=== PATIENT | male | born 1955 | race Caucasian/White ===

== ENCOUNTER 2022-01-18 08:59 | Outpatient (CLI) | payer OTHER, SELFPAY | END 2022-01-18 09:00 | disposition home or self-care (01) | PROVIDERS: PCP Family Medicine; Visit Provider Nurse Practitioner Family | DX: L97.515 Non-pressure chronic ulcer of other part of right foot with muscle involvement without evidence of necrosis (principal); S80.811A Abrasion, right lower leg, initial encounter; I73.9 Peripheral vascular disease, unspecified; L97.422 Non-pressure chronic ulcer of left heel and midfoot with fat layer exposed; R26.9 Unspecified abnormalities of gait and mobility | CPT/HCPCS: 11042 ==

== ENCOUNTER 2022-01-31 08:52 | Outpatient (CLI) | payer OTHER, MEDICARE, SELFPAY | END 2022-01-31 08:53 | disposition home or self-care (01) | LOC: WOUND 08:52 | PROVIDERS: PCP Family Medicine; Visit Provider Nurse Practitioner Family | DX: L97.815 Non-pressure chronic ulcer of other part of right lower leg with muscle involvement without evidence of necrosis (principal); L89.613 Pressure ulcer of right heel, stage 3; S91.302A Unspecified open wound, left foot, initial encounter | CPT/HCPCS: 11042; 11043 ==

== ENCOUNTER 2022-02-14 09:59 | Outpatient (CLI) | payer OTHER, MEDICARE, SELFPAY | END 2022-02-14 10:00 | disposition home or self-care (01) | LOC: WOUND 09:59 | PROVIDERS: PCP Family Medicine; Visit Provider Nurse Practitioner Family | DX: L89.893 Pressure ulcer of other site, stage 3 (principal); L89.899 Pressure ulcer of other site, unspecified stage; L97.815 Non-pressure chronic ulcer of other part of right lower leg with muscle involvement without evidence of necrosis | CPT/HCPCS: 11042 ==

== ENCOUNTER 2022-02-21 08:58 | Outpatient (CLI) | payer OTHER, SELFPAY | END 2022-02-21 08:59 | disposition home or self-care (01) | PROVIDERS: PCP Family Medicine; Visit Provider Nurse Practitioner Family | DX: L89.613 Pressure ulcer of right heel, stage 3 (principal); L97.422 Non-pressure chronic ulcer of left heel and midfoot with fat layer exposed; L97.815 Non-pressure chronic ulcer of other part of right lower leg with muscle involvement without evidence of necrosis | CPT/HCPCS: 11042 ==

== ENCOUNTER 2022-02-28 08:53 | Outpatient (CLI) | payer OTHER, SELFPAY | END 2022-02-28 08:54 | disposition home or self-care (01) | PROVIDERS: PCP Family Medicine; Visit Provider Nurse Practitioner Family | DX: L89.613 Pressure ulcer of right heel, stage 3 (principal); L97.422 Non-pressure chronic ulcer of left heel and midfoot with fat layer exposed; L97.815 Non-pressure chronic ulcer of other part of right lower leg with muscle involvement without evidence of necrosis | CPT/HCPCS: 11042; 11045 ==

== ENCOUNTER 2022-03-07 09:53 | Outpatient (CLI) | payer OTHER, SELFPAY | END 2022-03-07 09:54 | disposition home or self-care (01) | LOC: LAB 09:54 | PROVIDERS: PCP Family Medicine; Visit Provider Nurse Practitioner Family | DX: S81.801A Unspecified open wound, right lower leg, initial encounter (principal) | CPT/HCPCS: 87070; 87186 ==

== ENCOUNTER 2022-03-07 13:20 | Outpatient (CLI) | payer OTHER, MEDICARE, SELFPAY | END 2022-03-07 13:21 | disposition home or self-care (01) | LOC: WOUND 13:20 | PROVIDERS: PCP Family Medicine; Visit Provider Nurse Practitioner Family | DX: L89.613 Pressure ulcer of right heel, stage 3 (principal); L97.515 Non-pressure chronic ulcer of other part of right foot with muscle involvement without evidence of necrosis; L97.815 Non-pressure chronic ulcer of other part of right lower leg with muscle involvement without evidence of necrosis; L97.422 Non-pressure chronic ulcer of left heel and midfoot with fat layer exposed; I73.9 Peripheral vascular disease, unspecified | CPT/HCPCS: 11042; 11043; 11046; 87070; 87186 ==

== ENCOUNTER 2022-03-21 08:57 | Outpatient (CLI) | payer OTHER, SELFPAY ==
--- NOTE | 2022-03-21 10:00 | CRLHL7_ITS ---
For Patients: As a result of the Century Cures Act, medical imaging exams and procedure reports are released immediately into your electronic medical record. You may view this report before your referring provider. If you have questions, please contact your health care provider. Indication: Pressure ulcer of the right heel, stage IV. Technique: Two views. Comparison: Foot radiographs 11/30/2020. Findings/Impression: Deep posterior heel ulceration that likely extends to the bone. No discernible osseous destruction or erosion on radiograph. Generalized osseous demineralization. If concern for osteomyelitis consider MRI for further evaluation. Dictated by Derrick Francois MD @ 03/21/2022 10:51:35 AM (Electronically Signed)
== END 2022-03-21 08:58 | disposition home or self-care (01) ==
PROVIDERS: PCP Family Medicine; Visit Provider Nurse Practitioner Family
DX: L89.614 Pressure ulcer of right heel, stage 4 (principal); L97.422 Non-pressure chronic ulcer of left heel and midfoot with fat layer exposed; S80.811A Abrasion, right lower leg, initial encounter; I73.9 Peripheral vascular disease, unspecified
CPT/HCPCS: 11042; 11043; 11045; 11046; 73650; 97597

== ENCOUNTER 2022-03-29 09:01 | Outpatient (CLI) | payer OTHER, SELFPAY ==
--- NOTE | 2022-03-29 15:00 | CRLHL7_ITS ---
For Patients: As a result of the Century Cures Act, medical imaging exams and procedure reports are released immediately into your electronic medical record. You may view this report before your referring provider. If you have questions, please contact your health care provider. Indication: Pressure ulcer of the right heel stage IV. Technique: CT of the right ankle following the intravenous administration of 65 cc Isovue 370.: Sagittal reformations were performed. Please note that all CT scans at this facility use dose modulation, iterative reconstruction, and/or weight-based dosing when appropriate to reduce radiation dose to as low as reasonably achievable. Comparison: Radiographs 03/21/2022 and 11/30/2000. Findings: Postsurgical change of posterior calcaneal resection. There is a medial posterior pressure ulcer which extends to the residual calcaneus medially. No evidence of osseous erosion or destruction. No fracture. Diffuse generalized osseous demineralization. Talonavicular osteoarthritis. Mild tibiotalar osteoarthritis. Diffuse subcutaneous soft tissue swelling throughout the lower leg, ankle, and foot. No subcutaneous gas. No radiopaque foreign bodies. Vascular calcifications. Impression: 1. Postsurgical change of posterior calcaneal resection. No osseous erosion or destruction to have diagnosis osteomyelitis on CT. However, the posterior medial ankle pressure ulcer extends all the way to the residual calcaneus posterior medially (series 6, image 42). 2. Diffuse nonspecific edema throughout lower leg, ankle, and foot. Correlate for cellulitis. No subcutaneous gas. Please note that all CT scans at this facility use dose modulation, iterative reconstruction, and/or weight-based dosing when appropriate to reduce radiation dose to as low as reasonably achievable. Dictated by Derrick Francois MD @ 03/30/2022 10:09:11 AM (Electronically Signed)
[2022-03-29 16:06] LABS: Creatinine* 0.5 mg/dL (0.5-1.5); Estimated Glomerular Filt Rate 111 ml/min
== END 2022-03-29 09:02 | disposition home or self-care (01) ==
PROVIDERS: PCP Family Medicine; Visit Provider Nurse Practitioner Family
DX: L89.614 Pressure ulcer of right heel, stage 4 (principal); L97.422 Non-pressure chronic ulcer of left heel and midfoot with fat layer exposed; S80.811A Abrasion, right lower leg, initial encounter
CPT/HCPCS: 11042; 11043; 11045; 11046; 36415; 73701; 82565; Q9967

== ENCOUNTER 2022-04-04 10:38 | Outpatient (CLI) | payer OTHER, SELFPAY ==
--- OUTSIDE RECORDS SUMMARY | 2022-04-04 10:55 | XMS_ITS | Encounter Summary ---
:1955 Author Organization [facility] Address [address] [place] [address] Phone Care Team Providers Name Role Phone Lila Clay PT Unavailable Reason for Visit Prior Authorization (Routine) - Closed Specialty Diagnoses / Procedures Referred By Contact Refer red To Contact Physical Therapy / Diagnoses Quadriplegia () At high risk for skin breakdown Impaired mobility Provider, Outside Lila Clay, PHYSICAL MEDICINE AND Procedures PT TREATMENT PLAN OUTSIDE PROVIDER PT REHAB [address] [address] Phone: Fax: Referral ID Status Reason Start Date Expiration Date Visits Requ ested Visits Authorized [id number] Closed 05/05/2021 01/20/2022 12 12 Encounter Details Date Type Department Care Team Description 08/11/2021 Hospital Encounter Clinic & Specialty Provider, [place] [address] No Show Center Router Operator Radial apy Lila Clay, PT [address] [place] [address] Social History Tobacco Use Types Packs/Day Years Used Date Smoking Tobacco: Former Cigarettes Cigars Smokeless Tobacco: Never Alcohol Use Standard Drinks/Week Comments Yes 3.3 (1 standard drink = 0.6 oz pure alco hol) once in while Sex Assigned at Date Recorded Not on file documented as of this encounter Medications at Time of Discharge Medication Sig Dispensed Refills Start Date End Date oxybutynin (DITROPAN XL) SMARTSIG:By Mouth 0 03/2021 15 mg oral tablet 24 HR propantheline TAKE 1 TABLET BY 540 tablet 3 03/26/201909/02 (PRO-BANTHINE) 15 mg oral MOUTH THREE TIMES tablet DAILY. MAY TAKE 2 TABLETS 3 TIMES DAILY FOR BLADDER SPASMS documented as of this encounter Progress Notes Lila Clay, PT - 08/11/2021 8:00 AM CST Pt cancelled today's scheduled PT treatment session, the lift on his accessible van is broken and heis unable to drive to today's appt. Rescheduled, per his request, with this therapist. Lila Clay PT [facility] License: #[id number] Pager: [phone] Office: [phone] F TECHNICIAN documented in this encounter Plan of Treatment Not on filedocumented as of this encounter Visit Diagnoses Not on filedocumented in this encounter Care Teams Case Resolution Specialist Relationship Specialty Start Date End Date Lila Clay, PT Physical Therapist Physical Therapy 04/05/21 [address] [place] [address] documented as of this encounter
--- OUTSIDE RECORDS SUMMARY | 2022-04-04 10:55 | XMS_ITS | Encounter Summary ---
:1955 Author Organization [facility] Address [address] [place] [address] Phone Care Team Providers Name Role Phone Lila Clay PT Unavailable Reason for Visit Prior Authorization (Routine) - Auth Not Needed Specialty Diagnoses / Procedures Referred By Contact Refer red To Contact Physical Medicine and Diagnoses Quadriplegia, unspecified Quadriplegia, C5-C7 incomplete Muscle spasticity [M62.838] (Reminder letter sent 09/29/21 cl) Zev Alvarez MD Rehab / NEUROLOGY [facility] Procedures [facility] - [facility] [address] [address] [place] [address] Phone: Fax: Referral ID Status Reason Start Date Expiration Date Visits V isits Requested Authorized [id number] Auth Not 1 2 Needed Encounter Details Date Type Department Care Team Description 10/21/2021 Hospital Encounter Clinic & Specialty Zev Alvarez , Non Billable Center [facility] [address] [place] [address] [address] [place], [place] [phone] (Wo rk) Social History Tobacco Use Types Packs/Day Years Used Date Smoking Tobacco: Former Cigarettes Cigars Smokeless Tobacco: Never Alcohol Use Standard Drinks/Week Comments Yes 3.3 (1 standard drink = 0.6 oz pure alco hol) once in while Sex Assigned at Date Recorded Not on file COVID-19 Exposure Response Date Recorded In the last 10 days, have you been in contact with No / Unsu re 10/21/2021 9:12 AM CDT someone who was confirmed or suspected to have Coronavirus/COVID-19? documented as of this encounter Medications at Time of Discharge Medication Sig Dispensed Refills Start Date End Date nitrofurantoin (MACRODANTIN) Take 50 mg by mouth 0 08/25/2021 50 mg oral capsule daily. 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 He was seen by JUSTIN Israel on 09/02/21 and was noted to have contracture of his right knee and was referred for Botox to determine if this could be beneficial for his right leg. He notes that he had a surgical resection of his right ankle around 2018 and since then, noted inability to extend out his right leg. This has been bothersome as he cannot stand (such as in a standing frame with PT). He did receive a trial of 200 units of botox to his right leg on 07/08/2019 at [facility] (Administered as 100 BF, 50 SM, [address] It was noted on exam that his MAS of knee extension was 3.Randy does not feel that it helped at all. It does not interfere with his cares of doing straight cathfor his bladder. He denies any pain or spasms in either of his legs. He does note that his right leg adducts in more and rubs against his knees when he is in the chair.When he is lying down his right leg turns out more and he doesn't have the rub. He has not trialed any items such as a spacer foam pads (although does describe using some pads for positioning at night). Current Spasticity/Dystonia Medications: none Bleeding Risk: none Currently on antibiotics: nitrofurantoin 50 mg daily to reduce UTI Vaccines in the past 2 weeks: none Objective: Gen: NAD, awake and alert, sitting in wheelchair HEENT: AT/NC, FAWAD, no obvious thyromegaly Resp: Nonlabored at rest, able to speak in full sentences Neurological: CN II-XII grossly intact MS: BUE are greater than antigravity. BLE are flaccid. Reflexes: no ankle clonus noted Skin: no erythema, eccymoses, or other concerning signs of infection over injection sites noted MSK: BLE are noted to be very atrophic with reduced muscle bulk. Right leg is noted to be adducted past midline. Passively, right knee was only able to be extended to approx 45 degrees of Knee Flexion, without any change in tone noted in the remaining range. -Hip Flexion: 0/4 B -Hip Extension: NT -Hip Abduction: 1+/4 B -Hip Adduction: 0/4 B -Hip IR: 0/4 B -Hip ER: 2/4 B -Knee Flexion: 0/4 B -Knee Extension: 4/4 R, 1+/4 L -Dorsiflexion: 0/4 B -Plantarflexion: 0/4 B Assessment and Plan: Khanh Rene is a 66 year old gentleman with incomplete C7 AIS B since 1988 with complication sof neurogenic bladder, bowel, skin injuries, autonomic dysreflexia, and contracture of his right knee. On exam today, the right knee is only able to extend to 45 degrees of flexion without any changein tone in the remaining range. This is most likely a contracture given that he does have tone in other muscle groups. As such, injection with botulinum toxin would not be of significant benefit at this time, especially given that a previous dose in 2019 did not demonstrate any change. Surgical options were discussed and he is not interested in pursuing surgery at this time. Randy does have some increased adductor tone to his right thigh and discussed possible botulinum toxins there to prevent further rubbing of his knees together, however, as he has not trialed any foam spacers or modifications, it was recommended that botulinum toxin be kept as a back-up, in case either of those options remained. Randy was agreeable to this plan and plans to follow up with JUSTIN Israel for further management of his chronic SCI cares. No unanswered questions. 1. Right Knee Contracture: not recommended for botulinum toxin due to unlikelihood of benefit. 2. Right Thigh Adductor hypertonicity: consider botulinum toxin if noting skin injuries to medial knees or problems with straight cathing/ADLs due to increased tone. Pt was seen and discussed with Dr. Kim Ash, PGY-5, [facility] Brain Injury Fellow Pager# [phone] Associated attestation - Zev Alvarez MD - 10/21/2021 3:23 PM CDT FACULTY NOTE I saw and evaluated the patient today, 10/21/2021. I discussed with the fellow and agree with the fellow???s findings and plan documented in the fellow's note from above. Any revisions by me are documented. Zev Alvarez MD, 10/21/2021 3:23 PM documented in this encounter Plan of Treatment Not on filedocumented as of this encounter Visit Diagnoses Not on filedocumented in this encounter Care Teams Engineering Psychologist Relationship Specialty Start Date End Date Lila Clay, PT Physical Therapist Physical Therapy 04/05/[address] [place] [address] documented as of this encounter
--- OUTSIDE RECORDS SUMMARY | 2022-04-04 10:55 | XMS_ITS | Encounter Summary ---
:[address] [facility] Address [address] [place] [address] Phone Care Team Providers Name Role Phone Lila Clay PT Unavailable Encounter Details Date Type Department Care Team Description 10/21/2021 Travel Social History Tobacco Use Types Packs/Day Years [...] have Coronavirus/COVID-19? documented as of this encounter Plan of Treatment Not on filedocumented as of this encounter Visit Diagnoses Not on filedocumented in this encounter Care Teams Neuro Psych Sales Specialist Relationship Specialty Start Date End Date Lila Clay, PT Physical Therapist Physical Therapy 04/05/21 [address] [place] [address] documented as of this encounter
--- OUTSIDE RECORDS SUMMARY | 2022-04-04 10:55 | XMS_ITS | Encounter Summary ---
:1955 Author Organization [facility] Address [address] [place] [address] Phone Care Team Providers Name Role Phone Provider, Outside Primary Care Provider Unavailable Encounter Details Date Type Department Care Team Description 01/02/2018 Nurse Triage Clinic [facility] Center Farida Dueñas, supervisor telephone information Clinic [address] [address] [place], [place] [address] Social History Tobacco Use Types Packs/Day Years Used Date Smoking Tobacco: Former Cigarettes Cigars Smokeless Tobacco: Never Alcohol Use Standard Drinks/Week Comments Yes 3.3 (1 standard drink = 0.6 oz pure alco hol) once in while Sex Assigned at Date Recorded Not on file documented as of this encounter Plan of Treatment Not on filedocumented as of this encounter Visit Diagnoses Not on filedocumented in this encounter Care Teams Optician Relationship Specialty Start Date End Date Provider, Outside PCP - General 03/13/09 10/22/18 [place] [address] documented as of this encounter
--- OUTSIDE RECORDS SUMMARY | 2022-04-04 10:55 | XMS_ITS | Clinical Summary ---
:1955 Author Organization [facility] [place] [address] Care Team Providers Name Role Phone Ana Mayers Unavailable Alex Mata MD Primary Care Provider [phone] Allergies Active Allergy Reactions Severity Noted Date Comments Blood-Group Specific Other - Describe In 04/19/2021 Patient has Levi saucedo Substance Comment Field (Fya) antibody . Blood products may be delayed. Dra renee patient 24 hour s prior to transfusion. Fo r [employer] testing, draw o ne red top and two purple top tube s for all Type and Sc reen orders. Cephalexin Diarrhea, Vomiting 01/02/2007 11/19/15: pt states not a true dinh rgy Shellfish Containing Diarrhea, Nausea And 09/09/2010 Iodine in products Products Vomiting Medications Medication Sig Dispensed Refills Start Date End Date Status hospital As directed. 1 Device 0 12/31/2019 Active bedIndications: Stage Hospital bed, IV pressure ulcer of w/mattress, Semi sacral region (HC) Electric, 1/2 rails, SHAGUFTA: 99mo. oxybutynin (DITROPAN Twice A Day 0 05/13/2020 Active XL) 15 mg CR tablet rx Take 1 tablet by 14 tablet 0 09/22/2020 Ac tive trimethoprim-sulfametho mouth 2 times xazole, 160-800 mg, daily. (BACTRIM DS, SEPTRA DS) tablet (ED DC MED)Indications: Recurrent UTI nitrofurantoin Take 50 mg by 0 A ctive macrocrystaL mouth once (MACRODANTIN) 50 mg daily. capsule clopidogreL (PLAVIX) 75 Take 1 Tablet 120 Tablet 0 04/19/2021 Active mg tabletIndications: (75 mg) by mouth PAD (peripheral artery once daily. disease) (HC) aspirin (ECOTRIN) 81 mg Take 1 Tablet 120 Tablet 0 04/19/2021 Active enteric coated (81 mg) by mouth tabletIndications: PAD once daily with (peripheral artery a meal. disease) (HC) Active Problems Problem Noted Date S/P flap graft 03/06/2020 Stage IV pressure ulcer of sacral region 12/02/2019 Neurogenic orthostatic hypotension 05/08/2016 Normocytic anemia 05/03/2016 S/P colostomy 03/14/2016 MRSA (methicillin resistant Staphylococcus aureus) Overview: sacral ulcer Pacemaker battery depletion 12/21/2012 S/P dual chamber permanent pacemaker generator change on 12/21/2012 12/21/2012 Dual Chamber Pacemaker 07/14/2008 07/15/2008 Overview: Placed for severe bradycardia with high degree AVB. Bradycardia 07/14/2008 Overview: -probable 3rd degree AVB -requiring ongoing transcutaneous pacin g 07/14/2008 Syncope 07/13/2008 07/14/2008 Overview: Associated with complete heart block 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 1988 Occassional UTI 07/14/2008 Overview: -chronic macrodantin therapy QOD Family history of ischemic heart disease 07/14/2008 History of tobacco use 07/14/2008 Overview: -occassional cigar Resolved Problems Problem Noted Date Resolved Date Leg wound, right 12/24/2019 02/25/2020 Open wound of left heel 12/24/2019 02/25/2020 Pressure ulcer of ischial area, stage 4 12/15/2015 02/25/2020 Stage III pressure ulcer of left heel 12/01/2015 Stage III pressure ulcer of left buttock 11/19/2015 01/29/2016 Decubitus ulcer of right ankle, stage 3 10/02/2014 01/29/2016 Stage IV pressure ulcer of hip 11/15/2011 6 Overview: Underwent flap closure of left IT pressu re ulcer by Dr. Bubba Jerez 06/13/11. Pressure ulcer stage IV 11/15/2011 11/19/2015 Overview: Coccyx - first noted 10/02. Osteomyelitis, chronic, pelvic region 05/24/2011 Overview: Noted on bone scan 04/07/11 involving bot h ischial regions Flap repair of bilateral ischial ulcers 06/13/2011 Immunizations Name Administration Dates Next Due Hepatitis A (Adult) 11/19/2004, 05/01/2003, 09/30/2002 Hepatitis B (Adult) 03/30/2007, 09/01/2006, 11/19/2004 Inactivated Polio Vaccine 11/19/2004 Influenza Virus, Unspecified 05/24/2006 Influenza, IIV3 (Age 6-35 mos) 05/24/2012, 03/25/2011 Influenza, IIV3 (Age >=3 years) 03/25/2011 Td (Age >=7 Years) 03/21/1997 Tdap 12/26/2008, 09/01/2006 Typhoid, Unspecified 09/01/2006, 09/30/2002 Zoster (Zostavax-ZVL, live) 01/29/2015 Family History Medical History Relation Name Comments Hypertension Brother 1 Stroke Brother 1 Heart Disease Brother 2 2 stents placed 03/2019 Heart Disease Father pacer placed. Hyperlipidemia Father Arthritis Mother Heart Disease Mother Other Other heart problems o n pat and mat side & oldest brother Relation Name Status Comments Brother 1 Alive Brother 2 Alive Brother 3 Alive Father (Age 82) Heart Disease? Mother Alive Other Sister 1 Alive Sister 2 Alive Social History Tobacco Use Types Packs/Day Years Used Date Former Smoker Cigars Quit: 12/24/18 99 Smokeless Tobacco: Never Used Tobacco Cessation: Counseling Given: Yes Comments: occ cigar which is rarely Alcohol Use Standard Drinks/Week Comments Yes 0 (1 standard drink = 0.6 oz pure alcoho l) occ Alcohol Habits Answer Date Recorded How often do you have a drink containing alcohol? 2-3 times a week 12/11/2018 How many drinks containing alcohol do you have on a 1 or 2 12/11/2018 typical day when you are drinking? How often do you have six or more drinks on one Never 12/11/2018 occasion? Comment: valerie 12/24/2008 Sex Assigned at Date Recorded Not on file Obstetrics History Last Filed Vital Signs Vital Sign Reading Time Taken Comments Blood Pressure 97/63 04/28/2021 11:04 AM CDT Pulse 85 04/28/2021 11:04 AM CDT Temperature 35.2 ??C (95.4 ??F) 04/19/2021 7:02 AM CDT Respiratory Rate 16 04/19/2021 12:30 PM CDT Oxygen Saturation 95% 04/28/2021 11:04 AM CDT Inhaled Oxygen Concentration - - Weight 62.6 kg (138 lb) 04/19/2021 6:40 AM CDT Height 182.9 cm (6') 04/19/2021 6:40 AM CDT Body Mass Index 18.72 04/19/2021 6:40 AM CDT Plan of Treatment Health Maintenance Due Date Last Done Comments Hepatitis C screening for age 18-79 1972 Colonoscopy through age 75 1999 AAA screening age 55-77 2009 Lipids for age 45-75 07/14/2013 07/14/2008 Zoster (shingles) series for age 50+ 03/26/2015 01/29/2015 (2 of 3) Depression screening for age 12+ 08/15/2018 08/15/2017 Tetanus booster 12/26/2018 12/26/2008, 09/01/2006, 03/21/1997 Medicare Wellness for age 65+ 2019 Pneumococcal series for age 65+ (1 - 2019 PCV) COVID-19 vaccine series (3 - Booster 02/11/2021 09/14/2020, 08/20/2020 for Pfizer series) Influenza for age 65+ 03/24/2022 03/25/2011, 05/24/2006 Tdap Completed 12/26/2008, 09/01/2006 Medical Devices Implanted Type Area Labor Law Professor Device Shelf Model / Identifier Expiration Serial / Date Lot Standard Pacemaker-12/21/2012 Standard Medtronic [id number] / Implanted: 12/21/2012 by Judson Jenkins MD (Quantity not on file) Pacemaker [id number] / Results Not on filefrom Last 3 Months Additional Health Concerns Infection Onset Date Last Indicated MRSAComment: Order contact precautions. 12/17/2015 12/17/2015 8.14.20 pt has wound ineligible for screening cultures Nares surveillance cultures needed to cl ear patient if <12 months since positive culture. If >12 months since positive culture, precautions can be discontinued if patient has no MRSA risk factors. #1 +MRSA n/a exclusions for contact precaution dis continuation (if > 12 months since positive culture): resides in acute/detention care, receiving hemodialysis, has chronic open wounds/skin damage, has long-te rm percutaneous indwelling medical devic es Exclusions for nares collection (if <12 months since positive culture) include all of the previous exclusions plus patients on antibiotics 7 days prior to collection Insurance Payer Benefit Plan / Subscriber ID Effective Dates Phone Addre ss Type Group WC WORKERS COMP [facility] [id number] 1989-Prese C/O [place] [employer] [address] [place] [address] WC WORKERS COMP [facility] [id number] 1989-Prese C/O [employer] [address] [place] [address] MEDICARE PART A - MEDICARE PART [id number] 1991-Presen ATTN: CLAIMS HB USE ONLY A HB ONLY t [address] [place] [address] [facility] MR [id number] 2020-Presen [address] [address] [place] [address] Khanh Rene Workers Comp Self 1955 [id number] [employer] [place] [id number] Khanh Rene Workers Comp Self 1955 [id number] [employer] [place] [address] Khanh Rene Personal/Family Self 1955 [id number] [employer] [address] [place] [id number] Advance Directives Latest Code Status on File Code Status Date Activated Date Inactivated Comments Full Code 03/05/2020 6:59 AM 03/09/2020 8:07 PM Code Status Discussion: Not Discussed Full Code 04/25/2016 3:57 PM 05/10/2016 8:47 PM Full Code 2016 6:44 AM 03/14/2016 5:37 PM Full Code 12/16/2015 12:49 PM 12/25/2015 1:24 PM Full Code 12/15/2015 3:46 PM 12/16/2015 12:49 PM Care Teams Fermenter Helper Relationship Specialty Start Date End Date Alex Mata MD PCP - General Family Practice 02/04/201999 [place] [address] Ana Mayers Nurse Practitioner 03/02/[address] [place] [address]
--- OUTSIDE RECORDS SUMMARY | 2022-04-04 10:55 | XMS_ITS | Encounter Summary ---
:1955 Author Organization [facility] [place] Address [address] [place] [address] Phone Care Team Providers Name Role Phone Provider, Outside Primary Care Provider Unavailable Reason for Visit Reason Comments Follow-up NEUROGENIC BLADDER Encounter Details Date Type Department Care Team Description 09/15/2016 Office Visit [facility] [place] [facility] Monty Garcia Neur ogenic bladder Yordy FALCON (Primary Dx) [address] , [address] [place] [address] [address] [place], [place] [phone] Social History Tobacco Use Types Packs/Day Years Used Date Smoking Tobacco: Former Cigarettes Cigars Smokeless Tobacco: Never Alcohol Use Standard Drinks/Week Comments Yes 3.3 (1 standard drink = 0.6 oz pure alco hol) once in while Sex Assigned at Date Recorded Not on file documented as of this encounter Last Filed Vital Signs Vital Sign Reading Time Taken Comments Blood Pressure 129/74 09/15/2016 8:09 AM CHILDCARE PROVIDER Pulse 75 09/15/2016 8:09 AM CHILDCARE PROVIDER Temperature 36.2 ??C (97.1 ??F) 09/15/2016 8:09 AM CHILDCARE PROVIDER Respiratory Rate - - Oxygen Saturation - - Inhaled Oxygen Concentration - - Weight - - Height - - Body Mass Index - - documented in this encounter Progress Notes Monty Garcia MD - 09/15/2016 8:00 AM CST Images from the original note were not included. Urology Clinic - Follow-up Visit Khanh Rene : 1955 Sex: male 09/15/2016 08:19 Date of Visit: 09/15/2016 Primary care provider: Outside Provider HPI: This 61 y.o. male is being seen at this time for follow-up. He is a former patient of my now retiredcollmedardo Savage, and I am meeting him for the first time today. He has a history of paraplegia from a fall in 1988. 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 He has been managing his bladder in a steady way for many years now. He self caths depending on how much he is drinking, but usually about 6 times per day, very seldom will he have leakage between. He uses a 14 Fr straight catheter, and has for years. Patient denies foul smelling urine or fevers. Patient has had several admissions at [facility] for decubitus ulcers in the last year. He is s/p colostomy and debridement and closure of left ischial tuberosity wound by plastic surgery. Patient reports that is ulcer has healed. Patient also needs refills of medications. States that he has been on Macrobid prophylaxis (every other day dosing) for about 27 years. A review of the patient's chart was completed pertaining to today's clinic visit. Past Medical History Diagnosis Date ??? Autonomic dysreflexia H/o ??? DVT 1983 ??? Neurogenic bladder H/o 1SL ??? Neurogenic bowel ??? 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 Screening for prostate cancer 04/01/2010 Past Surgical History Procedure Laterality Date ??? Colostomy 02/2016 Current Outpatient Prescriptions on File Prior to Visit Medication Sig Dispense Refill ??? propantheline (PRO-BANTHINE) 15 mg oral tablet TAKE 1 TABLET BY MOUTH THREE TIMES DAILY. MAY TAKE 2 TABLETS 3 TIMES DAILY FOR BLADDER SPASMS 90 tablet 0 ??? nitrofurantoin (MACRODANTIN) 50 mg oral capsule Take 1 capsule (50 mg) by mouth Every forty-eight hours. 15 capsule 0 No current facility-administered medications on file prior to visit. Allergies: Amoxicillin-pot clavulanate; Cephalexin monohydrate; Iodine tincture; and Shellfish allergy Family History: No pertinent urologic family history. Social History: Social History Substance Use Topics ??? Smoking status: Former Smoker Types: Cigars, Cigarettes ??? Smokeless tobacco: Never Used ??? Alcohol use 2.0 oz/week 4 Shots of liquor per week Comment: once in while ROS: A complete 10 point ROS neg except for that stated in HPI PE Vitals: 09/15/16 0809 BP: 129/74 Cuff Location: Left Arm Patient Position: Sitting Cuff Size: Adult - regular Pulse: 75 Temp: 36.2 ??C (97.1 ??F) General: Well-appearing, sitted in a wheelchair HEENT: Head AT/NC, mucous membranes moist, neck supple, no thyromegaly Neuro: A/O x 3 Pulmonary: Normal respiratory effort Abdominal: soft, non-tender, non-distended. Left colostomy in place. Lymphatic: No LE edema Skin: No obvious lesions Psych: Normal mood and affect Labs: Reviewed PSA: PSA Diagnostic Date Value Ref Range Status 09/19/2001 0.5 0.00 - 4.00 NG/ML Final PSA Screen Date Value Ref Range Status 04/01/2010 1.25 0.00 - 4.00 NG/ML Final 01/24/2008 2.38 0.00 - 4.00 NG/ML Final Urinalysis: Lab Results Component Value Date/Time PROTEINUR NEGATIVE 09/03/2012 1422 GLUUR NEGATIVE 09/03/2012 1422 KETONES NEGATIVE 09/03/2012 1422 BLOODUA NEGATIVE 09/03/2012 1422 BILIUA NEGATIVE 09/03/2012 1422 SPG 1.016 09/03/2012 1422 WBCUR 6-20 (A) 09/03/2012 1422 RBCUR 0-5 09/03/2012 1422 APPEAR CLEAR 09/03/2012 1422 NITRITE NEGATIVE 09/03/2012 1422 COLOR YELLOW 09/03/2012 1422 MICRO 01/29/2001 1537 SQEPITH 2+ 09/03/2012 1422 TRANEPI 1+ 01/29/2001 1537 UROBILINOGIN 1.0 09/03/2012 1422 LET SMALL (A) 09/03/2012 1422 Blood Labs: Lab Results Component Value Date/Time WBC 5.3 09/17/2010 0944 HGB 11.8 (L) 09/17/2010 0944 HCT 36.4 (L) 09/17/2010 0944 PLT 308 09/17/2010 0944 Electrolytes: Lab Results Component Value Date CR 0.29 (L) 01/24/2008 CR <0.5 08/18/2005 Imaging: All of the following imaging and radiology reports and images personally reviewed. No new imaging. Patient will set up an appointment for his renal ultrasound Assessment/Plan: 61 y.o. male with a history of paraplegia, neurogenic bladder here for follow- up. He is doing well overall. Creatinine from care everywhere 04/28/2016 was 0.54. Discussed Macrobid prophylaxis. Studies have shown low risk of infection without antibiotic prophylaxis. Also patient is at risk for bacterial resistance with chronic antibiotic prophylaxis. Patient is agreeable to stopping Macrobid. He will call if he gets any symptoms of a UTI. Will consider restarting prophylaxis if he gets UTIs off prophylaxis. - Did not recommend rechecking a PSA given his other medical issues. -Follow-up in 1 year -Carry out renal ultrasound Almita Aguilar MBBS, 09/15/2016 8:19 AM I saw the patient, reviewed and discussed the patient care with the resident at the time of the visit. Please see resident note in this encounter for details. I agree with the plan. Any changes by me have been noted. Monty Garcia MD, 09/15/2016 9:14 AM Urology Staff Pager: [phone] DCARE PROVIDER documented in this encounter Plan of Treatment Not on filedocumented as of this encounter Visit Diagnoses Diagnosis Neurogenic bladder - Primary Neurogenic bladder, NOS documented in this encounter Care Teams Accounting Advisory Services Manager Relationship Specialty Start Date End Date Provider, Outside PCP - General 03/13/09 10/22/18 [place] [address] documented as of this encounter
--- OUTSIDE RECORDS SUMMARY | 2022-04-04 10:55 | XMS_ITS | Encounter Summary ---
:1955 Author Organization [facility] Address [address] [place] [address] Phone Care Team Providers Name Role Phone Provider, Outside Primary Care Provider Unavailable Reason for Visit Reason Onset Date Comments Refill Request 09/05/2016 Encounter Details Date Type Department Care Team Description 09/05/2016 Refill [facility] [place] Divya Caraballo RN Refill Request [address], [address] [place], [place] [address] [place] [address] Social History Tobacco Use Types Packs/Day Years [...] this encounter Visit Diagnoses Diagnosis Neurogenic bladder Neurogenic bladder, NOS documented in this encounter Care Teams Wool Washer Relationship Specialty Start Date End Date Provider, Outside PCP - General 03/13/09 10/22/18 [place] [address] documented as of this encounter
--- OUTSIDE RECORDS SUMMARY | 2022-04-04 10:55 | XMS_ITS | Encounter Summary ---
:1955 Author Organization [facility] Address [address] [place] [address] Phone Care Team Providers Name Role Phone Provider, Outside Primary Care Provider Unavailable Reason for Visit Reason Onset Date Comments Medication Refill 11/11/2016 propantheline (PRO-B ANTHINE) Encounter Details Date Type Department Care Team Description 11/11/2016 Refill [facility] [place] Urology Clinic Selena Garcia MD Medication Refill [place] [address] [facility] P5 (propantheline [address], [address] [place], [place] (PRO-BANTHINE) ) [place], [place] [phone] (Wo rk) Social History Tobacco Use Types Packs/Day Years Used Date Smoking Tobacco: Former Cigarettes Cigars Smokeless Tobacco: Never Alcohol Use Standard Drinks/Week Comments Yes 3.3 (1 standard drink = 0.6 oz pure alco hol) once in while Sex Assigned at Date Recorded Not on file documented as of this encounter Miscellaneous Notes Telephone Encounter - Marni Chadwick RN - 11/11/2016 1:03 AM CDT D: Patient called. See attached notes below. A: Will route for plan and follow up. R/P: Pending. Summary: patient requesting larger quantity of med Patient: Khanh Rene ??: 1955 ?? Caller is requesting a medication refill. Name of Medication(s): ??propantheline (PRO-BANTHINE) 15 mg oral tablet Pharmacy Name and Location: [facility] [address] [place] [phone] - [address] [place] [address] Phone number for return call: .[phone] Did caller contact the pharmacy? yes: pharmacy told patient to call clinic Patient is using 2 pills 3x daily and is not having enough pills to carry him over for the next month supply since quantity is only 90 patient would like to have a larger quantity prescribed so he can take medication until the end of the month documented in this encounter Plan of Treatment Not on filedocumented as of this encounter Visit Diagnoses Not on filedocumented in this encounter Care Teams Fisher Eel Relationship Specialty Start Date End Date Provider, Outside PCP - General 03/13/09 10/22/18 [place] [address] documented as of this encounter
--- OUTSIDE RECORDS SUMMARY | 2022-04-04 10:55 | XMS_ITS | Encounter Summary ---
:1955 Author Organization [facility] Address [address] [place] [address] Phone Care Team Providers Name Role Phone Lila Clay PT Unavailable Reason for Visit Prior Authorization (Routine) - Closed Specialty Diagnoses / Procedures Referred By Contact Refer red To Contact Physical Therapy / Diagnoses Quadriplegia () At high risk for skin breakdown Impaired mobility Provider, Outside Lila Clay, PHYSICAL MEDICINE AND Procedures PT TREATMENT PLAN OUTSIDE PROVIDER [facility] [address] [address] Phone: Fax: Referral ID Status Reason Start Date Expiration Date Visits Requ ested Visits Authorized [id number] Closed 05/05/2021 01/20/2022 12 12 Encounter Details Date Type Department Care Team Description 06/09/2021 Hospital Encounter Clinic & Specialty Provider, Outside OUTSIDE PROVIDER [address] Director Money apy Lila Clay, PT [id number] [place] [address] Social History Tobacco Use Types Packs/Day Years Used Date Smoking Tobacco: Former Cigarettes Cigars Smokeless Tobacco: Never Alcohol Use Standard Drinks/Week Comments Yes 3.3 (1 standard drink = 0.6 oz pure alco hol) once in while Sex Assigned at Date Recorded Not on file documented as of this encounter Medications at Time of Discharge Medication Sig Dispensed Refills Start Date End Date propantheline TAKE 1 TABLET BY 540 tablet 3 03/26/201909/02 (PRO-BANTHINE) 15 mg oral MOUTH THREE TIMES tablet DAILY. MAY TAKE 2 TABLETS 3 TIMES DAILY FOR BLADDER SPASMS documented as of this encounter Progress Notes Lila Clay, PT - 06/09/2021 8:00 AM CST Images from the original note were not included. PHYSICAL THERAPY DAILY NOTE Khanh Rene : 1955 Gender: male Date of Service: 06/09/2021 Start of Care: 05/05/21 Visit #: 3 Missed Appointments: 0 Referring Diagnosis: Quadriplegia Stage IV pressure ulcer of sacral region S/p flap graft ?? Treatment Diagnosis: Quadriplegia () [G82.50] ??- Primary At high risk for skin breakdown [Z91.89] Impaired mobility [Z74.09] ?? Certification Period: From 05/05/21 to 08/04/21 ?? Onset Date: 04/16/21 (Physician Referral Date) Dates of Recent Hospitalization: None Referring Provider: MD Yamile Alves, HANDSTITCHING MACHINE COLLAR FELLER ?? Current Precautions/Contraindications: At high risk for skin breakdown, s/p flap surgery, current pressure injuries on feet [facility] [place] Supervisor Coffee: no Patient gave two identifiers for Check 2 for Safety Total Treatment Time: 70 Min Pain: No significant complaints during session S: Pt presents to his PT session in his MWC, independently. Also present: Matthew Ricketts/[employer]. Last 30 min of the session, patient's QRC (Raquel Gamino, RN, PHN, MA P: [phone], F: [phone]) No significant changes; still attends wound clinic for B foot injuries weekly - missed yesterday so will be seen later this week. Pt agreed that he would like to try to adjust 1-2 items at a time; assess tolerance, and then move forward with additional changes as appropriate. Noticed that additional 'dump' is 'different' but tolerable. O: [Billable Units/Time] (97135) Wheelchair Management: 70 min Pt remained in MW throughout today's session. +Minimally adjusted tension adjustable backrest - appeared that it had lumbar support added to it, however this was caused by NO contact from patient's lumbar region (so this part of the tension adjustable backrest was still taught/new) whereas the upper portion that patient leans heavily on is hammocking. Assessed additional items to trial to improve overall positioning: +Add seat stabilizer +Increase seat depth - same cushion style, by 2? *Will request a demo from [facility], as PT looked and did not have size/style as demo in clinic +With increased seat depth/cushion, need to discuss options for: front seat frame may need to be longer, to allow footrests to swing in/out as well as lift off (2 of cushion will currently inhibit this). Also, could change back canes to be angle adjustable, or recline - this would require a new back frame to the [facility], but would provide additional depth to the seat as well as potentially improve contact points of back as pt is currently not maximizing this (and bearing more weight on feet and sacral area). With discussion of new front frame, could also change footrests to be angle adjustable and potentially 80 degree hangers instead of current 70 degree hangers. Pt would like to cont to limit overall changes to 1-2 at at time; discussed that he has upcoming appt with orthotics to have custom foot boots made to off load wounds on feet, and this will require f/uwith potential adjustments to footrest heights (and also possible angle adjustable footplate need). Also has upcoming appt with Orthopedics to discuss options for R hip, as pt would like positioning toimprove (currently significantly IR and adducted). Educated that could do a removable pommel, as well as possible build up in cushion - this could not be too aggressive if in a cushion as pt needs to be able to transfer in/out of [facility] independently. At end of session, all agreed that next step will be to obtain a 16 x 20 Joby 2 Deep contour cushion demo - have patient try this first to assess positioning and also pressure map; will plan to see inapproxinately 1 month to assess if this has gone well and if additional changes are needed. Education: As noted above Patient/Caregiver was educated on Purpose and Role of Physical Therapy, Plan of Care, and AttendancePolicy. Patient/Caregiver demonstrated understanding of this education. Goals/Assessment: 1) Patient will demonstrate the ability to utilize appropriate seat functions and adjustments to independently reposition themself throughout the day, to decrease risk of skin breakdown and maximize self management of medical complexities such as LE edema and pressure injuries by 08/04/21. CONT GOAL. A: Patient presents with impairments in posture/positioning, skin integrity and DME/equipment needs that limits his MRADLs per his baseline. Patient's response to interventions this date include: Increased posterior seat dump on [facility] this date and pt tolerated well - multiple additional changes/options were reviewed this date, next step willbe to obtain a demo cushion (longer). Patient will continue to benefit from skilled PT interventions to address these deficits and progress HEP appropriately. P: Continue with the following interventions: Pressure mapping - cushion and footplates Pt to be seen in approximately 1 month - demo 16 X 20 Joby 2 Deep contour cushion to be obtained before then? Lila Clay PT [facility] License: #[id number] Pager: [phone] Office: [phone] FICIAL FLOWERS DYER documented in this encounter Plan of Treatment Not on filedocumented as of this encounter Visit Diagnoses Not on filedocumented in this encounter Care Teams Household Coordinator Relationship Specialty Start Date End Date Lila Clay, PT Physical Therapist Physical Therapy 04/05/[address] [place] [address] documented as of this encounter
--- OUTSIDE RECORDS SUMMARY | 2022-04-04 10:55 | XMS_ITS | Encounter Summary ---
:1955 Author Organization [facility] Address [address] [place] [address] Phone Care Team Providers Name Role Phone Provider, Outside Primary Care Provider Unavailable Reason for Visit Reason Onset Date Comments Refill Request 12/27/2017 propantheline Medication Refill 01/08/2018 propantheline Encounter Details Date Type Department Care Team Description 12/27/2017 Refill Clinic & Specialty Monty Gracia MD Refill Request Center Urology Clini c [address] [facility] P5 (propantheline); [address] Medication Refill [place], [place] [phone] (propantheline) [phone] (Wo rk) Social History Tobacco Use Types Packs/Day Years Used Date Smoking Tobacco: Former Cigarettes Cigars Smokeless Tobacco: Never Alcohol Use Standard Drinks/Week Comments Yes 3.3 (1 standard drink = 0.6 oz pure alco hol) once in while Sex Assigned at Date Recorded Not on file documented as of this encounter Miscellaneous Notes Telephone Encounter - Theresa Roe RN - 01/10/2018 9:22 AM CDT D: Called patient, reached an unidentified VM. Left generic message for pt to call the [facility] and ask for a RN. A/P: When patient returns call please review the note below from Dr Garcia dated 01/08/2018 @ 10:07: This is a little bit of a long story... But this medication should be refilled by his PCP. I have never prescribed this medication before... He thinks he is on it for bladder spasms, but I actually think he has been on it for his diarrhea and bowel issues, which is another issue he has, and the main reason this medication is used. ?? Thanks Monty Garcia MD, 01/08/2018 10:06 AM ?? Telephone Encounter - Katie Bunch RN - 01/09/2018 11:00 AM CDT D: Received another call from patient about his refill. A: Relayed message from Dr. Garcia to patient. This medication was ordered by urology clinic on 12/23/16nd on 11/11/16 and further back. Patient has appt with Dr. Garcia on 02/01/18 and would appreciate at least enough of this to get through until his appt as he says he now is out and has no bladder controlwithout this medicine. R/P: message routed to urology clinic. Telephone Encounter - Kaitlynn Santo RN - 01/09/2018 10:21 AM CDT D received call on My RN Line- Yvonne() following up on refill request. A reviewed chart- no MITCHELL on file. Wale Russell senior copywriter does have message to pass along, but no MITCHELL in the chart and cannot share info due to HIPPA. Charlene Russell said she understood. She requested we call Khanh and let him know the response. High Lift Operator called Khanh and no answer. Left message for him to call back regarding a message on his refill. P await return call Telephone Encounter - Monty Garcia MD - 01/08/2018 10:07 AM CDT Team, This is a little bit of a long story... But this medication should be refilled by his PCP. I have never prescribed this medication before... He thinks he is on it for bladder spasms, but I actually think he has been on it for his diarrhea and bowel issues, which is another issue he has, and the main reason this medication is used. Thanks Monty Garcia MD, 01/08/2018 10:06 AM Telephone Encounter - Catherine Lo RN - 01/08/2018 9:50 AM CDT D: , Yvonne calling regarding medication refill for Propantheline order. Patient is out of medication. Has scheduled f/u appt. With Urology for 02/07/18. A: Forwarding to Urology Clinic, please return call to patient regarding status of this refill request. R/P: Pending Telephone Encounter - Veronika Anaya RN - 01/08/2018 9:43 AM CDT Patient last saw Dr. Garcia 09/15/16. F/u in urology scheduled on 02/01/18. Refill request sent to for review of refill request. Telephone Encounter - Kaitlynn Santo RN - 01/05/2018 3:15 PM CDT D received call on My RN Line- Yvonne()- following up on refill request issue for 2 weeks. Pt has been out since Monday A routed to urology clinic R/Pending Telephone Encounter - Farida Dueñas RN - 01/02/2018 10:27 AM CDT D Spoke with the patient and 's about propantheline order. Per the patient and the pharmacy they do not have an order for this. Epic shows it was ordered 12/23/17 with refills.[facility] will resend. A Forwarded to Urology. R/P pending Telephone Encounter - Katie Bunch, RN - 12/27/2017 9:47 AM CDT D- Received refill request from patient for propantheline. Last ordered 12/23/16 and last office visitwas 09/15/16. Note advised one year follow up. A- Will route refill request to urology clinic. Patient made follow up appt. R/P- Pending. Future Appointments Date Time Provider Department Center 02/01/2018 2:00 PM Monty Garcia MD [facility] UROLOGY [facility] Special documented in this encounter Plan of Treatment Not on filedocumented as of this encounter Visit Diagnoses Not on filedocumented in this encounter Care Teams Automotive Project Engineer Relationship Specialty Start Date End Date Provider, Outside PCP - General 03/13/09 10/22/18 [place] [address] documented as of this encounter
--- OUTSIDE RECORDS SUMMARY | 2022-04-04 10:55 | XMS_ITS | Encounter Summary ---
:[address] [facility] Address [address] [place] [address] Phone Care Team Providers Name Role Phone Unavailable Primary Care Provider Unavailable Reason for Visit Reason Comments Other Encounter Details Date Type Department Care Team Description 03/27/2020 Refill Clinic & Specialty Center Monty Garcia MD Other Urology Clinic [address] [place] [id number] [place] [address] [phone] Social History Tobacco Use Types Packs/Day Years Used Date Smoking Tobacco: Former Cigarettes Cigars Smokeless Tobacco: Never Alcohol Use Standard Drinks/Week Comments Yes 3.3 (1 standard drink = 0.6 oz pure alco hol) once in while Sex Assigned at Date Recorded Not on file documented as of this encounter Miscellaneous Notes Telephone Encounter - Monty Garcia MD - 04/01/2020 7:32 AM CDT This is a bit of a long story, but this medication should be refilled by his PCP if he still needs it. He is overdue for an appointment with me as well. So I will not refill this medication again for him. Monty Garcia MD, 04/01/2020 7:32 AM documented in this encounter Plan of Treatment Not on filedocumented as of this encounter Visit Diagnoses Not on filedocumented in this encounter
--- OUTSIDE RECORDS SUMMARY | 2022-04-04 10:55 | XMS_ITS | Encounter Summary ---
:1955 Author Organization [facility] Address 1 [place] [address] Phone Care Team Providers Name Role Phone Provider, Outside Primary Care Provider Unavailable Reason for Visit Reason Onset Date Comments Other 2018 Encounter Details Date Type Department Care Team Description 2018 Telephone Clinic & Specialty Monty Garcia MD Appointment Center Urology Clini c 701 [facility] P5 Cancellation [address] [phone] (Wo rk) Social History Tobacco Use Types Packs/Day Years Used Date Smoking Tobacco: Former Cigarettes Cigars Smokeless Tobacco: Never Alcohol Use Standard Drinks/Week Comments Yes 3.3 (1 standard drink = 0.6 oz pure alco hol) once in while Sex Assigned at Date Recorded Not on file documented as of this encounter Miscellaneous Notes Telephone Encounter - Shayla Vallecillo - 2018 1:53 PM CDT Called patient and left voicemail that Dr Garcia will be out tomorrow and to call back caryn to reschedule annual f/u w/ him. documented in this encounter Plan of Treatment Not on filedocumented as of this encounter Visit Diagnoses Not on filedocumented in this encounter Care Teams Counter Clerk Relationship Specialty Start Date End Date Provider, Outside PCP - General 8/21/09 4/1/19 [place] [address] documented as of this encounter
--- OUTSIDE RECORDS SUMMARY | 2022-04-04 10:55 | XMS_ITS | Encounter Summary ---
:1955 Author Organization [facility] Address [address] [place] [address] Phone Care Team Providers Name Role Phone Lila Clay PT Unavailable Reason for Visit Prior Authorization (Routine) - Closed Specialty Diagnoses / Procedures Referred By Contact Refer red To Contact Physical Therapy / Diagnoses Quadriplegia () At high risk for skin breakdown Impaired mobility Provider, Outside Lila Clay, PHYSICAL MEDICINE AND Procedures PT TREATMENT PLAN OUTSIDE PROVIDER PT [facility] [address] [address] Phone: Fax: Referral ID Status Reason Start Date Expiration Date Visits Requ ested Visits Authorized [id number] Closed 05/05/2021 01/20/2022 12 12 Encounter Details Date Type Department Care Team Description 06/02/2021 Hospital Encounter Clinic & Specialty Provider, Outside OUTSIDE PROVIDER [address] Handbag Stitcher apy Lila Clay, PT [id number] [place] [address] Social History Tobacco Use Types Packs/Day [...] encounter Progress Notes Lila Clay, PT - 06/02/2021 8:00 AM CST Images from the original note were not included. PHYSICAL THERAPY DAILY NOTE Khanh Rene : 1955 Gender: male Date of Service: 06/02/2021 Start of Care: 05/05/21 Visit #: 2 Missed Appointments: 0 Referring Diagnosis: Quadriplegia Stage IV pressure ulcer of sacral region S/p flap graft ?? Treatment Diagnosis: Quadriplegia () [G82.50] ??- Primary At high risk for skin breakdown [Z91.89] Impaired mobility [Z74.09] ?? Certification Period: From 05/05/21 to 08/04/21 ?? Onset Date: 04/16/21 (Physician Referral Date) Dates of Recent Hospitalization: None Referring Provider: MD Yamile Alves, SCHOOL BUSINESS ADMINISTRATOR ?? Current Precautions/Contraindications: At high risk for skin breakdown, s/p flap surgery, current pressure injuries on feet [facility] Thermostat Mechanic: no Patient gave two identifiers for Check 2 for Safety Total Treatment Time: 60 Min Pain: No significant complaints during session S: Pt presents to his PT session in his MWC, independently. Also present: Matthew Ricketts/[employer]. No significant changes; still attends wound clinic for B foot injuries weekly - discussed that he ishaving difficulty getting some of the recommended supplies (due to actual shortage from suppliers, not because of insurance reasons). Pt agreed that he would like to try to adjust 1-2 items at a time; assess tolerance, and then move forward with additional changes as appropriate. O: [Billable Units/Time] (19752) Wheelchair Management: 60 min Transfer MWC/mat table with CGA/Nava (Le's) direct seated transfer. Pt positioned in supine with (2) pillows under head and (1) pillow under R hip. PT assessed B LE PROM - demonstrated significant hip flexion contractures B. R knee extension to -90degrees from neutral; able to passively achieve hip neutral and also overpressure to achieve hip ER on R side. L knee demonstrates passive - 10 degrees extension (from neutral), hip passive IR/ER WNL. Adjustments made to patient's [facility] this date: +Increased posterior seat dump by 1 +lowered footplates B by approximately 1 Pt returned to sitting in [facility] at end of session, able to self propel - noted immediate different in seat dump/position; will try x1 week (until next visit). Assessed additional items to trial to improve overall positioning: +Add seat stabilizer +Increase seat depth - same cushion style, by 2? +Adjust backrest (remove lumbar support) Educated re: height of back canes - pt asking if they can be taller to provide more support; PT educated that current height is near the distal portion of his scapula, and that if we go higher we couldimpede his scapular movement and therefore limit his propulsion/push stroke. Will cont to assess Education: As noted above Patient/Caregiver was educated [...] date include: Increased posterior seat dump on MW this date and pt tolerated well - will assess after 1 week use to overall positioning, as still requires additional changes for improved posture and pressure redistribution. Patient will continue to benefit from skilled PT interventions to address these deficits and progress HEP appropriately. P: Continue with the following interventions: Pressure mapping - cushion and footplates Additional options: +Add seat stabilizer +Increase seat depth - same cushion style, by 2? +Adjust backrest (remove lumbar support) Lila Clay, PT [employer] [place] License: #[id number] Pager: [phone] Office: [phone] ELLER TESTER documented in this encounter Plan of Treatment Not on filedocumented as of this encounter Visit Diagnoses Not on filedocumented in this encounter Care Teams Manager Medical Device Relationship Specialty Start Date End Date Lila Clay, PT Physical Therapist Physical Therapy 04/05/[address] [place] [address] documented as of this encounter
--- OUTSIDE RECORDS SUMMARY | 2022-04-04 10:55 | XMS_ITS | Encounter Summary ---
:1955 Author Organization [facility] Address [address] [place] [address] Phone Care Team Providers Name Role Phone Unavailable Primary Care Provider Unavailable Encounter Details Date Type Department Care Team Description 08/20/2020 Travel Social History Tobacco Use Types Packs/Day Years Used Date Smoking Tobacco: Former Cigarettes Cigars Smokeless Tobacco: Never Alcohol Use Standard Drinks/Week Comments Yes 3.3 (1 standard drink = 0.6 oz pure alco hol) once in while Sex Assigned at Date Recorded Not on file COVID-19 Exposure Response Date Recorded In the last month, have you been in contact with No / Unsure 08/20/2020 3:15 PM 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 documented as of this encounter Plan of Treatment Not on filedocumented as of this encounter Visit Diagnoses Not on filedocumented in this encounter
--- OUTSIDE RECORDS SUMMARY | 2022-04-04 10:55 | XMS_ITS | Encounter Summary ---
:1955 Author Organization [facility] Address [address] [place] [address] Phone Care Team Providers Name Role Phone Provider, Outside Primary Care Provider Unavailable Reason for Visit Reason Onset Date Comments Medication Problem 01/10/2018 propantheline Encounter Details Date Type Department Care Team Description 01/10/2018 Nurse Triage Clinic & Specialty [facility] Urology Clini c (propantheline) [address] [place] [address] [place] [address]40 4 [place], [place] [phone] Social History Tobacco Use Types Packs/Day Years Used Date Smoking Tobacco: Former Cigarettes Cigars Smokeless Tobacco: Never Alcohol Use Standard Drinks/Week Comments Yes 3.3 (1 standard drink = 0.6 oz pure alco hol) once in while Sex Assigned at Date Recorded Not on file documented as of this encounter Miscellaneous Notes Telephone Encounter - Sumi Ramirez RN - 01/10/2018 12:05 PM CDT D-call from patient. He reports he got message that doctor isn't going to refill propantheline- he states he has been prescribing it to me for years A-upon review of [employer] is was found that Dr Garcia has been prescribing this to patient for several years- last refill was for one year and on December 23 2017- will send this back to the Urology clinic R/P-pending Telephone Encounter - Sumi Ramirez RN - 01/10/2018 12:03 PM CDT Reason for Disposition ??? Caller has URGENT medication question about med that PCP prescribed and triager unable to answerquestion Answer Assessment - Initial Assessment Questions 1. SYMPTOMS: Do you have any symptoms? n/a 2. SEVERITY: If symptoms are present, ask Are they mild, moderate or severe? n/a Protocols used: MEDICATION QUESTION [id number] documented in this encounter Plan of Treatment Not on filedocumented as of this encounter Visit Diagnoses Not on filedocumented in this encounter Care Teams Project Engineer Chemicals Relationship Specialty Start Date End Date Provider, Outside PCP - General 03/13/09 10/22/18 [place] [address] documented as of this encounter
--- OUTSIDE RECORDS SUMMARY | 2022-04-04 10:55 | XMS_ITS | Encounter Summary ---
:1955 Author Organization [facility] Address [address] [facility] 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 documented as of this encounter Plan of Treatment Not on filedocumented as of this encounter Visit Diagnoses Diagnosis COVID-19 Need for vaccination Need for prophylactic vaccination and in oculation against unspecified single disease documented in this encounter
--- OUTSIDE RECORDS SUMMARY | 2022-04-04 10:55 | XMS_ITS | Encounter Summary ---
:1955 Author Organization [facility] Address [address] [place] [address] Phone Care Team Providers Name Role Phone Provider, Outside Primary Care Provider Unavailable Reason for Visit Reason Onset Date Comments Refill Request 10/06/2016 re: Macrodantin Encounter Details Date Type Department Care Team Description 10/06/2016 Telephone [facility] Urology Clinic Divya Avendano Refi ll Request (re: Yordy ASH Macrodantin) [address] [place], [place] [address] [place], [place] [phone] [address] Social History Tobacco Use Types Packs/Day Years Used Date Smoking Tobacco: Former Cigarettes Cigars Smokeless Tobacco: Never Alcohol Use Standard Drinks/Week Comments Yes 3.3 (1 standard drink = 0.6 oz pure alco hol) once in while Sex Assigned at Date Recorded Not on file documented as of this encounter Miscellaneous Notes Telephone Encounter - Divya Avendano RN - 10/06/2016 4:13 PM CDT D: Pt's pharmacy contacted the Urology Clinic for a refill of pts macrodantin. Per Dr. Garcia's last clinic note, Discussed Macrobid prophylaxis. Studies have shown low risk of infection without antibiotic prophylaxis. Also patient is at risk for bacterial resistance with chronic antibiotic prophylaxis. Patient is agreeable to stopping Macrobid. He will call if he gets any symptoms of a UTI. Will consider restarting prophylaxis if he gets UTIs off prophylaxis. A: Called pt to see if he was having UTI symptoms. Reached ANDREW CHAVARRIA requesting return call. R: Awaiting return call. P: Will continue to follow pt's POC. Divya Avendano, RN, 10/06/2016 4:15 PM documented in this encounter Plan of Treatment Not on filedocumented as of this encounter Visit Diagnoses Not on filedocumented in this encounter Care Teams Hot Box Checker Relationship Specialty Start Date End Date Provider, Outside PCP - General 03/13/09 10/22/18 [place] [address] documented as of this encounter
--- OUTSIDE RECORDS SUMMARY | 2022-04-04 10:55 | XMS_ITS | Encounter Summary ---
:1955 Author Organization [facility] Address [address] [place] [address] Phone Care Team Providers Name Role Phone Provider, Outside Primary Care Provider Unavailable Encounter Details Date Type Department Care Team Description 10/07/2016 Hospital Encounter [facility] Ultrasound Monty Garcia MD [address] [place] [address] .[address] [place], [place] [phone] (Wo rk) Social History Tobacco Use Types [...] End Date propantheline TAKE 1 TABLET BY 90 tablet 4 09/15/201611/11 (PRO-BANTHINE) 15 mg oral MOUTH THREE TIMES tablet DAILY. MAY TAKE 2 TABLETS 3 TIMES DAILY FOR BLADDER SPASMS documented as of this encounter Plan of Treatment Not on filedocumented as of this encounter Procedures Procedure Name Priority Date/Time Associated Diagnosis Comme nts ULT KIDNEYS Routine 10/07/2016 1:23 PM Neurogenic bladder Res ults for this COMPLETE CDT procedure are i n the results section. documented in this encounter Results ULT KIDNEYS COMPLETE (10/07/2016 1:23 PM CDT) Anatomical Region Laterality Modality Abdomen Ultrasound Specimen (Source) Anatomical Collection Method Collection Time Re ceived Time Location / / Volume Laterality 10/07/2016 1:20 PM CDT Impressions 10/07/2016 3:49 PM CDT Impression: No hydronephrosis or renal calculi. I have personally reviewed the image(s) and initial interpretation, and I agree with the findings as documented by the resident/fellow. Reading Radiologist: Alex Nava Reading Resident: Lorna Bowens 10/07/2016 3:49 PM CDT History: Nephrolithiasis. Comparison: 05/13/2010 Technique: Mcmanus scale imaging of the kidneys and ur inary bladder Findings: Right kidney: 100 mm x 40 mm x45 mm. Nor mal parenchymal echogenicity. No hydronephrosis or shadowing renal calculi. Left kidney: 116 mm x 56 mm x 47 mm norm al parenchymal echogenicity. No hydronephrosis or shadowing renal calculi. Urinary Bladder: Moderately distended an d unremarkable. Procedure Note Alex Nava MD - 10/07/2016Formatt ing of this note might be different from the original. History: Nephrolithiasis. Comparison: 05/13/2010 Technique: Mcmanus scale imaging of the kidneys and ur inary bladder Findings: Right kidney: 100 mm x 40 mm x45 mm. Nor mal parenchymal echogenicity. No hydronephrosis or shadowing renal calculi. Left kidney: 116 mm x 56 mm x 47 mm norm al parenchymal echogenicity. No hydronephrosis or shadowing renal calculi. Urinary Bladder: Moderately distended an d unremarkable. IMPRESSION Impression: No hydronephrosis or renal c alculi. I have personally reviewed the image(s) and initial interpretation, and I agree with the findings as documented by the resident/fellow. Reading Radiologist: Alex Nava Reading Resident: Lorna Bowens Monty Garcia MD ULT documented in this encounter Visit Diagnoses Diagnosis Neurogenic bladder Neurogenic bladder, NOS documented in this encounter Care Teams Gas Appliance Adjuster Relationship Specialty Start Date End Date Provider, Outside PCP - General 03/13/09 10/22/18 [place] [address] documented as of this encounter
--- OUTSIDE RECORDS SUMMARY | 2022-04-04 10:55 | XMS_ITS | Encounter Summary ---
:1955 Author Organization [facility] Address [address] [facility] [place] [address] Phone Care Team Providers Name Role Phone Lila Clay PT Unavailable Reason for Visit Reason Onset Date Comments Prior Authorization For Medications 09/03/2021 Boto x (onabotulinumtoxinA) Encounter Details Date Type Department Care Team Description 09/03/2021 Pharmacy Prior [facility] P1 Pharmacy Sakshi Mcmanus, Authorization [address] [facility] PharmD P1.630 701 [place], [place] [address] [place], [place] [phone] Social History Tobacco Use Types Packs/Day Years [...] have Coronavirus/COVID-19? documented as of this encounter Progress Notes Sakshi Mcmanus, PharmD - 09/03/2021 2:14 PM CST Coverage Check - BOTOX (onabotulinumtoxinA) NOTE - Patient has insurance coverage with [employer] Medicare Advantage plan and appears to also have a Workman's comp (WC) claim. As of 09/03/2021, the patient has active primary coverage through [facility] ([facility]). [facility] does NOT require prior authorization for BOTOX when it is given in the clinic/infusion center and billed on the medical claim (buy and bill). IMPORTANT - READ BELOW However, [facility] reimburses BOTOX only for select designated ICD-10/Diagnosis Codes. Based on review of the patient's chart, please (continue to) use the following COVERED diagnosis code for the visits in which the patient will receive BOTOX: - G82.50 or G82.54 Quadriplegia Update 01/27/2022 - Unable to get response from [employer]. Per 10/21/2021 note appears patient was going to try other modalities first. Please resend PA request if those are utilized and need to repursueBotox PA. Routing to ordering provider/clinic staff for review. Thanks, Sakshi Mcmanus, PharmD Clinical Pharmacist - Pharmacy Prior Authorization Team Information noted is based upon details provided by the patient and/or patient???s insurance plan asof this chart note???s date. Insurance coverage may change at any time, therefore a benefit status recheck should be completed for each visit. The patient is responsible for checking with insurance on applicable copays/coinsurance/deductible responsibilities documented in this encounter Plan of Treatment Not on filedocumented as of this encounter Visit Diagnoses Not on filedocumented in this encounter Care Teams Call Center Receptionist Relationship Specialty Start Date End Date Lila Clay, PT Physical Therapist Physical Therapy 04/05/[address] [place] [address] documented as of this encounter
--- OUTSIDE RECORDS SUMMARY | 2022-04-04 10:55 | XMS_ITS | Encounter Summary ---
:1955 Author Organization [facility] Address [address] [place] [address] Phone Care Team Providers Name Role Phone Unavailable Primary Care Provider Unavailable Reason for Visit Reason Onset Date Comments Refill Request 03/22/2019 propanthelin Encounter Details Date Type Department Care Team Description 03/22/2019 Refill Clinic & Specialty Monty Garcia MD Refill Request Center Urology Clini c 701 [facility] P5 (propanthelin) [address] [phone] (Wo rk) Social History Tobacco Use Types Packs/Day Years Used Date Smoking Tobacco: Former Cigarettes Cigars Smokeless Tobacco: Never Alcohol Use Standard Drinks/Week Comments Yes 3.3 (1 standard drink = 0.6 oz pure alco hol) once in while Sex Assigned at Date Recorded Not on file documented as of this encounter Miscellaneous Notes Telephone Encounter - Meng Rojas RN - 03/26/2019 9:17 AM CDT D: Medication Refill Request: Medication: Requested Prescriptions Pending Prescriptions Disp Refills ??? propantheline (PRO-BANTHINE) 15 mg oral tablet 540 tablet 3 Sig: TAKE 1 TABLET BY MOUTH THREE TIMES DAILY. MAY TAKE 2 TABLETS 3 TIMES DAILY FOR BLADDER SPASMS Last Refilled: 01/12/2018 # [phone] with 3 refills. Refill Protocol: No current urology refill protocol is available. Last Clinic Office Visit: 09/15/[address] Garcia: 61 y.o. male with a history of paraplegia, neurogenic bladder here for follow- up. He is doing well overall. Creatinine from care everywhere 04/28/2016 was 0.54. Discussed Macrobid prophylaxis. Studies have shown low risk of infection without antibiotic prophylaxis. Also patient is at risk for bacterialresistance with chronic antibiotic prophylaxis. Patient is agreeable to stopping Macrobid. He will call if he gets any symptoms of a UTI. Will consider restarting prophylaxis if he gets UTIs off prophylaxis. - Did not recommend rechecking a PSA given his other medical issues. -Follow-up in 1 year -Carry out renal ultrasound ?? Almita Aguilar MBBS, 09/15/2016 8:19 AM Next Scheduled Office Visit: Not scheduled. Called patient left a vm asking him to call back. Provided him with clinic phone #. A: Required Monitoring: Other: . R/P: Refill Prescription: Routed: It has been over a year since the last office visit, Per last office visit patient is due for follow up and Prescription Meng Rojas RN, 03/26/2019 9:17 AM documented in this encounter Plan of Treatment Not on filedocumented as of this encounter Visit Diagnoses Not on filedocumented in this encounter
--- OUTSIDE RECORDS SUMMARY | 2022-04-04 10:55 | XMS_ITS | Clinical Summary ---
:1955 Author Organization [employer] Address [address] [place] [address] Phone Care Team Providers Name Role Phone Lila Clay PT Unavailable Source Comments [employer] is fully rolled out on [employer]. Last update 12/26/08.[employer] Allergies Active Allergy Reactions Severity Noted Date Comments Amoxicillin-Pot Nausea/Vomiting 09/18/2006 Clavulanate Cephalexin Monohydrate Nausea/Vomiting 09/18/2006 Iodine Tincture Nausea/Vomiting 09/18/2006 Shellfish , betadine prep ect no all galen- per pt Shellfish Allergy Nausea/Vomiting 09/18/2006 Medications Be aware that medications may not be up to date as of this document. Always verify current medications with patient. Medication Sig Dispensed Refills Start Date End Date Status nitrofurantoin Take 50 mg by 0 08/25/2021 Active (MACRODANTIN) 50 mg oral mouth daily. capsule oxybutynin (DITROPAN XL) SMARTSIG:By 0 07/01/2021 Active 15 mg oral tablet 24 HR Mouth Active Problems Problem Noted Date Quadriplegia, C5-C7 incomplete 01/12/2016 Decubitus ulcer 02/14/2011 Quadriplegia 03/13/2009 Neurogenic bladder 01/24/2008 Resolved Problems Problem Noted Date Resolved Date Screening for prostate cancer 04/01/2010 07/04/2019 Immunizations Name Administration Dates Next Due COVID-19 MRNA Vaccine (Pfizer/COMIRNATY) suspension 09/14/19 21, 08/20/2020 Social History Tobacco Use Types Packs/Day Years Used Date Smoking Tobacco: Former Cigarettes Cigars Smokeless Tobacco: Never Alcohol Use Standard Drinks/Week Comments Yes 3.3 (1 standard drink = 0.6 oz pure alco hol) once in while Sex Assigned at Date Recorded Not on file Last Filed Vital Signs Vital Sign Reading Time Taken Comments Blood Pressure 135/74 09/02/2021 8:12 AM PRICING MANAGER Pulse 72 09/02/2021 8:12 AM PRICING MANAGER Temperature 36.2 ??C (97.1 ??F) 09/15/2016 8:09 AM PRICING MANAGER Respiratory Rate 14 04/20/2010 1:39 PM CDT Oxygen Saturation - - Inhaled Oxygen Concentration - - Weight 65.8 kg (145 lb) 01/17/2011 1:34 PM CDT Height 185.4 cm (6' 1) 12/06/2010 12:02 PM CDT Body Mass Index 19.13 12/06/2010 12:02 PM CDT Plan of Treatment Health Maintenance Due Date Last Done Comments CT Colonography 1955 Colonoscopy 1955 Colorectal Cancer Screening 1955 Dental Oral Exam 1955 Dental Prophylaxis 1955 Dental X-Ray: Bitewings 1954 FIT/Cologuard 1955 Hepatitis C Screening 1955 Sigmoidoscopy 1954 iFOB/FIT 1954 Lipid Screening 1955 Periodontal Maintenance 1968 Medicare Annual Wellness 1972 PREVENTATIVE VISIT 1972 HEALTH MAINTENANCE PROTOCOL 1973 TD/TDAP ADULTS 12/26/2018 12/26/2008, 09/01/2006 Abdominal Aortic Aneurysm 2019 (AAA) Screening PNEUMOCOCCAL IMMUNIZATION > 2019 65 YRS COVID-19 Vaccine (3 - 02/11/2021 09/14/2020, 08/20/2020 Booster for Pfizer series) INFLUENZA VACCINE 03/24/2022 05/24/2012, 05/24/2012, 03/25/2011, Additional history exists HIB Aged Out No longer eligib le based on patient 's age to complete this topic HPV Aged Out No longer eligib le based on patient 's age to complete this topic Insurance Payer Benefit Plan Subscriber ID Effective Phone Address Typ e / Group [facility] [id number] 1989-Pre [phone] [address] Work Comp [employer] sent [address] [employer] [place] [address] [facility] [id number] 2020-Pres [address] [facility] (MEDICARE ent [id number] Managed Care ADVANTAGE) [place] [address] [id number] Workers Comp Employer 1955 % [place] (Home) [place] [id number] [address] S[address]OS [id number] Care Teams Ortho Rn Relationship Specialty Start Date End Date Lila Clay, PT Physical Therapist Physical Therapy 04/05/21 [address] [place] [address]
--- OUTSIDE RECORDS SUMMARY | 2022-04-04 10:55 | XMS_ITS | Encounter Summary ---
:1955 Author Organization [facility] Address [address] [place] [address] Phone Care Team Providers Name Role Phone Unavailable Primary Care Provider Unavailable Reason for Visit Reason Onset Date Comments Refill Request 04/03/2020 Encounter Details Date Type Department Care Team Description 04/03/2020 Refill [facility] Monty Garcia MD Refill Request Urology Clinic [address] [place] [id number] [place] [address] 55 [phone] Social History Tobacco Use Types Packs/Day Years Used Date Smoking Tobacco: Former Cigarettes Cigars Smokeless Tobacco: Never Alcohol Use Standard Drinks/Week Comments Yes 3.3 (1 standard drink = 0.6 oz pure alco hol) once in while Sex Assigned at Date Recorded Not on file documented as of this encounter Miscellaneous Notes Telephone Encounter - Ofelia Lopez RN - 04/03/2020 9:20 AM CDT D: Medication Refill Request: Medication: Requested Prescriptions No prescriptions requested or ordered in this encounter Last Refilled: Propantheline 03/26/19 Last Clinic Office Visit: This is a bit of a long story, but this medication should be refilled by his PCP if he still needs it. ?? He is overdue for an appointment with me as well. So I will not refill this medication again for him. ?? Monty Garcia MD, 04/01/2020 7:32 AM ?? P: Faxed back form with this instruction documented in this encounter Plan of Treatment Not on filedocumented as of this encounter Visit Diagnoses Not on filedocumented in this encounter
--- OUTSIDE RECORDS SUMMARY | 2022-04-04 10:55 | XMS_ITS | Encounter Summary ---
:1955 Author Organization [facility] Address [address] [place] [address] Phone Care Team Providers Name Role Phone Hallie Clay PT Unavailable Reason for Referral Prior Authorization (Routine) - Closed Specialty Diagnoses / Procedures Referred By Contact Refer red To Contact Physical Therapy / Diagnoses Quadriplegia () At high risk for skin breakdown Impaired mobility Provider, Outside Hallie Clay, PHYSICAL MEDICINE AND Procedures PT TREATMENT PLAN OUTSIDE PROVIDER [facility] [place], [place] [id number] [place] [address] Phone: Fax: Referral ID Status Reason Start Date Expiration Date Visits Requ ested Visits Authorized [id number] Closed 05/05/2021 01/20/2022 12 12 SOLE LAYER Reason for Visit Prior Authorization (Routine) - Closed Specialty Diagnoses / Procedures Referred By Contact Refer red To Contact Physical Therapy / Diagnoses Quadriplegia () At high risk for skin breakdown Impaired mobility Provider, Outside Hallie Clay, PHYSICAL MEDICINE AND Procedures PT TREATMENT PLAN OUTSIDE PROVIDER [facility] [place], [place] [id number] [place] [address] Phone: Fax: Referral ID Status Reason Start Date Expiration Date Visits Requ ested Visits Authorized [id number] Closed 05/05/2021 01/20/2022 12 12 Encounter Details Date Type Department Care Team Description 07/14/2021 Hospital Encounter Clinic & Specialty Provider, Outside [place] [address] Center Caseworker Intake apHallie Hopkins, PT [address] [address] [address] Social History Tobacco Use Types Packs/Day [...] BLADDER SPASMS documented as of this encounter Miscellaneous Notes Treatment Summary - Hallie Clay, PT - 07/14/2021 8:00 AM CST Images from the original note were not included. ?? Dear Provider, please find below the results of the PT recertification note as per your referral. Your signature is required by the payor to certify the plan of care. Referring Provider: Yamile Conway CNP Provider Signature: Date: 07/14/2021 Date: Please return to: [facility] Physical Therapy [address] [address] RECERTIFICATION SUMMARY New Recertification period: 07/14/21 to 10/11/21 Last attended session: PHYSICAL THERAPY DAILY NOTE ?? Khanh Rene : 1955 Gender: male Date of Service: 07/14/2021 ?? Start of Care: 05/05/21 Visit #: 4 Missed Appointments: 0 ?? Referring Diagnosis:?? Quadriplegia Stage IV pressure ulcer of sacral region S/p flap graft ?? Treatment Diagnosis:?? Quadriplegia () [G82.50]?- Primary At high risk for skin breakdown [Z91.89]?? Impaired mobility [Z74.09]? Certification Period: ??From 05/05/21??to 08/04/21 ?? Onset Date:??04/16/21 (Physician Referral Date) Dates of Recent Hospitalization:??None?? Referring Provider:?? MD Yamile Alves, REGIONAL RECRUITER ?? Current Precautions/Contraindications:?At high risk for skin breakdown, s/p flap surgery, currentpressure injuries on feet [facility] User Interface Designer:?no ?? Patient gave two identifiers for Check 2 for Safety Total Treatment Time: 55 Min ?? Pain: No significant complaints during session ?? S: Pt presents to his PT session in his [facility], independently. Also present: Matthew Ricketts/[employer]. Received his new off loading boots from [employer] yesterday, started wearing them as of yesterday and is having difficulties with them (during transfers especially) due to the weight - also noted that they have elevated his knees which causes concern for increased pressure on IT's. ?? O: [Billable Units/Time] ?? ([id number]) Wheelchair Management: 55 min Pressure mapping completed this date with the XSensor system. Education provided by the PT, to patient on readings, peak pressure areas (>200mmHg) and where center of mass was positioned. Also provided education on pelvic alignment, including sacral sitting, pressure over bilateral IT's, and how importance it is to properly load/distribute weight across posterior thighs to decrease increased pressure areas over bony prominences. Pressure mapping conditions as follows: Sitting position with new boots donned +Current cushion with new boots donned Transfer MWC/mat table with SBA for balance, PT and vendor changed from current cushion to longer version (16 x 20) (totalA for swap of cushion, pt able to lift up with B UE's for having pressure repair service clerk placed over, completed with CGA) +Sitting on J2 Deep contour cushion (longer depth) - new cushion as of today. +New cushion, removed footrests and allowed feet to hang in correct position which allows for neutral femur position. This increased pressure on posterior thighs (goal of cushion) however with this position, patient's feet have <1 ground clearance with boots donned. PT removed boot from R LE and assessed. Discussed with patient options, and completed together the following: ?? Recommendations for Randy???s Orthotic Boots 07/14/21 1) Note the redness on anterior huber - caused by strap and front shell. Recommend straps be padded and front shell not be worn 2) Overall boots significantly too long - recommend this be trimmed to correct length of foot 3) Sole on boots is too thick/tall and causing concern for increased pressure on Randy???s sit bones (as this has elevated his knees higher than his pelvis). Recommend removing foam sole, and placing nonskid surface/emergency spill response technician bottom instead (lowest height possible) 4) Inside rivets in boots not covered (exposed metal) - please cover with shear reduction sticker toavoid pressure/shearing in these areas Goal is to continue to protect Randy???s skin, heal his wounds with appropriate off loading, decrease the weight of the boots as the current weight/bulkiness is impeding in his independence and safety with transfers. Also, current boots are affecting positioning of hips/thighs while seated (increasing adduction specifically in R hip). Please let me know if you have any additional questions or concerns - thank you. Hallie Clay, PT [facility] [phone] [email or web address] Printed above information for patient to bring with to his wiper blender as well as to his Ortho MD to discuss today's session. ?? At end of session, all agreed that next step will be to follow up in 1 month - after patient sees Ortho next week and has boots modified. Pt was given his old cushion to bring home with him; also has (2) seat stabilizers with him that he can place on top of the seat sling, did not recommend putting inhis cushion cover yet - cont to monitor if this is helpful for posture/positioning. ?? Education: As noted above Patient/Caregiver was educated on Purpose and Role of Physical Therapy, Plan of Care, and AttendancePolicy. Patient/Caregiver demonstrated understanding of this education. ?? Goals/Assessment: 1) Patient will demonstrate the ability to utilize appropriate seat functions??and adjustments??to independently reposition themself throughout the day, to decrease risk of skin breakdown and maximize self management of medical complexities such as LE edema and pressure injuries??by 11/02/21. CONT GOAL.?? 07/14/21: Goal date extended, as pt cont to have modifications and adjustments needed to current seating system as well as B orthotic offloadng boots that directly affect his posture and pressure redistribution. ?? A: Patient presents with impairments in posture/positioning, skin integrity and DME/equipment needs that limits his MRADLs per his baseline. Patient's response to interventions this date include: able to pressure map current cushion with newboots, new cushion with new boots, and provide recommendations for increased independence and safetyre: new boots. Patient will continue to benefit from skilled PT interventions to address these deficits and progress HEP appropriately. ?? P: Continue with the following interventions: Pressure mapping - cushion and footplates Pt to be seen in approximately 1 month - assess changes to boots, any ortho updates, trial seat stabilizer? Hallie Clay, PT [facility] [place] License: #[id number] Pager: [phone] Office: [phone] ? Recertification Assessment of need for continued skilled physical therapy interventions: Patient continues to make steady progress toward short term and halfway goals which have been updated to reflect their progress. Randy is still functioning below baseline for DME/equipment needs and skin integrity concerns and will continue to benefit from skilled PT interventions to further address these deficits and progress in order to achieve their goals and discharge to independent programming as appropriate. If the patient plateaus or demonstrates decreased participation including missed therapy appointments, they will be discharged from this episode of care. PLAN: Orders Placed This Encounter Procedures ??? PT TREATMENT PLAN Standing Status: Standing Number of Occurrences: 1 Order Specific Question: Physical Therapy location: Answer: [facility] Order Specific Question: Type of Visit? Answer: Follow Up Order Specific Question: Duration of Appointment in Minutes: Answer: 60 Order Specific Question: Schedule with: Answer: HALLIE CLAY [[id number]] Order Specific Question: Number of Visits patient should be scheduled for? Answer: 3 Order Specific Question: Modalities and Procedures Answer: Procedures Order Specific Question: Procedure Answer: Functional Activities Order Specific Question: Procedure Answer: Neuromuscular Re-education Order Specific Question: Procedure Answer: Wheelchair Management and Training Order Specific Question: Procedure Answer: Self Care/Home Management/ADL Order Specific Question: Procedure Answer: Therapeutic Exercises ??? PT SUBSEQUENT TREATMENT PLAN Standing Status: Standing Number of Occurrences: 8 Standing Expiration Date: 01/12/2022 Order Specific Question: Frequency of visits: Answer: 1 x week Order Specific Question: Physical Therapy location: Answer: [facility] Order Specific Question: Type of Visit? Answer: Follow Up Order Specific Question: Duration of Appointment in Minutes: Answer: 60 Order Specific Question: Schedule with: Answer: HALLIE CLAY [[id number]] Order Specific Question: Number of Visits patient should be scheduled for? Answer: 1 Order Specific Question: Modalities and Procedures Answer: Procedures Order Specific Question: Procedure Answer: Functional Activities Order Specific Question: Procedure Answer: Neuromuscular Re-education Order Specific Question: Procedure Answer: Self Care/Home Management/ADL Order Specific Question: Procedure Answer: Wheelchair Management and Training Hallie Clay PT ATP Date [place] License: #[id number] Pager: [phone] Office: [phone] SOLE LAYER documented in this encounter Plan of Treatment Not on filedocumented as of this encounter Visit Diagnoses Diagnosis Quadriplegia () Quadriplegia, unspecified At high risk for skin breakdown Other specified conditions influencing h ealth status Impaired mobility Other ill-defined conditions documented in this encounter Care Teams Customer Contact Representative Relationship Specialty Start Date End Date Hallie Clay PT Physical Therapist Physical Therapy 04/05/[address] [place] [address] documented as of this encounter
--- OUTSIDE RECORDS SUMMARY | 2022-04-04 10:55 | XMS_ITS | Encounter Summary ---
:1955 [address] [facility] Address [address] [place] [address] Phone Care Team Providers Name Role Phone Lila Clay PT Unavailable Reason for Visit Prior Authorization (Routine) - Closed Specialty Diagnoses / Procedures Referred By Contact Refer red To Contact Physical Therapy / Diagnoses Quadriplegia () At high risk for skin breakdown Impaired mobility Provider, Outside Lila Clay, PHYSICAL MEDICINE AND Procedures PT TREATMENT PLAN OUTSIDE PROVIDER PT [facility] [place] [address] [place] [address] Phone: Fax: Referral ID Status Reason Start Date Expiration Date Visits Requ ested Visits Authorized [id number] Closed 05/05/2021 01/20/2022 12 12 Encounter Details Date Type Department Care Team Description 09/01/2021 Hospital Encounter Clinic & Specialty Lila Clay, No [facility] Sc[employer]op Cutter apy PT [address] [place] [address] [address] [place], [place] [phone] Social History Tobacco Use Types Packs/Day Years Used Date Smoking Tobacco: Former Cigarettes Cigars Smokeless Tobacco: Never Alcohol Use Standard Drinks/Week Comments Yes 3.3 (1 standard drink = 0.6 oz pure alco hol) once in while Sex Assigned at Date Recorded Not on file documented as of this encounter Medications at Time of Discharge Medication Sig Dispensed Refills Start Date End Date nitrofurantoin Take 50 mg by 0 08/25/2021 (MACRODANTIN) 50 mg oral mouth daily. capsule oxybutynin (DITROPAN XL) SMARTSIG:By Mouth 0 12/0 03/2021 15 mg oral tablet 24 HR propantheline TAKE 1 TABLET BY 540 tablet 3 03/26/201909/02 (PRO-BANTHINE) 15 mg oral MOUTH THREE TIMES tablet DAILY. MAY TAKE 2 TABLETS 3 TIMES DAILY FOR BLADDER SPASMS documented as of this encounter Progress Notes Lila Clay PT - 09/01/2021 8:00 AM CST Pt cancelled today's session due to orthotics still not adjusted and has appt with PM&R MD tomorrow to discuss options for hip - requested appt be rescheduled for after these (2) items have been addressed. Lila Clay PT [facility] License: #[id number] Pager: [phone] Office: [phone] VERY OPERATOR documented in this encounter Plan of Treatment Not on filedocumented as of this encounter Visit Diagnoses Not on filedocumented in this encounter Care Teams Sat Instructor Relationship Specialty Start Date End Date Lila Clay, PT Physical Therapist Physical Therapy 04/05/21 [address] [place] [address] documented as of this encounter
--- OUTSIDE RECORDS SUMMARY | 2022-04-04 10:55 | XMS_ITS | Encounter Summary ---
:1955 Author Organization [facility] Address [address] [place] [address] Phone Care Team Providers Name Role Phone Hallie Clay PT Unavailable Encounter Details Date Type Department Care Team Description 05/05/2021 Hospital Encounter Clinic [facility] Specialty Alex Mata [address] [place] [id number] [place] [address] Center Agricultural Research Technologist apy Hallie Clay, PT [id number] [address] Social History Tobacco Use Types [...] BLADDER SPASMS documented as of this encounter Consult Notes Hallie Clay, PT - 05/05/2021 8:00 AM CDT Images from the original note were not included. PHYSICAL THERAPY Mobility Device Evaluation Khanh Rene : 1955 Gender: male Date of Service: 05/05/2021 Referring Diagnosis: Quadriplegia Stage IV pressure ulcer of sacral region S/p flap graft Treatment Diagnosis: Quadriplegia () [G82.50] ??- Primary At high risk for skin breakdown [Z91.89] Impaired mobility [Z74.09] Certification Period: From 05/05/21 to 08/04/21 Onset Date: 04/16/21 (Physician Referral Date) Dates of Recent Hospitalization: None Referring Provider: Dr. Alex Mata, MD Yamile Conway, MOUNTING MACHINE OPERATOR Current Precautions/Contraindications: At high risk for skin breakdown, s/p flap surgery, current pressure injuries on feet [facility] Scientist: no DIAGNOSIS Patient Active Problem List Diagnosis ??? Neurogenic bladder ??? Quadriplegia () ??? Decubitus ulcer HISTORY Pertinent History: The patient is a Randy year old male who is referred to outpatient Physical Therapyto be assessed for the most appropriate mobility device to increase their safety and independence while completing MRADL???s (Mobility Related Activities of Daily Living). The patient is accompanied tothe Physical Therapy session by his , Libertad. The vendor for DME they prefer to work is BLNAQUITA Brown of [employer]. The vendor is not present during today's evaluation. 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 He has utilized a manual wheelchair as his primary means of mobility since then. He has a significant pressure injury history, including on his sacral area and feet. He received his current MWC through [employer] on 10/06/20. SUBJECTIVE Patient Complaints: I just don't think it's working quite right, and I haven't been pressure mappedwhile sitting in it. Patient???s Stated Goals: Improve posture/positioning, make sure pressure is appropriately distributed Pain: the usual - my whole body hurts, but it's nothing severe. Follows Directions: Yes, 3 step FALL HISTORY: Has the patient had falls within the past six months? No; however if does have fall, is unable to get off the ground independently and requires assist x2 persons. Current Reported Maximum Walking Distance with: 0m; due to his SCI with resulting quadriplegia, Randy can no longer stand or walk independently and has not been able to for 30 years. The patient has had a progression of mobility deficits (including ambulation) over 30 years (time), limiting their independence, safety, and timeliness while completing MRADL???s. Due to these deficits, the patient???s condition has changed in that they now require a mobility device in order to participate in MRADL???s within their home. A mobility device will be used 24 hours/day and 7 days/week over level and uneven surfaces (including tile, wood floors, carpet, doorway thresholds, grass, gravel, ice and snow) and in the patient???s home environments. Patient transfers to/from bed with FIM LEVELS: Min Assist. Patient spends >6 hours/day alone. Patient spends 4-12 hours/day seated in the mobility device. Prior Level of Function: Randy will cont to use his [facility] and rehab accessories to complete all MRADL's, including dressing, toileting, transfers, bathing, grooming, and meal prep/eating. Patient is to remain living in: House The patient???s residence is is currently accessible for a Mobility Device. Patient owns the following equipment: Manual wheelchair, Tub/Shower bench and regular bed (no specialty mattress); adjustable/sleep number? PT discussed briefly that pressure mapping of his bed may be warranted due to pressure injuries on feet as well as history of pressure injury on sacral area. Patient is unable to perform the following MRADL???s independently, safely, or in a timely manner: Showering/bathing, Grooming, Feeding, Toileting, Transfers and Meal Preparation Who is the caregiver and how much assistance do they provide the patient with to complete MRADL???s within their home? Caregiver: assists when needed With an optimally configured mobility device, the patient will be able to complete the following MRADLs with increased independence, safety and timeliness: Showering/bathing, Grooming, Feeding, Toileting, Transfers and Meal Preparation What additional IADLs will the Mobility Device allow patient to perform? Attending Medical appointments Shopping Cleaning House Maintenance Transportation: How will the Mobility Device be transported?: Accessible family vehicle - patient drives independently (with hand controls) while seated in [facility]) Does it fold/disassemble for transportation?: Yes Is there a secure location for storage of the Mobility Device? yes OBJECTIVE APPEARANCE: In no apparent distress Height: 6'0 Weight: 134lbs PT briefly discussed nutrition consult, especially to increase protein intake - pt is not open to itat this time, but will keep it in mind. POSTURE/JOINT ALIGNMENT: Significantly forward head, rounded shoulders bilaterally, increased thoracic kyphosis, significantly decreased lumbar lordosis, increased posterior pelvic tilt with sacral sitting posture at rest (only minimally flexible at pelvis). Patient's R ASIS and PSIS elevated compared to L ASIS and PSIS, demonstrating a pelvic asymmetry andobliquity. Hips rest in slight adduction with internal rotation. SENSATION: Light Touch Intact: no diminished/absent sensation from chest level down to feet Proprioception Intact: no SKIN: History of Skin Breakdown: Yes Location: sacral area, s/p flap surgery AND Current skin breakdown: B feet/heels and dorsum of foot Pt wearing PRAFO's B to offload feet - will need further assessment Motor: Muscle Tone: Hypertonic Range of Motion: Deficits noted in the upper extremities: shoulder flexion/abduction limited to <90/90 due to quadriplegia/weakness; L elbow lacks full extension by -10 degrees, R elbow has functional flexion/ext. Bhands/fingers limited with full AROM due to quadriplegia/ weakness. Pt abl to self propel current MWC. Deficits noted in the lower extremities: tight hip flexors, hamstrings and heel cords B; hips tend to internally rotate but with overpressure able to achieve neutral femur alignment. Pt may benefit from a small build up/pommel style within cushion once seat depth appropriate depth, however this needs to still allow for transfers in/out. Strength: Upper Extremity Right MMT Left MMT Comments WFL Grossly <3/5 Grossly<3/5 Shoulder Flexion Shoulder Abduction Elbow Flexion Elbow Extension Wrist Flexion Wrist Extension Office Associate Using BERNY hand dynamometer Lower Extremity Right MMT Left MMT WFL 0/5 0/5 Hip Flexion Hip Extension Hip Abduction Knee Flexion Knee Extension Dorsiflexion Inversion Eversion Plantar Flexion Great toe extension Normative contact lens blocker and cutter strength values for Berny dynamometer for clinical use (pounds). (Ana Maria et al. Journal of Peripheral Nervous System 16:47-50 (2011).) Males Age (years) Median (pounds) 20-29 100 30-39 105 40-49 107 50-59 104 60-69 95 70-79 77 >80 54 Balance: Sitting: Unsupported: Unable due to postural abnormalities and trunk weakness, requires posterior and lateral support of backrest. Standing: Unable GAIT: Distance: 0 meters Patient has multiple medical diagnoses and complexities as noted above, that directly affect ambulation ability and contribute to these limiting factors and symptoms. RESPIRATORY INTEGRITY: Does patient use O2? No MEDICARE ALGORITHM: 1) Does the patient have a limitation that significantly impairs his/her ability to participate in one or more MRADLs in the home? Yes. Due to ROM and strength deficits, pain, functional mobility and balance deficits, patient???s ability to participate in MRADL???s safely or independently is impaired. 2) Can these limitations be compensated sufficiently with the use of a mobility device? Yes. With anoptimally configured mobility device, the patient will be able to participate in MRADL???s such as dressing, toileting, bathing, transfers, feeding, and accessing their home environment with increased safety and independence. 3) Does the patient demonstrate capability and willingness to consistently and safely use the mobility device? Yes. The patient has demonstrated safety and willingness to utilize the recommended devicewithin their home to participate in MRADL???s. 4) Can the patient???s deficits be sufficiently resolved with the use of a cane or walker? No, due to their weakness, ROM limitations, balance deficits and SCI with resulting quadriplegia, the patient can no longer sit or stand independently and safely. A cane or walker will not allow the patient to pa rticipate in MRADL???s without placing them at safety risk, within their home. 5) Does the patient???s home/typical environment allow for the use of a wheelchair (including Power Operated Vehicles- POVs)? Yes. The patient???s home is accessible to a mobility device, allowing themaccess to their bedroom, bathroom, kitchen and living areas in order to participate in MRADL???s with increased safety. 6) Does the patient have sufficient upper extremity function to propel a manual wheelchair in the home to participate in MRADLs during a typical day? YES. An optimally configured manual wheelchair willallow for maximal positioning and support, while accommodating for the patient???s upper extremity and ROM function. This will allow the patient to self-propel in the most efficient pattern and demonstrate increased independence, safety and timeliness while completing MRADL???s within their home. MAT ASSESSMENT: MEASUREMENTS (in inches): Pelvic Width ??? Chest Width ??? Knee to Buttock L 23??? Knee to Buttock R 23 ??? Knee to Heel L ??? Knee to Heel R ??? To Top of Head ??? To Top of Shoulders ??? To Scapula L ??? To Scapula R ??? To Elbow L ??? To Elbow R ??? Between Knees ??? True Hip Angle (degrees) *Pt measured patient's actual seat depth with preferred sitting posture (sacral sitting) - total depth of cushion this date appears to only be 19 CURRENT WHEELCHAIR/MOBILITY DEVICE: Make: Quickie 2 MWC (ultralightweight folding frame) Joby 2 deep contour cushion (16 x 20) Tension adjustable backrest, 8 degree bend in back canes, swing away footrests, tubular style armrests Is the patient safe to use the wheelchair/mobility device?: Yes Wheelchair Management/Training (CPT 93904): 15 min during session(s) Pressure mapping completed this date with the [...] bony prominences. Pressure mapping conditions as follows: +Current cushion: Overall pressure good, however not loading any of posterior thighs - educated patient on how this affects pressure on feet as well as on sacral area. Discussed options to try for current MWC: +increase dump to MWC to promote positioning/posture and decrease sacral sitting posture +trial of a deeper cushion - 21-22 seat depth? +Once cushion/seat adjustments made, assess backrest position/depth and overall height +pressure map footplates once above have been adjusted ASSESSMENT The patient is a 66 year old male referred to PT to be assessed for the most appropriate mobility device . The patient has supportive family. The patient has no environmental barriers at home. The patient has moderate pain complaints. The patient shows similar endurance versus one year ago at this time. The patient???s upper extremity strength/ROM is fair and lower extremity strength/ROM is poor/fair. The patient???s sitting static balance is fair and sitting dynamic balance is fair. The patient cannot stand without external support; The patient has no gait tolerance. The patient is no longer ableto ambulate efficiently, and requires a mobility device in order to complete MRADL???s independently, safely, and in a timely manner within their home. GOALS: 1) Patient will demonstrate the ability to utilize appropriate seat functions and adjustments to independently reposition themself throughout the day, to decrease risk of skin breakdown and maximize self management of medical complexities such as LE edema and pressure injuries by 08/04/21. NEW GOAL. PLAN The patient will return for outpatient PT sessions to address WC assessment, skills, and fitting. Orders Placed This Encounter Procedures ??? PT TREATMENT PLAN Standing Status: Standing Number of Occurrences: 12 Standing Expiration Date: 08/05/2021 Order Specific Question: Physical Therapy location: Answer: [facility] Order Specific Question: Type of Visit? Answer: Follow Up Order Specific Question: Duration of Appointment in Minutes: Answer: 60 Order Specific Question: Schedule with: Answer: HALLIE CLAY [[id number]] Order Specific Question: Number of Visits patient should be scheduled for? Answer: 3 Order Specific Question: Modalities and Procedures Answer: Procedures Order Specific Question: Procedure Answer: Functional Activities Order Specific Question: Procedure Answer: Neuromuscular Re-education Order Specific Question: Procedure Answer: Wheelchair Management and Training Order Specific Question: Procedure Answer: Self Care/Home Management/ADL Order Specific Question: Procedure Answer: Therapeutic Exercises This document will serve as the Letter of Medical Necessity. The electronic signatures indicate the recommended equipment is medically necessary and NOT items of convenience for this patient to continue with his/her functional mobility and activities of daily living. The DME vendor will assist with submission to insurance. Once the requested equipment has been approved and received, it may be beneficial for the patient to return to a PT treatment session for additional fitting, assessment, WC skills training, and adjustments to maximize independence and safety while completing MRADL's. The patient does and the family does understand the evaluation, goals and treatment plan. The patient does and the family does agrees with the evaluation, goals and treatment plan. documented in this encounter Plan of Treatment Not on filedocumented as of this encounter Visit Diagnoses Diagnosis Quadriplegia () - Primary Quadriplegia, unspecified At high risk for skin breakdown Other specified conditions influencing h ealth status Impaired mobility Other ill-defined conditions documented in this encounter Care Teams Charter Coordinator Relationship Specialty Start Date End Date Hallie Clay, PT Physical Therapist Physical Therapy 04/05/21 [address] [place] [address] documented as of this encounter
--- OUTSIDE RECORDS SUMMARY | 2022-04-04 10:55 | XMS_ITS | Encounter Summary ---
:1955 Author Organization [facility] Address [address] [place] [id number] Phone Care Team Providers Name Role Phone Lila Clay PT Unavailable Reason for Visit Reason Comments Referral Consult/Test/Treat (Routine) - Closed Specialty Diagnoses / Procedures Referred By Contact Refer red To Contact Physical Medicine and Diagnoses Paraplegia, unspecified paraplegia from previous in [place] 33 yrs James Nava Csc Pm[facility]R Cl Rehab / PHYSICAL MD [place] [address] [place] [address] MEDICINE AND REHAB [address] [place] [phone] Fax: Referral ID Status Reason Start Date Expiration Date Visits V isits Requested Authorized [id number] Closed Created in 07/20/2021 07/20/2022 1 1 PAS Encounter Details Date Type Department Care Team Description 09/02/2021 Office Visit [facility] Dariel Israel uadriplegia, C5-C7 incomplete () (Primary Dx); Physical Medicine & A, PA-C Muscle spasticity Rehabilitation Clini [facility] [address] [place] [phone] Social History Tobacco Use Types Packs/Day Years [...] Comments Blood Pressure 135/74 09/02/2021 8:12 AM SENIOR ESCROW OFFICER Pulse 72 09/02/2021 8:12 AM SENIOR ESCROW OFFICER Temperature - - Respiratory Rate - - Oxygen Saturation - - Inhaled Oxygen Concentration - - Weight - - Height - - Body Mass Index - - documented in this encounter Progress Notes Dariel Israel PA-C - 09/02/2021 8:00 AM CST [facility] Physical Medicine & Rehabilitation Clinic Khanh Rene : 1955 Sex: male Preferred Name: Randy Medical Decision Making: Quadriplegia, C5-C7 incomplete () Muscle spasticity 66-year-old male with incomplete C 7 spinal cord injury AUDREY B. He has slight increased tone in the hip adductor and knee flexor on the right. He has contracture of the right knee at about 90 degrees. He is currently in physical therapy to address muscle tone in the lower extremity. He also had a wheelchair evaluation. Discussed management of right knee tightness/contracture. He may benefit from medication such as baclofen, tizanidine, dantrolene. Other options are dynamic splinting or surgery. Discussed intended benefits, risk, complication and side effects of these treatment options. He had Botox injection in 2019 which did not help but he did not have any aggressive therapy afterwards. He is willing to try Botox again and is in physical therapy to address stretching and ROM. After discussion with the pt, the above treatment plan was decided through shared clinical decision making. Education was provided and all questions were answered and the patient states agreement with the plan of care. Return in about 3 months (around 11/30/2021). History of Present Illness: Khanh Rene is a 66 y.o. male with PMH of C 7 incomplete SCI AUDREY B due to work injury 02/1989, neurogenic bowel and bladder and pressure wounds, PVD, DVT, autonomic dysreflexia, anemia, history of osteomyelitis, pacemaker placement, seen for: paraplegia. Referred by dr James Houston MD Patient is unaccompanied Patient is here to discuss options regarding the right lower extremity. He has chronic wounds on hisankle and is followed by a wound clinic in [place]. He just had a wheelchair evaluation in physical therapy here at [facility]. He stated that around 2 to 3 years ago he was in rehab for his wounds and developed a contracture of the right knee. He had some Botox in 2019 but he does not think it helped much. He did not have much therapy follow-up after the procedure. He has not taking any medication for spasticity. He denies muscle spasms in the lower extremity but his legs to crossover when he is sitting and he has increased tone in the right leg. He denies any pain problem in his back hips or legs. He has neurogenic bladder and is straight cathing himself with. He has a colostomy back. He is using PRAFO boots to offload the heels. He denies fever, chills, nausea, vomiting, shortness of breath, sore throat, palpitations, chest pain or abdominal pain. Denies history of autonomic dysreflexia Past Medical History: Diagnosis Date ??? Autonomic dysreflexia H/o ??? DVT 1983 ??? Neurogenic bladder H/o 1SL ??? Neurogenic bowel ??? 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 Screening for prostate cancer 04/01/2010 Other past medical history listed in epic Third-degree AV block, PAD, chronic osteomyelitis, MRSA, recurrent UTI, decubitus ulcer Past Surgical History: Procedure Laterality Date ??? COLOSTOMY 02/2016 Pacemaker placement 2007 History of left femur fracture status post ORIF History of right knee surgery for bony fragment/cartilage Colostomy placement Sacral ulcer excision, debridement of heel ulcers Family history Heart disease mother father and brother Current Outpatient Medications on File Prior to Visit Medication Sig Dispense Refill ??? nitrofurantoin (MACRODANTIN) 50 mg oral capsule Take 50 mg by mouth daily. ??? oxybutynin (DITROPAN XL) 15 mg oral tablet 24 HR SMARTSIG:By Mouth No current facility-administered medications on file prior to visit. Allergies Allergen Reactions ??? Amoxicillin-Pot Clavulanate Nausea/Vomiting ??? Cephalexin Monohydrate Nausea/Vomiting ??? Iodine Tincture Nausea/Vomiting Shellfish, betadine prep ect no allery- per pt ??? Shellfish Allergy Nausea/Vomiting Social history He is living independently with his . assisting with ADL/IADLs. Occupational History ??? Not on file Tobacco Use ??? Smoking status: Former Smoker Types: Cigars, Cigarettes ??? Smokeless tobacco: Never Used Substance and Sexual Activity ??? Alcohol use: Yes Alcohol/week: 3.3 standard drinks Types: 4 Shots of liquor per week Comment: once in while ??? Drug use: No ??? Sexual activity: Not Currently Social History Narrative ??? Not on file Diagnostic 03/15/2020 US ankle-brachial index bilateral IMPRESSION: ??1. Right lower extremity: Mildly reduced resting TBI of 0.54. Multiphasic waveforms in the pedal arteries. ??2. Left lower extremity: Moderately reduced resting TBI of 0.46. Monophasic waveforms in the pedalarteries. 02/05/2016 ultrasound kidney IMPRESSION Impression: No hydronephrosis or renal calculi. 09/17/2010 x-ray pelvis Findings AP view pelvis and frogleg views of both hips demonstrates severe osteoarthritis of both hip joints with orthopedic fixation of an intertrochanteric/subtrochanteric left hip fracture. Lucency seen surrounding the IM nail. There is generalized demineralization present. Significant colonic fecal loading. IMPRESSION Impression: Severe osteoarthritis involving both hips with postsurgical fixation of a left hip fracture. There is no cortical irregularity to suggest osteomyelitis. This however lucency surrounding a femoral IM nail. Three-phase bone scan may be beneficial to assess for infection surrounding the nail if clinically indicated. 12/09/1998 MRI cervical spine with/without FINDINGS: ??No comparisons are available. ??At the level of C7 there is an intramedullary lesion which has low signal intensity on T1 weighted images and is bright on T2 weighted images. ??There is no evidence for enhancement. This finding is most consistent with a post-traumatic syrinx. At specific levels: C5-C6: ??Central, lateral and foraminal broad-based herniation. C6-C7: ??Osteophytes on the left. ??Also broad-based bulge on the left. ?? No evidence for central canal or neural foraminal narrowing. C7-T1: ??Broad-based bulge. ??No evidence for central canal or neural foraminal narrowing. IMPRESSION: 1. 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 2. ??Broad-based bulge at the C6-C7 level. Review of Systems All other systems reviewed and are negative. Physical Exam Constitutional: General: He is awake. He is not in acute distress. Appearance: Normal appearance. He is well-developed and well-groomed. He is not ill-appearing, toxic-appearing or diaphoretic. HENT: Head: Normocephalic. Eyes: Extraocular Movements: Extraocular movements intact. Conjunctiva/sclera: Conjunctivae normal. Pupils: Pupils are equal, round, and reactive to light. Pulmonary: Effort: Pulmonary effort is normal. No respiratory distress. Musculoskeletal: General: No swelling, tenderness, deformity or signs of injury. Cervical back: Neck supple. Right lower leg: No edema. Left lower leg: No edema. Comments: Active shoulder abduction flexion to about 90 degrees bilateral. Hip: Nontender to palpation, range of motion not performed Right knee is contracted at about 90 degrees Tight heel cords bilateral Skin: Comments: Exposed skin is warm and dry Neurological: Mental Status: He is alert and oriented to person, place, and time. Cranial Nerves: No dysarthria or facial asymmetry. Sensory: Sensory deficit present. Motor: Weakness, atrophy and abnormal muscle tone present. Comments: Wheelchair-bound Diminished sensation from chest down to feet Spasticity Abductor tone hips 2/4 MAS Right knee flexion 4/4 MAS no significant increase in tone in upper extremity or left leg Strength: (0-5 Scale) Motion Left Right Comments: SA 5/5 5/5 EF 5/5 5/5 EE 5/5 5/5 WE 4/5 4/5 Rubber Compounder Mixer 3/5 3/5 Strength bilateral lower extremities 0/5 Psychiatric: Attention and Perception: Attention normal. Speech: Speech normal. Behavior: Behavior is cooperative. Vitals: 09/02/21 0812 BP: 135/74 Cuff Location: Left Arm Patient Position: Sitting Cuff Size: Adult - regular Pulse: 72 Estimated body mass index is 19.13 kg/m?? as calculated from the following: Height as of 12/06/10: 1.854 m (6' 1). Weight as of 01/17/11: 65.8 kg (145 lb). Dariel Israel PA-C Total time spent on this encounter, on the date of service, including pre-visit review of separatelyobtained history, [id number] interaction performing medically appropriate physical exam, patient counseling/education, interpretation of diagnostic results, care coordination and documentation was 46 minutes. Dictation Disclaimer: Notes are completed with voice-recognition dictation software. Errors are generally corrected in real time. Please contact me via [employer] staff message if you note any errors requiring clarification. OR ESCROW OFFICER documented in this encounter Plan of Treatment Scheduled Orders Name Type Priority Associated Diagnoses Order S chedule EMG - BOTOX EMG Routine Muscle spasticity Ordered: 0 09/02/2021 documented as of this encounter Procedures Procedure Name Priority Date/Time Associated Comments Diagnosis CARE EVERYWHERE 09/07/2021 11:04 Results for this AUTHORIZATION AM SENIOR ESCROW OFFICER procedure are in the results section. CARE EVERYWHERE 09/07/2021 11:04 Results for this AUTHORIZATION AM SENIOR ESCROW OFFICER procedure are in the results section. documented in this encounter Results CARE EVERYWHERE AUTHORIZATION (09/07/2021 11:04 AM SENIOR ESCROW OFFICER) Narrative This result has an attachment that is no t available. Him Provider SCANNED CONSENTS CARE EVERYWHERE AUTHORIZATION (09/07/2021 11:04 AM SENIOR ESCROW OFFICER) Narrative This result has an attachment that is no t available. Him Provider SCANNED CONSENTS documented in this encounter Visit Diagnoses Diagnosis Quadriplegia, C5-C7 incomplete () - Pr imary Quadriplegia, C5-C7, incomplete Muscle spasticity Spasm of muscle documented in this encounter Care Teams Teaching Assistant Relationship Specialty Start Date End Date Lila Clay, PT Physical Therapist Physical Therapy 04/05/[address] [place] [id number] documented as of this encounter
--- OUTSIDE RECORDS SUMMARY | 2022-04-04 10:55 | XMS_ITS | Encounter Summary ---
:1955 Author Organization [facility] Address [address] [place] [address] Phone Care Team Providers Name Role Phone Unavailable Primary Care Provider Unavailable Encounter Details Date Type Department Care Team Description 08/18/2020 Orders Only Mira PK Viral Cl Jonathan Sierra MD COVID-19 [address] [facility] [address] [facility] [address] [place], [place] [address] [place], [place] [id number] (Wo rk) Social History Tobacco Use Types [...] with No / Unsure 08/20/2020 3:15 PM LAMP SHADE ASSEMBLER someone who was confirmed or suspected to have Coronavirus / COVID-19? documented as of this encounter Plan of Treatment Not on filedocumented as of this encounter Visit Diagnoses Diagnosis COVID-19 documented in this encounter
--- OUTSIDE RECORDS SUMMARY | 2022-04-04 10:55 | XMS_ITS | Encounter Summary ---
:1955 Author Organization [facility] Address [address] [place] [address] Phone Care Team Providers Name Role Phone Provider, Outside Primary Care Provider Unavailable Reason for Visit Reason Onset Date Comments Refill Request 01/12/2018 Encounter Details Date Type Department Care Team Description 01/12/2018 Refill [facility] Monty Garcia MD Refill Request Urology Clinic [address] [place] [address] [address] [place], [place] [address] [phone] Social History Tobacco Use Types Packs/Day Years [...] on filedocumented in this encounter Care Teams Coil Assembler Relationship Specialty Start Date End Date Provider, Outside PCP - General 03/13/09 10/22/18 [place] [address] documented as of this encounter
--- OUTSIDE RECORDS SUMMARY | 2022-04-04 10:56 | XMS_ITS | Encounter Summary ---
:1955 Author Organization [facility] Address [address] [place] [address] Phone Care Team Providers Name Role Phone Provider, Outside Primary Care Provider Unavailable Reason for Visit Reason Comments Follow-up Encounter Details Date Type Department Care Team Description 02/14/2011 Office Visit [facility] Med/Rehab Sameera Frances D ecubitus ulcer Clinic (Primary Dx) [address] [facility] [address] [place], [place] [address] [place], [place] [phone] (Wo rk) Social History Tobacco Use Types Packs/Day Years Used Date Smoking Tobacco: Former Cigarettes Cigars Smokeless Tobacco: Never Alcohol Use Standard Drinks/Week Comments Yes 3.3 (1 standard drink = 0.6 oz pure alco hol) once in while Sex Assigned at Date Recorded Not on file documented as of this encounter Last Filed Vital Signs Vital Sign Reading Time Taken Comments Blood Pressure 93/61 02/14/2011 12:24 PM CDT Pulse 62 02/14/2011 12:24 PM CDT Temperature - - Respiratory Rate - - Oxygen Saturation - - Inhaled Oxygen Concentration - - Weight - - Height - - Body Mass Index - - documented in this encounter Patient Instructions Patient InstructionsSameera Frances MD - 02/14/2011 12:51 PM CDT Change dressing for left ischial tuberosity to alginate and 4X4. Change positioning to eliminate heat and moisture to your buttock. documented in this encounter Progress Notes Sameera Frances MD - 02/14/2011 12:55 PM CDT Concerned some tissue eroded away with dressing changes last week Spends time in bed or recliner. Not been to units seating clinic. Left IT approx 5-6cm , fibrinous material at based, no surrounding emacerated skin, some odor. Right sacral opening small, some emaceration, undermining at twleve oclock to 6.3 cm and continuous to 2 oclock with a depth of 7 cm. Try to eliminate heat and moisture, maybe need to stay out of recliner. follow up. Sameera Frances MD, 02/14/2011 12:54 PM documented in this encounter Plan of Treatment Not on filedocumented as of this encounter Visit Diagnoses Diagnosis Decubitus ulcer - Primary Pressure ulcer, unspecified site documented in this encounter Care Teams Steam Fitter Helper Relationship Specialty Start Date End Date Provider, Outside PCP - General 03/13/09 10/22/18 [place] [address] documented as of this encounter
--- OUTSIDE RECORDS SUMMARY | 2022-04-04 10:56 | XMS_ITS | Encounter Summary ---
:1955 Author Organization [facility] Address [address] [place] [address] Phone Care Team Providers Name Role Phone Provider, Outside Primary Care Provider Unavailable Reason for Visit Reason Onset Date Comments Refill Request 10/22/2014 Encounter Details Date Type Department Care Team Description 10/22/2014 Refill [facility] Tree Vaughan, Refill Request [address] [facility], [address] [place], [place] [address] [address] [place] [address] [place], [place] [phone] (Wo rk) Social History Tobacco Use Types [...] NOS documented in this encounter Care Teams Tile Erector Relationship Specialty Start Date End Date Provider, Outside PCP - General 03/13/09 10/22/18 [place] [address] documented as of this encounter
--- OUTSIDE RECORDS SUMMARY | 2022-04-04 10:56 | XMS_ITS | Encounter Summary ---
:1955 Author Organization [facility] Address [address] [place], [place] [address] [place] [address] Phone Care Team Providers Name Role Phone Provider, Outside Primary Care Provider Unavailable Reason for Visit Reason Comments Follow-up Encounter Details Date Type Department Care Team Description 06/06/2013 Office Visit [facility] Urology Clinic Omar Savage, Neurog enic bladder Yordy FALCON (Primary Dx) [address], [address] [place], [place] [address] Social History Tobacco Use Types Packs/Day Years Used Date Smoking Tobacco: Former Cigarettes Cigars Smokeless Tobacco: Never Alcohol Use Standard Drinks/Week Comments Yes 3.3 (1 standard drink = 0.6 oz pure alco hol) once in while Sex Assigned at Date Recorded Not on file documented as of this encounter Last Filed Vital Signs Vital Sign Reading Time Taken Comments Blood Pressure 88/58 06/06/2013 11:33 AM AIR TANK ASSEMBLER Pulse 79 06/06/2013 11:33 AM AIR TANK ASSEMBLER Temperature 36.8 ??C (98.2 ??F) 06/06/2013 11:33 AM AIR TANK ASSEMBLER Respiratory Rate - - Oxygen Saturation - - Inhaled Oxygen Concentration - - Weight - - Height - - Body Mass Index - - documented in this encounter Patient Instructions Patient InstructionsOmar Savage MD - 06/06/2013 11:42 AM CST [facility] TANK ASSEMBLER documented in this encounter Progress Notes Omar Savage MD - 06/08/2013 8:17 AM CST [facility] [address], [address] [place] [address] (fax) [facility]#: [id number] PATIENT: MICHEAL FLETCHER : 1955 DATE: 06/06/2013 UROLOGY NOTE Patient is a 58-year-old paraplegic male with neurogenic bladder, who performs intermittent catheterization, who last had imaging in approximately 2009. This was an ultrasound which was normal. The patient has continued to do well. He is on Pro- Banthine 15 mg 3 times a day and Macrodantin 1 tablet every other day. This has been a stable program for this patient. He has not had any pulmonary issues from this. The patient has not had any admissions for urosepsis or uncontrolled urinary tract infections. He does not have but mild incontinence perhaps once or twice a week. The patient is not further examined today. He will have a repeat renal ultrasound performed in his community and will have this result forwarded to us by fax. He will otherwise be seen in 1 year's time. Omar Savage MD Staff Physician Surgery Service Received in Organ Tuner Electronic: 06/08/2013 05:34 M: 06/08/2013 08:17 filiberto STEWART/filiberto Voice ID: [id number] Document ID: [id number] TANK ASSEMBLER Omar Savage MD - 06/08/2013 5:32 AM CST This office note has been dictated. TANK ASSEMBLER documented in this encounter Plan of Treatment Not on filedocumented as of this encounter Visit Diagnoses Diagnosis Neurogenic bladder - Primary Neurogenic bladder, NOS documented in this encounter Care Teams Supervisor Smoke Control Relationship Specialty Start Date End Date Provider, Outside PCP - General 03/13/09 10/22/18 [place] [address] documented as of this encounter
--- OUTSIDE RECORDS SUMMARY | 2022-04-04 10:56 | XMS_ITS | Encounter Summary ---
:1955 Author Organization [facility] Address [address] [place] [address] Phone Care Team Providers Name Role Phone Provider, Outside Primary Care Provider Unavailable Reason for Visit Reason Comments Other Encounter Details Date Type Department Care Team Description 01/17/2012 Telephone [facility] Omar Reyes MD [address] [facility], [address] [place], [place] [address] Social History Tobacco Use Types Packs/Day Years Used Date Smoking Tobacco: Former Cigarettes Cigars Smokeless Tobacco: Never Alcohol Use Standard Drinks/Week Comments Yes 3.3 (1 standard drink = 0.6 oz pure alco hol) once in while Sex Assigned at Date Recorded Not on file documented as of this encounter Miscellaneous Notes Telephone Encounter - Danna Alvarez RN - 01/19/2012 2:[address] Savage ok to increase PRo-Banthine to 2 tablets tid. VORB Telephone Encounter - Danna Alvarez RN - 01/17/2012 1:12 PM CDT Message copied by DANNA ALVAREZ on MonJan 17, 2012 1:12 PM ------ Message from: LAMONT MOSCOSO Created: MonJan 17, 2012 10:59 AM Regarding: Dr. Savage Contact: TELEPHONE MESSAGE Taken by: Lamont Moscoso, 01/17/2012 11:00 AM Direct to: Ryan Problem: Pt called and stated that he is incontinence, he wants to change propanetheline medicationhe is on to 6 pills instead of 4 pills a day. Please give him a call if he can increase his doses. Thanks. Pt. Name: Khanh Rene : 1955 (home) Insurance: PCP: Outside Provider Comment: Expects Return Call at: [phone] documented in this encounter Plan of Treatment Not on filedocumented as of this encounter Visit Diagnoses Not on filedocumented in this encounter Care Teams Hvac Mechanical Engineer Relationship Specialty Start Date End Date Provider, Outside PCP - General 03/13/09 10/22/18 [place] [address] documented as of this encounter
--- OUTSIDE RECORDS SUMMARY | 2022-04-04 10:56 | XMS_ITS | Encounter Summary ---
:1955 Author Organization [facility] Address [address] [facility] [place] [address] Phone Care Team Providers Name Role Phone Provider, Outside Primary Care Provider Unavailable Reason for Visit Reason Comments Neurologic Problem pmr Encounter Details Date Type Department Care Team Description 12/27/2010 Office Visit [facility] Phys Med/Rehab Abhinav Chavez MD NEED ADDRESS Ulcer () (Primary Clinic Sameera Frances MD [address] [place] [address] Dx) [address] [place], [place] [address] Social History Tobacco Use Types Packs/Day Years Used Date Smoking Tobacco: Every Day Cigars Smokeless Tobacco: Never Alcohol Use Standard Drinks/Week Comments Yes 3.3 (1 standard drink = 0.6 oz pure alco hol) once in while Sex Assigned at Date Recorded Not on file documented as of this encounter Last Filed Vital Signs Vital Sign Reading Time Taken Comments Blood Pressure 95/69 12/27/2010 12:03 PM CDT Pulse 100 12/27/2010 12:03 PM CDT Temperature - - Respiratory Rate - - Oxygen Saturation - - Inhaled Oxygen Concentration - - Weight 65.8 kg (145 lb) 12/27/2010 12:03 PM CDT Height - - Body Mass Index 19.13 12/06/2010 12:02 PM CDT documented in this encounter Patient Instructions Patient InstructionsaSmeera Frances MD - 12/27/2010 12:38 PM CDT No change in wound care, stay off buttock documented in this encounter Progress Notes Sameera Frances MD - 12/27/2010 12:36 PM CDT Wound measures 1.5 by 2.5 cm, one track at 12 oclock, 7 cm length, minimal undermining, some ematiated skin, no odor, draining clear/yellow. No change in treatment. Follow up 2 weeks. Sameera Frances MD, 12/27/2010 12:36 PM documented in this encounter Plan of Treatment Not on filedocumented as of this encounter Visit Diagnoses Diagnosis Ulcer - Primary Chronic ulcer of unspecified site documented in this encounter Care Teams Sports Apparel Internship Relationship Specialty Start Date End Date Provider, Outside PCP - General 03/13/09 10/22/18 [place] [address] documented as of this encounter
--- OUTSIDE RECORDS SUMMARY | 2022-04-04 10:56 | XMS_ITS | Encounter Summary ---
:1955 Author Organization [facility] Address [address] [place] [address] Phone Care Team Providers Name Role Phone Provider, Outside Primary Care Provider Unavailable Reason for Visit Reason Comments Bladder Problem Encounter Details Date Type Department Care Team Description 01/26/2015 Office Visit [facility] Urology Clinic Monty Garcia Neur ogenic bladder Yordy FALCON (Primary Dx) [address] , [address] [facility] [address] [place], [place] [phone] Social History Tobacco Use Types Packs/Day Years Used Date Smoking Tobacco: Former Cigarettes Cigars Smokeless Tobacco: Never Alcohol Use Standard Drinks/Week Comments Yes 3.3 (1 standard drink = 0.6 oz pure alco hol) once in while Sex Assigned at Date Recorded Not on file documented as of this encounter Last Filed Vital Signs Vital Sign Reading Time Taken Comments Blood Pressure 116/68 01/26/2015 4:11 PM CDT Pulse 77 01/26/2015 4:11 PM CDT Temperature 36.7 ??C (98.1 ??F) 01/26/2015 4:11 PM CDT Respiratory Rate - - Oxygen Saturation - - Inhaled Oxygen Concentration - - Weight - - Height - - Body Mass Index - - documented in this encounter Progress Notes Monty Garcia MD - 01/26/2015 4:13 PM CDT UROLOGY CLINIC [facility]: NEW PATIENT/CONSULT VISIT Khanh Rene : 1955 Date of Visit: 01/26/2015 Primary care provider: Outside Provider (General) Referring Physician: Dr. Omar Savage Chief Complaint: Neurogenic bladder. HPI: This 59 y.o. male is being seen at this time for evaluation of the above. He is a former patient of my now retired colleague Dr. Savage, and I am meeting him for [...] Fr straight catheter, and has for years. Other associated signs and symptoms include maintaining the way it is... Every once in a while a bad day... Steady... No trouble with UTI's or leakage. Maybe his last UTI was many many years ago. He has continued to take the macrodantin and pro-banthine and has not changed this routine for years as well. No CP, SOB, N/V. No new complaints. A review of the patient's chart was completed pertaining to today's clinic visit. Past Medical History Diagnosis Date ??? 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 Neurogenic bladder H/o 1SL ??? Autonomic dysreflexia H/o ??? Neurogenic bowel ??? DVT 1983 ??? Screening for prostate cancer 04/01/2010 Surgeries: Had a couple of flap procedures for pressure sores before. No belly surgery before. Current Outpatient Prescriptions on File Prior to Visit Medication Sig Dispense Refill ??? nitrofurantoin (MACRODANTIN) 50 mg oral capsule Take one capsule by mouth every other day 30 capsule 11 ??? propantheline (PRO-BANTHINE) 15 mg oral tablet Take 15 mg by mouth three times daily. May take two tablets three times daily for bladder spasms 180 tablet 11 No current facility-administered medications on file prior to visit. Allergies: Amoxicillin-pot clavulanate; Cephalexin monohydrate; Iodine tincture; and Shellfish allergy Family History: No pertinent urologic family history. Father had a kidney stone many years ago. Social History: History Substance Use Topics ??? Smoking status: Former Smoker Types: Cigars, Cigarettes ??? Smokeless tobacco: Never Used ??? Alcohol Use: 2.0 oz/week 4 Shots of liquor per week Comment: once in while ROS: A complete 10 point ROS neg except for that stated in HPI PE Filed Vitals: 01/26/15 1611 BP: 116/68 Pulse: 77 Temp: 36.7 ??C (98.1 ??F) General: Well-appearing, in wheelchair. HEENT: Head AT/NC, mucous membranes moist, neck supple, no thyromegaly Neuro: A/O x 3 Pulmonary: Normal respiratory effort Cardiovascular: Regular rate and rhythym Abdominal: soft, non-tender, non-distended. No abnormal masses, no scars, no palpable liver or spleen. No hernia or lymphadenopathy Back: No CVA tenderness bilaterally Lymphatic: No LE edema Skin: No obvious lesions Psych: Normal mood and affect Labs: Reviewed PSA: No results found for: PSAF PSA DIAGNOSTIC Date Value Ref Range Status 09/19/2001 0.5 0.00-4.00 NG/ML Final PSA SCREEN Date Value Ref Range Status 04/01/2010 1.25 0.00-4.00 NG/ML Final 01/24/2008 2.38 0.00-4.00 NG/ML Final Urinalysis: Lab Results Component Value Date/Time PROTEINUR NEGATIVE 09/03/2012 1422 GLUUR NEGATIVE 09/03/2012 1422 KETONES NEGATIVE 09/03/2012 1422 BLOODUA NEGATIVE 09/03/2012 1422 BILIUA NEGATIVE 09/03/2012 1422 SPG 1.016 09/03/2012 1422 WBCUR 6-20* 09/03/2012 1422 RBCUR 0-5 09/03/2012 1422 APPEAR CLEAR 09/03/2012 1422 NITRITE NEGATIVE 09/03/2012 1422 COLOR YELLOW 09/03/2012 1422 MICRO 01/29/2001 1537 SQEPITH 2+ 09/03/2012 1422 TRANEPI 1+ 01/29/2001 1537 UROBILINOGIN 1.0 09/03/2012 1422 LET SMALL* 09/03/2012 1422 Blood Labs: Lab Results Component Value Date/Time WBC 5.3 09/17/2010 0944 HGB 11.8* 09/17/2010 0944 HCT 36.4* 09/17/2010 0944 PLT 308 09/17/201044 Electrolytes: Lab Results Component Value Date CR 0.29* 01/24/2008 CR <0.5 08/18/2005 Imaging: All of the following imaging and radiology reports and images personally reviewed. Last renal US was n 2009. Impression: Normal renal ultrasound. Assessment/Plan: 59 y.o. male with a history of neurogenic bladder. We discussed his management, and he is doing very well overall so I see no need to change his routine. In regard to his cathing regimen he is doing well, and also he is not getting many infections which is great. We also briefly discussed PSA screening, but I did not recommend checking this given his other medical issues and life expectancy is likely not rehan. He understood this very well, and wanted to less tests... Rather than more. I agreedwith this plan. - Will get updated renal US - F/U in 1 year, or sooner PRN. Monty Garcia MD, 01/26/2015 4:13 PM documented in this encounter Plan of Treatment Not on filedocumented as of this encounter Visit Diagnoses Diagnosis Neurogenic bladder - Primary Neurogenic bladder, NOS documented in this encounter Care Teams Information Technology Project Manager Relationship Specialty Start Date End Date Provider, Outside PCP - General 03/13/09 10/22/18 [place] [address] documented as of this encounter
--- OUTSIDE RECORDS SUMMARY | 2022-04-04 10:56 | XMS_ITS | Encounter Summary ---
:1955 Author Organization [facility] Address [address] [facility] [place] [address] Phone Care Team Providers Name Role Phone Provider, Outside Primary Care Provider Unavailable Reason for Visit Reason Comments Follow-up Encounter Details Date Type Department Care Team Description 12/06/2010 Office Visit [facility] [place]/Rehab Sameera Frances U lcer () (Primary Clinic MD Dx) [address] [facility] [address] [place], [place] [address] [place], [place] [phone] (Wo rk) Social History Tobacco Use Types Packs/Day Years Used Date Smoking Tobacco: Every Day Cigars Smokeless Tobacco: Never Alcohol Use Standard Drinks/Week Comments Yes 3.3 (1 standard drink = 0.6 oz pure alco hol) once in while Sex Assigned at Date Recorded Not on file documented as of this encounter Last Filed Vital Signs Vital Sign Reading Time Taken Comments Blood Pressure 120/82 12/06/2010 12:06 PM CDT Pulse 98 12/06/2010 12:06 PM CDT Temperature - - Respiratory Rate - - Oxygen Saturation - - Inhaled Oxygen Concentration - - Weight 65.8 kg (145 lb) 12/06/2010 12:02 PM CDT Height 185.4 cm (6' 1) 12/06/2010 12:02 PM CDT Body Mass Index 19.13 12/06/2010 12:02 PM CDT documented in this encounter Patient Instructions Patient InstructionsSameera Frances MD - 12/06/2010 12:56 PM CDT Stay off backside. Maximize the protein that you eat. documented in this encounter Progress Notes Sameera Frances MD - 12/06/2010 12:54 PM CDT Up more than should as having to assist mother. Increased amount of drainage. Two tracts are now one extending up to 7 cm deep from 11 to 2 oclock. Surrounding tissue excoriated.No odor , erythema, exudate. New stage 2 left IT ulcer without signs of infection No change in wound care. Need to get off wound. Educated about SSx of fistula and the need to see ED if develop. Educated about maximizing protein in diet. Follow up in two weeks. documented in this encounter Plan of Treatment Not on filedocumented as of this encounter Visit Diagnoses Diagnosis Ulcer - Primary Chronic ulcer of unspecified site documented in this encounter Care Teams Breakdown Person Relationship Specialty Start Date End Date Provider, Outside PCP - General 03/13/09 10/22/18 [place] [address] documented as of this encounter
--- OUTSIDE RECORDS SUMMARY | 2022-04-04 10:56 | XMS_ITS | Encounter Summary ---
:1955 Author Organization [facility] Address [address] [place] [address] Phone Care Team Providers Name Role Phone Provider, Outside Primary Care Provider Unavailable Reason for Visit Reason Onset Date Comments Other 02/05/2016 Encounter Details Date Type Department Care Team Description 02/05/2016 Telephone [facility] Urology Clinic Selena Garcia MD plan of care [place] [address] [address] [address] [facility], [address] [place] [address] [place], [place] [address] [phone] Social History Tobacco Use Types Packs/Day Years Used Date Smoking Tobacco: Former Cigarettes Cigars Smokeless Tobacco: Never Alcohol Use Standard Drinks/Week Comments Yes 3.3 (1 standard drink = 0.6 oz pure alco hol) once in while Sex Assigned at Date Recorded Not on file documented as of this encounter Miscellaneous Notes Telephone Encounter - Jayy Berger RN - 02/05/2016 8:15 AM CDT Urology RN called patient to discuss plan of care with patient. Urology clinic wanting to know if patient is still taking propantheline bromide-does he need a refill? Also needs to schedule 1-year follow-up with US. ANDREW for patient to return clinic's call to confirm receipt of message. documented in this encounter Plan of Treatment Not on filedocumented as of this encounter Visit Diagnoses Not on filedocumented in this encounter Care Teams Tagman Relationship Specialty Start Date End Date Provider, Outside PCP - General 03/13/09 10/22/18 [place] [address] documented as of this encounter
--- OUTSIDE RECORDS SUMMARY | 2022-04-04 10:56 | XMS_ITS | Encounter Summary ---
:1955 Author Organization [facility] Address [address] [place] [address] Phone Care Team Providers Name Role Phone Provider, Outside Primary Care Provider Unavailable Encounter Details Date Type Department Care Team Description 11/15/2010 Office Visit [facility] [place] [place] Phys Med/Rehab Sameera Frances D ecubitus ulcer Clinic (Primary Dx) [address] [facility] [address] [place], [place] [address] [place], [place] [phone] (Wo rk) Social History Tobacco Use Types Packs/Day Years Used Date Smoking Tobacco: Never Smokeless Tobacco: Never Alcohol Use Standard Drinks/Week Comments Yes 3.3 (1 standard drink = 0.6 oz pure alco hol) once in while Sex Assigned at Date Recorded Not on file documented as of this encounter Patient Instructions Patient InstructionsSameera Frances MD - 11/15/2010 12:45 PM CDT Wound care as before documented in this encounter Progress Notes Sameera Frances MD - 11/16/2010 10:42 [place] [address] MEDREC#: [id number] PATIENT: MICHEAL RENE : 1955 DATE: 11/15/2010 PHYSICAL [facility]ICINE AND REHABILITATION NEUROLOGY CLINIC The patient is a 55-year-old, Alaina B C7 spinal cord injury who is here with a decubitus ulcer. Since he was last here there has been some confusion so he did not get the wound dressings as recommended. He continued with what he has been doing. He has not noticed any complication. He spends most of the day in bed. He is up about 2-3 hours a day at most. On examination, he is an alert, cooperative gentleman who is independent with his transfers. Exam of his wound finds some macerated skin around the edges of his wound. His wound has soaked through its dressing and through his jeans. When measuring the tunneling, at 12 o'clock there is 3 cm tunneling and at 2 o'clock 2 cm tunneling. The drainage is clear yellow. There is granulation tissue and some fibrin in the base of his wound. There is no odor, no surrounding erythema. ASSESSMENT: Some improvement in the healing of the tunneling since I last saw him. Continued difficulties with too moist of a wound. I have personally discussed this with [facility] while the patient is in the exam room and they have the prescriptions and will mail it to him. I would like to see him back in 3 weeks. We will continue with the same recommendations as I had with the last clinic appointment. I did review those with the patient. Sameera Frances MD Staff Physician Physical Medicine and Rehabilitation Service Received in Real Estate Investor: 11/15/2010 12:55 M: 11/16/2010 02:37 bj CLR/bj Voice ID: [id number] Document ID: [id number] cc:[place] [address] Sameera Frances MD - 11/15/2010 12:44 PM CDT See dictation Sameera Frances MD, 11/15/2010 12:44 PM documented in this encounter Plan of Treatment Not on filedocumented as of this encounter Visit Diagnoses Diagnosis Decubitus ulcer - Primary Pressure ulcer, unspecified site documented in this encounter Care Teams Educational Institution President Relationship Specialty Start Date End Date Provider, Outside PCP - General 03/13/09 10/22/18 [place] [address] documented as of this encounter
--- OUTSIDE RECORDS SUMMARY | 2022-04-04 10:56 | XMS_ITS | Encounter Summary ---
:1955 Author Organization [facility] Address [address] [place] [address] Phone Care Team Providers Name Role Phone Provider, Outside Primary Care Provider Unavailable Encounter Details Date Type Department Care Team Description 09/07/2012 Letters(Tab) [facility] Urology Clinic Omar Reyes MD [address] [place] [address], [address] Research Only [place], [place] [address] Social History Tobacco Use Types Packs/Day Years Used Date Smoking Tobacco: Former Cigarettes Cigars Smokeless Tobacco: Never Alcohol Use Standard Drinks/Week Comments Yes 3.3 (1 standard drink = 0.6 oz pure alco hol) once in while Sex Assigned at Date Recorded Not on file documented as of this encounter Progress Notes Omar Savage MD - 09/07/2012 7:45 AM CST [facility] [address] [place], [place] [address] September 07, 2012 TO: Micheal Fletcher [id number] [address] [id number] RE:MICHEAL FLETCHER MR#:[id number] :1955 Dear Mr. Fletcher: From your recent Urology Clinic visit, your urine culture grew only mixed gram-positive organisms, which are not considered an infection. Please feel free to contact me for questions. Best wishes. Looking forward to seeing you at your next scheduled visit. Sincerely, Omar Savage MD Staff Physician Surgery Service Received in Computerized Mill Recorder: 09/07/2012 07:32 M: 09/07/2012 07:45 cn CS/cn Voice ID: [id number] Document ID: [id number] cc:MICHEAL FLETCHER [address] [place] [address] SIDE GRINDER documented in this encounter Plan of Treatment Not on filedocumented as of this encounter Visit Diagnoses Not on filedocumented in this encounter Care Teams Training Engineer Relationship Specialty Start Date End Date Provider, Outside PCP - General 03/13/09 10/22/18 [place] [address] documented as of this encounter
--- OUTSIDE RECORDS SUMMARY | 2022-04-04 10:56 | XMS_ITS | Encounter Summary ---
:1955 Author Organization [facility] Address [address] [place] [address] Phone Care Team Providers Name Role Phone Provider, Outside Primary Care Provider Unavailable Reason for Visit Reason Onset Date Comments Refill Request 07/05/2016 Encounter Details Date Type Department Care Team Description 07/05/2016 Refill [facility] Urology Clinic Divya Caraballo RN Refill Request [address] [facility], [address] [place], [place] [address] [place] [address] Social History Tobacco Use Types Packs/Day Years [...] NOS documented in this encounter Care Teams Airport Guide Relationship Specialty Start Date End Date Provider, Outside PCP - General 03/13/09 10/22/18 [place] [address] documented as of this encounter
--- OUTSIDE RECORDS SUMMARY | 2022-04-04 10:56 | XMS_ITS | Encounter Summary ---
:1955 Author Organization [facility] Address [address] [place] [address] Phone Care Team Providers Name Role Phone Provider, Outside Primary Care Provider Unavailable Reason for Referral Consult/Test/Treat (Routine) - Closed Specialty Diagnoses / Procedures Referred By Contact Refer red To Contact Physical Therapy Diagnoses Decubitus ulcer Sameera Frances MD [address] [place], [place] [address] Referral ID Status Reason Start Date Expiration Date Visits Requ ested Visits Authorized [id number] Closed 01/17/2011 01/18/2012 1 1 Reason for Visit Reason Comments Neurologic Problem Encounter Details Date Type Department Care Team Description 01/17/2011 Office Visit [facility] [place] [place] Phys Med/Rehab Sameera Frances D ecubitus ulcer Clinic (Primary Dx) [address] [place], [place] [address] [place], [place] [phone] (Wo rk) Social History Tobacco Use Types Packs/Day Years Used Date Smoking Tobacco: Former Cigarettes Cigars Smokeless Tobacco: Never Alcohol Use Standard Drinks/Week Comments Yes 3.3 (1 standard drink = 0.6 oz pure alco hol) once in while Sex Assigned at Date Recorded Not on file documented as of this encounter Last Filed Vital Signs Vital Sign Reading Time Taken Comments Blood Pressure 94/64 01/17/2011 1:34 PM CDT Pulse 62 01/17/2011 1:34 PM CDT Temperature - - Respiratory Rate - - Oxygen Saturation - - Inhaled Oxygen Concentration - - Weight 65.8 kg (145 lb) 01/17/2011 1:34 PM CDT Height - - Body Mass Index 19.13 12/06/2010 12:02 PM CDT documented in this encounter Progress Notes Sameera Frances MD - 01/17/2011 2:20 PM CDT Decub ulcer No new history, cont to change dressings as directed RIght 2 by 2 cm. One tunnel at 13 oclock 6cm, no infection Left shallow no tunnelling, no infection Cont duoderm to left and thang dressing to right. Referral to seating clinic for mapping given. Follow up end of January Sameera Frances MD, 01/17/2011 2:20 PM documented in this encounter Plan of Treatment Scheduled Referrals Name Type Priority Associated Diagnoses Order S chedule REFERRAL TO PHYS THERAPY Referral Routine Decubitus ulcer Ordered: 01/17/2011 (EXT) documented as of this encounter Visit Diagnoses Diagnosis Decubitus ulcer - Primary Pressure ulcer, unspecified site documented in this encounter Care Teams Pheresis Specialist Relationship Specialty Start Date End Date Provider, Outside PCP - General 03/13/09 10/22/18 [place] [address] documented as of this encounter
--- OUTSIDE RECORDS SUMMARY | 2022-04-04 10:56 | XMS_ITS | Encounter Summary ---
:1955 Author Organization [facility] Address [address] [place] [address] Phone Care Team Providers Name Role Phone Provider, Outside Primary Care Provider Unavailable Reason for Visit Reason Onset Date Comments Call Back 11/08/2010 Encounter Details Date Type Department Care Team Description 11/08/2010 Telephone [facility] [place]ini [place] Vickie Odell RN Call Back [address] [facility] [address] [address] [place], [place] [address] Social History Tobacco Use Types Packs/Day Years Used Date Smoking Tobacco: Never Smokeless Tobacco: Never Alcohol Use Standard Drinks/Week Comments Yes 3.3 (1 standard drink = 0.6 oz pure alco hol) once in while Sex Assigned at Date Recorded Not on file documented as of this encounter Miscellaneous Notes Telephone Encounter - Vickie Odell RN - 11/08/2010 2:12 PM CDT D: Patient states that was to call [facility] [phone] to order supplieslast after last visit 11-01-10. Patient awaiting supplies. P: will call and reorder supplies. Telephone Encounter - Vickie Odell RN - 11/08/2010 1:52 PM CDT Message copied by VICKIE ODELL on MonNov 08, 2010 1:52 PM ------ Message from: YOLA ANDERSON Created: MonNov 08, 2010 12:52 PM Contact: TELEPHONE MESSAGE Taken by: Yolamarco a Anderson, 11/08/2010 12:52 PM Direct to: dr trujillo Problem: has not received supplies that ordered on the last visit Pt. Name: Khanh Rene : 1955 (home) Insurance: PCP: Outside Provider Comment:na Expects Return Call at: [phone] documented in this encounter Plan of Treatment Not on filedocumented as of this encounter Visit Diagnoses Not on filedocumented in this encounter Care Teams Underwater Welder Relationship Specialty Start Date End Date Provider, Outside PCP - General 03/13/09 10/22/18 [place] [address] documented as of this encounter
--- OUTSIDE RECORDS SUMMARY | 2022-04-04 10:56 | XMS_ITS | Encounter Summary ---
:1955 Author Organization [facility] Address [address] [place] [address] Phone Care Team Providers Name Role Phone Provider, Outside Primary Care Provider Unavailable Reason for Visit Reason Comments Other Encounter Details Date Type Department Care Team Description 02/20/2013 Telephone [facility] [place] Urology Clinic Omar Reyes MD [address] [facility], [address] Research Only [place], [place] [address] Social History Tobacco Use Types Packs/Day Years Used Date Smoking Tobacco: Former Cigarettes Cigars Smokeless Tobacco: Never Alcohol Use Standard Drinks/Week Comments Yes 3.3 (1 standard drink = 0.6 oz pure alco hol) once in while Sex Assigned at Date Recorded Not on file documented as of this encounter Miscellaneous Notes Telephone Encounter - Danna Alvarez RN - 02/20/2013 10:[address] Hussein Giron to refill Pro-Banthine. VORB Notified [facility] pharmacy at [phone]. Telephone Encounter - Danna Alvarez RN - 02/20/2013 10:38 AM CDT Message copied by DANNA ALVAREZ on MonFeb 20, 2013 10:38 AM ------ Message from: LISSETTE SILVA Created: MonFeb 19, 2013 11:48 AM Regarding: Hussein Contact: TELEPHONE MESSAGE Taken by: Lissette Silva, 02/19/2013 11:49 AM Direct to: Osbaldo Problem: Pt. Name: Khanh Rene : 1955 (home) Insurance: PCP: Outside Provider Comment: Edilson is calling for a verbal refill request for Propantheline. Please call [phone] Expects Return Call at: ------ documented in this encounter Plan of Treatment Not on filedocumented as of this encounter Visit Diagnoses Not on filedocumented in this encounter Care Teams Upholstery Instructor Relationship Specialty Start Date End Date Provider, Outside PCP - General 03/13/09 10/22/18 [place] [address] documented as of this encounter
--- OUTSIDE RECORDS SUMMARY | 2022-04-04 10:56 | XMS_ITS | Encounter Summary ---
:1955 Author Organization [facility] Address [address] [place] [address] Phone Care Team Providers Name Role Phone Provider, Outside Primary Care Provider Unavailable Reason for Visit Reason Onset Date Comments Refill Request 12/17/2013 Propantheline Encounter Details Date Type Department Care Team Description 12/17/2013 Refill [facility] Omar Savage MD Refill Request [facility] (Propantheline) [address], [address] [place], [place] [address] Social History Tobacco Use Types Packs/Day Years Used Date Smoking Tobacco: Former Cigarettes Cigars Smokeless Tobacco: Never Alcohol Use Standard Drinks/Week Comments Yes 3.3 (1 standard drink = 0.6 oz pure alco hol) once in while Sex Assigned at Date Recorded Not on file documented as of this encounter Miscellaneous Notes Telephone Encounter - Jessica Alves RN - 12/17/2013 4:26 PM CDT Received request for refill of propantheline bromide 15 mg Last refilled 01/19/2012 Last office visit: 06/06/2013 Refilled per protocol. documented in this encounter Plan of Treatment Not on filedocumented as of this encounter Visit Diagnoses Not on filedocumented in this encounter Care Teams Family Service Aide Relationship Specialty Start Date End Date Provider, Outside PCP - General 03/13/09 10/22/18 [place] [address] documented as of this encounter
--- OUTSIDE RECORDS SUMMARY | 2022-04-04 10:56 | XMS_ITS | Encounter Summary ---
:1955 Author Organization [facility] Address [address] [place] [address] Phone Care Team Providers Name Role Phone Provider, Outside Primary Care Provider Unavailable Reason for Visit Reason Onset Date Comments Refill Request 09/05/2013 macrodantin Encounter Details Date Type Department Care Team Description 09/05/2013 Refill [facility] Omar Savage MD Refill Request [facility] Only (macrodantin) [address], [address] [place], [place] [address] Social History Tobacco Use Types Packs/Day Years Used Date Smoking Tobacco: Former Cigarettes Cigars Smokeless Tobacco: Never Alcohol Use Standard Drinks/Week Comments Yes 3.3 (1 standard drink = 0.6 oz pure alco hol) once in while Sex Assigned at Date Recorded Not on file documented as of this encounter Miscellaneous Notes Telephone Encounter - Veronika Anaya RN - 09/05/2013 4:27 PM CST VORB ok to refill nitrofurantoin per Dr. Savage, med send to to co sign. [facility] documented in this encounter Plan of Treatment Not on filedocumented as of this encounter Visit Diagnoses Diagnosis Neurogenic bladder - Primary Neurogenic bladder, NOS documented in this encounter Care Teams University Internship Relationship Specialty Start Date End Date Provider, Outside PCP - General 03/13/09 10/22/18 [place] [address] documented as of this encounter
--- OUTSIDE RECORDS SUMMARY | 2022-04-04 10:56 | XMS_ITS | Encounter Summary ---
:1955 Author Organization [facility] Address [address] [place] [address] Phone Care Team Providers Name Role Phone Provider, Outside Primary Care Provider Unavailable Reason for Visit Reason Comments Other Encounter Details Date Type Department Care Team Description 05/22/2016 Refill [facility] U[facility] Monty Morales MD Other [address], [address] [address] [place] [address] [phone] (Wo rk) Social History Tobacco Use Types Packs/Day Years Used Date Smoking Tobacco: Former Cigarettes Cigars Smokeless Tobacco: Never Alcohol Use Standard Drinks/Week Comments Yes 3.3 (1 standard drink = 0.6 oz pure alco hol) once in while Sex Assigned at Date Recorded Not on file documented as of this encounter Miscellaneous Notes Telephone Encounter - Divya Avendano RN - 05/23/2016 8:45 AM CDT An authorization refill request is received in Urology Clinic from the pt's [facility], for propantheline and nitrofurantoin. Records are reviewed, and per the Ambulatory medication refill protocol and Dr. Garcia, electronic authorization is sent for 1 months supply, refill x1. Next appointment not scheduled. Message sent to pt via pharmacy and letter sent to pt's home requesting a refill. Divya Avendano, NILSA, 05/23/2016 8:46 AM documented in this encounter Plan of Treatment Not on filedocumented as of this encounter Visit Diagnoses Diagnosis Neurogenic bladder Neurogenic bladder, NOS documented in this encounter Care Teams Captain Cannery Tender Relationship Specialty Start Date End Date Provider, Outside PCP - General 03/13/09 10/22/18 [place] [address] documented as of this encounter
--- OUTSIDE RECORDS SUMMARY | 2022-04-04 10:56 | XMS_ITS | Encounter Summary ---
:1955 Author Organization [facility] Address [address] [place] [address] Phone Care Team Providers Name Role Phone Provider, Outside Primary Care Provider Unavailable Encounter Details Date Type Department Care Team Description 02/05/2016 Orders Only [facility] [place] Monty Garcia, Neur ogenic bladder Yordy FALCON (Primary Dx) [address] [facility] [address] [place], [place] [id number] Social History Tobacco Use Types Packs/Day Years Used Date Smoking Tobacco: Former Cigarettes Cigars Smokeless Tobacco: Never Alcohol Use Standard Drinks/Week Comments Yes 3.3 (1 standard drink = 0.6 oz pure alco hol) once in while Sex Assigned at Date Recorded Not on file documented as of this encounter Plan of Treatment Not on filedocumented as of this encounter Results ULT KIDNEYS COMPLETE (10/07/2016 [...] Neurogenic bladder - Primary Neurogenic bladder, NOS Neurogenic bladder Neurogenic bladder, NOS documented in this encounter Care Teams Tower Control Operator Relationship Specialty Start Date End Date Provider, Outside PCP - General 03/13/09 10/22/18 [place] [address] documented as of this encounter
--- OUTSIDE RECORDS SUMMARY | 2022-04-04 10:57 | XMS_ITS | Encounter Summary ---
:1955 Author Organization [facility] Address [address] [place] [address] Phone Care Team Providers Name Role Phone Provider, Outside Primary Care Provider Unavailable Encounter Details Date Type Department Care Team Description 05/17/2010 Letters(Tab) [facility] Urology Omar Savage MD [address] [place] [address], [address] Research Only [place] [address] Social History Tobacco Use Types Packs/Day Years Used Date Smoking Tobacco: Never Alcohol Use Standard Drinks/Week Comments Yes 3.3 (1 standard drink = 0.6 oz pure alco hol) Sex Assigned at Date Recorded Not on file documented as of this encounter Progress Notes Omar Savage MD - 05/18/2010 6:15 AM CDT [facility] [address] [place] [address] May 17, 2010 TO: Micheal Rene [address] [place] [address] RE:MICHEAL RENE MR#:[id number] :1955 Dear Mr. Rene: From your recent urology clinic visit, the renal ultrasound that was performed does not show any evidence of kidney abnormalities. There is no dilation, no hydronephrosis or stones noted. Best wishes. Look forward to seeing you in 1 year. Please feel free to contact me for questions. Sincerely, Omar Savage MD Staff Physician Surgery Service Received in Dot [place]: 05/17/2010 21:18 M: 05/18/2010 03:15 javon CS/javon Voice ID: [id number] Document ID: [id number] cc:Micheal Rene [id number] MICHELLE Espino [id number] documented in this encounter Plan of Treatment Not on filedocumented as of this encounter Visit Diagnoses Not on filedocumented in this encounter Care Teams Contract Paralegal Relationship Specialty Start Date End Date Provider, Outside PCP - General 03/13/09 10/22/18 [place] [address] documented as of this encounter
--- OUTSIDE RECORDS SUMMARY | 2022-04-04 10:57 | XMS_ITS | Encounter Summary ---
:1955 Author Organization [facility] Address [address] [place], [place] [address], [place] [address] Phone Care Team Providers Name Role Phone Provider, Outside Primary Care Provider Unavailable Encounter Details Date Type Department Care Team Description 10/01/2010 Orders Only HFA Urology Omar Savage, Neurogenic bladder [address], [address] (Primary Dx) [place], [place] [address] Research Only [phone] Social History Tobacco Use Types Packs/Day Years [...] NOS documented in this encounter Care Teams Drugless Doctor Relationship Specialty Start Date End Date Provider, Outside PCP - General 03/13/09 10/22/18 [place] [address] documented as of this encounter
--- OUTSIDE RECORDS SUMMARY | 2022-04-04 10:57 | XMS_ITS | Encounter Summary ---
:1955 Author Organization [facility] Address [address] [place] [address] Phone Care Team Providers Name Role Phone Provider, Outside Primary Care Provider Unavailable Encounter Details Date Type Department Care Team Description 08/30/2010 Telephone [facility] Physical Therap y Reece Ziegler, [place] [address] [facility] [address] [place] [address] Social History Tobacco Use Types Packs/Day Years Used Date Smoking Tobacco: Never Alcohol Use Standard Drinks/Week Comments Yes 3.3 (1 standard drink = 0.6 oz pure alco hol) Sex Assigned at Date Recorded Not on file documented as of this encounter Miscellaneous Notes Telephone Encounter - Reece Ziegler, RN - 08/30/2010 11:51 AM CST Message copied by REECE ZIEGLER on MonAug 30, 2010 11:51 AM ------ Message from: REECE PELAEZ Created: MonAug 30, 2010 11:39 AM ----- Message ----- From: Tessa Tompkins Sent: 08/30/2010 11:12 AM To: Neurology Team Pool [facility] ----- Message ----- From: Nola Espino Sent: 08/27/2010 1:52 PM To: Neurology Postal Service Mail Processor Pool Patient: Khanh Rene : 1955 Called to schedule an appointment with provider:Dr. Frances No appointments available: with preferred provider.. Date and time requested: caryn Reason for visit: Pt has a pressure sore, and needs a FU appt Phone number for return call: [phone] Monday08/30/10. Khanh Rene will need to [facility] at [phone] to schedule a follow up visit with Dr Frances in her PM&R Clinic. We will call Khanh and inform him of this. Reece Ziegler RN E SPECIALIST documented in this encounter Plan of Treatment Not on filedocumented as of this encounter Visit Diagnoses Not on filedocumented in this encounter Care Teams Senior National Account Manager Relationship Specialty Start Date End Date Provider, Outside PCP - General 03/13/09 10/22/18 [place] [address] documented as of this encounter
--- OUTSIDE RECORDS SUMMARY | 2022-04-04 10:57 | XMS_ITS | Encounter Summary ---
:1955 Author Organization [facility] Address [address] [place] [address] Phone Care Team Providers Name Role Phone Provider, Outside Primary Care Provider Unavailable Reason for Visit Reason Comments Neurologic Problem pmr Encounter Details Date Type Department Care Team Description 11/01/2010 Office Visit [facility] Phys Med/Rehab Sameera Frances D ecubitus ulcer, Clinic MD mackey (Primary Dx) [address] [facility] [address] Mail Code [address] [place], [place] [address] [place], [place] [phone] (Wo rk) Social History Tobacco Use Types Packs/Day Years Used Date Smoking Tobacco: Never Smokeless Tobacco: Never Alcohol Use Standard Drinks/Week Comments Yes 3.3 (1 standard drink = 0.6 oz pure alco hol) once in while Sex Assigned at Date Recorded Not on file documented as of this encounter Last Filed Vital Signs Vital Sign Reading Time Taken Comments Blood Pressure 94/64 11/01/2010 2:06 PM CDT Pulse 95 11/01/2010 2:06 PM CDT Temperature - - Respiratory Rate - - Oxygen Saturation - - Inhaled Oxygen Concentration - - Weight 68 kg (150 lb) 11/01/2010 2:06 PM CDT Height - - Body Mass Index 47650.15 07/31/2007 3:21 PM GRAIN OPERATIONS MANAGER documented in this encounter Patient Instructions Patient InstructionsSameera Frances MD - 11/01/2010 3:28 PM CDT Coat normal skin with No sting to prevent the normal skin from becoming too wet. Continue to use strips in the tracks (new strips will be antimicrobial) Fill the main cavity of the wound with alginate to absorb moisture Cover with gauze. Change dressing 2 times per day STAY off wound. documented in this encounter Progress Notes Sameera Frances MD - 11/01/2010 3:24 PM CDT I reviewed and discussed the patient care with the resident at the time of the visit. Please see resident note in this encounter for details. I agree with the plan. Any changes by me have been noted. Sameera Frances MD, 11/01/2010 4:02 PM . Total time taken 45 minutes, 30 for coordination of care and patient teaching. HPI ROS Physical Exam Pablo Lozano MD - 11/01/2010 2:36 PM CDT History: 55 y.o. 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 He is currently packing it and dressing it with wet to dry dressings changed 2x per day. No signs of infection. No pain. He has been lying down or sitting in a recliner and is frustrated by having to keep pressure off and limiting his activity. He was recently to see Dr. Tavarez in Plastic Surgery clinic to consider a flap repair. Dr. Tavarez stated that he did not feel surgery was necessary. Khanh would still like to consider this and would like a second opinion from a surgeon. Khanh stated that there are no other issues going on right now but that he is still considering getting a power w/c. PM&R ROS: Therapy: none Ambulation: manual w/c Transfers: scoot ADLs: no issues IADLs: no issues Speech: ok Swallow: ok Pain(H/A): no Spasticity: no issues Wounds: yes, see above Bowel: ok, dig stim Bladder: managed with several meds and catheterization Equipment: considering electric w/c General ROS: Pertinent items are noted in HPI. All other systems are negative. PMH: Patient Active Problem List Diagnoses Code ??? Neurogenic Bladder 596.54 ??? Quadriplegia 344.00 ??? Screening for prostate cancer V76.44 Medications: Current outpatient prescriptions:oxybutynin (DITROPAN XL) 5 mg oral tablet 24 HR, Take 5 mg by mouthdaily., Disp: 30 Tab, Rfl: 2; nitrofurantoin (MACRODANTIN) 50 mg oral capsule, Take 50 mg by mouth. One tablet every other day, Disp: 15 Cap, Rfl: 11; propantheline (PRO-BANTHINE) 15 mg oral tablet, Take 15 mg by mouth. May have two pills twice daily for bladder spasms, Disp: 120 Tab, Rfl: 11 Allergies: Allergies Allergen Reactions ??? Cephalexin Monohydrate Nausea/Vomiting ??? Iodine Nausea/Vomiting Shellfish, betadine prep ect no allery- per pt ??? Shellfish Allergy Nausea/Vomiting ??? Augmentin Xr Nausea/Vomiting Fam Hx: No family history on file. Vitals: Filed Vitals: 11/01/10 1406 BP: 94/64 Pulse: 95 Weight: 68.04 kg (150 lb) Physical Exam: General: NAD, pleasant, cooperative, A+O, sitting in manual w/c Head: normocephalic, atraumatic Eyes: EOMI, normal pupils, iris, conjunctiva, eyelids, no nystagmus ENT: voice normal, external ears normal, mucous membranes moist Neck: No obvious deformities, normal ROM CV: Skin appears well-perfused Resp: normal respiratory efforts MSK: Wasting of bilateral hands and legs. Neuro: 5/5 str elbow extension, 0/5 C8 and below. Derm: Open wound over R IT - 3 cm superior/inferior, 2 cm lateral and 1.5 cm deep with tunneling at 12 o'clock (superior) of 6 cm, 2 o'clock of 3 cm and 4 o'clock of 1 cm. There is macerated white tissue around the wound but no signs of infection. Some wet drainage on gauze. Assessment: 55 y.o. 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 He would like a surgical evaluation from another physician as Dr. Tavarez did not feel a flap was the right course of treatment. Plan: 1. Ordered dressing supplies and given instructions as follows: -Coat normal skin with No sting to prevent the normal skin from becoming too wet. -Continue to use strips in the tracks (new strips will be antimicrobial) -Fill the main cavity of the wound with alginate to absorb moisture -Cover with gauze. -Change dressing 2 times per day -STAY off wound. 2. Will consider referral to another plastic surgeon on follow-up. 3. F/U 11/15/10 Pablo Lozano MD, 11/01/2010 4:00 PM documented in this encounter Plan of Treatment Not on filedocumented as of this encounter Visit Diagnoses Diagnosis Decubitus ulcer, buttock - Primary Pressure ulcer, buttock documented in this encounter Care Teams Artificial Pearl Maker Relationship Specialty Start Date End Date Provider, Outside PCP - General 03/13/09 10/22/18 [place] [address] documented as of this encounter
--- OUTSIDE RECORDS SUMMARY | 2022-04-04 10:57 | XMS_ITS | Encounter Summary ---
:1955 Author Organization [facility] Address [address] [place] [address] Phone Care Team Providers Name Role Phone Provider, Outside Primary Care Provider Unavailable Encounter Details Date Type Department Care Team Description 09/13/2010 Notes/Trans [facility] Sameera Frances MD [address] [facility] Professional Mail Code [address] [address] [place] [address] [phone] Social History Tobacco Use Types Packs/Day Years Used Date Smoking Tobacco: Never Alcohol Use Standard Drinks/Week Comments Yes 3.3 (1 standard drink = 0.6 oz pure alco hol) Sex Assigned at Date Recorded Not on file documented as of this encounter Progress Notes Sameera Frances MD - 09/16/2010 12:35 [place] [address] [facility]#: [id number] PATIENT: MICHEAL RENE : 1955 DATE: 09/13/2010 PHYSICAL [facility]ICINE [facility] The patient is a quadriplegic I have followed over the years off and on. He has had some difficulty with pressure ulcers. He calls me and tells me that he has a significant ulcer midline, just below his tail bone. Some physician where he lives has examined and called it a stage IV ulcer. He is currently trying to stay off his buttocks. He is not working. I am going to refer him to Plastic Surgery here. There are not resources for him closer to home. Sameera Frances MD Staff Physician Physical Medicine and Rehabilitation Service Received in Learning Center Coordinator: 09/13/2010 15:26 M: 09/14/2010 09:05 [facility] HOMA/srikanht Voice ID: [id number] Document ID: [id number] OR SQL DBA documented in this encounter Plan of Treatment Not on filedocumented as of this encounter Visit Diagnoses Not on filedocumented in this encounter Care Teams Active Directory Engineer Relationship Specialty Start Date End Date Provider, Outside PCP - General 03/13/09 10/22/18 [place] [address] documented as of this encounter
--- OUTSIDE RECORDS SUMMARY | 2022-04-04 10:57 | XMS_ITS | Encounter Summary ---
:1955 Author Organization [facility] Address [address] [place] [address] Phone Care Team Providers Name Role Phone Provider, Outside Primary Care Provider Unavailable Reason for Visit Reason Onset Date Comments Supplies 09/17/2010 Encounter Details Date Type Department Care Team Description 09/17/2010 Telephone [facility] [place] Clinic Alka Jaed RN Supplies [address] [place] [address] [place], [place] [address] Social History Tobacco Use Types Packs/Day Years Used Date Smoking Tobacco: Never Smokeless Tobacco: Never Alcohol Use Standard Drinks/Week Comments Yes 3.3 (1 standard drink = 0.6 oz pure alco hol) once in while Sex Assigned at Date Recorded Not on file documented as of this encounter Miscellaneous Notes Telephone Encounter - Alka Jade RN - 09/17/2010 2:10 PM CST Pt calling for supply list to be faxed to [facility] Shwetha Martin @ [phone]. Pt was seen today by Dr Tavarez and wet to dry dressing was ordered. Pt has a f/u appt scheduled on 09/24/[address] Tavarez. STANT CLINICAL NURSE MANAGER Telephone Encounter - Alka Jade RN - 09/17/2010 1:59 PM CST Message copied by ALKA JADE on MonSep 17, 2010 1:59 PM ------ Message from: EUGENIE OROZCO Created: MonSep 17, 2010 12:56 PM Regarding: wound care orders Contact: TELEPHONE MESSAGE Taken by: Eugenie Orozco, 09/17/2010 12:57 PM Direct to: rn Problem: pt needs his wound care orders, they were not on his AVS Pt. Name: Khanh Rene : 1955 (home) Insurance: PCP: Outside Provider Comment: Expects Return Call at: pt [phone] STANT CLINICAL NURSE MANAGER documented in this encounter Plan of Treatment Not on filedocumented as of this encounter Visit Diagnoses Not on filedocumented in this encounter Care Teams Airborne Mission Systems Superintendent Relationship Specialty Start Date End Date Provider, Outside PCP - General 03/13/09 10/22/18 [place] [address] documented as of this encounter
--- OUTSIDE RECORDS SUMMARY | 2022-04-04 10:57 | XMS_ITS | Encounter Summary ---
:1955 [address] [facility] Address [address] [place] [address] Phone Care Team Providers Name Role Phone Provider, Outside Primary Care Provider Unavailable Encounter Details Date Type Department Care Team Description 08/26/2010 Documentation Only Unspecified Departme nt Unknown, Provider [place] Social History Tobacco Use Types Packs/Day Years Used Date Smoking Tobacco: Never Alcohol Use Standard Drinks/Week Comments Yes 3.3 (1 standard drink = 0.6 oz pure alco hol) Sex Assigned at Date Recorded Not on file documented as of this encounter Progress Notes Unknown, Provider - 09/23/2010 12:00 AM CSTAssociated Order(s): INFORMATION DISCLOSURE AND VENT AIRCRAFT MECHANIC documented in this encounter Plan of Treatment Not on filedocumented as of this encounter Procedures Procedure Name Priority Date/Time Associated Comments Diagnosis INFORMATION 09/23/2010 5:22 PM Results f or this DISCLOSURE HEAT AND VENT AIRCRAFT MECHANIC procedure are i n the results section. documented in this encounter Results INFORMATION DISCLOSURE (09/23/2010 5:22 PM HEAT AND VENT AIRCRAFT MECHANIC) Narrative 09/23/2010 5:22 PM HEAT AND VENT AIRCRAFT MECHANIC Procedure Note Unknown, Provider - 09/23/2010 12:00 AM CST Provider Unknown SCANNED CONSENTS documented in this encounter Visit Diagnoses Not on filedocumented in this encounter Care Teams Pile Driving Superintendent Relationship Specialty Start Date End Date Provider, Outside PCP - General 03/13/09 10/22/18 [place] [address] documented as of this encounter
--- OUTSIDE RECORDS SUMMARY | 2022-04-04 10:57 | XMS_ITS | Encounter Summary ---
:1955 Author Organization [facility] Address [address] [place] [address] Phone Care Team Providers Name Role Phone Provider, Outside Primary Care Provider Unavailable Reason for Visit Reason Onset Date Comments Question 09/22/2010 Encounter Details Date Type Department Care Team Description 09/22/2010 Telephone [facility] Blanca Marti, NILSA Question [address] [address] [address] [place], [place] [address] Social History Tobacco Use Types Packs/Day Years Used Date Smoking Tobacco: Never Smokeless Tobacco: Never Alcohol Use Standard Drinks/Week Comments Yes 3.3 (1 standard drink = 0.6 oz pure alco hol) once in while Sex Assigned at Date Recorded Not on file documented as of this encounter Miscellaneous Notes Telephone Encounter - Angella Jerez RN - 09/22/2010 4:49 PM CST Returned call to patient. He is very frustrated re: his wound care. States he was not told at his visit about his wound cares, states he has been thin for 20 years and no one told him that would be part of the plan. He already had an appt for his chair cushions and no one asked him about that. Pt has appt this Monday with Dr. Loya. Instructed to keep appt and discuss concerns with Dr. Loya. He agreed. ING APPRENTICE Telephone Encounter - Blanca Marti RN - 09/22/2010 10:35 AM CST Pt calling in with frustrations Saw dr. loya who wants pt to see dr. bernstein again before coming back Dr. bernstein wants pt to be seen in [facility] Paperwork faxed to them and pt will call and schedule Pt having questions regarding his care of his wound after seeing dr. loya- felt his appt was so brief with dr. loya and is unsatisfied and would like to speak with nsg staff in surgery clinic Routed to surg clinic RNs Blanca Marti RN, 09/22/2010 10:35 AM ING APPRENTICE documented in this encounter Plan of Treatment Not on filedocumented as of this encounter Visit Diagnoses Not on filedocumented in this encounter Care Teams Process Assistant Relationship Specialty Start Date End Date Provider, Outside PCP - General 03/13/09 10/22/18 [place] [address] documented as of this encounter
--- OUTSIDE RECORDS SUMMARY | 2022-04-04 10:57 | XMS_ITS | Encounter Summary ---
:1955 Author Organization [facility] Address [address] [place] [address] Phone Care Team Providers Name Role Phone Provider, Outside Primary Care Provider Unavailable Reason for Referral Consult/Test/Treat (Routine) - Closed Specialty Diagnoses / Procedures Referred By Contact Refer red To Contact Plastic Surgery / Diagnoses Ulcer Sameera Frances, PLASTIC SURGERY MD [address] [place], [place] [address] Referral ID Status Reason Start Date Expiration Date Visits Requ ested Visits Authorized [id number] Closed 09/13/2010 09/13/2011 1 1 RPRISE BUSINESS ARCHITECT Encounter Details Date Type Department Care Team Description 09/13/2010 Orders Only [facility] [place] Sameera Frances U lcer () (Primary Clinic MD Dx) [address] [place], [place] [address] [place], [place] [phone] (Wo rk) Social History Tobacco Use Types Packs/Day Years Used Date Smoking Tobacco: Never Alcohol Use Standard Drinks/Week Comments Yes 3.3 (1 standard drink = 0.6 oz pure alco hol) Sex Assigned at Date Recorded Not on file documented as of this encounter Plan of Treatment Scheduled Referrals Name Type Priority Associated Diagnoses Order S chedule REFERRAL TO PLASTIC Referral Routine Ulcer () Ordered: 09/13/2010 SURGERY documented as of this encounter Visit Diagnoses Diagnosis Ulcer - Primary Chronic ulcer of unspecified site documented in this encounter Care Teams Human Resources Receptionist Relationship Specialty Start Date End Date Provider, Outside PCP - General 03/13/09 10/22/18 [place] [address] documented as of this encounter
--- OUTSIDE RECORDS SUMMARY | 2022-04-04 10:57 | XMS_ITS | Encounter Summary ---
:1955 Author Organization [facility] Address [address] [place] [address] Phone Care Team Providers Name Role Phone Provider, Outside Primary Care Provider Unavailable Encounter Details Date Type Department Care Team Description 10/19/2010 Refill [facility] Urology Omar Savage MD [address], [address] Research Only [place], [place] [address] Social History Tobacco Use Types Packs/Day Years Used Date Smoking Tobacco: Never Smokeless Tobacco: Never Alcohol Use Standard Drinks/Week Comments Yes 3.3 (1 standard drink = 0.6 oz pure alco hol) once in while Sex Assigned at Date Recorded Not on file documented as of this encounter Miscellaneous Notes Telephone Encounter - Eleni Lopez RN - 10/19/2010 9:03 AM CDT VORB Ditropan 5 mg XL po daily for [address] Savage. Called pt with this information. Telephone Encounter - Eleni Lopez RN - 10/19/2010 8:46 AM CDT Message copied by ELENI LOPEZ on MonOct 19, 2010 8:46 AM ------ Message from: LISSETTE SILVA Created: MonOct 19, 2010 8:18 AM Regarding: Hussein TELEPHONE MESSAGE Taken by: Lissette Silva 10/19/2010 8:19 AM Direct to: Agnes/Rachell Problem: Pt. Name: Khanh Rene : 1955 (home) Insurance: PCP: Outside Provider Comment: Please call [facility] pharmacy regarding getting an alternative for his medication Propantheline. Please call Ange Valdivia Return Call at: [phone] documented in this encounter Plan of Treatment Not on filedocumented as of this encounter Visit Diagnoses Diagnosis Neurogenic bladder - Primary Neurogenic bladder, NOS documented in this encounter Care Teams Electrical Engineering Director Relationship Specialty Start Date End Date Provider, Outside PCP - General 03/13/09 10/22/18 [place] [address] documented as of this encounter
--- OUTSIDE RECORDS SUMMARY | 2022-04-04 10:57 | XMS_ITS | Encounter Summary ---
:1955 Author Organization [facility] Address [address] [place] [address] Phone Care Team Providers Name Role Phone Provider, Outside Primary Care Provider Unavailable Reason for Visit Reason Onset Date Comments Call Back 08/30/2010 Encounter Details Date Type Department Care Team Description 08/30/2010 Telephone [facility] Multispecialty Varsha Knight RN Call Back [address], [address] Multispecialty [place], [place] [address] [phone] [place] [address] (Wo rk) Social History Tobacco Use Types Packs/Day Years Used Date Smoking Tobacco: Never Alcohol Use Standard Drinks/Week Comments Yes 3.3 (1 standard drink = 0.6 oz pure alco hol) Sex Assigned at Date Recorded Not on file documented as of this encounter Miscellaneous Notes Telephone Encounter - Varsha Knight RN - 08/30/2010 4:23 PM SURVEYOR MINE Spoke with patient & let him know that Blanca Ziegler was working on this (see her telephone encounter from earlier today). Pt states he is using Duoderm for this pressure sore but thinks it may need other intervention. Let him know our office would be in touch soon regarding this appt. 08/31/10 830 AM. I called and talked to Khanh ([phone]) he is a Dr Frances Quadriplegia patient and he does have a open sore on his bottom, he did call scheduling at [facility] Neurology ([phone])and could not get in to see Dr Frances in her [facility] until September. I informed Khanh that I will route this phone message to Dr Frances plus I will page her to try to talk to her about Khanh. Blanca Ziegler RN EYOR MINE documented in this encounter Plan of Treatment Not on filedocumented as of this encounter Visit Diagnoses Not on filedocumented in this encounter Care Teams Network Designer Relationship Specialty Start Date End Date Provider, Outside PCP - General 03/13/09 10/22/18 [place] [address] documented as of this encounter
--- OUTSIDE RECORDS SUMMARY | 2022-04-04 10:57 | XMS_ITS | Encounter Summary ---
:1955 Author Organization [facility] Address [address] [place] [address] Phone Care Team Providers Name Role Phone Provider, Outside Primary Care Provider Unavailable Reason for Visit Reason Onset Date Comments Refill Request 04/30/2010 Encounter Details Date Type Department Care Team Description 04/30/2010 Refill [facility] Urology Omar Savage MD Refill Request [address] Research Only [place], [place] [address] Social History Tobacco Use Types Packs/Day Years Used Date Smoking Tobacco: Never Alcohol Use Standard Drinks/Week Comments Yes 3.3 (1 standard drink = 0.6 oz pure alco hol) Sex Assigned at Date Recorded Not on file documented as of this encounter Miscellaneous Notes Telephone Encounter - Ofelia Lopez RN - 04/30/2010 4:34 PM CDT Refilled pt's Nitrofurantoin per Dr. Savaeg Sept note per faxed request. documented in this encounter Plan of Treatment Not on filedocumented as of this encounter Visit Diagnoses Diagnosis Neurogenic bladder - Primary Neurogenic bladder, NOS documented in this encounter Care Teams Homeopathic Doctor Relationship Specialty Start Date End Date Provider, Outside PCP - General 03/13/09 10/22/18 [place] [address] documented as of this encounter
--- OUTSIDE RECORDS SUMMARY | 2022-04-04 10:57 | XMS_ITS | Encounter Summary ---
:1955 Author Organization [facility] Address [address] [place] [address] Phone Care Team Providers Name Role Phone Provider, Outside Primary Care Provider Unavailable Reason for Visit Reason Onset Date Comments Call Back 09/06/2010 Encounter Details Date Type Department Care Team Description 09/06/2010 Telephone [facility] Neu[facility] Clini c Vickie Odell RN Call Back [address] [address] [address] [place], [place] [address] Social History Tobacco Use Types Packs/Day Years Used Date Smoking Tobacco: Never Alcohol Use Standard Drinks/Week Comments Yes 3.3 (1 standard drink = 0.6 oz pure alco hol) Sex Assigned at Date Recorded Not on file documented as of this encounter Miscellaneous Notes Telephone Encounter - Vickie Odell RN - 09/06/2010 2:03 PM CST D: Patient states that he has a pressure sore right buttock size of a 50 cent piece. Patient states that he does not have a boner meat in [facility]. R: Patient quadriplegic states that he would like to speak directly with . Routing to PER AUTOMATIC Telephone Encounter - Vickie Odell RN - 09/06/2010 1:59 PM CST Message copied by VICKIE ODELL on MonSep 06, 2010 1:59 PM ------ Message from: BRANDEE TALAMANTES Created: MonSep 06, 2010 1:52 PM 09/06/2010 1:53 PM Khanh Edgard @ADRIANA@ 1955 Questions regarding a referral for a pressure sore from Dr Frances. Best number to call patient back: [phone]. Best time of day to reach patient:anytime. PER AUTOMATIC documented in this encounter Plan of Treatment Not on filedocumented as of this encounter Visit Diagnoses Not on filedocumented in this encounter Care Teams Nascar Driver Relationship Specialty Start Date End Date Provider, Outside PCP - General 03/13/09 10/22/18 [place] [address] documented as of this encounter
--- OUTSIDE RECORDS SUMMARY | 2022-04-04 10:57 | XMS_ITS | Encounter Summary ---
:1955 Author Organization [facility] Address [address] [place] [address] Phone Care Team Providers Name Role Phone Provider, Outside Primary Care Provider Unavailable Reason for Visit Reason Onset Date Comments Supplies 09/20/2010 Encounter Details Date Type Department Care Team Description 09/20/2010 Telephone [facility] Clinic Alka Jade RN Supplies [address] [place] [address] [place], [place] [address] Social History Tobacco Use Types Packs/Day Years Used Date Smoking Tobacco: Never Smokeless Tobacco: Never Alcohol Use Standard Drinks/Week Comments Yes 3.3 (1 standard drink = 0.6 oz pure alco hol) once in while Sex Assigned at Date Recorded Not on file documented as of this encounter Miscellaneous Notes Telephone Encounter - Alka Jade RN - 09/20/2010 10:02 AM CST Verified that [facility] pharmacy received fax for supplies on 09/17/10. PRESIDENT OF DEVELOPMENT Telephone Encounter - Alka Jade RN - 09/20/2010 10:00 AM CST Message copied by ALKA JADE on MonSep 20, 2010 10:00 AM ------ Message from: CAMMY STUBBS Created: MonSep 20, 2010 9:49 AM Contact: TELEPHONE MESSAGE Taken by: Cammy Stubbs, 09/20/2010 9:50 AM Direct to: Ivan: script needed to be sent to pharmacy Pt. Name: Khanh Rene : 1955 (home) Insurance: PCP: Outside Provider Comment: [facility] pharmacy [phone] Prescribed supplies Expects Return Call at: home see above PRESIDENT OF DEVELOPMENT documented in this encounter Plan of Treatment Not on filedocumented as of this encounter Visit Diagnoses Not on filedocumented in this encounter Care Teams Ornamental Ironworker Relationship Specialty Start Date End Date Provider, Outside PCP - General 03/13/09 10/22/18 [place] [address] documented as of this encounter
--- OUTSIDE RECORDS SUMMARY | 2022-04-04 10:57 | XMS_ITS | Encounter Summary ---
:1955 Author Organization [facility] Address [address] [place] [address] Phone Care Team Providers Name Role Phone Provider, Outside Primary Care Provider Unavailable Reason for Visit Reason Onset Date Comments Call Back 09/30/2010 Encounter Details Date Type Department Care Team Description 09/30/2010 Nurse Triage [facility] Quang Toscano, Call Back [facility] [id number] [place] [address] Social History Tobacco Use Types Packs/Day Years Used Date Smoking Tobacco: Never Smokeless Tobacco: Never Alcohol Use Standard Drinks/Week Comments Yes 3.3 (1 standard drink = 0.6 oz pure alco hol) once in while Sex Assigned at Date Recorded Not on file documented as of this encounter Miscellaneous Notes Telephone Encounter - Mari Odell RN - 09/30/2010 4:56 PM CST D: Patient states that he missed phone call and requests that she call back again at [phone]. R: routing to GER REVIEW Telephone Encounter - Quang Toscano RN - 09/30/2010 4:24 PM MANAGER REVIEW Message copied by QUANG TOSCANO on MonSep 30, 2010 4:24 PM ------ Message from: SELMA SCHMITT Created: MonSep 30, 2010 4:20 PM >> SELMA SCHMITT 09/30/2010 04:20 PM Patient: Khanh Rene : 1955 Caller would like to speak to a nurse regarding a medical condition. Symptoms: PT IS RETURNING CALL BACK FRON DR CHRISTIANO TINAJERO IN NEUROMUSCULAR Duration: NA Primary Care Physician: CHRISTIANO TINAJERO Treating Physician: CHRISTIANO TINAJERO Phone number for return call: [phone] GER REVIEW documented in this encounter Plan of Treatment Not on filedocumented as of this encounter Visit Diagnoses Not on filedocumented in this encounter Care Teams Afterschool Relationship Specialty Start Date End Date Provider, Outside PCP - General 03/13/09 10/22/18 [place] [address] documented as of this encounter
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
--- OUTSIDE RECORDS SUMMARY | 2022-04-04 10:57 | XMS_ITS | Encounter Summary ---
:1955 Author Organization [facility] Address [address] [place] [address] Phone Care Team Providers Name Role Phone Provider, Outside Primary Care Provider Unavailable Encounter Details Date Type Department Care Team Description 04/01/2010 Documentation Only Unspecified Departme nt Unknown, Provider [place] Social History Tobacco Use Types Packs/Day Years Used Date Smoking Tobacco: Never Alcohol Use Standard Drinks/Week Comments Yes 3.3 (1 standard drink = 0.6 oz pure alco hol) Sex Assigned at Date Recorded Not on file documented as of this encounter Progress Notes Unknown, Provider - 04/13/2010 12:00 AM CDTAssociated Order(s): INFORMATION DISCLOSURE documented in this encounter Plan of Treatment Not on filedocumented as of this encounter Procedures Procedure Name Priority Date/Time Associated Comments Diagnosis INFORMATION 04/13/2010 1:22 PM Results f or this DISCLOSURE CDT procedure are i n the results section. documented in this encounter Results INFORMATION DISCLOSURE (04/13/2010 1:22 PM CDT) Narrative 04/13/2010 1:22 PM CDT Procedure Note Unknown, Provider - 04/13/2010 12:00 AM CDT Provider Unknown SCANNED CONSENTS documented in this encounter Visit Diagnoses Not on filedocumented in this encounter Care Teams Work Environment Safety Inspector Relationship Specialty Start Date End Date Provider, Outside PCP - General 03/13/09 10/22/18 [place] [address] documented as of this encounter
--- OUTSIDE RECORDS SUMMARY | 2022-04-04 10:57 | XMS_ITS | Encounter Summary ---
:1955 Author Organization [facility] Address [address] [place], [place] [address] [address] Phone Care Team Providers Name Role Phone Provider, Outside Primary Care Provider Unavailable Encounter Details Date Type Department Care Team Description 05/13/2010 Hospital Encounter [facility] Ultrasound Omar Savage MD [address] Research Only [address] [place], [place] [address] Social History Tobacco Use Types Packs/Day Years Used Date Smoking Tobacco: Never Alcohol Use Standard Drinks/Week Comments Yes 3.3 (1 standard drink = 0.6 oz pure alco hol) Sex Assigned at Date Recorded Not on file documented as of this encounter Medications at Time of Discharge Medication Sig Dispensed Refills Start Date End Date nitrofurantoin Take 50 mg by 15 Cap 11 04/30/201009/05/ 014 (MACRODANTIN) 50 mg oral mouth. One tablet capsuleIndications: every other day Neurogenic bladder propantheline Take 15 mg by 120 11 01/29/2009 10/02/19 11 (PRO-BANTHINE) 15 mg oral mouth. May have two tablet pills twice daily for bladder spasms documented as of this encounter Plan of Treatment Not on filedocumented as of this encounter Procedures Procedure Name Priority Date/Time Associated Diagnosis Comme nts ULT KIDNEYS Routine 05/13/2010 2:34 PM Neurogenic bladder Res ults for this COMPLETE CDT procedure are i n the results section. documented in this encounter Results ULT KIDNEYS COMPLETE (05/13/2010 2:34 PM CDT) Anatomical Region Laterality Modality Abdomen Ultrasound Specimen (Source) Anatomical Collection Method Collection Time Re ceived Time Location / / Volume Laterality 05/13/2010 2:34 PM CDT Impressions 05/13/2010 3:56 PM CDT Impression: Normal renal ultrasound. Reading Radiologist: Walter Arcos V Reading Resident: Vijay Puckett Narrative 05/13/2010 3:56 PM CDT History: Neurogenic bladder Comparison: Ultrasound 09/02/2005 Technique: 1. ??Mcmanus scale imaging of the kidneys a nd urinary bladder 2. ??Color Doppler documentation of bloo d flow within the kidneys Findings: The right kidney measures 11.0 cm and shows normal thickness cortex. There is no evidence of stone or hydronephrosis. The left kidney measures 11.3 cm ??and s hows normal thickness cortex. There is no evidence of stone or hydronephrosis. The urinary bladder is distended with an echoic urine. Procedure Note Walter Arcos V, MBBS - 05/13/2010Forma tting of this note might be different from the original. History: Neurogenic bladder Comparison: Ultrasound 09/02/2005 Technique: 1. Mcmanus scale imaging of the kidneys and urinary bladder 2. Color Doppler documentation of blood flow within the kidneys Findings: The right kidney measures 11.0 cm and shows normal thickness cortex. There is no evidence of stone or hydronephrosis. The left kidney measures 11.3 cm and pilo ws normal thickness cortex. There is no evidence of stone or hydronephrosis. The urinary bladder is distended with an echoic urine. IMPRESSION Impression: Normal renal ultrasound. Reading Radiologist: Walter Arcos V Reading Resident: Vijay Puckett Omar Savage MD ULT documented in this encounter Visit Diagnoses Diagnosis Neurogenic bladder Neurogenic bladder, NOS documented in this encounter Care Teams Kelp Cutter Relationship Specialty Start Date End Date Provider, Outside PCP - General 03/13/09 10/22/18 [place] [address] documented as of this encounter
--- OUTSIDE RECORDS SUMMARY | 2022-04-04 10:57 | XMS_ITS | Encounter Summary ---
:1955 Author Organization [facility] Address [address] [place] [address] Phone Care Team Providers Name Role Phone Provider, Outside Primary Care Provider Unavailable Encounter Details Date Type Department Care Team Description 09/17/2010 Hospital Encounter [place] Arnold Vora [address] MD [place], [place] [address] [address] [facility] [phone] [place], [place] [id number] Social History Tobacco Use Types Packs/Day Years [...] Take 50 mg by 15 Cap 11 04/30/2010 014 (MACRODANTIN) 50 mg oral mouth. One tablet capsuleIndications: every other day Neurogenic bladder propantheline Take 15 mg by 120 11 01/29/2009 10/02/19 11 (PRO-BANTHINE) 15 mg oral mouth. May have two tablet pills twice daily for bladder spasms documented as of this encounter Plan of Treatment Not on filedocumented as of this encounter Procedures Procedure Name Priority Date/Time Associated Diagnosis Comme nts XR PELVIS WITH BOTH Routine 09/17/2010 10:28 Quadriplegia () Results for this LAT HIP AM DELIVERY AND MAIL SORTER procedure are i n the results section. documented in this encounter Results (ABNORMAL) XR PELVIS WITH BOTH LAT HIP (09/17/2010 10:28 AM DELIVERY AND MAIL SORTER) Anatomical Region Laterality Modality Pelvis Computed Radiography Specimen (Source) Anatomical Collection Method Collection Time Re ceived Time Location / / Volume Laterality 09/17/2010 10:28 AM DELIVERY AND MAIL SORTER Impressions 09/17/2010 10:35 AM DELIVERY AND MAIL SORTER Impression: Severe osteoarthritis involving both hips with postsurgical fixation of a left hip fracture. There is no cortical irregularity to suggest osteomyelitis. This however lucency surrounding a fe moral IM nail. Three-phase bone scan may be beneficial to assess for infection surrounding the nail if clinically indicated. Reading Radiologist: Khanh Brunson Narrative 09/17/2010 10:35 AM DELIVERY AND MAIL SORTER History: Rule out osteo. Comparison: None. Findings [...] Radiologist: Khanh Brunson Arnold Mejía MD X-RAY documented in this encounter Visit Diagnoses Diagnosis Quadriplegia () Quadriplegia, unspecified documented in this encounter Care Teams Buffing And Polishing Wheel Repairer Relationship Specialty Start Date End Date Provider, Outside PCP - General 03/13/09 10/22/18 [place] [address] documented as of this encounter
--- OUTSIDE RECORDS SUMMARY | 2022-04-04 10:57 | XMS_ITS | Encounter Summary ---
:1955 Author Organization [facility] Address [address] [place] [address] Phone Care Team Providers Name Role Phone Provider, Outside Primary Care Provider Unavailable Reason for Visit Reason Comments Follow-up 13 months follow up visit [facility] Dr Frances HFA Monday PM&R Clinic for DX of C7 Spinal Cord Injury Encounter Details Date Type Department Care Team Description 04/20/2010 Office Visit HFA Neuromuscular Sameera Frances Don plegia () Clinic MD Valery (Primary Dx) [address], [address] [place] [address] Mail Code [address] [place], [place] [address] [place], [place] [phone] [address] Social History Tobacco Use Types Packs/Day Years Used Date Smoking Tobacco: Never Alcohol Use Standard Drinks/Week Comments Yes 3.3 (1 standard drink = 0.6 oz pure alco hol) Sex Assigned at Date Recorded Not on file documented as of this encounter Last Filed Vital Signs Vital Sign Reading Time Taken Comments Blood Pressure 105/72 04/20/2010 1:39 PM CDT Pulse 95 04/20/2010 1:39 PM CDT Temperature - - Respiratory Rate 14 04/20/2010 1:39 PM CDT Oxygen Saturation - - Inhaled Oxygen Concentration - - Weight - - Height - - Body Mass Index - - documented in this encounter Patient Instructions Patient InstructionsBlanca Ziegler RN - 04/20/2010 11:01 AM CDT After Visit Summary (AVS) mailed 1 year follow up visit with Dr Frances in [facility] Referral/orders from Dr Frances for: 1) Wheelchair repair/s. Faxed to [facility] ([phone]) Referral to [facility]) Formal Wheelchair and wheeled mobility clinic faxedto scheduling to call Micheal to get scheduled ([phone]) Blanca Ziegler RN documented in this encounter Progress Notes Sameera Frances MD - 05/13/2010 3:35 PM CDT [facility] [address] [place] [address] (fax) MEDREC#: [id number] PATIENT: MICHEAL FLETCHER : 1955 DATE: 04/20/2010 NEUROMUSCULAR PHYSICAL MEDICINE NOTE HISTORY OF PRESENT ILLNESS: Micheal Fletcher is a 55-year-old gentleman with a C7 [employer] B spinal cord injury onset March 16, 1989. He is here today for annual follow-up. He continues to have low back pain. He did not pursue a lumbar support. He said he lost the prescription and he would like to get a new one. It remains quite vague, not radiating and aggravated with transfers. Past medical history is pertinent for urological assessment and no other concerns. Social history is unchanged. 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 REVIEW OF SYSTEMS: A total of 10 systems were reviewed. Pertinent positives and negatives include no hip pain. No skin breakdown. He is very careful with his weight shifting to prevent breakdown that he has had in the past. He is not having any troubles with urinary incontinence between catheterizations. He occasionally has some blood in his stools from hemorrhoids. He has had no shortness of breath related to exertion. No change in the strength or sensation in his hands. MEDICATIONS: Please see the electronic medical record. ALLERGIES: See the electronic medical record. EXAMINATION: I find a lean, cooperative gentleman. Blood pressure 105/72, respirations 14, O2 sats are 95%. He sits in his wheelchair with a slight C curve. Upper extremity strength is within normal limits with the exception of grade 4 wrist flexors and trace intrinsic muscles of his hands. Sensation is normal to C7. It is present to approximately T2 or T3 and absent below this. He has no volitional control of his abdominal muscles or his lower extremity muscles. Range of motion testing finds lack of full extension by a few degrees in both knees. Shoulders, elbows and wrists are within normal limits. He is able to dorsiflex his ankles to neutral. His skin on his back is intact. Exam of his wheelchair finds it to be broken as far the spokes. The [id number] stability is poor. The back of the wheelchair is completely stretched out and not providing support for him. It is not producing any visible skin abnormalities, however. ASSESSMENT: C7 [place] A chronic spinal cord injury with a zone of partial preservation to T2, a stable neurologic exam, adequate management of bowel and bladder. Hemorrhoids are present and complications thereof are unchanged. His spasticity is well managed. His back pain persists and is most likely musculoskeletal in nature. His wheelchair is in need of emergent repairs for stability and he has a history of skin breakdown I believe due to wheelchair positioning. PLAN: I wrote a prescription for the repairs of his wheelchair and recommended he see the [facility] for a mapping of his buttocks and a more complete evaluation of his wheelchair. I do not think we need any changes in medications for spasticity. Sameera Frances MD Staff Physician Physical Medicine and Rehabilitation Service Received in Engineering Lecturer: 05/11/2010 20:55 M: 05/13/2010 10:09 ms CLR/ms Voice ID: [id number] Document ID: [id number] cc:[place] [address] Sameera Frances MD - 04/20/2010 11:01 AM CDT See dictation documented in this encounter Nursing Notes 04/20/2010 10:00 AM CDT >> Blanca Ziegler RN MonApr 23, 2010 1:47 PM 13 months follow up visit with Dr Frances [facility] for DX C7 Spinal Card injury that occurred 03/16/89. In manual wheelchair. Routine follow up visit with Dr Frances. Blanca Ziegler RN documented in this encounter Plan of Treatment Not on filedocumented as of this encounter Visit Diagnoses Diagnosis Quadriplegia () - Primary Quadriplegia, unspecified documented in this encounter Care Teams Answerer Relationship Specialty Start Date End Date Provider, Outside PCP - General 03/13/09 10/22/18 [place] [address] documented as of this encounter
--- OUTSIDE RECORDS SUMMARY | 2022-04-04 10:57 | XMS_ITS | Encounter Summary ---
:1955 Author Organization [facility] Address [address] [place] [address] [place] [address] Phone Care Team Providers Name Role Phone Provider, Outside Primary Care Provider Unavailable Encounter Details Date Type Department Care Team Description 04/07/2010 Telephone HFA Urology Omar Savage MD [address] [facility], [address] Research Only [place], [place] [address] Social History Tobacco Use Types Packs/Day Years Used Date Smoking Tobacco: Never Alcohol Use Standard Drinks/Week Comments Yes 3.3 (1 standard drink = 0.6 oz pure alco hol) Sex Assigned at Date Recorded Not on file documented as of this encounter Miscellaneous Notes Telephone Encounter - Danna Bautista RN - 04/08/2010 11:33 AM CDT Patient called back. Notified of appointment date/time for US. Telephone Encounter - Eleni Lopez RN - 04/07/2010 3:50 PM CDT Ultrasound 04/20 at 10:15. LM for pt to call. Telephone Encounter - Eleni Lopez RN - 04/07/2010 3:46 PM CDT Message copied by ELENI LOPEZ on MonApr 07, 2010 3:46 PM ------ Message from: QUANG KILGORE Created: MonApr 07, 2010 3:10 PM Regarding: BRITTNEY Contact: TELEPHONE MESSAGE Taken by: Quang Kilgore, 04/07/2010 3:11 PM Direct to:VERNON/SHER Problem: WOULD LIKE TO GET HIS ULTRASOUND SCHEDULED FOR 04-20-10 AROUND 10:00, HE HAS AN APPT HERE WITH DR. BALL AT 11:30. PLEASE CALL HIM AT [phone] Pt. Name: Khanh Rene : 1955 (home) Insurance: PCP: Outside Provider Comment: Expects Return Call at: documented in this encounter Plan of Treatment Not on filedocumented as of this encounter Visit Diagnoses Not on filedocumented in this encounter Care Teams Belt Conveyor Drier Relationship Specialty Start Date End Date Provider, Outside PCP - General 03/13/09 10/22/18 [place] [address] documented as of this encounter
--- OUTSIDE RECORDS SUMMARY | 2022-04-04 10:58 | XMS_ITS | Encounter Summary ---
:1955 Author Organization [facility] Address [address] [place] [address] Phone Care Team Providers Name Role Phone Unavailable Primary Care Provider Unavailable Encounter Details Date Type Department Care Team Description 05/10/2005 Notes/Trans Unknown, Provider Social History Tobacco Use Types Packs/Day Years Used Date Smoking Tobacco: Never Assessed Sex Assigned at Date Recorded Not on file documented as of this encounter Progress Notes Interface, Stone Layout Marker-In - 11/15/2005 12:30 AM CDT [facility] MEDREC#: [id number] [place] [address] PATIENT: MICHEAL FLETCHER : 1955 NARRATIVE NOTES DATE: 05/10/2005 Page 1 [facility] Micheal Fletcher is a 50-year-old right-handed gentleman with a spinal cord injury of 16 years who is here today for routine followup. He does not have any specific concerns today, but has not seen me for a few years and just wants a routine check up. PAST MEDICAL HISTORY: Pertinent for a right femur fracture treated nonsurgically and successfully with bed rest. The fracture occurred in August 2004. SOCIAL HISTORY: He is happily for 21 years. He is a father and a grandfather living in [place]. REVIEW OF SYSTEMS: A total of ten systems were reviewed. He has occasional incontinence of his bowels with his bowel program. He uses a suppository as his abdominal distention tells him he should. That reaches out to be every two to three days. He continues with intermittent cathing. Has a followup with Dr. Savage for this in the near future. He has had one pressure sore on his left buttock healed with a few days of bed rest. No troubles with spasms. They are present, but not disabling or painful. No troubles with depression. Equipment - he has a new PingThingsie wheelchair and a J cushion with extra padding and a commode at home. There are no concerns there. Weight is stable. MEDICATIONS: Macrodantin and Ditropan. EXAMINATION: He is alert, lean, cooperative gentleman who is sitting in his chair in his C curve, but seems to be quite stable. Strength is within normal limits in both upper extremities until we get to wrist flexion where he is grade 4 and he has very little intrinsic muscles in his hands. Sensation is normal to C7, present to T6, and absent below. He has no volitional activity in his abdominal musculature or lower extremities. Range of motion testing is within normal limits in both upper extremities and the left lower extremity right knee extension is lacking of about 5 to 10 degrees. He has no lower extremity edema. He has a very mild supraspinatous pain with testing on the left, negative Hawkin's bilaterally. Strength of his external rotators is very good. ASSESSMENT: C7 Alaina A chronic spinal cord injury. Stable neurologic examination. Adequate management of neurogenic bowels, neurogenic bladder to be followed up with Dr. Savage. No musculoskeletal concerns. Adequate management of insensate skin. No equipment concerns. PLAN: He is doing quite well. Did not need any prescriptions or equipment from me today. I did educate him about aging with a spinal cord injury and to not ignore shoulder pain as that could be very disabling for him. Follow up on a p.r.n. basis. Sameera Frances MD Staff Physician Physical Medicine and Rehabilitation Service Received in Stone Layout Marker: 05/10/2005 17:00:07 (M: 05/12/2005 12:51:56/[facility]) [facility]/cme Voice ID: [id number] Document ID: [id number] cc: This document was electronically signed by Sameera Frances MD on 06/07/2005 14:43:43. documented in this encounter Plan of Treatment Not on filedocumented as of this encounter Visit Diagnoses Not on filedocumented in this encounter
--- OUTSIDE RECORDS SUMMARY | 2022-04-04 10:58 | XMS_ITS | Encounter Summary ---
:1955 Author Organization [facility] Address [address] [place] [id number] Phone Care Team Providers Name Role Phone Provider, Outside Primary Care Provider Unavailable Reason for Visit Reason Onset Date Comments Refill Request 10/21/2009 Encounter Details Date Type Department Care Team Description 10/21/2009 Refill HFA Urology Omar Savage MD Refill Request [address] [facility], [address] Research Only [place], [place] [address] Social History Tobacco Use Types [...] NOS documented in this encounter Care Teams Land Agent Relationship Specialty Start Date End Date Provider, Outside PCP - General 03/13/09 10/22/18 [place] [address] documented as of this encounter
--- OUTSIDE RECORDS SUMMARY | 2022-04-04 10:58 | XMS_ITS | Encounter Summary ---
:1955 Author Organization [facility] Address [address] [place] [address] Phone Care Team Providers Name Role Phone Unavailable Primary Care Provider Unavailable Encounter Details Date Type Department Care Team Description 10/12/2001 Orders Only [facility] XRAY [address] [place], [place] [address] Social History Tobacco Use Types Packs/Day Years Used Date Smoking Tobacco: Never Assessed Sex Assigned at Date Recorded Not on file documented as of this encounter Plan of Treatment Not on filedocumented as of this encounter Procedures Procedure Name Priority Date/Time Associated Diagnosis Comme nts XR CHEST 2 VIEWS PA Routine 10/12/2001 12:00 PM R esults for this + LAT* PROFESSIONAL VOLLEYBALL PLAYER procedure are i n the results section. ULT KIDNEYS Routine 10/12/2001 11:22 AM Results for this COMPLETE PROFESSIONAL VOLLEYBALL PLAYER procedure are i n the results section. documented in this encounter Results XR CHEST 2 VIEWS PA & LAT (10/12/2001 12:00 PM PROFESSIONAL VOLLEYBALL PLAYER) Anatomical Region Laterality Modality Chest Digital Radiography Specimen (Source) Anatomical Collection Method Collection Time Re ceived Time Location / / Volume Laterality 10/12/2001 12:00 PM PROFESSIONAL VOLLEYBALL PLAYER Impressions 10/14/2001 3:54 PM PROFESSIONAL VOLLEYBALL PLAYER : 1. ??NO PULMONARY FIBROSIS OR AIR-SPACE INFILTRATE SEEN. 2. ??STABLE RIGHT LOWER LOBE PULMONARY N ODULE, LIKELY CALCIFIED. 3. ??INTERVAL MORE PROMINENT DENSITY OVE R THE MEDIAL ASPECT OF THE RIGHT APEX, OF UNCERTAIN CLINICAL SIGNIFICANCE . ??FURTHER EVALUATION WITH LORDOTIC VIEW MAY BE HELPFUL. ASI END: RELEASE RESULTS: (Y) END RESULT: IMPRESSION Narrative 10/14/2001 3:54 PM PROFESSIONAL VOLLEYBALL PLAYER Final Report EXAM: ?? CHEST 2 VIEWS PA & LAT ?- ??10/12/2001 12:00PM SUSPECTED PATHOLOGY: SYMPTOMS AND REASONS:R/O FIBROSIS WORKING DIAGNOSIS: COMPARISON: ??04/03/97. FINDINGS: ??There is no pulmonary fibros is. ??There is no air- space infiltrate. ??Ill-defined hyperden se pulmonary nodule in the right lower lobe is again seen similar to the previous exam. ??The left medial apical pleural thickening is also stable . ??The opacity in the medial aspect of the right apex is more prominent. ??T he cardiac silhouette and mediastinum are unremarkable. Procedure Note Theresa Sánchez MD - 01/09/2006 Final Report EXAM: CHEST 2 VIEWS PA & LAT - 2 12:00PM SUSPECTED PATHOLOGY: SYMPTOMS AND REASONS:R/O FIBROSIS WORKING DIAGNOSIS: COMPARISON: 04/03/97. FINDINGS: There is no pulmonary fibrosis . There is no air- space infiltrate. Ill-defined hyperdense pulmonary nodule in the right lower lobe is again seen similar to the previous exam. The left medial apical pleural thickening is also stable . The opacity in the medial aspect of the right apex is more prominent. The cardiac silhouette and mediastinum are unremarkable. IMPRESSION: 1. NO PULMONARY FIBROSIS OR AIR-SPACE IN FILTRATE SEEN. 2. STABLE RIGHT LOWER LOBE PULMONARY NOD ULE, LIKELY CALCIFIED. 3. INTERVAL MORE PROMINENT DENSITY OVER THE MEDIAL ASPECT OF THE RIGHT APEX, OF UNCERTAIN CLINICAL SIGNIFICANCE . FURTHER EVALUATION WITH LORDOTIC VIEW MAY BE HELPFUL. ASI END: RELEASE RESULTS: (Y) END RESULT: IMPRESSION Omar Savage MD X-RAY ULT KIDNEY COMPLETE (10/12/2001 11:22 AM PROFESSIONAL VOLLEYBALL PLAYER) Anatomical Region Laterality Modality Abdomen Ultrasound Specimen (Source) Anatomical Collection Method Collection Time Re ceived Time Location / / Volume Laterality 10/12/2001 11:22 AM PROFESSIONAL VOLLEYBALL PLAYER Impressions 10/15/2001 4:06 PM PROFESSIONAL VOLLEYBALL PLAYER : 1. ??NO RENAL STONES IDENTIFIED. 2. ??MILD CORTICAL THINNING BILATERALLY. ??THIS MAY INDICATE MEDICAL RENAL DISEASE. I have personally reviewed the image(s) and initial interpretation, and I agree with the findings. ASI END: RELEASE RESULTS: (Y) END RESULT: IMPRESSION Narrative 10/15/2001 4:06 PM PROFESSIONAL VOLLEYBALL PLAYER Final Report EXAM: ?? RENAL US: [place] KIDNEYS ?- ??10/12/2001 11:22AM SUSPECTED PATHOLOGY: SYMPTOMS AND REASONS:R/O FIBROSIS WORKING DIAGNOSIS: CLINICAL HISTORY: ??Evaluate for renal s tones. COMPARISON: ??04/03/97. FINDINGS: ??The right kidney measures 11 .2 x 4.3 x 5.2 cm. ??The left kidney ??measures 11.9 x 5.4 x 5.5 cm. ? ?There is mild cortical thinning bilaterally. ?? No stones, masses or cys ts are visualized in either kidney. There is no ??hydronephrosis. 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 Procedure Note Pernell Strickland - 01/09/2006Formatti ng of this note might be different from the original. Final Report EXAM: RENAL US: [place] KIDNEYS - 002 11:22AM SUSPECTED PATHOLOGY: SYMPTOMS AND REASONS:R/O FIBROSIS WORKING DIAGNOSIS: CLINICAL HISTORY: Evaluate for renal sto danica. COMPARISON: 04/03/97. FINDINGS: The right kidney measures 11.2 x 4.3 x 5.2 cm. The left kidney measures 11.9 x 5.4 x 5.5 cm. The re is mild cortical thinning bilaterally. No stones, masses or cysts are visualized in either kidney. There is no hydronephrosis. 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 IMPRESSION: 1. NO RENAL STONES IDENTIFIED. 2. MILD CORTICAL THINNING BILATERALLY. T HIS MAY INDICATE MEDICAL RENAL DISEASE. I have personally reviewed the image(s) and initial interpretation, and I agree with the findings. ASI END: RELEASE RESULTS: (Y) END RESULT: IMPRESSION Omar Savage MD ULT documented in this encounter Visit Diagnoses Not on filedocumented in this encounter
--- OUTSIDE RECORDS SUMMARY | 2022-04-04 10:58 | XMS_ITS | Encounter Summary ---
:1955 Author Organization [facility] Address [address] [place] [facility] [place] [address] Phone Care Team Providers Name Role Phone Unavailable Primary Care Provider Unavailable Encounter Details Date Type Department Care Team Description 01/29/2001 Orders Only [facility] Sameera Frances MD [address] [facility] [address] [place], [place] [address] Mail Code [address] [place] [address] (Wo rk) Social History Tobacco Use Types Packs/Day Years Used Date Smoking Tobacco: Never Assessed Sex Assigned at Date Recorded Not on file documented as of this encounter Plan of Treatment Not on filedocumented as of this encounter Procedures Procedure Name Priority Date/Time Associated Diagnosis Comme nts URINE CULTURE Routine 01/29/2001 3:37 PM Results for this CDT procedure are i n the results section. URINALYSIS,TOTAL Routine 01/29/2001 3:37 PM Resul ts for this CDT procedure are i n the results section. documented in this encounter Results URINE CX (01/29/2001 3:37 PM CDT) [facility] Method Time Signature Urine Cult [facility] Test Name ? Collected on --------- ? MB Urine Culture ?29-JAN-2001 15:37 Specimen: Midstream Urine Body Site: FINAL ?Verified: 31-JAN-2001 10:24 ? 10,000 - 100,000 colonies/ ml Mixed gram positive arthur. ? Probable contamination. Suggest recoll ect specimen. Specimen Anatomical Collection Method Collection Time Receive d Time (Source) Location / / Volume Laterality Urine Midstream. 01/29/2001 3:37 PM 01/31 CDT 10:25 AM CDT Narrative [facility] - 01/31/2001 10:25 AM CDT Ordered by an unspecified provider. Provider Unknown LAB MICROBIOLOGY Performing Organization Address City/State/ZIP Code Phon e Number [facility] [place] [address] LAB URINALYSIS, TOTAL (01/29/2001 3:37 PM CDT) [facility] Method Time Signature Color YELLOW YELLOW [facility] Appearance CLEAR CLEAR [facility] Urine Glucose NEGATIVE NEGATIVE [facility] Bili UA NEGATIVE NEGATIVE [facility] Ketones NEGATIVE NEGATIVE [facility] Specific [place] 1.010 1.003 - [facility] 1.030 Blood Ur TRACE Neg-Trace [facility] PH Urine 6.5 5.0 - 7.0 [facility] Protein Ur NEGATIVE NEGATIVE [facility] Urobilinogen 0.2 0.2 - 1.0 [facility] EU/dL Nitrite Ur NEGATIVE NEGATIVE [facility] Leuk Est TRACE Neg-Trace [facility] Microscopic [facility] WBC Ur 0 - 5 0 - 5 [facility] Trans Epith 1+ [facility] Sperm 1+ [facility] Specimen Anatomical Collection Method Collection Time Receive d Time (Source) Location / / Volume Laterality Urine 01/29/2001 3:37 PM 1 4:56 CDT PM CDT Narrative [facility] - 01/29/2001 4:56 PM CDT Ordered by an unspecified provider. Provider Unknown LABORATORY Performing Organization Address City/State/ZIP Code Phon e Number [facility] [place] [address] LAB documented in this encounter Visit Diagnoses Not on filedocumented in this encounter
--- OUTSIDE RECORDS SUMMARY | 2022-04-04 10:58 | XMS_ITS | Encounter Summary ---
:1955 Author Organization [facility] Address [address] [place] [address] Phone Care Team Providers Name Role Phone Pcp, No Primary Care Provider Unavailable Reason for Visit Reason Onset Date Comments Refill Request 01/28/2008 Encounter Details Date Type Department Care Team Description 01/28/2008 Refill HFA Urology Omar Savage MD Refill Request [address], [address] Research Only [place], [place] [address] Social History Tobacco Use Types Packs/Day Years Used Date Smoking Tobacco: Never Alcohol Use Standard Drinks/Week Comments Yes 3.3 (1 standard drink = 0.6 oz pure alco hol) Sex Assigned at Date Recorded Not on file documented as of this encounter Miscellaneous Notes Telephone Encounter - Danna Bautista RN - 01/28/2008 11:18 AM CDT Insurance will not cover Nitrofurantoin 100 mg every other day. TO Dr. Savage Nitrofurantoin 50 mg every other day. TORB documented in this encounter Plan of Treatment Not on filedocumented as of this encounter Visit Diagnoses Not on filedocumented in this encounter Care Teams [employer] Former [employer] Relationship Specialty Start Date End Date Pcp, No PCP - General 01/24/08 03/12/09 [facility] [place] [address] documented as of this encounter
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
--- OUTSIDE RECORDS SUMMARY | 2022-04-04 10:58 | XMS_ITS | Encounter Summary ---
:1955 Author Organization [facility] Address [address] [place] [address] Phone Care Team Providers Name Role Phone Unavailable Primary Care Provider Unavailable Encounter Details Date Type Department Care Team Description 05/15/2003 EWeb History [facility] Sameera Frances MD [address] [facility] [address] [place], [place] [address] Mail [address] [place] [address] (Wo rk) Social History Tobacco Use Types Packs/Day Years Used Date Smoking Tobacco: Never Assessed Sex Assigned at Date Recorded Not on file documented as of this encounter Plan of Treatment Not on filedocumented as of this encounter Visit Diagnoses Not on filedocumented in this encounter
--- OUTSIDE RECORDS SUMMARY | 2022-04-04 10:58 | XMS_ITS | Encounter Summary ---
:1955 Author Organization [facility] Address [address] [place], [place] [address] [place] [address] Phone Care Team Providers Name Role Phone Unavailable Primary Care Provider Unavailable Encounter Details Date Type Department Care Team Description 04/03/1997 Orders Only [facility] [place] [address] [place], [place] [address] Social History Tobacco Use Types Packs/Day Years Used Date Smoking Tobacco: Never Assessed Sex Assigned at Date Recorded Not on file documented as of this encounter Plan of Treatment Not on filedocumented as of this encounter Procedures Procedure Name Priority Date/Time Associated Diagnosis Comme nts XR CHEST 2 VIEWS PA Routine 04/03/1997 2:02 PM Re sults for this + LAT* CDT procedure are i n the results section. ULT KIDNEYS Routine 04/03/1997 1:10 PM Results f or this COMPLETE CDT procedure are i n the results section. documented in this encounter Results XR CHEST 2 VIEWS PA & LAT (04/03/1997 2:02 PM CDT) Anatomical Region Laterality Modality Chest Computed Radiography Specimen (Source) Anatomical Collection Method Collection Time Re ceived Time Location / / Volume Laterality 04/03/1997 2:02 PM CDT Impressions 04/05/1997 12:55 AM CDT : ??No acute infiltrate. ??Hyperinflation. ASI END: RELEASE RESULTS: (Y) END RESULT: IMPRESSION Narrative 04/05/1997 12:55 AM CDT Final Report EXAM: ?? CHEST 2 VIEWS PA & LAT ?- ??04/03/1997 02:02PM ?? EXAM: ??CHEST 2 VIEWS ??04/03/1997 14:02 HISTORY: ??ANNUAL EXAM, AUTONOMIA DYSREF LEXIA FINDINGS: ??The heart size and pulmonary vasculature are within normal limits. ??The lung saenz appear hyperin flated. ??There are no acute infiltrates. Procedure Note Daryl Hopper MD - 03/10/2006Fo rmatting of this note might be different from the original. Final Report EXAM: CHEST 2 VIEWS PA & LAT - 7 02:02PM EXAM: CHEST 2 VIEWS 04/03/1997 14:02 HISTORY: ANNUAL EXAM, AUTONOMIA DYSREFLE AMANDO FINDINGS: The heart size and pulmonary v asculature are within normal limits. The lung saenz appear hyperinfl ated. There are no acute infiltrates. IMPRESSION: No acute infiltrate. Hyperin flation. ASI END: RELEASE RESULTS: (Y) END RESULT: IMPRESSION Omar Savage MD X-RAY ULT KIDNEY COMPLETE (04/03/1997 1:10 PM CDT) Anatomical Region Laterality Modality Abdomen Ultrasound Specimen (Source) Anatomical Collection Method Collection Time Re ceived Time Location / / Volume Laterality 04/03/1997 1:10 PM CDT Impressions 04/04/1997 9:07 AM CDT : ??Normal renal ultrasound. I have personally reviewed the image(s) and initial interpretation, and I agree with the findings. ASI END: RELEASE RESULTS: (Y) END RESULT: IMPRESSION Narrative 04/04/1997 9:07 AM CDT Final Report EXAM: ?? RENAL US: KALISPEL KIDNEYS ?- ??04/03/1997 01:10PM ?? EXAM: ??RENAL ULTRASOUND ??04/03/1997 13 :10 HISTORY: ??NEUROGENIC B AND B, AUTONOMIC DYSREFLEXIA FINDINGS: ?? There are no comparisons. ? ?The right kidney measures 11.3 x 3.7 x 4.8 cm, and the left kidney 11.2 x 5.6 x 5.1 cm. ??There is no evidence of renal stone, hydronephrosis, or mass lesion. The bladder was empty at the time of the exam and could not be evaluated. Procedure Note Abhinav Collins - 03/10/2006 Final Report EXAM: RENAL US: KALISPEL KIDNEYS - 997 01:10PM EXAM: RENAL ULTRASOUND 04/03/1997 13:10 HISTORY: NEUROGENIC B AND B, AUTONOMIC D YSREFLEXIA FINDINGS: There are no comparisons. The right kidney measures 11.3 x 3.7 x 4.8 cm, and the left kidney 11.2 x 5.6 x 5.1 cm. There is no evidence of renal stone, hydronephrosis, or mass lesion. The bladder was empty at the time of the exam and could not be evaluated. IMPRESSION: Normal renal ultrasound. I have personally reviewed the image(s) and initial interpretation, and I agree with the findings. ASI END: RELEASE RESULTS: (Y) END RESULT: IMPRESSION Omar Savage MD ULT documented in this encounter Visit Diagnoses Not on filedocumented in this encounter
--- OUTSIDE RECORDS SUMMARY | 2022-04-04 10:58 | XMS_ITS | Encounter Summary ---
:1955 Author Organization [facility] Address [address] [place] [address] Phone Care Team Providers Name Role Phone Unavailable Primary Care Provider Unavailable Encounter Details Date Type Department Care Team Description 01/17/2006 Notes/Trans Unknown, Provider Social History Tobacco Use Types Packs/Day Years Used Date Smoking Tobacco: Never Assessed Sex Assigned at Date Recorded Not on file documented as of this encounter Plan of Treatment Not on filedocumented as of this encounter Visit Diagnoses Not on filedocumented in this encounter
--- OUTSIDE RECORDS SUMMARY | 2022-04-04 10:58 | XMS_ITS | Encounter Summary ---
:1955 Author Organization [facility] Address [address] [place] [address] Phone Care Team Providers Name Role Phone Unavailable Primary Care Provider Unavailable Encounter Details Date Type Department Care Team Description 09/02/2005 Letters(Tab) Unknown, Provider Social History Tobacco Use Types Packs/Day Years Used Date Smoking Tobacco: Never Assessed Sex Assigned at Date Recorded Not on file documented as of this encounter Progress Notes Interface, Breakfast Hostess-In - 11/15/2005 1:36 AM CDT [facility] [address] [facility], [address] [place], [place] [address] September 02, 2005 Mr. Micheal Rene [address] [place] [address] RE: MICHEAL RENE MR#: [id number] Dear Mr. Rene: From your recent Urology Clinic visit, your prostate specific antigen value remains low at 2.6. We will communicate with you once your other screening studies and x-ray studies have been completed. Best wishes. Please feel free to contact me for questions. Sincerely, Omar Savage MD Received in Breakfast Hostess: 09/02/2005 14:40:28 (M: 09/03/2005 06:57:04 dma) CS/fidelina Voice ID: [id number] Document ID: [id number] cc: This document was electronically signed by Omar Savage MD on 09/06/2005 18:13:45. documented in this encounter Plan of Treatment Not on filedocumented as of this encounter Visit Diagnoses Not on filedocumented in this encounter
--- OUTSIDE RECORDS SUMMARY | 2022-04-04 10:58 | XMS_ITS | Encounter Summary ---
:1955 Author Organization [facility] Address [address] [place] [address] Phone Care Team Providers Name Role Phone Pcp, No Primary Care Provider Unavailable Reason for Visit Reason Comments Follow-up med check-in Encounter Details Date Type Department Care Team Description 01/24/2008 Office Visit HFA Urology Omar Savage, Neurogenic Bladder [address] [facility] (Primary Dx) [address] Research Only [place], [place] [address] Social History Tobacco Use Types Packs/Day Years Used Date Smoking Tobacco: Never Alcohol Use Standard Drinks/Week Comments Yes 3.3 (1 standard drink = 0.6 oz pure alco hol) Sex Assigned at Date Recorded Not on file documented as of this encounter Progress Notes Omar Savage MD - 01/29/2008 2:47 PM CDT [facility] [address] [facility] [place] [address] (fax) MED[facility]#: [id number] PATIENT: MICHEAL RENE : 1955 DATE: 01/24/2008 UROLOGY NOTE SUBJECTIVE: The patient is a 52-year-old male with a history of paraplegia in a wheelchair, with neurogenic bladder, who is on chronic antibiotic therapy. He is seen for annual examination. He utilizes propantheline to decrease bladder spasms on a p.r.n. basis, and he is on Macrobid 100 mg twice daily chronically. He has been monitored by renal ultrasound and chest x-rays to rule out the possibility of pulmonary fibrosis. His last chest x-ray was performed in 2005. His last ultrasounds, which were normal, were in 2006 also. The patient denies urinary tract infections over the past year. He has a primary care physician in his local town. OBJECTIVE: At the present time, the patient declines examination as this is his day to evacuate his bowels and he is uncomfortable with an examination. He has had no difficulties. IMPRESSION AND PLAN: At present, we will obtain a repeat prostate-specific antigen blood test, blood urea nitrogen and serum creatinine. We have asked that he consider his Macrobid dose 100 mg every other day, and he has his propantheline 15 mg one to two tablets three times a day as needed, renewed. We do not obtain a urinalysis or culture. He is not further examined. He will be seen in one year's time. Greater than 20 minutes were spent during this examination. Omar Savage MD Received in Crew Truck Driver: 01/24/2008 17:47:53 (M: 01/29/2008 08:19:42 aml) CS/aml Voice ID: [id number] Document ID: [id number] cc: Omar Savage MD - 01/24/2008 5:48 PM CDT HPI ROS Physical Exam This office note has been dictated. documented in this encounter Plan of Treatment Not on filedocumented as of this encounter Procedures Procedure Name Priority Date/Time Associated Comments Diagnosis BUN (UREA NITROGEN) Routine 01/24/2008 4:05 PM Neurogenic Blad ramin Results for this CDT procedure are i n the results section. PSA SCREEN (PROSTATE Routine 01/24/2008 4:05 PM Neurogenic Wade dder Results for this SPEC AGN) CDT procedure are i n the results section. GLOMERULAR Routine 01/24/2008 4:05 PM Results f or this FILTRATION RATE W CDT procedure are in the results section. GLOMERULAR Routine 01/24/2008 4:05 PM Results f or this FILTRATION RATE B CDT procedure are in the results section. CREATININE, SERUM Routine 01/24/2008 4:05 PM Neurogenic Bladde r Results for this CDT procedure are i n the results section. documented in this encounter Results GLOMERULAR FILTRATION RATE W (01/24/2008 4:05 PM CDT) P athologist Signature eGFR, >60 mL/min/1.73 HFA LAB Non- m2 [place] Specimen Anatomical Collection Method Collection Time Receive d Time (Source) Location / / Volume Laterality Blood 01/24/2008 4:05 PM 8 4:29 CDT PM CDT Omar Savage MD LABORATORY Performing Organization Address City/[facility]/ZIP Code Phon e Number HFA LAB GLOMERULAR FILTRATION RATE B (01/24/2008 4:05 PM CDT) P athologist Signature eGFR, >60 mL/min/1.73 H[facility] LAB [place] m2 Comment: IDMS TRACEABLE CALIBRATION EFFECTIVE 08/16/2007 Specimen Anatomical Collection Method Collection Time Receive d Time (Source) Location / / Volume Laterality Blood 01/24/2008 4:05 PM 8 4:29 CDT PM CDT Omar Savage MD LABORATORY Performing Organization Address City/[facility]/ZIP Code Phon e Number HFA LAB (ABNORMAL) CREATININE, SERUM (01/24/2008 4:05 PM CDT) athologist Signature Creatinine 0.29 (L) 0.70 - 1.40 H[facility] LAB MG/DL Comment: IDMS TRACEABLE CALIBRATION EFFECTIVE 08/16/2007 Specimen Anatomical Collection Method Collection Time Receive d Time (Source) Location / / Volume Laterality Blood 01/24/2008 4:05 PM 8 4:29 CDT PM CDT Omar Savage MD LABORATORY Performing Organization Address City/State/ZIP Code Phon e Number HFA LAB BUN (UREA NITROGEN) (01/24/2008 4:05 PM CDT) athologist Signature BUN 12 8 - 22 MG/DL H[facility] LAB Specimen Anatomical Collection Method Collection Time Receive d Time (Source) Location / / Volume Laterality Blood 01/24/2008 4:05 PM 8 4:29 CDT PM CDT Omar Savage MD LABORATORY Performing Organization Address City/State/ZIP Code Phon e Number HFA LAB PSA SCREEN (PROSTATE SPEC AGN) (01/24/2008 4:05 PM CDT) P athologist Signature PSA Screen 2.38 0.00 - 4.00 HFA LAB NG/ML Specimen Anatomical Collection Method Collection Time Receive d Time (Source) Location / / Volume Laterality Blood 01/24/2008 4:05 PM 8 4:29 CDT PM CDT Omar Savage MD LABORATORY Performing Organization Address City/State/ZIP Code Phon e Number HFA LAB documented in this encounter Visit Diagnoses Diagnosis Neurogenic bladder - Primary Neurogenic bladder, NOS documented in this encounter Care Teams Mental Health Consultant Relationship Specialty Start Date End Date Pcp, No PCP - General 01/24/08 03/12/09 [facility] [place] [address] documented as of this encounter
--- OUTSIDE RECORDS SUMMARY | 2022-04-04 10:58 | XMS_ITS | Encounter Summary ---
:1955 Author Organization [facility] Address [address] [place], [place] [address]. [place] [address] Phone Care Team Providers Name Role Phone Unavailable Primary Care Provider Unavailable Encounter Details Date Type Department Care Team Description 10/12/2001 Orders Only [facility] Ultrasound [address] [place], [place] [address] Social History Tobacco Use Types Packs/Day Years Used Date Smoking Tobacco: Never Assessed Sex Assigned at Date Recorded Not on file documented as of this encounter Plan of Treatment Not on filedocumented as of this encounter Procedures Procedure Name Priority Date/Time Associated Diagnosis Comme nts ULT KIDNEYS Routine 10/12/2001 11:22 AM Results for this COMPLETE CONVENTIONS RESERVATIONIST procedure are i n the results section. documented in this encounter Results ULT KIDNEY COMPLETE (10/12/2001 11:22 AM CONVENTIONS RESERVATIONIST) Anatomical Region Laterality Modality Abdomen Ultrasound Specimen (Source) Anatomical Collection Method Collection Time Re ceived Time Location / / Volume Laterality 10/12/2001 11:22 AM CONVENTIONS RESERVATIONIST Impressions 10/15/2001 4:06 PM CONVENTIONS RESERVATIONIST : 1. ??NO RENAL STONES IDENTIFIED. 2. ??MILD CORTICAL THINNING BILATERALLY. ??THIS MAY INDICATE MEDICAL RENAL DISEASE. I have personally reviewed the image(s) and initial interpretation, and I agree with the findings. ASI END: RELEASE RESULTS: (Y) END RESULT: IMPRESSION Narrative 10/15/2001 4:06 PM CONVENTIONS RESERVATIONIST Final Report EXAM: ?? RENAL US: [place] [employer] KIDNEYS ?- ??10/12/2001 11:22AM SUSPECTED PATHOLOGY: SYMPTOMS AND REASONS:R/O FIBROSIS WORKING DIAGNOSIS: CLINICAL HISTORY: ??Evaluate for renal s tones. COMPARISON: ??9/11/97. FINDINGS: ??The right kidney measures 11 .2 [...] duplicated collecting system. Procedure Note Pernell Strickland J - 01/09/2006Formatti ng of this note might be different from the original. Final Report EXAM: RENAL US: [place] [employer] KIDNEYS - 002 11:22AM SUSPECTED PATHOLOGY: SYMPTOMS [...] RELEASE RESULTS: (Y) END RESULT: IMPRESSION Omar aSvage MD ULT documented in this encounter Visit Diagnoses Not on filedocumented in this encounter
--- OUTSIDE RECORDS SUMMARY | 2022-04-04 10:58 | XMS_ITS | Encounter Summary ---
:1955 Author Organization [facility] Address [address] [place] [address] Phone Care Team Providers Name Role Phone Unavailable Primary Care Provider Unavailable Reason for Visit Reason Comments Follow-up Encounter Details Date Type Department Care Team Description 07/31/2007 [place] [facility] [place] Sameera Frances Q uadriplegia (); Clinic Neurogenic Bowel; [address] [facility] Sp[facility] P5.200 Mail Code P5 [place], [place] [address] [place], [place] [phone] (Wo rk) Social History Tobacco Use Types Packs/Day Years Used Date Smoking Tobacco: Never Alcohol Use Standard Drinks/Week Comments Yes 3.3 (1 standard drink = 0.6 oz pure alco hol) Sex Assigned at Date Recorded Not on file documented as of this encounter Last Filed Vital Signs Vital Sign Reading Time Taken Comments Blood Pressure 91/64 07/31/2007 3:21 PM INVESTIGATOR INTERNAL AFFAIRS Pulse 81 07/31/2007 3:21 PM INVESTIGATOR INTERNAL AFFAIRS Temperature - - Respiratory Rate - - Oxygen Saturation - - Inhaled Oxygen Concentration - - Weight - - Height 6 cm (2.36) 07/31/2007 3:21 PM INVESTIGATOR INTERNAL AFFAIRS Body Mass Index - - documented in this encounter Progress Notes Sameera Frances MD - 08/15/2007 11:05 [place] [address] MEDREC#: [id number] PATIENT: MICHEAL RENE : 1955 DATE: 07/31/2007 PHYSICAL MEDICINE AND REHABILITATION NEUROLOGY CLINIC ADDENDUM: Again, under recommendations, I did talk to him that now he is 49 that he really should have an animal science instructor who can coordinate his prophylactic care while he ages, in particular heart disease and prostate concerns. He is not interested and would just prefer to treat things as they come up, and declined my offers to arrange him with a Primary Care physician. Sameera Frances MD Staff Physician Physical Medicine and Rehabilitation Service Received in Senior Credit Officer: 08/02/2007 15:01:18 (M: 08/06/2007 11:31:55/dd:st) CLR/dd:st Voice ID: [id number] Document ID: [id number] cc: STIGATOR INTERNAL AFFAIRS Sameera Frances MD - 08/15/2007 11:05 [place] [address] [facility]#: [id number] PATIENT: MICHEAL RENE : 1955 DATE: 07/31/2007 PHYSICAL MEDICINE AND REHABILITATION NEUROLOGY CLINIC PRIMARY CARE PHYSICIAN: None. The patient does not want one. CHIEF COMPLAINT: Spinal cord injury. HISTORY OF PRESENT ILLNESS: Micheal Rene is a 50-year-old right-handed gentleman with a history of a cervical spinal cord injury on March 16, 1989, resulting in quadriplegia, who is here today for routine follow-up. He does not have any specific concerns, but feels he should have an evaluation for any complications periodically. PAST MEDICAL HISTORY: Pertinent for hemorrhoids with occasional scant bleeding, a right femur fracture treated nonsurgically, history of coccyx decubitus ulcers are resolved, status post tendon transfers in the right upper extremity. SOCIAL HISTORY: He is . He is a father and a grandfather. 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 REVIEW OF SYSTEMS: A total of ten systems are reviewed. Pertinent positives and negatives include: He manages his neurogenic bowel with an every other day suppository without difficulty. He does have scant bright red blood he attributes to hemorrhoids a few times per month. His neurogenic bladder is stable without frequent urinary tract infections or incontinence or leaking between catheterizations. He has seen Dr. Savage recently for this. Spasms continue. They have significantly decreased as a result of his right leg fracture; however, they do not cause pain or limit his function. Skin is stable. He states occasionally he will have skin breakdown on his buttocks for which he will lay in bed until it has healed and then will return to his seated activity. He experiences this just a few times per year. He has occasional aches and pains, and he refuses to be specific. He has just received a new manual [employer] wheelchair with a J-cushion and he is happy with its fit and its comfort and its ride. There are no troubles with depression or adjustment reaction. His weight is stable. MEDICATIONS: Macrodantin and Pro-Banthine. ALLERGIES: Reviewed and on the record. EXAMINATION: He is an alert, very lean, cooperative gentleman who sits in his wheelchair with a slight C-curve. Upper extremity strength is within normal limits with the exception of grade 4 wrist flexors and less than antigravity intrinsic muscles. Sensation is normal to C7 and present to T6 and absent below. He has no volitional activity in his abdominal musculature or lower extremities. Range of motion testing is within normal limits at both shoulders, elbows and wrist supinators. He dorsiflexes to neutral and knees lack full extension of about 5 degrees. His lungs are clear. His heart is regular. His abdomen is protuberant with good bowel sounds, it is nondistended. He has no edema in his ankles. Wheelchair fit finds appropriate seat depth and seat width. He does have a sling back; I think that allows him to C-curve, which he likes because of stability. ASSESSMENT: C7 [employer] (AUDREY) A chronic spinal cord injury with a stable neurologic examination. Adequate management of neurogenic bowels and bladder; hemorrhoids that are producing minimal complications. Adequate management of his spasticity and joints. Adequate management of insensate skin, and there are no equipment concerns. PLAN: I do not have any recommendations for changes at this point. He will follow up on an as needed basis. Sameera Frances MD Staff Physician Physical Medicine and Rehabilitation Service Received in Senior Credit Officer: 08/02/2007 14:58:39 (M: 08/06/2007 11:12:53/dd:st) CLR/dd:st Voice ID: [id number] Document ID: [id number] cc: STIGATOR INTERNAL AFFAIRS Sameera Frances MD - 08/02/2007 3:01 PM CST HPI ROS Physical Exam See my dictation for today. STIGATOR INTERNAL AFFAIRS documented in this encounter Plan of Treatment Not on filedocumented as of this encounter Visit Diagnoses Diagnosis Quadriplegia () Quadriplegia, unspecified Neurogenic bowel Spastic Abnormal involuntary movements documented in this encounter
--- OUTSIDE RECORDS SUMMARY | 2022-04-04 10:58 | XMS_ITS | Encounter Summary ---
:1955 Author Organization [facility] Address [address] [place] [address] Phone Care Team Providers Name Role Phone Unavailable Primary Care Provider Unavailable Encounter Details Date Type Department Care Team Description 05/10/2005 EWeb History [facility] EMG Sameera Frances MD [address] [facility] [address] [place], [place] [address] Mail Code P5 [place] [address] (Wo rk) Social History Tobacco Use Types Packs/Day Years Used Date Smoking Tobacco: Never Assessed Sex Assigned at Date Recorded Not on file documented as of this encounter Plan of Treatment Not on filedocumented as of this encounter Visit Diagnoses Not on filedocumented in this encounter
--- OUTSIDE RECORDS SUMMARY | 2022-04-04 10:58 | XMS_ITS | Encounter Summary ---
:1955 Author Organization [facility] Address [address] [place] [address] Phone Care Team Providers Name Role Phone Pcp, No Primary Care Provider Unavailable Reason for Visit Reason Onset Date Comments Durable Medical Equipment 02/17/2009 Question about reordering equipment Check/Request Encounter Details Date Type Department Care Team Description 02/17/2009 Telephone HFA Physical Medicin e Reece Ziegler, Durable Medical [address] [facility] RN Equipment Check/Request M50 Multispecialty (Question about [place], [place] [address] Clinic reordering equipment) [phone] [place] [address] Social History Tobacco Use Types Packs/Day Years Used Date Smoking Tobacco: Never Alcohol Use Standard Drinks/Week Comments Yes 3.3 (1 standard drink = 0.6 oz pure alco hol) Sex Assigned at Date Recorded Not on file documented as of this encounter Miscellaneous Notes Telephone Encounter - Reece Ziegler RN - 02/17/2009 11:42 AM CDT Message copied by REECE ZIEGLER on MonFeb 17, 2009 11:42 AM ------ Message from: NATALIE PAINTING Created: MonFeb 17, 2009 8:45 AM Regarding: roehr/PMR TELEPHONE MESSAGE Taken by: Natalie Painting , 02/17/2009 8:45 AM Direct to: Problem: pt was rsc from 02/20 will need refill of dourdrem?? Spelling? Pharmacy # is [phone] Pt. Name: Khanh Rene : 1955 (home) Insurance: PCP: No PCP Comment: Expects Return Call at: [phone] or cell [phone] Monday02/17/09 Copy of this phone message given to Dr Frances and she will call patient to check on equipment order needed. Reece Ziegler RN documented in this encounter Plan of Treatment Not on filedocumented as of this encounter Visit Diagnoses Not on filedocumented in this encounter Care Teams Compass Operator Relationship Specialty Start Date End Date Pcp, No PCP - General 01/24/08 03/12/09 [facility] [place] [place] [address] documented as of this encounter
--- OUTSIDE RECORDS SUMMARY | 2022-04-04 10:58 | XMS_ITS | Encounter Summary ---
:1955 Author Organization [facility] Address [address] [place] [address] Phone Care Team Providers Name Role Phone Unavailable Primary Care Provider Unavailable Encounter Details Date Type Department Care Team Description 04/03/1997 Orders Only [facility] XRAY [address] [place], [place] [address] Social History Tobacco Use Types [...] END RESULT: IMPRESSION Omar Savage MD X-RAY documented in this encounter Visit Diagnoses Not on filedocumented in this encounter
--- OUTSIDE RECORDS SUMMARY | 2022-04-04 10:58 | XMS_ITS | Encounter Summary ---
:1955 Author Organization [facility] Address [address] [place] [address] Phone Care Team Providers Name Role Phone Unavailable Primary Care Provider Unavailable Encounter Details Date Type Department Care Team Description 09/02/2005 Orders Only [facility] [place] [address] [place], [place] [address] Social History Tobacco Use Types Packs/Day Years Used Date Smoking Tobacco: Never Assessed Sex Assigned at Date Recorded Not on file documented as of this encounter Plan of Treatment Not on filedocumented as of this encounter Procedures Procedure Name Priority Date/Time Associated Diagnosis Comme nts ULT KIDNEYS Routine 09/02/2005 3:16 PM Results f or this COMPLETE TEST ENGINEERING INTERN procedure are i n the results section. XR CHEST 2 VIEWS PA Routine 09/02/2005 3:03 PM Re sults for this + LAT* TEST ENGINEERING INTERN procedure are i n the results section. documented in this encounter Results ULT KIDNEY COMPLETE (09/02/2005 3:16 PM TEST ENGINEERING INTERN) Anatomical Region Laterality Modality Abdomen Ultrasound Specimen (Source) Anatomical Collection Method Collection Time Re ceived Time Location / / Volume Laterality 09/02/2005 3:16 PM TEST ENGINEERING INTERN Impressions 09/05/2005 9:17 AM TEST ENGINEERING INTERN : ??NO FOCAL MASS, STONE, OR HYDRONEPHROSIS IDENTIFIED WITHIN EITHER KIDNEY. I have personally reviewed the image(s) and initial interpretation, and I agree with the findings. . . Read Date: Sep 02 2005 ??4:12P BENEDICT AU M.D. - STAFF RADIOLOGIST FABIOLA AVALOS M.D. - RESIDENT RADIOLOGIST RELEASE RESULTS: (Y) ASI END: END RESULT: DATE DICTATED: () BALING MACHINE OPERATOR: ( ) IMPRESSION Narrative 09/05/2005 9:17 AM TEST ENGINEERING INTERN FABIOLA AVALOS M.D. - RESIDENT RADIOLOGIST Final Report EXAM: ?? RENAL US: [facility] [place] KIDNEYS ?? 04/2006 15:16 HISTORY: ??Neurogenic bladder. COMPARISON: ??10/12/01. FINDINGS: ??The right kidney measures 10 .9 x 3.9 x 4.6 cm. ??The left kidney measures 11.6 x 5.7 x 5.4 cm. ??No focal mass, stone, or hydronephrosis is identified within either kidney. ??The e chogenicity is within normal limits. The bladder is decompressed. Procedure Note Benedict Au MD - 11/15/2005Format ting of this note might be different from the original. FABIOLA AVALOS M.D. - RESIDENT RADIOLOGIST Final Report EXAM: RENAL US: [facility] [facility] [place] KIDNEYS 15:16 HISTORY: Neurogenic bladder. COMPARISON: 10/12/01. FINDINGS: The right kidney measures 10.9 x 3.9 x 4.6 cm. The left kidney measures 11.6 x 5.7 x 5.4 cm. No focal m ass, stone, or hydronephrosis is identified within either kidney. The ech ogenicity is within normal limits. The bladder is decompressed. IMPRESSION: NO FOCAL MASS, STONE, OR HYD RONEPHROSIS IDENTIFIED WITHIN EITHER KIDNEY. I have personally reviewed the image(s) and initial interpretation, and I agree with the findings. . . Read Date: Sep 02 2005 4:12P BENEDICT AU M.D. - STAFF RADIOLOGIST FABIOLA AVALOS M.D. - RESIDENT RADIOLOGIST RELEASE RESULTS: (Y) ASI END: END RESULT: DATE DICTATED: () BALING MACHINE OPERATOR: ( ) IMPRESSION Omar Savage MD ULT XR CHEST 2 VIEWS PA & LAT (09/02/2005 3:03 PM TEST ENGINEERING INTERN) Anatomical Region Laterality Modality Chest Digital Radiography Specimen (Source) Anatomical Collection Method Collection Time Re ceived Time Location / / Volume Laterality 09/02/2005 3:03 PM TEST ENGINEERING INTERN Impressions 09/02/2005 3:58 PM TEST ENGINEERING INTERN : ??NO ACUTE PULMONARY INFILTRATE. ?? . . Read Date: Sep 02 2005 ??3:34P VIANCA COHEN M.D. - STAFF RADIOLOGIST - RESIDENT RADIOLOGIST RELEASE RESULTS: (Y) ASI END: END RESULT: DATE DICTATED: () BALING MACHINE OPERATOR: ( ) IMPRESSION Narrative 09/02/2005 3:58 PM TEST ENGINEERING INTERN - RESIDENT RADIOLOGIST Final Report EXAM: ?? CHEST 2 VIEWS PA & LAT ?? 09/02 15:03 INDICATIONS: ??Neurogenic bladder. ?? FINDINGS: ??There is no change from 09/22 08/25. ??The heart size is normal. ??A small dense nodule in the right lower jerrica ng is unchanged and consistent with a granuloma. ??Otherwise the lungs are c lear with no evidence of acute pulmonary infiltrate. ?? Procedure Note Vianca Cohen MD - 11/15/2005Fo rmatting of this note might be different from the original. - RESIDENT RADIOLOGIST Final Report EXAM: CHEST 2 VIEWS PA & LAT 09/02/2005 15:03 INDICATIONS: Neurogenic bladder. FINDINGS: There is no change from . The heart size is normal. A small dense nodule in the right lower jerrica ng is unchanged and consistent with a granuloma. Otherwise the lungs are boni ar with no evidence of acute pulmonary infiltrate. IMPRESSION: NO ACUTE PULMONARY INFILTRAT E. . . Read Date: Sep 02 2005 3:34P VIANCA COHEN M.D. - STAFF RADIOLOGIST - RESIDENT RADIOLOGIST RELEASE RESULTS: (Y) ASI END: END RESULT: DATE DICTATED: () BALING MACHINE OPERATOR: ( ) IMPRESSION Omar Savage MD X-RAY documented in this encounter Visit Diagnoses Not on filedocumented in this encounter
--- OUTSIDE RECORDS SUMMARY | 2022-04-04 10:58 | XMS_ITS | Encounter Summary ---
:1955 Author Organization [facility] Address [address] [place] [address] Phone Care Team Providers Name Role Phone Pcp, No Primary Care Provider Unavailable Reason for Visit Reason Onset Date Comments Refill Request 09/02/2008 Encounter Details Date Type Department Care Team Description 09/02/2008 Refill HFA Urology Omar Savage MD Refill Request [address] [facility] Research Only [place], [place] [address] Social History Tobacco Use Types Packs/Day Years Used Date Smoking Tobacco: Never Alcohol Use Standard Drinks/Week Comments Yes 3.3 (1 standard drink = 0.6 oz pure alco hol) Sex Assigned at Date Recorded Not on file documented as of this encounter Plan of Treatment Not on filedocumented as of this encounter Visit Diagnoses Not on filedocumented in this encounter Care Teams Corporate Development Intern Relationship Specialty Start Date End Date Pcp, No PCP - General 01/24/08 03/12/09 [facility] [place] [address] documented as of this encounter
--- OUTSIDE RECORDS SUMMARY | 2022-04-04 10:58 | XMS_ITS | Encounter Summary ---
:1955 [address] [facility] Address [address] [place] [address] Phone Care Team Providers Name Role Phone Unavailable Primary Care Provider Unavailable Reason for Visit Reason Onset Date Comments Medication Refill 10/16/2007 Encounter Details Date Type Department Care Team Description 10/16/2007 Refill HFA Urology Omar Savage MD Medication Refill [address] [facility], [address] Research Only [place], [place] [address] Social History Tobacco Use Types Packs/Day Years Used Date Smoking Tobacco: Never Alcohol Use Standard Drinks/Week Comments Yes 3.3 (1 standard drink = 0.6 oz pure alco hol) Sex Assigned at Date Recorded Not on file documented as of this encounter Miscellaneous Notes Telephone Encounter - aDnna Bautista RN - 10/16/2007 11:06 AM CDT Patient will schedule yearly follow up with Dr. Savage. documented in this encounter Plan of Treatment Not on filedocumented as of this encounter Visit Diagnoses Not on filedocumented in this encounter
--- OUTSIDE RECORDS SUMMARY | 2022-04-04 10:58 | XMS_ITS | Encounter Summary ---
:1955 [address] [facility] Address [address] [place] [address] Phone Care Team Providers Name Role Phone Unavailable Primary Care Provider Unavailable Encounter Details Date Type Department Care Team Description 10/22/2007 Abstract HFA Multispecialty Abstract, Provider [address] [place], [place] [address] Social History Tobacco Use Types [...]
--- OUTSIDE RECORDS SUMMARY | 2022-04-04 10:58 | XMS_ITS | Encounter Summary ---
:1955 Author Organization [facility] Address [address] [place] [address] Phone Care Team Providers Name Role Phone Unavailable Primary Care Provider Unavailable Encounter Details Date Type Department Care Team Description 08/18/2005 Notes/Trans Unknown, Provider Social History Tobacco Use Types Packs/Day Years Used Date Smoking Tobacco: Never Assessed Sex Assigned at Date Recorded Not on file documented as of this encounter Progress Notes Interface, Product Line Manager-In - 11/15/2005 1:28 AM CDT [facility] [id number] MULTISPECIALTY CLINIC PATIENT: MICHEAL FLETCHER [address] 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 The patient continues to perform intermittent catheterization and utilizes Macrodantin on a once-a-day dose along with Pro-Banthine 15 mg three times a day. He has not experienced urinary tract infections. He has been last seen by our service in the year 2002. THE PATIENT HAS ALLERGIES TO IODINE, KEFLEX, SHELLFISH, AND AUGMENTIN. His primary care launch check out is Dr. Sameera Frances whom he sees on at least an annual basis. At the present time, the patient's medications are only those mentioned above, and he does not have episodes of urinary incontinence between catheterizations. The patient is in a wheelchair. He is otherwise healthy and appears normal with signs of his quadriplegia. We were able to transfer him to the examining table, at which time his abdomen is supple without organomegaly or masses. His penis and scrotum were normal. His prostate gland is small, approximately 2 cm. The patient will be scheduled for an interval outpatient ultrasound, chest x-ray, and bladder ultrasound. His medications are renewed, and he will be seen in one year's time. Omar Savage MD Received in Product Line Manager: 08/22/2005 18:11:27 (M: 08/24/2005 17:01:36 cb) CS/cb Voice ID: [id number] Document ID: [id number] cc: This document was electronically signed by Omar Savage MD on 08/26/2005 10:47:02. ? documented in this encounter Plan of Treatment Not on filedocumented as of this encounter Visit Diagnoses Not on filedocumented in this encounter
--- OUTSIDE RECORDS SUMMARY | 2022-04-04 10:58 | XMS_ITS | Encounter Summary ---
:1955 Author Organization [facility] Address [address] [facility] [place] [address] Phone Care Team Providers Name Role Phone Unavailable Primary Care Provider Unavailable Encounter Details Date Type Department Care Team Description 03/04/2003 EWeb History [facility] [place] [place] Clinic Bubba Tavarez MD [address] Mail Code P5 [place], [place] [address] [place] [address] [phone] (Wo rk) Social History Tobacco Use Types Packs/Day Years Used Date Smoking Tobacco: Never Assessed Sex Assigned at Date Recorded Not on file documented as of this encounter Plan of Treatment Not on filedocumented as of this encounter Visit Diagnoses Not on filedocumented in this encounter
--- OUTSIDE RECORDS SUMMARY | 2022-04-04 10:58 | XMS_ITS | Encounter Summary ---
:1955 Author Organization [facility] Address [address] [place] [address] Phone Care Team Providers Name Role Phone Pcp, No Primary Care Provider Unavailable Encounter Details Date Type Department Care Team Description 01/29/2008 Letters(Tab) [facility] Urology Clinic Omar Savage MD [facility] [address] [place] [address] [address] [place], [place] [address] Social History Tobacco Use Types Packs/Day Years Used Date Smoking Tobacco: Never Alcohol Use Standard Drinks/Week Comments Yes 3.3 (1 standard drink = 0.6 oz pure alco hol) Sex Assigned at Date Recorded Not on file documented as of this encounter Progress Notes Omar Savage MD - 01/30/2008 7:23 AM CDT [facility] [address] [place] [address] 01/29/2008 TO: Micheal Rene [address] [place] [address] RE: MICHEAL RENE MR#: [id number] Dear Mr. Rene: From your recent Urology Clinic visit, your laboratory values remain stable. Your serum creatinine remains low because of your low body mass. It is 0.29. Your prostate-specific antigen blood test is 2.38, with normal up to 4. We await your return visit in one year. Best wishes. Sincerely, Omar Savage MD Received in Radio Station Audio Engineer: 01/29/2008 16:28:05 (M: 01/30/2008 02:45:25 jlb) CS/golden Voice ID: [id number] Document ID: [id number] cc: Micheal Rene documented in this encounter Plan of Treatment Not on filedocumented as of this encounter Visit Diagnoses Not on filedocumented in this encounter Care Teams Wire Bender Hand Relationship Specialty Start Date End Date Pcp, No PCP - General 01/24/08 03/12/09 [facility] [place] [address] documented as of this encounter
--- OUTSIDE RECORDS SUMMARY | 2022-04-04 10:58 | XMS_ITS | Encounter Summary ---
:1955 Author Organization [facility][Note 3] Address [address] [place], [place] [address] [place] [address] Phone Care Team Providers Name Role Phone Unavailable Primary Care Provider Unavailable Encounter Details Date Type Department Care Team Description 12/09/1998 Orders Only [facility] MRI G[address] [place], [place] [address] Social History Tobacco Use Types Packs/Day Years Used Date Smoking Tobacco: Never Assessed Sex Assigned at Date Recorded Not on file documented as of this encounter Plan of Treatment Not on filedocumented as of this encounter Procedures Procedure Name Priority Date/Time Associated Diagnosis Comme nts MR SPINE CERVICAL Routine 12/09/1998 9:51 AM Resu lts for this W/O + W/CON CDT procedure are i n the results section. documented in this encounter Results MR SPINE CERVICAL W/O & W/CONT (12/09/1998 9:51 AM CDT) Anatomical Region Laterality Modality Cervical Spine Magnetic Resonance Specimen (Source) Anatomical Collection Method Collection Time Re ceived Time Location / / Volume Laterality 12/09/1998 9:51 AM CDT Impressions 12/22/1998 11:02 AM CDT : 1. 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 2. ??Broad-based bulge at the C6-C7 leve l. I have personally reviewed the image(s) and initial interpretation, and I agree with the findings. ASI END: RELEASE RESULTS: (Y) END RESULT: IMPRESSION Narrative 12/22/1998 11:02 AM CDT Final Report EXAM: ?? SPINE CERVICAL W/O & W/CONT MR ?- ??12/09/1998 09:51AM ?? SUSPECTED PATHOLOGY: ??F.U SYRINX SYMPTOMS AND REASONS: WORKING DIAGNOSIS: TECHNICAL FACTORS: ??Sagittal T1, post-g adolinium T1, T2 and axial post- gadolinium T1, T1 weighted images. FINDINGS: ??No comparisons are available . ??At the level of C7 there is an intramedullary lesion which has low sign al intensity on T1 weighted images and is bright on T2 weighted images. ??T here is no evidence for enhancement. This finding is most consistent with a p ost-traumatic syrinx. At specific levels: C5-C6: ??Central, lateral and foraminal broad-based herniation. C6-C7: ??Osteophytes on the left. ??Also broad-based bulge on the left. ?? No evidence for central canal or neural for aminal narrowing. C7-T1: ??Broad-based bulge. ??No evidenc e for central canal or neural foraminal narrowing. Procedure Note Yassine Lozano N - 02/21/2006Formatti ng of this note might be different from the original. Final Report EXAM: SPINE CERVICAL W/O & W/CONT MR - 0 12/09/1998 09:51AM SUSPECTED PATHOLOGY: F.U SYRINX SYMPTOMS AND REASONS: WORKING DIAGNOSIS: TECHNICAL FACTORS: Sagittal T1, post-garcia olinium T1, T2 and axial post- gadolinium T1, T1 weighted images. FINDINGS: No comparisons are available. At the level of C7 there is an intramedullary lesion which has low sign al intensity on T1 weighted images and is bright on T2 weighted images. The re is no evidence for enhancement. This finding is most consistent with a p ost-traumatic syrinx. At specific levels: C5-C6: Central, lateral and foraminal br oad-based herniation. C6-C7: Osteophytes on the left. Also bro ad-based bulge on the left. No evidence for central canal or neural for aminal narrowing. C7-T1: Broad-based bulge. No evidence fo r central canal or neural foraminal narrowing. IMPRESSION: 1. 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 2. Broad-based bulge at the C6-C7 level. I have personally reviewed the image(s) and initial interpretation, and I agree with the findings. ASI END: RELEASE RESULTS: (Y) END RESULT: IMPRESSION Mert Patricia MD MR NEURO documented in this encounter Visit Diagnoses Not on filedocumented in this encounter
--- OUTSIDE RECORDS SUMMARY | 2022-04-04 10:58 | XMS_ITS | Encounter Summary ---
:1955 Author Organization [facility] Address [address] [place] [address] Phone Care Team Providers Name Role Phone Unavailable Primary Care Provider Unavailable Encounter Details Date Type Department Care Team Description 09/19/2001 Orders Only Unknown, Provider Social History Tobacco Use Types Packs/Day Years Used Date Smoking Tobacco: Never Assessed Sex Assigned at Date Recorded Not on file documented as of this encounter Plan of Treatment Not on filedocumented as of this encounter Procedures Procedure Name Priority Date/Time Associated Diagnosis Comme nts BUN (UREA NITROGEN) Routine 09/19/2001 5:05 PM Re sults for this ARCHIVIST procedure are i n the results section. PSA Routine 09/19/2001 5:05 PM Results f or this DIAGNOSTIC(PROSTATE ARCHIVIST procedur e are in SPE AG the results section. CREATININE, SERUM Routine 09/19/2001 5:05 PM Resu lts for this ARCHIVIST procedure are i n the results section. documented in this encounter Results PSA DIAGNOSTIC(PROSTATE SPE AG (09/19/2001 5:05 PM ARCHIVIST) athologist Signature PSA Diagnostic 0.5 0.00 - 4.00 HFA LAB NG/ML Specimen Anatomical Collection Method Collection Time Receive d Time (Source) Location / / Volume Laterality Blood 09/19/2001 5:05 PM 2 5:26 ARCHIVIST PM ARCHIVIST Omar Savage MD LABORATORY Performing Organization Address City/State/ZIP Code Phon e Number HFA LAB BUN (UREA NITROGEN) (09/19/2001 5:05 PM ARCHIVIST) athologist Signature BUN 13 5 - 25 MG/DL HFA LAB Specimen Anatomical Collection Method Collection Time Receive d Time (Source) Location / / Volume Laterality Blood 09/19/2001 5:05 PM 2 5:26 ARCHIVIST PM ARCHIVIST Omar Savage MD LABORATORY Performing Organization Address City/State/ZIP Code Phon e Number HFA LAB CREATININE, SERUM (09/19/2001 5:05 PM ARCHIVIST) P athologist Signature Creatinine 0.5 0.5 - 1.4 HFA LAB MG/DL Specimen Anatomical Collection Method Collection Time Receive d Time (Source) Location / / Volume Laterality Blood 09/19/2001 5:05 PM 2 5:26 ARCHIVIST PM ARCHIVIST Omar Savage MD LABORATORY Performing Organization Address City/State/ZIP Code Phon e Number HFA LAB documented in this encounter Visit Diagnoses Not on filedocumented in this encounter
--- OUTSIDE RECORDS SUMMARY | 2022-04-04 10:58 | XMS_ITS | Encounter Summary ---
:1955 Author Organization [facility] Address [address] [place] [address] Phone Care Team Providers Name Role Phone Unavailable Primary Care Provider Unavailable Encounter Details Date Type Department Care Team Description 07/03/1995 Orders Only [facility] XRAY [address] [place], [place] [address] Social History Tobacco Use Types Packs/Day Years Used Date Smoking Tobacco: Never Assessed Sex Assigned at Date Recorded Not on file documented as of this encounter Plan of Treatment Not on filedocumented as of this encounter Procedures Procedure Name Priority Date/Time Associated Diagnosis Comme nts XR SACRUM AP & LAT Routine 07/03/1995 2:10 PM Res ults for this COMPUTER SYSTEMS ANALYST procedure are i n the results section. XR COCCYX AP & LAT Routine 07/03/1995 2:10 PM Res ults for this COMPUTER SYSTEMS ANALYST procedure are i n the results section. documented in this encounter Results XR COCCYX AP & LAT (07/03/1995 2:10 PM COMPUTER SYSTEMS ANALYST) Anatomical Region Laterality Modality Lumbar Spine Computed Radiography Specimen (Source) Anatomical Collection Method Collection Time Re ceived Time Location / / Volume Laterality 07/03/1995 2:10 PM COMPUTER SYSTEMS ANALYST Impressions 07/05/1995 12:33 PM COMPUTER SYSTEMS ANALYST : ??Please see Sacrum report dated 07/03/95 1410. ASI END: RELEASE RESULTS: (Y) END RESULT: IMPRESSION Narrative 07/05/1995 12:33 PM COMPUTER SYSTEMS ANALYST Final Report EXAM: ?? COCCYX AP & LAT ? - ??07/03/1995 02:10PM ?? EXAM: ??COCCYX ??07/03/95 ??1410 HISTORY: FINDINGS: Procedure Note Carlos Boland MD - 03/23/2006Formatt ing of this note might be different from the original. Final Report EXAM: COCCYX AP & LAT - 07/03/1995 02:10 PM EXAM: COCCYX 07/03/95 1410 HISTORY: FINDINGS: IMPRESSION: Please see Sacrum report lana ed 07/03/95 1410. ASI END: RELEASE RESULTS: (Y) END RESULT: IMPRESSION Bubba Tavarez MD X-RAY XR SACRUM AP & LAT (07/03/1995 2:10 PM COMPUTER SYSTEMS ANALYST) Anatomical Region Laterality Modality Lumbar Spine Computed Radiography Specimen (Source) Anatomical Collection Method Collection Time Re ceived Time Location / / Volume Laterality 07/03/1995 2:10 PM COMPUTER SYSTEMS ANALYST Impressions 07/05/1995 12:33 PM COMPUTER SYSTEMS ANALYST : ??Evidence of bone loss or destruction within the coccyx through to the S5 sacral segment. ??Associated s oft tissue changes with air in the soft tissues noted in this region. ??Alt ric these findings may simply represent postsurgical change, active in fection cannot be excluded. ??If clinically indicated, therefore, MRI exa mination may be useful in further evaluating this region. ASI END: RELEASE RESULTS: (Y) END RESULT: IMPRESSION Narrative 07/05/1995 12:33 PM COMPUTER SYSTEMS ANALYST Final Report EXAM: ?? SACRUM AP & LAT ? - ??07/03/1995 02:10PM ?? EXAM: ??SACRUM AND COCCYX ??07/03/95 ??1 410 HISTORY: ??CHRONIC ULCER X 1 YEAR, OSTEI TIS QUESTIONED 40-YEAR-OLD GENTLEMAN. COMPARISON: ??No previous films although AP pelvis from 03/17/89 is available. FINDINGS: ??AP views demonstrate general ized osteopenia throughout the visualized bony skeleton. ??The sacroili ac joints are unremarkable. ??The upper sacrum and lower lumbar vertebrae are unremarkable in appearance. On the lateral film, however, there is e videnced of bone loss with lack of visualization of the entire coccyx. ??A rather abrupt vertical margin is seen through ??the S5 segment suggesting that this is due to previous bone resection ??surgery in this region. ??Ho wever, active infection with bone destruction ??cannot be excluded on this radiograph. ??In addition, there is evidence of ??soft tissue swelling in th is region with associated air in the soft tissues ??also noted, suggesting an ongoing inflammatory process at this time. ??Further ??evaluation of this reg ion may be performed if clinically indicated using MRI ??examination. Procedure Note Carlos Boland MD - 03/23/2006Formatt ing of this note might be different from the original. Final Report EXAM: SACRUM AP & LAT - 07/03/1995 02:10 PM EXAM: SACRUM AND COCCYX 07/03/95 1410 HISTORY: CHRONIC ULCER X 1 YEAR, OSTEITI S QUESTIONED 40-YEAR-OLD GENTLEMAN. COMPARISON: No previous films although A P pelvis from 03/17/89 is available. FINDINGS: AP views demonstrate generaliz ed osteopenia throughout the visualized bony skeleton. The sacroiliac joints are unremarkable. The upper sacrum and lower lumbar vertebrae are unremarkable in appearance. On the lateral film, however, there is e videnced of bone loss with lack of visualization of the entire coccyx. A ra ther abrupt vertical margin is seen through the S5 segment suggesting that t his is due to previous bone resection surgery in this region. Howeve r, active infection with bone destruction cannot be excluded on this r adiograph. In addition, there is evidence of soft tissue swelling in this region with associated air in the soft tissues also noted, suggesting an o ngoing inflammatory process at this time. Further evaluation of this region may be performed if clinically indicated using MRI examination. IMPRESSION: Evidence of bone loss or yojana truction within the coccyx through to the S5 sacral segment. Associated sof t tissue changes with air in the soft tissues noted in this region. Altho ugh these findings may simply represent postsurgical change, active in fection cannot be excluded. If clinically indicated, therefore, MRI exa mination may be useful in further evaluating this region. ASI END: RELEASE RESULTS: (Y) END RESULT: IMPRESSION Bubba Tavarez MD X-RAY documented in this encounter Visit Diagnoses Not on filedocumented in this encounter
--- OUTSIDE RECORDS SUMMARY | 2022-04-04 10:58 | XMS_ITS | Encounter Summary ---
:1955 Author Organization [facility] Address [address] [place] [address] Phone Care Team Providers Name Role Phone Unavailable Primary Care Provider Unavailable Encounter Details Date Type Department Care Team Description 07/03/1995 Orders Only [facility] [place] [address] [place], [place] [address] Social History Tobacco Use Types Packs/Day Years Used Date Smoking Tobacco: Never Assessed Sex Assigned at Date Recorded Not on file documented as of this encounter Plan of Treatment Not on filedocumented as of this encounter Procedures Procedure Name Priority Date/Time Associated Diagnosis Comme nts XR COCCYX AP & LAT Routine 07/03/1995 2:10 PM Res ults for this DIVISION SERVICE MANAGER procedure are i n the results section. documented in this encounter Results XR COCCYX AP & LAT (07/03/1995 2:10 PM DIVISION SERVICE MANAGER) Anatomical Region Laterality Modality Lumbar Spine Computed Radiography Specimen (Source) Anatomical Collection Method Collection Time Re ceived Time Location / / Volume Laterality 07/03/1995 2:10 PM DIVISION SERVICE MANAGER Impressions 07/05/1995 12:33 PM DIVISION SERVICE MANAGER : ??Please see Sacrum report dated 07/03/95 1410. ASI END: RELEASE RESULTS: (Y) END RESULT: IMPRESSION Narrative 07/05/1995 12:33 PM DIVISION SERVICE MANAGER Final Report EXAM: ?? COCCYX AP & LAT ? - ??07/03/1995 02:10PM ?? EXAM: ??COCCYX ??07/03/95 ??1410 HISTORY: FINDINGS: Procedure Note Carlos Boland MD - 03/23/2006Formatt ing of this note might be different from the original. Final Report EXAM: COCCYX AP & LAT - 07/03/1995 02:10 PM EXAM: COCCYX 07/03/95 1410 HISTORY: FINDINGS: IMPRESSION: Please see Sacrum report lana ed 07/03/95 141. ASI END: RELEASE RESULTS: (Y) END RESULT: IMPRESSION Bubba Tavarez MD X-RAY documented in this encounter Visit Diagnoses Not on filedocumented in this encounter
--- OUTSIDE RECORDS SUMMARY | 2022-04-04 10:58 | XMS_ITS | Encounter Summary ---
:1955 Author Organization [facility] Address [address] [place] [address] Phone Care Team Providers Name Role Phone Unavailable Primary Care Provider Unavailable Encounter Details Date Type Department Care Team Description 09/29/2006 Letters(Tab) [facility] U[facility] Omar Savage MD [facility] [address] [facility] [address] [place], [place] [address] Social History Tobacco Use Types Packs/Day Years Used Date Smoking Tobacco: Never Assessed Sex Assigned at Date Recorded Not on file documented as of this encounter Progress Notes Omar Savage MD - 09/29/2006 4:34 PM CST [facility] [address] [place] [address] 09/29/2006 TO: Micheal Rene [address] [place], [place] [address] RE: MICHEAL RENE MR#: [id number] Dear Mr. Rene: From your recent Urology Clinic visit your prostate specific antigen value remains in a normal level and is 2.87. Best wishes and please feel free to contact us for questions. Sincerely, Omar Savage MD Received in Envelope Sealer: 09/29/2006 12:33:54 (M: 09/29/2006 13:29:47 kms) CS/kms Voice ID: [id number] Document ID: [id number] cc: Micheal Rene [id number] [facility] [id number] OP documented in this encounter Plan of Treatment Not on filedocumented as of this encounter Visit Diagnoses Not on filedocumented in this encounter
--- OUTSIDE RECORDS SUMMARY | 2022-04-04 10:58 | XMS_ITS | Encounter Summary ---
:1955 Author Organization [facility] Address [address] [place] [address] Phone Care Team Providers Name Role Phone Pcp, No Primary Care Provider Unavailable Reason for Visit Reason Onset Date Comments Question 02/20/2009 Called with question Encounter Details Date Type Department Care Team Description 02/20/2009 Telephone HFA Physical Medicin e Reece Ziegler, Question (Called with [facility] [address], [address] RN question) [facility] [facility] [place] [address] [facility] [phone] [place] [address] Social History Tobacco Use Types Packs/Day Years Used Date Smoking Tobacco: Never Alcohol Use Standard Drinks/Week Comments Yes 3.3 (1 standard drink = 0.6 oz pure alco hol) Sex Assigned at Date Recorded Not on file documented as of this encounter Miscellaneous Notes Telephone Encounter - Reece Ziegler, RN - 02/20/2009 9:41 AM CDT Message copied by REECE ZIEGLER on MonFeb 20, 2009 9:41 AM ------ Message from: NATALIE PAINTING Created: MonFeb 19, 2009 3:38 PM Regarding: [facility] PMR TELEPHONE MESSAGE Taken by: Natalie Painting , 02/19/2009 3:38 PM Direct to: Problem: questions Pt. Name: Khanh Rene : 1955 (home) Insurance: PCP: No PCP Comment: Expects Return Call at: [phone] Monday02/20/09 at 930am, returned Khanh's phone call, had to leave phone message, Reece Ziegler RN 02/26/09 again returned Khanh's phone call woth no answer. Khanh is scheduled to see Dr Frances on Monday03/13/09 at [facility]. I has also given Dr Frances phone message from Khanh on his question on medical supply.Reece Ziegler RN documented in this encounter Plan of Treatment Not on filedocumented as of this encounter Visit Diagnoses Not on filedocumented in this encounter Care Teams Stone Rubber Relationship Specialty Start Date End Date Pcp, No PCP - General 01/24/08 03/12/09 [facility] [place] [place] [address] documented as of this encounter
--- OUTSIDE RECORDS SUMMARY | 2022-04-04 10:58 | XMS_ITS | Encounter Summary ---
:1955 Author Organization [facility] Address [address] [place] [address] Phone Care Team Providers Name Role Phone Unavailable Primary Care Provider Unavailable Encounter Details Date Type Department Care Team Description 08/18/2005 Orders Only Unknown, Provider Social History Tobacco Use Types Packs/Day Years Used Date Smoking Tobacco: Never Assessed Sex Assigned at Date Recorded Not on file documented as of this encounter Plan of Treatment Not on filedocumented as of this encounter Procedures Procedure Name Priority Date/Time Associated Diagnosis Comme nts BUN (UREA NITROGEN) Routine 08/18/2005 12:00 AM R esults for this BID ANALYST procedure are i n the results section. PSA-SCREENING(MT) Routine 08/18/2005 12:00 AM Res ults for this BID ANALYST procedure are i n the results section. CREATININE, SERUM Routine 08/18/2005 12:00 AM Res ults for this BID ANALYST procedure are i n the results section. documented in this encounter Results PSA-SCREENING(MT) (08/18/2005 12:00 AM BID ANALYST) athologist Signature PSA Screen 2.6 0.00 - 4.00 HFA LAB NG/ML Specimen (Source) Anatomical Collection Method Collection Time Re ceived Time Location / / Volume Laterality Blood 08/18/2005 08/18/2005 5:07 PM BID ANALYST Omar Savage MD LABORATORY Performing Organization Address City/State/ZIP Code Phon e Number HFA LAB BUN (UREA NITROGEN) (08/18/2005 12:00 AM BID ANALYST) athologist Signature BUN 9 5 - 25 MG/DL HFA LAB Specimen (Source) Anatomical Collection Method Collection Time Re ceived Time Location / / Volume Laterality Blood 08/18/2005 08/18/2005 5:07 PM BID ANALYST Omar Savage MD LABORATORY Performing Organization Address City/State/ZIP Code Phon e Number HFA LAB CREATININE, SERUM (08/18/2005 12:00 AM BID ANALYST) P athologist Signature Creatinine <0.5 0.5 - 1.4 HFA LAB MG/DL Comment: REPEATED Specimen (Source) Anatomical Collection Method Collection Time Re ceived Time Location / / Volume Laterality Blood 08/18/2005 08/18/2005 5:07 PM BID ANALYST Omar Savage MD LABORATORY Performing Organization Address City/State/ZIP Code Phon e Number HFA LAB documented in this encounter Visit Diagnoses Not on filedocumented in this encounter
--- OUTSIDE RECORDS SUMMARY | 2022-04-04 10:58 | XMS_ITS | Encounter Summary ---
:1955 Author Organization [facility] Address [address] [place], [place] [address] [place] [address] Phone Care Team Providers Name Role Phone Unavailable Primary Care Provider Unavailable Encounter Details Date Type Department Care Team Description 09/02/2005 Orders Only [facility] Ultrasound [address] [place], [place] [address] Social History Tobacco Use Types Packs/Day Years Used Date Smoking Tobacco: Never Assessed Sex Assigned at Date Recorded Not on file documented as of this encounter Plan of Treatment Not on filedocumented as of this encounter Procedures Procedure Name Priority Date/Time Associated Diagnosis Comme nts ULT KIDNEYS Routine 09/02/2005 3:16 PM Results f or this COMPLETE TAILORING TEACHER procedure are i n the results section. documented in this encounter Results ULT KIDNEY COMPLETE (09/02/2005 3:16 PM TAILORING TEACHER) Anatomical Region Laterality Modality Abdomen Ultrasound Specimen (Source) Anatomical Collection Method Collection Time Re ceived Time Location / / Volume Laterality 09/02/2005 3:16 PM TAILORING TEACHER Impressions 09/05/2005 9:17 AM TAILORING TEACHER : ??NO FOCAL MASS, STONE, OR HYDRONEPHROSIS IDENTIFIED WITHIN EITHER KIDNEY. I have personally reviewed the image(s) and initial interpretation, and I agree with the findings. . . Read Date: Sep 02 2005 ??4:12P BENEDICT AU M.D. - STAFF RADIOLOGIST FABIOLA AVALOS M.D. - RESIDENT RADIOLOGIST RELEASE RESULTS: (Y) ASI END: END RESULT: DATE DICTATED: () FLEXOGRAPHIC PRESS PLATE SETTER: ( ) IMPRESSION Narrative 09/05/2005 9:17 AM TAILORING TEACHER FABIOLA AVALOS M.D. - RESIDENT RADIOLOGIST Final Report EXAM: ?? RENAL US: OMAHA KIDNEYS ?? 04/2006 15:16 HISTORY: ??Neurogenic bladder. [...] RESIDENT RADIOLOGIST Final Report EXAM: RENAL US: OMAHA KIDNEYS 15:16 HISTORY: Neurogenic bladder. COMPARISON: 10/12/01. [...] ASI END: END RESULT: DATE DICTATED: () FLEXOGRAPHIC PRESS PLATE SETTER: ( ) IMPRESSION Omar Savage MD ULT documented in this encounter Visit Diagnoses Not on filedocumented in this encounter
--- OUTSIDE RECORDS SUMMARY | 2022-04-04 10:59 | XMS_ITS | Encounter Summary ---
:1955 Author Organization [facility] Address [address] [place] [address] Phone Care Team Providers Name Role Phone Unavailable Primary Care Provider Unavailable Encounter Details Date Type Department Care Team Description 12/07/1993 Orders Only Unknown, Provider Social History Tobacco Use Types Packs/Day Years Used Date Smoking Tobacco: Never Assessed Sex Assigned at Date Recorded Not on file documented as of this encounter Plan of Treatment Not on filedocumented as of this encounter Procedures Procedure Name Priority Date/Time Associated Diagnosis Comme nts EKG RESULT PL 10/24/2007 10:38 AM Results for this CDT procedure are i n the results section . documented in this encounter Results EKG RESULT PL (10/24/2007 10:38 AM CDT) Narrative 10/24/2007 10:38 AM CDT This result has an attachment that is no t available. Ordered by an unspecified provider. Provider Unknown EKG documented in this encounter Visit Diagnoses Not on filedocumented in this encounter
--- OUTSIDE RECORDS SUMMARY | 2022-04-04 10:59 | XMS_ITS ---
:1955 Author Care Team Providers Name Role Phone CHETNA MERAZ MD Primary Care Provider [phone] ANN MCLAININA International Trade Manager [phone] Allergies Code Code System Name Reaction Severity Status Onset Cephalosporins ? ? Active ? Medications Name Status Start Date Stop Date ? ? amoxicillin 875 mg tablet Completed ? 2020 TAKE 1 TABLET BY MOUTH TWICE DAILY FOR 10 DAYS ampicillin 500 mg capsule Completed ? 2020 TK 1 C PO TID TAT aspirin 81 mg tablet,delayed release Completed ? 09/27/2021 TAKE 1 TABLET BY MOUTH ONCE DAILY WITH A MEAL ciprofloxacin 500 mg tablet Completed ? 01/22 TK 1 T PO BID clopidogrel 75 mg tablet Completed ? 022 TAKE 1 TABLET BY MOUTH ONCE DAILY doxycycline hyclate 100 mg capsule Completed ? 02/18/2021 TAKE 1 CAPSULE BY MOUTH TWICE DAILY FOR 10 DAYS doxycycline monohydrate 100 mg capsule Completed ? 02/18/2021 TK 1 C PO BID FOR 10 DAYS levofloxacin 500 mg tablet Completed ? 09/27 TAKE 1 TABLET BY MOUTH ONCE A DAY FOR 10 DAYS ugdirokk-eoaolmkot-czmkusaot 3.5 mg-10,000 unit/mL-1 % ear d rops,susp Completed ? 02/18/2021 INSTILL 4 DROPS IN AFFECTED EAR(S) FOUR TIMES DAILY nitrofurantoin macrocrystal 50 mg capsule Active ? Not available TAKE 1 CAPSULE BY MOUTH EVERY DAY oxybutynin chloride ER 10 mg tablet,extended release 24 hr Compl eted ? 02/18/2021 TAKE 1 TABLET BY MOUTH ONCE DAILY oxybutynin chloride ER 15 mg tablet,extended release 24 hr Activ e ? Not available TAKE 1 TABLET BY MOUTH TWICE DAILY propantheline 15 mg tablet Completed ? 02/18 TAKE 2 TABLETS BY MOUTH THREE TIMES DAILY sulfamethoxazole 800 mg-trimethoprim 160 mg tablet Completed ? 09/27/2021 TAKE 1 TABLET BY MOUTH EVERY 12 HOURS FOR 10 DAYS Problems None recorded. Procedures Date Name Performed by ? 09/27/2021 US, [facility] Radiology Department [address] [place] [address] (Work Place) Results Lab Results Date Name Specimen Result Interpretation Description Value Range Status Address ? 05/06/2021 Culture, BLDV ABNORMAL Final Report microbiology ? Final [place] Urine results Urology [facility] Lab: [address] [facility] [address], [place] 05/06/2021 Urinalysis ? No ? ? ? , Dipstick observation recorded. 02/18/2021 Culture, UR ABNORMAL Final Report microbiology ? Final [place] Urine results [facility] Lab: [address], [place] ? Urinalysis ? Color-Status Yellow ? ? , Dipstick ? ? ? Clarity-Stat Cloudy ? ? us ? ? ? pH-Status 7.5 ? Nitrates-Sta positive ? ? tus ? ? ? Blood-Status Small ? Leuko-Status Large ? ? ? Urinalysis ? Color-Status Straw ? ? , Dipstick ? ? ? Clarity-Stat Cloudy ? ? us ? ? ? Glucose-Stat Negative ? ? us ? ? ? Bilirubin-St Negative ? ? atus ? ? ? Ketones-Stat Negative ? ? us ? ? ? Sp 1.015 ? ? [place]-Statu s ? ? ? Nitrates-Sta positive ? ? tus ? ? ? Blood-Status Trace ? Leuko-Status Large ? ? Past Encounters 09/27/2021 Neurogenic Bladder; Spinal Cord Injury; Spasm of Bladder; Recurrent Urinary Tract Infection Jono Pagan MD: [address] [place] [address], Ph. 05/06/2021 Abnormal Urine Jono Pagan MD: [address] [place] [address], Ph. 02/18/2021 Neurogenic Bladder; Spinal Cord Injury; Spasm of Bladder; Recurrent Urinary Tract Infection; Acute Urinary Tract Infection Jono Pagan MD: [address] [place] [address], Ph. Social History Tobacco Smoking Status Former Smoker Vaccine List None recorded. Plan of Care Reminders Provider Appointments None recorded. ? ? Lab None recorded. ? ? Referral None recorded. ? ? Procedures None recorded. ? ? Surgeries None recorded. ? ? Imaging None recorded. ? ? Vitals 09/27/2021 11:30AM ESTABLISHED 10 Height Weight BMI 6 ft 143 lbs 19.4 kg/m2 05/06/2021 11:00AM LAB 30 Height Weight BMI 6 ft 143 lbs 19.4 kg/m2 02/18/2021 01:30PM ESTABLISHED 20 Height Weight BMI 6 ft 143 lbs 19.4 kg/m2
--- OUTSIDE RECORDS SUMMARY | 2022-04-04 10:59 | XMS_ITS | Encounter Summary ---
:1955 Author Organization [facility] Address [address] [place] [address] Phone Care Team Providers Name Role Phone [...]
== END 2022-04-04 10:39 | disposition home or self-care (01) ==
LOC: WOUND 10:38
PROVIDERS: PCP Family Medicine; Visit Provider Nurse Practitioner Family
DX: L89.614 Pressure ulcer of right heel, stage 4 (principal); L97.422 Non-pressure chronic ulcer of left heel and midfoot with fat layer exposed; S80.811A Abrasion, right lower leg, initial encounter
CPT/HCPCS: 11042; 11045

== ENCOUNTER 2022-04-11 08:57 | Outpatient (CLI) | payer OTHER, SELFPAY ==
--- OUTSIDE RECORDS SUMMARY | 2022-04-11 08:59 | XMS_ITS | Encounter Summary ---
:1955 Author Organization [facility] Address [address] [place] [address] Phone Care Team Providers Name Role Phone Lila Clay PT Unavailable Reason for Visit Reason Comments Referral Consult/Test/Treat (Routine) - Closed Specialty Diagnoses / Procedures Referred By Contact Refer red To Contact Physical Medicine and Diagnoses Paraplegia, unspecified paraplegia from previous in [place] 33 yrs James Nava Csc [facility] Rehab / PHYSICAL MD [place] [address] [place] [address] MEDICINE AND REHAB [address] [place] [phone] Fax: Referral ID Status Reason Start Date Expiration Date Visits V isits Requested Authorized [id number] Closed Created in 07/20/2021 07/20/2022 1 1 PAS Encounter Details Date Type Department Care Team Description 09/02/2021 Office Visit Clinic & Specialty Center Dariel Israel uadriplegia, C5-C7 incomplete () (Primary Dx); Physical Medicine & A, PA-C Muscle spasticity Rehabilitation Clini c [address] [place] [address] [phone] Social History Tobacco Use [...] Comments Blood Pressure 135/74 09/02/2021 8:12 AM MECHANICAL PRODUCT ENGINEER Pulse 72 09/02/2021 8:12 AM MECHANICAL PRODUCT ENGINEER Temperature - - Respiratory Rate - - Oxygen Saturation - - Inhaled Oxygen Concentration - - Weight - - Height - - Body Mass Index - - documented in this encounter Progress Notes Dariel Israel PA-C - 09/02/2021 8:00 AM CST [facility] Physical Medicine & Rehabilitation Clinic Khanh [...] is followed by a wound clinic in [place]. He just had a wheelchair evaluation in physical therapy here at [place]. He stated that around 2 to 3 [...] 5/5 EE 5/5 5/5 WE 4/5 4/5 Manager Surgery 3/5 3/5 Strength bilateral lower extremities 0/5 [...] service, including pre-visit review of separatelyobtained history, hrka-dr-vees interaction performing medically appropriate physical exam, patient counseling/education, interpretation of diagnostic results, care coordination and documentation was 46 minutes. Dictation Disclaimer: Notes are completed with voice-recognition dictation software. Errors are generally corrected in real time. Please contact me via [employer] staff message if you note any errors requiring clarification. ANICAL PRODUCT ENGINEER documented in this encounter Plan of Treatment Scheduled Orders Name Type Priority Associated Diagnoses Order S chedule EMG - BOTOX EMG Routine Muscle spasticity Ordered: 0 09/02/2021 documented as of this encounter Procedures Procedure Name Priority Date/Time Associated Comments Diagnosis CARE EVERYWHERE 09/07/2021 11:04 Results for this AUTHORIZATION AM MECHANICAL PRODUCT ENGINEER procedure are in the results section. CARE EVERYWHERE 09/07/2021 11:04 Results for this AUTHORIZATION AM MECHANICAL PRODUCT ENGINEER procedure are in the results section. documented in this encounter Results CARE EVERYWHERE AUTHORIZATION (09/07/2021 11:04 AM MECHANICAL PRODUCT ENGINEER) Narrative This result has an attachment that is no t available. Him Provider SCANNED CONSENTS CARE EVERYWHERE AUTHORIZATION (09/07/2021 11:04 AM MECHANICAL PRODUCT ENGINEER) Narrative This result has an attachment that is no t available. Him Provider SCANNED CONSENTS documented in this encounter Visit Diagnoses Diagnosis Quadriplegia, C5-C7 incomplete () - Pr imary Quadriplegia, C5-C7, incomplete Muscle spasticity Spasm of muscle documented in this encounter Care Teams Consumer Education Specialist Relationship Specialty Start Date End Date Lila Clay, PT Physical Therapist Physical Therapy 04/05/[address] [place] [address] documented as of this encounter
--- OUTSIDE RECORDS SUMMARY | 2022-04-11 08:59 | XMS_ITS | Encounter Summary ---
:1955 Author Organization [facility] Address [address] [place] [address] Phone Care Team Providers Name Role Phone Lila Clay PT Unavailable Reason for Visit Prior Authorization (Routine) - Auth Not Needed Specialty Diagnoses / Procedures Referred By Contact Refer red To Contact Physical Medicine and Diagnoses Quadriplegia, unspecified Quadriplegia, C5-C7 incomplete Muscle spasticity [M62.838] (Reminder letter sent 09/29/21 cl) Zev Alvarez MD Rehab / NEUROLOGY EMG Procedures EMG - BOTOX [address] [address] [place] [address] Phone: Fax: Referral ID Status Reason Start Date Expiration Date Visits V isits Requested Authorized [id number] Auth Not 1 2 Needed Encounter Details Date Type Department Care Team Description 10/21/2021 Hospital Encounter Clinic & Specialty Zev Alvarez , Non Billable Center EMG [address] [place] [address]40 4 [place], [place] [phone] (Wo rk) Social History Tobacco Use Types [...] Name: Khanh Rene : 1955 Medical Record: [id number] History of Present Illness: 66 year old [...] to his right leg on 07/08/2019 at [facility] (Administered as 100 BF, 50 SM, 50 [...] and discussed with Dr. Kim Ash, PGY-5, [facility] Brain Injury Fellow Pager# [phone] Associated attestation - Zev Alvarez MD - [...] on filedocumented in this encounter Care Teams Seamless Hosiery Knitter Relationship Specialty Start Date End Date Lila Clay, PT Physical Therapist Physical Therapy 04/05/21 [address] [place] [address] documented as of this encounter
--- OUTSIDE RECORDS SUMMARY | 2022-04-11 08:59 | XMS_ITS | Encounter Summary ---
:1955 Author Organization [facility] Address [address] [place] [address] Phone Care Team Providers Name Role Phone Unavailable Primary Care Provider Unavailable Reason for Visit Reason Comments Other Encounter Details Date Type Department Care Team Description 03/27/2020 Refill Clinic & Specialty Center Monty Garcia MD Other Urology Clinic [id number] [place] [address] [phone] Social History Tobacco Use Types Packs/Day Years [...]
--- OUTSIDE RECORDS SUMMARY | 2022-04-11 08:59 | XMS_ITS | Encounter Summary ---
:1955 Author Organization [facility] Address [address] [place] [address] Phone Care Team Providers Name Role Phone Lila Clay PT Unavailable Reason for Visit Prior Authorization (Routine) - Closed Specialty Diagnoses / Procedures Referred By Contact Refer red To Contact Physical Therapy / Diagnoses Quadriplegia () At high risk for skin breakdown Impaired mobility Provider, Outside Lila Clay, PHYSICAL MEDICINE AND Procedures PT TREATMENT PLAN OUTSIDE PROVIDER PT RE[facility] [address] [place] [address] Phone: Fax: Referral ID Status Reason Start Date Expiration Date Visits Requ ested Visits Authorized [id number] Closed 05/05/2021 01/20/2022 12 12 Encounter Details Date Type Department Care Team Description 09/01/2021 Hospital Encounter Clinic & Specialty Lila Clay, No [facility] Housing Installer apy PT [address] [place] [address] 4 [place], [place] [phone] Social History Tobacco Use Types Packs/Day Years [...] items have been addressed. Lila Clay PT [facility] License: #[id number] Pager: [phone] Office: [phone] IGN CAR MECHANIC documented in this encounter Plan of Treatment Not on filedocumented as of this encounter Visit Diagnoses Not on filedocumented in this encounter Care Teams Mop Man Relationship Specialty Start Date End Date Lila Clay, PT Physical Therapist Physical Therapy 04/05/21 [address] [place] [address] documented as of this encounter
--- OUTSIDE RECORDS SUMMARY | 2022-04-11 08:59 | XMS_ITS | Encounter Summary ---
:1955 Author Organization [facility] Address [address] [place] [address] Phone Care Team Providers Name Role Phone Provider, Outside Primary Care Provider Unavailable Encounter Details Date Type Department Care Team Description 10/07/2016 Hospital Encounter [facility] Monty Garcia MD [address] [place] [address] .[address] [place], [place] [phone] (Wo rk) Social History Tobacco Use Types [...] NOS documented in this encounter Care Teams Director Business Relationship Specialty Start Date End Date Provider, Outside PCP - General 03/13/09 10/22/18 [place] [address] documented as of this encounter
--- OUTSIDE RECORDS SUMMARY | 2022-04-11 08:59 | XMS_ITS | Encounter Summary ---
:1955 Author Organization [facility] Address [address] [place] [address] Phone Care Team Providers Name Role Phone Unavailable Primary Care Provider Unavailable Reason for Visit Reason Onset Date Comments Refill Request 04/03/2020 Encounter Details Date Type Department Care Team Description 04/03/2020 Refill Clinic [facility] Specialty Center Monty Garcia MD Refill Request Urology Clinic [address] [place] [address] [place] [address] [phone] Social History Tobacco Use Types Packs/Day Years [...]
--- OUTSIDE RECORDS SUMMARY | 2022-04-11 08:59 | XMS_ITS | Encounter Summary ---
:1955 Author Organization [facility] Address [address] [facility] [place] [address] Phone Care Team Providers Name Role Phone Lila Clay PT Unavailable Reason for Visit Reason Onset Date Comments Prior Authorization For Medications 09/03/2021 Boto x (onabotulinumtoxinA) Encounter Details Date Type Department Care Team Description 09/03/2021 Pharmacy Prior [facility] Pharmacy Sakshi Mcmanus, Authorization [address] [facility] PharmD P1.630 [address] [place], [place] [address] [place], [place] [phone] Social History Tobacco Use Types Packs/Day Years [...] the patient has active primary coverage through [facility] MEDICARE ADVANTAGE ([facility]). [facility] does NOT require prior authorization for BOTOX when it is given in the clinic/infusion center and billed on the medical claim (buy and bill). IMPORTANT - READ BELOW However, [facility] reimburses BOTOX only for select designated ICD-10/Diagnosis Codes. Based on review of the patient's chart, please (continue to) use the following COVERED diagnosis code for the visits in which the patient will receive BOTOX: - G82.50 or G82.54 Quadriplegia Update 01/27/2022 - Unable to get response from [facility]. Per 10/21/2021 note appears patient was going [...] on filedocumented in this encounter Care Teams Medical Officer Psychiatry Relationship Specialty Start Date End Date Lila Clay, PT Physical Therapist Physical Therapy 04/05/21 [address] [place] [address] documented as of this encounter
--- OUTSIDE RECORDS SUMMARY | 2022-04-11 08:59 | XMS_ITS | Encounter Summary ---
:1955 Author Organization [facility] Address [address] [place] [address] Phone Care Team Providers Name Role Phone [...] with No / Unsure 08/20/2020 3:15 PM TAX COLLECTOR someone who was confirmed or suspected to have Coronavirus / COVID-19? documented as of this encounter Plan of Treatment Not on filedocumented as of this encounter Visit Diagnoses Not on filedocumented in this encounter
--- OUTSIDE RECORDS SUMMARY | 2022-04-11 08:59 | XMS_ITS | Clinical Summary ---
:1955 Author Organization [facility] Address [place] [address] Care Team Providers Name Role Phone Ana Mayers Unavailable Alex Mata MD Primary Care Provider [phone] Allergies Active Allergy Reactions Severity Noted Date Comments Blood-Group Specific Other - Describe In 04/19/2021 Patient has Levi saucedo Substance Comment Field (Fya) antibody . Blood products may be delayed. Dra renee patient 24 hour s prior to transfusion. Fo r Network Hardware Resale testing, draw o ne red top and [...] 12/26/2008, 09/01/2006 Medical Devices Implanted Type Area Pneumatic Deicer Inspector Device Shelf Model / Identifier Expiration Serial / Date Lot Standard Pacemaker-12/21/2012 Standard Medtronic [id number] / Implanted: 12/21/2012 by Judson Jenkins MD (Quantity not on file) Pacemaker [id number] / Results Not on filefrom Last 3 [...] 12 months since positive culture): resides in acute/[facility] care, receiving hemodialysis, has chronic open wounds/skin damage, has long-te rm percutaneous indwelling medical devic es Exclusions for nares collection (if <12 months since positive culture) include all of the previous exclusions plus patients on antibiotics 7 days prior to collection Insurance Payer Benefit Plan / Subscriber ID Effective Dates Phone Addre ss Type Group WC WORKERS COMP [facility] [id number] 1989-Prese C/O [place] [employer] [address] [place] [address] WC WORKERS COMP [facility] [id number] 1989-Prese C/O [employer] [address] [place] [address] MEDICARE PART A - MEDICARE PART [id number] 1991-Presen ATTN: CLAIMS HB USE ONLY A HB ONLY t [address] [facility] [place] [address] [facility] MR [id number] 2020-Presen [address] [address] [place] [address] Khahn Rene Workers Comp Self 1955 [id number] [employer] [address] [place] [address] Khanh Rene Workers Comp Self 1955 [id number] [employer] [address]Home) [place] [address] Khanh Rene Personal/Family Self 1955 1 [address] [employer] (Home) [place] [address] Advance Directives Latest Code Status on File Code Status Date Activated Date Inactivated Comments Full Code 03/05/2020 6:59 AM 03/09/2020 8:07 PM Code Status Discussion: Not Discussed Full Code 04/25/2016 3:57 PM 05/10/2016 8:47 PM Full Code 2016 6:44 AM 03/14/2016 5:37 PM Full Code 12/16/2015 12:49 PM 12/25/2015 1:24 PM Full Code 12/15/2015 3:46 PM 12/16/2015 12:49 PM Care Teams Wood Borer Relationship Specialty Start Date End Date Alex Mata MD PCP - General Family Practice 02/04/201999 [place] [address] Ana Mayers Nurse Practitioner 03/02/[address] [place] [address]
--- OUTSIDE RECORDS SUMMARY | 2022-04-11 08:59 | XMS_ITS | Encounter Summary ---
:1955 Author Organization [facility] Address [address] [place] [address] Phone Care Team Providers Name Role Phone Hallie Clay PT Unavailable Reason for Referral Prior Authorization (Routine) - Closed Specialty Diagnoses / Procedures Referred By Contact Refer red To Contact Physical Therapy / Diagnoses Quadriplegia () At high risk for skin breakdown Impaired mobility Provider, Outside Hallie Clay, PHYSICAL MEDICINE AND Procedures PT TREATMENT PLAN OUTSIDE PROVIDER PT REHAB [place], [place] [phone] [place] [address] Phone: Fax: Referral ID Status Reason Start Date Expiration Date Visits Requ ested Visits Authorized [id number] Closed 05/05/2021 01/20/2022 12 12 METRIST PRESIDENT/PRACTICE OWNER Reason for Visit Prior Authorization (Routine) - Closed Specialty Diagnoses / Procedures Referred By Contact Refer red To Contact Physical Therapy / Diagnoses Quadriplegia () At high risk for skin breakdown Impaired mobility Provider, Outside Hallie Clay, PHYSICAL MEDICINE AND Procedures PT TREATMENT PLAN OUTSIDE PROVIDER PT [facility] [place], [place] [id number] [place] [address] Phone: Fax: Referral ID Status Reason Start Date Expiration Date Visits Requ ested Visits Authorized [id number] Closed 05/05/2021 01/20/2022 12 12 Encounter Details Date Type Department Care Team Description 07/14/2021 Hospital Encounter Clinic & Specialty Provider, [place] [address] Center Manager Country apHallie Hopkins, PT [address] [address] Social History Tobacco Use Types [...] Signature: Date: 07/14/2021 Date: Please return to: [facility] Physical Therapy [address] [address] RECERTIFICATION SUMMARY New Recertification period: 07/14/21 to [...] Recent Hospitalization:??None?? Referring Provider:?? MD Yamile Alves, ASSISTANT DIRECTOR OF PUBLIC WORKS ?? Current Precautions/Contraindications:?At high risk for skin breakdown, s/p flap surgery, currentpressure injuries on feet [facility] Pharmacy Technician Program Director:?no ?? Patient gave two identifiers for Check 2 for Safety Total Treatment Time: 55 Min ?? Pain: No significant complaints during session ?? S: Pt presents to his PT session in his [facility], independently. Also present: Matthew Ricketts/[employer]. 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 ?? O: [Billable Units/Time] ?? (18022) Wheelchair Management: 55 min Pressure mapping completed [...] up with B UE's for having pressure youth officer placed over, completed with CGA) +Sitting on [...] Recommend removing foam sole, and placing nonskid surface/onyx chip terrazzo worker bottom instead (lowest height possible) 4) Inside [...] - thank you. Hallie Clay, PT ATP [phone] [email or web address] Printed above information for patient to bring with to his sales assistants and salespersons as well as to his Ortho MD [...] stabilizer? Hallie Clay, PT ATP [place] License: #[id number] Pager: [phone] Office: [phone] ? Recertification Assessment of need for continued skilled physical therapy interventions: Patient continues to make steady progress toward short term and custodial goals which have been updated to reflect [...] Specific Question: Schedule with: Answer: HALLIE CLAY [[id number]] Order Specific Question: Number of Visits patient [...] Specific Question: Schedule with: Answer: HALLIE CLAY [[id number]] Order Specific Question: Number of Visits patient should be scheduled for? Answer: 1 Order Specific Question: Modalities and Procedures Answer: Procedures Order Specific Question: Procedure Answer: Functional Activities Order Specific Question: Procedure Answer: Neuromuscular Re-education Order Specific Question: Procedure Answer: Self Care/Home Management/ADL Order Specific Question: Procedure Answer: Wheelchair Management and Training Hallie Clay PT ATP Date [place] License: #[id number] Pager: [phone] Office: [phone] METRIST PRESIDENT/PRACTICE OWNER documented in this encounter Plan of Treatment Not on filedocumented as of this encounter Visit Diagnoses Diagnosis Quadriplegia () Quadriplegia, unspecified At high risk for skin breakdown Other specified conditions influencing h ealth status Impaired mobility Other ill-defined conditions documented in this encounter Care Teams Study Director Relationship Specialty Start Date End Date Hallie Clay PT Physical Therapist Physical Therapy 04/05/[address] [place] [address] documented as of this encounter
--- OUTSIDE RECORDS SUMMARY | 2022-04-11 08:59 | XMS_ITS | Encounter Summary ---
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 documented as of this encounter Plan of Treatment Not on filedocumented as of this encounter Visit Diagnoses Diagnosis COVID-19 Need for vaccination Need for prophylactic vaccination and in oculation against unspecified single disease documented in this encounter
--- OUTSIDE RECORDS SUMMARY | 2022-04-11 08:59 | XMS_ITS | Encounter Summary ---
:1955 Author Organization [facility] [place] [place] Address [address] [place] [address] Phone Care Team Providers Name Role Phone Lila Clay PT Unavailable Reason for Visit Prior Authorization (Routine) - Closed Specialty Diagnoses / Procedures Referred By Contact Refer red To Contact Physical Therapy / Diagnoses Quadriplegia () At high risk for skin breakdown Impaired mobility Provider, Outside Lila Clay, PHYSICAL MEDICINE AND Procedures PT TREATMENT PLAN OUTSIDE PROVIDER PT REHAB [address] [address] Phone: Fax: Referral ID Status Reason Start Date Expiration Date Visits Requ ested Visits Authorized [id number] Closed 05/05/2021 01/20/2022 12 12 Encounter Details Date Type Department Care Team Description 06/09/2021 Hospital Encounter Clinic & Specialty Provider, Outside OUTSIDE PROVIDER [address] System Controller apy Lila Clay, PT [id number] [place] [address] Social History Tobacco Use Types Packs/Day [...] Hospitalization: None Referring Provider: MD Yamile Alves, TILE DITCHER ?? Current Precautions/Contraindications: At high risk for skin breakdown, s/p flap surgery, current pressure injuries on feet [facility] Social Work Administrator: no Patient gave two identifiers for Check 2 for Safety Total Treatment Time: 70 Min Pain: No significant complaints during session S: Pt presents to his PT session in his MWC, independently. Also present: Matthew Ricketts/[employer]. Last 30 min of the session, patient's [facility] (Raquel Gamino, RN, PHN, MA P: [phone], F: [phone]) No significant changes; still attends wound clinic for B foot injuries weekly - missed yesterday so will be seen later this week. Pt agreed that he would like to try to adjust 1-2 items at a time; assess tolerance, and then move forward with additional changes as appropriate. Noticed that additional 'dump' is 'different' but tolerable. O: [Billable Units/Time] (03672) Wheelchair Management: 70 min Pt remained in [...] require a new back frame to the [facility], but would provide additional depth to the [...] to be able to transfer in/out of [facility] independently. At end of session, all agreed [...] date include: Increased posterior seat dump on [facility] this date and pt tolerated well - [...] be obtained before then? Lila Clay PT [facility] License: #[id number] Pager: [phone] Office: [phone] ITY ASSURANCE INTERN documented in this encounter Plan of Treatment Not on filedocumented as of this encounter Visit Diagnoses Not on filedocumented in this encounter Care Teams Sole Cementer Relationship Specialty Start Date End Date Lila Clay, PT Physical Therapist Physical Therapy 04/05/[address] [place] [address] documented as of this encounter
--- OUTSIDE RECORDS SUMMARY | 2022-04-11 08:59 | XMS_ITS | Encounter Summary ---
:1955 Author Organization [facility] Address [address] [place] [address] Phone Care Team Providers Name Role Phone Provider, Outside Primary Care Provider Unavailable Encounter Details Date Type Department Care Team Description 01/02/2018 Nurse Triage Clinic & Specialty Center Farida Dueñas, unit control worker Clinic [address] [address] [place], [place] [address] Social History Tobacco Use Types [...] on filedocumented in this encounter Care Teams Hydraulic Bull Riveter Operator Relationship Specialty Start Date End Date Provider, Outside PCP - General 03/13/09 10/22/18 [place] [address] documented as of this encounter
--- OUTSIDE RECORDS SUMMARY | 2022-04-11 08:59 | XMS_ITS | Encounter Summary ---
:1955 Author Organization [facility] Address 701 [place] [address] Phone Care Team Providers Name Role Phone Provider, Outside Primary Care Provider Unavailable Reason for Visit Reason Onset Date Comments Refill Request 12/27/2017 propantheline Medication Refill 01/08/2018 propantheline Encounter Details Date Type Department Care Team Description 12/27/2017 Refill Clinic & Specialty Monty Garcia MD Refill Request Center Urology Clini c 701 [facility] P5 (propantheline); [address] Medication Refill [place], [place] [phone] (propantheline) [phone] (Wo rk) Social History Tobacco Use Types [...] generic message for pt to call the [facility] and ask for a RN. [...] chart- no MITCHELL on file. Wale Russell underwriter mortgage loan does have message to pass along, but no MITCHELL in the chart and cannot share info due to HIPPA. Charlene Russell said she understood. She requested we call [facility] and let him know the response. Manufacturer Representative called [facility] and no answer. Left message [...] Center 02/01/2018 2:00 PM Monty Garcia MD [facility] Special documented in this encounter Plan of Treatment Not on filedocumented as of this encounter Visit Diagnoses Not on filedocumented in this encounter Care Teams Admitting Counselor Relationship Specialty Start Date End Date Provider, Outside PCP - General 03/13/09 10/22/18 [place] [address] documented as of this encounter
--- OUTSIDE RECORDS SUMMARY | 2022-04-11 08:59 | XMS_ITS | Encounter Summary ---
:1955 Author Organization [facility] Address [address] [place] [address] Phone Care Team Providers Name Role Phone Lila Clay PT Unavailable Reason for Visit Prior Authorization (Routine) - Closed Specialty Diagnoses / Procedures Referred By Contact Refer red To Contact Physical Therapy / Diagnoses Quadriplegia () At high risk for skin breakdown Impaired mobility Provider, Outside Lila Clay, PHYSICAL MEDICINE AND Procedures PT TREATMENT PLAN OUTSIDE PROVIDER PT REHAB [address] [address] Phone: Fax: Referral ID Status Reason Start Date Expiration Date Visits Requ ested Visits Authorized [id number] Closed 05/05/2021 01/20/2022 12 12 Encounter Details Date Type Department Care Team Description 06/02/2021 Hospital Encounter Clinic & Specialty Provider, Outside OUTSIDE PROVIDER [address] Piping Manager apy Lila Clay, PT [phone] [place] [address] Social History Tobacco Use Types Packs/Day [...] Hospitalization: None Referring Provider: MD Yamile Alves, FLOTATION TANK OPERATOR ?? Current Precautions/Contraindications: At high risk for skin breakdown, s/p flap surgery, current pressure injuries on feet [facility] Excellence Leader: no Patient gave two identifiers for Check [...] additional changes as appropriate. O: [Billable Units/Time] (87651) Wheelchair Management: 60 min Transfer MWC/mat table [...] passive IR/ER WNL. Adjustments made to patient's [facility] this date: +Increased posterior seat dump by 1 +lowered footplates B by approximately 1 Pt returned to sitting in [facility] at end of session, able to self [...] Clay, PT [employer] [place] License: #[id number] Pager: [phone] Office: [phone] UCT MARKETING COORDINATOR documented in this encounter Plan of Treatment Not on filedocumented as of this encounter Visit Diagnoses Not on filedocumented in this encounter Care Teams Client Server Developer Relationship Specialty Start Date End Date Lila Clay, PT Physical Therapist Physical Therapy 04/05/[address] [place] [address] documented as of this encounter
--- OUTSIDE RECORDS SUMMARY | 2022-04-11 08:59 | XMS_ITS | Encounter Summary ---
:1955 Author Organization [facility] Address 1 [place] [address] Phone Care Team Providers Name Role Phone Provider, Outside Primary Care Provider Unavailable Reason for Visit Reason Onset Date Comments Refill Request 12/23/2016 Encounter Details Date Type Department Care Team Description 12/23/2016 Refill [facility] Divya Caraballo RN Refill Request [address] 701 [place], [place] [address] 4 [place] [address] Social History Tobacco Use Types Packs/Day Years [...] on filedocumented in this encounter Care Teams Accounting Office Manager Relationship Specialty Start Date End Date Provider, Outside PCP - General 03/13/09 10/22/18 [place] [address] documented as of this encounter
--- OUTSIDE RECORDS SUMMARY | 2022-04-11 08:59 | XMS_ITS | Encounter Summary ---
:1955 [address] [facility] Address [address] [place] [address] Phone Care Team Providers Name Role Phone Lila Clay PT Unavailable Reason for Visit Prior Authorization (Routine) - Closed Specialty Diagnoses / Procedures Referred By Contact Refer red To Contact Physical Therapy / Diagnoses Quadriplegia () At high risk for skin breakdown Impaired mobility Provider, Outside Lila Clay, PHYSICAL MEDICINE AND Procedures PT TREATMENT PLAN OUTSIDE PROVIDER PT REHAB [address] [address] Phone: Fax: Referral ID Status Reason Start Date Expiration Date Visits Requ ested Visits Authorized [id number] Closed 05/05/2021 01/20/2022 12 12 Encounter Details Date Type Department Care Team Description 08/11/2021 Hospital Encounter Clinic & Specialty Provider, Outside [place] [address] No Show Center Head Worker apy Lila Clay, PT [address] [place] [address] Social History Tobacco Use Types Packs/Day [...] request, with this therapist. Lila Clay PT [facility] License: #[id number] Pager: [phone] Office: [phone] documented in this encounter Plan of Treatment Not on filedocumented as of this encounter Visit Diagnoses Not on filedocumented in this encounter Care Teams Balloon Maker Relationship Specialty Start Date End Date Lila Clay, PT Physical Therapist Physical Therapy 04/05/21 [address] [place] [address] documented as of this encounter
--- OUTSIDE RECORDS SUMMARY | 2022-04-11 08:59 | XMS_ITS | Encounter Summary ---
:1955 Author Organization [facility] Address [address] [place] [address] Phone Care Team Providers Name Role Phone Unavailable Primary Care Provider Unavailable Encounter Details Date Type Department Care Team Description 09/14/2020 Immunization [facility] Viral Clinic Jonathan Chu MD [address] [phone] Need for vaccination [address] Nurse, [facility] Vaccine 701 [place] [address] (Primary Dx) [place], [place] [address] Social History Tobacco Use Types [...] with No / Unsure 08/20/2020 3:15 PM EDITOR & CO FOUNDER someone who was confirmed or suspected to have Coronavirus / COVID-19? documented as of this encounter Plan of Treatment Not on filedocumented as of this encounter Visit Diagnoses Diagnosis Need for vaccination - Primary Need for prophylactic vaccination and in oculation against unspecified single disease documented in this encounter
--- OUTSIDE RECORDS SUMMARY | 2022-04-11 08:59 | XMS_ITS | Clinical Summary ---
:1955 Author Organization [facility] Address [address] [place] [address] Phone Care Team Providers Name Role Phone Lila Clay PT Unavailable Source Comments [employer] is fully rolled out on [employer]. Last update 12/26/08.[facility] Allergies Active Allergy Reactions Severity Noted Date [...] Comments Blood Pressure 135/74 09/02/2021 8:12 AM STRIPPER APPRENTICE Pulse 72 09/02/2021 8:12 AM STRIPPER APPRENTICE Temperature 36.2 ??C (97.1 ??F) 09/15/2016 8:09 AM STRIPPER APPRENTICE Respiratory Rate 14 04/20/2010 1:39 PM CDT [...] Effective Phone Address Typ e / Group [facility] [id number] 1989-Pre [phone] [address] Work Comp [employer] sent [address] [employer] [place] [address] [facility] COMPLETE [id number] 2020-Pres [address] [facility] (MEDICARE ent [id number] Managed Care ADVANTAGE) [place] [address] [id number] Workers Comp Employer 1955 % Cb ert (Home) [place] [address] MICHELLE SANTOS [id number] Care Teams Molding And Trim Installer Relationship Specialty Start Date End Date Lila Clay, PT Physical Therapist Physical Therapy 04/05/21 [address] [place] [address]
--- OUTSIDE RECORDS SUMMARY | 2022-04-11 08:59 | XMS_ITS | Encounter Summary ---
:1955 Author Organization [facility] Address 1 [place] [address] Phone Care Team Providers Name Role Phone Provider, Outside Primary Care Provider Unavailable Reason for Visit Reason Onset Date Comments Refill Request 01/12/2018 Encounter Details Date Type Department Care Team Description 01/12/2018 Refill Clinic & Specialty Center Monty Garcia MD Refill Request Urology Clinic 701 [place] [address] [address] [place], [place] [address] [phone] Social History Tobacco Use Types Packs/Day Years [...] on filedocumented in this encounter Care Teams Route Service Representative Relationship Specialty Start Date End Date Provider, Outside PCP - General 03/13/09 10/22/18 [place] [address] documented as of this encounter
--- OUTSIDE RECORDS SUMMARY | 2022-04-11 08:59 | XMS_ITS | Encounter Summary ---
:1955 Author Organization [facility] Address 1 [place] [address] Phone Care Team Providers Name Role Phone Unavailable Primary Care Provider Unavailable Reason for Visit Reason Onset Date Comments Refill Request 03/22/2019 propanthelin Encounter Details Date Type Department Care Team Description 03/22/2019 Refill Clinic & Specialty Monty Garcia MD Refill Request Center Urology Clini c 701 [facility] P5 (propanthelin) [address] [phone] (Wo rk) Social History Tobacco Use Types [...]
--- OUTSIDE RECORDS SUMMARY | 2022-04-11 08:59 | XMS_ITS | Encounter Summary ---
:1955 Author Organization [facility] Address [address] [place] [address] Phone Care Team Providers Name Role Phone [...] on filedocumented in this encounter Care Teams Area Sales Manager Relationship Specialty Start Date End Date Lila Clay, PT Physical Therapist Physical Therapy 04/05/21 [address] [place] [address] documented as of this encounter
--- OUTSIDE RECORDS SUMMARY | 2022-04-11 08:59 | XMS_ITS | Encounter Summary ---
:1955 Author Organization [facility] Address 701 [place] [address] Phone Care Team Providers Name Role Phone Provider, Outside Primary Care Provider Unavailable Reason for Visit Reason Onset Date Comments Refill Request 10/06/2016 re: Macrodantin Encounter Details Date Type Department Care Team Description 10/06/2016 Telephone [facility] Urology Clinic Divya Avendano Refi ll Request (re: Yordy ASH Macrodantin) [address] 701 [place], [place] [address] [place], [place] [phone] Social History Tobacco Use Types Packs/Day Years [...] on filedocumented in this encounter Care Teams Academic Affairs Manager Relationship Specialty Start Date End Date Provider, Outside PCP - General 03/13/09 10/22/18 [place] [address] documented as of this encounter
--- OUTSIDE RECORDS SUMMARY | 2022-04-11 08:59 | XMS_ITS | Encounter Summary ---
:1955 Author Organization [facility] Address [address] [place] [address] Phone Care Team Providers Name Role Phone Provider, Outside Primary Care Provider Unavailable Reason for Visit Reason Onset Date Comments Medication Problem 01/10/2018 propantheline Encounter Details Date Type Department Care Team Description 01/10/2018 Nurse Triage Clinic & Specialty Monty Garcia, [facility] Center Urology Clini [facility] (propantheline) [address] [place] [address] [place] [address] 4 [place], [place] [phone] Social History Tobacco Use Types Packs/Day Years [...] to me for years A-upon review of Countercepts is was found that Dr Garcia has [...] or severe? n/a Protocols used: MEDICATION QUESTION [id number] documented in this encounter Plan of Treatment Not on filedocumented as of this encounter Visit Diagnoses Not on filedocumented in this encounter Care Teams Weed Sprayer Relationship Specialty Start Date End Date Provider, Outside PCP - General 03/13/09 10/22/18 [place] [address] documented as of this encounter
--- OUTSIDE RECORDS SUMMARY | 2022-04-11 08:59 | XMS_ITS | Encounter Summary ---
:1955 Author Organization [facility] Address 1 [place] [address] Phone Care Team Providers Name Role Phone Provider, Outside Primary Care Provider Unavailable Reason for Visit Reason Onset Date Comments Other 2018 Encounter Details Date Type Department Care Team Description 2018 Telephone Clinic & Specialty Monty Garcia MD Appointment Center Urology Clini c 701 [facility] P5 Cancellation [address] [phone] (Wo rk) Social History Tobacco Use Types [...] on filedocumented in this encounter Care Teams Inspector And Tester Relationship Specialty Start Date End Date Provider, Outside PCP - General 8/21/09 4/1/19 [place] [address] documented as of this encounter
--- OUTSIDE RECORDS SUMMARY | 2022-04-11 08:59 | XMS_ITS | Encounter Summary ---
:1955 Author Organization [facility] Address 701 [place] [address] Phone Care Team Providers Name Role Phone Provider, Outside Primary Care Provider Unavailable Reason for Visit Reason Onset Date Comments Medication Refill 11/11/2016 propantheline (PRO-B ANTHINE) Encounter Details Date Type Department Care Team Description 11/11/2016 Refill [facility] Selena Garcia MD Medication Refill [place] 701 [facility] P5 (propantheline [address] [place], [place] (PRO-BANTHINE) ) [place], [place] [phone] (Wo rk) Social History Tobacco Use Types [...] mg oral tablet Pharmacy Name and Location: [facility] [address] [place] [phone] - [phone] - [address] [place] [address] Phone number for return call: .[phone] Did caller contact the pharmacy? yes: pharmacy [...] on filedocumented in this encounter Care Teams Extras Casting Director Relationship Specialty Start Date End Date Provider, Outside PCP - General 03/13/09 10/22/18 [place] [address] documented as of this encounter
--- OUTSIDE RECORDS SUMMARY | 2022-04-11 08:59 | XMS_ITS | Encounter Summary ---
:1955 Author Organization [facility] Address [address] [place] [address] Phone Care Team Providers Name Role Phone Unavailable Primary Care Provider Unavailable Encounter Details Date Type Department Care Team Description 08/18/2020 Orders Only [facility] Viral Cl Jonathan Sierra MD COVID-19 [address] [facility] [address] 701 [facility] G5 [place], [place] [address] [place], [place] [phone] (Wo rk) Social History Tobacco Use Types [...] with No / Unsure 08/20/2020 3:15 PM SHIPPING CLERK CRATING someone who was confirmed or suspected to have Coronavirus / COVID-19? documented as of this encounter Plan of Treatment Not on filedocumented as of this encounter Visit Diagnoses Diagnosis COVID-19 documented in this encounter
--- OUTSIDE RECORDS SUMMARY | 2022-04-11 08:59 | XMS_ITS | Encounter Summary ---
:1955 Author Organization [facility] Address 1 [place] [address] Phone Care Team Providers Name Role Phone Hallie Clay PT Unavailable Encounter Details Date Type Department Care Team Description 05/05/2021 Hospital Encounter Clinic & Specialty Alex [place]ata [address] [place] [address] [place] [address] Center Heat Seal Operator apy Hallie Clay, PT [address] [address] Social History Tobacco Use Types [...] Provider: Dr. Alex Mata, MD Yamile Conway, CONCRETE CRAFTSMAN Current Precautions/Contraindications: At high risk for skin breakdown, s/p flap surgery, current pressure injuries on feet [facility] Scientific Artist: no DIAGNOSIS Patient Active Problem List Diagnosis [...] for DME they prefer to work is BLANQUITA Brown of [employer]. The vendor is not present during today's evaluation. 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 He has utilized a manual wheelchair as his primary means of mobility since then. He has a significant pressure injury history, including on his sacral area and feet. He received his current MWC through [employer] on 10/06/20. SUBJECTIVE Patient Complaints: I just [...] Function: Randy will cont to use his [facility] and rehab accessories to complete all MRADL's, [...] independently (with hand controls) while seated in [facility]) Does it fold/disassemble for transportation?: Yes Is [...] Flexion Elbow Extension Wrist Flexion Wrist Extension Quality Control Operator Using BERNY hand dynamometer Lower Extremity Right MMT Left MMT WFL 0/5 0/5 Hip Flexion Hip Extension Hip Abduction Knee Flexion Knee Extension Dorsiflexion Inversion Eversion Plantar Flexion Great toe extension Normative drainage design coordinator strength values for Berny dynamometer for clinical [...] the wheelchair/mobility device?: Yes Wheelchair Management/Training (CPT 71763): 15 min during session(s) Pressure mapping completed [...] Specific Question: Schedule with: Answer: HALLIE CLAY [[id number]] Order Specific Question: Number of Visits patient [...] conditions documented in this encounter Care Teams Inspector Plating Relationship Specialty Start Date End Date Hallie Clay, PT Physical Therapist Physical Therapy 04/05/21 [address] [place] [address] documented as of this encounter
--- OUTSIDE RECORDS SUMMARY | 2022-04-11 09:00 | XMS_ITS | Encounter Summary ---
:1955 Author Organization [facility] Address 701 [place] [address] Phone Care Team Providers Name Role Phone Provider, Outside Primary Care Provider Unavailable Reason for Visit Reason Onset Date Comments Other 02/05/2016 Encounter Details Date Type Department Care Team Description 02/05/2016 Telephone [facility] Urology Clinic Selena Garcia MD plan of care [place] [address] [place] [address] [address] [facility], [address] [place] [address] [place], [place] [address] [phone] Social History Tobacco Use Types Packs/Day Years [...] on filedocumented in this encounter Care Teams Frame Repairer Relationship Specialty Start Date End Date Provider, Outside PCP - General 03/13/09 10/22/18 [place] [address] documented as of this encounter
--- OUTSIDE RECORDS SUMMARY | 2022-04-11 09:00 | XMS_ITS | Encounter Summary ---
:1955 Author Organization [facility] Address [address] [place] [address] Phone Care Team Providers Name Role Phone Provider, Outside Primary Care Provider Unavailable Reason for Visit Reason Onset Date Comments Refill Request 10/22/2014 Encounter Details Date Type Department Care Team Description 10/22/2014 Refill [facility] Tree Vaughan, Refill Request [address] [facility], [address] [place], [place] [address] [address] [place] [address] [place], [place] [id number] (Wo rk) Social History Tobacco Use Types [...] NOS documented in this encounter Care Teams 1St Grade Teacher Relationship Specialty Start Date End Date Provider, Outside PCP - General 03/13/09 10/22/18 [place] [address] documented as of this encounter
--- OUTSIDE RECORDS SUMMARY | 2022-04-11 09:00 | XMS_ITS | Encounter Summary ---
:1955 Author Organization [facility] Address [address] [place] [address] Phone Care Team Providers Name Role Phone Provider, Outside Primary Care Provider Unavailable Encounter Details Date Type Department Care Team Description 02/05/2016 Orders Only [facility] Monty Garcia, Neur ogenic bladder Yordy FALCON (Primary Dx) [address], [address] [facility] [address] [place], [place] [id number] Social History Tobacco Use Types Packs/Day Years [...] NOS documented in this encounter Care Teams Faro Dealer Relationship Specialty Start Date End Date Provider, Outside PCP - General 03/13/09 10/22/18 [place] [address] documented as of this encounter
--- OUTSIDE RECORDS SUMMARY | 2022-04-11 09:00 | XMS_ITS | Encounter Summary ---
:1955 [address] [facility] Address [address] [place] [address] Phone Care Team Providers Name Role Phone Provider, Outside Primary Care Provider Unavailable Reason for Visit Reason Onset Date Comments Refill Request 12/17/2013 Propantheline Encounter Details Date Type Department Care Team Description 12/17/2013 Refill [facility] Omar Savage MD Refill Request [facility] (Propantheline) [address] [facility] [place], [place] [address] Social History Tobacco Use Types [...] on filedocumented in this encounter Care Teams Toolman Relationship Specialty Start Date End Date Provider, Outside PCP - General 03/13/09 10/22/18 [place] [address] documented as of this encounter
--- OUTSIDE RECORDS SUMMARY | 2022-04-11 09:00 | XMS_ITS | Encounter Summary ---
:1955 Author Organization [facility] Address [address] [place] [address] Phone Care Team Providers Name Role Phone Provider, Outside Primary Care Provider Unavailable Reason for Visit Reason Comments Other Encounter Details Date Type Department Care Team Description 02/20/2013 Telephone [facility] Omar Reyes MD [address] [facility], [address] Research Only [place], [place] [address] Social History Tobacco Use Types [...] Hussein Giron to refill Pro-Banthine. VORB Notified [facility] pharmacy at [phone]. Telephone Encounter - Danna Alvarez RN - 02/20/2013 10:38 AM CDT Message copied by DANNA ALAVREZ on MonFeb 20, 2013 10:38 AM ------ Message from: LISSETTE SILVA Created: MonFeb 19, 2013 11:48 AM Regarding: Hussein Contact: TELEPHONE MESSAGE Taken by: Lissette Silva, 02/19/2013 11:49 AM Direct to: Osbaldo Problem: Pt. Name: Khanh Rnee : 1955 (home) Insurance: PCP: Outside Provider Comment: Edilson is calling for a verbal refill request for Propantheline. Please call [phone] Expects Return Call at: ------ documented in this encounter Plan of Treatment Not on filedocumented as of this encounter Visit Diagnoses Not on filedocumented in this encounter Care Teams Road Tester Relationship Specialty Start Date End Date Provider, Outside PCP - General 03/13/09 10/22/18 [place] [address] documented as of this encounter
--- OUTSIDE RECORDS SUMMARY | 2022-04-11 09:00 | XMS_ITS | Encounter Summary ---
:1955 Author Organization [facility] Address [address] [place] [address] Phone Care Team Providers Name Role Phone Provider, Outside Primary Care Provider Unavailable Reason for Visit Reason Onset Date Comments Refill Request 09/05/2013 macrodantin Encounter Details Date Type Department Care Team Description 09/05/2013 Refill [facility] [place] Omar Savage MD Refill Request [facility] Only (macrodantin) [address], [address] [place], [place] [address] Social History Tobacco Use Types [...] Savage, med send to to co sign. TRONICS TECHNOLOGY INSTRUCTOR documented in this encounter Plan of Treatment Not on filedocumented as of this encounter Visit Diagnoses Diagnosis Neurogenic bladder - Primary Neurogenic bladder, NOS documented in this encounter Care Teams Traffic Operator Relationship Specialty Start Date End Date Provider, Outside PCP - General 03/13/09 10/22/18 [place] [address] documented as of this encounter
--- OUTSIDE RECORDS SUMMARY | 2022-04-11 09:00 | XMS_ITS | Encounter Summary ---
:1955 Author Organization [facility] Address [address] [place] [address] Phone Care Team Providers Name Role Phone Provider, Outside Primary Care Provider Unavailable Reason for Visit Reason Onset Date Comments Refill Request 09/05/2016 Encounter Details Date Type Department Care Team Description 09/05/2016 Refill [facility] Divya Caraballo RN Refill Request [address] [facility], [address] [place], [place] [address] [place] [address] Social History Tobacco Use Types Packs/Day Years [...] NOS documented in this encounter Care Teams Garbage Person Relationship Specialty Start Date End Date Provider, Outside PCP - General 03/13/09 10/22/18 [place] [address] documented as of this encounter
--- OUTSIDE RECORDS SUMMARY | 2022-04-11 09:00 | XMS_ITS | Encounter Summary ---
:1955 Author Organization [facility] Address [address] [place] [address] Phone Care Team Providers Name Role Phone Provider, Outside Primary Care Provider Unavailable Reason for Visit Reason Comments Other Encounter Details Date Type Department Care Team Description 01/17/2012 Telephone [facility] Urology Clinic Omar Reyes MD [address] [facility], [address] Research [place], [place] [address] Social History Tobacco Use Types [...] Outside Provider Comment: Expects Return Call at: [phone] documented in this encounter Plan of Treatment Not on filedocumented as of this encounter Visit Diagnoses Not on filedocumented in this encounter Care Teams Medical Attendant Relationship Specialty Start Date End Date Provider, Outside PCP - General 03/13/09 10/22/18 [place] [address] documented as of this encounter
--- OUTSIDE RECORDS SUMMARY | 2022-04-11 09:00 | XMS_ITS | Encounter Summary ---
:1955 Author Organization [facility] Address [address] [place], [place] [address]. [place] [address] Phone Care Team Providers Name Role Phone Provider, Outside Primary Care Provider Unavailable Reason for Visit Reason Comments Follow-up Encounter Details Date Type Department Care Team Description 06/06/2013 Office Visit [facility] U[facility] Omar Savage, Neurog enic bladder Yordy FALCON (Primary Dx) [address], [address] Only [address] [place], [place] [address] Social History Tobacco Use Types [...] Comments Blood Pressure 88/58 06/06/2013 11:33 AM SOUP MIXER Pulse 79 06/06/2013 11:33 AM SOUP MIXER Temperature 36.8 ??C (98.2 ??F) 06/06/2013 11:33 AM SOUP MIXER Respiratory Rate - - Oxygen Saturation - - Inhaled Oxygen Concentration - - Weight - - Height - - Body Mass Index - - documented in this encounter Patient Instructions Patient InstructionsOmar Savage MD - 06/06/2013 11:42 AM CST Patient [facility] to us MIXER documented in this encounter Progress Notes Omar Savage MD - 06/08/2013 8:17 AM CST [facility] [address] [place] [address] (fax) [facility]#: [id number] PATIENT: MICHEAL FLETCHER : 1955 DATE: 06/06/2013 [...] MD Staff Physician Surgery Service Received in Voltage Inspector: 06/08/2013 05:34 M: 06/08/2013 08:17 filiberto STEWART/filiberto Voice ID: [id number] Document ID: [id number] MIXER Omar Savage MD - 06/08/2013 5:32 AM CST This office note has been dictated. MIXER documented in this encounter Plan of Treatment Not on filedocumented as of this encounter Visit Diagnoses Diagnosis Neurogenic bladder - Primary Neurogenic bladder, NOS documented in this encounter Care Teams Accounting Administrative Assistant Relationship Specialty Start Date End Date Provider, Outside PCP - General 03/13/09 10/22/18 [place] [address] documented as of this encounter
--- OUTSIDE RECORDS SUMMARY | 2022-04-11 09:00 | XMS_ITS | Encounter Summary ---
:1955 [address] [facility] Address [address] [place] [address] Phone Care Team Providers Name Role Phone Provider, Outside Primary Care Provider Unavailable Reason for Visit Reason Comments Other Encounter Details Date Type Department Care Team Description 02/05/2016 Refill [facility] Monty Morales MD Other [address] [facility], [address] [address] [place] [address] [phone] (Wo rk) Social History Tobacco Use Types [...] on filedocumented in this encounter Care Teams Carpenter Refrigerator Relationship Specialty Start Date End Date Provider, Outside PCP - General 03/13/09 10/22/18 [place] [address] documented as of this encounter
--- OUTSIDE RECORDS SUMMARY | 2022-04-11 09:00 | XMS_ITS | Encounter Summary ---
:1955 Author Organization [facility] Address [address] [place] [address] Phone Care Team Providers Name Role Phone Provider, Outside Primary Care Provider Unavailable Reason for Visit Reason Comments Follow-up NEUROGENIC BLADDER Encounter Details Date Type Department Care Team Description 09/15/2016 Office Visit [facility] Urology Clinic Monty Garcia Neur ogenic bladder Yordy FALCON (Primary Dx) [address] [place] [address] [address] [place], [place] [address] [phone] Social History Tobacco Use Types Packs/Day Years [...] Comments Blood Pressure 129/74 09/15/2016 8:09 AM SNOWMOBILE MECHANIC Pulse 75 09/15/2016 8:09 AM SNOWMOBILE MECHANIC Temperature 36.2 ??C (97.1 ??F) 09/15/2016 8:09 AM SNOWMOBILE MECHANIC Respiratory Rate - - Oxygen Saturation - [...] fevers. Patient has had several admissions at [facility] for decubitus ulcers in the last year. [...] MD, 09/15/2016 9:14 AM Urology Staff Pager: [phone] MOBILE MECHANIC documented in this encounter Plan of Treatment Not on filedocumented as of this encounter Visit Diagnoses Diagnosis Neurogenic bladder - Primary Neurogenic bladder, NOS documented in this encounter Care Teams Vice President Talent Management Relationship Specialty Start Date End Date Provider, Outside PCP - General 03/13/09 10/22/18 [place] [address] documented as of this encounter
--- OUTSIDE RECORDS SUMMARY | 2022-04-11 09:00 | XMS_ITS | Encounter Summary ---
:1955 Author Organization [facility] Address [address] [place] [address] Phone Care Team Providers Name Role Phone Provider, Outside Primary Care Provider Unavailable Reason for Visit Reason Comments Follow-up Encounter Details Date Type Department Care Team Description 09/03/2012 Office Visit [facility] Urology Clinic Pooja Krueger MD [address] [facility] [address] [place], [place] [id number] Neurogenic bladder False Pass Omar Savage MD Research Only (Primary Dx) [address], [address] [place], [place] [address] Social History Tobacco [...] Sign Reading Time Taken Comments Blood Pressure 112/64 09/03/2012 1:52 PM SHIPPING RECEIVING CLERK Pulse 68 09/03/2012 1:52 PM SHIPPING RECEIVING CLERK Temperature - - Respiratory Rate - - Oxygen Saturation - - Inhaled Oxygen Concentration - - Weight - - Height - - Body Mass Index - - documented in this encounter Progress Notes Omar Savage MD - 09/04/2012 8:[address] [facility] [address] [facility] [place] [address] (fax) [facility]#: [id number] PATIENT: MICHEAL RENE : 1955 DATE: 09/03/2012 UROLOGY NOTE The patient is a 57-year-old paraplegic with neurogenic bladder, last seen approximately 2009 for routine followup. His last ultrasound was in 2009, and it showed bilateral normal upper tracts. No evidence of stone or hydronephrosis. The patient performs intermittent catheterization. He is on Pro-Banthine for bladder spasms. The patient has had hospitalizations since 2009, such that they have coincided with his annual visit to urology and were not rescheduled. His hospitalizations were primarily for skin flap protection for his buttocks. The patient states that he performs intermittent catheterization without difficulty. He has not had any admissions for urosepsis. Today, his vital signs are normal. He is resting comfortably in his chair. We request that he leave a sterile catheterized specimen for examination. We will obtain a repeat renal ultrasound on his visit in 1 year consistent with his last interval of 4 years for an ultrasound. He is otherwise doing well. His medications are renewed. He has reliable supply chain for his catheters. This was 15 minutes of counseling time. Omar Savage MD Staff Physician Surgery Service Received in Materials And Processes Manager: 09/04/2012 12:20 M: 09/04/2012 20:32 [facility]/ Voice ID: [id number] Document ID: [id number] PING RECEIVING CLERK Omar Savage MD - 09/04/2012 12:19 PM CST This office note has been dictated. PING RECEIVING CLERK documented in this encounter Plan of Treatment Not on filedocumented as of this encounter Procedures Procedure Name Priority Date/Time Associated Diagnosis Comme nts URINE CULTURE Routine 09/03/2012 2:22 PM Neurogenic bladder Re sults for this SHIPPING RECEIVING CLERK procedure are i n the results section. URINALYSIS,TOTAL Routine 09/03/2012 2:22 PM Neurogenic bladder Results for this SHIPPING RECEIVING CLERK procedure are i n the results section. documented in this encounter Results URINE CULTURE (09/03/2012 2:22 PM SHIPPING RECEIVING CLERK) [facility] Method Time Signature Urine Cult [facility] ? PROCEDURE: MB Urine Culture ?SOURCE: Urine Midstream ?COLLECTED: 09/03/2012 14:22 ? BODY SITE: ?FREE TEXT SOURCE: ?STARTED: 09/03/2012 15:35 ? FINAL REPORT Final Report Verified:09/05/2012 13:06 50,000 - 100,000 organisms/ml Mixed gram positive arthur. No further work-up. Specimen Anatomical Collection Method Collection Time Receive d Time (Source) Location / / Volume Laterality Urine Midstream. 09/03/2012 2:22 PM 09/03 3:34 (Urine) SHIPPING RECEIVING CLERK PM SHIPPING RECEIVING CLERK Omar Savage MD LAB MICROBIOLOGY Performing Organization Address City/State/ZIP Code Phon e Number [facility] [place] [address] (ABNORMAL) URINALYSIS, TOTAL (09/03/2012 2:22 PM SHIPPING RECEIVING CLERK) athologist Signature Color YELLOW YELLOW [facility] Appearance CLEAR CLEAR [facility] Urine Glucose NEGATIVE NEGATIVE [facility] Bili UA NEGATIVE NEGATIVE [facility] Comment: Confirmatory test not available . Ketones NEGATIVE NEGATIVE [facility] Specific Heber 1.016 1.003 - 1.030 [facility] Blood Ur NEGATIVE Neg-Trace [facility] PH Urine 6.5 5.0 - 7.0 [facility] Protein Ur NEGATIVE Neg-Trace [facility] Urobilinogen 1.0 0.2 - 1.0 EU/dL [facility] Nitrite Ur NEGATIVE NEGATIVE [facility] Leuk Est SMALL (A) Neg-Trace [facility] WBC Ur 6-20 (A) 0 - 5 perHPF [facility] RBC Ur 0-5 0 - 5 perHPF [facility] SQ EPITH 2+ 1+ [facility] Specimen Anatomical Collection Method Collection Time Receive d Time (Source) Location / / Volume Laterality Urine 09/03/2012 2:22 PM 3 2:51 SHIPPING RECEIVING CLERK PM SHIPPING RECEIVING CLERK Omar Savage MD LABORATORY Performing Organization Address City/State/ZIP Code Phon e Number [facility] [place] [address] documented in this encounter Visit Diagnoses Diagnosis Neurogenic bladder - Primary Neurogenic bladder, NOS documented in this encounter Care Teams Beater Dumper Relationship Specialty Start Date End Date Provider, Outside PCP - General 03/13/09 10/22/18 [place] [address] documented as of this encounter
--- OUTSIDE RECORDS SUMMARY | 2022-04-11 09:00 | XMS_ITS | Encounter Summary ---
:1955 Author Organization [facility] Address [address] [place] [address] Phone Care Team Providers Name Role Phone Provider, Outside Primary Care Provider Unavailable Reason for Visit Reason Comments Other Encounter Details Date Type Department Care Team Description 05/22/2016 Refill [facility] Urology Clinic Monty Morales MD Other [address] [facility], [address] [address] [place] [address] [phone] (Wo rk) Social History Tobacco Use Types [...] received in Urology Clinic from the pt's [facility], for propantheline and nitrofurantoin. [...] NOS documented in this encounter Care Teams Assembler Bonding Relationship Specialty Start Date End Date Provider, Outside PCP - General 03/13/09 10/22/18 [place] [address] documented as of this encounter
--- OUTSIDE RECORDS SUMMARY | 2022-04-11 09:00 | XMS_ITS | Encounter Summary ---
:1955 Author Organization [facility] Address [address] [place] [address] Phone Care Team Providers Name Role Phone Provider, Outside Primary Care Provider Unavailable Encounter Details Date Type Department Care Team Description 09/07/2012 Letters(Tab) [facility] Omar Reyes MD [address] [place] [address], [address] Research Only [place], [place] [address] Social History Tobacco Use Types Packs/Day Years Used Date Smoking Tobacco: Former Cigarettes Cigars Smokeless Tobacco: Never Alcohol Use Standard Drinks/Week Comments Yes 3.3 (1 standard drink = 0.6 oz pure alco hol) once in while Sex Assigned at Date Recorded Not on file documented as of this encounter Progress Notes Omar Savage MD - 09/07/2012 7:45 AM CST [facility] [address] [place], [place] [address] September 07, 2012 TO: Micheal Fletchre [id number] [place] [id number] RE:MICHEAL FLETCHER MR#:[id number] :1955 Dear Mr. Fletcher: From your recent Urology Clinic visit, your urine culture grew only mixed gram-positive organisms, which are not considered an infection. Please feel free to contact me for questions. Best wishes. Looking forward to seeing you at your next scheduled visit. Sincerely, mOar Savage MD Staff Physician Surgery Service Received in Retail Advertising Account Executive: 09/07/2012 07:32 M: 09/07/2012 07:45 cn CS/cn Voice ID: [id number] Document ID: [id number] cc:MICHEAL FLETCHER [id number] [place] [address] ING SERVICES MANAGER documented in this encounter Plan of Treatment Not on filedocumented as of this encounter Visit Diagnoses Not on filedocumented in this encounter Care Teams Pull Through Hooker Relationship Specialty Start Date End Date Provider, Outside PCP - General 03/13/09 10/22/18 [place] [address] documented as of this encounter
--- OUTSIDE RECORDS SUMMARY | 2022-04-11 09:00 | XMS_ITS | Encounter Summary ---
:1955 Author Organization [facility] Address [address] [place] [address] Phone Care Team Providers Name Role Phone Provider, Outside Primary Care Provider Unavailable Reason for Visit Reason Onset Date Comments Refill Request 07/05/2016 Encounter Details Date Type Department Care Team Description 07/05/2016 Refill [facility] Divya Caraballo RN Refill Request [address] [facility], [address] [place], [place] [address] [place] [address] Social History Tobacco Use Types Packs/Day Years [...] NOS documented in this encounter Care Teams Feather Washer Relationship Specialty Start Date End Date Provider, Outside PCP - General 03/13/09 10/22/18 [place] [address] documented as of this encounter
--- OUTSIDE RECORDS SUMMARY | 2022-04-11 09:00 | XMS_ITS | Encounter Summary ---
:1955 Author Organization [facility] Address [address] [place] [address] Phone Care Team Providers Name Role Phone Provider, Outside Primary Care Provider Unavailable Encounter Details Date Type Department Care Team Description 10/21/2014 Telephone [facility] Omar Reyes MD [address] Research Only [place], [place] [address] Social History Tobacco Use Types Packs/Day Years Used Date Smoking Tobacco: Former Cigarettes Cigars Smokeless Tobacco: Never Alcohol Use Standard Drinks/Week Comments Yes 3.3 (1 standard drink = 0.6 oz pure alco hol) once in while Sex Assigned at Date Recorded Not on file documented as of this encounter Miscellaneous Notes Telephone Encounter - Ofelia Lopez RN - 10/22/2014 4:13 PM CDT Martín ANDERSON will refill if appropriate. Sent message to the front to call and schedule appt. Telephone Encounter - Ofelia Lopez RN - 10/21/2014 5:20 PM CDT Spoke with Mr Rene, he would like to schedule with one of the new physicians but would need a refill until the appt. He state he has been on the nitrofurantion for 20 years. He self caths and has noproblems with infections with the medication. Will ask one of the MD's for refill to hold him until the appt. He is completely out of the medication. documented in this encounter Plan of Treatment Not on filedocumented as of this encounter Visit Diagnoses Not on filedocumented in this encounter Care Teams Level Vial Sealer Relationship Specialty Start Date End Date Provider, Outside PCP - General 03/13/09 10/22/18 [place] [address] documented as of this encounter
--- OUTSIDE RECORDS SUMMARY | 2022-04-11 09:00 | XMS_ITS | Encounter Summary ---
:1955 Author Organization [facility] Address [address] [place] [address] Phone Care Team Providers Name Role Phone Provider, Outside Primary Care Provider Unavailable Reason for Visit Reason Comments Bladder Problem Encounter Details Date Type Department Care Team Description 01/26/2015 Office Visit [facility] Urology Clinic Monty Garcia Neur ogenic bladder Yordy FALCON (Primary Dx) [address] , [address] [facility] [address] [place], [place] [phone] [id number] Social History Tobacco Use Types Packs/Day Years [...] - 01/26/2015 4:13 PM CDT [facility]OLOGY CLINIC [facility]: NEW PATIENT/CONSULT VISIT Khanh Rene : 1955 [...] NOS documented in this encounter Care Teams Club Licensee Relationship Specialty Start Date End Date Provider, Outside PCP - General 03/13/09 10/22/18 [place] [address] documented as of this encounter
--- OUTSIDE RECORDS SUMMARY | 2022-04-11 09:00 | XMS_ITS | Encounter Summary ---
:1955 Author Organization [facility] Address [address] [facility] [address] [facility] [place] [place] [address] Phone Care Team Providers Name Role Phone Provider, Outside Primary Care Provider Unavailable Reason for Visit Reason Comments Follow-up Encounter Details Date Type Department Care Team Description 02/14/2011 Office Visit [facility] [place] [place] Phys Med/Rehab Sameera Frances D ecubitus ulcer Clinic (Primary Dx) [address] [facility] [address] [place], [place] [address] [place], [place] [phone] (Wo rk) Social History Tobacco Use Types [...] site documented in this encounter Care Teams Wool Merchant Relationship Specialty Start Date End Date Provider, Outside PCP - General 03/13/09 10/22/18 [place] [address] documented as of this encounter
--- OUTSIDE RECORDS SUMMARY | 2022-04-11 09:01 | XMS_ITS | Encounter Summary ---
:1955 Author Organization [facility] Address [address] [facility] [place] [address] Phone Care Team Providers Name Role Phone Provider, Outside Primary Care Provider Unavailable Reason for Visit Reason Onset Date Comments Call Back 09/06/2010 Encounter Details Date Type Department Care Team Description 09/06/2010 Telephone [facility] Neurology Clini c Vickie Odell RN Call Back [address] [facility] [address] [address] [place], [place] [address] Social History Tobacco Use Types [...] states that he does not have a social media community manager in [facility]. R: Patient quadriplegic states that he would like to speak directly with . Routing to LEAD Telephone Encounter - Vickie Odell RN - 09/06/2010 1:59 PM CST Message copied by VICKIE ODELL on MonSep 06, 2010 1:59 PM ------ Message from: BRANDEE TALAMANTES Created: MonSep 06, 2010 1:52 PM 09/06/2010 1:53 PM Khanh Edgard @[email or web address]@ 1955 Questions regarding a referral for a pressure sore from Dr Frances. Best number to call patient back: [phone]. Best time of day to reach patient:anytime. LEAD documented in this encounter Plan of Treatment Not on filedocumented as of this encounter Visit Diagnoses Not on filedocumented in this encounter Care Teams Mobile Therapist Relationship Specialty Start Date End Date Provider, Outside PCP - General 03/13/09 10/22/18 [place] [address] documented as of this encounter
--- OUTSIDE RECORDS SUMMARY | 2022-04-11 09:01 | XMS_ITS | Encounter Summary ---
:1955 Author Organization [facility] Address [address] [place] [address] Phone Care Team Providers Name Role Phone Provider, Outside Primary Care Provider Unavailable Reason for Referral Consult/Test/Treat (Routine) - Closed Specialty Diagnoses / Procedures Referred By Contact Refer red To Contact Plastic Surgery / Diagnoses Ulcer Sameera Frances, PLASTIC SURGERY MD [address] [place], [place] [address] Referral ID Status Reason Start Date Expiration Date Visits Requ ested Visits Authorized [id number] Closed 09/13/2010 09/13/2011 1 1 ER BRAZER Encounter Details Date Type Department Care Team Description 09/13/2010 Orders Only [facility] Phys Med/Rehab Sameera Frances U lcer () (Primary Clinic MD Dx) [address] [place], [place] [address] [place], [place] [phone] (Wo rk) Social History Tobacco Use Types [...] site documented in this encounter Care Teams Claim Clinician Relationship Specialty Start Date End Date Provider, Outside PCP - General 03/13/09 10/22/18 [place] [address] documented as of this encounter
--- OUTSIDE RECORDS SUMMARY | 2022-04-11 09:01 | XMS_ITS | Encounter Summary ---
:1955 Author Organization [facility] Address [address] [place] [address] Phone Care Team Providers Name Role Phone Provider, Outside Primary Care Provider Unavailable Encounter Details Date Type Department Care Team Description 09/17/2010 Hospital Encounter [facility] Arnold Vora [address] MD [place], [place] [address] [address] [facility] [phone] [place], [place] [id number] Social History Tobacco Use Types Packs/Day Years [...] () Results for this LAT HIP AM EDGE GLUER procedure are i n the results section. documented in this encounter Results (ABNORMAL) XR PELVIS WITH BOTH LAT HIP (09/17/2010 10:28 AM EDGE GLUER) Anatomical Region Laterality Modality Pelvis Computed Radiography Specimen (Source) Anatomical Collection Method Collection Time Re ceived Time Location / / Volume Laterality 09/17/2010 10:28 AM EDGE GLUER Impressions 09/17/2010 10:35 AM EDGE GLUER Impression: Severe osteoarthritis involving both hips with postsurgical fixation of a left hip fracture. There is no cortical irregularity to suggest osteomyelitis. This however lucency surrounding a fe moral IM nail. Three-phase bone scan may be beneficial to assess for infection surrounding the nail if clinically indicated. Reading Radiologist: Khanh Brunson Narrative 09/17/2010 10:35 AM EDGE GLUER History: Rule out osteo. Comparison: None. Findings [...] unspecified documented in this encounter Care Teams Work Adjustment Instructor Relationship Specialty Start Date End Date Provider, Outside PCP - General 03/13/09 10/22/18 [place] [address] documented as of this encounter
--- OUTSIDE RECORDS SUMMARY | 2022-04-11 09:01 | XMS_ITS | Encounter Summary ---
:1955 [address] [facility] Address [address] [place] [address] Phone Care Team Providers Name Role Phone Provider, Outside Primary Care Provider Unavailable Reason for Visit Reason Comments Referral Consult/Test/Treat (Routine) - Closed Specialty Diagnoses / Procedures Referred By Contact Refer red To Contact Plastic Surgery / Diagnoses Ulcer Sameera Frances, PLASTIC SURGERY [address] [place], [place] [address] Referral ID Status Reason Start Date Expiration Date Visits Requ ested Visits Authorized [id number] Closed 09/13/2010 09/13/2011 1 1 Encounter Details Date Type Department Care Team Description 09/17/2010 Office Visit [facility] [place]astic Surg Bubba Loya () Sara Rasmussen MD (Primary Dx) [address] [place], [place] [address] [place], [place] [phone] Social History Tobacco Use Types Packs/Day Years Used Date Smoking Tobacco: Never Smokeless Tobacco: Never Alcohol Use Standard Drinks/Week Comments Yes 3.3 (1 standard drink = 0.6 oz pure alco hol) once in while Sex Assigned at Date Recorded Not on file documented as of this encounter Last Filed Vital Signs Vital Sign Reading Time Taken Comments Blood Pressure 112/77 09/17/2010 8:59 AM PAINTER BOTTOM Pulse 98 09/17/2010 8:59 AM PAINTER BOTTOM Temperature 35.9 ??C (96.7 ??F) 09/17/2010 8:59 AM PAINTER BOTTOM Respiratory Rate - - Oxygen Saturation - [...] P: As ordered by provider. Dr loya TER BOTTOM Arnold Mejía MD - 09/17/2010 9:45 AM [...] documented. Bubba Loya MD, 09/17/2010 11:39 AM TER BOTTOM documented in this encounter Plan of Treatment Not on filedocumented as of this encounter Procedures Procedure Name Priority Date/Time Associated Diagnosis Comme nts SED RATE (ESR) Routine 09/17/2010 9:44 AM Quadriplegia () Re sults for this PAINTER BOTTOM procedure are i n the results section. CBC WITH PLATELET Routine 09/17/2010 9:44 AM Quadriplegia () Results for this PAINTER BOTTOM procedure are i n the results section. documented in this encounter Results (ABNORMAL) XR PELVIS WITH BOTH LAT HIP (09/17/2010 10:28 AM PAINTER BOTTOM) Anatomical Region Laterality Modality Pelvis Computed Radiography Specimen (Source) Anatomical Collection Method Collection Time Re ceived Time Location / / Volume Laterality 09/17/2010 10:28 AM PAINTER BOTTOM Impressions 09/17/2010 10:35 AM PAINTER BOTTOM Impression: Severe osteoarthritis involving both hips with postsurgical fixation of a left hip fracture. There is no cortical irregularity to suggest osteomyelitis. This however lucency surrounding a fe moral IM nail. Three-phase bone scan may be beneficial to assess for infection surrounding the nail if clinically indicated. Reading Radiologist: Khanh Brunson Narrative 09/17/2010 10:35 AM PAINTER BOTTOM History: Rule out osteo. Comparison: None. Findings [...] (ABNORMAL) CBC WITH PLATELET (09/17/2010 9:44 AM PAINTER BOTTOM) P athologist Signature WBC 5.3 4.0 - 10.0 [facility] k/cmm RBC 4.03 (L) 4.60 - 6.00 [facility] m/cmm Hgb 11.8 (L) 13.1 - 17.5 [facility] g/dL Hematocrit 36.4 (L) 40.0 - 51.0 [facility] % MCV 90.3 80.0 - [facility] 100.0 fL MCH 29.3 25.0 - 32.0 [facility] pg MCHC 32.4 31.0 - 36.0 [facility] g/dL RDW 12.8 11.5 - 14.5 [facility] % Plt 308 150 - 400 [facility] k/cmm MPV 8.0 6.5 - 12.5 [facility] fL NRBC .0 0.0 - 0.0 % [facility] Specimen Anatomical Collection Method Collection Time Receive d Time (Source) Location / / Volume Laterality Blood 09/17/2010 9:44 AM 1 9:44 PAINTER BOTTOM AM PAINTER BOTTOM Arnold Mejía MD LABORATORY Performing Organization Address City/[facility]/ZIP [facility] Phon e Number [facility] [place] [address] LAB (ABNORMAL) SED RATE (ESR) (09/17/2010 9:44 AM PAINTER BOTTOM) P athologist Signature Sed Rate 51 (H) 0 - 10 mm/hr [facility] Specimen Anatomical Collection Method Collection Time Receive d Time (Source) Location / / Volume Laterality Blood 09/17/2010 9:44 AM 1 9:44 PAINTER BOTTOM AM PAINTER BOTTOM Arnold Mejía MD LABORATORY Performing Organization Address City/[facility] Phon e Number [facility] [place] [address] LAB documented in this encounter Visit Diagnoses Diagnosis Quadriplegia () - Primary Quadriplegia, unspecified Quadriplegia () Quadriplegia, unspecified documented in this encounter Care Teams Die Presser Relationship Specialty Start Date End Date Provider, Outside PCP - General 03/13/09 10/22/18 [place] [address] documented as of this encounter
--- OUTSIDE RECORDS SUMMARY | 2022-04-11 09:01 | XMS_ITS | Encounter Summary ---
:1955 Author Organization [facility] Address [address] [place] [address] Phone Care Team Providers Name Role Phone Provider, Outside Primary Care Provider Unavailable Reason for Visit Reason Comments Follow-up Encounter Details Date Type Department Care Team Description 12/06/2010 Office [place] [facility] [place]/Rehab Sameera Frances U lcer () (Primary Clinic MD Dx) [address] [facility] [address] [place], [place] [address] [place], [place] [phone] (Wo rk) Social History Tobacco Use Types [...] site documented in this encounter Care Teams Alemite Operator Relationship Specialty Start Date End Date Provider, Outside PCP - General 03/13/09 10/22/18 [place] [address] documented as of this encounter
--- OUTSIDE RECORDS SUMMARY | 2022-04-11 09:01 | XMS_ITS | Encounter Summary ---
:1955 Author Organization [facility] Address [address] [facility] [address] [place] [address] Phone Care Team Providers Name Role Phone Provider, Outside Primary Care Provider Unavailable Reason for Visit Reason Comments Follow-up Encounter Details Date Type Department Care Team Description 09/24/2010 Office Visit [facility] [place] [facility] Plastic Surg DaysiBubba Veronica us ulcer, stage Clinic MD Valery IV () (Primary Dx) [address] [facility] [address] [facility] [address] [facility] [address] [place], [place] [address] [place], [place] [phone] Social History Tobacco Use Types Packs/Day Years Used Date Smoking Tobacco: Never Smokeless Tobacco: Never Alcohol Use Standard Drinks/Week Comments Yes 3.3 (1 standard drink = 0.6 oz pure alco hol) once in while Sex Assigned at Date Recorded Not on file documented as of this encounter Last Filed Vital Signs Vital Sign Reading Time Taken Comments Blood Pressure 107/73 09/24/2010 10:33 AM POLYSOMNOGRAPHIC TECH Pulse 87 09/24/2010 10:33 AM POLYSOMNOGRAPHIC TECH Temperature 36.8 ??C (98.2 ??F) 09/24/2010 10:33 AM POLYSOMNOGRAPHIC TECH Respiratory Rate - - Oxygen Saturation - - Inhaled Oxygen Concentration - - Weight - - Height - - Body Mass Index - - documented in this encounter Patient Instructions Patient InstructionsMari Odell RN - 09/24/2010 2:47 PM CST Wound Care Instructions Dressing change instructions: You will need to change your dressings every daily. Follow these instructions: (1) Shower daily with soap and water. (2) Cleanse your wound with soap and water.. (3) Apply 1/2 packing wet to dry with 2x2's and island dressing. Keep dressings clean, dry and intact. General Care Instructions: - Maintain a high calorie, high protein diet If you notice any of the following signs/symptoms of infection, please contact the Surgery clinic [phone]: redness, warmth, swelling, drainage, pain, and/or fever over 100 degrees. SOMNOGRAPHIC TECH documented in this encounter Progress Notes Mari Odell RN - 09/24/2010 2:45 PM CST Wound care D: Here for wound care. Location: coccyx A: Exam per provider. Wound cleansed with: technicare, H2O and rinsed. Dressing applied: and wet to dry with 1/2 packing and 2x2's with Island dressing. R: Patient tolerated procedure well. P: As ordered by provider. SOMNOGRAPHIC TECH Syl Yanes MD - 09/24/2010 11:21 AM CST SURGERY CLINIC NOTE -G3 Khanh [...] therefore pt was sent to us for evaluation and was seen for the firsttime last week. Pt returns to clinic today for a follow up appt. At the end of his visit last week the plan was for the pt to have an appt set up with Dr. Frances as Dr. Tavarez felt that surgery was nota good option for repair of this decubitus ulcer; however, there was some issues in setting that appt up. Pt was able to get an appt with Dr. Frances, but not until November 2010. Pt returns today for a repeat follow-up clinic appt. Pt and his report no change in the decubitus ulcer, they are using wet to dry dressings and changing twice daily. He denies fever, chills, nausea, vomiting and pain. He has received the special cushion from the [facility] which is supposed to relieve pressure from that area. He does have another apptset up with Soumya at the [facility] to complete the mapping to ensure no pressure at that site. Last week pt had pelvix XR which was negative for osteomyelitis, CBC with a normal WBC. PMH: Past Medical History Diagnosis Date ??? 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 Neurogenic bladder H/o 1SL ??? Autonomic dysreflexia H/o ??? Neurogenic bowel ??? DVT 1983 ??? Screening for prostate cancer 04/01/2010 PSH: No past surgical history on file. History Substance Use Topics ??? Smoking status: Never Smoker ??? Smokeless tobacco: Never Used ??? Alcohol Use: 2.0 oz/week Allergies Allergen Reactions ??? Cephalexin Monohydrate Nausea/Vomiting ??? Iodine Nausea/Vomiting Shellfish, betadine prep ect no allery- per pt ??? Shellfish Allergy Nausea/Vomiting ??? Augmentin Xr Nausea/Vomiting ROS: The remainder of the Review of Systems is negative. PHYSICAL EXAM: Constitutional: General appearance: Alert, cooperative, and in no distress, thin, pleasant. Vital Signs: BP 107/73 Pulse 87 Temp 36.8 ??C (98.2 ??F) Gastrointestinal: Abdominal: Soft, non-tender, non-distended Skin: Right decubitus ulcer, open area about 2.5cm opening, cavity tracks 6cm in depth and extends more medially, superiorly, no foul odor, no cellulitis. Clean area surrounding wound. ASSESSMENT/Plan: 55 y.o. Quadriplegic gentleman with stage IV ischial decubitus ulcer. We had an extensive discussiontoday and Dr. Tavarez reassessed the wound. Dr. Tavarez feels that Mr. Rene's wound is not amenable to surgery at this time. We recommend continuing wet to dry dressings, changing twice daily as they are already doing. We discussed the importance of relieving the pressure on the spot as much as possible - using cushions and completing the mapping if he hasn't already. We also discussed setting up an appt with Dr. Frances earlier than November. We discussed that a wound vac may be beneficial to help decrease the healing time; however, that will be at Dr. Frances's discretion. We also discussed that this will take a long time to heal, likely 6-8 months. Syl Yanes MD, 09/24/2010 11:27 AM FACULTY NOTE I saw and evaluated the patient 09/24/10. I discussed with the resident and agree with the resident???s findings and plan documented in the resident???s note from above. Any revisions by me are documented. Bubba Tavarez MD, 09/25/2010 9:26 AM SOMNOGRAPHIC TECH documented in this encounter Plan of Treatment Not on filedocumented as of this encounter Visit Diagnoses Diagnosis Decubitus ulcer, stage IV () - Primary Pressure ulcer, unspecified site documented in this encounter Care Teams Vp Informatics Relationship Specialty Start Date End Date Provider, Outside PCP - General 03/13/09 10/22/18 [place] [address] documented as of this encounter
--- OUTSIDE RECORDS SUMMARY | 2022-04-11 09:01 | XMS_ITS | Encounter Summary ---
:1955 Author Organization [facility] Address [address] [place] [address] Phone Care Team Providers Name Role Phone Provider, Outside Primary Care Provider Unavailable Reason for Visit Reason Onset Date Comments Supplies 09/20/2010 Encounter Details Date Type Department Care Team Description 09/20/2010 Telephone [facility] Surgery Clinic Alka Jade RN Supplies [address] [place] [address] [place], [place] [address] Social History Tobacco Use Types [...] - 09/20/2010 10:02 AM CST Verified that [facility] pharmacy received fax for supplies on 09/17/10. ING CREW SUPERVISOR Telephone Encounter - Alka Jade RN - [...] 1955 (home) Insurance: PCP: Outside Provider Comment: [facility] [phone] Prescribed supplies Expects Return Call at: home see above ING CREW SUPERVISOR documented in this encounter Plan of Treatment Not on filedocumented as of this encounter Visit Diagnoses Not on filedocumented in this encounter Care Teams Barrel Marker Relationship Specialty Start Date End Date Provider, Outside PCP - General 03/13/09 10/22/18 [place] [address] documented as of this encounter
--- OUTSIDE RECORDS SUMMARY | 2022-04-11 09:01 | XMS_ITS | Encounter Summary ---
:1955 Author Organization [facility] Address [address] [place] [address] Phone Care Team Providers Name Role Phone Provider, Outside Primary Care Provider Unavailable Reason for Visit Reason Onset Date Comments Call Back 09/30/2010 Encounter Details Date Type Department Care Team Description 09/30/2010 Nurse Triage [facility] [place] Quang Toscano, Call Back [facility] [id number] [place] [address] Social History Tobacco Use Types Packs/Day [...] requests that she call back again at [phone]. R: routing to OPERATION SUPERVISOR Telephone Encounter - Quang Toscano RN - 09/30/2010 4:24 PM CELL OPERATION SUPERVISOR Message copied by QUANG TOSCANO on MonSep [...] CHRISTIANO TINAJERO Phone number for return call: [phone] OPERATION SUPERVISOR documented in this encounter Plan of Treatment Not on filedocumented as of this encounter Visit Diagnoses Not on filedocumented in this encounter Care Teams Grinding Wheel Inspector Relationship Specialty Start Date End Date Provider, Outside PCP - General 03/13/09 10/22/18 [place] [address] documented as of this encounter
--- OUTSIDE RECORDS SUMMARY | 2022-04-11 09:01 | XMS_ITS | Encounter Summary ---
:1955 Author Organization [facility] Address [address] [place] [address] Phone Care Team Providers Name Role Phone Provider, Outside Primary Care Provider Unavailable Encounter Details Date Type Department Care Team Description 11/15/2010 Office Visit [facility] [place] Phys Med/Rehab Sameera Frances D ecubitus ulcer Clinic (Primary Dx) [address] [facility] [address] [place], [place] [address] [place], [place] [phone] (Wo rk) Social History Tobacco Use Types [...] before documented in this encounter Progress Notes aSmeera Frances MD - 11/16/2010 10:42 [place] [address] MEDREC#: [id number] PATIENT: MICHEAL RENE : 1955 DATE: 11/15/2010 [...] Physical Medicine and Rehabilitation Service Received in Dice Table Person: 11/15/2010 12:55 M: 11/16/2010 02:37 bj CLR/bj Voice ID: [id number] Document ID: [id number] cc:[place] [address] Sameera Frances MD - 11/15/2010 12:44 PM CDT See dictation Sameera Frances MD, 11/15/2010 12:44 PM documented in this encounter Plan of Treatment Not on filedocumented as of this encounter Visit Diagnoses Diagnosis Decubitus ulcer - Primary Pressure ulcer, unspecified site documented in this encounter Care Teams Pot Runner Relationship Specialty Start Date End Date Provider, Outside PCP - General 03/13/09 10/22/18 [place] [address] documented as of this encounter
--- OUTSIDE RECORDS SUMMARY | 2022-04-11 09:01 | XMS_ITS | Encounter Summary ---
:1955 Author Organization [facility] Address [address] [facility] [place] [address] Phone Care Team Providers Name Role Phone Provider, Outside Primary Care Provider Unavailable Reason for Visit Reason Comments Neurologic Problem pmr Encounter Details Date Type Department Care Team Description 12/27/2010 Office Visit [facility] [place] Phys Med/Rehab Abhinav Chavez MD NEED ADDRESS Ulcer () (Primary Clinic Sameera Frances MD [address] [place] [address] Dx) [address] [place], [place] [address] Social History Tobacco Use Types [...] Patient Instructions Patient InstructionsSameera Frances MD - 12/27/2010 12:38 PM CDT [...] site documented in this encounter Care Teams Cnc Programmer Relationship Specialty Start Date End Date Provider, Outside PCP - General 03/13/09 10/22/18 [place] [address] documented as of this encounter
--- OUTSIDE RECORDS SUMMARY | 2022-04-11 09:01 | XMS_ITS | Encounter Summary ---
:1955 Author Organization [facility] Address [address] [place] [address] Phone Care Team Providers Name Role Phone Provider, Outside Primary Care Provider Unavailable Encounter Details Date Type Department Care Team Description 08/30/2010 Telephone [facility] [place] Reece [place], [place] [address] [facility] [address] [place] [address] Social History Tobacco Use Types Packs/Day Years [...] 08/30/2010 11:12 AM To: Neurology Team [place] [facility] [place] Message ----- From: Nola Espino Sent: 08/27/2010 1:52 PM To: Neurology Vegetable Washer Pool Patient: Khanh Rene : 1955 Called to schedule an appointment with provider:Dr. Frances No appointments available: with preferred provider.. Date and time requested: caryn Reason for visit: Pt has a pressure sore, and needs a FU appt Phone number for return call: [phone] Monday08/30/10. Khanh Rene will need to [facility] at [phone] to schedule a follow up visit with Dr Frances in her PM&R Clinic. We will call Khanh and inform him of this. Reece Ziegler RN ER GLUER documented in this encounter Plan of Treatment Not on filedocumented as of this encounter Visit Diagnoses Not on filedocumented in this encounter Care Teams Flight Attendant/Inflight Supervisor Relationship Specialty Start Date End Date Provider, Outside PCP - General 03/13/09 10/22/18 [place] [address] documented as of this encounter
--- OUTSIDE RECORDS SUMMARY | 2022-04-11 09:01 | XMS_ITS | Encounter Summary ---
:1955 Author Organization [facility] Address [address] [place] [address] Phone Care Team Providers Name Role Phone Provider, Outside Primary Care Provider Unavailable Encounter Details Date Type Department Care Team Description 09/13/2010 Notes/Trans [facility] ALS [facility] Sameera Frances MD [address] , [address] [facility] Professional Mail Code [address] [address] [place] [address] [phone] Social History Tobacco Use Types Packs/Day Years Used Date Smoking Tobacco: Never Alcohol Use Standard Drinks/Week Comments Yes 3.3 (1 standard drink = 0.6 oz pure alco hol) Sex Assigned at Date Recorded Not on file documented as of this encounter Progress Notes Sameera Frances MD - 09/16/2010 12:35 [place] [address] [facility]#: [id number] PATIENT: MICHEAL RENE : 1955 DATE: 09/13/2010 [...] Physical Medicine and Rehabilitation Service Received in Manager Contracting: 09/13/2010 15:26 M: 09/14/2010 09:05 [facility] HOMA/srikanth Voice ID: [id number] Document ID: [id number] OF MEN documented in this encounter Plan of Treatment Not on filedocumented as of this encounter Visit Diagnoses Not on filedocumented in this encounter Care Teams Private Mortgage Banker Safe Relationship Specialty Start Date End Date Provider, Outside PCP - General 03/13/09 10/22/18 [place] [address] documented as of this encounter
--- OUTSIDE RECORDS SUMMARY | 2022-04-11 09:01 | XMS_ITS | Encounter Summary ---
:1955 Author Organization [facility] Address [address] [facility] [place] [address] Phone Care Team Providers Name Role Phone Provider, Outside Primary Care Provider Unavailable Reason for Visit Reason Onset Date Comments Call Back 11/08/2010 Encounter Details Date Type Department Care Team Description 11/08/2010 Telephone [facility] [place] Vickie Odell RN Call Back [address] [facility] [address] [address] [place], [place] [address] Social History Tobacco Use Types [...] that was to call [employer] [phone] to order supplieslast after last visit 11-01-10. [...] Outside Provider Comment:na Expects Return Call at: [phone] documented in this encounter Plan of Treatment Not on filedocumented as of this encounter Visit Diagnoses Not on filedocumented in this encounter Care Teams Scrummaster Relationship Specialty Start Date End Date Provider, Outside PCP - General 03/13/09 10/22/18 [place] [address] documented as of this encounter
--- OUTSIDE RECORDS SUMMARY | 2022-04-11 09:01 | XMS_ITS | Encounter Summary ---
:1955 Author Organization [facility] Address [address] [place], [place] [address] [address] Phone Care Team Providers Name Role Phone Provider, Outside Primary Care Provider Unavailable Encounter Details Date Type Department Care Team Description 10/01/2010 Orders Only HFA Urology Omar Savage, Neurogenic bladder [address], [address] (Primary Dx) [place], [place] [address] Research Only [phone] Social History Tobacco Use Types Packs/Day Years [...] NOS documented in this encounter Care Teams Door Manager Relationship Specialty Start Date End Date Provider, Outside PCP - General 03/13/09 10/22/18 [place] [address] documented as of this encounter
--- OUTSIDE RECORDS SUMMARY | 2022-04-11 09:01 | XMS_ITS | Encounter Summary ---
:1955 Author Organization [facility] Address [address] [place] [address] Phone Care Team Providers Name Role Phone Provider, Outside Primary Care Provider Unavailable Reason for Visit Reason Comments Neurologic Problem pmr Encounter Details Date Type Department Care Team Description 11/01/2010 Office Visit [facility] [place] Med/Rehab Sameera Frances D ecubitus ulcer, Clinic MD [place] (Primary Dx) [address] [facility] [address] Mail Code P[address] [place], [place] [address] [place], [place] [phone] (Wo rk) Social History Tobacco Use Types [...] CDT Height - - Body Mass Index 82464.15 07/31/2007 3:21 PM CONTRACT ASSOCIATE MANAGER documented in this encounter Patient Instructions [...] male with long history of a C7 [place] Spinal [employer] B spinal cord [...] male with long history of a C7 [place] [employer] B spinal cord [...] buttock documented in this encounter Care Teams Route Rider Relationship Specialty Start Date End Date Provider, Outside PCP - General 03/13/09 10/22/18 [place] [address] documented as of this encounter
--- OUTSIDE RECORDS SUMMARY | 2022-04-11 09:01 | XMS_ITS | Encounter Summary ---
:1955 Author Organization [facility] Address [address] [place] [address] Phone Care Team Providers Name Role Phone Provider, Outside Primary Care Provider Unavailable Encounter Details Date Type Department Care Team Description 10/19/2010 Refill HFA Urology Omar Savage MD [address] [facility], [address] Research Only [place], [place] [address] Social History Tobacco Use Types [...] Insurance: PCP: Outside Provider Comment: Please call [facility] pharmacy regarding getting an alternative for his medication Propantheline. Please call Ange Valdivia Return Call at: [phone] documented in this encounter Plan of Treatment Not on filedocumented as of this encounter Visit Diagnoses Diagnosis Neurogenic bladder - Primary Neurogenic bladder, NOS documented in this encounter Care Teams Batter Depositor Relationship Specialty Start Date End Date Provider, Outside PCP - General 03/13/09 10/22/18 [place] [address] documented as of this encounter
--- OUTSIDE RECORDS SUMMARY | 2022-04-11 09:01 | XMS_ITS | Encounter Summary ---
:1955 Author Organization [facility] Address [address] [facility] [place] [address] Phone Care Team Providers Name Role Phone Provider, Outside Primary Care Provider Unavailable Reason for Visit Reason Onset Date Comments Question 09/22/2010 Encounter Details Date Type Department Care Team Description 09/22/2010 Telephone [facility] [place] Blanca Marti, NILSA Question [address] [facility] [address] [address] [place], [place] [address] Social History Tobacco Use Types [...] discuss concerns with Dr. Loya. He agreed. T WRITER Telephone Encounter - Blanca Marti RN - 09/22/2010 10:35 AM CST Pt calling in with frustrations Saw dr. loya who wants pt to see dr. bernstein again before coming back Dr. bernstein wants pt to be seen in center seating and mobility clinic Paperwork faxed to them and pt will call and schedule Pt having questions regarding his care of his wound after seeing dr. loya- felt his appt was so brief with dr. loya and is unsatisfied and would like to speak with nsg staff in surgery clinic Routed to surg clinic RNs Blanca Marti RN, 09/22/2010 10:35 AM T WRITER documented in this encounter Plan of Treatment Not on filedocumented as of this encounter Visit Diagnoses Not on filedocumented in this encounter Care Teams Vb Developer Relationship Specialty Start Date End Date Provider, Outside PCP - General 03/13/09 10/22/18 [place] [address] documented as of this encounter
--- OUTSIDE RECORDS SUMMARY | 2022-04-11 09:01 | XMS_ITS | Encounter Summary ---
:1955 Author Organization [facility] Address [address] [place] [address] Phone Care Team Providers Name Role Phone Provider, Outside Primary Care Provider Unavailable Reason for Visit Reason Onset Date Comments Supplies 09/17/2010 Encounter Details Date Type Department Care Team Description 09/17/2010 Telephone [facility] [place] Clinic Alka Jade RN Supplies [address] [place] [address] [place], [place] [address] Social History Tobacco Use Types [...] for supply list to be faxed to [facility] Shwetha Martin @ [phone]. Pt was seen today by Dr Tavarez and wet to dry dressing was ordered. Pt has a f/u appt scheduled on 09/24/[address] Tavarez. FRAME OPERATOR Telephone Encounter - Alka Jade RN - [...] Provider Comment: Expects Return Call at: pt [phone] FRAME OPERATOR documented in this encounter Plan of Treatment Not on filedocumented as of this encounter Visit Diagnoses Not on filedocumented in this encounter Care Teams Diver'S Tender Relationship Specialty Start Date End Date Provider, Outside PCP - General 03/13/09 10/22/18 [place] [address] documented as of this encounter
--- OUTSIDE RECORDS SUMMARY | 2022-04-11 09:01 | XMS_ITS | Encounter Summary ---
:1955 Author Organization [facility] Address [address] [place] [address] Phone Care Team Providers Name Role Phone Provider, Outside Primary Care Provider Unavailable Reason for Visit Reason Onset Date Comments Call Back 08/30/2010 Encounter Details Date Type Department Care Team Description 08/30/2010 Telephone [facility] Multispecialty Varsah Knight RN Call Back [address], [address] Multispecialty Clinic [place], [place] [address] [phone] [place] [address] (Wo rk) Social History Tobacco Use Types Packs/Day Years Used Date Smoking Tobacco: Never Alcohol Use Standard Drinks/Week Comments Yes 3.3 (1 standard drink = 0.6 oz pure alco hol) Sex Assigned at Date Recorded Not on file documented as of this encounter Miscellaneous Notes Telephone Encounter - Varsha Knight RN - 08/30/2010 4:23 PM PIPE ORGAN MECHANIC Spoke with patient & let him know that Blanca Ziegler was working on this (see her telephone encounter from earlier today). Pt states he is using Duoderm for this pressure sore but thinks it may need other intervention. Let him know our office would be in touch soon regarding this appt. 08/31/10 830 AM. I called and talked to Khanh ([phone]) he is a Dr Frances Quadriplegia patient and he does have a open sore on his bottom, he did call scheduling at [facility] ([phone])and could not get in to see Dr Frances in her PM&R Clinic until September. I informed Khanh that I will route this phone message to Dr Frances plus I will page her to try to talk to her about Khanh. Blanca Ziegler RN ORGAN MECHANIC documented in this encounter Plan of Treatment Not on filedocumented as of this encounter Visit Diagnoses Not on filedocumented in this encounter Care Teams Pest Control Chemical Technician Relationship Specialty Start Date End Date Provider, Outside PCP - General 03/13/09 10/22/18 [place] [address] documented as of this encounter
--- OUTSIDE RECORDS SUMMARY | 2022-04-11 09:01 | XMS_ITS | Encounter Summary ---
:1955 Author Organization [facility] Address [address] [place] [address] Phone Care Team Providers Name Role Phone Provider, Outside Primary Care Provider Unavailable Reason for Referral Consult/Test/Treat (Routine) - Closed Specialty Diagnoses / Procedures Referred By Contact Refer red To Contact Physical Therapy Diagnoses Decubitus ulcer Sameera Frances MD [address] Mail Code [address] [place], [place] [address] Referral ID Status Reason Start Date Expiration Date Visits Requ ested Visits Authorized [id number] Closed 01/17/2011 01/18/2012 1 1 Reason for Visit Reason Comments Neurologic Problem Encounter Details Date Type Department Care Team Description 01/17/2011 Office Visit [facility] [place] Med/Rehab Sameera Frances D ecubitus ulcer Clinic (Primary Dx) [address] Mail Code [address] [place], [place] [address] [place], [place] [phone] (Wo rk) Social History Tobacco Use Types [...] site documented in this encounter Care Teams Edge Sawyer Relationship Specialty Start Date End Date Provider, Outside PCP - General 03/13/09 10/22/18 [place] [address] documented as of this encounter
--- OUTSIDE RECORDS SUMMARY | 2022-04-11 09:02 | XMS_ITS | Encounter Summary ---
:1955 Author Organization [facility] Address [address] [facility] [place] [address] Phone Care Team Providers Name Role Phone Provider, Outside Primary Care Provider Unavailable Reason for Visit Reason Comments Follow-up 13 months follow up visit [facility] Dr Frances HFA Monday PM&R Clinic for DX of C7 Spinal Cord Injury Encounter Details Date Type Department Care Team Description 04/20/2010 Office Visit [facility] Neuromuscular Sameera Frances Don plegia () Clinic MD [place] (Primary Dx) [address], [address] [place] [address] Mail Code [address] [place], [place] [address] [place], [place] [phone] Social History Tobacco Use Types Packs/Day Years [...] Frances for: 1) Wheelchair repair/s. Faxed to [facility] ([phone]) Referral to [facility]) Formal Wheelchair and wheeled mobility clinic faxedto scheduling to call Micheal to get scheduled ([phone]) Blanca Ziegler RN documented in this encounter Progress Notes Sameera Frances MD - 05/13/2010 3:35 PM CDT [facility] [address] [facility], [address] [place] [address] (fax) MEDREC#: [id number] PATIENT: MICHEAL FLETCHER : 1955 DATE: 04/20/2010 NEUROMUSCULAR PHYSICAL MEDICINE NOTE HISTORY OF PRESENT ILLNESS: Micheal Fletcher is a 55-year-old gentleman with a C7 [place] Spinal [employer] B spinal cord [...] be broken as far the spokes. The bcaz-or-kqiy stability is poor. The back of the [...] his wheelchair and recommended he see the [facility] for a mapping of his buttocks and a more complete evaluation of his wheelchair. I do not think we need any changes in medications for spasticity. Sameera Frances MD Staff Physician Physical Medicine and Rehabilitation Service Received in Deputy District Customs Director: 05/11/2010 20:55 M: 05/13/2010 10:09 ms CLR/ms Voice ID: [id number] Document ID: [id number] cc:[place] [address] Sameera Frances MD - 04/20/2010 11:01 AM [...] unspecified documented in this encounter Care Teams Bakery Manager Relationship Specialty Start Date End Date Provider, Outside PCP - General 03/13/09 10/22/18 [place] [address] documented as of this encounter
--- OUTSIDE RECORDS SUMMARY | 2022-04-11 09:02 | XMS_ITS | Encounter Summary ---
:1955 Author Organization [facility] Address [address] [place] [address] Phone Care Team Providers Name Role Phone Unavailable Primary Care Provider Unavailable Encounter Details Date Type Department Care Team Description 10/22/2007 Abstract HFA Multispecialty Abstract, Provider [address] [place], [place] [address] Social History Tobacco Use Types [...]
--- OUTSIDE RECORDS SUMMARY | 2022-04-11 09:02 | XMS_ITS | Encounter Summary ---
:1955 Author Organization [facility] Address [address] [place] [address] Phone Care Team Providers Name Role Phone [...] on filedocumented in this encounter Care Teams Furniture Rental Consultant Relationship Specialty Start Date End Date Provider, Outside PCP - General 03/13/09 10/22/18 [place] [address] documented as of this encounter
--- OUTSIDE RECORDS SUMMARY | 2022-04-11 09:02 | XMS_ITS | Encounter Summary ---
:1955 Author Organization [facility] Address [address] [place] [address] Phone Care Team Providers Name Role Phone Unavailable Primary Care Provider Unavailable Reason for Visit Reason Comments Follow-up Encounter Details Date Type Department Care Team Description 07/31/2007 [place] [facility]hab Sameera Frances Q uadriplegia (); Clinic Neurogenic Bowel; [address] [facility] [address] Mail Code [address] [place], [place] [address] [place], [place] [phone] (Wo rk) Social History Tobacco Use Types Packs/Day Years Used Date Smoking Tobacco: Never Alcohol Use Standard Drinks/Week Comments Yes 3.3 (1 standard drink = 0.6 oz pure alco hol) Sex Assigned at Date Recorded Not on file documented as of this encounter Last Filed Vital Signs Vital Sign Reading Time Taken Comments Blood Pressure 91/64 07/31/2007 3:21 PM NEW HOME SALES CONSULTANT Pulse 81 07/31/2007 3:21 PM NEW HOME SALES CONSULTANT Temperature - - Respiratory Rate - - Oxygen Saturation - - Inhaled Oxygen Concentration - - Weight - - Height 6 cm (2.36) 07/31/2007 3:21 PM NEW HOME SALES CONSULTANT Body Mass Index - - documented in this encounter Progress Notes Sameera Frances MD - 08/15/2007 11:05 [place] [address] MEDREC#: [id number] PATIENT: MICHEAL RENE : 1955 DATE: 07/31/2007 PHYSICAL MEDICINE AND REHABILITATION NEUROLOGY CLINIC ADDENDUM: Again, under recommendations, I did talk to him that now he is 49 that he really should have an community specialist who can coordinate his prophylactic care while he ages, in particular heart disease and prostate concerns. He is not interested and would just prefer to treat things as they come up, and declined my offers to arrange him with a Primary Care physician. Sameera Frances MD Staff Physician Physical Medicine and Rehabilitation Service Received in Guide Changer: 08/02/2007 15:01:18 (M: 08/06/2007 11:31:55/dd:st) CLR/dd:st Voice ID: [id number] Document ID: [id number] cc: HOME SALES CONSULTANT Sameera Frances MD - 08/15/2007 11:05 [place] [address] [facility]#: [id number] PATIENT: MICHEAL RENE : 1955 DATE: 07/31/2007 [...] father and a grandfather. He lives in [place] and just recently he has started to [...] He has just received a new manual [employer] wheelchair with a J-cushion and he is [...] he likes because of stability. ASSESSMENT: C7 [place] Spinal [employer] (AUDREY) A chronic spinal [...] Physical Medicine and Rehabilitation Service Received in Guide Changer: 08/02/2007 14:58:39 (M: 08/06/2007 11:12:53/dd:st) CLR/dd:st Voice ID: [id number] Document ID: [id number] cc: HOME SALES CONSULTANT Sameera Frances MD - 08/02/2007 3:01 PM CST HPI ROS Physical Exam See my dictation for today. HOME SALES CONSULTANT documented in this encounter Plan of Treatment Not on filedocumented as of this encounter Visit Diagnoses Diagnosis Quadriplegia () Quadriplegia, unspecified Neurogenic bowel Spastic Abnormal involuntary movements documented in this encounter
--- OUTSIDE RECORDS SUMMARY | 2022-04-11 09:02 | XMS_ITS | Encounter Summary ---
:1955 Author Organization [facility] Address [address] [place] [address] Phone Care Team Providers Name Role Phone [...]
--- OUTSIDE RECORDS SUMMARY | 2022-04-11 09:02 | XMS_ITS | Encounter Summary ---
:1955 [address] [facility] Address [address] [place] [address] Phone Care Team Providers Name Role Phone Provider, Outside Primary Care Provider Unavailable Reason for Visit Reason Onset Date Comments Refill Request 04/30/2010 Encounter Details Date Type Department Care Team Description 04/30/2010 Refill HFA Urology Omar Savage MD Refill Request [address] [facility], [address] Research Only [place], [place] [address] Social History Tobacco Use Types Packs/Day Years Used Date Smoking Tobacco: Never Alcohol Use Standard Drinks/Week Comments Yes 3.3 (1 standard drink = 0.6 oz pure alco hol) Sex Assigned at Date Recorded Not on file documented as of this encounter Miscellaneous Notes Telephone Encounter - Ofelia Lopez RN - 04/30/2010 4:34 PM CDT Refilled pt's Nitrofurantoin per Dr. Savage Sept note per faxed request. documented in this encounter Plan of Treatment Not on filedocumented as of this encounter Visit Diagnoses Diagnosis Neurogenic bladder - Primary Neurogenic bladder, NOS documented in this encounter Care Teams Athletics Teacher Relationship Specialty Start Date End Date Provider, Outside PCP - General 03/13/09 10/22/18 [place] [address] documented as of this encounter
--- OUTSIDE RECORDS SUMMARY | 2022-04-11 09:02 | XMS_ITS | Encounter Summary ---
:1955 Author Organization [facility] Address [address] [place] [address] Phone Care Team Providers Name Role Phone Provider, Outside Primary Care Provider Unavailable Reason for Visit Reason Onset Date Comments Refill Request 10/21/2009 Encounter Details Date Type Department Care Team Description 10/21/2009 Refill HFA Urology Omar Savage MD Refill Request [address] [facility], [address] Research Only [place], [place] [address] Social History Tobacco Use Types [...] NOS documented in this encounter Care Teams Waste Disposal Attendant Relationship Specialty Start Date End Date Provider, Outside PCP - General 03/13/09 10/22/18 [place] [address] documented as of this encounter
--- OUTSIDE RECORDS SUMMARY | 2022-04-11 09:02 | XMS_ITS | Encounter Summary ---
:1955 Author Organization [facility] Address [address] [place] [address] Phone Care Team Providers Name Role Phone Pcp, No Primary Care Provider Unavailable Encounter Details Date Type Department Care Team Description 01/29/2008 Letters(Tab) [facility] Omar Savage MD [facility] [address] [place] [address] P5.620 [place], [place] [address] Social History Tobacco Use Types Packs/Day Years Used Date Smoking Tobacco: Never Alcohol Use Standard Drinks/Week Comments Yes 3.3 (1 standard drink = 0.6 oz pure alco hol) Sex Assigned at Date Recorded Not on file documented as of this encounter Progress Notes Omar Savage MD - 01/30/2008 7:23 AM CDT [facility] [address] [place] [address] 01/29/2008 TO: Micheal Rene [address] [place] [address] RE: MICHEAL RENE MR#: [id number] Dear Mr. Rene: From your recent Urology Clinic visit, your laboratory values remain stable. Your serum creatinine remains low because of your low body mass. It is 0.29. Your prostate-specific antigen blood test is 2.38, with normal up to 4. We await your return visit in one year. Best wishes. Sincerely, Omar Savage MD Received in Dba Developer: 01/29/2008 16:28:05 (M: 01/30/2008 02:45:25 jlb) CS/golden Voice ID: [id number] Document ID: [id number] cc: Micheal Rene documented in this encounter Plan of Treatment Not on filedocumented as of this encounter Visit Diagnoses Not on filedocumented in this encounter Care Teams Plaster Caster Relationship Specialty Start Date End Date Pcp, No PCP - General 01/24/08 03/12/09 [facility] [place] [address] documented as of this encounter
--- OUTSIDE RECORDS SUMMARY | 2022-04-11 09:02 | XMS_ITS | Encounter Summary ---
:1955 Author [address] [facility] Address [address] [place] [address] Phone Care Team Providers Name Role Phone Unavailable Primary Care Provider Unavailable Reason for Visit Reason Onset Date Comments Medication Refill 10/16/2007 Encounter Details Date Type Department Care Team Description 10/16/2007 Refill HFA Urology Omar Savage MD Medication Refill [address] [facility], [address] Research Only [place], [place] [address] Social History Tobacco Use Types Packs/Day Years Used Date Smoking Tobacco: Never Alcohol Use Standard Drinks/Week Comments Yes 3.3 (1 standard drink = 0.6 oz pure alco hol) Sex Assigned at Date Recorded Not on file documented as of this encounter Miscellaneous Notes Telephone Encounter - Danna Bautista RN - 10/16/2007 11:06 AM CDT Patient will schedule yearly follow up with Dr. Savage. documented in this encounter Plan of Treatment Not on filedocumented as of this encounter Visit Diagnoses Not on filedocumented in this encounter
--- OUTSIDE RECORDS SUMMARY | 2022-04-11 09:02 | XMS_ITS | Encounter Summary ---
:1955 Author Organization [facility] Address [address] [place] [address] Phone Care Team Providers Name Role Phone Provider, Outside Primary Care Provider Unavailable Reason for Visit Reason Comments Follow-up Encounter Details Date Type Department Care Team Description 04/01/2010 Office Visit HFA Urology Omar Savage, Neurogenic bladder; [address] [place] [address] Screening for prostate cancer [address] [place], [place] [address] Social History Tobacco Use Types Packs/Day Years Used Date Smoking Tobacco: Never Alcohol Use Standard Drinks/Week Comments Yes 3.3 (1 standard drink = 0.6 oz pure alco hol) Sex Assigned at Date Recorded Not on file documented as of this encounter Patient Instructions Patient InstructionsDanna Bautista RN - 04/01/2010 2:34 PM CDT Please call us to schedule your Renal Ultrasound. documented in this encounter Progress Notes Omar Savage MD - 04/05/2010 1:22 PM CDT [facility] [address] [facility], [address] [place] [address] (fax) [facility]#: [id number] PATIENT: MICHEAL LFETCHER : 1955 DATE: 04/01/2010 UROLOGY NOTE The patient is a 55-year-old male with spinal cord injury who is seen for followup of his neurogenic bladder. The patient performs intermittent catheterization and is on chronic Macrobid therapy. He has had previous chest x-rays, which show no evidence of pulmonary fibrosis. His last film was 2005. He has also undergone a renal ultrasound at that time, and this will be repeated this year. This year has been unremarkable for the patient. No evidence of urosepsis. He undergoes examination of his penis and scrotum which is normal. Prostate examination is not performed. However, a prostate specific antigen blood test will be obtained. He will be seen routinely in 1 year's time. He will schedule his repeat ultrasound within the next month. Omar Savage MD Staff Physician Surgery Service Received in Car Repossessor: 04/02/2010 14:55 M: 04/02/2010 22:48 kn CS/kn Voice ID: [id number] Document ID: [id number] Omar Savage MD - 04/02/2010 2:55 PM CDT This office note has been dictated. documented in this encounter Plan of Treatment Not on filedocumented as of this encounter Procedures Procedure Name Priority Date/Time Associated Diagnosis Comme nts PSA SCREEN Routine 04/01/2010 3:08 PM Screening for Results for this (PROSTATE SPEC AGN) CDT prostate cancer proce dure are in the results section. documented in this encounter Results ULT KIDNEYS COMPLETE (05/13/2010 2:34 PM CDT) Anatomical Region Laterality Modality Abdomen Ultrasound Specimen (Source) Anatomical Collection Method Collection Time Re ceived Time Location / / Volume Laterality 05/13/2010 2:34 PM CDT Impressions 05/13/2010 3:56 PM CDT Impression: Normal renal ultrasound. Reading Radiologist: Walter Arcos V Reading Resident: Vijay Puckett 05/13/2010 3:56 PM CDT History: Neurogenic bladder [...] Resident: Vijay Puckett Omar Savage MD ULT PSA SCREEN (PROSTATE SPEC AGN) (04/01/2010 3:08 PM CDT) P athologist Signature PSA Screen 1.25 0.00 - 4.00 HFA LAB NG/ML Specimen Anatomical Collection Method Collection Time Receive d Time (Source) Location / / Volume Laterality Blood 04/01/2010 3:08 PM 0 4:01 CDT PM CDT Comment: BLOOD Omar Savage MD LABORATORY Performing Organization Address City/State/ZIP Code Phon e Number HFA LAB documented in this encounter Visit Diagnoses Diagnosis Neurogenic bladder Neurogenic bladder, NOS Screening for prostate cancer Special screening for malignant neoplasm of prostate Neurogenic bladder Neurogenic bladder, NOS documented in this encounter Care Teams Magnetic Resonance Imaging Director Relationship Specialty Start Date End Date Provider, Outside PCP - General 03/13/09 10/22/18 [place] [address] documented as of this encounter
--- OUTSIDE RECORDS SUMMARY | 2022-04-11 09:02 | XMS_ITS | Encounter Summary ---
:1955 Author Organization [facility] Address [address] [place] [address] Phone Care Team Providers Name Role Phone [...] 09/23/2010 12:00 AM CSTAssociated Order(s): INFORMATION DISCLOSURE R TICKET WORKER documented in this encounter Plan of Treatment Not on filedocumented as of this encounter Procedures Procedure Name Priority Date/Time Associated Comments Diagnosis INFORMATION 09/23/2010 5:22 PM Results f or this DISCLOSURE RIDER TICKET WORKER procedure are i n the results section. documented in this encounter Results INFORMATION DISCLOSURE (09/23/2010 5:22 PM RIDER TICKET WORKER) Narrative 09/23/2010 5:22 PM RIDER TICKET WORKER Procedure Note Unknown, Provider - 09/23/2010 12:00 AM CST Provider Unknown SCANNED CONSENTS documented in this encounter Visit Diagnoses Not on filedocumented in this encounter Care Teams Bottom Bleacher Relationship Specialty Start Date End Date Provider, Outside PCP - General 03/13/09 10/22/18 [place] [address] documented as of this encounter
--- OUTSIDE RECORDS SUMMARY | 2022-04-11 09:02 | XMS_ITS | Encounter Summary ---
:1955 Author Organization [facility] Address [address] [place] [address] [place] [address] Phone Care Team Providers Name Role Phone Provider, Outside Primary Care Provider Unavailable Encounter Details Date Type Department Care Team Description 04/07/2010 Telephone HFA Urology Omar Savage MD [address] [facility], [address] Research Only [place], [place] [address] Social History Tobacco Use Types [...] BALL AT 11:30. PLEASE CALL HIM AT [phone] Pt. Name: Khanh Rene : 1955 (home) Insurance: PCP: Outside Provider Comment: Expects Return Call at: documented in this encounter Plan of Treatment Not on filedocumented as of this encounter Visit Diagnoses Not on filedocumented in this encounter Care Teams It Account Manager Relationship Specialty Start Date End Date Provider, Outside PCP - General 03/13/09 10/22/18 [place] [address] documented as of this encounter
--- OUTSIDE RECORDS SUMMARY | 2022-04-11 09:02 | XMS_ITS | Encounter Summary ---
:1955 Author Organization [facility] Address [address] [place] [address] Phone Care Team Providers Name Role Phone Pcp, No Primary Care Provider Unavailable Reason for Visit Reason Comments Follow-up med check-in Encounter Details Date Type Department Care Team Description 01/24/2008 Office Visit HFA Urology Omar Savage, Neurogenic Bladder [address] [facility] (Primary Dx) [address] [place], [place] [address] Social History Tobacco Use Types Packs/Day Years Used Date Smoking Tobacco: Never Alcohol Use Standard Drinks/Week Comments Yes 3.3 (1 standard drink = 0.6 oz pure alco hol) Sex Assigned at Date Recorded Not on file documented as of this encounter Progress Notes Omar Savage MD - 01/29/2008 2:[address] [facility] [address] [facility], [address] [place] [address] (fax) MEDREC#: [id number] PATIENT: MICHEAL RENE : 1955 DATE: 01/24/2008 [...] this examination. Omar Savage MD Received in Merchandising Director: 01/24/2008 17:47:53 (M: 01/29/2008 08:19:42 aml) CS/aml Voice ID: [id number] Document ID: [id number] cc: Omar Savage MD - 01/24/2008 5:48 [...] eGFR, >60 mL/min/1.73 HFA LAB Non- m2 Swiss Specimen Anatomical Collection Method Collection Time Receive d Time (Source) Location / / Volume Laterality Blood 01/24/2008 4:05 PM 8 4:29 CDT PM CDT Omar Savage MD LABORATORY Performing Organization Address City/[facility]/ZIP Code Phon e Number HFA LAB GLOMERULAR FILTRATION RATE B (01/24/2008 4:05 PM CDT) P athologist Signature eGFR, >60 mL/min/1.73 HFA LAB Swiss m2 Comment: IDMS TRACEABLE CALIBRATION EFFECTIVE 08/16/2007 Specimen Anatomical Collection Method Collection Time Receive d Time (Source) Location / / Volume Laterality Blood 01/24/2008 4:05 PM 8 4:29 CDT PM CDT Omar Savage MD LABORATORY Performing Organization Address City/[facility]/ZIP Code Phon e Number HFA LAB (ABNORMAL) [...] NOS documented in this encounter Care Teams Reimbursement Counselor Relationship Specialty Start Date End Date Pcp, No PCP - General 01/24/08 03/12/09 [facility] [place] [address] documented as of this encounter
--- OUTSIDE RECORDS SUMMARY | 2022-04-11 09:02 | XMS_ITS | Encounter Summary ---
:1955 Author Organization [facility] Address [address] [facility] [place] [address] Phone Care Team Providers Name Role Phone Provider, Outside Primary Care Provider Unavailable Reason for Visit Reason Comments Follow-up 19 months foolow up visit [facility] Dr Yvrose Mukherjee [facility] Dx C7 Spinal Cord Injury Encounter Details Date Type Department Care Team Description 03/13/2009 Office Visit HFA Neuromuscular Sameera Frances Don plegia () Clinic MD [place] (Primary Dx) [address], [address] [place] [address] Mail Code P5 [place], [place] [address] [place], [place] [phone] Social History Tobacco Use Types Packs/Day [...] visit with Dr Frances [facility] ([phone]) Rx/orders given to Micheal by Dr Frances for Wheelchair lumbar support and wheelchair repairs, bilateral arm rests, replace sling back Blanca Ziegler RN documented in this encounter Progress Notes Sameera Frances MD - 03/26/2009 10:04 AM CDT [facility] [address] [facility] [place] [address] (fax) [facility]#: [id number] PATIENT: MICHEAL FLETCHER : 1955 DATE: 03/13/2009 NEUROMUSCULAR PHYSICAL MEDICINE NOTE HISTORY OF PRESENT ILLNESS: Micheal Fletcher is a 54-year-old gentleman with a C7 [employer] (AUDREY) B spinal cord [...] that eventually led to pacemaker placement at [facility]. He said that his angiogram did not [...] discontinues that activity. He is using a [employer] wheelchair with a Joby cushion. It is [...] a slow healing coccyx ulcer at the [facility]. We have discussed whether he should go [...] that complication. Sameera Frances MD Received in Lead Die Molder: 03/20/2009 12:28:50 (M: 03/24/2009 03:22:10 golden) HOMA/jlb Voice ID: [id number] Document ID: [id number] cc: Abida Pulliam DO, [facility], [address] [place] [id number] Sameera Frances MD - 03/19/2009 6:44 PM CDT See dictation. documented in this encounter Nursing Notes 03/13/2009 8:00 AM CDT >> Blanca Ziegler RN MonMar 13, 2009 8:24 AM 19 months follow up visit with Dr Frances in Monday [facility]. DX of C7 Spinal Cord Injury, Quadriplegia, Neurogenic Bladder. B/P 87/60 pulse 105, states runs lower blood pressure. Self caths PRN during the day. Blanca Ziegler RN documented in this encounter Plan of Treatment Not on filedocumented as of this encounter Visit Diagnoses Diagnosis Quadriplegia () - Primary Quadriplegia, unspecified documented in this encounter Care Teams Dance Master Relationship Specialty Start Date End Date Provider, Outside PCP - General 03/13/09 10/22/18 [place] [address] documented as of this encounter
--- OUTSIDE RECORDS SUMMARY | 2022-04-11 09:02 | XMS_ITS | Encounter Summary ---
:1955 Author Organization [facility] Address [address] [place] [address] Phone Care Team Providers Name Role Phone Provider, Outside Primary Care Provider Unavailable Encounter Details Date Type Department Care Team Description 05/17/2010 Letters(Tab) HFA Urology Omar Savage MD [address] [place] [address], [address] Research Only [place] [address] Social History Tobacco Use Types Packs/Day Years Used Date Smoking Tobacco: Never Alcohol Use Standard Drinks/Week Comments Yes 3.3 (1 standard drink = 0.6 oz pure alco hol) Sex Assigned at Date Recorded Not on file documented as of this encounter Progress Notes Omar Savage MD - 05/18/2010 6:15 AM CDT [facility] [address] [place] [address] May 17, 2010 TO: Micheal Rene [address] [facility] [place] [address] RE:MICEHAL RENE MR#:[id number] :1955 Dear Mr. Rene: From your recent urology clinic visit, the renal ultrasound that was performed does not show any evidence of kidney abnormalities. There is no dilation, no hydronephrosis or stones noted. Best wishes. Look forward to seeing you in 1 year. Please feel free to contact me for questions. Sincerely, Omar Savage MD Staff Physician Surgery Service Received in Junk Dealer: 05/17/2010 21:18 M: 05/18/2010 03:15 javon CS/javon Voice ID: [id number] Document ID: [id number] cc:Micheal Rene [id number] [place] [address] documented in this encounter Plan of Treatment Not on filedocumented as of this encounter Visit Diagnoses Not on filedocumented in this encounter Care Teams Experimental Outboard Motors Mechanic Relationship Specialty Start Date End Date Provider, Outside PCP - General 03/13/09 10/22/18 [place] [address] documented as of this encounter
--- OUTSIDE RECORDS SUMMARY | 2022-04-11 09:02 | XMS_ITS | Encounter Summary ---
:1955 Author Organization [facility] Address [address] [place], [place] [address]. [place] [address] Phone Care Team Providers Name Role Phone Provider, Outside Primary Care Provider Unavailable Encounter Details Date Type Department Care Team Description 05/13/2010 Hospital Encounter [facility] Ultrasound Omar Savage MD [address] Research Only [address] [place], [place] [address] Social History Tobacco Use Types [...] NOS documented in this encounter Care Teams Chainman Relationship Specialty Start Date End Date Provider, Outside PCP - General 03/13/09 10/22/18 [place] [address] documented as of this encounter
--- OUTSIDE RECORDS SUMMARY | 2022-04-11 09:02 | XMS_ITS | Encounter Summary ---
:1955 Author Organization [facility] Address [address] [place], [place] [address] [address] Phone Care Team Providers Name Role Phone Unavailable Primary Care Provider Unavailable Encounter Details Date Type Department Care Team Description 09/02/2005 Orders Only [facility] Ultrasound [address] [place], [place] [address] Social History Tobacco Use Types Packs/Day Years Used Date Smoking Tobacco: Never Assessed Sex Assigned at Date Recorded Not on file documented as of this encounter Plan of Treatment Not on filedocumented as of this encounter Procedures Procedure Name Priority Date/Time Associated Diagnosis Comme nts ULT KIDNEYS Routine 09/02/2005 3:16 PM Results f or this COMPLETE SPEECH AND DRAMA TEACHER procedure are i n the results section. documented in this encounter Results ULT KIDNEY COMPLETE (09/02/2005 3:16 PM SPEECH AND DRAMA TEACHER) Anatomical Region Laterality Modality Abdomen Ultrasound Specimen (Source) Anatomical Collection Method Collection Time Re ceived Time Location / / Volume Laterality 09/02/2005 3:16 PM SPEECH AND DRAMA TEACHER Impressions 09/05/2005 9:17 AM SPEECH AND DRAMA TEACHER : ??NO FOCAL MASS, STONE, OR HYDRONEPHROSIS IDENTIFIED WITHIN EITHER KIDNEY. I have personally reviewed the image(s) and initial interpretation, and I agree with the findings. . . Read Date: Sep 02 2005 ??4:12P BENEDICT AU M.D. - STAFF RADIOLOGIST FABIOLA AVALOS M.D. - RESIDENT RADIOLOGIST RELEASE RESULTS: (Y) ASI END: END RESULT: DATE DICTATED: () CUSTOMER CARE SPECIALIST: ( ) IMPRESSION Narrative 09/05/2005 9:17 AM SPEECH AND DRAMA TEACHER FABIOLA AVALOS M.D. - RESIDENT RADIOLOGIST Final Report EXAM: ?? RENAL US: LIME KIDNEYS ?? 04/2006 15:16 HISTORY: ??Neurogenic bladder. [...] RESIDENT RADIOLOGIST Final Report EXAM: RENAL US: LIME KIDNEYS 15:16 HISTORY: Neurogenic bladder. COMPARISON: 10/12/01. [...] ASI END: END RESULT: DATE DICTATED: () CUSTOMER CARE SPECIALIST: ( ) IMPRESSION Omar Savage MD ULT documented in this encounter Visit Diagnoses Not on filedocumented in this encounter
--- OUTSIDE RECORDS SUMMARY | 2022-04-11 09:02 | XMS_ITS | Encounter Summary ---
:1955 Author Organization [facility] Address [address] [place] [address] Phone Care Team Providers Name Role Phone Unavailable Primary Care Provider Unavailable Encounter Details Date Type Department Care Team Description 09/29/2006 Letters(Tab) [facility] Urology Clinic Omar Savage MD [facility] [address] [facility] [address] [place], [place] [address] Social History Tobacco Use Types Packs/Day Years Used Date Smoking Tobacco: Never Assessed Sex Assigned at Date Recorded Not on file documented as of this encounter Progress Notes Omar Savage MD - 09/29/2006 4:34 PM CST [facility] [address] [place] [address] 09/29/2006 TO: Micheal Rene [address] [place], [place] [address] RE: MICHEAL RENE MR#: [id number] Dear Mr. Rene: From your recent Urology Clinic visit your prostate specific antigen value remains in a normal level and is 2.87. Best wishes and please feel free to contact us for questions. Sincerely, Omar Savage MD Received in Organ Fixer: 09/29/2006 12:33:54 (M: 09/29/2006 13:29:47 kms) CS/kms Voice ID: [id number] Document ID: [id number] cc: Micheal Rene [id number] [facility] [place] [address] INVESTIGATOR documented in this encounter Plan of Treatment Not on filedocumented as of this encounter Visit Diagnoses Not on filedocumented in this encounter
--- OUTSIDE RECORDS SUMMARY | 2022-04-11 09:02 | XMS_ITS | Encounter Summary ---
:1955 Author Organization [facility] Address [address] [place] [address] Phone Care Team Providers Name Role Phone Pcp, No Primary Care Provider Unavailable Reason for Visit Reason Onset Date Comments Refill Request 01/28/2008 Encounter Details Date Type Department Care Team Description 01/28/2008 Refill HFA Urology Omar Savage MD Refill Request [address] [facility], [address] Research [place], [place] [address] Social History Tobacco Use Types [...] on filedocumented in this encounter Care Teams Treatment Supervisor Relationship Specialty Start Date End Date Pcp, No PCP - General 01/24/08 03/12/09 [facility] [place] [address] documented as of this encounter
--- OUTSIDE RECORDS SUMMARY | 2022-04-11 09:02 | XMS_ITS | Encounter Summary ---
:1955 Author Organization [facility] Address [address] [place] [address] Phone Care Team Providers Name Role Phone Pcp, No Primary Care Provider Unavailable Reason for Visit Reason Onset Date Comments Question 02/20/2009 Called with question Encounter Details Date Type Department Care Team Description 02/20/2009 Telephone HFA Physical Medicin e Reece Ziegler, Question (Called with [facility] [address], [address] RN question) [facility] [place] [address] Clinic [phone] [place] [address] Social History Tobacco Use Types Packs/Day Years [...] Created: MonFeb 19, 2009 3:38 PM Regarding: [facility] PMR TELEPHONE MESSAGE Taken by: Natalie Painting , 02/19/2009 3:38 PM Direct to: Problem: questions Pt. Name: Khanh Rene : 1955 (home) Insurance: PCP: No PCP Comment: Expects Return Call at: [phone] Monday02/20/09 at 930am, returned Khanh's phone call, had to leave phone message, Reece Ziegler RN 02/26/09 again returned Khanh's phone call woth no answer. Khanh is scheduled to see Dr Frances on Monday03/13/[address] [facility]. I has also given Dr Frances phone message from Khanh on his question on medical supply.Reece Ziegler RN documented in this encounter Plan of Treatment Not on filedocumented as of this encounter Visit Diagnoses Not on filedocumented in this encounter Care Teams Music Sound Light Technician Relationship Specialty Start Date End Date Pcp, No PCP - General 01/24/08 03/12/09 [facility] [place] [address] documented as of this encounter
--- OUTSIDE RECORDS SUMMARY | 2022-04-11 09:02 | XMS_ITS | Encounter Summary ---
:1955 Author Organization [facility] Address [address] [place] [address] Phone Care Team Providers Name Role Phone Pcp, No Primary Care Provider Unavailable Reason for Visit Reason Onset Date Comments Refill Request 09/02/2008 Encounter Details Date Type Department Care Team Description 09/02/2008 Refill HFA Urology Omar Savage MD Refill Request [address] [facility], [address] Research [place], [place] [address] Social History Tobacco Use Types Packs/Day Years Used Date Smoking Tobacco: Never Alcohol Use Standard Drinks/Week Comments Yes 3.3 (1 standard drink = 0.6 oz pure alco hol) Sex Assigned at Date Recorded Not on file documented as of this encounter Plan of Treatment Not on filedocumented as of this encounter Visit Diagnoses Not on filedocumented in this encounter Care Teams Supply Specialist Relationship Specialty Start Date End Date Pcp, No PCP - General 01/24/08 03/12/09 [facility] [place] [address] documented as of this encounter
--- OUTSIDE RECORDS SUMMARY | 2022-04-11 09:02 | XMS_ITS | Encounter Summary ---
:1955 Author Organization [facility] Address [address] [place] [address] Phone Care Team Providers Name Role Phone Pcp, No Primary Care Provider Unavailable Reason for Visit Reason Comments Follow-up neurogenic bladder Encounter Details Date Type Department Care Team Description 01/29/2009 Office Visit HFA Urology Omar Savage, Neurogenic Bladder [address] [place] [address] (Primary Dx) [address] Research Only [place], [place] [address] Social History Tobacco Use Types Packs/Day Years Used Date Smoking Tobacco: Never Alcohol Use Standard Drinks/Week Comments Yes 3.3 (1 standard drink = 0.6 oz pure alco hol) Sex Assigned at Date Recorded Not on file documented as of this encounter Progress Notes Omar Savage MD - 02/02/2009 12:28 PM CDT [facility] [address] [facility], [address] [place] [address] (fax) MEDREC#: [id number] PATIENT: MICHEAL FLETCHER : 1955 DATE: 01/29/2009 UROLOGY NOTE The patient is a 53-year-old male with a history of multiple sclerosis, who is in a wheelchair. The patient states two significant events with his medical history over the past year. These include placement of a cardiac pacemaker for low flow state and fainting spells, and secondly, within the last month, he had a lower extremity fracture after falling from his wheelchair on an accidental basis, for which he required pinning. The pinning was performed at the [facility]. His pacemaker was placed at the [facility]. I will request laboratory values from both institutions to add to our database. The patient states that over the past two weeks, she may have experienced some symptoms of a urinary tract infection, and antibiotics were prescribed. He is generally on Macrobid 100 mg every other day. The patient denies any other admissions for urosepsis or difficulties. He underwent imaging of his upper tract by means of renal ultrasound in 2005 and a KUB film performed at that time. PHYSICAL EXAMINATION: The patient's penis and scrotum otherwise appear normal. There is no testicular tenderness. He has no difficulty performing intermittent catheterization. Prostate examination is not performed. At the present time, we will see the patient in one year. We will request his outside laboratory values, and in one year plan on his ultrasound, KUB film, and chest x-ray. This visit was primarily that of counseling greater than 50% of the time, requiring 20 minutes. Omar Savage MD Received in Reconciliation Accountant: 01/29/2009 18:41:26 (M: 02/02/2009 08:06:12 sharmila) CS/sjv Voice ID: [id number] Document ID: [id number] cc: Omar Savage MD - 01/29/2009 6:41 PM CDT This office note has been dictated. Ofelia Lopez RN - 01/29/2009 1:39 PM CDT 53 yo male with neurogenic bladder. Self caths has not had infection. States that recently UC was borderliine and the MD decided to treat him. documented in this encounter Plan of Treatment Not on filedocumented as of this encounter Visit Diagnoses Diagnosis Neurogenic bladder - Primary Neurogenic bladder, NOS documented in this encounter Care Teams Dovetailer Relationship Specialty Start Date End Date Pcp, No PCP - General 01/24/08 03/12/09 [place] [address] documented as of this encounter
--- OUTSIDE RECORDS SUMMARY | 2022-04-11 09:02 | XMS_ITS | Encounter Summary ---
:1955 Author Organization [facility] Address [address] [place] [address] Phone Care Team Providers Name Role Phone Pcp, No Primary Care Provider Unavailable Reason for Visit Reason Onset Date Comments Durable Medical Equipment 02/17/2009 Question about reordering equipment Check/Request Encounter Details Date Type Department Care Team Description 02/17/2009 Telephone HFA Physical Medicin e Reece Ziegler, Durable Medical [address] [facility], [facility] RN Equipment Check/Request M50 Multispecialty (Question about [place], [place] [address] 4 Clinic reordering equipment) [phone] [place] [address] Social History Tobacco Use Types Packs/Day Years [...] refill of dourdrem?? Spelling? Pharmacy # is [phone] Pt. Name: Khanh Rene : 1955 (home) Insurance: PCP: No PCP Comment: Expects Return Call at: [phone] or cell [phone] Monday02/17/09 Copy of this phone message given to Dr Frances and she will call patient to check on equipment order needed. Reece Ziegler RN documented in this encounter Plan of Treatment Not on filedocumented as of this encounter Visit Diagnoses Not on filedocumented in this encounter Care Teams Epic Analyst Relationship Specialty Start Date End Date Pcp, No PCP - General 01/24/08 03/12/09 [facility] [place] [place] [address] documented as of this encounter
--- OUTSIDE RECORDS SUMMARY | 2022-04-11 09:02 | XMS_ITS | Encounter Summary ---
:1955 Author Organization [facility] Address [address] [place] [address] Phone Care Team Providers Name Role Phone Unavailable Primary Care Provider Unavailable Encounter Details Date Type Department Care Team Description 09/02/2005 Orders Only [facility] [place] [address] [place], [place] [address] Social History Tobacco Use Types Packs/Day Years Used Date Smoking Tobacco: Never Assessed Sex Assigned at Date Recorded Not on file documented as of this encounter Plan of Treatment Not on filedocumented as of this encounter Procedures Procedure Name Priority Date/Time Associated Diagnosis Comme nts ULT KIDNEYS Routine 09/02/2005 3:16 PM Results f or this COMPLETE FOREMAN/PROJECT MANAGER procedure are i n the results section. XR CHEST 2 VIEWS PA Routine 09/02/2005 3:03 PM Re sults for this + LAT* FOREMAN/PROJECT MANAGER procedure are i n the results section. documented in this encounter Results ULT KIDNEY COMPLETE (09/02/2005 3:16 PM FOREMAN/PROJECT MANAGER) Anatomical Region Laterality Modality Abdomen Ultrasound Specimen (Source) Anatomical Collection Method Collection Time Re ceived Time Location / / Volume Laterality 09/02/2005 3:16 PM FOREMAN/PROJECT MANAGER Impressions 09/05/2005 9:17 AM FOREMAN/PROJECT MANAGER : ??NO FOCAL MASS, STONE, OR HYDRONEPHROSIS IDENTIFIED WITHIN EITHER KIDNEY. I have personally reviewed the image(s) and initial interpretation, and I agree with the findings. . . Read Date: Sep 02 2005 ??4:12P BENEDICT AU M.D. - STAFF RADIOLOGIST FABIOLA AVALOS M.D. - RESIDENT RADIOLOGIST RELEASE RESULTS: (Y) ASI END: END RESULT: DATE DICTATED: () GROCERY STORE BAGGER: ( ) IMPRESSION Narrative 09/05/2005 9:17 AM FOREMAN/PROJECT MANAGER FABIOLA AVALOS M.D. - RESIDENT RADIOLOGIST Final Report EXAM: ?? RENAL US: JAMUL KIDNEYS ?? 04/2006 15:16 HISTORY: ??Neurogenic bladder. [...] RESIDENT RADIOLOGIST Final Report EXAM: RENAL US: JAMUL KIDNEYS 15:16 HISTORY: Neurogenic bladder. COMPARISON: 10/12/01. [...] ASI END: END RESULT: DATE DICTATED: () GROCERY STORE BAGGER: ( ) IMPRESSION Omar Savage MD ULT XR CHEST 2 VIEWS PA & LAT (09/02/2005 3:03 PM FOREMAN/PROJECT MANAGER) Anatomical Region Laterality Modality Chest Digital Radiography Specimen (Source) Anatomical Collection Method Collection Time Re ceived Time Location / / Volume Laterality 09/02/2005 3:03 PM FOREMAN/PROJECT MANAGER Impressions 09/02/2005 3:58 PM FOREMAN/PROJECT MANAGER : ??NO ACUTE PULMONARY INFILTRATE. ?? . . Read Date: Sep 02 2005 ??3:34P VIANCA COHEN M.D. - STAFF RADIOLOGIST - RESIDENT RADIOLOGIST RELEASE RESULTS: (Y) ASI END: END RESULT: DATE DICTATED: () GROCERY STORE BAGGER: ( ) IMPRESSION Narrative 09/02/2005 3:58 PM FOREMAN/PROJECT MANAGER - RESIDENT RADIOLOGIST Final Report EXAM: ?? [...] ASI END: END RESULT: DATE DICTATED: () GROCERY STORE BAGGER: ( ) IMPRESSION Omar Savage MD X-RAY documented in this encounter Visit Diagnoses Not on filedocumented in this encounter
--- OUTSIDE RECORDS SUMMARY | 2022-04-11 09:03 | XMS_ITS | Encounter Summary ---
:1955 Author Organization [facility] Address [address] [place] [address] Phone Care Team Providers Name Role Phone Unavailable Primary Care Provider Unavailable Encounter Details Date Type Department Care Team Description 07/03/1995 Orders Only [facility] XRAY [address] [place], [place] [address] Social History Tobacco Use Types Packs/Day Years Used Date Smoking Tobacco: Never Assessed Sex Assigned at Date Recorded Not on file documented as of this encounter Plan of Treatment Not on filedocumented as of this encounter Procedures Procedure Name Priority Date/Time Associated Diagnosis Comme nts XR COCCYX AP & LAT Routine 07/03/1995 2:10 PM Res ults for this MEDICAL TRANSCRIPTION EDITOR procedure are i n the results section. documented in this encounter Results XR COCCYX AP & LAT (07/03/1995 2:10 PM MEDICAL TRANSCRIPTION EDITOR) Anatomical Region Laterality Modality Lumbar Spine Computed Radiography Specimen (Source) Anatomical Collection Method Collection Time Re ceived Time Location / / Volume Laterality 07/03/1995 2:10 PM MEDICAL TRANSCRIPTION EDITOR Impressions 07/05/1995 12:33 PM MEDICAL TRANSCRIPTION EDITOR : ??Please see Sacrum report dated 07/03/95 1410. ASI END: RELEASE RESULTS: (Y) END RESULT: IMPRESSION Narrative 07/05/1995 12:33 PM MEDICAL TRANSCRIPTION EDITOR Final Report EXAM: ?? COCCYX AP & [...]
--- OUTSIDE RECORDS SUMMARY | 2022-04-11 09:03 | XMS_ITS | Encounter Summary ---
:1955 Author Organization [facility] Address [address] [place] [address] Phone Care Team Providers Name Role Phone Unavailable Primary Care Provider Unavailable Encounter Details Date Type Department Care Team Description 07/03/1995 Orders Only [facility] [place] [address] [place], [place] [address] Social History Tobacco Use Types Packs/Day Years Used Date Smoking Tobacco: Never Assessed Sex Assigned at Date Recorded Not on file documented as of this encounter Plan of Treatment Not on filedocumented as of this encounter Procedures Procedure Name Priority Date/Time Associated Diagnosis Comme nts XR SACRUM AP & LAT Routine 07/03/1995 2:10 PM Res ults for this FULL TIME BABYSITTER procedure are i n the results section. XR COCCYX AP & LAT Routine 07/03/1995 2:10 PM Res ults for this FULL TIME BABYSITTER procedure are i n the results section. documented in this encounter Results XR COCCYX AP & LAT (07/03/1995 2:10 PM FULL TIME BABYSITTER) Anatomical Region Laterality Modality Lumbar Spine Computed Radiography Specimen (Source) Anatomical Collection Method Collection Time Re ceived Time Location / / Volume Laterality 07/03/1995 2:10 PM FULL TIME BABYSITTER Impressions 07/05/1995 12:33 PM FULL TIME BABYSITTER : ??Please see Sacrum report dated 07/03/95 1410. ASI END: RELEASE RESULTS: (Y) END RESULT: IMPRESSION Narrative 07/05/1995 12:33 PM FULL TIME BABYSITTER Final Report EXAM: ?? COCCYX AP & [...] SACRUM AP & LAT (07/03/1995 2:10 PM FULL TIME BABYSITTER) Anatomical Region Laterality Modality Lumbar Spine Computed Radiography Specimen (Source) Anatomical Collection Method Collection Time Re ceived Time Location / / Volume Laterality 07/03/1995 2:10 PM FULL TIME BABYSITTER Impressions 07/05/1995 12:33 PM FULL TIME BABYSITTER : ??Evidence of bone loss or destruction [...] END RESULT: IMPRESSION Narrative 07/05/1995 12:33 PM FULL TIME BABYSITTER Final Report EXAM: ?? SACRUM AP & [...]
--- OUTSIDE RECORDS SUMMARY | 2022-04-11 09:03 | XMS_ITS | Encounter Summary ---
:1955 Author Organization [facility] Address [address] [place] [address] Phone Care Team Providers Name Role Phone [...]
--- OUTSIDE RECORDS SUMMARY | 2022-04-11 09:03 | XMS_ITS | Encounter Summary ---
:1955 Author Organization [facility] Address [address] [place] [address] Phone Care Team Providers Name Role Phone Unavailable Primary Care Provider Unavailable Encounter Details Date Type Department Care Team Description 10/12/2001 Orders Only [facility] [address] [place], [place] [address] Social History Tobacco Use Types Packs/Day Years Used Date Smoking Tobacco: Never Assessed Sex Assigned at Date Recorded Not on file documented as of this encounter Plan of Treatment Not on filedocumented as of this encounter Procedures Procedure Name Priority Date/Time Associated Diagnosis Comme nts XR CHEST 2 VIEWS PA Routine 10/12/2001 12:00 PM R esults for this + LAT* AUTOMATIC OPERATOR procedure are i n the results section. ULT KIDNEYS Routine 10/12/2001 11:22 AM Results for this COMPLETE AUTOMATIC OPERATOR procedure are i n the results section. documented in this encounter Results XR CHEST 2 VIEWS PA & LAT (10/12/2001 12:00 PM AUTOMATIC OPERATOR) Anatomical Region Laterality Modality Chest Digital Radiography Specimen (Source) Anatomical Collection Method Collection Time Re ceived Time Location / / Volume Laterality 10/12/2001 12:00 PM AUTOMATIC OPERATOR Impressions 10/14/2001 3:54 PM AUTOMATIC OPERATOR : 1. ??NO PULMONARY FIBROSIS OR AIR-SPACE INFILTRATE SEEN. 2. ??STABLE RIGHT LOWER LOBE PULMONARY N ODULE, LIKELY CALCIFIED. 3. ??INTERVAL MORE PROMINENT DENSITY OVE R THE MEDIAL ASPECT OF THE RIGHT APEX, OF UNCERTAIN CLINICAL SIGNIFICANCE . ??FURTHER EVALUATION WITH LORDOTIC VIEW MAY BE HELPFUL. ASI END: RELEASE RESULTS: (Y) END RESULT: IMPRESSION Narrative 10/14/2001 3:54 PM AUTOMATIC OPERATOR Final Report EXAM: ?? CHEST 2 VIEWS [...] X-RAY ULT KIDNEY COMPLETE (10/12/2001 11:22 AM AUTOMATIC OPERATOR) Anatomical Region Laterality Modality Abdomen Ultrasound Specimen (Source) Anatomical Collection Method Collection Time Re ceived Time Location / / Volume Laterality 10/12/2001 11:22 AM AUTOMATIC OPERATOR Impressions 10/15/2001 4:06 PM AUTOMATIC OPERATOR : 1. ??NO RENAL STONES IDENTIFIED. 2. ??MILD CORTICAL THINNING BILATERALLY. ??THIS MAY INDICATE MEDICAL RENAL DISEASE. I have personally reviewed the image(s) and initial interpretation, and I agree with the findings. ASI END: RELEASE RESULTS: (Y) END RESULT: IMPRESSION Narrative 10/15/2001 4:06 PM AUTOMATIC OPERATOR Final Report EXAM: ?? RENAL US: AMBLER KIDNEYS ?- ??10/12/2001 11:22AM SUSPECTED PATHOLOGY: SYMPTOMS [...] the original. Final Report EXAM: RENAL US: AMBLER KIDNEYS - 002 11:22AM SUSPECTED PATHOLOGY: SYMPTOMS [...]
--- OUTSIDE RECORDS SUMMARY | 2022-04-11 09:03 | XMS_ITS | Encounter Summary ---
:1955 Author Organization [facility] Address [address] [place] [address] Phone Care Team Providers Name Role Phone Unavailable Primary Care Provider Unavailable Encounter Details Date Type Department Care Team Description 09/02/2005 Letters(Tab) Unknown, Provider Social History Tobacco Use Types Packs/Day Years Used Date Smoking Tobacco: Never Assessed Sex Assigned at Date Recorded Not on file documented as of this encounter Progress Notes Interface, Railroad Wheels [employer] Axles Inspector-In - 11/15/2005 1:36 AM CDT [facility] [address] [facility], [address] [place], [place] [address] September 02, 2005 Mr. Micheal Rene [address] [place] [address] RE: MICHEAL RENE MR#: [id number] Dear Mr. Rene: From your recent Urology Clinic visit, your prostate specific antigen value remains low at 2.6. We will communicate with you once your other screening studies and x-ray studies have been completed. Best wishes. Please feel free to contact me for questions. Sincerely, Omar Savage MD Received in Railroad Wheels And Axles Inspector: 09/02/2005 14:40:28 (M: 09/03/2005 06:57:04 dma) CS/fidelina Voice ID: [id number] Document ID: [id number] cc: This document was electronically signed by Omar Savage MD on 09/06/2005 18:13:45. documented in this encounter Plan of Treatment Not on filedocumented as of this encounter Visit Diagnoses Not on filedocumented in this encounter
--- OUTSIDE RECORDS SUMMARY | 2022-04-11 09:03 | XMS_ITS | Encounter Summary ---
:1955 Author Organization [facility] Address [address] [place] [address] Phone Care Team Providers Name Role Phone Unavailable Primary Care Provider Unavailable Encounter Details Date Type Department Care Team Description 05/10/2005 EWeb History [facility] Sameera Frances MD [address] [facility] [address] [place], [place] [address] Mail [address] [place] [address] (Wo rk) Social History Tobacco Use Types Packs/Day Years Used Date Smoking Tobacco: Never Assessed Sex Assigned at Date Recorded Not on file documented as of this encounter Plan of Treatment Not on filedocumented as of this encounter Visit Diagnoses Not on filedocumented in this encounter
--- OUTSIDE RECORDS SUMMARY | 2022-04-11 09:03 | XMS_ITS | Encounter Summary ---
:1955 Author Organization [facility] Address [address] [place], [place] [address] [place] [address] Phone Care Team Providers Name Role Phone Unavailable Primary Care Provider Unavailable Encounter Details Date Type Department Care Team Description 04/03/1997 Orders Only [facility] Ultrasound [address] [place], [place] [address] Social History Tobacco Use Types [...] CDT Final Report EXAM: ?? RENAL US: [place] KIDNEYS ?- ??04/03/1997 01:10PM ?? EXAM: ??RENAL [...] - 03/10/2006 Final Report EXAM: RENAL US: [place] KIDNEYS - 997 01:10PM EXAM: RENAL ULTRASOUND [...]
--- OUTSIDE RECORDS SUMMARY | 2022-04-11 09:03 | XMS_ITS | Encounter Summary ---
:1955 Author Organization [facility] Address [address] [facility] [place] [address] Phone Care Team Providers Name Role Phone Unavailable Primary Care Provider Unavailable Encounter Details Date Type Department Care Team Description 03/04/2003 EWeb History [facility] Surgery Clinic Bubba Tavarez MD [address] [place], [place] [address] [place] [address] [phone] (Wo rk) Social History Tobacco Use Types Packs/Day Years Used Date Smoking Tobacco: Never Assessed Sex Assigned at Date Recorded Not on file documented as of this encounter Plan of Treatment Not on filedocumented as of this encounter Visit Diagnoses Not on filedocumented in this encounter
--- OUTSIDE RECORDS SUMMARY | 2022-04-11 09:03 | XMS_ITS | Encounter Summary ---
:1955 Author Organization [facility] Address [address] [place] [address] Phone Care Team Providers Name Role Phone Unavailable Primary Care Provider Unavailable Encounter Details Date Type Department Care Team Description 04/03/1997 Orders Only [facility] [address] [place], [place] [address] Social History Tobacco Use Types [...] RELEASE RESULTS: (Y) END RESULT: IMPRESSION Omar Savaeg MD X-RAY documented in this encounter Visit Diagnoses Not on filedocumented in this encounter
--- OUTSIDE RECORDS SUMMARY | 2022-04-11 09:03 | XMS_ITS | Encounter Summary ---
:1955 Author Organization [facility] Address [address] [place], [place] [address] [place] [address] Phone Care Team Providers Name Role Phone Unavailable Primary Care Provider Unavailable Encounter Details Date Type Department Care Team Description 10/12/2001 Orders Only [facility] Ultrasound [address] [place], [place] [address] Social History Tobacco Use Types Packs/Day Years Used Date Smoking Tobacco: Never Assessed Sex Assigned at Date Recorded Not on file documented as of this encounter Plan of Treatment Not on filedocumented as of this encounter Procedures Procedure Name Priority Date/Time Associated Diagnosis Comme nts ULT KIDNEYS Routine 10/12/2001 11:22 AM Results for this COMPLETE PHOTOGRAPHY PROFESSOR procedure are i n the results section. documented in this encounter Results ULT KIDNEY COMPLETE (10/12/2001 11:22 AM PHOTOGRAPHY PROFESSOR) Anatomical Region Laterality Modality Abdomen Ultrasound Specimen (Source) Anatomical Collection Method Collection Time Re ceived Time Location / / Volume Laterality 10/12/2001 11:22 AM PHOTOGRAPHY PROFESSOR Impressions 10/15/2001 4:06 PM PHOTOGRAPHY PROFESSOR : 1. ??NO RENAL STONES IDENTIFIED. 2. ??MILD CORTICAL THINNING BILATERALLY. ??THIS MAY INDICATE MEDICAL RENAL DISEASE. I have personally reviewed the image(s) and initial interpretation, and I agree with the findings. ASI END: RELEASE RESULTS: (Y) END RESULT: IMPRESSION Narrative 10/15/2001 4:06 PM PHOTOGRAPHY PROFESSOR Final Report EXAM: ?? RENAL US: TYONEK KIDNEYS ?- ??10/12/2001 11:22AM SUSPECTED PATHOLOGY: SYMPTOMS [...] the original. Final Report EXAM: RENAL US: TYONEK KIDNEYS - 002 11:22AM SUSPECTED PATHOLOGY: SYMPTOMS [...]
--- OUTSIDE RECORDS SUMMARY | 2022-04-11 09:03 | XMS_ITS | Encounter Summary ---
:1955 Author Organization [facility] Address [address] [facility] [place] [address] Phone Care Team Providers Name Role Phone Unavailable Primary Care Provider Unavailable Encounter Details Date Type Department Care Team Description 01/29/2001 Orders Only [facility] Sameera Fracnes MD [address] [facility] [address] [place], [place] [address] 6 Mail Code P5 [place] [address] (Wo rk) Social History Tobacco [...] Results URINE CX (01/29/2001 3:37 PM CDT) [facility] Method Time Signature Urine Cult [facility] Test Name ? Collected on --------- [...] PM 01/31 CDT 10:25 AM CDT Narrative [facility] - 01/31/2001 10:25 AM CDT Ordered by an unspecified provider. Provider Unknown LAB MICROBIOLOGY Performing Organization Address City/State/ZIP Code Phon e Number [facility] [place] [address] LAB URINALYSIS, TOTAL (01/29/2001 3:37 PM CDT) [facility] Method Time Signature Color YELLOW YELLOW [facility] Appearance CLEAR CLEAR [facility] Urine Glucose NEGATIVE NEGATIVE [facility] Bili UA NEGATIVE NEGATIVE [facility] Ketones NEGATIVE NEGATIVE [facility] Specific [place] 1.010 1.003 - [facility] 1.030 Blood Ur TRACE Neg-Trace [facility] PH Urine 6.5 5.0 - 7.0 [facility] Protein Ur NEGATIVE NEGATIVE [facility] Urobilinogen 0.2 0.2 - 1.0 [facility] EU/dL Nitrite Ur NEGATIVE NEGATIVE [facility] Leuk Est TRACE Neg-Trace [facility] Microscopic [facility] WBC Ur 0 - 5 0 - 5 [facility] Trans Epith 1+ [facility] Sperm 1+ [facility] Specimen Anatomical Collection Method Collection Time Receive d Time (Source) Location / / Volume Laterality Urine 01/29/2001 3:37 PM 1 4:56 CDT PM CDT Narrative [facility] - 01/29/2001 4:56 PM CDT Ordered by an unspecified provider. Provider Unknown LABORATORY Performing Organization Address City/State/ZIP Code Phon e Number [facility] [place] [address] LAB documented in this encounter Visit Diagnoses Not on filedocumented in this encounter
--- OUTSIDE RECORDS SUMMARY | 2022-04-11 09:03 | XMS_ITS | Encounter Summary ---
:1955 Author Organization [facility] Address [address] [place] [address] Phone Care Team Providers Name Role Phone Unavailable Primary Care Provider Unavailable Encounter Details Date Type Department Care Team Description 05/15/2003 EWeb History [facility] Sameera Frances MD 701 [facility] [address] [place], [place] [address] Mail Code P5 [place] [address] (Wo rk) Social History Tobacco Use Types Packs/Day Years Used Date Smoking Tobacco: Never Assessed Sex Assigned at Date Recorded Not on file documented as of this encounter Plan of Treatment Not on filedocumented as of this encounter Visit Diagnoses Not on filedocumented in this encounter
--- OUTSIDE RECORDS SUMMARY | 2022-04-11 09:03 | XMS_ITS | Encounter Summary ---
:1955 Author Organization [facility] [address] [place] [address] Phone Care Team Providers Name Role Phone Unavailable Primary Care Provider Unavailable Encounter Details Date Type Department Care Team Description 05/10/2005 Notes/Trans Unknown, Provider Social History Tobacco Use Types Packs/Day Years Used Date Smoking Tobacco: Never Assessed Sex Assigned at Date Recorded Not on file documented as of this encounter Progress Notes Interface, Training Generalist-In - 11/15/2005 12:30 AM CDT [facility]#: [id number] [place] [address] PATIENT: MICHEAL FLETCHER : 1955 NARRATIVE NOTES [...] a father and a grandfather living in [place]. REVIEW OF SYSTEMS: A total of ten [...] depression. Equipment - he has a new Mis Descuentosie wheelchair and a J cushion with extra [...] Physical Medicine and Rehabilitation Service Received in Training Generalist: 05/10/2005 17:00:07 (M: 05/12/2005 12:51:56/[facility]) [facility]/cme Voice ID: [id number] Document ID: [id number] cc: This document was electronically signed by Sameera Frances MD on 06/07/2005 14:43:43. documented in this encounter Plan of Treatment Not on filedocumented as of this encounter Visit Diagnoses Not on filedocumented in this encounter
--- OUTSIDE RECORDS SUMMARY | 2022-04-11 09:03 | XMS_ITS | Encounter Summary ---
:1955 Author Organization [facility] Address [address] [place] [address] Phone Care Team Providers Name Role Phone [...] 09/19/2001 5:05 PM Re sults for this LOGISTICS SOLUTION MANAGER procedure are i n the results section. PSA Routine 09/19/2001 5:05 PM Results f or this DIAGNOSTIC(PROSTATE LOGISTICS SOLUTION MANAGER procedur e are in SPE AG the results section. CREATININE, SERUM Routine 09/19/2001 5:05 PM Resu lts for this LOGISTICS SOLUTION MANAGER procedure are i n the results section. documented in this encounter Results PSA DIAGNOSTIC(PROSTATE SPE AG (09/19/2001 5:05 PM LOGISTICS SOLUTION MANAGER) athologist Signature PSA Diagnostic 0.5 0.00 - 4.00 [facility] NG/ML Specimen Anatomical Collection Method Collection Time Receive d Time (Source) Location / / Volume Laterality Blood 09/19/2001 5:05 PM 2 5:26 LOGISTICS SOLUTION MANAGER PM LOGISTICS SOLUTION MANAGER Omar Savage MD LABORATORY Performing Organization Address City/State/ZIP Code Phon e Number [facility] BUN (UREA NITROGEN) (09/19/2001 5:05 PM LOGISTICS SOLUTION MANAGER) athologist Signature BUN 13 5 - 25 MG/DL [facility] Specimen Anatomical Collection Method Collection Time Receive d Time (Source) Location / / Volume Laterality Blood 09/19/2001 5:05 PM 2 5:26 LOGISTICS SOLUTION MANAGER PM LOGISTICS SOLUTION MANAGER Omar Savage MD LABORATORY Performing Organization Address City/State/ZIP Code Phon e Number [facility] CREATININE, SERUM (09/19/2001 5:05 PM LOGISTICS SOLUTION MANAGER) P athologist Signature Creatinine 0.5 0.5 - 1.4 [facility] MG/DL Specimen Anatomical Collection Method Collection Time Receive d Time (Source) Location / / Volume Laterality Blood 09/19/2001 5:05 PM 2 5:26 LOGISTICS SOLUTION MANAGER PM LOGISTICS SOLUTION MANAGER Omar Savage MD LABORATORY Performing Organization Address City/State/ZIP Code Phon e Number [facility] documented in this encounter Visit Diagnoses Not on filedocumented in this encounter
--- OUTSIDE RECORDS SUMMARY | 2022-04-11 09:03 | XMS_ITS | Encounter Summary ---
:1955 Author Organization [facility] Address [address] [place], [place] [address] [address] Phone Care Team Providers Name Role Phone Unavailable Primary Care Provider Unavailable Encounter Details Date Type Department Care Team Description 12/09/1998 Orders Only [facility] MRI G[address] [place], [place] [address] Social History Tobacco Use Types [...]
--- OUTSIDE RECORDS SUMMARY | 2022-04-11 09:03 | XMS_ITS ---
:1955 Author Care Team Providers Name Role Phone CHETNA MERAZ MD Primary Care Provider [phone] ANN MCLAININA Supervisor Counseling And Guidance [phone] Allergies Code Code System Name Reaction Severity [...] MOUTH ONCE A DAY FOR 10 DAYS xpflzcsx-pfteqchlw-viedpgntg 3.5 mg-10,000 unit/mL-1 % ear d rops,susp [...] Name Performed by ? 09/27/2021 US, Kidney [facility] Radiology Department [address] [place] [address] (Work Place) Results Lab Results Date Name Specimen Result Interpretation Description Value Range Status Address ? 05/06/2021 Culture, BLDV ABNORMAL Final Report microbiology ? Final [place] Urine results Urology [facility] Lab: [address], [place] 05/06/2021 Urinalysis ? No ? ? ? , Dipstick observation recorded. 02/18/2021 Culture, UR ABNORMAL Final Report microbiology ? Final [place] Urine results [facility] [place] Lab: [address] [place] ? Urinalysis ? Color-Status Yellow ? ? [...] ? ? ? Sp 1.015 ? ? [place]-Statu s ? ? ? Nitrates-Sta positive ? ? tus ? ? ? Blood-Status Trace ? Leuko-Status Large ? ? Past Encounters 09/27/2021 Neurogenic Bladder; Spinal Cord Injury; Spasm of Bladder; Recurrent Urinary Tract Infection Jono Pagan MD: [address] [place] [address], Ph. 05/06/2021 Abnormal Urine Jono Pagan MD: [address] [place] [address], Ph. 02/18/2021 Neurogenic Bladder; Spinal Cord Injury; Spasm of Bladder; Recurrent Urinary Tract Infection; Acute Urinary Tract Infection Jono Pagan MD: [address] [place] [address], Ph. Social History Tobacco Smoking Status Former [...]
--- OUTSIDE RECORDS SUMMARY | 2022-04-11 09:03 | XMS_ITS | Encounter Summary ---
:1955 Author Organization [facility] Address [address] [place] [address] Phone Care Team Providers Name Role Phone Unavailable Primary Care Provider Unavailable Encounter Details Date Type Department Care Team Description 08/18/2005 Notes/Trans Unknown, Provider Social History Tobacco Use Types Packs/Day Years Used Date Smoking Tobacco: Never Assessed Sex Assigned at Date Recorded Not on file documented as of this encounter Progress Notes Interface, Retoucher Photoengraving-In - 11/15/2005 1:28 AM CDT [id number] PATIENT: MICHEAL FLETCHER [address] [facility] : 1955 [place] [address] DATE: 08/18/2005 Page (fax) The patient is [...] KEFLEX, SHELLFISH, AND AUGMENTIN. His primary care puppet engineer is Dr. Sameera Frances whom he sees [...] year's time. Omar Savage MD Received in Retoucher Photoengraving: 08/22/2005 18:11:27 (M: 08/24/2005 17:01:36 cb) CS/cb Voice ID: [id number] Document ID: [id number] cc: This document was electronically signed by Omar Savage MD on 08/26/2005 10:47:02. ? documented in this encounter Plan of Treatment Not on filedocumented as of this encounter Visit Diagnoses Not on filedocumented in this encounter
--- OUTSIDE RECORDS SUMMARY | 2022-04-11 09:03 | XMS_ITS | Encounter Summary ---
:1955 Author Organization [facility] Address [address] [place] [address] Phone Care Team Providers Name Role Phone [...]
== END 2022-04-11 08:58 | disposition home or self-care (01) ==
LOC: WOUND 08:57
PROVIDERS: PCP Family Medicine; Visit Provider Nurse Practitioner Family
DX: L97.422 Non-pressure chronic ulcer of left heel and midfoot with fat layer exposed (principal); L89.894 Pressure ulcer of other site, stage 4; S80.811A Abrasion, right lower leg, initial encounter
CPT/HCPCS: 11043; 11046; 97597

== ENCOUNTER 2022-04-18 08:46 | Outpatient (CLI) | payer OTHER, SELFPAY ==
--- OUTSIDE RECORDS SUMMARY | 2022-04-18 08:48 | XMS_ITS | Encounter Summary ---
:1955 Author Organization [facility] Address [address] [place] [address] Phone Care Team Providers Name Role Phone Unavailable Primary Care Provider Unavailable Encounter Details Date Type Department Care Team Description 08/20/2020 Immunization [facility] Jonathan Chu MD [address] [address] COVID-19; [address] Nurse, [facility] Vaccine [address] [place] [address] Need for vaccination [place], [place] [address] Social History Tobacco Use Types [...] with No / Unsure 08/20/2020 3:15 PM LICENSED NURSING ASSISTANT someone who was confirmed or suspected to have Coronavirus / COVID-19? documented as of this encounter Plan of Treatment Not on filedocumented as of this encounter Visit Diagnoses Diagnosis COVID-19 Need for vaccination Need for prophylactic vaccination and in oculation against unspecified single disease documented in this encounter
--- OUTSIDE RECORDS SUMMARY | 2022-04-18 08:48 | XMS_ITS | Encounter Summary ---
:1955 Author Organization [facility] Address [address] [place] [address] Phone Care Team Providers Name Role Phone Lila Clay PT Unavailable Reason for Visit Prior Authorization (Routine) - Closed Specialty Diagnoses / Procedures Referred By Contact Refer red To Contact Physical Therapy / Diagnoses Quadriplegia () At high risk for skin breakdown Impaired mobility Provider, Outside Lila Clay, PHYSICAL MEDICINE AND Procedures PT TREATMENT PLAN OUTSIDE PROVIDER PT REHAB [address] [address] Phone: Fax: Referral ID Status Reason Start Date Expiration Date Visits Requ ested Visits Authorized [id number] Closed 05/05/2021 01/20/2022 12 12 Encounter Details Date Type Department Care Team Description 06/02/2021 Hospital Encounter Clinic & Specialty Provider, Outside OUTSIDE PROVIDER [address] Dance Hall Host/Hostess apy Lila Clay, PT [address] [place] [address] Social History Tobacco Use Types Packs/Day [...] Hospitalization: None Referring Provider: MD Yamile Alves, PAIRER ODDS ?? Current Precautions/Contraindications: At high risk for skin breakdown, s/p flap surgery, current pressure injuries on feet [facility] Director Apparel: no Patient gave two identifiers for Check [...] additional changes as appropriate. O: [Billable Units/Time] (80987) Wheelchair Management: 60 min Transfer MWC/mat table [...] passive IR/ER WNL. Adjustments made to patient's [facility] this date: +Increased posterior seat dump by 1 +lowered footplates B by approximately 1 Pt returned to sitting in [facility] at end of session, able to self [...] Clay, PT [employer] [place] License: #[id number] Pager: [phone] Office: [phone] SCRUBBER documented in this encounter Plan of Treatment Not on filedocumented as of this encounter Visit Diagnoses Not on filedocumented in this encounter Care Teams Pet Care Attendant Relationship Specialty Start Date End Date Lila Clay, PT Physical Therapist Physical Therapy 04/05/21 [address] [place] [address] documented as of this encounter
--- OUTSIDE RECORDS SUMMARY | 2022-04-18 08:48 | XMS_ITS | Encounter Summary ---
:1955 Author Organization [facility] Address [address] [place] [address] Phone Care Team Providers Name Role Phone Lila Clay PT Unavailable Reason for Visit Prior Authorization (Routine) - Closed Specialty Diagnoses / Procedures Referred By Contact Refer red To Contact Physical Therapy / Diagnoses Quadriplegia () At high risk for skin breakdown Impaired mobility Provider, Outside Lila Clay, PHYSICAL MEDICINE AND Procedures PT TREATMENT PLAN OUTSIDE PROVIDER PT REHAB [address] [address] Phone: Fax: Referral ID Status Reason Start Date Expiration Date Visits Requ ested Visits Authorized [id number] Closed 05/05/2021 01/20/2022 12 12 Encounter Details Date Type Department Care Team Description 06/09/2021 Hospital Encounter Clinic & Specialty Provider, Outside OUTSIDE PROVIDER [address] Construction Director apy Lila Clay, PT [address] [place] [address] Social History Tobacco Use Types Packs/Day [...] Hospitalization: None Referring Provider: MD Yamile Alves, ARTICULATION OFFICER ?? Current Precautions/Contraindications: At high risk for skin breakdown, s/p flap surgery, current pressure injuries on feet [facility] Government Guard: no Patient gave two identifiers for Check 2 for Safety Total Treatment Time: 70 Min Pain: No significant complaints during session S: Pt presents to his PT session in his MWC, independently. Also present: Matthew Ricketts/[employer]. Last 30 min of the session, patient's [facility] (Raquel Gamino, RN, PHN, MA P: [phone], F: [phone]) No significant changes; still attends wound clinic for B foot injuries weekly - missed yesterday so will be seen later this week. Pt agreed that he would like to try to adjust 1-2 items at a time; assess tolerance, and then move forward with additional changes as appropriate. Noticed that additional 'dump' is 'different' but tolerable. O: [Billable Units/Time] (87418) Wheelchair Management: 70 min Pt remained in [...] by 2? *Will request a demo from [facility], as PT looked and did not have [...] require a new back frame to the [facility], but would provide additional depth to the [...] to be able to transfer in/out of [facility] independently. At end of session, all agreed [...] date include: Increased posterior seat dump on [facility] this date and pt tolerated well - [...] be obtained before then? Lila Clay PT [facility] License: #[id number] Pager: [phone] Office: [phone] ISION GRINDER documented in this encounter Plan of Treatment Not on filedocumented as of this encounter Visit Diagnoses Not on filedocumented in this encounter Care Teams Field Crops Harvest Machine Operator Relationship Specialty Start Date End Date Lila Clay, PT Physical Therapist Physical Therapy 04/05/[address] [place] [address] documented as of this encounter
--- OUTSIDE RECORDS SUMMARY | 2022-04-18 08:48 | XMS_ITS | Encounter Summary ---
:1955 Author Organization [facility] Address [address] [place] [address] Phone Care Team Providers Name Role Phone Provider, Outside Primary Care Provider Unavailable Reason for Visit Reason Onset Date Comments Other 2018 Encounter Details Date Type Department Care Team Description 2018 Telephone Clinic & Specialty Monty Garcia MD Appointment Center Urology Clini c 701 [facility] P5 Cancellation [address] [phone] (Wo rk) Social History Tobacco Use Types [...] on filedocumented in this encounter Care Teams Double End Tenoner Setter Relationship Specialty Start Date End Date Provider, Outside PCP - General 8/21/09 4/1/19 [place] [address] documented as of this encounter
--- OUTSIDE RECORDS SUMMARY | 2022-04-18 08:48 | XMS_ITS | Encounter Summary ---
:1955 Author Organization [facility] Address [address] [place] [address] Phone Care Team Providers Name Role Phone Provider, Outside Primary Care Provider Unavailable Encounter Details Date Type Department Care Team Description 01/02/2018 Nurse Triage Clinic & Specialty Center Farida Dueñas, programmer Clinic [address] [address] [place], [place] [address] Social History Tobacco Use Types [...] on filedocumented in this encounter Care Teams Rn Wound Relationship Specialty Start Date End Date Provider, Outside PCP - General 03/13/09 10/22/18 [place] [address] documented as of this encounter
--- OUTSIDE RECORDS SUMMARY | 2022-04-18 08:48 | XMS_ITS | Encounter Summary ---
:1955 Author Organization [facility] Address [address] [place] [address] Phone Care Team Providers Name Role Phone Lila Clay PT Unavailable Reason for Visit Reason Comments Referral Consult/Test/Treat (Routine) - Closed Specialty Diagnoses / Procedures Referred By Contact Refer red To Contact Physical Medicine and Diagnoses Paraplegia, unspecified paraplegia from previous in [place] 33 yrs James Nava Csc [facility] / PHYSICAL MD [place] [address] [place] [address] MEDICINE AND REHAB [address] [place] [address] Fax: Referral ID Status Reason Start Date Expiration Date Visits V isits Requested Authorized [id number] Closed Created in 07/20/2021 07/20/2022 1 1 PAS Encounter Details Date Type Department Care Team Description 09/02/2021 Office Visit Clinic & Specialty Center Dariel Israel uadriplegia, C5-C7 incomplete () (Primary Dx); Physical Medicine & A, PA-C Muscle spasticity Rehabilitation Clini c [address] [place] [phone] Social History Tobacco Use [...] Comments Blood Pressure 135/74 09/02/2021 8:12 AM MORTAR MAN Pulse 72 09/02/2021 8:12 AM MORTAR MAN Temperature - - Respiratory Rate - - Oxygen Saturation - - Inhaled Oxygen Concentration - - Weight - - Height - - Body Mass Index - - documented in this encounter Progress Notes Dariel Israel PA-C - 09/02/2021 8:00 AM CST [facility] Physical Medicine & Rehabilitation Clinic Khanh Rene [...] is followed by a wound clinic in [place]. He just had a wheelchair evaluation in physical therapy here at [place]. He stated that around 2 to 3 [...] 5/5 EE 5/5 5/5 WE 4/5 4/5 Director Of Scout Work 3/5 3/5 Strength bilateral lower extremities 0/5 [...] service, including pre-visit review of separatelyobtained history, [id number] interaction performing medically appropriate physical exam, patient counseling/education, interpretation of diagnostic results, care coordination and documentation was 46 minutes. Dictation Disclaimer: Notes are completed with voice-recognition dictation software. Errors are generally corrected in real time. Please contact me via [employer] staff message if you note any errors requiring clarification. AR MAN documented in this encounter Plan of Treatment Scheduled Orders Name Type Priority Associated Diagnoses Order S chedule EMG - BOTOX EMG Routine Muscle spasticity Ordered: 0 09/02/2021 documented as of this encounter Procedures Procedure Name Priority Date/Time Associated Comments Diagnosis CARE EVERYWHERE 09/07/2021 11:04 Results for this AUTHORIZATION AM MORTAR MAN procedure are in the results section. CARE EVERYWHERE 09/07/2021 11:04 Results for this AUTHORIZATION AM MORTAR MAN procedure are in the results section. documented in this encounter Results CARE EVERYWHERE AUTHORIZATION (09/07/2021 11:04 AM MORTAR MAN) Narrative This result has an attachment that is no t available. Him Provider SCANNED CONSENTS CARE EVERYWHERE AUTHORIZATION (09/07/2021 11:04 AM MORTAR MAN) Narrative This result has an attachment that is no t available. Him Provider SCANNED CONSENTS documented in this encounter Visit Diagnoses Diagnosis Quadriplegia, C5-C7 incomplete () - Pr imary Quadriplegia, C5-C7, incomplete Muscle spasticity Spasm of muscle documented in this encounter Care Teams Youth Care Professional Relationship Specialty Start Date End Date Lila Clay, PT Physical Therapist Physical Therapy 04/05/21 [address] [place] [address] documented as of this encounter
--- OUTSIDE RECORDS SUMMARY | 2022-04-18 08:48 | XMS_ITS | Encounter Summary ---
:1955 Author Organization [facility] Address [address] [place] [address] Phone Care Team Providers Name Role Phone Lila Clay PT Unavailable Reason for Visit Prior Authorization (Routine) - Closed Specialty Diagnoses / Procedures Referred By Contact Refer red To Contact Physical Therapy / Diagnoses Quadriplegia () At high risk for skin breakdown Impaired mobility Provider, Outside Lila Clay, PHYSICAL MEDICINE AND Procedures PT TREATMENT PLAN OUTSIDE PROVIDER PT REHAB [place] [address] [place] [address] Phone: Fax: Referral ID Status Reason Start Date Expiration Date Visits Requ ested Visits Authorized [id number] Closed 05/05/2021 01/20/2022 12 12 Encounter Details Date Type Department Care Team Description 09/01/2021 Hospital Encounter Clinic & Specialty Lila Clay, No [facility] Solvent Process Extractor Operator apy PT [address] [place] [address] 4 [place], [place] [phone] Social History Tobacco Use Types Packs/Day Years [...] items have been addressed. Lila Clay PT [facility] License: #[id number] Pager: [phone] Office: [phone] ENSATION COORDINATOR documented in this encounter Plan of Treatment Not on filedocumented as of this encounter Visit Diagnoses Not on filedocumented in this encounter Care Teams Cardiac Nurse Practitioner Relationship Specialty Start Date End Date Lila Clay, PT Physical Therapist Physical Therapy 04/05/21 [address] [place] [address] documented as of this encounter
--- OUTSIDE RECORDS SUMMARY | 2022-04-18 08:48 | XMS_ITS | Encounter Summary ---
:1955 Author Organization Formerly Named [facility] Address [address] [place] [address] Phone Care Team Providers Name Role Phone [...] filedocumented in this encounter Care Teams Medical Records Coder Relationship Specialty Start Date End Date Lila Clay, PT Physical Therapist Physical Therapy 04/05/21 [address] [place] [address] documented as of this encounter
--- OUTSIDE RECORDS SUMMARY | 2022-04-18 08:48 | XMS_ITS | Encounter Summary ---
:1955 Author Organization [facility] Address 1 [place] [address] Phone Care Team Providers Name Role Phone Provider, Outside Primary Care Provider Unavailable Encounter Details Date Type Department Care Team Description 10/07/2016 Hospital Encounter [facility] Ultrasound Monty Garcia MD [address] [place] [address] .[address] [place], [place] [phone] (Wo rk) Social History Tobacco Use Types [...] NOS documented in this encounter Care Teams Imaging Administrator Relationship Specialty Start Date End Date Provider, Outside PCP - General 03/13/09 10/22/18 [place] [address] documented as of this encounter
--- OUTSIDE RECORDS SUMMARY | 2022-04-18 08:48 | XMS_ITS | Encounter Summary ---
:1955 Author Organization [facility] Address [address] [place] [address] Phone Care Team Providers Name Role Phone Unavailable Primary Care Provider Unavailable Reason for Visit Reason Onset Date Comments Refill Request 04/03/2020 Encounter Details Date Type Department Care Team Description 04/03/2020 Refill [facility] Monty Garcia MD Refill Request Urology Clinic [address] [place] [address] [place] [address] [phone] Social History Tobacco Use Types Packs/Day Years [...]
--- OUTSIDE RECORDS SUMMARY | 2022-04-18 08:48 | XMS_ITS | Encounter Summary ---
:1955 Author Organization [facility] Address 1 [place] [address] Phone Care Team Providers Name Role Phone Unavailable Primary Care Provider Unavailable Reason for Visit Reason Onset Date Comments Refill Request 03/22/2019 propanthelin Encounter Details Date Type Department Care Team Description 03/22/2019 Refill Clinic & Specialty Monty Garcia MD Refill Request Center Urology Clini c 701 [facility] P5 (propanthelin) [address] [phone] (Wo rk) Social History Tobacco Use Types [...]
--- OUTSIDE RECORDS SUMMARY | 2022-04-18 08:48 | XMS_ITS | Encounter Summary ---
:1955 Author Organization [facility] Address 1 [place] [address] Phone Care Team Providers Name Role Phone Provider, Outside Primary Care Provider Unavailable Reason for Visit Reason Onset Date Comments Refill Request 09/05/2016 Encounter Details Date Type Department Care Team Description 09/05/2016 Refill [facility] [place] [facility] Divya Caraballo RN Refill Request [address] [facility], [address] [place], [place] [address] [place] [address] Social History Tobacco Use Types Packs/Day Years [...] NOS documented in this encounter Care Teams Music Teacher Relationship Specialty Start Date End Date Provider, Outside PCP - General 03/13/09 10/22/18 [place] [address] documented as of this encounter
--- OUTSIDE RECORDS SUMMARY | 2022-04-18 08:48 | XMS_ITS | Encounter Summary ---
:1955 Author Organization [facility] Address 1 [place] [address] Phone Care Team Providers Name Role Phone Provider, Outside Primary Care Provider Unavailable Reason for Visit Reason Onset Date Comments Refill Request 01/12/2018 Encounter Details Date Type Department Care Team Description 01/12/2018 Refill [facility] Monty Garcia MD Refill Request Urology Clinic [address] [place] [address] [address] [place], [place] [address] [phone] Social History Tobacco Use Types Packs/Day Years [...] on filedocumented in this encounter Care Teams Control System Computer Scientist Relationship Specialty Start Date End Date Provider, Outside PCP - General 03/13/09 10/22/18 [place] [address] documented as of this encounter
--- OUTSIDE RECORDS SUMMARY | 2022-04-18 08:48 | XMS_ITS | Encounter Summary ---
:1955 Author Organization [facility] Address [address] [place] [address] Phone Care Team Providers Name Role Phone Provider, Outside Primary Care Provider Unavailable Reason for Visit Reason Onset Date Comments Refill Request 10/06/2016 re: Macrodantin Encounter Details Date Type Department Care Team Description 10/06/2016 Telephone [facility] Urology Clinic Divya Avendano Refi ll Request (re: Yordy ASH Macrodantin) [address] [place], [place] [address] [place], [place] [phone] [address] Social History Tobacco Use Types Packs/Day Years [...] on filedocumented in this encounter Care Teams Commercial Administrator Relationship Specialty Start Date End Date Provider, Outside PCP - General 03/13/09 10/22/18 [place] [address] documented as of this encounter
--- OUTSIDE RECORDS SUMMARY | 2022-04-18 08:48 | XMS_ITS | Encounter Summary ---
:[address] [facility] Address [address] [place] [address] Phone Care Team Providers Name Role Phone Lila Clay PT Unavailable Reason for Visit Prior Authorization (Routine) - Closed Specialty Diagnoses / Procedures Referred By Contact Refer red To Contact Physical Therapy / Diagnoses Quadriplegia () At high risk for skin breakdown Impaired mobility Provider, Outside Lila Clay, PHYSICAL MEDICINE AND Procedures PT TREATMENT PLAN OUTSIDE PROVIDER PT REHAB [address] [address] Phone: Fax: Referral ID Status Reason Start Date Expiration Date Visits Requ ested Visits Authorized [id number] Closed 05/05/2021 01/20/2022 12 12 Encounter Details Date Type Department Care Team Description 08/11/2021 Hospital Encounter Clinic & Specialty Provider, Outside [place] [address] No Show Center Heddler Tier apy Lila Clay, PT [address] [place] [address] Social History Tobacco Use Types Packs/Day [...] request, with this therapist. Lila Clay PT [facility] License: #[id number] Pager: [phone] Office: [phone] CE ACADEMY PROGRAM COORDINATOR documented in this encounter Plan of Treatment Not on filedocumented as of this encounter Visit Diagnoses Not on filedocumented in this encounter Care Teams Banking Supervisor Relationship Specialty Start Date End Date Lila Clya, PT Physical Therapist Physical Therapy 04/05/21 [address] [place] [address] documented as of this encounter
--- OUTSIDE RECORDS SUMMARY | 2022-04-18 08:48 | XMS_ITS | Encounter Summary ---
:1955 Author Organization [facility] Address [address] [place] [address] Phone Care Team Providers Name Role Phone Provider, Outside Primary Care Provider Unavailable Reason for Visit Reason Comments Other Encounter Details Date Type Department Care Team Description 05/22/2016 Refill [facility] [place] Monty Morales MD Other [address] [facility], [address] [address] 4 [place] [address] [phone] (Wo rk) Social History Tobacco Use Types [...] received in Urology Clinic from the pt's [facility], for propantheline and nitrofurantoin. Records are [...] NOS documented in this encounter Care Teams Oracle Programmer Analyst Relationship Specialty Start Date End Date Provider, Outside PCP - General 03/13/09 10/22/18 [place] [address] documented as of this encounter
--- OUTSIDE RECORDS SUMMARY | 2022-04-18 08:48 | XMS_ITS | Encounter Summary ---
:1955 Author Organization [facility] Address [address] [place] [address] Phone Care Team Providers Name Role Phone [...] with No / Unsure 08/20/2020 3:15 PM LEAD SOFTWARE TESTER someone who was confirmed or suspected to have Coronavirus / COVID-19? documented as of this encounter Plan of Treatment Not on filedocumented as of this encounter Visit Diagnoses Not on filedocumented in this encounter
--- OUTSIDE RECORDS SUMMARY | 2022-04-18 08:48 | XMS_ITS | Encounter Summary ---
:1955 Author Organization [facility] Address [address] [facility] [place] [address] Phone Care Team Providers Name Role Phone Lila Clay PT Unavailable Reason for Visit Reason Onset Date Comments Prior Authorization For Medications 09/03/2021 Boto x (onabotulinumtoxinA) Encounter Details Date Type Department Care Team Description 09/03/2021 Pharmacy Prior [facility] P1 Pharmacy Sakshi Mcmanus, Authorization [address] [facility] PharmD P1.630 701 [place], [place] [address] [place], [place] [phone] Social History Tobacco Use Types Packs/Day Years [...] the patient has active primary coverage through [facility] MEDICARE ADVANTAGE ([facility]). [facility] does NOT require prior authorization for BOTOX when it is given in the clinic/infusion center and billed on the medical claim (buy and bill). IMPORTANT - READ BELOW However, [facility] reimburses BOTOX only for select designated ICD-10/Diagnosis Codes. Based on review of the patient's chart, please (continue to) use the following COVERED diagnosis code for the visits in which the patient will receive BOTOX: - G82.50 or G82.54 Quadriplegia Update 01/27/2022 - Unable to get response from [employer]. Per 10/21/2021 note appears patient was going [...] on filedocumented in this encounter Care Teams Agronomy Location Manager Relationship Specialty Start Date End Date Lila Clay, PT Physical Therapist Physical Therapy 04/05/21 [address] [place] [address] documented as of this encounter
--- OUTSIDE RECORDS SUMMARY | 2022-04-18 08:48 | XMS_ITS | Encounter Summary ---
:1955 Author Organization [facility] Address [address] [place] [address] Phone Care Team Providers Name Role Phone Provider, Outside Primary Care Provider Unavailable Reason for Visit Reason Onset Date Comments Medication Refill 11/11/2016 propantheline (PRO-B ANTHINE) Encounter Details Date Type Department Care Team Description 11/11/2016 Refill [facility] Urology Clinic Selena Garcia MD Medication Refill [place] 701 [facility] P5 (propantheline [address], [address] [place], [place] (PRO-BANTHINE) ) [place], [place] [phone] (Wo rk) Social History Tobacco Use Types [...] mg oral tablet Pharmacy Name and Location: [facility] [address] [place] [phone] - [phone] - [address] [place] [address] Phone number for return call: .[phone] Did caller contact the pharmacy? yes: pharmacy [...] on filedocumented in this encounter Care Teams Sales Representative Rural Power Relationship Specialty Start Date End Date Provider, Outside PCP - General 03/13/09 10/22/18 [place] [address] documented as of this encounter
--- OUTSIDE RECORDS SUMMARY | 2022-04-18 08:48 | XMS_ITS | Encounter Summary ---
:1955 Author Organization [facility] Address 1 [place] [address] Phone Care Team Providers Name Role Phone Provider, Outside Primary Care Provider Unavailable Reason for Visit Reason Onset Date Comments Refill Request 12/23/2016 Encounter Details Date Type Department Care Team Description 12/23/2016 Refill [facility] Urology Clinic Divya Carbaallo RN Refill Request [address] [facility], [address] 701 [place], [place] [address] [place] [address] Social History Tobacco Use Types Packs/Day Years [...] on filedocumented in this encounter Care Teams Dealmaker Relationship Specialty Start Date End Date Provider, Outside PCP - General 03/13/09 10/22/18 [place] [address] documented as of this encounter
--- OUTSIDE RECORDS SUMMARY | 2022-04-18 08:48 | XMS_ITS | Encounter Summary ---
:1955 Author Organization [facility] Address 1 [place] [address] Phone Care Team Providers Name Role Phone Hallie Clay PT Unavailable Encounter Details Date Type Department Care Team Description 05/05/2021 Hospital Encounter Clinic & Specialty [place] [address] [place] [address] [place] [address] Center Variety Performer apy Hallie Clay, PT [address] [address] Social History Tobacco Use Types [...] Provider: Dr. Alex Mata, MD Yamile Conway, ELECTRICAL CALIBRATOR Current Precautions/Contraindications: At high risk for skin breakdown, s/p flap surgery, current pressure injuries on feet [facility] Manager Primary: no DIAGNOSIS Patient Active Problem List Diagnosis [...] prefer to work is BLANQUITA Brown of [employer]. The vendor is not present during today's evaluation. 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 He has utilized a manual wheelchair as his primary means of mobility since then. He has a significant pressure injury history, including on his sacral area and feet. He received his current MWC through [employer] on 10/06/20. SUBJECTIVE Patient Complaints: I just [...] Function: Randy will cont to use his [facility] and rehab accessories to complete all MRADL's, [...] independently (with hand controls) while seated in [facility]) Does it fold/disassemble for transportation?: Yes Is [...] Flexion Elbow Extension Wrist Flexion Wrist Extension Tobacco Flavorer Using BERNY hand dynamometer Lower Extremity Right MMT Left MMT WFL 0/5 0/5 Hip Flexion Hip Extension Hip Abduction Knee Flexion Knee Extension Dorsiflexion Inversion Eversion Plantar Flexion Great toe extension Normative edge worker strength values for Berny dynamometer for clinical [...] the wheelchair/mobility device?: Yes Wheelchair Management/Training (CPT 37418): 15 min during session(s) Pressure mapping completed [...] Specific Question: Schedule with: Answer: HALLIE CLAY [[id number]] Order Specific Question: Number of Visits patient [...] conditions documented in this encounter Care Teams Forestry Adviser Relationship Specialty Start Date End Date Hallie Clay, PT Physical Therapist Physical Therapy 04/05/21 [address] [place] [address] documented as of this encounter
--- OUTSIDE RECORDS SUMMARY | 2022-04-18 08:48 | XMS_ITS | Encounter Summary ---
:1955 Author Organization [facility] Address [address] [place] [address] Phone Care Team Providers Name Role Phone Provider, Outside Primary Care Provider Unavailable Reason for Visit Reason Onset Date Comments Refill Request 07/05/2016 Encounter Details Date Type Department Care Team Description 07/05/2016 Refill [facility] Urology Clinic Divya Caraballo RN Refill Request [address] [facility], [address] [place], [place] [address] [place] [address] Social History Tobacco Use Types Packs/Day Years [...] NOS documented in this encounter Care Teams Slitter Service And Setter Relationship Specialty Start Date End Date Provider, Outside PCP - General 03/13/09 10/22/18 [place] [address] documented as of this encounter
--- OUTSIDE RECORDS SUMMARY | 2022-04-18 08:48 | XMS_ITS | Encounter Summary ---
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 documented as of this encounter Plan of Treatment Not on filedocumented as of this encounter Visit Diagnoses Diagnosis COVID-19 documented in this encounter
--- OUTSIDE RECORDS SUMMARY | 2022-04-18 08:48 | XMS_ITS | Encounter Summary ---
:1955 Author Organization [facility] Address [address] [place] [address] Phone Care Team Providers Name Role Phone Hallie Clay PT Unavailable Reason for Referral Prior Authorization (Routine) - Closed Specialty Diagnoses / Procedures Referred By Contact Refer red To Contact Physical Therapy / Diagnoses Quadriplegia () At high risk for skin breakdown Impaired mobility Provider, Outside Hallie Clay, PHYSICAL MEDICINE AND Procedures PT TREATMENT PLAN OUTSIDE PROVIDER PT REHAB [place], [place] [id number] [place] [address] Phone: Fax: Referral ID Status Reason Start Date Expiration Date Visits Requ ested Visits Authorized [id number] Closed 05/05/2021 01/20/2022 12 12 FIRM CONSULTANT Reason for Visit Prior Authorization (Routine) - Closed Specialty Diagnoses / Procedures Referred By Contact Refer red To Contact Physical Therapy / Diagnoses Quadriplegia () At high risk for skin breakdown Impaired mobility Provider, Outside Hallie Clay, PHYSICAL MEDICINE AND Procedures PT TREATMENT PLAN OUTSIDE PROVIDER PT REHAB [place], [place] [phone] [place] [address] Phone: Fax: Referral ID Status Reason Start Date Expiration Date Visits Requ ested Visits Authorized [id number] Closed 05/05/2021 01/20/2022 12 12 Encounter Details Date Type Department Care Team Description 07/14/2021 Hospital Encounter Clinic & Specialty Provider, [place] [address] Center Advertising Teacher apHallie Hopkins, PT [address] [address] Social History Tobacco Use Types [...] Signature: Date: 07/14/2021 Date: Please return to: [facility] Physical Therapy [address] [address] RECERTIFICATION SUMMARY New Recertification period: 07/14/21 to [...] Recent Hospitalization:??None?? Referring Provider:?? MD Yamile Alves, SPOT WELDER LINE ?? Current Precautions/Contraindications:?At high risk for skin breakdown, s/p flap surgery, currentpressure injuries on feet [facility] Sales Planning Analyst:?no ?? Patient gave two identifiers for Check 2 for Safety Total Treatment Time: 55 Min ?? Pain: No significant complaints during session ?? S: Pt presents to his PT session in his [facility], independently. Also present: Matthew Ricketts/[employer]. 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 ?? O: [Billable Units/Time] ?? (93105) Wheelchair Management: 55 min Pressure mapping completed [...] up with B UE's for having pressure motor equipment commanding officer placed over, completed with CGA) +Sitting [...] Recommend removing foam sole, and placing nonskid surface/computer information systems instructor bottom instead (lowest height possible) 4) Inside [...] - thank you. 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 Hallie Clay, PT ATP [place] License: #[id number] Pager: [phone] Office: [phone] ? Recertification Assessment of need for continued skilled physical therapy interventions: Patient continues to make steady progress toward short term and retirement goals which have been updated to reflect [...] Specific Question: Schedule with: Answer: HALLIE CLAY [[id number]] Order Specific Question: Number of Visits patient [...] Specific Question: Schedule with: Answer: HALLIE CLAY [[id number]] Order Specific Question: Number of Visits patient should be scheduled for? Answer: 1 Order Specific Question: Modalities and Procedures Answer: Procedures Order Specific Question: Procedure Answer: Functional Activities Order Specific Question: Procedure Answer: Neuromuscular Re-education Order Specific Question: Procedure Answer: Self Care/Home Management/ADL Order Specific Question: Procedure Answer: Wheelchair Management and Training Hallie Clay PT ATP Date [place] License: #[id number] Pager: [phone] Office: [phone] FIRM CONSULTANT documented in this encounter Plan of Treatment Not on filedocumented as of this encounter Visit Diagnoses Diagnosis Quadriplegia () Quadriplegia, unspecified At high risk for skin breakdown Other specified conditions influencing h ealth status Impaired mobility Other ill-defined conditions documented in this encounter Care Teams Geomorphology Teacher Relationship Specialty Start Date End Date Hallie Clay PT Physical Therapist Physical Therapy 04/05/[address] [place] [address] documented as of this encounter
--- OUTSIDE RECORDS SUMMARY | 2022-04-18 08:49 | XMS_ITS | Encounter Summary ---
:1955 Author Organization [facility] Address [address] [place] [address] Phone Care Team Providers Name Role Phone Provider, Outside Primary Care Provider Unavailable Reason for Visit Reason Comments Other Encounter Details Date Type Department Care Team Description 01/17/2012 Telephone [facility] Omar Reyes MD [address] [facility], [address] Research Only [place], [place] [address] Social History Tobacco Use Types [...] Outside Provider Comment: Expects Return Call at: [phone] documented in this encounter Plan of Treatment Not on filedocumented as of this encounter Visit Diagnoses Not on filedocumented in this encounter Care Teams Certified Nurse Practitioner Relationship Specialty Start Date End Date Provider, Outside PCP - General 03/13/09 10/22/18 [place] [address] documented as of this encounter
--- OUTSIDE RECORDS SUMMARY | 2022-04-18 08:49 | XMS_ITS | Encounter Summary ---
:1955 Author Organization [facility] Address [address] [place] [address] Phone Care Team Providers Name Role Phone Provider, Outside Primary Care Provider Unavailable Encounter Details Date Type Department Care Team Description 09/07/2012 Letters(Tab) [facility] Omar Reyes MD [address] [place] [address], [address] Research Only [place], [place] [address] Social History Tobacco Use Types Packs/Day Years Used Date Smoking Tobacco: Former Cigarettes Cigars Smokeless Tobacco: Never Alcohol Use Standard Drinks/Week Comments Yes 3.3 (1 standard drink = 0.6 oz pure alco hol) once in while Sex Assigned at Date Recorded Not on file documented as of this encounter Progress Notes Omar Savage MD - 09/07/2012 7:45 AM CST [facility] [address] [place], [place] [address] September 07, 2012 TO: Micheal Fletcher [id number] [address] [address] RE:MICHEAL FLETCHER MR#:[id number] :1955 Dear Mr. Fletcher: From your recent Urology Clinic visit, your urine culture grew only mixed gram-positive organisms, which are not considered an infection. Please feel free to contact me for questions. Best wishes. Looking forward to seeing you at your next scheduled visit. Sincerely, Omar Savage MD Staff Physician Surgery Service Received in Enginehouse Brakeman: 09/07/2012 07:32 M: 09/07/2012 07:45 cn CS/cn Voice ID: [id number] Document ID: [id number] cc:MICHEAL FLETCHER [id number] [place] [address] ER'S MATE G documented in this encounter Plan of Treatment Not on filedocumented as of this encounter Visit Diagnoses Not on filedocumented in this encounter Care Teams Electrical Experimental Mechanic Relationship Specialty Start Date End Date Provider, Outside PCP - General 03/13/09 10/22/18 [place] [address] documented as of this encounter
--- OUTSIDE RECORDS SUMMARY | 2022-04-18 08:49 | XMS_ITS | Encounter Summary ---
:1955 Author Organization [facility] Address [address] [place] [address] Phone Care Team Providers Name Role Phone Provider, Outside Primary Care Provider Unavailable Reason for Referral Consult/Test/Treat (Routine) - Closed Specialty Diagnoses / Procedures Referred By Contact Refer red To Contact Physical Therapy Diagnoses Decubitus ulcer Sameera Frances MD [address] [place], [place] [address] Referral ID Status Reason Start Date Expiration Date Visits Requ ested Visits Authorized [id number] Closed 01/17/2011 01/18/2012 1 1 Reason for Visit Reason Comments Neurologic Problem Encounter Details Date Type Department Care Team Description 01/17/2011 Office Visit [facility] [place]/Rehab Sameera Frances D ecubitus ulcer Clinic (Primary Dx) [address] [place], [place] [address] [place], [place] [phone] (Wo rk) Social History Tobacco Use Types [...] site documented in this encounter Care Teams Manager Industrial Relationship Specialty Start Date End Date Provider, Outside PCP - General 03/13/09 10/22/18 [place] [address] documented as of this encounter
--- OUTSIDE RECORDS SUMMARY | 2022-04-18 08:49 | XMS_ITS | Encounter Summary ---
:1955 Author Organization [facility] Address [address] [place] [address] Phone Care Team Providers Name Role Phone Provider, Outside Primary Care Provider Unavailable Reason for Visit Reason Onset Date Comments Refill Request 12/17/2013 Propantheline Encounter Details Date Type Department Care Team Description 12/17/2013 Refill [facility] [place] Omar Savage MD Refill Request [facility] (Propantheline) [address] [facility], [address] [place], [place] [address] Social History Tobacco Use Types [...] in this encounter Care Teams Flight Attendant/Inflight Manager Relationship Specialty Start Date End Date Provider, Outside PCP - General 03/13/09 10/22/18 [place] [address] documented as of this encounter
--- OUTSIDE RECORDS SUMMARY | 2022-04-18 08:49 | XMS_ITS | Encounter Summary ---
:1955 Author Organization [facility] Address [address] [place] [address] Phone Care Team Providers Name Role Phone Provider, Outside Primary Care Provider Unavailable Reason for Visit Reason Comments Neurologic Problem pmr Encounter Details Date Type Department Care Team Description 11/01/2010 Office Visit [facility] [place]/Rehab Sameera Frances D ecubitus ulcer, Clinic MD mackey (Primary Dx) [address] [facility] [address] [place], [place] [address] [place], [place] [phone] (Wo rk) Social History Tobacco Use Types [...] CDT Height - - Body Mass Index 04420.15 07/31/2007 3:21 PM ORDER DEPARTMENT SUPERVISOR documented in this encounter Patient Instructions Patient [...] 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
--- OUTSIDE RECORDS SUMMARY | 2022-04-18 08:49 | XMS_ITS | Encounter Summary ---
:1955 [address] [facility] Address [address] [place] [address] Phone Care Team Providers Name Role Phone Provider, Outside Primary Care Provider Unavailable Reason for Visit Reason Onset Date Comments Other 02/05/2016 Encounter Details Date Type Department Care Team Description 02/05/2016 Telephone [facility] U[facility] Clinic Selena Garcia MD plan of care [address] [address] [address] [address] [facility], [address] [place] [address] [place], [place] [phone] Social History Tobacco Use Types Packs/Day Years [...] on filedocumented in this encounter Care Teams Cat Driver Relationship Specialty Start Date End Date Provider, Outside PCP - General 03/13/09 10/22/18 [place] [address] documented as of this encounter
--- OUTSIDE RECORDS SUMMARY | 2022-04-18 08:49 | XMS_ITS | Encounter Summary ---
:1955 Author Organization [facility] Address [address] [facility] [place] [address] Phone Care Team Providers Name Role Phone Provider, Outside Primary Care Provider Unavailable Reason for Visit Reason Onset Date Comments Call Back 11/08/2010 Encounter Details Date Type Department Care Team Description 11/08/2010 Telephone [facility] Neurology Clini c Vickie Odell RN Call Back [address] [facility] [address] [address] [place], [place] [address] Social History Tobacco Use Types [...] that was to call [employer] [phone] to order supplieslast after last visit 11-01-10. [...] Outside Provider Comment:na Expects Return Call at: [phone] documented in this encounter Plan of Treatment Not on filedocumented as of this encounter Visit Diagnoses Not on filedocumented in this encounter Care Teams Exceptional Student Education Teacher Relationship Specialty Start Date End Date Provider, Outside PCP - General 03/13/09 10/22/18 [place] [address] documented as of this encounter
--- OUTSIDE RECORDS SUMMARY | 2022-04-18 08:49 | XMS_ITS | Encounter Summary ---
:1955 Author Organization [facility] Address [address] [place] [address] Phone Care Team Providers Name Role Phone Provider, Outside Primary Care Provider Unavailable Reason for Visit Reason Onset Date Comments Refill Request 10/22/2014 Encounter Details Date Type Department Care Team Description 10/22/2014 Refill [facility] Urology Clinic Tree Vaughan, Refill Request [address] [facility], [address] [place], [place] [address] [address] [address] [place], [place] [phone] (Wo rk) Social History Tobacco Use Types [...] NOS documented in this encounter Care Teams Paint And Table Edger Relationship Specialty Start Date End Date Provider, Outside PCP - General 03/13/09 10/22/18 [place] [address] documented as of this encounter
--- OUTSIDE RECORDS SUMMARY | 2022-04-18 08:49 | XMS_ITS | Encounter Summary ---
:1955 Author Organization [facility] Address [address] [place] [address] Phone Care Team Providers Name Role Phone Provider, Outside Primary Care Provider Unavailable Reason for Visit Reason Comments Other Encounter Details Date Type Department Care Team Description 02/20/2013 Telephone [facility] Omar Reyes MD [address] [facility], [address] Research Only [place], [place] [address] Social History Tobacco Use Types [...] Hussein Giron to refill Pro-Banthine. VORB Notified [facility] pharmacy at [phone]. Telephone Encounter - Danna lAvarez RN - 02/20/2013 10:38 AM CDT Message [...] verbal refill request for Propantheline. Please call [phone] Expects Return Call at: ------ documented in this encounter Plan of Treatment Not on filedocumented as of this encounter Visit Diagnoses Not on filedocumented in this encounter Care Teams Portfolio Accountant Relationship Specialty Start Date End Date Provider, Outside PCP - General 03/13/09 10/22/18 [place] [address] documented as of this encounter
--- OUTSIDE RECORDS SUMMARY | 2022-04-18 08:49 | XMS_ITS | Encounter Summary ---
:1955 Author Organization [facility] Address [address] [place] [address] Phone Care Team Providers Name Role Phone Provider, Outside Primary Care Provider Unavailable Reason for Visit Reason Comments Follow-up Encounter Details Date Type Department Care Team Description 09/03/2012 Office Visit [facility] Urology Clinic Pooja Krueger MD [address] [facility] [address] [place], [place] [id number] Neurogenic bladder [place] Omar Savage MD Research Only (Primary Dx) [address], [address] [place], [place] [address] Social History Tobacco Use Types [...] Comments Blood Pressure 112/64 09/03/2012 1:52 PM TOOL STRAIGHTENER Pulse 68 09/03/2012 1:52 PM TOOL STRAIGHTENER Temperature - - Respiratory Rate - - Oxygen Saturation - - Inhaled Oxygen Concentration - - Weight - - Height - - Body Mass Index - - documented in this encounter Progress Notes Omar Savage MD - 09/04/2012 8:32 PM CST [facility] [address] [facility], [address] [place] [address] (fax) [facility] [id number] PATIENT: MICHEAL RENE : 1955 DATE: 09/03/2012 [...] MD Staff Physician Surgery Service Received in Parachute Panel Joiner: 09/04/2012 12:20 M: 09/04/2012 20:32 [facility]/ Voice ID: [id number] Document ID: [id number] STRAIGHTENER Omar Savage MD - 09/04/2012 12:19 PM CST This office note has been dictated. STRAIGHTENER documented in this encounter Plan of Treatment Not on filedocumented as of this encounter Procedures Procedure Name Priority Date/Time Associated Diagnosis Comme nts URINE CULTURE Routine 09/03/2012 2:22 PM Neurogenic bladder Re sults for this TOOL STRAIGHTENER procedure are i n the results section. URINALYSIS,TOTAL Routine 09/03/2012 2:22 PM Neurogenic bladder Results for this TOOL STRAIGHTENER procedure are i n the results section. documented in this encounter Results URINE CULTURE (09/03/2012 2:22 PM TOOL STRAIGHTENER) [facility] Method Time Signature Urine Cult [facility] ? PROCEDURE: MB Urine Culture ?SOURCE: Urine Midstream ?COLLECTED: 09/03/2012 14:22 ? BODY SITE: ?FREE TEXT SOURCE: ?STARTED: 09/03/2012 15:35 ? FINAL REPORT Final Report Verified:09/05/2012 13:06 50,000 - 100,000 organisms/ml Mixed gram positive arthur. No further work-up. Specimen Anatomical Collection Method Collection Time Receive d Time (Source) Location / / Volume Laterality Urine Midstream. 09/03/2012 2:22 PM 09/03 3:34 (Urine) TOOL STRAIGHTENER PM TOOL STRAIGHTENER Omar Savage MD LAB MICROBIOLOGY Performing Organization Address City/State/ZIP Code Phon e Number [facility] [place] [address] (ABNORMAL) URINALYSIS, TOTAL (09/03/2012 2:22 PM TOOL STRAIGHTENER) athologist Signature Color YELLOW YELLOW [facility] Appearance CLEAR CLEAR [facility] Urine Glucose NEGATIVE NEGATIVE [facility] Bili UA NEGATIVE NEGATIVE [facility] Comment: Confirmatory test not available . Ketones NEGATIVE NEGATIVE [facility] Specific [place] 1.016 1.003 - 1.030 [facility] Blood Ur NEGATIVE Neg-Trace [facility] PH Urine 6.5 5.0 - 7.0 [facility] Protein Ur NEGATIVE Neg-Trace [facility] Urobilinogen 1.0 0.2 - 1.0 EU/dL [facility] Nitrite Ur NEGATIVE NEGATIVE [facility] Leuk Est SMALL (A) Neg-Trace [facility] WBC Ur 6-20 (A) 0 - 5 perHPF [facility] RBC Ur 0-5 0 - 5 perHPF [facility] SQ EPITH 2+ 1+ [facility] Specimen Anatomical Collection Method Collection Time Receive d Time (Source) Location / / Volume Laterality Urine 09/03/2012 2:22 PM 3 2:51 TOOL STRAIGHTENER PM TOOL STRAIGHTENER Omar Savage MD LABORATORY Performing Organization Address City/State/ZIP Code Phon e Number [facility] [place] [address] documented in this encounter Visit Diagnoses Diagnosis Neurogenic bladder - Primary Neurogenic bladder, NOS documented in this encounter Care Teams Button Pusher Relationship Specialty Start Date End Date Provider, Outside PCP - General 03/13/09 10/22/18 [place] [address] documented as of this encounter
--- OUTSIDE RECORDS SUMMARY | 2022-04-18 08:49 | XMS_ITS | Encounter Summary ---
:1955 Author Organization [facility] Address [address] [place] [address] Phone Care Team Providers Name Role Phone Provider, Outside Primary Care Provider Unavailable Encounter Details Date Type Department Care Team Description 11/15/2010 Office Visit [facility] Phys Med/Rehab Sameera Frances D ecubitus ulcer Clinic (Primary Dx) [address] [facility] [address] [place], [place] [address] [place], [place] [phone] (Wo rk) Social History Tobacco Use Types [...] Frances MD - 11/16/2010 10:[place] [address] MEDREC#: [id number] PATIENT: MICHEAL RENE : 1955 DATE: 11/15/2010 [...] Medicine and Rehabilitation Service Received in Senior Cyber Security Analyst: 11/15/2010 12:55 M: 11/16/2010 02:37 bj CLR/bj Voice ID: [id number] Document ID: [id number] cc:[place] [address] Sameera Frances MD - 11/15/2010 12:44 PM CDT See dictation Sameera Frances MD, 11/15/2010 12:44 PM documented in this encounter Plan of Treatment Not on filedocumented as of this encounter Visit Diagnoses Diagnosis Decubitus ulcer - Primary Pressure ulcer, unspecified site documented in this encounter Care Teams Destination Imagination Coordinator Relationship Specialty Start Date End Date Provider, Outside PCP - General 03/13/09 10/22/18 [place] [address] documented as of this encounter
--- OUTSIDE RECORDS SUMMARY | 2022-04-18 08:49 | XMS_ITS | Encounter Summary ---
:[address] [facility] Address [address] [place] [address] Phone Care Team Providers Name Role Phone Provider, Outside Primary Care Provider Unavailable Reason for Visit Reason Onset Date Comments Refill Request 09/05/2013 macrodantin Encounter Details Date Type Department Care Team Description 09/05/2013 Refill [facility] Urology Clinic Omar Savage MD Refill Request [facility] Only (macrodantin) [address], [address] [place], [place] [address] Social History Tobacco Use Types [...] Savage, med send to to co sign. NIZER documented in this encounter Plan of Treatment Not on filedocumented as of this encounter Visit Diagnoses Diagnosis Neurogenic bladder - Primary Neurogenic bladder, NOS documented in this encounter Care Teams Pigment Processor Relationship Specialty Start Date End Date Provider, Outside PCP - General 03/13/09 10/22/18 [place] [address] documented as of this encounter
--- OUTSIDE RECORDS SUMMARY | 2022-04-18 08:49 | XMS_ITS | Encounter Summary ---
:1955 Author Organization [facility] Address [address] [place] [address] Phone Care Team Providers Name Role Phone Provider, Outside Primary Care Provider Unavailable Reason for Visit Reason Comments Bladder Problem Encounter Details Date Type Department Care Team Description 01/26/2015 Office Visit [facility] [place] Monty Garcia Neur ogenic bladder Yordy FALCON (Primary Dx) [address] [facility] [address] [place], [place] [id number] Social History Tobacco Use Types Packs/Day Years [...] - 01/26/2015 4:13 PM CDT [facility] CL[facility]IC [facility]: NEW PATIENT/CONSULT VISIT Khanh Rene : 1955 [...] NOS documented in this encounter Care Teams Denture Model Maker Relationship Specialty Start Date End Date Provider, Outside PCP - General 03/13/09 10/22/18 [place] [address] documented as of this encounter
--- OUTSIDE RECORDS SUMMARY | 2022-04-18 08:49 | XMS_ITS | Encounter Summary ---
:1955 Author Organization [facility] Address [address] [place] [address] Phone Care Team Providers Name Role Phone Provider, Outside Primary Care Provider Unavailable Encounter Details Date Type Department Care Team Description 02/05/2016 Orders Only [facility] U[facility] Monty Garcia, Neur ogenic bladder Yordy FALCON (Primary Dx) [address], [address] [facility] [address], [place] [phone] Social History Tobacco Use Types Packs/Day Years [...] NOS documented in this encounter Care Teams Litigation Support Analyst Relationship Specialty Start Date End Date Provider, Outside PCP - General 03/13/09 10/22/18 [place] [address] documented as of this encounter
--- OUTSIDE RECORDS SUMMARY | 2022-04-18 08:49 | XMS_ITS | Encounter Summary ---
:1955 Author Organization [facility] Address [address] [place] [address] Phone Care Team Providers Name Role Phone Provider, Outside Primary Care Provider Unavailable Reason for Visit Reason Comments Neurologic Problem pmr Encounter Details Date Type Department Care Team Description 12/27/2010 Office Visit [facility] [place]/Rehab Abhinav Chavez MD NEED ADDRESS Ulcer () (Primary Clinic Sameera Frances MD [address] [place] [address] Dx) [address] [place], [place] [address] Social History Tobacco Use Types [...] site documented in this encounter Care Teams Story Teller Relationship Specialty Start Date End Date Provider, Outside PCP - General 03/13/09 10/22/18 [place] [address] documented as of this encounter
--- OUTSIDE RECORDS SUMMARY | 2022-04-18 08:49 | XMS_ITS | Encounter Summary ---
:1955 Author Organization [facility] Address [address] [place] [address] Phone Care Team Providers Name Role Phone Provider, Outside Primary Care Provider Unavailable Reason for Visit Reason Comments Follow-up Encounter Details Date Type Department Care Team Description 02/14/2011 Office Visit [facility] Phys Med/Rehab Sameera Frances D ecubitus ulcer Clinic (Primary Dx) [address] [facility] [address] [place], [place] [address] [place], [place] [phone] (Wo rk) Social History Tobacco Use Types [...] site documented in this encounter Care Teams Try Out Person Relationship Specialty Start Date End Date Provider, Outside PCP - General 03/13/09 10/22/18 [place] [address] documented as of this encounter
--- OUTSIDE RECORDS SUMMARY | 2022-04-18 08:50 | XMS_ITS | Encounter Summary ---
:1955 Author Organization [facility] Address [address] [place] [address] Phone Care Team Providers Name Role Phone Provider, Outside Primary Care Provider Unavailable Encounter Details Date Type Department Care Team Description 05/17/2010 Letters(Tab) [facility] Omar Savage MD [address] [place] [address], [address] Research Only [place] [address] Social History Tobacco Use Types Packs/Day Years Used Date Smoking Tobacco: Never Alcohol Use Standard Drinks/Week Comments Yes 3.3 (1 standard drink = 0.6 oz pure alco hol) Sex Assigned at Date Recorded Not on file documented as of this encounter Progress Notes Omar Savage MD - 05/18/2010 6:15 AM CDT [facility] [address] [place] [address] May 17, 2010 TO: Micheal Rene [address] [facility] [place] [address] RE:MICHEAL RENE MR#:[id number] :1955 Dear Mr. Rene: From your recent urology clinic visit, the renal ultrasound that was performed does not show any evidence of kidney abnormalities. There is no dilation, no hydronephrosis or stones noted. Best wishes. Look forward to seeing you in 1 year. Please feel free to contact me for questions. Sincerely, Omar Savage MD Staff Physician Surgery Service Received in Appraiser Land: 05/17/2010 21:18 M: 05/18/2010 03:15 javon CS/javon Voice ID: [id number] Document ID: [id number] cc:Micheal Rene [address] [place] [phone] documented in this encounter Plan of Treatment Not on filedocumented as of this encounter Visit Diagnoses Not on filedocumented in this encounter Care Teams Energy Management Specialist Relationship Specialty Start Date End Date Provider, Outside PCP - General 03/13/09 10/22/18 [place] [address] documented as of this encounter
--- OUTSIDE RECORDS SUMMARY | 2022-04-18 08:50 | XMS_ITS | Encounter Summary ---
:1955 Author Organization [facility] Address [address] [place] [address] Phone Care Team Providers Name Role Phone Provider, Outside Primary Care Provider Unavailable Reason for Visit Reason Comments Follow-up Encounter Details Date Type Department Care Team Description 09/24/2010 Office Visit [facility] Plastic Surg DaysiBubba Veronica us ulcer, stage Clinic MD Valery IV () (Primary Dx) [address] [facility] [address]5.620 Mail Code P5 [place], [place] [address] [place], [place] [phone] [address] Social History Tobacco Use Types Packs/Day Years Used Date Smoking Tobacco: Never Smokeless Tobacco: Never Alcohol Use Standard Drinks/Week Comments Yes 3.3 (1 standard drink = 0.6 oz pure alco hol) once in while Sex Assigned at Date Recorded Not on file documented as of this encounter Last Filed Vital Signs Vital Sign Reading Time Taken Comments Blood Pressure 107/73 09/24/2010 10:33 AM MEDICAL RESEARCH ASSOCIATE Pulse 87 09/24/2010 10:33 AM MEDICAL RESEARCH ASSOCIATE Temperature 36.8 ??C (98.2 ??F) 09/24/2010 10:33 AM MEDICAL RESEARCH ASSOCIATE Respiratory Rate - - Oxygen Saturation - [...] of infection, please contact the Surgery clinic [phone]: redness, warmth, swelling, drainage, pain, and/or fever over 100 degrees. CAL RESEARCH ASSOCIATE documented in this encounter Progress Notes Mari Odell RN - 09/24/2010 2:45 PM CST Wound care D: Here for wound care. Location: coccyx A: Exam per provider. Wound cleansed with: technicare, H2O and rinsed. Dressing applied: and wet to dry with 1/2 packing and 2x2's with Island dressing. R: Patient tolerated procedure well. P: As ordered by provider. CAL RESEARCH ASSOCIATE Syl Yanes MD - 09/24/2010 11:21 AM [...] has received the special cushion from the [facility] which is supposed to relieve pressure from that area. He does have another apptset up with Soumya at the [facility] to complete the mapping to ensure [...] documented. Bubba Tavarez MD, 09/25/2010 9:26 AM CAL RESEARCH ASSOCIATE documented in this encounter Plan of Treatment Not on filedocumented as of this encounter Visit Diagnoses Diagnosis Decubitus ulcer, stage IV () - Primary Pressure ulcer, unspecified site documented in this encounter Care Teams Crater And Packer Relationship Specialty Start Date End Date Provider, Outside PCP - General 03/13/09 10/22/18 [place] [address] documented as of this encounter
--- OUTSIDE RECORDS SUMMARY | 2022-04-18 08:50 | XMS_ITS | Encounter Summary ---
:1955 Author Organization [facility] Address [address] [place] [address] Phone Care Team Providers Name Role Phone Provider, Outside Primary Care Provider Unavailable Reason for Visit Reason Comments Follow-up 13 months follow up visit [facility] Dr Frances HFA Monday PM&R Clinic for DX of C7 Spinal Cord Injury Encounter Details Date Type Department Care Team Description 04/20/2010 Office Visit HFA Neuromuscular Sameera Frances Don plegia () Clinic MD Valery (Primary Dx) [address], [address] [place] [address] Mail Code P5 [place], [place] [address] [place], [place] [phone] Social History Tobacco Use Types Packs/Day Years [...] Frances for: 1) Wheelchair repair/s. Faxed to [facility] ([phone]) Referral to [facility]) Formal Wheelchair and wheeled mobility clinic faxedto scheduling to call Micheal to get scheduled ([phone]) Blanca Ziegler RN documented in this encounter Progress Notes Sameera Frances MD - 05/13/2010 3:35 PM CDT [facility] [address] [facility], [address] [place] [address] (fax) MEDREC#: [id number] PATIENT: MICHEAL FLETCHER : 1955 DATE: 04/20/2010 NEUROMUSCULAR PHYSICAL MEDICINE NOTE HISTORY OF PRESENT ILLNESS: Micheal Fletcher is a 55-year-old gentleman with a C7 [employer] B spinal cord [...] be broken as far the spokes. The nnel-th-eypv stability is poor. The back of the [...] his wheelchair and recommended he see the [facility] for a mapping of his buttocks and a more complete evaluation of his wheelchair. I do not think we need any changes in medications for spasticity. Sameera Frances MD Staff Physician Physical Medicine and Rehabilitation Service Received in [employer] Instructor: 05/11/2010 20:55 M: 05/13/2010 10:09 ms CLR/ms Voice ID: [id number] Document ID: [id number] cc:[place] [address] Sameera Frances MD - 04/20/2010 11:01 AM [...] unspecified documented in this encounter Care Teams System Safety Manager Relationship Specialty Start Date End Date Provider, Outside PCP - General 03/13/09 10/22/18 [place] [address] documented as of this encounter
--- OUTSIDE RECORDS SUMMARY | 2022-04-18 08:50 | XMS_ITS | Encounter Summary ---
:1955 Author Organization [facility] Address [address] [place] [address] Phone Care Team Providers Name Role Phone Provider, Outside Primary Care Provider Unavailable Reason for Visit Reason Onset Date Comments Supplies 09/17/2010 Encounter Details Date Type Department Care Team Description 09/17/2010 Telephone [facility] Surgery Clinic Alka Jade RN Supplies [address] [place] [address] [place], [place] [address] Social History Tobacco Use Types [...] for supply list to be faxed to [facility] Shwetha Martin @ [phone]. Pt was seen today by Dr Tavarez and wet to dry dressing was ordered. Pt has a f/u appt scheduled on 09/24/[address] Tavarez. DERRICK OPERATOR Telephone Encounter - Alka Jade RN [...] Provider Comment: Expects Return Call at: pt [phone] DERRICK OPERATOR documented in this encounter Plan of Treatment Not on filedocumented as of this encounter Visit Diagnoses Not on filedocumented in this encounter Care Teams Safety Tech Relationship Specialty Start Date End Date Provider, Outside PCP - General 03/13/09 10/22/18 [place] [address] documented as of this encounter
--- OUTSIDE RECORDS SUMMARY | 2022-04-18 08:50 | XMS_ITS | Encounter Summary ---
:1955 Author Organization [facility] Address [address] [place] [address] Phone Care Team Providers Name Role Phone Provider, Outside Primary Care Provider Unavailable Reason for Visit Reason Onset Date Comments Call Back 08/30/2010 Encounter Details Date Type Department Care Team Description 08/30/2010 Telephone HFA Multispecialty Varsha Knight RN Call Back [address], [address] [place]is[place]ial[place], [place] [address] [phone] [place] [address] (Wo rk) Social History Tobacco Use Types Packs/Day Years Used Date Smoking Tobacco: Never Alcohol Use Standard Drinks/Week Comments Yes 3.3 (1 standard drink = 0.6 oz pure alco hol) Sex Assigned at Date Recorded Not on file documented as of this encounter Miscellaneous Notes Telephone Encounter - Varsha Knight RN - 08/30/2010 4:23 PM PRE PRESS OPERATOR Spoke with patient & let him know that Blanca Ziegler was working on this (see her telephone encounter from earlier today). Pt states he is using Duoderm for this pressure sore but thinks it may need other intervention. Let him know our office would be in touch soon regarding this appt. 08/31/10 830 AM. I called and talked to Khanh ([phone]) he is a Dr Frances Quadriplegia patient and he does have a open sore on his bottom, he did call scheduling at [facility] ([phone])and could not get in to see Dr Frances in her PM&R Clinic until September. I informed Khanh that I will route this phone message to Dr Frances plus I will page her to try to talk to her about Khanh. Blanca Ziegler RN PRESS OPERATOR documented in this encounter Plan of Treatment Not on filedocumented as of this encounter Visit Diagnoses Not on filedocumented in this encounter Care Teams Line Cook Relationship Specialty Start Date End Date Provider, Outside PCP - General 03/13/09 10/22/18 [place] [address] documented as of this encounter
--- OUTSIDE RECORDS SUMMARY | 2022-04-18 08:50 | XMS_ITS | Encounter Summary ---
:1955 Author Organization [facility] Address [address] [place] [address] Phone Care Team Providers Name Role Phone Provider, Outside Primary Care Provider Unavailable Encounter Details Date Type Department Care Team Description 08/30/2010 Telephone [facility] Physical Therap y Reece Ziegler, [place] [address] [facility] [address] [place] [address] Social History Tobacco Use Types Packs/Day Years [...] 08/30/2010 11:12 AM To: Neurology Team Pool [facility] ----- Message ----- From: Nola Espino Sent: 08/27/2010 1:52 PM To: Neurology Charge Rn Pool Patient: Khanh Rene : 1955 Called to schedule an appointment with provider:Dr. Frances No appointments available: with preferred provider.. Date and time requested: caryn Reason for visit: Pt has a pressure sore, and needs a FU appt Phone number for return call: [phone] Monday08/30/10. Khanh Rene will need to [facility] at [phone] to schedule a follow up visit with Dr Frances in her PM&R Clinic. We will call Khanh and inform him of this. Reece Ziegler RN ORT PLANNER documented in this encounter Plan of Treatment Not on filedocumented as of this encounter Visit Diagnoses Not on filedocumented in this encounter Care Teams Wood Tool Maker Relationship Specialty Start Date End Date Provider, Outside PCP - General 03/13/09 10/22/18 [place] [address] documented as of this encounter
--- OUTSIDE RECORDS SUMMARY | 2022-04-18 08:50 | XMS_ITS | Encounter Summary ---
:1955 Author Organization [facility] Address [address] [place] [address] Phone Care Team Providers Name Role Phone Provider, Outside Primary Care Provider Unavailable Encounter Details Date Type Department Care Team Description 09/13/2010 Notes/Trans HFA ALS Clinic Sameera Frances MD [address] [facility] Professional Mail Code [address] [address] [place] [address] [phone] Social History Tobacco Use Types Packs/Day Years Used Date Smoking Tobacco: Never Alcohol Use Standard Drinks/Week Comments Yes 3.3 (1 standard drink = 0.6 oz pure alco hol) Sex Assigned at Date Recorded Not on file documented as of this encounter Progress Notes Sameera Frances MD - 09/16/2010 12:35 [place] [address] [facility]#: [id number] PATIENT: MICHEAL RENE : 1955 DATE: 09/13/2010 [...] Physical Medicine and Rehabilitation Service Received in Respiratory Care Assistant: 09/13/2010 15:26 M: 09/14/2010 09:05 [facility] HOMA/srikanth Voice ID: [id number] Document ID: [id number] AL COMPENSATION MANAGER documented in this encounter Plan of Treatment Not on filedocumented as of this encounter Visit Diagnoses Not on filedocumented in this encounter Care Teams Debrander Relationship Specialty Start Date End Date Provider, Outside PCP - General 03/13/09 10/22/18 [place] [address] documented as of this encounter
--- OUTSIDE RECORDS SUMMARY | 2022-04-18 08:50 | XMS_ITS | Encounter Summary ---
:1955 Author Organization [facility] Address [address] [place] [address] Phone Care Team Providers Name Role Phone Provider, Outside Primary Care Provider Unavailable Reason for Visit Reason Onset Date Comments Call Back 09/30/2010 Encounter Details Date Type Department Care Team Description 09/30/2010 Nurse Triage [facility] Contact Center Quang Toscano, Call Back [facility] [id number] [place] [address] Social History Tobacco Use Types Packs/Day [...] requests that she call back again at [phone]. R: routing to CE TECHNICIAN Telephone Encounter - Quang Toscano RN - 09/30/2010 4:24 PM OFFICE TECHNICIAN Message copied by QUANG TOSCANO on MonSep 30, 2010 4:24 PM ------ Message from: SELMA SCHMITT Created: MonSep 30, 2010 4:20 PM >> SELMA SCHMITT 09/30/2010 04:20 PM Patient: Khanh Rene : 1955 Caller would like to speak to a nurse regarding a medical condition. Symptoms: PT IS RETURNING CALL BACK FRON DR CHRISTIANO TINJAERO IN NEUROMUSCULAR Duration: NA Primary Care Physician: CHRISTIANO TINAJERO Treating Physician: CHRISTIANO TINAJERO Phone number for return call: [phone] CE TECHNICIAN documented in this encounter Plan of Treatment Not on filedocumented as of this encounter Visit Diagnoses Not on filedocumented in this encounter Care Teams Steam Blocker Relationship Specialty Start Date End Date Provider, Outside PCP - General 03/13/09 10/22/18 [place] [address] documented as of this encounter
--- OUTSIDE RECORDS SUMMARY | 2022-04-18 08:50 | XMS_ITS | Encounter Summary ---
:1955 Author Organization [facility] Address [address] [facility] [place] [place] [address] Phone Care Team Providers Name Role Phone Provider, Outside Primary Care Provider Unavailable Reason for Visit Reason Onset Date Comments Call Back 09/06/2010 Encounter Details Date Type Department Care Team Description 09/06/2010 Telephone [facility] Neurology Clini c Vickie Odell RN Call Back [address] [facility] [address] [address] [place], [place] [address] Social History Tobacco Use Types [...] states that he does not have a primary care nurse in [facility]. R: Patient quadriplegic states that he would like to speak directly with . Routing to E TESTER Telephone Encounter - Vickie Odell RN - 09/06/2010 1:59 PM CST Message copied by VICKIE ODELL on MonSep 06, 2010 1:59 PM ------ Message from: BRANDEE TALAMANTES Created: MonSep 06, 2010 1:52 PM 09/06/2010 1:53 PM Khanh Edgard @ADRIANA@ 1955 Questions regarding a referral for a pressure sore from Dr Frances. Best number to call patient back: [phone]. Best time of day to reach patient:anytime. E TESTER documented in this encounter Plan of Treatment Not on filedocumented as of this encounter Visit Diagnoses Not on filedocumented in this encounter Care Teams Inspector Filter Tip Relationship Specialty Start Date End Date Provider, Outside PCP - General 03/13/09 10/22/18 [place] [address] documented as of this encounter
--- OUTSIDE RECORDS SUMMARY | 2022-04-18 08:50 | XMS_ITS | Encounter Summary ---
:[address] [facility] Address [address] [facility] [place] [address] Phone Care Team Providers Name Role Phone Provider, Outside Primary Care Provider Unavailable Encounter Details Date Type Department Care Team Description 09/17/2010 Hospital Encounter [facility] Arnold Vora [address] MD [place], [place] [address] 702 [facility] [phone] [place], [place] [id number] Social History Tobacco Use Types Packs/Day Years [...] () Results for this LAT HIP AM RESTORATIVE CARE TECHNICIAN procedure are i n the results section. documented in this encounter Results (ABNORMAL) XR PELVIS WITH BOTH LAT HIP (09/17/2010 10:28 AM RESTORATIVE CARE TECHNICIAN) Anatomical Region Laterality Modality Pelvis Computed Radiography Specimen (Source) Anatomical Collection Method Collection Time Re ceived Time Location / / Volume Laterality 09/17/2010 10:28 AM RESTORATIVE CARE TECHNICIAN Impressions 09/17/2010 10:35 AM RESTORATIVE CARE TECHNICIAN Impression: Severe osteoarthritis involving both hips with postsurgical fixation of a left hip fracture. There is no cortical irregularity to suggest osteomyelitis. This however lucency surrounding a fe moral IM nail. Three-phase bone scan may be beneficial to assess for infection surrounding the nail if clinically indicated. Reading Radiologist: Khanh Brunson Narrative 09/17/2010 10:35 AM RESTORATIVE CARE TECHNICIAN History: Rule out osteo. Comparison: None. Findings [...] unspecified documented in this encounter Care Teams Public Service Representative Relationship Specialty Start Date End Date Provider, Outside PCP - General 03/13/09 10/22/18 [place] [address] documented as of this encounter
--- OUTSIDE RECORDS SUMMARY | 2022-04-18 08:50 | XMS_ITS | Encounter Summary ---
:1955 Author Organization [facility] Address [address] [place], [place] [address]. [place] [address] Phone Care Team Providers Name Role Phone Provider, Outside Primary Care Provider Unavailable Encounter Details Date Type Department Care Team Description 05/13/2010 Hospital Encounter [facility] Ultrasound Omar Savage MD [address] Research Only [address] [place], [place] [address] Social History Tobacco Use Types [...] NOS documented in this encounter Care Teams Assistant Football Coach Relationship Specialty Start Date End Date Provider, Outside PCP - General 03/13/09 10/22/18 [place] [address] documented as of this encounter
--- OUTSIDE RECORDS SUMMARY | 2022-04-18 08:50 | XMS_ITS | Encounter Summary ---
:1955 Author Organization [facility] Address [address] [place] [address] Phone Care Team Providers Name Role Phone Provider, Outside Primary Care Provider Unavailable Reason for Referral Consult/Test/Treat (Routine) - Closed Specialty Diagnoses / Procedures Referred By Contact Refer red To Contact Plastic Surgery / Diagnoses Ulcer Sameera Frances, PLASTIC SURGERY MD [address] Mail Code [address] [place], [place] [address] Referral ID Status Reason Start Date Expiration Date Visits Requ ested Visits Authorized [id number] Closed 09/13/2010 09/13/2011 1 1 SHOW HOST Encounter Details Date Type Department Care Team Description 09/13/2010 Orders Only [facility] Phys Med/Rehab Sameera Frances U lcer () (Primary Clinic MD Dx) [address] [employer] Mail Code [address] [place], [place] [address] [place], [place] [phone] (Wo rk) Social History Tobacco Use Types [...] site documented in this encounter Care Teams Pattern Maker Relationship Specialty Start Date End Date Provider, Outside PCP - General 03/13/09 10/22/18 [place] [address] documented as of this encounter
--- OUTSIDE RECORDS SUMMARY | 2022-04-18 08:50 | XMS_ITS | Encounter Summary ---
:1955 Author Organization [facility] Address [address] [place] [address] Phone Care Team Providers Name Role Phone Provider, Outside Primary Care Provider Unavailable Reason for Visit Reason Onset Date Comments Supplies 09/20/2010 Encounter Details Date Type Department Care Team Description 09/20/2010 Telephone [facility] Surgery Clinic Alka Jade RN Supplies [address] [place] [address] [place], [place] [address] Social History Tobacco Use Types [...] 10:02 AM CST Verified that [facility] pharmacy received fax for supplies on 09/17/10. SERVICING REPRESENTATIVE Telephone Encounter - Alka Jade RN - [...] 1955 (home) Insurance: PCP: Outside Provider Comment: [facility] pharmacy [phone] Prescribed supplies Expects Return Call at: home see above SERVICING REPRESENTATIVE documented in this encounter Plan of Treatment Not on filedocumented as of this encounter Visit Diagnoses Not on filedocumented in this encounter Care Teams Glove Presser Relationship Specialty Start Date End Date Provider, Outside PCP - General 03/13/09 10/22/18 [place] [address] documented as of this encounter
--- OUTSIDE RECORDS SUMMARY | 2022-04-18 08:50 | XMS_ITS | Encounter Summary ---
:1955 Author Organization [facility] Address [address] [place] [address] Phone Care Team Providers Name Role Phone Provider, Outside Primary Care Provider Unavailable Encounter Details Date Type Department Care Team Description 10/19/2010 Refill HFA Urology Omar Savage MD [address] [facility], [address] Research Only [place], [place] [address] Social History Tobacco Use Types [...] Insurance: PCP: Outside Provider Comment: Please call [facility] pharmacy regarding getting an alternative for his medication Propantheline. Please call Ange Valdivia Return Call at: [phone] documented in this encounter Plan of Treatment Not on filedocumented as of this encounter Visit Diagnoses Diagnosis Neurogenic bladder - Primary Neurogenic bladder, NOS documented in this encounter Care Teams Regional Ehs Manager Relationship Specialty Start Date End Date Provider, Outside PCP - General 03/13/09 10/22/18 [place] [address] documented as of this encounter
--- OUTSIDE RECORDS SUMMARY | 2022-04-18 08:50 | XMS_ITS | Encounter Summary ---
:1955 Author Organization [facility] Address [address] [place] [address] Phone Care Team Providers Name Role Phone [...] on filedocumented in this encounter Care Teams Construction Flagger Relationship Specialty Start Date End Date Provider, Outside PCP - General 03/13/09 10/22/18 [place] [address] documented as of this encounter
--- OUTSIDE RECORDS SUMMARY | 2022-04-18 08:51 | XMS_ITS | Encounter Summary ---
:1955 Author Organization [facility] Address [address] [place] [address] Phone Care Team Providers Name Role Phone Provider, Outside Primary Care Provider Unavailable Reason for Visit Reason Comments Follow-up 19 months foolow up visit [facility] Dr Yvrose Mukherjee [facility] Dx C7 Spinal Cord Injury Encounter Details Date Type Department Care Team Description 03/13/2009 Office Visit HFA Neuromuscular Sameera Frances Don plegia () Clinic MD Valery (Primary Dx) [address], [address] [place] [address] Mail Code P5 [place], [place] [address] [place], [place] [phone] Social History Tobacco Use Types Packs/Day [...] visit with Dr Frances A [facility] ([phone]) Rx/orders given to Micheal by Dr Frances for Wheelchair lumbar support and wheelchair repairs, bilateral arm rests, replace sling back Blanca Ziegler RN documented in this encounter Progress Notes Sameera Frances MD - 03/26/2009 10:04 AM CDT [facility] [address] [facility] [place] [address] (fax) [facility]#: [id number] PATIENT: MICHEAL FLETCHER : 1955 DATE: 03/13/2009 NEUROMUSCULAR PHYSICAL MEDICINE NOTE HISTORY OF PRESENT ILLNESS: Micheal Fletcher is a 54-year-old gentleman with a C7 [place] Sp[employer] Injury [employer] (AUDREY) B spinal cord [...] that eventually led to pacemaker placement at [facility]. He said that his angiogram [...] discontinues that activity. He is using a Malang Studioie wheelchair with a Joby cushion. It is [...] a slow healing coccyx ulcer at the [facility]. We have discussed whether he should go [...] that complication. Sameera Frances MD Received in Head Of Cytogenetics: 03/20/2009 12:28:50 (M: 03/24/2009 03:22:10 golden) HOMA/jlb Voice ID: [id number] Document ID: [id number] cc: Abida Pulliam DO, [facility], [address] [place] [id number] Sameera Frances MD - 03/19/2009 6:44 PM CDT See dictation. documented in this encounter Nursing Notes 03/13/2009 8:00 AM CDT >> Blanca Ziegler RN MonMar 13, 2009 8:24 AM 19 months follow up visit with Dr Frances in Monday [facility]. DX of C7 Spinal Cord Injury, Quadriplegia, Neurogenic Bladder. B/P 87/60 pulse 105, states runs lower blood pressure. Self caths PRN during the day. Blanca Ziegler RN documented in this encounter Plan of Treatment Not on filedocumented as of this encounter Visit Diagnoses Diagnosis Quadriplegia () - Primary Quadriplegia, unspecified documented in this encounter Care Teams Ultrasonic Tester Relationship Specialty Start Date End Date Provider, Outside PCP - General 03/13/09 10/22/18 [place] [address] documented as of this encounter
--- OUTSIDE RECORDS SUMMARY | 2022-04-18 08:51 | XMS_ITS | Encounter Summary ---
:1955 Author Organization [facility] Address [address] [place], [place] [address]. [place] [address] Phone Care Team Providers Name Role Phone Unavailable Primary Care Provider Unavailable Encounter Details Date Type Department Care Team Description 10/12/2001 Orders Only [facility] [place]ound [address] [place], [place] [address] Social History Tobacco Use Types Packs/Day Years Used Date Smoking Tobacco: Never Assessed Sex Assigned at Date Recorded Not on file documented as of this encounter Plan of Treatment Not on filedocumented as of this encounter Procedures Procedure Name Priority Date/Time Associated Diagnosis Comme nts ULT KIDNEYS Routine 10/12/2001 11:22 AM Results for this COMPLETE REFRIGERATING ENGINEER procedure are i n the results section. documented in this encounter Results ULT KIDNEY COMPLETE (10/12/2001 11:22 AM REFRIGERATING ENGINEER) Anatomical Region Laterality Modality Abdomen Ultrasound Specimen (Source) Anatomical Collection Method Collection Time Re ceived Time Location / / Volume Laterality 10/12/2001 11:22 AM REFRIGERATING ENGINEER Impressions 10/15/2001 4:06 PM REFRIGERATING ENGINEER : 1. ??NO RENAL STONES IDENTIFIED. 2. ??MILD CORTICAL THINNING BILATERALLY. ??THIS MAY INDICATE MEDICAL RENAL DISEASE. I have personally reviewed the image(s) and initial interpretation, and I agree with the findings. ASI END: RELEASE RESULTS: (Y) END RESULT: IMPRESSION Narrative 10/15/2001 4:06 PM REFRIGERATING ENGINEER Final Report EXAM: ?? RENAL US: [place] KIDNEYS ?- ??10/12/2001 11:22AM SUSPECTED PATHOLOGY: SYMPTOMS [...] the original. Final Report EXAM: RENAL US: [place] KIDNEYS - 002 11:22AM SUSPECTED PATHOLOGY: SYMPTOMS [...]
--- OUTSIDE RECORDS SUMMARY | 2022-04-18 08:51 | XMS_ITS | Encounter Summary ---
:1955 Author Organization [facility] Address [address] [place] [address] Phone Care Team Providers Name Role Phone Provider, Outside Primary Care Provider Unavailable Reason for Visit Reason Onset Date Comments Refill Request 10/21/2009 Encounter Details Date Type Department Care Team Description 10/21/2009 Refill HFA Urology Omar Savage MD Refill Request [address] Research Only [place], [place] [address] Social History Tobacco Use Types [...] NOS documented in this encounter Care Teams Organ Grinder Relationship Specialty Start Date End Date Provider, Outside PCP - General 03/13/09 10/22/18 [place] [address] documented as of this encounter
--- OUTSIDE RECORDS SUMMARY | 2022-04-18 08:51 | XMS_ITS | Encounter Summary ---
:1955 Author Organization [facility] Address [address] [place] [address] Phone Care Team Providers Name Role Phone Unavailable Primary Care Provider Unavailable Encounter Details Date Type Department Care Team Description 09/02/2005 Letters(Tab) Unknown, Provider Social History Tobacco Use Types Packs/Day Years Used Date Smoking Tobacco: Never Assessed Sex Assigned at Date Recorded Not on file documented as of this encounter Progress Notes Interface, Rivet Maker-In - 11/15/2005 1:36 AM CDT [facility] [address] [facility], [address] [place], [place] [address] September 02, 2005 Mr. Micheal Rene [address] [place] [address] RE: MICHEAL RENE MR#: [id number] Dear Mr. Rene: From your recent Urology Clinic visit, your prostate specific antigen value remains low at 2.6. We will communicate with you once your other screening studies and x-ray studies have been completed. Best wishes. Please feel free to contact me for questions. Sincerely, Omar Savage MD Received in Rivet Maker: 09/02/2005 14:40:28 (M: 09/03/2005 06:57:04 dma) CS/fidelina Voice ID: [id number] Document ID: [id number] cc: This document was electronically signed by Omar Savage MD on 09/06/2005 18:13:45. documented in this encounter Plan of Treatment Not on filedocumented as of this encounter Visit Diagnoses Not on filedocumented in this encounter
--- OUTSIDE RECORDS SUMMARY | 2022-04-18 08:51 | XMS_ITS | Encounter Summary ---
:1955 Author Organization [facility] Address [address] [place] [address] Phone Care Team Providers Name Role Phone [...] 08/18/2005 12:00 AM R esults for this DESIZING MACHINE OPERATOR procedure are i n the results section. PSA-SCREENING(MT) Routine 08/18/2005 12:00 AM Res ults for this DESIZING MACHINE OPERATOR procedure are i n the results section. CREATININE, SERUM Routine 08/18/2005 12:00 AM Res ults for this DESIZING MACHINE OPERATOR procedure are i n the results section. documented in this encounter Results PSA-SCREENING(MT) (08/18/2005 12:00 AM DESIZING MACHINE OPERATOR) athologist Signature PSA Screen 2.6 0.00 - 4.00 HFA LAB NG/ML Specimen (Source) Anatomical Collection Method Collection Time Re ceived Time Location / / Volume Laterality Blood 08/18/2005 08/18/2005 5:07 PM DESIZING MACHINE OPERATOR Omar Savage MD LABORATORY Performing Organization Address City/State/ZIP Code Phon e Number HFA LAB BUN (UREA NITROGEN) (08/18/2005 12:00 AM DESIZING MACHINE OPERATOR) athologist Signature BUN 9 5 - 25 MG/DL HFA LAB Specimen (Source) Anatomical Collection Method Collection Time Re ceived Time Location / / Volume Laterality Blood 08/18/2005 08/18/2005 5:07 PM DESIZING MACHINE OPERATOR Omar Savage MD LABORATORY Performing Organization Address City/State/ZIP Code Phon e Number HFA LAB CREATININE, SERUM (08/18/2005 12:00 AM DESIZING MACHINE OPERATOR) P athologist Signature Creatinine <0.5 0.5 - 1.4 HFA LAB MG/DL Comment: REPEATED Specimen (Source) Anatomical Collection Method Collection Time Re ceived Time Location / / Volume Laterality Blood 08/18/2005 08/18/2005 5:07 PM DESIZING MACHINE OPERATOR Omar Savage MD LABORATORY Performing Organization Address City/State/ZIP Code Phon e Number HFA LAB documented in this encounter Visit Diagnoses Not on filedocumented in this encounter
--- OUTSIDE RECORDS SUMMARY | 2022-04-18 08:51 | XMS_ITS | Encounter Summary ---
:1955 Author Organization [facility] Address [address] [place] [address] Phone Care Team Providers Name Role Phone Pcp, No Primary Care Provider Unavailable Reason for Visit Reason Onset Date Comments Refill Request 09/02/2008 Encounter Details Date Type Department Care Team Description 09/02/2008 Refill HFA Urology Omar Savage MD Refill Request [address] [facility], [address] Research Only [place], [place] [address] Social History Tobacco Use Types Packs/Day Years Used Date Smoking Tobacco: Never Alcohol Use Standard Drinks/Week Comments Yes 3.3 (1 standard drink = 0.6 oz pure alco hol) Sex Assigned at Date Recorded Not on file documented as of this encounter Plan of Treatment Not on filedocumented as of this encounter Visit Diagnoses Not on filedocumented in this encounter Care Teams Church Official Relationship Specialty Start Date End Date Pcp, No PCP - General 01/24/08 03/12/09 [facility] [place] [address] documented as of this encounter
--- OUTSIDE RECORDS SUMMARY | 2022-04-18 08:51 | XMS_ITS | Encounter Summary ---
:1955 Author Organization [facility] Address [address] [place] [address] Phone Care Team Providers Name Role Phone Pcp, No Primary Care Provider Unavailable Reason for Visit Reason Comments Follow-up med check-in Encounter Details Date Type Department Care Team Description 01/24/2008 Office Visit HFA Urology Omar Savage, Neurogenic Bladder [address] [facility] (Primary Dx) 250 Research Only [place], [place] [address] Social History Tobacco Use Types Packs/Day Years Used Date Smoking Tobacco: Never Alcohol Use Standard Drinks/Week Comments Yes 3.3 (1 standard drink = 0.6 oz pure alco hol) Sex Assigned at Date Recorded Not on file documented as of this encounter Progress Notes Omar Savage MD - 01/29/2008 2:47 PM CDT [facility] [address] [facility], [address] [place] [address] (fax) MEDREC#: [id number] PATIENT: MICHEAL RENE : 1955 DATE: 01/24/2008 [...] this examination. Omar Savage MD Received in Crown Buffer: 01/24/2008 17:47:53 (M: 01/29/2008 08:19:42 aml) CS/aml Voice ID: [id number] Document ID: [id number] cc: Omar Savage MD - 01/24/2008 5:48 [...] eGFR, >60 mL/min/1.73 HFA LAB Non- m2 Danish Specimen Anatomical Collection Method Collection Time Receive d Time (Source) Location / / Volume Laterality Blood 01/24/2008 4:05 PM 8 4:29 CDT PM CDT Omar Savage MD LABORATORY Performing Organization Address City/[facility]/ZIP Code Phon e Number HFA LAB GLOMERULAR FILTRATION RATE B (01/24/2008 4:05 PM CDT) P athologist Signature eGFR, >60 mL/min/1.73 HFA LAB Danish m2 Comment: IDMS TRACEABLE CALIBRATION EFFECTIVE 08/16/2007 Specimen Anatomical Collection Method Collection Time Receive d Time (Source) Location / / Volume Laterality Blood 01/24/2008 4:05 PM 8 4:29 CDT PM CDT Omar Savage MD LABORATORY Performing Organization Address City/[facility]/ZIP Code Phon e Number HFA LAB [...] NOS documented in this encounter Care Teams Real Estate Professor Relationship Specialty Start Date End Date Pcp, No PCP - General 01/24/08 03/12/09 [facility] [place] [address] documented as of this encounter
--- OUTSIDE RECORDS SUMMARY | 2022-04-18 08:51 | XMS_ITS | Encounter Summary ---
:1955 Author Organization [facility] Address [address] [place], [place] [address] [place] [address] Phone Care Team Providers Name Role Phone Unavailable Primary Care Provider Unavailable Encounter Details Date Type Department Care Team Description 09/02/2005 Orders Only [facility] Ul[place]ound [address] [place], [place] [address] Social History Tobacco Use Types Packs/Day Years Used Date Smoking Tobacco: Never Assessed Sex Assigned at Date Recorded Not on file documented as of this encounter Plan of Treatment Not on filedocumented as of this encounter Procedures Procedure Name Priority Date/Time Associated Diagnosis Comme nts ULT KIDNEYS Routine 09/02/2005 3:16 PM Results f or this COMPLETE NEWSAGENT procedure are i n the results section. documented in this encounter Results ULT KIDNEY COMPLETE (09/02/2005 3:16 PM NEWSAGENT) Anatomical Region Laterality Modality Abdomen Ultrasound Specimen (Source) Anatomical Collection Method Collection Time Re ceived Time Location / / Volume Laterality 09/02/2005 3:16 PM NEWSAGENT Impressions 09/05/2005 9:17 AM NEWSAGENT : ??NO FOCAL MASS, STONE, OR HYDRONEPHROSIS IDENTIFIED WITHIN EITHER KIDNEY. I have personally reviewed the image(s) and initial interpretation, and I agree with the findings. . . Read Date: Sep 02 2005 ??4:12P BENEDICT AU M.D. - STAFF RADIOLOGIST FABIOLA AVALOS M.D. - RESIDENT RADIOLOGIST RELEASE RESULTS: (Y) ASI END: END RESULT: DATE DICTATED: () QUALITY ASSURANCE ASSESSOR: ( ) IMPRESSION Narrative 09/05/2005 9:17 AM NEWSAGENT FABIOLA AVALOS M.D. - RESIDENT RADIOLOGIST Final Report EXAM: ?? RENAL US: [place] KIDNEYS ?? 04/2006 15:16 HISTORY: ??Neurogenic bladder. [...] RESIDENT RADIOLOGIST Final Report EXAM: RENAL US: [place] KIDNEYS 15:16 HISTORY: Neurogenic bladder. COMPARISON: 10/12/01. [...] ASI END: END RESULT: DATE DICTATED: () QUALITY ASSURANCE ASSESSOR: ( ) IMPRESSION Omar Savage MD ULT documented in this encounter Visit Diagnoses Not on filedocumented in this encounter
--- OUTSIDE RECORDS SUMMARY | 2022-04-18 08:51 | XMS_ITS | Encounter Summary ---
:1955 Author Organization [facility] Address [address] [place] [address] Phone Care Team Providers Name Role Phone Pcp, No Primary Care Provider Unavailable Reason for Visit Reason Comments Follow-up neurogenic bladder Encounter Details Date Type Department Care Team Description 01/29/2009 Office Visit HFA Urology Omar Savage, Neurogenic Bladder [address] [place] [address] (Primary Dx) 250 Research Only [place], [place] [address] Social History Tobacco Use Types Packs/Day Years Used Date Smoking Tobacco: Never Alcohol Use Standard Drinks/Week Comments Yes 3.3 (1 standard drink = 0.6 oz pure alco hol) Sex Assigned at Date Recorded Not on file documented as of this encounter Progress Notes Omar Savage MD - 02/02/2009 12:28 PM CDT [facility] [address] [facility] [place] [address] (fax) MEDREC#: [id number] PATIENT: MICHEAL FLETCHER : 1955 DATE: 01/29/2009 [...] pinning. The pinning was performed at the [facility]. His pacemaker was placed at the [facility]. I will request laboratory values from both [...] 20 minutes. Omar Savage MD Received in Urology Physician: 01/29/2009 18:41:26 (M: 02/02/2009 08:06:12 sharmila) CS/sjv Voice ID: [id number] Document ID: [id number] cc: Omar Savage MD - 01/29/2009 6:41 [...] NOS documented in this encounter Care Teams Documentation Nurse Relationship Specialty Start Date End Date Pcp, No PCP - General 01/24/08 03/12/09 [place] [address] documented as of this encounter
--- OUTSIDE RECORDS SUMMARY | 2022-04-18 08:51 | XMS_ITS | Encounter Summary ---
:1955 Author Organization [facility] Address [address] [place] [address] Phone Care Team Providers Name Role Phone Unavailable Primary Care Provider Unavailable Encounter Details Date Type Department Care Team Description 08/18/2005 Notes/Trans Unknown, Provider Social History Tobacco Use Types Packs/Day Years Used Date Smoking Tobacco: Never Assessed Sex Assigned at Date Recorded Not on file documented as of this encounter Progress Notes Interface, Mandrel Press Hand-In - 11/15/2005 1:28 AM CDT [facility] [id number] PATIENT: MICHEAL FLETCHER [address] [facility] : 1955 [place] [address] DATE: 08/18/2005 Page (fax) The patient is [...] KEFLEX, SHELLFISH, AND AUGMENTIN. His primary care huc is Dr. Sameera Frances whom he sees [...] year's time. Omar Savage MD Received in Mandrel Press Hand: 08/22/2005 18:11:27 (M: 08/24/2005 17:01:36 cb) CS/cb Voice ID: [id number] Document ID: [id number] cc: This document was electronically signed by Omar Savage MD on 08/26/2005 10:47:02. ? documented in this encounter Plan of Treatment Not on filedocumented as of this encounter Visit Diagnoses Not on filedocumented in this encounter
--- OUTSIDE RECORDS SUMMARY | 2022-04-18 08:51 | XMS_ITS | Encounter Summary ---
:1955 Author Organization [facility] Address [address] [place] [address] Phone Care Team Providers Name Role Phone Unavailable Primary Care Provider Unavailable Encounter Details Date Type Department Care Team Description 03/04/2003 EWeb History [facility] Bubba Tavarez MD [address] Mail Code [address] [place], [place] [address] [place] [address] [phone] (Wo rk) Social History Tobacco Use Types Packs/Day Years Used Date Smoking Tobacco: Never Assessed Sex Assigned at Date Recorded Not on file documented as of this encounter Plan of Treatment Not on filedocumented as of this encounter Visit Diagnoses Not on filedocumented in this encounter
--- OUTSIDE RECORDS SUMMARY | 2022-04-18 08:51 | XMS_ITS | Encounter Summary ---
:1955 Author Organization [facility] Address [address] [place] [address] Phone Care Team Providers Name Role Phone Unavailable Primary Care Provider Unavailable Reason for Visit Reason Comments Follow-up Encounter Details Date Type Department Care Team Description 07/31/2007 Office Visit [facility] Phys Med/Rehab Sameera Frances Q uadriplegia (); Clinic Neurogenic Bowel; [address] Mail Code [address] [place], [place] [address] [place], [place] [phone] (Wo rk) Social History Tobacco Use Types Packs/Day Years Used Date Smoking Tobacco: Never Alcohol Use Standard Drinks/Week Comments Yes 3.3 (1 standard drink = 0.6 oz pure alco hol) Sex Assigned at Date Recorded Not on file documented as of this encounter Last Filed Vital Signs Vital Sign Reading Time Taken Comments Blood Pressure 91/64 07/31/2007 3:21 PM LEGAL REFEREE Pulse 81 07/31/2007 3:21 PM LEGAL REFEREE Temperature - - Respiratory Rate - - Oxygen Saturation - - Inhaled Oxygen Concentration - - Weight - - Height 6 cm (2.36) 07/31/2007 3:21 PM LEGAL REFEREE Body Mass Index - - documented in this encounter Progress Notes Sameera Frances MD - 08/15/2007 11:05 [place] [address] MEDREC#: [id number] PATIENT: MICHEAL RENE : 1955 DATE: 07/31/2007 [facility] ADDENDUM: Again, under recommendations, I did talk to him that now he is 49 that he really should have an camera mechanic who can coordinate his prophylactic care while he ages, in particular heart disease and prostate concerns. He is not interested and would just prefer to treat things as they come up, and declined my offers to arrange him with a Primary Care physician. Sameera Frances MD Staff Physician Physical Medicine and Rehabilitation Service Received in Stitcher Feeder: 08/02/2007 15:01:18 (M: 08/06/2007 11:31:55/dd:st) CLR/dd:st Voice ID: [id number] Document ID: [id number] cc: L REFEREE Sameera Frances MD - 08/15/2007 11:05 [place] [address] [facility]#: [id number] PATIENT: MICHEAL RENE : 1955 DATE: 07/31/2007 [...] father and a grandfather. He lives in [place] and just recently he has started to [...] He has just received a new manual [employer] AGie wheelchair with a J-cushion and he is [...] he likes because of stability. ASSESSMENT: C7 [place] Spinal Injury Association (AUDREY) A chronic spinal [...] Physical Medicine and Rehabilitation Service Received in Stitcher Feeder: 08/02/2007 14:58:39 (M: 08/06/2007 11:12:53/dd:st) CLR/dd:st Voice ID: [id number] Document ID: [id number] cc: L REFEREE Sameera Frances MD - 08/02/2007 3:01 PM CST HPI ROS Physical Exam See my dictation for today. L REFEREE documented in this encounter Plan of Treatment Not on filedocumented as of this encounter Visit Diagnoses Diagnosis Quadriplegia () Quadriplegia, unspecified Neurogenic bowel Spastic Abnormal involuntary movements documented in this encounter
--- OUTSIDE RECORDS SUMMARY | 2022-04-18 08:51 | XMS_ITS | Encounter Summary ---
:1955 Author Organization [facility] Address [address] [place] [address] Phone Care Team Providers Name Role Phone [...]
--- OUTSIDE RECORDS SUMMARY | 2022-04-18 08:51 | XMS_ITS | Encounter Summary ---
:1955 Author Organization [facility] Address [address] [place] [address] Phone Care Team Providers Name Role Phone Pcp, No Primary Care Provider Unavailable Reason for Visit Reason Onset Date Comments Question 02/20/2009 Called with question Encounter Details Date Type Department Care Team Description 02/20/2009 Telephone HFA Physical Medicin e Reece Ziegler, Question (Called with [facility] [address], [address] RN question) [facility] [facility] [place] [address] Clinic [phone] [place] [address] Social History Tobacco Use Types Packs/Day Years [...] Created: MonFeb 19, 2009 3:38 PM Regarding: [facility] PMR TELEPHONE MESSAGE Taken by: Natalie Painting , 02/19/2009 3:38 PM Direct to: Problem: questions Pt. Name: Khanh Rene : 1955 (home) Insurance: PCP: No PCP Comment: Expects Return Call at: [phone] Monday02/20/09 at 930am, returned Khanh's phone call, had to leave phone message, Reece Ziegler RN 02/26/09 again returned Khanh's phone call woth no answer. Khanh is scheduled to see Dr Frances on Monday03/13/09 at [facility]. I has also given Dr Frances phone message from Khanh on his question on medical supply.Reece Ziegler RN documented in this encounter Plan of Treatment Not on filedocumented as of this encounter Visit Diagnoses Not on filedocumented in this encounter Care Teams Hooker On Relationship Specialty Start Date End Date Pcp, No PCP - General 01/24/08 03/12/09 [facility] [place] [address] documented as of this encounter
--- OUTSIDE RECORDS SUMMARY | 2022-04-18 08:51 | XMS_ITS | Encounter Summary ---
:1955 Author Organization [facility] Address [address] [place] [address] Phone Care Team Providers Name Role Phone Pcp, No Primary Care Provider Unavailable Reason for Visit Reason Onset Date Comments Refill Request 01/28/2008 Encounter Details Date Type Department Care Team Description 01/28/2008 Refill HFA Urology Omar Savage MD Refill Request [address] [facility], [address] Research Only [place], [place] [address] Social History Tobacco Use Types [...] on filedocumented in this encounter Care Teams Hat Trimmer Relationship Specialty Start Date End Date Pcp, No PCP - General 01/24/08 03/12/09 [facility] [address] documented as of this encounter
--- OUTSIDE RECORDS SUMMARY | 2022-04-18 08:51 | XMS_ITS | Encounter Summary ---
:1955 Author Organization [facility] Address [address] [place] [address] Phone Care Team Providers Name Role Phone Provider, Outside Primary Care Provider Unavailable Reason for Visit Reason Comments Follow-up Encounter Details Date Type Department Care Team Description 04/01/2010 Office Visit HFA Urology Omar Savage, Neurogenic bladder; [address] [place] [address] Screening for prostate cancer [address] Research Only [place], [place] [address] Social History Tobacco Use Types Packs/Day Years [...] Savage MD - 04/05/2010 1:22 PM CDT [facility] [address] [facility], [address] [place] [address] (fax) [facility]#: [id number] PATIENT: MICHEAL FLETCHER : 1955 DATE: 04/01/2010 UROLOGY NOTE The [...] MD Staff Physician Surgery Service Received in Housekeeping Manager: 04/02/2010 14:55 M: 04/02/2010 22:48 kn CS/kn Voice ID: [id number] Document ID: [id number] Omar Savage MD - 04/02/2010 2:55 PM [...] 4:01 CDT PM CDT Comment: BLOOD Omar Saavge MD LABORATORY Performing Organization Address City/State/ZIP Code Phon e Number HFA LAB documented in this encounter Visit Diagnoses Diagnosis Neurogenic bladder Neurogenic bladder, NOS Screening for prostate cancer Special screening for malignant neoplasm of prostate Neurogenic bladder Neurogenic bladder, NOS documented in this encounter Care Teams Money Manager Relationship Specialty Start Date End Date Provider, Outside PCP - General 03/13/09 10/22/18 [place] [address] documented as of this encounter
--- OUTSIDE RECORDS SUMMARY | 2022-04-18 08:51 | XMS_ITS | Encounter Summary ---
:1955 Author Organization [facility] Address [address] [place] [address] Phone Care Team Providers Name Role Phone Unavailable Primary Care Provider Unavailable Encounter Details Date Type Department Care Team Description 09/02/2005 Orders Only [facility] XRAY [address] [place], [place] [address] Social History Tobacco Use Types Packs/Day Years Used Date Smoking Tobacco: Never Assessed Sex Assigned at Date Recorded Not on file documented as of this encounter Plan of Treatment Not on filedocumented as of this encounter Procedures Procedure Name Priority Date/Time Associated Diagnosis Comme nts ULT KIDNEYS Routine 09/02/2005 3:16 PM Results f or this COMPLETE SENIOR UI UX DESIGNER procedure are i n the results section. XR CHEST 2 VIEWS PA Routine 09/02/2005 3:03 PM Re sults for this + LAT* SENIOR UI UX DESIGNER procedure are i n the results section. documented in this encounter Results ULT KIDNEY COMPLETE (09/02/2005 3:16 PM SENIOR UI UX DESIGNER) Anatomical Region Laterality Modality Abdomen Ultrasound Specimen (Source) Anatomical Collection Method Collection Time Re ceived Time Location / / Volume Laterality 09/02/2005 3:16 PM SENIOR UI UX DESIGNER Impressions 09/05/2005 9:17 AM SENIOR UI UX DESIGNER : ??NO FOCAL MASS, STONE, OR HYDRONEPHROSIS IDENTIFIED WITHIN EITHER KIDNEY. I have personally reviewed the image(s) and initial interpretation, and I agree with the findings. . . Read Date: Sep 02 2005 ??4:12P BENEDICT AU M.D. - STAFF RADIOLOGIST FABIOLA AVALOS M.D. - RESIDENT RADIOLOGIST RELEASE RESULTS: (Y) ASI END: END RESULT: DATE DICTATED: () FACE HARDENER: ( ) IMPRESSION Narrative 09/05/2005 9:17 AM SENIOR UI UX DESIGNER FABIOLA AVALOS M.D. - RESIDENT RADIOLOGIST Final Report EXAM: ?? RENAL US: [place] KIDNEYS ?? 04/2006 15:16 HISTORY: ??Neurogenic bladder. [...] RESIDENT RADIOLOGIST Final Report EXAM: RENAL US: [place] KIDNEYS 15:16 HISTORY: Neurogenic bladder. COMPARISON: 10/12/01. [...] ASI END: END RESULT: DATE DICTATED: () FACE HARDENER: ( ) IMPRESSION Omar Savage MD ULT XR CHEST 2 VIEWS PA & LAT (09/02/2005 3:03 PM SENIOR UI UX DESIGNER) Anatomical Region Laterality Modality Chest Digital Radiography Specimen (Source) Anatomical Collection Method Collection Time Re ceived Time Location / / Volume Laterality 09/02/2005 3:03 PM SENIOR UI UX DESIGNER Impressions 09/02/2005 3:58 PM SENIOR UI UX DESIGNER : ??NO ACUTE PULMONARY INFILTRATE. ?? . . Read Date: Sep 02 2005 ??3:34P VIANCA COHEN M.D. - STAFF RADIOLOGIST - RESIDENT RADIOLOGIST RELEASE RESULTS: (Y) ASI END: END RESULT: DATE DICTATED: () FACE HARDENER: ( ) IMPRESSION Narrative 09/02/2005 3:58 PM SENIOR UI UX DESIGNER - RESIDENT RADIOLOGIST Final Report EXAM: ?? [...] ASI END: END RESULT: DATE DICTATED: () FACE HARDENER: ( ) IMPRESSION Omar Savage MD X-RAY documented in this encounter Visit Diagnoses Not on filedocumented in this encounter
--- OUTSIDE RECORDS SUMMARY | 2022-04-18 08:51 | XMS_ITS | Encounter Summary ---
:1955 Author Organization [facility] Address [address] [place] [address] Phone Care Team Providers Name Role Phone Pcp, No Primary Care Provider Unavailable Reason for Visit Reason Onset Date Comments Durable Medical Equipment 02/17/2009 Question about reordering equipment Check/Request Encounter Details Date Type Department Care Team Description 02/17/2009 Telephone HFA Physical Medicin e Reece Ziegler, Durable Medical [address] [facility], [facility] RN Equipment Check/Request M50 Multispecialty (Question about [place], [place] [address] 4 Clinic reordering equipment) [phone] [place] [address] Social History Tobacco Use Types Packs/Day Years [...] refill of dourdrem?? Spelling? Pharmacy # is [phone] Pt. Name: Khanh Rene : 1955 (home) Insurance: PCP: No PCP Comment: Expects Return Call at: [phone] or cell [phone] Monday02/17/09 Copy of this phone message given to Dr Frances and she will call patient to check on equipment order needed. Reece Ziegler RN documented in this encounter Plan of Treatment Not on filedocumented as of this encounter Visit Diagnoses Not on filedocumented in this encounter Care Teams Stacker Relationship Specialty Start Date End Date Pcp, No PCP - General 01/24/08 03/12/09 [facility] [place] [address] documented as of this encounter
--- OUTSIDE RECORDS SUMMARY | 2022-04-18 08:51 | XMS_ITS | Encounter Summary ---
:1955 Author Organization [facility] Address [address] [place] [address] Phone Care Team Providers Name Role Phone Unavailable Primary Care Provider Unavailable Reason for Visit Reason Onset Date Comments Medication Refill 10/16/2007 Encounter Details Date Type Department Care Team Description 10/16/2007 Refill HFA Urology Omar Savage MD Medication Refill [address] [facility], [address] Research Only [place], [place] [address] Social History Tobacco Use Types [...]
--- OUTSIDE RECORDS SUMMARY | 2022-04-18 08:51 | XMS_ITS | Encounter Summary ---
:1955 Author Organization [facility] Address [address] [place] [address] Phone Care Team Providers Name Role Phone Unavailable Primary Care Provider Unavailable Encounter Details Date Type Department Care Team Description 05/10/2005 Notes/Trans Unknown, Provider Social History Tobacco Use Types Packs/Day Years Used Date Smoking Tobacco: Never Assessed Sex Assigned at Date Recorded Not on file documented as of this encounter Progress Notes Interface, Livestock Showman-In - 11/15/2005 12:30 AM CDT [facility]#: [id number] [place] [address] PATIENT: MICHEAL FLETCHER : 1955 NARRATIVE NOTES [...] a father and a grandfather living in [place]. REVIEW OF SYSTEMS: A total of ten [...] depression. Equipment - he has a new ThisNextie wheelchair and a J cushion with extra [...] Physical Medicine and Rehabilitation Service Received in Livestock Showman: 05/10/2005 17:00:07 (M: 05/12/2005 12:51:56/[facility]) [facility]/cme Voice ID: [id number] Document ID: [id number] cc: This document was electronically signed by Sameera Frances MD on 06/07/2005 14:43:43. documented in this encounter Plan of Treatment Not on filedocumented as of this encounter Visit Diagnoses Not on filedocumented in this encounter
--- OUTSIDE RECORDS SUMMARY | 2022-04-18 08:52 | XMS_ITS | Encounter Summary ---
:1955 Author Organization [facility] Address [address] [place] [address] Phone Care Team Providers Name Role Phone [...] 09/19/2001 5:05 PM Re sults for this BOAT PILOT procedure are i n the results section. PSA Routine 09/19/2001 5:05 PM Results f or this DIAGNOSTIC(PROSTATE BOAT PILOT procedur e are in SPE AG the results section. CREATININE, SERUM Routine 09/19/2001 5:05 PM Resu lts for this BOAT PILOT procedure are i n the results section. documented in this encounter Results PSA DIAGNOSTIC(PROSTATE SPE AG (09/19/2001 5:05 PM BOAT PILOT) athologist Signature PSA Diagnostic 0.5 0.00 - 4.00 HFA LAB NG/ML Specimen Anatomical Collection Method Collection Time Receive d Time (Source) Location / / Volume Laterality Blood 09/19/2001 5:05 PM 2 5:26 BOAT PILOT PM BOAT PILOT Omar Savage MD LABORATORY Performing Organization Address City/State/ZIP Code Phon e Number HFA LAB BUN (UREA NITROGEN) (09/19/2001 5:05 PM BOAT PILOT) athologist Signature BUN 13 5 - 25 MG/DL HFA LAB Specimen Anatomical Collection Method Collection Time Receive d Time (Source) Location / / Volume Laterality Blood 09/19/2001 5:05 PM 2 5:26 BOAT PILOT PM BOAT PILOT Omar Savage MD LABORATORY Performing Organization Address City/State/ZIP Code Phon e Number HFA LAB CREATININE, SERUM (09/19/2001 5:05 PM BOAT PILOT) P athologist Signature Creatinine 0.5 0.5 - 1.4 HFA LAB MG/DL Specimen Anatomical Collection Method Collection Time Receive d Time (Source) Location / / Volume Laterality Blood 09/19/2001 5:05 PM 2 5:26 BOAT PILOT PM BOAT PILOT Omar Savage MD LABORATORY Performing Organization Address City/State/ZIP Code Phon e Number HFA LAB documented in this encounter Visit Diagnoses Not on filedocumented in this encounter
--- OUTSIDE RECORDS SUMMARY | 2022-04-18 08:52 | XMS_ITS ---
:1955 Author Care Team Providers Name Role Phone CHETNA MERAZ MD Primary Care Provider [phone] ANN MCLAININA Rig Site Engineer [phone] Allergies Code Code System Name Reaction Severity [...] MOUTH ONCE A DAY FOR 10 DAYS oeqvebjr-vnbnppsea-yjsztklbl 3.5 mg-10,000 unit/mL-1 % ear d rops,susp [...] Name Performed by ? 09/27/2021 US, Kidney [facility] Radiology Department [address] [place] [address] (Work Place) Results Lab Results Date Name Specimen Result Interpretation Description Value Range Status Address ? 05/06/2021 Culture, BLDV ABNORMAL Final Report microbiology ? Final [place] Urine results Urology [facility] Lab: [address] [facility] [address], [place] 05/06/2021 Urinalysis ? No ? ? ? , Dipstick observation recorded. 02/18/2021 Culture, UR ABNORMAL Final Report microbiology ? Final [place] Urine results [facility]rology - [place] Lab: [address], [place] ? Urinalysis ? Color-Status Yellow ? ? [...] ? ? ? Sp 1.015 ? ? [place]-Statu s ? ? ? Nitrates-Sta positive ? ? tus ? ? ? Blood-Status Trace ? Leuko-Status Large ? ? Past Encounters 09/27/2021 Neurogenic Bladder; Spinal Cord Injury; Spasm of Bladder; Recurrent Urinary Tract Infection Jono Pagan MD: [address] [place] [address], Ph. 05/06/2021 Abnormal Urine Jono Pagan MD: [address] [place] [address], Ph. 02/18/2021 Neurogenic Bladder; Spinal Cord Injury; Spasm of Bladder; Recurrent Urinary Tract Infection; Acute Urinary Tract Infection Jono Pagan MD: [address] [place] [address], Ph. Social History Tobacco Smoking Status Former [...]
--- OUTSIDE RECORDS SUMMARY | 2022-04-18 08:52 | XMS_ITS | Encounter Summary ---
:1955 Author Organization [facility] Address [address] [place] [address] Phone Care Team Providers Name Role Phone Unavailable Primary Care Provider Unavailable Encounter Details Date Type Department Care Team Description 04/03/1997 Orders Only [facility] [place]RAY [address] [place], [place] [address] Social History Tobacco Use Types [...]
--- OUTSIDE RECORDS SUMMARY | 2022-04-18 08:52 | XMS_ITS | Encounter Summary ---
:1955 Author Organization [facility] Address [address] [place] [address] Phone Care Team Providers Name Role Phone Unavailable Primary Care Provider Unavailable Encounter Details Date Type Department Care Team Description 07/03/1995 Orders Only [facility] XRAY [address] [place], [place] [address] Social History Tobacco Use Types Packs/Day Years Used Date Smoking Tobacco: Never Assessed Sex Assigned at Date Recorded Not on file documented as of this encounter Plan of Treatment Not on filedocumented as of this encounter Procedures Procedure Name Priority Date/Time Associated Diagnosis Comme nts XR COCCYX AP & LAT Routine 07/03/1995 2:10 PM Res ults for this IMPREGNATION OPERATOR procedure are i n the results section. documented in this encounter Results XR COCCYX AP & LAT (07/03/1995 2:10 PM IMPREGNATION OPERATOR) Anatomical Region Laterality Modality Lumbar Spine Computed Radiography Specimen (Source) Anatomical Collection Method Collection Time Re ceived Time Location / / Volume Laterality 07/03/1995 2:10 PM IMPREGNATION OPERATOR Impressions 07/05/1995 12:33 PM IMPREGNATION OPERATOR : ??Please see Sacrum report dated 07/03/95 1410. ASI END: RELEASE RESULTS: (Y) END RESULT: IMPRESSION Narrative 07/05/1995 12:33 PM IMPREGNATION OPERATOR Final Report EXAM: ?? COCCYX AP & [...]
--- OUTSIDE RECORDS SUMMARY | 2022-04-18 08:52 | XMS_ITS | Encounter Summary ---
:1955 Author Organization [facility] Address [address] [place], [place] [address]. [place] [address] Phone Care Team Providers Name Role Phone Unavailable Primary Care Provider Unavailable Encounter Details Date Type Department Care Team Description 12/09/1998 Orders Only [facility] MRI G[address] [place], [place] [address] Social History Tobacco Use Types [...]
--- OUTSIDE RECORDS SUMMARY | 2022-04-18 08:52 | XMS_ITS | Clinical Summary ---
:1955 Author Organization [facility] [place] [address] Care Team Providers Name Role Phone Ana Mayers Unavailable Alex Mata MD Primary Care Provider [phone] Allergies Active Allergy Reactions Severity Noted Date Comments Blood-Group Specific Other - Describe In 04/19/2021 Patient has Levi saucedo Substance Comment Field (Fya) antibody . Blood products may be delayed. Dra renee patient 24 hour s prior to transfusion. Fo r [employer] testing, draw o ne red top and [...] 12/26/2008, 09/01/2006 Medical Devices Implanted Type Area Heel Sprayer First Device Shelf Model / Identifier Expiration Serial / Date Lot Standard Pacemaker-12/21/2012 Standard Medtronic [id number] / Implanted: 12/21/2012 by Judson Jenkins MD (Quantity not on file) Pacemaker [id number] / Results Not on filefrom Last 3 [...] 12 months since positive culture): resides in acute/intermediate care, receiving hemodialysis, has chronic open wounds/skin damage, has long-te rm percutaneous indwelling medical devic es Exclusions for nares collection (if <12 months since positive culture) include all of the previous exclusions plus patients on antibiotics 7 days prior to collection Insurance Payer Benefit Plan / Subscriber ID Effective Dates Phone Addre ss Type Group WC WORKERS COMP [facility] [id number] 1989-Prese C/O [employer] [address] [place] [address] WC WORKERS COMP [facility] [id number] 1989-Prese C/O [employer] [address] [place] [address] MEDICARE PART A - MEDICARE PART [id number] 1991-Presen ATTN: CLAIMS HB USE ONLY A HB ONLY t [address] [place] [address] [facility] MR [id number] 2020-Presen [address] [address] [place] [address] Khanh Rene Workers Comp Self 1955 [id number] [employer]Home) [place] [id number] Khanh Rene Workers Comp Self 1955 [id number] [employer] (Home) [place] [id number] Khanh Rene Personal/Family Self 1955 1 [id number] [employer] (Home) [place] [id number] Advance Directives Latest Code Status on File Code Status Date Activated Date Inactivated Comments Full Code 03/05/2020 6:59 AM 03/09/2020 8:07 PM Code Status Discussion: Not Discussed Full Code 04/25/2016 3:57 PM 05/10/2016 8:47 PM Full Code 2016 6:44 AM 03/14/2016 5:37 PM Full Code 12/16/2015 12:49 PM 12/25/2015 1:24 PM Full Code 12/15/2015 3:46 PM 12/16/2015 12:49 PM Care Teams Legal Document Specialist Relationship Specialty Start Date End Date Alex Mata MD PCP - General Family Practice 02/04/201999 [place] [address] Ana Mayers Nurse Practitioner 03/02/[address] [place] [address]
--- OUTSIDE RECORDS SUMMARY | 2022-04-18 08:52 | XMS_ITS | Encounter Summary ---
:1955 Author Organization [facility] Address [address] [place], [place] [address]. [place] [address] Phone Care Team Providers Name Role Phone Unavailable Primary Care Provider Unavailable Encounter Details Date Type Department Care Team Description 04/03/1997 Orders Only [facility] Ultrasound [address] [place], [place] [address] Social History Tobacco Use Types [...] CDT Final Report EXAM: ?? RENAL US: [place] KIDNEYS ?- ??04/03/1997 01:10PM ?? EXAM: ??RENAL [...] - 03/10/2006 Final Report EXAM: RENAL US: [place] KIDNEYS - 997 01:10PM EXAM: RENAL ULTRASOUND [...]
--- OUTSIDE RECORDS SUMMARY | 2022-04-18 08:52 | XMS_ITS | Encounter Summary ---
:1955 Author Organization [facility] Address [address] [facility] [place] [address] Phone Care Team Providers Name Role Phone Unavailable Primary Care Provider Unavailable Encounter Details Date Type Department Care Team Description 01/29/2001 Orders Only [facility] Sameera Frances MD [address] [facility] [address] [place], [place] [address] Mail Code P5 [place] [address] (Wo rk) Social History Tobacco [...] Results URINE CX (01/29/2001 3:37 PM CDT) [facility] Method Time Signature Urine Cult [facility] Test Name ? Collected on --------- [...] PM 01/31 CDT 10:25 AM CDT Narrative [facility] - 01/31/2001 10:25 AM CDT Ordered by an unspecified provider. Provider Unknown LAB MICROBIOLOGY Performing Organization Address City/State/ZIP Code Phon e Number [facility] [place] [address] LAB URINALYSIS, TOTAL (01/29/2001 3:37 PM CDT) [facility] Method Time Signature Color YELLOW YELLOW [facility] Appearance CLEAR CLEAR [facility] Urine Glucose NEGATIVE NEGATIVE [facility] Bili UA NEGATIVE NEGATIVE [facility] Ketones NEGATIVE NEGATIVE [facility] Specific [place] 1.010 1.003 - [facility] 1.030 Blood Ur TRACE Neg-Trace [facility] PH Urine 6.5 5.0 - 7.0 [facility] Protein Ur NEGATIVE NEGATIVE [facility] Urobilinogen 0.2 0.2 - 1.0 [facility] EU/dL Nitrite Ur NEGATIVE NEGATIVE [facility] Leuk Est TRACE Neg-Trace [facility] Microscopic [facility] WBC Ur 0 - 5 0 - 5 [facility] Trans Epith 1+ [facility] Sperm 1+ [facility] Specimen Anatomical Collection Method Collection Time Receive d Time (Source) Location / / Volume Laterality Urine 01/29/2001 3:37 PM 1 4:56 CDT PM CDT Narrative [facility] - 01/29/2001 4:56 PM CDT Ordered by an unspecified provider. Provider Unknown LABORATORY Performing Organization Address City/State/ZIP Code Phon e Number [facility] [place] [address] LAB documented in this encounter Visit Diagnoses Not on filedocumented in this encounter
--- OUTSIDE RECORDS SUMMARY | 2022-04-18 08:52 | XMS_ITS | Encounter Summary ---
:1955 Author Organization [facility] Address [address] [place] [address] Phone Care Team Providers Name Role Phone Unavailable Primary Care Provider Unavailable Encounter Details Date Type Department Care Team Description 07/03/1995 Orders Only [facility] XRAY [address] [place], [place] [address] Social History Tobacco Use Types Packs/Day Years Used Date Smoking Tobacco: Never Assessed Sex Assigned at Date Recorded Not on file documented as of this encounter Plan of Treatment Not on filedocumented as of this encounter Procedures Procedure Name Priority Date/Time Associated Diagnosis Comme nts XR SACRUM AP & LAT Routine 07/03/1995 2:10 PM Res ults for this DRUG SAFETY COORDINATOR procedure are i n the results section. XR COCCYX AP & LAT Routine 07/03/1995 2:10 PM Res ults for this DRUG SAFETY COORDINATOR procedure are i n the results section. documented in this encounter Results XR COCCYX AP & LAT (07/03/1995 2:10 PM DRUG SAFETY COORDINATOR) Anatomical Region Laterality Modality Lumbar Spine Computed Radiography Specimen (Source) Anatomical Collection Method Collection Time Re ceived Time Location / / Volume Laterality 07/03/1995 2:10 PM DRUG SAFETY COORDINATOR Impressions 07/05/1995 12:33 PM DRUG SAFETY COORDINATOR : ??Please see Sacrum report dated 07/03/95 1410. ASI END: RELEASE RESULTS: (Y) END RESULT: IMPRESSION Narrative 07/05/1995 12:33 PM DRUG SAFETY COORDINATOR Final Report EXAM: ?? COCCYX AP & [...] END: RELEASE RESULTS: (Y) END RESULT: IMPRESSION Bubab Tavarez MD X-RAY XR SACRUM AP & LAT (07/03/1995 2:10 PM DRUG SAFETY COORDINATOR) Anatomical Region Laterality Modality Lumbar Spine Computed Radiography Specimen (Source) Anatomical Collection Method Collection Time Re ceived Time Location / / Volume Laterality 07/03/1995 2:10 PM DRUG SAFETY COORDINATOR Impressions 07/05/1995 12:33 PM DRUG SAFETY COORDINATOR : ??Evidence of bone loss or destruction [...] END RESULT: IMPRESSION Narrative 07/05/1995 12:33 PM DRUG SAFETY COORDINATOR Final Report EXAM: ?? SACRUM AP & [...] RELEASE RESULTS: (Y) END RESULT: IMPRESSION Bubba Tavarze MD X-RAY documented in this encounter Visit Diagnoses Not on filedocumented in this encounter
--- OUTSIDE RECORDS SUMMARY | 2022-04-18 08:52 | XMS_ITS | Encounter Summary ---
:1955 Author Organization [facility] Address [address] [place] [address] Phone Care Team Providers Name Role Phone [...]
== END 2022-04-18 08:47 | disposition home or self-care (01) ==
LOC: WOUND 08:46
PROVIDERS: PCP Family Medicine; Visit Provider Nurse Practitioner Family
DX: L89.614 Pressure ulcer of right heel, stage 4 (principal); S80.811A Abrasion, right lower leg, initial encounter
CPT/HCPCS: 11042; 11045

== ENCOUNTER 2022-05-02 08:58 | Outpatient (CLI) | payer OTHER, SELFPAY ==
--- OUTSIDE RECORDS SUMMARY | 2022-05-02 09:00 | XMS_ITS | Encounter Summary ---
:1955 Author Organization [facility] Address 1 [place] [address] Phone Care Team Providers Name Role Phone Unavailable Primary Care Provider Unavailable Reason for Visit Reason Comments Other Encounter Details Date Type Department Care Team Description 03/27/2020 Refill Clinic & Specialty Center Monty Garcia MD Other Urology Clinic [id number] [place] [address] 55 [phone] Social History Tobacco Use Types Packs/Day Years [...]
--- OUTSIDE RECORDS SUMMARY | 2022-05-02 09:00 | XMS_ITS | Encounter Summary ---
:1955 Author Organization [facility] Address [address] [place] [address] Phone Care Team Providers Name Role Phone Lila Clay PT Unavailable Reason for Visit Prior Authorization (Routine) - Closed Specialty Diagnoses / Procedures Referred By Contact Refer red To Contact Physical Therapy / Diagnoses Quadriplegia () At high risk for skin breakdown Impaired mobility Provider, Outside Lila Clay, PHYSICAL MEDICINE AND Procedures PT TREATMENT PLAN OUTSIDE PROVIDER PT REHAB [address] [address] Phone: Fax: Referral ID Status Reason Start Date Expiration Date Visits Requ ested Visits Authorized [id number] Closed 05/05/2021 01/20/2022 12 12 Encounter Details Date Type Department Care Team Description 08/11/2021 Hospital Encounter Clinic & Specialty Provider, Outside [place] [address] No Show Center Energy Derivatives Trader apy Lila Clay, PT [address] [place] [address] Social History Tobacco Use Types Packs/Day [...] request, with this therapist. Lila Clay PT [facility] License: #[id number] Pager: [phone] Office: [phone] EGE TUTOR documented in this encounter Plan of Treatment Not on filedocumented as of this encounter Visit Diagnoses Not on filedocumented in this encounter Care Teams Metalworking Instructor Relationship Specialty Start Date End Date Lila Clay, PT Physical Therapist Physical Therapy 04/05/21 [address] [place] [address] documented as of this encounter
--- OUTSIDE RECORDS SUMMARY | 2022-05-02 09:00 | XMS_ITS | Encounter Summary ---
:1955 Author Organization [facility] Address 1 [place] [address] Phone Care Team Providers Name Role Phone Provider, Outside Primary Care Provider Unavailable Reason for Visit Reason Onset Date Comments Refill Request 01/12/2018 Encounter Details Date Type Department Care Team Description 01/12/2018 Refill [facility] Monty Garcia MD Refill Request Urology Clinic [address] [address] [place], [place] [address] [phone] Social History Tobacco Use Types Packs/Day Years [...] filedocumented in this encounter Care Teams Field Sales Specialist Relationship Specialty Start Date End Date Provider, Outside PCP - General 03/13/09 10/22/18 [place] [address] documented as of this encounter
--- OUTSIDE RECORDS SUMMARY | 2022-05-02 09:00 | XMS_ITS | Encounter Summary ---
:1955 Author Organization [facility] Address 1 [place] [address] Phone Care Team Providers Name Role Phone Unavailable Primary Care Provider Unavailable Reason for Visit Reason Onset Date Comments Refill Request 03/22/2019 propanthelin Encounter Details Date Type Department Care Team Description 03/22/2019 Refill Clinic & Specialty Monty Garcia MD Refill Request Center Urology Clini c 701 [facility] P5 (propanthelin) [address] [phone] (Wo rk) Social History Tobacco Use Types [...]
--- OUTSIDE RECORDS SUMMARY | 2022-05-02 09:00 | XMS_ITS | Encounter Summary ---
:1955 Author Organization [facility] Address [address] [place] [address] Phone Care Team Providers Name Role Phone Lila Clay PT Unavailable Reason for Visit Reason Comments Referral Consult/Test/Treat (Routine) - Closed Specialty Diagnoses / Procedures Referred By Contact Refer red To Contact Physical Medicine and Diagnoses Paraplegia, unspecified paraplegia from previous in [place] 33 yrs James Nava Csc Pm[facility]R Cl Rehab / PHYSICAL MD [place] [address] [place] [address] MEDICINE AND REHAB [address] [place] [phone] Fax: Referral ID Status Reason Start Date Expiration Date Visits V isits Requested Authorized [id number] Closed Created in 07/20/2021 07/20/2022 1 1 PAS Encounter Details Date Type Department Care Team Description 09/02/2021 Office Visit Clinic & Specialty Center Dariel Israel uadriplegia, C5-C7 incomplete () (Primary Dx); Physical Medicine & A, PA-C Muscle spasticity Rehabilitation Clini c [address] [place] [phone] Social History Tobacco Use [...] Comments Blood Pressure 135/74 09/02/2021 8:12 AM BOOKS SALESPERSON Pulse 72 09/02/2021 8:12 AM BOOKS SALESPERSON Temperature - - Respiratory Rate - - Oxygen Saturation - - Inhaled Oxygen Concentration - - Weight - - Height - - Body Mass Index - - documented in this encounter Progress Notes Dariel Israel PA-C - 09/02/2021 8:00 AM CST [facility] Physical Medicine & Rehabilitation Clinic Khanh Rene [...] is followed by a wound clinic in [place]. He just had a wheelchair evaluation in physical therapy here at [place]. He stated that around 2 to 3 [...] 5/5 EE 5/5 5/5 WE 4/5 4/5 Kitchen And Bath Designer 3/5 3/5 Strength bilateral lower extremities 0/5 [...] service, including pre-visit review of separatelyobtained history, ptvw-zs-bmax interaction performing medically appropriate physical exam, patient counseling/education, interpretation of diagnostic results, care coordination and documentation was 46 minutes. Dictation Disclaimer: Notes are completed with voice-recognition dictation software. Errors are generally corrected in real time. Please contact me via [employer] staff message if you note any errors requiring clarification. S SALESPERSON documented in this encounter Plan of Treatment Scheduled Orders Name Type Priority Associated Diagnoses Order S chedule EMG - BOTOX EMG Routine Muscle spasticity Ordered: 0 09/02/2021 documented as of this encounter Procedures Procedure Name Priority Date/Time Associated Comments Diagnosis CARE EVERYWHERE 09/07/2021 11:04 Results for this AUTHORIZATION AM BOOKS SALESPERSON procedure are in the results section. CARE EVERYWHERE 09/07/2021 11:04 Results for this AUTHORIZATION AM BOOKS SALESPERSON procedure are in the results section. documented in this encounter Results CARE EVERYWHERE AUTHORIZATION (09/07/2021 11:04 AM BOOKS SALESPERSON) Narrative This result has an attachment that is no t available. Him Provider SCANNED CONSENTS CARE EVERYWHERE AUTHORIZATION (09/07/2021 11:04 AM BOOKS SALESPERSON) Narrative This result has an attachment that is no t available. Him Provider SCANNED CONSENTS documented in this encounter Visit Diagnoses Diagnosis Quadriplegia, C5-C7 incomplete () - Pr imary Quadriplegia, C5-C7, incomplete Muscle spasticity Spasm of muscle documented in this encounter Care Teams Special Events Planner Relationship Specialty Start Date End Date Lila Clay, PT Physical Therapist Physical Therapy 04/05/21 [address] [place] [address] documented as of this encounter
--- OUTSIDE RECORDS SUMMARY | 2022-05-02 09:00 | XMS_ITS | Encounter Summary ---
:[address] [facility] Address 1 [place] [address] Phone Care Team Providers Name Role Phone Lila Clay PT Unavailable Reason for Visit Prior Authorization (Routine) - Auth Not Needed Specialty Diagnoses / Procedures Referred By Contact Refer red To Contact Physical Medicine and Diagnoses Quadriplegia, unspecified Quadriplegia, C5-C7 incomplete Muscle spasticity [M62.838] (Reminder letter sent 09/29/21 cl) Zev Alvarez MD Rehab / NEUROLOGY EMG Procedures EMG - BOTOX [address] [address] [place] [address] Phone: Fax: Referral ID Status Reason Start Date Expiration Date Visits V isits Requested Authorized [id number] Auth Not 1 2 Needed Encounter Details Date Type Department Care Team Description 10/21/2021 Hospital Encounter Clinic & Specialty Zev Alvarez , Non Billable Center EMG [address] [place] [address]40 4 [place], [place] [phone] (Wo rk) Social History Tobacco Use Types [...] Name: Khanh Rene : 1955 Medical Record: [id number] History of Present Illness: 66 year old [...] to his right leg on 07/08/2019 at [facility] (Administered as 100 BF, 50 SM, 50 [...] and discussed with Dr. Kim Ash, PGY-5, [facility] Brain Injury Fellow Pager# [phone] Associated attestation - Zev Alvarez MD - [...] on filedocumented in this encounter Care Teams Sheep Farmer Relationship Specialty Start Date End Date Lila Clay, PT Physical Therapist Physical Therapy 04/05/21 [address] [place] [address] documented as of this encounter
--- OUTSIDE RECORDS SUMMARY | 2022-05-02 09:00 | XMS_ITS | Encounter Summary ---
:1955 Author Organization [facility] Address [address] [place] [address] Phone Care Team Providers Name Role Phone Unavailable Primary Care Provider Unavailable Reason for Visit Reason Onset Date Comments Refill Request 04/03/2020 Encounter Details Date Type Department Care Team Description 04/03/2020 Refill Clinic & Specialty Center Monty Garcia MD Refill Request Urology Clinic [address] [place] [address] [place] [address] 55 [phone] Social History Tobacco Use Types Packs/Day Years [...]
--- OUTSIDE RECORDS SUMMARY | 2022-05-02 09:00 | XMS_ITS | Encounter Summary ---
:1955 Author Organization [facility] Address 1 [place] [address] Phone Care Team Providers Name Role Phone Unavailable Primary Care Provider Unavailable Encounter Details Date Type Department Care Team Description 08/20/2020 Immunization [facility] Viral Clinic Jonathan Chu MD [address] [address] COVID-19; [address] Nurse, [facility] Vaccine 701 [place] [address] Need for vaccination [place], [place] [address] Social History Tobacco Use Types [...] with No / Unsure 08/20/2020 3:15 PM COUNCILOR someone who was confirmed or suspected to have Coronavirus / COVID-19? documented as of this encounter Plan of Treatment Not on filedocumented as of this encounter Visit Diagnoses Diagnosis COVID-19 Need for vaccination Need for prophylactic vaccination and in oculation against unspecified single disease documented in this encounter
--- OUTSIDE RECORDS SUMMARY | 2022-05-02 09:00 | XMS_ITS | Encounter Summary ---
:1955 Author Organization [facility] Address [address] [place] [address] Phone Care Team Providers Name Role Phone Unavailable Primary Care Provider Unavailable Encounter Details Date Type Department Care Team Description 09/14/2020 Immunization [facility] Viral Clinic Jonathan Chu MD [address] [id number] Need for vaccination [address] Nurse, [facility] Vaccine 701 [place] [address] (Primary Dx) [place], [place] [address] Social History Tobacco Use Types [...] with No / Unsure 08/20/2020 3:15 PM GENERAL OFFICE WORKER someone who was confirmed or suspected to have Coronavirus / COVID-19? documented as of this encounter Plan of Treatment Not on filedocumented as of this encounter Visit Diagnoses Diagnosis Need for vaccination - Primary Need for prophylactic vaccination and in oculation against unspecified single disease documented in this encounter
--- OUTSIDE RECORDS SUMMARY | 2022-05-02 09:00 | XMS_ITS | Encounter Summary ---
:1955 Author Organization [facility] Address [address] [place] [address] Phone Care Team Providers Name Role Phone Provider, Outside Primary Care Provider Unavailable Encounter Details Date Type Department Care Team Description 01/02/2018 Nurse Triage Clinic & Specialty Center Farida Dueñas, school counselor Clinic [address] [address] [place], [place] [address] Social History Tobacco Use Types [...] on filedocumented in this encounter Care Teams Primary Teacher Relationship Specialty Start Date End Date Provider, Outside PCP - General 03/13/09 10/22/18 [place] [address] documented as of this encounter
--- OUTSIDE RECORDS SUMMARY | 2022-05-02 09:00 | XMS_ITS | Encounter Summary ---
:[address] [facility] Address 1 [place] [address] Phone Care Team Providers Name Role Phone Lila Clay PT Unavailable Reason for Visit Prior Authorization (Routine) - Closed Specialty Diagnoses / Procedures Referred By Contact Refer red To Contact Physical Therapy / Diagnoses Quadriplegia () At high risk for skin breakdown Impaired mobility Provider, Outside Lila Clay, PHYSICAL MEDICINE AND Procedures PT TREATMENT PLAN OUTSIDE PROVIDER PT REHAB [address] [place] [address] Phone: Fax: Referral ID Status Reason Start Date Expiration Date Visits Requ ested Visits Authorized [id number] Closed 05/05/2021 01/20/2022 12 12 Encounter Details Date Type Department Care Team Description 09/01/2021 Hospital Encounter Clinic & Specialty Lila Clay, No [facility] Latex Foam Worker apy PT [address] [place] [address] 4 [place], [place] [phone] Social History Tobacco Use Types Packs/Day Years [...] items have been addressed. Lila Clay PT [facility] License: #[id number] Pager: [phone] Office: [phone] ITY CONTROL PROJECTIONIST documented in this encounter Plan of Treatment Not on filedocumented as of this encounter Visit Diagnoses Not on filedocumented in this encounter Care Teams Fixture Maker Relationship Specialty Start Date End Date Lila Clay, PT Physical Therapist Physical Therapy 04/05/21 [address] [place] [address] documented as of this encounter
--- OUTSIDE RECORDS SUMMARY | 2022-05-02 09:00 | XMS_ITS | Encounter Summary ---
:1955 Author Organization [facility] Address [address] [place] [address] Phone Care Team Providers Name Role Phone Unavailable Primary Care Provider Unavailable Encounter Details Date Type Department Care Team Description 08/18/2020 Orders Only [facility] Viral Cl Jonathan Sierra MD COVID-19 7650 [facility] N 701 [facility] G5 [place], [place] [address] [place], [place] [phone] (Wo rk) Social History Tobacco Use Types [...] with No / Unsure 08/20/2020 3:15 PM CUSTOMER ENGINEER someone who was confirmed or suspected to have Coronavirus / COVID-19? documented as of this encounter Plan of Treatment Not on filedocumented as of this encounter Visit Diagnoses Diagnosis COVID-19 documented in this encounter
--- OUTSIDE RECORDS SUMMARY | 2022-05-02 09:00 | XMS_ITS | Encounter Summary ---
:1955 Author Organization [facility] Address [address] [place] [address] Phone Care Team Providers Name Role Phone Provider, Outside Primary Care Provider Unavailable Reason for Visit Reason Onset Date Comments Medication Problem 01/10/2018 propantheline Encounter Details Date Type Department Care Team Description 01/10/2018 Nurse Triage Clinic & Specialty [facility] Problem Center Urology Clini c (propantheline) [address] [place] [address] [place] [address]40 4 [place], [place] [phone] Social History Tobacco Use Types Packs/Day Years [...] to me for years A-upon review of [facility] is was found that Dr Garcia has [...] or severe? n/a Protocols used: MEDICATION QUESTION [id number] documented in this encounter Plan of Treatment Not on filedocumented as of this encounter Visit Diagnoses Not on filedocumented in this encounter Care Teams Gullet Slitter Relationship Specialty Start Date End Date Provider, Outside PCP - General 03/13/09 10/22/18 [place] [address] documented as of this encounter
--- OUTSIDE RECORDS SUMMARY | 2022-05-02 09:00 | XMS_ITS | Encounter Summary ---
:1955 Author Organization [facility] Address 701 [place] [address] Phone Care Team Providers Name Role Phone Provider, Outside Primary Care Provider Unavailable Reason for Visit Reason Onset Date Comments Refill Request 12/27/2017 propantheline Medication Refill 01/08/2018 propantheline Encounter Details Date Type Department Care Team Description 12/27/2017 Refill Clinic & Specialty Monty Garcia MD Refill Request Center Urology Clini c [address] [facility] P5 (propantheline); [address] Medication Refill [place], [place] [phone] (propantheline) [phone] (Wo rk) Social History Tobacco Use Types [...] generic message for pt to call the [facility] and ask for a RN. [...] reviewed chart- no MITCHELL on file. Wale Russlel manual writer does have message to pass along, but no MITCHELL in the chart and cannot share info due to HIPPA. Charlene Russell said she understood. She requested we call Khanh and let him know the response. Yacht Master called Khanh and no answer. Left message [...] Center 02/01/2018 2:00 PM Monty Garcia MD [facility] UROLOGY [facility] Special documented in this encounter Plan of Treatment Not on filedocumented as of this encounter Visit Diagnoses Not on filedocumented in this encounter Care Teams Otr Van Cdl Truck Driver Relationship Specialty Start Date End Date Provider, Outside PCP - General 03/13/09 10/22/18 [place] [address] documented as of this encounter
--- OUTSIDE RECORDS SUMMARY | 2022-05-02 09:00 | XMS_ITS | Encounter Summary ---
:[address] [facility] Address [address] [place] [address] Phone Care Team Providers Name Role Phone Lila Clay PT Unavailable Reason for Visit Prior Authorization (Routine) - Closed Specialty Diagnoses / Procedures Referred By Contact Refer red To Contact Physical Therapy / Diagnoses Quadriplegia () At high risk for skin breakdown Impaired mobility Provider, Outside Lila Clay, PHYSICAL MEDICINE AND Procedures PT TREATMENT PLAN OUTSIDE PROVIDER PT REHAB [address] [address] Phone: Fax: Referral ID Status Reason Start Date Expiration Date Visits Requ ested Visits Authorized [id number] Closed 05/05/2021 01/20/2022 12 12 Encounter Details Date Type Department Care Team Description 06/09/2021 Hospital Encounter Clinic & Specialty Provider, Outside OUTSIDE PROVIDER [address] Contract Processor apy Lila Clay, PT [address] [place] [address] Social History Tobacco Use Types Packs/Day [...] Hospitalization: None Referring Provider: MD Yamile Alves, SPA RECEPTIONIST ?? Current Precautions/Contraindications: At high risk for skin breakdown, s/p flap surgery, current pressure injuries on feet [facility] Construction Millwright: no Patient gave two identifiers for Check 2 for Safety Total Treatment Time: 70 Min Pain: No significant complaints during session S: Pt presents to his PT session in his MWC, independently. Also present: Matthew Ricketts/[employer]. Last 30 min of the session, patient's QRC (Raquel Gamino, RN, PHN, MA P: [phone], F: [phone]) No significant changes; still attends wound clinic for B foot injuries weekly - missed yesterday so will be seen later this week. Pt agreed that he would like to try to adjust 1-2 items at a time; assess tolerance, and then move forward with additional changes as appropriate. Noticed that additional 'dump' is 'different' but tolerable. O: [Billable Units/Time] (15398) Wheelchair Management: 70 min Pt remained in [...] by 2? *Will request a demo from [facility], as PT looked and did not [...] require a new back frame to the [facility], but would provide additional depth to the [...] to be able to transfer in/out of [facility] independently. At end of session, all agreed [...] date include: Increased posterior seat dump on [facility] this date and pt tolerated well - [...] be obtained before then? Lila Clay PT [facility] License: #[id number] Pager: [phone] Office: [phone] E VICTIM SPECIALIST documented in this encounter Plan of Treatment Not on filedocumented as of this encounter Visit Diagnoses Not on filedocumented in this encounter Care Teams Diving Board Assembler Relationship Specialty Start Date End Date Lila Clay, PT Physical Therapist Physical Therapy 04/05/21 [address] [place] [address] documented as of this encounter
--- OUTSIDE RECORDS SUMMARY | 2022-05-02 09:00 | XMS_ITS | Encounter Summary ---
:1955 Author Organization [facility] Address [address] [place] [address] Phone Care Team Providers Name Role Phone [...] on filedocumented in this encounter Care Teams Cripple Cutter Relationship Specialty Start Date End Date Lila Clay, PT Physical Therapist Physical Therapy 04/05/21 [address] [place] [address] documented as of this encounter
--- OUTSIDE RECORDS SUMMARY | 2022-05-02 09:00 | XMS_ITS | Encounter Summary ---
:1955 Author Organization [facility] Address [address] [facility] [place] [address] Phone Care Team Providers Name Role Phone Lila Clay PT Unavailable Reason for Visit Reason Onset Date Comments Prior Authorization For Medications 09/03/2021 Boto x (onabotulinumtoxinA) Encounter Details Date Type Department Care Team Description 09/03/2021 Pharmacy Prior [facility] Sakshi Mcmanus, Authorization 701 [facility] PharmD P1.630 701 [place], [place] [address] 5 [place], [place] [phone] Social History Tobacco Use Types Packs/Day Years [...] the patient has active primary coverage through [facility] MEDICARE ADVANTAGE ([facility]). [facility] does NOT require prior authorization for BOTOX when it is given in the clinic/infusion center and billed on the medical claim (buy and bill). IMPORTANT - READ BELOW However, [facility] reimburses BOTOX only for select designated ICD-10/Diagnosis Codes. Based on review of the patient's chart, please (continue to) use the following COVERED diagnosis code for the visits in which the patient will receive BOTOX: - G82.50 or G82.54 Quadriplegia Update 01/27/2022 - Unable to get response from [facility]. Per 10/21/2021 note appears patient was going [...] on filedocumented in this encounter Care Teams Bark Press Operator Relationship Specialty Start Date End Date Lila Clay, PT Physical Therapist Physical Therapy 04/05/21 [address] [place] [address] documented as of this encounter
--- OUTSIDE RECORDS SUMMARY | 2022-05-02 09:00 | XMS_ITS | Encounter Summary ---
:1955 Author Organization [facility] Address 1 [place] [address] Phone Care Team Providers Name Role Phone Hallie Clay PT Unavailable Encounter Details Date Type Department Care Team Description 05/05/2021 Hospital Encounter Clinic & Specialty Alex [place] [address] [place] [address] [place] [address] Center Labor Training Manager apy Hallie Clay, PT [address] 5540 Social History Tobacco Use Types [...] Provider: Dr. Alex Mata, MD Yamile Conway, DISPENSING AUDIOLOGIST Current Precautions/Contraindications: At high risk for skin breakdown, s/p flap surgery, current pressure injuries on feet [facility] Channel Marketing Program Manager: no DIAGNOSIS Patient Active Problem List Diagnosis [...] prefer to work is BLANQUITA Brown of [employer] The vendor is not present during today's evaluation. 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 He has utilized a manual wheelchair as his primary means of mobility since then. He has a significant pressure injury history, including on his sacral area and feet. He received his current MWC through [employer] on 10/06/20. SUBJECTIVE Patient Complaints: I just [...] Function: Randy will cont to use his [facility] and rehab accessories to complete all MRADL's, [...] independently (with hand controls) while seated in [facility]) Does it fold/disassemble for transportation?: Yes Is [...] Flexion Elbow Extension Wrist Flexion Wrist Extension Color Coater Using BERNY hand dynamometer Lower Extremity Right MMT Left MMT WFL 0/5 0/5 Hip Flexion Hip Extension Hip Abduction Knee Flexion Knee Extension Dorsiflexion Inversion Eversion Plantar Flexion Great toe extension Normative teacher of gifted students strength values for Berny dynamometer for clinical [...] the wheelchair/mobility device?: Yes Wheelchair Management/Training (CPT 53919): 15 min during session(s) Pressure mapping completed [...] Specific Question: Schedule with: Answer: HALLIE CLAY [[id number]] Order Specific Question: Number of Visits patient [...] conditions documented in this encounter Care Teams Solution Analyst Relationship Specialty Start Date End Date Hallie Clay, PT Physical Therapist Physical Therapy 04/05/21 [address] [place] [address] documented as of this encounter
--- OUTSIDE RECORDS SUMMARY | 2022-05-02 09:00 | XMS_ITS | Encounter Summary ---
:[address] [facility] Address 1 [place] [address] Phone Care Team Providers Name Role Phone Provider, Outside Primary Care Provider Unavailable Reason for Visit Reason Onset Date Comments Other 2018 Encounter Details Date Type Department Care Team Description 2018 Telephone Clinic & Specialty Monty Garcia MD Appointment Center Urology Clini c [facility] Cancellation [address] [phone] (Wo rk) Social History Tobacco Use Types [...] on filedocumented in this encounter Care Teams Machine Edge Bander Relationship Specialty Start Date End Date Provider, Outside PCP - General 8/21/09 4/1/19 [place] [address] documented as of this encounter
--- OUTSIDE RECORDS SUMMARY | 2022-05-02 09:00 | XMS_ITS | Encounter Summary ---
:1955 Author Organization [facility] Address [address] [place] [address] Phone Care Team Providers Name Role Phone Lila Clay PT Unavailable Reason for Visit Prior Authorization (Routine) - Closed Specialty Diagnoses / Procedures Referred By Contact Refer red To Contact Physical Therapy / Diagnoses Quadriplegia () At high risk for skin breakdown Impaired mobility Provider, Outside Lila Clay, PHYSICAL MEDICINE AND Procedures PT TREATMENT PLAN OUTSIDE PROVIDER PT REHAB [address] [address] Phone: Fax: Referral ID Status Reason Start Date Expiration Date Visits Requ ested Visits Authorized [id number] Closed 05/05/2021 01/20/2022 12 12 Encounter Details Date Type Department Care Team Description 06/02/2021 Hospital Encounter Clinic & Specialty Provider, Outside OUTSIDE PROVIDER [address] Batch Unit Treater apy Lila Clay, PT [id number] [place] [address] Social History Tobacco Use Types Packs/Day [...] Hospitalization: None Referring Provider: MD Yamile Alves, FORMAL SERVICE WAITER ?? Current Precautions/Contraindications: At high risk for skin breakdown, s/p flap surgery, current pressure injuries on feet [facility] Cone Sewer: no Patient gave two identifiers for Check [...] additional changes as appropriate. O: [Billable Units/Time] (69074) Wheelchair Management: 60 min Transfer MWC/mat table [...] passive IR/ER WNL. Adjustments made to patient's [facility] this date: +Increased posterior seat dump by 1 +lowered footplates B by approximately 1 Pt returned to sitting in [facility] at end of session, able to self [...] Clay, PT ATP [place] License: #[id number] Pager: [phone] Office: [phone] YSIS REPORTING DEVELOPER documented in this encounter Plan of Treatment Not on filedocumented as of this encounter Visit Diagnoses Not on filedocumented in this encounter Care Teams Raised Printer Relationship Specialty Start Date End Date Lila Clay, PT Physical Therapist Physical Therapy 04/05/[address] [place] [address] documented as of this encounter
--- OUTSIDE RECORDS SUMMARY | 2022-05-02 09:00 | XMS_ITS | Encounter Summary ---
:1955 Author Organization [facility] Address [address] [place] [address] Phone Care Team Providers Name Role Phone Hallie Clay PT Unavailable Reason for Referral Prior Authorization (Routine) - Closed Specialty Diagnoses / Procedures Referred By Contact Refer red To Contact Physical Therapy / Diagnoses Quadriplegia () At high risk for skin breakdown Impaired mobility Provider, Outside Hallie Clay, PHYSICAL MEDICINE AND Procedures PT TREATMENT PLAN OUTSIDE PROVIDER PT REHAB [place], [place] [id number] [place] [address] Phone: Fax: Referral ID Status Reason Start Date Expiration Date Visits Requ ested Visits Authorized [id number] Closed 05/05/2021 01/20/2022 12 12 EDURE MANAGER Reason for Visit Prior Authorization (Routine) - Closed Specialty Diagnoses / Procedures Referred By Contact Refer red To Contact Physical Therapy / Diagnoses Quadriplegia () At high risk for skin breakdown Impaired mobility Provider, Outside Hallie Clay, PHYSICAL MEDICINE AND Procedures PT TREATMENT PLAN OUTSIDE PROVIDER PT REHAB [place], [place] [id number] [place] [address] Phone: Fax: Referral ID Status Reason Start Date Expiration Date Visits Requ ested Visits Authorized [id number] Closed 05/05/2021 01/20/2022 12 12 Encounter Details Date Type Department Care Team Description 07/14/2021 Hospital Encounter Clinic & Specialty Provider, [place] [address] Center Casino Cashier Manager apHallie Hopkins, PT [address] 5540 Social History Tobacco Use Types [...] Signature: Date: 07/14/2021 Date: Please return to: [facility] Clinic and Specialty Center Physical Therapy [address] [address] RECERTIFICATION SUMMARY New Recertification period: 07/14/21 to [...] Recent Hospitalization:??None?? Referring Provider:?? MD Yamile Alves, RECONCILIATION SPECIALIST ?? Current Precautions/Contraindications:?At high risk for skin breakdown, s/p flap surgery, currentpressure injuries on feet [facility] Patient Escort:?no ?? Patient gave two identifiers for Check 2 for Safety Total Treatment Time: 55 Min ?? Pain: No significant complaints during session ?? S: Pt presents to his PT session in his [facility], independently. Also present: Matthew Ricketts/[employer]. 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 ?? O: [Billable Units/Time] ?? (65484) Wheelchair Management: 55 min Pressure mapping completed [...] up with B UE's for having pressure electronic device repairer placed over, completed with CGA) +Sitting on [...] Recommend removing foam sole, and placing nonskid surface/section gang bottom instead (lowest height possible) 4) Inside [...] - thank you. Hallie Clay, PT ATP [phone] [email or web address] Printed above information for patient to bring with to his cartridge feeder as well as to his Ortho MD [...] stabilizer? Hallie Clay, PT ATP [place] License: #[id number] Pager: [phone] Office: [phone] ? Recertification Assessment of need for continued skilled physical therapy interventions: Patient continues to make steady progress toward short term and residential goals which have been updated to reflect [...] Specific Question: Schedule with: Answer: HALLIE CLAY [[id number]] Order Specific Question: Number of Visits patient [...] Specific Question: Schedule with: Answer: HALLIE CLAY [[id number]] Order Specific Question: Number of Visits patient should be scheduled for? Answer: 1 Order Specific Question: Modalities and Procedures Answer: Procedures Order Specific Question: Procedure Answer: Functional Activities Order Specific Question: Procedure Answer: Neuromuscular Re-education Order Specific Question: Procedure Answer: Self Care/Home Management/ADL Order Specific Question: Procedure Answer: Wheelchair Management and Training Hallie Clay PT ATP Date [place] License: #[id number] Pager: [phone] Office: [phone] EDURE MANAGER documented in this encounter Plan of Treatment Not on filedocumented as of this encounter Visit Diagnoses Diagnosis Quadriplegia () Quadriplegia, unspecified At high risk for skin breakdown Other specified conditions influencing h ealth status Impaired mobility Other ill-defined conditions documented in this encounter Care Teams Sewer Builder Relationship Specialty Start Date End Date Hallie Clay PT Physical Therapist Physical Therapy 04/05/[address] [place] [address] documented as of this encounter
--- OUTSIDE RECORDS SUMMARY | 2022-05-02 09:00 | XMS_ITS | Encounter Summary ---
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 documented as of this encounter Plan of Treatment Not on filedocumented as of this encounter Visit Diagnoses Not on filedocumented in this encounter
--- OUTSIDE RECORDS SUMMARY | 2022-05-02 09:00 | XMS_ITS | Clinical Summary ---
:1955 Author Organization [facility] Address [address] [place] [address] Phone Care Team Providers Name Role Phone Lila Clay PT Unavailable Source Comments [employer] is fully rolled out on [employer]. Last update 12/26/08.[facility] Allergies Active Allergy Reactions Severity Noted Date [...] Comments Blood Pressure 135/74 09/02/2021 8:12 AM [employer] Pulse 72 09/02/2021 8:12 AM [employer] Temperature 36.2 ??C (97.1 ??F) 09/15/2016 8:09 AM [employer] Respiratory Rate 14 04/20/2010 1:39 PM CDT [...] 2019 64 YRS COVID-19 Vaccine (3 - 11/09/2020 09/14/2020, 08/20/2020 Booster for Pfizer series) INFLUENZA VACCINE 03/24/2022 05/24/2012, 05/24/2012, 03/25/2011, Additional history exists HIB Aged Out No longer eligib le based on patient 's age to complete this topic HPV Aged Out No longer eligib le based on patient 's age to complete this topic Insurance Payer Benefit Plan Subscriber ID Effective Phone Address Typ e / Group Dates [facility] [id number] 1989-Pre [phone] [address] Work Comp [employer] sent [address] [employer] [place] [address] [facility] [id number] 2020-Pres [address] [facility] (MEDICARE ent [id number] Managed Care ADVANTAGE) [place] [address] [id number] Workers Comp Employer 1955 % Cb ert (Home) [place] [address] [address] [address] Care Teams Senior Counsel Commercial Relationship Specialty Start Date End Date Lila Clay, PT Physical Therapist Physical Therapy 04/05/21 [address] [place] [address]
--- OUTSIDE RECORDS SUMMARY | 2022-05-02 09:01 | XMS_ITS | Encounter Summary ---
:1955 Author Organization [facility] Address [address] [place] [address] Phone Care Team Providers Name Role Phone Provider, Outside Primary Care Provider Unavailable Reason for Visit Reason Comments Other Encounter Details Date Type Department Care Team Description 02/05/2016 Refill [facility] Urology Clinic Monty Morales MD Other [address] [facility], [address] 5540 4 [place] [address] [phone] (Wo rk) Social History Tobacco Use Types [...] on filedocumented in this encounter Care Teams Fighter Pilot Relationship Specialty Start Date End Date Provider, Outside PCP - General 03/13/09 10/22/18 [place] [address] documented as of this encounter
--- OUTSIDE RECORDS SUMMARY | 2022-05-02 09:01 | XMS_ITS | Encounter Summary ---
:1955 Author Organization [facility] Address [address] [place] [address] Phone Care Team Providers Name Role Phone Provider, Outside Primary Care Provider Unavailable Encounter Details Date Type Department Care Team Description 02/05/2016 Orders Only [facility] Monty Garcia, Neur ogenic bladder Yordy FALCON (Primary Dx) [address], [address] [facility] [address] [place], [place] [phone] Social History Tobacco Use Types Packs/Day Years [...] Reading Radiologist: Alex Nava Reading Resident: Lorna Bowesn 10/07/2016 3:49 PM CDT History: Nephrolithiasis. Comparison: [...] NOS documented in this encounter Care Teams Manager R D Relationship Specialty Start Date End Date Provider, Outside PCP - General 03/13/09 10/22/18 OUTSIDE PROVIDER [address] documented as of this encounter
--- OUTSIDE RECORDS SUMMARY | 2022-05-02 09:01 | XMS_ITS | Encounter Summary ---
:1955 Author Organization [facility] Address [address] [place] [address] Phone Care Team Providers Name Role Phone Provider, Outside Primary Care Provider Unavailable Reason for Visit Reason Onset Date Comments Medication Refill 11/11/2016 propantheline (PRO-B ANTHINE) Encounter Details Date Type Department Care Team Description 11/11/2016 Refill [facility] [place] Selena Garcia MD Medication Refill Burns 701 [facility] P[facility] (propantheline [address] [place], [place] (PRO-BANTHINE) ) [place], [place] [phone] (Wo rk) Social History Tobacco Use Types [...] mg oral tablet Pharmacy Name and Location: [facility] [address] [place] [phone] - [phone] [place] [address] Phone number for return call: .[phone] Did caller contact the pharmacy? yes: pharmacy [...] filedocumented in this encounter Care Teams Manager Culture Relationship Specialty Start Date End Date Provider, Outside PCP - General 03/13/09 10/22/18 [place] [address] documented as of this encounter
--- OUTSIDE RECORDS SUMMARY | 2022-05-02 09:01 | XMS_ITS | Encounter Summary ---
:1955 Author Organization [facility] Address [address] [place] [address] Phone Care Team Providers Name Role Phone Provider, Outside Primary Care Provider Unavailable Encounter Details Date Type Department Care Team Description 10/21/2014 Telephone [facility] Urology Clinic Omar Reyes MD [address] , [address] Research Only [place], [place] [address] Social History Tobacco Use Types [...] on filedocumented in this encounter Care Teams Wildland Fire Operations Specialist Relationship Specialty Start Date End Date Provider, Outside PCP - General 03/13/09 10/22/18 [place] [address] documented as of this encounter
--- OUTSIDE RECORDS SUMMARY | 2022-05-02 09:01 | XMS_ITS | Encounter Summary ---
:1955 Author Organization [facility] Address [address] [place] [address] Phone Care Team Providers Name Role Phone Provider, Outside Primary Care Provider Unavailable Reason for Visit Reason Onset Date Comments Refill Request 09/05/2013 macrodantin Encounter Details Date Type Department Care Team Description 09/05/2013 Refill [facility] Omar Savage MD Refill Request [facility] Only (macrodantin) [address] [place], [place] [address] Social History Tobacco Use Types [...] Savage, med send to to co sign. ACTION ASSEMBLER documented in this encounter Plan of Treatment Not on filedocumented as of this encounter Visit Diagnoses Diagnosis Neurogenic bladder - Primary Neurogenic bladder, NOS documented in this encounter Care Teams Toter Relationship Specialty Start Date End Date Provider, Outside PCP - General 03/13/09 10/22/18 [place] [address] documented as of this encounter
--- OUTSIDE RECORDS SUMMARY | 2022-05-02 09:01 | XMS_ITS | Encounter Summary ---
:1955 Author Organization [facility] Address [address] [place] [address] Phone Care Team Providers Name Role Phone Provider, Outside Primary Care Provider Unavailable Reason for Visit Reason Onset Date Comments Refill Request 12/17/2013 Propantheline Encounter Details Date Type Department Care Team Description 12/17/2013 Refill [facility] Urology Clinic Omar Savage MD Refill Request [facility] (Propantheline) [address] [facility], [address] [place], [place] [address] Social History Tobacco Use Types [...] on filedocumented in this encounter Care Teams Psychometrist Relationship Specialty Start Date End Date Provider, Outside PCP - General 03/13/09 10/22/18 [place] [address] documented as of this encounter
--- OUTSIDE RECORDS SUMMARY | 2022-05-02 09:01 | XMS_ITS | Encounter Summary ---
:1955 Author Organization [facility] Address [address] [place] [address] Phone Care Team Providers Name Role Phone Provider, Outside Primary Care Provider Unavailable Reason for Visit Reason Onset Date Comments Refill Request 12/23/2016 Encounter Details Date Type Department Care Team Description 12/23/2016 Refill [facility] Divya Caraballo RN Refill Request [address] [facility], [address] 701 [place], [place] [address] 4 [place] [address] Social History Tobacco Use Types Packs/Day Years [...] filedocumented in this encounter Care Teams Manager Acquisition Relationship Specialty Start Date End Date Provider, Outside PCP - General 03/13/09 10/22/18 [place] [address] documented as of this encounter
--- OUTSIDE RECORDS SUMMARY | 2022-05-02 09:01 | XMS_ITS | Encounter Summary ---
:1955 Author Organization [facility] Address [address] [place] [address] Phone Care Team Providers Name Role Phone Provider, Outside Primary Care Provider Unavailable Reason for Visit Reason Comments Other Encounter Details Date Type Department Care Team Description 05/22/2016 Refill [facility] Monty Morales MD Other [address] [facility], [address]40 4 [place] [address] [phone] (Wo rk) Social History Tobacco Use Types [...] received in Urology Clinic from the pt's [facility], for propantheline and nitrofurantoin. Records are [...] NOS documented in this encounter Care Teams Retail Loss Prevention Officer Relationship Specialty Start Date End Date Provider, Outside PCP - General 03/13/09 10/22/18 [place] [address] documented as of this encounter
--- OUTSIDE RECORDS SUMMARY | 2022-05-02 09:01 | XMS_ITS | Encounter Summary ---
:1955 Author Organization [facility] Address [address] [place] [address] Phone Care Team Providers Name Role Phone Provider, Outside Primary Care Provider Unavailable Encounter Details Date Type Department Care Team Description 09/07/2012 Letters(Tab) [facility] Omar Reyes MD [address] [place] [address], [address] Research Only [place], [place] [address] Social History Tobacco Use Types Packs/Day Years Used Date Smoking Tobacco: Former Cigarettes Cigars Smokeless Tobacco: Never Alcohol Use Standard Drinks/Week Comments Yes 3.3 (1 standard drink = 0.6 oz pure alco hol) once in while Sex Assigned at Date Recorded Not on file documented as of this encounter Progress Notes Omar Savage MD - 09/07/2012 7:45 AM CST [facility] [address] [place], [place] [address] September 07, 2012 TO: Micheal Fletcher [address] [address] [address] RE:MICHEAL FLETCHER MR#:[id number] :1955 Dear Mr. Fletcher: From your recent Urology Clinic visit, your urine culture grew only mixed gram-positive organisms, which are not considered an infection. Please feel free to contact me for questions. Best wishes. Looking forward to seeing you at your next scheduled visit. Sincerely, Omar Savage MD Staff Physician Surgery Service Received in Software Firmware Engineer: 09/07/2012 07:32 M: 09/07/2012 07:45 cn CS/cn Voice ID: [id number] Document ID: [id number] cc:MICHEAL FLETCHER [id number] [place] [address] N RESOURCES REPRESENTATIVE documented in this encounter Plan of Treatment Not on filedocumented as of this encounter Visit Diagnoses Not on filedocumented in this encounter Care Teams Technical Delivery Manager Relationship Specialty Start Date End Date Provider, Outside PCP - General 03/13/09 10/22/18 [place] [address] documented as of this encounter
--- OUTSIDE RECORDS SUMMARY | 2022-05-02 09:01 | XMS_ITS | Encounter Summary ---
:1955 Author Organization [facility] Address [address] [place] [address] Phone Care Team Providers Name Role Phone Provider, Outside Primary Care Provider Unavailable Reason for Visit Reason Onset Date Comments Refill Request 07/05/2016 Encounter Details Date Type Department Care Team Description 07/05/2016 Refill [facility] [place] Divya Caraballo RN Refill Request [address] [facility] [place], [place] [address] 4 [place] [address] Social History Tobacco Use Types Packs/Day Years [...] NOS documented in this encounter Care Teams Carver Hand Relationship Specialty Start Date End Date Provider, Outside PCP - General 03/13/09 10/22/18 [place] [address] documented as of this encounter
--- OUTSIDE RECORDS SUMMARY | 2022-05-02 09:01 | XMS_ITS | Encounter Summary ---
:1955 Author Organization [facility] Address [address] [place] [address] Phone Care Team Providers Name Role Phone Provider, Outside Primary Care Provider Unavailable Reason for Visit Reason Onset Date Comments Refill Request 10/06/2016 re: Macrodantin Encounter Details Date Type Department Care Team Description 10/06/2016 Telephone [facility] [place] [facility] Divya Avendano Refi ll Request (re: Yordy ASH Macrodantin) [address] , [address] [place], [place] [address] [place], [place] [phone] Social History Tobacco Use Types Packs/Day Years [...] on filedocumented in this encounter Care Teams Shade Maker Relationship Specialty Start Date End Date Provider, Outside PCP - General 03/13/09 10/22/18 [place] [address] documented as of this encounter
--- OUTSIDE RECORDS SUMMARY | 2022-05-02 09:01 | XMS_ITS | Encounter Summary ---
:1955 Author Organization [facility] Address [address] [place] [address] Phone Care Team Providers Name Role Phone Provider, Outside Primary Care Provider Unavailable Reason for Visit Reason Comments Other Encounter Details Date Type Department Care Team Description 02/20/2013 Telephone [facility] Omar Reyes MD [address] [facility], [address] Research Only [place], [place] [address] Social History [...] Hussein Giron to refill Pro-Banthine. VORB Notified [facility] pharmacy at [phone]. Telephone Encounter - Danna Alvarez RN - [...] verbal refill request for Propantheline. Please call [phone] Expects Return Call at: ------ documented in this encounter Plan of Treatment Not on filedocumented as of this encounter Visit Diagnoses Not on filedocumented in this encounter Care Teams Machinist Helper Marine Relationship Specialty Start Date End Date Provider, Outside PCP - General 03/13/09 10/22/18 [place] [address] documented as of this encounter
--- OUTSIDE RECORDS SUMMARY | 2022-05-02 09:01 | XMS_ITS | Encounter Summary ---
:1955 Author Organization [facility] Address [address] [place] [address] Phone Care Team Providers Name Role Phone Provider, Outside Primary Care Provider Unavailable Reason for Referral Consult/Test/Treat (Routine) - Closed Specialty Diagnoses / Procedures Referred By Contact Refer red To Contact Physical Therapy Diagnoses Decubitus ulcer Sameera Frances MD [address] [place], [place] [address] Referral ID Status Reason Start Date Expiration Date Visits Requ ested Visits Authorized [id number] Closed 01/17/2011 01/18/2012 1 1 Reason for Visit Reason Comments Neurologic Problem Encounter Details Date Type Department Care Team Description 01/17/2011 Office Visit [facility] Phys Med/Rehab Sameera Frances D ecubitus ulcer Clinic (Primary Dx) [address] [place], [place] [address] [place], [place] [phone] (Wo rk) Social History Tobacco Use Types [...] site documented in this encounter Care Teams Product Safety Test Engineer Relationship Specialty Start Date End Date Provider, Outside PCP - General 03/13/09 10/22/18 [place] [address] documented as of this encounter
--- OUTSIDE RECORDS SUMMARY | 2022-05-02 09:01 | XMS_ITS | Encounter Summary ---
:1955 Author Organization [facility] Address [address] [place] [address] Phone Care Team Providers Name Role Phone Provider, Outside Primary Care Provider Unavailable Reason for Visit Reason Comments Neurologic Problem pmr Encounter Details Date Type Department Care Team Description 12/27/[address] [facility] [place] Phys Med/Rehab Abhinav Chavez MD NEED ADDRESS Ulcer () (Primary Clinic Sameera Frances MD [address] [place] [address] Dx) [address] [place], [place] [address] Social History Tobacco Use Types [...] site documented in this encounter Care Teams Railway Signal Electrician Relationship Specialty Start Date End Date Provider, Outside PCP - General 03/13/09 10/22/18 [place] [address] documented as of this encounter
--- OUTSIDE RECORDS SUMMARY | 2022-05-02 09:01 | XMS_ITS | Encounter Summary ---
:1955 Author Organization [facility] Address [address] [place] [address] Phone Care Team Providers Name Role Phone Provider, Outside Primary Care Provider Unavailable Reason for Visit Reason Onset Date Comments Other 02/05/2016 Encounter Details Date Type Department Care Team Description 02/05/2016 Telephone [facility] Selena Garcia MD plan of care [place] [address] [place] [address] [address] [facility], [address] [place] [address] [place], [place] [address] [phone] Social History Tobacco Use Types Packs/Day Years [...] on filedocumented in this encounter Care Teams Help Desk Intern Relationship Specialty Start Date End Date Provider, Outside PCP - General 03/13/09 10/22/18 [place] [address] documented as of this encounter
--- OUTSIDE RECORDS SUMMARY | 2022-05-02 09:01 | XMS_ITS | Encounter Summary ---
:1955 Author Organization [facility] Address [address] [place] [address] Phone Care Team Providers Name Role Phone Provider, Outside Primary Care Provider Unavailable Reason for Visit Reason Comments Bladder Problem Encounter Details Date Type Department Care Team Description 01/26/2015 Office Visit [facility] [place] Monty Garcia Neur ogenic bladder Yordy FALCON (Primary Dx) [address] , [address] [facility] [address] [place], [place] [phone] Social History Tobacco Use Types Packs/Day Years [...] - 01/26/2015 4:13 PM CDT [facility] CL[facility]IC [facility] NEW PATIENT/CONSULT VISIT Khanh Rene : 1955 [...] NOS documented in this encounter Care Teams Emergency Doctor Relationship Specialty Start Date End Date Provider, Outside PCP - General 03/13/09 10/22/18 [place] [address] documented as of this encounter
--- OUTSIDE RECORDS SUMMARY | 2022-05-02 09:01 | XMS_ITS | Encounter Summary ---
:1955 Author Organization [facility] Address [address] [place] [address] Phone Care Team Providers Name Role Phone Provider, Outside Primary Care Provider Unavailable Reason for Visit Reason Comments Follow-up Encounter Details Date Type Department Care Team Description 12/06/2010 Office Visit [facility] [place] Phys Med/Rehab Sameera Frances U lcer () (Primary Clinic MD Dx) [address] [facility] [address] [place], [place] [address] [place], [place] [phone] (Wo rk) Social History Tobacco Use Types [...] site documented in this encounter Care Teams Technical Education Teacher Relationship Specialty Start Date End Date Provider, Outside PCP - General 03/13/09 10/22/18 [place] [address] documented as of this encounter
--- OUTSIDE RECORDS SUMMARY | 2022-05-02 09:01 | XMS_ITS | Encounter Summary ---
:1955 Author Organization [facility] Address [address] [place] [address] Phone Care Team Providers Name Role Phone Provider, Outside Primary Care Provider Unavailable Reason for Visit Reason Comments Follow-up Encounter Details Date Type Department Care Team Description 09/03/2012 Office Visit [facility] U[facility] Clinic Pooja Krueger MD [address] [facility] [address] [place], [place] [id number] Neurogenic bladder [place] Omar Savage MD Research Only (Primary Dx) [address], [address] [place], [place] [address] Social History Tobacco Use Types [...] Comments Blood Pressure 112/64 09/03/2012 1:52 PM MANAGER FILE Pulse 68 09/03/2012 1:52 PM MANAGER FILE Temperature - - Respiratory Rate - - Oxygen Saturation - - Inhaled Oxygen Concentration - - Weight - - Height - - Body Mass Index - - documented in this encounter Progress Notes Omar Savage MD - 09/04/2012 8:32 PM CST [facility] [address] [facility], [address] [place] [address] (fax) [facility]#: [id number] PATIENT: MICHEAL RENE : 1955 DATE: 09/03/2012 [...] MD Staff Physician Surgery Service Received in Python Programmer: 09/04/2012 12:20 M: 09/04/2012 20:32 [facility]/ Voice ID: [id number] Document ID: [id number] GER FILE Omar Savage MD - 09/04/2012 12:19 PM CST This office note has been dictated. GER FILE documented in this encounter Plan of Treatment Not on filedocumented as of this encounter Procedures Procedure Name Priority Date/Time Associated Diagnosis Comme nts URINE CULTURE Routine 09/03/2012 2:22 PM Neurogenic bladder Re sults for this MANAGER FILE procedure are i n the results section. URINALYSIS,TOTAL Routine 09/03/2012 2:22 PM Neurogenic bladder Results for this MANAGER FILE procedure are i n the results section. documented in this encounter Results URINE CULTURE (09/03/2012 2:22 PM MANAGER FILE) [facility] Method Time Signature Urine Cult [facility] ? PROCEDURE: MB Urine Culture ?SOURCE: Urine Midstream ?COLLECTED: 09/03/2012 14:22 ? BODY SITE: ?FREE TEXT SOURCE: ?STARTED: 09/03/2012 15:35 ? FINAL REPORT Final Report Verified:09/05/2012 13:06 50,000 - 100,000 organisms/ml Mixed gram positive arthur. No further work-up. Specimen Anatomical Collection Method Collection Time Receive d Time (Source) Location / / Volume Laterality Urine Midstream. 09/03/2012 2:22 PM 09/03 3:34 (Urine) MANAGER FILE PM MANAGER FILE Omar Savage MD LAB MICROBIOLOGY Performing Organization Address City/State/ZIP Code Phon e Number [facility] [place] [address] (ABNORMAL) URINALYSIS, TOTAL (09/03/2012 2:22 PM MANAGER FILE) athologist Signature Color YELLOW YELLOW [facility] Appearance CLEAR CLEAR [facility] Urine Glucose NEGATIVE NEGATIVE [facility] Bili UA NEGATIVE NEGATIVE [facility] Comment: Confirmatory test not available . Ketones NEGATIVE NEGATIVE [facility] Specific [place] 1.016 1.003 - 1.030 [facility] Blood Ur NEGATIVE Neg-Trace [facility] PH Urine 6.5 5.0 - 7.0 [facility] Protein Ur NEGATIVE Neg-Trace [facility] Urobilinogen 1.0 0.2 - 1.0 EU/dL [facility] Nitrite Ur NEGATIVE NEGATIVE [facility] Leuk Est SMALL (A) Neg-Trace [facility] WBC Ur 6-20 (A) 0 - 5 perHPF [facility] RBC Ur 0-5 0 - 5 perHPF [facility] SQ EPITH 2+ 1+ [facility] Specimen Anatomical Collection Method Collection Time Receive d Time (Source) Location / / Volume Laterality Urine 09/03/2012 2:22 PM 3 2:51 MANAGER FILE PM MANAGER FILE Omar Savage MD LABORATORY Performing Organization Address City/State/ZIP Code Phon e Number [facility] [place] [address] documented in this encounter Visit Diagnoses Diagnosis Neurogenic bladder - Primary Neurogenic bladder, NOS documented in this encounter Care Teams Tree Planter Relationship Specialty Start Date End Date Provider, Outside PCP - General 03/13/09 10/22/18 [place] [address] documented as of this encounter
--- OUTSIDE RECORDS SUMMARY | 2022-05-02 09:01 | XMS_ITS | Encounter Summary ---
:1955 Author Organization [facility]Note 3[facility] Address [address] [place] [address] Phone Care Team Providers Name Role Phone Provider, Outside Primary Care Provider Unavailable Reason for Visit Reason Comments Follow-up NEUROGENIC BLADDER Encounter Details Date Type Department Care Team Description 09/15/2016 Office Visit [facility] Urology Clinic Monty Garcia Neur ogenic bladder Yordy FALCON (Primary Dx) [address] , [address] [place] [address] [place], [place] [address] [phone] Social History Tobacco Use Types Packs/Day Years [...] Comments Blood Pressure 129/74 09/15/2016 8:09 AM CRIMINAL JUSTICE PROGRAM DIRECTOR Pulse 75 09/15/2016 8:09 AM CRIMINAL JUSTICE PROGRAM DIRECTOR Temperature 36.2 ??C (97.1 ??F) 09/15/2016 8:09 AM CRIMINAL JUSTICE PROGRAM DIRECTOR Respiratory Rate - - Oxygen Saturation - [...] fevers. Patient has had several admissions at [facility] for decubitus ulcers in the last [...] MD, 09/15/2016 9:14 AM Urology Staff Pager: [phone] INAL JUSTICE PROGRAM DIRECTOR documented in this encounter Plan of Treatment Not on filedocumented as of this encounter Visit Diagnoses Diagnosis Neurogenic bladder - Primary Neurogenic bladder, NOS documented in this encounter Care Teams Cashier Or Checker Stock Clerk Relationship Specialty Start Date End Date Provider, Outside PCP - General 03/13/09 10/22/18 [place] [address] documented as of this encounter
--- OUTSIDE RECORDS SUMMARY | 2022-05-02 09:01 | XMS_ITS | Encounter Summary ---
:1955 Author Organization [facility] Address [address] [place] [address] Phone Care Team Providers Name Role Phone Provider, Outside Primary Care Provider Unavailable Encounter Details Date Type Department Care Team Description 10/07/2016 Hospital Encounter [facility] [place] Monty Garcia MD [address] [place] [address] [address] [place], [place] [phone] (Wo rk) Social History Tobacco Use Types [...] NOS documented in this encounter Care Teams Miner Placer Relationship Specialty Start Date End Date Provider, Outside PCP - General 03/13/09 10/22/18 [place] [address] documented as of this encounter
--- OUTSIDE RECORDS SUMMARY | 2022-05-02 09:01 | XMS_ITS | Encounter Summary ---
:1955 Author Organization [facility] Address [address] [place] [address] Phone Care Team Providers Name Role Phone Provider, Outside Primary Care Provider Unavailable Reason for Visit Reason Onset Date Comments Refill Request 09/05/2016 Encounter Details Date Type Department Care Team Description 09/05/2016 Refill [facility] [place] Divya Caraballo RN Refill Request [address] [facility], [address] [place], [place] [address] [place] [address] Social History Tobacco Use Types Packs/Day Years [...] NOS documented in this encounter Care Teams Medical Consultant Relationship Specialty Start Date End Date Provider, Outside PCP - General 03/13/09 10/22/18 [place] [address] documented as of this encounter
--- OUTSIDE RECORDS SUMMARY | 2022-05-02 09:01 | XMS_ITS | Encounter Summary ---
:1955 Author Organization [facility] Address [address] [facility] [place] [address] Phone Care Team Providers Name Role Phone Provider, Outside Primary Care Provider Unavailable Reason for Visit Reason Comments Follow-up Encounter Details Date Type Department Care Team Description 02/14/2011 Office Visit [facility] Phys Med/Rehab Sameera Frances D ecubitus ulcer Clinic (Primary Dx) [address] [facility] [address] [place], [place] [address] [place], [place] [phone] (Wo rk) Social History Tobacco Use Types [...] site documented in this encounter Care Teams Gas Main Fitter Helper Relationship Specialty Start Date End Date Provider, Outside PCP - General 03/13/09 10/22/18 [place] [address] documented as of this encounter
--- OUTSIDE RECORDS SUMMARY | 2022-05-02 09:01 | XMS_ITS | Encounter Summary ---
:1955 Author Organization [facility] Address [address] [place], [place] [address]. [place] [address] Phone Care Team Providers Name Role Phone Provider, Outside Primary Care Provider Unavailable Reason for Visit Reason Comments Follow-up Encounter Details Date Type Department Care Team Description 06/06/2013 Office Visit [facility] [place] Omar Savage, Neurog enic bladder Yordy FALCON (Primary Dx) [address], [address] [place], [place] [address] Social History Tobacco Use Types [...] Comments Blood Pressure 88/58 06/06/2013 11:33 AM BENEFITS TECHNICIAN Pulse 79 06/06/2013 11:33 AM BENEFITS TECHNICIAN Temperature 36.8 ??C (98.2 ??F) 06/06/2013 11:33 AM BENEFITS TECHNICIAN Respiratory Rate - - Oxygen Saturation - - Inhaled Oxygen Concentration - - Weight - - Height - - Body Mass Index - - documented in this encounter Patient Instructions Patient InstructionsOmar Savage MD - 06/06/2013 11:42 AM CST [facility] forwarded to us FITS TECHNICIAN documented in this encounter Progress Notes Omar Savage MD - 06/08/2013 8:17 AM CST [facility] [address], [address] [place] [address] (fax) [facility]#: [id number] PATIENT: MICHEAL FLETCHER : 1955 DATE: 06/06/2013 [...] MD Staff Physician Surgery Service Received in Small Machine Bindery Operator: 06/08/2013 05:34 M: 06/08/2013 08:17 filiberto STEWART/filiberto Voice ID: [id number] Document ID: [id number] FITS TECHNICIAN Omar Savage MD - 06/08/2013 5:32 AM CST This office note has been dictated. FITS TECHNICIAN documented in this encounter Plan of Treatment Not on filedocumented as of this encounter Visit Diagnoses Diagnosis Neurogenic bladder - Primary Neurogenic bladder, NOS documented in this encounter Care Teams Academic Affairs Specialist Relationship Specialty Start Date End Date Provider, Outside PCP - General 03/13/09 10/22/18 [place] [address] documented as of this encounter
--- OUTSIDE RECORDS SUMMARY | 2022-05-02 09:01 | XMS_ITS | Encounter Summary ---
:1955 Author Organization [facility] Address [address] [place] [address] Phone Care Team Providers Name Role Phone Provider, Outside Primary Care Provider Unavailable Reason for Visit Reason Onset Date Comments Refill Request 10/22/2014 Encounter Details Date Type Department Care Team Description 10/22/2014 Refill [facility] Tree Vaughan, Refill Request [address] [facility], [address] [place], [place] [address] [address] [place] [address] [place], [place] [address] (Wo rk) Social History Tobacco Use Types [...] NOS documented in this encounter Care Teams Cable Puller Relationship Specialty Start Date End Date Provider, Outside PCP - General 03/13/09 10/22/18 [place] [address] documented as of this encounter
--- OUTSIDE RECORDS SUMMARY | 2022-05-02 09:01 | XMS_ITS | Encounter Summary ---
:1955 Author Organization [facility] Address [address] [place] [address] Phone Care Team Providers Name Role Phone Provider, Outside Primary Care Provider Unavailable Reason for Visit Reason Comments Other Encounter Details Date Type Department Care Team Description 01/17/2012 Telephone [facility] Urology Clinic Omar Reyes MD [address] [facility], [address] Research Only [place], [place] [address] Social History Tobacco Use Types [...] Outside Provider Comment: Expects Return Call at: [phone] documented in this encounter Plan of Treatment Not on filedocumented as of this encounter Visit Diagnoses Not on filedocumented in this encounter Care Teams Airworthiness Safety Inspector Relationship Specialty Start Date End Date Provider, Outside PCP - General 03/13/09 10/22/18 [place] [address] documented as of this encounter
--- OUTSIDE RECORDS SUMMARY | 2022-05-02 09:02 | XMS_ITS | Encounter Summary ---
:1955 Author Organization [facility] Address [address] [place] [address] Phone Care Team Providers Name Role Phone Provider, Outside Primary Care Provider Unavailable Reason for Visit Reason Onset Date Comments Call Back 09/30/2010 Encounter Details Date Type Department Care Team Description 09/30/2010 Nurse Triage [facility] [place] Center Quang Toscano, Call Back [facility] [id number] [place] [address] Social History Tobacco Use Types Packs/Day [...] requests that she call back again at [phone]. R: routing to NIZATIONAL DEVELOPMENT CONSULTANT Telephone Encounter - Quang Toscano RN - 09/30/2010 4:24 PM ORGANIZATIONAL DEVELOPMENT CONSULTANT Message copied by QUANG TOSCANO on MonSep [...] CHRISTIANO TINAJERO Phone number for return call: [phone] NIZATIONAL DEVELOPMENT CONSULTANT documented in this encounter Plan of Treatment Not on filedocumented as of this encounter Visit Diagnoses Not on filedocumented in this encounter Care Teams Professional Golf Tournament Player Relationship Specialty Start Date End Date Provider, Outside PCP - General 03/13/09 10/22/18 [place] [address] documented as of this encounter
--- OUTSIDE RECORDS SUMMARY | 2022-05-02 09:02 | XMS_ITS | Encounter Summary ---
:1955 Author Organization [facility] Address [address] [place] [address] Phone Care Team Providers Name Role Phone Provider, Outside Primary Care Provider Unavailable Reason for Referral Consult/Test/Treat (Routine) - Closed Specialty Diagnoses / Procedures Referred By Contact Refer red To Contact Plastic Surgery / Diagnoses Ulcer Sameera Frances, PLASTIC SURGERY MD [address] [place], [place] [address] Referral ID Status Reason Start Date Expiration Date Visits Requ ested Visits Authorized [id number] Closed 09/13/2010 09/13/2011 1 1 IRER SHOE STICKS Encounter Details Date Type Department Care Team Description 09/13/2010 Orders Only [facility] [place]/Rehab Sameera Frances U lcer () (Primary Clinic MD Dx) [address] [place], [place] [address] [place], [place] [phone] (Wo rk) Social History Tobacco Use Types [...] site documented in this encounter Care Teams Admiralty Lawyer Relationship Specialty Start Date End Date Provider, Outside PCP - General 03/13/09 10/22/18 [place] [address] documented as of this encounter
--- OUTSIDE RECORDS SUMMARY | 2022-05-02 09:02 | XMS_ITS | Encounter Summary ---
:1955 Author Organization [facility] Address [address] [facility] [place] [address] Phone Care Team Providers Name Role Phone Provider, Outside Primary Care Provider Unavailable Reason for Visit Reason Comments Follow-up Encounter Details Date Type Department Care Team Description 09/24/2010 Office Visit [facility] [place] Plastic Surg DaysiBubba Veronica us ulcer, stage Clinic MD Valery IV () (Primary Dx) [address] [facility] [address] [facility] [address] Mail Code P5 [place], [place] [address] [place], [place] [phone] [address] Social History Tobacco Use Types Packs/Day Years Used Date Smoking Tobacco: Never Smokeless Tobacco: Never Alcohol Use Standard Drinks/Week Comments Yes 3.3 (1 standard drink = 0.6 oz pure alco hol) once in while Sex Assigned at Date Recorded Not on file documented as of this encounter Last Filed Vital Signs Vital Sign Reading Time Taken Comments Blood Pressure 107/73 09/24/2010 10:33 AM UTILITY BILL COMPLAINTS INVESTIGATOR Pulse 87 09/24/2010 10:33 AM UTILITY BILL COMPLAINTS INVESTIGATOR Temperature 36.8 ??C (98.2 ??F) 09/24/2010 10:33 AM UTILITY BILL COMPLAINTS INVESTIGATOR Respiratory Rate - - Oxygen Saturation - [...] of infection, please contact the Surgery clinic [phone]: redness, warmth, swelling, drainage, pain, and/or fever over 100 degrees. ITY BILL COMPLAINTS INVESTIGATOR documented in this encounter Progress Notes Mari Odell RN - 09/24/2010 2:45 PM CST Wound care D: Here for wound care. Location: coccyx A: Exam per provider. Wound cleansed with: technicare, H2O and rinsed. Dressing applied: and wet to dry with 1/2 packing and 2x2's with Island dressing. R: Patient tolerated procedure well. P: As ordered by provider. ITY BILL COMPLAINTS INVESTIGATOR Syl Yanes MD - 09/24/2010 11:21 AM [...] has received the special cushion from the [facility] which is supposed to relieve pressure from that area. He does have another apptset up with Soumya at the [facility] to complete the mapping to ensure no [...] documented. Bubba Tavarez MD, 09/25/2010 9:26 AM ITY BILL COMPLAINTS INVESTIGATOR documented in this encounter Plan of Treatment Not on filedocumented as of this encounter Visit Diagnoses Diagnosis Decubitus ulcer, stage IV () - Primary Pressure ulcer, unspecified site documented in this encounter Care Teams Senior Estimator Relationship Specialty Start Date End Date Provider, Outside PCP - General 03/13/09 10/22/18 [place] [address] documented as of this encounter
--- OUTSIDE RECORDS SUMMARY | 2022-05-02 09:02 | XMS_ITS | Encounter Summary ---
:1955 Author Organization [facility] Address [address] [facility] [place] [address] Phone Care Team Providers Name Role Phone Provider, Outside Primary Care Provider Unavailable Reason for Visit Reason Onset Date Comments Question 09/22/2010 Encounter Details Date Type Department Care Team Description 09/22/2010 Telephone [facility] Blanca Marti, NILSA Question [address] [facility] [address] [address] [place], [place] [address] Social History Tobacco Use Types [...] discuss concerns with Dr. Loya. He agreed. CHECKER Telephone Encounter - Blanca Marti RN - 09/22/2010 10:35 AM CST Pt calling in with frustrations Saw dr. loya who wants pt to see dr. bernstein again before coming back Dr. bernstein wants pt to be seen in [facility] Paperwork faxed to them and pt will call and schedule Pt having questions regarding his care of his wound after seeing dr. loya- felt his appt was so brief with dr. loya and is unsatisfied and would like to speak with nsg staff in surgery clinic Routed to surg clinic RNs Blanca Marti RN, 09/22/2010 10:35 AM CHECKER documented in this encounter Plan of Treatment Not on filedocumented as of this encounter Visit Diagnoses Not on filedocumented in this encounter Care Teams Tufter Operator Relationship Specialty Start Date End Date Provider, Outside PCP - General 03/13/09 10/22/18 [place] [address] documented as of this encounter
--- OUTSIDE RECORDS SUMMARY | 2022-05-02 09:02 | XMS_ITS | Encounter Summary ---
:1955 Author Organization [facility] Address [address] [place] [address] Phone Care Team Providers Name Role Phone Provider, Outside Primary Care Provider Unavailable Reason for Visit Reason Onset Date Comments Refill Request 10/21/2009 Encounter Details Date Type Department Care Team Description 10/21/2009 Refill HFA Urology Omar Savage MD Refill Request [address] [facility] Research Only [place], [place] [address] Social History Tobacco Use [...] NOS documented in this encounter Care Teams Air Grinder Relationship Specialty Start Date End Date Provider, Outside PCP - General 03/13/09 10/22/18 [place] [address] documented as of this encounter
--- OUTSIDE RECORDS SUMMARY | 2022-05-02 09:02 | XMS_ITS | Encounter Summary ---
:1955 Author Organization [facility] Address [address] [place] [address] Phone Care Team Providers Name Role Phone Provider, Outside Primary Care Provider Unavailable Reason for Visit Reason Onset Date Comments Supplies 09/17/2010 Encounter Details Date Type Department Care Team Description 09/17/2010 Telephone [facility] [place] Clinic Alka Jade RN Supplies [address] [place] [address] [place], [place] [address] Social History Tobacco Use Types [...] for supply list to be faxed to [facility] Shwetha Martin @ [phone]. Pt was seen today by Dr Tavarez and wet to dry dressing was ordered. Pt has a f/u appt scheduled on 09/24/[address] Tavarez. HOTHERAPIST SOCIAL WORKER Telephone Encounter - Alka Jade RN - [...] Provider Comment: Expects Return Call at: pt [phone] HOTHERAPIST SOCIAL WORKER documented in this encounter Plan of Treatment Not on filedocumented as of this encounter Visit Diagnoses Not on filedocumented in this encounter Care Teams Loop Tender Relationship Specialty Start Date End Date Provider, Outside PCP - General 03/13/09 10/22/18 [place] [address] documented as of this encounter
--- OUTSIDE RECORDS SUMMARY | 2022-05-02 09:02 | XMS_ITS | Encounter Summary ---
:1955 Author Organization [facility] Address [address] [facility] [place] [address] Phone Care Team Providers Name Role Phone Provider, Outside Primary Care Provider Unavailable Reason for Visit Reason Comments Neurologic Problem pmr Encounter Details Date Type Department Care Team Description 11/01/2010 Office Visit [facility] Med/Rehab Sameera Frances D ecubitus ulcer, Clinic MD mackey (Primary Dx) [address] [facility] [address] Mail Code P5 [place], [place] [address] [place], [place] [phone] (Wo rk) Social History Tobacco Use Types [...] CDT Height - - Body Mass Index 64037.15 07/31/2007 3:21 PM ENTERTAINMENT REPORTER documented in this encounter Patient Instructions Patient [...] 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
--- OUTSIDE RECORDS SUMMARY | 2022-05-02 09:02 | XMS_ITS | Encounter Summary ---
:1955 Author Organization [facility] Address [address] [place] [address] Phone Care Team Providers Name Role Phone [...] 09/23/2010 12:00 AM CSTAssociated Order(s): INFORMATION DISCLOSURE UTIVE COMPENSATION ANALYST documented in this encounter Plan of Treatment Not on filedocumented as of this encounter Procedures Procedure Name Priority Date/Time Associated Comments Diagnosis INFORMATION 09/23/2010 5:22 PM Results f or this DISCLOSURE EXECUTIVE COMPENSATION ANALYST procedure are i n the results section. documented in this encounter Results INFORMATION DISCLOSURE (09/23/2010 5:22 PM EXECUTIVE COMPENSATION ANALYST) Narrative 09/23/2010 5:22 PM EXECUTIVE COMPENSATION ANALYST Procedure Note Unknown, Provider - 09/23/2010 12:00 AM CST Provider Unknown SCANNED CONSENTS documented in this encounter Visit Diagnoses Not on filedocumented in this encounter Care Teams Spike Driver Relationship Specialty Start Date End Date Provider, Outside PCP - General 03/13/09 10/22/18 [place] [address] documented as of this encounter
--- OUTSIDE RECORDS SUMMARY | 2022-05-02 09:02 | XMS_ITS | Encounter Summary ---
:1955 Author Organization [facility] Address [address] [place] [address] Phone Care Team Providers Name Role Phone Pcp, No Primary Care Provider Unavailable Reason for Visit Reason Onset Date Comments Question 02/20/2009 Called with question Encounter Details Date Type Department Care Team Description 02/20/2009 Telephone HFA Physical Medicin e Reece Ziegler, Question (Called with [facility] [address], [address] RN question) M[address] [facility] [place] [address] Clinic [phone] [place] [address] Social History Tobacco Use Types Packs/Day Years [...] Created: MonFeb 19, 2009 3:38 PM Regarding: [facility] PMR TELEPHONE MESSAGE Taken by: Natalie Painting , 02/19/2009 3:38 PM Direct to: Problem: questions Pt. Name: Khanh Rene : 1955 (home) Insurance: PCP: No PCP Comment: Expects Return Call at: [phone] Monday02/20/09 at 930am, returned Khanh's phone call, had to leave phone message, Reece Ziegler RN 02/26/09 again returned Khanh's phone call woth no answer. Khanh is scheduled to see Dr Frances on Monday03/13/09 at [facility] PM&R Clinic. I has also given Dr Frances phone message from Khanh on his question on medical supply.Reece Ziegler RN documented in this encounter Plan of Treatment Not on filedocumented as of this encounter Visit Diagnoses Not on filedocumented in this encounter Care Teams Lien Searcher Relationship Specialty Start Date End Date Pcp, No PCP - General 01/24/08 03/12/09 [facility] [place] [address] documented as of this encounter
--- OUTSIDE RECORDS SUMMARY | 2022-05-02 09:02 | XMS_ITS | Encounter Summary ---
:1955 Author Organization [facility] Address [address] [place] [address] Phone Care Team Providers Name Role Phone Pcp, No Primary Care Provider Unavailable Reason for Visit Reason Onset Date Comments Durable Medical Equipment 02/17/2009 Question about reordering equipment Check/Request Encounter Details Date Type Department Care Team Description 02/17/2009 Telephone HFA Physical Medicin e Reece Ziegler, Durable Medical [address] [facility] RN Equipment Check/Request M50 [facility] (Question about [place], [place] [address] Clinic reordering equipment) [phone] [place] [address] Social History Tobacco Use Types Packs/Day Years [...] refill of dourdrem?? Spelling? Pharmacy # is [phone] Pt. Name: Khanh Rene : 1955 (home) Insurance: PCP: No PCP Comment: Expects Return Call at: [phone] or cell [phone] Monday02/17/09 Copy of this phone message given to Dr Frances and she will call patient to check on equipment order needed. Reece Ziegler RN documented in this encounter Plan of Treatment Not on filedocumented as of this encounter Visit Diagnoses Not on filedocumented in this encounter Care Teams Patient Assessment Coordinator Relationship Specialty Start Date End Date Pcp, No PCP - General 01/24/08 03/12/09 [facility] [place] [place] [address] documented as of this encounter
--- OUTSIDE RECORDS SUMMARY | 2022-05-02 09:02 | XMS_ITS | Encounter Summary ---
:1955 Author Organization [facility] Address 1 [place] [address] Phone Care Team Providers Name Role Phone Provider, Outside Primary Care Provider Unavailable Encounter Details Date Type Department Care Team Description 09/13/2010 Notes/Trans HFA ALS Clinic Sameera Frances MD [address] [facility] Professional Mail Code [address] [address] [place] [address] [phone] Social History Tobacco Use Types Packs/Day Years Used Date Smoking Tobacco: Never Alcohol Use Standard Drinks/Week Comments Yes 3.3 (1 standard drink = 0.6 oz pure alco hol) Sex Assigned at Date Recorded Not on file documented as of this encounter Progress Notes Sameera Frances MD - 09/16/2010 12:35 [place] [address] [facility]#: [id number] PATIENT: MICHEAL RENE : 1955 DATE: 09/13/2010 [...] Physical Medicine and Rehabilitation Service Received in Property Underwriter: 09/13/2010 15:26 M: 09/14/2010 09:05 [facility] HOMA/srikanth Voice ID: [id number] Document ID: [id number] FLAP BINDER documented in this encounter Plan of Treatment Not on filedocumented as of this encounter Visit Diagnoses Not on filedocumented in this encounter Care Teams Ekg Monitor Tech Relationship Specialty Start Date End Date Provider, Outside PCP - General 03/13/09 10/22/18 [place] [address] documented as of this encounter
--- OUTSIDE RECORDS SUMMARY | 2022-05-02 09:02 | XMS_ITS | Encounter Summary ---
:1955 Author Organization [facility] Address [address] [place], [place] [address]. [place] [address] Phone Care Team Providers Name Role Phone Provider, Outside Primary Care Provider Unavailable Encounter Details Date Type Department Care Team Description 05/13/2010 Hospital Encounter [facility] [place] Omar Savage MD [address] Research Only [address] [place], [place] [address] Social History Tobacco Use [...] NOS documented in this encounter Care Teams Senior Solutions Consultant Relationship Specialty Start Date End Date Provider, Outside PCP - General 03/13/09 10/22/18 [place] [address] documented as of this encounter
--- OUTSIDE RECORDS SUMMARY | 2022-05-02 09:02 | XMS_ITS | Encounter Summary ---
:1955 Author Organization [facility] Address [address] [facility] [place] [address] Phone Care Team Providers Name Role Phone Provider, Outside Primary Care Provider Unavailable Reason for Visit Reason Comments Follow-up 19 months fool[facility] Yvrose Mukherjee PM&R Clinic Dx C7 Spinal Cord Injury Encounter Details Date Type Department Care Team Description 03/13/2009 Office Visit HFA Neuromuscular Sameera Frances Don plegia () Clinic MD Valery (Primary Dx) [address], [address] [place] [address] Mail Code P5 [place], [place] [address] [place], [place] [phone] [address] Social History Tobacco Use Types Packs/Day [...] visit with Dr Frances A PM&R Clinic ([phone]) Rx/orders given to Micheal by Dr Frances for Wheelchair lumbar support and wheelchair repairs, bilateral arm rests, replace sling back Blanca Ziegler RN documented in this encounter Progress Notes Sameera Frances MD - 03/26/2009 10:04 AM CDT [facility] [address] [facility], [address] [place] [address] (fax) [facility]#: [id number] PATIENT: MICHEAL FLETCHER : 1955 DATE: 03/13/2009 NEUROMUSCULAR PHYSICAL MEDICINE NOTE HISTORY OF PRESENT ILLNESS: Micheal Fletcher is a 54-year-old gentleman with a C7 [place] [employer] (AUDREY) B spinal cord [...] that eventually led to pacemaker placement at [facility]. He said that his angiogram did not [...] discontinues that activity. He is using a [employer] wheelchair with a Joby cushion. It is [...] a slow healing coccyx ulcer at the [facility]. We have discussed whether he should [...] that complication. Sameera Frances MD Received in Slitting And Shipping Supervisor: 03/20/2009 12:28:50 (M: 03/24/2009 03:22:10 golden) HOMA/jlb Voice ID: [id number] Document ID: [id number] cc: Abida Pulliam DO, [facility], [address] [place] [id number] Sameera Frances MD - 03/19/2009 6:44 PM CDT See dictation. documented in this encounter Nursing Notes 03/13/2009 8:00 AM CDT >> Blanca Ziegler RN MonMar 13, 2009 8:24 AM 19 months follow up visit with Dr Frances in Monday [facility] PM&R Clinic. DX of C7 Spinal Cord Injury, Quadriplegia, Neurogenic Bladder. B/P 87/60 pulse 105, states runs lower blood pressure. Self caths PRN during the day. Blanca Ziegler RN documented in this encounter Plan of Treatment Not on filedocumented as of this encounter Visit Diagnoses Diagnosis Quadriplegia () - Primary Quadriplegia, unspecified documented in this encounter Care Teams Subcontracts Manager Relationship Specialty Start Date End Date Provider, Outside PCP - General 03/13/09 10/22/18 [place] [address] documented as of this encounter
--- OUTSIDE RECORDS SUMMARY | 2022-05-02 09:02 | XMS_ITS | Encounter Summary ---
:1955 Author Organization [facility] Address [address] [facility] [place] [address] Phone Care Team Providers Name Role Phone Provider, Outside Primary Care Provider Unavailable Reason for Visit Reason Comments Referral Consult/Test/Treat (Routine) - Closed Specialty Diagnoses / Procedures Referred By Contact Refer red To Contact Plastic Surgery / Diagnoses Ulcer Sameera Frances, PLASTIC SURGERY [address] Mail Code [address] [place], [place] [address] Referral ID Status Reason Start Date Expiration Date Visits Requ ested Visits Authorized [id number] Closed 09/13/2010 09/13/2011 1 1 Encounter Details Date Type Department Care Team Description 09/17/2010 Office Visit [facility] Plastic Surg Bubba Loya () Sara Rasmussen MD (Primary Dx) [address] Mail Code P[address] [place], [place] [address] [place], [place] [phone] Social History Tobacco Use Types Packs/Day Years Used Date Smoking Tobacco: Never Smokeless Tobacco: Never Alcohol Use Standard Drinks/Week Comments Yes 3.3 (1 standard drink = 0.6 oz pure alco hol) once in while Sex Assigned at Date Recorded Not on file documented as of this encounter Last Filed Vital Signs Vital Sign Reading Time Taken Comments Blood Pressure 112/77 09/17/2010 8:59 AM PASTRY SUPERVISOR Pulse 98 09/17/2010 8:59 AM PASTRY SUPERVISOR Temperature 35.9 ??C (96.7 ??F) 09/17/2010 8:59 AM PASTRY SUPERVISOR Respiratory Rate - - Oxygen Saturation - [...] P: As ordered by provider. Dr loya RY SUPERVISOR Arnold Mejía MD - 09/17/2010 9:45 AM [...] documented. Bubba Loya MD, 09/17/2010 11:39 AM RY SUPERVISOR documented in this encounter Plan of Treatment Not on filedocumented as of this encounter Procedures Procedure Name Priority Date/Time Associated Diagnosis Comme nts SED RATE (ESR) Routine 09/17/2010 9:44 AM Quadriplegia () Re sults for this PASTRY SUPERVISOR procedure are i n the results section. CBC WITH PLATELET Routine 09/17/2010 9:44 AM Quadriplegia () Results for this PASTRY SUPERVISOR procedure are i n the results section. documented in this encounter Results (ABNORMAL) XR PELVIS WITH BOTH LAT HIP (09/17/2010 10:28 AM PASTRY SUPERVISOR) Anatomical Region Laterality Modality Pelvis Computed Radiography Specimen (Source) Anatomical Collection Method Collection Time Re ceived Time Location / / Volume Laterality 09/17/2010 10:28 AM PASTRY SUPERVISOR Impressions 09/17/2010 10:35 AM PASTRY SUPERVISOR Impression: Severe osteoarthritis involving both hips with postsurgical fixation of a left hip fracture. There is no cortical irregularity to suggest osteomyelitis. This however lucency surrounding a fe moral IM nail. Three-phase bone scan may be beneficial to assess for infection surrounding the nail if clinically indicated. Reading Radiologist: Khanh Brunson Narrative 09/17/2010 10:35 AM PASTRY SUPERVISOR History: Rule out osteo. Comparison: None. Findings [...] (ABNORMAL) CBC WITH PLATELET (09/17/2010 9:44 AM PASTRY SUPERVISOR) P athologist Signature WBC 5.3 4.0 - 10.0 [facility] k/cmm RBC 4.03 (L) 4.60 - 6.00 [facility] m/cmm Hgb 11.8 (L) 13.1 - 17.5 [facility] g/dL Hematocrit 36.4 (L) 40.0 - 51.0 [facility] % MCV 90.3 80.0 - [facility] 100.0 fL MCH 29.3 25.0 - 32.0 [facility] pg MCHC 32.4 31.0 - 36.0 [facility] g/dL RDW 12.8 11.5 - 14.5 [facility] % Plt 308 150 - 400 [facility] k/cmm MPV 8.0 6.5 - 12.5 [facility] fL NRBC .0 0.0 - 0.0 % [facility] Specimen Anatomical Collection Method Collection Time Receive d Time (Source) Location / / Volume Laterality Blood 09/17/2010 9:44 AM 1 9:44 PASTRY SUPERVISOR AM PASTRY SUPERVISOR Arnold Mejía MD LABORATORY Performing Organization Address City/[facility]/ZIP [facility] Phon e Number [facility] [place] [address] LAB (ABNORMAL) SED RATE (ESR) (09/17/2010 9:44 AM PASTRY SUPERVISOR) P athologist Signature Sed Rate 51 (H) 0 - 10 mm/hr [facility] LAB Specimen Anatomical Collection Method Collection Time Receive d Time (Source) Location / / Volume Laterality Blood 09/17/2010 9:44 AM 1 9:44 PASTRY SUPERVISOR AM PASTRY SUPERVISOR Arnold Mejía MD LABORATORY Performing Organization Address City/[facility] Phon e Number [facility] [place] [address] LAB documented in this encounter Visit Diagnoses Diagnosis Quadriplegia () - Primary Quadriplegia, unspecified Quadriplegia () Quadriplegia, unspecified documented in this encounter Care Teams Personal Computer Network Analyst Relationship Specialty Start Date End Date Provider, Outside PCP - General 03/13/09 10/22/18 [place] [address] documented as of this encounter
--- OUTSIDE RECORDS SUMMARY | 2022-05-02 09:02 | XMS_ITS | Encounter Summary ---
:1955 Author Organization [facility] Address [address] [place] [address] Phone Care Team Providers Name Role Phone Provider, Outside Primary Care Provider Unavailable Encounter Details Date Type Department Care Team Description 10/19/2010 Refill HFA Urology Omar Savage MD [address] [facility], [address] Research Only [place], [place] [address] Social History Tobacco Use Types [...] Insurance: PCP: Outside Provider Comment: Please call [facility] pharmacy regarding getting an alternative for his medication Propantheline. Please call Ange Valdivia Return Call at: [phone] documented in this encounter Plan of Treatment Not on filedocumented as of this encounter Visit Diagnoses Diagnosis Neurogenic bladder - Primary Neurogenic bladder, NOS documented in this encounter Care Teams Waiter/Waitress Take Out Relationship Specialty Start Date End Date Provider, Outside PCP - General 03/13/09 10/22/18 [place] [address] documented as of this encounter
--- OUTSIDE RECORDS SUMMARY | 2022-05-02 09:02 | XMS_ITS | Encounter Summary ---
:1955 Author Organization [facility] Address [address] [place] [address] Phone Care Team Providers Name Role Phone Pcp, No Primary Care Provider Unavailable Reason for Visit Reason Onset Date Comments Refill Request 09/02/2008 Encounter Details Date Type Department Care Team Description 09/02/2008 Refill [facility] Urology Omar Savage MD Refill Request [address], [address] Research Only [place], [place] [address] Social History Tobacco Use Types Packs/Day Years Used Date Smoking Tobacco: Never Alcohol Use Standard Drinks/Week Comments Yes 3.3 (1 standard drink = 0.6 oz pure alco hol) Sex Assigned at Date Recorded Not on file documented as of this encounter Plan of Treatment Not on filedocumented as of this encounter Visit Diagnoses Not on filedocumented in this encounter Care Teams Doubler Operator Relationship Specialty Start Date End Date Pcp, No PCP - General 01/24/08 03/12/09 [facility] [place] [address] documented as of this encounter
--- OUTSIDE RECORDS SUMMARY | 2022-05-02 09:02 | XMS_ITS | Encounter Summary ---
:1955 Author Organization [facility] Address [address] [place] [address] Phone Care Team Providers Name Role Phone [...] () Clinic MD Valery (Primary Dx) [address], [address] [place] [address] Mail Code P5 [place], [place] [address] [place], [place] [phone] Social History Tobacco Use Types Packs/Day Years [...] Frances for: 1) Wheelchair repair/s. Faxed to [facility] ([phone] 2) Referral to [facility]) Formal Wheelchair and wheeled mobility clinic faxedto scheduling to call Micheal to get scheduled ([phone]) Blanca Ziegler RN documented in this encounter Progress Notes Sameera Frances MD - 05/13/2010 3:35 PM CDT [facility] [address] [facility], [address] [place] [address] (fax) MEDREC#: [id number] PATIENT: MICHEAL FLETCHER : 1955 DATE: 04/20/2010 NEUROMUSCULAR PHYSICAL MEDICINE NOTE HISTORY OF PRESENT ILLNESS: Micheal Fletcher is a 55-year-old gentleman with a C7 [place] [employer] B spinal cord [...] be broken as far the spokes. The qyio-yv-yiaa stability is poor. The back of the [...] and recommended he see the [facility] for a mapping of his buttocks and a more complete evaluation of his wheelchair. I do not think we need any changes in medications for spasticity. Sameera Frances MD Staff Physician Physical Medicine and Rehabilitation Service Received in Rn Appeals: 05/11/2010 20:55 M: 05/13/2010 10:09 ms CLR/ms Voice ID: [id number] Document ID: [id number] cc:[place] [address] Sameera Frances MD - 04/20/2010 11:01 AM [...] unspecified documented in this encounter Care Teams Painter And Paperhanger Apprentice Relationship Specialty Start Date End Date Provider, Outside PCP - General 03/13/09 10/22/18 [place] [address] documented as of this encounter
--- OUTSIDE RECORDS SUMMARY | 2022-05-02 09:02 | XMS_ITS | Encounter Summary ---
:1955 Author Organization [facility] Address [address] [place] [address] Phone Care Team Providers Name Role Phone Provider, Outside Primary Care Provider Unavailable Encounter Details Date Type Department Care Team Description 08/30/2010 Telephone [facility] [place] [place] Reece Ziegler, [place] [address] [facility] [address] [place] [address] Social History Tobacco Use Types Packs/Day Years [...] 08/30/2010 11:12 AM To: Neurology Team Pool [facility] ----- Message ----- From: Nola Espino Sent: 08/27/2010 1:52 PM To: Neurology Funeral Greeter Pool Patient: Khanh Rene : 1955 Called to schedule an appointment with provider:Dr. Frances No appointments available: with preferred provider.. Date and time requested: caryn Reason for visit: Pt has a pressure sore, and needs a FU appt Phone number for return call: [phone] Monday08/30/10. Khanh Rene will need to [facility] at [phone] to schedule a follow up visit with Dr Frances in her PM&R Clinic. We will call Khanh and inform him of this. Reece Ziegler RN M PLANT OPERATOR documented in this encounter Plan of Treatment Not on filedocumented as of this encounter Visit Diagnoses Not on filedocumented in this encounter Care Teams Behavioral Health Therapist Relationship Specialty Start Date End Date Provider, Outside PCP - General 03/13/09 10/22/18 [place] [address] documented as of this encounter
--- OUTSIDE RECORDS SUMMARY | 2022-05-02 09:02 | XMS_ITS | Encounter Summary ---
:1955 Author Organization [facility] Address [address] [place] [address] Phone Care Team Providers Name Role Phone [...] on filedocumented in this encounter Care Teams Building Maintenance Mechanic Relationship Specialty Start Date End Date Provider, Outside PCP - General 03/13/09 10/22/18 [place] [address] documented as of this encounter
--- OUTSIDE RECORDS SUMMARY | 2022-05-02 09:02 | XMS_ITS | Encounter Summary ---
:1955 Author Organization [facility] Address [address] [place] [address] Phone Care Team Providers Name Role Phone Provider, Outside Primary Care Provider Unavailable Reason for Visit Reason Comments Follow-up Encounter Details Date Type Department Care Team Description 04/01/2010 Office Visit [facility] Urology Omar Savage, Neurogenic bladder; [address] [place] [address] Screening for prostate cancer [address] Only [place], [place] [address] Social History Tobacco Use Types Packs/Day Years [...] Savage MD - 04/05/2010 1:[address] [facility] [address], [address] [place] [address] (fax) [facility]#: [id number] PATIENT: MICHEAL FLETCHER : 1955 DATE: 04/01/2010 [...] MD Staff Physician Surgery Service Received in Balance Bridge Inspector: 04/02/2010 14:55 M: 04/02/2010 22:48 kn CS/kn Voice ID: [id number] Document ID: [id number] Omar Savage MD - 04/02/2010 2:55 PM [...] NOS documented in this encounter Care Teams Cemetery Workers Supervisor Relationship Specialty Start Date End Date Provider, Outside PCP - General 03/13/09 10/22/18 [place] [address] documented as of this encounter
--- OUTSIDE RECORDS SUMMARY | 2022-05-02 09:02 | XMS_ITS | Encounter Summary ---
:1955 Author Organization [facility] Address [address] [facility] [place] [address] Phone Care Team Providers Name Role Phone Provider, Outside Primary Care Provider Unavailable Reason for Visit Reason Onset Date Comments Call Back 09/06/2010 Encounter Details Date Type Department Care Team Description 09/06/2010 Telephone [facility] [place] Vickie Odell RN Call Back [address] [facility] [address] [address] [place], [place] [address] Social History Tobacco Use Types [...] that he does not have a primary substance abuse counselor in [facility]. R: Patient quadriplegic states that he would like to speak directly with . Routing to SPECIALIST Telephone Encounter - Vickie Odell RN - 09/06/2010 1:59 PM CST Message copied by VICKIE ODELL on MonSep 06, 2010 1:59 PM ------ Message from: BRANDEE TALAMANTES Created: MonSep 06, 2010 1:52 PM 09/06/2010 1:53 PM Khanh Edgard @[email or web address]@ 1955 Questions regarding a referral for a pressure sore from Dr Frances. Best number to call patient back: [phone]. Best time of day to reach patient:anytime. SPECIALIST documented in this encounter Plan of Treatment Not on filedocumented as of this encounter Visit Diagnoses Not on filedocumented in this encounter Care Teams Stoner Out Relationship Specialty Start Date End Date Provider, Outside PCP - General 03/13/09 10/22/18 [place] [address] documented as of this encounter
--- OUTSIDE RECORDS SUMMARY | 2022-05-02 09:02 | XMS_ITS | Encounter Summary ---
:1955 Author Organization [facility] Address [address] [place] [address] Phone Care Team Providers Name Role Phone Provider, Outside Primary Care Provider Unavailable Reason for Visit Reason Onset Date Comments Call Back 08/30/2010 Encounter Details Date Type Department Care Team Description 08/30/2010 Telephone [facility] Multispec[facility]ty Varsha Knight RN Call Back [address], [address] Multispecialty Clinic [place], [place] [address] [phone] [place] [address] (Wo rk) Social History Tobacco Use Types Packs/Day Years Used Date Smoking Tobacco: Never Alcohol Use Standard Drinks/Week Comments Yes 3.3 (1 standard drink = 0.6 oz pure alco hol) Sex Assigned at Date Recorded Not on file documented as of this encounter Miscellaneous Notes Telephone Encounter - Varsha Knight RN - 08/30/2010 4:23 PM CREAM GATHERER Spoke with patient & let him know that Blanca Ziegler was working on this (see her telephone encounter from earlier today). Pt states he is using Duoderm for this pressure sore but thinks it may need other intervention. Let him know our office would be in touch soon regarding this appt. 08/31/10 830 AM. I called and talked to Khanh ([phone]) he is a Dr Frances Quadriplegia patient and he does have a open sore on his bottom, he did call scheduling at [facility] Neurology ([phone])and could not get in to see Dr Frances in her PM&R Clinic until September. I informed Khanh that I will route this phone message to Dr Frances plus I will page her to try to talk to her about Khanh. Blanca Ziegler RN M GATHERER documented in this encounter Plan of Treatment Not on filedocumented as of this encounter Visit Diagnoses Not on filedocumented in this encounter Care Teams Cryptographic Technician Relationship Specialty Start Date End Date Provider, Outside PCP - General 03/13/09 10/22/18 [place] [address] documented as of this encounter
--- OUTSIDE RECORDS SUMMARY | 2022-05-02 09:02 | XMS_ITS | Encounter Summary ---
:1955 Author Organization [facility] Address [address] [facility] [place] [address] Phone Care Team Providers Name Role Phone Provider, Outside Primary Care Provider Unavailable Encounter Details Date Type Department Care Team Description 09/17/2010 Hospital Encounter [facility] Arnold Vora [address]én[address] [place], [place] [address] [address] [facility] [phone] [place], [place] [id number] Social History Tobacco Use Types Packs/Day Years [...] () Results for this LAT HIP AM INSPECTOR HAIRSPRING TRUING procedure are i n the results section. documented in this encounter Results (ABNORMAL) XR PELVIS WITH BOTH LAT HIP (09/17/2010 10:28 AM INSPECTOR HAIRSPRING TRUING) Anatomical Region Laterality Modality Pelvis Computed Radiography Specimen (Source) Anatomical Collection Method Collection Time Re ceived Time Location / / Volume Laterality 09/17/2010 10:28 AM INSPECTOR HAIRSPRING TRUING Impressions 09/17/2010 10:35 AM INSPECTOR HAIRSPRING TRUING Impression: Severe osteoarthritis involving both hips with postsurgical fixation of a left hip fracture. There is no cortical irregularity to suggest osteomyelitis. This however lucency surrounding a fe moral IM nail. Three-phase bone scan may be beneficial to assess for infection surrounding the nail if clinically indicated. Reading Radiologist: Khanh Brunson Narrative 09/17/2010 10:35 AM INSPECTOR HAIRSPRING TRUING History: Rule out osteo. Comparison: None. Findings AP view pelvis and frogleg view s of both hips demonstrates severe osteoarthritis of both hip joints with orthopedic fixation of an intertrochanteric/subtrochanteric left hip fracture. Lucency s een surrounding the IM nail. There is ge neralized demineralization present. Significant colonic fecal loading. Procedure Note Khanh Brunsno DO - 09/17/2010Format ting of this note [...] unspecified documented in this encounter Care Teams Plate Printer Relationship Specialty Start Date End Date Provider, Outside PCP - General 03/13/09 10/22/18 [place] [address] documented as of this encounter
--- OUTSIDE RECORDS SUMMARY | 2022-05-02 09:02 | XMS_ITS | Encounter Summary ---
:1955 Author Organization [facility] Address [address] [place] [address] Phone Care Team Providers Name Role Phone Pcp, No Primary Care Provider Unavailable Reason for Visit Reason Comments Follow-up neurogenic bladder Encounter Details Date Type Department Care Team Description 01/29/2009 Office Visit [facility] Urology Omar Savage, Neurogenic Bladder [address] [place] [address] (Primary Dx) [address] Only [place], [place] [address] Social History Tobacco Use Types Packs/Day Years Used Date Smoking Tobacco: Never Alcohol Use Standard Drinks/Week Comments Yes 3.3 (1 standard drink = 0.6 oz pure alco hol) Sex Assigned at Date Recorded Not on file documented as of this encounter Progress Notes Omar Savage MD - 02/02/2009 12:28 PM CDT [facility] [address] [facility], [address] [place] [address] (fax) MEDREC#: [id number] PATIENT: MICHEAL FLETCHER : 1955 DATE: 01/29/2009 [...] pinning. The pinning was performed at the [facility]. His pacemaker was placed at the [facility]. I will request laboratory values [...] 20 minutes. Omar Savage MD Received in Slitter Scorer: 01/29/2009 18:41:26 (M: 02/02/2009 08:06:12 sharmila) CS/sjv Voice ID: [id number] Document ID: [id number] cc: Omar Savage MD - 01/29/2009 6:41 [...] NOS documented in this encounter Care Teams Import Coordinator Relationship Specialty Start Date End Date Pcp, No PCP - General 01/24/08 03/12/09 [place] [address] documented as of this encounter
--- OUTSIDE RECORDS SUMMARY | 2022-05-02 09:02 | XMS_ITS | Encounter Summary ---
:1955 Author Organization [facility] Address [address] [place] [address] Phone Care Team Providers Name Role Phone Provider, Outside Primary Care Provider Unavailable Reason for Visit Reason Onset Date Comments Refill Request 04/30/2010 Encounter Details Date Type Department Care Team Description 04/30/2010 Refill [facility] Urology Omar Savage MD Refill Request [address] [facility] Research Only [place], [place] [address] Social History Tobacco Use Types [...] NOS documented in this encounter Care Teams Glass Forming Crew Member Relationship Specialty Start Date End Date Provider, Outside PCP - General 03/13/09 10/22/18 [place] [address] documented as of this encounter
--- OUTSIDE RECORDS SUMMARY | 2022-05-02 09:02 | XMS_ITS | Encounter Summary ---
:1955 Author Organization [facility] Address [address] [facility] [place] [address] Phone Care Team Providers Name Role Phone Provider, Outside Primary Care Provider Unavailable Reason for Visit Reason Onset Date Comments Call Back 11/08/2010 Encounter Details Date Type Department Care Team Description 11/08/[address] [facility] Neu[place] Clini c Vickie Odell RN Call Back [address] [facility] [address] [address] [place], [place] [address] Social History Tobacco Use Types [...] that was to call [facility] [employer] [phone] to order supplieslast after last visit 11-01-10. [...] Outside Provider Comment:na Expects Return Call at: [phone] documented in this encounter Plan of Treatment Not on filedocumented as of this encounter Visit Diagnoses Not on filedocumented in this encounter Care Teams Butcher All Round Relationship Specialty Start Date End Date Provider, Outside PCP - General 03/13/09 10/22/18 [place] [address] documented as of this encounter
--- OUTSIDE RECORDS SUMMARY | 2022-05-02 09:02 | XMS_ITS | Encounter Summary ---
:1955 Author Organization [facility] Address [address] [place], [place] [address] [address] Phone Care Team Providers Name Role Phone Provider, Outside Primary Care Provider Unavailable Encounter Details Date Type Department Care Team Description 10/01/2010 Orders Only [facility] Urology Omar Savage, Neurogenic bladder [address], [address] (Primary Dx) [place], [place] [address] Research Only [phone] Social History Tobacco Use Types Packs/Day Years [...] NOS documented in this encounter Care Teams Training Program Manager Relationship Specialty Start Date End Date Provider, Outside PCP - General 03/13/09 10/22/18 [place] [address] documented as of this encounter
--- OUTSIDE RECORDS SUMMARY | 2022-05-02 09:02 | XMS_ITS | Encounter Summary ---
:1955 Author Organization [facility] Address [address] [place] [address] Phone Care Team Providers Name Role Phone Provider, Outside Primary Care Provider Unavailable Encounter Details Date Type Department Care Team Description 11/15/2010 Office [place] [facility] [place] Sameera Frances D ecubitus ulcer Clinic (Primary Dx) [address] [facility] [address] Mail Code P5 [place], [place] [address] [place], [place] [phone] (Wo rk) Social History Tobacco Use Types [...] Frances MD - 11/16/2010 10:42 [place] [address] MEDREC#: [id number] PATIENT: MICHEAL RENE : 1955 DATE: 11/15/2010 [...] Physical Medicine and Rehabilitation Service Received in Cleaning Validation Consultant: 11/15/2010 12:55 M: 11/16/2010 02:37 bj CLR/bj Voice ID: [id number] Document ID: [id number] cc:[place] [address] Sameera Frances MD - 11/15/2010 12:44 PM CDT See dictation Sameera Frances MD, 11/15/2010 12:44 PM documented in this encounter Plan of Treatment Not on filedocumented as of this encounter Visit Diagnoses Diagnosis Decubitus ulcer - Primary Pressure ulcer, unspecified site documented in this encounter Care Teams Roto Gravure Press Operator Relationship Specialty Start Date End Date Provider, Outside PCP - General 03/13/09 10/22/18 [place] [address] documented as of this encounter
--- OUTSIDE RECORDS SUMMARY | 2022-05-02 09:02 | XMS_ITS | Encounter Summary ---
:1955 Author Organization [facility] Address [address] [place] [address] [place] [address] Phone Care Team Providers Name Role Phone Provider, Outside Primary Care Provider Unavailable Encounter Details Date Type Department Care Team Description 04/07/2010 Telephone [facility] Urology Omar Savage MD [address] [facility], [address] Research Only [place], [place] [address] Social History Tobacco Use Types [...] BALL AT 11:30. PLEASE CALL HIM AT [phone] Pt. Name: Khanh Rene : 1955 (home) Insurance: PCP: Outside Provider Comment: Expects Return Call at: documented in this encounter Plan of Treatment Not on filedocumented as of this encounter Visit Diagnoses Not on filedocumented in this encounter Care Teams Mid Level Net Developer Relationship Specialty Start Date End Date Provider, Outside PCP - General 03/13/09 10/22/18 [place] [address] documented as of this encounter
--- OUTSIDE RECORDS SUMMARY | 2022-05-02 09:02 | XMS_ITS | Encounter Summary ---
:1955 Author Organization [facility] Address [address] [place] [address] Phone Care Team Providers Name Role Phone Provider, Outside Primary Care Provider Unavailable Reason for Visit Reason Onset Date Comments Supplies 09/20/2010 Encounter Details Date Type Department Care Team Description 09/20/2010 Telephone [facility] Alka Jade RN Supplies [address] [place] [address] [place], [place] [address] Social History Tobacco Use Types [...] - 09/20/2010 10:02 AM CST Verified that [facility] received fax for supplies on 09/17/10. SECURITY OFFICER Telephone Encounter - Alka Jade RN - [...] 1955 (home) Insurance: PCP: Outside Provider Comment: [facility] [phone] Prescribed supplies Expects Return Call at: home see above SECURITY OFFICER documented in this encounter Plan of Treatment Not on filedocumented as of this encounter Visit Diagnoses Not on filedocumented in this encounter Care Teams Cartography/Mapping Technician Relationship Specialty Start Date End Date Provider, Outside PCP - General 03/13/09 10/22/18 [place] [address] documented as of this encounter
--- OUTSIDE RECORDS SUMMARY | 2022-05-02 09:02 | XMS_ITS | Encounter Summary ---
:1955 Author Organization [facility] Address [address] [place] [address] Phone Care Team Providers Name Role Phone Provider, Outside Primary Care Provider Unavailable Encounter Details Date Type Department Care Team Description 05/17/2010 Letters(Tab) [facility] Urology Omar Savage MD [address] [place] [address], [address] Research Only [place] [address] Social History Tobacco Use Types Packs/Day Years Used Date Smoking Tobacco: Never Alcohol Use Standard Drinks/Week Comments Yes 3.3 (1 standard drink = 0.6 oz pure alco hol) Sex Assigned at Date Recorded Not on file documented as of this encounter Progress Notes Omar Savage MD - 05/18/2010 6:15 AM CDT [facility] [address] [place] [address] May 17, 2010 TO: Micheal Rene [address] [facility] [place] [address] RE:MICHEAL RENE MR#:[id number] :1955 Dear Mr. Rene: From your recent urology clinic visit, the renal ultrasound that was performed does not show any evidence of kidney abnormalities. There is no dilation, no hydronephrosis or stones noted. Best wishes. Look forward to seeing you in 1 year. Please feel free to contact me for questions. Sincerely, Omar Savage MD Staff Physician Surgery Service Received in Hr Assistant: 05/17/2010 21:18 M: 05/18/2010 03:15 javon CS/javon Voice ID: [id number] Document ID: [id number] cc:Micheal Rene [id number] MICHELLE Espino [id number] documented in this encounter Plan of Treatment Not on filedocumented as of this encounter Visit Diagnoses Not on filedocumented in this encounter Care Teams Railway Signal Technician Relationship Specialty Start Date End Date Provider, Outside PCP - General 03/13/09 10/22/18 [place] [address] documented as of this encounter
--- OUTSIDE RECORDS SUMMARY | 2022-05-02 09:03 | XMS_ITS | Encounter Summary ---
:1955 Author Organization [facility] Address [address] [place] [address] Phone Care Team Providers Name Role Phone [...]
--- OUTSIDE RECORDS SUMMARY | 2022-05-02 09:03 | XMS_ITS | Encounter Summary ---
:1955 Author Organization [facility] Address [address] [place] [address] Phone Care Team Providers Name Role Phone Unavailable Primary Care Provider Unavailable Encounter Details Date Type Department Care Team Description 07/03/1995 Orders Only [facility] [address] [place], [place] [address] Social History Tobacco Use Types Packs/Day Years Used Date Smoking Tobacco: Never Assessed Sex Assigned at Date Recorded Not on file documented as of this encounter Plan of Treatment Not on filedocumented as of this encounter Procedures Procedure Name Priority Date/Time Associated Diagnosis Comme nts XR COCCYX AP & LAT Routine 07/03/1995 2:10 PM Res ults for this FLIGHT OPERATIONS INSPECTOR procedure are i n the results section. documented in this encounter Results XR COCCYX AP & LAT (07/03/1995 2:10 PM FLIGHT OPERATIONS INSPECTOR) Anatomical Region Laterality Modality Lumbar Spine Computed Radiography Specimen (Source) Anatomical Collection Method Collection Time Re ceived Time Location / / Volume Laterality 07/03/1995 2:10 PM FLIGHT OPERATIONS INSPECTOR Impressions 07/05/1995 12:33 PM FLIGHT OPERATIONS INSPECTOR : ??Please see Sacrum report dated 07/03/95 1410. ASI END: RELEASE RESULTS: (Y) END RESULT: IMPRESSION Narrative 07/05/1995 12:33 PM FLIGHT OPERATIONS INSPECTOR Final Report EXAM: ?? COCCYX AP & [...]
--- OUTSIDE RECORDS SUMMARY | 2022-05-02 09:03 | XMS_ITS | Encounter Summary ---
:1955 Author Organization [facility] Address [address] [place] [address] Phone Care Team Providers Name Role Phone Unavailable Primary Care Provider Unavailable Reason for Visit Reason Onset Date Comments Medication Refill 10/16/2007 Encounter Details Date Type Department Care Team Description 10/16/2007 Refill HFA Urology Omar Savage MD Medication Refill [address] [facility], [address] Research Only [place], [place] [address] Social History Tobacco Use Types [...]
--- OUTSIDE RECORDS SUMMARY | 2022-05-02 09:03 | XMS_ITS | Encounter Summary ---
:1955 Author Organization [facility] Address [address] [place] [address] Phone Care Team Providers Name Role Phone Unavailable Primary Care Provider Unavailable Encounter Details Date Type Department Care Team Description 09/02/2005 Letters(Tab) Unknown, Provider Social History Tobacco Use Types Packs/Day Years Used Date Smoking Tobacco: Never Assessed Sex Assigned at Date Recorded Not on file documented as of this encounter Progress Notes Interface, Tool Storage Attendant-In - 11/15/2005 1:36 AM CDT [facility] [address] [facility], [address] [place], [place] [address] September 02, 2005 Mr. Micheal Rene [address] [place] [address] RE: MCIHEAL RENE MR#: [id number] Dear Mr. Rene: From your recent Urology Clinic visit, your prostate specific antigen value remains low at 2.6. We will communicate with you once your other screening studies and x-ray studies have been completed. Best wishes. Please feel free to contact me for questions. Sincerely, Omar Savage MD Received in Tool Storage Attendant: 09/02/2005 14:40:28 (M: 09/03/2005 06:57:04 dma) CS/fidelina Voice ID: [id number] Document ID: [id number] cc: This document was electronically signed by Omar Savage MD on 09/06/2005 18:13:45. documented in this encounter Plan of Treatment Not on filedocumented as of this encounter Visit Diagnoses Not on filedocumented in this encounter
--- OUTSIDE RECORDS SUMMARY | 2022-05-02 09:03 | XMS_ITS | Encounter Summary ---
:1955 Author Organization [facility] Address [address] [place] [address] Phone Care Team Providers Name Role Phone Unavailable Primary Care Provider Unavailable Encounter Details Date Type Department Care Team Description 05/15/2003 EWeb History [facility]G Sameera Frances MD [address] [facility] [address] [place], [place] [address] 7 Mail Code [address] [place] [address] (Wo rk) Social History Tobacco Use Types Packs/Day Years Used Date Smoking Tobacco: Never Assessed Sex Assigned at Date Recorded Not on file documented as of this encounter Plan of Treatment Not on filedocumented as of this encounter Visit Diagnoses Not on filedocumented in this encounter
--- OUTSIDE RECORDS SUMMARY | 2022-05-02 09:03 | XMS_ITS | Encounter Summary ---
:1955 Author Organization [facility] Address [address] [place], [place] [address] [place] [address] Phone Care Team Providers Name Role Phone Unavailable Primary Care Provider Unavailable Encounter Details Date Type Department Care Team Description 09/02/2005 Orders Only [facility] Ultrasound [address] [place], [place] [address] Social History Tobacco Use Types Packs/Day Years Used Date Smoking Tobacco: Never Assessed Sex Assigned at Date Recorded Not on file documented as of this encounter Plan of Treatment Not on filedocumented as of this encounter Procedures Procedure Name Priority Date/Time Associated Diagnosis Comme nts ULT KIDNEYS Routine 09/02/2005 3:16 PM Results f or this COMPLETE IMMIGRATION COORDINATOR procedure are i n the results section. documented in this encounter Results ULT KIDNEY COMPLETE (09/02/2005 3:16 PM IMMIGRATION COORDINATOR) Anatomical Region Laterality Modality Abdomen Ultrasound Specimen (Source) Anatomical Collection Method Collection Time Re ceived Time Location / / Volume Laterality 09/02/2005 3:16 PM IMMIGRATION COORDINATOR Impressions 09/05/2005 9:17 AM IMMIGRATION COORDINATOR : ??NO FOCAL MASS, STONE, OR HYDRONEPHROSIS IDENTIFIED WITHIN EITHER KIDNEY. I have personally reviewed the image(s) and initial interpretation, and I agree with the findings. . . Read Date: Sep 02 2005 ??4:12P BENEDICT AU M.D. - STAFF RADIOLOGIST FABIOLA AVALOS M.D. - RESIDENT RADIOLOGIST RELEASE RESULTS: (Y) ASI END: END RESULT: DATE DICTATED: () DIAL SCREW ASSEMBLER: ( ) IMPRESSION Narrative 09/05/2005 9:17 AM IMMIGRATION COORDINATOR FABIOLA AVALOS M.D. - RESIDENT RADIOLOGIST Final Report EXAM: ?? RENAL US: [place] IRA KIDNEYS ?? 04/2006 15:16 HISTORY: ??Neurogenic bladder. [...] RESIDENT RADIOLOGIST Final Report EXAM: RENAL US: [place] IRA KIDNEYS 15:16 HISTORY: Neurogenic bladder. COMPARISON: 10/12/01. [...] ASI END: END RESULT: DATE DICTATED: () DIAL SCREW ASSEMBLER: ( ) IMPRESSION Omar Savage MD ULT documented in this encounter Visit Diagnoses Not on filedocumented in this encounter
--- OUTSIDE RECORDS SUMMARY | 2022-05-02 09:03 | XMS_ITS | Encounter Summary ---
:1955 Author Organization [facility] Address [address] [place] [address] Phone Care Team Providers Name Role Phone Unavailable Primary Care Provider Unavailable Encounter Details Date Type Department Care Team Description 10/12/2001 Orders Only [facility] [address] [place], [place] [address] Social History Tobacco Use Types Packs/Day Years Used Date Smoking Tobacco: Never Assessed Sex Assigned at Date Recorded Not on file documented as of this encounter Plan of Treatment Not on filedocumented as of this encounter Procedures Procedure Name Priority Date/Time Associated Diagnosis Comme nts XR CHEST 2 VIEWS PA Routine 10/12/2001 12:00 PM R esults for this + LAT* CEMENT FINISHER HELPER procedure are i n the results section. ULT KIDNEYS Routine 10/12/2001 11:22 AM Results for this COMPLETE CEMENT FINISHER HELPER procedure are i n the results section. documented in this encounter Results XR CHEST 2 VIEWS PA & LAT (10/12/2001 12:00 PM CEMENT FINISHER HELPER) Anatomical Region Laterality Modality Chest Digital Radiography Specimen (Source) Anatomical Collection Method Collection Time Re ceived Time Location / / Volume Laterality 10/12/2001 12:00 PM CEMENT FINISHER HELPER Impressions 10/14/2001 3:54 PM CEMENT FINISHER HELPER : 1. ??NO PULMONARY FIBROSIS OR AIR-SPACE INFILTRATE SEEN. 2. ??STABLE RIGHT LOWER LOBE PULMONARY N ODULE, LIKELY CALCIFIED. 3. ??INTERVAL MORE PROMINENT DENSITY OVE R THE MEDIAL ASPECT OF THE RIGHT APEX, OF UNCERTAIN CLINICAL SIGNIFICANCE . ??FURTHER EVALUATION WITH LORDOTIC VIEW MAY BE HELPFUL. ASI END: RELEASE RESULTS: (Y) END RESULT: IMPRESSION Narrative 10/14/2001 3:54 PM CEMENT FINISHER HELPER Final Report EXAM: ?? CHEST 2 VIEWS [...] X-RAY ULT KIDNEY COMPLETE (10/12/2001 11:22 AM CEMENT FINISHER HELPER) Anatomical Region Laterality Modality Abdomen Ultrasound Specimen (Source) Anatomical Collection Method Collection Time Re ceived Time Location / / Volume Laterality 10/12/2001 11:22 AM CEMENT FINISHER HELPER Impressions 10/15/2001 4:06 PM CEMENT FINISHER HELPER : 1. ??NO RENAL STONES IDENTIFIED. 2. ??MILD CORTICAL THINNING BILATERALLY. ??THIS MAY INDICATE MEDICAL RENAL DISEASE. I have personally reviewed the image(s) and initial interpretation, and I agree with the findings. ASI END: RELEASE RESULTS: (Y) END RESULT: IMPRESSION Narrative 10/15/2001 4:06 PM CEMENT FINISHER HELPER Final Report EXAM: ?? RENAL US: TANACROSS KIDNEYS ?- ??10/12/2001 11:22AM SUSPECTED PATHOLOGY: SYMPTOMS [...] the original. Final Report EXAM: RENAL US: TANACROSS KIDNEYS - 002 11:22AM SUSPECTED PATHOLOGY: SYMPTOMS [...]
--- OUTSIDE RECORDS SUMMARY | 2022-05-02 09:03 | XMS_ITS | Encounter Summary ---
:1955 Author Organization [facility] Address [address] [place], [place] [address] [place] [address] Phone Care Team Providers Name Role Phone Unavailable Primary Care Provider Unavailable Encounter Details Date Type Department Care Team Description 12/09/1998 Orders Only [facility] MRI G[address] [place], [place] [address] Social History Tobacco Use Types [...]
--- OUTSIDE RECORDS SUMMARY | 2022-05-02 09:03 | XMS_ITS | Encounter Summary ---
:1955 Author Organization [facility] Address [address] [place] [address] Phone Care Team Providers Name Role Phone [...] 09/19/2001 5:05 PM Re sults for this CLINICAL NURSE LEADER procedure are i n the results section. PSA Routine 09/19/2001 5:05 PM Results f or this DIAGNOSTIC(PROSTATE CLINICAL NURSE LEADER procedur e are in SPE AG the results section. CREATININE, SERUM Routine 09/19/2001 5:05 PM Resu lts for this CLINICAL NURSE LEADER procedure are i n the results section. documented in this encounter Results PSA DIAGNOSTIC(PROSTATE SPE AG (09/19/2001 5:05 PM CLINICAL NURSE LEADER) athologist Signature PSA Diagnostic 0.5 0.00 - 4.00 H[facility] LAB NG/ML Specimen Anatomical Collection Method Collection Time Receive d Time (Source) Location / / Volume Laterality Blood 09/19/2001 5:05 PM 2 5:26 CLINICAL NURSE LEADER PM CLINICAL NURSE LEADER Omar Savage MD LABORATORY Performing Organization Address City/State/ZIP Code Phon e Number HFA LAB BUN (UREA NITROGEN) (09/19/2001 5:05 PM CLINICAL NURSE LEADER) athologist Signature BUN 13 5 - 25 MG/DL [facility] LAB Specimen Anatomical Collection Method Collection Time Receive d Time (Source) Location / / Volume Laterality Blood 09/19/2001 5:05 PM 2 5:26 CLINICAL NURSE LEADER PM CLINICAL NURSE LEADER Omar Savage MD LABORATORY Performing Organization Address City/State/ZIP Code Phon e Number HFA LAB CREATININE, SERUM (09/19/2001 5:05 PM CLINICAL NURSE LEADER) P athologist Signature Creatinine 0.5 0.5 - 1.4 [facility] LAB MG/DL Specimen Anatomical Collection Method Collection Time Receive d Time (Source) Location / / Volume Laterality Blood 09/19/2001 5:05 PM 2 5:26 CLINICAL NURSE LEADER PM CLINICAL NURSE LEADER Omar Savage MD LABORATORY Performing Organization Address City/State/ZIP Code Phon e Number HFA LAB documented in this encounter Visit Diagnoses Not on filedocumented in this encounter
--- OUTSIDE RECORDS SUMMARY | 2022-05-02 09:03 | XMS_ITS | Encounter Summary ---
:1955 Author Organization [facility] Address [address] [facility] [address] Phone Care Team Providers Name Role Phone Unavailable Primary Care Provider Unavailable Encounter Details Date Type Department Care Team Description 01/29/2001 Orders Only [facility] EMG Sameera Frances MD [address] [facility] [address] [place], [place] [address] 5 Mail Code P5 [place] [address] (Wo rk) Social History Tobacco [...] Results URINE CX (01/29/2001 3:37 PM CDT) [facility] Method Time Signature Urine Cult [facility] LAB Test Name ? Collected on --------- [...] PM 01/31 CDT 10:25 AM CDT Narrative [facility] - 01/31/2001 10:25 AM CDT Ordered by an unspecified provider. Provider Unknown LAB MICROBIOLOGY Performing Organization Address City/State/ZIP Code Phon e Number [facility] [place] [address] LAB URINALYSIS, TOTAL (01/29/2001 3:37 PM CDT) [facility] Method Time Signature Color YELLOW YELLOW [facility] Appearance CLEAR CLEAR [facility] Urine Glucose NEGATIVE NEGATIVE [facility] Bili UA NEGATIVE NEGATIVE [facility] Ketones NEGATIVE NEGATIVE [facility] Specific [place] 1.010 1.003 - [facility] 1.030 Blood Ur TRACE Neg-Trace [facility] PH Urine 6.5 5.0 - 7.0 [facility] Protein Ur NEGATIVE NEGATIVE [facility] Urobilinogen 0.2 0.2 - 1.0 [facility] EU/dL Nitrite Ur NEGATIVE NEGATIVE [facility] Leuk Est TRACE Neg-Trace [facility] Microscopic [facility] WBC Ur 0 - 5 0 - 5 [facility] Trans Epith 1+ [facility] Sperm 1+ [facility] Specimen Anatomical Collection Method Collection Time Receive d Time (Source) Location / / Volume Laterality Urine 01/29/2001 3:37 PM 1 4:56 CDT PM CDT Narrative [facility] - 01/29/2001 4:56 PM CDT Ordered by an unspecified provider. Provider Unknown LABORATORY Performing Organization Address City/State/ZIP Code Phon e Number [facility] [place] [address] LAB documented in this encounter Visit Diagnoses Not on filedocumented in this encounter
--- OUTSIDE RECORDS SUMMARY | 2022-05-02 09:03 | XMS_ITS | Encounter Summary ---
:1955 Author Organization [facility] Address [address] [place] [address] Phone Care Team Providers Name Role Phone Unavailable Primary Care Provider Unavailable Encounter Details Date Type Department Care Team Description 10/22/2007 Abstract HFA Multispecialty Abstract, Provider [address], [address] [place], [place] [address] Social History Tobacco Use Types [...]
--- OUTSIDE RECORDS SUMMARY | 2022-05-02 09:03 | XMS_ITS | Encounter Summary ---
:1955 Author Organization [facility] Address [address] [place] [address] Phone Care Team Providers Name Role Phone Unavailable Primary Care Provider Unavailable Encounter Details Date Type Department Care Team Description 05/10/2005 EWeb History [facility]G Sameera Frances MD [address] [facility] [address] [place], [place] [address] Mail Code P[address] [place] [address] (Wo rk) Social History Tobacco Use Types Packs/Day Years Used Date Smoking Tobacco: Never Assessed Sex Assigned at Date Recorded Not on file documented as of this encounter Plan of Treatment Not on filedocumented as of this encounter Visit Diagnoses Not on filedocumented in this encounter
--- OUTSIDE RECORDS SUMMARY | 2022-05-02 09:03 | XMS_ITS | Encounter Summary ---
:[address] [facility] Address [address] [place] [address] Phone Care Team Providers Name Role Phone Pcp, No Primary Care Provider Unavailable Reason for Visit Reason Comments Follow-up med check-in Encounter Details Date Type Department Care Team Description 01/24/2008 Office Visit HFA Urology Omar Savage, Neurogenic Bladder [address] [facility] (Primary Dx) [address] Research Only [place], [place] [address] Social History Tobacco Use Types Packs/Day Years Used Date Smoking Tobacco: Never Alcohol Use Standard Drinks/Week Comments Yes 3.3 (1 standard drink = 0.6 oz pure alco hol) Sex Assigned at Date Recorded Not on file documented as of this encounter Progress Notes Omar Savage MD - 01/29/2008 2:[address] [facility] [address] [facility] [place] [address] (fax) MEDREC#: [id number] PATIENT: MICHEAL RENE : 1955 DATE: 01/24/2008 [...] this examination. Omar Savage MD Received in Anesthesia Associate: 01/24/2008 17:47:53 (M: 01/29/2008 08:19:42 aml) CS/aml Voice ID: [id number] Document ID: [id number] cc: Omar Savage MD - 01/24/2008 5:48 [...] eGFR, >60 mL/min/1.73 HFA LAB Non- m2 Turk[place] Specimen Anatomical Collection Method Collection Time Receive d Time (Source) Location / / Volume Laterality Blood 01/24/2008 4:05 PM 8 4:29 CDT PM CDT Omar Savage MD LABORATORY Performing Organization Address City/[facility]/ZIP Code Phon e Number HFA LAB GLOMERULAR FILTRATION RATE B (01/24/2008 4:05 PM CDT) P athologist Signature eGFR, >60 mL/min/1.73 HFA LAB Turk[place] m2 Comment: IDMS TRACEABLE CALIBRATION EFFECTIVE 08/16/2007 Specimen Anatomical Collection Method Collection Time Receive d Time (Source) Location / / Volume Laterality Blood 01/24/2008 4:05 PM 8 4:29 CDT PM CDT Omar Savage MD LABORATORY Performing Organization Address City/[facility]/ZIP Code Phon e Number HFA LAB (ABNORMAL) [...] NOS documented in this encounter Care Teams Junior Account Executive Relationship Specialty Start Date End Date Pcp, No PCP - General 01/24/08 03/12/09 [facility] [place] [address] documented as of this encounter
--- OUTSIDE RECORDS SUMMARY | 2022-05-02 09:03 | XMS_ITS | Encounter Summary ---
:1955 Author Organization [facility] Address [address] [place] [address] Phone Care Team Providers Name Role Phone Unavailable Primary Care Provider Unavailable Encounter Details Date Type Department Care Team Description 07/03/1995 Orders Only [facility] [address] [place], [place] [address] Social History Tobacco Use Types Packs/Day Years Used Date Smoking Tobacco: Never Assessed Sex Assigned at Date Recorded Not on file documented as of this encounter Plan of Treatment Not on filedocumented as of this encounter Procedures Procedure Name Priority Date/Time Associated Diagnosis Comme nts XR SACRUM AP & LAT Routine 07/03/1995 2:10 PM Res ults for this PARKING ASSISTANT procedure are i n the results section. XR COCCYX AP & LAT Routine 07/03/1995 2:10 PM Res ults for this PARKING ASSISTANT procedure are i n the results section. documented in this encounter Results XR COCCYX AP & LAT (07/03/1995 2:10 PM PARKING ASSISTANT) Anatomical Region Laterality Modality Lumbar Spine Computed Radiography Specimen (Source) Anatomical Collection Method Collection Time Re ceived Time Location / / Volume Laterality 07/03/1995 2:10 PM PARKING ASSISTANT Impressions 07/05/1995 12:33 PM PARKING ASSISTANT : ??Please see Sacrum report dated 07/03/95 1410. ASI END: RELEASE RESULTS: (Y) END RESULT: IMPRESSION Narrative 07/05/1995 12:33 PM PARKING ASSISTANT Final Report EXAM: ?? COCCYX AP & [...] SACRUM AP & LAT (07/03/1995 2:10 PM PARKING ASSISTANT) Anatomical Region Laterality Modality Lumbar Spine Computed Radiography Specimen (Source) Anatomical Collection Method Collection Time Re ceived Time Location / / Volume Laterality 07/03/1995 2:10 PM PARKING ASSISTANT Impressions 07/05/1995 12:33 PM PARKING ASSISTANT : ??Evidence of bone loss or destruction [...] END RESULT: IMPRESSION Narrative 07/05/1995 12:33 PM PARKING ASSISTANT Final Report EXAM: ?? SACRUM AP & [...]
--- OUTSIDE RECORDS SUMMARY | 2022-05-02 09:03 | XMS_ITS | Encounter Summary ---
:1955 Author Organization [facility] Address [address] [place] [address] Phone Care Team Providers Name Role Phone [...] 08/18/2005 12:00 AM R esults for this COOLING MACHINE OPERATOR procedure are i n the results section. PSA-SCREENING(MT) Routine 08/18/2005 12:00 AM Res ults for this COOLING MACHINE OPERATOR procedure are i n the results section. CREATININE, SERUM Routine 08/18/2005 12:00 AM Res ults for this COOLING MACHINE OPERATOR procedure are i n the results section. documented in this encounter Results PSA-SCREENING(MT) (08/18/2005 12:00 AM COOLING MACHINE OPERATOR) athologist Signature PSA Screen 2.6 0.00 - 4.00 [facility] LAB NG/ML Specimen (Source) Anatomical Collection Method Collection Time Re ceived Time Location / / Volume Laterality Blood 08/18/2005 08/18/2005 5:07 PM COOLING MACHINE OPERATOR Omar Savage MD LABORATORY Performing Organization Address City/State/ZIP Code Phon e Number HFA LAB BUN (UREA NITROGEN) (08/18/2005 12:00 AM COOLING MACHINE OPERATOR) athologist Signature BUN 9 5 - 25 MG/DL [facility] LAB Specimen (Source) Anatomical Collection Method Collection Time Re ceived Time Location / / Volume Laterality Blood 08/18/2005 08/18/2005 5:07 PM COOLING MACHINE OPERATOR Omar Savage MD LABORATORY Performing Organization Address City/State/ZIP Code Phon e Number HFA LAB CREATININE, SERUM (08/18/2005 12:00 AM COOLING MACHINE OPERATOR) P athologist Signature Creatinine <0.5 0.5 - 1.4 H[facility] LAB MG/DL Comment: REPEATED Specimen (Source) Anatomical Collection Method Collection Time Re ceived Time Location / / Volume Laterality Blood 08/18/2005 08/18/2005 5:07 PM COOLING MACHINE OPERATOR Omar Savage MD LABORATORY Performing Organization Address City/State/ZIP Code Phon e Number HFA LAB documented in this encounter Visit Diagnoses Not on filedocumented in this encounter
--- OUTSIDE RECORDS SUMMARY | 2022-05-02 09:03 | XMS_ITS | Encounter Summary ---
:1955 Author Organization [facility] Address [address] [place] [address] Phone Care Team Providers Name Role Phone Unavailable Primary Care Provider Unavailable Encounter Details Date Type Department Care Team Description 05/10/2005 Notes/Trans Unknown, Provider Social History Tobacco Use Types Packs/Day Years Used Date Smoking Tobacco: Never Assessed Sex Assigned at Date Recorded Not on file documented as of this encounter Progress Notes Interface, Stockbroker-In - 11/15/2005 12:30 AM CDT [facility] MEDREC#: [id number] [place] [address] PATIENT: MICHEAL FLETCHER : 1955 NARRATIVE NOTES [...] a father and a grandfather living in [place]. REVIEW OF SYSTEMS: A total of ten [...] depression. Equipment - he has a new Signicatie wheelchair and a J cushion with extra [...] Physical Medicine and Rehabilitation Service Received in Stockbroker: 05/10/2005 17:00:07 (M: 05/12/2005 12:51:56/[facility] [place]) [facility]/cme Voice ID: [id number] Document ID: [id number] cc: This document was electronically signed by Sameera Frances MD on 06/07/2005 14:43:43. documented in this encounter Plan of Treatment Not on filedocumented as of this encounter Visit Diagnoses Not on filedocumented in this encounter
--- OUTSIDE RECORDS SUMMARY | 2022-05-02 09:03 | XMS_ITS | Encounter Summary ---
:1955 Author Organization [facility] Address [address] [place] [place] [address] Phone Care Team Providers Name Role Phone Unavailable Primary Care Provider Unavailable Reason for Visit Reason Comments Follow-up Encounter Details Date Type Department Care Team Description 07/31/2007 Office Visit [facility] Phys Med/Rehab Sameera Frances Q uadriplegia (); Clinic Neurogenic Bowel; [address] [facility] Spastic P5.200 Mail Code P5 [place], [place] [address] [place], [place] [phone] (Wo rk) Social History Tobacco Use Types Packs/Day Years Used Date Smoking Tobacco: Never Alcohol Use Standard Drinks/Week Comments Yes 3.3 (1 standard drink = 0.6 oz pure alco hol) Sex Assigned at Date Recorded Not on file documented as of this encounter Last Filed Vital Signs Vital Sign Reading Time Taken Comments Blood Pressure 91/64 07/31/2007 3:21 PM CATERING COOK Pulse 81 07/31/2007 3:21 PM CATERING COOK Temperature - - Respiratory Rate - - Oxygen Saturation - - Inhaled Oxygen Concentration - - Weight - - Height 6 cm (2.36) 07/31/2007 3:21 PM CATERING COOK Body Mass Index - - documented in this encounter Progress Notes Sameera Frances MD - 08/15/2007 11:05 [place] [address] MEDREC#: [id number] PATIENT: MICHEAL RENE : 1955 DATE: 07/31/2007 PHYSICAL MEDICINE AND REHABILITATION NEUROLOGY CLINIC ADDENDUM: Again, under recommendations, I did talk to him that now he is 49 that he really should have an rail car repair carman who can coordinate his prophylactic care while he ages, in particular heart disease and prostate concerns. He is not interested and would just prefer to treat things as they come up, and declined my offers to arrange him with a Primary Care physician. Sameera Frances MD Staff Physician Physical Medicine and Rehabilitation Service Received in Salt Refiner: 08/02/2007 15:01:18 (M: 08/06/2007 11:31:55/dd:st) CLR/dd:st Voice ID: [id number] Document ID: [id number] cc: RING COOK Sameera Frances MD - 08/15/2007 11:05 [place] [address] [facility]#: [id number] PATIENT: MICHEAL RENE : 1955 DATE: 07/31/2007 [...] father and a grandfather. He lives in [place] and just recently he has started to [...] He has just received a new manual [employer] wheelchair with a J-cushion and he is [...] he likes because of stability. ASSESSMENT: C7 [employer] (AUDREY) A chronic spinal [...] Physical Medicine and Rehabilitation Service Received in Salt Refiner: 08/02/2007 14:58:39 (M: 08/06/2007 11:12:53/dd:st) CLR/dd:st Voice ID: [id number] Document ID: [id number] cc: RING COOK Sameera Frances MD - 08/02/2007 3:01 PM CST HPI ROS Physical Exam See my dictation for today. RING COOK documented in this encounter Plan of Treatment Not on filedocumented as of this encounter Visit Diagnoses Diagnosis Quadriplegia () Quadriplegia, unspecified Neurogenic bowel Spastic Abnormal involuntary movements documented in this encounter
--- OUTSIDE RECORDS SUMMARY | 2022-05-02 09:03 | XMS_ITS | Encounter Summary ---
:1955 Author Organization [facility] Address [address] [place], [place] [address] [place] [address] Phone Care Team Providers Name Role Phone Unavailable Primary Care Provider Unavailable Encounter Details Date Type Department Care Team Description 04/03/1997 Orders Only [place] Ultrasound [address]1.250 [place], [place] [address] Social History Tobacco Use Types [...] CDT Final Report EXAM: ?? RENAL US: VENETIE KIDNEYS ?- ??04/03/1997 01:10PM ?? EXAM: ??RENAL [...] - 03/10/2006 Final Report EXAM: RENAL US: VENETIE KIDNEYS - 997 01:10PM EXAM: RENAL ULTRASOUND [...]
--- OUTSIDE RECORDS SUMMARY | 2022-05-02 09:03 | XMS_ITS | Encounter Summary ---
:1955 Author Organization [facility] Address [address] [place] [address] Phone Care Team Providers Name Role Phone Unavailable Primary Care Provider Unavailable Encounter Details Date Type Department Care Team Description 08/18/2005 Notes/Trans Unknown, Provider Social History Tobacco Use Types Packs/Day Years Used Date Smoking Tobacco: Never Assessed Sex Assigned at Date Recorded Not on file documented as of this encounter Progress Notes Interface, Nicker-In - 11/15/2005 1:28 AM CDT [facility]#: [id number] [facility]IC PATIENT: MICHEAL FLETCHER [address] [facility] : 1955 [place] [address] DATE: 08/18/2005 Page (fax) The patient is [...] KEFLEX, SHELLFISH, AND AUGMENTIN. His primary care gang investigator is Dr. Sameera Frances whom he sees [...] year's time. Omar Savage MD Received in Nicker: 08/22/2005 18:11:27 (M: 08/24/2005 17:01:36 cb) CS/cb Voice ID: [id number] Document ID: [id number] cc: This document was electronically signed by Omar Savage MD on 08/26/2005 10:47:02. ? documented in this encounter Plan of Treatment Not on filedocumented as of this encounter Visit Diagnoses Not on filedocumented in this encounter
--- OUTSIDE RECORDS SUMMARY | 2022-05-02 09:03 | XMS_ITS | Encounter Summary ---
:1955 Author Organization [facility] Address [address] [place] [address] Phone Care Team Providers Name Role Phone Unavailable Primary Care Provider Unavailable Encounter Details Date Type Department Care Team Description 04/03/1997 Orders Only [facility] XRAY [address] [place], [place] [address] Social History Tobacco Use Types [...]
--- OUTSIDE RECORDS SUMMARY | 2022-05-02 09:03 | XMS_ITS | Encounter Summary ---
:1955 Author Organization [facility] Address [address] [place] [address] Phone Care Team Providers Name Role Phone Unavailable Primary Care Provider Unavailable Encounter Details Date Type Department Care Team Description 09/29/2006 Letters(Tab) [facility] Omar Savage MD [facility] [address] [facility] [address]5.[address] [place], [place] [address] Social History Tobacco Use Types Packs/Day Years Used Date Smoking Tobacco: Never Assessed Sex Assigned at Date Recorded Not on file documented as of this encounter Progress Notes Omar Savage MD - 09/29/2006 4:34 PM CST [facility] [address] [place] [address] 09/29/2006 TO: Micheal Rene [address] [place], [place] [address] RE: MICHEAL RENE MR#: [id number] Dear Mr. Rene: From your recent Urology Clinic visit your prostate specific antigen value remains in a normal level and is 2.87. Best wishes and please feel free to contact us for questions. Sincerely, Omar Savage MD Received in Summer Intern: 09/29/2006 12:33:54 (M: 09/29/2006 13:29:47 kms) CS/kms Voice ID: [id number] Document ID: [id number] cc: Micheal Rene [address] [facility] [address] AL WORK LECTURER documented in this encounter Plan of Treatment Not on filedocumented as of this encounter Visit Diagnoses Not on filedocumented in this encounter
--- OUTSIDE RECORDS SUMMARY | 2022-05-02 09:03 | XMS_ITS | Encounter Summary ---
:1955 Author Organization [facility] Address [address] [place] [address] Phone Care Team Providers Name Role Phone Pcp, No Primary Care Provider Unavailable Encounter Details Date Type Department Care Team Description 01/29/2008 Letters(Tab) [facility] Omar Savage MD [facility] [address] [place] [address] P5.620 [place], [place] [address] Social History Tobacco Use Types Packs/Day Years Used Date Smoking Tobacco: Never Alcohol Use Standard Drinks/Week Comments Yes 3.3 (1 standard drink = 0.6 oz pure alco hol) Sex Assigned at Date Recorded Not on file documented as of this encounter Progress Notes Omar Savage MD - 01/30/2008 7:[address] [facility] [address] [place] [address] 01/29/2008 TO: Micheal Rene [address] [place] [address] RE: MICHEAL RENE MR#: [id number] Dear Mr. Rene: From your recent Urology Clinic visit, your laboratory values remain stable. Your serum creatinine remains low because of your low body mass. It is 0.29. Your prostate-specific antigen blood test is 2.38, with normal up to 4. We await your return visit in one year. Best wishes. Sincerely, Omar Savage MD Received in Sandblast Operator: 01/29/2008 16:28:05 (M: 01/30/2008 02:45:25 jlb) CS/golden Voice ID: [id number] Document ID: [id number] cc: Micheal Rene documented in this encounter Plan of Treatment Not on filedocumented as of this encounter Visit Diagnoses Not on filedocumented in this encounter Care Teams Commercial Real Estate Underwriter Relationship Specialty Start Date End Date Pcp, No PCP - General 01/24/08 03/12/09 [facility] [place] [id number] documented as of this encounter
--- OUTSIDE RECORDS SUMMARY | 2022-05-02 09:03 | XMS_ITS | Encounter Summary ---
:1955 Author Organization [facility] Address [address] [place] [address] Phone Care Team Providers Name Role Phone Pcp, No Primary Care Provider Unavailable Reason for Visit Reason Onset Date Comments Refill Request 01/28/2008 Encounter Details Date Type Department Care Team Description 01/28/2008 Refill [facility] Urology Omar Savage MD Refill Request [address] [facility] Research Only [place], [place] [address] Social [...] on filedocumented in this encounter Care Teams Visual Display Associate Relationship Specialty Start Date End Date Pcp, No PCP - General 01/24/08 03/12/09 [facility] [place] [address] documented as of this encounter
--- OUTSIDE RECORDS SUMMARY | 2022-05-02 09:03 | XMS_ITS | Encounter Summary ---
:1955 Author Organization [facility] Address [address] [facility] [place] [address] Phone Care Team Providers Name Role Phone Unavailable Primary Care Provider Unavailable Encounter Details Date Type Department Care Team Description 03/04/2003 EWeb History [facility] Surgery Clinic Bubba Tavarez MD [address] Mail Code P5 [place], [place] [address] [place] [address] [phone] (Wo rk) Social History Tobacco Use Types Packs/Day Years Used Date Smoking Tobacco: Never Assessed Sex Assigned at Date Recorded Not on file documented as of this encounter Plan of Treatment Not on filedocumented as of this encounter Visit Diagnoses Not on filedocumented in this encounter
--- OUTSIDE RECORDS SUMMARY | 2022-05-02 09:03 | XMS_ITS | Encounter Summary ---
:1955 Author Organization [facility] Address [address] [place], [place] [address] [place] [address] Phone Care Team Providers Name Role Phone Unavailable Primary Care Provider Unavailable Encounter Details Date Type Department Care Team Description 10/12/2001 Orders Only [facility] [place] [address] [place], [place] [address] Social History Tobacco Use Types Packs/Day Years Used Date Smoking Tobacco: Never Assessed Sex Assigned at Date Recorded Not on file documented as of this encounter Plan of Treatment Not on filedocumented as of this encounter Procedures Procedure Name Priority Date/Time Associated Diagnosis Comme nts ULT KIDNEYS Routine 10/12/2001 11:22 AM Results for this COMPLETE PRESSING DEPARTMENT SUPERVISOR procedure are i n the results section. documented in this encounter Results ULT KIDNEY COMPLETE (10/12/2001 11:22 AM PRESSING DEPARTMENT SUPERVISOR) Anatomical Region Laterality Modality Abdomen Ultrasound Specimen (Source) Anatomical Collection Method Collection Time Re ceived Time Location / / Volume Laterality 10/12/2001 11:22 AM PRESSING DEPARTMENT SUPERVISOR Impressions 10/15/2001 4:06 PM PRESSING DEPARTMENT SUPERVISOR : 1. ??NO RENAL STONES IDENTIFIED. 2. ??MILD CORTICAL THINNING BILATERALLY. ??THIS MAY INDICATE MEDICAL RENAL DISEASE. I have personally reviewed the image(s) and initial interpretation, and I agree with the findings. ASI END: RELEASE RESULTS: (Y) END RESULT: IMPRESSION Narrative 10/15/2001 4:06 PM PRESSING DEPARTMENT SUPERVISOR Final Report EXAM: ?? RENAL US: HAMILTON KIDNEYS ?- ??10/12/2001 11:22AM SUSPECTED PATHOLOGY: SYMPTOMS [...] the original. Final Report EXAM: RENAL US: HAMILTON KIDNEYS - 002 11:22AM SUSPECTED PATHOLOGY: SYMPTOMS [...]
--- OUTSIDE RECORDS SUMMARY | 2022-05-02 09:03 | XMS_ITS | Encounter Summary ---
:1955 Author Organization [facility] Address [address] [place] [address] Phone Care Team Providers Name Role Phone Unavailable Primary Care Provider Unavailable Encounter Details Date Type Department Care Team Description 09/02/[address] [facility] XRAY [address] [place], [place] [address] Social History Tobacco Use Types Packs/Day Years Used Date Smoking Tobacco: Never Assessed Sex Assigned at Date Recorded Not on file documented as of this encounter Plan of Treatment Not on filedocumented as of this encounter Procedures Procedure Name Priority Date/Time Associated Diagnosis Comme nts ULT KIDNEYS Routine 09/02/2005 3:16 PM Results f or this COMPLETE EMULSION COATER procedure are i n the results section. XR CHEST 2 VIEWS PA Routine 09/02/2005 3:03 PM Re sults for this + LAT* EMULSION COATER procedure are i n the results section. documented in this encounter Results ULT KIDNEY COMPLETE (09/02/2005 3:16 PM EMULSION COATER) Anatomical Region Laterality Modality Abdomen Ultrasound Specimen (Source) Anatomical Collection Method Collection Time Re ceived Time Location / / Volume Laterality 09/02/2005 3:16 PM EMULSION COATER Impressions 09/05/2005 9:17 AM EMULSION COATER : ??NO FOCAL MASS, STONE, OR HYDRONEPHROSIS IDENTIFIED WITHIN EITHER KIDNEY. I have personally reviewed the image(s) and initial interpretation, and I agree with the findings. . . Read Date: Sep 02 2005 ??4:12P BENEDICT AU M.D. - STAFF RADIOLOGIST FABIOLA AVALOS M.D. - RESIDENT RADIOLOGIST RELEASE RESULTS: (Y) ASI END: END RESULT: DATE DICTATED: () DIRECTOR E LEARNING: ( ) IMPRESSION Narrative 09/05/2005 9:17 AM EMULSION COATER FABIOLA AVALOS M.D. - RESIDENT RADIOLOGIST Final Report EXAM: ?? RENAL US: WASHOE KIDNEYS ?? 04/2006 15:16 HISTORY: ??Neurogenic bladder. [...] RESIDENT RADIOLOGIST Final Report EXAM: RENAL US: WASHOE KIDNEYS 15:16 HISTORY: Neurogenic bladder. COMPARISON: 10/12/01. [...] ASI END: END RESULT: DATE DICTATED: () DIRECTOR E LEARNING: ( ) IMPRESSION Omar Savage MD ULT XR CHEST 2 VIEWS PA & LAT (09/02/2005 3:03 PM EMULSION COATER) Anatomical Region Laterality Modality Chest Digital Radiography Specimen (Source) Anatomical Collection Method Collection Time Re ceived Time Location / / Volume Laterality 09/02/2005 3:03 PM EMULSION COATER Impressions 09/02/2005 3:58 PM EMULSION COATER : ??NO ACUTE PULMONARY INFILTRATE. ?? . . Read Date: Sep 02 2005 ??3:34P VIANCA COHEN M.D. - STAFF RADIOLOGIST - RESIDENT RADIOLOGIST RELEASE RESULTS: (Y) ASI END: END RESULT: DATE DICTATED: () DIRECTOR E LEARNING: ( ) IMPRESSION Narrative 09/02/2005 3:58 PM EMULSION COATER - RESIDENT RADIOLOGIST Final Report EXAM: ?? [...] ASI END: END RESULT: DATE DICTATED: () DIRECTOR E LEARNING: ( ) IMPRESSION Omar Savage MD X-RAY documented in this encounter Visit Diagnoses Not on filedocumented in this encounter
--- OUTSIDE RECORDS SUMMARY | 2022-05-02 09:04 | XMS_ITS | Clinical Summary ---
:1955 Author Organization [facility] [place] [address] Care Team Providers Name Role Phone Ana Mayers Unavailable Alex Mata MD Primary Care Provider Allergies Active Allergy Reactions Severity Noted Date Comments Blood-Group Specific Other - Describe In 04/19/2021 Patient has Levi saucedo Substance Comment Field (Fya) antibody . Blood products may be delayed. Dra renee patient 24 hour s prior to transfusion. 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/moth exterminator care, receiving hemodialysis, has chronic open wounds/skin damage, has long-te rm percutaneous indwelling medical devic es Exclusions for nares collection (if <12 months since positive culture) include all of the previous exclusions plus patients on antibiotics 7 days prior to collection Insurance Payer Benefit Plan / Subscriber ID Effective Dates Phone Addre ss Type Group WC WORKERS COMP [facility] [id number] 1989-Prese C/O [place] [employer] [address] [place] [address] WC WORKERS COMP [facility] [id number] 1989-Prese C/O [employer] [address] [place] [address] MEDICARE PART A - MEDICARE PART [id number] 1991-Presen ATTN: CLAIMS HB USE ONLY A HB ONLY t [address] [place] [address] [facility] MR [id number] 2020-Presen [address] [address] [place] [address] Khanh Rene Workers Comp Self 1955 [id number] [employer] [address]Home[employer] [place] [address] Khanh Rene Workers Comp Self 1955 [id number] [employer]Home) [place] [address] Khanh Rene Personal/Family Self 1955 1 [id number] [employer] (Home) [place] [id number] Advance Directives Latest Code Status on File Code Status Date Activated Date Inactivated Comments Full Code 03/05/2020 6:59 AM 03/09/2020 8:07 PM Code Status Discussion: Not Discussed Full Code 04/25/2016 3:57 PM 05/10/2016 8:47 PM Full Code 2016 6:44 AM 03/14/2016 5:37 PM Full Code 12/16/2015 12:49 PM 12/25/2015 1:24 PM Full Code 12/15/2015 3:46 PM 12/16/2015 12:49 PM Care Teams Radiographer Relationship Specialty Start Date End Date Alex Mata MD PCP - General Family Practice 02/04/201999 [place] [address] Ana Mayers Nurse Practitioner 03/02/[address] [place] [address]
--- OUTSIDE RECORDS SUMMARY | 2022-05-02 09:04 | XMS_ITS ---
:1955 Author Care Team Providers Name Role Phone CHETNA MERAZ MD Primary Care Provider [phone] ANN MCLAININA Asset Administrator [phone] Allergies Code Code System Name Reaction Severity [...] MOUTH ONCE A DAY FOR 10 DAYS bkqbwzyd-vveoajuiz-rpjxrnjiy 3.5 mg-10,000 unit/mL-1 % ear d rops,susp [...] Name Performed by ? 09/27/2021 US, Kidney [facility] Radiology Department [address] [place] [address] (Work Place) Results Lab Results Date Name Specimen Result Interpretation Description Value Range Status Address ? 05/06/2021 Culture, BLDV ABNORMAL Final Report microbiology ? Final [place] Urine results [facility]rology [facility] Lab: [address] [facility] [address], [place] 05/06/2021 Urinalysis ? No ? ? ? , Dipstick observation recorded. 02/18/2021 Culture, UR ABNORMAL Final Report microbiology ? Final [place] Urine results [facility] Lab: [address], [place] ? Urinalysis ? Color-Status Yellow ? ? [...] ? ? ? Sp 1.015 ? ? [place]-Statu s ? ? ? Nitrates-Sta positive ? ? tus ? ? ? Blood-Status Trace ? Leuko-Status Large ? ? Past Encounters 09/27/2021 Neurogenic Bladder; Spinal Cord Injury; Spasm of Bladder; Recurrent Urinary Tract Infection Jono Pagan MD: [address] [place] [address], Ph. 05/06/2021 Abnormal Urine Jono Pagan MD: [address] [place] [address], Ph. 02/18/2021 Neurogenic Bladder; Spinal Cord Injury; Spasm of Bladder; Recurrent Urinary Tract Infection; Acute Urinary Tract Infection Jono Pagan MD: [address] [place] [address], Ph. Social History Tobacco Smoking Status Former [...]
--- OUTSIDE RECORDS SUMMARY | 2022-05-02 09:04 | XMS_ITS | Encounter Summary ---
:1955 Author Organization [facility] Address [address] [place] [address] Phone Care Team Providers Name Role Phone [...]
--- OUTSIDE RECORDS SUMMARY | 2022-05-02 09:04 | XMS_ITS | Encounter Summary ---
:1955 [address] [facility] Address [address] [place] [address] Phone Care Team Providers Name Role Phone [...]
== END 2022-05-02 08:59 | disposition home or self-care (01) ==
LOC: WOUND 08:58
PROVIDERS: PCP Family Medicine; Visit Provider Nurse Practitioner Family
DX: L89.614 Pressure ulcer of right heel, stage 4 (principal); S80.811A Abrasion, right lower leg, initial encounter
CPT/HCPCS: 11043; 11046

== ENCOUNTER 2022-05-16 09:00 | Outpatient (CLI) | payer OTHER, SELFPAY ==
--- OUTSIDE RECORDS SUMMARY | 2022-05-16 09:06 | XMS_ITS | Clinical Summary ---
:1955 Author Organization [facility] Address [address] [place] [address] Phone Care Team Providers Name Role Phone Lila Clay PT Unavailable Source Comments [employer] is fully rolled out on [employer]. Last update 12/26/08.[facility] Allergies Active Allergy Reactions Severity Noted Date [...] Comments Blood Pressure 135/74 09/02/2021 8:12 AM CIVIL ENGINEERING DESIGN DRAFTSPERSON Pulse 72 09/02/2021 8:12 AM CIVIL ENGINEERING DESIGN DRAFTSPERSON Temperature 36.2 ??C (97.1 ??F) 09/15/2016 8:09 AM CIVIL ENGINEERING DESIGN DRAFTSPERSON Respiratory Rate 14 04/20/2010 1:39 PM CDT [...] Phone Address Typ e / Group Dates [facility] [id number] 1990-Pre [phone] [address] Work Comp [employer] sent [employer] [place] [address] [facility] COM[facility]TE [id number] 2020-Pres [address] [facility] (MEDICARE ent [id number] Managed Care ADVANTAGE) [place] [address] [id number] Workers Comp Employer 1955 % [place]Home[place] [address] [address] [address] Care Teams Staff Software Engineer Relationship Specialty Start Date End Date Lila Clay, PT Physical Therapist Physical Therapy 04/05/21 [address] [place] [address]
--- OUTSIDE RECORDS SUMMARY | 2022-05-16 09:06 | XMS_ITS | Encounter Summary ---
:1955 Author Organization [facility] Address [address] [facility] [place] [address] Phone Care Team Providers Name Role Phone Lila Clay PT Unavailable Reason for Visit Reason Onset Date Comments Prior Authorization For Medications 09/03/2021 Boto x (onabotulinumtoxinA) Encounter Details Date Type Department Care Team Description 09/03/2021 Pharmacy Prior [facility] Sakshi Mcmanus, Authorization [address] [facility] PharmD P1.630 [address] [place], [place] [address] [place], [place] [phone] [address] Social History Tobacco Use Types Packs/Day Years [...] the patient has active primary coverage through [facility] MEDICARE ADVANTAGE ([facility]). [facility] does NOT require prior authorization for BOTOX when it is given in the clinic/infusion center and billed on the medical claim (buy and bill). IMPORTANT - READ BELOW However, [facility] reimburses BOTOX only for select designated ICD-10/Diagnosis Codes. Based on review of the patient's chart, please (continue to) use the following COVERED diagnosis code for the visits in which the patient will receive BOTOX: - G82.50 or G82.54 Quadriplegia Update 01/27/2022 - Unable to get response from [employer]. Per 10/21/2021 note appears patient was going [...] on filedocumented in this encounter Care Teams Test Design Engineer Relationship Specialty Start Date End Date Lila Clay, PT Physical Therapist Physical Therapy 04/05/[address] [place] [id number] documented as of this encounter
--- OUTSIDE RECORDS SUMMARY | 2022-05-16 09:06 | XMS_ITS | Encounter Summary ---
:1955 Author Organization [facility] Address [address] [place] [address] Phone Care Team Providers Name Role Phone Hallie Clay PT Unavailable Encounter Details Date Type Department Care Team Description 05/05/2021 Hospital Encounter Clinic & Specialty Alex [place] [address] [place] [address] [place] [address] Center Moving Picture Operator apy Hallie Clay, PT [address] 5540 Social History Tobacco Use Types [...] Dr. Alex Mata, MD Yamile Conway, ELECTRICAL LOGGING OPERATOR Current Precautions/Contraindications: At high risk for skin breakdown, s/p flap surgery, current pressure injuries on feet [facility] Pay Per Click Strategist: no DIAGNOSIS Patient Active Problem List Diagnosis [...] prefer to work is BLANQUITA Brown of [employer]. The vendor is not present during today's evaluation. 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 He has utilized a manual wheelchair as his primary means of mobility since then. He has a significant pressure injury history, including on his sacral area and feet. He received his current MWC through [employer] on 10/06/20. SUBJECTIVE Patient Complaints: I just [...] Function: Randy will cont to use his [facility] [place] and rehab accessories to complete all MRADL's, [...] independently (with hand controls) while seated in [facility] [place] [place]) Does it fold/disassemble for transportation?: Yes Is [...] Flexion Elbow Extension Wrist Flexion Wrist Extension Photolithographer Using BERNY hand dynamometer Lower Extremity Right MMT Left MMT WFL 0/5 0/5 Hip Flexion Hip Extension Hip Abduction Knee Flexion Knee Extension Dorsiflexion Inversion Eversion Plantar Flexion Great toe extension Normative fresh work wrapper layer strength values for Berny dynamometer for clinical [...] the wheelchair/mobility device?: Yes Wheelchair Management/Training (CPT 26666): 15 min during session(s) Pressure mapping completed [...] Specific Question: Schedule with: Answer: HALLIE CLAY [[id number]] Order Specific Question: Number of Visits patient [...] conditions documented in this encounter Care Teams Gauger Chief Delivery Relationship Specialty Start Date End Date Hallie Clay, PT Physical Therapist Physical Therapy 04/05/21 [address] [place] [address] documented as of this encounter
--- OUTSIDE RECORDS SUMMARY | 2022-05-16 09:06 | XMS_ITS | Encounter Summary ---
:1955 Author Organization [facility] Address [address] [place] [address] Phone Care Team Providers Name Role Phone Lila Clay PT Unavailable Reason for Visit Prior Authorization (Routine) - Closed Specialty Diagnoses / Procedures Referred By Contact Refer red To Contact Physical Therapy / Diagnoses Quadriplegia () At high risk for skin breakdown Impaired mobility Provider, Outside Lila Clay, PHYSICAL MEDICINE AND Procedures PT TREATMENT PLAN OUTSIDE PROVIDER PT REHAB [address] [address] Phone: Fax: Referral ID Status Reason Start Date Expiration Date Visits Requ ested Visits Authorized [id number] Closed 05/05/2021 01/20/2022 12 12 Encounter Details Date Type Department Care Team Description 08/11/2021 Hospital Encounter Clinic & Specialty Provider, [place] [address] No Show Center Tab Cutting Machine Operator apy Lila Clay, PT [address] [place] [address] Social History Tobacco Use Types Packs/Day [...] request, with this therapist. Lila Clay PT [facility] License: #[id number] Pager: [phone] Office: [phone] TING MATERIAL REMOVER documented in this encounter Plan of Treatment Not on filedocumented as of this encounter Visit Diagnoses Not on filedocumented in this encounter Care Teams Purification Operator Relationship Specialty Start Date End Date Lila Clay, PT Physical Therapist Physical Therapy 04/05/21 [address] [place] [address] documented as of this encounter
--- OUTSIDE RECORDS SUMMARY | 2022-05-16 09:06 | XMS_ITS | Encounter Summary ---
:1955 Author Organization [facility] Address [address] [place] [address] Phone Care Team Providers Name Role Phone [...] filedocumented in this encounter Care Teams Patient Observation Assistant Relationship Specialty Start Date End Date Lila Clay, PT Physical Therapist Physical Therapy 04/05/21 [address] [place] [address] documented as of this encounter
--- OUTSIDE RECORDS SUMMARY | 2022-05-16 09:06 | XMS_ITS | Encounter Summary ---
:1955 Author Organization [facility] Address 1 [place] [address] Phone Care Team Providers Name Role Phone Lila Clay PT Unavailable Reason for Visit Prior Authorization (Routine) - Auth Not Needed Specialty Diagnoses / Procedures Referred By Contact Refer red To Contact Physical Medicine and Diagnoses Quadriplegia, unspecified Quadriplegia, C5-C7 incomplete Muscle spasticity [M62.838] (Reminder letter sent 09/29/21 cl) Zev Alvarez MD Rehab / NEUROLOGY EMG Procedures EMG - BOTOX [address] [address] [place] [address] Phone: Fax: Referral ID Status Reason Start Date Expiration Date Visits V isits Requested Authorized [id number] Auth Not 1 2 Needed Encounter Details Date Type Department Care Team Description 10/21/2021 Hospital Encounter Clinic & Specialty Zev Alvarez , Non Billable Center EMG [address] [place] [address] 1240 [address] [place], [place] [phone] (Wo rk) Social History Tobacco Use Types [...] Name: Khanh Rene : 1955 Medical Record: [id number] History of Present Illness: 66 year old [...] to his right leg on 07/08/2019 at [facility] (Administered as 100 BF, 50 SM, [...] and discussed with Dr. Kim Ash, PGY-5, [facility] Brain Injury Fellow Pager# [phone] Associated attestation - Zev Alvarez MD - [...] on filedocumented in this encounter Care Teams Golf Cart Repairer Relationship Specialty Start Date End Date Lila Clay, PT Physical Therapist Physical Therapy 04/05/21 [address] [place] [address] documented as of this encounter
--- OUTSIDE RECORDS SUMMARY | 2022-05-16 09:06 | XMS_ITS | Encounter Summary ---
:1955 Author Organization [facility] Address [address] [place] [address] Phone Care Team Providers Name Role Phone Lila Clay PT Unavailable Reason for Visit Reason Comments Referral Consult/Test/Treat (Routine) - Closed Specialty Diagnoses / Procedures Referred By Contact Refer red To Contact Physical Medicine and Diagnoses Paraplegia, unspecified paraplegia from previous in [place] 33 yrs James Nava Csc Pm&R Cl Rehab / PHYSICAL MD [place] [address] [place] [address] MEDICINE AND REHAB [address] [place] [phone] Fax: Referral ID Status Reason Start Date Expiration Date Visits V isits Requested Authorized [id number] Closed Created in 07/20/2021 07/20/2022 1 1 PAS Encounter Details Date Type Department Care Team Description 09/02/2021 Office Visit Clinic & Specialty Center Dariel Israel uadriplegia, C5-C7 incomplete () (Primary Dx); Physical Medicine & A, PA-C Muscle spasticity Rehabilitation Clini c [address] [place] [address] [phone] Social History Tobacco Use [...] Comments Blood Pressure 135/74 09/02/2021 8:12 AM TRAY SETTER Pulse 72 09/02/2021 8:12 AM TRAY SETTER Temperature - - Respiratory Rate - - Oxygen Saturation - - Inhaled Oxygen Concentration - - Weight - - Height - - Body Mass Index - - documented in this encounter Progress Notes Dariel Israel PA-C - 09/02/2021 8:[address] [facility] Physical Medicine & Rehabilitation Clinic Khanh Rene [...] is followed by a wound clinic in [place]. He just had a wheelchair evaluation in physical therapy here at [facility]. He stated that around 2 to 3 [...] 5/5 EE 5/5 5/5 WE 4/5 4/5 Records Administrator 3/5 3/5 Strength bilateral lower extremities 0/5 [...] service, including pre-visit review of separatelyobtained history, [id number] interaction performing medically appropriate physical exam, patient counseling/education, interpretation of diagnostic results, care coordination and documentation was 46 minutes. Dictation Disclaimer: Notes are completed with voice-recognition dictation software. Errors are generally corrected in real time. Please contact me via [email or web address] staff message if you note any errors requiring clarification. SETTER documented in this encounter Plan of Treatment Scheduled Orders Name Type Priority Associated Diagnoses Order S chedule EMG - BOTOX EMG Routine Muscle spasticity Ordered: 0 09/02/2021 documented as of this encounter Procedures Procedure Name Priority Date/Time Associated Comments Diagnosis CARE EVERYWHERE 09/07/2021 11:04 Results for this AUTHORIZATION AM TRAY SETTER procedure are in the results section. CARE EVERYWHERE 09/07/2021 11:04 Results for this AUTHORIZATION AM TRAY SETTER procedure are in the results section. documented in this encounter Results CARE EVERYWHERE AUTHORIZATION (09/07/2021 11:04 AM TRAY SETTER) Narrative This result has an attachment that is no t available. Him Provider SCANNED CONSENTS CARE EVERYWHERE AUTHORIZATION (09/07/2021 11:04 AM TRAY SETTER) Narrative This result has an attachment that is no t available. Him Provider SCANNED CONSENTS documented in this encounter Visit Diagnoses Diagnosis Quadriplegia, C5-C7 incomplete () - Pr imary Quadriplegia, C5-C7, incomplete Muscle spasticity Spasm of muscle documented in this encounter Care Teams Filter Press Supervisor Relationship Specialty Start Date End Date Lila Clay, PT Physical Therapist Physical Therapy 04/05/[address] [place] [address] documented as of this encounter
--- OUTSIDE RECORDS SUMMARY | 2022-05-16 09:06 | XMS_ITS | Encounter Summary ---
:1955 Author Organization [facility] Address [address] [place] [address] Phone Care Team Providers Name Role Phone Lila Clay PT Unavailable Reason for Visit Prior Authorization (Routine) - Closed Specialty Diagnoses / Procedures Referred By Contact Refer red To Contact Physical Therapy / Diagnoses Quadriplegia () At high risk for skin breakdown Impaired mobility Provider, Outside Lila Clay, PHYSICAL MEDICINE AND Procedures PT TREATMENT PLAN OUTSIDE PROVIDER PT REHAB [address] [address] Phone: Fax: Referral ID Status Reason Start Date Expiration Date Visits Requ ested Visits Authorized [id number] Closed 05/05/2021 01/20/2022 12 12 Encounter Details Date Type Department Care Team Description 06/02/2021 Hospital Encounter Clinic & Specialty Provider, Outside OUTSIDE PROVIDER [address] Automotive Parts Counter Associate apy Lila Clay, PT [address] [place] [address] Social History Tobacco Use Types Packs/Day [...] Hospitalization: None Referring Provider: MD Yamile Alves, FILM REPRODUCER ?? Current Precautions/Contraindications: At high risk for skin breakdown, s/p flap surgery, current pressure injuries on feet [facility] Resident Hall Director: no Patient gave two identifiers for Check [...] additional changes as appropriate. O: [Billable Units/Time] (12315) Wheelchair Management: 60 min Transfer MWC/mat table [...] passive IR/ER WNL. Adjustments made to patient's [facility] this date: +Increased posterior seat dump by 1 +lowered footplates B by approximately 1 Pt returned to sitting in [facility] at end of session, able to self [...] Clay, PT [employer] [place] License: #[id number] Pager: [phone] Office: [phone] F LIFESTYLE OFFICER documented in this encounter Plan of Treatment Not on filedocumented as of this encounter Visit Diagnoses Not on filedocumented in this encounter Care Teams Chief Controller Tower Relationship Specialty Start Date End Date Lila Clay, PT Physical Therapist Physical Therapy 04/05/[address] [place] [address] documented as of this encounter
--- OUTSIDE RECORDS SUMMARY | 2022-05-16 09:06 | XMS_ITS | Encounter Summary ---
:1955 Author Organization [facility] Address [address] [place] [address] Phone Care Team Providers Name Role Phone Lila Clay PT Unavailable Reason for Visit Prior Authorization (Routine) - Closed Specialty Diagnoses / Procedures Referred By Contact Refer red To Contact Physical Therapy / Diagnoses Quadriplegia () At high risk for skin breakdown Impaired mobility Provider, Outside Lila Clay, PHYSICAL MEDICINE AND Procedures PT TREATMENT PLAN OUTSIDE PROVIDER PT REHAB [address] [place] [address] Phone: Fax: Referral ID Status Reason Start Date Expiration Date Visits Requ ested Visits Authorized [id number] Closed 05/05/2021 01/20/2022 12 12 Encounter Details Date Type Department Care Team Description 09/01/2021 Hospital Encounter Clinic & Specialty Lila Clay, No [facility] Heel Seat Laster apy PT [address] [place] [address]40 4 [place], [place] [phone] Social History Tobacco Use Types Packs/Day Years [...] items have been addressed. Lila Clay PT [facility] License: #[id number] Pager: [phone] Office: [phone] NSED RETAIL SUPERVISOR documented in this encounter Plan of Treatment Not on filedocumented as of this encounter Visit Diagnoses Not on filedocumented in this encounter Care Teams Rental Counter Clerk Relationship Specialty Start Date End Date Lila Clay, PT Physical Therapist Physical Therapy 04/05/21 [address] [place] [address] documented as of this encounter
--- OUTSIDE RECORDS SUMMARY | 2022-05-16 09:06 | XMS_ITS | Encounter Summary ---
:1955 Author Organization [facility] Address [address] [place] [address] Phone Care Team Providers Name Role Phone Lila Clay PT Unavailable Reason for Visit Prior Authorization (Routine) - Closed Specialty Diagnoses / Procedures Referred By Contact Refer red To Contact Physical Therapy / Diagnoses Quadriplegia () At high risk for skin breakdown Impaired mobility Provider, Outside Lila Clay, PHYSICAL MEDICINE AND Procedures PT TREATMENT PLAN OUTSIDE PROVIDER PT REHAB [address] [address] Phone: Fax: Referral ID Status Reason Start Date Expiration Date Visits Requ ested Visits Authorized [id number] Closed 05/05/2021 01/20/2022 12 12 Encounter Details Date Type Department Care Team Description 06/09/2021 Hospital Encounter Clinic & Specialty Provider, Outside OUTSIDE PROVIDER [address] Title I Coordinator apy Lila Clay, PT [address] [place] [address] Social History Tobacco Use Types Packs/Day [...] Hospitalization: None Referring Provider: MD Yamile Alves, FINISHING MACHINE OPERATOR ?? Current Precautions/Contraindications: At high risk for skin breakdown, s/p flap surgery, current pressure injuries on feet [facility] Analytics Manager: no Patient gave two identifiers for Check 2 for Safety Total Treatment Time: 70 Min Pain: No significant complaints during session S: Pt presents to his PT session in his MWC, independently. Also present: Matthew Ricketts/[employer]. Last 30 min of the session, patient's [facility] (Raquel Gamino, RN, PHN, MA P: [phone], F: [phone]) No significant changes; still attends wound clinic for B foot injuries weekly - missed yesterday so will be seen later this week. Pt agreed that he would like to try to adjust 1-2 items at a time; assess tolerance, and then move forward with additional changes as appropriate. Noticed that additional 'dump' is 'different' but tolerable. O: [Billable Units/Time] (86431) Wheelchair Management: 70 min Pt remained in [...] by 2? *Will request a demo from [facility], as PT looked and did not [...] require a new back frame to the [facility], but would provide additional depth to the [...] to be able to transfer in/out of [facility] independently. At end of session, all agreed [...] date include: Increased posterior seat dump on [facility] this date and pt tolerated well - [...] before then? Lila Clay PT [facility] License: #[id number] Pager: [phone] Office: [phone] TIC PHYSICIAN documented in this encounter Plan of Treatment Not on filedocumented as of this encounter Visit Diagnoses Not on filedocumented in this encounter Care Teams Cant Hooker Relationship Specialty Start Date End Date Lila Clay, PT Physical Therapist Physical Therapy 04/05/[address] [place] [address] documented as of this encounter
--- OUTSIDE RECORDS SUMMARY | 2022-05-16 09:06 | XMS_ITS | Encounter Summary ---
:1955 Author Organization [facility] Address [address] [place] [address] Phone Care Team Providers Name Role Phone Hallie Clay PT Unavailable Reason for Referral Prior Authorization (Routine) - Closed Specialty Diagnoses / Procedures Referred By Contact Refer red To Contact Physical Therapy / Diagnoses Quadriplegia () At high risk for skin breakdown Impaired mobility Provider, Outside Hallie Clay, PHYSICAL MEDICINE AND Procedures PT TREATMENT PLAN OUTSIDE PROVIDER PT REHAB [place], [place] [id number] [place] [address] Phone: Fax: Referral ID Status Reason Start Date Expiration Date Visits Requ ested Visits Authorized [id number] Closed 05/05/2021 01/20/2022 12 12 INEEDLE SHIRRER Reason for Visit Prior Authorization (Routine) - Closed Specialty Diagnoses / Procedures Referred By Contact Refer red To Contact Physical Therapy / Diagnoses Quadriplegia () At high risk for skin breakdown Impaired mobility Provider, Outside Hallie Clay, PHYSICAL MEDICINE AND Procedures PT TREATMENT PLAN OUTSIDE PROVIDER PT REHAB [place], [place] [id number] [place] [address] Phone: Fax: Referral ID Status Reason Start Date Expiration Date Visits Requ ested Visits Authorized [id number] Closed 05/05/2021 01/20/2022 12 12 Encounter Details Date Type Department Care Team Description 07/14/2021 Hospital Encounter Clinic & Specialty Provider, Outside [place] [address] Center Disease Intervention Specialist apHallie Hopkins, PT [address] [address] Social History Tobacco Use Types [...] Signature: Date: 07/14/2021 Date: Please return to: [facility] Physical Therapy [address] [address] RECERTIFICATION SUMMARY New Recertification period: 07/14/21 to [...] Recent Hospitalization:??None?? Referring Provider:?? MD Yamile Alves, CDA TEACHER ?? Current Precautions/Contraindications:?At high risk for skin breakdown, s/p flap surgery, currentpressure injuries on feet [facility] Textile Technical Officer:?no ?? Patient gave two identifiers for Check 2 for Safety Total Treatment Time: 55 Min ?? Pain: No significant complaints during session ?? S: Pt presents to his PT session in his [facility], independently. Also present: Matthew Ricketts/[employer]. Received his new off loading boots from Automobile Engine Assembler Operator Maintainer yesterday, started wearing them as of yesterday and is having difficulties with them (during transfers especially) due to the weight - also noted that they have elevated his knees which causes concern for increased pressure on IT's. ?? O: [Billable Units/Time] ?? (16512) Wheelchair Management: 55 min Pressure mapping completed [...] up with B UE's for having pressure generator repairer placed over, completed with CGA) +Sitting [...] Recommend removing foam sole, and placing nonskid surface/flight operations specialist bottom instead (lowest height possible) 4) Inside [...] - thank you. Hallie Clay, PT ATP [phone] [email or web address] Printed above information for patient to bring with to his dietetics teacher as well as to his Ortho MD [...] stabilizer? Hallie Clay, PT [employer] [place] License: #[id number] Pager: [phone] Office: [phone] ? Recertification Assessment of need for continued skilled physical therapy interventions: Patient continues to make steady progress toward short term and fci goals which have been updated to reflect [...] Specific Question: Schedule with: Answer: HALLIE CLAY [[id number]] Order Specific Question: Number of Visits patient [...] Specific Question: Schedule with: Answer: HALLIE CLAY [[id number]] Order Specific Question: Number of Visits patient should be scheduled for? Answer: 1 Order Specific Question: Modalities and Procedures Answer: Procedures Order Specific Question: Procedure Answer: Functional Activities Order Specific Question: Procedure Answer: Neuromuscular Re-education Order Specific Question: Procedure Answer: Self Care/Home Management/ADL Order Specific Question: Procedure Answer: Wheelchair Management and Training Hallie Clay PT ATP Date [place] License: #[id number] Pager: [phone] Office: [phone] INEEDLE SHIRRER documented in this encounter Plan of Treatment Not on filedocumented as of this encounter Visit Diagnoses Diagnosis Quadriplegia () Quadriplegia, unspecified At high risk for skin breakdown Other specified conditions influencing h ealth status Impaired mobility Other ill-defined conditions documented in this encounter Care Teams Product Responsibility Liaison Relationship Specialty Start Date End Date Hallie Clay PT Physical Therapist Physical Therapy 04/05/[address] [place] [address] documented as of this encounter
--- OUTSIDE RECORDS SUMMARY | 2022-05-16 09:07 | XMS_ITS | Encounter Summary ---
:1955 Author Organization [facility] Address [address] [place] [address] Phone Care Team Providers Name Role Phone Provider, Outside Primary Care Provider Unavailable Reason for Visit Reason Onset Date Comments Refill Request 10/22/2014 Encounter Details Date Type Department Care Team Description 10/22/2014 Refill [facility] Tree Vaughan, Refill Request [address] [facility] PA-C [place], [place] [address] [address] [address] [place], [place] [phone] (Wo rk) Social History Tobacco Use Types [...] NOS documented in this encounter Care Teams Food Prep Worker Relationship Specialty Start Date End Date Provider, Outside PCP - General 03/13/09 10/22/18 [place] [address] documented as of this encounter
--- OUTSIDE RECORDS SUMMARY | 2022-05-16 09:07 | XMS_ITS | Encounter Summary ---
:1955 Author Organization [facility] Address [address] [place] [address] Phone Care Team Providers Name Role Phone Provider, Outside Primary Care Provider Unavailable Reason for Visit Reason Onset Date Comments Medication Problem 01/10/2018 propantheline Encounter Details Date Type Department Care Team Description 01/10/2018 Nurse Triage Clinic & Specialty Monty Garcia, [facility] U[facility] Clini [facility] (propantheline) [address] [place] [address] [place] [address] 5540 4 [place], [place] [phone] [address] Social History Tobacco Use Types Packs/Day Years [...] to me for years A-upon review of [employer] is was found that Dr Garcia has [...] or severe? n/a Protocols used: MEDICATION QUESTION FESI-YAVLE-VI documented in this encounter Plan of Treatment Not on filedocumented as of this encounter Visit Diagnoses Not on filedocumented in this encounter Care Teams Strap Machine Operator Relationship Specialty Start Date End Date Provider, Outside PCP - General 03/13/09 10/22/18 [place] [address] documented as of this encounter
--- OUTSIDE RECORDS SUMMARY | 2022-05-16 09:07 | XMS_ITS | Encounter Summary ---
:1955 Author Organization [facility] Address 1 [place] [address] Phone Care Team Providers Name Role Phone Provider, Outside Primary Care Provider Unavailable Reason for Visit Reason Onset Date Comments Refill Request 12/23/2016 Encounter Details Date Type Department Care Team Description 12/23/2016 Refill [facility] Divya Caraballo RN Refill Request [address] [facility], [address] 701 [place], [place] [address] [place] [address] Social History Tobacco Use Types Packs/Day Years [...] on filedocumented in this encounter Care Teams Popcorn Vendor Relationship Specialty Start Date End Date Provider, Outside PCP - General 03/13/09 10/22/18 [place] [address] documented as of this encounter
--- OUTSIDE RECORDS SUMMARY | 2022-05-16 09:07 | XMS_ITS | Encounter Summary ---
:1955 Author Organization [facility] Address 1 [place] [address] Phone Care Team Providers Name Role Phone Unavailable Primary Care Provider Unavailable Reason for Visit Reason Onset Date Comments Refill Request 03/22/2019 propanthelin Encounter Details Date Type Department Care Team Description 03/22/2019 Refill Clinic [facility]ty Monty Garcia MD Refill Request Center [facility] 701 [facility] P5 (propanthelin) [address] [phone] (Wo rk) Social History Tobacco Use Types [...]
--- OUTSIDE RECORDS SUMMARY | 2022-05-16 09:07 | XMS_ITS | Encounter Summary ---
:1955 Author Organization [facility] Address 701 [place] [address] Phone Care Team Providers Name Role Phone Provider, Outside Primary Care Provider Unavailable Encounter Details Date Type Department Care Team Description 02/05/2016 Orders Only [facility] U[facility] Clinic Monty Garcia, Neur ogenic bladder Yordy FALCON (Primary Dx) [address], [address] [facility] P5 220 [place], [place] [phone] Social History Tobacco Use Types Packs/Day Years [...] NOS documented in this encounter Care Teams Freight Car Repairer Relationship Specialty Start Date End Date Provider, Outside PCP - General 03/13/09 10/22/18 [place] [address] documented as of this encounter
--- OUTSIDE RECORDS SUMMARY | 2022-05-16 09:07 | XMS_ITS | Encounter Summary ---
:1955 Author Organization [facility] Address 1 [place] [address] Phone Care Team Providers Name Role Phone Provider, Outside Primary Care Provider Unavailable Reason for Visit Reason Onset Date Comments Other 2018 Encounter Details Date Type Department Care Team Description 2018 Telephone Clinic & Specialty Monty Garcia MD Appointment Center Urology Clini c 701 [facility] P5 Cancellation [address] [address] [phone] (Wo rk) Social History Tobacco Use Types [...] on filedocumented in this encounter Care Teams Drawing Box Tender Relationship Specialty Start Date End Date Provider, Outside PCP - General 8/21/09 4/1/19 [place] [address] documented as of this encounter
--- OUTSIDE RECORDS SUMMARY | 2022-05-16 09:07 | XMS_ITS | Encounter Summary ---
:1955 Author Organization [facility] Address 1 [place] [address] Phone Care Team Providers Name Role Phone Provider, Outside Primary Care Provider Unavailable Reason for Visit Reason Comments Bladder Problem Encounter Details Date Type Department Care Team Description 01/26/2015 Office Visit [facility] Urology Clinic Monty Garcia Neur ogenic bladder Yordy FALCON (Primary Dx) [address] [facility] P5 220 [place], [place] [address] [phone] Social History Tobacco Use Types Packs/Day Years [...] - 01/26/2015 4:13 PM CDT UROLOGY CLINIC [facility]: NEW PATIENT/CONSULT VISIT Khanh Rene : 1955 [...] NOS documented in this encounter Care Teams Revenue Analyst Relationship Specialty Start Date End Date Provider, Outside PCP - General 03/13/09 10/22/18 [place] [address] documented as of this encounter
--- OUTSIDE RECORDS SUMMARY | 2022-05-16 09:07 | XMS_ITS | Encounter Summary ---
:1955 Author Organization [facility] Address 1 [place] [address] Phone Care Team Providers Name Role Phone Provider, Outside Primary Care Provider Unavailable Reason for Visit Reason Onset Date Comments Refill Request 01/12/2018 Encounter Details Date Type Department Care Team Description 01/12/2018 Refill [facility] Center Monty Garcia MD Refill Request Urology Clinic [address] [place] [address] [address] [place], [place] [address] [phone] Social History Tobacco Use Types Packs/Day Years [...] on filedocumented in this encounter Care Teams Optical Brightener Maker Helper Relationship Specialty Start Date End Date Provider, Outside PCP - General 03/13/09 10/22/18 [place] [address] documented as of this encounter
--- OUTSIDE RECORDS SUMMARY | 2022-05-16 09:07 | XMS_ITS | Encounter Summary ---
:1955 Author Organization [facility] Address 701 [place] [address] Phone Care Team Providers Name Role Phone Provider, Outside Primary Care Provider Unavailable Reason for Visit Reason Comments Other Encounter Details Date Type Department Care Team Description 05/22/2016 Refill [facility] Monty Morales MD Other [address] [facility], [address] [address] 4 [place] [address] [phone] (Wo rk) Social History Tobacco Use Types [...] NOS documented in this encounter Care Teams Quality Assurance Supervisor Body Relationship Specialty Start Date End Date Provider, Outside PCP - General 03/13/09 10/22/18 [place] [address] documented as of this encounter
--- OUTSIDE RECORDS SUMMARY | 2022-05-16 09:07 | XMS_ITS | Encounter Summary ---
:1955 Author Organization [facility] Address [address] [place] [address] Phone Care Team Providers Name Role Phone Unavailable Primary Care Provider Unavailable Reason for Visit Reason Onset Date Comments Refill Request 04/03/2020 Encounter Details Date Type Department Care Team Description 04/03/2020 Refill [facility] Monty Garcia MD Refill Request Urology Clinic [address] [place] [address] [place] [address] [phone] Social History Tobacco Use Types Packs/Day Years [...]
--- OUTSIDE RECORDS SUMMARY | 2022-05-16 09:07 | XMS_ITS | Encounter Summary ---
:1955 Author Organization [facility] Address [address] [place] [address] Phone Care Team Providers Name Role Phone Provider, Outside Primary Care Provider Unavailable Reason for Visit Reason Onset Date Comments Refill Request 12/17/2013 Propantheline Encounter Details Date Type Department Care Team Description 12/17/2013 Refill [facility] Omar Savage MD Refill Request [facility] (Propantheline) [address] [facility], [address] [place], [place] [address] Social History Tobacco Use Types [...] filedocumented in this encounter Care Teams Corporate Representative Relationship Specialty Start Date End Date Provider, Outside PCP - General 03/13/09 10/22/18 [place] [address] documented as of this encounter
--- OUTSIDE RECORDS SUMMARY | 2022-05-16 09:07 | XMS_ITS | Encounter Summary ---
:1955 Author Organization [facility] Address 1 [place] [address] Phone Care Team Providers Name Role Phone Provider, Outside Primary Care Provider Unavailable Encounter Details Date Type Department Care Team Description 10/07/2016 Hospital Encounter [facility] Ultrasound Monty Garcia MD [address] [place] [address] .[address] [place], [place] [phone] (Wo rk) Social History Tobacco Use Types [...] NOS documented in this encounter Care Teams Bunch Maker Relationship Specialty Start Date End Date Provider, Outside PCP - General 03/13/09 10/22/18 [place] [address] documented as of this encounter
--- OUTSIDE RECORDS SUMMARY | 2022-05-16 09:07 | XMS_ITS | Encounter Summary ---
:1955 Author Organization [facility] Address [address] [place] [address] Phone Care Team Providers Name Role Phone Provider, Outside Primary Care Provider Unavailable Encounter Details Date Type Department Care Team Description 10/21/2014 Telephone [facility] [place] Omar Reyes MD [address] , [address] Research Only [place], [place] [address] Social History Tobacco Use Types [...] on filedocumented in this encounter Care Teams Recovery Operator Helper Relationship Specialty Start Date End Date Provider, Outside PCP - General 03/13/09 10/22/18 [place] [address] documented as of this encounter
--- OUTSIDE RECORDS SUMMARY | 2022-05-16 09:07 | XMS_ITS | Encounter Summary ---
:1955 Author Organization [facility] Address [address] [place] [address] Phone Care Team Providers Name Role Phone Provider, Outside Primary Care Provider Unavailable Reason for Visit Reason Onset Date Comments Medication Refill 11/11/2016 propantheline (PRO-B ANTHINE) Encounter Details Date Type Department Care Team Description 11/11/2016 Refill [facility] [place] Selena Garcia MD Medication Refill [place] 701 [facility] P5 (propantheline [address] [place], [place] (PRO-BANTHINE) ) [place], [place] [phone] (Wo rk) Social History Tobacco Use Types [...] mg oral tablet Pharmacy Name and Location: [facility] [address] [place] [phone] - [phone] - [address] [place] [address] Phone number for return call: .[phone] Did caller contact the pharmacy? yes: pharmacy [...] on filedocumented in this encounter Care Teams Special Education Associate Relationship Specialty Start Date End Date Provider, Outside PCP - General 03/13/09 10/22/18 [place] [address] documented as of this encounter
--- OUTSIDE RECORDS SUMMARY | 2022-05-16 09:07 | XMS_ITS | Encounter Summary ---
:1955 Author Organization [facility] Address 701 [place] [address] Phone Care Team Providers Name Role Phone Provider, Outside Primary Care Provider Unavailable Reason for Visit Reason Comments Follow-up NEUROGENIC BLADDER Encounter Details Date Type Department Care Team Description 09/15/2016 Office [place] [facility] [place] Monty Garcia Neur ogenic bladder Yordy FALCON (Primary Dx) [address] , [address] [place] [address] 220 [place], [place] [address] [phone] Social History Tobacco Use Types Packs/Day Years [...] Comments Blood Pressure 129/74 09/15/2016 8:09 AM EMAIL MANAGER Pulse 75 09/15/2016 8:09 AM EMAIL MANAGER Temperature 36.2 ??C (97.1 ??F) 09/15/2016 8:09 AM EMAIL MANAGER Respiratory Rate - - Oxygen Saturation - [...] fevers. Patient has had several admissions at [facility] for decubitus ulcers in the last [...] MD, 09/15/2016 9:14 AM Urology Staff Pager: [phone] L MANAGER documented in this encounter Plan of Treatment Not on filedocumented as of this encounter Visit Diagnoses Diagnosis Neurogenic bladder - Primary Neurogenic bladder, NOS documented in this encounter Care Teams Wood Ski Maker Relationship Specialty Start Date End Date Provider, Outside PCP - General 03/13/09 10/22/18 [place] [address] documented as of this encounter
--- OUTSIDE RECORDS SUMMARY | 2022-05-16 09:07 | XMS_ITS | Encounter Summary ---
:1955 Author Organization [facility] Address [address] [place] [address] Phone Care Team Providers Name Role Phone Provider, Outside Primary Care Provider Unavailable Reason for Visit Reason Onset Date Comments Refill Request 12/27/2017 propantheline Medication Refill 01/08/2018 propantheline Encounter Details Date Type Department Care Team Description 12/27/2017 Refill Clinic & Specialty Monty Garcia MD Refill Request Center Urology Clini c 701 [facility] P5 (propantheline); [address] Medication Refill [place], [place] [phone] (propantheline) [phone] (Wo rk) Social History Tobacco Use Types [...] generic message for pt to call the [facility] and ask for a RN. [...] chart- no MITCHELL on file. Wale Russell mortgage loan underwriter does have message to pass along, but no MITCHELL in the chart and cannot share info due to HIPPA. Charlene Russell said she understood. She requested we call Khanh and let him know the response. Mixed Signal Design Engineer called Khanh and no answer. Left message [...] [facility] UROLOGY [facility] Special documented in this encounter Plan of Treatment Not on filedocumented as of this encounter Visit Diagnoses Not on filedocumented in this encounter Care Teams Psychiatric Specialist Relationship Specialty Start Date End Date Provider, Outside PCP - General 03/13/09 10/22/18 [place] [address] documented as of this encounter
--- OUTSIDE RECORDS SUMMARY | 2022-05-16 09:07 | XMS_ITS | Encounter Summary ---
:1955 Author Organization [facility] Address [address] [place] [address] Phone Care Team Providers Name Role Phone Provider, Outside Primary Care Provider Unavailable Reason for Visit Reason Onset Date Comments Other 02/05/2016 Encounter Details Date Type Department Care Team Description 02/05/2016 Telephone [facility] U[facility] Clinic Selena Garcia MD plan of care [place] [address] [place] [address] [address] [facility], [address] [place] [address] [place], [place] [address] [phone] Social History Tobacco Use Types Packs/Day Years [...] on filedocumented in this encounter Care Teams Theatrical Dresser Relationship Specialty Start Date End Date Provider, Outside PCP - General 03/13/09 10/22/18 [place] [address] documented as of this encounter
--- OUTSIDE RECORDS SUMMARY | 2022-05-16 09:07 | XMS_ITS | Encounter Summary ---
:1955 Author Organization [facility] Address [address] [place] [address] Phone Care Team Providers Name Role Phone Provider, Outside Primary Care Provider Unavailable Reason for Visit Reason Comments Other Encounter Details Date Type Department Care Team Description 02/05/2016 Refill [facility] [place] Monty Morales MD Other [address] [facility], [address] [address] 4 [place] [address] [phone] (Wo rk) Social History Tobacco Use Types [...] on filedocumented in this encounter Care Teams Fairmont Gold Attendant Relationship Specialty Start Date End Date Provider, Outside PCP - General 03/13/09 10/22/18 [place] [address] documented as of this encounter
--- OUTSIDE RECORDS SUMMARY | 2022-05-16 09:07 | XMS_ITS | Encounter Summary ---
:1955 Author Organization [facility] Address [address] [place] [address] Phone Care Team Providers Name Role Phone Provider, Outside Primary Care Provider Unavailable Encounter Details Date Type Department Care Team Description 01/02/2018 Nurse Triage [facility] Specialty Center Farida Dueñas, medical records supervisor Clinic [address] [address] [place], [place] [address] Social History Tobacco Use Types [...] on filedocumented in this encounter Care Teams Quality Tech Relationship Specialty Start Date End Date Provider, Outside PCP - General 03/13/09 10/22/18 [place] [address] documented as of this encounter
--- OUTSIDE RECORDS SUMMARY | 2022-05-16 09:07 | XMS_ITS | Encounter Summary ---
:1955 Author Organization [facility] Address 1 [place] [address] Phone Care Team Providers Name Role Phone Unavailable Primary Care Provider Unavailable Encounter Details Date Type Department Care Team Description 08/20/2020 Immunization [facility] Viral Clinic Jonathan Chu MD [address] [address] COVID-19; [address] Nurse, [facility] Vaccine 701 [place] [address] Need for vaccination [place], [place] [address] Social History Tobacco Use Types [...] with No / Unsure 08/20/2020 3:15 PM FOUNDRY MELT SUPERVISOR someone who was confirmed or suspected to have Coronavirus / COVID-19? documented as of this encounter Plan of Treatment Not on filedocumented as of this encounter Visit Diagnoses Diagnosis COVID-19 Need for vaccination Need for prophylactic vaccination and in oculation against unspecified single disease documented in this encounter
--- OUTSIDE RECORDS SUMMARY | 2022-05-16 09:07 | XMS_ITS | Encounter Summary ---
:1955 Author Organization [facility] Address 701 [place] [address] Phone Care Team Providers Name Role Phone Unavailable Primary Care Provider Unavailable Encounter Details Date Type Department Care Team Description 09/14/2020 Immunization [facility] Viral Clinic Jonathan Chu MD [address] [phone] Need for vaccination [address] Nurse, [facility] Vaccine 701 [place] [address] (Primary Dx) [place], [place] [address] Social History Tobacco Use Types [...] with No / Unsure 08/20/2020 3:15 PM SETTER OFF someone who was confirmed or suspected to have Coronavirus / COVID-19? documented as of this encounter Plan of Treatment Not on filedocumented as of this encounter Visit Diagnoses Diagnosis Need for vaccination - Primary Need for prophylactic vaccination and in oculation against unspecified single disease documented in this encounter
--- OUTSIDE RECORDS SUMMARY | 2022-05-16 09:07 | XMS_ITS | Encounter Summary ---
:1955 Author Organization [facility] Address 701 [place] [address] Phone Care Team Providers Name Role Phone Provider, Outside Primary Care Provider Unavailable Reason for Visit Reason Onset Date Comments Refill Request 10/06/2016 re: Macrodantin Encounter Details Date Type Department Care Team Description 10/06/2016 Telephone [facility] [place] Clinic Divya Avendano Refi ll Request (re: Yordy ASH Macrodantin) [address] 701 [place], [place] [address] [place], [place] [phone] [address] Social History Tobacco Use Types Packs/Day Years [...] on filedocumented in this encounter Care Teams Customer Marketing Intern Relationship Specialty Start Date End Date Provider, Outside PCP - General 03/13/09 10/22/18 [place] [address] documented as of this encounter
--- OUTSIDE RECORDS SUMMARY | 2022-05-16 09:07 | XMS_ITS | Encounter Summary ---
:1955 Author Organization [facility] Address [address] [place] [address] Phone Care Team Providers Name Role Phone [...] with No / Unsure 08/20/2020 3:15 PM BRIDGE OPERATOR someone who was confirmed or suspected to have Coronavirus / COVID-19? documented as of this encounter Plan of Treatment Not on filedocumented as of this encounter Visit Diagnoses Not on filedocumented in this encounter
--- OUTSIDE RECORDS SUMMARY | 2022-05-16 09:07 | XMS_ITS | Encounter Summary ---
:1955 Author Organization [facility] Address [address] [place] [address] Phone Care Team Providers Name Role Phone Provider, Outside Primary Care Provider Unavailable Reason for Visit Reason Onset Date Comments Refill Request 07/05/2016 Encounter Details Date Type Department Care Team Description 07/05/2016 Refill [facility] Urology Clinic Divya Caraballo RN Refill Request [address] [facility], [address] 701 [place], [place] [address] 4 [place] [address] Social History Tobacco Use Types Packs/Day Years [...] NOS documented in this encounter Care Teams Refueler Relationship Specialty Start Date End Date Provider, Outside PCP - General 03/13/09 10/22/18 [place] [address] documented as of this encounter
--- OUTSIDE RECORDS SUMMARY | 2022-05-16 09:07 | XMS_ITS | Encounter Summary ---
:1955 Author Organization [facility] Address 1 [place] [address] Phone Care Team Providers Name Role Phone Unavailable Primary Care Provider Unavailable Reason for Visit Reason Comments Other Encounter Details Date Type Department Care Team Description 03/27/2020 Refill [facility]ty Center Monty Garcia MD Other Urology Clinic [address] [place] [address] [place] [phone] Social History Tobacco Use Types Packs/Day Years [...]
--- OUTSIDE RECORDS SUMMARY | 2022-05-16 09:07 | XMS_ITS | Encounter Summary ---
:1955 Author Organization [facility] Address 1 [place] [address] Phone Care Team Providers Name Role Phone Provider, Outside Primary Care Provider Unavailable Reason for Visit Reason Onset Date Comments Refill Request 09/05/2016 Encounter Details Date Type Department Care Team Description 09/05/2016 Refill [facility] [place] Divya Caraballo RN Refill Request [address] [facility], [address] 701 [place], [place] [address] [place] [address] Social History Tobacco Use Types Packs/Day Years [...] documented in this encounter Care Teams Manager Car Relationship Specialty Start Date End Date Provider, Outside PCP - General 03/13/09 10/22/18 [place] [address] documented as of this encounter
--- OUTSIDE RECORDS SUMMARY | 2022-05-16 09:07 | XMS_ITS | Encounter Summary ---
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 documented as of this encounter Plan of Treatment Not on filedocumented as of this encounter Visit Diagnoses Diagnosis COVID-19 documented in this encounter
--- OUTSIDE RECORDS SUMMARY | 2022-05-16 09:08 | XMS_ITS | Encounter Summary ---
:1955 Author Organization [facility] Address [address] [place] [address] Phone Care Team Providers Name Role Phone Provider, Outside Primary Care Provider Unavailable Encounter Details Date Type Department Care Team Description 11/15/2010 Office Visit [facility] [place] Med/Rehab Sameera Frances D ecubitus ulcer Clinic (Primary Dx) [address] [facility] P5.200 Mail Code P5 [place], [place] [address] [place], [place] [phone] (Wo rk) Social History Tobacco Use Types [...] Frances MD - 11/16/2010 10:42 [place] [address] MEDREC#: [id number] PATIENT: MICHEAL RENE : 1955 DATE: 11/15/2010 [...] Physical Medicine and Rehabilitation Service Received in Technical Writer And Editor: 11/15/2010 12:55 M: 11/16/2010 02:37 bj CLR/bj Voice ID: [id number] Document ID: [id number] cc:[place] [address] Sameera Frances MD - 11/15/2010 12:44 PM CDT See dictation Sameera Frances MD, 11/15/2010 12:44 PM documented in this encounter Plan of Treatment Not on filedocumented as of this encounter Visit Diagnoses Diagnosis Decubitus ulcer - Primary Pressure ulcer, unspecified site documented in this encounter Care Teams Leadership Program Internship Relationship Specialty Start Date End Date Provider, Outside PCP - General 03/13/09 10/22/18 [place] [address] documented as of this encounter
--- OUTSIDE RECORDS SUMMARY | 2022-05-16 09:08 | XMS_ITS | Encounter Summary ---
:1955 Author Organization [facility] Address [address] [facility] [place] [place] [address] Phone Care Team Providers Name Role Phone Provider, Outside Primary Care Provider Unavailable Reason for Visit Reason Comments Follow-up Encounter Details Date Type Department Care Team Description 09/24/2010 Office [place] [facility] DaysiBubba Veronica us ulcer, stage Clinic MD Valery IV () (Primary Dx) [address] [facility] [address] [facility] [address] Mail [address] [place], [place] [address] [place], [place] [phone] Social History Tobacco Use Types Packs/Day Years Used Date Smoking Tobacco: Never Smokeless Tobacco: Never Alcohol Use Standard Drinks/Week Comments Yes 3.3 (1 standard drink = 0.6 oz pure alco hol) once in while Sex Assigned at Date Recorded Not on file documented as of this encounter Last Filed Vital Signs Vital Sign Reading Time Taken Comments Blood Pressure 107/73 09/24/2010 10:33 AM DRUG DISCOVERY INFORMATICS SPECIALIST Pulse 87 09/24/2010 10:33 AM DRUG DISCOVERY INFORMATICS SPECIALIST Temperature 36.8 ??C (98.2 ??F) 09/24/2010 10:33 AM DRUG DISCOVERY INFORMATICS SPECIALIST Respiratory Rate - - Oxygen Saturation - [...] of infection, please contact the Surgery clinic [phone]: redness, warmth, swelling, drainage, pain, and/or fever over 100 degrees. DISCOVERY INFORMATICS SPECIALIST documented in this encounter Progress Notes Mari Odell RN - 09/24/2010 2:45 PM CST Wound care D: Here for wound care. Location: coccyx A: Exam per provider. Wound cleansed with: technicare, H2O and rinsed. Dressing applied: and wet to dry with 1/2 packing and 2x2's with Island dressing. R: Patient tolerated procedure well. P: As ordered by provider. DISCOVERY INFORMATICS SPECIALIST Syl Yanes MD - 09/24/2010 11:21 AM [...] has received the special cushion from the [facility] which is supposed to relieve pressure from that area. He does have another apptset up with Soumya at the [facility] to complete the mapping to ensure no [...] documented. Bubba Tavarez MD, 09/25/2010 9:26 AM DISCOVERY INFORMATICS SPECIALIST documented in this encounter Plan of Treatment Not on filedocumented as of this encounter Visit Diagnoses Diagnosis Decubitus ulcer, stage IV () - Primary Pressure ulcer, unspecified site documented in this encounter Care Teams Animal Care Worker Relationship Specialty Start Date End Date Provider, Outside PCP - General 03/13/09 10/22/18 [place] [address] documented as of this encounter
--- OUTSIDE RECORDS SUMMARY | 2022-05-16 09:08 | XMS_ITS | Encounter Summary ---
:1955 Author Organization [facility][Note 3] Address [address] [facility] [place] [address] Phone Care Team Providers Name Role Phone Provider, Outside Primary Care Provider Unavailable Reason for Visit Reason Comments Neurologic Problem pmr Encounter Details Date Type Department Care Team Description 12/27/2010 Office [place] [facility] [place]Rehab Abhinav Chavez MD NEED ADDRESS Ulcer () (Primary Clinic Sameera Frances MD [address] [place] [address] Dx) [address] [place], [place] [address] Social History Tobacco Use Types [...] site documented in this encounter Care Teams Refractory Bricklayer Relationship Specialty Start Date End Date Provider, Outside PCP - General 03/13/09 10/22/18 [place] [address] documented as of this encounter
--- OUTSIDE RECORDS SUMMARY | 2022-05-16 09:08 | XMS_ITS | Encounter Summary ---
:1955 Author Organization [facility] Address [address] [place] [address] Phone Care Team Providers Name Role Phone Provider, Outside Primary Care Provider Unavailable Reason for Visit Reason Onset Date Comments Supplies 09/20/2010 Encounter Details Date Type Department Care Team Description 09/20/2010 Telephone [facility] [place] [facility] Alka Jade RN Supplies [address] [place] [address] [place], [place] [address] Social History Tobacco Use Types [...] 09/20/2010 10:02 AM CST Verified that [facility] received fax for supplies on 09/17/10. MOTIVE SERVICE CONSULTANT Telephone Encounter - Alka Jade RN - [...] 1955 (home) Insurance: PCP: Outside Provider Comment: [facility] [phone] Prescribed supplies Expects Return Call at: home see above MOTIVE SERVICE CONSULTANT documented in this encounter Plan of Treatment Not on filedocumented as of this encounter Visit Diagnoses Not on filedocumented in this encounter Care Teams Pattern Room Attendant Relationship Specialty Start Date End Date Provider, Outside PCP - General 03/13/09 10/22/18 [place] [address] documented as of this encounter
--- OUTSIDE RECORDS SUMMARY | 2022-05-16 09:08 | XMS_ITS | Encounter Summary ---
:1955 Author Organization [facility] Address [address] [place], [place] [address] [place] [address] Phone Care Team Providers Name Role Phone Provider, Outside Primary Care Provider Unavailable Reason for Visit Reason Comments Follow-up Encounter Details Date Type Department Care Team Description 06/06/2013 Office Visit [facility] U[facility] Clinic Omar Savage, Neurog enic bladder Yordy FALCON (Primary Dx) [address], [address] [place], [place] [address] Social History Tobacco Use Types [...] Comments Blood Pressure 88/58 06/06/2013 11:33 AM HIDE PASTER Pulse 79 06/06/2013 11:33 AM HIDE PASTER Temperature 36.8 ??C (98.2 ??F) 06/06/2013 11:33 AM HIDE PASTER Respiratory Rate - - Oxygen Saturation - - Inhaled Oxygen Concentration - - Weight - - Height - - Body Mass Index - - documented in this encounter Patient Instructions Patient InstructionsOmar Savage MD - 06/06/2013 11:42 AM CST Patient may [facility] with result forwarded to us PASTER documented in this encounter Progress Notes Omar Savage MD - 06/08/2013 8:17 AM CST [facility] [address] [place] [address] (fax) [facility]#: [id number] PATIENT: MICHEAL FLETCHER : 1955 DATE: 06/06/2013 [...] Staff Physician Surgery Service Received in Retail Loss Prevention Officer: 06/08/2013 05:34 M: 06/08/2013 08:17 filiberto STEWART/filiberto Voice ID: [id number] Document ID: [id number] PASTER Omar Savage MD - 06/08/2013 5:32 AM CST This office note has been dictated. PASTER documented in this encounter Plan of Treatment Not on filedocumented as of this encounter Visit Diagnoses Diagnosis Neurogenic bladder - Primary Neurogenic bladder, NOS documented in this encounter Care Teams Drop Forger Relationship Specialty Start Date End Date Provider, Outside PCP - General 03/13/09 10/22/18 [place] [address] documented as of this encounter
--- OUTSIDE RECORDS SUMMARY | 2022-05-16 09:08 | XMS_ITS | Encounter Summary ---
:1955 Author Organization [facility] Address [address] [place] [address] Phone Care Team Providers Name Role Phone Provider, Outside Primary Care Provider Unavailable Reason for Referral Consult/Test/Treat (Routine) - Closed Specialty Diagnoses / Procedures Referred By Contact Refer red To Contact Physical Therapy Diagnoses Decubitus ulcer Sameera Frances MD [address] [place], [place] [address] Referral ID Status Reason Start Date Expiration Date Visits Requ ested Visits Authorized [id number] Closed 01/17/2011 01/18/2012 1 1 Reason for Visit Reason Comments Neurologic Problem Encounter Details Date Type Department Care Team Description 01/17/2011 Office Visit [facility] Phys Med/Rehab Sameera Frances D ecubitus ulcer Clinic (Primary Dx) [address] Mail [address] [place], [place] [address] [place], [place] [phone] (Wo rk) Social History Tobacco Use Types [...] site documented in this encounter Care Teams Predatory Animal Exterminator Relationship Specialty Start Date End Date Provider, Outside PCP - General 03/13/09 10/22/18 [place] [address] documented as of this encounter
--- OUTSIDE RECORDS SUMMARY | 2022-05-16 09:08 | XMS_ITS | Encounter Summary ---
:1955 Author Organization [facility] Address [address] [place] [address] Phone Care Team Providers Name Role Phone Provider, Outside Primary Care Provider Unavailable Reason for Visit Reason Onset Date Comments Refill Request 09/05/2013 macrodantin Encounter Details Date Type Department Care Team Description 09/05/[address] [facility] [place] [facility] Omar Savage MD Refill Request [facility] Only (macrodantin) [address], [address] [place], [place] [address] Social History Tobacco Use Types [...] Savage, med send to to co sign. TRONIC GAMING DEVICE SUPERVISOR documented in this encounter Plan of Treatment Not on filedocumented as of this encounter Visit Diagnoses Diagnosis Neurogenic bladder - Primary Neurogenic bladder, NOS documented in this encounter Care Teams Envelope Press Operator Relationship Specialty Start Date End Date Provider, Outside PCP - General 03/13/09 10/22/18 [place] [address] documented as of this encounter
--- OUTSIDE RECORDS SUMMARY | 2022-05-16 09:08 | XMS_ITS | Encounter Summary ---
:1955 Author Organization [facility] Address [address] [place] [address] Phone Care Team Providers Name Role Phone Provider, Outside Primary Care Provider Unavailable Reason for Visit Reason Onset Date Comments Call Back 09/30/2010 Encounter Details Date Type Department Care Team Description 09/30/2010 Nurse Triage [facility] Contact Center Quang Toscano, Call Back [facility] [id number] [place] [address] Social History Tobacco Use Types Packs/Day [...] requests that she call back again at [phone]. R: routing to [facility]ISOR BROADLOOM Telephone Encounter - Quang Toscano RN - 09/30/2010 4:24 PM SUPERVISOR BROADLOOM Message copied by QUANG TOSCANO on MonSep 30, 2010 4:24 PM ------ Message from: SELMA SCHMITT Created: MonSep 30, 2010 4:20 PM >> SELMA SCHMITT 09/30/2010 04:20 PM Patient: Khanh Rene : 1955 Caller would like to speak to a nurse regarding a medical condition. Symptoms: PT IS RETURNING CALL BACK FRON DR CHRISTIANO TINAJERO IN NEUROMUSCULAR Duration: NA Primary Care Physician: CHIRSTIANO TINAJERO Treating Physician: CHRISTIANO TINAJERO Phone number for return call: [phone] [facility] BROADLOOM documented in this encounter Plan of Treatment Not on filedocumented as of this encounter Visit Diagnoses Not on filedocumented in this encounter Care Teams Powder Line Repairer Relationship Specialty Start Date End Date Provider, Outside PCP - General 03/13/09 10/22/18 [place] [address] documented as of this encounter
--- OUTSIDE RECORDS SUMMARY | 2022-05-16 09:08 | XMS_ITS | Encounter Summary ---
:1955 Author Organization [facility] Address [address] [place] [address] Phone Care Team Providers Name Role Phone Provider, Outside Primary Care Provider Unavailable Reason for Visit Reason Comments Other Encounter Details Date Type Department Care Team Description 02/20/2013 Telephone [facility] Omar Reyes MD [address] [facility], [address] Research Only [place], [place] [address] Social History Tobacco Use Types [...] Hussein Giron to refill Pro-Banthine. VORB Notified [facility] pharmacy at [phone]. Telephone Encounter - Danna Alvarez RN - [...] verbal refill request for Propantheline. Please call [phone] Expects Return Call at: ------ documented in this encounter Plan of Treatment Not on filedocumented as of this encounter Visit Diagnoses Not on filedocumented in this encounter Care Teams Security Shift Manager Relationship Specialty Start Date End Date Provider, Outside PCP - General 03/13/09 10/22/18 [place] [address] documented as of this encounter
--- OUTSIDE RECORDS SUMMARY | 2022-05-16 09:08 | XMS_ITS | Encounter Summary ---
:1955 Author Organization [facility] Address [address] [place] [address] Phone Care Team Providers Name Role Phone Provider, Outside Primary Care Provider Unavailable Reason for Visit Reason Onset Date Comments Supplies 09/17/2010 Encounter Details Date Type Department Care Team Description 09/17/2010 Telephone [facility] [place] Clinic Alka Jade RN Supplies [address] [place] [address] [place], [place] [address] Social History Tobacco Use Types [...] for supply list to be faxed to [facility] Shwetha Martin @ [phone]. Pt was seen today by Dr Tavarez and wet to dry dressing was ordered. Pt has a f/u appt scheduled on 09/24/[address] Tavarez. AL DAMAGE CONTROL AGENT Telephone Encounter - Alka Jade RN - [...] Provider Comment: Expects Return Call at: pt [phone] AL DAMAGE CONTROL AGENT documented in this encounter Plan of Treatment Not on filedocumented as of this encounter Visit Diagnoses Not on filedocumented in this encounter Care Teams Cover Cutter Machine Relationship Specialty Start Date End Date Provider, Outside PCP - General 03/13/09 10/22/18 [place] [address] documented as of this encounter
--- OUTSIDE RECORDS SUMMARY | 2022-05-16 09:08 | XMS_ITS | Encounter Summary ---
:1955 Author Organization [facility] Address [address] [place], [place] [address] [address] Phone Care Team Providers Name Role Phone Provider, Outside Primary Care Provider Unavailable Encounter Details Date Type Department Care Team Description 10/01/2010 Orders Only [facility] Omar Savage, Neurogenic bladder [address], [address] (Primary Dx) [place], [place] [address] [address] Only [phone] Social History Tobacco Use Types Packs/Day Years [...] NOS documented in this encounter Care Teams Diesel Power Mechanic Relationship Specialty Start Date End Date Provider, Outside PCP - General 03/13/09 10/22/18 [place] [address] documented as of this encounter
--- OUTSIDE RECORDS SUMMARY | 2022-05-16 09:08 | XMS_ITS | Encounter Summary ---
:1955 Author Organization [facility] Address [address] [facility] [place] [address] Phone Care Team Providers Name Role Phone Provider, Outside Primary Care Provider Unavailable Reason for Visit Reason Onset Date Comments Question 09/22/2010 Encounter Details Date Type Department Care Team Description 09/22/2010 Telephone [facility] [place] [facility]ini c Blanca Marti, NILSA Question [address] [facility] [address] [address] [place], [place] [address] Social History Tobacco Use Types [...] discuss concerns with Dr. Loya. He agreed. RCEMENT OFFICER Telephone Encounter - Blanca Marti RN - 09/22/2010 10:35 AM CST Pt calling in with frustrations Saw dr. loya who wants pt to see dr. bernstein again before coming back Dr. bernstein wants pt to be seen in [facility] Paperwork faxed to them and pt will call and schedule Pt having questions regarding his care of his wound after seeing dr. loya- felt his appt was so brief with dr. loya and is unsatisfied and would like to speak with nsg staff in surgery clinic Routed to surg clinic RNs Blanca Marti RN, 09/22/2010 10:35 AM RCEMENT OFFICER documented in this encounter Plan of Treatment Not on filedocumented as of this encounter Visit Diagnoses Not on filedocumented in this encounter Care Teams Floor Clerk Relationship Specialty Start Date End Date Provider, Outside PCP - General 03/13/09 10/22/18 [place] [address] documented as of this encounter
--- OUTSIDE RECORDS SUMMARY | 2022-05-16 09:08 | XMS_ITS | Encounter Summary ---
:1955 Author Organization [facility] Address [address] [place] [address] Phone Care Team Providers Name Role Phone Provider, Outside Primary Care Provider Unavailable Reason for Visit Reason Comments Follow-up Encounter Details Date Type Department Care Team Description 09/03/2012 Office Visit [facility] Urology Clinic Pooja Krueger MD [address] [facility] [address] [place], [place] [id number] Neurogenic bladder [place] Omar Savage MD Research Only (Primary Dx) [address], [address] [place], [place] [address] Social History Tobacco Use Types [...] Comments Blood Pressure 112/64 09/03/2012 1:52 PM INSULATION BLANKET MAKER Pulse 68 09/03/2012 1:52 PM INSULATION BLANKET MAKER Temperature - - Respiratory Rate - - Oxygen Saturation - - Inhaled Oxygen Concentration - - Weight - - Height - - Body Mass Index - - documented in this encounter Progress Notes Omar Savage MD - 09/04/2012 8:32 PM CST [facility] [address] [facility], [address] [place] [address] (fax) [facility]#: [id number] PATIENT: MICHEAL RENE : 1955 DATE: 09/03/2012 [...] MD Staff Physician Surgery Service Received in Vocational Teacher: 09/04/2012 12:20 M: 09/04/2012 20:32 [facility]/ Voice ID: [id number] Document ID: [id number] LATION BLANKET MAKER Omar Savage MD - 09/04/2012 12:19 PM CST This office note has been dictated. LATION BLANKET MAKER documented in this encounter Plan of Treatment Not on filedocumented as of this encounter Procedures Procedure Name Priority Date/Time Associated Diagnosis Comme nts URINE CULTURE Routine 09/03/2012 2:22 PM Neurogenic bladder Re sults for this INSULATION BLANKET MAKER procedure are i n the results section. URINALYSIS,TOTAL Routine 09/03/2012 2:22 PM Neurogenic bladder Results for this INSULATION BLANKET MAKER procedure are i n the results section. documented in this encounter Results URINE CULTURE (09/03/2012 2:22 PM INSULATION BLANKET MAKER) [facility] Method Time Signature Urine Cult [facility] ? PROCEDURE: MB Urine Culture ?SOURCE: Urine Midstream ?COLLECTED: 09/03/2012 14:22 ? BODY SITE: ?FREE TEXT SOURCE: ?STARTED: 09/03/2012 15:35 ? FINAL REPORT Final Report Verified:09/05/2012 13:06 50,000 - 100,000 organisms/ml Mixed gram positive arthur. No further work-up. Specimen Anatomical Collection Method Collection Time Receive d Time (Source) Location / / Volume Laterality Urine Midstream. 09/03/2012 2:22 PM 09/03 3:34 (Urine) INSULATION BLANKET MAKER PM INSULATION BLANKET MAKER Omar Savage MD LAB MICROBIOLOGY Performing Organization Address City/State/ZIP Code Phon e Number [facility] [address] (ABNORMAL) URINALYSIS, TOTAL (09/03/2012 2:22 PM INSULATION BLANKET MAKER) athologist Signature Color YELLOW YELLOW [facility] Appearance CLEAR CLEAR [facility] Urine Glucose NEGATIVE NEGATIVE [facility] Bili UA NEGATIVE NEGATIVE [facility] Comment: Confirmatory test not available . Ketones NEGATIVE NEGATIVE [facility] Specific [place] 1.016 1.003 - 1.030 [facility] Blood Ur NEGATIVE Neg-Trace [facility] PH Urine 6.5 5.0 - 7.0 [facility] Protein Ur NEGATIVE Neg-Trace [facility] Urobilinogen 1.0 0.2 - 1.0 EU/dL [facility] Nitrite Ur NEGATIVE NEGATIVE [facility] Leuk Est SMALL (A) Neg-Trace [facility] WBC Ur 6-20 (A) 0 - 5 perHPF [facility] RBC Ur 0-5 0 - 5 perHPF [facility] SQ EPITH 2+ 1+ [facility] Specimen Anatomical Collection Method Collection Time Receive d Time (Source) Location / / Volume Laterality Urine 09/03/2012 2:22 PM 3 2:51 INSULATION BLANKET MAKER PM INSULATION BLANKET MAKER Omar Savage MD LABORATORY Performing Organization Address City/State/ZIP Code Phon e Number [facility] [place] [address] documented in this encounter Visit Diagnoses Diagnosis Neurogenic bladder - Primary Neurogenic bladder, NOS documented in this encounter Care Teams Auto Accessories Installer Relationship Specialty Start Date End Date Provider, Outside PCP - General 03/13/09 10/22/18 [place] [address] documented as of this encounter
--- OUTSIDE RECORDS SUMMARY | 2022-05-16 09:08 | XMS_ITS | Encounter Summary ---
:1955 Author Organization [facility] Address [address] [place] [address] Phone Care Team Providers Name Role Phone Provider, Outside Primary Care Provider Unavailable Reason for Visit Reason Comments Neurologic Problem pmr Encounter Details Date Type Department Care Team Description 11/01/[address] 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
--- OUTSIDE RECORDS SUMMARY | 2022-05-16 09:08 | XMS_ITS | Encounter Summary ---
:1955 Author Organization [facility] Address [address] [facility] [place] [address] Phone Care Team Providers Name Role Phone Provider, Outside Primary Care Provider Unavailable Reason for Visit Reason Comments Follow-up Encounter Details Date Type Department Care Team Description 02/14/2011 Office Visit [facility] Phys Med/Rehab Sameera Frances D ecubitus ulcer Clinic (Primary Dx) [address] [facility] [address] [place], [place] [address] [place], [place] [phone] (Wo rk) Social History Tobacco Use Types [...] site documented in this encounter Care Teams Nematologist Relationship Specialty Start Date End Date Provider, Outside PCP - General 03/13/09 10/22/18 [place] [address] documented as of this encounter
--- OUTSIDE RECORDS SUMMARY | 2022-05-16 09:08 | XMS_ITS | Encounter Summary ---
:1955 Author Organization [facility] Address [address] [address] Phone Care Team Providers Name Role Phone Provider, Outside Primary Care Provider Unavailable Encounter Details Date Type Department Care Team Description 09/17/2010 Hospital Encounter [facility] Arnold Vora [address] Kay Méndez MD [place], [place] [address] 709 [facility] [phone] [place], [place] [id number] Social History Tobacco Use Types Packs/Day Years [...] () Results for this LAT HIP AM LEAD JAVA SOFTWARE ENGINEER procedure are i n the results section. documented in this encounter Results (ABNORMAL) XR PELVIS WITH BOTH LAT HIP (09/17/2010 10:28 AM LEAD JAVA SOFTWARE ENGINEER) Anatomical Region Laterality Modality Pelvis Computed Radiography Specimen (Source) Anatomical Collection Method Collection Time Re ceived Time Location / / Volume Laterality 09/17/2010 10:28 AM LEAD JAVA SOFTWARE ENGINEER Impressions 09/17/2010 10:35 AM LEAD JAVA SOFTWARE ENGINEER Impression: Severe osteoarthritis involving both hips with postsurgical fixation of a left hip fracture. There is no cortical irregularity to suggest osteomyelitis. This however lucency surrounding a fe moral IM nail. Three-phase bone scan may be beneficial to assess for infection surrounding the nail if clinically indicated. Reading Radiologist: Khanh Brunson Narrative 09/17/2010 10:35 AM LEAD JAVA SOFTWARE ENGINEER History: Rule out osteo. Comparison: None. Findings [...] unspecified documented in this encounter Care Teams Chief Nursing Officer Relationship Specialty Start Date End Date Provider, Outside PCP - General 03/13/09 10/22/18 [place] [address] documented as of this encounter
--- OUTSIDE RECORDS SUMMARY | 2022-05-16 09:08 | XMS_ITS | Encounter Summary ---
:1955 Author Organization [facility] Address [address] [place] [address] Phone Care Team Providers Name Role Phone Provider, Outside Primary Care Provider Unavailable Encounter Details Date Type Department Care Team Description 09/07/2012 Letters(Tab) [facility] U[facility] Omar Reyes MD [address] [place] [address], [address] Research Only [place], [place] [address] Social History Tobacco Use Types Packs/Day Years Used Date Smoking Tobacco: Former Cigarettes Cigars Smokeless Tobacco: Never Alcohol Use Standard Drinks/Week Comments Yes 3.3 (1 standard drink = 0.6 oz pure alco hol) once in while Sex Assigned at Date Recorded Not on file documented as of this encounter Progress Notes Omar Savage MD - 09/07/2012 7:45 AM CST [facility] [address] [place], [place] [address] September 07, 2012 TO: Micheal Fletcher [address] [address] [address] RE:MICHEAL FLETCHER MR#:[id number] :1955 Dear Mr. Fletcher: From your recent Urology Clinic visit, your urine culture grew only mixed gram-positive organisms, which are not considered an infection. Please feel free to contact me for questions. Best wishes. Looking forward to seeing you at your next scheduled visit. Sincerely, Omar Savage MD Staff Physician Surgery Service Received in Surgical Garment Assembly Supervisor: 09/07/2012 07:32 M: 09/07/2012 07:45 cn CS/cn Voice ID: [id number] Document ID: [id number] cc:MICHEAL FLETCHER [address] [place] [address] R LAYER documented in this encounter Plan of Treatment Not on filedocumented as of this encounter Visit Diagnoses Not on filedocumented in this encounter Care Teams Entry Tech Relationship Specialty Start Date End Date Provider, Outside PCP - General 03/13/09 10/22/18 [place] [address] documented as of this encounter
--- OUTSIDE RECORDS SUMMARY | 2022-05-16 09:08 | XMS_ITS | Encounter Summary ---
:1955 Author Organization [facility] Address [address] [place] [address] Phone Care Team Providers Name Role Phone Provider, Outside Primary Care Provider Unavailable Reason for Visit Reason Comments Other Encounter Details Date Type Department Care Team Description 01/17/2012 Telephone [facility] Omar Reyes MD [address] [facility], [address] Research Only [place], [place] [address] Social History Tobacco Use [...] Outside Provider Comment: Expects Return Call at: [phone] documented in this encounter Plan of Treatment Not on filedocumented as of this encounter Visit Diagnoses Not on filedocumented in this encounter Care Teams Car Shakeout Operator Relationship Specialty Start Date End Date Provider, Outside PCP - General 03/13/09 10/22/18 [place] [address] documented as of this encounter
--- OUTSIDE RECORDS SUMMARY | 2022-05-16 09:08 | XMS_ITS | Encounter Summary ---
:1955 Author Organization [facility] Address [address] [facility] [place] [address] Phone Care Team Providers Name Role Phone Provider, Outside Primary Care Provider Unavailable Reason for Visit Reason Onset Date Comments Call Back 11/08/2010 Encounter Details Date Type Department Care Team Description 11/08/2010 Telephone [facility] Neurology Clini c Vickie Odell RN Call Back [address] [facility] [address] [address] [place], [place] [address] Social History Tobacco Use Types [...] that was to call [employer] [phone] to order supplieslast after last visit 11-01-10. [...] Outside Provider Comment:na Expects Return Call at: [phone] documented in this encounter Plan of Treatment Not on filedocumented as of this encounter Visit Diagnoses Not on filedocumented in this encounter Care Teams Security Monitor Relationship Specialty Start Date End Date Provider, Outside PCP - General 03/13/09 10/22/18 [place] [address] documented as of this encounter
--- OUTSIDE RECORDS SUMMARY | 2022-05-16 09:08 | XMS_ITS | Encounter Summary ---
:1955 Author Organization [facility] Address [address] [place] [address] Phone Care Team Providers Name Role Phone Provider, Outside Primary Care Provider Unavailable Encounter Details Date Type Department Care Team Description 10/19/2010 Refill [facility] Urology Omar Savage MD [address] [facility], [address] Research Only [place], [place] [address] Social History Tobacco Use Types [...] Insurance: PCP: Outside Provider Comment: Please call [facility] pharmacy regarding getting an alternative for his medication Propantheline. Please call Ange Valdivia Return Call at: [phone] documented in this encounter Plan of Treatment Not on filedocumented as of this encounter Visit Diagnoses Diagnosis Neurogenic bladder - Primary Neurogenic bladder, NOS documented in this encounter Care Teams Provider Relations Advocate Relationship Specialty Start Date End Date Provider, Outside PCP - General 03/13/09 10/22/18 [place] [address] documented as of this encounter
--- OUTSIDE RECORDS SUMMARY | 2022-05-16 09:09 | XMS_ITS | Encounter Summary ---
:1955 Author Organization [facility] Address [address] [place], [place] [address] [place] [address] Phone Care Team Providers Name Role Phone Provider, Outside Primary Care Provider Unavailable Encounter Details Date Type Department Care Team Description 05/13/2010 Hospital Encounter [facility] Omar Savage MD [address] Research Only [address] [place], [place] [address] Social History Tobacco Use Types [...] NOS documented in this encounter Care Teams Scientific Software Developer Relationship Specialty Start Date End Date Provider, Outside PCP - General 03/13/09 10/22/18 [place] [address] documented as of this encounter
--- OUTSIDE RECORDS SUMMARY | 2022-05-16 09:09 | XMS_ITS | Encounter Summary ---
:1955 Author Organization [facility] Address [address] [address] Phone Care Team Providers Name Role Phone Pcp, No Primary Care Provider Unavailable Encounter Details Date Type Department Care Team Description 01/29/2008 Letters(Tab) [facility] [place] Omar Savage MD [facility] [address] [place] [address] P5.[address] [place], [place] [address] Social History Tobacco Use Types Packs/Day Years Used Date Smoking Tobacco: Never Alcohol Use Standard Drinks/Week Comments Yes 3.3 (1 standard drink = 0.6 oz pure alco hol) Sex Assigned at Date Recorded Not on file documented as of this encounter Progress Notes Omar Savage MD - 01/30/2008 7:23 AM CDT [facility] [address] [place] [address] 01/29/2008 TO: Micheal Rene [address] [place] [address] RE: MICHEAL RENE MR#: [id number] Dear Mr. Rene: From your recent Urology Clinic visit, your laboratory values remain stable. Your serum creatinine remains low because of your low body mass. It is 0.29. Your prostate-specific antigen blood test is 2.38, with normal up to 4. We await your return visit in one year. Best wishes. Sincerely, Omar Savage MD Received in It Consulting Director: 01/29/2008 16:28:05 (M: 01/30/2008 02:45:25 jlb) CS/golden Voice ID: [id number] Document ID: [id number] cc: Micheal Rene documented in this encounter Plan of Treatment Not on filedocumented as of this encounter Visit Diagnoses Not on filedocumented in this encounter Care Teams Composing Room Machinist Relationship Specialty Start Date End Date Pcp, No PCP - General 01/24/08 03/12/09 [facility] [place] [address] documented as of this encounter
--- OUTSIDE RECORDS SUMMARY | 2022-05-16 09:09 | XMS_ITS | Encounter Summary ---
:1955 Author Organization [facility] Address [address] [place] [address] Phone Care Team Providers Name Role Phone Unavailable Primary Care Provider Unavailable Encounter Details Date Type Department Care Team Description 09/29/2006 Letters(Tab) [facility] [place] [facility] Omar Savage MD [facility] [address] [facility] [address] [place], [place] [address] Social History Tobacco Use Types Packs/Day Years Used Date Smoking Tobacco: Never Assessed Sex Assigned at Date Recorded Not on file documented as of this encounter Progress Notes Omar Savage MD - 09/29/2006 4:34 PM CST [facility] [address] [place] [address] 09/29/2006 TO: Micheal Rene [address] [place], [place] [address] RE: MICHEAL RENE MR#: [id number] Dear Mr. Rene: From your recent Urology Clinic visit your prostate specific antigen value remains in a normal level and is 2.87. Best wishes and please feel free to contact us for questions. Sincerely, Omar Savage MD Received in Quality Assurance Monitor Chassis: 09/29/2006 12:33:54 (M: 09/29/2006 13:29:47 kms) CS/kms Voice ID: [id number] Document ID: [id number] cc: Micheal Rene [address] [facility] [address] F ANESTHESIOLOGIST documented in this encounter Plan of Treatment Not on filedocumented as of this encounter Visit Diagnoses Not on filedocumented in this encounter
--- OUTSIDE RECORDS SUMMARY | 2022-05-16 09:09 | XMS_ITS | Encounter Summary ---
:[address] [facility] Address [address] [facility] [place] [address] Phone Care Team Providers Name Role Phone Provider, Outside Primary Care Provider Unavailable Reason for Visit Reason Onset Date Comments Call Back 09/06/2010 Encounter Details Date Type Department Care Team Description 09/06/2010 Telephone [facility] Vickie Odell RN Call Back [address] [facility] [address] P5.200 [place], [place] [address] Social History Tobacco Use Types [...] states that he does not have a mammal keeper in [facility]. R: Patient quadriplegic states that he would like to speak directly with . Routing to WINDER HAND Telephone Encounter - Vickie Odell RN - 09/06/2010 1:59 PM CST Message copied by VICKIE ODELL on MonSep 06, 2010 1:59 PM ------ Message from: BRANDEE TALAMANTES Created: MonSep 06, 2010 1:52 PM 09/06/2010 1:53 PM Khanh Edgard @[email or web address]@ 1955 Questions regarding a referral for a pressure sore from Dr Frances. Best number to call patient back: [phone]. Best time of day to reach patient:anytime. WINDER HAND documented in this encounter Plan of Treatment Not on filedocumented as of this encounter Visit Diagnoses Not on filedocumented in this encounter Care Teams Director Music Relationship Specialty Start Date End Date Provider, Outside PCP - General 03/13/09 10/22/18 [place] [address] documented as of this encounter
--- OUTSIDE RECORDS SUMMARY | 2022-05-16 09:09 | XMS_ITS | Encounter Summary ---
:1955 Author Organization [facility] Address [address] [place] [address] Phone Care Team Providers Name Role Phone Unavailable Primary Care Provider Unavailable Encounter Details Date Type Department Care Team Description 09/02/2005 Orders Only [facility] XRAY [address] [place], [place] [address] Social History Tobacco Use Types Packs/Day Years Used Date Smoking Tobacco: Never Assessed Sex Assigned at Date Recorded Not on file documented as of this encounter Plan of Treatment Not on filedocumented as of this encounter Procedures Procedure Name Priority Date/Time Associated Diagnosis Comme nts ULT KIDNEYS Routine 09/02/2005 3:16 PM Results f or this COMPLETE SPINNING LATHE OPERATOR procedure are i n the results section. XR CHEST 2 VIEWS PA Routine 09/02/2005 3:03 PM Re sults for this + LAT* SPINNING LATHE OPERATOR procedure are i n the results section. documented in this encounter Results ULT KIDNEY COMPLETE (09/02/2005 3:16 PM SPINNING LATHE OPERATOR) Anatomical Region Laterality Modality Abdomen Ultrasound Specimen (Source) Anatomical Collection Method Collection Time Re ceived Time Location / / Volume Laterality 09/02/2005 3:16 PM SPINNING LATHE OPERATOR Impressions 09/05/2005 9:17 AM SPINNING LATHE OPERATOR : ??NO FOCAL MASS, STONE, OR HYDRONEPHROSIS IDENTIFIED WITHIN EITHER KIDNEY. I have personally reviewed the image(s) and initial interpretation, and I agree with the findings. . . Read Date: Sep 02 2005 ??4:12P BENEDICT AU M.D. - STAFF RADIOLOGIST FABIOLA AVALOS M.D. - RESIDENT RADIOLOGIST RELEASE RESULTS: (Y) ASI END: END RESULT: DATE DICTATED: () NURSING TEACHER: ( ) IMPRESSION Narrative 09/05/2005 9:17 AM SPINNING LATHE OPERATOR FABIOLA AVALOS M.D. - RESIDENT RADIOLOGIST Final Report EXAM: ?? RENAL US: TWENTY-NINE PALMS KIDNEYS ?? 04/2006 15:16 HISTORY: ??Neurogenic bladder. [...] RESIDENT RADIOLOGIST Final Report EXAM: RENAL US: TWENTY-NINE PALMS KIDNEYS 15:16 HISTORY: Neurogenic bladder. COMPARISON: 10/12/01. [...] ASI END: END RESULT: DATE DICTATED: () NURSING TEACHER: ( ) IMPRESSION Omar Savage MD ULT XR CHEST 2 VIEWS PA & LAT (09/02/2005 3:03 PM SPINNING LATHE OPERATOR) Anatomical Region Laterality Modality Chest Digital Radiography Specimen (Source) Anatomical Collection Method Collection Time Re ceived Time Location / / Volume Laterality 09/02/2005 3:03 PM SPINNING LATHE OPERATOR Impressions 09/02/2005 3:58 PM SPINNING LATHE OPERATOR : ??NO ACUTE PULMONARY INFILTRATE. ?? . . Read Date: Sep 02 2005 ??3:34P VIANCA COHEN M.D. - STAFF RADIOLOGIST - RESIDENT RADIOLOGIST RELEASE RESULTS: (Y) ASI END: END RESULT: DATE DICTATED: () NURSING TEACHER: ( ) IMPRESSION Narrative 09/02/2005 3:58 PM SPINNING LATHE OPERATOR - RESIDENT RADIOLOGIST Final Report EXAM: ?? [...] ASI END: END RESULT: DATE DICTATED: () NURSING TEACHER: ( ) IMPRESSION Omar Savage MD X-RAY documented in this encounter Visit Diagnoses Not on filedocumented in this encounter
--- OUTSIDE RECORDS SUMMARY | 2022-05-16 09:09 | XMS_ITS | Encounter Summary ---
:1955 Author Organization [facility] Address [address] [place] [address] Phone Care Team Providers Name Role Phone Pcp, No Primary Care Provider Unavailable Reason for Visit Reason Onset Date Comments Durable Medical Equipment 02/17/2009 Question about reordering equipment Check/Request Encounter Details Date Type Department Care Team Description 02/17/2009 Telephone HFA Physical Medicin e Reece Ziegler, Durable Medical [address] [facility] RN Equipment Check/Request M50 Multispecialty (Question about [place], [place] [address] Clinic reordering equipment) [phone] [place] [address] Social History Tobacco Use Types Packs/Day Years [...] refill of dourdrem?? Spelling? Pharmacy # is [phone] Pt. Name: Khanh Rene : 1955 (home) Insurance: PCP: No PCP Comment: Expects Return Call at: [phone] or cell [phone] Monday02/17/09 Copy of this phone message given to Dr Frances and she will call patient to check on equipment order needed. Reece Ziegler RN documented in this encounter Plan of Treatment Not on filedocumented as of this encounter Visit Diagnoses Not on filedocumented in this encounter Care Teams Medical Sales Associate Relationship Specialty Start Date End Date Pcp, No PCP - General 01/24/08 03/12/09 [facility] [place] [address] documented as of this encounter
--- OUTSIDE RECORDS SUMMARY | 2022-05-16 09:09 | XMS_ITS | Encounter Summary ---
:1955 Author Organization [facility] Address [address] [place] [address] Phone Care Team Providers Name Role Phone Unavailable Primary Care Provider Unavailable Reason for Visit Reason Onset Date Comments Medication Refill 10/16/2007 Encounter Details Date Type Department Care Team Description 10/16/2007 Refill HFA Urology Omar Savage MD Medication Refill [address] [facility], [address] Research Only [place], [place] [address] Social History Tobacco Use Types [...]
--- OUTSIDE RECORDS SUMMARY | 2022-05-16 09:09 | XMS_ITS | Encounter Summary ---
:1955 Author Organization [facility] Address [address] [place] [address] Phone Care Team Providers Name Role Phone Provider, Outside Primary Care Provider Unavailable Encounter Details Date Type Department Care Team Description 05/17/2010 Letters(Tab) [facility] Urology Omar Savage MD [address] [place] [address], [address] Research Only [place] [address] Social History Tobacco Use Types Packs/Day Years Used Date Smoking Tobacco: Never Alcohol Use Standard Drinks/Week Comments Yes 3.3 (1 standard drink = 0.6 oz pure alco hol) Sex Assigned at Date Recorded Not on file documented as of this encounter Progress Notes Omar Savage MD - 05/18/2010 6:15 AM CDT [facility] [address] [place] [address] May 17, 2010 TO: Micheal Rene [address] [facility] [place] [address] RE:MICHEAL RENE MR#:[id number] :1955 Dear Mr. Rene: From your recent urology clinic visit, the renal ultrasound that was performed does not show any evidence of kidney abnormalities. There is no dilation, no hydronephrosis or stones noted. Best wishes. Look forward to seeing you in 1 year. Please feel free to contact me for questions. Sincerely, Omar Savage MD Staff Physician Surgery Service Received in Social Media Community Manager: 05/17/2010 21:18 M: 05/18/2010 03:15 javon CS/javon Voice ID: [id number] Document ID: [id number] cc:Micheal Rene [address] [address] [address] documented in this encounter Plan of Treatment Not on filedocumented as of this encounter Visit Diagnoses Not on filedocumented in this encounter Care Teams Olive Knocker Relationship Specialty Start Date End Date Provider, Outside PCP - General 03/13/09 10/22/18 [place] [address] documented as of this encounter
--- OUTSIDE RECORDS SUMMARY | 2022-05-16 09:09 | XMS_ITS | Encounter Summary ---
:1955 Author Organization [facility] Address [address] [facility] [place] [address] Phone Care Team Providers Name Role Phone Provider, Outside Primary Care Provider Unavailable Reason for Visit Reason Comments Follow-up 13 months follow up visit [facility] Dr Frances HFA Monday PM&R Clinic for DX of C7 Spinal Cord Injury Encounter Details Date Type Department Care Team Description 04/20/2010 Office Visit HFA Neuromuscular Sameera Frances Don plegia () Clinic MD Valery (Primary Dx) [address], [address] [place] [address] Mail Code P5 [place], [place] [address] [place], [place] [phone] [address] Social History Tobacco Use Types Packs/Day Years [...] Frances for: 1) Wheelchair repair/s. Faxed to [facility] ([phone]) Referral to [facility]) Formal Wheelchair and wheeled mobility clinic faxedto scheduling to call Micheal to get scheduled ([phone]) Blanca Ziegler RN documented in this encounter Progress Notes Sameera Frances MD - 05/13/2010 3:35 PM CDT [facility] [address] [facility], [address] [place] [address] (fax) MEDREC#: [id number] PATIENT: MICHEAL FLETCHER : 1955 DATE: 04/20/2010 NEUROMUSCULAR PHYSICAL MEDICINE NOTE HISTORY OF PRESENT ILLNESS: Micheal Fletcher is a 55-year-old gentleman with a C7 [employer] B spinal cord [...] be broken as far the spokes. The icta-ny-evof stability is poor. The back of the [...] wheelchair and recommended he see the [facility] for a mapping of his buttocks and a more complete evaluation of his wheelchair. I do not think we need any changes in medications for spasticity. Sameera Frances MD Staff Physician Physical Medicine and Rehabilitation Service Received in Business Education Teacher: 05/11/2010 20:55 M: 05/13/2010 10:09 ms CLR/ms Voice ID: [id number] Document ID: [id number] cc:[place] [address] Sameera Frances MD - 04/20/2010 11:01 AM [...] unspecified documented in this encounter Care Teams Cutting Supervisor Relationship Specialty Start Date End Date Provider, Outside PCP - General 03/13/09 10/22/18 [place] [address] documented as of this encounter
--- OUTSIDE RECORDS SUMMARY | 2022-05-16 09:09 | XMS_ITS | Encounter Summary ---
:1955 Author Organization [facility] Address [address] [place] [address] Phone Care Team Providers Name Role Phone Unavailable Primary Care Provider Unavailable Encounter Details Date Type Department Care Team Description 09/02/2005 Letters(Tab) Unknown, Provider Social History Tobacco Use Types Packs/Day Years Used Date Smoking Tobacco: Never Assessed Sex Assigned at Date Recorded Not on file documented as of this encounter Progress Notes Interface, Head Sawyer Automatic-In - 11/15/2005 1:36 AM CDT [facility] [address] [facility], [address] [place], [place] [address] September 02, 2005 Mr. Micheal Rene [address] [place] [address] RE: MICHEAL RENE MR#: [id number] Dear Mr. Rene: From your recent Urology Clinic visit, your prostate specific antigen value remains low at 2.6. We will communicate with you once your other screening studies and x-ray studies have been completed. Best wishes. Please feel free to contact me for questions. Sincerely, Omar Savage MD Received in Head Sawyer Automatic: 09/02/2005 14:40:28 (M: 09/03/2005 06:57:04 dma) CS/fidelina Voice ID: [id number] Document ID: [id number] cc: This document was electronically signed by Omar Savage MD on 09/06/2005 18:13:45. documented in this encounter Plan of Treatment Not on filedocumented as of this encounter Visit Diagnoses Not on filedocumented in this encounter
--- OUTSIDE RECORDS SUMMARY | 2022-05-16 09:09 | XMS_ITS | Encounter Summary ---
:1955 Author Organization [facility] Address [address] [place] [address] Phone Care Team Providers Name Role Phone Provider, Outside Primary Care Provider Unavailable Encounter Details Date Type Department Care Team Description 08/30/2010 Telephone [facility] [place] Reece [place]iegler[place] [address] [facility] [address] [place] [address] Social History Tobacco Use Types Packs/Day Years [...] 08/30/2010 11:12 AM To: Neurology Team Pool [facility] [place] Message ----- From: Nola Espino Sent: 08/27/2010 1:52 PM To: Neurology Law Office Receptionist Pool Patient: Khanh Rene : 1955 Called to schedule an appointment with provider:Dr. Frances No appointments available: with preferred provider.. Date and time requested: caryn Reason for visit: Pt has a pressure sore, and needs a FU appt Phone number for return call: [phone] Monday08/30/10. Khanh Rene will need to [facility] at [phone] to schedule a follow up visit with Dr Frances in her PM&R Clinic. We will call Khanh and inform him of this. Reece Ziegler RN X SYSTEMS ENGINEER documented in this encounter Plan of Treatment Not on filedocumented as of this encounter Visit Diagnoses Not on filedocumented in this encounter Care Teams Crm Administrator Relationship Specialty Start Date End Date Provider, Outside PCP - General 03/13/09 10/22/18 [place] [address] documented as of this encounter
--- OUTSIDE RECORDS SUMMARY | 2022-05-16 09:09 | XMS_ITS | Encounter Summary ---
:1955 Author Organization Formerly Named [facility] Address [address] [place] [address] Phone Care Team Providers Name Role Phone Provider, Outside Primary Care Provider Unavailable Reason for Visit Reason Onset Date Comments Call Back 08/30/2010 Encounter Details Date Type Department Care Team Description 08/30/2010 Telephone [facility] Multispecialty Varsha Knight RN Call Back [address], [address] Mult[facility]ty Clinic [place], [place] [address] [phone] [place] [address] (Wo rk) Social History Tobacco Use Types Packs/Day Years Used Date Smoking Tobacco: Never Alcohol Use Standard Drinks/Week Comments Yes 3.3 (1 standard drink = 0.6 oz pure alco hol) Sex Assigned at Date Recorded Not on file documented as of this encounter Miscellaneous Notes Telephone Encounter - Varsha Knight RN - 08/30/2010 4:23 PM PACKAGER MACHINE Spoke with patient & let him know that Blanca Ziegler was working on this (see her telephone encounter from earlier today). Pt states he is using Duoderm for this pressure sore but thinks it may need other intervention. Let him know our office would be in touch soon regarding this appt. 08/31/10 830 AM. I called and talked to Khanh ([phone]) he is a Dr Frances Quadriplegia patient and he does have a open sore on his bottom, he did call scheduling at [facility] Neurology ([phone])and could not get in to see Dr Frances in her PM&R Clinic until September. I informed Khanh that I will route this phone message to Dr Frances plus I will page her to try to talk to her about Khanh. Blanca Ziegler RN AGER MACHINE documented in this encounter Plan of Treatment Not on filedocumented as of this encounter Visit Diagnoses Not on filedocumented in this encounter Care Teams Lawn Technician Relationship Specialty Start Date End Date Provider, Outside PCP - General 03/13/09 10/22/18 [place] [address] documented as of this encounter
--- OUTSIDE RECORDS SUMMARY | 2022-05-16 09:09 | XMS_ITS | Encounter Summary ---
:1955 Author Organization [facility] Address [address] [place] [address] Phone Care Team Providers Name Role Phone [...] 09/19/2001 5:05 PM Re sults for this PLUGGER WORKER procedure are i n the results section. PSA Routine 09/19/2001 5:05 PM Results f or this DIAGNOSTIC(PROSTATE PLUGGER WORKER procedur e are in SPE AG the results section. CREATININE, SERUM Routine 09/19/2001 5:05 PM Resu lts for this PLUGGER WORKER procedure are i n the results section. documented in this encounter Results PSA DIAGNOSTIC(PROSTATE SPE AG (09/19/2001 5:05 PM PLUGGER WORKER) athologist Signature PSA Diagnostic 0.5 0.00 - 4.00 HFA LAB NG/ML Specimen Anatomical Collection Method Collection Time Receive d Time (Source) Location / / Volume Laterality Blood 09/19/2001 5:05 PM 2 5:26 PLUGGER WORKER PM PLUGGER WORKER Omar Savage MD LABORATORY Performing Organization Address City/State/ZIP Code Phon e Number HFA LAB BUN (UREA NITROGEN) (09/19/2001 5:05 PM PLUGGER WORKER) athologist Signature BUN 13 5 - 25 MG/DL [facility] LAB Specimen Anatomical Collection Method Collection Time Receive d Time (Source) Location / / Volume Laterality Blood 09/19/2001 5:05 PM 2 5:26 PLUGGER WORKER PM PLUGGER WORKER Omar Savage MD LABORATORY Performing Organization Address City/State/ZIP Code Phon e Number HFA LAB CREATININE, SERUM (09/19/2001 5:05 PM PLUGGER WORKER) P athologist Signature Creatinine 0.5 0.5 - 1.4 HFA LAB MG/DL Specimen Anatomical Collection Method Collection Time Receive d Time (Source) Location / / Volume Laterality Blood 09/19/2001 5:05 PM 2 5:26 PLUGGER WORKER PM PLUGGER WORKER Omar Savage MD LABORATORY Performing Organization Address City/State/ZIP Code Phon e Number HFA LAB documented in this encounter Visit Diagnoses Not on filedocumented in this encounter
--- OUTSIDE RECORDS SUMMARY | 2022-05-16 09:09 | XMS_ITS | Encounter Summary ---
:1955 Author Organization [facility] Address [address] [place] [address] Phone Care Team Providers Name Role Phone Pcp, No Primary Care Provider Unavailable Reason for Visit Reason Onset Date Comments Refill Request 09/02/2008 Encounter Details Date Type Department Care Team Description 09/02/2008 Refill HFA Urology Omar Savage MD Refill Request [address] [facility], [address] Research [place], [place] [address] Social History Tobacco Use Types Packs/Day Years Used Date Smoking Tobacco: Never Alcohol Use Standard Drinks/Week Comments Yes 3.3 (1 standard drink = 0.6 oz pure alco hol) Sex Assigned at Date Recorded Not on file documented as of this encounter Plan of Treatment Not on filedocumented as of this encounter Visit Diagnoses Not on filedocumented in this encounter Care Teams Glass Cut Off Tender Relationship Specialty Start Date End Date Pcp, No PCP - General 01/24/08 03/12/09 [facility] [place] [address] documented as of this encounter
--- OUTSIDE RECORDS SUMMARY | 2022-05-16 09:09 | XMS_ITS | Encounter Summary ---
:1955 Author Organization [facility] Address [address] [place] [address] Phone Care Team Providers Name Role Phone Unavailable Primary Care Provider Unavailable Encounter Details Date Type Department Care Team Description 01/29/2001 Orders Only [facility] EMG Sameera Frances MD [address] [place], [place] [address] Mail Code P5 [place] [address] (Wo rk) Social History Tobacco [...] Results URINE CX (01/29/2001 3:37 PM CDT) [facility] Method Time Signature Urine Cult [facility] Test Name ? Collected [...] PM 01/31 CDT 10:25 AM CDT Narrative [facility] - 01/31/2001 10:25 AM CDT Ordered by an unspecified provider. Provider Unknown LAB MICROBIOLOGY Performing Organization Address City/State/ZIP Code Phon e Number [facility] [place] [address] LAB URINALYSIS, TOTAL (01/29/2001 3:37 PM CDT) [facility] Method Time Signature Color YELLOW YELLOW [facility] Appearance CLEAR CLEAR [facility] Urine Glucose NEGATIVE NEGATIVE [facility] Bili UA NEGATIVE NEGATIVE [facility] Ketones NEGATIVE NEGATIVE [facility] Specific [place] 1.010 1.003 - [facility] 1.030 Blood Ur TRACE Neg-Trace [facility] PH Urine 6.5 5.0 - 7.0 [facility] Protein Ur NEGATIVE NEGATIVE [facility] Urobilinogen 0.2 0.2 - 1.0 [facility] EU/dL Nitrite Ur NEGATIVE NEGATIVE [facility] Leuk Est TRACE Neg-Trace [facility] Microscopic [facility] WBC Ur 0 - 5 0 - 5 [facility] Trans Epith 1+ [facility] Sperm 1+ [facility] Specimen Anatomical Collection Method Collection Time Receive d Time (Source) Location / / Volume Laterality Urine 01/29/2001 3:37 PM 1 4:56 CDT PM CDT Narrative [facility] - 01/29/2001 4:56 PM CDT Ordered by an unspecified provider. Provider Unknown LABORATORY Performing Organization Address City/State/ZIP Code Phon e Number [facility] [place] [address] LAB documented in this encounter Visit Diagnoses Not on filedocumented in this encounter
--- OUTSIDE RECORDS SUMMARY | 2022-05-16 09:09 | XMS_ITS | Encounter Summary ---
:1955 Author Organization [facility] Address [address] [place] [address] Phone Care Team Providers Name Role Phone Provider, Outside Primary Care Provider Unavailable Reason for Visit Reason Comments Follow-up 19 months foolow up visit [facility] Dr Yvrose Mukherjee PM&R Clinic Dx C7 Spinal Cord Injury Encounter Details Date Type Department Care Team Description 03/13/2009 Office Visit HFA Neuromuscular Sameera Frances Don plegia () Clinic MD Valery (Primary Dx) [address], [address] [place] [address] Mail Code P5 [place], [place] [address] [place], [place] [phone] [address] Social History Tobacco Use Types Packs/Day [...] visit with Dr Frances A PM[facility]R Clinic ([phone]) Rx/orders given to Micheal by Dr Frances for Wheelchair lumbar support and wheelchair repairs, bilateral arm rests, replace sling back Blanca Ziegler RN documented in this encounter Progress Notes Sameera Frances MD - 03/26/2009 10:04 AM CDT [facility] [address] [facility] [place] [address] (fax) [facility] [id number] PATIENT: MICHEAL FLETCHER : 1955 DATE: 03/13/2009 NEUROMUSCULAR PHYSICAL MEDICINE NOTE HISTORY OF PRESENT ILLNESS: Micheal Fletcher is a 54-year-old gentleman with a C7 [employer] (AUDREY) B spinal cord [...] that eventually led to pacemaker placement at [facility]. He said that his angiogram did [...] discontinues that activity. He is using a VivaRealie wheelchair with a Joby cushion. It is [...] a slow healing coccyx ulcer at the [facility]. We have discussed whether he should [...] that complication. Sameera Frances MD Received in Scenario Writer: 03/20/2009 12:28:50 (M: 03/24/2009 03:22:10 golden) HOMA/jlb Voice ID: [id number] Document ID: [id number] cc: Abida Pulliam DO, [facility], [address] [place] [address] Sameera Frances MD - 03/19/2009 6:44 PM CDT See dictation. documented in this encounter Nursing Notes 03/13/2009 8:00 AM CDT >> Blanca Ziegler RN MonMar 13, 2009 8:24 AM 19 months follow up visit with Dr Frances in Monday [facility] PM[facility]R [facility]. DX of C7 Spinal Cord Injury, Quadriplegia, Neurogenic Bladder. B/P 87/60 pulse 105, states runs lower blood pressure. Self caths PRN during the day. Blanca Ziegler RN documented in this encounter Plan of Treatment Not on filedocumented as of this encounter Visit Diagnoses Diagnosis Quadriplegia () - Primary Quadriplegia, unspecified documented in this encounter Care Teams Motorboat Operator Relationship Specialty Start Date End Date Provider, Outside PCP - General 03/13/09 10/22/18 [place] [address] documented as of this encounter
--- OUTSIDE RECORDS SUMMARY | 2022-05-16 09:09 | XMS_ITS | Encounter Summary ---
:1955 Author Organization [facility] Address [address] [place], [place] [address]. [place] [address] Phone Care Team Providers Name Role Phone Unavailable Primary Care Provider Unavailable Encounter Details Date Type Department Care Team Description 10/12/2001 Orders Only [facility] Ultrasound [address] [place], [place] [address] Social History Tobacco Use Types Packs/Day Years Used Date Smoking Tobacco: Never Assessed Sex Assigned at Date Recorded Not on file documented as of this encounter Plan of Treatment Not on filedocumented as of this encounter Procedures Procedure Name Priority Date/Time Associated Diagnosis Comme nts ULT KIDNEYS Routine 10/12/2001 11:22 AM Results for this COMPLETE PILE DRIVER procedure are i n the results section. documented in this encounter Results ULT KIDNEY COMPLETE (10/12/2001 11:22 AM PILE DRIVER) Anatomical Region Laterality Modality Abdomen Ultrasound Specimen (Source) Anatomical Collection Method Collection Time Re ceived Time Location / / Volume Laterality 10/12/2001 11:22 AM PILE DRIVER Impressions 10/15/2001 4:06 PM PILE DRIVER : 1. ??NO RENAL STONES IDENTIFIED. 2. ??MILD CORTICAL THINNING BILATERALLY. ??THIS MAY INDICATE MEDICAL RENAL DISEASE. I have personally reviewed the image(s) and initial interpretation, and I agree with the findings. ASI END: RELEASE RESULTS: (Y) END RESULT: IMPRESSION Narrative 10/15/2001 4:06 PM PILE DRIVER Final Report EXAM: ?? RENAL US: ELEM KIDNEYS ?- ??10/12/2001 11:22AM SUSPECTED PATHOLOGY: SYMPTOMS [...] the original. Final Report EXAM: RENAL US: ELEM KIDNEYS - 002 11:22AM SUSPECTED PATHOLOGY: SYMPTOMS [...]
--- OUTSIDE RECORDS SUMMARY | 2022-05-16 09:09 | XMS_ITS | Encounter Summary ---
:1955 Author Organization [facility] Address [address] [place] [address] Phone Care Team Providers Name Role Phone Provider, Outside Primary Care Provider Unavailable Reason for Referral Consult/Test/Treat (Routine) - Closed Specialty Diagnoses / Procedures Referred By Contact Refer red To Contact Plastic Surgery / Diagnoses Ulcer Sameera Frances, PLASTIC SURGERY MD [address] Mail Code P[address] [place], [place] [address] Referral ID Status Reason Start Date Expiration Date Visits Requ ested Visits Authorized [id number] Closed 09/13/2010 09/13/2011 1 1 SIT AUTHORITY POLICE OFFICER Encounter Details Date Type Department Care Team Description 09/13/2010 Orders Only [facility] Phys Med/Rehab Sameera Frances U lcer () (Primary Clinic MD Dx) [address] Mail Code [address] [place], [place] [address] [place], [place] [phone] (Wo rk) Social History Tobacco Use Types [...] site documented in this encounter Care Teams Employee Services Manager Relationship Specialty Start Date End Date Provider, Outside PCP - General 03/13/09 10/22/18 [place] [address] documented as of this encounter
--- OUTSIDE RECORDS SUMMARY | 2022-05-16 09:09 | XMS_ITS | Encounter Summary ---
:1955 Author Organization [facility] Address [address] [place] [address] Phone Care Team Providers Name Role Phone Pcp, No Primary Care Provider Unavailable Reason for Visit Reason Onset Date Comments Question 02/20/2009 Called with question Encounter Details Date Type Department Care Team Description 02/20/2009 Telephone HFA Physical Medicin e Reece Ziegler, Question (Called with [facility] [address], [address] question) [address] [facility] [place] [address] Clinic [phone] [place] [address] Social History Tobacco Use Types Packs/Day Years [...] Created: MonFeb 19, 2009 3:38 PM Regarding: [facility] PMR TELEPHONE MESSAGE Taken by: Natalie Painting , 02/19/2009 3:38 PM Direct to: Problem: questions Pt. Name: Khanh Rene : 1955 (home) Insurance: PCP: No PCP Comment: Expects Return Call at: [phone] Monday02/20/09 at 930am, returned Khanh's phone call, had to leave phone message, Reece Ziegler RN 02/26/09 again returned Khanh's phone call woth no answer. Khanh is scheduled to see Dr Frances on Monday03/13/09 at [facility] PM[facility]R Clinic. I has also given Dr Frances phone message from Khanh on his question on medical supply.Reece Ziegler RN documented in this encounter Plan of Treatment Not on filedocumented as of this encounter Visit Diagnoses Not on filedocumented in this encounter Care Teams Hydro Mechanic Relationship Specialty Start Date End Date Pcp, No PCP - General 01/24/08 03/12/09 [facility] [place] [address] documented as of this encounter
--- OUTSIDE RECORDS SUMMARY | 2022-05-16 09:09 | XMS_ITS | Encounter Summary ---
:1955 Author Organization [facility] Address [address] [place] [address] Phone Care Team Providers Name Role Phone Provider, Outside Primary Care Provider Unavailable Reason for Visit Reason Onset Date Comments Refill Request 04/30/2010 Encounter Details Date Type Department Care Team Description 04/30/2010 Refill HFA Urology Omar Savage MD Refill Request [address] [facility] [place], [place] [address] Social History Tobacco Use Types [...] NOS documented in this encounter Care Teams Yarn Examiner Relationship Specialty Start Date End Date Provider, Outside PCP - General 03/13/09 10/22/18 [place] [address] documented as of this encounter
--- OUTSIDE RECORDS SUMMARY | 2022-05-16 09:09 | XMS_ITS | Encounter Summary ---
:1955 Author Organization [facility] Address [address] [place] [address] Phone Care Team Providers Name Role Phone Pcp, No Primary Care Provider Unavailable Reason for Visit Reason Onset Date Comments Refill Request 01/28/2008 Encounter Details Date Type Department Care Team Description 01/28/2008 Refill HFA Urology Omar Savage MD Refill Request [address] [facility] Research Only [place], [place] [address] Social History Tobacco Use Types [...] on filedocumented in this encounter Care Teams Associate Software Engineer Relationship Specialty Start Date End Date Pcp, No PCP - General 01/24/08 03/12/09 [facility] [place] [address] documented as of this encounter
--- OUTSIDE RECORDS SUMMARY | 2022-05-16 09:09 | XMS_ITS | Encounter Summary ---
:1955 Author Organization [facility] Address [address] [place] [address] Phone Care Team Providers Name Role Phone [...]
--- OUTSIDE RECORDS SUMMARY | 2022-05-16 09:09 | XMS_ITS | Encounter Summary ---
:1955 Author Organization [facility] Address [address] [place] [address] Phone Care Team Providers Name Role Phone Pcp, No Primary Care Provider Unavailable Reason for Visit Reason Comments Follow-up neurogenic bladder Encounter Details Date Type Department Care Team Description 01/29/2009 Office Visit HFA Urology Omar Savage, Neurogenic Bladder [address] [place] [address] (Primary Dx) [address] [place], [place] [address] Social History Tobacco Use Types Packs/Day Years Used Date Smoking Tobacco: Never Alcohol Use Standard Drinks/Week Comments Yes 3.3 (1 standard drink = 0.6 oz pure alco hol) Sex Assigned at Date Recorded Not on file documented as of this encounter Progress Notes Omar Savage MD - 02/02/2009 12:28 PM CDT [facility] [address] [facility] [place] [address] (fax) MED[facility]#: [id number] PATIENT: MICHEAL FLETCHER : 1955 DATE: 01/29/2009 [...] pinning. The pinning was performed at the [facility]. His pacemaker was placed at the [facility]. I will request laboratory values from both [...] 20 minutes. Omar Savage MD Received in Employee Benefits Coordinator: 01/29/2009 18:41:26 (M: 02/02/2009 08:06:12 sharmila) CS/sjv Voice ID: [id number] Document ID: [id number] cc: Omar Savage MD - 01/29/2009 6:41 [...] NOS documented in this encounter Care Teams Sales Associate Key Holder Relationship Specialty Start Date End Date Pcp, No PCP - General 01/24/08 03/12/09 [place] [place] [address] documented as of this encounter
--- OUTSIDE RECORDS SUMMARY | 2022-05-16 09:09 | XMS_ITS | Encounter Summary ---
:1955 Author Organization [facility] Address [address] [place] [address] Phone Care Team Providers Name Role Phone Unavailable Primary Care Provider Unavailable Encounter Details Date Type Department Care Team Description 10/22/2007 Abstract HFA Multispecialty Abstract, Provider [address] [place], [place] [address] Social History Tobacco Use Types [...]
--- OUTSIDE RECORDS SUMMARY | 2022-05-16 09:09 | XMS_ITS | Encounter Summary ---
:1955 Author Organization [facility] Address [address] [place] [address] Phone Care Team Providers Name Role Phone Unavailable Primary Care Provider Unavailable Encounter Details Date Type Department Care Team Description 03/04/2003 EWeb History [facility] [place] Clinic Bubba Tavarez MD [address] Mail Code P[address] [place], [place] [address] [place] [address] [phone] (Wo rk) Social History Tobacco Use Types Packs/Day Years Used Date Smoking Tobacco: Never Assessed Sex Assigned at Date Recorded Not on file documented as of this encounter Plan of Treatment Not on filedocumented as of this encounter Visit Diagnoses Not on filedocumented in this encounter
--- OUTSIDE RECORDS SUMMARY | 2022-05-16 09:09 | XMS_ITS | Encounter Summary ---
:1955 Author Organization [facility] Address [address] [place] [address] Phone Care Team Providers Name Role Phone Unavailable Primary Care Provider Unavailable Encounter Details Date Type Department Care Team Description 05/15/2003 EWeb History [facility] EMG Sameera Frances MD [address] [facility] [address] [place], [place] [address] Mail Code P[address] [place] [address] (Wo rk) Social History Tobacco Use Types Packs/Day Years Used Date Smoking Tobacco: Never Assessed Sex Assigned at Date Recorded Not on file documented as of this encounter Plan of Treatment Not on filedocumented as of this encounter Visit Diagnoses Not on filedocumented in this encounter
--- OUTSIDE RECORDS SUMMARY | 2022-05-16 09:09 | XMS_ITS | Encounter Summary ---
:1955 Author Organization [facility] Address [address] [place] [address] Phone Care Team Providers Name Role Phone Provider, Outside Primary Care Provider Unavailable Encounter Details Date Type Department Care Team Description 09/13/2010 Notes/Trans [facility] Sameera Frances MD [address] , [address] [facility] Professional Mail Code [address] [address] [place] [address] [phone] Social History Tobacco Use Types Packs/Day Years Used Date Smoking Tobacco: Never Alcohol Use Standard Drinks/Week Comments Yes 3.3 (1 standard drink = 0.6 oz pure alco hol) Sex Assigned at Date Recorded Not on file documented as of this encounter Progress Notes Sameera Frances MD - 09/16/2010 12:35 [place] [address] [facility]#: [id number] PATIENT: MICHEAL RENE : 1955 DATE: 09/13/2010 [...] Physical Medicine and Rehabilitation Service Received in Vendor Representatives: 09/13/2010 15:26 M: 09/14/2010 09:05 [facility] HOMA/srikanth Voice ID: [id number] Document ID: [id number] SHAKER documented in this encounter Plan of Treatment Not on filedocumented as of this encounter Visit Diagnoses Not on filedocumented in this encounter Care Teams Breaster Relationship Specialty Start Date End Date Provider, Outside PCP - General 03/13/09 10/22/18 [place] [address] documented as of this encounter
--- OUTSIDE RECORDS SUMMARY | 2022-05-16 09:09 | XMS_ITS | Encounter Summary ---
:1955 Author Organization [facility] [place] [facility] Address [address] [place] [address] [place] [address] Phone Care Team Providers Name Role Phone Provider, Outside Primary Care Provider Unavailable Encounter Details Date Type Department Care Team Description 04/07/2010 Telephone HFA Urology Omar Savage MD [address] [facility], [address] Research Only [place], [place] [address] Social History Tobacco Use Types [...] BALL AT 11:30. PLEASE CALL HIM AT [phone] Pt. Name: Khanh Rene : 1955 (home) Insurance: PCP: Outside Provider Comment: Expects Return Call at: documented in this encounter Plan of Treatment Not on filedocumented as of this encounter Visit Diagnoses Not on filedocumented in this encounter Care Teams Inspector Set Up And Lay Out Relationship Specialty Start Date End Date Provider, Outside PCP - General 03/13/09 10/22/18 [place] [address] documented as of this encounter
--- OUTSIDE RECORDS SUMMARY | 2022-05-16 09:09 | XMS_ITS | Encounter Summary ---
:[address] [facility] Address [address] [place] [address] Phone Care Team Providers Name Role Phone Pcp, No Primary Care Provider Unavailable Reason for Visit Reason Comments Follow-up med check-in Encounter Details Date Type Department Care Team Description 01/24/2008 Office Visit HFA Urology Omar Savage, Neurogenic Bladder [address] [facility] (Primary Dx) [address] [place], [place] [address] Social History Tobacco Use Types Packs/Day Years Used Date Smoking Tobacco: Never Alcohol Use Standard Drinks/Week Comments Yes 3.3 (1 standard drink = 0.6 oz pure alco hol) Sex Assigned at Date Recorded Not on file documented as of this encounter Progress Notes Omar Savage MD - 01/29/2008 2:47 PM CDT [facility] [address] [facility], [address] [place] [address] (fax) MEDREC#: [id number] PATIENT: MICHEAL RENE : 1955 DATE: 01/24/2008 [...] this examination. Omar Savage MD Received in Bleach Boiler Packer: 01/24/2008 17:47:53 (M: 01/29/2008 08:19:42 aml) CS/aml Voice ID: [id number] Document ID: [id number] cc: Omar Savage MD - 01/24/2008 5:48 [...] eGFR, >60 mL/min/1.73 HFA LAB Non- m2 Malagasy Specimen Anatomical Collection Method Collection Time Receive d Time (Source) Location / / Volume Laterality Blood 01/24/2008 4:05 PM 8 4:29 CDT PM CDT Omar Savage MD LABORATORY Performing Organization Address City/[facility]/ZIP Code Phon e Number HFA LAB GLOMERULAR FILTRATION RATE B (01/24/2008 4:05 PM CDT) P athologist Signature eGFR, >60 mL/min/1.73 HFA LAB Malagasy m2 Comment: IDMS TRACEABLE CALIBRATION EFFECTIVE 08/16/2007 Specimen Anatomical Collection Method Collection Time Receive d Time (Source) Location / / Volume Laterality Blood 01/24/2008 4:05 PM 8 4:29 CDT PM CDT Omar Savage MD LABORATORY Performing Organization Address City/[facility]/ZIP Code Phon e Number HFA LAB (ABNORMAL) [...] NOS documented in this encounter Care Teams Certified Surgical Tech/First Assistant Relationship Specialty Start Date End Date Pcp, No PCP - General 01/24/08 03/12/09 [facility] [place] [address] documented as of this encounter
--- OUTSIDE RECORDS SUMMARY | 2022-05-16 09:09 | XMS_ITS | Encounter Summary ---
:1955 Author Organization [facility] Address [address] [place] [address] Phone Care Team Providers Name Role Phone Unavailable Primary Care Provider Unavailable Encounter Details Date Type Department Care Team Description 08/18/2005 Notes/Trans Unknown, Provider Social History Tobacco Use Types Packs/Day Years Used Date Smoking Tobacco: Never Assessed Sex Assigned at Date Recorded Not on file documented as of this encounter Progress Notes Interface, Media Center Assistant-In - 11/15/2005 1:28 AM CDT [facility]#: [id number] [facility] PATIENT: MICHEAL FLETCHER [address] [facility], [address] : 1955 [place] [address] DATE: 08/18/2005 Page (fax) The patient is [...] KEFLEX, SHELLFISH, AND AUGMENTIN. His primary care toll transmission worker is Dr. Sameera Frances whom he sees [...] year's time. Omar Savage MD Received in Media Center Assistant: 08/22/2005 18:11:27 (M: 08/24/2005 17:01:36 cb) CS/cb Voice ID: [id number] Document ID: [id number] cc: This document was electronically signed by Omar Savage MD on 08/26/2005 10:47:02. ? documented in this encounter Plan of Treatment Not on filedocumented as of this encounter Visit Diagnoses Not on filedocumented in this encounter
--- OUTSIDE RECORDS SUMMARY | 2022-05-16 09:09 | XMS_ITS | Encounter Summary ---
:1955 Author Organization [facility] Address [address] [place] [address] Phone Care Team Providers Name Role Phone [...] 09/23/2010 12:00 AM CSTAssociated Order(s): INFORMATION DISCLOSURE NESS INTELLIGENCE ADMINISTRATOR documented in this encounter Plan of Treatment Not on filedocumented as of this encounter Procedures Procedure Name Priority Date/Time Associated Comments Diagnosis INFORMATION 09/23/2010 5:22 PM Results f or this DISCLOSURE BUSINESS INTELLIGENCE ADMINISTRATOR procedure are i n the results section. documented in this encounter Results INFORMATION DISCLOSURE (09/23/2010 5:22 PM BUSINESS INTELLIGENCE ADMINISTRATOR) Narrative 09/23/2010 5:22 PM BUSINESS INTELLIGENCE ADMINISTRATOR Procedure Note Unknown, Provider - 09/23/2010 12:00 AM CST Provider Unknown SCANNED CONSENTS documented in this encounter Visit Diagnoses Not on filedocumented in this encounter Care Teams Labeling Strategist Relationship Specialty Start Date End Date Provider, Outside PCP - General 03/13/09 10/22/18 [place] [address] documented as of this encounter
--- OUTSIDE RECORDS SUMMARY | 2022-05-16 09:09 | XMS_ITS | Encounter Summary ---
:1955 Author Organization [facility] Address [address] [place] [address] Phone Care Team Providers Name Role Phone Provider, Outside Primary Care Provider Unavailable Reason for Visit Reason Onset Date Comments Refill Request 10/21/2009 Encounter Details Date Type Department Care Team Description 10/21/2009 Refill HFA Urology Omar Savaeg MD Refill Request [address] [facility], [address] Research Only [place], [place] [address] Social History Tobacco Use Types [...] documented in this encounter Care Teams Electrical And Electronic Assembler Relationship Specialty Start Date End Date Provider, Outside PCP - General 03/13/09 10/22/18 [place] [address] documented as of this encounter
--- OUTSIDE RECORDS SUMMARY | 2022-05-16 09:09 | XMS_ITS | Encounter Summary ---
:1955 Author Organization [facility] Address [address] [place] [address] Phone Care Team Providers Name Role Phone Unavailable Primary Care Provider Unavailable Reason for Visit Reason Comments Follow-up Encounter Details Date Type Department Care Team Description 07/31/2007 Office Visit [facility] Phys Med/Rehab Sameera Frances Q uadriplegia (); Clinic Neurogenic Bowel; [address] [facility] Sp[facility] P5.200 Mail Code P5 [place], [place] [address] [place], [place] [phone] (Wo rk) Social History Tobacco Use Types Packs/Day Years Used Date Smoking Tobacco: Never Alcohol Use Standard Drinks/Week Comments Yes 3.3 (1 standard drink = 0.6 oz pure alco hol) Sex Assigned at Date Recorded Not on file documented as of this encounter Last Filed Vital Signs Vital Sign Reading Time Taken Comments Blood Pressure 91/64 07/31/2007 3:21 PM STOVE FITTER Pulse 81 07/31/2007 3:21 PM STOVE FITTER Temperature - - Respiratory Rate - - Oxygen Saturation - - Inhaled Oxygen Concentration - - Weight - - Height 6 cm (2.36) 07/31/2007 3:21 PM STOVE FITTER Body Mass Index - - documented in this encounter Progress Notes Sameera Frances MD - 08/15/2007 11:[address] [place] [place] [address] MEDREC#: [id number] PATIENT: MICHEAL RENE : 1955 DATE: 07/31/2007 PHYSICAL MEDICINE AND REHABILITATION NEUROLOGY CLINIC ADDENDUM: Again, under recommendations, I did talk to him that now he is 49 that he really should have an melt down furnace operator who can coordinate his prophylactic care while he ages, in particular heart disease and prostate concerns. He is not interested and would just prefer to treat things as they come up, and declined my offers to arrange him with a Primary Care physician. Sameera Frances MD Staff Physician Physical Medicine and Rehabilitation Service Received in Linen Grader: 08/02/2007 15:01:18 (M: 08/06/2007 11:31:55/dd:st) CLR/dd:st Voice ID: [id number] Document ID: [id number] cc: E FITTER Sameera Frances MD - 08/15/2007 11:[address] [place] [address] [facility]#: [id number] PATIENT: MICHEAL RENE : 1955 DATE: 07/31/2007 [...] father and a grandfather. He lives in [place] and just recently he has started to [...] He has just received a new manual Zao.comie wheelchair with a J-cushion and he is [...] he likes because of stability. ASSESSMENT: C7 [employer] (AUDREY) A chronic spinal [...] Physical Medicine and Rehabilitation Service Received in Linen Grader: 08/02/2007 14:58:39 (M: 08/06/2007 11:12:53/dd:st) CLR/dd:st Voice ID: [id number] Document ID: [id number] cc: E FITTER Sameera Frances MD - 08/02/2007 3:01 PM CST HPI ROS Physical Exam See my dictation for today. E FITTER documented in this encounter Plan of Treatment Not on filedocumented as of this encounter Visit Diagnoses Diagnosis Quadriplegia () Quadriplegia, unspecified Neurogenic bowel Spastic Abnormal involuntary movements documented in this encounter
--- OUTSIDE RECORDS SUMMARY | 2022-05-16 09:09 | XMS_ITS | Encounter Summary ---
:1955 Author Organization [facility] Address [address] [place] [address] Phone Care Team Providers Name Role Phone [...] 08/18/2005 12:00 AM R esults for this PRESS MANAGER procedure are i n the results section. PSA-SCREENING(MT) Routine 08/18/2005 12:00 AM Res ults for this PRESS MANAGER procedure are i n the results section. CREATININE, SERUM Routine 08/18/2005 12:00 AM Res ults for this PRESS MANAGER procedure are i n the results section. documented in this encounter Results PSA-SCREENING(MT) (08/18/2005 12:00 AM PRESS MANAGER) athologist Signature PSA Screen 2.6 0.00 - 4.00 HFA LAB NG/ML Specimen (Source) Anatomical Collection Method Collection Time Re ceived Time Location / / Volume Laterality Blood 08/18/2005 08/18/2005 5:07 PM PRESS MANAGER Omar Savage MD LABORATORY Performing Organization Address City/State/ZIP Code Phon e Number HFA LAB BUN (UREA NITROGEN) (08/18/2005 12:00 AM PRESS MANAGER) athologist Signature BUN 9 5 - 25 MG/DL HFA LAB Specimen (Source) Anatomical Collection Method Collection Time Re ceived Time Location / / Volume Laterality Blood 08/18/2005 08/18/2005 5:07 PM PRESS MANAGER Omar Savage MD LABORATORY Performing Organization Address City/State/ZIP Code Phon e Number HFA LAB CREATININE, SERUM (08/18/2005 12:00 AM PRESS MANAGER) P athologist Signature Creatinine <0.5 0.5 - 1.4 HFA LAB MG/DL Comment: REPEATED Specimen (Source) Anatomical Collection Method Collection Time Re ceived Time Location / / Volume Laterality Blood 08/18/2005 08/18/2005 5:07 PM PRESS MANAGER Omar Savage MD LABORATORY Performing Organization Address City/State/ZIP Code Phon e Number HFA LAB documented in this encounter Visit Diagnoses Not on filedocumented in this encounter
--- OUTSIDE RECORDS SUMMARY | 2022-05-16 09:09 | XMS_ITS | Encounter Summary ---
:1955 Author Organization [facility] Address [address] [place] [address] Phone Care Team Providers Name Role Phone Unavailable Primary Care Provider Unavailable Encounter Details Date Type Department Care Team Description 10/12/2001 Orders Only [facility] XRAY [address] [place], [place] [address] Social History Tobacco Use Types Packs/Day Years Used Date Smoking Tobacco: Never Assessed Sex Assigned at Date Recorded Not on file documented as of this encounter Plan of Treatment Not on filedocumented as of this encounter Procedures Procedure Name Priority Date/Time Associated Diagnosis Comme nts XR CHEST 2 VIEWS PA Routine 10/12/2001 12:00 PM R esults for this + LAT* SENIOR NET SOFTWARE ENGINEER procedure are i n the results section. ULT KIDNEYS Routine 10/12/2001 11:22 AM Results for this COMPLETE SENIOR NET SOFTWARE ENGINEER procedure are i n the results section. documented in this encounter Results XR CHEST 2 VIEWS PA & LAT (10/12/2001 12:00 PM SENIOR NET SOFTWARE ENGINEER) Anatomical Region Laterality Modality Chest Digital Radiography Specimen (Source) Anatomical Collection Method Collection Time Re ceived Time Location / / Volume Laterality 10/12/2001 12:00 PM SENIOR NET SOFTWARE ENGINEER Impressions 10/14/2001 3:54 PM SENIOR NET SOFTWARE ENGINEER : 1. ??NO PULMONARY FIBROSIS OR AIR-SPACE INFILTRATE SEEN. 2. ??STABLE RIGHT LOWER LOBE PULMONARY N ODULE, LIKELY CALCIFIED. 3. ??INTERVAL MORE PROMINENT DENSITY OVE R THE MEDIAL ASPECT OF THE RIGHT APEX, OF UNCERTAIN CLINICAL SIGNIFICANCE . ??FURTHER EVALUATION WITH LORDOTIC VIEW MAY BE HELPFUL. ASI END: RELEASE RESULTS: (Y) END RESULT: IMPRESSION Narrative 10/14/2001 3:54 PM SENIOR NET SOFTWARE ENGINEER Final Report EXAM: ?? CHEST 2 VIEWS [...] X-RAY ULT KIDNEY COMPLETE (10/12/2001 11:22 AM SENIOR NET SOFTWARE ENGINEER) Anatomical Region Laterality Modality Abdomen Ultrasound Specimen (Source) Anatomical Collection Method Collection Time Re ceived Time Location / / Volume Laterality 10/12/2001 11:22 AM SENIOR NET SOFTWARE ENGINEER Impressions 10/15/2001 4:06 PM SENIOR NET SOFTWARE ENGINEER : 1. ??NO RENAL STONES IDENTIFIED. 2. ??MILD CORTICAL THINNING BILATERALLY. ??THIS MAY INDICATE MEDICAL RENAL DISEASE. I have personally reviewed the image(s) and initial interpretation, and I agree with the findings. ASI END: RELEASE RESULTS: (Y) END RESULT: IMPRESSION Narrative 10/15/2001 4:06 PM SENIOR NET SOFTWARE ENGINEER Final Report EXAM: ?? RENAL US: [place] KIDNEYS ?- ??10/12/2001 11:22AM SUSPECTED PATHOLOGY: SYMPTOMS [...] the original. Final Report EXAM: RENAL US: [place] KIDNEYS - 002 11:22AM SUSPECTED PATHOLOGY: SYMPTOMS [...]
--- OUTSIDE RECORDS SUMMARY | 2022-05-16 09:09 | XMS_ITS | Encounter Summary ---
:1955 Author Organization [facility] Address [address] [place] [address] Phone Care Team Providers Name Role Phone Provider, Outside Primary Care Provider Unavailable Reason for Visit Reason Comments Follow-up Encounter Details Date Type Department Care Team Description 04/01/2010 Office Visit HFA Urology Omar Savage, Neurogenic bladder; [address] [place] [address] Screening for prostate cancer [address] Research Only [place], [place] [address] Social History Tobacco Use Types Packs/Day Years [...] Savage MD - 04/05/2010 1:22 PM CDT [facility] [address] [facility], [address] [place] [address] (fax) [facility]#: [id number] PATIENT: MICHEAL FLETCHER : 1955 DATE: 04/01/2010 [...] MD Staff Physician Surgery Service Received in Vaccine Manager: 04/02/2010 14:55 M: 04/02/2010 22:48 kn CS/kn Voice ID: [id number] Document ID: [id number] Omar Savage MD - 04/02/2010 2:55 PM [...] NOS documented in this encounter Care Teams Molybdenum Steamer Operator Relationship Specialty Start Date End Date Provider, Outside PCP - General 03/13/09 10/22/18 [place] [address] documented as of this encounter
--- OUTSIDE RECORDS SUMMARY | 2022-05-16 09:09 | XMS_ITS | Encounter Summary ---
:1955 Author Organization [facility] Address [address] [place] [address] Phone Care Team Providers Name Role Phone Unavailable Primary Care Provider Unavailable Encounter Details Date Type Department Care Team Description 05/10/2005 Notes/Trans Unknown, Provider Social History Tobacco Use Types Packs/Day Years Used Date Smoking Tobacco: Never Assessed Sex Assigned at Date Recorded Not on file documented as of this encounter Progress Notes Interface, Casting And Locker Room Servicer-In - 11/15/2005 12:30 AM CDT [facility] MEDREC#: [id number] [place] [address] PATIENT: MICHEAL FLETCHER : 1955 NARRATIVE NOTES [...] a father and a grandfather living in [place]. REVIEW OF SYSTEMS: A total of ten [...] depression. Equipment - he has a new Hip Innovation Technologyie wheelchair and a J cushion with extra [...] Physical Medicine and Rehabilitation Service Received in Casting And Locker Room Servicer: 05/10/2005 17:00:07 (M: 05/12/2005 12:51:56/[facility]) [facility]/cme Voice ID: [id number] Document ID: [id number] cc: This document was electronically signed by Sameera Frances MD on 06/07/2005 14:43:43. documented in this encounter Plan of Treatment Not on filedocumented as of this encounter Visit Diagnoses Not on filedocumented in this encounter
--- OUTSIDE RECORDS SUMMARY | 2022-05-16 09:09 | XMS_ITS | Encounter Summary ---
:1955 Author Organization [facility] Address [address] [place] [address] Phone Care Team Providers Name Role Phone Provider, Outside Primary Care Provider Unavailable Reason for Visit Reason Comments Referral Consult/Test/Treat (Routine) - Closed Specialty Diagnoses / Procedures Referred By Contact Refer red To Contact Plastic Surgery / Diagnoses Ulcer Sameera Frances, PLASTIC SURGERY [address] Mail Code [address] [place], [place] [address] Referral ID Status Reason Start Date Expiration Date Visits Requ ested Visits Authorized [id number] Closed 09/13/2010 09/13/2011 1 1 Encounter Details Date Type Department Care Team Description 09/17/2010 Office Visit [facility] [place]astic Surg Bubba Loya () Sara Rasmussen MD (Primary Dx) [address] [place], [place] [address] [place], [place] [phone] Social History Tobacco Use Types Packs/Day Years Used Date Smoking Tobacco: Never Smokeless Tobacco: Never Alcohol Use Standard Drinks/Week Comments Yes 3.3 (1 standard drink = 0.6 oz pure alco hol) once in while Sex Assigned at Date Recorded Not on file documented as of this encounter Last Filed Vital Signs Vital Sign Reading Time Taken Comments Blood Pressure 112/77 09/17/2010 8:59 AM PLATING AND POINT ASSEMBLY SUPERVISOR Pulse 98 09/17/2010 8:59 AM PLATING AND POINT ASSEMBLY SUPERVISOR Temperature 35.9 ??C (96.7 ??F) 09/17/2010 8:59 AM PLATING AND POINT ASSEMBLY SUPERVISOR Respiratory Rate - - Oxygen Saturation [...] P: As ordered by provider. Dr loya ING AND POINT ASSEMBLY SUPERVISOR Arnold Mejía MD - 09/17/2010 9:45 [...] documented. Bubba Loya MD, 09/17/2010 11:39 AM ING AND POINT ASSEMBLY SUPERVISOR documented in this encounter Plan of Treatment Not on filedocumented as of this encounter Procedures Procedure Name Priority Date/Time Associated Diagnosis Comme nts SED RATE (ESR) Routine 09/17/2010 9:44 AM Quadriplegia () Re sults for this PLATING AND POINT ASSEMBLY SUPERVISOR procedure are i n the results section. CBC WITH PLATELET Routine 09/17/2010 9:44 AM Quadriplegia () Results for this PLATING AND POINT ASSEMBLY SUPERVISOR procedure are i n the results section. documented in this encounter Results (ABNORMAL) XR PELVIS WITH BOTH LAT HIP (09/17/2010 10:28 AM PLATING AND POINT ASSEMBLY SUPERVISOR) Anatomical Region Laterality Modality Pelvis Computed Radiography Specimen (Source) Anatomical Collection Method Collection Time Re ceived Time Location / / Volume Laterality 09/17/2010 10:28 AM PLATING AND POINT ASSEMBLY SUPERVISOR Impressions 09/17/2010 10:35 AM PLATING AND POINT ASSEMBLY SUPERVISOR Impression: Severe osteoarthritis involving both hips with postsurgical fixation of a left hip fracture. There is no cortical irregularity to suggest osteomyelitis. This however lucency surrounding a fe moral IM nail. Three-phase bone scan may be beneficial to assess for infection surrounding the nail if clinically indicated. Reading Radiologist: Khanh Brunson Narrative 09/17/2010 10:35 AM PLATING AND POINT ASSEMBLY SUPERVISOR History: Rule out osteo. Comparison: None. [...] (ABNORMAL) CBC WITH PLATELET (09/17/2010 9:44 AM PLATING AND POINT ASSEMBLY SUPERVISOR) P athologist Signature WBC 5.3 4.0 - 10.0 [facility] k/cmm RBC 4.03 (L) 4.60 - 6.00 [facility] m/cmm Hgb 11.8 (L) 13.1 - 17.5 [facility] g/dL Hematocrit 36.4 (L) 40.0 - 51.0 [facility] % MCV 90.3 80.0 - [facility] 100.0 fL MCH 29.3 25.0 - 32.0 [facility] pg MCHC 32.4 31.0 - 36.0 [facility] g/dL RDW 12.8 11.5 - 14.5 [facility] % Plt 308 150 - 400 [facility] k/cmm MPV 8.0 6.5 - 12.5 [facility] fL NRBC .0 0.0 - 0.0 % [facility] Specimen Anatomical Collection Method Collection Time Receive d Time (Source) Location / / Volume Laterality Blood 09/17/2010 9:44 AM 1 9:44 PLATING AND POINT ASSEMBLY SUPERVISOR AM PLATING AND POINT ASSEMBLY SUPERVISOR Arnold Mejía MD LABORATORY Performing Organization Address City/[facility]/ZIP [facility] Phon e Number [facility] [place] [address] LAB (ABNORMAL) SED RATE (ESR) (09/17/2010 9:44 AM PLATING AND POINT ASSEMBLY SUPERVISOR) P athologist Signature Sed Rate 51 (H) 0 - 10 mm/hr [facility] Specimen Anatomical Collection Method Collection Time Receive d Time (Source) Location / / Volume Laterality Blood 09/17/2010 9:44 AM 1 9:44 PLATING AND POINT ASSEMBLY SUPERVISOR AM PLATING AND POINT ASSEMBLY SUPERVISOR Arnold Mejía MD LABORATORY Performing Organization Address City/[facility] Phon e Number [facility] [place] [address] LAB documented in this encounter Visit Diagnoses Diagnosis Quadriplegia () - Primary Quadriplegia, unspecified Quadriplegia () Quadriplegia, unspecified documented in this encounter Care Teams Peanut Shaker Relationship Specialty Start Date End Date Provider, Outside PCP - General 03/13/09 10/22/18 [place] [address] documented as of this encounter
--- OUTSIDE RECORDS SUMMARY | 2022-05-16 09:09 | XMS_ITS | Encounter Summary ---
:1955 Author Organization [facility] Address [address] [place] [address] Phone Care Team Providers Name Role Phone Unavailable Primary Care Provider Unavailable Encounter Details Date Type Department Care Team Description 05/10/2005 EWeb History [facility] Sameera Frances MD [address] [facility] [address] [place], [place] [address] Mail Code [address]5 [place] [address] (Wo rk) Social History Tobacco Use Types Packs/Day Years Used Date Smoking Tobacco: Never Assessed Sex Assigned at Date Recorded Not on file documented as of this encounter Plan of Treatment Not on filedocumented as of this encounter Visit Diagnoses Not on filedocumented in this encounter
--- OUTSIDE RECORDS SUMMARY | 2022-05-16 09:09 | XMS_ITS | Encounter Summary ---
:1955 Author Organization [facility] Address [address] [place], [place] [address] [place] [address] Phone Care Team Providers Name Role Phone Unavailable Primary Care Provider Unavailable Encounter Details Date Type Department Care Team Description 09/02/2005 Orders Only [facility] Ultrasound [address] [place], [place] [address] Social History Tobacco Use Types Packs/Day Years Used Date Smoking Tobacco: Never Assessed Sex Assigned at Date Recorded Not on file documented as of this encounter Plan of Treatment Not on filedocumented as of this encounter Procedures Procedure Name Priority Date/Time Associated Diagnosis Comme nts ULT KIDNEYS Routine 09/02/2005 3:16 PM Results f or this COMPLETE RESIN MAKER procedure are i n the results section. documented in this encounter Results ULT KIDNEY COMPLETE (09/02/2005 3:16 PM RESIN MAKER) Anatomical Region Laterality Modality Abdomen Ultrasound Specimen (Source) Anatomical Collection Method Collection Time Re ceived Time Location / / Volume Laterality 09/02/2005 3:16 PM RESIN MAKER Impressions 09/05/2005 9:17 AM RESIN MAKER : ??NO FOCAL MASS, STONE, OR HYDRONEPHROSIS IDENTIFIED WITHIN EITHER KIDNEY. I have personally reviewed the image(s) and initial interpretation, and I agree with the findings. . . Read Date: Sep 02 2005 ??4:12P BENEDICT AU M.D. - STAFF RADIOLOGIST FABIOLA AVALOS M.D. - RESIDENT RADIOLOGIST RELEASE RESULTS: (Y) ASI END: END RESULT: DATE DICTATED: () STONE RIGGER: ( ) IMPRESSION Narrative 09/05/2005 9:17 AM RESIN MAKER FABIOLA AVALOS M.D. - RESIDENT RADIOLOGIST Final Report EXAM: ?? RENAL US: COW CREEK KIDNEYS ?? 04/2006 15:16 HISTORY: ??Neurogenic bladder. [...] RESIDENT RADIOLOGIST Final Report EXAM: RENAL US: [place] KIDNEYS 15:16 HISTORY: Neurogenic bladder. COMPARISON: 10/12/01. [...] ASI END: END RESULT: DATE DICTATED: () STONE RIGGER: ( ) IMPRESSION Omar Savage MD ULT documented in this encounter Visit Diagnoses Not on filedocumented in this encounter
--- OUTSIDE RECORDS SUMMARY | 2022-05-16 09:09 | XMS_ITS | Encounter Summary ---
:1955 Author Organization [facility] Address [address] [place] [address] Phone Care Team Providers Name Role Phone [...] filedocumented in this encounter Care Teams Patient Resource Specialist Relationship Specialty Start Date End Date Provider, Outside PCP - General 03/13/09 10/22/18 [place] [address] documented as of this encounter
--- OUTSIDE RECORDS SUMMARY | 2022-05-16 09:10 | XMS_ITS | Encounter Summary ---
:1955 Author Organization [facility] Address [address] [place] [address] Phone Care Team Providers Name Role Phone Unavailable Primary Care Provider Unavailable Encounter Details Date Type Department Care Team Description 04/03/1997 Orders Only [facility] [place] [address] [place], [place] [address] Social History Tobacco Use Types [...]
--- OUTSIDE RECORDS SUMMARY | 2022-05-16 09:10 | XMS_ITS | Encounter Summary ---
:1955 Author Organization [facility] Address [address] [place] [address] Phone Care Team Providers Name Role Phone [...]
--- OUTSIDE RECORDS SUMMARY | 2022-05-16 09:10 | XMS_ITS | Clinical Summary ---
:1955 Author Organization [facility] [place] [address] Care Team Providers Name Role Phone Ana Mayers Unavailable Alex Mata MD Primary Care Provider [phone] Allergies Active Allergy Reactions Severity Noted Date Comments Blood-Group Specific Other - Describe In 04/19/2021 Patient has Levi saucedo Substance Comment Field (Fya) antibody . Blood products may be delayed. Dra renee patient 24 hour s prior to transfusion. Fo r [employer] testing, draw o ne red top and [...] 04/19/2021 6:40 AM CDT Plan of Treatment Upcoming Encounters Date Type Specialty Care Team Description 05/31/2022 Cardiac Device Check Health Maintenance Due Date Last Done Comments [...] PCV) COVID-19 vaccine series (3 - Booster 11/09/2020 09/14/2020, 08/20/2020 for Pfizer series) Influenza for age 65+ 03/24/2022 03/25/2011, 05/24/2006 Tdap Completed 12/26/2008, 09/01/2006 Medical Devices Implanted Type Area Paper Baler Device Shelf Model / Identifier Expiration Serial / Date Lot Standard Pacemaker-12/21/2012 Standard Medtronic [id number] / Implanted: 12/21/2012 by Judson Jenkins MD (Quantity not on file) Pacemaker [id number] / Results Not on filefrom Last 3 [...] 12 months since positive culture): 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 [id number] 1989-Prese C/O MD [employer] [address] [place] [address] WC WORKERS COMP [facility] [id number] 1989-Prese C/O [employer] [address] [place] [address] MEDICARE PART A - MEDICARE PART [id number] 1991-Presen ATTN: CLAIMS HB USE ONLY A HB ONLY t [address] [place] [address] [facility] MR [id number] 2020-Presen [address] [address] [place] [address] Khanh Rene Workers Comp Self 1955 [id number] [employer]Home) [place] [id number] Khanh Rene Workers Comp Self 1955 [id number] [employer] [address] [place]ELINA OLVERAMICHELLE HAMMONDS [id number] Khanh Rene Personal/Family Self 1955 1 [address] [employer] (Home) CELINA CEBALLOSMICHELLE [place] [address] Advance Directives Latest Code Status on File Code Status Date Activated Date Inactivated Comments Full Code 03/05/2020 6:59 AM 03/09/2020 8:07 PM Code Status Discussion: Not Discussed Full Code 04/25/2016 3:57 PM 05/10/2016 8:47 PM Full Code 2016 6:44 AM 03/14/2016 5:37 PM Full Code 12/16/2015 12:49 PM 12/25/2015 1:24 PM Full Code 12/15/2015 3:46 PM 12/16/2015 12:49 PM Care Teams Safety Person Relationship Specialty Start Date End Date Alex Mata MD PCP - General Family Practice 02/04/201999 [place] [address] Ana Mayers Nurse Practitioner 03/02/[address] [place] [address]
--- OUTSIDE RECORDS SUMMARY | 2022-05-16 09:10 | XMS_ITS | Encounter Summary ---
:1955 Author Organization [facility] Address [address] [place] [address] Phone Care Team Providers Name Role Phone Unavailable Primary Care Provider Unavailable Encounter Details Date Type Department Care Team Description 07/03/1995 Orders Only [facility] [place] [address] [place], [place] [address] Social History Tobacco Use Types Packs/Day Years Used Date Smoking Tobacco: Never Assessed Sex Assigned at Date Recorded Not on file documented as of this encounter Plan of Treatment Not on filedocumented as of this encounter Procedures Procedure Name Priority Date/Time Associated Diagnosis Comme nts XR COCCYX AP & LAT Routine 07/03/1995 2:10 PM Res ults for this ELECTRICAL WORKER procedure are i n the results section. documented in this encounter Results XR COCCYX AP & LAT (07/03/1995 2:10 PM ELECTRICAL WORKER) Anatomical Region Laterality Modality Lumbar Spine Computed Radiography Specimen (Source) Anatomical Collection Method Collection Time Re ceived Time Location / / Volume Laterality 07/03/1995 2:10 PM ELECTRICAL WORKER Impressions 07/05/1995 12:33 PM ELECTRICAL WORKER : ??Please see Sacrum report dated 07/03/95 1410. ASI END: RELEASE RESULTS: (Y) END RESULT: IMPRESSION Narrative 07/05/1995 12:33 PM ELECTRICAL WORKER Final Report EXAM: ?? COCCYX AP & [...]
--- OUTSIDE RECORDS SUMMARY | 2022-05-16 09:10 | XMS_ITS | Encounter Summary ---
:1955 Author Organization [facility] Address [address] [place], [place] [address] [address] Phone Care Team Providers Name Role Phone Unavailable Primary Care Provider Unavailable Encounter Details Date Type Department Care Team Description 04/03/1997 Orders Only [facility] Ultrasound [address] [place], [place] [address] Social History Tobacco Use Types [...] CDT Final Report EXAM: ?? RENAL US: AUGUSTINE KIDNEYS ?- ??04/03/1997 01:10PM ?? EXAM: ??RENAL [...] - 03/10/2006 Final Report EXAM: RENAL US: AUGUSTINE KIDNEYS - 997 01:10PM EXAM: RENAL ULTRASOUND [...]
--- OUTSIDE RECORDS SUMMARY | 2022-05-16 09:10 | XMS_ITS | Encounter Summary ---
:1955 Author Organization [facility] Address [address] [place] [address] Phone Care Team Providers Name Role Phone Unavailable Primary Care Provider Unavailable Encounter Details Date Type Department Care Team Description 07/03/1995 Orders Only [facility] [address] [place], [place] [address] Social History Tobacco Use Types Packs/Day Years Used Date Smoking Tobacco: Never Assessed Sex Assigned at Date Recorded Not on file documented as of this encounter Plan of Treatment Not on filedocumented as of this encounter Procedures Procedure Name Priority Date/Time Associated Diagnosis Comme nts XR SACRUM AP & LAT Routine 07/03/1995 2:10 PM Res ults for this COPPING MACHINE OPERATOR procedure are i n the results section. XR COCCYX AP & LAT Routine 07/03/1995 2:10 PM Res ults for this COPPING MACHINE OPERATOR procedure are i n the results section. documented in this encounter Results XR COCCYX AP & LAT (07/03/1995 2:10 PM COPPING MACHINE OPERATOR) Anatomical Region Laterality Modality Lumbar Spine Computed Radiography Specimen (Source) Anatomical Collection Method Collection Time Re ceived Time Location / / Volume Laterality 07/03/1995 2:10 PM COPPING MACHINE OPERATOR Impressions 07/05/1995 12:33 PM COPPING MACHINE OPERATOR : ??Please see Sacrum report dated 07/03/95 1410. ASI END: RELEASE RESULTS: (Y) END RESULT: IMPRESSION Narrative 07/05/1995 12:33 PM COPPING MACHINE OPERATOR Final Report EXAM: ?? COCCYX AP [...] END: RELEASE RESULTS: (Y) END RESULT: IMPRESSION Bbuba Tavarez MD X-RAY XR SACRUM AP & LAT (07/03/1995 2:10 PM COPPING MACHINE OPERATOR) Anatomical Region Laterality Modality Lumbar Spine Computed Radiography Specimen (Source) Anatomical Collection Method Collection Time Re ceived Time Location / / Volume Laterality 07/03/1995 2:10 PM COPPING MACHINE OPERATOR Impressions 07/05/1995 12:33 PM COPPING MACHINE OPERATOR : ??Evidence of bone loss or destruction [...] END RESULT: IMPRESSION Narrative 07/05/1995 12:33 PM COPPING MACHINE OPERATOR Final Report EXAM: ?? SACRUM AP & [...]
--- OUTSIDE RECORDS SUMMARY | 2022-05-16 09:10 | XMS_ITS | Encounter Summary ---
:1955 Author Organization [facility] Address [address] [place], [place] [address]. [place] [address] Phone Care Team Providers Name Role Phone Unavailable Primary Care Provider Unavailable Encounter Details Date Type Department Care Team Description 12/09/1998 Orders Only [facility] MRI G[address] [place], [place] [address] Social History Tobacco Use Types [...]
--- OUTSIDE RECORDS SUMMARY | 2022-05-16 09:10 | XMS_ITS ---
:1955 Author Care Team Providers Name Role Phone CHETNA MERAZ MD Primary Care Provider [phone] ANN MCLAININA Template Worker [phone] Allergies Code Code System Name Reaction Severity [...] MOUTH ONCE A DAY FOR 10 DAYS caclkmkd-sartrpxef-dgyosgbbl 3.5 mg-10,000 unit/mL-1 % ear d rops,susp [...] Name Performed by ? 09/27/2021 US, Kidney [facility] Radiology Department [address] [place] [address] (Work Place) Results Lab Results Date Name Specimen Result Interpretation Description Value Range Status Address ? 05/06/2021 Culture, BLDV ABNORMAL Final Report microbiology ? Final [place] Urine results Urology [facility] Lab: [address], [place] 05/06/2021 Urinalysis ? No ? ? ? , Dipstick observation recorded. 02/18/2021 Culture, UR ABNORMAL Final Report microbiology ? Final [place] Urine results [facility] [place] Lab: [address], [place] ? Urinalysis ? Color-Status Yellow ? ? [...] ? ? ? Sp 1.015 ? ? [place]-Statu s ? ? ? Nitrates-Sta positive ? ? tus ? ? ? Blood-Status Trace ? Leuko-Status Large ? ? Past Encounters 09/27/2021 Neurogenic Bladder; Spinal Cord Injury; Spasm of Bladder; Recurrent Urinary Tract Infection Jono Pagan MD: [address] [place] [address], Ph. 05/06/2021 Abnormal Urine Jono Pagan MD: [address] [place] [address], Ph. 02/18/2021 Neurogenic Bladder; Spinal Cord Injury; Spasm of Bladder; Recurrent Urinary Tract Infection; Acute Urinary Tract Infection Jono Pagan MD: [address] [place] [address], Ph. Social History Tobacco Smoking Status Former [...]
--- OUTSIDE RECORDS SUMMARY | 2022-05-16 09:10 | XMS_ITS | Encounter Summary ---
:1955 Author Organization [facility] Address [address] [place] [address] Phone Care Team Providers Name Role Phone [...]
== END 2022-05-16 09:01 | disposition home or self-care (01) ==
LOC: WOUND 09:00
PROVIDERS: PCP Family Medicine; Visit Provider Nurse Practitioner Family
DX: L89.614 Pressure ulcer of right heel, stage 4 (principal); L89.894 Pressure ulcer of other site, stage 4; L89.513 Pressure ulcer of right ankle, stage 3; I73.9 Peripheral vascular disease, unspecified; Z99.3 Dependence on wheelchair
CPT/HCPCS: 11043; 11044; 11046; 11047

== ENCOUNTER 2022-05-16 09:54 | Outpatient (CLI) | payer OTHER, SELFPAY ==
--- OUTSIDE RECORDS SUMMARY | 2022-05-16 09:59 | XMS_ITS | Encounter Summary ---
:1955 Author Organization [facility] Address [address] [place] [address] Phone Care Team Providers Name Role Phone Lila Clay PT Unavailable Reason for Visit Prior Authorization (Routine) - Closed Specialty Diagnoses / Procedures Referred By Contact Refer red To Contact Physical Therapy / Diagnoses Quadriplegia () At high risk for skin breakdown Impaired mobility Provider, Outside Lila Clay, PHYSICAL MEDICINE AND Procedures PT TREATMENT PLAN OUTSIDE PROVIDER PT [facility] [place] [address] [place] [address] Phone: Fax: Referral ID Status Reason Start Date Expiration Date Visits Requ ested Visits Authorized [id number] Closed 05/05/2021 01/20/2022 12 12 Encounter Details Date Type Department Care Team Description 09/01/2021 Hospital Encounter Clinic & Specialty Lila Clay, No [facility] House Steward/Stewardess apy PT [address] [place] [address] [address] [place], [place] [phone] [address] Social History Tobacco Use Types Packs/Day Years [...] items have been addressed. Lila Clay PT [facility] License: #[id number] Pager: [phone] Office: [phone] OR INFORMATION SECURITY ANALYST documented in this encounter Plan of Treatment Not on filedocumented as of this encounter Visit Diagnoses Not on filedocumented in this encounter Care Teams Dukey Rider Relationship Specialty Start Date End Date Lila Clay, PT Physical Therapist Physical Therapy 04/05/21 [address] [place] [address] documented as of this encounter
--- OUTSIDE RECORDS SUMMARY | 2022-05-16 09:59 | XMS_ITS | Encounter Summary ---
:1955 Author Organization [facility] Address [address] [place] [address] Phone Care Team Providers Name Role Phone Provider, Outside Primary Care Provider Unavailable Reason for Visit Reason Onset Date Comments Refill Request 01/12/2018 Encounter Details Date Type Department Care Team Description 01/12/2018 Refill [facility] Monty Garcia MD Refill Request Urology Clinic [address] [place] [address] [address] [place], [place] [address] [phone] Social History Tobacco Use Types Packs/Day Years [...] on filedocumented in this encounter Care Teams Rooming House Keeper Relationship Specialty Start Date End Date Provider, Outside PCP - General 03/13/09 10/22/18 [place] [address] documented as of this encounter
--- OUTSIDE RECORDS SUMMARY | 2022-05-16 09:59 | XMS_ITS | Encounter Summary ---
:1955 Author Organization [facility] Address [address] [place] [address] Phone Care Team Providers Name Role Phone Unavailable Primary Care Provider Unavailable Reason for Visit Reason Comments Other Encounter Details Date Type Department Care Team Description 03/27/2020 Refill Clinic [facility]ty Center Monty Garcia MD Other Urology Clinic [address] [place] [id number] [place] [address] [phone] Social History Tobacco Use Types Packs/Day Years [...]
--- OUTSIDE RECORDS SUMMARY | 2022-05-16 09:59 | XMS_ITS | Encounter Summary ---
:1955 Author Organization [facility] Address [address] [place] [address] Phone Care Team Providers Name Role Phone Hallie Clay PT Unavailable Reason for Referral Prior Authorization (Routine) - Closed Specialty Diagnoses / Procedures Referred By Contact Refer red To Contact Physical Therapy / Diagnoses Quadriplegia () At high risk for skin breakdown Impaired mobility Provider, Outside Hallie Clay, PHYSICAL MEDICINE AND Procedures PT TREATMENT PLAN OUTSIDE PROVIDER PT REHAB [place], [place] [id number] [place] [address] Phone: Fax: Referral ID Status Reason Start Date Expiration Date Visits Requ ested Visits Authorized [id number] Closed 05/05/2021 01/20/2022 12 12 TESTER Reason for Visit Prior Authorization (Routine) - Closed Specialty Diagnoses / Procedures Referred By Contact Refer red To Contact Physical Therapy / Diagnoses Quadriplegia () At high risk for skin breakdown Impaired mobility Provider, Outside Hallie Clay, PHYSICAL MEDICINE AND Procedures PT TREATMENT PLAN OUTSIDE PROVIDER PT REHAB [place], [place] [id number] [place] [address] Phone: Fax: Referral ID Status Reason Start Date Expiration Date Visits Requ ested Visits Authorized [id number] Closed 05/05/2021 01/20/2022 12 12 Encounter Details Date Type Department Care Team Description 07/14/2021 Hospital Encounter Clinic & Specialty Provider, [place] [address] Center Development Administrator apHallie Hopkins, PT [address] [address] Social History Tobacco Use Types [...] Signature: Date: 07/14/2021 Date: Please return to: [facility] Physical Therapy [address] [address] RECERTIFICATION SUMMARY New Recertification period: 07/14/21 to [...] Recent Hospitalization:??None?? Referring Provider:?? MD Yamile Alves, HISTOLOGIC TECHNICIAN ?? Current Precautions/Contraindications:?At high risk for skin breakdown, s/p flap surgery, currentpressure injuries on feet [facility] Automotive Professional:?no ?? Patient gave two identifiers for Check 2 for Safety Total Treatment Time: 55 Min ?? Pain: No significant complaints during session ?? S: Pt presents to his PT session in his [facility], independently. Also present: Matthew Ricketts/[employer]. 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 ?? O: [Billable Units/Time] ?? (27269) Wheelchair Management: 55 min Pressure mapping completed [...] up with B UE's for having pressure employment assistant placed over, completed with CGA) +Sitting on [...] Recommend removing foam sole, and placing nonskid surface/actionscript developer bottom instead (lowest height possible) 4) Inside [...] - thank you. Hallie Clay, PT ATP [phone] [email or web address] Printed above information for patient to bring with to his manager safe as well as to his Ortho MD [...] stabilizer? Hallie Clay, PT ATP [place] License: #[id number] Pager: [phone] Office: [phone] ? Recertification Assessment of need for continued skilled physical therapy interventions: Patient continues to make steady progress toward short term and fpc goals which have been updated to reflect [...] Specific Question: Schedule with: Answer: HALLIE CLAY [[id number]] Order Specific Question: Number of Visits patient [...] Specific Question: Schedule with: Answer: HALLIE CLAY [[id number]] Order Specific Question: Number of Visits patient should be scheduled for? Answer: 1 Order Specific Question: Modalities and Procedures Answer: Procedures Order Specific Question: Procedure Answer: Functional Activities Order Specific Question: Procedure Answer: Neuromuscular Re-education Order Specific Question: Procedure Answer: Self Care/Home Management/ADL Order Specific Question: Procedure Answer: Wheelchair Management and Training Hallie Clay PT ATP Date [place] License: #[id number] Pager: [phone] Office: [phone] TESTER documented in this encounter Plan of Treatment Not on filedocumented as of this encounter Visit Diagnoses Diagnosis Quadriplegia () Quadriplegia, unspecified At high risk for skin breakdown Other specified conditions influencing h ealth status Impaired mobility Other ill-defined conditions documented in this encounter Care Teams Bilingual Branch Manager Relationship Specialty Start Date End Date Hallie Clay PT Physical Therapist Physical Therapy 04/05/[address] [place] [address] documented as of this encounter
--- OUTSIDE RECORDS SUMMARY | 2022-05-16 09:59 | XMS_ITS | Encounter Summary ---
:1955 Author Organization [facility] Address 701 [place] [address] Phone Care Team Providers Name Role Phone Provider, Outside Primary Care Provider Unavailable Reason for Visit Reason Onset Date Comments Refill Request 10/06/2016 re: Macrodantin Encounter Details Date Type Department Care Team Description 10/06/2016 Telephone [facility] Divya Avendano Refi ll Request (re: Yordy ASH Macrodantin) [address] 701 [place], [place] [address] [place], [place] [phone] [address] Social History Tobacco Use Types Packs/Day Years [...] on filedocumented in this encounter Care Teams Acquisition Editor Relationship Specialty Start Date End Date Provider, Outside PCP - General 03/13/09 10/22/18 [place] [address] documented as of this encounter
--- OUTSIDE RECORDS SUMMARY | 2022-05-16 09:59 | XMS_ITS | Encounter Summary ---
:1955 Author Organization [facility] Address 1 [place] [address] Phone Care Team Providers Name Role Phone Unavailable Primary Care Provider Unavailable Encounter Details Date Type Department Care Team Description 08/20/2020 Immunization [facility] Viral Clinic Jonathan Chu MD [address] [address] COVID-19; [address] Nurse, [facility] Vaccine 701 [place] [address] Need for vaccination [place], [place] [address] Social History Tobacco Use Types [...] with No / Unsure 08/20/2020 3:15 PM AUTOMATIC TRANSMISSION MECHANIC someone who was confirmed or suspected to have Coronavirus / COVID-19? documented as of this encounter Plan of Treatment Not on filedocumented as of this encounter Visit Diagnoses Diagnosis COVID-19 Need for vaccination Need for prophylactic vaccination and in oculation against unspecified single disease documented in this encounter
--- OUTSIDE RECORDS SUMMARY | 2022-05-16 09:59 | XMS_ITS | Encounter Summary ---
:1955 Author Organization [facility] Address [address] [place] [address] Phone Care Team Providers Name Role Phone [...] with No / Unsure 08/20/2020 3:15 PM CARE CLINICIAN someone who was confirmed or suspected to have Coronavirus / COVID-19? documented as of this encounter Plan of Treatment Not on filedocumented as of this encounter Visit Diagnoses Not on filedocumented in this encounter
--- OUTSIDE RECORDS SUMMARY | 2022-05-16 09:59 | XMS_ITS | Encounter Summary ---
:1955 Author Organization [facility] Address [address] [facility] [place] [address] Phone Care Team Providers Name Role Phone Lila Clay PT Unavailable Reason for Visit Reason Onset Date Comments Prior Authorization For Medications 09/03/2021 Boto x (onabotulinumtoxinA) Encounter Details Date Type Department Care Team Description 09/03/2021 Pharmacy Prior [facility] P1 Pharmacy Sakshi Mcmanus, Authorization [address] [facility] PharmD P1.630 701 [place], [place] [address] 5 [place], [place] [phone] Social History Tobacco Use Types Packs/Day Years [...] the patient has active primary coverage through [facility] MEDICARE [employer]VANT[facility] ([facility]). [facility] does NOT require prior authorization for BOTOX when it is given in the clinic/infusion center and billed on the medical claim (buy and bill). IMPORTANT - READ BELOW However, [facility] reimburses BOTOX only for select designated ICD-10/Diagnosis Codes. Based on review of the patient's chart, please (continue to) use the following COVERED diagnosis code for the visits in which the patient will receive BOTOX: - G82.50 or G82.54 Quadriplegia Update 01/27/2022 - Unable to get response from [facility]. Per 10/21/2021 note appears patient was going [...] on filedocumented in this encounter Care Teams Air Hose Coupler Relationship Specialty Start Date End Date Lila Clay, PT Physical Therapist Physical Therapy 04/05/[address] [place] [address] documented as of this encounter
--- OUTSIDE RECORDS SUMMARY | 2022-05-16 09:59 | XMS_ITS | Encounter Summary ---
:1955 Author Organization [facility] Address [address] [place] [address] Phone Care Team Providers Name Role Phone Lila Clay PT Unavailable Reason for Visit Prior Authorization (Routine) - Closed Specialty Diagnoses / Procedures Referred By Contact Refer red To Contact Physical Therapy / Diagnoses Quadriplegia () At high risk for skin breakdown Impaired mobility Provider, Outside Lila Clay, PHYSICAL MEDICINE AND Procedures PT TREATMENT PLAN OUTSIDE PROVIDER PT REHAB [address] [address] Phone: Fax: Referral ID Status Reason Start Date Expiration Date Visits Requ ested Visits Authorized [id number] Closed 05/05/2021 01/20/2022 12 12 Encounter Details Date Type Department Care Team Description 06/09/2021 Hospital Encounter Clinic & Specialty Provider, Outside OUTSIDE PROVIDER [address] Engine Lathe Set Up Operator Tool apy Lila Clay, PT [phone] [place] [address] Social History Tobacco Use Types Packs/Day [...] Hospitalization: None Referring Provider: MD Yamile Alves, INFORMATION SYSTEMS ARCHITECT ?? Current Precautions/Contraindications: At high risk for skin breakdown, s/p flap surgery, current pressure injuries on feet [facility] Projects Manager: no Patient gave two identifiers for Check 2 for Safety Total Treatment Time: 70 Min Pain: No significant complaints during session S: Pt presents to his PT session in his MWC, independently. Also present: Matthew Ricketts/[employer]. Last 30 min of the session, patient's QRC (Raquel Gamino, RN, PHN, MA P: [phone], F: [phone]) No significant changes; still attends wound clinic for B foot injuries weekly - missed yesterday so will be seen later this week. Pt agreed that he would like to try to adjust 1-2 items at a time; assess tolerance, and then move forward with additional changes as appropriate. Noticed that additional 'dump' is 'different' but tolerable. O: [Billable Units/Time] (36829) Wheelchair Management: 70 min Pt remained in [...] by 2? *Will request a demo from [facility], as PT looked and did not [...] require a new back frame to the [facility], but would provide additional depth to the [...] to be able to transfer in/out of [facility] independently. At end of session, all agreed [...] date include: Increased posterior seat dump on [facility] this date and pt tolerated well - [...] be obtained before then? Lila Clay PT [facility] License: #[id number] Pager: [phone] Office: [phone] E COMMERCE WEB DEVELOPER documented in this encounter Plan of Treatment Not on filedocumented as of this encounter Visit Diagnoses Not on filedocumented in this encounter Care Teams Lumber Checker Relationship Specialty Start Date End Date Lila Clay, PT Physical Therapist Physical Therapy 04/05/21 [address] [place] [address] documented as of this encounter
--- OUTSIDE RECORDS SUMMARY | 2022-05-16 09:59 | XMS_ITS | Encounter Summary ---
:1955 Author Organization [facility] Address [address] [place] [address] Phone Care Team Providers Name Role Phone Lila Clay PT Unavailable Reason for Visit Prior Authorization (Routine) - Closed Specialty Diagnoses / Procedures Referred By Contact Refer red To Contact Physical Therapy / Diagnoses Quadriplegia () At high risk for skin breakdown Impaired mobility Provider, Outside Lila Clay, PHYSICAL MEDICINE AND Procedures PT TREATMENT PLAN OUTSIDE PROVIDER PT REHAB [address] [address] Phone: Fax: Referral ID Status Reason Start Date Expiration Date Visits Requ ested Visits Authorized [id number] Closed 05/05/2021 01/20/2022 12 12 Encounter Details Date Type Department Care Team Description 06/02/2021 Hospital Encounter Clinic & Specialty Provider, Outside OUTSIDE PROVIDER [address] Belting Cutter apy Lila Clay, PT [phone] [place] [address] Social History Tobacco Use Types Packs/Day [...] Hospitalization: None Referring Provider: MD Yamile Alves, TEAM GUIDE ?? Current Precautions/Contraindications: At high risk for skin breakdown, s/p flap surgery, current pressure injuries on feet [facility] Java Technical Manager: no Patient gave two identifiers for [...] additional changes as appropriate. O: [Billable Units/Time] (98244) Wheelchair Management: 60 min Transfer MWC/mat table [...] passive IR/ER WNL. Adjustments made to patient's [facility] this date: +Increased posterior seat dump by 1 +lowered footplates B by approximately 1 Pt returned to sitting in [facility] at end of session, able to self [...] Clay, PT ATP [place] License: #[id number] Pager: [phone] Office: [phone] ING SLINGER documented in this encounter Plan of Treatment Not on filedocumented as of this encounter Visit Diagnoses Not on filedocumented in this encounter Care Teams Christmas Tree Farmer Relationship Specialty Start Date End Date Lila Clay, PT Physical Therapist Physical Therapy 04/05/21 [address] [place] [address] documented as of this encounter
--- OUTSIDE RECORDS SUMMARY | 2022-05-16 09:59 | XMS_ITS | Encounter Summary ---
:1955 Author Organization [facility] Address 1 [place] [address] Phone Care Team Providers Name Role Phone Provider, Outside Primary Care Provider Unavailable Reason for Visit Reason Onset Date Comments Refill Request 12/23/2016 Encounter Details Date Type Department Care Team Description 12/23/2016 Refill [facility] Divya Caraballo RN Refill Request [address] [facility] [place], [place] [address] 4 [place] [address] Social History Tobacco Use Types Packs/Day Years [...] filedocumented in this encounter Care Teams Manager Of Case Relationship Specialty Start Date End Date Provider, Outside PCP - General 03/13/09 10/22/18 [place] [address] documented as of this encounter
--- OUTSIDE RECORDS SUMMARY | 2022-05-16 09:59 | XMS_ITS | Encounter Summary ---
:1955 [address] [facility] Address [address] [place] [address] Phone Care Team Providers Name Role Phone Lila Clay PT Unavailable Reason for Visit Reason Comments Referral Consult/Test/Treat (Routine) - Closed Specialty Diagnoses / Procedures Referred By Contact Refer red To Contact Physical Medicine and Diagnoses Paraplegia, unspecified paraplegia from previous in [place] 33 yrs James Nava Csc [facility] / PHYSICAL MD [place] [address] [place] [address] MEDICINE AND REHAB [address] [place] [phone] Fax: Referral ID Status Reason Start Date Expiration Date Visits V isits Requested Authorized [id number] Closed Created in 07/20/2021 07/20/2022 1 1 PAS Encounter Details Date Type Department Care Team Description 09/02/2021 Office Visit Clinic & Specialty Center Dariel Israel uadriplegia, C5-C7 incomplete () (Primary Dx); Physical Medicine & A, PA-C Muscle spasticity Rehabilitation Clini c [address] [place] [phone] Social History Tobacco Use [...] Comments Blood Pressure 135/74 09/02/2021 8:12 AM CATERER'S AIDE Pulse 72 09/02/2021 8:12 AM CATERER'S AIDE Temperature - - Respiratory Rate - - Oxygen Saturation - - Inhaled Oxygen Concentration - - Weight - - Height - - Body Mass Index - - documented in this encounter Progress Notes Dariel Israel PA-C - 09/02/2021 8:00 AM CST [facility] Physical Medicine & Rehabilitation Clinic [...] is followed by a wound clinic in [place]. He just had a wheelchair evaluation in physical therapy here at [place]. He stated that around 2 to 3 [...] 5/5 EE 5/5 5/5 WE 4/5 4/5 Advisory Services Associate 3/5 3/5 Strength bilateral lower extremities 0/5 [...] service, including pre-visit review of separatelyobtained history, [id number] interaction performing medically appropriate physical exam, patient counseling/education, interpretation of diagnostic results, care coordination and documentation was 46 minutes. Dictation Disclaimer: Notes are completed with voice-recognition dictation software. Errors are generally corrected in real time. Please contact me via finalsite staff message if you note any errors requiring clarification. RER'S AIDE documented in this encounter Plan of Treatment Scheduled Orders Name Type Priority Associated Diagnoses Order S chedule EMG - BOTOX EMG Routine Muscle spasticity Ordered: 0 09/02/2021 documented as of this encounter Procedures Procedure Name Priority Date/Time Associated Comments Diagnosis CARE EVERYWHERE 09/07/2021 11:04 Results for this AUTHORIZATION AM CATERER'S AIDE procedure are in the results section. CARE EVERYWHERE 09/07/2021 11:04 Results for this AUTHORIZATION AM CATERER'S AIDE procedure are in the results section. documented in this encounter Results CARE EVERYWHERE AUTHORIZATION (09/07/2021 11:04 AM CATERER'S AIDE) Narrative This result has an attachment that is no t available. Him Provider SCANNED CONSENTS CARE EVERYWHERE AUTHORIZATION (09/07/2021 11:04 AM CATERER'S AIDE) Narrative This result has an attachment that is no t available. Him Provider SCANNED CONSENTS documented in this encounter Visit Diagnoses Diagnosis Quadriplegia, C5-C7 incomplete () - Pr imary Quadriplegia, C5-C7, incomplete Muscle spasticity Spasm of muscle documented in this encounter Care Teams Ruby Developer Relationship Specialty Start Date End Date Lila Clay, PT Physical Therapist Physical Therapy 04/05/21 [address] [place] [address] documented as of this encounter
--- OUTSIDE RECORDS SUMMARY | 2022-05-16 09:59 | XMS_ITS | Encounter Summary ---
:1955 Author Organization [facility] Address 1 [place] [address] Phone Care Team Providers Name Role Phone Unavailable Primary Care Provider Unavailable Reason for Visit Reason Onset Date Comments Refill Request 03/22/2019 propanthelin Encounter Details Date Type Department Care Team Description 03/22/2019 Refill Clinic & Specialty Monty Garcia MD Refill Request Center Urology Clini c 701 [facility] P[facility] (propanthelin) [address] [phone] (Wo rk) Social History Tobacco Use Types [...]
--- OUTSIDE RECORDS SUMMARY | 2022-05-16 09:59 | XMS_ITS | Encounter Summary ---
:1955 Author Organization [facility] Address [address] [place] [address] Phone Care Team Providers Name Role Phone Unavailable Primary Care Provider Unavailable Encounter Details Date Type Department Care Team Description 09/14/2020 Immunization [facility] Viral Clinic Jonathan Chu MD [address] [phone] Need for vaccination [address] Nurse, [facility] Vaccine 701 [place] [address] (Primary Dx) [place], [place] [address] Social History Tobacco Use Types [...] with No / Unsure 08/20/2020 3:15 PM V BELT CURER someone who was confirmed or suspected to have Coronavirus / COVID-19? documented as of this encounter Plan of Treatment Not on filedocumented as of this encounter Visit Diagnoses Diagnosis Need for vaccination - Primary Need for prophylactic vaccination and in oculation against unspecified single disease documented in this encounter
--- OUTSIDE RECORDS SUMMARY | 2022-05-16 09:59 | XMS_ITS | Encounter Summary ---
:1955 Author Organization [facility] Address 1 [place] [address] Phone Care Team Providers Name Role Phone Provider, Outside Primary Care Provider Unavailable Reason for Visit Reason Onset Date Comments Other 2018 Encounter Details Date Type Department Care Team Description 2018 Telephone Clinic & Specialty Monty Garcia MD Appointment Center Urology Clini c 701 [facility] P5 Cancellation [address] [phone] (Wo rk) Social History Tobacco Use Types [...] on filedocumented in this encounter Care Teams Fuel Manager Relationship Specialty Start Date End Date Provider, Outside PCP - General 8/21/09 4/1/19 [place] [address] documented as of this encounter
--- OUTSIDE RECORDS SUMMARY | 2022-05-16 09:59 | XMS_ITS | Encounter Summary ---
:1955 Author Organization [facility] Address [address] [place] [address] Phone Care Team Providers Name Role Phone Provider, Outside Primary Care Provider Unavailable Reason for Visit Reason Onset Date Comments Medication Refill 11/11/2016 propantheline (PRO-B ANTHINE) Encounter Details Date Type Department Care Team Description 11/11/2016 Refill [facility] Selena Garcia MD Medication Refill [place] 701 [facility] P5 (propantheline [address] [place], [place] (PRO-BANTHINE) ) [place], [place] [phone] (Wo rk) Social History Tobacco Use Types [...] mg oral tablet Pharmacy Name and Location: [facility] [address] [place] [phone] - [phone] - [address] [place] [address] Phone number for return call: .[phone] Did caller contact the pharmacy? yes: pharmacy [...] filedocumented in this encounter Care Teams Route Sales Delivery Drivers Supervisor Relationship Specialty Start Date End Date Provider, Outside PCP - General 03/13/09 10/22/18 [place] [address] documented as of this encounter
--- OUTSIDE RECORDS SUMMARY | 2022-05-16 09:59 | XMS_ITS | Encounter Summary ---
:1955 Author Organization [facility] Address [address] [place] [address] Phone Care Team Providers Name Role Phone Unavailable Primary Care Provider Unavailable Encounter Details Date Type Department Care Team Description 08/18/2020 Orders Only [facility] Viral Cl Jonathan Sierra MD COVID-19 [address] [facility] [address] 701 [facility] G5 [place], [place] [address] [place], [place] [phone] (Wo rk) Social History Tobacco Use Types [...] with No / Unsure 08/20/2020 3:15 PM BUHR DRESSER someone who was confirmed or suspected to have Coronavirus / COVID-19? documented as of this encounter Plan of Treatment Not on filedocumented as of this encounter Visit Diagnoses Diagnosis COVID-19 documented in this encounter
--- OUTSIDE RECORDS SUMMARY | 2022-05-16 09:59 | XMS_ITS | Clinical Summary ---
:1955 Author Organization [facility] Address [address] [place] [address] Phone Care Team Providers Name Role Phone Lila Clay PT Unavailable Source Comments Silent Communication is fully rolled out on [employer]. Last update 12/26/08.[facility] Allergies Active Allergy Reactions Severity Noted Date [...] Comments Blood Pressure 135/74 09/02/2021 8:12 AM COMMERCIAL REAL ESTATE [place] Pulse 72 09/02/2021 8:12 AM COMMERCIAL REAL ESTATE [place] Temperature 36.2 ??C (97.1 ??F) 09/15/2016 8:09 AM COMMERCIAL REAL ESTATE [place]GAL Respiratory Rate 14 04/20/2010 1:39 PM CDT [...] e / Group Dates [facility] [id number] 1989-Pre [phone] [address] Work Comp [employer] sent [address] [employer] [place] [address] [facility] COMPLETE [id number] 2020-Pres [address] [facility] (MEDICARE ent [id number] Managed Care ADVANTAGE) [place] [address] [id number] Workers Comp Employer 1955 % Cb ert (Home) [place] [address] MICHELLE SANTOS [id number] Care Teams Senior Computer Specialist Relationship Specialty Start Date End Date Lila Clay, PT Physical Therapist Physical Therapy 04/05/21 [address] [place] [address]
--- OUTSIDE RECORDS SUMMARY | 2022-05-16 09:59 | XMS_ITS | Encounter Summary ---
:1955 Author Organization [facility] Address [address] [place] [address] Phone Care Team Providers Name Role Phone Provider, Outside Primary Care Provider Unavailable Encounter Details Date Type Department Care Team Description 01/02/2018 Nurse Triage [facility] Farida Dueñas, embroidery patternmaker Clinic [address] [address] [place], [place] [address] Social History Tobacco Use [...] on filedocumented in this encounter Care Teams Hydrogen Operator Relationship Specialty Start Date End Date Provider, Outside PCP - General 03/13/09 10/22/18 [place] [address] documented as of this encounter
--- OUTSIDE RECORDS SUMMARY | 2022-05-16 09:59 | XMS_ITS | Encounter Summary ---
:1955 Author Organization [facility] Address 1 [place] [address] Phone Care Team Providers Name Role Phone Provider, Outside Primary Care Provider Unavailable Encounter Details Date Type Department Care Team Description 10/07/2016 Hospital Encounter [facility] Ultrasound Monty Garcia MD [address] [place] [address] [address] [place], [place] [phone] (Wo rk) Social History Tobacco Use Types [...] NOS documented in this encounter Care Teams Canceling Machine Operator Relationship Specialty Start Date End Date Provider, Outside PCP - General 03/13/09 10/22/18 [place] [address] documented as of this encounter
--- OUTSIDE RECORDS SUMMARY | 2022-05-16 09:59 | XMS_ITS | Encounter Summary ---
:1955 Author Organization [facility] Address 1 [place] [address] Phone Care Team Providers Name Role Phone Hallie Clay PT Unavailable Encounter Details Date Type Department Care Team Description 05/05/2021 Hospital Encounter Clinic & Specialty Alex [place] [address] [place] [address] [place] [address] Center Line Technician apy Hallie Clay, PT [address] [address] Social History Tobacco Use Types [...] Provider: Dr. Alex Mata, MD Yamile Conway, CERTIFIED COURT/MEDICAL INTERPRETER Current Precautions/Contraindications: At high risk for skin breakdown, s/p flap surgery, current pressure injuries on feet [facility] Extrusion Press Supervisor: no DIAGNOSIS Patient Active Problem List Diagnosis [...] prefer to work is BLANQUITA Brown of Project Manager. The vendor is not present during today's evaluation. 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 He has utilized a manual wheelchair as his primary means of mobility since then. He has a significant pressure injury history, including on his sacral area and feet. He received his current MWC through Project Manager on 10/06/20. SUBJECTIVE Patient Complaints: I just [...] Function: Randy will cont to use his [facility] and rehab accessories to complete all MRADL's, [...] independently (with hand controls) while seated in [facility]) Does it fold/disassemble for transportation?: Yes Is [...] Flexion Elbow Extension Wrist Flexion Wrist Extension Oracle Erp Developer Using BERNY hand dynamometer Lower Extremity Right MMT Left MMT WFL 0/5 0/5 Hip Flexion Hip Extension Hip Abduction Knee Flexion Knee Extension Dorsiflexion Inversion Eversion Plantar Flexion Great toe extension Normative audio visual director strength values for Berny dynamometer for clinical [...] the wheelchair/mobility device?: Yes Wheelchair Management/Training (CPT 32318): 15 min during session(s) Pressure mapping completed [...] Specific Question: Schedule with: Answer: HALLIE CLAY [[id number]] Order Specific Question: Number of Visits patient [...] conditions documented in this encounter Care Teams Net Maker Relationship Specialty Start Date End Date Hallie Clay, PT Physical Therapist Physical Therapy 04/05/21 [address] [place] [address] documented as of this encounter
--- OUTSIDE RECORDS SUMMARY | 2022-05-16 09:59 | XMS_ITS | Encounter Summary ---
:1955 Author Organization [facility] Address [address] [place] [address] Phone Care Team Providers Name Role Phone [...] on filedocumented in this encounter Care Teams Cost And Risk Analysis Manager Relationship Specialty Start Date End Date Lila Clay, PT Physical Therapist Physical Therapy 04/05/21 [address] [place] [address] documented as of this encounter
--- OUTSIDE RECORDS SUMMARY | 2022-05-16 09:59 | XMS_ITS | Encounter Summary ---
:1955 Author Organization [facility] Address [address] [place] [address] Phone Care Team Providers Name Role Phone Lila Clay PT Unavailable Reason for Visit Prior Authorization (Routine) - Closed Specialty Diagnoses / Procedures Referred By Contact Refer red To Contact Physical Therapy / Diagnoses Quadriplegia () At high risk for skin breakdown Impaired mobility Provider, Outside Lila Clay, PHYSICAL MEDICINE AND Procedures PT TREATMENT PLAN OUTSIDE PROVIDER PT REHAB [address] [address] Phone: Fax: Referral ID Status Reason Start Date Expiration Date Visits Requ ested Visits Authorized [id number] Closed 05/05/2021 01/20/2022 12 12 Encounter Details Date Type Department Care Team Description 08/11/2021 Hospital Encounter Clinic & Specialty Provider, Outside [place] [address] No Show Center Manager Qa apy Lila Clay, PT [address] [place] [address] Social History Tobacco Use Types Packs/Day [...] request, with this therapist. Lila Clay PT [facility] License: #[id number] Pager: [phone] Office: [phone] ONAL DEVELOPMENT MENTOR documented in this encounter Plan of Treatment Not on filedocumented as of this encounter Visit Diagnoses Not on filedocumented in this encounter Care Teams Miniature Set Constructor Relationship Specialty Start Date End Date Lila Clay, PT Physical Therapist Physical Therapy 04/05/21 [address] [place] [address] documented as of this encounter
--- OUTSIDE RECORDS SUMMARY | 2022-05-16 10:00 | XMS_ITS | Encounter Summary ---
:1955 Author Organization [facility] Address [address] [place] [address] Phone Care Team Providers Name Role Phone Provider, Outside Primary Care Provider Unavailable Reason for Visit Reason Comments Follow-up Encounter Details Date Type Department Care Team Description 09/03/2012 Office Visit [facility] Pooja Krueger MD 701 [facility] [address] [place], [place] [id number] Neurogenic bladder [place] Omar Savage MD Research Only (Primary Dx) [address] [place], [place] [address] Social History Tobacco Use Types [...] Comments Blood Pressure 112/64 09/03/2012 1:52 PM COMMAND AND CONTROL SPECIALIST Pulse 68 09/03/2012 1:52 PM COMMAND AND CONTROL SPECIALIST Temperature - - Respiratory Rate - - Oxygen Saturation - - Inhaled Oxygen Concentration - - Weight - - Height - - Body Mass Index - - documented in this encounter Progress Notes Omar Savage MD - 09/04/2012 8:32 PM CST [facility] [address] [facility] [place] [address] (fax) [facility]#: [id number] PATIENT: MICHEAL RENE : 1955 DATE: 09/03/2012 [...] MD Staff Physician Surgery Service Received in Flame Cutting Machine Operator Helper: 09/04/2012 12:20 M: 09/04/2012 20:32 [facility]/ Voice ID: [id number] Document ID: [id number] AND AND CONTROL SPECIALIST Omar Savage MD - 09/04/2012 12:19 PM CST This office note has been dictated. AND AND CONTROL SPECIALIST documented in this encounter Plan of Treatment Not on filedocumented as of this encounter Procedures Procedure Name Priority Date/Time Associated Diagnosis Comme nts URINE CULTURE Routine 09/03/2012 2:22 PM Neurogenic bladder Re sults for this COMMAND AND CONTROL SPECIALIST procedure are i n the results section. URINALYSIS,TOTAL Routine 09/03/2012 2:22 PM Neurogenic bladder Results for this COMMAND AND CONTROL SPECIALIST procedure are i n the results section. documented in this encounter Results URINE CULTURE (09/03/2012 2:22 PM COMMAND AND CONTROL SPECIALIST) [facility] Method Time Signature Urine Cult [facility] ? PROCEDURE: MB Urine Culture ?SOURCE: Urine Midstream ?COLLECTED: 09/03/2012 14:22 ? BODY SITE: ?FREE TEXT SOURCE: ?STARTED: 09/03/2012 15:35 ? FINAL REPORT Final Report Verified:09/05/2012 13:06 50,000 - 100,000 organisms/ml Mixed gram positive arthur. No further work-up. Specimen Anatomical Collection Method Collection Time Receive d Time (Source) Location / / Volume Laterality Urine Midstream. 09/03/2012 2:22 PM 09/03 3:34 (Urine) COMMAND AND CONTROL SPECIALIST PM COMMAND AND CONTROL SPECIALIST Omar Savage MD LAB MICROBIOLOGY Performing Organization Address City/State/ZIP Code Phon e Number [facility] [place] [address] (ABNORMAL) URINALYSIS, TOTAL (09/03/2012 2:22 PM COMMAND AND CONTROL SPECIALIST) athologist Signature Color YELLOW YELLOW [facility] Appearance CLEAR CLEAR [facility] Urine Glucose NEGATIVE NEGATIVE [facility] Bili UA NEGATIVE NEGATIVE [facility] Comment: Confirmatory test not available . Ketones NEGATIVE NEGATIVE [facility] Specific [place] 1.016 1.003 - 1.030 [facility] Blood Ur NEGATIVE Neg-Trace [facility] PH Urine 6.5 5.0 - 7.0 [facility] Protein Ur NEGATIVE Neg-Trace [facility] Urobilinogen 1.0 0.2 - 1.0 EU/dL [facility] Nitrite Ur NEGATIVE NEGATIVE [facility] Leuk Est SMALL (A) Neg-Trace [facility] WBC Ur 6-20 (A) 0 - 5 perHPF [facility] RBC Ur 0-5 0 - 5 perHPF [facility] SQ EPITH 2+ 1+ [facility] Specimen Anatomical Collection Method Collection Time Receive d Time (Source) Location / / Volume Laterality Urine 09/03/2012 2:22 PM 3 2:51 COMMAND AND CONTROL SPECIALIST PM COMMAND AND CONTROL SPECIALIST Omar Savage MD LABORATORY Performing Organization Address City/State/ZIP Code Phon e Number [facility] [place] [address] documented in this encounter Visit Diagnoses Diagnosis Neurogenic bladder - Primary Neurogenic bladder, NOS documented in this encounter Care Teams Signal And Communications Maintainer Relationship Specialty Start Date End Date Provider, Outside PCP - General 03/13/09 10/22/18 [place] [address] documented as of this encounter
--- OUTSIDE RECORDS SUMMARY | 2022-05-16 10:00 | XMS_ITS | Encounter Summary ---
:1955 Author Organization [facility] Address [address] [place] [address] Phone Care Team Providers Name Role Phone Provider, Outside Primary Care Provider Unavailable Encounter Details Date Type Department Care Team Description 10/21/2014 Telephone [facility] Urology Clinic Omar Reyes MD [address] , [address] Research Only [place], [place] [address] Social History [...] on filedocumented in this encounter Care Teams Office Systems Technology Instructor Relationship Specialty Start Date End Date Provider, Outside PCP - General 03/13/09 10/22/18 [place] [address] documented as of this encounter
--- OUTSIDE RECORDS SUMMARY | 2022-05-16 10:00 | XMS_ITS | Encounter Summary ---
:1955 Author Organization [facility] Address [address] [place] [address] Phone Care Team Providers Name Role Phone Provider, Outside Primary Care Provider Unavailable Reason for Visit Reason Onset Date Comments Refill Request 07/05/2016 Encounter Details Date Type Department Care Team Description 07/05/2016 Refill [facility] Urology Clinic Divya Caraballo RN Refill Request [address] [facility], [address] [place], [place] [address] [place] [address] Social History Tobacco Use Types Packs/Day Years [...] NOS documented in this encounter Care Teams Human Resources Benefits Specialist Relationship Specialty Start Date End Date Provider, Outside PCP - General 03/13/09 10/22/18 [place] [address] documented as of this encounter
--- OUTSIDE RECORDS SUMMARY | 2022-05-16 10:00 | XMS_ITS | Encounter Summary ---
:1955 Author Organization [facility] Address [address] [place] [address] Phone Care Team Providers Name Role Phone Provider, Outside Primary Care Provider Unavailable Reason for Visit Reason Onset Date Comments Other 02/05/2016 Encounter Details Date Type Department Care Team Description 02/05/[address] [facility] Urology Clinic Selena Garcia MD plan of care [place] [address] [place] [address] [address] [facility], [address] [place] [address] [place], [place] [phone] Social History Tobacco Use Types Packs/Day Years [...] filedocumented in this encounter Care Teams Professional Development Instructor Relationship Specialty Start Date End Date Provider, Outside PCP - General 03/13/09 10/22/18 [place] [address] documented as of this encounter
--- OUTSIDE RECORDS SUMMARY | 2022-05-16 10:00 | XMS_ITS | Encounter Summary ---
:1955 Author Organization [facility] Address [address] [facility] [place] [address] Phone Care Team Providers Name Role Phone Provider, Outside Primary Care Provider Unavailable Reason for Visit Reason Comments Follow-up Encounter Details Date Type Department Care Team Description 02/14/2011 Office Visit [facility] [place] Med/Rehab Sameera Frances D ecubitus ulcer Clinic (Primary Dx) [address] [facility] [address] Mail Code [address] [place], [place] [address] [place], [place] [phone] [address] (Wo rk) Social History Tobacco Use Types [...] site documented in this encounter Care Teams Material Handling Equipment Stevedore Relationship Specialty Start Date End Date Provider, Outside PCP - General 03/13/09 10/22/18 [place] [address] documented as of this encounter
--- OUTSIDE RECORDS SUMMARY | 2022-05-16 10:00 | XMS_ITS | Encounter Summary ---
:1955 Author Organization [facility] Address [address] [place] [address] Phone Care Team Providers Name Role Phone Provider, Outside Primary Care Provider Unavailable Reason for Referral Consult/Test/Treat (Routine) - Closed Specialty Diagnoses / Procedures Referred By Contact Refer red To Contact Physical Therapy Diagnoses Decubitus ulcer Sameera Frances MD [address] Mail Code [address] [place], [place] [address] Referral ID Status Reason Start Date Expiration Date Visits Requ ested Visits Authorized [id number] Closed 01/17/2011 01/18/2012 1 1 Reason for Visit Reason Comments Neurologic Problem Encounter Details Date Type Department Care Team Description 01/17/2011 Office Visit [facility] Phys Med/Rehab Sameera Frances D ecubitus ulcer Clinic (Primary Dx) [address] Mail Code [address] [place], [place] [address] [place], [place] [phone] (Wo rk) Social History Tobacco Use Types [...] site documented in this encounter Care Teams Back Tender Cylinder Relationship Specialty Start Date End Date Provider, Outside PCP - General 03/13/09 10/22/18 [place] [address] documented as of this encounter
--- OUTSIDE RECORDS SUMMARY | 2022-05-16 10:00 | XMS_ITS | Encounter Summary ---
:1955 Author Organization [facility] Address [address] [place] [address] Phone Care Team Providers Name Role Phone Provider, Outside Primary Care Provider Unavailable Reason for Visit Reason Comments Follow-up NEUROGENIC BLADDER Encounter Details Date Type Department Care Team Description 09/15/2016 Office Visit [facility] Urology Clinic Monty Garcia Neur ogenic bladder Yordy FALCON (Primary Dx) [address] , [address] [place] [address] [address] [place], [place] [address] [phone] Social History Tobacco Use Types Packs/Day Years [...] Comments Blood Pressure 129/74 09/15/2016 8:09 AM MARINE FIRER Pulse 75 09/15/2016 8:09 AM MARINE FIRER Temperature 36.2 ??C (97.1 ??F) 09/15/2016 8:09 AM MARINE FIRER Respiratory Rate - - Oxygen Saturation - [...] fevers. Patient has had several admissions at [facility] for decubitus ulcers in the last [...] MD, 09/15/2016 9:14 AM Urology Staff Pager: [phone] NE FIRER documented in this encounter Plan of Treatment Not on filedocumented as of this encounter Visit Diagnoses Diagnosis Neurogenic bladder - Primary Neurogenic bladder, NOS documented in this encounter Care Teams Job Printer Relationship Specialty Start Date End Date Provider, Outside PCP - General 03/13/09 10/22/18 [place] [address] documented as of this encounter
--- OUTSIDE RECORDS SUMMARY | 2022-05-16 10:00 | XMS_ITS | Encounter Summary ---
:1955 Author Organization [facility] Address [address] [place] [address] Phone Care Team Providers Name Role Phone Provider, Outside Primary Care Provider Unavailable Reason for Visit Reason Comments Other Encounter Details Date Type Department Care Team Description 01/17/2012 Telephone [facility] Omar Reyes MD [address] [facility], [address] Research [place], [place] [address] Social History Tobacco Use [...] Outside Provider Comment: Expects Return Call at: [phone] documented in this encounter Plan of Treatment Not on filedocumented as of this encounter Visit Diagnoses Not on filedocumented in this encounter Care Teams Barrel Filler Head Relationship Specialty Start Date End Date Provider, Outside PCP - General 03/13/09 10/22/18 [place] [address] documented as of this encounter
--- OUTSIDE RECORDS SUMMARY | 2022-05-16 10:00 | XMS_ITS | Encounter Summary ---
:1955 Author Organization [facility] Address [address] [place] [address] Phone Care Team Providers Name Role Phone Provider, Outside Primary Care Provider Unavailable Encounter Details Date Type Department Care Team Description 02/05/2016 Orders Only [facility] Monty Garcia, Neur ogenic bladder Yordy FALCON (Primary Dx) [address] [facility] [address] [place], [place] [phone] Social History Tobacco Use Types Packs/Day Years [...] documented in this encounter Care Teams Junior Web Designer Relationship Specialty Start Date End Date Provider, Outside PCP - General 03/13/09 10/22/18 [place] [address] documented as of this encounter
--- OUTSIDE RECORDS SUMMARY | 2022-05-16 10:00 | XMS_ITS | Encounter Summary ---
:1955 Author Organization [facility] Address [address] [place] [address] Phone Care Team Providers Name Role Phone Provider, Outside Primary Care Provider Unavailable Reason for Visit Reason Comments Other Encounter Details Date Type Department Care Team Description 02/05/2016 Refill [facility] Clinic Monty Morales MD Other [address] [facility], [address] [address] [place] [address] [phone] (Wo rk) Social History Tobacco Use Types [...] on filedocumented in this encounter Care Teams Shipping/Receiving Manager Relationship Specialty Start Date End Date Provider, Outside PCP - General 03/13/09 10/22/18 [place] [address] documented as of this encounter
--- OUTSIDE RECORDS SUMMARY | 2022-05-16 10:00 | XMS_ITS | Encounter Summary ---
:1955 Author Organization [facility] Address [address] [place] [address] Phone Care Team Providers Name Role Phone Provider, Outside Primary Care Provider Unavailable Reason for Visit Reason Comments Other Encounter Details Date Type Department Care Team Description 05/22/2016 Refill [facility] Monty Morales MD Other [address] [facility], [address] [address] 4 [place] [address] [phone] (Wo rk) Social History Tobacco Use Types [...] received in Urology Clinic from the pt's [facility], for propantheline and nitrofurantoin. Records [...] NOS documented in this encounter Care Teams Lining Scrubber Relationship Specialty Start Date End Date Provider, Outside PCP - General 03/13/09 10/22/18 [place] [address] documented as of this encounter
--- OUTSIDE RECORDS SUMMARY | 2022-05-16 10:00 | XMS_ITS | Encounter Summary ---
:1955 Author Organization [facility] Address [address] [facility] [place] [place] [address] Phone Care Team Providers Name Role Phone Provider, Outside Primary Care Provider Unavailable Reason for Visit Reason Comments Follow-up Encounter Details Date Type Department Care Team Description 12/06/2010 Office Visit [facility] Phys Med/Rehab Sameera Frances U lcer () (Primary Clinic MD Dx) [address] [place] [address] [facility] [address] Mail Code [address] [place], [place] [address] [place], [place] [phone] (Wo rk) Social History Tobacco Use Types [...] site documented in this encounter Care Teams Meteorologist In Charge Relationship Specialty Start Date End Date Provider, Outside PCP - General 03/13/09 10/22/18 [place] [address] documented as of this encounter
--- OUTSIDE RECORDS SUMMARY | 2022-05-16 10:00 | XMS_ITS | Encounter Summary ---
:1955 Author Organization [facility] Address [address] [place] [address] Phone Care Team Providers Name Role Phone Provider, Outside Primary Care Provider Unavailable Reason for Visit Reason Onset Date Comments Refill Request 10/22/2014 Encounter Details Date Type Department Care Team Description 10/22/2014 Refill [facility] [place] Tree Vaughan, Refill Request [address] [facility], [address] [place], [place] [address] [address] [place] [address] [place], [place] [phone] (Wo rk) Social History Tobacco Use Types [...] NOS documented in this encounter Care Teams Ceramic Designer Relationship Specialty Start Date End Date Provider, Outside PCP - General 03/13/09 10/22/18 [place] [address] documented as of this encounter
--- OUTSIDE RECORDS SUMMARY | 2022-05-16 10:00 | XMS_ITS | Encounter Summary ---
:1955 Author Organization [facility] Address [address] [place] [address] Phone Care Team Providers Name Role Phone Provider, Outside Primary Care Provider Unavailable Reason for Visit Reason Onset Date Comments Refill Request 09/05/2013 macrodantin Encounter Details Date Type Department Care Team Description 09/05/2013 Refill [facility] Omar Savage MD Refill Request [facility] Only (macrodantin) [address], [address] [place], [place] [address] Social History Tobacco Use Types [...] Savage, med send to to co sign. TROENCEPHALOGRAPHIC TECHNICIAN documented in this encounter Plan of Treatment Not on filedocumented as of this encounter Visit Diagnoses Diagnosis Neurogenic bladder - Primary Neurogenic bladder, NOS documented in this encounter Care Teams Consulting Systems Engineer Relationship Specialty Start Date End Date Provider, Outside PCP - General 03/13/09 10/22/18 [place] [address] documented as of this encounter
--- OUTSIDE RECORDS SUMMARY | 2022-05-16 10:00 | XMS_ITS | Encounter Summary ---
:1955 Author Organization [facility] Address [address] [place], [place] [address]. [place] [address] Phone Care Team Providers Name Role Phone Provider, Outside Primary Care Provider Unavailable Reason for Visit Reason Comments Follow-up Encounter Details Date Type Department Care Team Description 06/06/2013 Office Visit [facility] Omar Savage, Neurog enic bladder Yordy FALCON (Primary Dx) [address], [address] [place], [place] [address] Social History Tobacco Use Types [...] Comments Blood Pressure 88/58 06/06/2013 11:33 AM TITLE ONE TEACHER Pulse 79 06/06/2013 11:33 AM TITLE ONE TEACHER Temperature 36.8 ??C (98.2 ??F) 06/06/2013 11:33 AM TITLE ONE TEACHER Respiratory Rate - - Oxygen Saturation - - Inhaled Oxygen Concentration - - Weight - - Height - - Body Mass Index - - documented in this encounter Patient Instructions Patient InstructionsOmar Savage MD - 06/06/2013 11:42 AM CST Patient may have renal ultrasound[facility]bl[facility] with result forwarded to us E ONE TEACHER documented in this encounter Progress Notes Omar Savage MD - 06/08/2013 8:17 AM CST [facility] [address], [address] [place] [address] (fax) [facility]#: [id number] PATIENT: MICHEAL FLETCHER : 1955 DATE: 06/06/2013 [...] MD Staff Physician Surgery Service Received in Mems Integration Engineer: 06/08/2013 05:34 M: 06/08/2013 08:17 filiberto TSEWART/filiberto Voice ID: [id number] Document ID: [id number] E ONE TEACHER Omar Savage MD - 06/08/2013 5:32 AM CST This office note has been dictated. E ONE TEACHER documented in this encounter Plan of Treatment Not on filedocumented as of this encounter Visit Diagnoses Diagnosis Neurogenic bladder - Primary Neurogenic bladder, NOS documented in this encounter Care Teams Deburr Technician Relationship Specialty Start Date End Date Provider, Outside PCP - General 03/13/09 10/22/18 [place] [address] documented as of this encounter
--- OUTSIDE RECORDS SUMMARY | 2022-05-16 10:00 | XMS_ITS | Encounter Summary ---
:1955 Author Organization [facility] Address [address] [place] [address] Phone Care Team Providers Name Role Phone Provider, Outside Primary Care Provider Unavailable Reason for Visit Reason Comments Neurologic Problem pmr Encounter Details Date Type Department Care Team Description 12/27/2010 Office Visit [facility] Phys Med/Rehab Abhinav Chavez MD NEED ADDRESS Ulcer () (Primary Clinic Sameera Frances MD [address] [place] [address] Dx) [address] [place], [place] [address] Social History Tobacco Use Types [...] site documented in this encounter Care Teams Quality Process Engineer Relationship Specialty Start Date End Date Provider, Outside PCP - General 03/13/09 10/22/18 [place] [address] documented as of this encounter
--- OUTSIDE RECORDS SUMMARY | 2022-05-16 10:00 | XMS_ITS | Encounter Summary ---
:1955 Author Organization [facility] Address [address] [place] [address] Phone Care Team Providers Name Role Phone Provider, Outside Primary Care Provider Unavailable Reason for Visit Reason Comments Bladder Problem Encounter Details Date Type Department Care Team Description 01/26/2015 Office Visit [facility] Monty Garcia Neur ogenic bladder Yordy FALCON (Primary Dx) [address] [facility] [address] [place], [place] [id number] Social History Tobacco Use Types Packs/Day Years [...] - 01/26/2015 4:13 PM CDT [facility]OLOGY CLINIC [facility]: NEW PATIENT/CONSULT VISIT Khanh Rene : 1955 [...] NOS documented in this encounter Care Teams Warehouse Associate Driver Relationship Specialty Start Date End Date Provider, Outside PCP - General 03/13/09 10/22/18 [place] [address] documented as of this encounter
--- OUTSIDE RECORDS SUMMARY | 2022-05-16 10:00 | XMS_ITS | Encounter Summary ---
:1955 Author Organization [facility] Address [address] [place] [address] Phone Care Team Providers Name Role Phone Provider, Outside Primary Care Provider Unavailable Encounter Details Date Type Department Care Team Description 09/07/2012 Letters(Tab) [facility] Omar Reyes MD [address] [place] [address], [address] Research [place], [place] [address] Social History Tobacco Use Types Packs/Day Years Used Date Smoking Tobacco: Former Cigarettes Cigars Smokeless Tobacco: Never Alcohol Use Standard Drinks/Week Comments Yes 3.3 (1 standard drink = 0.6 oz pure alco hol) once in while Sex Assigned at Date Recorded Not on file documented as of this encounter Progress Notes Omar Savage MD - 09/07/2012 7:45 AM CST [facility] [address] [place], [place] [address] September 07, 2012 TO: Micheal Fletcher [id number] [place] [place] [address] RE:MICHEAL FLETCHER MR#:[id number] :1955 Dear Mr. Fletcher: From your recent Urology Clinic visit, your urine culture grew only mixed gram-positive organisms, which are not considered an infection. Please feel free to contact me for questions. Best wishes. Looking forward to seeing you at your next scheduled visit. Sincerely, Omar Savage MD Staff Physician Surgery Service Received in Shoe Sprayer: 09/07/2012 07:32 M: 09/07/2012 07:45 cn CS/cn Voice ID: [id number] Document ID: [id number] cc:MICHEAL FLETCHER [address] [place] [address] [employer] HISTORY documented in this encounter Plan of Treatment Not on filedocumented as of this encounter Visit Diagnoses Not on filedocumented in this encounter Care Teams Cartographic Engineer Relationship Specialty Start Date End Date Provider, Outside PCP - General 03/13/09 10/22/18 [place] [address] documented as of this encounter
--- OUTSIDE RECORDS SUMMARY | 2022-05-16 10:01 | XMS_ITS | Encounter Summary ---
:[address] [facility] Address [address] [place] [address] Phone Care Team Providers Name Role Phone Provider, Outside Primary Care Provider Unavailable Reason for Referral Consult/Test/Treat (Routine) - Closed Specialty Diagnoses / Procedures Referred By Contact Refer red To Contact Plastic Surgery / Diagnoses Ulcer Sameera Frances, PLASTIC SURGERY MD [address] [place], [place] [address] Referral ID Status Reason Start Date Expiration Date Visits Requ ested Visits Authorized [id number] Closed 09/13/2010 09/13/2011 1 1 SCIENTIST Encounter Details Date Type Department Care Team Description 09/13/2010 Orders Only [facility] Phys Med/Rehab Sameera Frances U lcer () (Primary Clinic MD Dx) [address] [place], [place] [address] [place], [place] [phone] (Wo rk) Social History Tobacco Use Types [...] site documented in this encounter Care Teams Sterile Process Coordinator Relationship Specialty Start Date End Date Provider, Outside PCP - General 03/13/09 10/22/18 [place] [address] documented as of this encounter
--- OUTSIDE RECORDS SUMMARY | 2022-05-16 10:01 | XMS_ITS | Encounter Summary ---
:1955 Author Organization [facility] Address [address] [place], [place] [address]. [place] [address] Phone Care Team Providers Name Role Phone Unavailable Primary Care Provider Unavailable Encounter Details Date Type Department Care Team Description 09/02/2005 Orders Only [facility] Ul[place]ound [address] [place], [place] [address] Social History Tobacco Use Types Packs/Day Years Used Date Smoking Tobacco: Never Assessed Sex Assigned at Date Recorded Not on file documented as of this encounter Plan of Treatment Not on filedocumented as of this encounter Procedures Procedure Name Priority Date/Time Associated Diagnosis Comme nts ULT KIDNEYS Routine 09/02/2005 3:16 PM Results f or this COMPLETE PERIOPERATIVE TECH procedure are i n the results section. documented in this encounter Results ULT KIDNEY COMPLETE (09/02/2005 3:16 PM PERIOPERATIVE TECH) Anatomical Region Laterality Modality Abdomen Ultrasound Specimen (Source) Anatomical Collection Method Collection Time Re ceived Time Location / / Volume Laterality 09/02/2005 3:16 PM PERIOPERATIVE TECH Impressions 09/05/2005 9:17 AM PERIOPERATIVE TECH : ??NO FOCAL MASS, STONE, OR HYDRONEPHROSIS IDENTIFIED WITHIN EITHER KIDNEY. I have personally reviewed the image(s) and initial interpretation, and I agree with the findings. . . Read Date: Sep 02 2005 ??4:12P BENEDICT AU M.D. - STAFF RADIOLOGIST FABIOLA AVALOS M.D. - RESIDENT RADIOLOGIST RELEASE RESULTS: (Y) ASI END: END RESULT: DATE DICTATED: () DEVELOPMENTAL SERVICES WORKER: ( ) IMPRESSION Narrative 09/05/2005 9:17 AM PERIOPERATIVE TECH FABIOLA AVALOS M.D. - RESIDENT RADIOLOGIST Final Report EXAM: ?? RENAL US: KLETSEL DEHE WINTUN KIDNEYS ?? 04/2006 15:16 HISTORY: ??Neurogenic bladder. [...] RESIDENT RADIOLOGIST Final Report EXAM: RENAL US: KLETSEL DEHE WINTUN KIDNEYS 15:16 HISTORY: Neurogenic bladder. COMPARISON: 10/12/01. [...] ASI END: END RESULT: DATE DICTATED: () DEVELOPMENTAL SERVICES WORKER: ( ) IMPRESSION Omar Savage MD ULT documented in this encounter Visit Diagnoses Not on filedocumented in this encounter
--- OUTSIDE RECORDS SUMMARY | 2022-05-16 10:01 | XMS_ITS | Encounter Summary ---
:1955 Author Organization [facility] Address [address] [place] [address] Phone Care Team Providers Name Role Phone Provider, Outside Primary Care Provider Unavailable Encounter Details Date Type Department Care Team Description 05/17/2010 Letters(Tab) [facility] Omar Savage MD [address] [place] [address], [address] Research Only [place] [address] Social History Tobacco Use Types Packs/Day Years Used Date Smoking Tobacco: Never Alcohol Use Standard Drinks/Week Comments Yes 3.3 (1 standard drink = 0.6 oz pure alco hol) Sex Assigned at Date Recorded Not on file documented as of this encounter Progress Notes Omar Savage MD - 05/18/2010 6:15 AM CDT [facility] [address] [place] [address] May 17, 2010 TO: Micheal Rene [address] [facility] [place] [address] RE:MICHEAL RENE MR#:[id number] :1955 Dear Mr. Rene: From your recent urology clinic visit, the renal ultrasound that was performed does not show any evidence of kidney abnormalities. There is no dilation, no hydronephrosis or stones noted. Best wishes. Look forward to seeing you in 1 year. Please feel free to contact me for questions. Sincerely, Omar Savage MD Staff Physician Surgery Service Received in Patent Engineer: 05/17/2010 21:18 M: 05/18/2010 03:15 javon CS/javon Voice ID: [id number] Document ID: [id number] cc:Micheal Rene [id number] [address] [id number] documented in this encounter Plan of Treatment Not on filedocumented as of this encounter Visit Diagnoses Not on filedocumented in this encounter Care Teams Nursery Technician Relationship Specialty Start Date End Date Provider, Outside PCP - General 03/13/09 10/22/18 [place] [address] documented as of this encounter
--- OUTSIDE RECORDS SUMMARY | 2022-05-16 10:01 | XMS_ITS | Encounter Summary ---
:1955 Author Organization [facility] Address [address] [place] [address] [place] [address] Phone Care Team Providers Name Role Phone Provider, Outside Primary Care Provider Unavailable Encounter Details Date Type Department Care Team Description 04/07/2010 Telephone [facility] Omar Savage MD [address] [facility], [address] Research Only [place], [place] [address] Social History Tobacco Use Types [...] BALL AT 11:30. PLEASE CALL HIM AT [phone] Pt. Name: Khanh Rene : 1955 (home) Insurance: PCP: Outside Provider Comment: Expects Return Call at: documented in this encounter Plan of Treatment Not on filedocumented as of this encounter Visit Diagnoses Not on filedocumented in this encounter Care Teams Tax Assessor Relationship Specialty Start Date End Date Provider, Outside PCP - General 03/13/09 10/22/18 [place] [address] documented as of this encounter
--- OUTSIDE RECORDS SUMMARY | 2022-05-16 10:01 | XMS_ITS | Encounter Summary ---
:1955 Author Organization [facility] Address [address] [place] [address] Phone Care Team Providers Name Role Phone Pcp, No Primary Care Provider Unavailable Reason for Visit Reason Onset Date Comments Refill Request 09/02/2008 Encounter Details Date Type Department Care Team Description 09/02/2008 Refill [facility] Omar Savage MD Refill Request [address] [facility] Research [place], [place] [address] Social History Tobacco Use Types Packs/Day Years Used Date Smoking Tobacco: Never Alcohol Use Standard Drinks/Week Comments Yes 3.3 (1 standard drink = 0.6 oz pure alco hol) Sex Assigned at Date Recorded Not on file documented as of this encounter Plan of Treatment Not on filedocumented as of this encounter Visit Diagnoses Not on filedocumented in this encounter Care Teams Carpet Finishing Supervisor Relationship Specialty Start Date End Date Pcp, No PCP - General 01/24/08 03/12/09 [facility] [place] [address] documented as of this encounter
--- OUTSIDE RECORDS SUMMARY | 2022-05-16 10:01 | XMS_ITS | Encounter Summary ---
:1955 Author Organization [facility] Address [address] [place] [address] Phone Care Team Providers Name Role Phone [...] 09/23/2010 12:00 AM CSTAssociated Order(s): INFORMATION DISCLOSURE RANCE PROCESSOR documented in this encounter Plan of Treatment Not on filedocumented as of this encounter Procedures Procedure Name Priority Date/Time Associated Comments Diagnosis INFORMATION 09/23/2010 5:22 PM Results f or this DISCLOSURE INSURANCE PROCESSOR procedure are i n the results section. documented in this encounter Results INFORMATION DISCLOSURE (09/23/2010 5:22 PM INSURANCE PROCESSOR) Narrative 09/23/2010 5:22 PM INSURANCE PROCESSOR Procedure Note Unknown, Provider - 09/23/2010 12:00 AM CST Provider Unknown SCANNED CONSENTS documented in this encounter Visit Diagnoses Not on filedocumented in this encounter Care Teams Iphone Developer Relationship Specialty Start Date End Date Provider, Outside PCP - General 03/13/09 10/22/18 [place] [address] documented as of this encounter
--- OUTSIDE RECORDS SUMMARY | 2022-05-16 10:01 | XMS_ITS | Encounter Summary ---
:1955 Author Organization [facility] Address [address] [place] [address] Phone Care Team Providers Name Role Phone Provider, Outside Primary Care Provider Unavailable Reason for Visit Reason Comments Follow-up 19 months foolow up visit [facility] Dr Yvrose Mukherjee PM[facility]R Clinic Dx C7 Spinal Cord Injury Encounter Details Date Type Department Care Team Description 03/13/2009 Office Visit [facility] Neuromuscular Sameera Frances Don plegia () Clinic MD Valery (Primary Dx) [address], [address] [place] [address] [address] [place], [place] [address] [place], [place] [phone] [address] Social History Tobacco Use Types Packs/Day [...] visit with Dr Frances A [facility] ([phone]) Rx/orders given to Micheal by Dr Frances for Wheelchair lumbar support and wheelchair repairs, bilateral arm rests, replace sling back Blanca Ziegler RN documented in this encounter Progress Notes Sameera Frances MD - 03/26/2009 10:04 AM CDT [facility] [address] [place] [address] (fax) [facility]#: [id number] PATIENT: MICHEAL FLETCHER : 1955 DATE: 03/13/2009 NEUROMUSCULAR PHYSICAL MEDICINE NOTE HISTORY OF PRESENT ILLNESS: Micheal Fletcher is a 54-year-old gentleman with a C7 [place] [employer] (AUDREY) B spinal cord [...] that eventually led to pacemaker placement at [facility]. He said that his angiogram did [...] discontinues that activity. He is using a [employer] wheelchair with a Joby cushion. It [...] a slow healing coccyx ulcer at the [facility]. We have discussed whether he should [...] that complication. Sameera Frances MD Received in Windows Software Developer: 03/20/2009 12:28:50 (M: 03/24/2009 03:22:10 golden) HOMA/jlb Voice ID: [id number] Document ID: [id number] cc: Abida Pulliam DO, [facility], [address] [place] [id number] Sameera Frances MD - 03/19/2009 6:44 PM CDT See dictation. documented in this encounter Nursing Notes 03/13/2009 8:00 AM CDT >> Blanca Ziegler RN MonMar 13, 2009 8:24 AM 19 months follow up visit with Dr Frances in Monday [facility] PM[facility]. DX of C7 Spinal Cord Injury, Quadriplegia, Neurogenic Bladder. B/P 87/60 pulse 105, states runs lower blood pressure. Self caths PRN during the day. Blanca Ziegler RN documented in this encounter Plan of Treatment Not on filedocumented as of this encounter Visit Diagnoses Diagnosis Quadriplegia () - Primary Quadriplegia, unspecified documented in this encounter Care Teams Proof Machine Operator Relationship Specialty Start Date End Date Provider, Outside PCP - General 03/13/09 10/22/18 [place] [address] documented as of this encounter
--- OUTSIDE RECORDS SUMMARY | 2022-05-16 10:01 | XMS_ITS | Encounter Summary ---
:1955 Author Organization [facility] Address [address] [place] [address] Phone Care Team Providers Name Role Phone Provider, Outside Primary Care Provider Unavailable Encounter Details Date Type Department Care Team Description 08/30/2010 Telephone [facility] Physical Therap y Reece Ziegler, [place] [address] [facility] [address] [place] [address] Social History Tobacco Use Types Packs/Day Years [...] 08/30/2010 11:12 AM To: Neurology Team Pool [facility] ----- Message ----- From: Nola Espino Sent: 08/27/2010 1:52 PM To: Neurology Order Picker Pool Patient: Khanh Rene : 1955 Called to schedule an appointment with provider:Dr. Frances No appointments available: with preferred provider.. Date and time requested: caryn Reason for visit: Pt has a pressure sore, and needs a FU appt Phone number for return call: [phone] Monday08/30/10. Khanh eRne will need to [facility] at [phone] to schedule a follow up visit with Dr Frances in her PM[facility]R Clinic. We will call Khanh and inform him of this. Reece Ziegler RN ER INSPECTOR documented in this encounter Plan of Treatment Not on filedocumented as of this encounter Visit Diagnoses Not on filedocumented in this encounter Care Teams Level Glass Vial Filler Relationship Specialty Start Date End Date Provider, Outside PCP - General 03/13/09 10/22/18 [place] [address] documented as of this encounter
--- OUTSIDE RECORDS SUMMARY | 2022-05-16 10:01 | XMS_ITS | Encounter Summary ---
:1955 Author Organization [facility] Address [address] [place] [address] Phone Care Team Providers Name Role Phone [...]
--- OUTSIDE RECORDS SUMMARY | 2022-05-16 10:01 | XMS_ITS | Encounter Summary ---
:1955 Author Organization [facility] Address [address] [place], [place] [address]. [place] [address] Phone Care Team Providers Name Role Phone Provider, Outside Primary Care Provider Unavailable Encounter Details Date Type Department Care Team Description 05/13/2010 Hospital Encounter [facility] Omar Savage MD [address] Research Only [address] [place], [place] [address] Social History Tobacco Use Types [...] NOS documented in this encounter Care Teams Wall Attendant Relationship Specialty Start Date End Date Provider, Outside PCP - General 03/13/09 10/22/18 [place] [address] documented as of this encounter
--- OUTSIDE RECORDS SUMMARY | 2022-05-16 10:01 | XMS_ITS | Encounter Summary ---
:1955 Author Organization [facility] Address [address] [place] [address] Phone Care Team Providers Name Role Phone Pcp, No Primary Care Provider Unavailable Reason for Visit Reason Onset Date Comments Refill Request 01/28/2008 Encounter Details Date Type Department Care Team Description 01/28/2008 Refill [facility] Urology Omar Savage MD Refill Request [address] [facility] Research Only [place], [place] [address] Social History Tobacco Use Types [...] on filedocumented in this encounter Care Teams Joggle Press Operator Relationship Specialty Start Date End Date Pcp, No PCP - General 01/24/08 03/12/09 [facility] [place] [address] documented as of this encounter
--- OUTSIDE RECORDS SUMMARY | 2022-05-16 10:01 | XMS_ITS | Encounter Summary ---
:1955 Author Organization [facility] [place] Address [address] [facility] [place] [place] [address] Phone Care Team Providers Name Role Phone Provider, Outside Primary Care Provider Unavailable Reason for Visit Reason Comments Follow-up Encounter Details Date Type Department Care Team Description 09/24/2010 Office Visit [facility] [place] Plastic Surg DaysiBubba Veronica us ulcer, stage Clinic MD Valery IV () (Primary Dx) [address] [facility] [address] [facility] [address] Mail Code P5 [place], [place] [address] [place], [place] [phone] Social History Tobacco Use Types Packs/Day Years Used Date Smoking Tobacco: Never Smokeless Tobacco: Never Alcohol Use Standard Drinks/Week Comments Yes 3.3 (1 standard drink = 0.6 oz pure alco hol) once in while Sex Assigned at Date Recorded Not on file documented as of this encounter Last Filed Vital Signs Vital Sign Reading Time Taken Comments Blood Pressure 107/73 09/24/2010 10:33 AM CUSTOMER SUPPORT COORDINATOR Pulse 87 09/24/2010 10:33 AM CUSTOMER SUPPORT COORDINATOR Temperature 36.8 ??C (98.2 ??F) 09/24/2010 10:33 AM CUSTOMER SUPPORT COORDINATOR Respiratory Rate - - Oxygen Saturation - [...] of infection, please contact the Surgery clinic [phone]: redness, warmth, swelling, drainage, pain, and/or fever over 100 degrees. OMER SUPPORT COORDINATOR documented in this encounter Progress Notes Mari Odell RN - 09/24/2010 2:45 PM CST Wound care D: Here for wound care. Location: coccyx A: Exam per provider. Wound cleansed with: technicare, H2O and rinsed. Dressing applied: and wet to dry with 1/2 packing and 2x2's with Island dressing. R: Patient tolerated procedure well. P: As ordered by provider. OMER SUPPORT COORDINATOR Syl Yanes MD - 09/24/2010 11:21 AM [...] documented. Bubba Tavarez MD, 09/25/2010 9:26 AM OMER SUPPORT COORDINATOR documented in this encounter Plan of Treatment Not on filedocumented as of this encounter Visit Diagnoses Diagnosis Decubitus ulcer, stage IV () - Primary Pressure ulcer, unspecified site documented in this encounter Care Teams Hopper Operator Relationship Specialty Start Date End Date Provider, Outside PCP - General 03/13/09 10/22/18 [place] [address] documented as of this encounter
--- OUTSIDE RECORDS SUMMARY | 2022-05-16 10:01 | XMS_ITS | Encounter Summary ---
:1955 Author Organization [facility] Address [address] [place] [address] Phone Care Team Providers Name Role Phone Pcp, No Primary Care Provider Unavailable Reason for Visit Reason Comments Follow-up med check-in Encounter Details Date Type Department Care Team Description 01/24/2008 Office Visit [facility] Omar Savage, Neurogenic Bladder [address] [facility] (Primary Dx) [address] [place], [place] [address] Social History Tobacco Use Types Packs/Day Years Used Date Smoking Tobacco: Never Alcohol Use Standard Drinks/Week Comments Yes 3.3 (1 standard drink = 0.6 oz pure alco hol) Sex Assigned at Date Recorded Not on file documented as of this encounter Progress Notes Omar Savage MD - 01/29/2008 2:47 PM CDT [facility] [address] [facility], [address] [place] [address] (fax) MEDREC#: [id number] PATIENT: MICHEAL RENE : 1955 DATE: 01/24/2008 [...] this examination. Omar Savage MD Received in Ear Nose And Throat Specialist: 01/24/2008 17:47:53 (M: 01/29/2008 08:19:42 aml) CS/aml Voice ID: [id number] Document ID: [id number] cc: Omar Savage MD - 01/24/2008 5:48 [...] eGFR, >60 mL/min/1.73 [facility] LAB Non- m2 Citizen Of [place] Specimen Anatomical Collection Method Collection Time Receive d Time (Source) Location / / Volume Laterality Blood 01/24/2008 4:05 PM 8 4:29 CDT PM CDT Omar Savage MD LABORATORY Performing Organization Address City/[facility]/ZIP Code Phon e Number HFA LAB GLOMERULAR FILTRATION RATE B (01/24/2008 4:05 PM CDT) P athologist Signature eGFR, >60 mL/min/1.73 H[facility] LAB Citizen [place] m2 Comment: IDMS TRACEABLE CALIBRATION EFFECTIVE 08/16/2007 Specimen Anatomical Collection Method Collection Time Receive d Time (Source) Location / / Volume Laterality Blood 01/24/2008 4:05 PM 8 4:29 CDT PM CDT Omar Savage MD LABORATORY Performing Organization Address City/[facility]/ZIP Code Phon e Number HFA LAB (ABNORMAL) [...] NOS documented in this encounter Care Teams Suction Roller Relationship Specialty Start Date End Date Pcp, No PCP - General 01/24/08 03/12/09 [facility] [place] [address] documented as of this encounter
--- OUTSIDE RECORDS SUMMARY | 2022-05-16 10:01 | XMS_ITS | Encounter Summary ---
:1955 Author Organization [facility] Address [address] [place] [address] Phone Care Team Providers Name Role Phone Unavailable Primary Care Provider Unavailable Encounter Details Date Type Department Care Team Description 09/02/2005 Orders Only [facility] XRAY [address] [place], [place] [address] Social History Tobacco Use Types Packs/Day Years Used Date Smoking Tobacco: Never Assessed Sex Assigned at Date Recorded Not on file documented as of this encounter Plan of Treatment Not on filedocumented as of this encounter Procedures Procedure Name Priority Date/Time Associated Diagnosis Comme nts ULT KIDNEYS Routine 09/02/2005 3:16 PM Results f or this COMPLETE MONITORING SPECIALIST procedure are i n the results section. XR CHEST 2 VIEWS PA Routine 09/02/2005 3:03 PM Re sults for this + LAT* MONITORING SPECIALIST procedure are i n the results section. documented in this encounter Results ULT KIDNEY COMPLETE (09/02/2005 3:16 PM MONITORING SPECIALIST) Anatomical Region Laterality Modality Abdomen Ultrasound Specimen (Source) Anatomical Collection Method Collection Time Re ceived Time Location / / Volume Laterality 09/02/2005 3:16 PM MONITORING SPECIALIST Impressions 09/05/2005 9:17 AM MONITORING SPECIALIST : ??NO FOCAL MASS, STONE, OR HYDRONEPHROSIS IDENTIFIED WITHIN EITHER KIDNEY. I have personally reviewed the image(s) and initial interpretation, and I agree with the findings. . . Read Date: Sep 02 2005 ??4:12P BENEDICT AU M.D. - STAFF RADIOLOGIST FABIOLA AVALOS M.D. - RESIDENT RADIOLOGIST RELEASE RESULTS: (Y) ASI END: END RESULT: DATE DICTATED: () MANAGEMENT ACCOUNTANT: ( ) IMPRESSION Narrative 09/05/2005 9:17 AM MONITORING SPECIALIST FABIOLA AVALOS M.D. - RESIDENT RADIOLOGIST Final Report EXAM: ?? RENAL US: SHOSHONE-PAIUTE KIDNEYS ?? 04/2006 15:16 HISTORY: ??Neurogenic bladder. [...] RESIDENT RADIOLOGIST Final Report EXAM: RENAL US: SHOSHONE-PAIUTE KIDNEYS 15:16 HISTORY: Neurogenic bladder. COMPARISON: 10/12/01. [...] ASI END: END RESULT: DATE DICTATED: () MANAGEMENT ACCOUNTANT: ( ) IMPRESSION Omar Savage MD ULT XR CHEST 2 VIEWS PA & LAT (09/02/2005 3:03 PM MONITORING SPECIALIST) Anatomical Region Laterality Modality Chest Digital Radiography Specimen (Source) Anatomical Collection Method Collection Time Re ceived Time Location / / Volume Laterality 09/02/2005 3:03 PM MONITORING SPECIALIST Impressions 09/02/2005 3:58 PM MONITORING SPECIALIST : ??NO ACUTE PULMONARY INFILTRATE. ?? . . Read Date: Sep 02 2005 ??3:34P VIANCA COHEN M.D. - STAFF RADIOLOGIST - RESIDENT RADIOLOGIST RELEASE RESULTS: (Y) ASI END: END RESULT: DATE DICTATED: () MANAGEMENT ACCOUNTANT: ( ) IMPRESSION Narrative 09/02/2005 3:58 PM MONITORING SPECIALIST - RESIDENT RADIOLOGIST Final Report EXAM: ?? [...] ASI END: END RESULT: DATE DICTATED: () MANAGEMENT ACCOUNTANT: ( ) IMPRESSION Omar Savage MD X-RAY documented in this encounter Visit Diagnoses Not on filedocumented in this encounter
--- OUTSIDE RECORDS SUMMARY | 2022-05-16 10:01 | XMS_ITS | Encounter Summary ---
:1955 Author Organization [facility] Address [address] [place] [address] Phone Care Team Providers Name Role Phone Pcp, No Primary Care Provider Unavailable Reason for Visit Reason Comments Follow-up neurogenic bladder Encounter Details Date Type Department Care Team Description 01/29/2009 Office Visit [facility] Omar Savage, Neurogenic Bladder [address] [place] [address] (Primary Dx) [address] [place], [place] [address] Social History Tobacco Use Types Packs/Day Years Used Date Smoking Tobacco: Never Alcohol Use Standard Drinks/Week Comments Yes 3.3 (1 standard drink = 0.6 oz pure alco hol) Sex Assigned at Date Recorded Not on file documented as of this encounter Progress Notes Omar Savage MD - 02/02/2009 12:28 PM CDT [facility] [address] [facility], [address] [place] [address] (fax) MEDREC#: [id number] PATIENT: MICHEAL FLETCHER : 1955 DATE: 01/29/2009 [...] pinning. The pinning was performed at the [facility]. His pacemaker was placed at the [facility]. I will request laboratory values from both [...] 20 minutes. Omar Savage MD Received in Marker Hand: 01/29/2009 18:41:26 (M: 02/02/2009 08:06:12 sharmila) CS/sjv Voice ID: [id number] Document ID: [id number] cc: Omar Savage MD - 01/29/2009 6:41 [...] NOS documented in this encounter Care Teams Type Proof Reproducer Relationship Specialty Start Date End Date Pcp, No PCP - General 01/24/08 03/12/09 [place] [address] documented as of this encounter
--- OUTSIDE RECORDS SUMMARY | 2022-05-16 10:01 | XMS_ITS | Encounter Summary ---
:1955 Author Organization [facility] Address [address] [facility] [place] [address] Phone Care Team Providers Name Role Phone Provider, Outside Primary Care Provider Unavailable Reason for Visit Reason Onset Date Comments Call Back 11/08/2010 Encounter Details Date Type Department Care Team Description 11/08/2010 Telephone [facility] [place] Vickie Odell RN Call Back [address] [facility] [address] [address] [place], [place] [address] Social History Tobacco Use Types [...] that was to call [employer] [phone] to order supplieslast after last visit 11-01-10. [...] Outside Provider Comment:na Expects Return Call at: [phone] documented in this encounter Plan of Treatment Not on filedocumented as of this encounter Visit Diagnoses Not on filedocumented in this encounter Care Teams Pulverizer Mill Operator Relationship Specialty Start Date End Date Provider, Outside PCP - General 03/13/09 10/22/18 [place] [address] documented as of this encounter
--- OUTSIDE RECORDS SUMMARY | 2022-05-16 10:01 | XMS_ITS | Encounter Summary ---
:1955 Author Organization [facility] Address [address] [place] [address] Phone Care Team Providers Name Role Phone Provider, Outside Primary Care Provider Unavailable Reason for Visit Reason Onset Date Comments Call Back 09/30/2010 Encounter Details Date Type Department Care Team Description 09/30/2010 Nurse Triage [facility] Contact Center Quang Toscano, Call Back [facility] [id number] [place] [address] Social History Tobacco Use Types Packs/Day [...] requests that she call back again at [phone]. R: routing to [employer] Telephone Encounter - Quang Toscano RN - 09/30/2010 4:24 PM SUPERINTENDENT SERVICE Message copied by QUANG TOSCANO on MonSep [...] CHRISTIANO TINAJERO Phone number for return call: [phone] [employer] documented in this encounter Plan of Treatment Not on filedocumented as of this encounter Visit Diagnoses Not on filedocumented in this encounter Care Teams Server Software Engineer Relationship Specialty Start Date End Date Provider, Outside PCP - General 03/13/09 10/22/18 [place] [address] documented as of this encounter
--- OUTSIDE RECORDS SUMMARY | 2022-05-16 10:01 | XMS_ITS | Encounter Summary ---
:1955 Author Organization [facility] Address [address] [place] [address] Phone Care Team Providers Name Role Phone Provider, Outside Primary Care Provider Unavailable Reason for Visit Reason Onset Date Comments Supplies 09/20/2010 Encounter Details Date Type Department Care Team Description 09/20/2010 Telephone [facility] Alka Jade RN Supplies [address] [place] [address] [place], [place] [address] Social History Tobacco Use Types [...] 10:02 AM CST Verified that [facility] pharmacy received fax for supplies on 09/17/10. [employer] Telephone Encounter - Alka Jade RN - [...] Insurance: PCP: Outside Provider Comment: [facility] pharmacy [phone] Prescribed supplies Expects Return Call at: home see above [employer] documented in this encounter Plan of Treatment Not on filedocumented as of this encounter Visit Diagnoses Not on filedocumented in this encounter Care Teams Truck Loader And Unloader Relationship Specialty Start Date End Date Provider, Outside PCP - General 03/13/09 10/22/18 [place] [address] documented as of this encounter
--- OUTSIDE RECORDS SUMMARY | 2022-05-16 10:01 | XMS_ITS | Encounter Summary ---
:1955 Author Organization [facility] Address [address] [place] [address] Phone Care Team Providers Name Role Phone Provider, Outside Primary Care Provider Unavailable Reason for Visit Reason Onset Date Comments Call Back 08/30/2010 Encounter Details Date Type Department Care Team Description 08/30/2010 Telephone [facility] Varsha Knight RN Call Back [address] Multispecialty Clinic [place], [place] [address] [phone] [place] [address] (Wo rk) Social History Tobacco Use Types Packs/Day Years Used Date Smoking Tobacco: Never Alcohol Use Standard Drinks/Week Comments Yes 3.3 (1 standard drink = 0.6 oz pure alco hol) Sex Assigned at Date Recorded Not on file documented as of this encounter Miscellaneous Notes Telephone Encounter - Varsha Knight RN - 08/30/2010 4:23 PM NEWSPAPER MANAGER Spoke with patient & let him know that Blanca Ziegler was working on this (see her telephone encounter from earlier today). Pt states he is using Duoderm for this pressure sore but thinks it may need other intervention. Let him know our office would be in touch soon regarding this appt. 08/31/10 830 AM. I called and talked to Khanh ([phone]) he is a Dr Frances Quadriplegia patient and he does have a open sore on his bottom, he did call scheduling [place] [facility] ([phone])and could not get in to see Dr Frances in her [facility] until September. I informed Khanh that I will route this phone message to Dr Frances plus I will page her to try to talk to her about Khanh. Blanca Ziegler RN PAPER MANAGER documented in this encounter Plan of Treatment Not on filedocumented as of this encounter Visit Diagnoses Not on filedocumented in this encounter Care Teams Restaurant Assistant Manager Relationship Specialty Start Date End Date Provider, Outside PCP - General 03/13/09 10/22/18 [place] [address] documented as of this encounter
--- OUTSIDE RECORDS SUMMARY | 2022-05-16 10:01 | XMS_ITS | Encounter Summary ---
:1955 Author Organization [facility] Address [address] [place] [address] Phone Care Team Providers Name Role Phone Unavailable Primary Care Provider Unavailable Encounter Details Date Type Department Care Team Description 10/22/2007 Abstract [facility] Mult[facility]pecialty Abstract, Provider [address] [place], [place] [address] Social History Tobacco Use Types [...]
--- OUTSIDE RECORDS SUMMARY | 2022-05-16 10:01 | XMS_ITS | Encounter Summary ---
:1955 Author Organization [facility] Address [address] [facility] [address] Phone Care Team Providers Name Role Phone Provider, Outside Primary Care Provider Unavailable Reason for Visit Reason Onset Date Comments Question 09/22/2010 Encounter Details Date Type Department Care Team Description 09/22/2010 Telephone [facility] Neurology Clini c Blanca Marti, NILSA Question [address] [facility] [address] [address] [place], [place] [address] Social History Tobacco Use Types [...] discuss concerns with Dr. Loya. He agreed. ITIAN CONSULTANT Telephone Encounter - Blanca Marti RN - 09/22/2010 10:35 AM CST Pt calling in with frustrations Saw dr. loya who wants pt to see dr. bernstein again before coming back Dr. bernstein wants pt to be seen in [facility] Paperwork faxed to them and pt will call and schedule Pt having questions regarding his care of his wound after seeing dr. loya- felt his appt was so brief with dr. loya and is unsatisfied and would like to speak with nsg staff in surgery clinic Routed to surg clinic RNs Blanca Marti RN, 09/22/2010 10:35 AM ITIAN CONSULTANT documented in this encounter Plan of Treatment Not on filedocumented as of this encounter Visit Diagnoses Not on filedocumented in this encounter Care Teams Broiler Manager Relationship Specialty Start Date End Date Provider, Outside PCP - General 03/13/09 10/22/18 [place] [address] documented as of this encounter
--- OUTSIDE RECORDS SUMMARY | 2022-05-16 10:01 | XMS_ITS | Encounter Summary ---
:1955 Author Organization [facility] Address [address] [facility] [place] [address] Phone Care Team Providers Name Role Phone Provider, Outside Primary Care Provider Unavailable Encounter Details Date Type Department Care Team Description 09/17/2010 Hospital Encounter [facility] Arnold Vora [address] Méndez MD [place], [place] [address] [address] [facility] [phone] [place], [place] [id number] Social History Tobacco Use Types Packs/Day Years [...] () Results for this LAT HIP AM OFFENDER JOB RETENTION SPECIALIST procedure are i n the results section. documented in this encounter Results (ABNORMAL) XR PELVIS WITH BOTH LAT HIP (09/17/2010 10:28 AM OFFENDER JOB RETENTION SPECIALIST) Anatomical Region Laterality Modality Pelvis Computed Radiography Specimen (Source) Anatomical Collection Method Collection Time Re ceived Time Location / / Volume Laterality 09/17/2010 10:28 AM OFFENDER JOB RETENTION SPECIALIST Impressions 09/17/2010 10:35 AM OFFENDER JOB RETENTION SPECIALIST Impression: Severe osteoarthritis involving both hips with postsurgical fixation of a left hip fracture. There is no cortical irregularity to suggest osteomyelitis. This however lucency surrounding a fe moral IM nail. Three-phase bone scan may be beneficial to assess for infection surrounding the nail if clinically indicated. Reading Radiologist: Khanh Brunson Narrative 09/17/2010 10:35 AM OFFENDER JOB RETENTION SPECIALIST History: Rule out osteo. Comparison: None. Findings [...] unspecified documented in this encounter Care Teams Food Processor Relationship Specialty Start Date End Date Provider, Outside PCP - General 03/13/09 10/22/18 [place] [address] documented as of this encounter
--- OUTSIDE RECORDS SUMMARY | 2022-05-16 10:01 | XMS_ITS | Encounter Summary ---
:1955 Author Organization [facility] Address [address] [place] [address] Phone Care Team Providers Name Role Phone Provider, Outside Primary Care Provider Unavailable Reason for Visit Reason Onset Date Comments Refill Request 10/21/2009 Encounter Details Date Type Department Care Team Description 10/21/2009 Refill [facility] Omar Savage MD Refill Request [address] [facility], [address] Research Only [place], [place] [address] Social History Tobacco Use Types [...] NOS documented in this encounter Care Teams Java Programmer Relationship Specialty Start Date End Date Provider, Outside PCP - General 03/13/09 10/22/18 [place] [address] documented as of this encounter
--- OUTSIDE RECORDS SUMMARY | 2022-05-16 10:01 | XMS_ITS | Encounter Summary ---
:1955 Author Organization [facility] Address [address] [place], [place] [address] [address] Phone Care Team Providers Name Role Phone Provider, Outside Primary Care Provider Unavailable Encounter Details Date Type Department Care Team Description 10/01/2010 Orders Only [facility] Omar Savage, Neurogenic bladder [address] (Primary Dx) [place], [place] [address] Research Only [phone] Social History Tobacco Use Types Packs/Day Years [...] NOS documented in this encounter Care Teams Line Mechanic Relationship Specialty Start Date End Date Provider, Outside PCP - General 03/13/09 10/22/18 [place] [address] documented as of this encounter
--- OUTSIDE RECORDS SUMMARY | 2022-05-16 10:01 | XMS_ITS | Encounter Summary ---
:1955 Author Organization [facility] Address [address] [place] [address] Phone Care Team Providers Name Role Phone Unavailable Primary Care Provider Unavailable Reason for Visit Reason Comments Follow-up Encounter Details Date Type Department Care Team Description 07/31/2007 Office Visit [facility] [place] Med/Rehab Sameera Frances Q uadriplegia (); Clinic Neurogenic Bowel; [address] [facility] [address]5.[address] Mail Code P5 [place], [place] [address] [place], [place] [phone] (Wo rk) Social History Tobacco Use Types Packs/Day Years Used Date Smoking Tobacco: Never Alcohol Use Standard Drinks/Week Comments Yes 3.3 (1 standard drink = 0.6 oz pure alco hol) Sex Assigned at Date Recorded Not on file documented as of this encounter Last Filed Vital Signs Vital Sign Reading Time Taken Comments Blood Pressure 91/64 07/31/2007 3:21 PM HOMEBOUND TEACHER Pulse 81 07/31/2007 3:21 PM HOMEBOUND TEACHER Temperature - - Respiratory Rate - - Oxygen Saturation - - Inhaled Oxygen Concentration - - Weight - - Height 6 cm (2.36) 07/31/2007 3:21 PM HOMEBOUND TEACHER Body Mass Index - - documented in this encounter Progress Notes Sameera Frances MD - 08/15/2007 11:05 [place] [address] MEDREC#: [id number] PATIENT: MICHEAL RENE : 1955 DATE: 07/31/2007 [facility] ADDENDUM: Again, under recommendations, I did talk to him that now he is 49 that he really should have an beam saw operator who can coordinate his prophylactic care while he ages, in particular heart disease and prostate concerns. He is not interested and would just prefer to treat things as they come up, and declined my offers to arrange him with a Primary Care physician. Smaeera Frances MD Staff Physician Physical Medicine and Rehabilitation Service Received in Publishing Director: 08/02/2007 15:01:18 (M: 08/06/2007 11:31:55/dd:st) CLR/dd:st Voice ID: [id number] Document ID: [id number] cc: BOUND TEACHER Sameera Frances MD - 08/15/2007 11:05 [place] [address] [facility]#: [id number] PATIENT: MICHEAL RENE : 1955 DATE: 07/31/2007 [...] father and a grandfather. He lives in [place] and just recently he has started to [...] He has just received a new manual [employer] wheelchair with a J-cushion and he is [...] he likes because of stability. ASSESSMENT: C7 [place] [employer] (AUDREY) A chronic spinal [...] Physical Medicine and Rehabilitation Service Received in Publishing Director: 08/02/2007 14:58:39 (M: 08/06/2007 11:12:53/dd:st) CLR/dd:st Voice ID: [id number] Document ID: [id number] cc: BOUND TEACHER Sameera Frances MD - 08/02/2007 3:01 PM CST HPI ROS Physical Exam See my dictation for today. BOUND TEACHER documented in this encounter Plan of Treatment Not on filedocumented as of this encounter Visit Diagnoses Diagnosis Quadriplegia () Quadriplegia, unspecified Neurogenic bowel Spastic Abnormal involuntary movements documented in this encounter
--- OUTSIDE RECORDS SUMMARY | 2022-05-16 10:01 | XMS_ITS | Encounter Summary ---
:1955 Author Organization [facility] Address [address] [place] [address] Phone Care Team Providers Name Role Phone [...] on filedocumented in this encounter Care Teams Mirror Inspector Relationship Specialty Start Date End Date Provider, Outside PCP - General 03/13/09 10/22/18 [place] [address] documented as of this encounter
--- OUTSIDE RECORDS SUMMARY | 2022-05-16 10:01 | XMS_ITS | Encounter Summary ---
:1955 Author Organization [facility] Address [address] [place] [address] Phone Care Team Providers Name Role Phone Provider, Outside Primary Care Provider Unavailable Reason for Visit Reason Comments Referral Consult/Test/Treat (Routine) - Closed Specialty Diagnoses / Procedures Referred By Contact Refer red To Contact Plastic Surgery / Diagnoses Ulcer Sameera Frances, PLASTIC SURGERY [address] Mail Code [address]5 [place], [place] [address] Referral ID Status Reason Start Date Expiration Date Visits Requ ested Visits Authorized [id number] Closed 09/13/2010 09/13/2011 1 1 Encounter Details Date Type Department Care Team Description 09/17/2010 Office Visit [facility] Plastic Surg Bubba Loya () Sara Rasmussen MD (Primary Dx) [address] Mail Code [address] [place], [place] [address] [place], [place] [phone] Social History Tobacco Use Types Packs/Day Years Used Date Smoking Tobacco: Never Smokeless Tobacco: Never Alcohol Use Standard Drinks/Week Comments Yes 3.3 (1 standard drink = 0.6 oz pure alco hol) once in while Sex Assigned at Date Recorded Not on file documented as of this encounter Last Filed Vital Signs Vital Sign Reading Time Taken Comments Blood Pressure 112/77 09/17/2010 8:59 AM DRY PAN CHARGER Pulse 98 09/17/2010 8:59 AM DRY PAN CHARGER Temperature 35.9 ??C (96.7 ??F) 09/17/2010 8:59 AM DRY PAN CHARGER Respiratory Rate - - Oxygen Saturation - [...] P: As ordered by provider. Dr loya PAN CHARGER Arnold Mejía MD - 09/17/2010 9:45 AM CST SURGERY CLINIC NOTE -G3 Khanh Rene : 1955 Sex: male Date of Service: 09/17/2010 9:23 AM HPI: Kahnh Rene is a 55 y.o. male who [...] documented. Bubba Loya MD, 09/17/2010 11:39 AM PAN CHARGER documented in this encounter Plan of Treatment Not on filedocumented as of this encounter Procedures Procedure Name Priority Date/Time Associated Diagnosis Comme nts SED RATE (ESR) Routine 09/17/2010 9:44 AM Quadriplegia () Re sults for this DRY PAN CHARGER procedure are i n the results section. CBC WITH PLATELET Routine 09/17/2010 9:44 AM Quadriplegia () Results for this DRY PAN CHARGER procedure are i n the results section. documented in this encounter Results (ABNORMAL) XR PELVIS WITH BOTH LAT HIP (09/17/2010 10:28 AM DRY PAN CHARGER) Anatomical Region Laterality Modality Pelvis Computed Radiography Specimen (Source) Anatomical Collection Method Collection Time Re ceived Time Location / / Volume Laterality 09/17/2010 10:28 AM DRY PAN CHARGER Impressions 09/17/2010 10:35 AM DRY PAN CHARGER Impression: Severe osteoarthritis involving both hips with postsurgical fixation of a left hip fracture. There is no cortical irregularity to suggest osteomyelitis. This however lucency surrounding a fe moral IM nail. Three-phase bone scan may be beneficial to assess for infection surrounding the nail if clinically indicated. Reading Radiologist: Khanh Brunson Narrative 09/17/2010 10:35 AM DRY PAN CHARGER History: Rule out osteo. Comparison: None. Findings [...] (ABNORMAL) CBC WITH PLATELET (09/17/2010 9:44 AM DRY PAN CHARGER) P athologist Signature WBC 5.3 4.0 - 10.0 [facility] k/cmm RBC 4.03 (L) 4.60 - 6.00 [facility] m/cmm Hgb 11.8 (L) 13.1 - 17.5 [facility] g/dL Hematocrit 36.4 (L) 40.0 - 51.0 [facility] % MCV 90.3 80.0 - [facility] 100.0 fL MCH 29.3 25.0 - 32.0 [facility] pg MCHC 32.4 31.0 - 36.0 [facility] g/dL RDW 12.8 11.5 - 14.5 [facility] % Plt 308 150 - 400 [facility] k/cmm MPV 8.0 6.5 - 12.5 [facility] fL NRBC .0 0.0 - 0.0 % [facility] Specimen Anatomical Collection Method Collection Time Receive d Time (Source) Location / / Volume Laterality Blood 09/17/2010 9:44 AM 1 9:44 DRY PAN CHARGER AM DRY PAN CHARGER Arnold Mejía MD LABORATORY Performing Organization Address City/[facility]/ZIP [facility] Phon e Number [facility] [place] [address] LAB (ABNORMAL) SED RATE (ESR) (09/17/2010 9:44 AM DRY PAN CHARGER) P athologist Signature Sed Rate 51 (H) 0 - 10 mm/hr [facility] Specimen Anatomical Collection Method Collection Time Receive d Time (Source) Location / / Volume Laterality Blood 09/17/2010 9:44 AM 1 9:44 DRY PAN CHARGER AM DRY PAN CHARGER Arnold Mejía MD LABORATORY Performing Organization Address City/[facility] Phon e Number [facility] [place] [place] [address] LAB documented in this encounter Visit Diagnoses Diagnosis Quadriplegia () - Primary Quadriplegia, unspecified Quadriplegia () Quadriplegia, unspecified documented in this encounter Care Teams Marketing Pr Intern Relationship Specialty Start Date End Date Provider, Outside PCP - General 03/13/09 10/22/18 [place] [address] documented as of this encounter
--- OUTSIDE RECORDS SUMMARY | 2022-05-16 10:01 | XMS_ITS | Encounter Summary ---
:[address] [facility] Address [address] [place] [address] Phone Care Team Providers Name Role Phone Provider, Outside Primary Care Provider Unavailable Reason for Visit Reason Onset Date Comments Refill Request 04/30/2010 Encounter Details Date Type Department Care Team Description 04/30/2010 Refill HFA Urology Omar Savage MD Refill Request [address] [facility], [address] Research Only [place], [place] [address] Social History Tobacco Use Types [...] NOS documented in this encounter Care Teams Speeder Worker Relationship Specialty Start Date End Date Provider, Outside PCP - General 03/13/09 10/22/18 [place] [address] documented as of this encounter
--- OUTSIDE RECORDS SUMMARY | 2022-05-16 10:01 | XMS_ITS | Encounter Summary ---
:1955 Author Organization [facility][Note 2] Address [address] [place] [address] Phone Care Team Providers Name Role Phone Pcp, No Primary Care Provider Unavailable Reason for Visit Reason Onset Date Comments Durable Medical Equipment 02/17/2009 Question about reordering equipment Check/Request Encounter Details Date Type Department Care Team Description 02/17/2009 Telephone HFA Physical Medicin e Reece Ziegler, Durable Medical [address] [facility] RN Equipment Check/Request M50 Multispecialty (Question about [place], [place] [address] Clinic reordering equipment) [phone] [place] [address] Social History Tobacco Use Types Packs/Day Years [...] refill of dourdrem?? Spelling? Pharmacy # is [phone] Pt. Name: Khanh Rene : 1955 (home) Insurance: PCP: No PCP Comment: Expects Return Call at: [phone] or cell [phone] Monday02/17/09 Copy of this phone message given to Dr Frances and she will call patient to check on equipment order needed. Reece Ziegler RN documented in this encounter Plan of Treatment Not on filedocumented as of this encounter Visit Diagnoses Not on filedocumented in this encounter Care Teams Stem Processing Machine Operator Relationship Specialty Start Date End Date Pcp, No PCP - General 01/24/08 03/12/09 [facility] [place] [address] documented as of this encounter
--- OUTSIDE RECORDS SUMMARY | 2022-05-16 10:01 | XMS_ITS | Encounter Summary ---
:1955 Author Organization [facility] Address [address] [place] [address] Phone Care Team Providers Name Role Phone Provider, Outside Primary Care Provider Unavailable Encounter Details Date Type Department Care Team Description 11/15/2010 Office Visit [facility] Phys Med/Rehab Sameera Frances D ecubitus ulcer Clinic (Primary Dx) [address] [facility] [address] Mail Code P5 [place], [place] [address] [place], [place] [phone] (Wo rk) Social History Tobacco Use Types [...] Frances MD - 11/16/2010 10:42 [place] [address] MEDREC#: [id number] PATIENT: MICHEAL RENE : 1955 DATE: 11/15/2010 [...] Physical Medicine and Rehabilitation Service Received in Mandrel Cleaner: 11/15/2010 12:55 M: 11/16/2010 02:37 bj CLR/bj Voice ID: [id number] Document ID: [id number] cc:[place] [address] Sameera Frances MD - 11/15/2010 12:44 PM CDT See dictation Sameera Frances MD, 11/15/2010 12:44 PM documented in this encounter Plan of Treatment Not on filedocumented as of this encounter Visit Diagnoses Diagnosis Decubitus ulcer - Primary Pressure ulcer, unspecified site documented in this encounter Care Teams Coal Pipeline Operator Relationship Specialty Start Date End Date Provider, Outside PCP - General 03/13/09 10/22/18 [place] [address] documented as of this encounter
--- OUTSIDE RECORDS SUMMARY | 2022-05-16 10:01 | XMS_ITS | Encounter Summary ---
:1955 Author Organization [facility] Address [address] [place] [address] Phone Care Team Providers Name Role Phone Provider, Outside Primary Care Provider Unavailable Reason for Visit Reason Comments Follow-up 13 months follow up visit [facility] Dr Frances HFA Monday PM&R Clinic for DX of C7 Spinal Cord Injury Encounter Details Date Type Department Care Team Description 04/20/2010 Office Visit HFA Neuromuscular Sameera Frances Don plegia () Clinic MD Valery (Primary Dx) [address], [address] [place] [address] Mail Code P5 [place], [place] [address] [place], [place] [phone] Social History Tobacco Use Types Packs/Day Years [...] Frances for: 1) Wheelchair repair/s. Faxed to [facility] ([phone]) Referral to [facility]) Formal Wheelchair and wheeled mobility clinic faxedto scheduling to call Micheal to get scheduled ([phone]) Blanca Ziegler RN documented in this encounter Progress Notes Sameera Frances MD - 05/13/2010 3:35 PM CDT [facility] [address] [facility], [address] [place] [address] (fax) MEDREC#: [id number] PATIENT: MICHEAL FLETCHER : 1955 DATE: 04/20/2010 NEUROMUSCULAR PHYSICAL MEDICINE NOTE HISTORY OF PRESENT ILLNESS: Micheal Fletcher is a 55-year-old gentleman with a C7 [employer]inal [employer] B spinal cord [...] be broken as far the spokes. The cpne-fz-bcra stability is poor. The back of the [...] his wheelchair and recommended he see the [facility] for a mapping of his buttocks and a more complete evaluation of his wheelchair. I do not think we need any changes in medications for spasticity. Sameera Frances MD Staff Physician Physical Medicine and Rehabilitation Service Received in Inspector Watch Assembly: 05/11/2010 20:55 M: 05/13/2010 10:09 ms CLR/ms Voice ID: [id number] Document ID: [id number] cc:[place] [address] Sameera Frances MD - 04/20/2010 11:01 AM [...] unspecified documented in this encounter Care Teams Drivability Technician Relationship Specialty Start Date End Date Provider, Outside PCP - General 03/13/09 10/22/18 [place] [address] documented as of this encounter
--- OUTSIDE RECORDS SUMMARY | 2022-05-16 10:01 | XMS_ITS | Encounter Summary ---
:1955 Author Organization [facility] Address [address] [place] [address] Phone Care Team Providers Name Role Phone Unavailable Primary Care Provider Unavailable Encounter Details Date Type Department Care Team Description 09/29/2006 Letters(Tab) [facility] Urology Clinic Omar Savage MD [facility] [address] [facility] [address] [place], [place] [address] Social History Tobacco Use Types Packs/Day Years Used Date Smoking Tobacco: Never Assessed Sex Assigned at Date Recorded Not on file documented as of this encounter Progress Notes Omar Savage MD - 09/29/2006 4:34 PM CST [facility] [address] [place] [address] 09/29/2006 TO: Micheal Rene [address] [place], [place] [address] RE: MICHEAL RENE MR#: [id number] Dear Mr. Rene: From your recent Urology Clinic visit your prostate specific antigen value remains in a normal level and is 2.87. Best wishes and please feel free to contact us for questions. Sincerely, Omar Savage MD Received in Staff Development Manager: 09/29/2006 12:33:54 (M: 09/29/2006 13:29:47 kms) CS/kms Voice ID: [id number] Document ID: [id number] cc: Mihceal Rene [address] [facility] [address] UCTION HONING MACHINE OPERATOR documented in this encounter Plan of Treatment Not on filedocumented as of this encounter Visit Diagnoses Not on filedocumented in this encounter
--- OUTSIDE RECORDS SUMMARY | 2022-05-16 10:01 | XMS_ITS | Encounter Summary ---
:1955 Author Organization [facility] Address [address] [facility] [place] [address] Phone Care Team Providers Name Role Phone Provider, Outside Primary Care Provider Unavailable Reason for Visit Reason Comments Neurologic Problem pmr Encounter Details Date Type Department Care Team Description 11/01/2010 Office Visit [facility] Phys Med/Rehab Sameera Frances D ecubitus ulcer, Clinic MD mackey (Primary Dx) [address] [facility] P5.[address] Mail Code P5 [place], [place] [address] [place], [place] [phone] (Wo rk) Social History Tobacco Use Types [...] CDT Height - - Body Mass Index 19062.15 07/31/2007 3:21 PM TIMBER KILLER documented in this encounter Patient Instructions Patient [...] male with long history of a C7 [employer] B spinal cord [...] male with long history of a C7 [employer] B spinal cord [...] buttock documented in this encounter Care Teams Television Engineering Teacher Relationship Specialty Start Date End Date Provider, Outside PCP - General 03/13/09 10/22/18 [place] [address] documented as of this encounter
--- OUTSIDE RECORDS SUMMARY | 2022-05-16 10:01 | XMS_ITS | Encounter Summary ---
:[address] [facility] Address [address] [place] [address] Phone Care Team Providers Name Role Phone Provider, Outside Primary Care Provider Unavailable Encounter Details Date Type Department Care Team Description 10/19/2010 Refill HFA Urology Omar Savage MD [address] [facility] Research Only [place], [place] [address] Social History Tobacco Use Types [...] Insurance: PCP: Outside Provider Comment: Please call [facility] pharmacy regarding getting an alternative for his medication Propantheline. Please call Ange Valdivia Return Call at: [phone] documented in this encounter Plan of Treatment Not on filedocumented as of this encounter Visit Diagnoses Diagnosis Neurogenic bladder - Primary Neurogenic bladder, NOS documented in this encounter Care Teams Drafter Detail Relationship Specialty Start Date End Date Provider, Outside PCP - General 03/13/09 10/22/18 [place] [address] documented as of this encounter
--- OUTSIDE RECORDS SUMMARY | 2022-05-16 10:02 | XMS_ITS | Clinical Summary ---
:1955 Author Organization [facility] [place] [address] Care Team Providers Name Role Phone Ana Mayers Unavailable Alex Mata MD Primary Care Provider [phone] Allergies Active Allergy Reactions Severity Noted Date Comments Blood-Group Specific Other - Describe In 04/19/2021 Patient has Levi saucedo Substance Comment Field (Fya) antibody . Blood products may be delayed. Dra renee patient 24 hour s prior to transfusion. 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 care, receiving hemodialysis, has chronic open wounds/skin damage, has long-te rm percutaneous indwelling medical devic es Exclusions for nares collection (if <12 months since positive culture) include all of the previous exclusions plus patients on antibiotics 7 days prior to collection Insurance Payer Benefit Plan / Subscriber ID Effective Dates Phone Addre ss Type Group WC [employer] [facility] [id number] 1989-Prese C/O [place] [employer] [address] [place] [address] WC [employer] [facility] [id number] 1989-Prese C/O [employer] [address] [place] [address] MEDICARE PART A - MEDICARE PART [id number] 1991-Presen ATTN: CLAIMS HB USE ONLY A HB ONLY t [address] [facility] [place] [address] [facility] MR [id number] 2020-Presen [address] [address] [place] [address] Khanh Rene Workers Comp Self 1955 [id number] [employer] (Home) [place] [address] Khanh Rene Workers Comp Self 1955 [id number] [employer] (Home) [place]ELINA OL[place]AM[place]HEL[place] [id number] Khanh Rene Personal/Family Self 1955 1 [id number] [employer] (Home) [place]INA CEBALLOSMICHELLE [place] [id number] Advance Directives Latest Code Status on File Code Status Date Activated Date Inactivated Comments Full Code 03/05/2020 6:59 AM 03/09/2020 8:07 PM Code Status Discussion: Not Discussed Full Code 04/25/2016 3:57 PM 05/10/2016 8:47 PM Full Code 2016 6:44 AM 03/14/2016 5:37 PM Full Code 12/16/2015 12:49 PM 12/25/2015 1:24 PM Full Code 12/15/2015 3:46 PM 12/16/2015 12:49 PM Care Teams Welder Plasma Arc Relationship Specialty Start Date End Date Alex Mata MD PCP - General Family Practice 02/04/201999 [place] [address] Ana Mayers Nurse Practitioner 03/02/[address] [place] [address]
--- OUTSIDE RECORDS SUMMARY | 2022-05-16 10:02 | XMS_ITS | Encounter Summary ---
:1955 Author Organization [facility] Address [address] [facility] [place] [address] Phone Care Team Providers Name Role Phone Unavailable Primary Care Provider Unavailable Encounter Details Date Type Department Care Team Description 01/29/2001 Orders Only [facility] Sameera Frances MD [address] [facility] [address] [place], [place] [address] Mail Code P5 [place] [address] (Wo rk) Social History Tobacco [...] Results URINE CX (01/29/2001 3:37 PM CDT) [facility] Method Time Signature Urine Cult [facility] Test Name ? Collected on --------- [...] PM 01/31 CDT 10:25 AM CDT Narrative [facility] - 01/31/2001 10:25 AM CDT Ordered by an unspecified provider. Provider Unknown LAB MICROBIOLOGY Performing Organization Address City/State/ZIP Code Phon e Number [facility] [place] [address] LAB URINALYSIS, TOTAL (01/29/2001 3:37 PM CDT) [facility] Method Time Signature Color YELLOW YELLOW [facility] Appearance CLEAR CLEAR [facility] Urine Glucose NEGATIVE NEGATIVE [facility] Bili UA NEGATIVE NEGATIVE [facility] Ketones NEGATIVE NEGATIVE [facility] Specific [place] 1.010 1.003 - [facility] 1.030 Blood Ur TRACE Neg-Trace [facility] PH Urine 6.5 5.0 - 7.0 [facility] Protein Ur NEGATIVE NEGATIVE [facility] Urobilinogen 0.2 0.2 - 1.0 [facility] EU/dL Nitrite Ur NEGATIVE NEGATIVE [facility] Leuk Est TRACE Neg-Trace [facility] Microscopic [facility] WBC Ur 0 - 5 0 - 5 [facility] Trans Epith 1+ [facility] Sperm 1+ [facility] Specimen Anatomical Collection Method Collection Time Receive d Time (Source) Location / / Volume Laterality Urine 01/29/2001 3:37 PM 1 4:56 CDT PM CDT Narrative [facility] - 01/29/2001 4:56 PM CDT Ordered by an unspecified provider. Provider Unknown LABORATORY Performing Organization Address City/State/ZIP Code Phon e Number [facility] [place] [address] LAB documented in this encounter Visit Diagnoses Not on filedocumented in this encounter
--- OUTSIDE RECORDS SUMMARY | 2022-05-16 10:02 | XMS_ITS | Encounter Summary ---
:1955 Author Organization [facility] Address [address] [place] [address] Phone Care Team Providers Name Role Phone Unavailable Primary Care Provider Unavailable Encounter Details Date Type Department Care Team Description 05/10/2005 EWeb History [facility] EMG Sameera Frances MD [address] [facility] 701 [place], [place] [address] Mail Code P5 [place] [address] (Wo rk) Social History Tobacco Use Types Packs/Day Years Used Date Smoking Tobacco: Never Assessed Sex Assigned at Date Recorded Not on file documented as of this encounter Plan of Treatment Not on filedocumented as of this encounter Visit Diagnoses Not on filedocumented in this encounter
--- OUTSIDE RECORDS SUMMARY | 2022-05-16 10:02 | XMS_ITS | Encounter Summary ---
:[address] [facility] Address [address] [place] [address] Phone Care Team Providers Name Role Phone Unavailable Primary Care Provider Unavailable Encounter Details Date Type Department Care Team Description 07/03/1995 Orders Only [facility] XRAY [address] [place], [place] [address] Social History Tobacco Use Types Packs/Day Years Used Date Smoking Tobacco: Never Assessed Sex Assigned at Date Recorded Not on file documented as of this encounter Plan of Treatment Not on filedocumented as of this encounter Procedures Procedure Name Priority Date/Time Associated Diagnosis Comme nts XR COCCYX AP & LAT Routine 07/03/1995 2:10 PM Res ults for this EMPLOYMENT APPEALS EXAMINER procedure are i n the results section. documented in this encounter Results XR COCCYX AP & LAT (07/03/1995 2:10 PM EMPLOYMENT APPEALS EXAMINER) Anatomical Region Laterality Modality Lumbar Spine Computed Radiography Specimen (Source) Anatomical Collection Method Collection Time Re ceived Time Location / / Volume Laterality 07/03/1995 2:10 PM EMPLOYMENT APPEALS EXAMINER Impressions 07/05/1995 12:33 PM EMPLOYMENT APPEALS EXAMINER : ??Please see Sacrum report dated 07/03/95 1410. ASI END: RELEASE RESULTS: (Y) END RESULT: IMPRESSION Narrative 07/05/1995 12:33 PM EMPLOYMENT APPEALS EXAMINER Final Report EXAM: ?? COCCYX AP & [...]
--- OUTSIDE RECORDS SUMMARY | 2022-05-16 10:02 | XMS_ITS | Encounter Summary ---
:1955 Author Organization Formerly Named [facility] Address [address] [place] [address] Phone Care Team Providers Name Role Phone Unavailable Primary Care Provider Unavailable Encounter Details Date Type Department Care Team Description 10/12/2001 Orders Only [facility] XRAY [address] [place], [place] [address] Social History Tobacco Use Types Packs/Day Years Used Date Smoking Tobacco: Never Assessed Sex Assigned at Date Recorded Not on file documented as of this encounter Plan of Treatment Not on filedocumented as of this encounter Procedures Procedure Name Priority Date/Time Associated Diagnosis Comme nts XR CHEST 2 VIEWS PA Routine 10/12/2001 12:00 PM R esults for this + LAT* HVAC DESIGNER procedure are i n the results section. ULT KIDNEYS Routine 10/12/2001 11:22 AM Results for this COMPLETE HVAC DESIGNER procedure are i n the results section. documented in this encounter Results XR CHEST 2 VIEWS PA & LAT (10/12/2001 12:00 PM HVAC DESIGNER) Anatomical Region Laterality Modality Chest Digital Radiography Specimen (Source) Anatomical Collection Method Collection Time Re ceived Time Location / / Volume Laterality 10/12/2001 12:00 PM HVAC DESIGNER Impressions 10/14/2001 3:54 PM HVAC DESIGNER : 1. ??NO PULMONARY FIBROSIS OR AIR-SPACE INFILTRATE SEEN. 2. ??STABLE RIGHT LOWER LOBE PULMONARY N ODULE, LIKELY CALCIFIED. 3. ??INTERVAL MORE PROMINENT DENSITY OVE R THE MEDIAL ASPECT OF THE RIGHT APEX, OF UNCERTAIN CLINICAL SIGNIFICANCE . ??FURTHER EVALUATION WITH LORDOTIC VIEW MAY BE HELPFUL. ASI END: RELEASE RESULTS: (Y) END RESULT: IMPRESSION Narrative 10/14/2001 3:54 PM HVAC DESIGNER Final Report EXAM: ?? CHEST 2 VIEWS [...] X-RAY ULT KIDNEY COMPLETE (10/12/2001 11:22 AM HVAC DESIGNER) Anatomical Region Laterality Modality Abdomen Ultrasound Specimen (Source) Anatomical Collection Method Collection Time Re ceived Time Location / / Volume Laterality 10/12/2001 11:22 AM HVAC DESIGNER Impressions 10/15/2001 4:06 PM HVAC DESIGNER : 1. ??NO RENAL STONES IDENTIFIED. 2. ??MILD CORTICAL THINNING BILATERALLY. ??THIS MAY INDICATE MEDICAL RENAL DISEASE. I have personally reviewed the image(s) and initial interpretation, and I agree with the findings. ASI END: RELEASE RESULTS: (Y) END RESULT: IMPRESSION Narrative 10/15/2001 4:06 PM HVAC DESIGNER Final Report EXAM: ?? RENAL US: [place] KIDNEYS ?- ??10/12/2001 11:22AM SUSPECTED PATHOLOGY: SYMPTOMS [...] the original. Final Report EXAM: RENAL US: SAC AND [place] KIDNEYS - 002 11:22AM SUSPECTED PATHOLOGY: SYMPTOMS [...]
--- OUTSIDE RECORDS SUMMARY | 2022-05-16 10:02 | XMS_ITS | Encounter Summary ---
:1955 Author Organization [facility] Address [address] [place] [address] Phone Care Team Providers Name Role Phone Unavailable Primary Care Provider Unavailable Encounter Details Date Type Department Care Team Description 08/18/2005 Notes/Trans Unknown, Provider Social History Tobacco Use Types Packs/Day Years Used Date Smoking Tobacco: Never Assessed Sex Assigned at Date Recorded Not on file documented as of this encounter Progress Notes Interface, Digital Campaign Specialist-In - 11/15/2005 1:28 AM CDT [facility] [id number] [facility] PATIENT: MICHEAL FLETCHER [address] [id number] : 1955 [place] [address] DATE: 08/18/2005 Page (fax) The patient is [...] KEFLEX, SHELLFISH, AND AUGMENTIN. His primary care slip feeder is Dr. Sameera Frances whom he sees [...] year's time. Omar Savage MD Received in Digital Campaign Specialist: 08/22/2005 18:11:27 (M: 08/24/2005 17:01:36 cb) CS/cb Voice ID: [id number] Document ID: [id number] cc: This document was electronically signed by Omar Savage MD on 08/26/2005 10:47:02. ? documented in this encounter Plan of Treatment Not on filedocumented as of this encounter Visit Diagnoses Not on filedocumented in this encounter
--- OUTSIDE RECORDS SUMMARY | 2022-05-16 10:02 | XMS_ITS | Encounter Summary ---
:1955 Author Organization [facility] Address [address] [place] [address] Phone Care Team Providers Name Role Phone Unavailable Primary Care Provider Unavailable Encounter Details Date Type Department Care Team Description 05/15/2003 EWeb History [facility] EMG Sameera Frances MD [address] [facility] [address] [place], [place] [address] 2 Mail Code [address] [place] [address] (Wo rk) Social History Tobacco Use Types Packs/Day Years Used Date Smoking Tobacco: Never Assessed Sex Assigned at Date Recorded Not on file documented as of this encounter Plan of Treatment Not on filedocumented as of this encounter Visit Diagnoses Not on filedocumented in this encounter
--- OUTSIDE RECORDS SUMMARY | 2022-05-16 10:02 | XMS_ITS | Encounter Summary ---
:1955 Author Organization [facility] Address [address] [place] [address] Phone Care Team Providers Name Role Phone Unavailable Primary Care Provider Unavailable Encounter Details Date Type Department Care Team Description 03/04/2003 EWeb History [facility] Surgery Clinic Bubba Tavarez MD [address] Mail [address] [place], [place] [address] [address] [place] [address] [phone] (Wo rk) Social History Tobacco Use Types Packs/Day Years Used Date Smoking Tobacco: Never Assessed Sex Assigned at Date Recorded Not on file documented as of this encounter Plan of Treatment Not on filedocumented as of this encounter Visit Diagnoses Not on filedocumented in this encounter
--- OUTSIDE RECORDS SUMMARY | 2022-05-16 10:02 | XMS_ITS | Encounter Summary ---
:1955 Author Organization [facility] Address [address] [place], [place] [address]. [place] [address] Phone Care Team Providers Name Role Phone Unavailable Primary Care Provider Unavailable Encounter Details Date Type Department Care Team Description 12/09/1998 Orders Only [facility] MRI G[address] [place], [place] [address] Social History Tobacco Use Types [...]
--- OUTSIDE RECORDS SUMMARY | 2022-05-16 10:02 | XMS_ITS ---
:1955 Author Care Team Providers Name Role Phone CHETNA MERAZ MD Primary Care Provider [phone] ANN MCLAININA Paper Tester [phone] Allergies Code Code System Name Reaction Severity [...] MOUTH ONCE A DAY FOR 10 DAYS urszxrly-jcvyzyumo-efwotovpm 3.5 mg-10,000 unit/mL-1 % ear d rops,susp [...] Name Performed by ? 09/27/2021 US, Kidney [facility] Radiology Department [address] [place] [address] (Work Place) Results Lab Results Date Name Specimen Result Interpretation Description Value Range Status Address ? 05/06/2021 Culture, BLDV ABNORMAL Final Report microbiology ? Final [place] Urine results Urology [facility] Lab: [address] [facility] [address], [employer] 05/06/2021 Urinalysis ? No ? ? ? , Dipstick observation recorded. 02/18/2021 Culture, UR ABNORMAL Final Report microbiology ? Final [place] Urine results [facility] [place] Lab: [address] [employer] ? Urinalysis ? Color-Status Yellow ? ? [...] ? ? ? Sp 1.015 ? ? Apex-Statu s ? ? ? Nitrates-Sta positive ? ? tus ? ? ? Blood-Status Trace ? Leuko-Status Large ? ? Past Encounters 09/27/2021 Neurogenic Bladder; Spinal Cord Injury; Spasm of Bladder; Recurrent Urinary Tract Infection Jono Pagan MD: [address] [place] [address], Ph. 05/06/2021 Abnormal Urine Jono Pagan MD: [address] [place] [address], Ph. 02/18/2021 Neurogenic Bladder; Spinal Cord Injury; Spasm of Bladder; Recurrent Urinary Tract Infection; Acute Urinary Tract Infection Jono Pagan MD: [address] [place] [address], Ph. Social History Tobacco Smoking Status Former [...]
--- OUTSIDE RECORDS SUMMARY | 2022-05-16 10:02 | XMS_ITS | Encounter Summary ---
:1955 Author Organization [facility] Address [address] [place] [address] Phone Care Team Providers Name Role Phone [...] 08/18/2005 12:00 AM R esults for this ENDODONTIC ASSISTANT procedure are i n the results section. PSA-SCREENING(MT) Routine 08/18/2005 12:00 AM Res ults for this ENDODONTIC ASSISTANT procedure are i n the results section. CREATININE, SERUM Routine 08/18/2005 12:00 AM Res ults for this ENDODONTIC ASSISTANT procedure are i n the results section. documented in this encounter Results PSA-SCREENING(MT) (08/18/2005 12:00 AM ENDODONTIC ASSISTANT) athologist Signature PSA Screen 2.6 0.00 - 4.00 H[facility] LAB NG/ML Specimen (Source) Anatomical Collection Method Collection Time Re ceived Time Location / / Volume Laterality Blood 08/18/2005 08/18/2005 5:07 PM ENDODONTIC ASSISTANT Omar Savage MD LABORATORY Performing Organization Address City/State/ZIP Code Phon e Number HFA LAB BUN (UREA NITROGEN) (08/18/2005 12:00 AM ENDODONTIC ASSISTANT) athologist Signature BUN 9 5 - 25 MG/DL HFA LAB Specimen (Source) Anatomical Collection Method Collection Time Re ceived Time Location / / Volume Laterality Blood 08/18/2005 08/18/2005 5:07 PM ENDODONTIC ASSISTANT Omar Savage MD LABORATORY Performing Organization Address City/State/ZIP Code Phon e Number HFA LAB CREATININE, SERUM (08/18/2005 12:00 AM ENDODONTIC ASSISTANT) P athologist Signature Creatinine <0.5 0.5 - 1.4 H[facility] LAB MG/DL Comment: REPEATED Specimen (Source) Anatomical Collection Method Collection Time Re ceived Time Location / / Volume Laterality Blood 08/18/2005 08/18/2005 5:07 PM ENDODONTIC ASSISTANT Omar Savage MD LABORATORY Performing Organization Address City/State/ZIP Code Phon e Number HFA LAB documented in this encounter Visit Diagnoses Not on filedocumented in this encounter
--- OUTSIDE RECORDS SUMMARY | 2022-05-16 10:02 | XMS_ITS | Encounter Summary ---
:1955 [address] [facility] Address [address] [place] [address] Phone Care Team Providers Name Role Phone Unavailable Primary Care Provider Unavailable Encounter Details Date Type Department Care Team Description 04/03/1997 Orders Only [facility] XRAY [address] [place], [place] [address] Social History Tobacco Use Types [...]
--- OUTSIDE RECORDS SUMMARY | 2022-05-16 10:02 | XMS_ITS | Encounter Summary ---
:1955 Author Organization [facility] Address [address] [place] [address] Phone Care Team Providers Name Role Phone [...]
--- OUTSIDE RECORDS SUMMARY | 2022-05-16 10:02 | XMS_ITS | Encounter Summary ---
:[address] [facility] Address [address] [place], [place] [address]. [place] [address] Phone Care Team Providers Name Role Phone Unavailable Primary Care Provider Unavailable Encounter Details Date Type Department Care Team Description 10/12/2001 Orders Only [facility] Ultrasound [address] [place], [place] [address] Social History Tobacco Use Types Packs/Day Years Used Date Smoking Tobacco: Never Assessed Sex Assigned at Date Recorded Not on file documented as of this encounter Plan of Treatment Not on filedocumented as of this encounter Procedures Procedure Name Priority Date/Time Associated Diagnosis Comme nts ULT KIDNEYS Routine 10/12/2001 11:22 AM Results for this COMPLETE SUPERVISOR WIRE ROPE FABRICATION procedure are i n the results section. documented in this encounter Results ULT KIDNEY COMPLETE (10/12/2001 11:22 AM SUPERVISOR WIRE ROPE FABRICATION) Anatomical Region Laterality Modality Abdomen Ultrasound Specimen (Source) Anatomical Collection Method Collection Time Re ceived Time Location / / Volume Laterality 10/12/2001 11:22 AM SUPERVISOR WIRE ROPE FABRICATION Impressions 10/15/2001 4:06 PM SUPERVISOR WIRE ROPE FABRICATION : 1. ??NO RENAL STONES IDENTIFIED. 2. ??MILD CORTICAL THINNING BILATERALLY. ??THIS MAY INDICATE MEDICAL RENAL DISEASE. I have personally reviewed the image(s) and initial interpretation, and I agree with the findings. ASI END: RELEASE RESULTS: (Y) END RESULT: IMPRESSION Narrative 10/15/2001 4:06 PM SUPERVISOR WIRE ROPE FABRICATION Final Report EXAM: ?? RENAL US: [place] KIDNEYS ?- ??10/12/2001 11:22AM SUSPECTED PATHOLOGY: SYMPTOMS [...] the original. Final Report EXAM: RENAL US: [place] KIDNEYS - 002 11:22AM SUSPECTED PATHOLOGY: SYMPTOMS [...]
--- OUTSIDE RECORDS SUMMARY | 2022-05-16 10:02 | XMS_ITS | Encounter Summary ---
:[address] [facility] Address [address] [place] [address] Phone Care Team Providers Name Role Phone [...]
--- OUTSIDE RECORDS SUMMARY | 2022-05-16 10:02 | XMS_ITS | Encounter Summary ---
:1955 Author Organization [facility] Address [address] [place] [address] Phone Care Team Providers Name Role Phone [...] 09/19/2001 5:05 PM Re sults for this INSPECTOR TECHNICIAN procedure are i n the results section. PSA Routine 09/19/2001 5:05 PM Results f or this DIAGNOSTIC(PROSTATE INSPECTOR TECHNICIAN procedur e are in SPE AG the results section. CREATININE, SERUM Routine 09/19/2001 5:05 PM Resu lts for this INSPECTOR TECHNICIAN procedure are i n the results section. documented in this encounter Results PSA DIAGNOSTIC(PROSTATE SPE AG (09/19/2001 5:05 PM INSPECTOR TECHNICIAN) athologist Signature PSA Diagnostic 0.5 0.00 - 4.00 HFA LAB NG/ML Specimen Anatomical Collection Method Collection Time Receive d Time (Source) Location / / Volume Laterality Blood 09/19/2001 5:05 PM 2 5:26 INSPECTOR TECHNICIAN PM INSPECTOR TECHNICIAN Omar Savage MD LABORATORY Performing Organization Address City/State/ZIP Code Phon e Number HFA LAB BUN (UREA NITROGEN) (09/19/2001 5:05 PM INSPECTOR TECHNICIAN) athologist Signature BUN 13 5 - 25 MG/DL HFA LAB Specimen Anatomical Collection Method Collection Time Receive d Time (Source) Location / / Volume Laterality Blood 09/19/2001 5:05 PM 2 5:26 INSPECTOR TECHNICIAN PM INSPECTOR TECHNICIAN Omar Savage MD LABORATORY Performing Organization Address City/State/ZIP Code Phon e Number HFA LAB CREATININE, SERUM (09/19/2001 5:05 PM INSPECTOR TECHNICIAN) P athologist Signature Creatinine 0.5 0.5 - 1.4 HFA LAB MG/DL Specimen Anatomical Collection Method Collection Time Receive d Time (Source) Location / / Volume Laterality Blood 09/19/2001 5:05 PM 2 5:26 INSPECTOR TECHNICIAN PM INSPECTOR TECHNICIAN Omar Savage MD LABORATORY Performing Organization Address City/State/ZIP Code Phon e Number HFA LAB documented in this encounter Visit Diagnoses Not on filedocumented in this encounter
--- OUTSIDE RECORDS SUMMARY | 2022-05-16 10:02 | XMS_ITS | Encounter Summary ---
:1955 Author Organization [facility] Address [address] [place], [place] [address]. [place] [address] Phone Care Team Providers Name Role Phone Unavailable Primary Care Provider Unavailable Encounter Details Date Type Department Care Team Description 04/03/1997 Orders Only [facility] Ultrasound [address] [place], [place] [address] Social History Tobacco Use Types [...] CDT Final Report EXAM: ?? RENAL US: [place] KIDNEYS ?- ??04/03/1997 01:10PM ?? EXAM: ??RENAL [...] - 03/10/2006 Final Report EXAM: RENAL US: [place] KIDNEYS - 997 01:10PM EXAM: RENAL ULTRASOUND [...]
--- OUTSIDE RECORDS SUMMARY | 2022-05-16 10:02 | XMS_ITS | Encounter Summary ---
:1955 Author Organization [facility] Address [address] [place] [address] Phone Care Team Providers Name Role Phone Unavailable Primary Care Provider Unavailable Encounter Details Date Type Department Care Team Description 05/10/2005 Notes/Trans Unknown, Provider Social History Tobacco Use Types Packs/Day Years Used Date Smoking Tobacco: Never Assessed Sex Assigned at Date Recorded Not on file documented as of this encounter Progress Notes Interface, Founder President And Ceo-In - 11/15/2005 12:30 AM CDT [facility]#: [id number] [place] [address] PATIENT: MICHEAL FLETCHER : 1955 NARRATIVE NOTES [...] a father and a grandfather living in [place]. REVIEW OF SYSTEMS: A total of ten systems were reviewed. He has occasional incontinence of his bowels with his bowel program. He uses a suppository as his abdominal distention tells him he should. That reaches out to be every two to three days. He continues with intermittent cathing. Has a followup with Dr. Savgae for this in the near future. He has had one pressure sore on his left buttock healed with a few days of bed rest. No troubles with spasms. They are present, but not disabling or painful. No troubles with depression. Equipment - he has a new [employer] wheelchair and a J cushion with [...] Physical Medicine and Rehabilitation Service Received in Founder President And Ceo: 05/10/2005 17:00:07 (M: 05/12/2005 12:51:56/[facility]) [facility]/cme Voice ID: [id number] Document ID: [id number] cc: This document was electronically signed by Sameera Frances MD on 06/07/2005 14:43:43. documented in this encounter Plan of Treatment Not on filedocumented as of this encounter Visit Diagnoses Not on filedocumented in this encounter
[2022-05-16 12:14] LABS: Basophils Absolute Auto 0.02 K/uL (0.00-0.30); Basophils Percent Auto 0.2 % (0.0-3.0); Eosinophils Absolute Auto 0.06 K/uL (0.00-0.50); Eosinophils Percent Auto 0.6 % (0.0-7.0); Hematocrit 29.2 % (37.0-53.0); Hemoglobin* 8.9 gm/dL (13.5-17.5); Immature Granulocytes Abs Auto 0.07 K/uL (0.00-0.30); Lymphocytes Percent Auto 8.8 % (20-44); Mean Corpuscular HGB Conc 31 gm/dL (32-36); Mean Corpuscular Hemoglobin 29 pg (26-34); Mean Corpuscular Volume 94 fL (80-100); Neutrophils Percent Auto 81.7 % (42.0-72.0); Platelet Count* 396 K/uL (140-440); RDW Coefficient of Variation % 13.4 % (11.5-15.5); Red Blood Count 3.12 m/uL (4.30-5.90)
[2022-05-16 12:15] LABS: Slide Review Reflex No
[2022-05-16 12:26] LABS: Chloride* 102 mmol/L (96-114); Potassium* 3.2 mmol/L (3.6-5.1); Sodium* 139 mmol/L (135-149)
[2022-05-16 12:28] LABS: Creatinine* 0.5 mg/dL (0.5-1.5); Estimated Glomerular Filt Rate 111 ml/min
[2022-05-16 12:29] LABS: Blood Urea Nitrogen* 12 mg/dL (7-30); Carbon Dioxide* 27 mmol/L (20-32); Glucose* 125 mg/dL (60-115)
== END 2022-05-16 09:55 | disposition home or self-care (01) ==
PROVIDERS: PCP Family Medicine; Visit Provider Nurse Practitioner Family
DX: L89.314 Pressure ulcer of right buttock, stage 4 (principal)
CPT/HCPCS: 36415; 80048; 85025; 86140; 87070; 87186

== ENCOUNTER 2022-05-16 14:37 | Inpatient (IN) | payer OTHER, MEDICARE, SELFPAY ==
[2022-05-16 15:00] VITALS: PULSE 101; RESP 18
[2022-05-16 15:37] VITALS: BP 111/63; PULSE 101; RESP 18; TEMP 37.3; O2SAT 97
[2022-05-16] MEDS: ERTAPENEM 1 GM in 0.9 % SODIUM CHLORIDE Mini-bag 100 ML IVPB (16:52)
[2022-05-16] MEDS: LACTATED RINGERS 1000 ML 1,000 ML 125 ML IV (16:53)
[2022-05-16 17:02] LABS: Lactate* 1.1 mmol/L (0.5-1.9); PCO2 VBG 54 mmHG (40-50); PO2 VBG 27.2 mmHG (25-47)
[2022-05-16 17:03] LABS: HCO3 VBG 27 mmol/L (21-28); Ionized Calcium* 1.14 mmol/L (1.11-1.30)
[2022-05-16 17:04] LABS: pH VBG 7.476 (7.32-7.43)
[2022-05-16 17:05] VITALS: RESP 18; O2SAT 97
[2022-05-16 17:06] LABS: Basophils Absolute Auto 0.01 K/uL (0.00-0.30); Basophils Percent Auto 0.1 % (0.0-3.0); Eosinophils Absolute Auto 0.04 K/uL (0.00-0.50); Eosinophils Percent Auto 0.5 % (0.0-7.0); Hematocrit 27.5 % (37.0-53.0); Hemoglobin* 8.5 gm/dL (13.5-17.5); Immature Granulocytes Abs Auto 0.05 K/uL (0.00-0.30); Lymphocytes Percent Auto 7.7 % (20-44); Mean Corpuscular HGB Conc 31 gm/dL (32-36); Mean Corpuscular Hemoglobin 29 pg (26-34); Mean Corpuscular Volume 93 fL (80-100); Monocytes Percent Auto 7.2 % (0.0-11.0); Neutrophils Percent Auto 83.9 % (42.0-72.0); Platelet Count* 373 K/uL (140-440); RDW Coefficient of Variation % 13.6 % (11.5-15.5); Red Blood Count 2.97 m/uL (4.30-5.90); Slide Review Reflex No; White Blood Count* 8.85 K/uL (4.50-11.00)
[2022-05-16 17:40] VITALS: BP 111/63; PULSE 101; RESP 18; TEMP 37.3; O2SAT 97; BMI 16.4
--- NOTE | 2022-05-16 17:41 | P.GSCN_ITS ---
History of Present Illness Consult details Date Seen: 05/16/22 Consult date: 05/16/22 Narrative: 67-year-old male was admitted to the hospital from wound clinic with necrotic sacral decubitus ulcer. Patient has a complicated history. 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 He has been in a wheelchair for many years. He is able to move his bilateral arms. He had multiple procedures done on his sacrum and bilateral ischeum including debridements and multiple flaps due to decubitus ulcers. He also had a diverting colostomy placed in 2015 prior to placing the most recent flap. Majority of these procedures were done at [facility]. Patient noted a small opening in the skin last summer. He was placing gauze over this opening and felt like that healed. However in the last few days he noticed a lot of drainage coming out from his decubitus skin. He described it as clear. Patient still has some sensation by his sacrum. Yesterday he thought he had a fever because he was sweaty. He did not take his temperature. He was seen in wound clinic today for follow-up of his right heel and foot ulcer and the wound clinic was made aware of his decubitus ulcer. A workup was started that showed an elevated CRP with normal WBC. Review of Systems Narrative: General: Possible fevers HENT: no problems swallowing CV: no shortness of breath Resp: no cough GI: No nausea, vomiting, abdominal pain, his ostomy is working well. : Patient has neurogenic bladder and does self caths Skin: See above Musculoskeletal: No new arm weakness Neuro: Paraplegic [facility]SH [facility] Medical History Acute osteomyelitis of right ankle or foot Bacterial pneumonia (08/27/11) History of cardiac pacemaker (07/14/08) History of methicillin resistant Staphylococcus aureus infection (12/15/15) Neurogenic orthostatic hypotension Stage IV pressure ulcer of sacral region Surgical History History of appendectomy History of arthroscopic knee surgery History of open reduction and internal fixation (ORIF) procedure (12/29/08) S/P colostomy Family History Other Ischemic heart disease Social History (Updated 05/16/22 @ 17:53 by Jimena Fleming MD) Narrative: , disabled, non-smoker. Patient is fairly independent in his wheelchair. Lives in a house with his . Highest level of school completed/degree received: some college, no degree Smoking Status: Former smoker Nicotine containing products detail: May have one cigar a year. Second hand tobacco smoke exposure: No How often do you have a drink containing alcohol: monthly or less How many standard drinks containing alcohol do you have on a typical day: 1 or 2 How often do you have six or more drinks on one occasion: Never AUDIT-C Alcohol total score: 1 Non-prescribed substance use: denies use Caffeine: Yes (2-5 cokes daily) service: No Meds Home Medications and Allergies Home Medications Medication Instructions Recorded Confirmed Type nitrofurantoin macrocrystal 50 mg 50 mg PO DAILY 03/11/22 05/16/22 History capsule oxybutynin chloride 15 mg 15 mg PO BID 03/11/22 05/16/22 History tablet,extended release 24 hr Allergies Allergy/AdvReac Type Severity Reaction Status Date / Time shellfish derived Allergy Severe Vomiting Verified 03/14/22 13:18 amoxicillin Allergy Unknown Hives Verified 03/14/22 13:18 cephalexin Allergy Unknown Hives Verified 03/14/22 13:18 Cephalosporins Allergy Unknown Unknown Verified 03/14/22 13:18 Exam Narrative: Exam Narrative: General appearance: Alert, cooperative, and in no distress Pulmonary: Chest symmetric, breathing is nonlabored Gastrointestinal Abdominal: soft, not tender, not distended, there is an ostomy in the left lower quadrant. The ostomy appliance was not taken off today since patient has no abdominal complaints. Skin: Over the sacrum and right ischial tuberosity there is an open wound with the skin defect of approximately 9-10 cm in diameter. The wound extends towards the scrotum. There is at least 8-9 cm of undermining superiorly and superior medially towards the patient's anus. Although, there is no communication with the anus. The sacral bone is noted in the center of the wound with sharp edges. The sacrum is protruding above the level of soft tissue for almost 1 cm. There was some patchy dusky skin areas but inside of the wound there is frankly purulent fluid with necrotic soft tissue. Psychiatric: Alert, cooperative, normal affect. Const: Vital Signs, click to edit/add: Vital Signs - 24 hr 05/16/22 15:37 05/16/22 15:37 05/16/22 17:05 Temperature 99.1 F Pulse Rate [Left A pical] 101 H Respiratory Rate 18 18 18 Blood Pressure [Ri ght Arm] 111/63 Pulse Oximetry 97 97 97 Oxygen Delivery Me thod Room Air Room Air Room Air Results Labs Labs: Abnormal lab results 05/16/22 05/16/22 Range/Units 16:38 16:38 RBC 2.97 L (4.30-5.90) m/uL Hgb 8.5 L (13.5-17.5) gm/dL Hct 27.5 L (37.0-53.0) % MCHC 31 L (32-36) gm/dL Neut % (Auto) 83.9 H (42.0-72.0) % Lymph % (Auto) 7.7 L (20-44) % Neut # (Auto) 7.40 H (1.7-7.0) K/uL Lymph # (Auto) 0.70 L (0.90-2.90) K/uL VBG pH 7.476 H (7.32-7.43) VBG pCO2 54 H (40-50) mmHG Calcium panel 05/16/22 Range/Units 16:38 Ionized Calcium Risa 1.14 (1.11-1.30) mmol/L All other labs normal. Assessment and Plan Assessment and plan (1) Stage IV pressure ulcer of sacral region: Problem comment: Multiple debridements and flaps over the sacrum and bilateral ischial tuberosity. Status: Acute Plan 67-year-old male with incomplete quadriplegia (can move his arms) presents with recurrence of sacral decubitus ulcer. I discussed with the patient my clinical findings and my findings on exam. Patient does have some necrotic tissue with undermining superiorly. Patient also has his sacral bone protruding through the soft tissue in the middle of the wound. Unfortunately, this patient had multiple debridements in the past with multiple skin flaps. At this time we will focus on debriding his wound to control the source. I will discuss this with orthopedic surgery to see if some of the bone can be shaved off. When patient is stable, he could be referred to Plastic surgery to discuss if a flap would be possible. This might be difficult to do given his thin body habitus and multiple previous procedures. Will plan on doing his procedure tomorrow.
[2022-05-16 17:43] LABS: Albumin* 3.1 g/dL (3.3-5.0)
[2022-05-16 17:44] LABS: Iron* 23 ug/dL (49-181); Lipase* 34 U/L (23-300)
[2022-05-16 17:45] LABS: Gamma Glutamyl Transpeptidase* 34 U/L (8-55); Magnesium* 1.3 mg/dL (1.5-2.6)
[2022-05-16 17:46] LABS: Alanine Aminotransferase* 18 U/L (4-50); Alkaline Phosphatase* 82 U/L (40-150); Aspartate Amino Transferase* 30 U/L (12-35); Bilirubin Direct* 0.2 mg/dL (0.0-0.5); Bilirubin Total* 0.7 mg/dL (0.1-1.5); Total Protein* 6.7 g/dL (6.0-8.3)
[2022-05-16 17:54] LABS: Percent Iron Saturation 13 % (20-50); Total Iron Binding Capacity 184 ug/dL (261-462)
[2022-05-16 18:00] LABS: Troponin I* < 0.01 ng/mL (0.01-0.04)
[2022-05-16 18:03] LABS: Procalcitonin* 0.38 ng/mL (<0.50)
[2022-05-16] MEDS: ALBUMIN HUMAN 25% 100 ML VIAL IV (20:14)
[2022-05-16 20:39] LABS: INR 1.47 (0.91-1.10); Prothrombin Time 18.2 Seconds
[2022-05-16 21:42] LABS: Appearance Urine Cloudy (Clear); Bilirubin Urine Negative (Negative); Blood Urine 3+ (Negative); Color Urine Brown (Yellow); Glucose Urine Negative (Negative); Ketones Urine Negative (Negative); Leukocyte Esterase Urine 1+ (Negative); Nitrite Urine Negative (Negative); Protein Urine 1+ (Negative); Urobilinogen Urine 0.2 (0.2-1.0)
[2022-05-16] MEDS: MAGNESIUM IV 2 GM/50 ML PIGGYBACK IVPB (21:47)
[2022-05-16 21:53] LABS: Bacteria Urine Few; Fine Granular Casts Urine Few; Squamous Epithelial Cell Urine Few (None-Few)
--- NOTE | 2022-05-16 22:27 | PC.NURSE ---
Shift Note [id number]: Direct admit from wound clinic. Pt friendly and cooperative, states he hasn't felt well the last day or two and knew something was brewing. He is a/o and able to verbalize his needs. Has good movement of upper extremities despite being a quadriplegic and can move himself in the bed somewhat independently. No movement to LE's, right calf and heel with open wounds that were cleansed and dressed with hydrofera today 05/16. Wound to right sacral area noted and assessed by wound clinic staff. Wound is large and deep to the bone. Strong, foul, odor with purulent drainage. Dr. Roxanna Fleming in to assess wound and wet-dry dressing applied. Pt T/R Q2H and kept off right side. NPO at midnight with plans for OR debridement tomorrow. Pt on high protein/high calorie diet until NPO status. 20# in right FA, Albumin and Magnesium Sulfate infused.
[2022-05-16 23:00] VITALS: BP 113/53; PULSE 83; RESP 18; TEMP 36.4; O2SAT 96
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
[2022-05-17] VITALS (14 sets, daily range): BP systolic 80–145; BP diastolic 36–71; PULSE 74–93; RESP 14–18; TEMP 36.3–36.9; O2SAT 79–99; BMI 16.4
[2022-05-17] MEDS: POTASSIUM CHLORIDE 10 MEQ/100 ML PIGGYBACK 100 MEQ IVPB ×4 (00:29→16:52)
[2022-05-17] MEDS: LACTATED RINGERS 1000 ML 1,000 ML 125 ML IV ×2 (05:32→21:40)
--- NOTE | 2022-05-17 06:15 | PC.NURSE ---
Shift note: Pain is well tolerated and refused pain medication. Turned and reposition every 2 hours. No urine retention noticed this shift. V/S WNL.
[2022-05-17 06:31] LABS: Hematocrit 24.3 % (37.0-53.0); Mean Corpuscular HGB Conc 31 gm/dL (32-36); Mean Corpuscular Hemoglobin 29 pg (26-34); Mean Corpuscular Volume 93 fL (80-100); Platelet Count* 366 K/uL (140-440); Red Blood Count 2.62 m/uL (4.30-5.90); White Blood Count* 6.78 K/uL (4.50-11.00)
[2022-05-17 06:38] LABS: Hemoglobin* 7.5 gm/dL (13.5-17.5)
[2022-05-17 06:49] LABS: Chloride* 104 mmol/L (96-114); Potassium* 3.4 mmol/L (3.6-5.1); Sodium* 135 mmol/L (135-149)
[2022-05-17 06:52] LABS: Creatinine* 0.5 mg/dL (0.5-1.5); Est. Creatinine Clearance* 54.89; Estimated Glomerular Filt Rate 111 ml/min
[2022-05-17 06:53] LABS: Blood Urea Nitrogen* 11 mg/dL (7-30); Calcium* 7.3 mg/dL (8.4-10.6); Carbon Dioxide* 27 mmol/L (20-32); Glucose* 88 mg/dL (60-115); Magnesium* 1.9 mg/dL (1.5-2.6)
[2022-05-17 06:55] LABS: C Reactive Protein* 8.8 mg/dL (0.5-1.0)
[2022-05-17 08:13] LABS: INR 1.27 (0.91-1.10); Prothrombin Time 16.6 Seconds
--- NOTE | 2022-05-17 09:08 | CRLHL7_ITS ---
For Patients: As a result of the Cures Act, medical imaging exams and procedure reports are released immediately into your electronic medical record. You may view this report before your referring provider. If you have questions, please contact your health care provider. Indication: NEED LATERAL VIEW TO EVAL THICKNESS OF COCCYX PREOP Technique: XRay Pelvis SACRUM/COCCYX limited one-view Comparison: None. Impression: Limited portable lateral view of the coccyx is suboptimal with limited visualization of the sacrum/coccyx. Dictated by Tashi Mckee MD @ 05/17/2022 3:38:05 PM (Electronically Signed)
--- NOTE | 2022-05-17 09:28 | REH.PT ---
PT/OT evals on hold. Pt to OR today for sx debridement of wound.
[2022-05-17 11:33] LABS: Hemoglobin* 8.3 gm/dL (13.5-17.5)
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
--- NOTE | 2022-05-17 16:08 | PC.SOCIAL ---
Discharge planning- Phone call to pt's , [place] at [phone]. Pt previously lived at home with his . is hoping pt is well enough to come home with home health care. reports that pt has previously had home health care with [facility] in the past. states that she is now retired and can provide care to pt. Will follow up with pt and pt's to continue discharge plans when pt is near discharge. Provided pt's with [email or web address] work phone number.
--- NOTE | 2022-05-17 16:23 | PM.GSPRC ---
Operative Note Date of procedure: 05/17/22 Type of Procedure: 1. Excisional debridement of right ischial decubitus ulcer 13 x 9 cm. Procedure Description: After discussing the risks and benefits of the procedure, the patient signed informed consent.? The operative site was marked and the patient was brought to the operating room and placed on the operating table in the lateral decubitus position. Spinal anesthesia was administered and patient was then positioned on the operating table in the left lateral decubitus position.? Care was taken to pad the patient's pressure points.?? The patient was then sedated by anesthesia.?? The operative site was then prepped and draped in the usual sterile fashion.? A time-out was then performed. Necrotic skin edge was debrided with cautery. There was fat and soft tissue that was necrotic inferiorly extending into the scrotum. This was debrided with cautery as well. Majority of the wound bed had hypergranulation tissue covering the bed. This was debrided with a curette and cautery. The necrotic periosteum near the right ischial was also debrided. The right ischium itself was sharp and protruding through the wound. This was debrided down with a rongeur and filed until smooth to touch. Chunks of bone was sent to microbiology to rule out osteomyelitis. The wound was irrigated with normal saline. The the area that was sharply debrided down to the bleeding subcutaneous fat and bone was measuring 13 x 9 cm. The open skin wound was measuring 10 x 6.5 cm. There was several cm of undermining superiorly and minimal undermining medially and laterally. Hemostasis was achieved with cautery and Vicryl stick ties. The wound was then packed with moist Kerlix roll and covered by ABD pads. ? The patient was then woken and transported to the recovery area in stable condition. ? The patient tolerated the procedure well. Findings: The protruding bone was trimmed down to just above soft tissue and any sharp edges were smoothed. Necrotic skin and soft tissue were debrided. The wound was packed with Kerlix roll. Anesthesia: local and spinal Surgeon: Jimena Fleming MD Estimated blood loss (mL): 5 Condition: stable Disposition: PACU
--- NOTE | 2022-05-17 16:28 | W.ANESCHARGE ---
Anesthesia Charges Start Date/Time Anesthesia Start Date: 05/17/22 Anesthesia Start Time: 15:13 Stop Date/Time Anesthesia Stop Date: 05/17/22 Anesthesia Stop Time: 16:20 Summary Emergency: No
[2022-05-17] MEDS: ERTAPENEM 1 GM in 0.9 % SODIUM CHLORIDE Mini-bag 100 ML IVPB (18:53)
[2022-05-17] MEDS: 0.9 % SODIUM CHLORIDE 250 ml IV (18:53)
[2022-05-17 19:49] LABS: Slide Review Reflex No
--- NOTE | 2022-05-17 20:02 | PC.NURSE ---
PATIENT PLEASANT AND COOPERATIVE, TURN AND REPO Q2H AND PRN PER PATIENT REQUEST, PRIOR TO ULCER DEBRIDEMENT TOP DRESSING (ABD PAD) CHANGED X2 DUE TO BEING SOILED, AROUND 1500 PATIENT TO OR FOR ULCER DEBRIDEMENT AND BACK TO FLOOR AROUND 1700, PATIENT ALERT AND ORIENTED TALKATIVE WITH STAFFING, DRESSING CDI, ABLE TO ADVANCE TO REGULAR DIET WITHOUT NAUSEA OR VOMITING, PATIENT SELF CATHS, SELF CARES WITH COLOSTOMY, DECLINING PAIN, AFTER DEBRIDEMENT PATIENT DID EXPRESS SOME BACK PAIN THAT GOT BETTER WITH REPOSITIONING, [facility] PRESENT AND WILL SEE PATIENT MONDAY TO CHANGED RIGHT HEEL AND CALF DRESSING.
[2022-05-18] MEDS: LACTATED RINGERS 1000 ML 1,000 ML 125 ML IV ×3 (02:59→17:30)
[2022-05-18 03:00] VITALS: BP 108/70; PULSE 83; RESP 18; TEMP 36.8; O2SAT 95
--- NOTE | 2022-05-18 05:12 | PC.NURSE ---
Shift note: IV canula inserted on left arm due to blockage and leakage in the previous 2 IV lines. Old IV lines removed. Bp has improved and other v/s recorded WNL. Dressing to the right sacrum changed. Pt resume regular diet after surgery and instructed on the need to need high protein diet. Pain tolerated very well, no n/v.
[2022-05-18 06:57] LABS: Mean Corpuscular HGB Conc 31 gm/dL (32-36); Mean Corpuscular Hemoglobin 29 pg (26-34); Mean Corpuscular Volume 94 fL (80-100); Platelet Count* 435 K/uL (140-440); Red Blood Count 2.77 m/uL (4.30-5.90); White Blood Count* 6.37 K/uL (4.50-11.00)
[2022-05-18 07:10] LABS: Slide Review Reflex No
[2022-05-18 07:12] LABS: Chloride* 106 mmol/L (96-114); Potassium* 3.5 mmol/L (3.6-5.1); Sodium* 140 mmol/L (135-149)
[2022-05-18 07:15] LABS: Creatinine* 0.6 mg/dL (0.5-1.5); Est. Creatinine Clearance* 54.89; Estimated Glomerular Filt Rate 105 ml/min
[2022-05-18 07:16] LABS: Blood Urea Nitrogen* 11 mg/dL (7-30); Calcium* 8.2 mg/dL (8.4-10.6); Carbon Dioxide* 28 mmol/L (20-32); Glucose* 98 mg/dL (60-115)
[2022-05-18 07:19] LABS: C Reactive Protein* 7.8 mg/dL (0.5-1.0)
[2022-05-18 07:33] LABS: Procalcitonin* 0.19 ng/mL (<0.50)
[2022-05-18 08:15] VITALS: BP 125/63; PULSE 86; RESP 18; TEMP 36.6; O2SAT 96
[2022-05-18] MEDS: POTASSIUM BICARB 25 MEQ EFFERVESCENT TAB PO (10:08)
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
--- NOTE | 2022-05-18 11:56 | REH.PT ---
PT note: per Dr. Orellana, niecy PT with OT working on positioning.
[2022-05-18 12:00] VITALS: BP 139/73; PULSE 87; RESP 20; TEMP 36.6; O2SAT 96
--- NOTE | 2022-05-18 13:47 | PC.NURSE ---
1110 am- No dysphagia with meds. MRSA precautions continue. Dr. Bull will be in to manage wound cares later this am. Pt straight caths himself and manages his own colostomy. Specialty mattress d/to existing pressure ulcers. No dysphagia with am med pass 15 mg of oxybutynin verified with [facility]. Pt denied pain at initial assessment this morning. 25 mEQ of effervescent potassium given per new order. Plan PICC line placement at 4pm this afternoon. Report given to Rossana Barros RN who assumed primary care of this patient.
--- NOTE | 2022-05-18 14:07 | PM.GSPN ---
Subjective Subjective Date Seen: 05/18/22 Interval history: Patient did well overnight. He did not have any bleeding from his wound. His dressing change was not done yet today. His pain is controlled. He states that he is not taking any pain medication. Exam Narrative: Exam Narrative: Buttocks: The ABD pads covering the open wound were soaked in serosanguineous drainage. Those were removed. The Kerlix packing is moist with no significant bleeding in the packing. Const: Vital Signs, click to edit/add: Vital Signs - 24 hr 05/17/22 17:00 05/17/22 17:15 05/17/22 17:30 Temperature 97.5 F L 98.0 F Pulse Rate 74 Pulse Rate [Left A pical] 81 82 Respiratory Rate 16 16 16 Blood Pressure [Ri ght Arm] 86/49 L 115/58 L 81/36 L Pulse Oximetry 98 97 Oxygen Delivery Me thod Room Air Room Air Room Air 05/17/22 17:45 05/17/22 18:00 05/17/22 18:30 Temperature Pulse Rate Pulse Rate [Left A pical] 82 83 84 Respiratory Rate 16 14 16 Blood Pressure [Ri ght Arm] 90/49 L 94/65 100/56 L Pulse Oximetry 97 99 99 Oxygen Delivery Nm thod Room Air Room Air Room Air 05/17/22 19:00 05/17/22 19:00 05/17/22 20:00 Temperature 98.0 F 97.4 F L 97.4 F L Pulse Rate Pulse Rate [Left A pical] 81 77 77 Respiratory Rate 16 16 16 Blood Pressure [Ri ght Arm] 80/51 L 96/52 L 88/41 L Pulse Oximetry 97 97 97 Oxygen Delivery Me thod Room Air Room Air Room Air 05/17/22 21:00 05/17/22 22:00 05/18/22 03:00 Temperature 97.7 F 97.7 F 98.2 F Pulse Rate Pulse Rate [Left A pical] 87 84 83 Respiratory Rate 16 16 18 Blood Pressure [Ri ght Arm] 83/54 L 82/41 L 108/70 Pulse Oximetry 93 88 95 Oxygen Delivery Me thod Room Air Room Air Room Air 05/18/22 08:15 05/18/22 12:00 Temperature 98 F 97.8 F Pulse Rate Pulse Rate [Left A pical] 86 87 Respiratory Rate 18 20 Blood Pressure [Ri ght Arm] 125/63 139/73 Pulse Oximetry 96 96 Oxygen Delivery Me thod Room Air Progress Note: A&P Assessment and plan (1) Pressure ulcer of ischium, stage 4: Status: Acute Plan 67-year-old male with recurrent decubitus ulcers s/p excisional debridement POD 1. I discussed with the patient that we will continue wet to dry dressing changes. I communicated this with the nurses and they will do the dressing change later today when patient's can observe the dressing change. If patient's can get the changes done at home, patient would be able to discharge without home care. Patient will need to see us in wound clinic next week. I will discuss with the hospitalist the plan for discharge.
[2022-05-18 15:00] VITALS: PULSE 92; RESP 18
[2022-05-18 16:00] VITALS: BP 121/69; PULSE 92; RESP 18; TEMP 36.6; O2SAT 96
[2022-05-18] MEDS: OXYCODONE 5 MG TABLET PO (16:26)
[2022-05-18] MEDS: ACETAMINOPHEN 325 MG TABLET PO (16:26)
[2022-05-18] MEDS: ERTAPENEM 1 GM in 0.9 % SODIUM CHLORIDE Mini-bag 100 ML IVPB (16:34)
--- NOTE | 2022-05-18 18:53 | REH.OT ---
OT: Awaiting clarification of activity orders to determine DME needs post op. Nursing does have air mattress for patient and he reports it is being replaced again today. Patient reports he was independent with pivot transfers at baseline and has air mattress and own w/c with jamil cushion at home. Patient reports he sits up for hours at a time at baseline, despite chronic sacral ulcer. Called wound care clinic to clarify if patient is to be bed bound while healing with repositioning and DME to aid in offloading vs sitting up for limited periods of time. Wound clinic reports needs to be clarified through surgeon. OT spoke with charge nurse to request clarification from surgeon. Will plan to follow up tomorrow to determine if addiitonal needs for DME in hospital.
[2022-05-18 20:00] VITALS: BP 107/62; PULSE 87; RESP 18; TEMP 36.7; O2SAT 98
--- NOTE | 2022-05-18 23:49 | PC.NURSE ---
Shift Note: VS WNL and LS COA. Rates pain 5/10, PRN oxycodone and Tylenol given post dressing change. Wet to dry dressing changed this afternoon, wound did have moderate/large amounts of serosanguineous/bloody drainage. Encouraged high protein food choices, pt drank one Ensure clear and one Januven collagen supplement this shift along with tray orders. Continues to manage ostomy and straight cath independently. T&R Q2H.
[2022-05-19] VITALS (11 sets, daily range): BP systolic 107–176; BP diastolic 63–82; PULSE 79–96; RESP 16–18; TEMP 36.5–36.9; O2SAT 93–97
[2022-05-19 06:38] LABS: Hematocrit 31.5 % (37.0-53.0); Hemoglobin* 9.8 gm/dL (13.5-17.5); Mean Corpuscular HGB Conc 31 gm/dL (32-36); Mean Corpuscular Hemoglobin 29 pg (26-34); Mean Corpuscular Volume 93 fL (80-100); Platelet Count* 476 K/uL (140-440); White Blood Count* 6.72 K/uL (4.50-11.00)
[2022-05-19 06:40] LABS: Slide Review Reflex No
[2022-05-19 06:59] LABS: Chloride* 103 mmol/L (96-114)
[2022-05-19 07:00] LABS: Potassium* 4.1 mmol/L (3.6-5.1); Sodium* 136 mmol/L (135-149)
[2022-05-19 07:02] LABS: Creatinine* 0.6 mg/dL (0.5-1.5); Est. Creatinine Clearance* 54.89; Estimated Glomerular Filt Rate 105 ml/min
[2022-05-19 07:03] LABS: Blood Urea Nitrogen* 14 mg/dL (7-30); Carbon Dioxide* 30 mmol/L (20-32); Glucose* 98 mg/dL (60-115)
[2022-05-19 07:04] LABS: Calcium* 8.3 mg/dL (8.4-10.6)
[2022-05-19 07:06] LABS: C Reactive Protein* 6.5 mg/dL (0.5-1.0)
--- NOTE | 2022-05-19 07:20 | PC.NURSE ---
Shift note:' The dressing to right coccyx and right calf and heel have been C/D/I. The pt has been denying pain. Self straight cath x2 this shift- 300 cc urine out put. Small BM noted in the colostomy bag; the pt stated it is too soon to empty The pt refused to be turned stating I am comfortable the way I am but let the designer writer to be turned at about 0430. The pt got 1 unit of blood this shift; tolerated the blood product. The pt denied any chest pain and other distress.
[2022-05-19 08:18] LABS: Procalcitonin* 0.14 ng/mL (<0.50)
[2022-05-19] MEDS: POTASSIUM CHLORIDE 10 MEQ CAPSULE ER 20 MEQ PO (10:15)
--- NOTE | 2022-05-19 13:59 | REH.OT ---
OT: Met with wound care staff, Yamile, and patient has Prevalon and Podus boots for positioning to protect heel at home. [place] [facility] [place]. Patient would benefit from pressure mapping for w/c cushion and mattress, it is unclear if this has occurred yet. The patient was unable to give specifics regarding this. The patient may also benefit from w/c with tilt option to aid in offloading and repositioning. Awaiting clarification of amount of time recommended for patient to sit up in chair and spoke with charge nurse.
--- NOTE | 2022-05-19 14:07 | REH.OT ---
Returned for further clarification from patient regarding DME for home and OP follow up for pressure mapping and pt unavailable, out of room due to family emergency with father in law. Pt to return this evening for IV antibiotics per nsg.
--- NOTE | 2022-05-19 15:19 | PC.NURSE ---
Addendum entered by Veronika Joe RN 05/19/22 17:45: PATIENT RETURNED TO UNIT AT 1625. Original Note: PATIENT UPDATED STAFFING AROUND 1100 MY JUST CALLED AND HER DAD IS ACTIVELY DYING, I NEED TO LEAVE AND BE THERE, REPACKER UPDATED CHARGE NURSE AND NOVELTY WORKER, PATIENT STATED OF HIS NEED TO LEAVE DO WHATEVER YOU NEED TO GET ME DISCHARGED I HAVE TO LEAVE, OKAY FOR PATIENT TO LEAVE AND COME BACK, [employer] INVESTIGATOR ALSO UPDATED, PATIENT SIGNED LEAVE THE UNIT FORM, PATIENTS BROTHER HERE AT 1300 AND PATIENT LEFT WITH THE PLAN TO RETURN AROUND 1600.
--- NOTE | 2022-05-19 16:19 | PC.SOCIAL ---
Discharge planning- Made a phone call to [facility] to see if they are able to provide Nursing for pt at home. [facility] states they can go to the home 2 times a week. Sent initial information to [facility] via fax. Completed face to face home health orders form and waiting on MD to complete. Informed [facility] that this worker will send the home care orders form when it is completed. phone call to [facility]. Pt is in need of a hospital bed with a group 2 mattress. Pt will also require home health care nursing for wound care 2 times a week. [facility] will see pt on Mondays and will order a wound vac for pt. Wound care clinic provided an email for pt's insurance company to inquire on where to get the hospital bed and mattress ordered from. Email address for insurance is [email or web address]. Sent an email to Eugenie at [email or web address] informing her that pt is in need of a hospital bed an mattress and asking where this can be ordered from.
--- NOTE | 2022-05-19 16:21 | PM.GSPN ---
Subjective Subjective Date Seen: 05/19/22 Interval history: I was not able to see the patient Today since he checked out on a pass due to family emergency. Exam Const: Vital Signs, click to edit/add: Vital Signs - 24 hr 05/18/22 20:00 05/19/22 02:38 05/19/22 03:00 Temperature 98.1 F 98.3 F 98.3 F Pulse Rate 80 80 Pulse Rate [Left A pical] 87 Respiratory Rate 18 18 18 Blood Pressure 112/63 107/66 Blood Pressure [Ri ght Arm] 107/62 Pulse Oximetry 98 95 96 Oxygen Delivery Me thod Room Air 05/19/22 00:00 05/19/22 00:00 05/19/22 03:45 Temperature 98.3 F 97.7 F Pulse Rate 87 Pulse Rate [Left A pical] 81 81 Respiratory Rate 18 18 18 Blood Pressure 124/69 Blood Pressure [Ri ght Arm] 127/74 Pulse Oximetry 97 97 Oxygen Delivery Me thod Room Air 05/19/22 04:00 05/19/22 04:45 05/19/22 06:35 Temperature 97.7 F 98.4 F 97.8 F Pulse Rate 84 79 Pulse Rate [Left A pical] 87 Respiratory Rate 18 18 18 Blood Pressure 149/82 H 149/82 H Blood Pressure [Ri ght Arm] 124/69 Pulse Oximetry 97 95 97 Oxygen Delivery Me thod Room Air 05/19/22 09:00 Temperature 98.4 F Pulse Rate Pulse Rate [Left A pical] 88 Respiratory Rate 16 Blood Pressure Blood Pressure [Ri ght Arm] 157/73 H Pulse Oximetry 96 Oxygen Delivery Me thod Room Air
--- NOTE | 2022-05-19 16:24 | PM.WSCN ---
Date of Consult Consult date: 05/19/22 Requesting Physician: Hospitalist Primary Care Provider: Alex Mata MD Consult Narrative Reason for consult: stage 4 pressure ulcers Narrative: Khanh Rene is a 67 year old male known to wound center who is currently inpatient s/p right buttock and ischial tuberosity OR excisional debridement and bone shave completed by general surgery. Patient was seen in wound clinic by this fiction and nonfiction prose writer on 05/16/22 for f/u of his RLE calf and calcaneus stage 4 pressure ulcers and brought it to my attention that he had a new wound to right posterior ischium. Patient reported he noticed skin breakdown to the area about 4-6 weeks ago, but he thought it had healed/closed which is why he did not notify the wound center staff. He now believes the area must have festered, below the surface as he reported 3-4 days before that he began experiencing fever, chills, and malaise, he did not check his temp. at home. Reported 1-2 days of foul smelling drainage from the area. D/t the wound location patient was not able to fully visualize the area. Knowing he had an upcoming appt. at the wound center, he felt it was reasonable to wait until the appt. to have the area evaluated. 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 Xray did not show presence of osteo. Labs completed in wound center showed normal WBC, elevated neutrophils, and elevated CRP of 14, HGB of 8.9. Consultation with General surgery and hospitalist completed and agreement that d/t unstable wound and patient showing early signs of sepsis, direct admission and planned OR excisional debridement was needed. Khnah has always been mindful to focus on repositioning and avoiding apply pressure to his sacral region for an extended period of time. At home his mattress has a 1 inch thick mattress overlay, his wheelchair has been custom fitted with offloading cushion after he completed pressure mapping at [facility] within the past 11 months. Despite all these interventions he developed a stage 4 unstable pressure ulcer with protruding jagged bone to his right i that required surgical intervention.. Patient is a wheelchair dependent quadriplegic with incomplete C5-C7, loss of sensation from nipples down, but does utilize his arms to reposition himself. He lives in his own home with his [place]. Patient to return home, however he does not have a low airloss alternating pressure mattress or hospital bed, which he will need in order to heal pressure ulcers and decrease chances of hospital readmission. This will also be required for authorization of the woundvac. Plans for home health nursing to assist with wound cares. will complete daily dressing changes ordered by general surgery until woundvac is applied. Will transition to PO antibiotics upon discharge. Currently completing 1-2x wet-dry dressing changes ordered by general surgery post-op, pending woundvac order that is to be applied in wound center next week. Since hospitalized he has completed nutrition consult, received nutritional replacements as well as blood infusion for anemia. Continues to receive IV antibiotics that is being managed by hospital medicine team. He is on chronic macrobid for chronic UTIs- he independently performs self caths. He independently manages his colostomy. Patient reports controlled pain. He denies fever, chills, or malaise. He appears comfortable in the hospital bed, wearing his prevlon pressure relieving boots, his right side is properly offloaded. His RLE wounds last had dressings changed on 05/16/22. Hospital services requesting assistance with RLE wounds. No strike through drainage noted on the light kerlix wrap that was utilized to hold RLE dressings in place. Dressings removed to fully visualize the wound beds. 4 wounds in total to RLE. See exam for wound details. Review of Systems Status of ROS: Reports: 10 or more systems reviewed and unremarkable except as noted in History and below [facility] Medical History Anemia, chronic disease Chronic UTI History of cardiac pacemaker (07/14/08) History of methicillin resistant Staphylococcus aureus infection (12/15/15) Neurogenic bladder Neurogenic orthostatic hypotension Poor intravenous access Quadriplegia, C5-C7 incomplete Stage IV pressure ulcer of sacral region Surgical History History of appendectomy History of arthroscopic knee surgery History of open reduction and internal fixation (ORIF) procedure (12/29/08) S/P colostomy Family History Other Ischemic heart disease Social History Narrative: , disabled, non-smoker. Patient is fairly independent in his wheelchair. Lives in a house with his . Highest level of school completed/degree received: some college, no degree Smoking Status: Former smoker Nicotine containing products detail: May have one cigar a year. Second hand tobacco smoke exposure: No How often do you have a drink containing alcohol: monthly or less How many standard drinks containing alcohol do you have on a typical day: 1 or 2 How often do you have six or more drinks on one occasion: Never AUDIT-C Alcohol total score: 1 Non-prescribed substance use: denies use Caffeine: Yes (2-5 cokes daily) service: No Meds Home Medications and Allergies Home Medications Medication Instructions Recorded Confirmed Type nitrofurantoin macrocrystal 50 mg 50 mg PO DAILY 03/11/22 05/16/22 History capsule oxybutynin chloride 15 mg 15 mg PO BID 03/11/22 05/16/22 History tablet,extended release 24 hr Allergies Allergy/AdvReac Type Severity Reaction Status Date / Time shellfish derived Allergy Severe Vomiting Verified 03/14/22 13:18 amoxicillin Allergy Unknown Hives Verified 03/14/22 13:18 cephalexin Allergy Unknown Hives Verified 03/14/22 13:18 Cephalosporins Allergy Unknown Unknown Verified 03/14/22 13:18 Exam Narrative: Exam Narrative: General: NAD, comfortable Head: NC/AT Eyes: conjunctive clear w/o drainage. Resp: room air, unlabored, speaking in full sentences, symmetrical rise. MSK: thin, atrophied muscles to lower half. Skin: dry Right ischium stage 4 pressure ulcer measuring [id number], undermining nearly circumferential with deepest of 4cm at 2o'clock. Exposed bone, no notable necrotic tissue. Right posterior calf stage 4 pressure ulcer: measuring 9.3cmX3.4cmX0.4cm, large amount of slough and soft black/brown eschar of muscle, small amount of pink/red granulation. moderate drainage serosang. Right posterior calcaneus: 5.6cmX6.1cmX0.4cm. 10% eschar, 40% slough, 50% healthy pink/red granulation. moderate drainage serosang Right lateral calcaneus: 4.5cmX2.9cmX0.3cm 75% eschar and slough, 25% healthy pink/red granulation moderate drainage serosang Psych: normal affect Const: Vital Signs, click to edit/add: Vital Signs - 24 hr 05/18/22 20:00 05/19/22 02:38 05/19/22 03:00 Temperature 98.1 F 98.3 F 98.3 F Pulse Rate 80 80 Pulse Rate [Left A pical] 87 Respiratory Rate 18 18 18 Blood Pressure 112/63 107/66 Blood Pressure [Ri ght Arm] 107/62 Pulse Oximetry 98 95 96 Oxygen Delivery Me thod Room Air 05/19/22 00:00 05/19/22 00:00 05/19/22 03:45 Temperature 98.3 F 97.7 F Pulse Rate 87 Pulse Rate [Left A pical] 81 81 Respiratory Rate 18 18 18 Blood Pressure 124/69 Blood Pressure [Ri ght Arm] 127/74 Pulse Oximetry 97 97 Oxygen Delivery Me thod Room Air 05/19/22 04:00 05/19/22 04:45 05/19/22 06:35 Temperature 97.7 F 98.4 F 97.8 F Pulse Rate 84 79 Pulse Rate [Left A pical] 87 Respiratory Rate 18 18 18 Blood Pressure 149/82 H 149/82 H Blood Pressure [Ri ght Arm] 124/69 Pulse Oximetry 97 95 97 Oxygen Delivery Me thod Room Air 05/19/22 09:00 Temperature 98.4 F Pulse Rate Pulse Rate [Left A pical] 88 Respiratory Rate 16 Blood Pressure Blood Pressure [Ri ght Arm] 157/73 H Pulse Oximetry 96 Oxygen Delivery Me thod Room Air Documenting provider has reviewed patient's vital signs: yes Labs Labs: Short CBC 05/19/22 Range/Units 06:08 WBC 6.72 (4.50-11.00) K/uL Hgb 9.8 L (13.5-17.5) gm/dL Hct 31.5 L (37.0-53.0) % Plt Count 476 H (140-440) K/uL BMP 05/19/22 06:08 Sodium 136 Potassium 4.1 Chloride 103 Carbon Dioxide 30 BUN 14 Creatinine 0.6 Glucose 98 Calcium 8.3 L Assessment and Plan Assessment and plan (1) Pressure ulcer of ischium, stage 4: Status: Acute (2) Anemia, chronic disease: Status: Acute (3) Quadriplegia, C5-C7 incomplete: Problem comment: 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 diverting colostomy; self-catherization; recurrent and chronic osteomyelitis. Status: Acute (4) Pressure injury of right heel, stage 4: Problem comment: stable. Status: Acute (5) Pressure ulcer of right leg, stage 4: Status: Acute Plan Stage 4 pressure ulcer of right ischium & RLE stage 4 pressure ulcers: Due to patient limited mobility, stage 4 pressure ulcer to pelvic region, , impaired nutritional status, and altered sensory perception it will be medically necessary for patient to receive a group 1 or group 2 support mattress and hospital bed to be utilized in his home for the next 60 days to facilitate wound healing and for authorization of woundvac. Once patient has proper pressure relieving support surface in place he may discharge home. Social work to work with patient workmans comp health insurance adjuster to get support surface ordered and delivered to patients home [place]. Anticipate discharge over the weekend to home. Plan for 05/23/22 0900 wound center appt. for follow-up. Woundvac has been ordered. If available for application at that visit will plan for initial application. Home health nursing to go to patients home 2-3x week to assist with woundvac changes once the woundvac has been applied. to continue with 1-2x daily wet-dry dressing changes until woundvac is applied. Offloading of right side will be crucial to heal his multiple stage 4 pressure ulcers, and prevent development of new pressure injuries. Transition to PO antibiotics upon discharge. Wound center to continue management of RLE wound dressings. Anemia: follow nutrition recommendations. Goal of 110 grams of protein a day to facilitate wound healing. Take a quality multi-vitamin that has iron, vitamin C, and zinc. Patient to f/u after discharge to recheck anemia status. Procedures Additional Procedures Additional Procedure Details: After verbal consent given by patient, time out performed, Excision debridement of muscle/fascia, eschar/slough, fat/subQ, epidermis/dermis performed back to healthy bleeding tissue, utilizing #5 curette, patient tolerated procedure well: Right posterior calf stage 4 pressure ulcer: measuring 9.3cmX3.4cmX0.4cm Right posterior calcaneus: 5.6cmX6.1cmX0.4cm. Right lateral calcaneus: 4.5cmX2.9cmX0.3cm All RLE wounds cleansed with 10min. Daikins 0.25% soak, taylor thick santyl applied, 2 sheets of hyfrofera brent classic cut to size to fit all wounds of RLE, periwound with betadine applied, 2 zetuvit superabsorber as secondary and lightly secured with kerlix wrap and paper tape. Prevalon boots secured and in place. Patient positioned left semi-lateral.
--- NOTE | 2022-05-19 16:37 | P.IMPN_ITS ---
Progress Note: A&P Assessment and plan (1) Pressure ulcer of ischium, stage 4: Status: Acute (2) Poor intravenous access: Problem details: History of PICC use in past. 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 diverting colostomy; self- catherization; recurrent and chronic osteomyelitis. Status: Acute (4) Stage IV pressure ulcer of sacral region: Problem details: Multiple debridements and flaps over the sacrum and bilateral ischial tuberosity. 05/17/2022 Excisional debridement of right ischial decubitus ulcer 13 x 9 cm. ertapenem 1 gram IV q 24. albumin, potassium and magnesium replaced. high protein/high caloric diet. Status: Acute (5) Dysautonomia: Problem details: Including thermal disregulation with cold intolerance Status: Acute (6) Pressure injury of right heel, stage 4: Problem details: stable. Status: Acute (7) History of methicillin resistant Staphylococcus aureus infection: Status: Acute (8) S/P colostomy: Status: Acute (9) Neurogenic bladder: Problem details: oxybutin BID; self cath Status: Acute (10) Chronic UTI: Problem details: was taking macrobid daily prior to hospitalization Status: Acute (11) Anemia, chronic disease: Status: Acute (12) History of cardiac pacemaker: Problem details: 2007 for bradycardia; not current issues Status: Acute Plan 1. Reviewed impression with patient. 2. Answers questions. 3. Working with patient, social media campaign manager, General surgery, [facility] staff, in an effort to transition his care to the outpatient setting. 4. Will likely need home care support, offloading bed, daily dressings for period of time until we can transition to wound VAC therapy, plus other ongoing supportive efforts. 5. Continue with current efforts for now. 6. Patient agreeable to above stated plans and recommendations. 7. Short-term passed from hospital so patient can try to see his father in law who is critically ill at this time. Time Spent With Patient Total time spent: 30 minutes Subjective Time Seen by Provider: 10:30 Date Seen: 05/19/22 Interval history: Hospital day for. 67-year-old man with paraplegia status post an accident number years ago. Has history of recurrent pressure ulcers of buttock region, status post multiple prior treatments and interventions. Doing well up until few days ago when noted drainage from the buttock area. Yesterday this was found to suddenly be much worse than what he originally realized. Now has has obvious stage IV presacral ulcer with necrosis. Receiving appropriate offloading interventions as well as empiric antibiotics and underwent excisional debridement in the OR yesterday of this wound. Wound cultures negative to date. PICC line placed yesterday due to poor IV access. Otherwise doing well. Eating and drinking. Pain not an issue. Working through family dynamics with his father in law currently in critical condition in an intensive care unit of another hospital. He asked us if there is any way he can visit his father in law before he passes. Exam Narrative: Exam Narrative: Appears comfortable, no acute distress. Alert, oriented to self, place, time, situation. Cooperative, friendly, articulate. Mood and affect are congruent. Lungs are clear to auscultation. Heart tones with regular rhythm. Abdomen is benign. I did not examine his wound today. Wound cultures growing out group B strep and yeast so far. Const: Vital Signs, click to edit/add: Vital Signs - 24 hr 05/18/22 20:00 05/19/22 02:38 05/19/22 03:00 Temperature 98.1 F 98.3 F 98.3 F Pulse Rate 80 80 Pulse Rate [Left A pical] 87 Respiratory Rate 18 18 18 Blood Pressure 112/63 107/66 Blood Pressure [Ri ght Arm] 107/62 Pulse Oximetry 98 95 96 Oxygen Delivery Me thod Room Air 05/19/22 00:00 05/19/22 00:00 05/19/22 03:45 Temperature 98.3 F 97.7 F Pulse Rate 87 Pulse Rate [Left A pical] 81 81 Respiratory Rate 18 18 18 Blood Pressure 124/69 Blood Pressure [Ri ght Arm] 127/74 Pulse Oximetry 97 97 Oxygen Delivery Me thod Room Air 05/19/22 04:00 05/19/22 04:45 05/19/22 06:35 Temperature 97.7 F 98.4 F 97.8 F Pulse Rate 84 79 Pulse Rate [Left A pical] 87 Respiratory Rate 18 18 18 Blood Pressure 149/82 H 149/82 H Blood Pressure [Ri ght Arm] 124/69 Pulse Oximetry 97 95 97 Oxygen Delivery Me thod Room Air 05/19/22 09:00 Temperature 98.4 F Pulse Rate Pulse Rate [Left A pical] 88 Respiratory Rate 16 Blood Pressure Blood Pressure [Ri ght Arm] 157/73 H Pulse Oximetry 96 Oxygen Delivery Me thod Room Air Documenting provider has reviewed patient's vital signs: yes Labs Labs: Laboratory Results - last 24 hr 05/18/22 05/19/22 05/19/22 06:27 06:08 06:08 WBC 6.72 RBC 3.40 L Hgb 9.8 L Hct 31.5 L MCV 93 MCH 29 MCHC 31 L Plt Count 476 H Sodium 136 Potassium 4.1 Chloride 103 Carbon Dioxide 30 BUN 14 Creatinine 0.6 Estimated Creat Clear 54.89 Estimated GFR 105 Glucose 98 Calcium 8.3 L C-Reactive Protein 6.5 H Procalcitonin 0.14 Blood Type A Positive Antibody Screen POSITIVE Antibody Identification Anti-Fya Crossmatch (AHG) See Detail
[2022-05-19] MEDS: ERTAPENEM 1 GM in 0.9 % SODIUM CHLORIDE Mini-bag 100 ML IVPB (17:02)
[2022-05-19] MEDS: SODIUM CHLORIDE 0.9 % (FLUSH) 10 ML SYRINGE 5 ML IVF (17:02)
--- NOTE | 2022-05-19 17:46 | PC.NURSE ---
PATIENT PLEASANT AND COOPERATIVE WITH STAFFING, WITHDRAWN TODAY, PATIENT EXPRESSED SADNESS R/T [id number] ACTIVELY PASSING, DRESSING TO SACRUM CHANGED PER MD ORDERS AND PATIENT TOLERATED WELL, PLAN IS FOR PATIENTS TO COME IN THIS EVENING TO DEMONSTRATE ABILITY TO DO DRESSING CHANGE FOR PATIENT AT HOME, WILLAM WOUND RN CHANGED RIGHT HEEL AND CALF DRESSINGS 05/19, PATIENT STRAIGHT CATH SELF PRN, COLOSTOMY CARES DONE BY PATIENT, DECLINED ANY STOOL THUS FAR TODAY, TOLERATING ENSURES, PATIENT HAS A DECREASED APPETITE, STATED HE ATE CHICKEN AND MASHED POTATOES WHILE OUT TODAY AND IS PLANNING ON BRINGING IN SUPPER, DECLINING PAIN, PATIENT IS HOPING TO DC HOME TOMORROW.
[2022-05-19] MEDS: SODIUM CHLORIDE 0.9 % (FLUSH) 10 ML SYRINGE IVF (21:54)
--- NOTE | 2022-05-19 22:06 | PC.NURSE ---
19-23: Pt t&r couple times tolerated well, resting this shift in bed, coccyx drsg was changed with present who stated she will attempt tomorrow as she wanted it demonstrated tonight. Area healing, serosanguinous drainage noted.
[2022-05-20] VITALS (8 sets, daily range): BP systolic 85–170; BP diastolic 60–91; PULSE 68–107; RESP 16–21; TEMP 36.6–36.7; O2SAT 93–98
--- NOTE | 2022-05-20 06:23 | PC.NURSE ---
[id number]: patient turn and repo in bed per request, no reports of pain, dressings to wounds c/d/i. bedding changed X1 during the night due to urine.
[2022-05-20 06:42] LABS: Hematocrit 31.8 % (37.0-53.0); Hemoglobin* 9.9 gm/dL (13.5-17.5); Mean Corpuscular HGB Conc 31 gm/dL (32-36); Mean Corpuscular Hemoglobin 29 pg (26-34); Mean Corpuscular Volume 92 fL (80-100); Platelet Count* 505 K/uL (140-440); Red Blood Count 3.47 m/uL (4.30-5.90); White Blood Count* 7.18 K/uL (4.50-11.00)
[2022-05-20 06:57] LABS: Slide Review Reflex No
[2022-05-20 07:11] LABS: Chloride* 101 mmol/L (96-114); Potassium* 3.9 mmol/L (3.6-5.1); Sodium* 136 mmol/L (135-149)
[2022-05-20 07:13] LABS: Creatinine* 0.5 mg/dL (0.5-1.5); Est. Creatinine Clearance* 54.89; Estimated Glomerular Filt Rate 111 ml/min
[2022-05-20 07:14] LABS: Blood Urea Nitrogen* 10 mg/dL (7-30); Carbon Dioxide* 29 mmol/L (20-32); Glucose* 81 mg/dL (60-115)
[2022-05-20 07:15] LABS: Calcium* 8.4 mg/dL (8.4-10.6)
[2022-05-20 07:17] LABS: C Reactive Protein* 6.6 mg/dL (0.5-1.0)
[2022-05-20 07:31] LABS: Procalcitonin* 0.14 ng/mL (<0.50)
--- NOTE | 2022-05-20 08:51 | PM.GSPN ---
Subjective Subjective Date Seen: 05/20/22 Interval history: Patient is doing well. His pain is controlled with pain medications. He is taking pain medication about 2 times per day. His dressing was changed twice yesterday. His is going to change his dressings at home. Exam Narrative: Exam Narrative: Right ischial decubitus ulcer dressing was changed today with wet to dries. The wound bed has good beefy granulation tissue. There are no other necrotic areas. Moist gauze was placed into the wound and it was Covered by 2 Mepilex. Const: Vital Signs, click to edit/add: Vital Signs - 24 hr 05/19/22 09:00 05/19/22 16:50 05/19/22 20:00 Temperature 98.4 F 98.1 F 98 F Pulse Rate [Left A pical] 88 96 92 Respiratory Rate 16 16 16 Blood Pressure [Ri ght Arm] 157/73 H 113/68 176/78 H Pulse Oximetry 96 93 93 Oxygen Delivery Me thod Room Air Room Air Room Air 05/20/22 00:00 05/19/22 23:00 05/20/22 03:13 Temperature 98.1 F 98.1 F Pulse Rate [Left A pical] 92 92 88 Respiratory Rate 16 16 16 Blood Pressure [Ri ght Arm] 170/91 H 160/90 H Pulse Oximetry 93 97 Oxygen Delivery Me thod Room Air Room Air Progress Note: A&P Assessment and plan (1) Pressure ulcer of ischium, stage 4: Status: Acute Assessment and Plan: 67-year-old male admitted with right ischial is decubitus ulcer s/p debridement in the operating room. I think patient is safe to discharge home on p.o. antibiotics. Patient's sacral decubitus ulcer dressing should be wet to dries with 2 Mepilex. It would be best for the patient's to do the dressing changes when patient is lying prone to have full access to his wound And areas of undermining.
[2022-05-20] MEDS: POTASSIUM CHLORIDE 10 MEQ CAPSULE ER 20 MEQ PO (09:36)
[2022-05-20] MEDS: SODIUM CHLORIDE 0.9 % (FLUSH) 10 ML SYRINGE IVF ×2 (09:37→20:42)
--- NOTE | 2022-05-20 16:30 | CRLHL7_ITS ---
For Patients: As a result of the Century Cures Act, medical imaging exams and procedure reports are released immediately into your electronic medical record. You may view this report before your referring provider. If you have questions, please contact your health care provider. INDICATION: PICC line placement. COMPARISON: None. TECHNIQUE: Single view chest radiograph. FINDINGS: Left chest wall generator with dual leads in place. Right arm PICC with tip terminating likely in the central SVC. Cardiomediastinal contours are within normal limits. No consolidative pulmonary opacities. Bibasilar linear opacities likely scarring or atelectasis. There may be a right lower lobe pulmonary nodule. Lungs appear hyperexpanded. No significant pneumothorax. IMPRESSION: Right arm PICC tip terminates likely within the central SVC. Possible right lower lobe pulmonary nodule. Recommend comparison to outside priors if available. If no outside priors are available, recommend nonurgent chest CT. Dictated by Krishna Marques MD @ 05/20/2022 6:45:31 PM (Electronically Signed)
--- NOTE | 2022-05-20 16:30 | CRLHL7_ITS ---
For Patients: As a result of the Century Cures Act, medical imaging exams and procedure reports are released immediately into your electronic medical record. You may view this report before your referring provider. If you have questions, please contact your health care provider. Indication: PICC placement Technique: Grayscale images of the right internal jugular vein and right brachial vein. IMPRESSION: Sonographic guided placement of right arm PICC line. Dictated by Alex Hong MD @ 05/23/2022 9:02:33 AM (Electronically Signed)
--- NOTE | 2022-05-20 16:36 | PC.SOCIAL ---
Discharge planning- Received face to face home health care orders from [facility] staff. [facility] faxed face to face home health care orders to [facility]. Received order for hospital bed from [facility] and an updated progress note. Scanned and emailed to [employer] compensation claims worker Eugenie Payton. Eugenie's email is [email or web address] and her direct phone number is [phone]. Eugenie completed the request for the hospital bed to be delivered to the home this afternoon by [facility] in [place]. Phone call to [facility]. Spoke to delivery sales worker, Rupa, at [phone]. Rupa confirmed that workers compensation would pay for home health care services. Home health care services will begin next Monday. Home health care is able to meet the 2 times a week every Monday and Monday request. Met with Pt and Pt's in pt's room. Pt's is able to get transportation to get pt home. Discharge is delayed due to pt having an infection and needing a PICC line for IV antibiotics. Provided an update on home care with [facility] and [facility] bringing the hospital bed and matress. Faxed order for Home infusion services for daily IV antibiotics to Eugenie Payton at [place]. Provided local infusion resources to Eugenie. Phone call to Eugenie Payton. Eugenie states she will start working on getting home infusion services set up. Provided Eugenie with Med/Surg phone number for the weekend and social work department phone number for Monday as this worker will not be here Monday. Informed Eugenie that pt's discharge is now delayed until the infusions services is set up.
[2022-05-20] MEDS: ERTAPENEM 1 GM in 0.9 % SODIUM CHLORIDE Mini-bag 100 ML IVPB (16:46)
[2022-05-20] MEDS: 0.9 % SODIUM CHLORIDE 250 ml IV (16:46)
--- NOTE | 2022-05-20 17:29 | PM.IMPN1 ---
Progress Note: A&P Assessment and plan (1) Pressure ulcer of ischium, stage 4: Problem details: Group B strep growing from wound culture and bone culture. Bone biopsy consistent with acute and chronic osteomyelitis. Status: Acute Assessment and Plan: 1. Currently on ertapenem IV. I will stop this. 2. Start ceftriaxone 2 g IV Q 24 hours. Patient reportedly has a history of gastrointestinal intolerance to penicillins and cephalosporins orally. No allergies to penicillins or cephalosporins in the past. 3. Will need the ceftriaxone IV therapy for 6 weeks. Will need to arrange for home IV infusion support. 4. Will need appropriate bed to offload none only this wound but also the heel wounds. Intervention Teacher in the process of making arrangements for this to be brought into the home if possible. 5. For the time being these dressing changes need to be done daily. Intervention Teacher making arrangements for patient to have wound care management once weekly with twice weekly home care support. All other days of the week the would be able to provide this level of wound care. (2) Anemia, chronic disease: Status: Acute Assessment and Plan: Stable. (3) Quadriplegia, C5-C7 incomplete: Problem details: 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 diverting colostomy; self-catherization; recurrent and chronic osteomyelitis. Status: Acute Assessment and Plan: Chronic, longstanding. (4) Pressure injury of right heel, stage 4: Problem details: stable. Status: Acute (5) Pressure ulcer of right leg, stage 4: Status: Acute Plan 1. Patient had been hoping to be discharged today. With the bone microbiology and pathology findings we need to wait for discharge until such time as we have everything lined up including home IV infusion of support. Patient and agreeable. Time Spent With Patient Total time spent: 60 minutes Subjective Time Seen by Provider: 10:00 Date Seen: 05/20/22 Interval history: Hospital day 5. 67-year-old man with quadriplegia status post work related accident number years ago. Has history of recurrent pressure ulcers of buttock region, status post multiple prior treatments and interventions. Doing well up until few days ago when noted drainage from the buttock area. Day prior to admission found to suddenly be much worse than what he originally realized. Now has has stage IV presacral ulcer with necrosis. Receiving appropriate offloading interventions as well as empiric antibiotics and underwent excisional debridement in the OR. Otherwise doing well. Eating and drinking. Pain not an issue. Working through family dynamics with his father in law currently in critical condition in an intensive care unit of another hospital. Exam Narrative: Exam Narrative: Appears comfortable. He is anxious to go home today if at all possible. Alert, oriented to self, place, time, situation. Cooperative, friendly. Mood and affect are congruent. Lungs are clear to auscultation. Heart tones with regular rhythm. Abdomen is thin with active bowel sounds. I do not examine any of his wounds today. Wound culture grew out group B strep, streptococcus achalatiae. Organism sensitive to ampicillin, levofloxacin, linezolid, tigecycline, and vancomycin. Organism resistant to tetracycline. Bone culture also grew out group B strep with same sensitivity as the wound culture. Additionally there is mention of a presumptive group G strep that is still being worked up in the microbiology lab. Biopsy of the ischium demonstrates necrosis, acute osteomyelitis, and chronic osteomyelitis. No malignancy noted. Const: Vital Signs, click to edit/add: Vital Signs - 24 hr 05/19/22 20:00 05/20/22 00:00 05/19/22 23:00 Temperature 98 F 98.1 F Pulse Rate [Left A pical] 92 92 92 Respiratory Rate 16 16 16 Blood Pressure [Ri ght Arm] 176/78 H 170/91 H Pulse Oximetry 93 93 Oxygen Delivery Me thod Room Air Room Air 05/20/22 03:13 05/20/22 07:00 05/20/22 08:00 Temperature 98.1 F Pulse Rate [Left A pical] 88 107 H 107 H Respiratory Rate 16 18 18 Blood Pressure [Ri ght Arm] 160/90 H 115/77 Pulse Oximetry 97 97 Oxygen Delivery Me thod Room Air Room Air 05/20/22 12:00 Temperature 97.8 F Pulse Rate [Left A pical] 68 Respiratory Rate 21 Blood Pressure [Ri ght Arm] 167/72 H Pulse Oximetry 98 Oxygen Delivery Me thod Room Air Documenting provider has reviewed patient's vital signs: yes Labs Labs: Laboratory Results - last 24 hr 05/18/22 05/20/22 05/20/22 06:27 06:05 06:05 WBC 7.18 RBC 3.47 L Hgb 9.9 L Hct 31.8 L MCV 92 MCH 29 MCHC 31 L Plt Count 505 H Sodium 136 Potassium 3.9 Chloride 101 Carbon Dioxide 29 BUN 10 Creatinine 0.5 Estimated Creat Clear 54.89 Estimated GFR 111 Glucose 81 Calcium 8.4 C-Reactive Protein 6.6 H Procalcitonin 0.14 Antibody Identification Anti-Fya
--- NOTE | 2022-05-20 19:53 | PC.NURSE ---
Nursing Care Hours: [id number] pt this shift calm and cooperative with cares. No c/o pain. Dressings to sacrum, R leg, bilat heels, and L lateral abdomen CDI. Observed open sore with protruding pink granuloma tissue on posterior L upper hip. School Physical Therapist notified surgeon who did dressing change in the morning. Mepilex square applied. Breathing shallow and LS diminished. Pt received notice of bone infection which changed discharge planning. Pt frustrated but understanding and glad that it was found while he was here. Spouse at bedside most of the day. PICC line placed using imaging, tolerated well.
[2022-05-20] MEDS: cefTRIAXone 2 GM in 0.9 % SODIUM CHLORIDE Mini-bag 100 ML IVPB (20:42)
--- NOTE | 2022-05-20 20:48 | P.IMPN_ITS ---
Progress Note: A&P Assessment and plan (1) Pressure ulcer of ischium, stage 4: Problem details: Group B strep growing from wound culture and bone culture. Bone biopsy consistent with acute and chronic osteomyelitis. 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 diverting colostomy; self- catherization; recurrent and chronic osteomyelitis. Status: Acute (5) Pressure injury of right heel, stage 4: Problem details: stable. Status: Acute (6) Pressure ulcer of right leg, stage 4: Status: Acute Plan Continue hospitalization pending outpatient plan coordination for IV antibiotics and daily dressing changes and hospital bed. Time Spent With Patient Total time spent: Total time spent today is 40 minutes, 30 minutes in coordination of care and discussing with patient and other providers ongoing management of decubitus ulcers and osteomyelitis Subjective Date Seen: 05/21/22 Interval history: 67-year-old male seen in followup of hospitalization for sacral ulcers now diagnosed with osteomyelitis. Patient has history of partial quadriplegia with previous injury to the lower cervical spine. He maintains some upper extremity functioning. He has had recurrent problems with lower extremity ulcerations. Bone biopsy from recent debridement showed osteomyelitis and bone culture at that time showed group B strep. He has been started on ceftriaxone for treatment of this. This is planned for ongoing outpatient IV antibiotics. PICC line has been placed. He has no other concerns today. He opens to go home with his . He he has a hospital bed getting arranged and now home IV services will also be arranged. is apparently going to do dressing changes which currently are wet to dry. Exam Narrative: Exam Narrative: He is alert, pleasant and appears in no distress. He gives his own history. Respirations are clear to auscultation. Cardiovascular S1, S2, regular rate and rhythm. No murmur gallop or rub. Abdomen: Bowel sounds active. Abdomen is soft he has no tenderness or mass. Sacral ulcers are not examined at this time. Const: Vital Signs, click to edit/add: Vital Signs - 24 hr 05/20/22 00:00 05/19/22 23:00 05/20/22 03:13 Temperature 98.1 F 98.1 F Pulse Rate [Left A pical] 92 92 88 Respiratory Rate 16 16 16 Blood Pressure [Ri ght Arm] 170/91 H 160/90 H Pulse Oximetry 93 97 Oxygen Delivery Me thod Room Air Room Air 05/20/22 07:00 05/20/22 08:00 05/20/22 12:00 Temperature 97.8 F Pulse Rate [Left A pical] 107 H 107 H 68 Respiratory Rate 18 18 21 Blood Pressure [Ri ght Arm] 115/77 167/72 H Pulse Oximetry 97 98 Oxygen Delivery Me thod Room Air Room Air 05/20/22 15:00 05/20/22 16:00 05/20/22 20:00 Temperature 97.9 F Pulse Rate [Left A pical] 105 H 105 H 98 Respiratory Rate 21 20 Blood Pressure [Ri ght Arm] 85/68 L 95/60 Pulse Oximetry 98 97 Oxygen Delivery Me thod Room Air Room Air Documenting provider has reviewed patient's vital signs: yes Labs Labs: Laboratory Results - last 24 hr 05/18/22 05/20/22 05/20/22 06:27 06:05 06:05 WBC 7.18 RBC 3.47 L Hgb 9.9 L Hct 31.8 L MCV 92 MCH 29 MCHC 31 L Plt Count 505 H Sodium 136 Potassium 3.9 Chloride 101 Carbon Dioxide 29 BUN 10 Creatinine 0.5 Estimated Creat Clear 54.89 Estimated GFR 111 Glucose 81 Calcium 8.4 C-Reactive Protein 6.6 H Procalcitonin 0.14 Antibody Identification Anti-Fya
[2022-05-21] VITALS: BP 128/70; PULSE 83; RESP 18; TEMP 36.4; O2SAT 97
[2022-05-21 04:00] VITALS: BP 147/79; PULSE 75; RESP 20; TEMP 36.7; O2SAT 97
[2022-05-21 07:16] LABS: Hematocrit 34.7 % (37.0-53.0); Hemoglobin* 10.8 gm/dL (13.5-17.5); Mean Corpuscular HGB Conc 31 gm/dL (32-36); Mean Corpuscular Hemoglobin 29 pg (26-34); Mean Corpuscular Volume 92 fL (80-100); Platelet Count* 456 K/uL (140-440); Red Blood Count 3.77 m/uL (4.30-5.90); White Blood Count* 6.68 K/uL (4.50-11.00)
[2022-05-21 07:19] LABS: Slide Review Reflex No
[2022-05-21 07:25] LABS: Chloride* 104 mmol/L (96-114); Sodium* 139 mmol/L (135-149)
--- NOTE | 2022-05-21 07:26 | PC.NURSE ---
[id number]: Patient w/flat affect. Declined pain medications despite being offered and encouraged multiple times. T&R q3h during noc per patient request. Patient refused 1 T&R and requested to wait 1 more hour. [employer] Work Supervisor educated patient on importance of T&R to promote wound healing. Patient unsuccessful with self-catheterization. [employer] Work Supervisor offered help x2 but patient refused. Patient using a bath towel to collect urine. Mepilex to L. heal, L. chest C/D/I. Dressing to R. Mclean and R. heel covered with Kerlix C/D/I. Mepilex to sacral area changed x1 d/t serosanguineous drainage. Afebrile.
[2022-05-21 07:28] LABS: Carbon Dioxide* 28 mmol/L (20-32); Creatinine* 0.6 mg/dL (0.5-1.5); Est. Creatinine Clearance* 54.89; Estimated Glomerular Filt Rate 105 ml/min
[2022-05-21 07:29] LABS: Blood Urea Nitrogen* 15 mg/dL (7-30); Calcium* 8.5 mg/dL (8.4-10.6); Glucose* 102 mg/dL (60-115)
[2022-05-21 07:31] LABS: C Reactive Protein* 6.5 mg/dL (0.5-1.0)
[2022-05-21 07:42] LABS: Procalcitonin* 0.11 ng/mL (<0.50)
[2022-05-21 08:00] VITALS: BP 124/69; PULSE 88; RESP 18; TEMP 37.1; O2SAT 97
[2022-05-21] MEDS: POTASSIUM CHLORIDE 10 MEQ CAPSULE ER 20 MEQ PO (10:00)
[2022-05-21] MEDS: SODIUM CHLORIDE 0.9 % (FLUSH) 10 ML SYRINGE IVF ×2 (10:05→22:10)
--- NOTE | 2022-05-21 10:28 | PM.GSPN ---
Subjective Subjective Date Seen: 05/21/22 Interval history: Patient is stable, no pain. Dressings were not changed yet. Exam Narrative: Exam Narrative: Right sacral wound with wet to dry dressing in place. There is no necrotic tissue at the wound base. There is no surrounding cellulitis. Const: Vital Signs, click to edit/add: Vital Signs - 24 hr 05/20/22 12:00 05/20/22 15:00 05/20/22 16:00 Temperature 97.8 F Pulse Rate [Left A pical] 68 105 H 105 H Respiratory Rate 21 21 Blood Pressure [Ri ght Arm] 167/72 H 85/68 L Pulse Oximetry 98 98 Oxygen Delivery Me thod Room Air Room Air 05/20/22 20:00 05/21/22 00:00 05/21/22 04:00 Temperature 97.9 F 97.5 F L 98.1 F Pulse Rate [Left A pical] 98 83 75 Respiratory Rate 20 18 20 Blood Pressure [Ri ght Arm] 95/60 128/70 147/79 H Pulse Oximetry 97 97 97 Oxygen Delivery Me thod Room Air Room Air Room Air Progress Note: A&P Assessment and plan (1) Stage IV pressure ulcer of sacral region: Status: Acute Assessment and Plan: 67-year-old male with right sacral/ischial decubitus ulcer s/p debridement. We will continue wet-to-dry dressing changes. I discussed with the nurse to change his dressing today. Patient also has a right lower leg wound that needs dressing change today with Hydrofera Blue and Zeduvit. Patient is on IV antibiotics for his osteomyelitis. We waiting for arrangements to be made for the correct but to be delivered to his home and arrangements for IV antibiotics at home.
[2022-05-21 17:30] VITALS: BP 97/57; PULSE 79; RESP 18; TEMP 37.1; O2SAT 97
[2022-05-21] MEDS: cefTRIAXone 2 GM in 0.9 % SODIUM CHLORIDE Mini-bag 100 ML IVPB (18:26)
[2022-05-21] MEDS: 0.9 % SODIUM CHLORIDE 250 ml IV (18:26)
[2022-05-21 19:51] VITALS: BP 148/80; PULSE 70; RESP 18; TEMP 36.7; O2SAT 97
[2022-05-21 22:15] VITALS: BP 134/71; PULSE 89; RESP 20; TEMP 36.9; O2SAT 96
[2022-05-22] VITALS (7 sets, daily range): BP systolic 82–152; BP diastolic 47–78; PULSE 73–100; RESP 16–18; TEMP 36.6–36.9; O2SAT 96–98
[2022-05-22 06:51] LABS: Hematocrit 38.8 % (37.0-53.0); Hemoglobin* 11.9 gm/dL (13.5-17.5); Mean Corpuscular HGB Conc 31 gm/dL (32-36); Mean Corpuscular Hemoglobin 28 pg (26-34); Mean Corpuscular Volume 92 fL (80-100); Platelet Count* 371 K/uL (140-440); Slide Review Reflex No; White Blood Count* 4.88 K/uL (4.50-11.00)
--- NOTE | 2022-05-22 06:53 | PC.NURSE ---
[id number]: Patient pleasant and cooperative with cares. [place] brought supper. Patient more conversational and agreeable to cares this shift compared to last shift. Patient successful in self-catheterization and remained dry during noc. T&R Q3-4 hours per patient request. Declined pain medications.
[2022-05-22 07:19] LABS: Chloride* 106 mmol/L (96-114); Sodium* 138 mmol/L (135-149)
[2022-05-22 07:22] LABS: Creatinine* 0.5 mg/dL (0.5-1.5); Est. Creatinine Clearance* 54.89; Estimated Glomerular Filt Rate 111 ml/min
[2022-05-22 07:23] LABS: Blood Urea Nitrogen* 15 mg/dL (7-30); Calcium* 8.6 mg/dL (8.4-10.6); Carbon Dioxide* 30 mmol/L (20-32); Glucose* 102 mg/dL (60-115)
[2022-05-22 07:26] LABS: C Reactive Protein* 4.7 mg/dL (0.5-1.0)
[2022-05-22 07:34] LABS: Procalcitonin* 0.09 ng/mL (<0.50)
[2022-05-22] MEDS: POTASSIUM CHLORIDE 10 MEQ CAPSULE ER 20 MEQ PO (09:42)
[2022-05-22] MEDS: SODIUM CHLORIDE 0.9 % (FLUSH) 10 ML SYRINGE IVF ×2 (09:43→22:06)
[2022-05-22] MEDS: HYDROmorphone 0.5 mg/0.5 ml inj IVP (10:30)
--- NOTE | 2022-05-22 10:48 | PM.GSPN ---
Subjective Subjective Date Seen: 05/22/22 Interval history: Patient is doing well. No concerns. Exam Narrative: Exam Narrative: The right ischial dressing was changed today. The inferior Mepilex was saturated with dressing. The wound bed looks beefy red with only a tiny area of slough inferior to the ischial bone. The wet to dry dressing was placed into the wound bed and it was covered by Mepilex. Const: Vital Signs, click to edit/add: Vital Signs - 24 hr 05/21/22 19:51 05/21/22 17:30 05/21/22 22:15 Temperature 98.0 F 98.8 F 98.4 F Pulse Rate [Left A pical] 70 79 89 Respiratory Rate 18 18 20 Blood Pressure [Ri ght Arm] 148/80 H 97/57 L 134/71 Pulse Oximetry 97 97 96 Oxygen Delivery Me thod Room Air Room Air Room Air 05/22/22 02:26 Temperature 98.2 F Pulse Rate [Left A pical] 98 Respiratory Rate 18 Blood Pressure [Ri ght Arm] 130/78 Pulse Oximetry 96 Oxygen Delivery Me thod Room Air Progress Note: A&P Assessment and plan (1) Pressure ulcer of ischium, stage 4: Problem details: Group B strep growing from wound culture and bone culture. Bone biopsy consistent with acute and chronic osteomyelitis. Long-term outpatient ceftriaxone Status: Acute Assessment and Plan: 67-year-old male admitted to the hospital with right ischial decubitus ulcer s/p debridement. I will continue wet-to-dry dressing changes daily. I asked the nurses to change his Mepilex twice a day to absorb the drainage. Patient is waiting for arrangements for his bed at home and arrangements for IV antibiotics due to osteomyelitis.
--- NOTE | 2022-05-22 13:18 | P.IMPN_ITS ---
Progress Note: A&P Assessment and plan (1) Pressure ulcer of ischium, stage 4: Problem details: Group B strep growing from wound culture and bone culture. Bone biopsy consistent with acute and chronic osteomyelitis. 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 diverting colostomy; self- catherization; recurrent and chronic osteomyelitis. Status: Acute Plan Continue wound care as outlined by surgery. Continue ceftriaxone outpatient long-term. Possible discharge to home tomorrow if arrangements can be made for necessary we wound care and outpatient antibiotics Time Spent With Patient Total time spent: Total time spent today is 30 minutes, 25 minutes in coordination of care and discussing with patient other providers ongoing evaluation management Subjective Date Seen: 05/22/22 Interval history: 67-year-old male seen in followup of buttock ulcer with osteomyelitis. Patient reports generally feeling a little bit better. He has no specific concerns today. Exam Narrative: Exam Narrative: Patient is seen with Dr. Fleming. She provides wound care. Large ulceration over his sacral buttock area noted. Wound is clean and pink with moderate amount of drainage on the dressings. Exposed bone noted Const: Vital Signs, click to edit/add: Vital Signs - 24 hr 05/21/22 19:51 05/21/22 17:30 05/21/22 22:15 Temperature 98.0 F 98.8 F 98.4 F Pulse Rate [Left A pical] 70 79 89 Respiratory Rate 18 18 20 Blood Pressure [Ri ght Arm] 148/80 H 97/57 L 134/71 Pulse Oximetry 97 97 96 Oxygen Delivery Me thod Room Air Room Air Room Air 05/22/22 02:26 05/22/22 07:00 Temperature 98.2 F Pulse Rate [Left A pical] 98 96 Respiratory Rate 18 18 Blood Pressure [Ri ght Arm] 130/78 Pulse Oximetry 96 Oxygen Delivery Me thod Room Air Documenting provider has reviewed patient's vital signs: yes Labs Labs: Laboratory Results - last 24 hr 05/22/22 05/22/22 06:36 06:36 WBC 4.88 RBC 4.20 L Hgb 11.9 L Hct 38.8 MCV 92 MCH 28 MCHC 31 L Plt Count 371 Sodium 138 Potassium 4.0 Chloride 106 Carbon Dioxide 30 BUN 15 Creatinine 0.5 Estimated Creat Clear 54.89 Estimated GFR 111 Glucose 102 Calcium 8.6 C-Reactive Protein 4.7 H Procalcitonin 0.09
--- NOTE | 2022-05-22 14:48 | PC.NURSE ---
shift note [id number]. Pt. alert and orientedx4. pleasant and cooperative. Mepilex to L. heal, L. chest C/D/I.? Dressing to R. Mclean and R. heel covered with Kerlix C/D/I.? Mepilex to sacral area changed and repacked by MD Levy w/nurse assisting x1, serosanguineous drainage. MD Levy would like Mepilex changed 2x per shift d/t the amount of drainage and skin staying wet. Pt. Afebrile. Pt. refuses to take any unnecessary medications or pain meds. Pt. encouraged to use pain med prior to repacking of sacral wound and he was agreeable to half the amount. PRN Dilauded 0.3mg administered and tolerated well.
[2022-05-22] MEDS: cefTRIAXone 2 GM in 0.9 % SODIUM CHLORIDE Mini-bag 100 ML IVPB (18:14)
[2022-05-22] MEDS: 0.9 % SODIUM CHLORIDE 250 ml IV (18:24)
--- NOTE | 2022-05-22 23:53 | PC.NURSE ---
Shift [id number]- Patient denies pain throughout shift. He is offered to reposition 3 times every hour at beginning of shift, however states each time that he had just repositioned very recently. The second offer of reposition his also agrees that he had been repositioned recently. He refuses Q2H turn and repositioning, though makes plan with RN about repositioning and other nursing cares to cluster at particular times. He is able to use his upper body to help with positioning. Mepilex are changed this evening. His right leg is wrapped in kerlix and both extremities have boots.
[2022-05-23 03:00] VITALS: BP 115/68; PULSE 87; RESP 18; TEMP 36.7; O2SAT 97
[2022-05-23 06:49] LABS: Hematocrit 31.1 % (37.0-53.0); Hemoglobin* 9.5 gm/dL (13.5-17.5); Mean Corpuscular HGB Conc 31 gm/dL (32-36); Mean Corpuscular Hemoglobin 29 pg (26-34); Mean Corpuscular Volume 94 fL (80-100); Platelet Count* 437 K/uL (140-440); Red Blood Count 3.31 m/uL (4.30-5.90); White Blood Count* 6.01 K/uL (4.50-11.00)
[2022-05-23 06:52] LABS: Slide Review Reflex No
[2022-05-23 07:00] VITALS: BP 135/75; PULSE 88; RESP 18; TEMP 36.7; O2SAT 93
[2022-05-23 07:04] LABS: Chloride* 107 mmol/L (96-114)
[2022-05-23 07:05] LABS: Potassium* 4.2 mmol/L (3.6-5.1); Sodium* 139 mmol/L (135-149)
[2022-05-23 07:07] LABS: Creatinine* 0.5 mg/dL (0.5-1.5); Est. Creatinine Clearance* 54.89; Estimated Glomerular Filt Rate 111 ml/min
[2022-05-23 07:08] LABS: Blood Urea Nitrogen* 19 mg/dL (7-30); Carbon Dioxide* 25 mmol/L (20-32); Glucose* 95 mg/dL (60-115)
[2022-05-23 07:09] LABS: Calcium* 8.4 mg/dL (8.4-10.6)
[2022-05-23 07:11] LABS: C Reactive Protein* 3.5 mg/dL (0.5-1.0)
[2022-05-23 07:25] LABS: Procalcitonin* 0.08 ng/mL (<0.50)
--- NOTE | 2022-05-23 07:43 | PC.NURSE ---
Pt is pleasant, request to sleep and does not want to be bothered with position changes Q2H. Agreed to Q3-4H minimal repositioning. Jovany pain but slight wince when fha underwriter is helping with position changes. Self care for bowel and bladder; self cath and empting of ostomy bag.
[2022-05-23] MEDS: POTASSIUM CHLORIDE 10 MEQ CAPSULE ER 20 MEQ PO (09:05)
[2022-05-23] MEDS: SODIUM CHLORIDE 0.9 % (FLUSH) 10 ML SYRINGE IVF (09:05)
[2022-05-23 11:00] VITALS: BP 150/76; PULSE 84; RESP 18; TEMP 36.7; O2SAT 92
--- NOTE | 2022-05-23 12:13 | PM.DS1 ---
DS: Providers Provider Date Seen: 05/23/22 Date of admission: 05/17/22 08:48 Primary care physician: Alex Mata MD Admitting Clinician: Dana Bull MD Date of Discharge: 05/23/22 DS: Diagnosis Discharge Diagnosis (1) Pressure ulcer of ischium, stage 4: Status: Acute Problem details: Group B strep growing from wound culture and bone culture. Bone biopsy consistent with acute and chronic osteomyelitis. 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 diverting colostomy; self-catherization; recurrent and chronic osteomyelitis. DS: Summary Hospital Course Hospital Course: 67-year-old male admitted to the hospital with worsening sacral ulcer. Patient has partial quadriplegia C4-C7 with recurrent problems with decubitus ulcers. Recently has had worsening was also and was admitted for debridement. On debridement he had bone biopsy and bone culture. Bone biopsy showed acute on chronic osteomyelitis and bone culture showed group B strep. Was started on ceftriaxone 2 g IV daily with a planned 6 week course of treatment. He had debridement of his ulcer by Dr. Fleming. Plan for wound care was also developed. Patient is anxious to go home and the decision is made that he would get dressing changes by his and home IV antibiotics. Continue with visits to the Wound Care Clinic at [facility] as well. Status at Discharge Functional status at discharge: wheelchair bound Overall status at discharge: patient is progressing back to baseline Time Spent with Patient Time attestation: Total time spent providing and/or coordinating discharge services: Time spent: Greater than 30 minutes Exam Narrative: Exam Narrative: He is alert in no distress. Breathing is unlabored. No wound examination done today. Nursing reports stability to his wounds. Const: Vital Signs, click to edit/add: Vital Signs - 24 hr 05/22/22 16:00 05/22/22 19:45 05/22/22 22:11 Temperature 98 F 98.4 F 98.0 F Pulse Rate [Left A pical] 73 73 99 Respiratory Rate 16 16 18 Blood Pressure [Ri ght Arm] 137/59 L 152/69 H 115/67 Pulse Oximetry 97 98 97 Oxygen Delivery Me thod Room Air Room Air 05/23/22 03:00 05/23/22 07:00 05/23/22 07:00 Temperature 98.1 F 98.1 F Pulse Rate [Left A pical] 87 88 88 Respiratory Rate 18 18 18 Blood Pressure [Ri ght Arm] 115/68 135/75 Pulse Oximetry 97 93 Oxygen Delivery Me thod Room Air Room Air Documenting provider has reviewed patient's vital signs: yes DS: Data Data Completed and Pending Labs on day of discharge: Labs from last 24 hours 05/23/22 05/23/22 06:35 06:35 WBC 6.01 RBC 3.31 L Hgb 9.5 L Hct 31.1 L MCV 94 MCH 29 MCHC 31 L Plt Count 437 Sodium 139 Potassium 4.2 Chloride 107 Carbon Dioxide 25 BUN 19 Creatinine 0.5 Estimated Creat Clear 54.89 Estimated GFR 111 Glucose 95 Calcium 8.4 C-Reactive Protein 3.5 H Procalcitonin 0.08 Discharge Plan Discharge Disposition: Home, Self-Care Date of Admission: 05/17/22 08:48 Attending Provider on Discharge: Mert Burgos Primary Care Provider: Alex Mata Condition: Improved Anticipated Discharge Date/Time: 05/23/22 14:00 Discharge Medications: New ceftriaxone 2 gram Recon Soln 2 g IVPB Q24H 42 Days Qty: 42 0RF Rx Instructions: Prescription through home infusion services Continued oxybutynin chloride 15 mg tablet extended release 24hr 15 mg PO BID Changed diclofenac sodium 75 mg tablet,delayed release (DR/EC) 75 mg PO BID PRN (Reason: Pain, Moderate) Qty: 60 2RF Discontinued nitrofurantoin macrocrystal 50 mg capsule 50 mg PO DAILY Discharge Orders: Discharge Order (Routine); Ordered 05/23/22 Ordered By: Mert Burgos Patient Education: Ceftriaxone (By injection), Chronic Wounds (DC), Acute Wounds (DC) Additional Instructions: right ischial decubitus ulcer dressings with Kerlix roll moistened with normal saline. The dressing should not be dripping wet. Packed the dressing only into the open wound. Cover the dressing with 2 sacral Mepilex. The 2 small open areas on the scrotum could be covered with small Mepilex. Go to Wound Care Clinic for ongoing management of wound care Outpatient ceftriaxone 2 g daily for 6 weeks pending follow-up in Wound Care Clinic. Activity Level: Other Activity Detail: Reposition in bed and chair to keep pressure off ulcer. Discharge Diet: Regular Follow Up Appointments: Alex Mata MD [Primary Care Provider] - (Follow-up as needed.) Yamile Conway CNP [Nurse Practitioner] - 05/30/22 1:00 pm (Wound Care Clinic) Forms: Open Me Info Instructions
--- NOTE | 2022-05-23 12:29 | PC.SOCIAL ---
Discharge plan: Called Eugenie at [facility], who confirmed she is working on arranging home IV antibiotics for pt through [facility] and is awaiting confirmation they are able to open pt to services tomorrow. Eugenie will let social studies department chair know when this is confirmed. Met with pt who is agreement with this plan. He is wager to be discharged home as soon as arrangements are made for the IV antibiotic care. channel worker to follow up as needed.
[2022-05-23] MEDS: cefTRIAXone 2 GM in 0.9 % SODIUM CHLORIDE Mini-bag 100 ML IVPB (14:32)
--- NOTE | 2022-05-23 15:46 | PC.SOCIAL ---
Discharge plan: Met with pt who is eager to be discharged home today. Spoke with pt's workman's comp vocational case manager, Eugenie, regarding what she has arranged. Faxed requested updated information on wound care orders, home care orders and PICC line. Received call from Eugenie at [facility], stating pt can be discharged home with [facility] providing home IV antibiotics starting tomorrow at 3:00. [facility] home care will be providing the home care for wound care. Hospital bed and special mattress have already been delivered to pt's home. Eugenie is sending pt an email with all the information on the arranged services and contact information.
[2022-05-23 16:00] VITALS: BP 147/79; PULSE 84; PULSE 87; RESP 18; TEMP 36.9; O2SAT 94
[2022-05-23 16:05] VITALS: BP 149/82; PULSE 79; RESP 18; TEMP 36.7
--- NOTE | 2022-05-23 16:10 | PC.NURSE ---
PICC to YISEL patent. PIV to left FA removed. Wound care done today per orders. Plan for pt to d/c home with home health/infusion company for dressing changes, daily IV abx, PICC dressing changes. IV ABX given at 1400 today. Pt will continue to see wound care at center 1x/wk. Plan for pt to get wound vac placed once this arrives. Report given to NILSA brown.
== END 2022-05-23 17:29 | disposition home health service (06) | DRG 264 ==
PROVIDERS: Surgery; Admitting Provider Family Medicine; PCP Family Medicine; Visit Provider Internal Medicine
PROC: 0QB20ZZ Excision of Right Pelvic Bone, Open Approach (ICD-10-PCS; principal; 2022-05-17 14:15)
DX: I96 Gangrene, not elsewhere classified (principal); L89.514 Pressure ulcer of right ankle, stage 4; G82.54 Quadriplegia, C5-C7 incomplete; L89.154 Pressure ulcer of sacral region, stage 4; L89.894 Pressure ulcer of other site, stage 4; L89.614 Pressure ulcer of right heel, stage 4; L89.314 Pressure ulcer of right buttock, stage 4; L89.324 Pressure ulcer of left buttock, stage 4; N39.0 Urinary tract infection, site not specified; G90.3 Multi-system degeneration of the autonomic nervous system; M86.18 Other acute osteomyelitis, other site; M86.39 Chronic multifocal osteomyelitis, multiple sites; B95.1 Streptococcus, group B, as the cause of diseases classified elsewhere; G90.1 Familial dysautonomia [Riley-Day]; D63.8 Anemia in other chronic diseases classified elsewhere; N31.9 Neuromuscular dysfunction of bladder, unspecified; Z93.3 Colostomy status; Z86.14 Personal history of Methicillin resistant Staphylococcus aureus infection; Z95.0 Presence of cardiac pacemaker
CPT/HCPCS: 00400; 36415; 36430; 36573; 72170; 72220; 80048; 80053; 80076; 81003; 81015; 82330; 82728; 82803; 82977; 83540; 83550; 83605; 83690; 83735; 84145; 84443; 84484; 85018; 85025; 85027; 85610; 86140; 86850; 86870; 86880; 86885; 86900; 86901; 86905; 86922; 87040; 87081; 87086; 88307; 88311; A9270; C1751; G0378; J0696; J1170; J1335; J2250; J2370; J2405; J2704; J3010; J3475; J3480; J7050; J7120; P9016; P9047

== ENCOUNTER 2022-05-26 10:15 | Outpatient (CLI) | payer OTHER, MEDICARE, SELFPAY ==
--- OUTSIDE RECORDS SUMMARY | 2022-05-26 10:35 | XMS_ITS | Encounter Summary ---
:1955 Author Organization [facility] Address 1 [place] [address] Phone Care Team Providers Name Role Phone Provider, Outside Primary Care Provider Unavailable Reason for Visit Reason Onset Date Comments Refill Request 12/23/2016 Encounter Details Date Type Department Care Team Description 12/23/2016 Refill [facility] Urology Clinic Divya Caraballo RN Refill Request [address] [facility], [address] [place], [place] [address] [place] [address] Social History Tobacco Use Types Packs/Day Years [...] on filedocumented in this encounter Care Teams Bracelet Maker Novelty Relationship Specialty Start Date End Date Provider, Outside PCP - General 03/13/09 10/22/18 [place] [address] documented as of this encounter
--- OUTSIDE RECORDS SUMMARY | 2022-05-26 10:35 | XMS_ITS | Encounter Summary ---
:1955 Author Organization [facility] Address [address] [place] [address] Phone Care Team Providers Name Role Phone Lila Clay PT Unavailable Reason for Visit Prior Authorization (Routine) - Closed Specialty Diagnoses / Procedures Referred By Contact Refer red To Contact Physical Therapy / Diagnoses Quadriplegia () At high risk for skin breakdown Impaired mobility Provider, Outside Lila Clay, PHYSICAL MEDICINE AND Procedures PT TREATMENT PLAN OUTSIDE PROVIDER PT REHAB [address] [address] Phone: Fax: Referral ID Status Reason Start Date Expiration Date Visits Requ ested Visits Authorized [id number] Closed 05/05/2021 01/20/2022 12 12 Encounter Details Date Type Department Care Team Description 06/09/2021 Hospital Encounter Clinic & Specialty Provider, Outside OUTSIDE PROVIDER [address] Copy Room Technician apy Lila Clay, PT [address] [place] [address] Social History Tobacco Use Types Packs/Day [...] Hospitalization: None Referring Provider: MD Yamile Alves, PRODUCTION CONTROL ANALYST ?? Current Precautions/Contraindications: At high risk for skin breakdown, s/p flap surgery, current pressure injuries on feet [facility] [place] [facility] [place] Marketing Operations Consultant: no Patient gave two identifiers for Check 2 for Safety Total Treatment Time: 70 Min Pain: No significant complaints during session S: Pt presents to his PT session in his [facility], independently. Also present: Matthew Ricketts/[employer]. Last 30 min of the session, patient's QRC (Raquel Gamino, RN, PHN, [place] P: [phone], F: [phone]) No significant changes; still attends wound clinic for B foot injuries weekly - missed yesterday so will be seen later this week. Pt agreed that he would like to try to adjust 1-2 items at a time; assess tolerance, and then move forward with additional changes as appropriate. Noticed that additional 'dump' is 'different' but tolerable. O: [Billable Units/Time] (71588) Wheelchair Management: 70 min Pt remained in [...] require a new back frame to the [facility], but would provide additional depth to the [...] to be able to transfer in/out of [facility] independently. At end of session, all agreed [...] date include: Increased posterior seat dump on [facility] this date and pt tolerated well - [...] be obtained before then? Lila Clay PT [facility] License: #[id number] Pager: [phone] Office: [phone] ING MILL OPERATOR HELPER documented in this encounter Plan of Treatment Not on filedocumented as of this encounter Visit Diagnoses Not on filedocumented in this encounter Care Teams Igniter Capper Relationship Specialty Start Date End Date Lila Clay, PT Physical Therapist Physical Therapy 04/05/21 [address] [place] [address] documented as of this encounter
--- OUTSIDE RECORDS SUMMARY | 2022-05-26 10:35 | XMS_ITS | Encounter Summary ---
:1955 Author Organization [facility] Address [address] [place] [address] Phone Care Team Providers Name Role Phone Provider, Outside Primary Care Provider Unavailable Reason for Visit Reason Onset Date Comments Refill Request 10/06/2016 re: Macrodantin Encounter Details Date Type Department Care Team Description 10/06/2016 Telephone [facility] Urology Clinic Divya Avendano Refi ll Request (re: Yordy ASH Macrodantin) [address] , [address] [place], [place] [address] [place], [place] [phone] [address] Social History Tobacco Use Types Packs/Day Years [...] on filedocumented in this encounter Care Teams Bulk Receiver Relationship Specialty Start Date End Date Provider, Outside PCP - General 03/13/09 10/22/18 [place] [address] documented as of this encounter
--- OUTSIDE RECORDS SUMMARY | 2022-05-26 10:35 | XMS_ITS | Encounter Summary ---
:1955 Author Organization [facility] Address [address] [place] [address] Phone Care Team Providers Name Role Phone Hallie Clay PT Unavailable Reason for Referral Prior Authorization (Routine) - Closed Specialty Diagnoses / Procedures Referred By Contact Refer red To Contact Physical Therapy / Diagnoses Quadriplegia () At high risk for skin breakdown Impaired mobility Provider, Outside Hallie Clay, PHYSICAL MEDICINE AND Procedures PT TREATMENT PLAN OUTSIDE PROVIDER PT REHAB [place], [place] [id number] [place] [address] Phone: Fax: Referral ID Status Reason Start Date Expiration Date Visits Requ ested Visits Authorized [id number] Closed 05/05/2021 01/20/2022 12 12 BATH MIXER Reason for Visit Prior Authorization (Routine) - Closed Specialty Diagnoses / Procedures Referred By Contact Refer red To Contact Physical Therapy / Diagnoses Quadriplegia () At high risk for skin breakdown Impaired mobility Provider, Outside Hallie Clay, PHYSICAL MEDICINE AND Procedures PT TREATMENT PLAN OUTSIDE PROVIDER PT REHAB [place], [place] [id number] [place] [address] Phone: Fax: Referral ID Status Reason Start Date Expiration Date Visits Requ ested Visits Authorized [id number] Closed 05/05/2021 01/20/2022 12 12 Encounter Details Date Type Department Care Team Description 07/14/2021 Hospital Encounter Clinic & Specialty Provider, [place] [address] Center Architect Intern apHallie Hopkins, PT [address] [address] [address] [address] Social History Tobacco Use Types [...] Signature: Date: 07/14/2021 Date: Please return to: [facility] Physical Therapy [address] [address] RECERTIFICATION SUMMARY New Recertification period: 07/14/21 to [...] Recent Hospitalization:??None?? Referring Provider:?? MD Yamile Alves, PRIVATE WEALTH ADVISOR ?? Current Precautions/Contraindications:?At high risk for skin breakdown, s/p flap surgery, currentpressure injuries on feet [facility] Clay Plant Treater:?no ?? Patient gave two identifiers for Check 2 for Safety Total Treatment Time: 55 Min ?? Pain: No significant complaints during session ?? S: Pt presents to his PT session in his [facility], independently. Also present: Matthew Ricketts/[employer]. Received his new off loading boots from Inking Machine Tender Commercial Real Estate Manager yesterday, started wearing them as of yesterday and is having difficulties with them (during transfers especially) due to the weight - also noted that they have elevated his knees which causes concern for increased pressure on IT's. ?? O: [Billable Units/Time] ?? (19220) Wheelchair Management: 55 min Pressure mapping completed [...] up with B UE's for having pressure slab miller operator placed over, completed with CGA) +Sitting on [...] Recommend removing foam sole, and placing nonskid surface/final operations technician bottom instead (lowest height possible) 4) [...] - thank you. 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 Hallie Clay, PT ATP [place] License: #[id number] Pager: [phone] Office: [phone] ? Recertification Assessment of need for continued skilled physical therapy interventions: Patient continues to make steady progress toward short term and long-term goals which have been updated to reflect [...] Specific Question: Schedule with: Answer: HALLIE CLAY [[id number]] Order Specific Question: Number of Visits patient [...] Specific Question: Schedule with: Answer: HALLIE CLAY [[id number]] Order Specific Question: Number of Visits patient should be scheduled for? Answer: 1 Order Specific Question: Modalities and Procedures Answer: Procedures Order Specific Question: Procedure Answer: Functional Activities Order Specific Question: Procedure Answer: Neuromuscular Re-education Order Specific Question: Procedure Answer: Self Care/Home Management/ADL Order Specific Question: Procedure Answer: Wheelchair Management and Training Hallie Clay PT ATP Date [place] License: #[id number] Pager: [phone] Office: [phone] BATH MIXER documented in this encounter Plan of Treatment Not on filedocumented as of this encounter Visit Diagnoses Diagnosis Quadriplegia () Quadriplegia, unspecified At high risk for skin breakdown Other specified conditions influencing h ealth status Impaired mobility Other ill-defined conditions documented in this encounter Care Teams Senior Business Consultant Relationship Specialty Start Date End Date Hallie Clay PT Physical Therapist Physical Therapy 04/05/[address] [place] [address] documented as of this encounter
--- OUTSIDE RECORDS SUMMARY | 2022-05-26 10:35 | XMS_ITS | Encounter Summary ---
:1955 [address] [facility] Address [address] [place] [address] Phone Care Team Providers Name Role Phone Lila Clay PT Unavailable Reason for Visit Prior Authorization (Routine) - Closed Specialty Diagnoses / Procedures Referred By Contact Refer red To Contact Physical Therapy / Diagnoses Quadriplegia () At high risk for skin breakdown Impaired mobility Provider, Outside Lila Clay, PHYSICAL MEDICINE AND Procedures PT TREATMENT PLAN OUTSIDE PROVIDER PT REHAB [address] [address] Phone: Fax: Referral ID Status Reason Start Date Expiration Date Visits Requ ested Visits Authorized [id number] Closed 05/05/2021 01/20/2022 12 12 Encounter Details Date Type Department Care Team Description 08/11/2021 Hospital Encounter Clinic & Specialty Provider, [place] [address] No Show Center Canvas Baster apy Lila Clay, PT [address] [place] [address] Social History Tobacco Use Types Packs/Day [...] request, with this therapist. Lila Clay PT [facility] License: #[id number] Pager: [phone] Office: [phone] SEWER documented in this encounter Plan of Treatment Not on filedocumented as of this encounter Visit Diagnoses Not on filedocumented in this encounter Care Teams Hog Slaughterer Relationship Specialty Start Date End Date Lila Clay, PT Physical Therapist Physical Therapy 04/05/21 [address] [place] [address] documented as of this encounter
--- OUTSIDE RECORDS SUMMARY | 2022-05-26 10:35 | XMS_ITS | Encounter Summary ---
:1955 Author [address] [facility] Address 1 [place] [address] Phone Care Team Providers Name Role Phone Provider, Outside Primary Care Provider Unavailable Reason for Visit Reason Onset Date Comments Refill Request 01/12/2018 Encounter Details Date Type Department Care Team Description 01/12/2018 Refill Clinic & Specialty Center Monty Garcia MD Refill Request Urology Clinic [address] [place] [address] [address] [place] [address] [phone] Social History Tobacco Use Types Packs/Day Years [...] on filedocumented in this encounter Care Teams Practice Physician Relationship Specialty Start Date End Date Provider, Outside PCP - General 03/13/09 10/22/18 [place] [address] documented as of this encounter
--- OUTSIDE RECORDS SUMMARY | 2022-05-26 10:35 | XMS_ITS | Encounter Summary ---
:1955 Author Organization [facility] Address 1 [place] [address] Phone Care Team Providers Name Role Phone Provider, Outside Primary Care Provider Unavailable Reason for Visit Reason Onset Date Comments Other 2018 Encounter Details Date Type Department Care Team Description 2018 Telephone Clinic & Specialty Monty Garcia MD Appointment Center Urology Clini c 701 [facility] P5 Cancellation [address] [phone] (Wo rk) Social History Tobacco Use Types [...] on filedocumented in this encounter Care Teams Psych Therapist Relationship Specialty Start Date End Date Provider, Outside PCP - General 8/21/09 4/1/19 [place] [address] documented as of this encounter
--- OUTSIDE RECORDS SUMMARY | 2022-05-26 10:35 | XMS_ITS | Encounter Summary ---
:1955 Author Organization [facility] Address 1 [place] [address] Phone Care Team Providers Name Role Phone Lila Clay PT Unavailable Reason for Visit Prior Authorization (Routine) - Auth Not Needed Specialty Diagnoses / Procedures Referred By Contact Refer red To Contact Physical Medicine and Diagnoses Quadriplegia, unspecified Quadriplegia, C5-C7 incomplete Muscle spasticity [M62.838] (Reminder letter sent 09/29/21 cl) Zev Alvarez MD Rehab / NEUROLOGY [facility] Procedures [facility] - [facility] [address] [place] [address] [place] [address] Phone: Fax: Referral ID Status Reason Start Date Expiration Date Visits V isits Requested Authorized [id number] Auth Not 1 2 Needed Encounter Details Date Type Department Care Team Description 10/21/2021 Hospital Encounter Clinic & Specialty Zev Alvarez , Non Billable Center [facility] [address] [place] [address] 4 [place], [place] [phone] (Wo rk) Social History Tobacco Use Types [...] Name: Khanh Rene : 1955 Medical Record: [id number] History of Present Illness: 66 year old [...] to his right leg on 07/08/2019 at [facility] (Administered as 100 BF, 50 SM, [...] and discussed with Dr. Kim Ash, PGY-5, [facility] Brain Injury Fellow Pager# [phone] Associated attestation - Zev Alvarez MD - [...] on filedocumented in this encounter Care Teams Track Moving Machine Operator Relationship Specialty Start Date End Date Lila Clay, PT Physical Therapist Physical Therapy 04/05/21 [address] [place] [address] documented as of this encounter
--- OUTSIDE RECORDS SUMMARY | 2022-05-26 10:35 | XMS_ITS | Encounter Summary ---
:1955 Author Organization [facility] Address [address] [place] [address] Phone Care Team Providers Name Role Phone Provider, Outside Primary Care Provider Unavailable Reason for Visit Reason Onset Date Comments Refill Request 12/27/2017 propantheline Medication Refill 01/08/2018 propantheline Encounter Details Date Type Department Care Team Description 12/27/2017 Refill Clinic & Specialty Monty Garcia MD Refill Request Center Urology Clini c 701 [facility] P5 (propantheline); [address] Medication Refill [place], [place] [phone] (propantheline) [phone] (Wo rk) Social History Tobacco Use Types [...] generic message for pt to call the [facility] and ask for a RN. A/P: [...] chart- no MITCHELL on file. Wale Russell physician underwriter does have message to pass along, but no MITCHELL in the chart and cannot share info due to HIPPA. Charlene Russell said she understood. She requested we call Khanh and let him know the response. Chairman & Ceo called Khanh and no answer. Left message [...] Center 02/01/2018 2:00 PM Monty Garcia MD [facility] Special documented in this encounter Plan of Treatment Not on filedocumented as of this encounter Visit Diagnoses Not on filedocumented in this encounter Care Teams Security Assurance Analyst Relationship Specialty Start Date End Date Provider, Outside PCP - General 03/13/09 10/22/18 [place] [address] documented as of this encounter
--- OUTSIDE RECORDS SUMMARY | 2022-05-26 10:35 | XMS_ITS | Clinical Summary ---
:1955 Author Organization [facility] Address [address] [place] [address] Phone Care Team Providers Name Role Phone Lila Clay PT Unavailable Source Comments Ancanco is fully rolled out on [email or web address]. Last update 12/26/08.[facility] Allergies Active Allergy Reactions Severity Noted Date [...] Comments Blood Pressure 135/74 09/02/2021 8:12 AM REPORTING DEVELOPER Pulse 72 09/02/2021 8:12 AM REPORTING DEVELOPER Temperature 36.2 ??C (97.1 ??F) 09/15/2016 8:09 AM REPORTING DEVELOPER Respiratory Rate 14 04/20/2010 1:39 PM CDT [...] Phone Address Typ e / Group Dates [facility] [id number] 1989-Pre [phone] [address] Work Comp [employer] sent [address] [employer] [place] [place] [address] [facility] [id number] 2020-Pres [address] [facility] (MEDICARE ent [id number] Managed Care ADVANTAGE) [place] [address] [id number] Workers Comp Employer 1955 % Cb ert (Home) [place] [address] [address] S[address] [address] Care Teams Roller Man Relationship Specialty Start Date End Date Lial Clay, PT Physical Therapist Physical Therapy 04/05/21 [address] [place] [address]
--- OUTSIDE RECORDS SUMMARY | 2022-05-26 10:35 | XMS_ITS | Encounter Summary ---
:[address] [facility] Address [address] [place] [address] Phone Care Team Providers Name Role Phone Provider, Outside Primary Care Provider Unavailable Reason for Visit Reason Comments Follow-up NEUROGENIC BLADDER Encounter Details Date Type Department Care Team Description 09/15/2016 Office Visit [facility] Urology Clinic Monty Garcia Neur ogenic bladder Yordy FALCON (Primary Dx) [address] , [address] [place] [address] [place], [place] [address] [phone] Social History Tobacco Use Types Packs/Day Years [...] Comments Blood Pressure 129/74 09/15/2016 8:09 AM PRINCIPAL TECHNICAL ARCHITECT Pulse 75 09/15/2016 8:09 AM PRINCIPAL TECHNICAL ARCHITECT Temperature 36.2 ??C (97.1 ??F) 09/15/2016 8:09 AM PRINCIPAL TECHNICAL ARCHITECT Respiratory Rate - - Oxygen Saturation - [...] fevers. Patient has had several admissions at [facility] for decubitus ulcers in the last year. [...] MD, 09/15/2016 9:14 AM Urology Staff Pager: [phone] CIPAL TECHNICAL ARCHITECT documented in this encounter Plan of Treatment Not on filedocumented as of this encounter Visit Diagnoses Diagnosis Neurogenic bladder - Primary Neurogenic bladder, NOS documented in this encounter Care Teams Sealing Machine Operator Relationship Specialty Start Date End Date Provider, Outside PCP - General 03/13/09 10/22/18 [place] [address] documented as of this encounter
--- OUTSIDE RECORDS SUMMARY | 2022-05-26 10:35 | XMS_ITS | Encounter Summary ---
:1955 Author Organization [facility] Address [address] [place] [address] Phone Care Team Providers Name Role Phone Unavailable Primary Care Provider Unavailable Encounter Details Date Type Department Care Team Description 09/14/2020 Immunization [facility] Viral Clinic Jonathan Chu MD [address] [phone] Need for vaccination [address] Nurse, [facility] Vaccine 701 [place] [address] (Primary Dx) [place], [place] [address] Social History Tobacco Use Types [...] with No / Unsure 08/20/2020 3:15 PM BROOD STATION MANAGER someone who was confirmed or suspected to have Coronavirus / COVID-19? documented as of this encounter Plan of Treatment Not on filedocumented as of this encounter Visit Diagnoses Diagnosis Need for vaccination - Primary Need for prophylactic vaccination and in oculation against unspecified single disease documented in this encounter
--- OUTSIDE RECORDS SUMMARY | 2022-05-26 10:35 | XMS_ITS | Encounter Summary ---
:[address] [facility] Address 1 [place] [address] Phone Care Team Providers Name Role Phone Unavailable Primary Care Provider Unavailable Encounter Details Date Type Department Care Team Description 08/20/2020 Immunization [facility] Viral Clinic Jonathan Chu MD [address] [address] COVID-19; [address] Nurse, [facility] Vaccine 701 [place] [address] Need for vaccination [place], [place] [address] Social History Tobacco Use Types [...] with No / Unsure 08/20/2020 3:15 PM CORRECTIONAL OFFICER LIEUTENANT someone who was confirmed or suspected to have Coronavirus / COVID-19? documented as of this encounter Plan of Treatment Not on filedocumented as of this encounter Visit Diagnoses Diagnosis COVID-19 Need for vaccination Need for prophylactic vaccination and in oculation against unspecified single disease documented in this encounter
--- OUTSIDE RECORDS SUMMARY | 2022-05-26 10:35 | XMS_ITS | Encounter Summary ---
:1955 Author Organization [facility] Address [address] [place] [address] Phone Care Team Providers Name Role Phone Provider, Outside Primary Care Provider Unavailable Reason for Visit Reason Onset Date Comments Medication Problem 01/10/2018 propantheline Encounter Details Date Type Department Care Team Description 01/10/2018 Nurse Triage Clinic & Specialty [facility]ty [facility] Center Urology Clini [facility] (propantheline) [address] [place] [address] [place] [address] 4 [place], [place] [phone] [address] Social History Tobacco Use Types Packs/Day Years [...] to me for years A-upon review of 5 Minutes is was found that Dr Garcia has [...] or severe? n/a Protocols used: MEDICATION QUESTION [id number] documented in this encounter Plan of Treatment Not on filedocumented as of this encounter Visit Diagnoses Not on filedocumented in this encounter Care Teams Food Supervisor Relationship Specialty Start Date End Date Provider, Outside PCP - General 03/13/09 10/22/18 [place] [address] documented as of this encounter
--- OUTSIDE RECORDS SUMMARY | 2022-05-26 10:35 | XMS_ITS | Encounter Summary ---
:1955 Author Organization [facility] Address [address] [place] [address] Phone Care Team Providers Name Role Phone Unavailable Primary Care Provider Unavailable Reason for Visit Reason Comments Other Encounter Details Date Type Department Care Team Description 03/27/2020 Refill Clinic & Specialty Center Monty Garcia MD Other Urology Clinic [address] [place] [address] [place] [address] [phone] Social History Tobacco Use Types Packs/Day Years [...]
--- OUTSIDE RECORDS SUMMARY | 2022-05-26 10:35 | XMS_ITS | Encounter Summary ---
:1955 Author Organization [facility] Address [address] [place] [address] Phone Care Team Providers Name Role Phone Provider, Outside Primary Care Provider Unavailable Encounter Details Date Type Department Care Team Description 10/07/2016 Hospital Encounter [facility] Ultrasound Monty Garcia MD [address] [place] [address] .[address] [place], [place] [phone] (Wo rk) Social History Tobacco Use Types [...] Radiologist: Alex Nava Reading Resident: Lorna Bowens Narrative 10/07/2016 3:49 PM CDT History: Nephrolithiasis. Comparison: [...] NOS documented in this encounter Care Teams Inclinometer Tester Relationship Specialty Start Date End Date Provider, Outside PCP - General 03/13/09 10/22/18 [place] [address] documented as of this encounter
--- OUTSIDE RECORDS SUMMARY | 2022-05-26 10:35 | XMS_ITS | Encounter Summary ---
:1955 Author Organization [facility] Address [address] [place] [address] Phone Care Team Providers Name Role Phone [...] with No / Unsure 08/20/2020 3:15 PM FLOATING DERRICK OPERATOR someone who was confirmed or suspected to have Coronavirus / COVID-19? documented as of this encounter Plan of Treatment Not on filedocumented as of this encounter Visit Diagnoses Not on filedocumented in this encounter
--- OUTSIDE RECORDS SUMMARY | 2022-05-26 10:35 | XMS_ITS | Encounter Summary ---
:1955 Author Organization [facility] Address 1 [place] [address] Phone Care Team Providers Name Role Phone Provider, Outside Primary Care Provider Unavailable Reason for Visit Reason Onset Date Comments Refill Request 09/05/2016 Encounter Details Date Type Department Care Team Description 09/05/2016 Refill [facility] Divya Caraballo RN Refill Request [address] [facility], [address] [place], [place] [address] [place] [address] Social History Tobacco Use Types Packs/Day Years [...] NOS documented in this encounter Care Teams Cowlman Relationship Specialty Start Date End Date Provider, Outside PCP - General 03/13/09 10/22/18 [place] [address] documented as of this encounter
--- OUTSIDE RECORDS SUMMARY | 2022-05-26 10:35 | XMS_ITS | Encounter Summary ---
:1955 Author Organization [facility] Address 1 [place] [address] Phone Care Team Providers Name Role Phone Unavailable Primary Care Provider Unavailable Reason for Visit Reason Onset Date Comments Refill Request 03/22/2019 propanthelin Encounter Details Date Type Department Care Team Description 03/22/2019 Refill Clinic & Specialty Monty Garcia MD Refill Request Center Urology Clini c 701 [facility] P5 (propanthelin) [address] [phone] (Wo rk) Social History Tobacco Use Types [...]
--- OUTSIDE RECORDS SUMMARY | 2022-05-26 10:35 | XMS_ITS | Encounter Summary ---
:1955 Author Organization [facility] Address [address] [place] [address] Phone Care Team Providers Name Role Phone Provider, Outside Primary Care Provider Unavailable Reason for Visit Reason Onset Date Comments Medication Refill 11/11/2016 propantheline (PRO-B ANTHINE) Encounter Details Date Type Department Care Team Description 11/11/2016 Refill [facility] Selena Garcia MD Medication Refill [place] 701 [facility] P5 (propantheline [address] [place], [place] (PRO-BANTHINE) ) [place], [place] [phone] (Wo rk) Social History Tobacco Use Types [...] mg oral tablet Pharmacy Name and Location: [facility] [address] [place] [phone] - [phone] - [address] [place] [address] Phone number for return call: .[phone] Did caller contact the pharmacy? yes: pharmacy [...] on filedocumented in this encounter Care Teams Veterinary Science Teacher Relationship Specialty Start Date End Date Provider, Outside PCP - General 03/13/09 10/22/18 [place] [address] documented as of this encounter
--- OUTSIDE RECORDS SUMMARY | 2022-05-26 10:35 | XMS_ITS | Encounter Summary ---
:1955 Author Organization [facility] Address [address] [place] [address] Phone Care Team Providers Name Role Phone Unavailable Primary Care Provider Unavailable Encounter Details Date Type Department Care Team Description 08/18/2020 Orders Only [facility] Viral Cl Jonathan Sierra MD COVID-19 7650 [facility] N 701 [facility] G5 [place], [place] [address] [place], [place] [phone] (Wo rk) Social History Tobacco Use Types [...] with No / Unsure 08/20/2020 3:15 PM PYTHON JAVA DEVELOPER someone who was confirmed or suspected to have Coronavirus / COVID-19? documented as of this encounter Plan of Treatment Not on filedocumented as of this encounter Visit Diagnoses Diagnosis COVID-19 documented in this encounter
--- OUTSIDE RECORDS SUMMARY | 2022-05-26 10:35 | XMS_ITS | Encounter Summary ---
:1955 Author Organization [facility] Address [address] [place] [address] Phone Care Team Providers Name Role Phone [...] filedocumented in this encounter Care Teams Epic Professional Relationship Specialty Start Date End Date Lila Clay, PT Physical Therapist Physical Therapy 04/05/21 [address] [place] [address] documented as of this encounter
--- OUTSIDE RECORDS SUMMARY | 2022-05-26 10:35 | XMS_ITS | Encounter Summary ---
:1955 Author Organization [facility] Address 1 [place] [address] Phone Care Team Providers Name Role Phone Lila Clay PT Unavailable Reason for Visit Prior Authorization (Routine) - Closed Specialty Diagnoses / Procedures Referred By Contact Refer red To Contact Physical Therapy / Diagnoses Quadriplegia () At high risk for skin breakdown Impaired mobility Provider, Outside Lila Clay, PHYSICAL MEDICINE AND Procedures PT TREATMENT PLAN OUTSIDE PROVIDER PT REHAB [place] [address] [place] [address] Phone: Fax: Referral ID Status Reason Start Date Expiration Date Visits Requ ested Visits Authorized [id number] Closed 05/05/2021 01/20/2022 12 12 Encounter Details Date Type Department Care Team Description 09/01/2021 Hospital Encounter Clinic & Specialty Lila Clay, No [facility] Green Hide Inspector apy PT [address] [place] [address] 4 [place], [place] [phone] Social History Tobacco Use Types Packs/Day Years [...] items have been addressed. Lila Clay PT [facility] License: #[id number] Pager: [phone] Office: [phone] S FORCE ADMINISTRATOR documented in this encounter Plan of Treatment Not on filedocumented as of this encounter Visit Diagnoses Not on filedocumented in this encounter Care Teams Pouring Crane Operator Relationship Specialty Start Date End Date Lila Clay, PT Physical Therapist Physical Therapy 04/05/21 [address] [place] [address] documented as of this encounter
--- OUTSIDE RECORDS SUMMARY | 2022-05-26 10:35 | XMS_ITS | Encounter Summary ---
:1955 Author Organization [facility] Address 701 [facility] [place] [address] Phone Care Team Providers Name Role Phone Lila Clay PT Unavailable Reason for Visit Reason Onset Date Comments Prior Authorization For Medications 09/03/2021 Boto x (onabotulinumtoxinA) Encounter Details Date Type Department Care Team Description 09/03/2021 Pharmacy Prior [facility] P1 Pharmacy Sakshi Mcmanus, Authorization 701 [facility] PharmD P1.630 701 [place], [place] [address] [place], [place] [phone] Social History Tobacco Use Types Packs/Day Years [...] the patient has active primary coverage through [facility] MEDIC[facility]VANTAGE ([facility]). [facility] does NOT require prior authorization for BOTOX when it is given in the clinic/infusion center and billed on the medical claim (buy and bill). IMPORTANT - READ BELOW However, [facility] reimburses BOTOX only for select designated ICD-10/Diagnosis Codes. Based on review of the patient's chart, please (continue to) use the following COVERED diagnosis code for the visits in which the patient will receive BOTOX: - G82.50 or G82.54 Quadriplegia Update 01/27/2022 - Unable to get response from [facility]. Per 10/21/2021 note appears patient was going [...] on filedocumented in this encounter Care Teams Concrete Buster Operator Relationship Specialty Start Date End Date Lila Clay, PT Physical Therapist Physical Therapy 04/05/[address] [place] [address] documented as of this encounter
--- OUTSIDE RECORDS SUMMARY | 2022-05-26 10:35 | XMS_ITS | Encounter Summary ---
:1955 Author Organization [facility] Address [address] [place] [address] Phone Care Team Providers Name Role Phone Lila Clay PT Unavailable Reason for Visit Prior Authorization (Routine) - Closed Specialty Diagnoses / Procedures Referred By Contact Refer red To Contact Physical Therapy / Diagnoses Quadriplegia () At high risk for skin breakdown Impaired mobility Provider, Outside Lila Clay, PHYSICAL MEDICINE AND Procedures PT TREATMENT PLAN OUTSIDE PROVIDER PT REHAB [address] [address] Phone: Fax: Referral ID Status Reason Start Date Expiration Date Visits Requ ested Visits Authorized [id number] Closed 05/05/2021 01/20/2022 12 12 Encounter Details Date Type Department Care Team Description 06/02/2021 Hospital Encounter Clinic & Specialty Provider, Outside OUTSIDE PROVIDER [address] Record Tabulating Clerk apy Lila Clay, PT [address] [place] [address] Social History Tobacco Use Types Packs/Day [...] Hospitalization: None Referring Provider: MD Yamile Alves, CHINCHILLA FARMER ?? Current Precautions/Contraindications: At high risk for skin breakdown, s/p flap surgery, current pressure injuries on feet [facility] In House Counsel: no Patient gave two identifiers for Check [...] additional changes as appropriate. O: [Billable Units/Time] (44002) Wheelchair Management: 60 min Transfer MWC/mat table [...] passive IR/ER WNL. Adjustments made to patient's [facility] this date: +Increased posterior seat dump by 1 +lowered footplates B by approximately 1 Pt returned to sitting in [facility] at end of session, able to self [...] Clay, PT [employer] [place] License: #[id number] Pager: [phone] Office: [phone] SWEEPER documented in this encounter Plan of Treatment Not on filedocumented as of this encounter Visit Diagnoses Not on filedocumented in this encounter Care Teams Pipe Bending Machine Operator Relationship Specialty Start Date End Date Lila Clay, PT Physical Therapist Physical Therapy 04/05/21 [address] [place] [address] documented as of this encounter
--- OUTSIDE RECORDS SUMMARY | 2022-05-26 10:35 | XMS_ITS | Encounter Summary ---
:1955 Author Organization [facility] Address [address] [place] [address] Phone Care Team Providers Name Role Phone Provider, Outside Primary Care Provider Unavailable Encounter Details Date Type Department Care Team Description 01/02/2018 Nurse Triage Clinic & Specialty Center Farida Dueñas, processor grain Clinic [address] [address] [place], [place] [address] Social History Tobacco Use Types [...] on filedocumented in this encounter Care Teams Collar Runner Relationship Specialty Start Date End Date Provider, Outside PCP - General 03/13/09 10/22/18 [place] [address] documented as of this encounter
--- OUTSIDE RECORDS SUMMARY | 2022-05-26 10:35 | XMS_ITS | Encounter Summary ---
:1955 Author Organization [facility] Address [address] [place] [address] Phone Care Team Providers Name Role Phone Unavailable Primary Care Provider Unavailable Reason for Visit Reason Onset Date Comments Refill Request 04/03/2020 Encounter Details Date Type Department Care Team Description 04/03/2020 Refill Clinic & Specialty Center Monty Garcia MD Refill Request Urology Clinic [address] [place] [address] [place] [address] [phone] Social History Tobacco Use Types Packs/Day Years [...]
--- OUTSIDE RECORDS SUMMARY | 2022-05-26 10:35 | XMS_ITS | Encounter Summary ---
:1955 Author Organization [facility] Address 1 [place] [address] Phone Care Team Providers Name Role Phone Hallie Clay PT Unavailable Encounter Details Date Type Department Care Team Description 05/05/2021 Hospital Encounter Clinic & Specialty Alex [place]ata [address] [place] [address] [place] [address] Center Pipe Layer apy Hallie Clay, PT [address] [address] Social History Tobacco Use Types [...] Provider: Dr. Alex Mata, MD Yamile [place], FINANCIAL MANAGEMENT Current Precautions/Contraindications: At high risk for skin breakdown, s/p flap surgery, current pressure injuries on feet [facility] Order Make Up Clerk: no DIAGNOSIS Patient Active Problem List Diagnosis [...] prefer to work is BLANQUITA Brown of [employer] The vendor is not present during today's evaluation. 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 He has utilized a manual wheelchair as his primary means of mobility since then. He has a significant pressure injury history, including on his sacral area and feet. He received his current MWC through [employer] on 10/06/20. SUBJECTIVE Patient Complaints: I just [...] Function: Randy will cont to use his [facility] and rehab accessories to complete all MRADL's, [...] independently (with hand controls) while seated in [facility]) Does it fold/disassemble for transportation?: Yes Is [...] Flexion Elbow Extension Wrist Flexion Wrist Extension Math And Science Instructor Using BERNY hand dynamometer Lower Extremity Right MMT Left MMT WFL 0/5 0/5 Hip Flexion Hip Extension Hip Abduction Knee Flexion Knee Extension Dorsiflexion Inversion Eversion Plantar Flexion Great toe extension Normative hand cementer strength values for Berny dynamometer for clinical [...] the wheelchair/mobility device?: Yes Wheelchair Management/Training (CPT 11681): 15 min during session(s) Pressure mapping completed [...] Specific Question: Schedule with: Answer: HALLIE CLAY [[id number]] Order Specific Question: Number of Visits patient [...] conditions documented in this encounter Care Teams Camera Repairer Relationship Specialty Start Date End Date Hallie Clay, PT Physical Therapist Physical Therapy 04/05/21 [address] [place] [address] documented as of this encounter
--- OUTSIDE RECORDS SUMMARY | 2022-05-26 10:35 | XMS_ITS | Encounter Summary ---
:1955 Author Organization [facility] Address [address] [place] [address] Phone Care Team Providers Name Role Phone Lila Clay PT Unavailable Reason for Visit Reason Comments Referral Consult/Test/Treat (Routine) - Closed Specialty Diagnoses / Procedures Referred By Contact Refer red To Contact Physical Medicine and Diagnoses Paraplegia, unspecified paraplegia from previous in [place] 33 yrs James Nava Csc Pm&R Cl Rehab / PHYSICAL MD [place] [address] [place] [address] MEDICINE AND REHAB [address] [place] [phone] Fax: Referral ID Status Reason Start Date Expiration Date Visits V isits Requested Authorized [id number] Closed Created in 07/20/2021 07/20/2022 1 1 PAS Encounter Details Date Type Department Care Team Description 09/02/2021 Office Visit Clinic & Specialty Center Dariel Israel uadriplegia, C5-C7 incomplete () (Primary Dx); Physical Medicine & A, PA-C Muscle spasticity Rehabilitation Clini c [address] [place] [phone] Social History Tobacco Use [...] Comments Blood Pressure 135/74 09/02/2021 8:12 AM [employer] Pulse 72 09/02/2021 8:12 AM [employer] Temperature - - Respiratory Rate - - Oxygen Saturation - - Inhaled Oxygen Concentration - - Weight - - Height - - Body Mass Index - - documented in this encounter Progress Notes Dariel Israel PA-C - 09/02/2021 8:00 AM CST [facility] [...] is followed by a wound clinic in [place]. He just had a wheelchair evaluation in physical therapy here at [place]. He stated that around 2 to 3 [...] 5/5 EE 5/5 5/5 WE 4/5 4/5 Mamma Logist 3/5 3/5 Strength bilateral lower extremities 0/5 [...] service, including pre-visit review of separatelyobtained history, mryg-ln-efif interaction performing medically appropriate physical exam, patient counseling/education, interpretation of diagnostic results, care coordination and documentation was 46 minutes. Dictation Disclaimer: Notes are completed with voice-recognition dictation software. Errors are generally corrected in real time. Please contact me via [employer] staff message if you note any errors requiring clarification. [employer] documented in this encounter Plan of Treatment Scheduled Orders Name Type Priority Associated Diagnoses Order S chedule EMG - BOTOX EMG Routine Muscle spasticity Ordered: 0 09/02/2021 documented as of this encounter Procedures Procedure Name Priority Date/Time Associated Comments Diagnosis CARE EVERYWHERE 09/07/2021 11:04 Results for this AUTHORIZATION AM [employer] procedure are in the results section. CARE EVERYWHERE 09/07/2021 11:04 Results for this AUTHORIZATION AM [employer] procedure are in the results section. documented in this encounter Results CARE EVERYWHERE AUTHORIZATION (09/07/2021 11:04 AM [employer]) Narrative This result has an attachment that is no t available. Him Provider SCANNED CONSENTS CARE EVERYWHERE AUTHORIZATION (09/07/2021 11:04 AM [employer]) Narrative This result has an attachment that is no t available. Him Provider SCANNED CONSENTS documented in this encounter Visit Diagnoses Diagnosis Quadriplegia, C5-C7 incomplete () - Pr imary Quadriplegia, C5-C7, incomplete Muscle spasticity Spasm of muscle documented in this encounter Care Teams Research Staff Member Relationship Specialty Start Date End Date Lila Clay, PT Physical Therapist Physical Therapy 04/05/21 [address] [place] [address] documented as of this encounter
--- OUTSIDE RECORDS SUMMARY | 2022-05-26 10:36 | XMS_ITS | Encounter Summary ---
:1955 Author Organization [facility] Address [address] [facility] [place] [address] Phone Care Team Providers Name Role Phone Provider, Outside Primary Care Provider Unavailable Reason for Visit Reason Comments Follow-up Encounter Details Date Type Department Care Team Description 12/06/2010 Office Visit [facility] Phys Med/Rehab Sameera Frances U lcer () (Primary Clinic MD Dx) [address] 701 [facility] P5.200 Mail Code P5 [place], [place] [address] [place], [place] [phone] (Wo rk) Social History Tobacco Use Types [...] site documented in this encounter Care Teams Digging Machine Operator Relationship Specialty Start Date End Date Provider, Outside PCP - General 03/13/09 10/22/18 [place] [address] documented as of this encounter
--- OUTSIDE RECORDS SUMMARY | 2022-05-26 10:36 | XMS_ITS | Encounter Summary ---
:1955 Author Organization [facility] Address [address] [place] [address] Phone Care Team Providers Name Role Phone Provider, Outside Primary Care Provider Unavailable Encounter Details Date Type Department Care Team Description 02/05/2016 Orders Only [facility] Monty Garcia, Neur ogenic bladder Yordy FALCON (Primary Dx) [address] [facility] [address] [place], [place] [phone] Social History Tobacco Use Types Packs/Day Years [...] NOS documented in this encounter Care Teams Head Chopper Relationship Specialty Start Date End Date Provider, Outside PCP - General 03/13/09 10/22/18 [place] [address] documented as of this encounter
--- OUTSIDE RECORDS SUMMARY | 2022-05-26 10:36 | XMS_ITS | Encounter Summary ---
:1955 Author Organization [facility] Address [address] [place], [place] [address], [place] [address] Phone Care Team Providers Name Role Phone Provider, Outside Primary Care Provider Unavailable Encounter Details Date Type Department Care Team Description 10/01/2010 Orders Only [facility] Omar Savage, Neurogenic bladder [address] (Primary Dx) [place], [place] [address] Research Only [phone] Social History Tobacco Use Types Packs/Day Years [...] NOS documented in this encounter Care Teams Cnc Milling Machine Operator Relationship Specialty Start Date End Date Provider, Outside PCP - General 03/13/09 10/22/18 [place] [address] documented as of this encounter
--- OUTSIDE RECORDS SUMMARY | 2022-05-26 10:36 | XMS_ITS | Encounter Summary ---
:1955 Author Organization [facility] Address 1 [place] [address] Phone Care Team Providers Name Role Phone Provider, Outside Primary Care Provider Unavailable Reason for Visit Reason Comments Bladder Problem Encounter Details Date Type Department Care Team Description 01/26/2015 Office [place] [facility] [place] Monty Garcia Neur ogenic bladder Yordy FALCON (Primary Dx) [address] [facility] [place] [address] [place], [place] [phone] Social History Tobacco Use Types Packs/Day Years [...] - 01/26/2015 4:13 PM CDT [facility]OLOGY CL[facility] NEW PATIENT/CONSULT VISIT Khanh Rene : 1955 [...] NOS documented in this encounter Care Teams Jackerman Relationship Specialty Start Date End Date Provider, Outside PCP - General 03/13/09 10/22/18 [place] [address] documented as of this encounter
--- OUTSIDE RECORDS SUMMARY | 2022-05-26 10:36 | XMS_ITS | Encounter Summary ---
:1955 Author Organization [facility] Address [address] [place] [address] Phone Care Team Providers Name Role Phone Provider, Outside Primary Care Provider Unavailable Reason for Visit Reason Onset Date Comments Refill Request 09/05/2013 macrodantin Encounter Details Date Type Department Care Team Description 09/05/2013 Refill [facility] Urology Clinic Omar Savage MD Refill Request [facility] Only (macrodantin) [address] [place], [place] [address] Social History Tobacco Use Types [...] Savage, med send to to co sign. ENTIONAL MACHINIST documented in this encounter Plan of Treatment Not on filedocumented as of this encounter Visit Diagnoses Diagnosis Neurogenic bladder - Primary Neurogenic bladder, NOS documented in this encounter Care Teams Software Engineer Advisor Relationship Specialty Start Date End Date Provider, Outside PCP - General 03/13/09 10/22/18 [place] [address] documented as of this encounter
--- OUTSIDE RECORDS SUMMARY | 2022-05-26 10:36 | XMS_ITS | Encounter Summary ---
:1955 Author Organization [facility] Address [address] [place] [address] Phone Care Team Providers Name Role Phone Provider, Outside Primary Care Provider Unavailable Reason for Visit Reason Onset Date Comments Refill Request 07/05/2016 Encounter Details Date Type Department Care Team Description 07/05/2016 Refill [facility] Urology Clinic Divya Caraballo RN Refill Request [address] [facility], [address] [place], [place] [address] [place] [address] Social History Tobacco Use Types Packs/Day Years [...] NOS documented in this encounter Care Teams Edger Machine Operator Relationship Specialty Start Date End Date Provider, Outside PCP - General 03/13/09 10/22/18 [place] [address] documented as of this encounter
--- OUTSIDE RECORDS SUMMARY | 2022-05-26 10:36 | XMS_ITS | Encounter Summary ---
:1955 Author Organization [facility] Address [address] [place] [address] Phone Care Team Providers Name Role Phone Provider, Outside Primary Care Provider Unavailable Reason for Visit Reason Comments Other Encounter Details Date Type Department Care Team Description 02/20/2013 Telephone [facility] Omar Reyes MD [address], [address] Research Only [place], [place] [address] Social History Tobacco Use Types [...] Hussein Giron to refill Pro-Banthine. VORB Notified [facility] pharmacy at [phone]. Telephone Encounter - Danna Alvarez RN - [...] verbal refill request for Propantheline. Please call [phone] Expects Return Call at: ------ documented in this encounter Plan of Treatment Not on filedocumented as of this encounter Visit Diagnoses Not on filedocumented in this encounter Care Teams Wire Walker Relationship Specialty Start Date End Date Provider, Outside PCP - General 03/13/09 10/22/18 [place] [address] documented as of this encounter
--- OUTSIDE RECORDS SUMMARY | 2022-05-26 10:36 | XMS_ITS | Encounter Summary ---
:1955 Author Organization [facility] Address [address] [place] [address] Phone Care Team Providers Name Role Phone Provider, Outside Primary Care Provider Unavailable Reason for Visit Reason Onset Date Comments Call Back 09/30/2010 Encounter Details Date Type Department Care Team Description 09/30/2010 Nurse Triage [facility] Contact Center Quang Toscano, Call Back [facility] [address] [place] [address] Social History Tobacco Use Types Packs/Day [...] requests that she call back again at [phone]. R: routing to TMASTER Telephone Encounter - Quang Toscano RN - 09/30/2010 4:24 PM ROASTMASTER Message copied by QUANG TOSCANO on MonSep [...] CHRISTIANO TINAJERO Phone number for return call: [phone] [facility]MASTER documented in this encounter Plan of Treatment Not on filedocumented as of this encounter Visit Diagnoses Not on filedocumented in this encounter Care Teams Director Of Officiating Relationship Specialty Start Date End Date Provider, Outside PCP - General 03/13/09 10/22/18 [place] [address] documented as of this encounter
--- OUTSIDE RECORDS SUMMARY | 2022-05-26 10:36 | XMS_ITS | Encounter Summary ---
:1955 Author Organization [facility] Address [address] [place] [address] Phone Care Team Providers Name Role Phone Provider, Outside Primary Care Provider Unavailable Reason for Visit Reason Comments Follow-up Encounter Details Date Type Department Care Team Description 02/14/2011 Office Visit [facility] [place] [facility]Rehab Sameera Frances D ecubitus ulcer Clinic (Primary Dx) [address] [facility] [address] Mail Code [address] [place], [place] [address] [place], [place] [phone] (Wo rk) Social History Tobacco Use Types [...] site documented in this encounter Care Teams Zipper Cutter Relationship Specialty Start Date End Date Provider, Outside PCP - General 03/13/09 10/22/18 [place] [address] documented as of this encounter
--- OUTSIDE RECORDS SUMMARY | 2022-05-26 10:36 | XMS_ITS | Encounter Summary ---
:1955 Author Organization [facility] Address [address] [place] [address] Phone Care Team Providers Name Role Phone Provider, Outside Primary Care Provider Unavailable Reason for Visit Reason Onset Date Comments Refill Request 12/17/2013 Propantheline Encounter Details Date Type Department Care Team Description 12/17/2013 Refill [facility] Omar Savage MD Refill Request [facility] (Propantheline) [address], [address] [place], [place] [address] Social History Tobacco Use Types [...] on filedocumented in this encounter Care Teams Fashion Model Relationship Specialty Start Date End Date Provider, Outside PCP - General 03/13/09 10/22/18 [place] [address] documented as of this encounter
--- OUTSIDE RECORDS SUMMARY | 2022-05-26 10:36 | XMS_ITS | Encounter Summary ---
:1955 Author Organization [facility] Address [address] [place] [address] Phone Care Team Providers Name Role Phone Provider, Outside Primary Care Provider Unavailable Reason for Referral Consult/Test/Treat (Routine) - Closed Specialty Diagnoses / Procedures Referred By Contact Refer red To Contact Physical Therapy Diagnoses Decubitus ulcer Sameera Frances MD [address] Mail Code [address] [place], [place] [address] Referral ID Status Reason Start Date Expiration Date Visits Requ ested Visits Authorized [id number] Closed 01/17/2011 01/18/2012 1 1 Reason for Visit Reason Comments Neurologic Problem Encounter Details Date Type Department Care Team Description 01/17/2011 Office Visit [facility] [place]/Rehab Sameera Frances D ecubitus ulcer Clinic (Primary Dx) [address] Mail Code [address] [place], [place] [address] [place], [place] [phone] (Wo rk) Social History Tobacco Use Types [...] site documented in this encounter Care Teams Aquarist Relationship Specialty Start Date End Date Provider, Outside PCP - General 03/13/09 10/22/18 [place] [address] documented as of this encounter
--- OUTSIDE RECORDS SUMMARY | 2022-05-26 10:36 | XMS_ITS | Encounter Summary ---
:1955 Author Organization [facility] Address [address] [place] [address] Phone Care Team Providers Name Role Phone Provider, Outside Primary Care Provider Unavailable Encounter Details Date Type Department Care Team Description 11/15/2010 Office Visit [facility] [place] Med/Rehab Sameera Frances D ecubitus ulcer Clinic (Primary Dx) [address] [facility] [address] Mail Code [address] [place], [place] [address] [place], [place] [phone] (Wo rk) Social History Tobacco Use Types [...] Frances MD - 11/16/2010 10:42 [place] [address] MEDREC#: [id number] PATIENT: MICHEAL RENE : 1955 DATE: 11/15/2010 [...] Physical Medicine and Rehabilitation Service Received in Machine Pan Greaser: 11/15/2010 12:55 M: 11/16/2010 02:37 bj CLR/bj Voice ID: [id number] Document ID: [id number] cc:[place] [address] Sameera Frances MD - 11/15/2010 12:44 PM CDT See dictation Sameera Frances MD, 11/15/2010 12:44 PM documented in this encounter Plan of Treatment Not on filedocumented as of this encounter Visit Diagnoses Diagnosis Decubitus ulcer - Primary Pressure ulcer, unspecified site documented in this encounter Care Teams Corporate Travel Manager Relationship Specialty Start Date End Date Provider, Outside PCP - General 03/13/09 10/22/18 [place] [address] documented as of this encounter
--- OUTSIDE RECORDS SUMMARY | 2022-05-26 10:36 | XMS_ITS | Encounter Summary ---
:1955 Author Organization [facility] Address [address] [place] [address] Phone Care Team Providers Name Role Phone Provider, Outside Primary Care Provider Unavailable Reason for Visit Reason Comments Other Encounter Details Date Type Department Care Team Description 02/05/2016 Refill [facility] Monty Morales MD Other [address] [facility] [facility], [address] [address] [place] [address] [phone] (Wo rk) Social History Tobacco Use Types [...] filedocumented in this encounter Care Teams Behavioral Intervention Specialist Relationship Specialty Start Date End Date Provider, Outside PCP - General 03/13/09 10/22/18 [place] [address] documented as of this encounter
--- OUTSIDE RECORDS SUMMARY | 2022-05-26 10:36 | XMS_ITS | Encounter Summary ---
:1955 Author Organization [facility] Address [address] [place] [address] Phone Care Team Providers Name Role Phone Provider, Outside Primary Care Provider Unavailable Reason for Visit Reason Comments Neurologic Problem pmr Encounter Details Date Type Department Care Team Description 11/01/2010 Office [place] [facility] [place]/Rehab Sameera Frances D ecubitus ulcer, Clinic MD mackey (Primary Dx) [address] [facility] [address] Mail Code [address] [place], [place] [address] [place], [place] [phone] (Wo rk) Social History Tobacco Use Types [...] CDT Height - - Body Mass Index 21715.15 07/31/2007 3:21 PM OPERATIONS INSPECTOR documented in this encounter Patient Instructions Patient [...] 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
--- OUTSIDE RECORDS SUMMARY | 2022-05-26 10:36 | XMS_ITS | Encounter Summary ---
:1955 Author Organization [facility] Address [address] [place], [place] [address] [place] [address] Phone Care Team Providers Name Role Phone Provider, Outside Primary Care Provider Unavailable Reason for Visit Reason Comments Follow-up Encounter Details Date Type Department Care Team Description 06/06/2013 Office Visit [facility] Omar Savage, Neurog enic bladder Yordy FALCNO (Primary Dx) [address], [address] [place], [place] [address] Social History Tobacco Use Types [...] Comments Blood Pressure 88/58 06/06/2013 11:33 AM CANDLEMAKING LABORER Pulse 79 06/06/2013 11:33 AM CANDLEMAKING LABORER Temperature 36.8 ??C (98.2 ??F) 06/06/2013 11:33 AM CANDLEMAKING LABORER Respiratory Rate - - Oxygen Saturation - - Inhaled Oxygen Concentration - - Weight - - Height - - Body Mass Index - - documented in this encounter Patient Instructions Patient InstructionsOmar Savage MD - 06/06/2013 11:42 AM CST [facility] forwarded to us LEMAKING LABORER documented in this encounter Progress Notes Omar Savage MD - 06/08/2013 8:17 AM CST [facility] [address], [address] [place] [address] (fax) [facility]#: [id number] PATIENT: MICHEAL FLETCHER : 1955 DATE: 06/06/2013 [...] MD Staff Physician Surgery Service Received in Road Monkey: 06/08/2013 05:34 M: 06/08/2013 08:17 filiberto STEWART/filiberto Voice ID: [id number] Document ID: [id number] LEMAKING LABORER Omar Savage MD - 06/08/2013 5:32 AM CST This office note has been dictated. LEMAKING LABORER documented in this encounter Plan of Treatment Not on filedocumented as of this encounter Visit Diagnoses Diagnosis Neurogenic bladder - Primary Neurogenic bladder, NOS documented in this encounter Care Teams Sales And Merchandising Associate Relationship Specialty Start Date End Date Provider, Outside PCP - General 03/13/09 10/22/18 [place] [address] documented as of this encounter
--- OUTSIDE RECORDS SUMMARY | 2022-05-26 10:36 | XMS_ITS | Encounter Summary ---
:1955 Author Organization [facility] Address [address] [place] [address] Phone Care Team Providers Name Role Phone Provider, Outside Primary Care Provider Unavailable Reason for Visit Reason Comments Follow-up Encounter Details Date Type Department Care Team Description 09/24/2010 Office Visit [facility] [place] DaysiBubba Veronica us ulcer, stage Clinic MD Valery IV () (Primary Dx) [address] [facility] [address] Mail Code P[address] [place], [place] [address] [place], [place] [phone] Social History Tobacco Use Types Packs/Day Years Used Date Smoking Tobacco: Never Smokeless Tobacco: Never Alcohol Use Standard Drinks/Week Comments Yes 3.3 (1 standard drink = 0.6 oz pure alco hol) once in while Sex Assigned at Date Recorded Not on file documented as of this encounter Last Filed Vital Signs Vital Sign Reading Time Taken Comments Blood Pressure 107/73 09/24/2010 10:33 AM PILE OPERATOR Pulse 87 09/24/2010 10:33 AM PILE OPERATOR Temperature 36.8 ??C (98.2 ??F) 09/24/2010 10:33 AM PILE OPERATOR Respiratory Rate - - Oxygen Saturation - [...] of infection, please contact the Surgery clinic [phone]: redness, warmth, swelling, drainage, pain, and/or fever over 100 degrees. OPERATOR documented in this encounter Progress Notes Mari Odell RN - 09/24/2010 2:45 PM CST Wound care D: Here for wound care. Location: coccyx A: Exam per provider. Wound cleansed with: technicare, H2O and rinsed. Dressing applied: and wet to dry with 1/2 packing and 2x2's with Island dressing. R: Patient tolerated procedure well. P: As ordered by provider. OPERATOR Syl Yanes MD - 09/24/2010 11:21 AM [...] has received the special cushion from the [facility] which is supposed to relieve pressure from that area. He does have another apptset up with Soumya at the [facility] to complete the mapping to ensure [...] documented. Bubba Tavarez MD, 09/25/2010 9:26 AM OPERATOR documented in this encounter Plan of Treatment Not on filedocumented as of this encounter Visit Diagnoses Diagnosis Decubitus ulcer, stage IV () - Primary Pressure ulcer, unspecified site documented in this encounter Care Teams Java Golden Gate Developer Relationship Specialty Start Date End Date Provider, Outside PCP - General 03/13/09 10/22/18 [place] [address] documented as of this encounter
--- OUTSIDE RECORDS SUMMARY | 2022-05-26 10:36 | XMS_ITS | Encounter Summary ---
:1955 Author Organization [facility] Address [address] [facility] [place] [address] Phone Care Team Providers Name Role Phone Provider, Outside Primary Care Provider Unavailable Reason for Visit Reason Comments Neurologic Problem pmr Encounter Details Date Type Department Care Team Description 12/27/2010 Office Visit [facility] [place] Med/Rehab Abhinav Chavez MD NEED ADDRESS Ulcer () (Primary Clinic Sameera Frances MD [address] Mail Code [address] [place] [address] Dx) [address] [place], [place] [address] Social History Tobacco [...] site documented in this encounter Care Teams Pulley Mortiser Operator Relationship Specialty Start Date End Date Provider, Outside PCP - General 03/13/09 10/22/18 [place] [address] documented as of this encounter
--- OUTSIDE RECORDS SUMMARY | 2022-05-26 10:36 | XMS_ITS | Encounter Summary ---
:1955 Author Organization [facility] Address [address] [place] [address] Phone Care Team Providers Name Role Phone Provider, Outside Primary Care Provider Unavailable Reason for Visit Reason Comments Follow-up Encounter Details Date Type Department Care Team Description 09/03/2012 Office [place] [facility] [place] [facility] Pooja Krueger MD [address] [facility] [address] [place], [place] [id number] Neurogenic bladder [place] Omar Savage MD Research Only (Primary Dx) [address], [address] [place], [place] [address] Social History Tobacco Use Types [...] Comments Blood Pressure 112/64 09/03/2012 1:52 PM PHONOGRAPH NEEDLE TIP MAKER Pulse 68 09/03/2012 1:52 PM PHONOGRAPH NEEDLE TIP MAKER Temperature - - Respiratory Rate - - Oxygen Saturation - - Inhaled Oxygen Concentration - - Weight - - Height - - Body Mass Index - - documented in this encounter Progress Notes Omar Savage MD - 09/04/2012 8:32 PM CST [facility] [address] [facility] [place] [address] (fax) [facility] [id number] PATIENT: MICHEAL RENE : 1955 DATE: 09/03/2012 [...] MD Staff Physician Surgery Service Received in Oim Consultant: 09/04/2012 12:20 M: 09/04/2012 20:32 [facility]/ Voice ID: [id number] Document ID: [id number] OGRAPH NEEDLE TIP MAKER Omar Savage MD - 09/04/2012 12:19 PM CST This office note has been dictated. OGRAPH NEEDLE TIP MAKER documented in this encounter Plan of Treatment Not on filedocumented as of this encounter Procedures Procedure Name Priority Date/Time Associated Diagnosis Comme nts URINE CULTURE Routine 09/03/2012 2:22 PM Neurogenic bladder Re sults for this PHONOGRAPH NEEDLE TIP MAKER procedure are i n the results section. URINALYSIS,TOTAL Routine 09/03/2012 2:22 PM Neurogenic bladder Results for this PHONOGRAPH NEEDLE TIP MAKER procedure are i n the results section. documented in this encounter Results URINE CULTURE (09/03/2012 2:22 PM PHONOGRAPH NEEDLE TIP MAKER) [facility] Method Time Signature Urine Cult [facility] ? PROCEDURE: MB Urine Culture ?SOURCE: Urine Midstream ?COLLECTED: 09/03/2012 14:22 ? BODY SITE: ?FREE TEXT SOURCE: ?STARTED: 09/03/2012 15:35 ? FINAL REPORT Final Report Verified:09/05/2012 13:06 50,000 - 100,000 organisms/ml Mixed gram positive arthur. No further work-up. Specimen Anatomical Collection Method Collection Time Receive d Time (Source) Location / / Volume Laterality Urine Midstream. 09/03/2012 2:22 PM 09/03 3:34 (Urine) PHONOGRAPH NEEDLE TIP MAKER PM PHONOGRAPH NEEDLE TIP MAKER Omar Savage MD LAB MICROBIOLOGY Performing Organization Address City/State/ZIP Code Phon e Number [facility] [place] [address] (ABNORMAL) URINALYSIS, TOTAL (09/03/2012 2:22 PM PHONOGRAPH NEEDLE TIP MAKER) athologist Signature Color YELLOW YELLOW [facility] Appearance CLEAR CLEAR [facility] Urine Glucose NEGATIVE NEGATIVE [facility] Bili UA NEGATIVE NEGATIVE [facility] Comment: Confirmatory test not available . Ketones NEGATIVE NEGATIVE [facility] Specific Warren 1.016 1.003 - 1.030 [facility] Blood Ur NEGATIVE Neg-Trace [facility] PH Urine 6.5 5.0 - 7.0 [facility] Protein Ur NEGATIVE Neg-Trace [facility] Urobilinogen 1.0 0.2 - 1.0 EU/dL [facility] Nitrite Ur NEGATIVE NEGATIVE [facility] Leuk Est SMALL (A) Neg-Trace [facility] WBC Ur 6-20 (A) 0 - 5 perHPF [facility] RBC Ur 0-5 0 - 5 perHPF [facility] SQ EPITH 2+ 1+ [facility] Specimen Anatomical Collection Method Collection Time Receive d Time (Source) Location / / Volume Laterality Urine 09/03/2012 2:22 PM 3 2:51 PHONOGRAPH NEEDLE TIP MAKER PM PHONOGRAPH NEEDLE TIP MAKER Omar Savage MD LABORATORY Performing Organization Address City/State/ZIP Code Phon e Number [facility] [place] [address] documented in this encounter Visit Diagnoses Diagnosis Neurogenic bladder - Primary Neurogenic bladder, NOS documented in this encounter Care Teams Shear Assembler Relationship Specialty Start Date End Date Provider, Outside PCP - General 03/13/09 10/22/18 [place] [address] documented as of this encounter
--- OUTSIDE RECORDS SUMMARY | 2022-05-26 10:36 | XMS_ITS | Encounter Summary ---
:1955 Author Organization [facility] Address [address] [place] [address] Phone Care Team Providers Name Role Phone Provider, Outside Primary Care Provider Unavailable Encounter Details Date Type Department Care Team Description 10/21/2014 Telephone [facility] Omar Reyes MD [address] Research Only [place], [place] [address] Social History Tobacco Use Types [...] on filedocumented in this encounter Care Teams Jigmaker Relationship Specialty Start Date End Date Provider, Outside PCP - General 03/13/09 10/22/18 [place] [address] documented as of this encounter
--- OUTSIDE RECORDS SUMMARY | 2022-05-26 10:36 | XMS_ITS | Encounter Summary ---
:1955 Author Organization [facility] Address [address] [place] [address] Phone Care Team Providers Name Role Phone Provider, Outside Primary Care Provider Unavailable Encounter Details Date Type Department Care Team Description 09/07/2012 Letters(Tab) [facility] Omar Reyes MD [address] [place] [address], [address] Research Only [place], [place] [address] Social History Tobacco Use Types Packs/Day Years Used Date Smoking Tobacco: Former Cigarettes Cigars Smokeless Tobacco: Never Alcohol Use Standard Drinks/Week Comments Yes 3.3 (1 standard drink = 0.6 oz pure alco hol) once in while Sex Assigned at Date Recorded Not on file documented as of this encounter Progress Notes Omar Savage MD - 09/07/2012 7:45 AM CST [facility] [address] [place], [place] [address] September 07, 2012 TO: Micheal Fletcher [id number] [id number] RE:MICHEAL FLETCHER MR#:[id number] :1955 Dear Mr. Fletcher: From your recent Urology Clinic visit, your urine culture grew only mixed gram-positive organisms, which are not considered an infection. Please feel free to contact me for questions. Best wishes. Looking forward to seeing you at your next scheduled visit. Sincerely, Omar Savage MD Staff Physician Surgery Service Received in Independent Producer: 09/07/2012 07:32 M: 09/07/2012 07:45 cn CS/cn Voice ID: [id number] Document ID: [id number] cc:MICHEAL FLETCHER [address] [place] [address] HERIZATION AND HOUSING INSPECTOR documented in this encounter Plan of Treatment Not on filedocumented as of this encounter Visit Diagnoses Not on filedocumented in this encounter Care Teams Rock Loader Relationship Specialty Start Date End Date Provider, Outside PCP - General 03/13/09 10/22/18 [place] [address] documented as of this encounter
--- OUTSIDE RECORDS SUMMARY | 2022-05-26 10:36 | XMS_ITS | Encounter Summary ---
:1955 Author Organization [facility] Address [address] [facility] [place] [address] Phone Care Team Providers Name Role Phone Provider, Outside Primary Care Provider Unavailable Reason for Visit Reason Onset Date Comments Call Back 11/08/2010 Encounter Details Date Type Department Care Team Description 11/08/2010 Telephone [facility] Neurology Clini c Vickie Odell RN Call Back [address] [facility] [address] [address] [place], [place] [address] Social History Tobacco Use Types [...] that was to call [employer] [phone] to order supplieslast after last visit 11-01-10. [...] Outside Provider Comment:na Expects Return Call at: [phone] documented in this encounter Plan of Treatment Not on filedocumented as of this encounter Visit Diagnoses Not on filedocumented in this encounter Care Teams Carrier Associate Relationship Specialty Start Date End Date Provider, Outside PCP - General 03/13/09 10/22/18 [place] [address] documented as of this encounter
--- OUTSIDE RECORDS SUMMARY | 2022-05-26 10:36 | XMS_ITS | Encounter Summary ---
:1955 Author Organization [facility] Address [address] [place] [address] Phone Care Team Providers Name Role Phone Provider, Outside Primary Care Provider Unavailable Encounter Details Date Type Department Care Team Description 10/19/2010 Refill [facility] Urology Omar Savage MD [address] [facility], [address] Research Only [place], [place] [address] Social History Tobacco Use Types [...] Insurance: PCP: Outside Provider Comment: Please call [facility] pharmacy regarding getting an alternative for his medication Propantheline. Please call Ange Valdivia Return Call at: [phone] documented in this encounter Plan of Treatment Not on filedocumented as of this encounter Visit Diagnoses Diagnosis Neurogenic bladder - Primary Neurogenic bladder, NOS documented in this encounter Care Teams Chaperon Relationship Specialty Start Date End Date Provider, Outside PCP - General 03/13/09 10/22/18 [place] [address] documented as of this encounter
--- OUTSIDE RECORDS SUMMARY | 2022-05-26 10:36 | XMS_ITS | Encounter Summary ---
:1955 Author Organization [facility] Address [address] [place] [address] Phone Care Team Providers Name Role Phone Provider, Outside Primary Care Provider Unavailable Reason for Visit Reason Comments Other Encounter Details Date Type Department Care Team Description 01/17/2012 Telephone [facility] [place] [facility] Omar Reyes MD [address] [facility], [address] Research Only [place], [place] [address] Social History Tobacco Use Types [...] Outside Provider Comment: Expects Return Call at: [phone] documented in this encounter Plan of Treatment Not on filedocumented as of this encounter Visit Diagnoses Not on filedocumented in this encounter Care Teams Gas Welding Machine Operator Relationship Specialty Start Date End Date Provider, Outside PCP - General 03/13/09 10/22/18 [place] [address] documented as of this encounter
--- OUTSIDE RECORDS SUMMARY | 2022-05-26 10:36 | XMS_ITS | Encounter Summary ---
:1955 Author Organization [facility] Address [address] [place] [address] Phone Care Team Providers Name Role Phone Provider, Outside Primary Care Provider Unavailable Reason for Visit Reason Onset Date Comments Other 02/05/2016 Encounter Details Date Type Department Care Team Description 02/05/2016 Telephone [facility] Selena Garcia MD plan of care [facility] [address] [place] [address] [address] [facility], [address] [place] [address] [place], [place] [address] [phone] Social History Tobacco Use Types Packs/Day Years [...] on filedocumented in this encounter Care Teams Performance Architect Relationship Specialty Start Date End Date Provider, Outside PCP - General 03/13/09 10/22/18 [place] [address] documented as of this encounter
--- OUTSIDE RECORDS SUMMARY | 2022-05-26 10:36 | XMS_ITS | Encounter Summary ---
:1955 Author Organization [facility] Address [address] [place] [address] Phone Care Team Providers Name Role Phone Provider, Outside Primary Care Provider Unavailable Reason for Visit Reason Onset Date Comments Refill Request 10/22/2014 Encounter Details Date Type Department Care Team Description 10/22/2014 Refill [facility] Tree Vaughan, Refill Request [address] [facility], [address] [place], [place] [address] [address] [address] [place], [place] [id number] (Wo rk) Social History Tobacco Use Types [...] NOS documented in this encounter Care Teams Batch Mixer Relationship Specialty Start Date End Date Provider, Outside PCP - General 03/13/09 10/22/18 [place] [address] documented as of this encounter
--- OUTSIDE RECORDS SUMMARY | 2022-05-26 10:36 | XMS_ITS | Encounter Summary ---
:1955 Author Organization [facility] Address [address] [place] [address] Phone Care Team Providers Name Role Phone Provider, Outside Primary Care Provider Unavailable Reason for Visit Reason Comments Other Encounter Details Date Type Department Care Team Description 05/22/2016 Refill [facility] Monty Morales MD Other [address] [facility], [address] [address] 4 [place] [address] [phone] (Wo rk) Social History Tobacco Use Types [...] received in Urology Clinic from the pt's [facility], for propantheline and nitrofurantoin. Records [...] NOS documented in this encounter Care Teams Eye Specialist Relationship Specialty Start Date End Date Provider, Outside PCP - General 03/13/09 10/22/18 [place] [address] documented as of this encounter
--- OUTSIDE RECORDS SUMMARY | 2022-05-26 10:37 | XMS_ITS | Encounter Summary ---
:1955 Author Organization [facility] Address [address] [place] [address] Phone Care Team Providers Name Role Phone Unavailable Primary Care Provider Unavailable Reason for Visit Reason Onset Date Comments Medication Refill 10/16/2007 Encounter Details Date Type Department Care Team Description 10/16/2007 Refill [facility] Urology Omar Savage MD Medication Refill [address] [facility], [address] Research Only [place], [place] [address] Social History Tobacco Use Types [...]
--- OUTSIDE RECORDS SUMMARY | 2022-05-26 10:37 | XMS_ITS | Encounter Summary ---
:1955 Author Organization [facility] Address [address] [place] [address] Phone Care Team Providers Name Role Phone Provider, Outside Primary Care Provider Unavailable Reason for Visit Reason Onset Date Comments Question 09/22/2010 Encounter Details Date Type Department Care Team Description 09/22/2010 Telephone [facility] Blanca Marti, NILSA Question [address] [facility] [address] [address] [place], [place] [address] Social History Tobacco Use Types [...] discuss concerns with Dr. Loya. He agreed. LER STEERER Telephone Encounter - Blanca Marti RN - 09/22/2010 10:35 AM CST Pt calling in with frustrations Saw dr. loya who wants pt to see dr. bernstein again before coming back Dr. bernstein wants pt to be seen in [facility] Paperwork faxed to them and pt will call and schedule Pt having questions regarding his care of his wound after seeing dr. loya- felt his appt was so brief with dr. loya and is unsatisfied and would like to speak with nsg staff in surgery clinic Routed to surg clinic RNs Blanca Marti RN, 09/22/2010 10:35 AM LER STEERER documented in this encounter Plan of Treatment Not on filedocumented as of this encounter Visit Diagnoses Not on filedocumented in this encounter Care Teams Flight Crew Ordnanceman Relationship Specialty Start Date End Date Provider, Outside PCP - General 03/13/09 10/22/18 [place] [address] documented as of this encounter
--- OUTSIDE RECORDS SUMMARY | 2022-05-26 10:37 | XMS_ITS | Encounter Summary ---
:1955 Author Organization [facility] Address [address] [place] [address] Phone Care Team Providers Name Role Phone Provider, Outside Primary Care Provider Unavailable Reason for Visit Reason Onset Date Comments Supplies 09/17/2010 Encounter Details Date Type Department Care Team Description 09/17/2010 Telephone [facility] Alka Jade RN Supplies [address] [place] [address] [place], [place] [address] Social History Tobacco Use Types [...] for supply list to be faxed to [facility] Shwetha Martin @ [phone]. Pt was seen today by Dr Tavarez and wet to dry dressing was ordered. Pt has a f/u appt scheduled on 09/24/[address] Tavarez. MAN Telephone Encounter - Alka Jade RN - [...] Provider Comment: Expects Return Call at: pt [phone] MAN documented in this encounter Plan of Treatment Not on filedocumented as of this encounter Visit Diagnoses Not on filedocumented in this encounter Care Teams Grating Machine Operator Relationship Specialty Start Date End Date Provider, Outside PCP - General 03/13/09 10/22/18 [place] [address] documented as of this encounter
--- OUTSIDE RECORDS SUMMARY | 2022-05-26 10:37 | XMS_ITS | Encounter Summary ---
:1955 Author Organization [facility] Address [address] [place] [address] [place] [address] Phone Care Team Providers Name Role Phone Provider, Outside Primary Care Provider Unavailable Encounter Details Date Type Department Care Team Description 04/07/2010 Telephone [facility] Urology Omar Savage MD [address] [facility], [address] Research Only [place], [place] [address] Social History Tobacco Use Types [...] BALL AT 11:30. PLEASE CALL HIM AT [phone] Pt. Name: Khanh Rene : 1955 (home) Insurance: PCP: Outside Provider Comment: Expects Return Call at: documented in this encounter Plan of Treatment Not on filedocumented as of this encounter Visit Diagnoses Not on filedocumented in this encounter Care Teams Audit Lead Relationship Specialty Start Date End Date Provider, Outside PCP - General 03/13/09 10/22/18 [place] [address] documented as of this encounter
--- OUTSIDE RECORDS SUMMARY | 2022-05-26 10:37 | XMS_ITS | Encounter Summary ---
:1955 Author Organization [facility] Address [address] [place] [address] Phone Care Team Providers Name Role Phone Unavailable Primary Care Provider Unavailable Reason for Visit Reason Comments Follow-up Encounter Details Date Type Department Care Team Description 07/31/2007 Office Visit [facility] Phys Med/Rehab Sameera Frances Q uadriplegia (); Clinic Neurogenic Bowel; [address] [facility] Sp[facility] [address] Mail Code [address] [place], [place] [address] [place], [place] [phone] (Wo rk) Social History Tobacco Use Types Packs/Day Years Used Date Smoking Tobacco: Never Alcohol Use Standard Drinks/Week Comments Yes 3.3 (1 standard drink = 0.6 oz pure alco hol) Sex Assigned at Date Recorded Not on file documented as of this encounter Last Filed Vital Signs Vital Sign Reading Time Taken Comments Blood Pressure 91/64 07/31/2007 3:21 PM ECONOMIC DEVELOPER Pulse 81 07/31/2007 3:21 PM ECONOMIC DEVELOPER Temperature - - Respiratory Rate - - Oxygen Saturation - - Inhaled Oxygen Concentration - - Weight - - Height 6 cm (2.36) 07/31/2007 3:21 PM ECONOMIC DEVELOPER Body Mass Index - - documented in this encounter Progress Notes Sameera Frances MD - 08/15/2007 11:05 [place] [address] MEDREC#: [id number] PATIENT: MICHEAL RENE : 1955 DATE: 07/31/2007 [facility]UR[facility]Y [facility]INIC ADDENDUM: Again, under recommendations, I did talk to him that now he is 49 that he really should have an lunchroom mother who can coordinate his prophylactic care while he ages, in particular heart disease and prostate concerns. He is not interested and would just prefer to treat things as they come up, and declined my offers to arrange him with a Primary Care physician. Sameera Frances MD Staff Physician Physical Medicine and Rehabilitation Service Received in Sand Control Worker: 08/02/2007 15:01:18 (M: 08/06/2007 11:31:55/dd:st) CLR/dd:st Voice ID: [id number] Document ID: [id number] cc: OMIC DEVELOPER Sameera Frances MD - 08/15/2007 11:05 [place] [address] [facility]#: [id number] PATIENT: MICHEAL RENE : 1955 DATE: 07/31/2007 [...] father and a grandfather. He lives in [place] and just recently he has started to [...] He has just received a new manual Skin Scanie wheelchair with a J-cushion and he is [...] he likes because of stability. ASSESSMENT: C7 [place] Spinal [employer] (AUDREY) A chronic spinal [...] Physical Medicine and Rehabilitation Service Received in Sand Control Worker: 08/02/2007 14:58:39 (M: 08/06/2007 11:12:53/dd:st) CLR/dd:st Voice ID: [id number] Document ID: [id number] cc: OMIC DEVELOPER Sameera Frances MD - 08/02/2007 3:01 PM CST HPI ROS Physical Exam See my dictation for today. OMIC DEVELOPER documented in this encounter Plan of Treatment Not on filedocumented as of this encounter Visit Diagnoses Diagnosis Quadriplegia () Quadriplegia, unspecified Neurogenic bowel Spastic Abnormal involuntary movements documented in this encounter
--- OUTSIDE RECORDS SUMMARY | 2022-05-26 10:37 | XMS_ITS | Encounter Summary ---
:1955 Author Organization [facility]Note 3[facility] Address [address] [facility] [place] [address] Phone Care Team Providers Name Role Phone Provider, Outside Primary Care Provider Unavailable Encounter Details Date Type Department Care Team Description 09/17/2010 Hospital Encounter [facility] [place] [address] Kay Méndez MD [place], [place] [address] [facility] [phone] [place], [place] [id number] Social History Tobacco Use Types Packs/Day Years [...] () Results for this LAT HIP AM LEATHER BELT LOOP CUTTER procedure are i n the results section. documented in this encounter Results (ABNORMAL) XR PELVIS WITH BOTH LAT HIP (09/17/2010 10:28 AM LEATHER BELT LOOP CUTTER) Anatomical Region Laterality Modality Pelvis Computed Radiography Specimen (Source) Anatomical Collection Method Collection Time Re ceived Time Location / / Volume Laterality 09/17/2010 10:28 AM LEATHER BELT LOOP CUTTER Impressions 09/17/2010 10:35 AM LEATHER BELT LOOP CUTTER Impression: Severe osteoarthritis involving both hips with postsurgical fixation of a left hip fracture. There is no cortical irregularity to suggest osteomyelitis. This however lucency surrounding a fe moral IM nail. Three-phase bone scan may be beneficial to assess for infection surrounding the nail if clinically indicated. Reading Radiologist: Khanh Brunson Narrative 09/17/2010 10:35 AM LEATHER BELT LOOP CUTTER History: Rule out osteo. Comparison: None. Findings [...] unspecified documented in this encounter Care Teams Care Attendant Relationship Specialty Start Date End Date Provider, Outside PCP - General 03/13/09 10/22/18 [place] [address] documented as of this encounter
--- OUTSIDE RECORDS SUMMARY | 2022-05-26 10:37 | XMS_ITS | Encounter Summary ---
:1955 Author Organization [facility] Address [address] [facility] [address] [place] [address] Phone Care Team Providers Name Role Phone Provider, Outside Primary Care Provider Unavailable Reason for Visit Reason Comments Follow-up 13 months follow up visit [facility] Dr Frances HFA Monday PM&R Clinic for DX of C7 Spinal Cord Injury Encounter Details Date Type Department Care Team Description 04/20/2010 Office Visit [facility] Neuromuscular Sameera rFances Don plegia () Clinic MD Valery (Primary Dx) [address], [address] [place] [address] Mail [address] [place], [place] [address] [place], [place] [phone] Social History Tobacco Use Types Packs/Day Years [...] Frances for: 1) Wheelchair repair/s. Faxed to [facility] ([phone]) Referral to [facility]) Formal Wheelchair and wheeled mobility clinic faxedto scheduling to call Micheal to get scheduled ([phone]) Blanca Ziegler RN documented in this encounter Progress Notes Sameera Frances MD - 05/13/2010 3:35 PM CDT [facility] [address] [facility], [address] [place] [address] (fax) MEDREC#: [id number] PATIENT: MICHEAL FLETCHER : 1955 DATE: 04/20/2010 NEUROMUSCULAR PHYSICAL MEDICINE NOTE HISTORY OF PRESENT ILLNESS: Micheal Fletcher is a 55-year-old gentleman with a C7 [place] Spinal Cord Injury Association B spinal cord [...] be broken as far the spokes. The [id number]-hm-[id number] stability is poor. The back of the [...] his wheelchair and recommended he see the [facility] for a mapping of his buttocks and a more complete evaluation of his wheelchair. I do not think we need any changes in medications for spasticity. Sameera Frances MD Staff Physician Physical Medicine and Rehabilitation Service Received in Nuclear Weapons Specialist: 05/11/2010 20:55 M: 05/13/2010 10:09 ms CLR/ms Voice ID: [id number] Document ID: [id number] cc:[place] [address] Sameera Frances MD - 04/20/2010 11:01 AM [...] unspecified documented in this encounter Care Teams Sheet Mill Supervisor Relationship Specialty Start Date End Date Provider, Outside PCP - General 03/13/09 10/22/18 [place] [address] documented as of this encounter
--- OUTSIDE RECORDS SUMMARY | 2022-05-26 10:37 | XMS_ITS | Encounter Summary ---
:1955 Author Organization [facility] Address [address] [place], [place] [address]. [place] [address] Phone Care Team Providers Name Role Phone Provider, Outside Primary Care Provider Unavailable Encounter Details Date Type Department Care Team Description 05/13/2010 Hospital Encounter [facility] Ultrasound Omar Savage MD [address] Research Only [address] [place], [place] [address] Social History Tobacco Use Types [...] echoic urine. Procedure Note Walter Arcos V, BERENICEBS - 05/13/2010Forma tting of this note might [...] NOS documented in this encounter Care Teams Wharf Attendant Relationship Specialty Start Date End Date Provider, Outside PCP - General 03/13/09 10/22/18 [place] [address] documented as of this encounter
--- OUTSIDE RECORDS SUMMARY | 2022-05-26 10:37 | XMS_ITS | Encounter Summary ---
:1955 [address] [facility] Address [address] [place] [address] Phone Care Team Providers Name Role Phone Provider, Outside Primary Care Provider Unavailable Reason for Visit Reason Comments Follow-up Encounter Details Date Type Department Care Team Description 04/01/2010 Office Visit [facility] Urology Omar Savage, Neurogenic bladder; [address] [place] [address] Screening for prostate cancer [address] Research Only [place], [place] [address] Social History Tobacco Use Types Packs/Day Years [...] Savage MD - 04/05/2010 1:22 PM CDT [facility] [address] [facility], [address] [place] [address] (fax) [facility]#: [id number] PATIENT: MICHEAL FLETCHER : 1955 DATE: 04/01/2010 [...] MD Staff Physician Surgery Service Received in Punch Card Operator: 04/02/2010 14:55 M: 04/02/2010 22:48 kn CS/kn Voice ID: [id number] Document ID: [id number] Omar Savage MD - 04/02/2010 2:55 PM [...] NOS documented in this encounter Care Teams Functional Skills Tutor Relationship Specialty Start Date End Date Provider, Outside PCP - General 03/13/09 10/22/18 [place] [address] documented as of this encounter
--- OUTSIDE RECORDS SUMMARY | 2022-05-26 10:37 | XMS_ITS | Encounter Summary ---
:1955 Author Organization [facility] Address [address] [place] [address] Phone Care Team Providers Name Role Phone Pcp, No Primary Care Provider Unavailable Reason for Visit Reason Onset Date Comments Refill Request 01/28/2008 Encounter Details Date Type Department Care Team Description 01/28/2008 Refill [facility] Urology Omar Savage MD Refill Request [address] [facility], [address] Research Only [place], [place] [address] Social History Tobacco Use [...] on filedocumented in this encounter Care Teams Recycling Crew Supervisor Relationship Specialty Start Date End Date Pcp, No PCP - General 01/24/08 03/12/09 [facility] [place] [address] documented as of this encounter
--- OUTSIDE RECORDS SUMMARY | 2022-05-26 10:37 | XMS_ITS | Encounter Summary ---
:1955 Author Organization [facility] Address [address] [place] [address] Phone Care Team Providers Name Role Phone Unavailable Primary Care Provider Unavailable Encounter Details Date Type Department Care Team Description 09/29/2006 Letters(Tab) [facility] Urology Clinic Omar Savage MD [facility] [address] [facility] [address] [place], [place] [address] Social History Tobacco Use Types Packs/Day Years Used Date Smoking Tobacco: Never Assessed Sex Assigned at Date Recorded Not on file documented as of this encounter Progress Notes Omar Savage MD - 09/29/2006 4:34 PM CST [facility] [address] [place] [address] 09/29/2006 TO: Micheal Rene [address] [place], [place] [address] RE: MICHEAL RENE MR#: [id number] Dear Mr. Rene: From your recent Urology Clinic visit your prostate specific antigen value remains in a normal level and is 2.87. Best wishes and please feel free to contact us for questions. Sincerely, Omar Savage MD Received in Senior Patient Account Representative: 09/29/2006 12:33:54 (M: 09/29/2006 13:29:47 kms) CS/kms Voice ID: [id number] Document ID: [id number] cc: Micheal Rene [id number] [facility] [address] [place] SERVICES MANAGER documented in this encounter Plan of Treatment Not on filedocumented as of this encounter Visit Diagnoses Not on filedocumented in this encounter
--- OUTSIDE RECORDS SUMMARY | 2022-05-26 10:37 | XMS_ITS | Encounter Summary ---
:1955 Author Organization [facility] Address [address] [place] [address] Phone Care Team Providers Name Role Phone Pcp, No Primary Care Provider Unavailable Reason for Visit Reason Comments Follow-up med check-in Encounter Details Date Type Department Care Team Description 01/24/2008 Office Visit [facility] Urology Omar Savage, Neurogenic Bladder [address] [facility] (Primary Dx) [address] Research Only [place], [place] [address] Social History Tobacco Use Types Packs/Day Years Used Date Smoking Tobacco: Never Alcohol Use Standard Drinks/Week Comments Yes 3.3 (1 standard drink = 0.6 oz pure alco hol) Sex Assigned at Date Recorded Not on file documented as of this encounter Progress Notes Omar Savage MD - 01/29/2008 2:47 PM CDT [facility] [address] [facility], [address] [place] [address] (fax) MEDREC#: [id number] PATIENT: MICHEAL RENE : 1955 DATE: 01/24/2008 [...] this examination. Omar Savage MD Received in Tool Keeper: 01/24/2008 17:47:53 (M: 01/29/2008 08:19:42 aml) CS/aml Voice ID: [id number] Document ID: [id number] cc: Omar Savage MD - 01/24/2008 5:48 [...] eGFR, >60 mL/min/1.73 H[facility] LAB Non- m2 Greek Specimen Anatomical Collection Method Collection Time Receive d Time (Source) Location / / Volume Laterality Blood 01/24/2008 4:05 PM 8 4:29 CDT PM CDT Omar Savage MD LABORATORY Performing Organization Address City/[facility]/ZIP Code Phon e Number HFA LAB GLOMERULAR FILTRATION RATE B (01/24/2008 4:05 PM CDT) P athologist Signature eGFR, >60 mL/min/1.73 HFA LAB Greek m2 Comment: IDMS TRACEABLE CALIBRATION EFFECTIVE 08/16/2007 Specimen Anatomical Collection Method Collection Time Receive d Time (Source) Location / / Volume Laterality Blood 01/24/2008 4:05 PM 8 4:29 CDT PM CDT Omar Savage MD LABORATORY Performing Organization Address City/[facility]/ZIP Code Phon e Number HFA [...] NOS documented in this encounter Care Teams Video Journalist Relationship Specialty Start Date End Date Pcp, No PCP - General 01/24/08 03/12/09 [facility] [place] [address] documented as of this encounter
--- OUTSIDE RECORDS SUMMARY | 2022-05-26 10:37 | XMS_ITS | Encounter Summary ---
:1955 Author Organization [facility] Address [address] [place] [address] Phone Care Team Providers Name Role Phone Provider, Outside Primary Care Provider Unavailable Encounter Details Date Type Department Care Team Description 08/30/2010 Telephone [facility] Physical Therap y Reece Ziegler, [place] [address] [facility] [address] [place] [address] Social History Tobacco Use Types Packs/Day Years [...] 08/30/2010 11:12 AM To: Neurology Team Pool [facility] ----- Message ----- From: Nola Espino Sent: 08/27/2010 1:52 PM To: Neurology Intranet Developer Pool Patient: Khanh Rene : 1955 Called to schedule an appointment with provider:Dr. Frances No appointments available: with preferred provider.. Date and time requested: caryn Reason for visit: Pt has a pressure sore, and needs a FU appt Phone number for return call: [phone] Monday08/30/10. Khanh Rene will need to [facility] at [phone] to schedule a follow up visit with Dr Frances in her PM&R Clinic. We will call Khanh and inform him of this. Reece Ziegler RN ER CUTTER AND SHAPE CARVER documented in this encounter Plan of Treatment Not on filedocumented as of this encounter Visit Diagnoses Not on filedocumented in this encounter Care Teams Acidizer Water Well Relationship Specialty Start Date End Date Provider, Outside PCP - General 03/13/09 10/22/18 [place] [address] documented as of this encounter
--- OUTSIDE RECORDS SUMMARY | 2022-05-26 10:37 | XMS_ITS | Encounter Summary ---
:1955 Author Organization [facility] Address [address] [place] [address] Phone Care Team Providers Name Role Phone [...] on filedocumented in this encounter Care Teams House Designer Relationship Specialty Start Date End Date Provider, Outside PCP - General 03/13/09 10/22/18 [place] [address] documented as of this encounter
--- OUTSIDE RECORDS SUMMARY | 2022-05-26 10:37 | XMS_ITS | Encounter Summary ---
:1955 Author Organization [facility] Address [address] [place] [address] Phone Care Team Providers Name Role Phone Provider, Outside Primary Care Provider Unavailable Reason for Visit Reason Onset Date Comments Call Back 09/06/2010 Encounter Details Date Type Department Care Team Description 09/06/2010 Telephone [facility] [place] Clini [place] Vickie Odell RN Call Back [address] [facility] [address] [address] [address] [place], [place] [address] Social History Tobacco Use Types [...] states that he does not have a injection molding machine setter in [facility]. R: Patient quadriplegic states that he would like to speak directly with . Routing to TICAL RESEARCHER Telephone Encounter - Vickie Odell RN - 09/06/2010 1:59 PM CST Message copied by VICKIE ODELL on MonSep 06, 2010 1:59 PM ------ Message from: BRANDEE TALAMANTES Created: MonSep 06, 2010 1:52 PM 09/06/2010 1:53 PM Khanh Edgard @ADRIANA@ 1955 Questions regarding a referral for a pressure sore from Dr Frances. Best number to call patient back: [phone]. Best time of day to reach patient:anytime. TICAL RESEARCHER documented in this encounter Plan of Treatment Not on filedocumented as of this encounter Visit Diagnoses Not on filedocumented in this encounter Care Teams Olive Grader Relationship Specialty Start Date End Date Provider, Outside PCP - General 03/13/09 10/22/18 [place] [address] documented as of this encounter
--- OUTSIDE RECORDS SUMMARY | 2022-05-26 10:37 | XMS_ITS | Encounter Summary ---
:1955 Author Organization [facility] Address [address] [place] [address] Phone Care Team Providers Name Role Phone Provider, Outside Primary Care Provider Unavailable Encounter Details Date Type Department Care Team Description 09/13/2010 Notes/Trans [facility] ALS Clinic Sameera Frances MD [address] , [address] [facility] Professional Mail Code [address] [address] [place] [address] [phone] Social History Tobacco Use Types Packs/Day Years Used Date Smoking Tobacco: Never Alcohol Use Standard Drinks/Week Comments Yes 3.3 (1 standard drink = 0.6 oz pure alco hol) Sex Assigned at Date Recorded Not on file documented as of this encounter Progress Notes Sameera Frances MD - 09/16/2010 12:35 [place] [address] [facility]#: [id number] PATIENT: MICHEAL RENE : 1955 DATE: 09/13/2010 [...] Physical Medicine and Rehabilitation Service Received in Clamp Forklift Operator: 09/13/2010 15:26 M: 09/14/2010 09:05 [facility] HOMA/srikanth Voice ID: [id number] Document ID: [id number] LIANCE TESTER documented in this encounter Plan of Treatment Not on filedocumented as of this encounter Visit Diagnoses Not on filedocumented in this encounter Care Teams Project Management Specialist Relationship Specialty Start Date End Date Provider, Outside PCP - General 03/13/09 10/22/18 [place] [address] documented as of this encounter
--- OUTSIDE RECORDS SUMMARY | 2022-05-26 10:37 | XMS_ITS | Encounter Summary ---
:1955 Author Organization [facility] Address [address] [place] [address] Phone Care Team Providers Name Role Phone Provider, Outside Primary Care Provider Unavailable Reason for Visit Reason Onset Date Comments Supplies 09/20/2010 Encounter Details Date Type Department Care Team Description 09/20/2010 Telephone [facility] Alka Jade RN Supplies [address] [place] [address] [place], [place] [address] Social History Tobacco Use Types [...] - 09/20/2010 10:02 AM CST Verified that [facility] pharmacy received fax for supplies on 09/17/10. ELING MACHINE OPERATOR Telephone Encounter - Alka Jade RN [...] Insurance: PCP: Outside Provider Comment: [facility] [phone] Prescribed supplies Expects Return Call at: home see above ELING MACHINE OPERATOR documented in this encounter Plan of Treatment Not on filedocumented as of this encounter Visit Diagnoses Not on filedocumented in this encounter Care Teams Retail Management Keyholder Relationship Specialty Start Date End Date Provider, Outside PCP - General 03/13/09 10/22/18 [place] [address] documented as of this encounter
--- OUTSIDE RECORDS SUMMARY | 2022-05-26 10:37 | XMS_ITS | Encounter Summary ---
:1955 Author Organization [facility] Address [address] [place] [address] Phone Care Team Providers Name Role Phone Provider, Outside Primary Care Provider Unavailable Reason for Visit Reason Comments Referral Consult/Test/Treat (Routine) - Closed Specialty Diagnoses / Procedures Referred By Contact Refer red To Contact Plastic Surgery / Diagnoses Ulcer Sameera Frances, PLASTIC SURGERY [address] Mail [address] [place], [place] [address] Referral ID Status Reason Start Date Expiration Date Visits Requ ested Visits Authorized [id number] Closed 09/13/2010 09/13/2011 1 1 Encounter Details Date Type Department Care Team Description 09/17/2010 Office Visit [facility] [place] Bubba Loya () Sara Rasmussen MD (Primary Dx) [address] Mail [address] [place], [place] [address] [place], [place] [phone] Social History Tobacco Use Types Packs/Day Years Used Date Smoking Tobacco: Never Smokeless Tobacco: Never Alcohol Use Standard Drinks/Week Comments Yes 3.3 (1 standard drink = 0.6 oz pure alco hol) once in while Sex Assigned at Date Recorded Not on file documented as of this encounter Last Filed Vital Signs Vital Sign Reading Time Taken Comments Blood Pressure 112/77 09/17/2010 8:59 AM SPD MANAGER Pulse 98 09/17/2010 8:59 AM SPD MANAGER Temperature 35.9 ??C (96.7 ??F) 09/17/2010 8:59 AM SPD MANAGER Respiratory Rate - - Oxygen Saturation [...] P: As ordered by provider. Dr loya MANAGER Arnold Mejía MD - 09/17/2010 9:45 AM [...] documented. Bubba Loya MD, 09/17/2010 11:39 AM MANAGER documented in this encounter Plan of Treatment Not on filedocumented as of this encounter Procedures Procedure Name Priority Date/Time Associated Diagnosis Comme nts SED RATE (ESR) Routine 09/17/2010 9:44 AM Quadriplegia () Re sults for this SPD MANAGER procedure are i n the results section. CBC WITH PLATELET Routine 09/17/2010 9:44 AM Quadriplegia () Results for this SPD MANAGER procedure are i n the results section. documented in this encounter Results (ABNORMAL) XR PELVIS WITH BOTH LAT HIP (09/17/2010 10:28 AM SPD MANAGER) Anatomical Region Laterality Modality Pelvis Computed Radiography Specimen (Source) Anatomical Collection Method Collection Time Re ceived Time Location / / Volume Laterality 09/17/2010 10:28 AM SPD MANAGER Impressions 09/17/2010 10:35 AM SPD MANAGER Impression: Severe osteoarthritis involving both hips with postsurgical fixation of a left hip fracture. There is no cortical irregularity to suggest osteomyelitis. This however lucency surrounding a fe moral IM nail. Three-phase bone scan may be beneficial to assess for infection surrounding the nail if clinically indicated. Reading Radiologist: Khanh Brunson Narrative 09/17/2010 10:35 AM SPD MANAGER History: Rule out osteo. Comparison: None. Findings [...] (ABNORMAL) CBC WITH PLATELET (09/17/2010 9:44 AM SPD MANAGER) P athologist Signature WBC 5.3 4.0 - 10.0 [facility] k/cmm RBC 4.03 (L) 4.60 - 6.00 [facility] m/cmm Hgb 11.8 (L) 13.1 - 17.5 [facility] g/dL Hematocrit 36.4 (L) 40.0 - 51.0 [facility] % MCV 90.3 80.0 - [facility] 100.0 fL MCH 29.3 25.0 - 32.0 [facility] pg MCHC 32.4 31.0 - 36.0 [facility] g/dL RDW 12.8 11.5 - 14.5 [facility] % Plt 308 150 - 400 [facility] k/cmm MPV 8.0 6.5 - 12.5 [facility] fL NRBC .0 0.0 - 0.0 % [facility] Specimen Anatomical Collection Method Collection Time Receive d Time (Source) Location / / Volume Laterality Blood 09/17/2010 9:44 AM 1 9:44 SPD MANAGER AM SPD MANAGER Arnold Mejía MD LABORATORY Performing Organization Address City/[facility]/ZIP [facility] Phon e Number [facility] [place] [address] LAB (ABNORMAL) SED RATE (ESR) (09/17/2010 9:44 AM SPD MANAGER) P athologist Signature Sed Rate 51 (H) 0 - 10 mm/hr [facility] Specimen Anatomical Collection Method Collection Time Receive d Time (Source) Location / / Volume Laterality Blood 09/17/2010 9:44 AM 1 9:44 SPD MANAGER AM SPD MANAGER Arnold Mejía MD LABORATORY Performing Organization Address City/[facility] Phon e Number [facility] [place] [address] LAB documented in this encounter Visit Diagnoses Diagnosis Quadriplegia () - Primary Quadriplegia, unspecified Quadriplegia () Quadriplegia, unspecified documented in this encounter Care Teams Customer Account Specialist Relationship Specialty Start Date End Date Provider, Outside PCP - General 03/13/09 10/22/18 [place] [address] documented as of this encounter
--- OUTSIDE RECORDS SUMMARY | 2022-05-26 10:37 | XMS_ITS | Encounter Summary ---
:1955 Author Organization [facility] Address [address] [place] [address] Phone Care Team Providers Name Role Phone Provider, Outside Primary Care Provider Unavailable Reason for Visit Reason Comments Follow-up 19 months foolow up visit [facility] Dr Yvrose Mukherjee PM&R Clinic Dx C7 Spinal Cord Injury Encounter Details Date Type Department Care Team Description 03/13/2009 Office Visit HFA Neuromuscular Sameera Frances Don plegia () Clinic MD Valery (Primary Dx) [address], [address] [place] [address] Mail [address] [place], [place] [address] [place], [place] [phone] [address] Social History Tobacco Use Types Packs/Day [...] visit with Dr Frances A PM&R Clinic ([phone]) Rx/orders given to Micheal by Dr Frances for Wheelchair lumbar support and wheelchair repairs, bilateral arm rests, replace sling back Blanca Ziegler RN documented in this encounter Progress Notes Smaeera Frances MD - 03/26/2009 10:04 AM CDT [facility] [address] [facility] [place] [address] (fax) [facility] [id number] PATIENT: MICHEAL FLETCHER : 1955 DATE: 03/13/2009 NEUROMUSCULAR PHYSICAL MEDICINE NOTE HISTORY OF PRESENT ILLNESS: Micheal Fletcher is a 54-year-old gentleman with a C7 Citizen Of [place] Spinal Injury [employer] (AUDREY) B spinal cord [...] that eventually led to pacemaker placement at [facility]. He said that his angiogram did [...] discontinues that activity. He is using a [employer] wheelchair with a Joby cushion. It is [...] that complication. Sameera Frances MD Received in Respiratory Equipment Assistant: 03/20/2009 12:28:50 (M: 03/24/2009 03:22:10 golden) HOMA/jlb Voice ID: [id number] Document ID: [id number] cc: Abida Pulliam DO, [facility], [address] [place] [id number] Sameera Frances MD - 03/19/2009 6:44 PM CDT See dictation. documented in this encounter Nursing Notes 03/13/2009 8:00 AM CDT >> Blanca Ziegler RN MonMar 13, 2009 8:24 AM 19 months follow up visit with Dr Frances in Monday [facility] PM&R Clinic. DX of C7 Spinal Cord Injury, Quadriplegia, Neurogenic Bladder. B/P 87/60 pulse 105, states runs lower blood pressure. Self caths PRN during the day. Blanca Ziegler RN documented in this encounter Plan of Treatment Not on filedocumented as of this encounter Visit Diagnoses Diagnosis Quadriplegia () - Primary Quadriplegia, unspecified documented in this encounter Care Teams Linker Up Relationship Specialty Start Date End Date Provider, Outside PCP - General 03/13/09 10/22/18 [place] [address] documented as of this encounter
--- OUTSIDE RECORDS SUMMARY | 2022-05-26 10:37 | XMS_ITS | Encounter Summary ---
:1955 Author Organization [facility] Address [address] [place] [address] Phone Care Team Providers Name Role Phone Pcp, No Primary Care Provider Unavailable Reason for Visit Reason Onset Date Comments Question 02/20/2009 Called with question Encounter Details Date Type Department Care Team Description 02/20/2009 Telephone HFA Physical Medicin e Reece Ziegler, Question (Called with [facility] [address], [address] RN question) M[address] [facility] [place] [place] [address] [facility] [phone] [address] [place] [address] Social History Tobacco Use Types Packs/Day Years [...] Created: MonFeb 19, 2009 3:38 PM Regarding: [facility] PMR TELEPHONE MESSAGE Taken by: Natalie Painting , 02/19/2009 3:38 PM Direct to: Problem: questions Pt. Name: Khanh Rene : 1955 (home) Insurance: PCP: No PCP Comment: Expects Return Call at: [phone] Monday02/20/09 at 930am, returned Khanh's phone call, had to leave phone message, Reece Ziegler RN 02/26/09 again returned Khanh's phone call woth no answer. Khanh is scheduled to see Dr Frances on Monday03/13/09 at [facility] PM[facility]R Clinic. I has also given Dr Frances phone message from Khanh on his question on medical supply.Reece Ziegler RN documented in this encounter Plan of Treatment Not on filedocumented as of this encounter Visit Diagnoses Not on filedocumented in this encounter Care Teams Wrap Turner Relationship Specialty Start Date End Date Pcp, No PCP - General 01/24/08 03/12/09 [facility] [place] [address] documented as of this encounter
--- OUTSIDE RECORDS SUMMARY | 2022-05-26 10:37 | XMS_ITS | Encounter Summary ---
:1955 Author Organization [facility] Address [address] [place] [address] Phone Care Team Providers Name Role Phone Provider, Outside Primary Care Provider Unavailable Reason for Visit Reason Onset Date Comments Call Back 08/30/2010 Encounter Details Date Type Department Care Team Description 08/30/2010 Telephone HFA Multispecialty Varsha Knight RN Call Back [address], [address] Multispecialty Clinic [place], [place] [address] [phone] [place] [address] (Wo rk) Social History Tobacco Use Types Packs/Day Years Used Date Smoking Tobacco: Never Alcohol Use Standard Drinks/Week Comments Yes 3.3 (1 standard drink = 0.6 oz pure alco hol) Sex Assigned at Date Recorded Not on file documented as of this encounter Miscellaneous Notes Telephone Encounter - Varsha Knight RN - 08/30/2010 4:23 PM SENIOR IT ASSISTANT Spoke with patient & let him know that Blanca Ziegler was working on this (see her telephone encounter from earlier today). Pt states he is using Duoderm for this pressure sore but thinks it may need other intervention. Let him know our office would be in touch soon regarding this appt. 08/31/10 830 AM. I called and talked to Khanh ([phone]) he is a Dr Frances Quadriplegia patient and he does have a open sore on his bottom, he did call scheduling at [facility] Neurology ([phone])and could not get in to see Dr Frances in her PM&R Clinic until September. I informed Khanh that I will route this phone message to Dr Frances plus I will page her to try to talk to her about Khanh. Blanca Ziegler RN OR IT ASSISTANT documented in this encounter Plan of Treatment Not on filedocumented as of this encounter Visit Diagnoses Not on filedocumented in this encounter Care Teams Caser In Relationship Specialty Start Date End Date Provider, Outside PCP - General 03/13/09 10/22/18 [place] [address] documented as of this encounter
--- OUTSIDE RECORDS SUMMARY | 2022-05-26 10:37 | XMS_ITS | Encounter Summary ---
:1955 Author Organization [facility] Address [address] [place] [address] Phone Care Team Providers Name Role Phone [...] 09/23/2010 12:00 AM CSTAssociated Order(s): INFORMATION DISCLOSURE GER INTERVENTIONAL documented in this encounter Plan of Treatment Not on filedocumented as of this encounter Procedures Procedure Name Priority Date/Time Associated Comments Diagnosis INFORMATION 09/23/2010 5:22 PM Results f or this DISCLOSURE MANAGER INTERVENTIONAL procedure are i n the results section. documented in this encounter Results INFORMATION DISCLOSURE (09/23/2010 5:22 PM MANAGER INTERVENTIONAL) Narrative 09/23/2010 5:22 PM MANAGER INTERVENTIONAL Procedure Note Unknown, Provider - 09/23/2010 12:00 AM CST Provider Unknown SCANNED CONSENTS documented in this encounter Visit Diagnoses Not on filedocumented in this encounter Care Teams Office Asst Relationship Specialty Start Date End Date Provider, Outside PCP - General 03/13/09 10/22/18 [place] [address] documented as of this encounter
--- OUTSIDE RECORDS SUMMARY | 2022-05-26 10:37 | XMS_ITS | Encounter Summary ---
:1955 Author Organization [facility] Address [address] [address] Phone Care Team Providers Name Role Phone Provider, Outside Primary Care Provider Unavailable Reason for Referral Consult/Test/Treat (Routine) - Closed Specialty Diagnoses / Procedures Referred By Contact Refer red To Contact Plastic Surgery / Diagnoses Ulcer Sameera Frances, PLASTIC SURGERY MD [address] Mail Code [address] [place], [place] [address] Referral ID Status Reason Start Date Expiration Date Visits Requ ested Visits Authorized [id number] Closed 09/13/2010 09/13/2011 1 1 DEVELOPER Encounter Details Date Type Department Care Team Description 09/13/2010 Orders Only [facility]hab Sameera Frances U lcer () (Primary Clinic MD Dx) [address] [place], [place] [address] [place], [place] [phone] (Wo rk) Social History Tobacco Use Types [...] site documented in this encounter Care Teams Giver Relationship Specialty Start Date End Date Provider, Outside PCP - General 03/13/09 10/22/18 [place] [address] documented as of this encounter
--- OUTSIDE RECORDS SUMMARY | 2022-05-26 10:37 | XMS_ITS | Encounter Summary ---
:1955 Author Organization [facility] Address [address] [place] [address] Phone Care Team Providers Name Role Phone Pcp, No Primary Care Provider Unavailable Reason for Visit Reason Onset Date Comments Durable Medical Equipment 02/17/2009 Question about reordering equipment Check/Request Encounter Details Date Type Department Care Team Description 02/17/2009 Telephone HFA Physical Medicin e Reece Ziegler, Durable Medical [address] [facility] RN Equipment Check/Request M50 Multispecialty (Question about [place], [place] [address] Clinic reordering equipment) [phone] [place] [address] Social History Tobacco Use Types Packs/Day Years [...] refill of dourdrem?? Spelling? Pharmacy # is [phone] Pt. Name: Khanh Rene : 1955 (home) Insurance: PCP: No PCP Comment: Expects Return Call at: [phone] or cell [phone] Monday02/17/09 Copy of this phone message given to Dr Frances and she will call patient to check on equipment order needed. Reece Ziegler RN documented in this encounter Plan of Treatment Not on filedocumented as of this encounter Visit Diagnoses Not on filedocumented in this encounter Care Teams Nuclear Operator Relationship Specialty Start Date End Date Pcp, No PCP - General 01/24/08 03/12/09 [facility] [place] [address] documented as of this encounter
--- OUTSIDE RECORDS SUMMARY | 2022-05-26 10:37 | XMS_ITS | Encounter Summary ---
:1955 Author Organization [facility] Address [address] [place] [address] Phone Care Team Providers Name Role Phone Pcp, No Primary Care Provider Unavailable Reason for Visit Reason Onset Date Comments Refill Request 09/02/2008 Encounter Details Date Type Department Care Team Description 09/02/2008 Refill HFA Urology Omar Savage MD Refill Request [address] [facility], [address] Research Only [place], [place] [address] Social History Tobacco Use Types Packs/Day Years Used Date Smoking Tobacco: Never Alcohol Use Standard Drinks/Week Comments Yes 3.3 (1 standard drink = 0.6 oz pure alco hol) Sex Assigned at Date Recorded Not on file documented as of this encounter Plan of Treatment Not on filedocumented as of this encounter Visit Diagnoses Not on filedocumented in this encounter Care Teams Conference Producer Relationship Specialty Start Date End Date Pcp, No PCP - General 01/24/08 03/12/09 [facility] [place] [address] documented as of this encounter
--- OUTSIDE RECORDS SUMMARY | 2022-05-26 10:37 | XMS_ITS | Encounter Summary ---
:1955 Author Organization [facility] Address [address] [place] [address] Phone Care Team Providers Name Role Phone Pcp, No Primary Care Provider Unavailable Reason for Visit Reason Comments Follow-up neurogenic bladder Encounter Details Date Type Department Care Team Description 01/29/2009 Office Visit HFA Urology Omar Savage, Neurogenic Bladder [address] [place] [address] (Primary Dx) [address] Only [place], [place] [address] Social History Tobacco Use Types Packs/Day Years Used Date Smoking Tobacco: Never Alcohol Use Standard Drinks/Week Comments Yes 3.3 (1 standard drink = 0.6 oz pure alco hol) Sex Assigned at Date Recorded Not on file documented as of this encounter Progress Notes Omar Savage MD - 02/02/2009 12:28 PM CDT [facility] [address] [facility], [address] [place] [address] (fax) MEDREC#: [id number] PATIENT: MICHEAL FLETCHER : 1955 DATE: 01/29/2009 [...] pinning. The pinning was performed at the [facility]. His pacemaker was placed at the [facility]. I will request laboratory values from both [...] 20 minutes. Omar Savage MD Received in Office Messenger Helper: 01/29/2009 18:41:26 (M: 02/02/2009 08:06:12 sharmila) CS/sjv Voice ID: [id number] Document ID: [id number] cc: Omar Savage MD - 01/29/2009 6:41 [...] NOS documented in this encounter Care Teams Cone Examiner Relationship Specialty Start Date End Date Pcp, No PCP - General 01/24/08 03/12/09 [place] [address] documented as of this encounter
--- OUTSIDE RECORDS SUMMARY | 2022-05-26 10:37 | XMS_ITS | Encounter Summary ---
:1955 Author Organization [facility] Address [address] [address] Phone Care Team Providers Name Role Phone Pcp, No Primary Care Provider Unavailable Encounter Details Date Type Department Care Team Description 01/29/2008 Letters(Tab) [facility] Omar Savage MD [facility] [address] [place] [address] [address] [place], [place] [address] Social History Tobacco Use Types Packs/Day Years Used Date Smoking Tobacco: Never Alcohol Use Standard Drinks/Week Comments Yes 3.3 (1 standard drink = 0.6 oz pure alco hol) Sex Assigned at Date Recorded Not on file documented as of this encounter Progress Notes Omar Savage MD - 01/30/2008 7:23 AM CDT [facility] [address] [place] [address] 01/29/2008 TO: Micheal Rene [address] [place] [address] RE: MICHEAL RENE MR#: [id number] Dear Mr. Rene: From your recent Urology Clinic visit, your laboratory values remain stable. Your serum creatinine remains low because of your low body mass. It is 0.29. Your prostate-specific antigen blood test is 2.38, with normal up to 4. We await your return visit in one year. Best wishes. Sincerely, Omar Savage MD Received in Tufter: 01/29/2008 16:28:05 (M: 01/30/2008 02:45:25 jlb) CS/golden Voice ID: [id number] Document ID: [id number] cc: Micheal Rene documented in this encounter Plan of Treatment Not on filedocumented as of this encounter Visit Diagnoses Not on filedocumented in this encounter Care Teams Peanut Sorter Relationship Specialty Start Date End Date Pcp, No PCP - General 01/24/08 03/12/09 [facility] [place] [address] documented as of this encounter
--- OUTSIDE RECORDS SUMMARY | 2022-05-26 10:37 | XMS_ITS | Encounter Summary ---
:1955 Author Organization [facility] Address [address] [place] [address] Phone Care Team Providers Name Role Phone Provider, Outside Primary Care Provider Unavailable Reason for Visit Reason Onset Date Comments Refill Request 04/30/2010 Encounter Details Date Type Department Care Team Description 04/30/2010 Refill HFA Urology Omra Savage MD Refill Request [address] [facility], [address] Research [place], [place] [address] Social History Tobacco Use Types [...] NOS documented in this encounter Care Teams Medtronics Technician Relationship Specialty Start Date End Date Provider, Outside PCP - General 03/13/09 10/22/18 [place] [address] documented as of this encounter
--- OUTSIDE RECORDS SUMMARY | 2022-05-26 10:37 | XMS_ITS | Encounter Summary ---
:1955 Author Organization [facility] Address [address] [place] [address] Phone Care Team Providers Name Role Phone Provider, Outside Primary Care Provider Unavailable Reason for Visit Reason Onset Date Comments Refill Request 10/21/2009 Encounter Details Date Type Department Care Team Description 10/21/2009 Refill HFA Urology Omar Savage MD Refill Request [address] [facility], [address] Research [place], [place] [address] Social History Tobacco Use Types [...] NOS documented in this encounter Care Teams Mastercam Programmer Relationship Specialty Start Date End Date Provider, Outside PCP - General 03/13/09 10/22/18 [place] [address] documented as of this encounter
--- OUTSIDE RECORDS SUMMARY | 2022-05-26 10:37 | XMS_ITS | Encounter Summary ---
:1955 Author Organization [facility] Address [address] [place] [address] Phone Care Team Providers Name Role Phone [...]
--- OUTSIDE RECORDS SUMMARY | 2022-05-26 10:37 | XMS_ITS | Encounter Summary ---
:1955 Author Organization [facility] Address [address] [place] [address] Phone Care Team Providers Name Role Phone Unavailable Primary Care Provider Unavailable Encounter Details Date Type Department Care Team Description 10/22/2007 Abstract HFA Multispecialty Abstract, Provider [address] [facility] [address] [place], [place] [address] Social History Tobacco Use Types [...]
--- OUTSIDE RECORDS SUMMARY | 2022-05-26 10:37 | XMS_ITS | Encounter Summary ---
:1955 Author Organization [facility] Address [address] [place] [address] Phone Care Team Providers Name Role Phone Provider, Outside Primary Care Provider Unavailable Encounter Details Date Type Department Care Team Description 05/17/2010 Letters(Tab) [facility] Urology Omar Savage MD [address] [place] [address], [address] Research Only [place] [address] Social History Tobacco Use Types Packs/Day Years Used Date Smoking Tobacco: Never Alcohol Use Standard Drinks/Week Comments Yes 3.3 (1 standard drink = 0.6 oz pure alco hol) Sex Assigned at Date Recorded Not on file documented as of this encounter Progress Notes Omar Savage MD - 05/18/2010 6:15 AM CDT [facility] [address] [place] [address] May 17, 2010 TO: Micheal Reen [address] [facility] [place] [address] RE:MICHEAL RENE MR#:[id number] :1955 Dear Mr. Rene: From your recent urology clinic visit, the renal ultrasound that was performed does not show any evidence of kidney abnormalities. There is no dilation, no hydronephrosis or stones noted. Best wishes. Look forward to seeing you in 1 year. Please feel free to contact me for questions. Sincerely, Omar Savage MD Staff Physician Surgery Service Received in Committee Member: 05/17/2010 21:18 M: 05/18/2010 03:15 javon CS/javon Voice ID: [id number] Document ID: [id number] cc:Micheal Rene [id number] MICHELLE Espino [address] documented in this encounter Plan of Treatment Not on filedocumented as of this encounter Visit Diagnoses Not on filedocumented in this encounter Care Teams Personal Injury Legal Assistant Relationship Specialty Start Date End Date Provider, Outside PCP - General 03/13/09 10/22/18 [place] [address] documented as of this encounter
--- OUTSIDE RECORDS SUMMARY | 2022-05-26 10:38 | XMS_ITS | Encounter Summary ---
:1955 Author Organization [facility] Address [address] [place] [address]. [place] [address] Phone Care Team Providers Name Role Phone Unavailable Primary Care Provider Unavailable Encounter Details Date Type Department Care Team Description 10/12/2001 Orders Only [facility] Ultrasound [address] [place], [place] [address] Social History Tobacco Use Types Packs/Day Years Used Date Smoking Tobacco: Never Assessed Sex Assigned at Date Recorded Not on file documented as of this encounter Plan of Treatment Not on filedocumented as of this encounter Procedures Procedure Name Priority Date/Time Associated Diagnosis Comme nts ULT KIDNEYS Routine 10/12/2001 11:22 AM Results for this COMPLETE PIPE COVERER HELPER procedure are i n the results section. documented in this encounter Results ULT KIDNEY COMPLETE (10/12/2001 11:22 AM PIPE COVERER HELPER) Anatomical Region Laterality Modality Abdomen Ultrasound Specimen (Source) Anatomical Collection Method Collection Time Re ceived Time Location / / Volume Laterality 10/12/2001 11:22 AM PIPE COVERER HELPER Impressions 10/15/2001 4:06 PM PIPE COVERER HELPER : 1. ??NO RENAL STONES IDENTIFIED. 2. ??MILD CORTICAL THINNING BILATERALLY. ??THIS MAY INDICATE MEDICAL RENAL DISEASE. I have personally reviewed the image(s) and initial interpretation, and I agree with the findings. ASI END: RELEASE RESULTS: (Y) END RESULT: IMPRESSION Narrative 10/15/2001 4:06 PM PIPE COVERER HELPER Final Report EXAM: ?? RENAL US: M[place] AP[place]HE KIDNEYS ?- ??10/12/2001 11:22AM SUSPECTED PATHOLOGY: SYMPTOMS [...] the original. Final Report EXAM: RENAL US: MES[place]ERO APACHE KIDNEYS - 002 11:22AM SUSPECTED PATHOLOGY: SYMPTOMS [...]
--- OUTSIDE RECORDS SUMMARY | 2022-05-26 10:38 | XMS_ITS | Encounter Summary ---
:1955 Author Organization [facility] Address [address] [place] [address] Phone Care Team Providers Name Role Phone Unavailable Primary Care Provider Unavailable Encounter Details Date Type Department Care Team Description 07/03/1995 Orders Only [facility] [place]RAY [address] [place], [place] [address] Social History Tobacco Use Types Packs/Day Years Used Date Smoking Tobacco: Never Assessed Sex Assigned at Date Recorded Not on file documented as of this encounter Plan of Treatment Not on filedocumented as of this encounter Procedures Procedure Name Priority Date/Time Associated Diagnosis Comme nts XR COCCYX AP & LAT Routine 07/03/1995 2:10 PM Res ults for this CPO procedure are i n the results section. documented in this encounter Results XR COCCYX AP & LAT (07/03/1995 2:10 PM CPO) Anatomical Region Laterality Modality Lumbar Spine Computed Radiography Specimen (Source) Anatomical Collection Method Collection Time Re ceived Time Location / / Volume Laterality 07/03/1995 2:10 PM CPO Impressions 07/05/1995 12:33 PM CPO : ??Please see Sacrum report dated 07/03/95 1410. ASI END: RELEASE RESULTS: (Y) END RESULT: IMPRESSION Narrative 07/05/1995 12:33 PM CPO Final Report EXAM: ?? COCCYX AP & [...]
--- OUTSIDE RECORDS SUMMARY | 2022-05-26 10:38 | XMS_ITS | Encounter Summary ---
:1955 Author Organization [facility] Address [address] [place] [address] Phone Care Team Providers Name Role Phone [...] 09/19/2001 5:05 PM Re sults for this DIRECTORY CLERK procedure are i n the results section. PSA Routine 09/19/2001 5:05 PM Results f or this DIAGNOSTIC(PROSTATE DIRECTORY CLERK procedur e are in SPE AG the results section. CREATININE, SERUM Routine 09/19/2001 5:05 PM Resu lts for this DIRECTORY CLERK procedure are i n the results section. documented in this encounter Results PSA DIAGNOSTIC(PROSTATE SPE AG (09/19/2001 5:05 PM DIRECTORY CLERK) athologist Signature PSA Diagnostic 0.5 0.00 - 4.00 H[facility] LAB NG/ML Specimen Anatomical Collection Method Collection Time Receive d Time (Source) Location / / Volume Laterality Blood 09/19/2001 5:05 PM 2 5:26 DIRECTORY CLERK PM DIRECTORY CLERK Omar Savage MD LABORATORY Performing Organization Address City/State/ZIP Code Phon e Number HFA LAB BUN (UREA NITROGEN) (09/19/2001 5:05 PM DIRECTORY CLERK) athologist Signature BUN 13 5 - 25 MG/DL H[facility] LAB Specimen Anatomical Collection Method Collection Time Receive d Time (Source) Location / / Volume Laterality Blood 09/19/2001 5:05 PM 2 5:26 DIRECTORY CLERK PM DIRECTORY CLERK Omar Savage MD LABORATORY Performing Organization Address City/State/ZIP Code Phon e Number HFA LAB CREATININE, SERUM (09/19/2001 5:05 PM DIRECTORY CLERK) P athologist Signature Creatinine 0.5 0.5 - 1.4 [facility] LAB MG/DL Specimen Anatomical Collection Method Collection Time Receive d Time (Source) Location / / Volume Laterality Blood 09/19/2001 5:05 PM 2 5:26 DIRECTORY CLERK PM DIRECTORY CLERK Omar Savage MD LABORATORY Performing Organization Address City/State/ZIP Code Phon e Number HFA LAB documented in this encounter Visit Diagnoses Not on filedocumented in this encounter
--- OUTSIDE RECORDS SUMMARY | 2022-05-26 10:38 | XMS_ITS | Encounter Summary ---
:1955 Author Organization [facility] Address [address] [place] [address] Phone Care Team Providers Name Role Phone Unavailable Primary Care Provider Unavailable Encounter Details Date Type Department Care Team Description 09/02/2005 Orders Only [facility] [place] [address] [place], [place] [address] Social History Tobacco Use Types Packs/Day Years Used Date Smoking Tobacco: Never Assessed Sex Assigned at Date Recorded Not on file documented as of this encounter Plan of Treatment Not on filedocumented as of this encounter Procedures Procedure Name Priority Date/Time Associated Diagnosis Comme nts ULT KIDNEYS Routine 09/02/2005 3:16 PM Results f or this COMPLETE TOBACCO BALER procedure are i n the results section. XR CHEST 2 VIEWS PA Routine 09/02/2005 3:03 PM Re sults for this + LAT* TOBACCO BALER procedure are i n the results section. documented in this encounter Results ULT KIDNEY COMPLETE (09/02/2005 3:16 PM TOBACCO BALER) Anatomical Region Laterality Modality Abdomen Ultrasound Specimen (Source) Anatomical Collection Method Collection Time Re ceived Time Location / / Volume Laterality 09/02/2005 3:16 PM TOBACCO BALER Impressions 09/05/2005 9:17 AM TOBACCO BALER : ??NO FOCAL MASS, STONE, OR HYDRONEPHROSIS IDENTIFIED WITHIN EITHER KIDNEY. I have personally reviewed the image(s) and initial interpretation, and I agree with the findings. . . Read Date: Sep 02 2005 ??4:12P BENEDICT AU M.D. - STAFF RADIOLOGIST FABIOLA AVALOS M.D. - RESIDENT RADIOLOGIST RELEASE RESULTS: (Y) ASI END: END RESULT: DATE DICTATED: () SCHOOL LUNCH MANAGER: ( ) IMPRESSION Narrative 09/05/2005 9:17 AM TOBACCO BALER FABIOLA AVALOS M.D. - RESIDENT RADIOLOGIST Final Report EXAM: ?? RENAL US: SITKA KIDNEYS ?? 04/2006 15:16 HISTORY: ??Neurogenic bladder. [...] RESIDENT RADIOLOGIST Final Report EXAM: RENAL US: SITKA KIDNEYS 15:16 HISTORY: Neurogenic bladder. COMPARISON: 10/12/01. [...] ASI END: END RESULT: DATE DICTATED: () SCHOOL LUNCH MANAGER: ( ) IMPRESSION Omar Savage MD ULT XR CHEST 2 VIEWS PA & LAT (09/02/2005 3:03 PM TOBACCO BALER) Anatomical Region Laterality Modality Chest Digital Radiography Specimen (Source) Anatomical Collection Method Collection Time Re ceived Time Location / / Volume Laterality 09/02/2005 3:03 PM TOBACCO BALER Impressions 09/02/2005 3:58 PM TOBACCO BALER : ??NO ACUTE PULMONARY INFILTRATE. ?? . . Read Date: Sep 02 2005 ??3:34P VIANCA COHEN M.D. - STAFF RADIOLOGIST - RESIDENT RADIOLOGIST RELEASE RESULTS: (Y) ASI END: END RESULT: DATE DICTATED: () SCHOOL LUNCH MANAGER: ( ) IMPRESSION Narrative 09/02/2005 3:58 PM TOBACCO BALER - RESIDENT RADIOLOGIST Final Report EXAM: ?? [...] ASI END: END RESULT: DATE DICTATED: () SCHOOL LUNCH MANAGER: ( ) IMPRESSION Omar Savage MD X-RAY documented in this encounter Visit Diagnoses Not on filedocumented in this encounter
--- OUTSIDE RECORDS SUMMARY | 2022-05-26 10:38 | XMS_ITS | Encounter Summary ---
:1955 Author Organization [facility] Address [address] [place] [address] Phone Care Team Providers Name Role Phone Unavailable Primary Care Provider Unavailable Encounter Details Date Type Department Care Team Description 05/15/2003 EWeb History [facility] EMG Sameera Frances MD [address] [facility] [address] [place], [place] [address] Mail Code [address] [place] [address] (Wo rk) Social History Tobacco Use Types Packs/Day Years Used Date Smoking Tobacco: Never Assessed Sex Assigned at Date Recorded Not on file documented as of this encounter Plan of Treatment Not on filedocumented as of this encounter Visit Diagnoses Not on filedocumented in this encounter
--- OUTSIDE RECORDS SUMMARY | 2022-05-26 10:38 | XMS_ITS | Encounter Summary ---
:1955 Author Organization [facility] Address [address] [place] [address] Phone Care Team Providers Name Role Phone [...] 08/18/2005 12:00 AM R esults for this CUPOLA MELTER HELPER procedure are i n the results section. PSA-SCREENING(MT) Routine 08/18/2005 12:00 AM Res ults for this CUPOLA MELTER HELPER procedure are i n the results section. CREATININE, SERUM Routine 08/18/2005 12:00 AM Res ults for this CUPOLA MELTER HELPER procedure are i n the results section. documented in this encounter Results PSA-SCREENING(MT) (08/18/2005 12:00 AM CUPOLA MELTER HELPER) athologist Signature PSA Screen 2.6 0.00 - 4.00 HFA LAB NG/ML Specimen (Source) Anatomical Collection Method Collection Time Re ceived Time Location / / Volume Laterality Blood 08/18/2005 08/18/2005 5:07 PM CUPOLA MELTER HELPER Omar Savage MD LABORATORY Performing Organization Address City/State/ZIP Code Phon e Number HFA LAB BUN (UREA NITROGEN) (08/18/2005 12:00 AM CUPOLA MELTER HELPER) athologist Signature BUN 9 5 - 25 MG/DL HFA LAB Specimen (Source) Anatomical Collection Method Collection Time Re ceived Time Location / / Volume Laterality Blood 08/18/2005 08/18/2005 5:07 PM CUPOLA MELTER HELPER Omar Savage MD LABORATORY Performing Organization Address City/State/ZIP Code Phon e Number HFA LAB CREATININE, SERUM (08/18/2005 12:00 AM CUPOLA MELTER HELPER) P athologist Signature Creatinine <0.5 0.5 - 1.4 HFA LAB MG/DL Comment: REPEATED Specimen (Source) Anatomical Collection Method Collection Time Re ceived Time Location / / Volume Laterality Blood 08/18/2005 08/18/2005 5:07 PM CUPOLA MELTER HELPER Omar Savage MD LABORATORY Performing Organization Address City/State/ZIP Code Phon e Number HFA LAB documented in this encounter Visit Diagnoses Not on filedocumented in this encounter
--- OUTSIDE RECORDS SUMMARY | 2022-05-26 10:38 | XMS_ITS | Encounter Summary ---
:1955 Author Organization [facility] Address [address] [place] [address]. [place] [address] Phone Care Team Providers Name Role Phone Unavailable Primary Care Provider Unavailable Encounter Details Date Type Department Care Team Description 09/02/2005 Orders Only [facility] [place] [address] [place], [place] [address] Social History Tobacco Use Types Packs/Day Years Used Date Smoking Tobacco: Never Assessed Sex Assigned at Date Recorded Not on file documented as of this encounter Plan of Treatment Not on filedocumented as of this encounter Procedures Procedure Name Priority Date/Time Associated Diagnosis Comme nts ULT KIDNEYS Routine 09/02/2005 3:16 PM Results f or this COMPLETE DRAFTER COMMERCIAL procedure are i n the results section. documented in this encounter Results ULT KIDNEY COMPLETE (09/02/2005 3:16 PM DRAFTER COMMERCIAL) Anatomical Region Laterality Modality Abdomen Ultrasound Specimen (Source) Anatomical Collection Method Collection Time Re ceived Time Location / / Volume Laterality 09/02/2005 3:16 PM DRAFTER COMMERCIAL Impressions 09/05/2005 9:17 AM DRAFTER COMMERCIAL : ??NO FOCAL MASS, STONE, OR HYDRONEPHROSIS IDENTIFIED WITHIN EITHER KIDNEY. I have personally reviewed the image(s) and initial interpretation, and I agree with the findings. . . Read Date: Sep 02 2005 ??4:12P BENEDICT AU M.D. - STAFF RADIOLOGIST FABIOLA AVALOS M.D. - RESIDENT RADIOLOGIST RELEASE RESULTS: (Y) ASI END: END RESULT: DATE DICTATED: () CAMP RECREATION SPECIALIST: ( ) IMPRESSION Narrative 09/05/2005 9:17 AM DRAFTER COMMERCIAL FABIOLA AVALOS M.D. - RESIDENT RADIOLOGIST Final Report EXAM: ?? RENAL US: MODOC KIDNEYS ?? 04/2006 15:16 HISTORY: ??Neurogenic bladder. [...] RESIDENT RADIOLOGIST Final Report EXAM: RENAL US: MODOC KIDNEYS 15:16 HISTORY: Neurogenic bladder. COMPARISON: 10/12/01. [...] ASI END: END RESULT: DATE DICTATED: () CAMP RECREATION SPECIALIST: ( ) IMPRESSION Omar HUMPHREYT documented in this encounter Visit Diagnoses Not on filedocumented in this encounter
--- OUTSIDE RECORDS SUMMARY | 2022-05-26 10:38 | XMS_ITS | Encounter Summary ---
:1955 Author Organization [facility] Address [address] [facility] [place] [address] Phone Care Team Providers Name Role Phone Unavailable Primary Care Provider Unavailable Encounter Details Date Type Department Care Team Description 03/04/2003 EWeb History [facility] Surgery Clinic Bubba Tavarez MD [address] Mail Code [address] [place], [place] [address] 5 [place] [address] [phone] (Wo rk) Social History Tobacco Use Types Packs/Day Years Used Date Smoking Tobacco: Never Assessed Sex Assigned at Date Recorded Not on file documented as of this encounter Plan of Treatment Not on filedocumented as of this encounter Visit Diagnoses Not on filedocumented in this encounter
--- OUTSIDE RECORDS SUMMARY | 2022-05-26 10:38 | XMS_ITS | Encounter Summary ---
:1955 Author Organization [facility] Address [address] [place] [address] Phone Care Team Providers Name Role Phone Unavailable Primary Care Provider Unavailable Encounter Details Date Type Department Care Team Description 07/03/1995 Orders Only [facility] [place] [address] [place], [place] [address] Social History Tobacco Use Types Packs/Day Years Used Date Smoking Tobacco: Never Assessed Sex Assigned at Date Recorded Not on file documented as of this encounter Plan of Treatment Not on filedocumented as of this encounter Procedures Procedure Name Priority Date/Time Associated Diagnosis Comme nts XR SACRUM AP & LAT Routine 07/03/1995 2:10 PM Res ults for this DEBATE DIRECTOR procedure are i n the results section. XR COCCYX AP & LAT Routine 07/03/1995 2:10 PM Res ults for this DEBATE DIRECTOR procedure are i n the results section. documented in this encounter Results XR COCCYX AP & LAT (07/03/1995 2:10 PM DEBATE DIRECTOR) Anatomical Region Laterality Modality Lumbar Spine Computed Radiography Specimen (Source) Anatomical Collection Method Collection Time Re ceived Time Location / / Volume Laterality 07/03/1995 2:10 PM DEBATE DIRECTOR Impressions 07/05/1995 12:33 PM DEBATE DIRECTOR : ??Please see Sacrum report dated 07/03/95 1410. ASI END: RELEASE RESULTS: (Y) END RESULT: IMPRESSION Narrative 07/05/1995 12:33 PM DEBATE DIRECTOR Final Report EXAM: ?? COCCYX AP & [...] SACRUM AP & LAT (07/03/1995 2:10 PM DEBATE DIRECTOR) Anatomical Region Laterality Modality Lumbar Spine Computed Radiography Specimen (Source) Anatomical Collection Method Collection Time Re ceived Time Location / / Volume Laterality 07/03/1995 2:10 PM DEBATE DIRECTOR Impressions 07/05/1995 12:33 PM DEBATE DIRECTOR : ??Evidence of bone loss or destruction [...] END RESULT: IMPRESSION Narrative 07/05/1995 12:33 PM DEBATE DIRECTOR Final Report EXAM: ?? SACRUM AP & [...]
--- OUTSIDE RECORDS SUMMARY | 2022-05-26 10:38 | XMS_ITS | Encounter Summary ---
:1955 Author Organization [facility] Address [address] [place] [address] Phone Care Team Providers Name Role Phone [...]
--- OUTSIDE RECORDS SUMMARY | 2022-05-26 10:38 | XMS_ITS | Encounter Summary ---
:1955 Author Organization Formerly Named [facility] Address [address] [facility] [place] [address] Phone Care Team Providers Name Role Phone Unavailable Primary Care Provider Unavailable Encounter Details Date Type Department Care Team Description 01/29/2001 Orders Only [facility]G Sameera Frances MD [address] [facility] [address] [place], [place] [address] 7 Mail Code P5 [place] [address] (Wo rk) Social History Tobacco [...] Results URINE CX (01/29/2001 3:37 PM CDT) [facility] Method Time Signature Urine Cult [facility] LAB Test Name ? [...] PM 01/31 CDT 10:25 AM CDT Narrative [facility] - 01/31/2001 10:25 AM CDT Ordered by an unspecified provider. Provider Unknown LAB MICROBIOLOGY Performing Organization Address City/State/ZIP Code Phon e Number [facility] [place] [address] LAB URINALYSIS, TOTAL (01/29/2001 3:37 PM CDT) [facility] Method Time Signature Color YELLOW YELLOW [facility] Appearance CLEAR CLEAR [facility] Urine Glucose NEGATIVE NEGATIVE [facility] Bili UA NEGATIVE NEGATIVE [facility] Ketones NEGATIVE NEGATIVE [facility] Specific Thorpe 1.010 1.003 - [facility] 1.030 Blood Ur TRACE Neg-Trace [facility] PH Urine 6.5 5.0 - 7.0 [facility] Protein Ur NEGATIVE NEGATIVE [facility] Urobilinogen 0.2 0.2 - 1.0 [facility] EU/dL Nitrite Ur NEGATIVE NEGATIVE [facility] Leuk Est TRACE Neg-Trace [facility] Microscopic [facility] WBC Ur 0 - 5 0 - 5 [facility] Trans Epith 1+ [facility] Sperm 1+ [facility] Specimen Anatomical Collection Method Collection Time Receive d Time (Source) Location / / Volume Laterality Urine 01/29/2001 3:37 PM 1 4:56 CDT PM CDT Narrative [facility] - 01/29/2001 4:56 PM CDT Ordered by an unspecified provider. Provider Unknown LABORATORY Performing Organization Address City/State/ZIP Code Phon e Number [facility] [place] [address] LAB documented in this encounter Visit Diagnoses Not on filedocumented in this encounter
--- OUTSIDE RECORDS SUMMARY | 2022-05-26 10:38 | XMS_ITS | Encounter Summary ---
:1955 Author Organization [facility] Address [address] [place] [address] Phone Care Team Providers Name Role Phone [...]
--- OUTSIDE RECORDS SUMMARY | 2022-05-26 10:38 | XMS_ITS | Encounter Summary ---
:1955 Author Organization [facility] Address [address] [place] [address] Phone Care Team Providers Name Role Phone Unavailable Primary Care Provider Unavailable Encounter Details Date Type Department Care Team Description 08/18/2005 Notes/Trans Unknown, Provider Social History Tobacco Use Types Packs/Day Years Used Date Smoking Tobacco: Never Assessed Sex Assigned at Date Recorded Not on file documented as of this encounter Progress Notes Interface, Regulatory Affairs Internship-In - 11/15/2005 1:28 AM CDT [facility] [id number] [facility] PATIENT: MICHEAL FLETCHER [id number] : 1955 [place] [address] DATE: 08/18/2005 Page (fax) The patient is [...] KEFLEX, SHELLFISH, AND AUGMENTIN. His primary care child and adolescent therapist is Dr. Sameera Frances whom he sees [...] year's time. Omar Savage MD Received in Regulatory Affairs Internship: 08/22/2005 18:11:27 (M: 08/24/2005 17:01:36 cb) CS/cb Voice ID: [id number] Document ID: [id number] cc: This document was electronically signed by Omar Savage MD on 08/26/2005 10:47:02. ? documented in this encounter Plan of Treatment Not on filedocumented as of this encounter Visit Diagnoses Not on filedocumented in this encounter
--- OUTSIDE RECORDS SUMMARY | 2022-05-26 10:38 | XMS_ITS | Encounter Summary ---
:1955 Author Organization [facility] Address [address] [place] [address] Phone Care Team Providers Name Role Phone Unavailable Primary Care Provider Unavailable Encounter Details Date Type Department Care Team Description 09/02/2005 Letters(Tab) Unknown, Provider Social History Tobacco Use Types Packs/Day Years Used Date Smoking Tobacco: Never Assessed Sex Assigned at Date Recorded Not on file documented as of this encounter Progress Notes Interface, M1A1 Tank Crewman-In - 11/15/2005 1:36 AM CDT [facility] [address] [facility] [address] [place], [place] [address] September 02, 2005 Mr. Micheal Rene [address] [place] [address] RE: MICHEAL RENE MR#: [id number] Dear Mr. Rene: From your recent Urology Clinic visit, your prostate specific antigen value remains low at 2.6. We will communicate with you once your other screening studies and x-ray studies have been completed. Best wishes. Please feel free to contact me for questions. Sincerely, Omar Savage MD Received in M1A1 Tank Crewman: 09/02/2005 14:40:28 (M: 09/03/2005 06:57:04 dma) CS/fidelina Voice ID: [id number] Document ID: [id number] cc: This document was electronically signed by Omar Savage MD on 09/06/2005 18:13:45. documented in this encounter Plan of Treatment Not on filedocumented as of this encounter Visit Diagnoses Not on filedocumented in this encounter
--- OUTSIDE RECORDS SUMMARY | 2022-05-26 10:38 | XMS_ITS | Encounter Summary ---
:1955 Author Organization [facility] Address [address] [place], [place] [address] [address] Phone Care Team Providers Name Role Phone Unavailable Primary Care Provider Unavailable Encounter Details Date Type Department Care Team Description 04/03/1997 Orders Only [facility] Ultrasound [address] [place], [place] [address] Social History Tobacco Use Types Packs/Day Years [...] CHEST 2 VIEWS PA & LAT - 199 7 02:02PM EXAM: CHEST 2 VIEWS 04/03/1997 [...] CDT Final Report EXAM: ?? RENAL US: [place] [facility] ?- ??04/03/1997 01:10PM ?? EXAM: ??RENAL [...] - 03/10/2006 Final Report EXAM: RENAL US: [place] [facility] - 997 01:10PM EXAM: RENAL ULTRASOUND [...]
--- OUTSIDE RECORDS SUMMARY | 2022-05-26 10:38 | XMS_ITS | Encounter Summary ---
:1955 Author Organization [facility] Address [address] [place] [address] Phone Care Team Providers Name Role Phone Unavailable Primary Care Provider Unavailable Encounter Details Date Type Department Care Team Description 05/10/2005 EWeb History [facility] EMG Sameera Frances MD [address] [facility] [address] [place], [place] [address] Mail Code [address] [place] [address] (Wo rk) Social History Tobacco Use Types Packs/Day Years Used Date Smoking Tobacco: Never Assessed Sex Assigned at Date Recorded Not on file documented as of this encounter Plan of Treatment Not on filedocumented as of this encounter Visit Diagnoses Not on filedocumented in this encounter
--- OUTSIDE RECORDS SUMMARY | 2022-05-26 10:38 | XMS_ITS | Encounter Summary ---
:1955 Author Organization [facility] Address [address] [place] [address] Phone Care Team Providers Name Role Phone Unavailable Primary Care Provider Unavailable Encounter Details Date Type Department Care Team Description 04/03/1997 Orders Only [facility] [address] [place], [place] [address] Social History Tobacco Use [...]
--- OUTSIDE RECORDS SUMMARY | 2022-05-26 10:38 | XMS_ITS | Encounter Summary ---
:1955 Author Organization [facility] Address [address] [place], [place] [address]. [place] [address] Phone Care Team Providers Name Role Phone Unavailable Primary Care Provider Unavailable Encounter Details Date Type Department Care Team Description 12/09/1998 Orders Only [facility] MRI G[address] [place], [place] [address] Social History Tobacco Use [...]
--- OUTSIDE RECORDS SUMMARY | 2022-05-26 10:38 | XMS_ITS | Encounter Summary ---
:1955 Author Organization [facility] Address [address] [place] [address] Phone Care Team Providers Name Role Phone Unavailable Primary Care Provider Unavailable Encounter Details Date Type Department Care Team Description 05/10/2005 Notes/Trans Unknown, Provider Social History Tobacco Use Types Packs/Day Years Used Date Smoking Tobacco: Never Assessed Sex Assigned at Date Recorded Not on file documented as of this encounter Progress Notes Interface, Vamp Liner-In - 11/15/2005 12:30 AM CDT [facility]#: [id number] [place] [address] PATIENT: MICHEAL FLETCHER : 1955 NARRATIVE NOTES [...] a father and a grandfather living in [place]. REVIEW OF SYSTEMS: A total of ten [...] depression. Equipment - he has a new FOUNDDie wheelchair and a J cushion with extra [...] Physical Medicine and Rehabilitation Service Received in Vamp Liner: 05/10/2005 17:00:07 (M: 05/12/2005 12:51:56/[facility]) [facility]/cme Voice ID: [id number] Document ID: [id number] cc: This document was electronically signed by Sameera Frances MD on 06/07/2005 14:43:43. documented in this encounter Plan of Treatment Not on filedocumented as of this encounter Visit Diagnoses Not on filedocumented in this encounter
--- OUTSIDE RECORDS SUMMARY | 2022-05-26 10:38 | XMS_ITS | Encounter Summary ---
:1955 Author Organization [facility] Address [address] [place] [address] Phone Care Team Providers Name Role Phone Unavailable Primary Care Provider Unavailable Encounter Details Date Type Department Care Team Description 10/12/2001 Orders Only [facility] [address] [place], [place] [address] Social History Tobacco Use Types Packs/Day Years Used Date Smoking Tobacco: Never Assessed Sex Assigned at Date Recorded Not on file documented as of this encounter Plan of Treatment Not on filedocumented as of this encounter Procedures Procedure Name Priority Date/Time Associated Diagnosis Comme nts XR CHEST 2 VIEWS PA Routine 10/12/2001 12:00 PM R esults for this + LAT* PRINCIPAL SECRETARY procedure are i n the results section. [facility] [facility] Routine 10/12/2001 11:22 AM Results for this COMPLETE PRINCIPAL SECRETARY procedure are i n the results section. documented in this encounter Results XR CHEST 2 VIEWS PA & LAT (10/12/2001 12:00 PM PRINCIPAL SECRETARY) Anatomical Region Laterality Modality Chest Digital Radiography Specimen (Source) Anatomical Collection Method Collection Time Re ceived Time Location / / Volume Laterality 10/12/2001 12:00 PM PRINCIPAL SECRETARY Impressions 10/14/2001 3:54 PM PRINCIPAL SECRETARY : 1. ??NO PULMONARY FIBROSIS OR AIR-SPACE INFILTRATE SEEN. 2. ??STABLE RIGHT LOWER LOBE PULMONARY N ODULE, LIKELY CALCIFIED. 3. ??INTERVAL MORE PROMINENT DENSITY OVE R THE MEDIAL ASPECT OF THE RIGHT APEX, OF UNCERTAIN CLINICAL SIGNIFICANCE . ??FURTHER EVALUATION WITH LORDOTIC VIEW MAY BE HELPFUL. ASI END: RELEASE RESULTS: (Y) END RESULT: IMPRESSION Narrative 10/14/2001 3:54 PM PRINCIPAL SECRETARY Final Report EXAM: ?? CHEST 2 VIEWS [...] X-RAY ULT KIDNEY COMPLETE (10/12/2001 11:22 AM PRINCIPAL SECRETARY) Anatomical Region Laterality Modality Abdomen Ultrasound Specimen (Source) Anatomical Collection Method Collection Time Re ceived Time Location / / Volume Laterality 10/12/2001 11:22 AM PRINCIPAL SECRETARY Impressions 10/15/2001 4:06 PM PRINCIPAL SECRETARY : 1. ??NO RENAL STONES IDENTIFIED. 2. ??MILD CORTICAL THINNING BILATERALLY. ??THIS MAY INDICATE MEDICAL RENAL DISEASE. I have personally reviewed the image(s) and initial interpretation, and I agree with the findings. ASI END: RELEASE RESULTS: (Y) END RESULT: IMPRESSION Narrative 10/15/2001 4:06 PM PRINCIPAL SECRETARY Final Report EXAM: ?? RENAL US: [place] [facility] ?- ??10/12/2001 11:22AM SUSPECTED PATHOLOGY: SYMPTOMS [...] the original. Final Report EXAM: RENAL US: [place] [facility] - 002 11:22AM SUSPECTED PATHOLOGY: SYMPTOMS [...]
--- OUTSIDE RECORDS SUMMARY | 2022-05-26 10:39 | XMS_ITS | Clinical Summary ---
:1955 Author Organization [facility] [place] [address] Care Team Providers Name Role Phone Ana Mayers Unavailable Alex Mata MD Primary Care Provider [phone] Allergies Active Allergy Reactions Severity Noted Date Comments Blood-Group Specific Other - Describe In 04/19/2021 Patient has Levi saucedo Substance Comment Field (Fya) antibody . Blood products may be delayed. Dra renee patient 24 hour s prior to transfusion. Fo r [employer] testing, draw o ne red top and [...] Flap repair of bilateral ischial ulcers 06/13/2011 Encounters Date Type Specialty Care Team Description 05/25/2022 Lab Requisition Alex Mata MD 05/18/2022 Lab Requisition Jimena Fleming MD 05/18/2022 Lab Requisition Yamile Conway NP 05/18/2022 Lab Requisition Yamile Conway NP from Last 3 Months Immunizations Name Administration Dates Next Due Hepatitis [...] drinks on one Never 12/11/2018 occasion? Comment: occ 12/24/2008 Sex Assigned at Date Recorded Not [...] 12/26/2008, 09/01/2006 Medical Devices Implanted Type Area Frame Stripper Device Shelf Model / Identifier Expiration Serial / Date Lot Standard Pacemaker-12/21/2012 Standard Medtronic [id number] / Implanted: 12/21/2012 by Judson Jenkins MD (Quantity not on file) Pacemaker [id number] / Procedures Procedure Name Priority Date/Time Associated Diagnosis Comme nts EXTRA TUBE RED Routine 05/25/2022 2:07 Osteomyelitis of PM CDT vertebra, sacral and sacrococcygeal region (HC) Pressure ulcer of right buttock, stage 4 (HC) EXTRA TUBE LIGHT Routine 05/25/2022 2:07 Osteomyelitis of GREEN PM CDT vertebra, sacral and sacrococcygeal region (HC) Pressure ulcer of right buttock, stage 4 (HC) EXTRA TUBE LAVENDER Routine 05/25/2022 2:07 Osteomyelitis of PM CDT vertebra, sacral and sacrococcygeal region (HC) Pressure ulcer of right buttock, stage 4 (HC) CBC WITH AUTO Routine 05/25/2022 2:07 Osteomyelitis of Results for this DIFFERENTIAL PM CDT vertebra, sacral and procedu re are in sacrococcygeal region the re sults (HC) section. Pressure ulcer of right buttock, stage 4 (HC) C-REACTIVE PROTEIN Routine 05/25/2022 2:07 Osteomyelitis of Re sults for this PM CDT vertebra, sacral and procedu re are in sacrococcygeal region the re sults (HC) section. Pressure ulcer of right buttock, stage 4 (HC) BUN Routine 05/25/2022 2:07 Osteomyelitis of Results for this PM CDT vertebra, sacral and procedu re are in sacrococcygeal region the re sults (HC) section. Pressure ulcer of right buttock, stage 4 (HC) AST (SGOT) Routine 05/25/2022 2:07 Osteomyelitis of Results for this PM CDT vertebra, sacral and procedu re are in sacrococcygeal region the re sults (HC) section. Pressure ulcer of right buttock, stage 4 (HC) SEDIMENTATION RATE Routine 05/25/2022 2:07 Osteomyelitis of Re sults for this PM CDT vertebra, sacral and procedu re are in sacrococcygeal region the re sults (HC) section. Pressure ulcer of right buttock, stage 4 (HC) CBC WITH AUTO Routine 05/25/2022 2:07 Osteomyelitis of Results for this DIFFERENTIAL PM CDT vertebra, sacral and procedu re are in sacrococcygeal region the re sults (HC) section. Pressure ulcer of right buttock, stage 4 (HC) LAB TRACKING EVENT Routine 05/18/2022 4:15 PM CDT PATH TISSUE EXAM Routine 05/17/2022 4:15 Results for this PM CDT procedure are i n the results section. REFERRAL Routine 05/16/2022 9:56 Results for this ID/SUSC,NONURINE PM CDT procedure a re in the results section. REFERRAL ID Routine 05/16/2022 9:00 Results for this ONLY,NONURINE AM CDT procedure are in the results section. from Last 3 Months Results (ABNORMAL) SEDIMENTATION RATE (05/25/2022 2:07 PM CDT) [facility] gist Method Time Signature SEDIMENTATION 120 (H) <20 mm/hr 05/25/2022 [place] RATE 2:55 PM [facility] Specimen Anatomical Collection Method Collection Time Receive d Time (Source) Location / / Volume Laterality Blood BLOOD SPECIMEN / Client Collect / 05/25/2022 2:07 PM 1 07/25/2021 2:47 Unknown Unknown CDT PM CDT Alex Mata MD HEMATOLOGY Performing Organization Address City/[facility]/ZIP Code Phon e Number [facility] [address] [place] [address] EXTRA TUBE RED (05/25/2022 2:07 PM CDT) Specimen Anatomical Collection Method Collection Time Receive d Time (Source) Location / / Volume Laterality Blood BLOOD SPECIMEN / Client Collect / 05/25/2022 2:07 PM 1 07/25/2021 2:49 Unknown Unknown CDT PM CDT Alex Mata MD LABORATORY Performing Organization Address City/[facility]/ZIP Code Phon e Number [facility] [address] [place] [address] (ABNORMAL) CBC WITH AUTO DIFFERENTIAL (05/25/2022 2:07 PM CDT) [facility] Method Time Signature WHITE BLOOD 6.6 4.5 - 05/25/2022 [place] COUNT 11.0 2:58 PM [facility] thou/cu LABORATORY mm RED BLOOD COUNT 3.31 (L) 4.30 - 05/25/2022 [place] 5.90 2:58 PM [facility] mil/cu mm LABORATORY HEMOGLOBIN 9.5 (L) 13.5 - 05/25/2022 [place] 17.5 g/dL 2:58 PM [facility] LABORATORY HEMATOCRIT 30.6 (L) 37.0 - 05/25/2022 [place] 53.0 % 2:58 PM [facility] LABORATORY MCV 92 80 - 100 05/25/2022 [place] fL 2:58 PM [facility] LABOR[facility] MCH 28.7 26.0 - 05/25/2022 [place] 34.0 pg 2:58 PM [facility] LAB[facility] MCHC 31.0 (L) 32.0 - 05/25/2022 [place] 36.0 g/dL 2:58 PM [facility] LABORATORY RDW 13.4 11.5 - 05/25/2022 [place] 15.5 % 2:58 PM [facility] LABORATORY PLATELET COUNT 458 (H) 140 - 440 05/25/2022 [place] thou/cu 2:58 PM [facility] mm LABORATORY MPV 7.9 6.5 - 05/25/2022 [place] 11.0 fL 2:58 PM [facility] LABORATORY % NEUT 65.6 % 05/25/2022 [place] 2:58 PM [facility] % LYMPH 22.6 % 05/25/2022 [place] 2:58 PM [facility] LABORATORY % MONO 7.8 % 05/25/2022 [place] 2:58 PM [facility] LABORATORY % EOS 3.5 % 05/25/2022 [place] 2:58 PM [facility] LABORATORY % BASO 0.5 % 05/25/2022 [place] 2:58 PM [facility] LABORATORY ABSOLUTE 4.4 1.7 - 7.0 05/25/2022 [place] NEUTROPHILS thou/cu 2:58 PM [facility] mm LABORATORY ABSOLUTE 1.5 0.9 - 2.9 05/25/2022 [place] LYMPHOCYTES thou/cu 2:58 PM CDT [facility] mm LABORATORY ABSOLUTE 0.5 <0.9 05/25/2022 [place] MONOCYTES thou/cu 2:58 PM CDT [facility] mm LABORATORY ABSOLUTE 0.2 <0.5 05/25/2022 [place] EOSINOPHILS thou/cu 2:58 PM CDT [facility] mm LABORATORY ABSOLUTE 0.0 <0.3 05/25/2022 [place] BASOPHILS thou/cu 2:58 PM CDT [facility] mm LABORATORY Specimen Anatomical Collection Method Collection Time Receive d Time (Source) Location / / Volume Laterality Blood BLOOD SPECIMEN / Client Collect / 05/25/2022 2:07 PM 1 07/25/2021 2:47 Unknown Unknown CDT PM CDT Alex Mata MD HEMATOLOGY Performing Organization Address City/[facility]/ZIP [facility] Phon e Number [facility] [address] [place] [address] EXTRA TUBE LIGHT GREEN (05/25/2022 2:07 PM CDT) Specimen Anatomical Collection Method Collection Time Receive d Time (Source) Location / / Volume Laterality Blood BLOOD SPECIMEN / Client Collect / 05/25/2022 2:07 PM 1 07/25/2021 2:49 Unknown Unknown CDT PM CDT Alex Mata MD LABORATORY Performing Organization Address [facility] Code Phon e Number [facility] [address] [place] [address] EXTRA TUBE LAVENDER (05/25/2022 2:07 PM CDT) Specimen Anatomical Collection Method Collection Time Receive d Time (Source) Location / / Volume Laterality Blood BLOOD SPECIMEN / Client Collect / 05/25/2022 2:07 PM 1 07/25/2021 2:49 Unknown Unknown CDT PM CDT Alex Mata MD LABORATORY Performing Organization Address [facility] Code Phon e Number [facility] [address] [place] [address] BUN (05/25/2022 2:07 PM CDT) athologist Signature BUN 16 8 - 25 05/25/2022 [place] mg/dL 3:09 PM [facility] LAB[facility] Specimen Anatomical Collection Method Collection Time Receive d Time (Source) Location / / Volume Laterality Blood BLOOD SPECIMEN / Client Collect / 05/25/2022 2:07 PM 1 07/25/2021 2:47 Unknown Unknown CDT PM CDT Alex Mata MD CHEMISTRY Performing Organization Address City/[facility]/ZIP Code Phon e Number [facility] [address] [place] [address] (ABNORMAL) C-REACTIVE PROTEIN (05/25/2022 2:07 PM CDT) Analysis Performed At Patho logist Time Signature C-REACTIVE 4.68 (H) <0.50 05/25/2022 [place] PROTEIN mg/dL 3:08 PM CDT [facility] Specimen Anatomical Collection Method Collection Time Receive d Time (Source) Location / / Volume Laterality Blood BLOOD SPECIMEN / Client Collect / 05/25/2022 2:07 PM 1 07/25/2021 2:47 Unknown Unknown CDT PM CDT Alex Mata MD CHEMISTRY Performing Organization Address City/[facility]/ZIP Code Phon e Number [facility] [address] [place] [address] AST (SGOT) (05/25/2022 2:07 PM CDT) P athologist Signature AST (SGOT) 21 2 - 40 IU/L 05/25/2022 [place] 3:11 PM T [facility] Specimen Anatomical Collection Method Collection Time Receive d Time (Source) Location / / Volume Laterality Blood BLOOD SPECIMEN / Client Collect / 05/25/2022 2:07 PM 1 07/25/2021 2:47 Unknown Unknown CDT PM CDT Alex Mata MD CHEMISTRY Performing Organization Address City/State/ZIP Code Phon e Number [facility] [address] [place] [address] LAB TRACKING EVENT (05/18/2022 4:15 PM CDT) Specimen Anatomical Collection Method Collection Time Receive d Time (Source) Location / / Volume Laterality Other (Other) Client Collect / 05/18/2022 4:15 PM 04/24 5:18 Unknown CDT PM CDT Jimena Fleming MD LAB BILL ONLY Performing Organization Address City/State/ZIP Code Phon e Number [employer] [address] [place] [address] [facility] 2000 LABORATORY PATH TISSUE EXAM (05/17/2022 4:15 PM CDT) Component Value Ref Test Analysis Performed At [facility] gist Range Method Time Signature Case Report Pathology Report ?Case: [id number] ? 05/20/2022 [facility] Authorizing Provider: ??Jimena Higgins MD ?Collected: ? 05/17/2022 1615 ? 11:49 AM HEALTH Ordering Location: ? [facility] ?Received: ?05/18/2022 1847 ? CDT MICHELLE LOVELL Pathologist: ? Sweetie Daily MD ? ENTRAL Specimen: ?Bone Biopsy, ISCHIUM ? LABORATORY Final A) BONE, ISCHIUM, BIOPSY: 05/20/2022 [facility] Electronically Diagnosis 1. Segment of bone with necr osis, acute osteomyelitis, and chronic osteomyelitis 11:49 AM HEALTH signed by Abimbola, 2. No evidence of malignancy CDT L ABORATORY-C MD Sweetie on ENTRAL 05/20/2022 at LABORATORY 11:49 AM Comment A) The 05/20/2022 [facility] interpretation of 11:49 AM HEALTH these results is CDT LABORATORY-C based in part on ENTRAL the LABORATORY decalcification procedure performed. Clinical Osteomyelitis 05/20/2022 [facility] Information 11:49 AM HEALTH CDT LABORATORY-C ENTRAL LABORATORY Gross A) Received in formalin, lab eled with the patient's name and ischial bone, is an aggregate of youngblood-pink cancellous bone fragments, measuring 1.2 x 0.2 x 1.0 cm in aggregate. ??Specimen is submitted entirely in 1 cassette after decalcification. 05/20/2022 [facility] Description 11:49 AM HEALTH JAL 05/18/2022 CDT LABORATORY-C ENTRAL LABORATORY Microscopic The final diagnosis is based on microscopic examination of appropriate sections of all specimens. 05/20/2022 [facility] Description 11:49 AM HEALTH CDT LABORATORY-C ENTRAL LABORATORY Additional 05/20/2022 [facility] Information Interpreted at [facility], [facility] - [address], [place] [address] 11:49 AM HEALTH CDT LABORATORY-C ENTRNV LABORATORY Specimen Anatomical Collection Method Collection Time Receive d Time (Source) Location / / Volume Laterality Other (Bone 05/17/2022 4:15 PM 6:47 Biopsy) CDT PM CDT Jimena Fleming MD PATHOLOGY/CYTOLOGY Performing Organization Address City/State/ZIP Code Phon e Number [facility] [address] [place] [address] LABORATORY-CENTRAL 2000 LABORATORY (ABNORMAL) REFERRAL ID/SUSC,NONURINE (05/16/2022 9:56 PM CDT) [facility] gist Method Time Signature CULTURE RESULT (A) 05/21/2022 [facility] 11:43 AM CDT LABORATORY-CE NTRAL LABORATORY CULTURE Streptococcus 05/21/2022 [facility] anginosus 11:43 AM CDT LABORATORY-CE NTRAL LABORATORY Specimen Anatomical Collection Method Collection Time Receive d Time (Source) Location / / Volume Laterality Other SPECIMEN FROM Client Collect / 05/16/2022 9:56 PM 04/24 WOUND / Unknown Unknown CDT 10:40 PM CDT Organism Antibiotic Method Susceptibility Streptococcus anginosus PENICILLIN <=0.06: S Streptococcus anginosus CEFTRIAXONE <=0.12: S Streptococcus anginosus ERYTHROMYCIN >=8: R Streptococcus anginosus CLINDAMYCIN >=1: R Streptococcus anginosus VANCOMYCIN 0.5: S Streptococcus anginosus AMPICILLIN <=0.25: S Streptococcus anginosus CLARITHROMYCIN R Yamile Conway NP MICROBIOLOGY Performing Organization Address City/State/ZIP Code Phon e Number [employer] [address] [place] [address] LABORATORY-CENTRAL 1999 LABORATORY (ABNORMAL) REFERRAL ID ONLY,NONURINE (05/16/2022 9:00 AM CDT) [facility] Method Time Signature CULTURE RESULT (A) 05/19/2022 [facility] [employer] 3:00 PM CDT LABORATORY-CE NTRAL LABORATORY CULTURE Streptococcus 05/19/2022 [facility] [employer] anginosus 3:00 PM CDT LABORATORY-CE NTRAL LABORATORY Specimen Anatomical Collection Method Collection Time Receive d Time (Source) Location / / Volume Laterality Other SPECIMEN FROM Client Collect / 05/16/2022 9:00 AM 04/24 WOUND / Unknown Unknown CDT 10:38 PM CDT Yamile Conway NP MICROBIOLOGY Performing Organization Address City/State/ZIP Code Phon e Number [employer] [address] [place] [address] LABORATORY-CENTRAL 1999 LABORATORY from Last 3 Months Additional Health Concerns Infection [...] 12 months since positive culture): resides in acute/snf care, receiving hemodialysis, has chronic open wounds/skin damage, has long-te rm percutaneous indwelling medical devic es Exclusions for nares collection (if <12 months since positive culture) include all of the previous exclusions plus patients on antibiotics 7 days prior to collection Insurance Payer Benefit Plan / Subscriber ID Effective Dates Phone Addre ss Type Group WC WORKERS COMP [facility] [id number] 1989-Prese C/O [place] [employer] [address] [place] [address] WC WORKERS COMP WC [place] [id number] 1989-Prese C/O [employer] [address] [place] [address] MEDICARE PART A - MEDICARE PART [id number] 1991-Presen ATTN: CLAIMS HB USE ONLY A HB ONLY t [address] [place] [address] [facility] MR [id number] 2020-Presen [address] [address] [place] [address] [employer] Workers Comp Self 1955 [id number] [place]EN[place] [id number] [employer] Workers Comp Self 1955 [id number] [employer] [address] [address] [employer] Personal/Family Self 1955 1 [id number] [employer] (Home) [place] [id number] Advance Directives Latest Code Status on File Code Status Date Activated Date Inactivated Comments Full Code 03/05/2020 6:59 AM 03/09/2020 8:07 PM Code Status Discussion: Not Discussed Full Code 04/25/2016 3:57 PM 05/10/2016 8:47 PM Full Code 2016 6:44 AM 03/14/2016 5:37 PM Full Code 12/16/2015 12:49 PM 12/25/2015 1:24 PM Full Code 12/15/2015 3:46 PM 12/16/2015 12:49 PM Care Teams Measuring Machine Operator Relationship Specialty Start Date End Date Alex Mata MD PCP - General Family Practice 02/04/201999 [place] [address] Ana Mayers Nurse Practitioner 03/02/[address] [place] [address]
--- OUTSIDE RECORDS SUMMARY | 2022-05-26 10:39 | XMS_ITS ---
:1955 Author Care Team Providers Name Role Phone CHETNA MERAZ MD Primary Care Provider [phone] ANN MCLAININA [employer] Developer [phone] Allergies Code Code System Name Reaction Severity [...] MOUTH ONCE A DAY FOR 10 DAYS [id number] 3.5 mg-10,000 unit/mL-1 % ear d rops,susp [...] Name Performed by ? 09/27/2021 US, Kidney [facility] Radiology Department [address] [place] [address] (Work Place) Results Lab Results Date Name Specimen Result Interpretation Description Value Range Status Address ? 05/06/2021 Culture, BLDV ABNORMAL Final Report microbiology ? Final [place] Urine results [facility] Lab: [address] [facility] [address], [place] 05/06/2021 Urinalysis ? No ? ? ? , Dipstick observation recorded. 02/18/2021 Culture, UR ABNORMAL Final Report microbiology ? Final [place] Urine results [facility] Lab: [address], [place] ? Urinalysis ? Color-Status Yellow ? ? [...] ? ? ? Sp 1.015 ? ? [place]-Statu s ? ? ? Nitrates-Sta positive ? ? tus ? ? ? Blood-Status Trace ? Leuko-Status Large ? ? Past Encounters 09/27/2021 Neurogenic Bladder; Spinal Cord Injury; Spasm of Bladder; Recurrent Urinary Tract Infection Jono Pagan MD: [address] [place] [address], Ph. 05/06/2021 Abnormal Urine Jono Pagan MD: [address] [place] [address], Ph. 02/18/2021 Neurogenic Bladder; Spinal Cord Injury; Spasm of Bladder; Recurrent Urinary Tract Infection; Acute Urinary Tract Infection Jono Pagan MD: [address] [place] [address], Ph. Social History Tobacco Smoking Status Former [...]
== END 2022-05-26 10:16 | disposition home or self-care (01) ==
LOC: WOUND 10:15
PROVIDERS: PCP Family Medicine; Visit Provider Nurse Practitioner Family
DX: L89.614 Pressure ulcer of right heel, stage 4 (principal); L89.894 Pressure ulcer of other site, stage 4; L89.314 Pressure ulcer of right buttock, stage 4; L89.514 Pressure ulcer of right ankle, stage 4; L89.154 Pressure ulcer of sacral region, stage 4
CPT/HCPCS: 11043; 11044; 11046; 11047; 97605

== ENCOUNTER 2022-05-30 14:26 | Outpatient (CLI) | payer OTHER, MEDICARE, SELFPAY ==
--- OUTSIDE RECORDS SUMMARY | 2022-05-30 14:59 | XMS_ITS | Clinical Summary ---
:1955 Author Organization [facility] Address [address] [place] [address] Phone Care Team Providers Name Role Phone Lila Clay PT Unavailable Source Comments Gravity is fully rolled out on [employer]. Last update 12/26/08.[facility] Allergies Active Allergy Reactions Severity Noted Date [...] Comments Blood Pressure 135/74 09/02/2021 8:12 AM TRANSFER STATION OPERATOR Pulse 72 09/02/2021 8:12 AM TRANSFER STATION OPERATOR Temperature 36.2 ??C (97.1 ??F) 09/15/2016 8:09 AM TRANSFER STATION OPERATOR Respiratory Rate 14 04/20/2010 1:39 PM CDT [...] Phone Address Typ e / Group Dates [facility] [id number] 1990-Pre [phone] [address] Work Comp [employer] sent [address] [employer] [place] [address] [facility] COMPLETE [id number] 2020-Pres [address] [facility] (MEDICARE ent [id number] Man[employer]VANTAGE) [place] [address] [id number] Workers Comp Employer 1955 % [employer] [place] (Home[place] [id number] [address] S[place] [id number] Care Teams Cattery Operator Relationship Specialty Start Date End Date Lila Clay, PT Physical Therapist Physical Therapy 04/05/21 [address] [place] [address]
--- OUTSIDE RECORDS SUMMARY | 2022-05-30 14:59 | XMS_ITS | Encounter Summary ---
:1955 Author Organization [facility] Address [address] [place] [address] Phone Care Team Providers Name Role Phone Lila Clay PT Unavailable Reason for Visit Reason Comments Referral Consult/Test/Treat (Routine) - Closed Specialty Diagnoses / Procedures Referred By Contact Refer red To Contact Physical Medicine and Diagnoses Paraplegia, unspecified paraplegia from previous in [place] 33 yrs James Nava Csc [facility] / PHYSICAL MD [place] [address] [place] [address] MEDICINE AND REHAB [address] [place] [phone] Fax: Referral ID Status Reason Start Date Expiration Date Visits V isits Requested Authorized [id number] Closed Created in 07/20/2021 07/20/2022 1 1 PAS Encounter Details Date Type Department Care Team Description 09/02/2021 Office Visit Clinic [facility] Dariel Israel uadriplegia, C5-C7 incomplete () (Primary Dx); Physical Medicine & A, PA-C Muscle spasticity Rehabilitation Clini [facility] [address] [place] [address] [phone] Social History Tobacco Use [...] Comments Blood Pressure 135/74 09/02/2021 8:12 AM SPLASH LINE OPERATOR Pulse 72 09/02/2021 8:12 AM SPLASH LINE OPERATOR Temperature - - Respiratory Rate - - Oxygen Saturation - - Inhaled Oxygen Concentration - - Weight - - Height - - Body Mass Index - - documented in this encounter Progress Notes Dariel Israel PA-C - 09/02/2021 8:00 AM CST [facility] Physical Medicine & Rehabilitation Clinic Khanh Rnee : 1955 Sex: male Preferred Name: Randy [...] is followed by a wound clinic in [place]. He just had a wheelchair evaluation in physical therapy here at [facility]. He stated that around 2 to 3 [...] 5/5 EE 5/5 5/5 WE 4/5 4/5 Captain Room Service 3/5 3/5 Strength bilateral lower extremities 0/5 [...] service, including pre-visit review of separatelyobtained history, [id number] interaction performing medically appropriate physical exam, patient counseling/education, interpretation of diagnostic results, care coordination and documentation was 46 minutes. Dictation Disclaimer: Notes are completed with voice-recognition dictation software. Errors are generally corrected in real time. Please contact me via [employer] staff message if you note any errors requiring clarification. SH LINE OPERATOR documented in this encounter Plan of Treatment Scheduled Orders Name Type Priority Associated Diagnoses Order S chedule EMG - BOTOX EMG Routine Muscle spasticity Ordered: 0 09/02/2021 documented as of this encounter Procedures Procedure Name Priority Date/Time Associated Comments Diagnosis CARE EVERYWHERE 09/07/2021 11:04 Results for this AUTHORIZATION AM SPLASH LINE OPERATOR procedure are in the results section. CARE EVERYWHERE 09/07/2021 11:04 Results for this AUTHORIZATION AM SPLASH LINE OPERATOR procedure are in the results section. documented in this encounter Results CARE EVERYWHERE AUTHORIZATION (09/07/2021 11:04 AM SPLASH LINE OPERATOR) Narrative This result has an attachment that is no t available. Him Provider SCANNED CONSENTS CARE EVERYWHERE AUTHORIZATION (09/07/2021 11:04 AM SPLASH LINE OPERATOR) Narrative This result has an attachment that is no t available. Him Provider SCANNED CONSENTS documented in this encounter Visit Diagnoses Diagnosis Quadriplegia, C5-C7 incomplete () - Pr imary Quadriplegia, C5-C7, incomplete Muscle spasticity Spasm of muscle documented in this encounter Care Teams Health Advisor Relationship Specialty Start Date End Date Lila Clay, PT Physical Therapist Physical Therapy 04/05/[address] [place] [phone] documented as of this encounter
--- OUTSIDE RECORDS SUMMARY | 2022-05-30 14:59 | XMS_ITS | Encounter Summary ---
:[address] [facility] Address [address] [facility] [place] [address] Phone Care Team Providers Name Role Phone Lila Clay PT Unavailable Reason for Visit Reason Onset Date Comments Prior Authorization For Medications 09/03/2021 Boto x (onabotulinumtoxinA) Encounter Details Date Type Department Care Team Description 09/03/2021 Pharmacy Prior [facility] P1 Pharmacy Sakshi Mcmanus, Authorization [address] [facility] PharmD P1.630 701 [place], [place] [address] [place], [place] [phone] Social History Tobacco Use Types Packs/Day Years [...] the patient has active primary coverage through [facility] MEDICARE ADVANTAGE ([facility]). [facility] does NOT require prior authorization for BOTOX when it is given in the clinic/infusion center and billed on the medical claim (buy and bill). IMPORTANT - READ BELOW However, [facility] reimburses BOTOX only for select designated ICD-10/Diagnosis Codes. Based on review of the patient's chart, please (continue to) use the following COVERED diagnosis code for the visits in which the patient will receive BOTOX: - G82.50 or G82.54 Quadriplegia Update 01/27/2022 - Unable to get response from [employer]. Per 10/21/2021 note appears patient was going [...] filedocumented in this encounter Care Teams Bark Scaler Relationship Specialty Start Date End Date Lila Clay, PT Physical Therapist Physical Therapy 04/05/[address] [place] [address] documented as of this encounter
--- OUTSIDE RECORDS SUMMARY | 2022-05-30 14:59 | XMS_ITS | Encounter Summary ---
:1955 Author Organization [facility] Address [address] [place] [address] Phone Care Team Providers Name Role Phone Hallie Clay PT Unavailable Reason for Referral Prior Authorization (Routine) - Closed Specialty Diagnoses / Procedures Referred By Contact Refer red To Contact Physical Therapy / Diagnoses Quadriplegia () At high risk for skin breakdown Impaired mobility Provider, Outside Hallie Clay, PHYSICAL MEDICINE AND Procedures PT TREATMENT PLAN OUTSIDE PROVIDER PT REHAB [place], [place] [id number] [place] [address] Phone: Fax: Referral ID Status Reason Start Date Expiration Date Visits Requ ested Visits Authorized [id number] Closed 05/05/2021 01/20/2022 12 12 CLE DYNAMICS ENGINEER Reason for Visit Prior Authorization (Routine) - Closed Specialty Diagnoses / Procedures Referred By Contact Refer red To Contact Physical Therapy / Diagnoses Quadriplegia () At high risk for skin breakdown Impaired mobility Provider, Outside Hallie Clay, PHYSICAL MEDICINE AND Procedures PT TREATMENT PLAN OUTSIDE PROVIDER PT REHAB [place], [place] [id number] [place] [address] Phone: Fax: Referral ID Status Reason Start Date Expiration Date Visits Requ ested Visits Authorized [id number] Closed 05/05/2021 01/20/2022 12 12 Encounter Details Date Type Department Care Team Description 07/14/2021 Hospital Encounter Clinic & Specialty Provider, [place] [address] Center Admissions Assistant apHallie Hopkins, PT [address] [address] Social History Tobacco Use Types [...] Signature: Date: 07/14/2021 Date: Please return to: [facility] Physical Therapy [address] [address] RECERTIFICATION SUMMARY New Recertification period: 07/14/21 to [...] Recent Hospitalization:??None?? Referring Provider:?? MD Yamile Alves, MANUFACTURING CONTROLS ENGINEER ?? Current Precautions/Contraindications:?At high risk for skin breakdown, s/p flap surgery, currentpressure injuries on feet [facility] Receiving Worker:?no ?? Patient gave two identifiers for Check 2 for Safety Total Treatment Time: 55 Min ?? Pain: No significant complaints during session ?? S: Pt presents to his PT session in his [facility], independently. Also present: Matthew Ricketts/[employer]. 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 ?? O: [Billable Units/Time] ?? (30995) Wheelchair Management: 55 min Pressure mapping completed [...] up with B UE's for having pressure crust sorter placed over, completed with CGA) +Sitting on [...] Recommend removing foam sole, and placing nonskid surface/lithopone mill worker bottom instead (lowest height possible) 4) [...] - thank you. Hallie Clay, PT ATP [phone] [email or web address] Printed above information for patient to bring with to his territory account representative as well as to his Ortho MD [...] stabilizer? Hallie Clay, PT ATP [place] License: #[id number] Pager: [phone] Office: [phone] ? Recertification Assessment of need for continued skilled physical therapy interventions: Patient continues to make steady progress toward short term and mcc goals which have been updated to reflect [...] Specific Question: Schedule with: Answer: HALLIE CLAY [[id number]] Order Specific Question: Number of Visits patient [...] Specific Question: Schedule with: Answer: HALLIE CLAY [[id number]] Order Specific Question: Number of Visits patient should be scheduled for? Answer: 1 Order Specific Question: Modalities and Procedures Answer: Procedures Order Specific Question: Procedure Answer: Functional Activities Order Specific Question: Procedure Answer: Neuromuscular Re-education Order Specific Question: Procedure Answer: Self Care/Home Management/ADL Order Specific Question: Procedure Answer: Wheelchair Management and Training Hallie Clay PT ATP Date [place] License: #[id number] Pager: [phone] Office: [phone] CLE DYNAMICS ENGINEER documented in this encounter Plan of Treatment Not on filedocumented as of this encounter Visit Diagnoses Diagnosis Quadriplegia () Quadriplegia, unspecified At high risk for skin breakdown Other specified conditions influencing h ealth status Impaired mobility Other ill-defined conditions documented in this encounter Care Teams Ignition Mechanic Relationship Specialty Start Date End Date Hallie Clay PT Physical Therapist Physical Therapy 04/05/[address] [place] [address] documented as of this encounter
--- OUTSIDE RECORDS SUMMARY | 2022-05-30 14:59 | XMS_ITS | Encounter Summary ---
:1955 Author Organization [facility] Address 1 [place] [address] Phone Care Team Providers Name Role Phone Lila Clay PT Unavailable Reason for Visit Prior Authorization (Routine) - Auth Not Needed Specialty Diagnoses / Procedures Referred By Contact Refer red To Contact Physical Medicine and Diagnoses Quadriplegia, unspecified Quadriplegia, C5-C7 incomplete Muscle spasticity [M62.838] (Reminder letter sent 09/29/21 cl) Zev Alvarez MD Rehab / NEUROLOGY EMG Procedures EMG - BOTOX [address] [address] [place] [address] Phone: Fax: Referral ID Status Reason Start Date Expiration Date Visits V isits Requested Authorized [id number] Auth Not 1 2 Needed Encounter Details Date Type Department Care Team Description 10/21/2021 Hospital Encounter Clinic & Specialty Zev Alvarez , Non Billable Center [facility] [address] [place] [address] 4 [place], [place] [phone] (Wo rk) Social History Tobacco Use Types [...] Name: Khanh Rene : 1955 Medical Record: [id number] History of Present Illness: 66 year old [...] to his right leg on 07/08/2019 at [facility] (Administered as 100 BF, 50 SM, 50 [...] and discussed with Dr. Kim Ash, PGY-5, [facility] Brain Injury Fellow Pager# [phone] Associated attestation - Zev Alvarez MD - [...] on filedocumented in this encounter Care Teams Human Resources Operations Director Relationship Specialty Start Date End Date Lila Clay, PT Physical Therapist Physical Therapy 04/05/[address] [place] [address] documented as of this encounter
--- OUTSIDE RECORDS SUMMARY | 2022-05-30 14:59 | XMS_ITS | Encounter Summary ---
:1955 Author Organization [facility] Address 1 [place] [address] Phone Care Team Providers Name Role Phone Lila Clay PT Unavailable Reason for Visit Prior Authorization (Routine) - Closed Specialty Diagnoses / Procedures Referred By Contact Refer red To Contact Physical Therapy / Diagnoses Quadriplegia () At high risk for skin breakdown Impaired mobility Provider, Outside Lila Clay, PHYSICAL MEDICINE AND Procedures PT TREATMENT PLAN OUTSIDE PROVIDER PT REHAB [address] [place] [address] Phone: Fax: Referral ID Status Reason Start Date Expiration Date Visits Requ ested Visits Authorized [id number] Closed 05/05/2021 01/20/2022 12 12 Encounter Details Date Type Department Care Team Description 09/01/2021 Hospital Encounter Clinic & Specialty Lila Clay, No [facility] Grocery Store Clerk apy PT [address] [place] [address] 4 [place], [place] [phone] Social History Tobacco Use Types Packs/Day Years [...] items have been addressed. Lila Clay PT [facility] License: #[id number] Pager: [phone] Office: [phone] INTERPRETER documented in this encounter Plan of Treatment Not on filedocumented as of this encounter Visit Diagnoses Not on filedocumented in this encounter Care Teams Still Photographer Relationship Specialty Start Date End Date Lila Clay, PT Physical Therapist Physical Therapy 04/05/21 [address] [place] [address] documented as of this encounter
--- OUTSIDE RECORDS SUMMARY | 2022-05-30 14:59 | XMS_ITS | Encounter Summary ---
:1955 Author Organization [facility] Address [address] [place] [address] Phone Care Team Providers Name Role Phone [...] on filedocumented in this encounter Care Teams Life Scientists Relationship Specialty Start Date End Date Lila Clay, PT Physical Therapist Physical Therapy 04/05/21 [address] [place] [address] documented as of this encounter
--- OUTSIDE RECORDS SUMMARY | 2022-05-30 14:59 | XMS_ITS | Encounter Summary ---
:1955 Author Organization [facility] Address [address] [place] [address] Phone Care Team Providers Name Role Phone Lila Clay PT Unavailable Reason for Visit Prior Authorization (Routine) - Closed Specialty Diagnoses / Procedures Referred By Contact Refer red To Contact Physical Therapy / Diagnoses Quadriplegia () At high risk for skin breakdown Impaired mobility Provider, Outside Lila Clay, PHYSICAL MEDICINE AND Procedures PT TREATMENT PLAN OUTSIDE PROVIDER PT REHAB [address] [address] Phone: Fax: Referral ID Status Reason Start Date Expiration Date Visits Requ ested Visits Authorized [id number] Closed 05/05/2021 01/20/2022 12 12 Encounter Details Date Type Department Care Team Description 08/11/2021 Hospital Encounter Clinic & Specialty Provider, Outside [place] [address] No Show Center Ell Teacher apy Lila Clay, PT [address] [place] [address] Social History Tobacco Use Types Packs/Day [...] request, with this therapist. Lila Clay PT [facility] License: #[id number] Pager: [phone] Office: [phone] SPOOLER TENDER documented in this encounter Plan of Treatment Not on filedocumented as of this encounter Visit Diagnoses Not on filedocumented in this encounter Care Teams Materials Specialist Relationship Specialty Start Date End Date Lila Clay, PT Physical Therapist Physical Therapy 04/05/21 [address] [place] [address] documented as of this encounter
--- OUTSIDE RECORDS SUMMARY | 2022-05-30 15:00 | XMS_ITS | Encounter Summary ---
:1955 Author Organization [facility] Address [address] [place] [address] Phone Care Team Providers Name Role Phone Provider, Outside Primary Care Provider Unavailable Encounter Details Date Type Department Care Team Description 01/02/2018 Nurse Triage Clinic & Specialty Center Farida Dueñas, operations liaison Clinic [address] [address] [place], [place] [address] Social History Tobacco Use Types [...] on filedocumented in this encounter Care Teams Repairer Welding Systems And Equipment Relationship Specialty Start Date End Date Provider, Outside PCP - General 03/13/09 10/22/18 [place] [address] documented as of this encounter
--- OUTSIDE RECORDS SUMMARY | 2022-05-30 15:00 | XMS_ITS | Encounter Summary ---
:[address] [facility] Address [address] [place] [address] Phone Care Team Providers Name Role Phone Provider, Outside Primary Care Provider Unavailable Reason for Visit Reason Comments Other Encounter Details Date Type Department Care Team Description 02/05/2016 Refill [facility] Monty Morales MD Other [address] [facility], [address] [address]40 4 [place] [address] [phone] (Wo rk) Social History Tobacco Use Types [...] on filedocumented in this encounter Care Teams Foreign Banknote Teller Trader Relationship Specialty Start Date End Date Provider, Outside PCP - General 03/13/09 10/22/18 [place] [address] documented as of this encounter
--- OUTSIDE RECORDS SUMMARY | 2022-05-30 15:00 | XMS_ITS | Encounter Summary ---
:1955 Author Organization [facility] Address [address] [place] [address] Phone Care Team Providers Name Role Phone Provider, Outside Primary Care Provider Unavailable Reason for Visit Reason Onset Date Comments Other 02/05/2016 Encounter Details Date Type Department Care Team Description 02/05/2016 Telephone [facility] Selena Garcia MD plan of care [place] [address] [address] [address] [facility], [address] [place] [address] [place], [place] [address] [phone] Social History Tobacco Use Types Packs/Day Years [...] filedocumented in this encounter Care Teams Electrical System Specialist Relationship Specialty Start Date End Date Provider, Outside PCP - General 03/13/09 10/22/18 [place] [address] documented as of this encounter
--- OUTSIDE RECORDS SUMMARY | 2022-05-30 15:00 | XMS_ITS | Encounter Summary ---
:1955 Author Organization 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 documented as of this encounter Plan of Treatment Not on filedocumented as of this encounter Visit Diagnoses Diagnosis Need for vaccination - Primary Need for prophylactic vaccination and in oculation against unspecified single disease documented in this encounter
--- OUTSIDE RECORDS SUMMARY | 2022-05-30 15:00 | XMS_ITS | Encounter Summary ---
:1955 Author Organization [facility] Address [address] [place] [address] Phone Care Team Providers Name Role Phone Provider, Outside Primary Care Provider Unavailable Encounter Details Date Type Department Care Team Description 10/21/2014 Telephone [facility] Omar Reyes MD [address] Research Only [place], [place] [address] Social History Tobacco Use Types [...] on filedocumented in this encounter Care Teams Fur Sorter Relationship Specialty Start Date End Date Provider, Outside PCP - General 03/13/09 10/22/18 [place] [address] documented as of this encounter
--- OUTSIDE RECORDS SUMMARY | 2022-05-30 15:00 | XMS_ITS | Encounter Summary ---
:1955 Author Organization [facility] Address [address] [place] [address] Phone Care Team Providers Name Role Phone Provider, Outside Primary Care Provider Unavailable Reason for Visit Reason Comments Other Encounter Details Date Type Department Care Team Description 05/22/2016 Refill [facility] Monty Morales MD Other [address] [facility], [address] 5540 4 [place] [address] [phone] (Wo rk) Social History Tobacco Use Types [...] received in Urology Clinic from the pt's [facility], for propantheline and nitrofurantoin. Records [...] documented in this encounter Care Teams Air Conditioning Equipment Mechanic Relationship Specialty Start Date End Date Provider, Outside PCP - General 03/13/09 10/22/18 [place] [address] documented as of this encounter
--- OUTSIDE RECORDS SUMMARY | 2022-05-30 15:00 | XMS_ITS | Encounter Summary ---
:1955 Author Organization [facility] Address 1 [place] [address] Phone Care Team Providers Name Role Phone Hallie Clay PT Unavailable Encounter Details Date Type Department Care Team Description 05/05/2021 Hospital Encounter Clinic & Specialty Alex [place] [address] [place] [address] [place] [address] Center E Commerce Marketing Analyst apy Hallie Clay, PT [address] 55[address] Social History Tobacco Use Types [...] Provider: Dr. Alex Mata, MD Yamile Conway, CALL WORKER PERSON Current Precautions/Contraindications: At high risk for skin breakdown, s/p flap surgery, current pressure injuries on feet [facility] Industry Consultant: no DIAGNOSIS Patient Active Problem List Diagnosis [...] prefer to work is [employer]AN[employer]ITA [employer] of [employer]. The vendor is not present during today's evaluation. 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 He has utilized a manual wheelchair as his primary means of mobility since then. He has a significant pressure injury history, including on his sacral area and feet. He received his current MWC through [employer] on 10/06/20. SUBJECTIVE Patient Complaints: I just [...] Function: Randy will cont to use his [facility] and rehab accessories to complete all MRADL's, [...] independently (with hand controls) while seated in [facility]) Does it fold/disassemble for transportation?: Yes Is [...] Flexion Elbow Extension Wrist Flexion Wrist Extension Oncology Patient Navigator Using BERNY hand dynamometer Lower Extremity Right MMT Left MMT WFL 0/5 0/5 Hip Flexion Hip Extension Hip Abduction Knee Flexion Knee Extension Dorsiflexion Inversion Eversion Plantar Flexion Great toe extension Normative car wiper strength values for Berny dynamometer for clinical [...] the wheelchair/mobility device?: Yes Wheelchair Management/Training (CPT 43209): 15 min during session(s) Pressure mapping completed [...] Specific Question: Schedule with: Answer: HALLIE CLAY [[id number]] Order Specific Question: Number of Visits patient [...] conditions documented in this encounter Care Teams Special Service Representative Relationship Specialty Start Date End Date Hallie Clay, PT Physical Therapist Physical Therapy 04/05/21 [address] [place] [address] documented as of this encounter
--- OUTSIDE RECORDS SUMMARY | 2022-05-30 15:00 | XMS_ITS | Encounter Summary ---
:1955 Author Organization [facility] Address 1 [place] [address] Phone Care Team Providers Name Role Phone Provider, Outside Primary Care Provider Unavailable Reason for Visit Reason Onset Date Comments Refill Request 12/23/2016 Encounter Details Date Type Department Care Team Description 12/23/2016 Refill [facility] Divya Caraballo RN Refill Request [address] [facility] [place], [place] [address] 4 [place] [address] Social History Tobacco Use Types Packs/Day Years [...] on filedocumented in this encounter Care Teams Marine Welder Relationship Specialty Start Date End Date Provider, Outside PCP - General 03/13/09 10/22/18 [place] [address] documented as of this encounter
--- OUTSIDE RECORDS SUMMARY | 2022-05-30 15:00 | XMS_ITS | Encounter Summary ---
:1955 Author Organization [facility] Address [address] [place], [place] [address]e. [place] [address] Phone Care Team Providers Name Role Phone Provider, Outside Primary Care Provider Unavailable Reason for Visit Reason Comments Follow-up Encounter Details Date Type Department Care Team Description 06/06/2013 Office Visit [facility] [place] [place] [facility] Omar Savage, Neurog enic bladder Yordy FALCON (Primary Dx) [address] [place], [place] [address] Social History Tobacco Use Types [...] Comments Blood Pressure 88/58 06/06/2013 11:33 AM POWER SYSTEM OPERATOR Pulse 79 06/06/2013 11:33 AM POWER SYSTEM OPERATOR Temperature 36.8 ??C (98.2 ??F) 06/06/2013 11:33 AM POWER SYSTEM OPERATOR Respiratory Rate - - Oxygen Saturation - - Inhaled Oxygen Concentration - - Weight - - Height - - Body Mass Index - - documented in this encounter Patient Instructions Patient InstructionsOmar Savage MD - 06/06/2013 11:42 AM CST [facility] R SYSTEM OPERATOR documented in this encounter Progress Notes Omar Savage MD - 06/08/2013 8:17 AM CST [facility] [address], [address] [place] [address] (fax) [facility]#: [id number] PATIENT: MICHEAL FLETCHER : 1955 DATE: 06/06/2013 [...] MD Staff Physician Surgery Service Received in Manager Of Allied Health Services: 06/08/2013 05:34 M: 06/08/2013 08:17 filiberto STEWART/filiberto Voice ID: [id number] Document ID: [id number] R SYSTEM OPERATOR Omar Savage MD - 06/08/2013 5:32 AM CST This office note has been dictated. R SYSTEM OPERATOR documented in this encounter Plan of Treatment Not on filedocumented as of this encounter Visit Diagnoses Diagnosis Neurogenic bladder - Primary Neurogenic bladder, NOS documented in this encounter Care Teams Rail Express Clerk Relationship Specialty Start Date End Date Provider, Outside PCP - General 03/13/09 10/22/18 [place] [address] documented as of this encounter
--- OUTSIDE RECORDS SUMMARY | 2022-05-30 15:00 | XMS_ITS | Encounter Summary ---
:1955 Author Organization [facility] Address [address] [place] [address] Phone Care Team Providers Name Role Phone Provider, Outside Primary Care Provider Unavailable Encounter Details Date Type Department Care Team Description 09/07/2012 Letters(Tab) [facility] Omar Reyes MD [address] [place] [address], [address] Research Only [place], [place] [address] Social History Tobacco Use Types Packs/Day Years Used Date Smoking Tobacco: Former Cigarettes Cigars Smokeless Tobacco: Never Alcohol Use Standard Drinks/Week Comments Yes 3.3 (1 standard drink = 0.6 oz pure alco hol) once in while Sex Assigned at Date Recorded Not on file documented as of this encounter Progress Notes Omar Savage MD - 09/07/2012 7:45 AM CST [facility] [address] [place], [place] [address] September 07, 2012 TO: Micheal Fletcher [address] [address] [address] RE:MICHEAL FLETCHER MR#:[id number] :1955 Dear Mr. Fletcher: From your recent Urology Clinic visit, your urine culture grew only mixed gram-positive organisms, which are not considered an infection. Please feel free to contact me for questions. Best wishes. Looking forward to seeing you at your next scheduled visit. Sincerely, Omar Savage MD Staff Physician Surgery Service Received in Quality Assurance Coach: 09/07/2012 07:32 M: 09/07/2012 07:45 cn CS/cn Voice ID: [id number] Document ID: [id number] cc:MICHEAL FLETCHER [id number] [place] [address] DEVELOPER DESIGNER documented in this encounter Plan of Treatment Not on filedocumented as of this encounter Visit Diagnoses Not on filedocumented in this encounter Care Teams Direct Marketing Specialist Relationship Specialty Start Date End Date Provider, Outside PCP - General 03/13/09 10/22/18 [place] [address] documented as of this encounter
--- OUTSIDE RECORDS SUMMARY | 2022-05-30 15:00 | XMS_ITS | Encounter Summary ---
:1955 Author Organization [facility] Address [address] [place] [address] Phone Care Team Providers Name Role Phone Unavailable Primary Care Provider Unavailable Reason for Visit Reason Onset Date Comments Refill Request 04/03/2020 Encounter Details Date Type Department Care Team Description 04/03/2020 Refill [facility] Monty Garcia MD Refill Request Urology Clinic [address] [place] [id number] [place] [address] [phone] Social History Tobacco Use Types Packs/Day Years [...]
--- OUTSIDE RECORDS SUMMARY | 2022-05-30 15:00 | XMS_ITS | Encounter Summary ---
:1955 Author Organization [facility] Address [address] [place] [address] Phone Care Team Providers Name Role Phone Provider, Outside Primary Care Provider Unavailable Reason for Visit Reason Onset Date Comments Refill Request 10/22/2014 Encounter Details Date Type Department Care Team Description 10/22/2014 Refill [facility] [place] U[facility] Tree Vaughan, Refill Request [address] [facility], [address] [place], [place] [address] [address] [place] [address] [address] [place], [place] [address] (Wo rk) Social History Tobacco Use Types [...] NOS documented in this encounter Care Teams Commercial Fisher Relationship Specialty Start Date End Date Provider, Outside PCP - General 03/13/09 10/22/18 [place] [address] documented as of this encounter
--- OUTSIDE RECORDS SUMMARY | 2022-05-30 15:00 | XMS_ITS | Encounter Summary ---
:1955 Author Organization [facility] Address [address] [place] [address] Phone Care Team Providers Name Role Phone Lila Clay PT Unavailable Reason for Visit Prior Authorization (Routine) - Closed Specialty Diagnoses / Procedures Referred By Contact Refer red To Contact Physical Therapy / Diagnoses Quadriplegia () At high risk for skin breakdown Impaired mobility Provider, Outside Lila Clay, PHYSICAL MEDICINE AND Procedures PT TREATMENT PLAN OUTSIDE PROVIDER [facility] [address] [address] Phone: Fax: Referral ID Status Reason Start Date Expiration Date Visits Requ ested Visits Authorized [id number] Closed 05/05/2021 01/20/2022 12 12 Encounter Details Date Type Department Care Team Description 06/09/2021 Hospital Encounter Clinic & Specialty Provider, Outside OUTSIDE PROVIDER [address] Grain Unloader Machine apy Lila Clay, PT [id number] [place] [address] Social History Tobacco Use Types Packs/Day [...] Hospitalization: None Referring Provider: MD Yamile Alves, SOCIAL CONTACT WORKER ?? Current Precautions/Contraindications: At high risk for skin breakdown, s/p flap surgery, current pressure injuries on feet [facility] [place] Lan Manager: no Patient gave two identifiers for Check 2 for Safety Total Treatment Time: 70 Min Pain: No significant complaints during session S: Pt presents to his PT session in his MWC, independently. Also present: Matthew Ricketts/[employer]. Last 30 min of the session, patient's QRC (Raquel Gamino, RN, PHN, MA P: [phone], F: [phone]) No significant changes; still attends wound clinic for B foot injuries weekly - missed yesterday so will be seen later this week. Pt agreed that he would like to try to adjust 1-2 items at a time; assess tolerance, and then move forward with additional changes as appropriate. Noticed that additional 'dump' is 'different' but tolerable. O: [Billable Units/Time] (69652) Wheelchair Management: 70 min Pt remained in [...] by 2? *Will request a demo from [facility], as PT looked and did not [...] require a new back frame to the [facility], but would provide [...] to be able to transfer in/out of [facility] independently. At end [...] date include: Increased posterior seat dump on [facility] this date and [...] be obtained before then? Lila Clay PT [facility] License: #[id number] Pager: [phone] Office: [phone] RAL AIR MARSHAL documented in this encounter Plan of Treatment Not on filedocumented as of this encounter Visit Diagnoses Not on filedocumented in this encounter Care Teams Boiler House Mechanic Relationship Specialty Start Date End Date Lila Clay, PT Physical Therapist Physical Therapy 04/05/21 [address] [place] [address] documented as of this encounter
--- OUTSIDE RECORDS SUMMARY | 2022-05-30 15:00 | XMS_ITS | Encounter Summary ---
:1955 Author Organization [facility] Address [address] [place] [address] Phone Care Team Providers Name Role Phone Provider, Outside Primary Care Provider Unavailable Encounter Details Date Type Department Care Team Description 10/07/2016 Hospital Encounter [facility] [place] Monty Garcia MD [address] [place] [address] [address] [place], [place] [id number] (Wo rk) Social History Tobacco Use Types [...] NOS documented in this encounter Care Teams Track Laying Machine Operator Relationship Specialty Start Date End Date Provider, Outside PCP - General 03/13/09 10/22/18 [place] [address] documented as of this encounter
--- OUTSIDE RECORDS SUMMARY | 2022-05-30 15:00 | XMS_ITS | Encounter Summary ---
:1955 Author Organization [facility] 3[facility] Address [address] [place] [address] Phone Care Team Providers Name Role Phone Provider, Outside Primary Care Provider Unavailable Reason for Visit Reason Comments Other Encounter Details Date Type Department Care Team Description 01/17/[address] [facility] [place] Omar Reyes MD [address] [facility], [address] Research Only [place], [place] [address] Social History Tobacco Use Types [...] Outside Provider Comment: Expects Return Call at: [phone] documented in this encounter Plan of Treatment Not on filedocumented as of this encounter Visit Diagnoses Not on filedocumented in this encounter Care Teams Post Commander Relationship Specialty Start Date End Date Provider, Outside PCP - General 03/13/09 10/22/18 [place] [address] documented as of this encounter
--- OUTSIDE RECORDS SUMMARY | 2022-05-30 15:00 | XMS_ITS | Encounter Summary ---
:1955 Author Organization [facility] Address [address] [place] [address] Phone Care Team Providers Name Role Phone Unavailable Primary Care Provider Unavailable Encounter Details Date Type Department Care Team Description 08/18/2020 Orders Only [facility] Viral Cl Jonathan Sierra MD COVID-19 [address] [facility] [address] [facility] G5 [place], [place] [address] [place], [place] [id number] (Wo rk) Social History Tobacco Use Types [...] with No / Unsure 08/20/2020 3:15 PM COMMERCIAL TIRE SERVICE TECHNICIAN someone who was confirmed or suspected to have Coronavirus / COVID-19? documented as of this encounter Plan of Treatment Not on filedocumented as of this encounter Visit Diagnoses Diagnosis COVID-19 documented in this encounter
--- OUTSIDE RECORDS SUMMARY | 2022-05-30 15:00 | XMS_ITS | Encounter Summary ---
:1955 Author Organization [facility] Address [address] [place] [address] Phone Care Team Providers Name Role Phone Lila Clay PT Unavailable Reason for Visit Prior Authorization (Routine) - Closed Specialty Diagnoses / Procedures Referred By Contact Refer red To Contact Physical Therapy / Diagnoses Quadriplegia () At high risk for skin breakdown Impaired mobility Provider, Outside Lila Clay, PHYSICAL MEDICINE AND Procedures PT TREATMENT PLAN OUTSIDE PROVIDER PT [facility] [address] [address] Phone: Fax: Referral ID Status Reason Start Date Expiration Date Visits Requ ested Visits Authorized [id number] Closed 05/05/2021 01/20/2022 12 12 Encounter Details Date Type Department Care Team Description 06/02/2021 Hospital Encounter Clinic & Specialty Provider, Outside OUTSIDE PROVIDER [address] Brick Setter apy Lila Clay, PT [phone] [place] [address] Social History Tobacco Use Types Packs/Day [...] Hospitalization: None Referring Provider: MD Yamile Alves, MARBLE INSTALLER SUPERVISOR ?? Current Precautions/Contraindications: At high risk for skin breakdown, s/p flap surgery, current pressure injuries on feet [facility] Technical Project Coordinator: no Patient gave two identifiers for Check [...] additional changes as appropriate. O: [Billable Units/Time] (95633) Wheelchair Management: 60 min Transfer MWC/mat table [...] passive IR/ER WNL. Adjustments made to patient's [facility] this date: +Increased posterior seat dump by 1 +lowered footplates B by approximately 1 Pt returned to sitting in [facility] at end of session, able to self [...] Clay, PT [employer] [place] License: #[id number] Pager: [phone] Office: [phone] ERPRINT EXPERT documented in this encounter Plan of Treatment Not on filedocumented as of this encounter Visit Diagnoses Not on filedocumented in this encounter Care Teams Pushcart Peddler Relationship Specialty Start Date End Date Lila Clay, PT Physical Therapist Physical Therapy 04/05/[address] [place] [address] documented as of this encounter
--- OUTSIDE RECORDS SUMMARY | 2022-05-30 15:00 | XMS_ITS | Encounter Summary ---
:1955 Author Organization [facility] Address [address] [place] [address] Phone Care Team Providers Name Role Phone Provider, Outside Primary Care Provider Unavailable Reason for Visit Reason Onset Date Comments Refill Request 09/05/2013 macrodantin Encounter Details Date Type Department Care Team Description 09/05/2013 Refill [facility] U[facility] Clinic Omar Savage MD Refill Request [facility] Only (macrodantin) [address], [address] [place], [place] [address] Social History Tobacco Use Types [...] Savage, med send to to co sign. CLOTH EXAMINER documented in this encounter Plan of Treatment Not on filedocumented as of this encounter Visit Diagnoses Diagnosis Neurogenic bladder - Primary Neurogenic bladder, NOS documented in this encounter Care Teams Sanitary Inspector Relationship Specialty Start Date End Date Provider, Outside PCP - General 03/13/09 10/22/18 [place] [address] documented as of this encounter
--- OUTSIDE RECORDS SUMMARY | 2022-05-30 15:00 | XMS_ITS | Encounter Summary ---
:1955 Author Organization [facility] Address [address] [place] [address] Phone Care Team Providers Name Role Phone Provider, Outside Primary Care Provider Unavailable Reason for Visit Reason Onset Date Comments Refill Request 10/06/2016 re: Macrodantin Encounter Details Date Type Department Care Team Description 10/06/2016 Telephone [facility] Urology Clinic Divya Avendano Refi ll Request (re: Yordy ASH Macrodantin) [address] [place], [place] [address] [place], [place] [phone] [address] Social History Tobacco Use Types Packs/Day Years [...] on filedocumented in this encounter Care Teams Tissue Specialist Relationship Specialty Start Date End Date Provider, Outside PCP - General 03/13/09 10/22/18 [place] [address] documented as of this encounter
--- OUTSIDE RECORDS SUMMARY | 2022-05-30 15:00 | XMS_ITS | Encounter Summary ---
:1955 Author Organization [facility] Address [address] [place] [address] Phone Care Team Providers Name Role Phone Provider, Outside Primary Care Provider Unavailable Reason for Visit Reason Onset Date Comments Refill Request 12/27/2017 propantheline Medication Refill 01/08/2018 propantheline Encounter Details Date Type Department Care Team Description 12/27/2017 Refill Clinic & Specialty Monty Garcia MD Refill Request Center Urology Clini c 701 [facility] P5 (propantheline); [address] Medication Refill [place], [place] [phone] (propantheline) [phone] (Wo rk) Social History Tobacco Use Types [...] generic message for pt to call the [facility] and ask for a RN. [...] chart- no MITCHELL on file. Wale Russell show card writer does have message to pass along, but no MITCHELL in the chart and cannot share info due to HIPPA. Charlene Russell said she understood. She requested we call [facility] and let him know the response. Rail Bonder called Khanh and no answer. Left message [...] Center 02/01/2018 2:00 PM Monty Garcia MD [facility] [place] [facility] documented in this encounter Plan of Treatment Not on filedocumented as of this encounter Visit Diagnoses Not on filedocumented in this encounter Care Teams Tub Washer Relationship Specialty Start Date End Date Provider, Outside PCP - General 03/13/09 10/22/18 [place] [address] documented as of this encounter
--- OUTSIDE RECORDS SUMMARY | 2022-05-30 15:00 | XMS_ITS | Encounter Summary ---
:1955 Author Organization [facility] Address [address] [place] [address] Phone Care Team Providers Name Role Phone Unavailable Primary Care Provider Unavailable Encounter Details Date Type Department Care Team Description 08/20/2020 Immunization [facility] Viral Clinic Jonathan Chu MD [address] [address] COVID-19; [address] Nurse, [facility] Vaccine 701 [place] [address] Need for vaccination [place], [place] [address] Social History Tobacco Use Types [...]
--- OUTSIDE RECORDS SUMMARY | 2022-05-30 15:00 | XMS_ITS | Encounter Summary ---
:1955 Author Organization [facility] Address [address] [place] [address] Phone Care Team Providers Name Role Phone Provider, Outside Primary Care Provider Unavailable Reason for Visit Reason Comments Follow-up NEUROGENIC BLADDER Encounter Details Date Type Department Care Team Description 09/15/2016 Office Visit [facility] [place] [facility] Monty Garcia Neur ogenic bladder Yordy FALCON (Primary Dx) [address] [place] [address] [address] [place], [place] [address] [phone] Social History Tobacco Use Types Packs/Day Years [...] Comments Blood Pressure 129/74 09/15/2016 8:09 AM GUN NUMBERER Pulse 75 09/15/2016 8:09 AM GUN NUMBERER Temperature 36.2 ??C (97.1 ??F) 09/15/2016 8:09 AM GUN NUMBERER Respiratory Rate - - Oxygen Saturation - [...] fevers. Patient has had several admissions at [facility] for decubitus ulcers in the last [...] MD, 09/15/2016 9:14 AM Urology Staff Pager: [phone] NUMBERER documented in this encounter Plan of Treatment Not on filedocumented as of this encounter Visit Diagnoses Diagnosis Neurogenic bladder - Primary Neurogenic bladder, NOS documented in this encounter Care Teams Cherry Sorter Relationship Specialty Start Date End Date Provider, Outside PCP - General 03/13/09 10/22/18 [place] [address] documented as of this encounter
--- OUTSIDE RECORDS SUMMARY | 2022-05-30 15:00 | XMS_ITS | Encounter Summary ---
:1955 Author Organization [facility] Address [address] [place] [address] Phone Care Team Providers Name Role Phone Unavailable Primary Care Provider Unavailable Reason for Visit Reason Comments Other Encounter Details Date Type Department Care Team Description 03/27/2020 Refill Clinic & Specialty Center Monty Garcia MD Other Urology Clinic [address] [place] [address] [place] [address] 55 [phone] Social History Tobacco Use Types Packs/Day Years [...]
--- OUTSIDE RECORDS SUMMARY | 2022-05-30 15:00 | XMS_ITS | Encounter Summary ---
:[address] [facility] Address [address] [place] [address] Phone Care Team Providers Name Role Phone Unavailable Primary Care Provider Unavailable Reason for Visit Reason Onset Date Comments Refill Request 03/22/2019 propanthelin Encounter Details Date Type Department Care Team Description 03/22/2019 Refill Clinic & Specialty Monty Garcia MD Refill Request Center Urology Clini c 701 [facility] P5 (propanthelin) [address] [phone] (Wo rk) Social History Tobacco Use Types [...]
--- OUTSIDE RECORDS SUMMARY | 2022-05-30 15:00 | XMS_ITS | Encounter Summary ---
:1955 Author Organization [facility] Address [address] [place] [address] Phone Care Team Providers Name Role Phone Provider, Outside Primary Care Provider Unavailable Reason for Visit Reason Comments Bladder Problem Encounter Details Date Type Department Care Team Description 01/26/[address] [facility] Urology Clinic Monty Garcia Neur ogenic bladder Yordy FALCON (Primary Dx) [address] [facility] P5 [address] [place], [place] [phone] Social History Tobacco Use Types Packs/Day Years [...] - 01/26/2015 4:13 PM [address] [facility]: NEW PATIENT/CONSULT VISIT Khanh Rene : [...] NOS documented in this encounter Care Teams Substance Addiction Coordinator Relationship Specialty Start Date End Date Provider, Outside PCP - General 03/13/09 10/22/18 [place] [address] documented as of this encounter
--- OUTSIDE RECORDS SUMMARY | 2022-05-30 15:00 | XMS_ITS | Encounter Summary ---
:1955 Author Organization [facility] Address [address] [place] [address] Phone Care Team Providers Name Role Phone Provider, Outside Primary Care Provider Unavailable Reason for Visit Reason Onset Date Comments Other 2018 Encounter Details Date Type Department Care Team Description 2018 Telephone Clinic & Specialty Monty Garcia MD Appointment Center Urology Clini c 701 [facility] P5 Cancellation [address] [phone] (Wo rk) Social History Tobacco Use Types [...] on filedocumented in this encounter Care Teams Trust Operations Assistant Relationship Specialty Start Date End Date Provider, Outside PCP - General 8/21/09 4/1/19 [place] [address] documented as of this encounter
--- OUTSIDE RECORDS SUMMARY | 2022-05-30 15:00 | XMS_ITS | Encounter Summary ---
:1955 Author Organization [facility] Address [address] [place] [address] Phone Care Team Providers Name Role Phone Provider, Outside Primary Care Provider Unavailable Reason for Visit Reason Onset Date Comments Refill Request 01/12/2018 Encounter Details Date Type Department Care Team Description 01/12/2018 Refill Clinic & Specialty Center Monty Garcia MD Refill Request Urology Clinic [address] [place] [address] [address] [place], [place] [address] [phone] Social History Tobacco Use Types Packs/Day Years [...] on filedocumented in this encounter Care Teams Pulpwood Cutter Relationship Specialty Start Date End Date Provider, Outside PCP - General 03/13/09 10/22/18 [place] [address] documented as of this encounter
--- OUTSIDE RECORDS SUMMARY | 2022-05-30 15:00 | XMS_ITS | Encounter Summary ---
:1955 Author Organization [facility] Address [address] [place] [address] Phone Care Team Providers Name Role Phone Provider, Outside Primary Care Provider Unavailable Reason for Visit Reason Onset Date Comments Medication Problem 01/10/2018 propantheline Encounter Details Date Type Department Care Team Description 01/10/2018 Nurse Triage Clinic & Specialty [facility] Center Urology Clini c (propantheline) [address] [place] [address] [place] [address] [place], [place] [phone] Social History Tobacco Use Types Packs/Day Years [...] to me for years A-upon review of [facility] is was found that Dr Garcia has [...] or severe? n/a Protocols used: MEDICATION QUESTION [id number] documented in this encounter Plan of Treatment Not on filedocumented as of this encounter Visit Diagnoses Not on filedocumented in this encounter Care Teams Office Coordinator Relationship Specialty Start Date End Date Provider, Outside PCP - General 03/13/09 10/22/18 [place] [address] documented as of this encounter
--- OUTSIDE RECORDS SUMMARY | 2022-05-30 15:00 | XMS_ITS | Encounter Summary ---
:1955 Author Organization [facility] Address [address] [place] [address] Phone Care Team Providers Name Role Phone Provider, Outside Primary Care Provider Unavailable Reason for Visit Reason Onset Date Comments Medication Refill 11/11/2016 propantheline (PRO-B ANTHINE) Encounter Details Date Type Department Care Team Description 11/11/2016 Refill [facility] U[facility] Clinic Selena Garcia MD Medication Refill [place] 701 [facility] P5 (propantheline [address] [place], [place] (PRO-BANTHINE) ) [place], [place] [phone] (Wo rk) Social History Tobacco Use Types [...] mg oral tablet Pharmacy Name and Location: [facility] [address] [place] [phone] - [phone] - [address] [place] [address] Phone number for return call: .[phone] Did caller contact the pharmacy? yes: pharmacy [...] on filedocumented in this encounter Care Teams Sou[address] Street Vendor Relationship Specialty Start Date End Date Provider, Outside PCP - General 03/13/09 10/22/18 [place] [address] documented as of this encounter
--- OUTSIDE RECORDS SUMMARY | 2022-05-30 15:00 | XMS_ITS | Encounter Summary ---
:1955 [address] [facility] Address [address] [place] [address] Phone Care Team Providers Name Role Phone Provider, Outside Primary Care Provider Unavailable Reason for Visit Reason Comments Follow-up Encounter Details Date Type Department Care Team Description 09/03/[address] [facility] Pooja Krueger MD [address] [facility] [address] [place], [place] [id number] Neurogenic bladder [place] Omar Savage MD Research Only (Primary Dx) [address], [address] [place], [place] [address] Social History Tobacco Use [...] Comments Blood Pressure 112/64 09/03/2012 1:52 PM HOME SECURITY ALARM INSTALLER Pulse 68 09/03/2012 1:52 PM HOME SECURITY ALARM INSTALLER Temperature - - Respiratory Rate - - Oxygen Saturation - - Inhaled Oxygen Concentration - - Weight - - Height - - Body Mass Index - - documented in this encounter Progress Notes Omar Savage MD - 09/04/2012 8:32 PM CST [facility] [address] [facility], [address] [place] [address] (fax) [facility]#: [id number] PATIENT: MICHEAL RENE : 1955 DATE: 09/03/2012 [...] MD Staff Physician Surgery Service Received in Valuation Manager: 09/04/2012 12:20 M: 09/04/2012 20:32 [facility]/ Voice ID: [id number] Document ID: [id number] SECURITY ALARM INSTALLER Omar Savage MD - 09/04/2012 12:19 PM CST This office note has been dictated. SECURITY ALARM INSTALLER documented in this encounter Plan of Treatment Not on filedocumented as of this encounter Procedures Procedure Name Priority Date/Time Associated Diagnosis Comme nts URINE CULTURE Routine 09/03/2012 2:22 PM Neurogenic bladder Re sults for this HOME SECURITY ALARM INSTALLER procedure are i n the results section. URINALYSIS,TOTAL Routine 09/03/2012 2:22 PM Neurogenic bladder Results for this HOME SECURITY ALARM INSTALLER procedure are i n the results section. documented in this encounter Results URINE CULTURE (09/03/2012 2:22 PM HOME SECURITY ALARM INSTALLER) [facility] Method Time Signature Urine Cult [facility] ? PROCEDURE: MB Urine Culture ?SOURCE: Urine Midstream ?COLLECTED: 09/03/2012 14:22 ? BODY SITE: ?FREE TEXT SOURCE: ?STARTED: 09/03/2012 15:35 ? FINAL REPORT Final Report Verified:09/05/2012 13:06 50,000 - 100,000 organisms/ml Mixed gram positive arthur. No further work-up. Specimen Anatomical Collection Method Collection Time Receive d Time (Source) Location / / Volume Laterality Urine Midstream. 09/03/2012 2:22 PM 09/03 3:34 (Urine) HOME SECURITY ALARM INSTALLER PM HOME SECURITY ALARM INSTALLER Omar Savage MD LAB MICROBIOLOGY Performing Organization Address City/State/ZIP Code Phon e Number [facility] [place] [address] (ABNORMAL) URINALYSIS, TOTAL (09/03/2012 2:22 PM HOME SECURITY ALARM INSTALLER) athologist Signature Color YELLOW YELLOW [facility] Appearance CLEAR CLEAR [facility] Urine Glucose NEGATIVE NEGATIVE [facility] Bili UA NEGATIVE NEGATIVE [facility] Comment: Confirmatory test not available . Ketones NEGATIVE NEGATIVE [facility] Specific [place] 1.016 1.003 - 1.030 [facility] Blood Ur NEGATIVE Neg-Trace [facility] PH Urine 6.5 5.0 - 7.0 [facility] Protein Ur NEGATIVE Neg-Trace [facility] Urobilinogen 1.0 0.2 - 1.0 EU/dL [facility] Nitrite Ur NEGATIVE NEGATIVE [facility] Leuk Est SMALL (A) Neg-Trace [facility] WBC Ur 6-20 (A) 0 - [address] [facility] RBC Ur 0-5 0 - [address] [facility] SQ EPITH 2+ 1+ [facility] Specimen Anatomical Collection Method Collection Time Receive d Time (Source) Location / / Volume Laterality Urine 09/03/2012 2:22 PM 3 2:51 HOME SECURITY ALARM INSTALLER PM HOME SECURITY ALARM INSTALLER Omar Savage MD LABORATORY Performing Organization Address City/State/ZIP Code Phon e Number [facility] [place] [address] documented in this encounter Visit Diagnoses Diagnosis Neurogenic bladder - Primary Neurogenic bladder, NOS documented in this encounter Care Teams Assistant Professor Of Physics Relationship Specialty Start Date End Date Provider, Outside PCP - General 03/13/09 10/22/18 [place] [address] documented as of this encounter
--- OUTSIDE RECORDS SUMMARY | 2022-05-30 15:00 | XMS_ITS | Encounter Summary ---
:1955 Author Organization [facility] Address [address] [place] [address] Phone Care Team Providers Name Role Phone Provider, Outside Primary Care Provider Unavailable Encounter Details Date Type Department Care Team Description 02/05/2016 Orders Only [facility] [place] [facility] Monty Garcia, Neur ogenic bladder Yordy FALCON (Primary Dx) [address], [address] [facility] [address] [place], [place] [id number] Social History Tobacco Use Types Packs/Day Years [...] NOS documented in this encounter Care Teams Corncob Pipe Manufacturing Supervisor Relationship Specialty Start Date End Date Provider, Outside PCP - General 03/13/09 10/22/18 [place] [address] documented as of this encounter
--- OUTSIDE RECORDS SUMMARY | 2022-05-30 15:00 | XMS_ITS | Encounter Summary ---
:1955 Author Organization [facility] Address [address] [place] [address] Phone Care Team Providers Name Role Phone [...] with No / Unsure 08/20/2020 3:15 PM RISK MANAGEMENT MANAGER someone who was confirmed or suspected to have Coronavirus / COVID-19? documented as of this encounter Plan of Treatment Not on filedocumented as of this encounter Visit Diagnoses Not on filedocumented in this encounter
--- OUTSIDE RECORDS SUMMARY | 2022-05-30 15:00 | XMS_ITS | Encounter Summary ---
:1955 Author Organization [facility] Address [address] [place] [address] Phone Care Team Providers Name Role Phone Provider, Outside Primary Care Provider Unavailable Reason for Visit Reason Onset Date Comments Refill Request 07/05/2016 Encounter Details Date Type Department Care Team Description 07/05/2016 Refill [facility] Divya Caraballo RN Refill Request [address] [facility], [address] [place], [place] [address] [place] [address] Social History Tobacco Use Types Packs/Day Years [...] NOS documented in this encounter Care Teams Wooden Frame Builder Relationship Specialty Start Date End Date Provider, Outside PCP - General 03/13/09 10/22/18 [place] [address] documented as of this encounter
--- OUTSIDE RECORDS SUMMARY | 2022-05-30 15:00 | XMS_ITS | Encounter Summary ---
:1955 Author Organization [facility] Address [address] [place] [address] Phone Care Team Providers Name Role Phone Provider, Outside Primary Care Provider Unavailable Reason for Visit Reason Onset Date Comments Refill Request 09/05/2016 Encounter Details Date Type Department Care Team Description 09/05/2016 Refill [facility] U[facility] Clinic Divya Caraballo RN Refill Request [address] [facility], [address] [place], [place] [address] 4 [place] [address] Social History Tobacco Use Types Packs/Day Years [...] NOS documented in this encounter Care Teams Strand Buncher Fine Wire Relationship Specialty Start Date End Date Provider, Outside PCP - General 03/13/09 10/22/18 [place] [address] documented as of this encounter
--- OUTSIDE RECORDS SUMMARY | 2022-05-30 15:00 | XMS_ITS | Encounter Summary ---
:1955 Author Organization [facility] Address [address] [place] [address] Phone Care Team Providers Name Role Phone Provider, Outside Primary Care Provider Unavailable Reason for Visit Reason Comments Other Encounter Details Date Type Department Care Team Description 02/20/2013 Telephone [facility] Omar Reyes MD [address] [facility], [address] Research Only [place], [place] [address] Social History Tobacco Use Types [...] - 02/20/2013 10:[address] Husesin Giron to refill Pro-Banthine. VORB Notified [facility] pharmacy at [phone]. Telephone Encounter - Danna Alvarez RN - [...] verbal refill request for Propantheline. Please call [phone] Expects Return Call at: ------ documented in this encounter Plan of Treatment Not on filedocumented as of this encounter Visit Diagnoses Not on filedocumented in this encounter Care Teams Communications Coordinator Relationship Specialty Start Date End Date Provider, Outside PCP - General 03/13/09 10/22/18 [place] [address] documented as of this encounter
--- OUTSIDE RECORDS SUMMARY | 2022-05-30 15:00 | XMS_ITS | Encounter Summary ---
:1955 Author Organization [facility] Address [address] [place] [address] Phone Care Team Providers Name Role Phone Provider, Outside Primary Care Provider Unavailable Reason for Visit Reason Comments Follow-up Encounter Details Date Type Department Care Team Description 02/14/2011 Office Visit [facility] [place] Phys Med/Rehab Sameera Frances D ecubitus ulcer Clinic (Primary Dx) [address] [facility] [address] [place], [place] [address] [place], [place] [phone] (Wo rk) Social History Tobacco Use Types [...] site documented in this encounter Care Teams Sonoscope Operator Relationship Specialty Start Date End Date Provider, Outside PCP - General 03/13/09 10/22/18 [place] [address] documented as of this encounter
--- OUTSIDE RECORDS SUMMARY | 2022-05-30 15:00 | XMS_ITS | Encounter Summary ---
:[address] [facility] Address [address] [place] [address] Phone Care Team Providers Name Role Phone Provider, Outside Primary Care Provider Unavailable Reason for Visit Reason Onset Date Comments Refill Request 12/17/2013 Propantheline Encounter Details Date Type Department Care Team Description 12/17/2013 Refill [facility] Omar Savage MD Refill Request [facility] (Propantheline) [address] [facility], [address] [place], [place] [address] Social History Tobacco Use Types [...] on filedocumented in this encounter Care Teams Oim Architect Relationship Specialty Start Date End Date Provider, Outside PCP - General 03/13/09 10/22/18 [place] [address] documented as of this encounter
--- OUTSIDE RECORDS SUMMARY | 2022-05-30 15:01 | XMS_ITS | Encounter Summary ---
:1955 Author Organization [facility] Address [address] [facility] [place] [address] Phone Care Team Providers Name Role Phone Provider, Outside Primary Care Provider Unavailable Reason for Visit Reason Comments Neurologic Problem pmr Encounter Details Date Type Department Care Team Description 12/27/2010 Office Visit [facility] [place] Med/Rehab Abhinav Chavez MD NEED ADDRESS Ulcer () (Primary Clinic Sameera Frances MD [address] [place] [address] Dx) [address] [place], [place] [address] Social History Tobacco Use Types [...] site documented in this encounter Care Teams Lead Based Paint Technician Relationship Specialty Start Date End Date Provider, Outside PCP - General 03/13/09 10/22/18 [place] [address] documented as of this encounter
--- OUTSIDE RECORDS SUMMARY | 2022-05-30 15:01 | XMS_ITS | Encounter Summary ---
:1955 Author Organization [facility] Address [address] [facility] [place] [address] Phone Care Team Providers Name Role Phone Provider, Outside Primary Care Provider Unavailable Reason for Visit Reason Comments Follow-up Encounter Details Date Type Department Care Team Description 09/24/2010 Office Visit [facility] [place] Plastic Surg DaysiBubba Veronica us ulcer, stage Clinic MD Valery IV () (Primary Dx) [address] [facility] [address] [facility] [address] [place], [place] [address] [place], [place] [phone] Social History Tobacco Use Types Packs/Day Years Used Date Smoking Tobacco: Never Smokeless Tobacco: Never Alcohol Use Standard Drinks/Week Comments Yes 3.3 (1 standard drink = 0.6 oz pure alco hol) once in while Sex Assigned at Date Recorded Not on file documented as of this encounter Last Filed Vital Signs Vital Sign Reading Time Taken Comments Blood Pressure 107/73 09/24/2010 10:33 AM BUSINESS ADMINISTRATION PROFESSOR Pulse 87 09/24/2010 10:33 AM BUSINESS ADMINISTRATION PROFESSOR Temperature 36.8 ??C (98.2 ??F) 09/24/2010 10:33 AM BUSINESS ADMINISTRATION PROFESSOR Respiratory Rate - - Oxygen Saturation - [...] of infection, please contact the Surgery clinic [phone]: redness, warmth, swelling, drainage, pain, and/or fever over 100 degrees. NESS ADMINISTRATION PROFESSOR documented in this encounter Progress Notes Mari Odell RN - 09/24/2010 2:45 PM CST Wound care D: Here for wound care. Location: coccyx A: Exam per provider. Wound cleansed with: technicare, H2O and rinsed. Dressing applied: and wet to dry with 1/2 packing and 2x2's with Island dressing. R: Patient tolerated procedure well. P: As ordered by provider. NESS ADMINISTRATION PROFESSOR Syl Yanes MD - 09/24/2010 11:21 AM [...] has received the special cushion from the [facility] which is supposed to relieve pressure from that area. He does have another apptset up with Soumya at the [facility] to complete the mapping to ensure [...] documented. Bubba Tavarez MD, 09/25/2010 9:26 AM NESS ADMINISTRATION PROFESSOR documented in this encounter Plan of Treatment Not on filedocumented as of this encounter Visit Diagnoses Diagnosis Decubitus ulcer, stage IV () - Primary Pressure ulcer, unspecified site documented in this encounter Care Teams Capacitor Inspector Relationship Specialty Start Date End Date Provider, Outside PCP - General 03/13/09 10/22/18 [place] [address] documented as of this encounter
--- OUTSIDE RECORDS SUMMARY | 2022-05-30 15:01 | XMS_ITS | Encounter Summary ---
:1955 Author Organization [facility] Address [address] [facility] [place] [address] Phone Care Team Providers Name Role Phone Provider, Outside Primary Care Provider Unavailable Reason for Visit Reason Onset Date Comments Question 09/22/2010 Encounter Details Date Type Department Care Team Description 09/22/2010 Telephone [facility] [place] Blanca Marti, NILSA Question [address] [facility] [address] [address] [place], [place] [address] Social History Tobacco Use Types [...] discuss concerns with Dr. Loya. He agreed. ARED FOODS PRODUCTION TEAM MEMBER Telephone Encounter - Blanca Marti RN - 09/22/2010 10:35 AM CST Pt calling in with frustrations Saw dr. loya who wants pt to see dr. bernstein again before coming back Dr. bernstein wants pt to be seen in mobile seating and mobility clinic Paperwork faxed to them and pt will call and schedule Pt having questions regarding his care of his wound after seeing dr. loya- felt his appt was so brief with dr. loya and is unsatisfied and would like to speak with nsg staff in surgery clinic Routed to surg clinic RNs Blanca Marti RN, 09/22/2010 10:35 AM [employer] PRODUCTION TEAM MEMBER documented in this encounter Plan of Treatment Not on filedocumented as of this encounter Visit Diagnoses Not on filedocumented in this encounter Care Teams Booster Operator Relationship Specialty Start Date End Date Provider, Outside PCP - General 03/13/09 10/22/18 [place] [address] documented as of this encounter
--- OUTSIDE RECORDS SUMMARY | 2022-05-30 15:01 | XMS_ITS | Encounter Summary ---
:1955 Author Organization [facility] Address [address] [facility] [place] [address] Phone Care Team Providers Name Role Phone Provider, Outside Primary Care Provider Unavailable Encounter Details Date Type Department Care Team Description 11/15/2010 Office Visit [facility] Phys Med/Rehab Sameera Frances D ecubitus ulcer Clinic (Primary Dx) [address] [facility] [address] [place], [place] [address] [place], [place] [phone] (Wo rk) Social History Tobacco Use Types [...] Frances MD - 11/16/2010 10:42 [place] [address] MEDREC#: [id number] PATIENT: MICHEAL RENE : 1955 DATE: 11/15/2010 [...] Physical Medicine and Rehabilitation Service Received in Oil Gas And Pipe Tester: 11/15/2010 12:55 M: 11/16/2010 02:37 bj CLR/bj Voice ID: [id number] Document ID: [id number] cc:[place] [address] Sameera Frances MD - 11/15/2010 12:44 PM CDT See dictation Sameera Frances MD, 11/15/2010 12:44 PM documented in this encounter Plan of Treatment Not on filedocumented as of this encounter Visit Diagnoses Diagnosis Decubitus ulcer - Primary Pressure ulcer, unspecified site documented in this encounter Care Teams Ticket Worker Relationship Specialty Start Date End Date Provider, Outside PCP - General 03/13/09 10/22/18 [place] [address] documented as of this encounter
--- OUTSIDE RECORDS SUMMARY | 2022-05-30 15:01 | XMS_ITS | Encounter Summary ---
:1955 Author Organization [facility] Address [address] [place] [address] Phone Care Team Providers Name Role Phone Provider, Outside Primary Care Provider Unavailable Reason for Visit Reason Onset Date Comments Supplies 09/17/2010 Encounter Details Date Type Department Care Team Description 09/17/2010 Telephone [facility] [place] Alka Jade RN Supplies [address] [place] [address] [place], [place] [address] Social History Tobacco Use Types [...] for supply list to be faxed to [facility] Shwetha Martin @ [phone]. Pt was seen today by Dr Tavarez and wet to dry dressing was ordered. Pt has a f/u appt scheduled on 09/24/[address] Tavarez. RANCE SALES PRODUCER Telephone Encounter - Alka Jade RN - [...] Provider Comment: Expects Return Call at: pt [phone] RANCE SALES PRODUCER documented in this encounter Plan of Treatment Not on filedocumented as of this encounter Visit Diagnoses Not on filedocumented in this encounter Care Teams Operations Director Relationship Specialty Start Date End Date Provider, Outside PCP - General 03/13/09 10/22/18 [place] [address] documented as of this encounter
--- OUTSIDE RECORDS SUMMARY | 2022-05-30 15:01 | XMS_ITS | Encounter Summary ---
:1955 Author Organization [facility] Address [address] [place] [address] Phone Care Team Providers Name Role Phone Provider, Outside Primary Care Provider Unavailable Reason for Visit Reason Onset Date Comments Supplies 09/20/2010 Encounter Details Date Type Department Care Team Description 09/20/2010 Telephone [facility] [place] Clinic Alka Jade RN Supplies [address] [place] [address] [place], [place] [address] Social History Tobacco Use Types [...] - 09/20/2010 10:02 AM CST Verified that [facility] pharmacy received fax for supplies on 09/17/10. EM CONSULTANT Telephone Encounter - Alka Jade RN [...] (home) Insurance: PCP: Outside Provider Comment: [facility] [phone] Prescribed supplies Expects Return Call at: home see above EM CONSULTANT documented in this encounter Plan of Treatment Not on filedocumented as of this encounter Visit Diagnoses Not on filedocumented in this encounter Care Teams Combination Welder Apprentice Relationship Specialty Start Date End Date Provider, Outside PCP - General 03/13/09 10/22/18 [place] [address] documented as of this encounter
--- OUTSIDE RECORDS SUMMARY | 2022-05-30 15:01 | XMS_ITS | Encounter Summary ---
:1955 Author Organization [facility] Address [address] [place], [place] [address], [place] [address] Phone Care Team Providers Name Role Phone Provider, Outside Primary Care Provider Unavailable Encounter Details Date Type Department Care Team Description 10/01/2010 Orders Only [facility] Omar Savage, Neurogenic bladder [address], [address] (Primary Dx) [place], [place] [address] Research Only [phone] Social History Tobacco Use Types Packs/Day Years [...] NOS documented in this encounter Care Teams Sponge Maker Relationship Specialty Start Date End Date Provider, Outside PCP - General 03/13/09 10/22/18 [place] [address] documented as of this encounter
--- OUTSIDE RECORDS SUMMARY | 2022-05-30 15:01 | XMS_ITS | Encounter Summary ---
:1955 Author Organization [facility] Address [address] [place] [address] Phone Care Team Providers Name Role Phone Provider, Outside Primary Care Provider Unavailable Encounter Details Date Type Department Care Team Description 10/19/2010 Refill [facility] Omar Savage MD [address] [facility], [address] Research Only [place], [place] [address] Social History Tobacco Use Types [...] Insurance: PCP: Outside Provider Comment: Please call [facility] pharmacy regarding getting an alternative for his medication Propantheline. Please call Ange Valdivia Return Call at: [phone] documented in this encounter Plan of Treatment Not on filedocumented as of this encounter Visit Diagnoses Diagnosis Neurogenic bladder - Primary Neurogenic bladder, NOS documented in this encounter Care Teams Landing Gear Mechanic Relationship Specialty Start Date End Date Provider, Outside PCP - General 03/13/09 10/22/18 [place] [address] documented as of this encounter
--- OUTSIDE RECORDS SUMMARY | 2022-05-30 15:01 | XMS_ITS | Encounter Summary ---
:1955 Author Organization [facility] Address [address] [place] [address] Phone Care Team Providers Name Role Phone Provider, Outside Primary Care Provider Unavailable Reason for Referral Consult/Test/Treat (Routine) - Closed Specialty Diagnoses / Procedures Referred By Contact Refer red To Contact Plastic Surgery / Diagnoses Ulcer Sameera Frances, PLASTIC SURGERY MD [address] [place], [place] [address] Referral ID Status Reason Start Date Expiration Date Visits Requ ested Visits Authorized [id number] Closed 09/13/2010 09/13/2011 1 1 EL ARCHITECT Encounter Details Date Type Department Care Team Description 09/13/2010 Orders Only [facility] [place]hab Sameera Frances U lcer () (Primary Clinic MD Dx) [address] [place], [place] [address] [place], [place] [phone] (Wo rk) Social History Tobacco Use Types [...] site documented in this encounter Care Teams Rehab Physician Relationship Specialty Start Date End Date Provider, Outside PCP - General 03/13/09 10/22/18 [place] [address] documented as of this encounter
--- OUTSIDE RECORDS SUMMARY | 2022-05-30 15:01 | XMS_ITS | Encounter Summary ---
:1955 Author Organization [facility] Address [address] [place] [address] Phone Care Team Providers Name Role Phone Provider, Outside Primary Care Provider Unavailable Reason for Visit Reason Onset Date Comments Call Back 09/06/2010 Encounter Details Date Type Department Care Team Description 09/06/2010 Telephone [facility] [place] Vickie Odell RN Call Back [address] [facility] [address] [address] [place], [place] [address] Social History Tobacco Use Types [...] states that he does not have a interface analyst [facility]. R: Patient quadriplegic states that he would like to speak directly with . Routing to STAINER Telephone Encounter - Vickie Odell RN - 09/06/2010 1:59 PM CST Message copied by VICKIE ODELL on MonSep 06, 2010 1:59 PM ------ Message from: BRANDEE TALAMANTES Created: MonSep 06, 2010 1:52 PM 09/06/2010 1:53 PM Khanh Edgard @[email or web address]@ 1955 Questions regarding a referral for a pressure sore from Dr Frances. Best number to call patient back: [phone]. Best time of day to reach patient:anytime. STAINER documented in this encounter Plan of Treatment Not on filedocumented as of this encounter Visit Diagnoses Not on filedocumented in this encounter Care Teams Clinical Laboratory Aides Teacher Relationship Specialty Start Date End Date Provider, Outside PCP - General 03/13/09 10/22/18 [place] [address] documented as of this encounter
--- OUTSIDE RECORDS SUMMARY | 2022-05-30 15:01 | XMS_ITS | Encounter Summary ---
:1955 Author Organization [facility] Address [address] [place] [address] Phone Care Team Providers Name Role Phone Provider, Outside Primary Care Provider Unavailable Reason for Visit Reason Comments Follow-up Encounter Details Date Type Department Care Team Description 12/06/2010 Office Visit [facility] [place]hab Sameera Frances U lcer () (Primary Clinic MD Dx) [address] [facility] [address] Mail Code [address]5 [place], [place] [address] [place], [place] [phone] (Wo rk) Social History Tobacco Use Types [...] site documented in this encounter Care Teams Station Installer And Repairer Relationship Specialty Start Date End Date Provider, Outside PCP - General 03/13/09 10/22/18 [place] [address] documented as of this encounter
--- OUTSIDE RECORDS SUMMARY | 2022-05-30 15:01 | XMS_ITS | Encounter Summary ---
:1955 Author Organization [facility] Address [address] [place] [address] Phone Care Team Providers Name Role Phone Provider, Outside Primary Care Provider Unavailable Reason for Referral Consult/Test/Treat (Routine) - Closed Specialty Diagnoses / Procedures Referred By Contact Refer red To Contact Physical Therapy Diagnoses Decubitus ulcer Sameera Frances MD [address] Mail Code [address] [place], [place] [address] Referral ID Status Reason Start Date Expiration Date Visits Requ ested Visits Authorized [id number] Closed 01/17/2011 01/18/2012 1 1 Reason for Visit Reason Comments Neurologic Problem Encounter Details Date Type Department Care Team Description 01/17/2011 Office Visit [facility] [place] Med/Rehab Sameera Frances D ecubitus ulcer Clinic (Primary Dx) [address] Mail Code [address] [place], [place] [address] [place], [place] [phone] (Wo rk) Social History Tobacco Use Types [...] site documented in this encounter Care Teams Correctional Officer Sergeant Relationship Specialty Start Date End Date Provider, Outside PCP - General 03/13/09 10/22/18 [place] [address] documented as of this encounter
--- OUTSIDE RECORDS SUMMARY | 2022-05-30 15:01 | XMS_ITS | Encounter Summary ---
:1955 Author Organization [facility] Address [address] [place] [address] Phone Care Team Providers Name Role Phone Provider, Outside Primary Care Provider Unavailable Reason for Visit Reason Comments Referral Consult/Test/Treat (Routine) - Closed Specialty Diagnoses / Procedures Referred By Contact Refer red To Contact Plastic Surgery / Diagnoses Ulcer Sameera Frances, PLASTIC SURGERY [address] Mail Code [address] [place], [place] [address] Referral ID Status Reason Start Date Expiration Date Visits Requ ested Visits Authorized [id number] Closed 09/13/2010 09/13/2011 1 1 Encounter Details Date Type Department Care Team Description 09/17/2010 Office Visit [facility] [place] Plastic Surg Bubba Loya () Sara Rasmussen MD (Primary Dx) [address] Mail Code [address] [place], [place] [address] [place] [phone] Social History Tobacco Use Types Packs/Day Years Used Date Smoking Tobacco: Never Smokeless Tobacco: Never Alcohol Use Standard Drinks/Week Comments Yes 3.3 (1 standard drink = 0.6 oz pure alco hol) once in while Sex Assigned at Date Recorded Not on file documented as of this encounter Last Filed Vital Signs Vital Sign Reading Time Taken Comments Blood Pressure 112/77 09/17/2010 8:59 AM SHOTGUN SHELL LOADING MACHINE OPERATOR Pulse 98 09/17/2010 8:59 AM SHOTGUN SHELL LOADING MACHINE OPERATOR Temperature 35.9 ??C (96.7 ??F) 09/17/2010 8:59 AM SHOTGUN SHELL LOADING MACHINE OPERATOR Respiratory Rate - - Oxygen Saturation [...] P: As ordered by provider. Dr loya GUN SHELL LOADING MACHINE OPERATOR Arnold Mejía MD - 09/17/2010 9:45 AM [...] documented. Bubba Loya MD, 09/17/2010 11:39 AM GUN SHELL LOADING MACHINE OPERATOR documented in this encounter Plan of Treatment Not on filedocumented as of this encounter Procedures Procedure Name Priority Date/Time Associated Diagnosis Comme nts SED RATE (ESR) Routine 09/17/2010 9:44 AM Quadriplegia () Re sults for this SHOTGUN SHELL LOADING MACHINE OPERATOR procedure are i n the results section. CBC WITH PLATELET Routine 09/17/2010 9:44 AM Quadriplegia () Results for this SHOTGUN SHELL LOADING MACHINE OPERATOR procedure are i n the results section. documented in this encounter Results (ABNORMAL) XR PELVIS WITH BOTH LAT HIP (09/17/2010 10:28 AM SHOTGUN SHELL LOADING MACHINE OPERATOR) Anatomical Region Laterality Modality Pelvis Computed Radiography Specimen (Source) Anatomical Collection Method Collection Time Re ceived Time Location / / Volume Laterality 09/17/2010 10:28 AM SHOTGUN SHELL LOADING MACHINE OPERATOR Impressions 09/17/2010 10:35 AM SHOTGUN SHELL LOADING MACHINE OPERATOR Impression: Severe osteoarthritis involving both hips with postsurgical fixation of a left hip fracture. There is no cortical irregularity to suggest osteomyelitis. This however lucency surrounding a fe moral IM nail. Three-phase bone scan may be beneficial to assess for infection surrounding the nail if clinically indicated. Reading Radiologist: Khanh Brunson Narrative 09/17/2010 10:35 AM SHOTGUN SHELL LOADING MACHINE OPERATOR History: Rule out osteo. Comparison: None. Findings [...] (ABNORMAL) CBC WITH PLATELET (09/17/2010 9:44 AM SHOTGUN SHELL LOADING MACHINE OPERATOR) P athologist Signature WBC 5.3 4.0 - 10.0 [facility] k/cmm RBC 4.03 (L) 4.60 - 6.00 [facility] [place] m/cmm Hgb 11.8 (L) 13.1 - 17.5 [facility] g/dL Hematocrit 36.4 (L) 40.0 - 51.0 [facility] [place] % MCV 90.3 80.0 - [facility] 100.0 fL MCH 29.3 25.0 - 32.0 [facility] [place] pg MCHC 32.4 31.0 - 36.0 [facility] g/dL RDW 12.8 11.5 - 14.5 [facility] [place] % Plt 308 150 - 400 [facility] k/cmm MPV 8.0 6.5 - 12.5 [facility] [place] fL NRBC .0 0.0 - 0.0 % [facility] Specimen Anatomical Collection Method Collection Time Receive d Time (Source) Location / / Volume Laterality Blood 09/17/2010 9:44 AM 1 9:44 SHOTGUN SHELL LOADING MACHINE OPERATOR AM SHOTGUN SHELL LOADING MACHINE OPERATOR Arnold Mejía MD LABORATORY Performing Organization Address City/[facility]/ZIP [facility] Phon e Number [facility] [place] [address] LAB (ABNORMAL) SED RATE (ESR) (09/17/2010 9:44 AM SHOTGUN SHELL LOADING MACHINE OPERATOR) P athologist Signature Sed Rate 51 (H) 0 - 10 mm/hr [facility] [place] Specimen Anatomical Collection Method Collection Time Receive d Time (Source) Location / / Volume Laterality Blood 09/17/2010 9:44 AM 1 9:44 SHOTGUN SHELL LOADING MACHINE OPERATOR AM SHOTGUN SHELL LOADING MACHINE OPERATOR Arnold Mejía MD LABORATORY Performing Organization Address City/[facility] Phon e Number [facility] [place] [address] LAB documented in this encounter Visit Diagnoses Diagnosis Quadriplegia () - Primary Quadriplegia, unspecified Quadriplegia () Quadriplegia, unspecified documented in this encounter Care Teams Radiotelegrapher Relationship Specialty Start Date End Date Provider, Outside PCP - General 03/13/09 10/22/18 [place] [address] documented as of this encounter
--- OUTSIDE RECORDS SUMMARY | 2022-05-30 15:01 | XMS_ITS | Encounter Summary ---
:1955 Author Organization [facility] Address [address] [place] [address] Phone Care Team Providers Name Role Phone Provider, Outside Primary Care Provider Unavailable Reason for Visit Reason Comments Neurologic Problem pmr Encounter Details Date Type Department Care Team Description 11/01/2010 Office Visit [facility] [place]/Rehab Sameera Frances D ecubitus ulcer, Clinic MD mackey (Primary Dx) [address] [facility] [address] Mail Code [address] [place], [place] [address] [place], [place] [phone] (Wo rk) Social History Tobacco Use Types [...] CDT Height - - Body Mass Index 91042.15 07/31/2007 3:21 PM UPHOLSTERY DEPARTMENT SUPERVISOR documented in this encounter Patient [...] male with long history of a C7 [employer]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
--- OUTSIDE RECORDS SUMMARY | 2022-05-30 15:01 | XMS_ITS | Encounter Summary ---
:1955 Author Organization [facility] Address [address] [place] [address] Phone Care Team Providers Name Role Phone Provider, Outside Primary Care Provider Unavailable Reason for Visit Reason Onset Date Comments Call Back 09/30/2010 Encounter Details Date Type Department Care Team Description 09/30/2010 Nurse Triage [facility] [place] Quang Toscano, Call Back [facility] [address] [place] [address] Social History Tobacco Use Types Packs/Day [...] requests that she call back again at [phone]. R: routing to MAKE UP ARTIST Telephone Encounter - Quang Toscano RN - 09/30/2010 4:24 PM BODY MAKE UP ARTIST Message copied by QUANG TOSCANO on MonSep [...] CHRISTIANO TINAJERO Phone number for return call: [phone] MAKE UP ARTIST documented in this encounter Plan of Treatment Not on filedocumented as of this encounter Visit Diagnoses Not on filedocumented in this encounter Care Teams Chairman And Ceo Relationship Specialty Start Date End Date Provider, Outside PCP - General 03/13/09 10/22/18 [place] [address] documented as of this encounter
--- OUTSIDE RECORDS SUMMARY | 2022-05-30 15:01 | XMS_ITS | Encounter Summary ---
:1955 Author Organization [facility] Address [address] [place] [address] Phone Care Team Providers Name Role Phone Provider, Outside Primary Care Provider Unavailable Encounter Details Date Type Department Care Team Description 09/13/2010 Notes/Trans HFA ALS Clinic Sameera Frances MD [address] [facility] Professional Mail Code [address] [address] [place] [address] [phone] Social History Tobacco Use Types Packs/Day Years Used Date Smoking Tobacco: Never Alcohol Use Standard Drinks/Week Comments Yes 3.3 (1 standard drink = 0.6 oz pure alco hol) Sex Assigned at Date Recorded Not on file documented as of this encounter Progress Notes Sameera Frances MD - 09/16/2010 12:35 [place] [address] [facility]#: [id number] PATIENT: MICHEAL RENE : 1955 DATE: 09/13/2010 [...] Physical Medicine and Rehabilitation Service Received in Yeast Pumper: 09/13/2010 15:26 M: 09/14/2010 09:05 [facility] HOMA/srikanth Voice ID: [id number] Document ID: [id number] DATA HADOOP DEVELOPER documented in this encounter Plan of Treatment Not on filedocumented as of this encounter Visit Diagnoses Not on filedocumented in this encounter Care Teams 911 Emergency Dispatcher Relationship Specialty Start Date End Date Provider, Outside PCP - General 03/13/09 10/22/18 [place] [address] documented as of this encounter
--- OUTSIDE RECORDS SUMMARY | 2022-05-30 15:01 | XMS_ITS | Encounter Summary ---
:1955 Author Organization [facility] Address [address] [facility] [place] [address] Phone Care Team Providers Name Role Phone Provider, Outside Primary Care Provider Unavailable Reason for Visit Reason Onset Date Comments Call Back 11/08/2010 Encounter Details Date Type Department Care Team Description 11/08/2010 Telephone [facility] [place] Neurology Clini c Vickie Odell RN Call Back [address] [facility] [address] [address] [place], [place] [address] Social History Tobacco Use [...] that was to call [employer] [phone] to order supplieslast after last visit 11-01-10. [...] Outside Provider Comment:na Expects Return Call at: [phone] documented in this encounter Plan of Treatment Not on filedocumented as of this encounter Visit Diagnoses Not on filedocumented in this encounter Care Teams Journeyman Operator Assistant Relationship Specialty Start Date End Date Provider, Outside PCP - General 03/13/09 10/22/18 [place] [address] documented as of this encounter
--- OUTSIDE RECORDS SUMMARY | 2022-05-30 15:01 | XMS_ITS | Encounter Summary ---
:1955 Author Organization [facility] Address [address] [facility] [place] [address] Phone Care Team Providers Name Role Phone Provider, Outside Primary Care Provider Unavailable Encounter Details Date Type Department Care Team Description 09/17/2010 Hospital Encounter [facility] Arnold Vora [address] MD [place], [place] [address] [address] [facility] [phone] [place], [place] [id number] Social History Tobacco Use Types Packs/Day Years [...] () Results for this LAT HIP AM CAR LOT ATTENDANT procedure are i n the results section. documented in this encounter Results (ABNORMAL) XR PELVIS WITH BOTH LAT HIP (09/17/2010 10:28 AM CAR LOT ATTENDANT) Anatomical Region Laterality Modality Pelvis Computed Radiography Specimen (Source) Anatomical Collection Method Collection Time Re ceived Time Location / / Volume Laterality 09/17/2010 10:28 AM CAR LOT ATTENDANT Impressions 09/17/2010 10:35 AM CAR LOT ATTENDANT Impression: Severe osteoarthritis involving both hips with postsurgical fixation of a left hip fracture. There is no cortical irregularity to suggest osteomyelitis. This however lucency surrounding a fe moral IM nail. Three-phase bone scan may be beneficial to assess for infection surrounding the nail if clinically indicated. Reading Radiologist: Khanh Brunson Narrative 09/17/2010 10:35 AM CAR LOT ATTENDANT History: Rule out osteo. Comparison: None. Findings [...] unspecified documented in this encounter Care Teams Agricultural Adviser Relationship Specialty Start Date End Date Provider, Outside PCP - General 03/13/09 10/22/18 [place] [address] documented as of this encounter
--- OUTSIDE RECORDS SUMMARY | 2022-05-30 15:02 | XMS_ITS | Encounter Summary ---
:1955 Author Organization [facility] Address [address] [place], [place] [address]. [place] [address] Phone Care Team Providers Name Role Phone Provider, Outside Primary Care Provider Unavailable Encounter Details Date Type Department Care Team Description 05/13/2010 Hospital Encounter [facility] [place] Ultrasound Omar Savage MD [address] Research Only [address] [place], [place] [address] Social History Tobacco Use Types [...] documented in this encounter Care Teams Director Of Hotel Operations Relationship Specialty Start Date End Date Provider, Outside PCP - General 03/13/09 10/22/18 [place] [address] documented as of this encounter
--- OUTSIDE RECORDS SUMMARY | 2022-05-30 15:02 | XMS_ITS | Encounter Summary ---
:1955 Author Organization [facility] Address [address] [place] [address] Phone Care Team Providers Name Role Phone Provider, Outside Primary Care Provider Unavailable Reason for Visit Reason Onset Date Comments Refill Request 10/21/2009 Encounter Details Date Type Department Care Team Description 10/21/2009 Refill HFA Urology Omar Savage MD Refill Request [address] [facility], [address] Research Only [place], [place] [address] Social History Tobacco Use Types [...] NOS documented in this encounter Care Teams Hospice Music Therapist Relationship Specialty Start Date End Date Provider, Outside PCP - General 03/13/09 10/22/18 [place] [address] documented as of this encounter
--- OUTSIDE RECORDS SUMMARY | 2022-05-30 15:02 | XMS_ITS | Encounter Summary ---
:1955 Author Organization [facility] Address [address] [facility] [place] [address] Phone Care Team Providers Name Role Phone Provider, Outside Primary Care Provider Unavailable Reason for Visit Reason Comments Follow-up 13 months follow up visit [facility] Dr Frances HFA Monday PM&R Clinic for DX of C7 Spinal Cord Injury Encounter Details Date Type Department Care Team Description 04/20/2010 Office Visit HFA Neuromuscular Sameera Frances Don plegia () Clinic MD Valery (Primary Dx) [address], [address] [place] [address] Mail [address] [place], [place] [address] [place], [place] [phone] Social History Tobacco Use Types Packs/Day Years [...] Frances for: 1) Wheelchair repair/s. Faxed to [facility] ([phone]) Referral to [facility]) Formal Wheelchair and wheeled mobility clinic faxedto scheduling to call Micheal to get scheduled ([phone]) Blanca Ziegler RN documented in this encounter Progress Notes Sameera Frances MD - 05/13/2010 3:35 PM CDT [facility] [address] [facility], [address] [place] [address] (fax) MEDREC#: [id number] PATIENT: MICHEAL FLETCHER : 1955 DATE: 04/20/2010 NEUROMUSCULAR PHYSICAL MEDICINE NOTE HISTORY OF PRESENT ILLNESS: Micheal Fletcher is a 55-year-old gentleman with a C7 [place] [employer] B spinal cord [...] be broken as far the spokes. The [id number] stability is poor. The back of the [...] Physical Medicine and Rehabilitation Service Received in Engine Lathe Set Up Operator Tool: 05/11/2010 20:55 M: 05/13/2010 10:09 ms CLR/ms Voice ID: [id number] Document ID: [id number] cc:[place] [address] Sameera Frances MD - 04/20/2010 11:01 AM [...] unspecified documented in this encounter Care Teams Patrol Community Service Officer Relationship Specialty Start Date End Date Provider, Outside PCP - General 03/13/09 10/22/18 [place] [address] documented as of this encounter
--- OUTSIDE RECORDS SUMMARY | 2022-05-30 15:02 | XMS_ITS | Encounter Summary ---
:1955 Author Organization [facility] Address [address] [place] [address] Phone Care Team Providers Name Role Phone Provider, Outside Primary Care Provider Unavailable Reason for Visit Reason Onset Date Comments Refill Request 04/30/2010 Encounter Details Date Type Department Care Team Description 04/30/2010 Refill HFA Urology Omar Savage MD Refill Request [address] [facility] Research [place], [place] [address] Social History Tobacco Use Types [...] NOS documented in this encounter Care Teams Motor Builder Winder Relationship Specialty Start Date End Date Provider, Outside PCP - General 03/13/09 10/22/18 [place] [address] documented as of this encounter
--- OUTSIDE RECORDS SUMMARY | 2022-05-30 15:02 | XMS_ITS | Encounter Summary ---
:1955 Author Organization [facility] Address [address] [place] [address] Phone Care Team Providers Name Role Phone Pcp, No Primary Care Provider Unavailable Reason for Visit Reason Onset Date Comments Refill Request 01/28/2008 Encounter Details Date Type Department Care Team Description 01/28/2008 Refill HFA Urology Omar Savage MD Refill Request [address] [facility] Research Only [place], [place] [address] Social History Tobacco Use Types [...] on filedocumented in this encounter Care Teams Dictating Machine Mechanic Relationship Specialty Start Date End Date Pcp, No PCP - General 01/24/08 03/12/09 [facility] [place] [address] documented as of this encounter
--- OUTSIDE RECORDS SUMMARY | 2022-05-30 15:02 | XMS_ITS | Encounter Summary ---
:1955 Author Organization [facility] Address [address] [place] [address] Phone Care Team Providers Name Role Phone Pcp, No Primary Care Provider Unavailable Reason for Visit Reason Comments Follow-up med check-in Encounter Details Date Type Department Care Team Description 01/24/2008 Office Visit HFA Urology Omar Savage, Neurogenic Bladder [address] [facility] (Primary Dx) [address] [place], [place] [address] Social History Tobacco Use Types Packs/Day Years Used Date Smoking Tobacco: Never Alcohol Use Standard Drinks/Week Comments Yes 3.3 (1 standard drink = 0.6 oz pure alco hol) Sex Assigned at Date Recorded Not on file documented as of this encounter Progress Notes Omar Savage MD - 01/29/2008 2:47 PM CDT [facility] [address] [facility], [address] [place] [address] (fax) MEDREC#: [id number] PATIENT: MICHEAL RENE : 1955 DATE: 01/24/2008 [...] this examination. Omar Savage MD Received in Nurse Midwife/Clinical Instructor: 01/24/2008 17:47:53 (M: 01/29/2008 08:19:42 aml) CS/aml Voice ID: [id number] Document ID: [id number] cc: Omar Savage MD - 01/24/2008 5:48 [...] eGFR, >60 mL/min/1.73 HFA LAB Non- m2 Cuban Specimen Anatomical Collection Method Collection Time Receive d Time (Source) Location / / Volume Laterality Blood 01/24/2008 4:05 PM 8 4:29 CDT PM CDT Omar Savage MD LABORATORY Performing Organization Address City/[facility]/ZIP Code Phon e Number HFA LAB GLOMERULAR FILTRATION RATE B (01/24/2008 4:05 PM CDT) P athologist Signature eGFR, >60 mL/min/1.73 HFA LAB Cuban m2 Comment: IDMS TRACEABLE CALIBRATION EFFECTIVE 08/16/2007 Specimen Anatomical Collection Method Collection Time Receive d Time (Source) Location / / Volume Laterality Blood 01/24/2008 4:05 PM 8 4:29 CDT PM CDT Omar Savage MD LABORATORY Performing Organization Address City/[facility]/ZIP Code Phon e Number HFA LAB (ABNORMAL) [...] PM 8 4:29 CDT PM CDT Omar Saavge MD LABORATORY Performing Organization Address [...] NOS documented in this encounter Care Teams Yardage Control Clerk Relationship Specialty Start Date End Date Pcp, No PCP - General 01/24/08 03/12/09 [facility] [place] [address] documented as of this encounter
--- OUTSIDE RECORDS SUMMARY | 2022-05-30 15:02 | XMS_ITS | Encounter Summary ---
:1955 Author Organization [facility] Address [address] [place] [address] Phone Care Team Providers Name Role Phone Provider, Outside Primary Care Provider Unavailable Reason for Visit Reason Comments Follow-up 19 months foolow [facility] visit [facility] Dr Yvrose Mukherjee [facility]R [facility] Dx C7 Spinal Cord Injury Encounter Details Date Type Department Care Team Description 03/13/2009 Office Visit HFA Neuromuscular Sameera Frances Don plegia () Clinic MD Valery (Primary Dx) [address], [address] [place] [address] Mail Code P5 [place], [place] [address] [place], [place] [phone] Social History Tobacco Use Types Packs/Day [...] visit with Dr Frances A [facility] ([phone]) Rx/orders given to Micheal by Dr Frances for Wheelchair lumbar support and wheelchair repairs, bilateral arm rests, replace sling back Blanca Ziegler RN documented in this encounter Progress Notes Sameera Frances MD - 03/26/2009 10:04 AM CDT [facility] [address] [facility] [place] [address] (fax) [facility]#: [id number] PATIENT: MICHEAL FLETCHER : 1955 DATE: 03/13/2009 NEUROMUSCULAR PHYSICAL MEDICINE NOTE HISTORY OF PRESENT ILLNESS: Micheal Fletchre is a 54-year-old gentleman with a C7 [employer] (AUDREY) B spinal cord [...] that eventually led to pacemaker placement at [facility]. He said that his angiogram did [...] discontinues that activity. He is using a GateGuruie wheelchair with a Joby cushion. It is [...] a slow healing coccyx ulcer at the [facility]. We have discussed whether he should go [...] that complication. Sameera Frances MD Received in Curriculum Development Coordinator: 03/20/2009 12:28:50 (M: 03/24/2009 03:22:10 golden) HOMA/jlb Voice ID: [id number] Document ID: [id number] cc: Abida Pulliam DO, [facility], [address] [place] [address] Sameera Frances MD - 03/19/2009 6:44 PM CDT See dictation. documented in this encounter Nursing Notes 03/13/2009 8:00 AM CDT >> Blanca Ziegler RN MonMar 13, 2009 8:24 AM 19 months follow up visit with Dr Frances in Monday [facility]. DX of C7 Spinal Cord Injury, Quadriplegia, Neurogenic Bladder. B/P 87/60 pulse 105, states runs lower blood pressure. Self caths PRN during the day. Blanca Ziegler RN documented in this encounter Plan of Treatment Not on filedocumented as of this encounter Visit Diagnoses Diagnosis Quadriplegia () - Primary Quadriplegia, unspecified documented in this encounter Care Teams Airset Molder Relationship Specialty Start Date End Date Provider, Outside PCP - General 03/13/09 10/22/18 [place] [address] documented as of this encounter
--- OUTSIDE RECORDS SUMMARY | 2022-05-30 15:02 | XMS_ITS | Encounter Summary ---
:1955 Author Organization [facility] Address [address] [place] [address] Phone Care Team Providers Name Role Phone [...] on filedocumented in this encounter Care Teams Vp Treasurer Relationship Specialty Start Date End Date Provider, Outside PCP - General 03/13/09 10/22/18 [place] [address] documented as of this encounter
--- OUTSIDE RECORDS SUMMARY | 2022-05-30 15:02 | XMS_ITS | Encounter Summary ---
:1955 Author Organization [facility] Address [address] [place] [address] Phone Care Team Providers Name Role Phone Pcp, No Primary Care Provider Unavailable Reason for Visit Reason Onset Date Comments Refill Request 09/02/2008 Encounter Details Date Type Department Care Team Description 09/02/2008 Refill HFA Urology Omar Savage MD Refill Request [address] [facility], [address] [place], [place] [address] Social History Tobacco Use Types Packs/Day Years Used Date Smoking Tobacco: Never Alcohol Use Standard Drinks/Week Comments Yes 3.3 (1 standard drink = 0.6 oz pure alco hol) Sex Assigned at Date Recorded Not on file documented as of this encounter Plan of Treatment Not on filedocumented as of this encounter Visit Diagnoses Not on filedocumented in this encounter Care Teams Editor At Large Relationship Specialty Start Date End Date Pcp, No PCP - General 01/24/08 03/12/09 [facility] [place] [address] documented as of this encounter
--- OUTSIDE RECORDS SUMMARY | 2022-05-30 15:02 | XMS_ITS | Encounter Summary ---
:1955 Author Organization [facility] Address [address] [place] [address] [place] [address] Phone Care Team Providers Name Role Phone Provider, Outside Primary Care Provider Unavailable Encounter Details Date Type Department Care Team Description 04/07/2010 Telephone HFA Urology Omar Savage MD [address] [facility], [address] Only [place], [place] [address] Social History Tobacco Use Types [...] BALL AT 11:30. PLEASE CALL HIM AT [phone] Pt. Name: Khanh Rene : 1955 (home) Insurance: PCP: Outside Provider Comment: Expects Return Call at: documented in this encounter Plan of Treatment Not on filedocumented as of this encounter Visit Diagnoses Not on filedocumented in this encounter Care Teams Clicking Machine Operator Relationship Specialty Start Date End Date Provider, Outside PCP - General 03/13/09 10/22/18 [place] [address] documented as of this encounter
--- OUTSIDE RECORDS SUMMARY | 2022-05-30 15:02 | XMS_ITS | Encounter Summary ---
:1955 Author Organization [facility] Address [address] [place] [address] Phone Care Team Providers Name Role Phone Pcp, No Primary Care Provider Unavailable Reason for Visit Reason Onset Date Comments Question 02/20/2009 Called with question Encounter Details Date Type Department Care Team Description 02/20/2009 Telephone HFA Physical Medicin e Reece Ziegler, Question (Called with [facility] [address], Suite RN question) M[facility] [place] [address] Clinic [phone] [place] [address] Social History Tobacco Use Types Packs/Day Years [...] Created: MonFeb 19, 2009 3:38 PM Regarding: [facility] PMR TELEPHONE MESSAGE Taken by: Natalie Painting , 02/19/2009 3:38 PM Direct to: Problem: questions Pt. Name: Khanh Rene : 1955 (home) Insurance: PCP: No PCP Comment: Expects Return Call at: [phone] Monday02/20/09 at 930am, returned Khanh's phone call, had to leave phone message, Reece Ziegler RN 02/26/09 again returned Khanh's phone call woth no answer. Khanh is scheduled to see Dr Frances on Monday03/13/09 at [facility]. I has also given Dr Frances phone message from Khanh on his question on medical supply.Reece Ziegler RN documented in this encounter Plan of Treatment Not on filedocumented as of this encounter Visit Diagnoses Not on filedocumented in this encounter Care Teams Senior Lead Software Engineer Relationship Specialty Start Date End Date Pcp, No PCP - General 01/24/08 03/12/09 [facility] [place] [address] documented as of this encounter
--- OUTSIDE RECORDS SUMMARY | 2022-05-30 15:02 | XMS_ITS | Encounter Summary ---
:1955 Author Organization [facility] Address [address] [place] [address] Phone Care Team Providers Name Role Phone Pcp, No Primary Care Provider Unavailable Reason for Visit Reason Comments Follow-up neurogenic bladder Encounter Details Date Type Department Care Team Description 01/29/2009 Office Visit HFA Urology Omar Savage, Neurogenic Bladder [address] [place] [address] (Primary Dx) [address] [place], [place] [address] Social History Tobacco Use Types Packs/Day Years Used Date Smoking Tobacco: Never Alcohol Use Standard Drinks/Week Comments Yes 3.3 (1 standard drink = 0.6 oz pure alco hol) Sex Assigned at Date Recorded Not on file documented as of this encounter Progress Notes Omar Savage MD - 02/02/2009 12:28 PM CDT [facility] [address] [facility], [address] [place] [address] (fax) MEDREC#: [id number] PATIENT: MICHEAL FLETCHER : 1955 DATE: 01/29/2009 [...] pinning. The pinning was performed at the [facility]. His pacemaker was placed at the [facility]. I will request laboratory values from both [...] 20 minutes. Omar Savage MD Received in Biomedical Equipment Tech: 01/29/2009 18:41:26 (M: 02/02/2009 08:06:12 sharmila) CS/sjv Voice ID: [id number] Document ID: [id number] cc: Omar Savage MD - 01/29/2009 6:41 [...] documented in this encounter Care Teams Job Forwarder Relationship Specialty Start Date End Date Pcp, No PCP - General 01/24/08 03/12/09 [place] [address] documented as of this encounter
--- OUTSIDE RECORDS SUMMARY | 2022-05-30 15:02 | XMS_ITS | Encounter Summary ---
:1955 Author Organization [facility] Address [address] [place] [address] Phone Care Team Providers Name Role Phone Provider, Outside Primary Care Provider Unavailable Encounter Details Date Type Department Care Team Description 05/17/2010 Letters(Tab) HFA Urology Omar Savage MD [address] [place] [address], [address] [place] [address] Social History Tobacco Use Types Packs/Day Years Used Date Smoking Tobacco: Never Alcohol Use Standard Drinks/Week Comments Yes 3.3 (1 standard drink = 0.6 oz pure alco hol) Sex Assigned at Date Recorded Not on file documented as of this encounter Progress Notes Omar Savage MD - 05/18/2010 6:15 AM CDT [facility] [address] [place] [address] May 17, 2010 TO: Micheal Rene [address] [facility] [place] [address] RE:MICHEAL RENE MR#:[id number] :1955 Dear Mr. Rene: From your recent urology clinic visit, the renal ultrasound that was performed does not show any evidence of kidney abnormalities. There is no dilation, no hydronephrosis or stones noted. Best wishes. Look forward to seeing you in 1 year. Please feel free to contact me for questions. Sincerely, Omar Savage MD Staff Physician Surgery Service Received in Superintendent Track: 05/17/2010 21:18 M: 05/18/2010 03:15 javon CS/javon Voice ID: [id number] Document ID: [id number] cc:Micheal Rene [id number] MICHELLE Espino [id number] documented in this encounter Plan of Treatment Not on filedocumented as of this encounter Visit Diagnoses Not on filedocumented in this encounter Care Teams Bulb Grader Relationship Specialty Start Date End Date Provider, Outside PCP - General 03/13/09 10/22/18 [place] [address] documented as of this encounter
--- OUTSIDE RECORDS SUMMARY | 2022-05-30 15:02 | XMS_ITS | Encounter Summary ---
:1955 Author Organization [facility] Address [address] [place] [address] Phone Care Team Providers Name Role Phone Provider, Outside Primary Care Provider Unavailable Reason for Visit Reason Comments Follow-up Encounter Details Date Type Department Care Team Description 04/01/2010 Office Visit HFA Urology Omar Saavge, Neurogenic bladder; [address] [place] [address] Screening for prostate cancer [address] [place], [place] [address] Social History Tobacco Use Types Packs/Day Years [...] Savage MD - 04/05/2010 1:22 PM CDT [facility] [address] [facility], [address] [place] [address] (fax) [facility]#: [id number] PATIENT: MICHEAL FLETCHER : 1955 DATE: 04/01/2010 [...] MD Staff Physician Surgery Service Received in Veterinary Medicine Teacher: 04/02/2010 14:55 M: 04/02/2010 22:48 kn CS/kn Voice ID: [id number] Document ID: [id number] Omar Savage MD - 04/02/2010 2:55 PM [...] NOS documented in this encounter Care Teams Platform Attendant Relationship Specialty Start Date End Date Provider, Outside PCP - General 03/13/09 10/22/18 [place] [address] documented as of this encounter
--- OUTSIDE RECORDS SUMMARY | 2022-05-30 15:02 | XMS_ITS | Encounter Summary ---
:1955 Author Organization [facility] Address [address] [place] [address] Phone Care Team Providers Name Role Phone Provider, Outside Primary Care Provider Unavailable Encounter Details Date Type Department Care Team Description 08/30/2010 Telephone [facility] Physical Therap y Reece Ziegler, [place] [address] [facility] [address] [place] [address] Social History Tobacco Use Types Packs/Day Years [...] 08/30/2010 11:12 AM To: Neurology Team Pool [facility] ----- Message ----- From: Nola Espino Sent: 08/27/2010 1:52 PM To: Neurology Administrator Health Care Facility Pool Patient: Khanh Rene : 1955 Called to schedule an appointment with provider:Dr. Frances No appointments available: with preferred provider.. Date and time requested: caryn Reason for visit: Pt has a pressure sore, and needs a FU appt Phone number for return call: [phone] Monday08/30/10. Khanh Rene will need to [facility] at [phone] to schedule a follow up visit with Dr Frances in her PM&R Clinic. We will call Khanh and inform him of this. Reece Ziegler RN N RESOURCES MGR documented in this encounter Plan of Treatment Not on filedocumented as of this encounter Visit Diagnoses Not on filedocumented in this encounter Care Teams Truck Body Builder Apprentice Relationship Specialty Start Date End Date Provider, Outside PCP - General 03/13/09 10/22/18 [place] [address] documented as of this encounter
--- OUTSIDE RECORDS SUMMARY | 2022-05-30 15:02 | XMS_ITS | Encounter Summary ---
:1955 Author Organization [facility] Address [address] [place] [address] Phone Care Team Providers Name Role Phone [...] 09/23/2010 12:00 AM CSTAssociated Order(s): INFORMATION DISCLOSURE BRUSHER documented in this encounter Plan of Treatment Not on filedocumented as of this encounter Procedures Procedure Name Priority Date/Time Associated Comments Diagnosis INFORMATION 09/23/2010 5:22 PM Results f or this DISCLOSURE HEEL BRUSHER procedure are i n the results section. documented in this encounter Results INFORMATION DISCLOSURE (09/23/2010 5:22 PM HEEL BRUSHER) Narrative 09/23/2010 5:22 PM HEEL BRUSHER Procedure Note Unknown, Provider - 09/23/2010 12:00 AM CST Provider Unknown SCANNED CONSENTS documented in this encounter Visit Diagnoses Not on filedocumented in this encounter Care Teams Gas Singer Relationship Specialty Start Date End Date Provider, Outside PCP - General 03/13/09 10/22/18 [place] [address] documented as of this encounter
--- OUTSIDE RECORDS SUMMARY | 2022-05-30 15:02 | XMS_ITS | Encounter Summary ---
:1955 Author Organization [facility] Address [address] [place] [address] Phone Care Team Providers Name Role Phone Pcp, No Primary Care Provider Unavailable Encounter Details Date Type Department Care Team Description 01/29/2008 Letters(Tab) [facility] Omar Savage MD [facility] [address] [place] [address] P5.620 [place], [place] [address] Social History Tobacco Use Types Packs/Day Years Used Date Smoking Tobacco: Never Alcohol Use Standard Drinks/Week Comments Yes 3.3 (1 standard drink = 0.6 oz pure alco hol) Sex Assigned at Date Recorded Not on file documented as of this encounter Progress Notes Omar Savage MD - 01/30/2008 7:[address] [facility] [address] [place] [address] 01/29/2008 TO: Micheal Rene [address] [place] [address] RE: MICHEAL RENE MR#: [id number] Dear Mr. Rene: From your recent Urology Clinic visit, your laboratory values remain stable. Your serum creatinine remains low because of your low body mass. It is 0.29. Your prostate-specific antigen blood test is 2.38, with normal up to 4. We await your return visit in one year. Best wishes. Sincerely, Omar Savage MD Received in Smoking Tobacco Cutter Operator: 01/29/2008 16:28:05 (M: 01/30/2008 02:45:25 jlb) CS/golden Voice ID: [id number] Document ID: [id number] cc: Micheal Rene documented in this encounter Plan of Treatment Not on filedocumented as of this encounter Visit Diagnoses Not on filedocumented in this encounter Care Teams Upholsterer Apprentice Relationship Specialty Start Date End Date Pcp, No PCP - General 01/24/08 03/12/09 [facility] [place] [address] documented as of this encounter
--- OUTSIDE RECORDS SUMMARY | 2022-05-30 15:02 | XMS_ITS | Encounter Summary ---
:1955 Author Organization [facility] Address [address] [place] [address] Phone Care Team Providers Name Role Phone Provider, Outside Primary Care Provider Unavailable Reason for Visit Reason Onset Date Comments Call Back 08/30/2010 Encounter Details Date Type Department Care Team Description 08/30/2010 Telephone HFA Multispecialty Varsha Knight RN Call Back [address], [address] Multispecialty Clinic [place], [place] [address] [phone] [place] [address] (Wo rk) Social History Tobacco Use Types Packs/Day Years Used Date Smoking Tobacco: Never Alcohol Use Standard Drinks/Week Comments Yes 3.3 (1 standard drink = 0.6 oz pure alco hol) Sex Assigned at Date Recorded Not on file documented as of this encounter Miscellaneous Notes Telephone Encounter - Varsha Knight RN - 08/30/2010 4:23 PM SPINE SUPERVISOR Spoke with patient & let him know that Blanca Ziegler was working on this (see her telephone encounter from earlier today). Pt states he is using Duoderm for this pressure sore but thinks it may need other intervention. Let him know our office would be in touch soon regarding this appt. 08/31/10 830 AM. I called and talked to Khanh ([phone]) he is a Dr Frances Quadriplegia patient and he does have a open sore on his bottom, he did call scheduling at [facility] ([phone])and could not get in to see Dr Frances in her PM&R Clinic until September. I informed Khanh that I will route this phone message to Dr Frances plus I will page her to try to talk to her about Khanh. Blanca Ziegler RN E SUPERVISOR documented in this encounter Plan of Treatment Not on filedocumented as of this encounter Visit Diagnoses Not on filedocumented in this encounter Care Teams Gum Worker Relationship Specialty Start Date End Date Provider, Outside PCP - General 03/13/09 10/22/18 [place] [address] documented as of this encounter
--- OUTSIDE RECORDS SUMMARY | 2022-05-30 15:02 | XMS_ITS | Encounter Summary ---
:1955 Author Organization [facility] Address [address] [place] [address] Phone Care Team Providers Name Role Phone Pcp, No Primary Care Provider Unavailable Reason for Visit Reason Onset Date Comments Durable Medical Equipment 02/17/2009 Question about reordering equipment Check/Request Encounter Details Date Type Department Care Team Description 02/17/2009 Telephone HFA Physical Medicin e Reece Ziegler, Durable Medical [address] [facility] RN Equipment Check/Request M50 Multispecialty (Question about [place], [place] [address] Clinic reordering equipment) [phone] [place] [address] Social History Tobacco Use Types Packs/Day Years [...] refill of dourdrem?? Spelling? Pharmacy # is [phone] Pt. Name: Khanh Rene : 1955 (home) Insurance: PCP: No PCP Comment: Expects Return Call at: [phone] or cell [phone] Monday02/17/09 Copy of this phone message given to Dr Frances and she will call patient to check on equipment order needed. Reece Ziegler RN documented in this encounter Plan of Treatment Not on filedocumented as of this encounter Visit Diagnoses Not on filedocumented in this encounter Care Teams Auditing Coder Relationship Specialty Start Date End Date Pcp, No PCP - General 01/24/08 03/12/09 [facility] [place] [address] documented as of this encounter
--- OUTSIDE RECORDS SUMMARY | 2022-05-30 15:03 | XMS_ITS | Encounter Summary ---
:1955 Author Organization [facility] Address [address] [place] [address] Phone Care Team Providers Name Role Phone Unavailable Primary Care Provider Unavailable Encounter Details Date Type Department Care Team Description 08/18/2005 Notes/Trans Unknown, Provider Social History Tobacco Use Types Packs/Day Years Used Date Smoking Tobacco: Never Assessed Sex Assigned at Date Recorded Not on file documented as of this encounter Progress Notes Interface, Professional Security Officer-In - 11/15/2005 1:28 AM CDT [facility] [id number] [facility] PATIENT: MICHEAL FLETCHER [id number] : 1955 [place] [address] DATE: 08/18/2005 Page (fax) The patient is [...] KEFLEX, SHELLFISH, AND AUGMENTIN. His primary care warehouse packer is Dr. Sameera Frances whom he sees [...] year's time. Omar Savage MD Received in Professional Security Officer: 08/22/2005 18:11:27 (M: 08/24/2005 17:01:36 cb) CS/cb Voice ID: [id number] Document ID: [id number] cc: This document was electronically signed by Omar Savage MD on 08/26/2005 10:47:02. ? documented in this encounter Plan of Treatment Not on filedocumented as of this encounter Visit Diagnoses Not on filedocumented in this encounter
--- OUTSIDE RECORDS SUMMARY | 2022-05-30 15:03 | XMS_ITS | Encounter Summary ---
:1955 Author Organization [facility] Address [address] [place] [address] Phone Care Team Providers Name Role Phone [...] PM Re sults for this CLINICAL NURSE REVIEWER procedure are i n the results section. PSA Routine 09/19/2001 5:05 PM Results f or this DIAGNOSTIC(PROSTATE CLINICAL NURSE REVIEWER procedur e are in SPE AG the results section. CREATININE, SERUM Routine 09/19/2001 5:05 PM Resu lts for this CLINICAL NURSE REVIEWER procedure are i n the results section. documented in this encounter Results PSA DIAGNOSTIC(PROSTATE SPE AG (09/19/2001 5:05 PM CLINICAL NURSE REVIEWER) athologist Signature PSA Diagnostic 0.5 0.00 - 4.00 HFA LAB NG/ML Specimen Anatomical Collection Method Collection Time Receive d Time (Source) Location / / Volume Laterality Blood 09/19/2001 5:05 PM 2 5:26 CLINICAL NURSE REVIEWER PM CLINICAL NURSE REVIEWER Omar Savage MD LABORATORY Performing Organization Address City/State/ZIP Code Phon e Number HFA LAB BUN (UREA NITROGEN) (09/19/2001 5:05 PM CLINICAL NURSE REVIEWER) athologist Signature BUN 13 5 - 25 MG/DL HFA LAB Specimen Anatomical Collection Method Collection Time Receive d Time (Source) Location / / Volume Laterality Blood 09/19/2001 5:05 PM 2 5:26 CLINICAL NURSE REVIEWER PM CLINICAL NURSE REVIEWER Omar Savage MD LABORATORY Performing Organization Address City/State/ZIP Code Phon e Number HFA LAB CREATININE, SERUM (09/19/2001 5:05 PM CLINICAL NURSE REVIEWER) P athologist Signature Creatinine 0.5 0.5 - 1.4 HFA LAB MG/DL Specimen Anatomical Collection Method Collection Time Receive d Time (Source) Location / / Volume Laterality Blood 09/19/2001 5:05 PM 2 5:26 CLINICAL NURSE REVIEWER PM CLINICAL NURSE REVIEWER Omar Savage MD LABORATORY Performing Organization Address City/State/ZIP Code Phon e Number HFA LAB documented in this encounter Visit Diagnoses Not on filedocumented in this encounter
--- OUTSIDE RECORDS SUMMARY | 2022-05-30 15:03 | XMS_ITS | Encounter Summary ---
:1955 Author Organization [facility] Address [address] [place] [address] Phone Care Team Providers Name Role Phone Unavailable Primary Care Provider Unavailable Reason for Visit Reason Comments Follow-up Encounter Details Date Type Department Care Team Description 07/31/2007 Office Visit [facility] Phys Med/Rehab Sameera Frances Q uadriplegia (); Clinic Neurogenic Bowel; [address] [facility] Sp[facility] P5.200 Mail Code P5 [place], [place] [address] [place], [place] [phone] (Wo rk) Social History Tobacco Use Types Packs/Day Years Used Date Smoking Tobacco: Never Alcohol Use Standard Drinks/Week Comments Yes 3.3 (1 standard drink = 0.6 oz pure alco hol) Sex Assigned at Date Recorded Not on file documented as of this encounter Last Filed Vital Signs Vital Sign Reading Time Taken Comments Blood Pressure 91/64 07/31/2007 3:21 PM GRANITE POLISHER Pulse 81 07/31/2007 3:21 PM GRANITE POLISHER Temperature - - Respiratory Rate - - Oxygen Saturation - - Inhaled Oxygen Concentration - - Weight - - Height 6 cm (2.36) 07/31/2007 3:21 PM GRANITE POLISHER Body Mass Index - - documented in this encounter Progress Notes Sameera Frances MD - 08/15/2007 11:05 [place] [address] MEDREC#: [id number] PATIENT: MICHEAL RENE : 1955 DATE: 07/31/2007 PHYSICAL MEDICINE AND REHABILITATION NEUROLOGY CLINIC ADDENDUM: Again, under recommendations, I did talk to him that now he is 49 that he really should have an interactive media director who can coordinate his prophylactic care while he ages, in particular heart disease and prostate concerns. He is not interested and would just prefer to treat things as they come up, and declined my offers to arrange him with a Primary Care physician. Sameera Frances MD Staff Physician Physical Medicine and Rehabilitation Service Received in Quality Director: 08/02/2007 15:01:18 (M: 08/06/2007 11:31:55/dd:st) CLR/dd:st Voice ID: [id number] Document ID: [id number] cc: ITE POLISHER Sameera Frances MD - 08/15/2007 11:05 [place] [address] [facility]#: [id number] PATIENT: MICHEAL RENE : 1955 DATE: 07/31/2007 [...] father and a grandfather. He lives in [place] and just recently he has started to [...] He has just received a new manual Maganda [employer] wheelchair with a J-cushion and he is [...] he likes because of stability. ASSESSMENT: C7 [place] [employer] (AUDREY) A chronic spinal [...] Physical Medicine and Rehabilitation Service Received in Quality Director: 08/02/2007 14:58:39 (M: 08/06/2007 11:12:53/dd:st) CLR/dd:st Voice ID: [id number] Document ID: [id number] cc: ITE POLISHER Sameera Frances MD - 08/02/2007 3:01 PM CST HPI ROS Physical Exam See my dictation for today. ITE POLISHER documented in this encounter Plan of Treatment Not on filedocumented as of this encounter Visit Diagnoses Diagnosis Quadriplegia () Quadriplegia, unspecified Neurogenic bowel Spastic Abnormal involuntary movements documented in this encounter
--- OUTSIDE RECORDS SUMMARY | 2022-05-30 15:03 | XMS_ITS | Encounter Summary ---
:1955 Author Organization [facility] Address [address] [place], [place] [address] [place] [address] Phone Care Team Providers Name Role Phone Unavailable Primary Care Provider Unavailable Encounter Details Date Type Department Care Team Description 04/03/1997 Orders Only [facility] Ultrasound [address] [place], [place] [address] Social History Tobacco Use Types Packs/Day Years [...] CDT Final Report EXAM: ?? RENAL US: SENECA KIDNEYS ?- ??04/03/1997 01:10PM ?? EXAM: ??RENAL [...] - 03/10/2006 Final Report EXAM: RENAL US: SENECA KIDNEYS - 997 01:10PM EXAM: RENAL ULTRASOUND [...]
--- OUTSIDE RECORDS SUMMARY | 2022-05-30 15:03 | XMS_ITS | Clinical Summary ---
:1955 Author Organization [facility] [place] [address] Care Team Providers Name Role Phone Ana Mayers Unavailable Alex Mata MD Primary Care Provider [phone] Allergies Active Allergy Reactions Severity Noted Date Comments Blood-Group Specific Other - Describe In 04/19/2021 Patient has Levi saucedo Substance Comment Field (Fya) antibody . Blood products may be delayed. Dra renee patient 24 hour s prior to transfusion. Fo r InMyRoom testing, draw o ne red top and [...] 12/26/2008, 09/01/2006 Medical Devices Implanted Type Area Customer Program Specialist Device Shelf Model / Identifier Expiration Serial / Date Lot Standard Pacemaker-12/21/2012 Standard Medtronic [id number] / Implanted: 12/21/2012 by Judson Jenkins MD (Quantity not on file) Pacemaker [id number] / Procedures Procedure Name Priority Date/Time Associated Diagnosis Comme nts CREATININE Routine 05/25/2022 2:07 Osteomyelitis of Results for this PM CDT vertebra, sacral and procedu re are in sacrococcygeal region the re sults (HC) section. Pressure ulcer of right buttock, stage 4 (HC) EXTRA TUBE RED Routine 05/25/2022 2:07 Osteomyelitis [...] (ABNORMAL) SEDIMENTATION RATE (05/25/2022 2:07 PM CDT) [facility] gist Method Time Signature SEDIMENTATION 120 (H) <20 mm/hr 05/25/2022 [facility] [place] RATE 2:55 PM CDT [facility] Specimen Anatomical Collection Method Collection Time Receive d Time (Source) Location / / Volume Laterality Blood BLOOD SPECIMEN / Client Collect / 05/25/2022 2:07 PM 1 07/25/2021 2:47 Unknown Unknown CDT PM CDT Alex Mata MD HEMATOLOGY Performing Organization Address City/State/ZIP Code Phon e Number [facility] [address] [place] [address] EXTRA TUBE RED (05/25/2022 2:07 PM CDT) Specimen Anatomical Collection Method Collection Time Receive d Time (Source) Location / / Volume Laterality Blood BLOOD SPECIMEN / Client Collect / 05/25/2022 2:07 PM 1 07/25/2021 2:49 Unknown Unknown CDT PM CDT Alex Mata MD LABORATORY Performing Organization Address City/State/ZIP Code Phon e Number [facility] [address] [place] [address] (ABNORMAL) CBC WITH AUTO DIFFERENTIAL (05/25/2022 2:07 PM CDT) [facility] Method Time Signature WHITE BLOOD 6.6 4.5 - 05/25/2022 [place] COUNT 11.0 2:58 PM CDT [facility] thou/cu LABORATORY mm RED BLOOD COUNT 3.31 (L) 4.30 - 05/25/2022 [place] 5.90 2:58 PM CDT [facility] mil/cu mm LABORATORY HEMOGLOBIN 9.5 (L) 13.5 - 05/25/2022 [place] 17.5 g/dL 2:58 PM T [facility] LABORATORY HEMATOCRIT 30.6 (L) 37.0 - 05/25/2022 [place] 53.0 % 2:58 PM T [facility] LABORATORY MCV 92 80 - 100 05/25/2022 [place] fL 2:58 PM T [facility] LABORATORY MCH 28.7 26.0 - 05/25/2022 [place] 34.0 pg 2:58 PM T [facility] LABORATORY MCHC 31.0 (L) 32.0 - 05/25/2022 [place] 36.0 g/dL 2:58 PM T [facility] LABORATORY RDW 13.4 11.5 - 05/25/2022 [place] 15.5 % 2:58 PM T [facility] LABORATORY PLATELET COUNT 458 (H) 140 - 440 05/25/2022 [place] thou/cu 2:58 PM CDT [facility] mm LABORATORY MPV 7.9 6.5 - 05/25/2022 [place] 11.0 fL 2:58 PM [facility] LABORATORY % NEUT 65.6 % 05/25/2022 [place] 2:58 PM [facility]T [facility] LABOR[facility]ORY % LYMPH 22.6 % 05/25/2022 [place] 2:58 PM [facility]T [facility] LABOR[facility]ORY % MONO 7.8 % 05/25/2022 [place] 2:58 PM [facility]T [facility] LABOR[facility]ORY % EOS 3.5 % 05/25/2022 [place] 2:58 PM [facility]T [facility] LABOR[facility]ORY % BASO 0.5 % 05/25/2022 [place] 2:58 PM T [facility] LABORATORY ABSOLUTE 4.4 1.7 - 7.0 05/25/2022 [place] NEUTROPHILS thou/cu 2:58 PM T [facility] mm LABORATORY ABSOLUTE 1.5 0.9 - 2.9 05/25/2022 [place] LYMPHOCYTES thou/cu 2:58 PM [facility] CENTER mm LABORATORY ABSOLUTE 0.5 <0.9 05/25/2022 [place] MONOCYTES thou/cu 2:58 PM [facility] CENTER mm LABORATORY ABSOLUTE 0.2 <0.5 05/25/2022 [place] EOSINOPHILS thou/cu 2:58 PM [facility] CENTER mm LABORATORY ABSOLUTE 0.0 <0.3 05/25/2022 [place] BASOPHILS thou/cu 2:58 PM [facility] mm LABORATORY Specimen Anatomical Collection Method Collection Time Receive d Time (Source) Location / / Volume Laterality Blood BLOOD SPECIMEN / Client Collect / 05/25/2022 2:07 PM 1 07/25/2021 2:47 Unknown Unknown CDT PM CDT Alex Mata MD HEMATOLOGY Performing Organization Address City/State/ZIP Code Phon e Number [facility] [address] [place] [address] EXTRA TUBE LIGHT GREEN (05/25/2022 2:07 PM CDT) Specimen Anatomical Collection Method Collection Time Receive d Time (Source) Location / / Volume Laterality Blood BLOOD SPECIMEN / Client Collect / 05/25/2022 2:07 PM 1 07/25/2021 2:49 Unknown Unknown CDT PM CDT Alex Mata MD LABORATORY Performing Organization Address City/State/ZIP Code Phon e Number [facility] [address] [place] [address] EXTRA TUBE LAVENDER (05/25/2022 2:07 PM CDT) Specimen Anatomical Collection Method Collection Time Receive d Time (Source) Location / / Volume Laterality Blood BLOOD SPECIMEN / Client Collect / 05/25/2022 2:07 PM 1 07/25/2021 2:49 Unknown Unknown CDT PM CDT Alex Mata MD LABORATORY Performing Organization Address City/State/ZIP Code Phon e Number [facility] [address] [place] [address] BUN (05/25/2022 2:07 PM CDT) athologist Signature BUN 16 8 - 25 05/25/2022 [place] mg/dL 3:09 PM [facility] LABORATORY Specimen Anatomical Collection Method Collection Time Receive d Time (Source) Location / / Volume Laterality Blood BLOOD SPECIMEN / Client Collect / 05/25/2022 2:07 PM 1 07/25/2021 2:47 Unknown Unknown CDT PM CDT Alex Mata MD CHEMISTRY Performing Organization Address City/[facility] Code Phon e Number [facility] [address] [place] [address] (ABNORMAL) CREATININE (05/25/2022 2:07 PM CDT) athologist Signature CREATININE 0.54 (L) 0.72 - 05/26/2022 [place] 1.25 mg/dL 11:43 AM [facility] LABORATORY eGFR >90 >90 05/26/2022 [place] mL/min/1.7 11:43 AM [facility] 3m2 LABORATORY Comment: As of 2021, eGFR is calcu lated by the CKD-EPI creatinine equation without race adjustment. eGFR can be inf luenced by muscle mass, exercise, and diet. The reported eGFR is an estimation only and is only applicable if the renal function is stable. Specimen Anatomical Collection Method Collection Time Receive d Time (Source) Location / / Volume Laterality Blood BLOOD SPECIMEN / Client Collect / 05/25/2022 2:07 PM 1 07/25/2021 2:47 Unknown Unknown CDT PM CDT Alex Mata MD CHEMISTRY Performing Organization Address City/[facility] Code Phon e Number [facility] [address] [place] [address] (ABNORMAL) C-REACTIVE PROTEIN (05/25/2022 2:07 PM CDT) [facility] [place] Signature C-REACTIVE 4.68 (H) <0.50 05/25/2022 [place] PROTEIN mg/dL 3:08 PM [facility] LABORATORY Specimen Anatomical Collection Method Collection Time Receive d Time (Source) Location / / Volume Laterality Blood BLOOD SPECIMEN / Client Collect / 05/25/2022 2:07 PM 1 07/25/2021 2:47 Unknown Unknown CDT PM CDT Alex Mata MD CHEMISTRY Performing Organization Address City/[facility]/ZIP [facility] Phon e Number [facility] [address] [place] [address] AST (SGOT) (05/25/2022 2:07 PM CDT) P athologist Signature AST (SGOT) 21 2 - 40 IU/L 05/25/2022 [place] 3:11 PM CDT [facility] Specimen Anatomical Collection Method Collection Time Receive d Time (Source) Location / / Volume Laterality Blood BLOOD SPECIMEN / Client Collect / 05/25/2022 2:07 PM 1 07/25/2021 2:47 Unknown Unknown CDT PM CDT Alex Mata MD CHEMISTRY Performing Organization Address City/[facility]/ZIP Code Phon e Number [facility] [address] [place] [address] LAB TRACKING EVENT (05/18/2022 4:15 PM CDT) Specimen Anatomical Collection Method Collection Time Receive d Time (Source) Location / / Volume Laterality Other (Other) Client Collect / 05/18/2022 4:15 PM 04/24 5:18 Unknown CDT PM CDT Jimena Fleming MD LAB BILL ONLY Performing Organization Address City/[facility]/ZIP [facility] Phon e Number [facility] [address] [place] [address] LABORATORY-CENTRAL 2000 LABORATORY PATH TISSUE EXAM (05/17/2022 4:15 PM CDT) Component Value Ref Test Analysis Performed At Patholo gist Range Method Time Signature Case Report Pathology Report ?Case: [id number] ? 05/20/2022 KATHLEEN Authorizing Provider: ??Jimena Higgins MD ?Collected: ? 05/17/2022 1615 ? 11:49 AM [facility] Ordering Location: ? [facility] C[facility] LAB ?Received: ?05/18/2022 1847 ? CDT [place] BORATORY-C Pathologist: ? Sweetie Daily MD ? ENTRAL Specimen: ?Bone Biopsy, ISCHIUM ? LABORATORY Final A) BONE, ISCHIUM, BIOPSY: 05/20/2022 [facility] Electronically Diagnosis 1. Segment of bone with necr osis, acute osteomyelitis, and chronic osteomyelitis 11:49 AM [facility] signed by Abimbola, 2. No evidence of malignancy CDT L ABORATORY-C MD Sweetie on ENTRAL 05/20/2022 at LABORATORY 11:49 AM Comment A) The 05/20/2022 [facility] interpretation of 11:49 AM [facility] these results is CDT LABORATORY-C based in part on ENTRAL the LABORATORY decalcification procedure performed. Clinical Osteomyelitis 05/20/2022 [facility] Information 11:49 AM [facility] CDT LABORATORY-C ENTRAL LABORATORY Gross A) Received in formalin, lab eled with the patient's name and ischial bone, is an aggregate of youngblood-pink cancellous bone fragments, measuring 1.2 x 0.2 x 1.0 cm in aggregate. ??Specimen is submitted entirely in 1 cassette after decalcification. 05/20/2022 [facility] Description 11:49 AM [facility] JAL 05/18/2022 CDT LABORATORY-C ENTRAL LABORATORY Microscopic The final diagnosis is based on microscopic examination of appropriate sections of all specimens. 05/20/2022 [facility] Description 11:49 AM [facility]ALTH CDT LABORATORY-C ENTRAL LABORATORY Additional 05/20/2022 [facility] Information Interpreted at [facility], Central Laboratory - [address], [place] [address] 11:49 AM [facility] CDT LABORATORY-C ENTRDC LABORATORY Specimen Anatomical Collection Method Collection Time Receive d Time (Source) Location / / Volume Laterality Other (Bone 05/17/2022 4:15 PM 6:47 Biopsy) CDT PM CDT Jimena Fleming MD PATHOLOGY/CYTOLOGY Performing Organization Address City/State/ZIP Code Phon e Number [facility] [address] [place] [address] LABORATORY-CENTRAL 1999 LABORATORY (ABNORMAL) REFERRAL ID/SUSC,NONURINE (05/16/2022 9:56 PM CDT) [facility] Intrinsity Method Time Signature CULTURE RESULT (A) 05/21/2022 [facility] 11:43 AM CDT LABORATORY-CE NTRAL LABORATORY CULTURE Streptococcus 05/21/2022 [facility] anginosus 11:43 AM CDT LABORATORY-CE NTRAL [...] Organization Address City/State/ZIP Code Phon e Number [facility] [address] [place] [address] LABORATORY-CENTRAL 1999 LABORATORY (ABNORMAL) REFERRAL ID ONLY,NONURINE (05/16/2022 9:00 AM CDT) [facility] Method Time Signature CULTURE RESULT (A) 05/19/2022 [facility] 3:00 PM CDT LABORATORY-CE NTRAL LABORATORY CULTURE Streptococcus 05/19/2022 [facility] 3:00 PM CDT LABORATORY-CE NTRAL LABORATORY Specimen Anatomical Collection Method Collection Time Receive d Time (Source) Location / / Volume Laterality Other SPECIMEN FROM Client Collect / 05/16/2022 9:00 AM 04/24 WOUND / Unknown Unknown CDT 10:38 PM CDT Yamile Conway NP MICROBIOLOGY Performing Organization Address City/State/ZIP Code Phon e Number [facility] [address] [place] [address] LABORATORY-CENTRAL 2000 LABORATORY from Last 3 Months Additional Health [...] 12 months since positive culture): resides in acute/long term care phlebotomist care, receiving hemodialysis, has chronic open wounds/skin damage, has long-te rm percutaneous indwelling medical devic es Exclusions for nares collection (if <12 months since positive culture) include all of the previous exclusions plus patients on antibiotics 7 days prior to collection Insurance Payer Benefit Plan / Subscriber ID Effective Dates Phone Addre ss Type Group WC WORKERS COMP WC WESTERN [id number] 1989-Prese C/O [place] [employer] [address] [place] [address] WC WORKERS COMP WC WESTERN [id number] 1989-Prese C/O [employer] [address] [place] [address] MEDICARE PART A - MEDICARE PART [id number] 1991-Presen ATTN: CLAIMS HB USE ONLY A HB ONLY t [address] [place] [address] [facility] MR [id number] 2020-Presen [address] [address] [place] [address] [employer] Workers Comp Self 1955 [id number] [employer] [place]EN[place] [id number] [employer] Workers Comp Self 1955 [id number] [employer] [address] [place] [id number] Khanh Rene Personal/Family Self 1955 1 [id number] [employer] [address] [id number] Advance Directives Latest Code Status on File Code Status Date Activated Date Inactivated Comments Full Code 03/05/2020 6:59 AM 03/09/2020 8:07 PM Code Status Discussion: Not Discussed Full Code 04/25/2016 3:57 PM 05/10/2016 8:47 PM Full Code 2016 6:44 AM 03/14/2016 5:37 PM Full Code 12/16/2015 12:49 PM 12/25/2015 1:24 PM Full Code 12/15/2015 3:46 PM 12/16/2015 12:49 PM Care Teams Corporate Legal Manager Relationship Specialty Start Date End Date Alex Mata MD PCP - General Family Practice 02/04/201999 [place] [address] Ana Mayers Nurse Practitioner 03/02/[address] [place] [id number]
--- OUTSIDE RECORDS SUMMARY | 2022-05-30 15:03 | XMS_ITS | Encounter Summary ---
:1955 Author Organization [facility] Address [address] [place] [address] Phone Care Team Providers Name Role Phone Unavailable Primary Care Provider Unavailable Encounter Details Date Type Department Care Team Description 05/10/2005 EWeb History [facility] Sameera Frances MD [address] [facility] [address] [place], [place] [address] Mail Code P5 [place] [address] (Wo rk) Social History Tobacco Use Types Packs/Day Years Used Date Smoking Tobacco: Never Assessed Sex Assigned at Date Recorded Not on file documented as of this encounter Plan of Treatment Not on filedocumented as of this encounter Visit Diagnoses Not on filedocumented in this encounter
--- OUTSIDE RECORDS SUMMARY | 2022-05-30 15:03 | XMS_ITS | Encounter Summary ---
:1955 Author Organization [facility] Address [address] [place] [address] Phone Care Team Providers Name Role Phone [...] 08/18/2005 12:00 AM R esults for this CUSTOMER CARE AGENT procedure are i n the results section. PSA-SCREENING(MT) Routine 08/18/2005 12:00 AM Res ults for this CUSTOMER CARE AGENT procedure are i n the results section. CREATININE, SERUM Routine 08/18/2005 12:00 AM Res ults for this CUSTOMER CARE AGENT procedure are i n the results section. documented in this encounter Results PSA-SCREENING(MT) (08/18/2005 12:00 AM CUSTOMER CARE AGENT) athologist Signature PSA Screen 2.6 0.00 - 4.00 [facility] NG/ML Specimen (Source) Anatomical Collection Method Collection Time Re ceived Time Location / / Volume Laterality Blood 08/18/2005 08/18/2005 5:07 PM CUSTOMER CARE AGENT Omar Savage MD LABORATORY Performing Organization Address City/State/ZIP Code Phon e Number [facility] LAB BUN (UREA NITROGEN) (08/18/2005 12:00 AM CUSTOMER CARE AGENT) athologist Signature BUN 9 5 - 25 MG/DL [facility] Specimen (Source) Anatomical Collection Method Collection Time Re ceived Time Location / / Volume Laterality Blood 08/18/2005 08/18/2005 5:07 PM CUSTOMER CARE AGENT Omar Savage MD LABORATORY Performing Organization Address City/State/ZIP Code Phon e Number [facility] LAB CREATININE, SERUM (08/18/2005 12:00 AM CUSTOMER CARE AGENT) P athologist Signature Creatinine <0.5 0.5 - 1.4 [facility] MG/DL Comment: REPEATED Specimen (Source) Anatomical Collection Method Collection Time Re ceived Time Location / / Volume Laterality Blood 08/18/2005 08/18/2005 5:07 PM CUSTOMER CARE AGENT Omar Savage MD LABORATORY Performing Organization Address City/State/ZIP Code Phon e Number [facility] LAB documented in this encounter Visit Diagnoses Not on filedocumented in this encounter
--- OUTSIDE RECORDS SUMMARY | 2022-05-30 15:03 | XMS_ITS | Encounter Summary ---
:1955 Author Organization [facility] Address [address] [place] [address] Phone Care Team Providers Name Role Phone Unavailable Primary Care Provider Unavailable Encounter Details Date Type Department Care Team Description 09/02/2005 Letters(Tab) Unknown, Provider Social History Tobacco Use Types Packs/Day Years Used Date Smoking Tobacco: Never Assessed Sex Assigned at Date Recorded Not on file documented as of this encounter Progress Notes Interface, Senior Reservations Agent-In - 11/15/2005 1:36 AM CDT [facility] [address] [facility], [address] [place], [place] [address] September 02, 2005 Mr. Micheal Rene [address] [place] [address] RE: MICHEAL RENE MR#: [id number] Dear Mr. Rene: From your recent Urology Clinic visit, your prostate specific antigen value remains low at 2.6. We will communicate with you once your other screening studies and x-ray studies have been completed. Best wishes. Please feel free to contact me for questions. Sincerely, Omar Savage MD Received in Senior Reservations Agent: 09/02/2005 14:40:28 (M: 09/03/2005 06:57:04 dma) CS/fidelina Voice ID: [id number] Document ID: [id number] cc: This document was electronically signed by Omar Savage MD on 09/06/2005 18:13:45. documented in this encounter Plan of Treatment Not on filedocumented as of this encounter Visit Diagnoses Not on filedocumented in this encounter
--- OUTSIDE RECORDS SUMMARY | 2022-05-30 15:03 | XMS_ITS | Encounter Summary ---
:1955 Author Organization [facility] Address [address] [place] [address] Phone Care Team Providers Name Role Phone Unavailable Primary Care Provider Unavailable Encounter Details Date Type Department Care Team Description 09/29/2006 Letters(Tab) [facility] U[facility] Clinic Omar Savage MD [facility] [address] [facility] [address] [place], [place] [address] Social History Tobacco Use Types Packs/Day Years Used Date Smoking Tobacco: Never Assessed Sex Assigned at Date Recorded Not on file documented as of this encounter Progress Notes Omar Savage MD - 09/29/2006 4:34 PM CST [facility] [address] [place] [address] 09/29/2006 TO: Micheal Rene [address] [place], [place] [address] RE: MICHEAL RENE MR#: [id number] Dear Mr. Rene: From your recent Urology Clinic visit your prostate specific antigen value remains in a normal level and is 2.87. Best wishes and please feel free to contact us for questions. Sincerely, Omar Savage MD Received in Terrazzo Journeyman: 09/29/2006 12:33:54 (M: 09/29/2006 13:29:47 kms) CS/kms Voice ID: [id number] Document ID: [id number] cc: Micheal Rene [id number] [facility] [address] VIOR CLINICIAN documented in this encounter Plan of Treatment Not on filedocumented as of this encounter Visit Diagnoses Not on filedocumented in this encounter
--- OUTSIDE RECORDS SUMMARY | 2022-05-30 15:03 | XMS_ITS | Encounter Summary ---
:1955 Author Organization [facility] Address [address] [place] [address] Phone Care Team Providers Name Role Phone Unavailable Primary Care Provider Unavailable Encounter Details Date Type Department Care Team Description 07/03/1995 Orders Only [facility] [place]RAY [address] [place], [place] [address] Social History Tobacco Use Types Packs/Day Years Used Date Smoking Tobacco: Never Assessed Sex Assigned at Date Recorded Not on file documented as of this encounter Plan of Treatment Not on filedocumented as of this encounter Procedures Procedure Name Priority Date/Time Associated Diagnosis Comme nts XR COCCYX AP & LAT Routine 07/03/1995 2:10 PM Res ults for this CLINICAL PROGRAMMER procedure are i n the results section. documented in this encounter Results XR COCCYX AP & LAT (07/03/1995 2:10 PM CLINICAL PROGRAMMER) Anatomical Region Laterality Modality Lumbar Spine Computed Radiography Specimen (Source) Anatomical Collection Method Collection Time Re ceived Time Location / / Volume Laterality 07/03/1995 2:10 PM CLINICAL PROGRAMMER Impressions 07/05/1995 12:33 PM CLINICAL PROGRAMMER : ??Please see Sacrum report dated 07/03/95 1410. ASI END: RELEASE RESULTS: (Y) END RESULT: IMPRESSION Narrative 07/05/1995 12:33 PM CLINICAL PROGRAMMER Final Report EXAM: ?? COCCYX AP & [...]
--- OUTSIDE RECORDS SUMMARY | 2022-05-30 15:03 | XMS_ITS | Encounter Summary ---
:1955 Author Organization [facility] Address [address] [place] [address] Phone Care Team Providers Name Role Phone Unavailable Primary Care Provider Unavailable Encounter Details Date Type Department Care Team Description 10/22/2007 Abstract HFA [facility] Abstract, Provider [address] [place], [place] [address] Social History Tobacco Use Types [...]
--- OUTSIDE RECORDS SUMMARY | 2022-05-30 15:03 | XMS_ITS | Encounter Summary ---
:1955 Author Organization [facility] Address [address] [place] [address] Phone Care Team Providers Name Role Phone Unavailable Primary Care Provider Unavailable Encounter Details Date Type Department Care Team Description 07/03/1995 Orders Only [facility] [place] [address] [place], [place] [address] Social History Tobacco Use Types Packs/Day Years Used Date Smoking Tobacco: Never Assessed Sex Assigned at Date Recorded Not on file documented as of this encounter Plan of Treatment Not on filedocumented as of this encounter Procedures Procedure Name Priority Date/Time Associated Diagnosis Comme nts XR SACRUM AP & LAT Routine 07/03/1995 2:10 PM Res ults for this ASSURANCE MANAGER INSURANCE procedure are i n the results section. XR COCCYX AP & LAT Routine 07/03/1995 2:10 PM Res ults for this ASSURANCE MANAGER INSURANCE procedure are i n the results section. documented in this encounter Results XR COCCYX AP & LAT (07/03/1995 2:10 PM ASSURANCE MANAGER INSURANCE) Anatomical Region Laterality Modality Lumbar Spine Computed Radiography Specimen (Source) Anatomical Collection Method Collection Time Re ceived Time Location / / Volume Laterality 07/03/1995 2:10 PM ASSURANCE MANAGER INSURANCE Impressions 07/05/1995 12:33 PM ASSURANCE MANAGER INSURANCE : ??Please see Sacrum report dated 07/03/95 1410. ASI END: RELEASE RESULTS: (Y) END RESULT: IMPRESSION Narrative 07/05/1995 12:33 PM ASSURANCE MANAGER INSURANCE Final Report EXAM: ?? COCCYX AP & [...] SACRUM AP & LAT (07/03/1995 2:10 PM ASSURANCE MANAGER INSURANCE) Anatomical Region Laterality Modality Lumbar Spine Computed Radiography Specimen (Source) Anatomical Collection Method Collection Time Re ceived Time Location / / Volume Laterality 07/03/1995 2:10 PM ASSURANCE MANAGER INSURANCE Impressions 07/05/1995 12:33 PM ASSURANCE MANAGER INSURANCE : ??Evidence of bone loss or destruction [...] END RESULT: IMPRESSION Narrative 07/05/1995 12:33 PM ASSURANCE MANAGER INSURANCE Final Report EXAM: ?? SACRUM AP & [...] RELEASE RESULTS: (Y) END RESULT: IMPRESSION Bubba Tvaarez MD X-RAY documented in this encounter Visit Diagnoses Not on filedocumented in this encounter
--- OUTSIDE RECORDS SUMMARY | 2022-05-30 15:03 | XMS_ITS | Encounter Summary ---
:1955 Author Organization [facility] Address [address] [facility] [place] [address] Phone Care Team Providers Name Role Phone Unavailable Primary Care Provider Unavailable Encounter Details Date Type Department Care Team Description 01/29/2001 Orders Only [facility] EMG Sameera Frances MD [address] [facility] [address] [place], [place] [address] Mail Code [address] [place] [address] (Wo rk) Social History Tobacco [...] Results URINE CX (01/29/2001 3:37 PM CDT) [facility] Method Time Signature Urine Cult [facility] LAB Test Name ? Collected on --------- [...] PM 01/31 CDT 10:25 AM CDT Narrative [facility] LAB - 01/31/2001 10:25 AM CDT Ordered by an unspecified provider. Provider Unknown LAB MICROBIOLOGY Performing Organization Address City/State/ZIP Code Phon e Number [facility] [place] [address] LAB URINALYSIS, TOTAL (01/29/2001 3:37 PM CDT) [facility] Method Time Signature Color YELLOW YELLOW [facility] LAB Appearance CLEAR CLEAR [facility] LAB Urine Glucose NEGATIVE NEGATIVE [facility] LAB Bili UA NEGATIVE NEGATIVE [facility] LAB Ketones NEGATIVE NEGATIVE [facility] LAB Specific [place] 1.010 1.003 - [facility] LAB 1.030 Blood Ur TRACE Neg-Trace [facility] LAB PH Urine 6.5 5.0 - 7.0 [facility] LAB Protein Ur NEGATIVE NEGATIVE [facility] LAB Urobilinogen 0.2 0.2 - 1.0 [facility] LAB EU/dL Nitrite Ur NEGATIVE NEGATIVE [facility] LAB Leuk Est TRACE Neg-Trace [facility] LAB Microscopic [facility] LAB WBC Ur 0 - 5 0 - 5 [facility] LAB Trans Epith 1+ [facility] LAB Sperm 1+ [facility] LAB Specimen Anatomical Collection Method Collection Time Receive d Time (Source) Location / / Volume Laterality Urine 01/29/2001 3:37 PM 1 4:56 CDT PM CDT Narrative [facility] LAB - 01/29/2001 4:56 PM CDT Ordered by an unspecified provider. Provider Unknown LABORATORY Performing Organization Address City/State/ZIP Code Phon e Number [facility] [place] [address] LAB documented in this encounter Visit Diagnoses Not on filedocumented in this encounter
--- OUTSIDE RECORDS SUMMARY | 2022-05-30 15:03 | XMS_ITS | Encounter Summary ---
:1955 Author Organization [facility] Address [address] [place] [address] Phone Care Team Providers Name Role Phone Unavailable Primary Care Provider Unavailable Encounter Details Date Type Department Care Team Description 03/04/2003 EWeb History [facility] [place] [facility] Bubba Tavarez MD [address] Mail [address] [place], [place] [address] [place] [address] [phone] (Wo rk) Social History Tobacco Use Types Packs/Day Years Used Date Smoking Tobacco: Never Assessed Sex Assigned at Date Recorded Not on file documented as of this encounter Plan of Treatment Not on filedocumented as of this encounter Visit Diagnoses Not on filedocumented in this encounter
--- OUTSIDE RECORDS SUMMARY | 2022-05-30 15:03 | XMS_ITS | Encounter Summary ---
:1955 Author Organization [facility] Address [address] [place], [place] [address] [place] [address] Phone Care Team Providers Name Role Phone Unavailable Primary Care Provider Unavailable Encounter Details Date Type Department Care Team Description 12/09/1998 Orders Only [facility] MRI G[address] [place], [place] [address] Social History Tobacco Use Types [...]
--- OUTSIDE RECORDS SUMMARY | 2022-05-30 15:03 | XMS_ITS | Encounter Summary ---
:1955 Author Organization [facility] Address [address] [place] [address]. [place] [address] Phone Care Team Providers Name Role Phone Unavailable Primary Care Provider Unavailable Encounter Details Date Type Department Care Team Description 10/12/2001 Orders Only [facility] [place] [address] [place], [place] [address] Social History Tobacco Use Types Packs/Day Years Used Date Smoking Tobacco: Never Assessed Sex Assigned at Date Recorded Not on file documented as of this encounter Plan of Treatment Not on filedocumented as of this encounter Procedures Procedure Name Priority Date/Time Associated Diagnosis Comme nts ULT KIDNEYS Routine 10/12/2001 11:22 AM Results for this COMPLETE MOVIE MACHINE OPERATOR procedure are i n the results section. documented in this encounter Results ULT KIDNEY COMPLETE (10/12/2001 11:22 AM MOVIE MACHINE OPERATOR) Anatomical Region Laterality Modality Abdomen Ultrasound Specimen (Source) Anatomical Collection Method Collection Time Re ceived Time Location / / Volume Laterality 10/12/2001 11:22 AM MOVIE MACHINE OPERATOR Impressions 10/15/2001 4:06 PM MOVIE MACHINE OPERATOR : 1. ??NO RENAL STONES IDENTIFIED. 2. ??MILD CORTICAL THINNING BILATERALLY. ??THIS MAY INDICATE MEDICAL RENAL DISEASE. I have personally reviewed the image(s) and initial interpretation, and I agree with the findings. ASI END: RELEASE RESULTS: (Y) END RESULT: IMPRESSION Narrative 10/15/2001 4:06 PM MOVIE MACHINE OPERATOR Final Report EXAM: ?? RENAL US: NIKOLAI KIDNEYS ?- ??10/12/2001 11:22AM SUSPECTED PATHOLOGY: SYMPTOMS [...] the original. Final Report EXAM: RENAL US: NIKOLAI KIDNEYS - 002 11:22AM SUSPECTED PATHOLOGY: SYMPTOMS [...]
--- OUTSIDE RECORDS SUMMARY | 2022-05-30 15:03 | XMS_ITS | Encounter Summary ---
:1955 Author Organization [facility] Address [address] [place] [address] Phone Care Team Providers Name Role Phone Unavailable Primary Care Provider Unavailable Encounter Details Date Type Department Care Team Description 05/10/2005 Notes/Trans Unknown, Provider Social History Tobacco Use Types Packs/Day Years Used Date Smoking Tobacco: Never Assessed Sex Assigned at Date Recorded Not on file documented as of this encounter Progress Notes Interface, Fluxer-In - 11/15/2005 12:30 AM CDT [facility] MEDREC#: [id number] [place] [address] PATIENT: MICHEAL FLETCHER : 1955 NARRATIVE NOTES [...] a father and a grandfather living in [place]. REVIEW OF SYSTEMS: A total of ten [...] depression. Equipment - he has a new Curoverseie wheelchair and a J cushion with extra [...] Physical Medicine and Rehabilitation Service Received in Fluxer: 05/10/2005 17:00:07 (M: 05/12/2005 12:51:56/[facility]) [facility]/cme Voice ID: [id number] Document ID: [id number] cc: This document was electronically signed by Sameera Frances MD on 06/07/2005 14:43:43. documented in this encounter Plan of Treatment Not on filedocumented as of this encounter Visit Diagnoses Not on filedocumented in this encounter
--- OUTSIDE RECORDS SUMMARY | 2022-05-30 15:03 | XMS_ITS ---
:1955 Author Care Team Providers Name Role Phone CHETNA MERAZ MD Primary Care Provider [phone] ANN MCLAININA Children'S Nursery Assistant [phone] Allergies Code Code System Name Reaction Severity [...] MOUTH ONCE A DAY FOR 10 DAYS cualohxf-snakzdldp-snfkfdbpc 3.5 mg-10,000 unit/mL-1 % ear d rops,susp [...] Name Performed by ? 09/27/2021 US, Kidney [facility] Radiology Department [address] [place] [address] (Work Place) Results Lab Results Date Name Specimen Result Interpretation Description Value Range Status Address ? 05/06/2021 Culture, BLDV ABNORMAL Final Report microbiology ? Final [place] Urine results Urology [facility] Lab: [address] [facility] [address], [place] 05/06/2021 Urinalysis ? No ? ? ? , Dipstick observation recorded. 02/18/2021 Culture, UR ABNORMAL Final Report microbiology ? Final [place] Urine results [facility]rology [facility] [place] Lab: [address], [place] ? Urinalysis ? Color-Status Yellow ? ? [...] ? ? ? Sp 1.015 ? ? [place]-Statu s ? ? ? Nitrates-Sta positive ? ? tus ? ? ? Blood-Status Trace ? Leuko-Status Large ? ? Past Encounters 09/27/2021 Neurogenic Bladder; Spinal Cord Injury; Spasm of Bladder; Recurrent Urinary Tract Infection Jono Pagan MD: [address] [place] [address], Ph. 05/06/2021 Abnormal Urine Jono Pagan MD: [address] [place] [address], Ph. 02/18/2021 Neurogenic Bladder; Spinal Cord Injury; Spasm of Bladder; Recurrent Urinary Tract Infection; Acute Urinary Tract Infection Jono Pagan MD: [address] [place] [address], Ph. Social History Tobacco Smoking Status Former [...]
--- OUTSIDE RECORDS SUMMARY | 2022-05-30 15:03 | XMS_ITS | Encounter Summary ---
:[address] [facility] Address [address] [place] [address] Phone Care Team Providers Name Role Phone [...]
--- OUTSIDE RECORDS SUMMARY | 2022-05-30 15:03 | XMS_ITS | Encounter Summary ---
:1955 Author Organization [facility] Address [address] [place] [address] Phone Care Team Providers Name Role Phone [...]
--- OUTSIDE RECORDS SUMMARY | 2022-05-30 15:03 | XMS_ITS | Encounter Summary ---
:1955 Author Organization [facility] Address [address] [place] [address] Phone Care Team Providers Name Role Phone [...]
--- OUTSIDE RECORDS SUMMARY | 2022-05-30 15:03 | XMS_ITS | Encounter Summary ---
:1955 Author Organization [facility] Address [address] [place] [address]. [place] [address] Phone Care Team Providers Name Role Phone Unavailable Primary Care Provider Unavailable Encounter Details Date Type Department Care Team Description 09/02/2005 Orders Only [facility] Ultrasound [address] [place], [place] [address] Social History Tobacco Use Types Packs/Day Years Used Date Smoking Tobacco: Never Assessed Sex Assigned at Date Recorded Not on file documented as of this encounter Plan of Treatment Not on filedocumented as of this encounter Procedures Procedure Name Priority Date/Time Associated Diagnosis Comme nts ULT KIDNEYS Routine 09/02/2005 3:16 PM Results f or this COMPLETE SAS SQL DEVELOPER procedure are i n the results section. documented in this encounter Results ULT KIDNEY COMPLETE (09/02/2005 3:16 PM SAS SQL DEVELOPER) Anatomical Region Laterality Modality Abdomen Ultrasound Specimen (Source) Anatomical Collection Method Collection Time Re ceived Time Location / / Volume Laterality 09/02/2005 3:16 PM SAS SQL DEVELOPER Impressions 09/05/2005 9:17 AM SAS SQL DEVELOPER : ??NO FOCAL MASS, STONE, OR HYDRONEPHROSIS IDENTIFIED WITHIN EITHER KIDNEY. I have personally reviewed the image(s) and initial interpretation, and I agree with the findings. . . Read Date: Sep 02 2005 ??4:12P BENEDICT AU M.D. - STAFF RADIOLOGIST FABIOLA AVALOS M.D. - RESIDENT RADIOLOGIST RELEASE RESULTS: (Y) ASI END: END RESULT: DATE DICTATED: () DIRECTOR OF CAMPUS RECREATION: ( ) IMPRESSION Narrative 09/05/2005 9:17 AM SAS SQL DEVELOPER FABIOLA AVALOS M.D. - RESIDENT RADIOLOGIST Final Report EXAM: ?? RENAL US: PLATINUM KIDNEYS ?? 04/2006 15:16 HISTORY: ??Neurogenic bladder. [...] RESIDENT RADIOLOGIST Final Report EXAM: RENAL US: PLATINUM KIDNEYS 15:16 HISTORY: Neurogenic bladder. COMPARISON: 10/12/01. [...] END: END RESULT: DATE DICTATED: () DIRECTOR OF CAMPUS RECREATION: ( ) IMPRESSION Omar HUMPHREYT documented in this encounter Visit Diagnoses Not on filedocumented in this encounter
--- OUTSIDE RECORDS SUMMARY | 2022-05-30 15:03 | XMS_ITS | Encounter Summary ---
:1955 Author Organization [facility] Address [address] [place] [address] Phone Care Team Providers Name Role Phone Unavailable Primary Care Provider Unavailable Encounter Details Date Type Department Care Team Description 10/12/2001 Orders Only [facility] [place] [address] [place], [place] [address] Social History Tobacco Use Types Packs/Day Years Used Date Smoking Tobacco: Never Assessed Sex Assigned at Date Recorded Not on file documented as of this encounter Plan of Treatment Not on filedocumented as of this encounter Procedures Procedure Name Priority Date/Time Associated Diagnosis Comme nts XR CHEST 2 VIEWS PA Routine 10/12/2001 12:00 PM R esults for this + LAT* ROTARY SHEAR CUTTER procedure are i n the results section. ULT KIDNEYS Routine 10/12/2001 11:22 AM Results for this COMPLETE ROTARY SHEAR CUTTER procedure are i n the results section. documented in this encounter Results XR CHEST 2 VIEWS PA & LAT (10/12/2001 12:00 PM ROTARY SHEAR CUTTER) Anatomical Region Laterality Modality Chest Digital Radiography Specimen (Source) Anatomical Collection Method Collection Time Re ceived Time Location / / Volume Laterality 10/12/2001 12:00 PM ROTARY SHEAR CUTTER Impressions 10/14/2001 3:54 PM ROTARY SHEAR CUTTER : 1. ??NO PULMONARY FIBROSIS OR AIR-SPACE INFILTRATE SEEN. 2. ??STABLE RIGHT LOWER LOBE PULMONARY N ODULE, LIKELY CALCIFIED. 3. ??INTERVAL MORE PROMINENT DENSITY OVE R THE MEDIAL ASPECT OF THE RIGHT APEX, OF UNCERTAIN CLINICAL SIGNIFICANCE . ??FURTHER EVALUATION WITH LORDOTIC VIEW MAY BE HELPFUL. ASI END: RELEASE RESULTS: (Y) END RESULT: IMPRESSION Narrative 10/14/2001 3:54 PM ROTARY SHEAR CUTTER Final Report EXAM: ?? CHEST 2 VIEWS [...] X-RAY ULT KIDNEY COMPLETE (10/12/2001 11:22 AM ROTARY SHEAR CUTTER) Anatomical Region Laterality Modality Abdomen Ultrasound Specimen (Source) Anatomical Collection Method Collection Time Re ceived Time Location / / Volume Laterality 10/12/2001 11:22 AM ROTARY SHEAR CUTTER Impressions 10/15/2001 4:06 PM ROTARY SHEAR CUTTER : 1. ??NO RENAL STONES IDENTIFIED. 2. ??MILD CORTICAL THINNING BILATERALLY. ??THIS MAY INDICATE MEDICAL RENAL DISEASE. I have personally reviewed the image(s) and initial interpretation, and I agree with the findings. ASI END: RELEASE RESULTS: (Y) END RESULT: IMPRESSION Narrative 10/15/2001 4:06 PM ROTARY SHEAR CUTTER Final Report EXAM: ?? RENAL US: [place] KIDNEYS ?- ??10/12/2001 11:22AM SUSPECTED PATHOLOGY: SYMPTOMS [...] the original. Final Report EXAM: RENAL US: [place] KIDNEYS - 002 11:22AM SUSPECTED PATHOLOGY: SYMPTOMS [...]
--- OUTSIDE RECORDS SUMMARY | 2022-05-30 15:03 | XMS_ITS | Encounter Summary ---
:1955 Author Organization [facility] Address [address] [place] [address] Phone Care Team Providers Name Role Phone Unavailable Primary Care Provider Unavailable Encounter Details Date Type Department Care Team Description 09/02/2005 Orders Only [facility] [address] [place], [place] [address] Social History Tobacco Use Types Packs/Day Years Used Date Smoking Tobacco: Never Assessed Sex Assigned at Date Recorded Not on file documented as of this encounter Plan of Treatment Not on filedocumented as of this encounter Procedures Procedure Name Priority Date/Time Associated Diagnosis Comme nts ULT KIDNEYS Routine 09/02/2005 3:16 PM Results f or this COMPLETE INTERNAL CONTROL ANALYST procedure are i n the results section. XR CHEST 2 VIEWS PA Routine 09/02/2005 3:03 PM Re sults for this + LAT* INTERNAL CONTROL ANALYST procedure are i n the results section. documented in this encounter Results ULT KIDNEY COMPLETE (09/02/2005 3:16 PM INTERNAL CONTROL ANALYST) Anatomical Region Laterality Modality Abdomen Ultrasound Specimen (Source) Anatomical Collection Method Collection Time Re ceived Time Location / / Volume Laterality 09/02/2005 3:16 PM INTERNAL CONTROL ANALYST Impressions 09/05/2005 9:17 AM INTERNAL CONTROL ANALYST : ??NO FOCAL MASS, STONE, OR HYDRONEPHROSIS IDENTIFIED WITHIN EITHER KIDNEY. I have personally reviewed the image(s) and initial interpretation, and I agree with the findings. . . Read Date: Sep 02 2005 ??4:12P BENEDICT AU M.D. - STAFF RADIOLOGIST FABIOLA AVALOS M.D. - RESIDENT RADIOLOGIST RELEASE RESULTS: (Y) ASI END: END RESULT: DATE DICTATED: () IMPORT COORDINATION AND PRODUCTION HEAD: ( ) IMPRESSION Narrative 09/05/2005 9:17 AM INTERNAL CONTROL ANALYST FABIOLA AVALOS M.D. - RESIDENT RADIOLOGIST Final Report EXAM: ?? RENAL US: LAC VIEUX KIDNEYS ?? 04/2006 15:16 HISTORY: ??Neurogenic bladder. [...] RESIDENT RADIOLOGIST Final Report EXAM: RENAL US: LAC VIEUX KIDNEYS 15:16 HISTORY: Neurogenic bladder. COMPARISON: 10/12/01. [...] ASI END: END RESULT: DATE DICTATED: () IMPORT COORDINATION AND PRODUCTION HEAD: ( ) IMPRESSION Omar Savage MD ULT XR CHEST 2 VIEWS PA & LAT (09/02/2005 3:03 PM INTERNAL CONTROL ANALYST) Anatomical Region Laterality Modality Chest Digital Radiography Specimen (Source) Anatomical Collection Method Collection Time Re ceived Time Location / / Volume Laterality 09/02/2005 3:03 PM INTERNAL CONTROL ANALYST Impressions 09/02/2005 3:58 PM INTERNAL CONTROL ANALYST : ??NO ACUTE PULMONARY INFILTRATE. ?? . . Read Date: Sep 02 2005 ??3:34P VIANCA COHEN M.D. - STAFF RADIOLOGIST - RESIDENT RADIOLOGIST RELEASE RESULTS: (Y) ASI END: END RESULT: DATE DICTATED: () IMPORT COORDINATION AND PRODUCTION HEAD: ( ) IMPRESSION Narrative 09/02/2005 3:58 PM INTERNAL CONTROL ANALYST - RESIDENT RADIOLOGIST Final Report EXAM: ?? [...] ASI END: END RESULT: DATE DICTATED: () IMPORT COORDINATION AND PRODUCTION HEAD: ( ) IMPRESSION Omar Savage MD X-RAY documented in this encounter Visit Diagnoses Not on filedocumented in this encounter
--- OUTSIDE RECORDS SUMMARY | 2022-05-30 15:03 | XMS_ITS | Encounter Summary ---
:1955 Author Organization [facility] Address [address] [place] [address] Phone Care Team Providers Name Role Phone Unavailable Primary Care Provider Unavailable Encounter Details Date Type Department Care Team Description 04/03/1997 Orders Only [facility] XRAY [address] [place], [place] [address] Social History Tobacco Use Types [...]
--- OUTSIDE RECORDS SUMMARY | 2022-05-30 15:03 | XMS_ITS | Encounter Summary ---
:1955 Author Organization [facility] Address [address] [place] [address] Phone Care Team Providers Name Role Phone Unavailable Primary Care Provider Unavailable Encounter Details Date Type Department Care Team Description 05/15/2003 EWeb History [facility] [place] Sameera Frances MD [address] [facility] [address] [place], [place] [address] Mail Code [address] [place] [address] (Wo rk) Social History Tobacco Use Types Packs/Day Years Used Date Smoking Tobacco: Never Assessed Sex Assigned at Date Recorded Not on file documented as of this encounter Plan of Treatment Not on filedocumented as of this encounter Visit Diagnoses Not on filedocumented in this encounter
--- OUTSIDE RECORDS SUMMARY | 2022-05-30 15:03 | XMS_ITS | Encounter Summary ---
:[address] [facility] Address [address] [place] [address] Phone Care Team Providers Name Role Phone Unavailable Primary Care Provider Unavailable Reason for Visit Reason Onset Date Comments Medication Refill 10/16/2007 Encounter Details Date Type Department Care Team Description 10/16/2007 Refill [facility] Urology Omar Savage MD Medication Refill [address] [facility], [address] Research Only [place], [place] [address] Social History Tobacco Use Types [...]
== END 2022-05-30 14:27 | disposition home or self-care (01) ==
PROVIDERS: PCP Family Medicine; Visit Provider Nurse Practitioner Family
DX: L89.894 Pressure ulcer of other site, stage 4 (principal); L89.514 Pressure ulcer of right ankle, stage 4; L89.154 Pressure ulcer of sacral region, stage 4; L89.614 Pressure ulcer of right heel, stage 4
CPT/HCPCS: 11042; 11043; 11044; 11045; 11046; 11047; 97605

== ENCOUNTER 2022-06-13 12:50 | Outpatient (CLI) | payer OTHER, MEDICARE, SELFPAY ==
--- OUTSIDE RECORDS SUMMARY | 2022-06-13 12:53 | XMS_ITS | Encounter Summary ---
:1955 Author Organization [facility] Address [address] [place] [address] Phone Care Team Providers Name Role Phone Unavailable Primary Care Provider Unavailable Encounter Details Date Type Department Care Team Description 09/14/2020 Immunization [facility] Jonathan Chu MD [address] [id number] Need for vaccination [address] Nurse, [facility] Vaccine [address] [place] [address] (Primary Dx) [place], [place] [address] Social History Tobacco Use Types [...] with No / Unsure 08/20/2020 3:15 PM [employer] WORK[employer] someone who was confirmed or suspected to have Coronavirus / COVID-19? documented as of this encounter Plan of Treatment Not on filedocumented as of this encounter Visit Diagnoses Diagnosis Need for vaccination - Primary Need for prophylactic vaccination and in oculation against unspecified single disease documented in this encounter
--- OUTSIDE RECORDS SUMMARY | 2022-06-13 12:53 | XMS_ITS | Encounter Summary ---
:1955 Author Organization [facility] Address [address] [place] [address] Phone Care Team Providers Name Role Phone Hallie Clay PT Unavailable Encounter Details Date Type Department Care Team Description 05/05/2021 Hospital Encounter Clinic & Specialty Alex [place] [address] [place] [address] [place] [address] Center Overnight Cashier apy Hallie Clay, PT [address] [address] Social History Tobacco Use Types [...] Provider: Dr. Alex Mata, MD Yamile Conway, CLIENT SERVICES SPECIALIST Current Precautions/Contraindications: At high risk for skin breakdown, s/p flap surgery, current pressure injuries on feet [facility] Technical Trainer: no DIAGNOSIS Patient Active Problem List Diagnosis [...] prefer to work is BLANQUITA Brown of [employer]. The vendor is not present during today's evaluation. 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 He has utilized a manual wheelchair as his primary means of mobility since then. He has a significant pressure injury history, including on his sacral area and feet. He received his current MWC through [employer] on 10/06/20. 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 Lower Extremity Right MMT Left MMT WFL 0/5 0/5 Hip Flexion Hip Extension Hip Abduction Knee Flexion Knee Extension Dorsiflexion Inversion Eversion Plantar Flexion Great toe extension Normative concrete form setter strength values for Berny dynamometer for clinical [...] the wheelchair/mobility device?: Yes Wheelchair Management/Training (CPT 39891): 15 min during session(s) Pressure mapping completed [...] Specific Question: Schedule with: Answer: HALLIE CLAY [[id number]] Order Specific Question: Number of Visits patient [...] conditions documented in this encounter Care Teams Nuclear Equipment Test Engineer Relationship Specialty Start Date End Date Hallie Clay, PT Physical Therapist Physical Therapy 04/05/21 [address] [place] [address] documented as of this encounter
--- OUTSIDE RECORDS SUMMARY | 2022-06-13 12:53 | XMS_ITS | Encounter Summary ---
:1955 Author Organization [facility] Address [address] [place] [address] Phone Care Team Providers Name Role Phone [...] on filedocumented in this encounter Care Teams Fit Model Relationship Specialty Start Date End Date Lila Clay, PT Physical Therapist Physical Therapy 04/05/21 [address] [place] [address] documented as of this encounter
--- OUTSIDE RECORDS SUMMARY | 2022-06-13 12:53 | XMS_ITS | Encounter Summary ---
:1955 Author Organization [facility] Address [address] [facility] [place] [place] [address] Phone Care Team Providers Name Role Phone Lila Clay PT Unavailable Reason for Visit Reason Onset Date Comments Prior Authorization For Medications 09/03/2021 Boto x (onabotulinumtoxinA) Encounter Details Date Type Department Care Team Description 09/03/2021 Pharmacy Prior [facility] P1 Pharmacy Sakshi Mcmanus, Authorization [address] [facility] PharmD P1.630 [address] [place], [place] [address] [address] [place], [place] [phone] Social History Tobacco Use Types Packs/Day Years [...] the patient has active primary coverage through [facility]IC[facility]VANTAGE ([facility]). [facility] does NOT require prior authorization for BOTOX when it is given in the clinic/infusion center and billed on the medical claim (buy and bill). IMPORTANT - READ BELOW However, [facility] reimburses BOTOX only for select designated ICD-10/Diagnosis Codes. Based on review of the patient's chart, please (continue to) use the following COVERED diagnosis code for the visits in which the patient will receive BOTOX: - G82.50 or G82.54 Quadriplegia Update 01/27/2022 - Unable to get response from [employer] Per 10/21/2021 note appears patient was going [...] on filedocumented in this encounter Care Teams Freight Weigher Relationship Specialty Start Date End Date Lila Clay, PT Physical Therapist Physical Therapy 04/05/[address] [place] [address] documented as of this encounter
--- OUTSIDE RECORDS SUMMARY | 2022-06-13 12:53 | XMS_ITS | Encounter Summary ---
:1955 Author Organization [facility] Address [address] [place] [address] Phone Care Team Providers Name Role Phone Lila Clay PT Unavailable Reason for Visit Prior Authorization (Routine) - Closed Specialty Diagnoses / Procedures Referred By Contact Refer red To Contact Physical Therapy / Diagnoses Quadriplegia () At high risk for skin breakdown Impaired mobility Provider, Outside Lila Clay, PHYSICAL MEDICINE AND Procedures PT TREATMENT PLAN OUTSIDE PROVIDER PT REHAB [address] [address] Phone: Fax: Referral ID Status Reason Start Date Expiration Date Visits Requ ested Visits Authorized [id number] Closed 05/05/2021 01/20/2022 12 12 Encounter Details Date Type Department Care Team Description 06/02/2021 Hospital Encounter Clinic & Specialty Provider, Outside OUTSIDE PROVIDER [address] Demolition Crane Operator apy Lila Clay, PT [id number] [place] [address] Social History Tobacco Use Types Packs/Day [...] Hospitalization: None Referring Provider: MD Yamile Alves, ASSOCIATE JAVA DEVELOPER ?? Current Precautions/Contraindications: At high risk for skin breakdown, s/p flap surgery, current pressure injuries on feet [facility] Solar Water Heater Installer: no Patient gave two identifiers for Check [...] additional changes as appropriate. O: [Billable Units/Time] ([id number]) Wheelchair Management: 60 min Transfer MWC/mat table [...] passive IR/ER WNL. Adjustments made to patient's [facility] this date: +Increased posterior seat dump by 1 +lowered footplates B by approximately 1 Pt returned to sitting in [facility] at end of session, able [...] Clay, PT [employer] [place] License: #[id number] Pager: [phone] Office: [phone] TED HISTORY TOUR GUIDE documented in this encounter Plan of Treatment Not on filedocumented as of this encounter Visit Diagnoses Not on filedocumented in this encounter Care Teams Rn Heart Relationship Specialty Start Date End Date Lila Clay, PT Physical Therapist Physical Therapy 04/05/[address] [place] [address] documented as of this encounter
--- OUTSIDE RECORDS SUMMARY | 2022-06-13 12:53 | XMS_ITS | Encounter Summary ---
:1955 Author Organization [facility] Address [address] [place] [address] Phone Care Team Providers Name Role Phone Lila Clay PT Unavailable Reason for Visit Prior Authorization (Routine) - Closed Specialty Diagnoses / Procedures Referred By Contact Refer red To Contact Physical Therapy / Diagnoses Quadriplegia () At high risk for skin breakdown Impaired mobility Provider, Outside Lila Clay, PHYSICAL MEDICINE AND Procedures PT TREATMENT PLAN OUTSIDE PROVIDER PT REHAB [address] [address] Phone: Fax: Referral ID Status Reason Start Date Expiration Date Visits Requ ested Visits Authorized [id number] Closed 05/05/2021 01/20/2022 12 12 Encounter Details Date Type Department Care Team Description 08/11/2021 Hospital Encounter Clinic & Specialty Provider, Outside [place] [address] No Show Center Mailroom Associate apy Lila Clay, PT [address] [place] [address] Social History Tobacco Use Types Packs/Day [...] request, with this therapist. Lila Clay PT [facility] License: #[id number] Pager: [phone] Office: [phone] OR ACCOUNTING ASSOCIATE documented in this encounter Plan of Treatment Not on filedocumented as of this encounter Visit Diagnoses Not on filedocumented in this encounter Care Teams Family Service Caseworker Relationship Specialty Start Date End Date Lila Clay, PT Physical Therapist Physical Therapy 04/05/21 [address] [place] [address] documented as of this encounter
--- OUTSIDE RECORDS SUMMARY | 2022-06-13 12:53 | XMS_ITS | Encounter Summary ---
:[address] [facility] Address [address] [place] [address] Phone Care Team Providers Name Role Phone Lila Clay PT Unavailable Reason for Visit Prior Authorization (Routine) - Auth Not Needed Specialty Diagnoses / Procedures Referred By Contact Refer red To Contact Physical Medicine and Diagnoses Quadriplegia, unspecified Quadriplegia, C5-C7 incomplete Muscle spasticity [M62.838] (Reminder letter sent 09/29/21 cl) Zev Alvarez MD Rehab / NEUROLOGY EMG Procedures EMG - BOTOX [address] [place] [address] [place] [address] Phone: Fax: Referral ID Status Reason Start Date Expiration Date Visits V isits Requested Authorized [id number] Auth Not 1 2 Needed Encounter Details Date Type Department Care Team Description 10/21/2021 Hospital Encounter Clinic & Specialty Zev Alvarez , Non Billable Center EMG [address] [place] [address] [address] [place], [place] [phone] (Wo rk) Social History Tobacco Use Types [...] Name: Khanh Rene : 1955 Medical Record: [id number] History of Present Illness: 66 year old [...] to his right leg on 07/08/2019 at [facility] (Administered as 100 BF, 50 SM, 50 [...] and discussed with Dr. Kim Ash, PGY-5, [facility] Brain Injury Fellow Pager# [phone] Associated attestation - Zev Alvarez MD - [...] in this encounter Care Teams Double End Sewer Relationship Specialty Start Date End Date Lila Clay, PT Physical Therapist Physical Therapy 04/05/21 [address] [place] [address] documented as of this encounter
--- OUTSIDE RECORDS SUMMARY | 2022-06-13 12:53 | XMS_ITS | Encounter Summary ---
:1955 Author Organization [facility] Address [address] [place] [address] Phone Care Team Providers Name Role Phone Lila Clay PT Unavailable Reason for Visit Reason Comments Referral Consult/Test/Treat (Routine) - Closed Specialty Diagnoses / Procedures Referred By Contact Refer red To Contact Physical Medicine and Diagnoses Paraplegia, unspecified paraplegia from previous in [place] 33 yrs James Nava Csc Pm&R Cl Rehab / PHYSICAL MD [place] [address] [place] [address] MEDICINE AND REHAB [address] [place] [phone] Fax: Referral ID Status Reason Start Date Expiration Date Visits V isits Requested Authorized [id number] Closed Created in 07/20/2021 07/20/2022 1 1 PAS Encounter Details Date Type Department Care Team Description 09/02/2021 Office Visit Clinic & Specialty Center Dariel Israel uadriplegia, C5-C7 incomplete () (Primary Dx); Physical Medicine & A, PA-C Muscle spasticity Rehabilitation Clini c [address] [place] [phone] Social History Tobacco Use [...] Comments Blood Pressure 135/74 09/02/2021 8:12 AM OPTICAL GOODS DRILLING MACHINE OPERATOR Pulse 72 09/02/2021 8:12 AM OPTICAL GOODS DRILLING MACHINE OPERATOR Temperature - - Respiratory Rate - - Oxygen Saturation - - Inhaled Oxygen Concentration - - Weight - - Height - - Body Mass Index - - documented in this encounter Progress Notes Dariel Israel PA-C - 09/02/2021 8:00 AM CST [facility] Physical Medicine & Rehabilitation Clinic Khanh Rene [...] is followed by a wound clinic in [place]. He just had a wheelchair evaluation in physical therapy here at [facility]. He stated that around 2 to 3 [...] 5/5 EE 5/5 5/5 WE 4/5 4/5 Process Coach 3/5 3/5 Strength bilateral lower extremities 0/5 [...] service, including pre-visit review of separatelyobtained history, kcyy-al-fyme interaction performing medically appropriate physical exam, patient counseling/education, interpretation of diagnostic results, care coordination and documentation was 46 minutes. Dictation Disclaimer: Notes are completed with voice-recognition dictation software. Errors are generally corrected in real time. Please contact me via [employer] staff message if you note any errors requiring clarification. CAL GOODS DRILLING MACHINE OPERATOR documented in this encounter Plan of Treatment Scheduled Orders Name Type Priority Associated Diagnoses Order S chedule EMG - BOTOX EMG Routine Muscle spasticity Ordered: 0 09/02/2021 documented as of this encounter Procedures Procedure Name Priority Date/Time Associated Comments Diagnosis CARE EVERYWHERE 09/07/2021 11:04 Results for this AUTHORIZATION AM OPTICAL GOODS DRILLING MACHINE OPERATOR procedure are in the results section. CARE EVERYWHERE 09/07/2021 11:04 Results for this AUTHORIZATION AM OPTICAL GOODS DRILLING MACHINE OPERATOR procedure are in the results section. documented in this encounter Results CARE EVERYWHERE AUTHORIZATION (09/07/2021 11:04 AM OPTICAL GOODS DRILLING MACHINE OPERATOR) Narrative This result has an attachment that is no t available. Him Provider SCANNED CONSENTS CARE EVERYWHERE AUTHORIZATION (09/07/2021 11:04 AM OPTICAL GOODS DRILLING MACHINE OPERATOR) Narrative This result has an attachment that is no t available. Him Provider SCANNED CONSENTS documented in this encounter Visit Diagnoses Diagnosis Quadriplegia, C5-C7 incomplete () - Pr imary Quadriplegia, C5-C7, incomplete Muscle spasticity Spasm of muscle documented in this encounter Care Teams Midlevel Provider Relationship Specialty Start Date End Date Lila Clay, PT Physical Therapist Physical Therapy 04/05/[address] [place] [address] documented as of this encounter
--- OUTSIDE RECORDS SUMMARY | 2022-06-13 12:53 | XMS_ITS | Encounter Summary ---
:1955 Author Organization [facility] Address [address] [place] [address] Phone Care Team Providers Name Role Phone Hallie Clay PT Unavailable Reason for Referral Prior Authorization (Routine) - Closed Specialty Diagnoses / Procedures Referred By Contact Refer red To Contact Physical Therapy / Diagnoses Quadriplegia () At high risk for skin breakdown Impaired mobility Provider, Outside Hallie Clay, PHYSICAL MEDICINE AND Procedures PT TREATMENT PLAN OUTSIDE PROVIDER PT REHAB [place], [place] [id number] [place] [address] Phone: Fax: Referral ID Status Reason Start Date Expiration Date Visits Requ ested Visits Authorized [id number] Closed 05/05/2021 01/20/2022 12 12 TO PULPER OPERATOR Reason for Visit Prior Authorization (Routine) - Closed Specialty Diagnoses / Procedures Referred By Contact Refer red To Contact Physical Therapy / Diagnoses Quadriplegia () At high risk for skin breakdown Impaired mobility Provider, Outside Hallie Clay, PHYSICAL MEDICINE AND Procedures PT TREATMENT PLAN OUTSIDE PROVIDER [facility] [place], [place] [id number] [place] [address] Phone: Fax: Referral ID Status Reason Start Date Expiration Date Visits Requ ested Visits Authorized [id number] Closed 05/05/2021 01/20/2022 12 12 Encounter Details Date Type Department Care Team Description 07/14/2021 Hospital Encounter Clinic & Specialty Provider, [place] [address] Center [employer] Research Engineer apHallie Hopkins, PT [address] [address] Social History Tobacco Use Types [...] Signature: Date: 07/14/2021 Date: Please return to: [facility] Physical Therapy [address] [address] RECERTIFICATION SUMMARY New Recertification period: 07/14/21 to [...] Recent Hospitalization:??None?? Referring Provider:?? MD Yamile Alves, PAVING MACHINE OPERATOR ?? Current Precautions/Contraindications:?At high risk for skin breakdown, s/p flap surgery, currentpressure injuries on feet [facility] Door Closer:?no ?? Patient gave two identifiers for Check 2 for Safety Total Treatment Time: 55 Min ?? Pain: No significant complaints during session ?? S: Pt presents to his PT session in his [facility], independently. Also present: Matthew Ricketts/[employer]. Received his new off loading boots from Concreting Supervisor Commercial Assistant yesterday, started wearing them as of yesterday and is having difficulties with them (during transfers especially) due to the weight - also noted that they have elevated his knees which causes concern for increased pressure on IT's. ?? O: [Billable Units/Time] ?? (63112) Wheelchair Management: 55 min Pressure mapping completed [...] up with B UE's for having pressure paint line supervisor placed over, completed with CGA) +Sitting on [...] Recommend removing foam sole, and placing nonskid surface/component prep operator bottom instead (lowest height possible) 4) Inside [...] - thank you. Hallie Clay, PT ATP [phone] [email or web address] Printed above information for patient to bring with to his intelligence operations specialist as well as to his Ortho MD [...] stabilizer? Hallie Clay, PT ATP [place] License: #[id number] Pager: [phone] Office: [phone] ? Recertification Assessment of need for continued skilled physical therapy interventions: Patient continues to make steady progress toward short term and chcf goals which have been updated to reflect [...] Specific Question: Schedule with: Answer: HALLIE CLAY [[id number]] Order Specific Question: Number of Visits patient [...] Specific Question: Schedule with: Answer: HALLIE CLAY [[id number]] Order Specific Question: Number of Visits patient should be scheduled for? Answer: 1 Order Specific Question: Modalities and Procedures Answer: Procedures Order Specific Question: Procedure Answer: Functional Activities Order Specific Question: Procedure Answer: Neuromuscular Re-education Order Specific Question: Procedure Answer: Self Care/Home Management/ADL Order Specific Question: Procedure Answer: Wheelchair Management and Training Hallie Clay PT ATP Date [place] License: #[id number] Pager: [phone] Office: [phone] TO PULPER OPERATOR documented in this encounter Plan of Treatment Not on filedocumented as of this encounter Visit Diagnoses Diagnosis Quadriplegia () Quadriplegia, unspecified At high risk for skin breakdown Other specified conditions influencing h ealth status Impaired mobility Other ill-defined conditions documented in this encounter Care Teams Information Technology Specialist Relationship Specialty Start Date End Date Hallie Clay PT Physical Therapist Physical Therapy 04/05/[address] [place] [address] documented as of this encounter
--- OUTSIDE RECORDS SUMMARY | 2022-06-13 12:53 | XMS_ITS | Encounter Summary ---
:[address] [facility] Address [address] [place] [address] Phone Care Team Providers Name Role Phone Lila Clay PT Unavailable Reason for Visit Prior Authorization (Routine) - Closed Specialty Diagnoses / Procedures Referred By Contact Refer red To Contact Physical Therapy / Diagnoses Quadriplegia () At high risk for skin breakdown Impaired mobility Provider, Outside Lila Clay, PHYSICAL MEDICINE AND Procedures PT TREATMENT PLAN OUTSIDE PROVIDER PT REHAB [address] [address] Phone: Fax: Referral ID Status Reason Start Date Expiration Date Visits Requ ested Visits Authorized [id number] Closed 05/05/2021 01/20/2022 12 12 Encounter Details Date Type Department Care Team Description 06/09/2021 Hospital Encounter Clinic & Specialty Provider, Outside OUTSIDE PROVIDER [address] Load Dispatcher apy Lila Clay, PT [address] [place] [address] Social History Tobacco Use Types Packs/Day [...] Hospitalization: None Referring Provider: MD Yamile Alves, PET STORE MERCHANDISER ?? Current Precautions/Contraindications: At high risk for skin breakdown, s/p flap surgery, current pressure injuries on feet [facility] Grinder Operator Surface Tool: no Patient gave two identifiers for Check 2 for Safety Total Treatment Time: 70 Min Pain: No significant complaints during session S: Pt presents to his PT session in his [facility], independently. Also present: Matthew Ricketts/[employer]. Last 30 min of the session, patient's QRC (Raquel Gamino, RN, PHN, MA P: [phone], F: [phone]) No significant changes; still attends wound clinic for B foot injuries weekly - missed yesterday so will be seen later this week. Pt agreed that he would like to try to adjust 1-2 items at a time; assess tolerance, and then move forward with additional changes as appropriate. Noticed that additional 'dump' is 'different' but tolerable. O: [Billable Units/Time] (35129) Wheelchair Management: 70 min Pt remained in [...] by 2? *Will request a demo from [facility], as PT looked and did not [...] require a new back frame to the [facility], but would provide additional depth to the [...] to be able to transfer in/out of [facility] independently. At end of session, all agreed [...] date include: Increased posterior seat dump on [facility] this date and pt tolerated well - [...] be obtained before then? Lila Clay PT [facility] License: #[id number] Pager: [phone] Office: [phone] D DESIGNER documented in this encounter Plan of Treatment Not on filedocumented as of this encounter Visit Diagnoses Not on filedocumented in this encounter Care Teams Flue Gas Analyst Relationship Specialty Start Date End Date Lila Clay, PT Physical Therapist Physical Therapy 04/05/[address] [place] [address] documented as of this encounter
--- OUTSIDE RECORDS SUMMARY | 2022-06-13 12:53 | XMS_ITS | Clinical Summary ---
:1955 Author Organization [facility] Address [address] [place] [address] Phone Care Team Providers Name Role Phone Lila Clay PT Unavailable Source Comments NeurAxon is fully rolled out on [employer]. Last update 12/26/08.[facility] Allergies Active Allergy Reactions Severity Noted Date [...] Comments Blood Pressure 135/74 09/02/2021 8:12 AM PRODUCT SUPPORT TECHNICIAN Pulse 72 09/02/2021 8:12 AM PRODUCT SUPPORT TECHNICIAN Temperature 36.2 ??C (97.1 ??F) 09/15/2016 8:09 AM PRODUCT SUPPORT TECHNICIAN Respiratory Rate 14 04/20/2010 1:39 PM CDT [...] Phone Address Typ e / Group Dates [facility] [id number] 1990-Pre [phone] [address] Work Comp [employer] sent [address] [employer] [place] [address] [facility] COMPLETE [id number] 2020-Pres [address] [facility] (MEDICARE ent [id number] Managed Care ADVANTAGE) [place] [address] [id number] Workers Comp Employer 1955 % Cb ert (Home) [place] [id number] [address]LE SANTOS [id number] Care Teams Electronics Engineering Professor Relationship Specialty Start Date End Date Lila Clay, PT Physical Therapist Physical Therapy 04/05/21 [address] [place] [address]
--- OUTSIDE RECORDS SUMMARY | 2022-06-13 12:53 | XMS_ITS | Encounter Summary ---
:1955 Author Organization [facility] Address [address] [place] [address] Phone Care Team Providers Name Role Phone Lila Clay PT Unavailable Reason for Visit Prior Authorization (Routine) - Closed Specialty Diagnoses / Procedures Referred By Contact Refer red To Contact Physical Therapy / Diagnoses Quadriplegia () At high risk for skin breakdown Impaired mobility Provider, Outside Lila Clay, PHYSICAL MEDICINE AND Procedures PT TREATMENT PLAN OUTSIDE PROVIDER PT REHAB [place] [id number] [place] [address] Phone: Fax: Referral ID Status Reason Start Date Expiration Date Visits Requ ested Visits Authorized [id number] Closed 05/05/2021 01/20/2022 12 12 Encounter Details Date Type Department Care Team Description 09/01/2021 Hospital Encounter Clinic & Specialty Lila Clay, No [facility] Early Education Teacher apy PT [address] [place] [address]40 4 [place], [place] [phone] Social History Tobacco Use Types Packs/Day Years [...] items have been addressed. Lila Clay PT [facility] License: #[id number] Pager: [phone] Office: [phone] TRAY OPERATOR documented in this encounter Plan of Treatment Not on filedocumented as of this encounter Visit Diagnoses Not on filedocumented in this encounter Care Teams Gis Programmer Relationship Specialty Start Date End Date Lila Clay, PT Physical Therapist Physical Therapy 04/05/21 [address] [place] [address] documented as of this encounter
--- OUTSIDE RECORDS SUMMARY | 2022-06-13 12:53 | XMS_ITS | Encounter Summary ---
:1955 Author Organization [facility] Address [address] [place] [address] Phone Care Team Providers Name Role Phone [...] with No / Unsure 08/20/2020 3:15 PM FRUIT AND VEGETABLE FACTORY WORKER someone who was confirmed or suspected to have Coronavirus / COVID-19? documented as of this encounter Plan of Treatment Not on filedocumented as of this encounter Visit Diagnoses Not on filedocumented in this encounter
--- OUTSIDE RECORDS SUMMARY | 2022-06-13 12:54 | XMS_ITS | Encounter Summary ---
:1955 Author Organization [facility] Address 1 [place] [address] Phone Care Team Providers Name Role Phone Provider, Outside Primary Care Provider Unavailable Reason for Visit Reason Onset Date Comments Refill Request 12/23/2016 Encounter Details Date Type Department Care Team Description 12/23/2016 Refill [facility] Urology Clinic Divya Caraballo RN Refill Request [address] [facility], [address] 701 [place], [place] [address] 4 [place] [address] Social History Tobacco Use Types Packs/Day Years [...] on filedocumented in this encounter Care Teams Nicker And Breaker Relationship Specialty Start Date End Date Provider, Outside PCP - General 03/13/09 10/22/18 [place] [address] documented as of this encounter
--- OUTSIDE RECORDS SUMMARY | 2022-06-13 12:54 | XMS_ITS | Encounter Summary ---
:1955 Author Organization [facility] Address [address] [place] [address] Phone Care Team Providers Name Role Phone Provider, Outside Primary Care Provider Unavailable Reason for Visit Reason Onset Date Comments Medication Problem 01/10/2018 propantheline Encounter Details Date Type Department Care Team Description 01/10/2018 Nurse Triage Clinic & Specialty [facility] (propantheline) [address] [place] [address] [place] [address]40 4 [place], [place] [phone] [address] Social History Tobacco Use Types Packs/Day Years [...] to me for years A-upon review of [facility] is was found that Dr Garcia has [...] or severe? n/a Protocols used: MEDICATION QUESTION [id number] documented in this encounter Plan of Treatment Not on filedocumented as of this encounter Visit Diagnoses Not on filedocumented in this encounter Care Teams Chemical Handler Relationship Specialty Start Date End Date Provider, Outside PCP - General 03/13/09 10/22/18 [place] [address] documented as of this encounter
--- OUTSIDE RECORDS SUMMARY | 2022-06-13 12:54 | XMS_ITS | Encounter Summary ---
:1955 Author Organization [facility] Address [address] [place], [place] [address]. [place] [address] Phone Care Team Providers Name Role Phone Provider, Outside Primary Care Provider Unavailable Reason for Visit Reason Comments Follow-up Encounter Details Date Type Department Care Team Description 06/06/2013 Office Visit [facility] Urology Clinic Omar Savage, Neurog enic bladder Yordy FALCON (Primary Dx) [address] [place], [place] [address] Social History Tobacco Use Types [...] Comments Blood Pressure 88/58 06/06/2013 11:33 AM SKI PRODUCTION SUPERVISOR Pulse 79 06/06/2013 11:33 AM SKI PRODUCTION SUPERVISOR Temperature 36.8 ??C (98.2 ??F) 06/06/2013 11:33 AM SKI PRODUCTION SUPERVISOR Respiratory Rate - - Oxygen Saturation - - Inhaled Oxygen Concentration - - Weight - - Height - - Body Mass Index - - documented in this encounter Patient Instructions Patient InstructionsOmar Savage MD - 06/06/2013 11:42 AM CST Patient may have renal ultrasound/bladder in local [facility] with result forwarded to us PRODUCTION SUPERVISOR documented in this encounter Progress Notes Omar Savage MD - 06/08/2013 8:17 AM CST [facility] [address] [place] [address] (fax) [facility]#: [id number] PATIENT: MICHEAL FLETCHER : 1955 DATE: 06/06/2013 [...] MD Staff Physician Surgery Service Received in Necktie Maker: 06/08/2013 05:34 M: 06/08/2013 08:17 filiberto STEWART/filiberto Voice ID: [id number] Document ID: [id number] PRODUCTION SUPERVISOR Omar Savage MD - 06/08/2013 5:32 AM CST This office note has been dictated. PRODUCTION SUPERVISOR documented in this encounter Plan of Treatment Not on filedocumented as of this encounter Visit Diagnoses Diagnosis Neurogenic bladder - Primary Neurogenic bladder, NOS documented in this encounter Care Teams Paper Grader Relationship Specialty Start Date End Date Provider, Outside PCP - General 03/13/09 10/22/18 [place] [address] documented as of this encounter
--- OUTSIDE RECORDS SUMMARY | 2022-06-13 12:54 | XMS_ITS | Encounter Summary ---
:1955 Author Organization [facility] Address [address] [place] [address] Phone Care Team Providers Name Role Phone Provider, Outside Primary Care Provider Unavailable Encounter Details Date Type Department Care Team Description 01/02/2018 Nurse Triage Clinic & Specialty Center Farida Dueñas, spray painting machine operator Clinic [address] [address] [place], [place] [address] Social History Tobacco Use Types [...] on filedocumented in this encounter Care Teams Rolling Up Machine Operator Relationship Specialty Start Date End Date Provider, Outside PCP - General 03/13/09 10/22/18 [place] [address] documented as of this encounter
--- OUTSIDE RECORDS SUMMARY | 2022-06-13 12:54 | XMS_ITS | Encounter Summary ---
:[address] [facility] Address [address] [place] [address] Phone Care Team Providers Name Role Phone Provider, Outside Primary Care Provider Unavailable Reason for Visit Reason Onset Date Comments Refill Request 10/06/2016 re: Macrodantin Encounter Details Date Type Department Care Team Description 10/06/2016 Telephone [facility] Urology Clinic Divya Avendano Refi ll Request (re: Yordy ASH Macrodantin) [address] 701 [place], [place] [address]40 4 [place], [place] [phone] [address] Social History Tobacco Use Types Packs/Day Years [...] on filedocumented in this encounter Care Teams Geriatric Psychiatrist Relationship Specialty Start Date End Date Provider, Outside PCP - General 03/13/09 10/22/18 [place] [address] documented as of this encounter
--- OUTSIDE RECORDS SUMMARY | 2022-06-13 12:54 | XMS_ITS | Encounter Summary ---
:[address] [facility] Address [address] [place] [address] Phone Care Team Providers Name Role Phone Provider, Outside Primary Care Provider Unavailable Encounter Details Date Type Department Care Team Description 10/21/2014 Telephone [facility] Urology Clinic Omar Ryees MD [address] , [address] Research [place], [place] 55[address] Social History Tobacco Use [...] on filedocumented in this encounter Care Teams Sheet Metal Erector Relationship Specialty Start Date End Date Provider, Outside PCP - General 03/13/09 10/22/18 [place] [address] documented as of this encounter
--- OUTSIDE RECORDS SUMMARY | 2022-06-13 12:54 | XMS_ITS | Encounter Summary ---
:1955 Author Organization [facility] Address [address] [place] [address] Phone Care Team Providers Name Role Phone Provider, Outside Primary Care Provider Unavailable Reason for Visit Reason Onset Date Comments Other 02/05/2016 Encounter Details Date Type Department Care Team Description 02/05/2016 Telephone [facility] Urology Clinic Selena Garcia MD plan of care [facility] [address] [place] [address] [address] [facility] [place] [address] [place], [place] [address] [phone] Social History Tobacco Use Types Packs/Day Years [...] filedocumented in this encounter Care Teams Commercial Estimator Relationship Specialty Start Date End Date Provider, Outside PCP - General 03/13/09 10/22/18 [place] [address] documented as of this encounter
--- OUTSIDE RECORDS SUMMARY | 2022-06-13 12:54 | XMS_ITS | Encounter Summary ---
:1955 Author Organization [facility] Address [address] [place] [address] Phone Care Team Providers Name Role Phone Provider, Outside Primary Care Provider Unavailable Reason for Visit Reason Comments Bladder Problem Encounter Details Date Type Department Care Team Description 01/26/2015 Office Visit [facility] Urology Clinic Monty Garcia Neur ogenic bladder Yordy FALCON (Primary Dx) [address] [facility] [address] [place], [place] [phone] Social History Tobacco Use Types Packs/Day Years [...] - 01/26/2015 4:13 PM CDT UROLOGY CLINIC [facility]: NEW PATIENT/CONSULT VISIT Khanh Rene : 1955 [...] F/U in 1 year, or sooner PRN. oMnty Garcia MD, 01/26/2015 4:13 PM documented in this encounter Plan of Treatment Not on filedocumented as of this encounter Visit Diagnoses Diagnosis Neurogenic bladder - Primary Neurogenic bladder, NOS documented in this encounter Care Teams Api Developer Relationship Specialty Start Date End Date Provider, Outside PCP - General 03/13/09 10/22/18 [place] [address] documented as of this encounter
--- OUTSIDE RECORDS SUMMARY | 2022-06-13 12:54 | XMS_ITS | Encounter Summary ---
:1955 Author Organization [facility] Address [address] [place] [address] Phone Care Team Providers Name Role Phone Provider, Outside Primary Care Provider Unavailable Reason for Visit Reason Onset Date Comments Refill Request 10/22/2014 Encounter Details Date Type Department Care Team Description 10/22/2014 Refill [facility] Tree Vaughan, Refill Request [address] [facility] [place], [place] [address] [address] [place] [address] [place], [place] [phone] (Wo rk) Social History Tobacco Use Types [...] NOS documented in this encounter Care Teams Housekeeping Aide Relationship Specialty Start Date End Date Provider, Outside PCP - General 03/13/09 10/22/18 [place] [address] documented as of this encounter
--- OUTSIDE RECORDS SUMMARY | 2022-06-13 12:54 | XMS_ITS | Encounter Summary ---
:1955 Author Organization [facility] Address [address] [place] [address] Phone Care Team Providers Name Role Phone Provider, Outside Primary Care Provider Unavailable Reason for Visit Reason Onset Date Comments Refill Request 09/05/2016 Encounter Details Date Type Department Care Team Description 09/05/2016 Refill [facility] Urology Clinic Divya Caraballo RN Refill Request [address] [facility] 701 [place], [place] [address] 4 [place] [address] Social History Tobacco Use Types Packs/Day Years [...] documented in this encounter Care Teams Sales Service Coordinator Relationship Specialty Start Date End Date Provider, Outside PCP - General 03/13/09 10/22/18 [place] [address] documented as of this encounter
--- OUTSIDE RECORDS SUMMARY | 2022-06-13 12:54 | XMS_ITS | Encounter Summary ---
:1955 Author Organization [facility] Address [address] [place] [address] Phone Care Team Providers Name Role Phone Unavailable Primary Care Provider Unavailable Reason for Visit Reason Onset Date Comments Refill Request 04/03/2020 Encounter Details Date Type Department Care Team Description 04/03/2020 Refill Clinic & Specialty Center Monty Garcia MD Refill Request Urology Clinic [address] [place] [address] [place] [address] [phone] Social History Tobacco Use Types Packs/Day Years [...]
--- OUTSIDE RECORDS SUMMARY | 2022-06-13 12:54 | XMS_ITS | Encounter Summary ---
:1955 Author Organization [facility] Address [address] [place] [address] Phone Care Team Providers Name Role Phone Provider, Outside Primary Care Provider Unavailable Reason for Visit Reason Onset Date Comments Other 2018 Encounter Details Date Type Department Care Team Description 2018 Telephone Clinic & Specialty Monty Garcia MD Appointment Center Urology Clini c [address] [facility] P[address] Cancellation [address] [phone] (Wo rk) Social History Tobacco Use Types [...] on filedocumented in this encounter Care Teams Physical Education Department Chair Relationship Specialty Start Date End Date Provider, Outside PCP - General 8/21/09 4/1/19 [place] [address] documented as of this encounter
--- OUTSIDE RECORDS SUMMARY | 2022-06-13 12:54 | XMS_ITS | Encounter Summary ---
:[address] [facility] Address [address] [place] [address] Phone Care Team Providers Name Role Phone Provider, Outside Primary Care Provider Unavailable Reason for Visit Reason Onset Date Comments Refill Request 01/12/2018 Encounter Details Date Type Department Care Team Description 01/12/2018 Refill [facility] Monty Garcia MD Refill Request Urology Clinic [address] [place] [address] [address] [place], [place] [address] [phone] Social History Tobacco Use Types Packs/Day Years [...] on filedocumented in this encounter Care Teams Community Theater Actor Relationship Specialty Start Date End Date Provider, Outside PCP - General 03/13/09 10/22/18 [place] [address] documented as of this encounter
--- OUTSIDE RECORDS SUMMARY | 2022-06-13 12:54 | XMS_ITS | Encounter Summary ---
:1955 Author Organization [facility] Address [address] [place] [address] Phone Care Team Providers Name Role Phone Provider, Outside Primary Care Provider Unavailable Encounter Details Date Type Department Care Team Description 09/07/2012 Letters(Tab) [facility] Omar Reyes MD [address] [place] [address], [address] Research Only [place], [place] [address] [...] Savage MD - 09/07/2012 7:45 AM CST [facility] [address] [place], [place] [address] September 07, 2012 TO: Micheal Fletcher [address] [address] [address] RE:MICHEAL FLETCHER MR#:[id number] :1955 Dear Mr. Fletcher: From your recent Urology Clinic visit, your urine culture grew only mixed gram-positive organisms, which are not considered an infection. Please feel free to contact me for questions. Best wishes. Looking forward to seeing you at your next scheduled visit. Sincerely, Omar Savage MD Staff Physician Surgery Service Received in Slide Fastener Chain Assembler: 09/07/2012 07:32 M: 09/07/2012 07:45 cn CS/cn Voice ID: [id number] Document ID: [id number] cc:MICHEAL FLETCHER [id number] [place] [address] MAKER documented in this encounter Plan of Treatment Not on filedocumented as of this encounter Visit Diagnoses Not on filedocumented in this encounter Care Teams Clearance Diver Relationship Specialty Start Date End Date Provider, Outside PCP - General 03/13/09 10/22/18 [place] [address] documented as of this encounter
--- OUTSIDE RECORDS SUMMARY | 2022-06-13 12:54 | XMS_ITS | Encounter Summary ---
:1955 Author Organization [facility] Address [address] [place] [address] Phone Care Team Providers Name Role Phone Provider, Outside Primary Care Provider Unavailable Reason for Visit Reason Onset Date Comments Refill Request 12/27/2017 propantheline Medication Refill 01/08/2018 propantheline Encounter Details Date Type Department Care Team Description 12/27/2017 Refill Clinic & Specialty Monty Garcia MD Refill Request Center Urology Clini c 701 [facility] P5 (propantheline); [address] Medication Refill [place], [place] [phone] (propantheline) [phone] (Wo rk) Social History Tobacco Use Types [...] chart- no MITCHELL on file. Wale Russell commercial real estate underwriter does have message to pass along, but no MITCHELL in the chart and cannot share info due to HIPPA. Charlene Rusesll said she understood. She requested we call [facility] and let him know the response. Staff Development Educator called [facility] and no answer. Left message [...] Center 02/01/2018 2:00 PM Monty Garcia MD [facility] UROLOGY [facility] Special documented in this encounter Plan of Treatment Not on filedocumented as of this encounter Visit Diagnoses Not on filedocumented in this encounter Care Teams Family Consumer Science Fcs Teacher Relationship Specialty Start Date End Date Provider, Outside PCP - General 03/13/09 10/22/18 [place] [address] documented as of this encounter
--- OUTSIDE RECORDS SUMMARY | 2022-06-13 12:54 | XMS_ITS | Encounter Summary ---
:1955 Author Organization [facility] Address [address] [place] [address] Phone Care Team Providers Name Role Phone Unavailable Primary Care Provider Unavailable Reason for Visit Reason Comments Other Encounter Details Date Type Department Care Team Description 03/27/2020 Refill Clinic [facility] Specialty Center Monty Garcia MD Other Urology Clinic [address] [id number] [place] [address] [phone] Social History Tobacco Use Types Packs/Day Years [...]
--- OUTSIDE RECORDS SUMMARY | 2022-06-13 12:54 | XMS_ITS | Encounter Summary ---
:1955 Author Organization [facility] Address [address] [place] [address] Phone Care Team Providers Name Role Phone Provider, Outside Primary Care Provider Unavailable Reason for Visit Reason Onset Date Comments Refill Request 09/05/2013 macrodantin Encounter Details Date Type Department Care Team Description 09/05/2013 Refill [facility] U[facility] Omar Savage MD Refill Request [facility] Only (macrodantin) [address], [address] [place], [place] [address] Social History Tobacco Use Types [...] Savage, med send to to co sign. RICT COURT REPORTER documented in this encounter Plan of Treatment Not on filedocumented as of this encounter Visit Diagnoses Diagnosis Neurogenic bladder - Primary Neurogenic bladder, NOS documented in this encounter Care Teams Sfdc Architect Relationship Specialty Start Date End Date Provider, Outside PCP - General 03/13/09 10/22/18 [place] [address] documented as of this encounter
--- OUTSIDE RECORDS SUMMARY | 2022-06-13 12:54 | XMS_ITS | Encounter Summary ---
:1955 Author Organization [facility] Address [address] [facility] [place] [address] Phone Care Team Providers Name Role Phone Provider, Outside Primary Care Provider Unavailable Reason for Visit Reason Comments Follow-up Encounter Details Date Type Department Care Team Description 02/14/2011 Office Visit [facility] Phys Med/Rehab Sameera Frances D ecubitus ulcer Clinic (Primary Dx) [address] 701 [facility] P5.200 Mail Code P5 [place], [place] [address] [place], [place] [phone] (Wo rk) Social History Tobacco Use Types [...] site documented in this encounter Care Teams Patient Service Specialist Relationship Specialty Start Date End Date Provider, Outside PCP - General 03/13/09 10/22/18 [place] [address] documented as of this encounter
--- OUTSIDE RECORDS SUMMARY | 2022-06-13 12:54 | XMS_ITS | Encounter Summary ---
:1955 Author Organization [facility] Address [address] [place] [address] Phone Care Team Providers Name Role Phone Provider, Outside Primary Care Provider Unavailable Reason for Visit Reason Onset Date Comments Refill Request 12/17/2013 Propantheline Encounter Details Date Type Department Care Team Description 12/17/2013 Refill [facility] Urology Clinic Omar Savage MD Refill Request [facility] (Propantheline) [address] [facility], [address] [place], [place] [address] Social History Tobacco Use Types [...] on filedocumented in this encounter Care Teams Night Cleaner Relationship Specialty Start Date End Date Provider, Outside PCP - General 03/13/09 10/22/18 [place] [address] documented as of this encounter
--- OUTSIDE RECORDS SUMMARY | 2022-06-13 12:54 | XMS_ITS | Encounter Summary ---
:1955 Author Organization [facility] Address [address] [place] [address] Phone Care Team Providers Name Role Phone Provider, Outside Primary Care Provider Unavailable Reason for Referral Consult/Test/Treat (Routine) - Closed Specialty Diagnoses / Procedures Referred By Contact Refer red To Contact Physical Therapy Diagnoses Decubitus ulcer Sameera Frances MD [address] Mail Code P5 [place], [place] [address] Referral ID Status Reason Start Date Expiration Date Visits Requ ested Visits Authorized [id number] Closed 01/17/2011 01/18/2012 1 1 Reason for Visit Reason Comments Neurologic Problem Encounter Details Date Type Department Care Team Description 01/17/2011 Office Visit [facility] Phys Med/Rehab Sameera Frances D ecubitus ulcer Clinic (Primary Dx) [address] P5.200 Mail Code P5 [place], [place] [address] [place], [place] [phone] (Wo rk) Social History Tobacco Use Types [...] site documented in this encounter Care Teams Systems Support Specialist Relationship Specialty Start Date End Date Provider, Outside PCP - General 03/13/09 10/22/18 [place] [address] documented as of this encounter
--- OUTSIDE RECORDS SUMMARY | 2022-06-13 12:54 | XMS_ITS | Encounter Summary ---
:1955 Author Organization [facility] Address [address] [place] [address] Phone Care Team Providers Name Role Phone Unavailable Primary Care Provider Unavailable Encounter Details Date Type Department Care Team Description 08/20/2020 Immunization [facility] Viral Clinic Jonathan Chu MD [address] [address] COVID-19; [address] Nurse, [facility] Vaccine 701 [place] [address] Need for vaccination [place], [place] [address] Social History Tobacco Use [...] with No / Unsure 08/20/2020 3:15 PM FOIL OPERATOR someone who was confirmed or suspected to have Coronavirus / COVID-19? documented as of this encounter Plan of Treatment Not on filedocumented as of this encounter Visit Diagnoses Diagnosis COVID-19 Need for vaccination Need for prophylactic vaccination and in oculation against unspecified single disease documented in this encounter
--- OUTSIDE RECORDS SUMMARY | 2022-06-13 12:54 | XMS_ITS | Encounter Summary ---
:1955 Author Organization [facility] Address [address] [place] [address] Phone Care Team Providers Name Role Phone Provider, Outside Primary Care Provider Unavailable Reason for Visit Reason Comments Other Encounter Details Date Type Department Care Team Description 01/17/2012 Telephone [facility] Omar Reyes MD [address] [facility], [address] Research Only [place], [place] [address] Social History Tobacco Use Types [...] Outside Provider Comment: Expects Return Call at: [phone] documented in this encounter Plan of Treatment Not on filedocumented as of this encounter Visit Diagnoses Not on filedocumented in this encounter Care Teams Runner Worker Relationship Specialty Start Date End Date Provider, Outside PCP - General 03/13/09 10/22/18 [place] [address] documented as of this encounter
--- OUTSIDE RECORDS SUMMARY | 2022-06-13 12:54 | XMS_ITS | Encounter Summary ---
:1955 Author Organization [facility] Address [address] [place] [address] Phone Care Team Providers Name Role Phone Unavailable Primary Care Provider Unavailable Reason for Visit Reason Onset Date Comments Refill Request 03/22/2019 propanthelin Encounter Details Date Type Department Care Team Description 03/22/2019 Refill Clinic & Specialty Monty Garcia MD Refill Request Center Urology Clini c 701 [facility] P5 (propanthelin) [address] [phone] (Wo rk) Social History Tobacco Use Types [...]
--- OUTSIDE RECORDS SUMMARY | 2022-06-13 12:54 | XMS_ITS | Encounter Summary ---
:1955 Author Organization [facility] Address [address] [place] [address] Phone Care Team Providers Name Role Phone Provider, Outside Primary Care Provider Unavailable Reason for Visit Reason Comments Other Encounter Details Date Type Department Care Team Description 05/22/2016 Refill [facility] Monty Morales MD Other [address] [facility], [address] [address] 4 [place] [address] [phone] (Wo rk) Social History Tobacco Use Types [...] NOS documented in this encounter Care Teams Tractor Operator Relationship Specialty Start Date End Date Provider, Outside PCP - General 03/13/09 10/22/18 [place] [address] documented as of this encounter
--- OUTSIDE RECORDS SUMMARY | 2022-06-13 12:54 | XMS_ITS | Encounter Summary ---
:1955 Author Organization [facility] Address [address] [place] [address] Phone Care Team Providers Name Role Phone Unavailable Primary Care Provider Unavailable Encounter Details Date Type Department Care Team Description 08/18/2020 Orders Only [facility] Viral Cl Jonathan Sierra MD COVID-19 [address] [facility] [address] [facility] G5 [place], [place] [address] [place], [place] [phone] (Wo rk) Social History Tobacco Use Types [...] with No / Unsure 08/20/2020 3:15 PM GAMING PIT BOSS someone who was confirmed or suspected to have Coronavirus / COVID-19? documented as of this encounter Plan of Treatment Not on filedocumented as of this encounter Visit Diagnoses Diagnosis COVID-19 documented in this encounter
--- OUTSIDE RECORDS SUMMARY | 2022-06-13 12:54 | XMS_ITS | Encounter Summary ---
:1955 Author Organization [facility] Address [address] [place] [address] Phone Care Team Providers Name Role Phone Provider, Outside Primary Care Provider Unavailable Reason for Visit Reason Onset Date Comments Medication Refill 11/11/2016 propantheline (PRO-B ANTHINE) Encounter Details Date Type Department Care Team Description 11/11/2016 Refill [facility] Urology Clinic Selena Garcia MD Medication Refill [place] 701 [facility] P5 (propantheline [address], [address] [place], [place] (PRO-BANTHINE) ) [address] [place], [place] [phone] (Wo rk) Social History Tobacco Use Types [...] mg oral tablet Pharmacy Name and Location: [facility] [address] [place] [phone] - [phone] - [address] [place] [address] Phone number for return call: .[phone] Did caller contact the pharmacy? yes: pharmacy [...] filedocumented in this encounter Care Teams Electrical Logging Operator Relationship Specialty Start Date End Date Provider, Outside PCP - General 03/13/09 10/22/18 [place] [address] documented as of this encounter
--- OUTSIDE RECORDS SUMMARY | 2022-06-13 12:54 | XMS_ITS | Encounter Summary ---
:1955 Author Organization [facility] Address [address] [place] [address] Phone Care Team Providers Name Role Phone Provider, Outside Primary Care Provider Unavailable Encounter Details Date Type Department Care Team Description 10/07/2016 Hospital Encounter [facility] Ultrasound Monty Garcia MD [address] [place] [address] [address] [place], [place] [phone] (Wo rk) Social History Tobacco Use Types [...] NOS documented in this encounter Care Teams Principal Librarian Relationship Specialty Start Date End Date Provider, Outside PCP - General 03/13/09 10/22/18 [place] [address] documented as of this encounter
--- OUTSIDE RECORDS SUMMARY | 2022-06-13 12:54 | XMS_ITS | Encounter Summary ---
:1955 Author Organization [facility] Address [address] [place] [address] Phone Care Team Providers Name Role Phone Provider, Outside Primary Care Provider Unavailable Reason for Visit Reason Comments Follow-up NEUROGENIC BLADDER Encounter Details Date Type Department Care Team Description 09/15/2016 Office Visit [facility] Urology Clinic Monty Garcia Neur ogenic bladder Yordy FALCON (Primary Dx) [address] [place] [address] [place], [place] [address] [phone] Social History Tobacco Use Types Packs/Day Years [...] Comments Blood Pressure 129/74 09/15/2016 8:09 AM EDGE GRINDER MACHINE Pulse 75 09/15/2016 8:09 AM EDGE GRINDER MACHINE Temperature 36.2 ??C (97.1 ??F) 09/15/2016 8:09 AM EDGE GRINDER MACHINE Respiratory Rate - - Oxygen Saturation - [...] fevers. Patient has had several admissions at [facility] for decubitus ulcers in the last [...] MD, 09/15/2016 9:14 AM Urology Staff Pager: [phone] GRINDER MACHINE documented in this encounter Plan of Treatment Not on filedocumented as of this encounter Visit Diagnoses Diagnosis Neurogenic bladder - Primary Neurogenic bladder, NOS documented in this encounter Care Teams Expansion Joint Finisher Relationship Specialty Start Date End Date Provider, Outside PCP - General 03/13/09 10/22/18 [place] [address] documented as of this encounter
--- OUTSIDE RECORDS SUMMARY | 2022-06-13 12:54 | XMS_ITS | Encounter Summary ---
:1955 Author Organization [facility] Address [address] [place] [address] Phone Care Team Providers Name Role Phone Provider, Outside Primary Care Provider Unavailable Reason for Visit Reason Comments Other Encounter Details Date Type Department Care Team Description 02/20/2013 Telephone [facility] Urology Clinic Omar Reyes MD [address] [facility], [address] Research Only [place], [place] [address] Social History Tobacco Use Types [...] Hussein Giron to refill Pro-Banthine. VORB Notified [facility] pharmacy at [phone]. Telephone Encounter - Danna Alvarez RN - [...] verbal refill request for Propantheline. Please call [phone] Expects Return Call at: ------ documented in this encounter Plan of Treatment Not on filedocumented as of this encounter Visit Diagnoses Not on filedocumented in this encounter Care Teams Application Design Engineer Relationship Specialty Start Date End Date Provider, Outside PCP - General 03/13/09 10/22/18 [place] [address] documented as of this encounter
--- OUTSIDE RECORDS SUMMARY | 2022-06-13 12:54 | XMS_ITS | Encounter Summary ---
:1955 Author Organization [facility] Address [address] [place] [address] Phone Care Team Providers Name Role Phone Provider, Outside Primary Care Provider Unavailable Reason for Visit Reason Comments Other Encounter Details Date Type Department Care Team Description 02/05/2016 Refill [facility] Urology Clinic Monty Morales MD Other [address] [facility], [address] [address] [place] [address] [phone] (Wo rk) Social History Tobacco Use Types [...] on filedocumented in this encounter Care Teams Mental Hygienist Relationship Specialty Start Date End Date Provider, Outside PCP - General 03/13/09 10/22/18 [place] [address] documented as of this encounter
--- OUTSIDE RECORDS SUMMARY | 2022-06-13 12:54 | XMS_ITS | Encounter Summary ---
:1955 Author Organization [facility] Address [address] [place] [address] Phone Care Team Providers Name Role Phone Provider, Outside Primary Care Provider Unavailable Encounter Details Date Type Department Care Team Description 02/05/2016 Orders Only [facility] Clinic Monty Garcia, Neur ogenic bladder Yordy FALCON (Primary Dx) [address], [address] [facility] [address] [place], [place] [phone] Social History Tobacco Use Types Packs/Day Years [...] NOS documented in this encounter Care Teams Box Printer Relationship Specialty Start Date End Date Provider, Outside PCP - General 03/13/09 10/22/18 [place] [address] documented as of this encounter
--- OUTSIDE RECORDS SUMMARY | 2022-06-13 12:54 | XMS_ITS | Encounter Summary ---
:1955 Author Organization [facility] Address [address] [place] [address] Phone Care Team Providers Name Role Phone Provider, Outside Primary Care Provider Unavailable Reason for Visit Reason Onset Date Comments Refill Request 07/05/2016 Encounter Details Date Type Department Care Team Description 07/05/2016 Refill [facility] [place] Divya Caraballo RN Refill Request [address] [facility], [address] [place], [place] [address] 4 [place] [address] Social History Tobacco Use Types Packs/Day Years [...] NOS documented in this encounter Care Teams Flight Deck Officer Relationship Specialty Start Date End Date Provider, Outside PCP - General 03/13/09 10/22/18 [place] [address] documented as of this encounter
--- OUTSIDE RECORDS SUMMARY | 2022-06-13 12:54 | XMS_ITS | Encounter Summary ---
:1955 Author Organization [facility] Address [address] [place] [address] Phone Care Team Providers Name Role Phone Provider, Outside Primary Care Provider Unavailable Reason for Visit Reason Comments Follow-up Encounter Details Date Type Department Care Team Description 09/03/2012 Office Visit [facility] Pooja Krueger MD [address] [facility] [address] [place], [place] [id number] Neurogenic bladder [place] Omar Savage MD Research Only (Primary Dx) [address], [address] [place], [place] [address] Social History Tobacco Use Types [...] Comments Blood Pressure 112/64 09/03/2012 1:52 PM CASH PERSON Pulse 68 09/03/2012 1:52 PM CASH PERSON Temperature - - Respiratory Rate - - Oxygen Saturation - - Inhaled Oxygen Concentration - - Weight - - Height - - Body Mass Index - - documented in this encounter Progress Notes Omar Savage MD - 09/04/2012 8:32 PM CST [facility] [address] [facility], [address] [place] [address] (fax) [facility] [id number] PATIENT: MICHEAL RENE : 1955 DATE: 09/03/2012 [...] MD Staff Physician Surgery Service Received in English Language Learner Tutor: 09/04/2012 12:20 M: 09/04/2012 20:32 [facility]/ Voice ID: [id number] Document ID: [id number] PERSON Omar Savage MD - 09/04/2012 12:19 PM CST This office note has been dictated. PERSON documented in this encounter Plan of Treatment Not on filedocumented as of this encounter Procedures Procedure Name Priority Date/Time Associated Diagnosis Comme nts URINE CULTURE Routine 09/03/2012 2:22 PM Neurogenic bladder Re sults for this CASH PERSON procedure are i n the results section. URINALYSIS,TOTAL Routine 09/03/2012 2:22 PM Neurogenic bladder Results for this CASH PERSON procedure are i n the results section. documented in this encounter Results URINE CULTURE (09/03/2012 2:22 PM CASH PERSON) [facility] Method Time Signature Urine Cult [facility] ? PROCEDURE: MB Urine Culture ?SOURCE: Urine Midstream ?COLLECTED: 09/03/2012 14:22 ? BODY SITE: ?FREE TEXT SOURCE: ?STARTED: 09/03/2012 15:35 ? FINAL REPORT Final Report Verified:09/05/2012 13:06 50,000 - 100,000 organisms/ml Mixed gram positive arthur. No further work-up. Specimen Anatomical Collection Method Collection Time Receive d Time (Source) Location / / Volume Laterality Urine Midstream. 09/03/2012 2:22 PM 09/03 3:34 (Urine) CASH PERSON PM CASH PERSON Omar Savage MD LAB MICROBIOLOGY Performing Organization Address City/State/ZIP Code Phon e Number [facility] [place] [address] (ABNORMAL) URINALYSIS, TOTAL (09/03/2012 2:22 PM CASH PERSON) athologist Signature Color YELLOW YELLOW [facility] Appearance CLEAR CLEAR [facility] Urine Glucose NEGATIVE NEGATIVE [facility] Bili UA NEGATIVE NEGATIVE [facility] Comment: Confirmatory test not available . Ketones NEGATIVE NEGATIVE [facility] Specific [place] 1.016 1.003 - 1.030 [facility] Blood Ur NEGATIVE Neg-Trace [facility] PH Urine 6.5 5.0 - 7.0 [facility] Protein Ur NEGATIVE Neg-Trace [facility] Urobilinogen 1.0 0.2 - 1.0 EU/dL [facility] Nitrite Ur NEGATIVE NEGATIVE [facility] Leuk Est SMALL (A) Neg-Trace [facility] WBC Ur 6-20 (A) 0 - 5 perHPF [facility] RBC Ur 0-5 0 - 5 perHPF [facility] SQ EPITH 2+ 1+ [facility] Specimen Anatomical Collection Method Collection Time Receive d Time (Source) Location / / Volume Laterality Urine 09/03/2012 2:22 PM 3 2:51 CASH PERSON PM CASH PERSON Omar Savage MD LABORATORY Performing Organization Address City/State/ZIP Code Phon e Number [facility] [place] [address] documented in this encounter Visit Diagnoses Diagnosis Neurogenic bladder - Primary Neurogenic bladder, NOS documented in this encounter Care Teams Digital Cartographer Relationship Specialty Start Date End Date Provider, Outside PCP - General 03/13/09 10/22/18 [place] [address] documented as of this encounter
--- OUTSIDE RECORDS SUMMARY | 2022-06-13 12:55 | XMS_ITS | Encounter Summary ---
:1955 Author Organization [facility] Address [address] [place] [address] Phone Care Team Providers Name Role Phone Provider, Outside Primary Care Provider Unavailable Reason for Visit Reason Comments Follow-up Encounter Details Date Type Department Care Team Description 09/24/2010 Office [place] [facility] [place] DaysiBubba Veronica us ulcer, stage Clinic MD Valery IV () (Primary Dx) [address] [facility] [address] [facility] [address] Mail Code [address] [place], [place] [address] [place], [place] [phone] [address] Social History Tobacco Use Types Packs/Day Years Used Date Smoking Tobacco: Never Smokeless Tobacco: Never Alcohol Use Standard Drinks/Week Comments Yes 3.3 (1 standard drink = 0.6 oz pure alco hol) once in while Sex Assigned at Date Recorded Not on file documented as of this encounter Last Filed Vital Signs Vital Sign Reading Time Taken Comments Blood Pressure 107/73 09/24/2010 10:33 AM MANAGER ACCESS Pulse 87 09/24/2010 10:33 AM MANAGER ACCESS Temperature 36.8 ??C (98.2 ??F) 09/24/2010 10:33 AM MANAGER ACCESS Respiratory Rate - - Oxygen Saturation - [...] of infection, please contact the Surgery clinic [phone]: redness, warmth, swelling, drainage, pain, and/or fever over 100 degrees. GER ACCESS documented in this encounter Progress Notes Mari Odell RN - 09/24/2010 2:45 PM CST Wound care D: Here for wound care. Location: coccyx A: Exam per provider. Wound cleansed with: technicare, H2O and rinsed. Dressing applied: and wet to dry with 1/2 packing and 2x2's with Island dressing. R: Patient tolerated procedure well. P: As ordered by provider. GER ACCESS Syl Yanes MD - 09/24/2010 11:21 AM [...] has received the special cushion from the [facility] which is supposed to relieve pressure from that area. He does have another apptset up with Soumya at the [facility] to complete the mapping to [...] documented. Bubba Tavarez MD, 09/25/2010 9:26 AM GER ACCESS documented in this encounter Plan of Treatment Not on filedocumented as of this encounter Visit Diagnoses Diagnosis Decubitus ulcer, stage IV () - Primary Pressure ulcer, unspecified site documented in this encounter Care Teams Family Life Counselor Relationship Specialty Start Date End Date Provider, Outside PCP - General 03/13/09 10/22/18 [place] [address] documented as of this encounter
--- OUTSIDE RECORDS SUMMARY | 2022-06-13 12:55 | XMS_ITS | Encounter Summary ---
:1955 Author Organization [facility] Address [address] [facility] [address] Phone Care Team Providers Name Role Phone Provider, Outside Primary Care Provider Unavailable Reason for Visit Reason Onset Date Comments Call Back 09/06/2010 Encounter Details Date Type Department Care Team Description 09/06/2010 Telephone [facility] [place] [facility] [place] Vickie Odell RN Call Back [address] [facility] [address] [address] [place], [place] [address] Social History Tobacco Use Types [...] states that he does not have a tombstone polisher in [facility]. R: Patient quadriplegic states that he would like to speak directly with . Routing to OR WIND TURBINE TECHNICIAN Telephone Encounter - Vickie Odell RN - 09/06/2010 1:59 PM CST Message copied by VICKIE ODELL on MonSep 06, 2010 1:59 PM ------ Message from: BRANDEE TALAMANTES Created: MonSep 06, 2010 1:52 PM 09/06/2010 1:53 PM Khanh Edgard @[email or web address]@ 1955 Questions regarding a referral for a pressure sore from Dr Frances. Best number to call patient back: [phone]. Best time of day to reach patient:anytime. OR WIND TURBINE TECHNICIAN documented in this encounter Plan of Treatment Not on filedocumented as of this encounter Visit Diagnoses Not on filedocumented in this encounter Care Teams Application Security Consultant Relationship Specialty Start Date End Date Provider, Outside PCP - General 03/13/09 10/22/18 [place] [address] documented as of this encounter
--- OUTSIDE RECORDS SUMMARY | 2022-06-13 12:55 | XMS_ITS | Encounter Summary ---
:1955 Author Organization [facility] Address [address] [place] [address] Phone Care Team Providers Name Role Phone Provider, Outside Primary Care Provider Unavailable Reason for Visit Reason Onset Date Comments Supplies 09/20/2010 Encounter Details Date Type Department Care Team Description 09/20/2010 Telephone [facility] Surgery Clinic Alka Jade RN Supplies [address] [place] [address] [place], [place] [address] Social History Tobacco Use Types [...] 10:02 AM CST Verified that [facility] received fax for supplies on 09/17/10. NUT JELLY ROLLER Telephone Encounter - Alka Jade RN - [...] Insurance: PCP: Outside Provider Comment: [facility] [phone] Prescribed supplies Expects Return Call at: home see above NUT JELLY ROLLER documented in this encounter Plan of Treatment Not on filedocumented as of this encounter Visit Diagnoses Not on filedocumented in this encounter Care Teams Skiver Box Toe Relationship Specialty Start Date End Date Provider, Outside PCP - General 03/13/09 10/22/18 [place] [address] documented as of this encounter
--- OUTSIDE RECORDS SUMMARY | 2022-06-13 12:55 | XMS_ITS | Encounter Summary ---
:1955 Author Organization [facility] Address [address] [place] [address] Phone Care Team Providers Name Role Phone Provider, Outside Primary Care Provider Unavailable Encounter Details Date Type Department Care Team Description 10/19/2010 Refill [facility] Urology Omar Savage MD [address] [facility], [address] Research Only [place], [place] [address] Social History Tobacco Use Types [...] Outside Provider Comment: Please call [facility] pharmacy regarding getting an alternative for his medication Propantheline. Please call Ange Valdivia Return Call at: [phone] documented in this encounter Plan of Treatment Not on filedocumented as of this encounter Visit Diagnoses Diagnosis Neurogenic bladder - Primary Neurogenic bladder, NOS documented in this encounter Care Teams Conductor Sleeping Car Relationship Specialty Start Date End Date Provider, Outside PCP - General 03/13/09 10/22/18 [place] [address] documented as of this encounter
--- OUTSIDE RECORDS SUMMARY | 2022-06-13 12:55 | XMS_ITS | Encounter Summary ---
:1955 Author Organization [facility] Address [address] [place] [address] Phone Care Team Providers Name Role Phone Provider, Outside Primary Care Provider Unavailable Encounter Details Date Type Department Care Team Description 09/13/2010 Notes/Trans [facility] Sameera Frances MD [address] [facility] Professional Mail Code [address] [address] [place] [address] [phone] Social History Tobacco Use Types Packs/Day Years Used Date Smoking Tobacco: Never Alcohol Use Standard Drinks/Week Comments Yes 3.3 (1 standard drink = 0.6 oz pure alco hol) Sex Assigned at Date Recorded Not on file documented as of this encounter Progress Notes Sameera Frances MD - 09/16/2010 12:35 [place] [address] [facility]#: [id number] PATIENT: MICHEAL RENE : 1955 DATE: 09/13/2010 [...] Physical Medicine and Rehabilitation Service Received in Information Architect: 09/13/2010 15:26 M: 09/14/2010 09:05 [facility] HOMA/srikanth Voice ID: [id number] Document ID: [id number] ING MACHINE OPERATOR documented in this encounter Plan of Treatment Not on filedocumented as of this encounter Visit Diagnoses Not on filedocumented in this encounter Care Teams Transmitter Chief Relationship Specialty Start Date End Date Provider, Outside PCP - General 03/13/09 10/22/18 [place] [address] documented as of this encounter
--- OUTSIDE RECORDS SUMMARY | 2022-06-13 12:55 | XMS_ITS | Encounter Summary ---
:1955 Author Organization [facility] Address [address] [facility] [place] [address] Phone Care Team Providers Name Role Phone Provider, Outside Primary Care Provider Unavailable Reason for Visit Reason Comments Neurologic Problem pmr Encounter Details Date Type Department Care Team Description 12/27/2010 Office Visit [facility] Phys Med/Rehab Abhinav Chavez MD NEED ADDRESS Ulcer () (Primary Clinic Sameera Frances MD [address] [email or web address] Mail Code [address] [place] [address] Dx) [address] [email or web address] [address] [place], [place] [address] Social History Tobacco Use [...] site documented in this encounter Care Teams Computer Science Teacher Relationship Specialty Start Date End Date Provider, Outside PCP - General 03/13/09 10/22/18 [place] [address] documented as of this encounter
--- OUTSIDE RECORDS SUMMARY | 2022-06-13 12:55 | XMS_ITS | Encounter Summary ---
:1955 Author Organization [facility] Address [address] [facility] [place] [address] Phone Care Team Providers Name Role Phone Provider, Outside Primary Care Provider Unavailable Reason for Visit Reason Comments Follow-up Encounter Details Date Type Department Care Team Description 12/06/2010 Office Visit [facility] Phys Med/Rehab Sameera Frances U lcer () (Primary Clinic MD Dx) [address] [facility] [address] Mail [address] [place], [place] [address] [place], [place] [phone] (Wo rk) Social History Tobacco Use Types [...] site documented in this encounter Care Teams Molding Room Supervisor Relationship Specialty Start Date End Date Provider, Outside PCP - General 03/13/09 10/22/18 [place] [address] documented as of this encounter
--- OUTSIDE RECORDS SUMMARY | 2022-06-13 12:55 | XMS_ITS | Encounter Summary ---
:1955 Author Organization [facility] Address [address] [place] [address] Phone Care Team Providers Name Role Phone Provider, Outside Primary Care Provider Unavailable Encounter Details Date Type Department Care Team Description 09/17/2010 Hospital Encounter [facility] Arnold Vora [address]én[address] MD [place], [place] [address] 706 [facility] [phone] [place], [place] [id number] Social History Tobacco Use Types Packs/Day Years [...] () Results for this LAT HIP AM HIDE COOKING OPERATOR procedure are i n the results section. documented in this encounter Results (ABNORMAL) XR PELVIS WITH BOTH LAT HIP (09/17/2010 10:28 AM HIDE COOKING OPERATOR) Anatomical Region Laterality Modality Pelvis Computed Radiography Specimen (Source) Anatomical Collection Method Collection Time Re ceived Time Location / / Volume Laterality 09/17/2010 10:28 AM HIDE COOKING OPERATOR Impressions 09/17/2010 10:35 AM HIDE COOKING OPERATOR Impression: Severe osteoarthritis involving both hips with postsurgical fixation of a left hip fracture. There is no cortical irregularity to suggest osteomyelitis. This however lucency surrounding a fe moral IM nail. Three-phase bone scan may be beneficial to assess for infection surrounding the nail if clinically indicated. Reading Radiologist: Khanh Brunson Narrative 09/17/2010 10:35 AM HIDE COOKING OPERATOR History: Rule out osteo. Comparison: None. [...] unspecified documented in this encounter Care Teams Landscaping Manager Relationship Specialty Start Date End Date Provider, Outside PCP - General 03/13/09 10/22/18 [place] [address] documented as of this encounter
--- OUTSIDE RECORDS SUMMARY | 2022-06-13 12:55 | XMS_ITS | Encounter Summary ---
:1955 Author Organization [facility] Address [address] [place] [address] Phone Care Team Providers Name Role Phone Provider, Outside Primary Care Provider Unavailable Encounter Details Date Type Department Care Team Description 11/15/2010 Office Visit [facility] [place] Med/Rehab Sameera Frances D ecubitus ulcer Clinic (Primary Dx) [address] [facility] [address] Mail [address] [place], [place] [address] [place], [place] [phone] (Wo rk) Social History Tobacco Use Types [...] Frances MD - 11/16/2010 10:42 [place] [address] MEDREC#: [id number] PATIENT: MICHEAL RENE : 1955 DATE: 11/15/2010 [...] Physical Medicine and Rehabilitation Service Received in Operations Liaison: 11/15/2010 12:55 M: 11/16/2010 02:37 bj CLR/bj Voice ID: [id number] Document ID: [id number] cc:[place] [address] Sameera Frances MD - 11/15/2010 12:44 PM CDT See dictation Sameera Frances MD, 11/15/2010 12:44 PM documented in this encounter Plan of Treatment Not on filedocumented as of this encounter Visit Diagnoses Diagnosis Decubitus ulcer - Primary Pressure ulcer, unspecified site documented in this encounter Care Teams Automatic Bow Maker Machine Tender Relationship Specialty Start Date End Date Provider, Outside PCP - General 03/13/09 10/22/18 [place] [address] documented as of this encounter
--- OUTSIDE RECORDS SUMMARY | 2022-06-13 12:55 | XMS_ITS | Encounter Summary ---
:1955 Author Organization [facility] Address [address] [facility] [place] [address] Phone Care Team Providers Name Role Phone Provider, Outside Primary Care Provider Unavailable Reason for Visit Reason Comments Referral Consult/Test/Treat (Routine) - Closed Specialty Diagnoses / Procedures Referred By Contact Refer red To Contact Plastic Surgery / Diagnoses Ulcer Sameera Frances, PLASTIC SURGERY [address] [place], [place] [address] Referral ID Status Reason Start Date Expiration Date Visits Requ ested Visits Authorized [id number] Closed 09/13/2010 09/13/2011 1 1 Encounter Details Date Type Department Care Team Description 09/17/2010 Office Visit [facility] Plastic Surg Bubba Loya () Sara Rasmussen MD (Primary Dx) [address] Mail [address] [place], [place] [address] [place], [place] [phone] Social History Tobacco Use Types Packs/Day Years Used Date Smoking Tobacco: Never Smokeless Tobacco: Never Alcohol Use Standard Drinks/Week Comments Yes 3.3 (1 standard drink = 0.6 oz pure alco hol) once in while Sex Assigned at Date Recorded Not on file documented as of this encounter Last Filed Vital Signs Vital Sign Reading Time Taken Comments Blood Pressure 112/77 09/17/2010 8:59 AM HOUSE REPAIRER Pulse 98 09/17/2010 8:59 AM HOUSE REPAIRER Temperature 35.9 ??C (96.7 ??F) 09/17/2010 8:59 AM HOUSE REPAIRER Respiratory Rate - - Oxygen Saturation - [...] P: As ordered by provider. Dr loya E REPAIRER Arnold Mejía MD - 09/17/2010 9:45 AM [...] documented. Bubba Loya MD, 09/17/2010 11:39 AM E REPAIRER documented in this encounter Plan of Treatment Not on filedocumented as of this encounter Procedures Procedure Name Priority Date/Time Associated Diagnosis Comme nts SED RATE (ESR) Routine 09/17/2010 9:44 AM Quadriplegia () Re sults for this HOUSE REPAIRER procedure are i n the results section. CBC WITH PLATELET Routine 09/17/2010 9:44 AM Quadriplegia () Results for this HOUSE REPAIRER procedure are i n the results section. documented in this encounter Results (ABNORMAL) XR PELVIS WITH BOTH LAT HIP (09/17/2010 10:28 AM HOUSE REPAIRER) Anatomical Region Laterality Modality Pelvis Computed Radiography Specimen (Source) Anatomical Collection Method Collection Time Re ceived Time Location / / Volume Laterality 09/17/2010 10:28 AM HOUSE REPAIRER Impressions 09/17/2010 10:35 AM HOUSE REPAIRER Impression: Severe osteoarthritis involving both hips with postsurgical fixation of a left hip fracture. There is no cortical irregularity to suggest osteomyelitis. This however lucency surrounding a fe moral IM nail. Three-phase bone scan may be beneficial to assess for infection surrounding the nail if clinically indicated. Reading Radiologist: Khanh Brunson Narrative 09/17/2010 10:35 AM HOUSE REPAIRER History: Rule out osteo. Comparison: None. Findings [...] (ABNORMAL) CBC WITH PLATELET (09/17/2010 9:44 AM HOUSE REPAIRER) P athologist Signature WBC 5.3 4.0 - 10.0 [facility] k/cmm RBC 4.03 (L) 4.60 - 6.00 [facility] m/cmm Hgb 11.8 (L) 13.1 - 17.5 [facility] g/dL Hematocrit 36.4 (L) 40.0 - 51.0 [facility] % MCV 90.3 80.0 - [facility] 100.0 fL MCH 29.3 25.0 - 32.0 [facility] pg MCHC 32.4 31.0 - 36.0 [facility] g/dL RDW 12.8 11.5 - 14.5 [facility] % Plt 308 150 - 400 [facility] k/cmm MPV 8.0 6.5 - 12.5 [facility] fL NRBC .0 0.0 - 0.0 % [facility] Specimen Anatomical Collection Method Collection Time Receive d Time (Source) Location / / Volume Laterality Blood 09/17/2010 9:44 AM 1 9:44 HOUSE REPAIRER AM HOUSE REPAIRER Arnold Mejía MD LABORATORY Performing Organization Address City/[facility]/ZIP [facility] Phon e Number [facility] [place] [address] LAB (ABNORMAL) SED RATE (ESR) (09/17/2010 9:44 AM HOUSE REPAIRER) P athologist Signature Sed Rate 51 (H) 0 - 10 mm/hr [facility] Specimen Anatomical Collection Method Collection Time Receive d Time (Source) Location / / Volume Laterality Blood 09/17/2010 9:44 AM 1 9:44 HOUSE REPAIRER AM HOUSE REPAIRER Arnold Mejía MD LABORATORY Performing Organization Address City/[facility] Phon e Number [facility] [place] [address] LAB documented in this encounter Visit Diagnoses Diagnosis Quadriplegia () - Primary Quadriplegia, unspecified Quadriplegia () Quadriplegia, unspecified documented in this encounter Care Teams Octave Board Racker Relationship Specialty Start Date End Date Provider, Outside PCP - General 03/13/09 10/22/18 [place] [address] documented as of this encounter
--- OUTSIDE RECORDS SUMMARY | 2022-06-13 12:55 | XMS_ITS | Encounter Summary ---
:1955 Author Organization [facility] Address [address] [facility] [place] [address] Phone Care Team Providers Name Role Phone Provider, Outside Primary Care Provider Unavailable Reason for Visit Reason Onset Date Comments Question 09/22/2010 Encounter Details Date Type Department Care Team Description 09/22/2010 Telephone [facility] [place] Blanca Marti, NILSA Question [address] [facility] [address] [address] [place], [place] [address] Social History Tobacco Use [...] discuss concerns with Dr. Loya. He agreed. E REVIEWER Telephone Encounter - Blanca Marti RN - 09/22/2010 10:35 AM CST Pt calling in with frustrations Saw dr. loya who wants pt to see dr. bernstein again before coming back Dr. bernstein wants pt to be seen in [facility] Paperwork faxed to them and pt will call and schedule Pt having questions regarding his care of his wound after seeing dr. loya- felt his appt was so brief with dr. loya and is unsatisfied and would like to speak with nsg staff in surgery clinic Routed to surg clinic RNs Blanca Marti RN, 09/22/2010 10:35 AM E REVIEWER documented in this encounter Plan of Treatment Not on filedocumented as of this encounter Visit Diagnoses Not on filedocumented in this encounter Care Teams Television Production Clerk Relationship Specialty Start Date End Date Provider, Outside PCP - General 03/13/09 10/22/18 [place] [address] documented as of this encounter
--- OUTSIDE RECORDS SUMMARY | 2022-06-13 12:55 | XMS_ITS | Encounter Summary ---
:1955 Author Organization [facility] Address [address] [place] [address] Phone Care Team Providers Name Role Phone Provider, Outside Primary Care Provider Unavailable Reason for Referral Consult/Test/Treat (Routine) - Closed Specialty Diagnoses / Procedures Referred By Contact Refer red To Contact Plastic Surgery / Diagnoses Ulcer Sameera Frances, PLASTIC SURGERY MD [address] [place], [place] [address] Referral ID Status Reason Start Date Expiration Date Visits Requ ested Visits Authorized [id number] Closed 09/13/2010 09/13/2011 1 1 INVESTIGATION LIEUTENANT Encounter Details Date Type Department Care Team Description 09/13/2010 Orders Only [facility] [place]hab Sameera Frances U lcer () (Primary Clinic MD Dx) [address] Mail [address] [place], [place] [address] [place], [place] [phone] (Wo rk) Social History Tobacco Use Types [...] site documented in this encounter Care Teams Landscape Nurseryman Relationship Specialty Start Date End Date Provider, Outside PCP - General 03/13/09 10/22/18 [place] [address] documented as of this encounter
--- OUTSIDE RECORDS SUMMARY | 2022-06-13 12:55 | XMS_ITS | Encounter Summary ---
:1955 Author Organization [facility] Address [address] [place] [address] Phone Care Team Providers Name Role Phone Provider, Outside Primary Care Provider Unavailable Reason for Visit Reason Onset Date Comments Call Back 09/30/2010 Encounter Details Date Type Department Care Team Description 09/30/2010 Nurse Triage [facility] [place] Quang Toscano, Call Back [facility] [address] [place] [address] Social History Tobacco Use Types Packs/Day [...] requests that she call back again at [phone]. R: routing to TED INSTRUMENT INSPECTOR Telephone Encounter - Quang Toscano RN - 09/30/2010 4:24 PM FRETTED INSTRUMENT INSPECTOR Message copied by QUANG TOSCANO on MonSep [...] CHRISTIANO TINAJERO Phone number for return call: [phone] TED INSTRUMENT INSPECTOR documented in this encounter Plan of Treatment Not on filedocumented as of this encounter Visit Diagnoses Not on filedocumented in this encounter Care Teams Crm Consultant Relationship Specialty Start Date End Date Provider, Outside PCP - General 03/13/09 10/22/18 [place] [address] documented as of this encounter
--- OUTSIDE RECORDS SUMMARY | 2022-06-13 12:55 | XMS_ITS | Encounter Summary ---
:1955 Author Organization [facility] Address [address] [place] [address] Phone Care Team Providers Name Role Phone Provider, Outside Primary Care Provider Unavailable Reason for Visit Reason Onset Date Comments Supplies 09/17/2010 Encounter Details Date Type Department Care Team Description 09/17/2010 Telephone [facility] Surgery Clinic Alka Jade RN Supplies [address] [place] [address] [place], [place] [address] Social History Tobacco Use [...] for supply list to be faxed to [facility] Shwetha Martin @ [phone]. Pt was seen today by Dr Tavarez and wet to dry dressing was ordered. Pt has a f/u appt scheduled on 09/24/[address] Tavarez. T TAPPING MACHINE OPERATOR Telephone Encounter - Alka Jade [...] Provider Comment: Expects Return Call at: pt [phone] T TAPPING MACHINE OPERATOR documented in this encounter Plan of Treatment Not on filedocumented as of this encounter Visit Diagnoses Not on filedocumented in this encounter Care Teams Coke Production Heater Relationship Specialty Start Date End Date Provider, Outside PCP - General 03/13/09 10/22/18 [place] [address] documented as of this encounter
--- OUTSIDE RECORDS SUMMARY | 2022-06-13 12:55 | XMS_ITS | Encounter Summary ---
:[address] [facility] Address [address] [facility] [place] [address] Phone Care Team Providers Name Role Phone Provider, Outside Primary Care Provider Unavailable Reason for Visit Reason Onset Date Comments Call Back 11/08/2010 Encounter Details Date Type Department Care Team Description 11/08/2010 Telephone [facility] [place] Vickie Odell RN Call Back [address] [facility] [address] [address] [place], [place] [address] Social History Tobacco Use Types [...] that was to call [employer] [phone] to order supplieslast after last visit 11-01-10. [...] Outside Provider Comment:na Expects Return Call at: [phone] documented in this encounter Plan of Treatment Not on filedocumented as of this encounter Visit Diagnoses Not on filedocumented in this encounter Care Teams Filler Blender Relationship Specialty Start Date End Date Provider, Outside PCP - General 03/13/09 10/22/18 [place] [address] documented as of this encounter
--- OUTSIDE RECORDS SUMMARY | 2022-06-13 12:55 | XMS_ITS | Encounter Summary ---
:1955 Author Organization [facility] Address [address] [facility] [place] [address] Phone Care Team Providers Name Role Phone Provider, Outside Primary Care Provider Unavailable Reason for Visit Reason Comments Neurologic Problem pmr Encounter Details Date Type Department Care Team Description 11/01/2010 Office Visit [facility] Phys Med/Rehab Sameera Frances D ecubitus ulcer, Clinic MD mackey (Primary Dx) [address] [facility] [address] Mail Code [address] [place], [place] [address] [place], [place] [phone] (Wo rk) Social History Tobacco Use Types [...] CDT Height - - Body Mass Index 75492.15 07/31/2007 3:21 PM AGILE TEST LEAD documented in this encounter Patient Instructions Patient [...] male with long history of a C7 Citizen [place] Spinal Cord Injury Association B spinal cord [...] 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
--- OUTSIDE RECORDS SUMMARY | 2022-06-13 12:55 | XMS_ITS | Encounter Summary ---
:1955 Author Organization [facility] Address [address] [place], [place] [address] [address] Phone Care Team Providers Name Role Phone Provider, Outside Primary Care Provider Unavailable Encounter Details Date Type Department Care Team Description 10/01/2010 Orders Only [facility] Omar Savage, Neurogenic bladder [address], [address] (Primary Dx) [place], [place] [address] Research Only [phone] Social History Tobacco Use Types Packs/Day Years [...] documented in this encounter Care Teams Quality Improvement Analyst Relationship Specialty Start Date End Date Provider, Outside PCP - General 03/13/09 10/22/18 [place] [address] documented as of this encounter
--- OUTSIDE RECORDS SUMMARY | 2022-06-13 12:56 | XMS_ITS | Encounter Summary ---
:1955 Author Organization [facility] Address [address] [place] [address] Phone Care Team Providers Name Role Phone Provider, Outside Primary Care Provider Unavailable Encounter Details Date Type Department Care Team Description 05/17/2010 Letters(Tab) [facility] Urology Omar Savage MD [address] [place] [address], [address] Research Only [place] [address] Social History Tobacco Use Types Packs/Day Years Used Date Smoking Tobacco: Never Alcohol Use Standard Drinks/Week Comments Yes 3.3 (1 standard drink = 0.6 oz pure alco hol) Sex Assigned at Date Recorded Not on file documented as of this encounter Progress Notes Omar Savage MD - 05/18/2010 6:15 AM CDT [facility] [address] [place] [address] May 17, 2010 TO: Micheal Rene [address] [place] [address] RE:MICHEAL RENE MR#:[id number] :1955 Dear Mr. Rene: From your recent urology clinic visit, the renal ultrasound that was performed does not show any evidence of kidney abnormalities. There is no dilation, no hydronephrosis or stones noted. Best wishes. Look forward to seeing you in 1 year. Please feel free to contact me for questions. Sincerely, Omar Savage MD Staff Physician Surgery Service Received in Steel Burner: 05/17/2010 21:18 M: 05/18/2010 03:15 javon CS/javon Voice ID: [id number] Document ID: [id number] cc:Micheal Rene [id number] [address] Espino [id number] documented in this encounter Plan of Treatment Not on filedocumented as of this encounter Visit Diagnoses Not on filedocumented in this encounter Care Teams Oracle Security Consultant Relationship Specialty Start Date End Date Provider, Outside PCP - General 03/13/09 10/22/18 [place] [address] documented as of this encounter
--- OUTSIDE RECORDS SUMMARY | 2022-06-13 12:56 | XMS_ITS | Encounter Summary ---
:1955 Author Organization [facility] Address [address] [place] [address] Phone Care Team Providers Name Role Phone Unavailable Primary Care Provider Unavailable Encounter Details Date Type Department Care Team Description 08/18/2005 Notes/Trans Unknown, Provider Social History Tobacco Use Types Packs/Day Years Used Date Smoking Tobacco: Never Assessed Sex Assigned at Date Recorded Not on file documented as of this encounter Progress Notes Interface, Coding Consultant-In - 11/15/2005 1:28 AM CDT [facility] [id number] PATIENT: MICHEAL FLETCHER [address] [facility] : 1955 [place] [address] DATE: 08/18/2005 Page (fax) The patient is [...] KEFLEX, SHELLFISH, AND AUGMENTIN. His primary care kindergarten tutor is Dr. Sameera Frances whom he sees [...] year's time. Omar Savage MD Received in Coding Consultant: 08/22/2005 18:11:27 (M: 08/24/2005 17:01:36 cb) CS/cb Voice ID: [id number] Document ID: [id number] cc: This document was electronically signed by Omar Savage MD on 08/26/2005 10:47:02. ? documented in this encounter Plan of Treatment Not on filedocumented as of this encounter Visit Diagnoses Not on filedocumented in this encounter
--- OUTSIDE RECORDS SUMMARY | 2022-06-13 12:56 | XMS_ITS | Encounter Summary ---
:1955 Author Organization [facility] Address [address] [place] [address] Phone Care Team Providers Name Role Phone Provider, Outside Primary Care Provider Unavailable Encounter Details Date Type Department Care Team Description 08/30/2010 Telephone [facility] Physical Therap y Reece Ziegler, [place] [address] [facility] [address] [place] [address] Social History Tobacco Use Types Packs/Day Years [...] 08/30/2010 11:12 AM To: Neurology Team Pool [facility] ----- Message ----- From: Nola Espino Sent: 08/27/2010 1:52 PM To: Neurology Hatch Supervisor Pool Patient: Khanh Rene : 1955 Called to schedule an appointment with provider:Dr. Frances No appointments available: with preferred provider.. Date and time requested: caryn Reason for visit: Pt has a pressure sore, and needs a FU appt Phone number for return call: [phone] Monday08/30/10. Khanh Rene will need to [facility] at [phone] to schedule a follow up visit with Dr Frances in her PM&R Clinic. We will call Khanh and inform him of this. Reece Ziegler RN AINER SHOP WELDER documented in this encounter Plan of Treatment Not on filedocumented as of this encounter Visit Diagnoses Not on filedocumented in this encounter Care Teams Circuit Court Clerk Relationship Specialty Start Date End Date Provider, Outside PCP - General 03/13/09 10/22/18 [place] [address] documented as of this encounter
--- OUTSIDE RECORDS SUMMARY | 2022-06-13 12:56 | XMS_ITS | Encounter Summary ---
:1955 Author Organization [facility] Address [address] [place] [address] Phone Care Team Providers Name Role Phone Provider, Outside Primary Care Provider Unavailable Reason for Visit Reason Comments Follow-up Encounter Details Date Type Department Care Team Description 04/01/2010 Office Visit [facility] Omar Savage, Neurogenic bladder; [address] [place] [address] Screening for prostate cancer [address] Research Only [place], [place] [address] Social History Tobacco Use Types Packs/Day Years [...] Savage MD - 04/05/2010 1:22 PM CDT [facility] [address] [facility] [place] [address] (fax) [facility]#: [id number] PATIENT: MICHEAL FLETCHER : 1955 DATE: 04/01/2010 [...] MD Staff Physician Surgery Service Received in Sea Captain: 04/02/2010 14:55 M: 04/02/2010 22:48 kn CS/kn Voice ID: [id number] Document ID: [id number] Omar Savage MD - 04/02/2010 2:55 PM [...] NOS documented in this encounter Care Teams Post Acute Care Nurse Relationship Specialty Start Date End Date Provider, Outside PCP - General 03/13/09 10/22/18 [place] [address] documented as of this encounter
--- OUTSIDE RECORDS SUMMARY | 2022-06-13 12:56 | XMS_ITS | Encounter Summary ---
:1955 Author Organization [facility] Address [address] [place] [address] Phone Care Team Providers Name Role Phone Provider, Outside Primary Care Provider Unavailable Reason for Visit Reason Onset Date Comments Refill Request 04/30/2010 Encounter Details Date Type Department Care Team Description 04/30/2010 Refill [facility] Omar Savage MD Refill Request [address] [facility] Research Only [place], [place] [address] Social History Tobacco Use Types [...] NOS documented in this encounter Care Teams Knitting Supervisor Relationship Specialty Start Date End Date Provider, Outside PCP - General 03/13/09 10/22/18 [place] [address] documented as of this encounter
--- OUTSIDE RECORDS SUMMARY | 2022-06-13 12:56 | XMS_ITS | Encounter Summary ---
:1955 Author Organization [facility] Address [address] [place] [address] Phone Care Team Providers Name Role Phone Provider, Outside Primary Care Provider Unavailable Reason for Visit Reason Comments Follow-up 13 months [facility] up [facility] Dr Frances HFA Monday PM&R Clinic for DX of C7 Spinal Cord Injury Encounter Details Date Type Department Care Team Description 04/20/2010 Office Visit [facility] Neuromuscular Sameera Frances Don plegia () Clinic MD Valery (Primary Dx) [address], [address] [place] [address] Mail Code [address] [place], [place] [address] [place], [place] [phone] Social History Tobacco Use Types Packs/Day Years [...] Frances for: 1) Wheelchair repair/s. Faxed to [facility] ([phone] 2) Referral to [facility]) Formal Wheelchair and wheeled mobility clinic faxedto scheduling to call Micheal to get scheduled ([phone]) Blanca Ziegler RN documented in this encounter Progress Notes Sameera Frances MD - 05/13/2010 3:35 PM CDT [facility] [address] [facility], [address] [place] [address] (fax) MEDREC#: [id number] PATIENT: MICHEAL FLETCHER : 1955 DATE: 04/20/2010 NEUROMUSCULAR PHYSICAL MEDICINE NOTE HISTORY OF PRESENT ILLNESS: Micheal Fletcher is a 55-year-old gentleman with a C7 [place] Spinal [employer] Injury [employer] B spinal cord [...] be broken as far the spokes. The tjvh-py-elsi stability is poor. The back of the [...] his wheelchair and recommended he see the [facility] Seating [facility] for a mapping of his buttocks and a more complete evaluation of his wheelchair. I do not think we need any changes in medications for spasticity. Sameera Frances MD Staff Physician Physical Medicine and Rehabilitation Service Received in Sales Department Clerk: 05/11/2010 20:55 M: 05/13/2010 10:09 ms CLR/ms Voice ID: [id number] Document ID: [id number] cc:[place] [address] Sameera Frances MD - 04/20/2010 11:01 AM [...] unspecified documented in this encounter Care Teams Anesthesiology Medical Doctor Relationship Specialty Start Date End Date Provider, Outside PCP - General 03/13/09 10/22/18 [place] [address] documented as of this encounter
--- OUTSIDE RECORDS SUMMARY | 2022-06-13 12:56 | XMS_ITS | Encounter Summary ---
:[address] [facility] Address [address] [place] [address] Phone Care Team Providers Name Role Phone Provider, Outside Primary Care Provider Unavailable Reason for Visit Reason Onset Date Comments Call Back 08/30/2010 Encounter Details Date Type Department Care Team Description 08/30/2010 Telephone [facility] Multispecialty Varsha Knight RN Call Back [address], [address] Multispecialty Clinic [place], [place] [address] [phone] [place] [address] (Wo rk) Social History Tobacco Use Types Packs/Day Years Used Date Smoking Tobacco: Never Alcohol Use Standard Drinks/Week Comments Yes 3.3 (1 standard drink = 0.6 oz pure alco hol) Sex Assigned at Date Recorded Not on file documented as of this encounter Miscellaneous Notes Telephone Encounter - Varsha Knight RN - 08/30/2010 4:23 PM SUPERVISOR HAND WORKERS Spoke with patient & let him know that Blanca Ziegler was working on this (see her telephone encounter from earlier today). Pt states he is using Duoderm for this pressure sore but thinks it may need other intervention. Let him know our office would be in touch soon regarding this appt. 08/31/10 830 AM. I called and talked to Khanh ([phone]) he is a Dr Frances Quadriplegia patient and he does have a open sore on his bottom, he did call scheduling at [facility] ([phone])and could not get in to see Dr Frances in her PM&R Clinic until September. I informed Khanh that I will route this phone message to Dr Frances plus I will page her to try to talk to her about Khanh. Blanca Ziegler RN RVISOR HAND WORKERS documented in this encounter Plan of Treatment Not on filedocumented as of this encounter Visit Diagnoses Not on filedocumented in this encounter Care Teams Aerospace Mechanic Relationship Specialty Start Date End Date Provider, Outside PCP - General 03/13/09 10/22/18 [place] [address] documented as of this encounter
--- OUTSIDE RECORDS SUMMARY | 2022-06-13 12:56 | XMS_ITS | Encounter Summary ---
:1955 Author Organization [facility] Address [address] [place] [address] Phone Care Team Providers Name Role Phone Pcp, No Primary Care Provider Unavailable Reason for Visit Reason Onset Date Comments Question 02/20/2009 Called with question Encounter Details Date Type Department Care Team Description 02/20/2009 Telephone [facility] Physical Medicin e Reece Ziegler, Question (Called with [facility] [address], [address] RN question) M[address] [facility] [place] [address] Clinic [phone] [place] [address] Social History Tobacco Use Types Packs/Day Years [...] Created: MonFeb 19, 2009 3:38 PM Regarding: [facility] PMR TELEPHONE MESSAGE Taken by: Natalie Painting , 02/19/2009 3:38 PM Direct to: Problem: questions Pt. Name: Khanh Rene : 1955 (home) Insurance: PCP: No PCP Comment: Expects Return Call at: [phone] Monday02/20/09 at 930am, returned Khanh's phone call, [...] on filedocumented in this encounter Care Teams Software Developer Intern Relationship Specialty Start Date End Date Pcp, No PCP - General 01/24/08 03/12/09 [facility] [place] [address] documented as of this encounter
--- OUTSIDE RECORDS SUMMARY | 2022-06-13 12:56 | XMS_ITS | Encounter Summary ---
:1955 Author Organization [facility] 3[facility] Address [address] [place] [address] Phone Care Team Providers Name Role Phone Unavailable Primary Care Provider Unavailable Reason for Visit Reason Onset Date Comments Medication Refill 10/16/2007 Encounter Details Date Type Department Care Team Description 10/16/2007 Refill [facility] Urology Omar Savage MD Medication Refill [address] [facility] Research Only [place], [place] [address] Social History Tobacco Use Types [...]
--- OUTSIDE RECORDS SUMMARY | 2022-06-13 12:56 | XMS_ITS | Encounter Summary ---
:1955 Author Organization [facility] Address [address] [place] [address] Phone Care Team Providers Name Role Phone Provider, Outside Primary Care Provider Unavailable Reason for Visit Reason Onset Date Comments Refill Request 10/21/2009 Encounter Details Date Type Department Care Team Description 10/21/2009 Refill [facility] Urology Omar Savage MD Refill Request [address] [facility] Research [place], [place] [address] Social History Tobacco Use Types [...] documented in this encounter Care Teams Information Services Assistant Relationship Specialty Start Date End Date Provider, Outside PCP - General 03/13/09 10/22/18 [place] [address] documented as of this encounter
--- OUTSIDE RECORDS SUMMARY | 2022-06-13 12:56 | XMS_ITS | Encounter Summary ---
:1955 Author Organization [facility] Address [address] [place] [address] Phone Care Team Providers Name Role Phone Unavailable Primary Care Provider Unavailable Encounter Details Date Type Department Care Team Description 05/10/2005 EWeb History [facility] Sameera Frances MD [address] [facility] 701 [place], [place] [address] Mail Code [address]5 [place] [address] (Wo rk) Social History Tobacco Use Types Packs/Day Years Used Date Smoking Tobacco: Never Assessed Sex Assigned at Date Recorded Not on file documented as of this encounter Plan of Treatment Not on filedocumented as of this encounter Visit Diagnoses Not on filedocumented in this encounter
--- OUTSIDE RECORDS SUMMARY | 2022-06-13 12:56 | XMS_ITS | Encounter Summary ---
:1955 Author Organization [facility] Address [address] [place] [address] Phone Care Team Providers Name Role Phone Pcp, No Primary Care Provider Unavailable Reason for Visit Reason Onset Date Comments Refill Request 01/28/2008 Encounter Details Date Type Department Care Team Description 01/28/2008 Refill HFA Urology Omar Savage MD Refill Request [address] [facility], [address] Research Only [place], [place] [address] Social History Tobacco Use Types [...] on filedocumented in this encounter Care Teams Global Professional Relationship Specialty Start Date End Date Pcp, No PCP - General 01/24/08 03/12/09 [facility] [place] [address] documented as of this encounter
--- OUTSIDE RECORDS SUMMARY | 2022-06-13 12:56 | XMS_ITS | Encounter Summary ---
:1955 Author Organization [facility] Address [address] [place] [address] Phone Care Team Providers Name Role Phone Unavailable Primary Care Provider Unavailable Encounter Details Date Type Department Care Team Description 09/02/2005 Letters(Tab) Unknown, Provider Social History Tobacco Use Types Packs/Day Years Used Date Smoking Tobacco: Never Assessed Sex Assigned at Date Recorded Not on file documented as of this encounter Progress Notes Interface, Medical Assembler-In - 11/15/2005 1:36 AM CDT [facility] [address] [facility], [address] [place], [place] [address] September 02, 2005 Mr. Micheal Rene [address] [place] [address] RE: MICHEAL RENE MR#: [id number] Dear Mr. Rene: From your recent Urology Clinic visit, your prostate specific antigen value remains low at 2.6. We will communicate with you once your other screening studies and x-ray studies have been completed. Best wishes. Please feel free to contact me for questions. Sincerely, Omar Savage MD Received in Medical Assembler: 09/02/2005 14:40:28 (M: 09/03/2005 06:57:04 dma) CS/fidelina Voice ID: [id number] Document ID: [id number] cc: This document was electronically signed by Omar Savage MD on 09/06/2005 18:13:45. documented in this encounter Plan of Treatment Not on filedocumented as of this encounter Visit Diagnoses Not on filedocumented in this encounter
--- OUTSIDE RECORDS SUMMARY | 2022-06-13 12:56 | XMS_ITS | Encounter Summary ---
:1955 Author Organization [facility] Address [address] [place] [address] Phone Care Team Providers Name Role Phone Unavailable Primary Care Provider Unavailable Encounter Details Date Type Department Care Team Description 10/22/2007 Abstract HFA Multispecialty Abstract, Provider [address] [place], [place] [address] Social History Tobacco Use Types [...]
--- OUTSIDE RECORDS SUMMARY | 2022-06-13 12:56 | XMS_ITS | Encounter Summary ---
:1955 Author Organization [facility] Address [address] [place] [address] Phone Care Team Providers Name Role Phone Provider, Outside Primary Care Provider Unavailable Reason for Visit Reason Comments Follow-up 19 months foolow up visit [facility] Dr Yvrose Mukherjee [facility]R [facility] Dx C7 Spinal Cord Injury Encounter Details Date Type Department Care Team Description 03/13/2009 Office Visit HFA Neuromuscular Sameera Frances Don plegia () Clinic MD Valery (Primary Dx) [address], [address] [place] [address] Mail Code P5 [place], [place] [address] [place], [place] [phone] [address] Social History Tobacco Use Types Packs/Day [...] visit with Dr Frances A [facility]R Clinic ([phone]) Rx/orders given to Micheal by Dr Frances for Wheelchair lumbar support and wheelchair repairs, bilateral arm rests, replace sling back Blanca Ziegler RN documented in this encounter Progress Notes Sameera Frances MD - 03/26/2009 10:04 AM CDT [facility] [place] [address] [facility], [address] [place] [address] (fax) [facility]#: [id number] PATIENT: MICHEAL FLETCHER : 1955 DATE: 03/13/2009 NEUROMUSCULAR PHYSICAL MEDICINE NOTE HISTORY OF PRESENT ILLNESS: Micheal Fletcher is a 54-year-old gentleman with a C7 [place] Spinal Injury Association (AUDREY) B spinal cord [...] that eventually led to pacemaker placement at [facility]. He said that his angiogram [...] discontinues that activity. He is using a [employer] wheelchair with a Joby cushion. It is [...] a slow healing coccyx ulcer at the [facility]. We have discussed whether he should go [...] that complication. Sameera Frances MD Received in Wireless Sales Manager: 03/20/2009 12:28:50 (M: 03/24/2009 03:22:10 golden) HOMA/jlb Voice ID: [id number] Document ID: [id number] cc: Abida Pulliam DO, [facility], [address] [place] [id number] Sameera Frances MD - 03/19/2009 6:44 PM CDT See dictation. documented in this encounter Nursing Notes 03/13/2009 8:00 AM CDT >> Blanca Ziegler RN MonMar 13, 2009 8:24 AM 19 months follow up visit with Dr Frances in Monday [facility]. DX of C7 Spinal Cord Injury, Quadriplegia, Neurogenic Bladder. B/P 87/60 pulse 105, states runs lower blood pressure. Self caths PRN during the day. Blanca Ziegler RN documented in this encounter Plan of Treatment Not on filedocumented as of this encounter Visit Diagnoses Diagnosis Quadriplegia () - Primary Quadriplegia, unspecified documented in this encounter Care Teams Creative Director Relationship Specialty Start Date End Date Provider, Outside PCP - General 03/13/09 10/22/18 [place] [address] documented as of this encounter
--- OUTSIDE RECORDS SUMMARY | 2022-06-13 12:56 | XMS_ITS | Encounter Summary ---
:1955 Author Organization [facility] Address [address] [place] [address] Phone Care Team Providers Name Role Phone [...]
--- OUTSIDE RECORDS SUMMARY | 2022-06-13 12:56 | XMS_ITS | Encounter Summary ---
:1955 Author Organization [facility] Address [address] [place] [address] Phone Care Team Providers Name Role Phone Pcp, No Primary Care Provider Unavailable Reason for Visit Reason Comments Follow-up med check-in Encounter Details Date Type Department Care Team Description 01/24/2008 Office Visit HFA Urology Omar Savage, Neurogenic Bladder [address] [facility] (Primary Dx) [address] Research Only [place], [place] [address] Social History Tobacco Use Types Packs/Day Years Used Date Smoking Tobacco: Never Alcohol Use Standard Drinks/Week Comments Yes 3.3 (1 standard drink = 0.6 oz pure alco hol) Sex Assigned at Date Recorded Not on file documented as of this encounter Progress Notes Omar Savage MD - 01/29/2008 2:47 PM CDT [facility] [address] [facility], [address] [place] [address] (fax) MEDREC#: [id number] PATIENT: MICHEAL RENE : 1955 DATE: 01/24/2008 [...] this examination. Omar Savage MD Received in Senior Corporate Accountant: 01/24/2008 17:47:53 (M: 01/29/2008 08:19:42 aml) CS/aml Voice ID: [id number] Document ID: [id number] cc: Omar Savage MD - 01/24/2008 5:48 [...] eGFR, >60 mL/min/1.73 HFA LAB Non- m2 Jordanian Specimen Anatomical Collection Method Collection Time Receive d Time (Source) Location / / Volume Laterality Blood 01/24/2008 4:05 PM 8 4:29 CDT PM CDT Omar Savage MD LABORATORY Performing Organization Address City/[facility]/ZIP Code Phon e Number HFA LAB GLOMERULAR FILTRATION RATE B (01/24/2008 4:05 PM CDT) P athologist Signature eGFR, >60 mL/min/1.73 HFA LAB Jordanian m2 Comment: IDMS TRACEABLE CALIBRATION EFFECTIVE 08/16/2007 Specimen Anatomical Collection Method Collection Time Receive d Time (Source) Location / / Volume Laterality Blood 01/24/2008 4:05 PM 8 4:29 CDT PM CDT Omar Savage MD LABORATORY Performing Organization Address City/[facility]/ZIP Code Phon e Number HFA LAB [...] NOS documented in this encounter Care Teams Winch Derrick Operator Relationship Specialty Start Date End Date Pcp, No PCP - General 01/24/08 03/12/09 [facility] [place] [address] documented as of this encounter
--- OUTSIDE RECORDS SUMMARY | 2022-06-13 12:56 | XMS_ITS | Encounter Summary ---
:1955 Author Organization [facility] Address [address] [place] [address] Phone Care Team Providers Name Role Phone Unavailable Primary Care Provider Unavailable Reason for Visit Reason Comments Follow-up Encounter Details Date Type Department Care Team Description 07/31/2007 Office Visit [facility] Phys Med/Rehab Sameera Frances Q uadriplegia (); Clinic Neurogenic Bowel; [address] [facility] Spastic [address]5.200 Mail Code P5 [place], [place] [address] [place], [place] [phone] (Wo rk) Social History Tobacco Use Types Packs/Day Years Used Date Smoking Tobacco: Never Alcohol Use Standard Drinks/Week Comments Yes 3.3 (1 standard drink = 0.6 oz pure alco hol) Sex Assigned at Date Recorded Not on file documented as of this encounter Last Filed Vital Signs Vital Sign Reading Time Taken Comments Blood Pressure 91/64 07/31/2007 3:21 PM SWAGING MACHINE OPERATOR Pulse 81 07/31/2007 3:21 PM SWAGING MACHINE OPERATOR Temperature - - Respiratory Rate - - Oxygen Saturation - - Inhaled Oxygen Concentration - - Weight - - Height 6 cm (2.36) 07/31/2007 3:21 PM SWAGING MACHINE OPERATOR Body Mass Index - - documented in this encounter Progress Notes Sameera Frances MD - 08/15/2007 11:05 [place] [address] MEDREC#: [id number] PATIENT: MICHEAL RENE : 1955 DATE: 07/31/2007 [facility]Y CLINIC ADDENDUM: Again, under recommendations, I did talk to him that now he is 49 that he really should have an pulley man who can coordinate his prophylactic care while he ages, in particular heart disease and prostate concerns. He is not interested and would just prefer to treat things as they come up, and declined my offers to arrange him with a Primary Care physician. Sameera Frances MD Staff Physician Physical Medicine and Rehabilitation Service Received in Assembly Line Driver: 08/02/2007 15:01:18 (M: 08/06/2007 11:31:55/dd:st) CLR/dd:st Voice ID: [id number] Document ID: [id number] cc: ING MACHINE OPERATOR Sameera Frances MD - 08/15/2007 11:05 [place] [address] [facility]#: [id number] PATIENT: MICHEAL RENE : 1955 DATE: 07/31/2007 [...] father and a grandfather. He lives in [place] and just recently he has started to [...] He has just received a new manual [employer]ie wheelchair with a J-cushion and he is [...] he likes because of stability. ASSESSMENT: C7 Ang[place] Spinal Injury Association (AUDREY) A chronic spinal [...] Physical Medicine and Rehabilitation Service Received in Assembly Line Driver: 08/02/2007 14:58:39 (M: 08/06/2007 11:12:53/dd:st) CLR/dd:st Voice ID: [id number] Document ID: [id number] cc: ING MACHINE OPERATOR Sameera Frances MD - 08/02/2007 3:01 PM CST HPI ROS Physical Exam See my dictation for today. ING MACHINE OPERATOR documented in this encounter Plan of Treatment Not on filedocumented as of this encounter Visit Diagnoses Diagnosis Quadriplegia () Quadriplegia, unspecified Neurogenic bowel Spastic Abnormal involuntary movements documented in this encounter
--- OUTSIDE RECORDS SUMMARY | 2022-06-13 12:56 | XMS_ITS | Encounter Summary ---
:1955 Author Organization [facility] Address [address] [place] [address] Phone Care Team Providers Name Role Phone Pcp, No Primary Care Provider Unavailable Encounter Details Date Type Department Care Team Description 01/29/2008 Letters(Tab) [facility] Omar Savage MD [facility] [address] [place] [address] [address]5.[address] [place], [place] [address] Social History Tobacco Use Types Packs/Day Years Used Date Smoking Tobacco: Never Alcohol Use Standard Drinks/Week Comments Yes 3.3 (1 standard drink = 0.6 oz pure alco hol) Sex Assigned at Date Recorded Not on file documented as of this encounter Progress Notes Omar Savage MD - 01/30/2008 7:23 AM CDT [facility] [address] [place] [address] 01/29/2008 TO: Micheal Rene [address] [place] [address] RE: MICHEAL RENE MR#: [id number] Dear Mr. Rene: From your recent Urology Clinic visit, your laboratory values remain stable. Your serum creatinine remains low because of your low body mass. It is 0.29. Your prostate-specific antigen blood test is 2.38, with normal up to 4. We await your return visit in one year. Best wishes. Sincerely, Omar Savage MD Received in Route Salesman: 01/29/2008 16:28:05 (M: 01/30/2008 02:45:25 jlb) CS/golden Voice ID: [id number] Document ID: [id number] cc: Micheal Rene documented in this encounter Plan of Treatment Not on filedocumented as of this encounter Visit Diagnoses Not on filedocumented in this encounter Care Teams Binder Lockstitch Relationship Specialty Start Date End Date Pcp, No PCP - General 01/24/08 03/12/09 [facility] [place] [address] documented as of this encounter
--- OUTSIDE RECORDS SUMMARY | 2022-06-13 12:56 | XMS_ITS | Encounter Summary ---
:1955 Author Organization [facility] Address [address] [place] [address] Phone Care Team Providers Name Role Phone [...] 09/23/2010 12:00 AM CSTAssociated Order(s): INFORMATION DISCLOSURE MEN'S TENNIS COACH documented in this encounter Plan of Treatment Not on filedocumented as of this encounter Procedures Procedure Name Priority Date/Time Associated Comments Diagnosis INFORMATION 09/23/2010 5:22 PM Results f or this DISCLOSURE HEAD MEN'S TENNIS COACH procedure are i n the results section. documented in this encounter Results INFORMATION DISCLOSURE (09/23/2010 5:22 PM HEAD MEN'S TENNIS COACH) Narrative 09/23/2010 5:22 PM HEAD MEN'S TENNIS COACH Procedure Note Unknown, Provider - 09/23/2010 12:00 AM CST Provider Unknown SCANNED CONSENTS documented in this encounter Visit Diagnoses Not on filedocumented in this encounter Care Teams Health Assistant Relationship Specialty Start Date End Date Provider, Outside PCP - General 03/13/09 10/22/18 [place] [address] documented as of this encounter
--- OUTSIDE RECORDS SUMMARY | 2022-06-13 12:56 | XMS_ITS | Encounter Summary ---
:1955 Author Organization [facility] Address [address] [place], [place] [address]. [place] [address] Phone Care Team Providers Name Role Phone Provider, Outside Primary Care Provider Unavailable Encounter Details Date Type Department Care Team Description 05/13/2010 Hospital Encounter [facility] [place] Omar Savage MD [address] Research Only [address] [place], [place] [address] Social History Tobacco Use Types [...] NOS documented in this encounter Care Teams Abalone Sheller Relationship Specialty Start Date End Date Provider, Outside PCP - General 03/13/09 10/22/18 [place] [address] documented as of this encounter
--- OUTSIDE RECORDS SUMMARY | 2022-06-13 12:56 | XMS_ITS | Encounter Summary ---
:1955 Author Organization [facility] Address [address] [place] [address] Phone Care Team Providers Name Role Phone Pcp, No Primary Care Provider Unavailable Reason for Visit Reason Onset Date Comments Durable Medical Equipment 02/17/2009 Question about reordering equipment Check/Request Encounter Details Date Type Department Care Team Description 02/17/2009 Telephone HFA Physical Medicin e Reece Ziegler, Durable Medical [address] [facility] RN Equipment Check/Request M50 Multispecialty (Question about [place], [place] [address] Clinic reordering equipment) [phone] [place] [address] Social History Tobacco Use Types Packs/Day Years [...] refill of dourdrem?? Spelling? Pharmacy # is [phone] Pt. Name: Khanh Rene : 1955 (home) Insurance: PCP: No PCP Comment: Expects Return Call at: [phone] or cell [phone] Monday02/17/09 Copy of this phone message given to Dr Frances and she will call patient to check on equipment order needed. Reece Ziegler RN documented in this encounter Plan of Treatment Not on filedocumented as of this encounter Visit Diagnoses Not on filedocumented in this encounter Care Teams Certified Shorthand Reporter Relationship Specialty Start Date End Date Pcp, No PCP - General 01/24/08 03/12/09 [facility] [place] [address] documented as of this encounter
--- OUTSIDE RECORDS SUMMARY | 2022-06-13 12:56 | XMS_ITS | Encounter Summary ---
:1955 Author Organization [facility] Address [address] [place] [address]. [place] [address] Phone Care Team Providers Name Role Phone Unavailable Primary Care Provider Unavailable Encounter Details Date Type Department Care Team Description 09/02/2005 Orders Only [facility] [place] [place] Ultrasound [address] [place], [place] [address] Social History Tobacco Use Types Packs/Day Years Used Date Smoking Tobacco: Never Assessed Sex Assigned at Date Recorded Not on file documented as of this encounter Plan of Treatment Not on filedocumented as of this encounter Procedures Procedure Name Priority Date/Time Associated Diagnosis Comme nts ULT KIDNEYS Routine 09/02/2005 3:16 PM Results f or this COMPLETE LENS MOLD SETTER procedure are i n the results section. documented in this encounter Results ULT KIDNEY COMPLETE (09/02/2005 3:16 PM LENS MOLD SETTER) Anatomical Region Laterality Modality Abdomen Ultrasound Specimen (Source) Anatomical Collection Method Collection Time Re ceived Time Location / / Volume Laterality 09/02/2005 3:16 PM LENS MOLD SETTER Impressions 09/05/2005 9:17 AM LENS MOLD SETTER : ??NO FOCAL MASS, STONE, OR HYDRONEPHROSIS IDENTIFIED WITHIN EITHER KIDNEY. I have personally reviewed the image(s) and initial interpretation, and I agree with the findings. . . Read Date: Sep 02 2005 ??4:12P BENEDICT AU M.D. - STAFF RADIOLOGIST FABIOLA AVALOS M.D. - RESIDENT RADIOLOGIST RELEASE RESULTS: (Y) ASI END: END RESULT: DATE DICTATED: () LEAD PAINTER: ( ) IMPRESSION Narrative 09/05/2005 9:17 AM LENS MOLD SETTER FABIOLA AVALOS M.D. - RESIDENT RADIOLOGIST Final Report EXAM: ?? RENAL US: [place] KIDNEYS ?? 04/2006 15:16 HISTORY: ??Neurogenic bladder. [...] RESIDENT RADIOLOGIST Final Report EXAM: RENAL US: [place] KIDNEYS 15:16 HISTORY: Neurogenic bladder. COMPARISON: 10/12/01. [...] ASI END: END RESULT: DATE DICTATED: () LEAD PAINTER: ( ) IMPRESSION Omar HUMPHREYT documented in this encounter Visit Diagnoses Not on filedocumented in this encounter
--- OUTSIDE RECORDS SUMMARY | 2022-06-13 12:56 | XMS_ITS | Encounter Summary ---
:1955 Author Organization [facility] Address [address] [place] [address] Phone Care Team Providers Name Role Phone Unavailable Primary Care Provider Unavailable Encounter Details Date Type Department Care Team Description 09/29/2006 Letters(Tab) [facility] [place] Omar Savage MD [facility] [address] [facility] [address] [place], [place] [address] Social History Tobacco Use Types Packs/Day Years Used Date Smoking Tobacco: Never Assessed Sex Assigned at Date Recorded Not on file documented as of this encounter Progress Notes Omar Savage MD - 09/29/2006 4:34 PM CST [facility] [address] [place] [address] 09/29/2006 TO: Micheal Rene [address] [place], [place] [address] RE: MICHEAL RENE MR#: [id number] Dear Mr. Rene: From your recent Urology Clinic visit your prostate specific antigen value remains in a normal level and is 2.87. Best wishes and please feel free to contact us for questions. Sincerely, Omar Savage MD Received in Registered Radiation Therapist: 09/29/2006 12:33:54 (M: 09/29/2006 13:29:47 kms) CS/kms Voice ID: [id number] Document ID: [id number] cc: Micheal Rene [address] [facility] [address] EM DRAWER IN documented in this encounter Plan of Treatment Not on filedocumented as of this encounter Visit Diagnoses Not on filedocumented in this encounter
--- OUTSIDE RECORDS SUMMARY | 2022-06-13 12:56 | XMS_ITS | Encounter Summary ---
:[address] [facility] Address [address] [place] [address] Phone Care Team Providers Name Role Phone [...] 08/18/2005 12:00 AM R esults for this AUTOMOTIVE SERVICE WRITER procedure are i n the results section. PSA-SCREENING(MT) Routine 08/18/2005 12:00 AM Res ults for this AUTOMOTIVE SERVICE WRITER procedure are i n the results section. CREATININE, SERUM Routine 08/18/2005 12:00 AM Res ults for this AUTOMOTIVE SERVICE WRITER procedure are i n the results section. documented in this encounter Results PSA-SCREENING(MT) (08/18/2005 12:00 AM AUTOMOTIVE SERVICE WRITER) athologist Signature PSA Screen 2.6 0.00 - 4.00 HFA LAB NG/ML Specimen (Source) Anatomical Collection Method Collection Time Re ceived Time Location / / Volume Laterality Blood 08/18/2005 08/18/2005 5:07 PM AUTOMOTIVE SERVICE WRITER Omar Savage MD LABORATORY Performing Organization Address City/State/ZIP Code Phon e Number HFA LAB BUN (UREA NITROGEN) (08/18/2005 12:00 AM AUTOMOTIVE SERVICE WRITER) athologist Signature BUN 9 5 - 25 MG/DL HFA LAB Specimen (Source) Anatomical Collection Method Collection Time Re ceived Time Location / / Volume Laterality Blood 08/18/2005 08/18/2005 5:07 PM AUTOMOTIVE SERVICE WRITER Omar Savage MD LABORATORY Performing Organization Address City/State/ZIP Code Phon e Number HFA LAB CREATININE, SERUM (08/18/2005 12:00 AM AUTOMOTIVE SERVICE WRITER) P athologist Signature Creatinine <0.5 0.5 - 1.4 HFA LAB MG/DL Comment: REPEATED Specimen (Source) Anatomical Collection Method Collection Time Re ceived Time Location / / Volume Laterality Blood 08/18/2005 08/18/2005 5:07 PM AUTOMOTIVE SERVICE WRITER Omar Savage MD LABORATORY Performing Organization Address City/State/ZIP Code Phon e Number HFA LAB documented in this encounter Visit Diagnoses Not on filedocumented in this encounter
--- OUTSIDE RECORDS SUMMARY | 2022-06-13 12:56 | XMS_ITS | Encounter Summary ---
:1955 Author Organization [facility] Address [address] [place] [address] Phone Care Team Providers Name Role Phone Pcp, No Primary Care Provider Unavailable Reason for Visit Reason Comments Follow-up neurogenic bladder Encounter Details Date Type Department Care Team Description 01/29/2009 Office Visit HFA Urology Omar Savage, Neurogenic Bladder [address] [place] [address] (Primary Dx) [address] Research Only [place], [place] [address] Social History Tobacco Use Types Packs/Day Years Used Date Smoking Tobacco: Never Alcohol Use Standard Drinks/Week Comments Yes 3.3 (1 standard drink = 0.6 oz pure alco hol) Sex Assigned at Date Recorded Not on file documented as of this encounter Progress Notes Omar Savage MD - 02/02/2009 12:28 PM CDT [facility] [address] [facility], [address] [place] [address] (fax) MEDREC#: [id number] PATIENT: MICHEAL FLETCHER : 1955 DATE: 01/29/2009 [...] pinning. The pinning was performed at the [facility]. His pacemaker was placed at the [facility]. I will request laboratory values from [...] 20 minutes. Omar Savage MD Received in Line Tender: 01/29/2009 18:41:26 (M: 02/02/2009 08:06:12 sharmila) CS/sjv Voice ID: [id number] Document ID: [id number] cc: Omar Savage MD - 01/29/2009 6:41 [...] NOS documented in this encounter Care Teams Registered Nurse First Assistant Relationship Specialty Start Date End Date Pcp, No PCP - General 01/24/08 03/12/09 [place] [address] documented as of this encounter
--- OUTSIDE RECORDS SUMMARY | 2022-06-13 12:56 | XMS_ITS | Encounter Summary ---
:1955 Author Organization [facility] Address [address] [place] [address] Phone Care Team Providers Name Role Phone [...] on filedocumented in this encounter Care Teams Ludlow Machine Operator Relationship Specialty Start Date End Date Provider, Outside PCP - General 03/13/09 10/22/18 [place] [address] documented as of this encounter
--- OUTSIDE RECORDS SUMMARY | 2022-06-13 12:56 | XMS_ITS | Encounter Summary ---
:1955 Author Organization [facility] Address [address] [place] [address] [place] [address] Phone Care Team Providers Name Role Phone Provider, Outside Primary Care Provider Unavailable Encounter Details Date Type Department Care Team Description 04/07/2010 Telephone [facility]FA Urology Omar Savage MD [address] [facility], [address] Research Only [place], [place] [address] Social History Tobacco Use Types [...] BALL AT 11:30. PLEASE CALL HIM AT [phone] Pt. Name: Khanh Rene : 1955 (home) Insurance: PCP: Outside Provider Comment: Expects Return Call at: documented in this encounter Plan of Treatment Not on filedocumented as of this encounter Visit Diagnoses Not on filedocumented in this encounter Care Teams Chronometer Assembler Relationship Specialty Start Date End Date Provider, Outside PCP - General 03/13/09 10/22/18 [place] [address] documented as of this encounter
--- OUTSIDE RECORDS SUMMARY | 2022-06-13 12:56 | XMS_ITS | Encounter Summary ---
:1955 Author Organization [facility] Address [address] [place] [address] Phone Care Team Providers Name Role Phone Pcp, No Primary Care Provider Unavailable Reason for Visit Reason Onset Date Comments Refill Request 09/02/2008 Encounter Details Date Type Department Care Team Description 09/02/2008 Refill HFA Urology Omar Savage MD Refill Request [address] [facility], [address] Research Only [place], [place] [address] Social History Tobacco Use Types Packs/Day Years Used Date Smoking Tobacco: Never Alcohol Use Standard Drinks/Week Comments Yes 3.3 (1 standard drink = 0.6 oz pure alco hol) Sex Assigned at Date Recorded Not on file documented as of this encounter Plan of Treatment Not on filedocumented as of this encounter Visit Diagnoses Not on filedocumented in this encounter Care Teams Information Security Director Relationship Specialty Start Date End Date Pcp, No PCP - General 01/24/08 03/12/09 [facility] [place] [address] documented as of this encounter
--- OUTSIDE RECORDS SUMMARY | 2022-06-13 12:56 | XMS_ITS | Encounter Summary ---
:1955 Author Organization [facility] Address [address] [place] [address] Phone Care Team Providers Name Role Phone Unavailable Primary Care Provider Unavailable Encounter Details Date Type Department Care Team Description 09/02/2005 Orders Only [facility] [place] [place] [address] [place], [place] [address] Social History Tobacco Use Types Packs/Day Years Used Date Smoking Tobacco: Never Assessed Sex Assigned at Date Recorded Not on file documented as of this encounter Plan of Treatment Not on filedocumented as of this encounter Procedures Procedure Name Priority Date/Time Associated Diagnosis Comme nts ULT KIDNEYS Routine 09/02/2005 3:16 PM Results f or this COMPLETE TECHNICAL SOURCING RECRUITER procedure are i n the results section. XR CHEST 2 VIEWS PA Routine 09/02/2005 3:03 PM Re sults for this + LAT* TECHNICAL SOURCING RECRUITER procedure are i n the results section. documented in this encounter Results ULT KIDNEY COMPLETE (09/02/2005 3:16 PM TECHNICAL SOURCING RECRUITER) Anatomical Region Laterality Modality Abdomen Ultrasound Specimen (Source) Anatomical Collection Method Collection Time Re ceived Time Location / / Volume Laterality 09/02/2005 3:16 PM TECHNICAL SOURCING RECRUITER Impressions 09/05/2005 9:17 AM TECHNICAL SOURCING RECRUITER : ??NO FOCAL MASS, STONE, OR HYDRONEPHROSIS IDENTIFIED WITHIN EITHER KIDNEY. I have personally reviewed the image(s) and initial interpretation, and I agree with the findings. . . Read Date: Sep 02 2005 ??4:12P BENEDICT AU M.D. - STAFF RADIOLOGIST FABIOLA AVALOS M.D. - RESIDENT RADIOLOGIST RELEASE RESULTS: (Y) ASI END: END RESULT: DATE DICTATED: () COMMUNICATIONS INTERN: ( ) IMPRESSION Narrative 09/05/2005 9:17 AM TECHNICAL SOURCING RECRUITER FABIOLA AVALOS M.D. - RESIDENT RADIOLOGIST Final Report EXAM: ?? RENAL US: [place] KIDNEYS ?? 04/2006 15:16 HISTORY: ??Neurogenic bladder. [...] RESIDENT RADIOLOGIST Final Report EXAM: RENAL US: [place] KIDNEYS 15:16 HISTORY: Neurogenic bladder. COMPARISON: 10/12/01. [...] ASI END: END RESULT: DATE DICTATED: () COMMUNICATIONS INTERN: ( ) IMPRESSION Omar Savage MD ULT XR CHEST 2 VIEWS PA & LAT (09/02/2005 3:03 PM TECHNICAL SOURCING RECRUITER) Anatomical Region Laterality Modality Chest Digital Radiography Specimen (Source) Anatomical Collection Method Collection Time Re ceived Time Location / / Volume Laterality 09/02/2005 3:03 PM TECHNICAL SOURCING RECRUITER Impressions 09/02/2005 3:58 PM TECHNICAL SOURCING RECRUITER : ??NO ACUTE PULMONARY INFILTRATE. ?? . . Read Date: Sep 02 2005 ??3:34P VIANCA COHEN M.D. - STAFF RADIOLOGIST - RESIDENT RADIOLOGIST RELEASE RESULTS: (Y) ASI END: END RESULT: DATE DICTATED: () COMMUNICATIONS INTERN: ( ) IMPRESSION Narrative 09/02/2005 3:58 PM TECHNICAL SOURCING RECRUITER - RESIDENT RADIOLOGIST Final Report EXAM: ?? [...] ASI END: END RESULT: DATE DICTATED: () COMMUNICATIONS INTERN: ( ) IMPRESSION Omar Savage MD X-RAY documented in this encounter Visit Diagnoses Not on filedocumented in this encounter
--- OUTSIDE RECORDS SUMMARY | 2022-06-13 12:57 | XMS_ITS | Encounter Summary ---
:1955 Author Organization [facility] Address [address] [place] [address] Phone Care Team Providers Name Role Phone Unavailable Primary Care Provider Unavailable Encounter Details Date Type Department Care Team Description 05/15/2003 EWeb History [facility] EMG Sameera Frances MD [address] [facility] [address] [place], [place] [address] Mail Code [address] [place] [address] (Wo rk) Social History Tobacco Use Types Packs/Day Years Used Date Smoking Tobacco: Never Assessed Sex Assigned at Date Recorded Not on file documented as of this encounter Plan of Treatment Not on filedocumented as of this encounter Visit Diagnoses Not on filedocumented in this encounter
--- OUTSIDE RECORDS SUMMARY | 2022-06-13 12:57 | XMS_ITS | Encounter Summary ---
:1955 Author Organization [facility] Address [address] [facility] [place] [address] Phone Care Team Providers Name Role Phone Unavailable Primary Care Provider Unavailable Encounter Details Date Type Department Care Team Description 01/29/2001 Orders Only [facility] EMG Sameera Frances MD [address] [facility] [address] [place], [place] [address] Mail Code [address] [place] [address] (Wo rk) Social History Tobacco [...] Results URINE CX (01/29/2001 3:37 PM CDT) [facility] Method Time Signature Urine Cult [facility] Test Name ? Collected on --------- [...] PM 01/31 CDT 10:25 AM CDT Narrative [facility] - 01/31/2001 10:25 AM CDT Ordered by an unspecified provider. Provider Unknown LAB MICROBIOLOGY Performing Organization Address City/State/ZIP Code Phon e Number [facility] [place] [address] LAB URINALYSIS, TOTAL (01/29/2001 3:37 PM CDT) [facility] Method Time Signature Color YELLOW YELLOW [facility] Appearance CLEAR CLEAR [facility] Urine Glucose NEGATIVE NEGATIVE [facility] Bili UA NEGATIVE NEGATIVE [facility] Ketones NEGATIVE NEGATIVE [facility] Specific [place] 1.010 1.003 - [facility] 1.030 Blood Ur TRACE Neg-Trace [facility] PH Urine 6.5 5.0 - 7.0 [facility] Protein Ur NEGATIVE NEGATIVE [facility] Urobilinogen 0.2 0.2 - 1.0 [facility] EU/dL Nitrite Ur NEGATIVE NEGATIVE [facility] Leuk Est TRACE Neg-Trace [facility] Microscopic [facility] WBC Ur 0 - 5 0 - 5 [facility] Trans Epith 1+ [facility] Sperm 1+ [facility] Specimen Anatomical Collection Method Collection Time Receive d Time (Source) Location / / Volume Laterality Urine 01/29/2001 3:37 PM 1 4:56 CDT PM CDT Narrative [facility] - 01/29/2001 4:56 PM CDT Ordered by an unspecified provider. Provider Unknown LABORATORY Performing Organization Address City/State/ZIP Code Phon e Number [facility] [place] [address] LAB documented in this encounter Visit Diagnoses Not on filedocumented in this encounter
--- OUTSIDE RECORDS SUMMARY | 2022-06-13 12:57 | XMS_ITS | Encounter Summary ---
:1955 Author Organization [facility] Address [address] [place] [address] Phone Care Team Providers Name Role Phone Unavailable Primary Care Provider Unavailable Encounter Details Date Type Department Care Team Description 05/10/2005 Notes/Trans Unknown, Provider Social History Tobacco Use Types Packs/Day Years Used Date Smoking Tobacco: Never Assessed Sex Assigned at Date Recorded Not on file documented as of this encounter Progress Notes Interface, Gate Manager-In - 11/15/2005 12:30 AM CDT [facility] MEDREC#: [id number] [place] [address] PATIENT: MICHEAL FLETCHER : 1955 NARRATIVE NOTES [...] a father and a grandfather living in [place]. REVIEW OF SYSTEMS: A total of ten [...] depression. Equipment - he has a new [employer] wheelchair and a J cushion with extra [...] Physical Medicine and Rehabilitation Service Received in Gate Manager: 05/10/2005 17:00:07 (M: 05/12/2005 12:51:56/[facility]) [facility]/cme Voice ID: [id number] Document ID: [id number] cc: This document was electronically signed by Sameera Frances MD on 06/07/2005 14:43:43. documented in this encounter Plan of Treatment Not on filedocumented as of this encounter Visit Diagnoses Not on filedocumented in this encounter
--- OUTSIDE RECORDS SUMMARY | 2022-06-13 12:57 | XMS_ITS | Encounter Summary ---
:1955 Author Organization [facility] Address [address] [place] [address] Phone Care Team Providers Name Role Phone Unavailable Primary Care Provider Unavailable Encounter Details Date Type Department Care Team Description 10/12/2001 Orders Only [facility] [place] [address] [place], [place] [address] Social History Tobacco Use Types Packs/Day Years Used Date Smoking Tobacco: Never Assessed Sex Assigned at Date Recorded Not on file documented as of this encounter Plan of Treatment Not on filedocumented as of this encounter Procedures Procedure Name Priority Date/Time Associated Diagnosis Comme nts XR CHEST 2 VIEWS PA Routine 10/12/2001 12:00 PM R esults for this + LAT* FORENSIC STRUCTURAL ENGINEER procedure are i n the results section. ULT KIDNEYS Routine 10/12/2001 11:22 AM Results for this COMPLETE FORENSIC STRUCTURAL ENGINEER procedure are i n the results section. documented in this encounter Results XR CHEST 2 VIEWS PA & LAT (10/12/2001 12:00 PM FORENSIC STRUCTURAL ENGINEER) Anatomical Region Laterality Modality Chest Digital Radiography Specimen (Source) Anatomical Collection Method Collection Time Re ceived Time Location / / Volume Laterality 10/12/2001 12:00 PM FORENSIC STRUCTURAL ENGINEER Impressions 10/14/2001 3:54 PM FORENSIC STRUCTURAL ENGINEER : 1. ??NO PULMONARY FIBROSIS OR AIR-SPACE INFILTRATE SEEN. 2. ??STABLE RIGHT LOWER LOBE PULMONARY N ODULE, LIKELY CALCIFIED. 3. ??INTERVAL MORE PROMINENT DENSITY OVE R THE MEDIAL ASPECT OF THE RIGHT APEX, OF UNCERTAIN CLINICAL SIGNIFICANCE . ??FURTHER EVALUATION WITH LORDOTIC VIEW MAY BE HELPFUL. ASI END: RELEASE RESULTS: (Y) END RESULT: IMPRESSION Narrative 10/14/2001 3:54 PM FORENSIC STRUCTURAL ENGINEER Final Report EXAM: ?? CHEST 2 [...] X-RAY ULT KIDNEY COMPLETE (10/12/2001 11:22 AM FORENSIC STRUCTURAL ENGINEER) Anatomical Region Laterality Modality Abdomen Ultrasound Specimen (Source) Anatomical Collection Method Collection Time Re ceived Time Location / / Volume Laterality 10/12/2001 11:22 AM FORENSIC STRUCTURAL ENGINEER Impressions 10/15/2001 4:06 PM FORENSIC STRUCTURAL ENGINEER : 1. ??NO RENAL STONES IDENTIFIED. 2. ??MILD CORTICAL THINNING BILATERALLY. ??THIS MAY INDICATE MEDICAL RENAL DISEASE. I have personally reviewed the image(s) and initial interpretation, and I agree with the findings. ASI END: RELEASE RESULTS: (Y) END RESULT: IMPRESSION Narrative 10/15/2001 4:06 PM FORENSIC STRUCTURAL ENGINEER Final Report EXAM: ?? RENAL US: [place]WN[place] KIDNEYS ?- ??10/12/2001 11:22AM SUSPECTED PATHOLOGY: SYMPTOMS [...] the original. Final Report EXAM: RENAL US: ABSENTEE-SHAWNEE KIDNEYS - 002 11:22AM SUSPECTED PATHOLOGY: SYMPTOMS [...]
--- OUTSIDE RECORDS SUMMARY | 2022-06-13 12:57 | XMS_ITS | Encounter Summary ---
:1955 Author Organization [facility] Address [address] [place] [address] Phone Care Team Providers Name Role Phone [...]
--- OUTSIDE RECORDS SUMMARY | 2022-06-13 12:57 | XMS_ITS | Encounter Summary ---
:1955 Author Organization [facility] Address [address] [place] [address] Phone Care Team Providers Name Role Phone Unavailable Primary Care Provider Unavailable Encounter Details Date Type Department Care Team Description 07/03/1995 Orders Only [facility] [place] [address] [place], [place] [address] Social History Tobacco Use Types Packs/Day Years Used Date Smoking Tobacco: Never Assessed Sex Assigned at Date Recorded Not on file documented as of this encounter Plan of Treatment Not on filedocumented as of this encounter Procedures Procedure Name Priority Date/Time Associated Diagnosis Comme nts XR SACRUM AP & LAT Routine 07/03/1995 2:10 PM Res ults for this CHARGING CRANE OPERATOR procedure are i n the results section. XR COCCYX AP & LAT Routine 07/03/1995 2:10 PM Res ults for this CHARGING CRANE OPERATOR procedure are i n the results section. documented in this encounter Results XR COCCYX AP & LAT (07/03/1995 2:10 PM CHARGING CRANE OPERATOR) Anatomical Region Laterality Modality Lumbar Spine Computed Radiography Specimen (Source) Anatomical Collection Method Collection Time Re ceived Time Location / / Volume Laterality 07/03/1995 2:10 PM CHARGING CRANE OPERATOR Impressions 07/05/1995 12:33 PM CHARGING CRANE OPERATOR : ??Please see Sacrum report dated 07/03/95 1410. ASI END: RELEASE RESULTS: (Y) END RESULT: IMPRESSION Narrative 07/05/1995 12:33 PM CHARGING CRANE OPERATOR Final Report EXAM: ?? COCCYX AP & LAT ? - ??07/03/1995 02:10PM ?? EXAM: ??COCCYX ??07/03/95 ??1410 HISTORY: FINDINGS: Procedure Note Carlos Boland MD - 03/23/2006Formatt ing of this note might be different from the original. Final Report EXAM: COCCYX AP & LAT - 07/03/1995 02:10 PM EXAM: COCCYX 07/03/95 1410 HISTORY: FINDINGS: IMPRESSION: Please see Sacrum report alna ed 07/03/95 1410. ASI END: RELEASE RESULTS: (Y) END RESULT: IMPRESSION Bubba Tavarez MD X-RAY XR SACRUM AP & LAT (07/03/1995 2:10 PM CHARGING CRANE OPERATOR) Anatomical Region Laterality Modality Lumbar Spine Computed Radiography Specimen (Source) Anatomical Collection Method Collection Time Re ceived Time Location / / Volume Laterality 07/03/1995 2:10 PM CHARGING CRANE OPERATOR Impressions 07/05/1995 12:33 PM CHARGING CRANE OPERATOR : ??Evidence of bone loss or destruction within the coccyx through to the S5 sacral segment. ??Associated s oft tissue changes with air in the soft tissues noted in this region. ??Alt irc these findings may simply represent postsurgical change, active in fection cannot be excluded. ??If clinically indicated, therefore, MRI exa mination may be useful in further evaluating this region. ASI END: RELEASE RESULTS: (Y) END RESULT: IMPRESSION Narrative 07/05/1995 12:33 PM CHARGING CRANE OPERATOR Final Report EXAM: ?? SACRUM AP [...]
--- OUTSIDE RECORDS SUMMARY | 2022-06-13 12:57 | XMS_ITS | Encounter Summary ---
:1955 Author Organization [facility] Address [address] [place] [address] Phone Care Team Providers Name Role Phone Unavailable Primary Care Provider Unavailable Encounter Details Date Type Department Care Team Description 04/03/[address] [facility] [place] [address] [place], [place] [address] Social History Tobacco Use Types [...]
--- OUTSIDE RECORDS SUMMARY | 2022-06-13 12:57 | XMS_ITS | Encounter Summary ---
:1955 Author Organization [facility] Address [address] [place], [place] [address] [address] Phone Care Team Providers Name Role Phone Unavailable Primary Care Provider Unavailable Encounter Details Date Type Department Care Team Description 04/03/1997 Orders Only [facility] [place] [address] [place], [place] [address] Social History Tobacco Use Types Packs/Day Years [...] CDT Final Report EXAM: ?? RENAL US: ASA'CARSARMIUT KIDNEYS ?- ??04/03/1997 01:10PM ?? EXAM: ??RENAL [...] - 03/10/2006 Final Report EXAM: RENAL US: ASA'CARSARMIUT KIDNEYS - 997 01:10PM EXAM: RENAL ULTRASOUND [...]
--- OUTSIDE RECORDS SUMMARY | 2022-06-13 12:57 | XMS_ITS | Encounter Summary ---
:1955 Author Organization [facility] Address [address] [place], [place] [address] [address] Phone Care Team Providers Name Role Phone Unavailable Primary Care Provider Unavailable Encounter Details Date Type Department Care Team Description 12/09/1998 Orders Only [facility] [place] [address] [place], [place] [address] Social History Tobacco Use Types [...]
--- OUTSIDE RECORDS SUMMARY | 2022-06-13 12:57 | XMS_ITS | Encounter Summary ---
:1955 Author Organization [facility] Address [address] [place] [address] Phone Care Team Providers Name Role Phone [...] 09/19/2001 5:05 PM Re sults for this ARMY OFFICER procedure are i n the results section. PSA Routine 09/19/2001 5:05 PM Results f or this DIAGNOSTIC(PROSTATE ARMY OFFICER procedur e are in SPE AG the results section. CREATININE, SERUM Routine 09/19/2001 5:05 PM Resu lts for this ARMY OFFICER procedure are i n the results section. documented in this encounter Results PSA DIAGNOSTIC(PROSTATE SPE AG (09/19/2001 5:05 PM ARMY OFFICER) athologist Signature PSA Diagnostic 0.5 0.00 - 4.00 [facility] NG/ML Specimen Anatomical Collection Method Collection Time Receive d Time (Source) Location / / Volume Laterality Blood 09/19/2001 5:05 PM 2 5:26 ARMY OFFICER PM ARMY OFFICER Omar Savage MD LABORATORY Performing Organization Address City/State/ZIP Code Phon e Number [facility] BUN (UREA NITROGEN) (09/19/2001 5:05 PM ARMY OFFICER) athologist Signature BUN 13 5 - 25 MG/DL [facility] Specimen Anatomical Collection Method Collection Time Receive d Time (Source) Location / / Volume Laterality Blood 09/19/2001 5:05 PM 2 5:26 ARMY OFFICER PM ARMY OFFICER Omar Savage MD LABORATORY Performing Organization Address City/State/ZIP Code Phon e Number [facility] CREATININE, SERUM (09/19/2001 5:05 PM ARMY OFFICER) P athologist Signature Creatinine 0.5 0.5 - 1.4 [facility] MG/DL Specimen Anatomical Collection Method Collection Time Receive d Time (Source) Location / / Volume Laterality Blood 09/19/2001 5:05 PM 2 5:26 ARMY OFFICER PM ARMY OFFICER Omar Savage MD LABORATORY Performing Organization Address City/State/ZIP Code Phon e Number [facility] documented in this encounter Visit Diagnoses Not on filedocumented in this encounter
--- OUTSIDE RECORDS SUMMARY | 2022-06-13 12:57 | XMS_ITS | Encounter Summary ---
:1955 Author Organization [facility] Address [address] [place] [address]. [place] [address] Phone Care Team Providers Name Role Phone Unavailable Primary Care Provider Unavailable Encounter Details Date Type Department Care Team Description 10/12/2001 Orders Only [facility] Ultrasound [address] [place], [place] [address] Social History Tobacco Use Types Packs/Day Years Used Date Smoking Tobacco: Never Assessed Sex Assigned at Date Recorded Not on file documented as of this encounter Plan of Treatment Not on filedocumented as of this encounter Procedures Procedure Name Priority Date/Time Associated Diagnosis Comme nts ULT KIDNEYS Routine 10/12/2001 11:22 AM Results for this COMPLETE HIV PREVENTION SPECIALIST procedure are i n the results section. documented in this encounter Results ULT KIDNEY COMPLETE (10/12/2001 11:22 AM HIV PREVENTION SPECIALIST) Anatomical Region Laterality Modality Abdomen Ultrasound Specimen (Source) Anatomical Collection Method Collection Time Re ceived Time Location / / Volume Laterality 10/12/2001 11:22 AM HIV PREVENTION SPECIALIST Impressions 10/15/2001 4:06 PM HIV PREVENTION SPECIALIST : 1. ??NO RENAL STONES IDENTIFIED. 2. ??MILD CORTICAL THINNING BILATERALLY. ??THIS MAY INDICATE MEDICAL RENAL DISEASE. I have personally reviewed the image(s) and initial interpretation, and I agree with the findings. ASI END: RELEASE RESULTS: (Y) END RESULT: IMPRESSION Narrative 10/15/2001 4:06 PM HIV PREVENTION SPECIALIST Final Report EXAM: ?? RENAL US: YSLETA [place] SUR KIDNEYS ?- ??10/12/2001 11:22AM SUSPECTED PATHOLOGY: SYMPTOMS [...] the original. Final Report EXAM: RENAL US: YSLETA DEL SUR KIDNEYS - 002 11:22AM SUSPECTED PATHOLOGY: SYMPTOMS [...]
--- OUTSIDE RECORDS SUMMARY | 2022-06-13 12:57 | XMS_ITS | Encounter Summary ---
:1955 Author Organization [facility] Address [address] [place] [address] Phone Care Team Providers Name Role Phone Unavailable Primary Care Provider Unavailable Encounter Details Date Type Department Care Team Description 03/04/2003 EWeb History [facility] Surgery Clinic Bubba Tavarez MD [address] Mail Code [address] [place], [place] [address] [place] [address] [phone] (Wo rk) Social History Tobacco Use Types Packs/Day Years Used Date Smoking Tobacco: Never Assessed Sex Assigned at Date Recorded Not on file documented as of this encounter Plan of Treatment Not on filedocumented as of this encounter Visit Diagnoses Not on filedocumented in this encounter
--- OUTSIDE RECORDS SUMMARY | 2022-06-13 12:57 | XMS_ITS | Encounter Summary ---
:[address] [facility] Address [address] [place] [phone] Phone Care Team Providers Name Role Phone [...]
--- OUTSIDE RECORDS SUMMARY | 2022-06-13 12:57 | XMS_ITS ---
:1955 Author Care Team Providers Name Role Phone CHETNA MERAZ MD Primary Care Provider [phone] ANN MCLAININA T[employer] Molder [phone] Allergies Code Code System Name Reaction Severity [...] MOUTH ONCE A DAY FOR 10 DAYS csyoaotl-jizyceujw-ujrlotnux 3.5 mg-10,000 unit/mL-1 % ear d rops,susp [...] Name Performed by ? 09/27/2021 US, Kidney [facility] Radiology Department [address] [place] [address] (Work Place) Results Lab Results Date Name Specimen Result Interpretation Description Value Range Status Address ? 05/06/2021 Culture, BLDV ABNORMAL Final Report microbiology ? Final [place] Urine results Urology [facility] Lab: [address], [place] 05/06/2021 Urinalysis ? No ? ? ? , Dipstick observation recorded. 02/18/2021 Culture, UR ABNORMAL Final Report microbiology ? Final [place] Urine results [facility] [place] Lab: [address], [place] ? Urinalysis ? Color-Status Yellow ? ? [...] ? ? ? Sp 1.015 ? ? [place]-Statu s ? ? ? Nitrates-Sta positive ? ? tus ? ? ? Blood-Status Trace ? Leuko-Status Large ? ? Past Encounters 09/27/2021 Neurogenic Bladder; Spinal Cord Injury; Spasm of Bladder; Recurrent Urinary Tract Infection Jono Pagan MD: [address] [place] [address], Ph. 05/06/2021 Abnormal Urine Jono Pagan MD: [address] [place] [address], Ph. 02/18/2021 Neurogenic Bladder; Spinal Cord Injury; Spasm of Bladder; Recurrent Urinary Tract Infection; Acute Urinary Tract Infection Jono Pagan MD: [address] [place] [address], Ph. Social History Tobacco Smoking Status Former [...]
--- OUTSIDE RECORDS SUMMARY | 2022-06-13 12:57 | XMS_ITS | Encounter Summary ---
:1955 Author Organization [facility] Address [address] [place] [address] Phone Care Team Providers Name Role Phone Unavailable Primary Care Provider Unavailable Encounter Details Date Type Department Care Team Description 07/03/1995 Orders Only [facility] [place] [place] XRAY [address] [place], [place] [address] Social History Tobacco Use Types Packs/Day Years Used Date Smoking Tobacco: Never Assessed Sex Assigned at Date Recorded Not on file documented as of this encounter Plan of Treatment Not on filedocumented as of this encounter Procedures Procedure Name Priority Date/Time Associated Diagnosis Comme nts XR COCCYX AP & LAT Routine 07/03/1995 2:10 PM Res ults for this HAND CLERICAL VERIFIER procedure are i n the results section. documented in this encounter Results XR COCCYX AP & LAT (07/03/1995 2:10 PM HAND CLERICAL VERIFIER) Anatomical Region Laterality Modality Lumbar Spine Computed Radiography Specimen (Source) Anatomical Collection Method Collection Time Re ceived Time Location / / Volume Laterality 07/03/1995 2:10 PM HAND CLERICAL VERIFIER Impressions 07/05/1995 12:33 PM HAND CLERICAL VERIFIER : ??Please see Sacrum report dated 07/03/95 1410. ASI END: RELEASE RESULTS: (Y) END RESULT: IMPRESSION Narrative 07/05/1995 12:33 PM HAND CLERICAL VERIFIER Final Report EXAM: ?? COCCYX AP & [...]
== END 2022-06-13 12:51 | disposition home or self-care (01) ==
LOC: WOUND 12:50
PROVIDERS: PCP Family Medicine; Visit Provider Nurse Practitioner Family
DX: L89.154 Pressure ulcer of sacral region, stage 4 (principal); L89.894 Pressure ulcer of other site, stage 4; L89.514 Pressure ulcer of right ankle, stage 4; L89.614 Pressure ulcer of right heel, stage 4; L89.893 Pressure ulcer of other site, stage 3; L89.314 Pressure ulcer of right buttock, stage 4; I73.9 Peripheral vascular disease, unspecified
CPT/HCPCS: 11042; 11043; 11044; 11046; 11047; 97597; 97605

== ENCOUNTER 2022-06-20 12:56 | Outpatient (CLI) | payer OTHER, MEDICARE, SELFPAY ==
--- OUTSIDE RECORDS SUMMARY | 2022-06-20 12:58 | XMS_ITS | Encounter Summary ---
:[address] [facility] Address [address] [facility] [place] [address] Phone Care Team Providers Name Role Phone Lila Clay PT Unavailable Reason for Visit Reason Onset Date Comments Prior Authorization For Medications 09/03/2021 Boto x (onabotulinumtoxinA) Encounter Details Date Type Department Care Team Description 09/03/2021 Pharmacy Prior [facility] P1 Pharmacy Sakshi Mcmanus, Authorization [address] [facility] PharmD [id number] [address] [place], [place] [address] [place], [place] [phone] Social History Tobacco Use Types Packs/Day Years [...] the patient has active primary coverage through [facility] [employer] ([facility]). [facility] does NOT require prior authorization for BOTOX when it is given in the clinic/infusion center and billed on the medical claim (buy and bill). IMPORTANT - READ BELOW However, [facility] reimburses BOTOX only for select designated ICD-10/Diagnosis Codes. Based on review of the patient's chart, please (continue to) use the following COVERED diagnosis code for the visits in which the patient will receive BOTOX: - G82.50 or G82.54 Quadriplegia Update 01/27/2022 - Unable to get response from [employer]. Per 10/21/2021 note appears patient was going [...] on filedocumented in this encounter Care Teams Maintenance Parts Technician Relationship Specialty Start Date End Date Lila Clay, PT Physical Therapist Physical Therapy 04/05/[address] [place] [address] documented as of this encounter
--- OUTSIDE RECORDS SUMMARY | 2022-06-20 12:58 | XMS_ITS | Encounter Summary ---
:1955 Author Organization [facility] Address [address] [place] [address] Phone Care Team Providers Name Role Phone Lila Clay PT Unavailable Reason for Visit Prior Authorization (Routine) - Closed Specialty Diagnoses / Procedures Referred By Contact Refer red To Contact Physical Therapy / Diagnoses Quadriplegia () At high risk for skin breakdown Impaired mobility Provider, Outside Lila Clay, PHYSICAL MEDICINE AND Procedures PT TREATMENT PLAN OUTSIDE PROVIDER PT REHAB [id number] [place] [address] Phone: Fax: Referral ID Status Reason Start Date Expiration Date Visits Requ ested Visits Authorized [id number] Closed 05/05/2021 01/20/2022 12 12 Encounter Details Date Type Department Care Team Description 09/01/2021 Hospital Encounter Clinic & Specialty Lila Clay, No [facility] Trace Evidence Technician apy PT [address] [place] [address] [address] [place], [place] [phone] Social History Tobacco Use Types Packs/Day Years [...] items have been addressed. Lila Clay PT [facility] License: #[id number] Pager: [phone] Office: [phone] R UTILIZATION SUPERINTENDENT documented in this encounter Plan of Treatment Not on filedocumented as of this encounter Visit Diagnoses Not on filedocumented in this encounter Care Teams Orthotist Prosthetist Relationship Specialty Start Date End Date Lila Clay, PT Physical Therapist Physical Therapy 04/05/21 [address] [place] [address] documented as of this encounter
--- OUTSIDE RECORDS SUMMARY | 2022-06-20 12:58 | XMS_ITS | Encounter Summary ---
:1955 Author Organization [facility] Address [address] [place] [address] Phone Care Team Providers Name Role Phone Lila Clay PT Unavailable Reason for Visit Prior Authorization (Routine) - Closed Specialty Diagnoses / Procedures Referred By Contact Refer red To Contact Physical Therapy / Diagnoses Quadriplegia () At high risk for skin breakdown Impaired mobility Provider, Outside Lila Clay, PHYSICAL MEDICINE AND Procedures PT TREATMENT PLAN OUTSIDE PROVIDER PT REHAB [address] [address] Phone: Fax: Referral ID Status Reason Start Date Expiration Date Visits Requ ested Visits Authorized [id number] Closed 05/05/2021 01/20/2022 12 12 Encounter Details Date Type Department Care Team Description 06/02/2021 Hospital Encounter Clinic & Specialty Provider, Outside OUTSIDE PROVIDER [address] Chairman And Ceo apy Lila Clay, PT [address] [place] [address] Social History Tobacco Use Types Packs/Day [...] Hospitalization: None Referring Provider: MD Yamile Alves, MANAGER LPN ?? Current Precautions/Contraindications: At high risk for skin breakdown, s/p flap surgery, current pressure injuries on feet [facility] Log Grader: no Patient gave two identifiers for Check [...] additional changes as appropriate. O: [Billable Units/Time] (59367) Wheelchair Management: 60 min Transfer MWC/mat table [...] passive IR/ER WNL. Adjustments made to patient's [facility] this date: +Increased posterior seat dump by 1 +lowered footplates B by approximately 1 Pt returned to sitting in [facility] at end of [...] Clay, PT [employer] [place] License: #[id number] Pager: [phone] Office: [phone] PASTER documented in this encounter Plan of Treatment Not on filedocumented as of this encounter Visit Diagnoses Not on filedocumented in this encounter Care Teams Chefs Relationship Specialty Start Date End Date Lila Clay, PT Physical Therapist Physical Therapy 04/05/[address] [place] [address] documented as of this encounter
--- OUTSIDE RECORDS SUMMARY | 2022-06-20 12:58 | XMS_ITS | Encounter Summary ---
:1955 Author Organization [facility] Address [address] [place] [address] Phone Care Team Providers Name Role Phone [...] on filedocumented in this encounter Care Teams Sewing Demonstrator Relationship Specialty Start Date End Date Lila Clay, PT Physical Therapist Physical Therapy 04/05/21 [address] [place] [address] documented as of this encounter
--- OUTSIDE RECORDS SUMMARY | 2022-06-20 12:58 | XMS_ITS | Encounter Summary ---
:1955 Author Organization [facility] Address [address] [place] [address] Phone Care Team Providers Name Role Phone Lila Clay PT Unavailable Reason for Visit Reason Comments Referral Consult/Test/Treat (Routine) - Closed Specialty Diagnoses / Procedures Referred By Contact Refer red To Contact Physical Medicine and Diagnoses Paraplegia, unspecified paraplegia from previous in [place] 33 yrs James Nava Csc [facility] Re[facility] / PHYSICAL MD [place] [address] [place] [address] MEDICINE AND REHAB [address] [place] [phone] Fax: Referral ID Status Reason Start Date Expiration Date Visits V isits Requested Authorized [id number] Closed Created in 07/20/2021 07/20/2022 1 1 PAS Encounter Details Date Type Department Care Team Description 09/02/2021 Office Visit Clinic & Specialty Center Dariel Israel uadriplegia, C5-C7 incomplete () (Primary Dx); Physical Medicine & A, PA-C Muscle spasticity Rehabilitation Clini c [address] [place] [phone] Social History Tobacco Use [...] Comments Blood Pressure 135/74 09/02/2021 8:12 AM SURVEY RESEARCH ASSOCIATE Pulse 72 09/02/2021 8:12 AM SURVEY RESEARCH ASSOCIATE Temperature - - Respiratory Rate - - Oxygen Saturation - - Inhaled Oxygen Concentration - - Weight - - Height - - Body Mass Index - - documented in this encounter Progress Notes Dariel Israel PA-C - 09/02/2021 8:00 AM CST [facility] Physical Medicine & Rehabilitation Clinic Khanh [...] is followed by a wound clinic in [place]. He just had a wheelchair evaluation in physical therapy here at [place]. He stated that around 2 to 3 [...] 5/5 EE 5/5 5/5 WE 4/5 4/5 Hospital Receiving Clerk 3/5 3/5 Strength bilateral lower extremities 0/5 [...] service, including pre-visit review of separatelyobtained history, [id number]-el-[id number] interaction performing medically appropriate physical exam, patient counseling/education, interpretation of diagnostic results, care coordination and documentation was 46 minutes. Dictation Disclaimer: Notes are completed with voice-recognition dictation software. Errors are generally corrected in real time. Please contact me via [employer] staff message if you note any errors requiring clarification. EY RESEARCH ASSOCIATE documented in this encounter Plan of Treatment Scheduled Orders Name Type Priority Associated Diagnoses Order S chedule EMG - BOTOX EMG Routine Muscle spasticity Ordered: 0 09/02/2021 documented as of this encounter Procedures Procedure Name Priority Date/Time Associated Comments Diagnosis CARE EVERYWHERE 09/07/2021 11:04 Results for this AUTHORIZATION AM SURVEY RESEARCH ASSOCIATE procedure are in the results section. CARE EVERYWHERE 09/07/2021 11:04 Results for this AUTHORIZATION AM SURVEY RESEARCH ASSOCIATE procedure are in the results section. documented in this encounter Results CARE EVERYWHERE AUTHORIZATION (09/07/2021 11:04 AM SURVEY RESEARCH ASSOCIATE) Narrative This result has an attachment that is no t available. Him Provider SCANNED CONSENTS CARE EVERYWHERE AUTHORIZATION (09/07/2021 11:04 AM SURVEY RESEARCH ASSOCIATE) Narrative This result has an attachment that is no t available. Him Provider SCANNED CONSENTS documented in this encounter Visit Diagnoses Diagnosis Quadriplegia, C5-C7 incomplete () - Pr imary Quadriplegia, C5-C7, incomplete Muscle spasticity Spasm of muscle documented in this encounter Care Teams [employer] Solutions Sales Consultant Relationship Specialty Start Date End Date Lila Clay, PT Physical Therapist Physical Therapy 04/05/[address] [place] [address] documented as of this encounter
--- OUTSIDE RECORDS SUMMARY | 2022-06-20 12:58 | XMS_ITS | Encounter Summary ---
:1955 Author Organization [facility] Address [address] [place] [address] Phone Care Team Providers Name Role Phone Lila Clay PT Unavailable Reason for Visit Prior Authorization (Routine) - Closed Specialty Diagnoses / Procedures Referred By Contact Refer red To Contact Physical Therapy / Diagnoses Quadriplegia () At high risk for skin breakdown Impaired mobility Provider, Outside Lila Clay, PHYSICAL MEDICINE AND Procedures PT TREATMENT PLAN OUTSIDE PROVIDER PT REHAB [address] [address] Phone: Fax: Referral ID Status Reason Start Date Expiration Date Visits Requ ested Visits Authorized [id number] Closed 05/05/2021 01/20/2022 12 12 Encounter Details Date Type Department Care Team Description 06/09/2021 Hospital Encounter Clinic & Specialty Provider, Outside OUTSIDE PROVIDER [address] Rn Maternal Child apy Lila Clay, PT [address] [place] [address] Social History Tobacco Use Types Packs/Day [...] Hospitalization: None Referring Provider: MD Yamile Alves, DURALUMIN MECHANIC ?? Current Precautions/Contraindications: At high risk for skin breakdown, s/p flap surgery, current pressure injuries on feet [facility] Vacuum Cooker Operator: no Patient gave two identifiers for Check 2 for Safety Total Treatment Time: 70 Min Pain: No significant complaints during session S: Pt presents to his PT session in his MWC, independently. Also present: Matthew Ricketts/[employer]. Last 30 min of the session, patient's QRC (Raquel Gamino, RN, PHN, MA P: [phone], F: [phone]) No significant changes; still attends wound clinic for B foot injuries weekly - missed yesterday so will be seen later this week. Pt agreed that he would like to try to adjust 1-2 items at a time; assess tolerance, and then move forward with additional changes as appropriate. Noticed that additional 'dump' is 'different' but tolerable. O: [Billable Units/Time] (30860) Wheelchair Management: 70 min Pt remained in [...] *Will request a demo from [facility], as PT looked and did not [...] require a new back frame to the [facility], but would provide additional [...] to be able to transfer in/out of [facility] independently. At end of [...] date include: Increased posterior seat dump on [facility] this date and pt [...] be obtained before then? Lila Clay PT [facility] License: #[id number] Pager: [phone] Office: [phone] ICE DESK TECHNICIAN documented in this encounter Plan of Treatment Not on filedocumented as of this encounter Visit Diagnoses Not on filedocumented in this encounter Care Teams Rotary Adjuster Relationship Specialty Start Date End Date Lila Clay, PT Physical Therapist Physical Therapy 04/05/[address] [place] [address] documented as of this encounter
--- OUTSIDE RECORDS SUMMARY | 2022-06-20 12:58 | XMS_ITS | Encounter Summary ---
:1955 Author Organization [facility] Address [address] [place] [address] Phone Care Team Providers Name Role Phone Hallie Clay PT Unavailable Encounter Details Date Type Department Care Team Description 05/05/2021 Hospital Encounter Clinic & Specialty [place] [address] [place] [id number] [place] [address] Center Cop Winder apy Hallie Clay, PT [address] [address] [address] Social History Tobacco Use Types [...] Provider: Dr. [place] Mata, MD Yamile Conway, REFERRAL NURSE Current Precautions/Contraindications: At high risk for skin breakdown, s/p flap surgery, current pressure injuries on feet [facility] Cold Patcher: no DIAGNOSIS Patient Active Problem List Diagnosis [...] prefer to work is BLANQUITA Brown [employer]. The vendor is not present during today's evaluation. 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 He has utilized a manual wheelchair as his primary means of mobility since then. He has a significant pressure injury history, including on his sacral area and feet. He received his current MWC through [employer] on 10/06/20. SUBJECTIVE Patient Complaints: I just [...] Function: Randy will cont to use his [facility] and rehab accessories to [...] independently (with hand controls) while seated in [facility]) Does it fold/disassemble for [...] Flexion Elbow Extension Wrist Flexion Wrist Extension Manufacturing Systems Engineer Using BERNY hand dynamometer Lower Extremity Right MMT Left MMT WFL 0/5 0/5 Hip Flexion Hip Extension Hip Abduction Knee Flexion Knee Extension Dorsiflexion Inversion Eversion Plantar Flexion Great toe extension Normative preliminary school psychologist strength values for Berny dynamometer for clinical [...] the wheelchair/mobility device?: Yes Wheelchair Management/Training (CPT 62600): 15 min during session(s) Pressure mapping completed [...] Specific Question: Schedule with: Answer: HALLIE CLAY [[id number]] Order Specific Question: Number of Visits patient [...] conditions documented in this encounter Care Teams Horse Trainer Relationship Specialty Start Date End Date Hallie Clay, PT Physical Therapist Physical Therapy 04/05/21 [address] [place] [address] documented as of this encounter
--- OUTSIDE RECORDS SUMMARY | 2022-06-20 12:58 | XMS_ITS | Encounter Summary ---
:1955 Author Organization [facility] Address [address] [place] [address] Phone Care Team Providers Name Role Phone Provider, Outside Primary Care Provider Unavailable Encounter Details Date Type Department Care Team Description 01/02/2018 Nurse Triage Clinic & Specialty Center Farida Dueñas, graphic design intern Clinic [address] [address] [place], [place] [address] Social History Tobacco Use Types [...] filedocumented in this encounter Care Teams Manager Mobility Relationship Specialty Start Date End Date Provider, Outside PCP - General 03/13/09 10/22/18 [place] [address] documented as of this encounter
--- OUTSIDE RECORDS SUMMARY | 2022-06-20 12:58 | XMS_ITS | Encounter Summary ---
:1955 Author Organization Former[facility] Address [address] [place] [address] Phone Care Team Providers Name Role Phone Unavailable Primary Care Provider Unavailable Encounter Details Date Type Department Care Team Description 08/20/2020 Immunization [facility] Jonathan Chu MD [address] [address] COVID-19; [address] Nurse, [facility] Vaccine [address] [place] [address] Need for vaccination [place], [place] [address] Social History Tobacco Use Types [...] with No / Unsure 08/20/2020 3:15 PM INTERNAL AUDIT CONSULTANT someone who was confirmed or suspected to have Coronavirus / COVID-19? documented as of this encounter Plan of Treatment Not on filedocumented as of this encounter Visit Diagnoses Diagnosis COVID-19 Need for vaccination Need for prophylactic vaccination and in oculation against unspecified single disease documented in this encounter
--- OUTSIDE RECORDS SUMMARY | 2022-06-20 12:58 | XMS_ITS | Encounter Summary ---
:1955 Author Organization [facility] Address [address] [place] [address] Phone Care Team Providers Name Role Phone Unavailable Primary Care Provider Unavailable Reason for Visit Reason Comments Other Encounter Details Date Type Department Care Team Description 03/27/2020 Refill Clinic & Specialty Center Monty Garcia MD Other Urology Clinic [address] [place] [address] [place] [address] [phone] Social History Tobacco Use Types Packs/Day Years [...]
--- OUTSIDE RECORDS SUMMARY | 2022-06-20 12:58 | XMS_ITS | Encounter Summary ---
:1955 Author Organization [facility] Address [address] [place] [address] Phone Care Team Providers Name Role Phone [...] with No / Unsure 08/20/2020 3:15 PM TELESALES REPRESENTATIVE someone who was confirmed or suspected to have Coronavirus / COVID-19? documented as of this encounter Plan of Treatment Not on filedocumented as of this encounter Visit Diagnoses Not on filedocumented in this encounter
--- OUTSIDE RECORDS SUMMARY | 2022-06-20 12:58 | XMS_ITS | Encounter Summary ---
:1955 Author Organization [facility] Address [address] [place] [address] Phone Care Team Providers Name Role Phone Provider, Outside Primary Care Provider Unavailable Reason for Visit Reason Onset Date Comments Refill Request 12/23/2016 Encounter Details Date Type Department Care Team Description 12/23/2016 Refill [facility] Divya Caraballo RN Refill Request [address] [facility], [address] [place], [place] [address] [place] [address] Social History Tobacco Use Types Packs/Day Years [...] filedocumented in this encounter Care Teams Global Regulatory Lead Relationship Specialty Start Date End Date Provider, Outside PCP - General 03/13/09 10/22/18 [place] [address] documented as of this encounter
--- OUTSIDE RECORDS SUMMARY | 2022-06-20 12:58 | XMS_ITS | Clinical Summary ---
:1955 Author Organization [facility] Address [address] [place] [address] Phone Care Team Providers Name Role Phone Lila Clay PT Unavailable Source Comments [employer] is fully rolled out on [employer]. Last update 12/26/08.[facility] Allergies Active Allergy Reactions Severity Noted Date [...] Comments Blood Pressure 135/74 09/02/2021 8:12 AM SAWMILL RELIEF WORKER Pulse 72 09/02/2021 8:12 AM SAWMILL RELIEF WORKER Temperature 36.2 ??C (97.1 ??F) 09/15/2016 8:09 AM SAWMILL RELIEF WORKER Respiratory Rate 14 04/20/2010 1:39 PM CDT [...] Address Typ e / Group Dates [facility] [id number] 1990-Pre [phone] [address] Work Comp [employer] sent [address] [employer] [place] [address] [facility] COMPLETE [id number] 2020-Pres [address] [facility] (MEDICARE ent [id number] Managed Care ADVANTAGE) [place] [address] [id number] Workers Comp Employer 1955 % Cb ert (Home) [place] [address] [address] [place] [address] Care Teams Heading Pinner Relationship Specialty Start Date End Date Lila Clay, PT Physical Therapist Physical Therapy 04/05/21 [address] [place] [address]
--- OUTSIDE RECORDS SUMMARY | 2022-06-20 12:58 | XMS_ITS | Encounter Summary ---
:1955 Author Organization [facility] Address 1 [place] [address] Phone Care Team Providers Name Role Phone Provider, Outside Primary Care Provider Unavailable Reason for Visit Reason Onset Date Comments Refill Request 01/12/2018 Encounter Details Date Type Department Care Team Description 01/12/2018 Refill [facility] Monty Garcia MD Refill Request Urology Clinic [address] [place] [address] [address] [place], [place] [address] [phone] Social History Tobacco Use Types Packs/Day Years [...] filedocumented in this encounter Care Teams Health Actuary Relationship Specialty Start Date End Date Provider, Outside PCP - General 03/13/09 10/22/18 [place] [address] documented as of this encounter
--- OUTSIDE RECORDS SUMMARY | 2022-06-20 12:58 | XMS_ITS | Encounter Summary ---
:[address] [facility] [place] Address [address] [place] [address] Phone Care Team Providers Name Role Phone Unavailable Primary Care Provider Unavailable Encounter Details Date Type Department Care Team Description 08/18/2020 Orders Only Mira PK Viral Cl Jonathan Sierra MD COVID-19 76[address] [facility] [address] [facility] G5 [place], [place] [address] [place], [place] [phone] (Wo rk) Social History Tobacco Use Types [...] with No / Unsure 08/20/2020 3:15 PM CONTACT LENS FITTER someone who was confirmed or suspected to have Coronavirus / COVID-19? documented as of this encounter Plan of Treatment Not on filedocumented as of this encounter Visit Diagnoses Diagnosis COVID-19 documented in this encounter
--- OUTSIDE RECORDS SUMMARY | 2022-06-20 12:58 | XMS_ITS | Encounter Summary ---
:1955 Author Organization [facility] Address 1 [place] [address] Phone Care Team Providers Name Role Phone Unavailable Primary Care Provider Unavailable Reason for Visit Reason Onset Date Comments Refill Request 03/22/2019 propanthelin Encounter Details Date Type Department Care Team Description 03/22/2019 Refill Clinic & Specialty Monty Garcia MD Refill Request Center Urology Clini c 701 [facility] P5 (propanthelin) [address] [phone] (Wo rk) Social History Tobacco Use Types [...]
--- OUTSIDE RECORDS SUMMARY | 2022-06-20 12:58 | XMS_ITS | Encounter Summary ---
:1955 Author Organization [facility] Address [address] [place] [address] Phone Care Team Providers Name Role Phone Provider, Outside Primary Care Provider Unavailable Encounter Details Date Type Department Care Team Description 10/07/2016 Hospital Encounter [facility] Ultrasound Monty Garcia MD [address] [place] [address] .250 [place], [place] [phone] (Wo rk) Social History Tobacco Use Types [...] NOS documented in this encounter Care Teams Boarding Mother Relationship Specialty Start Date End Date Provider, Outside PCP - General 03/13/09 10/22/18 [place] [address] documented as of this encounter
--- OUTSIDE RECORDS SUMMARY | 2022-06-20 12:58 | XMS_ITS | Encounter Summary ---
:1955 Author Organization [facility] Address [address] [place] [address] Phone Care Team Providers Name Role Phone Unavailable Primary Care Provider Unavailable Reason for Visit Reason Onset Date Comments Refill Request 04/03/2020 Encounter Details Date Type Department Care Team Description 04/03/2020 Refill Clinic & Specialty Center Monty Garcia MD Refill Request Urology Clinic [address] [place] [address] [place] [address] [phone] Social History Tobacco Use Types Packs/Day Years [...]
--- OUTSIDE RECORDS SUMMARY | 2022-06-20 12:58 | XMS_ITS | Encounter Summary ---
:1955 Author Organization [facility] Address [address] [place] [address] Phone Care Team Providers Name Role Phone Provider, Outside Primary Care Provider Unavailable Reason for Visit Reason Onset Date Comments Medication Refill 11/11/2016 propantheline (PRO-B ANTHINE) Encounter Details Date Type Department Care Team Description 11/11/2016 Refill [facility] Selena Garcia MD Medication Refill [place] 701 [facility] P5 (propantheline [address], [address] [place], [place] (PRO-BANTHINE) ) [place], [place] [phone] (Wo rk) Social History Tobacco Use Types [...] mg oral tablet Pharmacy Name and Location: [facility] [address] [place] [phone] - [phone] - [address] [place] [address] Phone number for return call: .[phone] Did caller contact the pharmacy? yes: pharmacy [...] on filedocumented in this encounter Care Teams Submersible Pilot Relationship Specialty Start Date End Date Provider, Outside PCP - General 03/13/09 10/22/18 [place] [address] documented as of this encounter
--- OUTSIDE RECORDS SUMMARY | 2022-06-20 12:58 | XMS_ITS | Encounter Summary ---
:1955 Author Organization [facility] Address [address] [place] [address] Phone Care Team Providers Name Role Phone Unavailable Primary Care Provider Unavailable Encounter Details Date Type Department Care Team Description 09/14/2020 Immunization [facility] Viral Clinic Jonathan Chu MD [address] [phone] Need for vaccination [address] Nurse, [facility] Vaccine 701 [place] [address] (Primary Dx) [place], [place] [address] Social History Tobacco Use [...] with No / Unsure 08/20/2020 3:15 PM MECHANIC WELDER someone who was confirmed or suspected to have Coronavirus / COVID-19? documented as of this encounter Plan of Treatment Not on filedocumented as of this encounter Visit Diagnoses Diagnosis Need for vaccination - Primary Need for prophylactic vaccination and in oculation against unspecified single disease documented in this encounter
--- OUTSIDE RECORDS SUMMARY | 2022-06-20 12:58 | XMS_ITS | Encounter Summary ---
:1955 Author Organization [facility] Address [address] [place] [address] Phone Care Team Providers Name Role Phone [...] REHAB [place], [place] [id number] [place] [address] Phone: Fax: Referral ID Status Reason Start Date Expiration Date Visits Requ ested Visits Authorized [id number] Closed 05/05/2021 01/20/2022 12 12 T MAGISTRATE Reason for Visit Prior Authorization (Routine) - Closed Specialty Diagnoses / Procedures Referred By Contact Refer red To Contact Physical Therapy / Diagnoses Quadriplegia () At high risk for skin breakdown Impaired mobility Provider, Outside Hallie Clay, PHYSICAL MEDICINE AND Procedures PT TREATMENT PLAN OUTSIDE PROVIDER PT REHAB [place], [place] [phone] [place] [address] Phone: Fax: Referral ID Status Reason Start Date Expiration Date Visits Requ ested Visits Authorized [id number] Closed 05/05/2021 01/20/2022 12 12 Encounter Details Date Type Department Care Team Description 07/14/2021 Hospital Encounter Clinic & Specialty Provider, Outside [place] [address] Center Babcock Tester apHallie Hopkins, PT [address] [address] Social History Tobacco Use Types [...] Signature: Date: 07/14/2021 Date: Please return to: [facility] Physical Therapy [address] [address] RECERTIFICATION SUMMARY New Recertification period: 07/14/21 to [...] Recent Hospitalization:??None?? Referring Provider:?? MD Yamile Alves, TRAFFIC II MANAGER ?? Current Precautions/Contraindications:?At high risk for skin breakdown, s/p flap surgery, currentpressure injuries on feet [facility] Bag Making Machine Operator:?no ?? Patient gave two identifiers for Check 2 for Safety Total Treatment Time: 55 Min ?? Pain: No significant complaints during session ?? S: Pt presents to his PT session in his [facility], independently. Also present: Matthew Ricketts[employer]. 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 ?? O: [Billable Units/Time] ?? (58991) Wheelchair Management: 55 min Pressure mapping completed [...] up with B UE's for having pressure pewter fabricator placed over, completed with CGA) +Sitting on [...] Recommend removing foam sole, and placing nonskid surface/long distance billing operator bottom instead (lowest height possible) 4) [...] - thank you. Hallie Clay, PT ATP [phone] [email or web address] Printed above information for patient to bring with to his gas leak inspector helper as well as to his Ortho MD [...] stabilizer? Hallie Clay, PT ATP [place] License: #[id number] Pager: [phone] Office: [phone] ? Recertification Assessment of need for continued skilled physical therapy interventions: Patient continues to make steady progress toward short term and mcfp goals which have been updated to reflect [...] Specific Question: Schedule with: Answer: HALLIE CLAY [[id number]] Order Specific Question: Number of Visits patient [...] Specific Question: Schedule with: Answer: HALLIE CLAY [[id number]] Order Specific Question: Number of Visits patient should be scheduled for? Answer: 1 Order Specific Question: Modalities and Procedures Answer: Procedures Order Specific Question: Procedure Answer: Functional Activities Order Specific Question: Procedure Answer: Neuromuscular Re-education Order Specific Question: Procedure Answer: Self Care/Home Management/ADL Order Specific Question: Procedure Answer: Wheelchair Management and Training Hallie Clay PT ATP Date [place] License: #[id number] Pager: [phone] Office: [phone] T MAGISTRATE documented in this encounter Plan of Treatment Not on filedocumented as of this encounter Visit Diagnoses Diagnosis Quadriplegia () Quadriplegia, unspecified At high risk for skin breakdown Other specified conditions influencing h ealth status Impaired mobility Other ill-defined conditions documented in this encounter Care Teams Collections Officer Relationship Specialty Start Date End Date Hallie Clay PT Physical Therapist Physical Therapy 04/05/[address] [place] [address] documented as of this encounter
--- OUTSIDE RECORDS SUMMARY | 2022-06-20 12:58 | XMS_ITS | Encounter Summary ---
:1955 Author Organization [facility] Address [address] [place] [address] Phone Care Team Providers Name Role Phone Provider, Outside Primary Care Provider Unavailable Reason for Visit Reason Comments Follow-up NEUROGENIC BLADDER Encounter Details Date Type Department Care Team Description 09/15/[address] [facility] Urology Clinic Monty Garcia Neur ogenic bladder Yordy FALCON (Primary Dx) [address] [place] [address] [address] [place], [place] [address] [phone] Social History Tobacco Use Types Packs/Day Years [...] Comments Blood Pressure 129/74 09/15/2016 8:09 AM CIVIL MANAGER Pulse 75 09/15/2016 8:09 AM CIVIL MANAGER Temperature 36.2 ??C (97.1 ??F) 09/15/2016 8:09 AM CIVIL MANAGER Respiratory Rate - - Oxygen Saturation [...] Patient has had several admissions at [facility] for decubitus ulcers in the last year. [...] MD, 09/15/2016 9:14 AM Urology Staff Pager: [phone] L MANAGER documented in this encounter Plan of Treatment Not on filedocumented as of this encounter Visit Diagnoses Diagnosis Neurogenic bladder - Primary Neurogenic bladder, NOS documented in this encounter Care Teams Dental Hygienist Relationship Specialty Start Date End Date Provider, Outside PCP - General 03/13/09 10/22/18 [place] [address] documented as of this encounter
--- OUTSIDE RECORDS SUMMARY | 2022-06-20 12:58 | XMS_ITS | Encounter Summary ---
:1955 Author Organization [facility] Address 1 [place] [address] Phone Care Team Providers Name Role Phone Lila Clay PT Unavailable Reason for Visit Prior Authorization (Routine) - Auth Not Needed Specialty Diagnoses / Procedures Referred By Contact Refer red To Contact Physical Medicine and Diagnoses Quadriplegia, unspecified Quadriplegia, C5-C7 incomplete Muscle spasticity [M62.838] (Reminder letter sent 09/29/21 cl) Zev Alvarez MD Rehab / NEUROLOGY EMG Procedures [facility] - [facility] [address] [place] [address] [place] [address] Phone: Fax: Referral ID Status Reason Start Date Expiration Date Visits V isits Requested Authorized [id number] Auth Not 1 2 Needed Encounter Details Date Type Department Care Team Description 10/21/2021 Hospital Encounter Clinic & Specialty Zev Alvarez , Non Billable Center EMG [address] [place] [address] 4 [place], [place] [phone] (Wo rk) Social History Tobacco Use Types [...] Name: Khanh Rene : 1955 Medical Record: [id number] History of Present Illness: 66 year old [...] to his right leg on 07/08/2019 at [facility] (Administered as 100 BF, 50 SM, 50 [...] and discussed with Dr. Kim Ash, PGY-5, [facility] Brain Injury Fellow Pager# [phone] Associated attestation - Zev Alvarez MD - [...] on filedocumented in this encounter Care Teams Packing Machine Feeder Relationship Specialty Start Date End Date Lila Clay, PT Physical Therapist Physical Therapy 04/05/[address] [place] [address] documented as of this encounter
--- OUTSIDE RECORDS SUMMARY | 2022-06-20 12:58 | XMS_ITS | Encounter Summary ---
:1955 Author Organization [facility] Address [address] [place] [address] Phone Care Team Providers Name Role Phone Provider, Outside Primary Care Provider Unavailable Reason for Visit Reason Onset Date Comments Refill Request 10/06/2016 re: Macrodantin Encounter Details Date Type Department Care Team Description 10/06/2016 Telephone [facility] Urology Clinic Divya Avendano Refi ll Request (re: Yordy ASH Macrodantin) [address] [place], [place] [address] [place], [place] [phone] Social History Tobacco Use Types Packs/Day Years [...] on filedocumented in this encounter Care Teams Hris Coordinator Relationship Specialty Start Date End Date Provider, Outside PCP - General 03/13/09 10/22/18 [place] [address] documented as of this encounter
--- OUTSIDE RECORDS SUMMARY | 2022-06-20 12:58 | XMS_ITS | Encounter Summary ---
:1955 Author Organization [facility] Address [address] [place] [address] Phone Care Team Providers Name Role Phone Provider, Outside Primary Care Provider Unavailable Reason for Visit Reason Onset Date Comments Refill Request 12/27/2017 propantheline Medication Refill 01/08/2018 propantheline Encounter Details Date Type Department Care Team Description 12/27/2017 Refill Clinic & Specialty Monty Garcia MD Refill Request Center Urology Clini c 701 [facility] P5 (propantheline); [address] Medication Refill [place], [place] [phone] (propantheline) [phone] (Wo rk) Social History Tobacco Use Types [...] generic message for pt to call the [facility] and ask for a RN. [...] chart- no MITCHELL on file. Wale [place] journalists and other writers does have message to pass along, but no MITCHELL in the chart and cannot share info due to HIPPA. Charlene [place] said she understood. She requested we call Khanh and let him know the response. Block Making Machine Operator called Khanh and no answer. Left [...] Center 02/01/2018 2:00 PM Monty Garcia MD [facility] UROLOGY [facility] Special documented in this encounter Plan of Treatment Not on filedocumented as of this encounter Visit Diagnoses Not on filedocumented in this encounter Care Teams Gas Regulator Repairer Relationship Specialty Start Date End Date Provider, Outside PCP - General 03/13/09 10/22/18 [place] [address] documented as of this encounter
--- OUTSIDE RECORDS SUMMARY | 2022-06-20 12:58 | XMS_ITS | Encounter Summary ---
:1955 Author Organization [facility] Address [address] [place] [address] Phone Care Team Providers Name Role Phone Lila Clay PT Unavailable Reason for Visit Prior Authorization (Routine) - Closed Specialty Diagnoses / Procedures Referred By Contact Refer red To Contact Physical Therapy / Diagnoses Quadriplegia () At high risk for skin breakdown Impaired mobility Provider, Outside Lila Clay, PHYSICAL MEDICINE AND Procedures PT TREATMENT PLAN OUTSIDE PROVIDER PT REHAB [address] [address] Phone: Fax: Referral ID Status Reason Start Date Expiration Date Visits Requ ested Visits Authorized [id number] Closed 05/05/2021 01/20/2022 12 12 Encounter Details Date Type Department Care Team Description 08/11/2021 Hospital Encounter Clinic & Specialty Provider, [place] [address] No Show Center Class A Regional Truck Driver apy Lila Clay, PT [address] [place] [address] Social History Tobacco Use Types Packs/Day [...] request, with this therapist. Lila Clay PT [facility] License: #[id number] Pager: [phone] Office: [phone] EL MAKER documented in this encounter Plan of Treatment Not on filedocumented as of this encounter Visit Diagnoses Not on filedocumented in this encounter Care Teams Blast Furnace Supervisor Relationship Specialty Start Date End Date Lila Clay, PT Physical Therapist Physical Therapy 04/05/21 [address] [place] [address] documented as of this encounter
--- OUTSIDE RECORDS SUMMARY | 2022-06-20 12:58 | XMS_ITS | Encounter Summary ---
:1955 Author Organization [facility] Address 1 [place] [address] Phone Care Team Providers Name Role Phone Provider, Outside Primary Care Provider Unavailable Reason for Visit Reason Onset Date Comments Refill Request 09/05/2016 Encounter Details Date Type Department Care Team Description 09/05/2016 Refill [facility] Divya Caraballo RN Refill Request [address] [facility], [address] [place], [place] [address] [place] [address] Social History Tobacco Use Types Packs/Day Years [...] documented in this encounter Care Teams Assistant Teacher Relationship Specialty Start Date End Date Provider, Outside PCP - General 03/13/09 10/22/18 [place] [address] documented as of this encounter
--- OUTSIDE RECORDS SUMMARY | 2022-06-20 12:58 | XMS_ITS | Encounter Summary ---
:1955 Author Organization [facility] Address 1 [place] [address] Phone Care Team Providers Name Role Phone Provider, Outside Primary Care Provider Unavailable Reason for Visit Reason Onset Date Comments Other 2018 Encounter Details Date Type Department Care Team Description 2018 Telephone Clinic & Specialty Monty Garcia MD Appointment Center Urology Clini c 701 [facility] P5 Cancellation [address] [phone] (Wo rk) Social History Tobacco Use Types [...] filedocumented in this encounter Care Teams Application Support Consultant Relationship Specialty Start Date End Date Provider, Outside PCP - General 8/21/09 4/1/19 [place] [address] documented as of this encounter
--- OUTSIDE RECORDS SUMMARY | 2022-06-20 12:58 | XMS_ITS | Encounter Summary ---
:1955 Author Organization [facility] Address [address] [place] [address] Phone Care Team Providers Name Role Phone Provider, Outside Primary Care Provider Unavailable Reason for Visit Reason Onset Date Comments Medication Problem 01/10/2018 propantheline Encounter Details Date Type Department Care Team Description 01/10/2018 Nurse Triage Clinic & Specialty Monty Garcia, [facility] Center Urology Clini c (propantheline) [address] [place] [address] [place] [address] 4 [place], [place] [phone] [address] Social History Tobacco Use Types Packs/Day Years [...] to me for years A-upon review of [email or web address] is was found that Dr Garcia has [...] or severe? n/a Protocols used: MEDICATION QUESTION [id number] documented in this encounter Plan of Treatment Not on filedocumented as of this encounter Visit Diagnoses Not on filedocumented in this encounter Care Teams Coat Operator Relationship Specialty Start Date End Date Provider, Outside PCP - General 03/13/09 10/22/18 [place] [address] documented as of this encounter
--- OUTSIDE RECORDS SUMMARY | 2022-06-20 12:59 | XMS_ITS | Encounter Summary ---
:1955 Author Organization [facility] Address [address] [place] [address] Phone Care Team Providers Name Role Phone Provider, Outside Primary Care Provider Unavailable Reason for Visit Reason Comments Follow-up Encounter Details Date Type Department Care Team Description 12/06/2010 Office Visit [facility] [place] Med/Rehab Sameera Frances U lcer () (Primary Clinic MD Dx) [address] 701 [facility] P5.200 Mail Code P5 [place], [place] [address] [place], [place] [phone] (Wo rk) Social History Tobacco Use Types [...] site documented in this encounter Care Teams Auto Club Travel Counselor Relationship Specialty Start Date End Date Provider, Outside PCP - General 03/13/09 10/22/18 [place] [address] documented as of this encounter
--- OUTSIDE RECORDS SUMMARY | 2022-06-20 12:59 | XMS_ITS | Encounter Summary ---
:1955 Author Organization [facility] Address [address] [facility] [address] Phone Care Team Providers Name Role Phone Provider, Outside Primary Care Provider Unavailable Reason for Visit Reason Comments Follow-up Encounter Details Date Type Department Care Team Description 02/14/2011 Office Visit [facility] Phys Med/Rehab Sameera Frances D ecubitus ulcer Clinic (Primary Dx) [address] 701 [facility] P5.200 Mail Code P5 [place], [place] [address] [place], [place] [phone] (Wo rk) Social History Tobacco Use Types [...] site documented in this encounter Care Teams Independent Crop Consultant Relationship Specialty Start Date End Date Provider, Outside PCP - General 03/13/09 10/22/18 [place] [address] documented as of this encounter
--- OUTSIDE RECORDS SUMMARY | 2022-06-20 12:59 | XMS_ITS | Encounter Summary ---
:1955 Author Organization [facility] Address 1 [place] [address] Phone Care Team Providers Name Role Phone Provider, Outside Primary Care Provider Unavailable Reason for Visit Reason Comments Bladder Problem Encounter Details Date Type Department Care Team Description 01/26/2015 Office Visit [facility] [place] Monty Garcia Neur ogenic bladder Yordy FALCON (Primary Dx) [address] [facility] P5 [address] [place], [place] [phone] Social History Tobacco Use Types Packs/Day Years [...] - 01/26/2015 4:13 PM CDT [facility]Y CL[facility]IC [facility] NEW PATIENT/CONSULT VISIT Khanh Rene : 1955 [...] NOS documented in this encounter Care Teams Case Management Assistant Relationship Specialty Start Date End Date Provider, Outside PCP - General 03/13/09 10/22/18 [place] [address] documented as of this encounter
--- OUTSIDE RECORDS SUMMARY | 2022-06-20 12:59 | XMS_ITS | Encounter Summary ---
:1955 Author Organization [facility] Address [address] [place] [address] Phone Care Team Providers Name Role Phone Provider, Outside Primary Care Provider Unavailable Reason for Visit Reason Comments Other Encounter Details Date Type Department Care Team Description 02/20/2013 Telephone [facility] [place] Omar Reyes MD [address] [facility], [address] Research Only [place], [place] [address] Social History Tobacco Use Types [...] Pro-Banthine. VORB Notified [facility] pharmacy at [phone]. Telephone Encounter - Danna Alvarez RN - [...] verbal refill request for Propantheline. Please call [phone] Expects Return Call at: ------ documented in this encounter Plan of Treatment Not on filedocumented as of this encounter Visit Diagnoses Not on filedocumented in this encounter Care Teams Casino Banker Relationship Specialty Start Date End Date Provider, Outside PCP - General 03/13/09 10/22/18 [place] [address] documented as of this encounter
--- OUTSIDE RECORDS SUMMARY | 2022-06-20 12:59 | XMS_ITS | Encounter Summary ---
:1955 Author Organization [facility] Address [address] [place] [address] Phone Care Team Providers Name Role Phone Provider, Outside Primary Care Provider Unavailable Reason for Visit Reason Onset Date Comments Call Back 11/08/2010 Encounter Details Date Type Department Care Team Description 11/08/[address] [facility] Neurology Clini c Vickie Odell RN Call Back [address] [address] [address] [place], [place] [address] Social History Tobacco Use Types Packs/Day Years Used Date Smoking Tobacco: Never Smokeless Tobacco: Never Alcohol Use Standard Drinks/Week Comments Yes 3.3 (1 standard drink = 0.6 oz pure alco hol) once in while Sex Assigned at Date Recorded Not on file documented as of this encounter Miscellaneous Notes Telephone Encounter - Vickie dOell RN - 11/08/2010 2:12 PM CDT D: Patient states that was to call [employer] [phone] to order supplieslast after last visit 11-01-10. [...] Outside Provider Comment:na Expects Return Call at: [phone] documented in this encounter Plan of Treatment Not on filedocumented as of this encounter Visit Diagnoses Not on filedocumented in this encounter Care Teams Sandblast Operator Relationship Specialty Start Date End Date Provider, Outside PCP - General 03/13/09 10/22/18 [place] [address] documented as of this encounter
--- OUTSIDE RECORDS SUMMARY | 2022-06-20 12:59 | XMS_ITS | Encounter Summary ---
:1955 Author Organization [facility] Address [address] [place] [address] Phone Care Team Providers Name Role Phone Provider, Outside Primary Care Provider Unavailable Reason for Visit Reason Onset Date Comments Refill Request 07/05/2016 Encounter Details Date Type Department Care Team Description 07/05/2016 Refill [facility] Urology Clinic Divya Caraballo RN Refill Request [address], [address] [place], [place] [address] [place] [address] Social History Tobacco Use Types Packs/Day Years [...] NOS documented in this encounter Care Teams C D Stripper Relationship Specialty Start Date End Date Provider, Outside PCP - General 03/13/09 10/22/18 [place] [address] documented as of this encounter
--- OUTSIDE RECORDS SUMMARY | 2022-06-20 12:59 | XMS_ITS | Encounter Summary ---
:1955 Author Organization [facility] Address [address] [place] [address] Phone Care Team Providers Name Role Phone Provider, Outside Primary Care Provider Unavailable Reason for Visit Reason Onset Date Comments Other 02/05/2016 Encounter Details Date Type Department Care Team Description 02/05/2016 Telephone [facility] [place] [place] Selena Garcia MD plan of care [place] [address] [address] [address] [facility], [address] [place] [address] [place], [place] [phone] Social History Tobacco Use Types Packs/Day Years [...] on filedocumented in this encounter Care Teams Telecommunications Manager Relationship Specialty Start Date End Date Provider, Outside PCP - General 03/13/09 10/22/18 [place] [address] documented as of this encounter
--- OUTSIDE RECORDS SUMMARY | 2022-06-20 12:59 | XMS_ITS | Encounter Summary ---
:1955 Author Organization [facility] Address [address] [place] [address] Phone Care Team Providers Name Role Phone Provider, Outside Primary Care Provider Unavailable Reason for Referral Consult/Test/Treat (Routine) - Closed Specialty Diagnoses / Procedures Referred By Contact Refer red To Contact Physical Therapy Diagnoses Decubitus ulcer Sameera Frances MD [address] [place], [place] [address] Referral ID Status Reason Start Date Expiration Date Visits Requ ested Visits Authorized [id number] Closed 01/17/2011 01/18/2012 1 1 Reason for Visit Reason Comments Neurologic Problem Encounter Details Date Type Department Care Team Description 01/17/2011 Office Visit [facility] [place]/Rehab Sameera Frances D ecubitus ulcer Clinic (Primary Dx) [address] [place], [place] [address] [place], [place] [phone] (Wo rk) Social History Tobacco Use Types [...] site documented in this encounter Care Teams Elementary Supervisor Relationship Specialty Start Date End Date Provider, Outside PCP - General 03/13/09 10/22/18 [place] [address] documented as of this encounter
--- OUTSIDE RECORDS SUMMARY | 2022-06-20 12:59 | XMS_ITS | Encounter Summary ---
:1955 Author Organization [facility] Address [address] [place] [address] Phone Care Team Providers Name Role Phone Provider, Outside Primary Care Provider Unavailable Encounter Details Date Type Department Care Team Description 10/21/2014 Telephone [facility] [place] Omar Reyes MD [address] Research Only [place], [place] [address] Social History Tobacco Use Types [...] on filedocumented in this encounter Care Teams Management Consulting Relationship Specialty Start Date End Date Provider, Outside PCP - General 03/13/09 10/22/18 [place] [address] documented as of this encounter
--- OUTSIDE RECORDS SUMMARY | 2022-06-20 12:59 | XMS_ITS | Encounter Summary ---
:1955 Author Organization [facility] Address [address] [facility] [place] [address] Phone Care Team Providers Name Role Phone Provider, Outside Primary Care Provider Unavailable Reason for Visit Reason Comments Neurologic Problem pmr Encounter Details Date Type Department Care Team Description 11/01/2010 Office Visit [facility] [place] Med/Rehab Sameera Frances D ecubitus ulcer, Clinic MD mackey (Primary Dx) [address] [facility] [address] Mail [address] [place], [place] [address] [place], [place] [phone] (Wo rk) Social History Tobacco Use Types [...] CDT Height - - Body Mass Index 30464.15 07/31/2007 3:21 PM PEOPLESOFT DEVELOPER documented in this encounter Patient Instructions Patient [...] male with long history of a C7 [employer] B spinal cord [...] male with long history of a C7 [employer] B spinal cord [...] buttock documented in this encounter Care Teams Art Historian Relationship Specialty Start Date End Date Provider, Outside PCP - General 03/13/09 10/22/18 [place] [address] documented as of this encounter
--- OUTSIDE RECORDS SUMMARY | 2022-06-20 12:59 | XMS_ITS | Encounter Summary ---
:1955 Author Organization [facility] Address [address] [place] [address] Phone Care Team Providers Name Role Phone Provider, Outside Primary Care Provider Unavailable Reason for Visit Reason Comments Other Encounter Details Date Type Department Care Team Description 01/17/2012 Telephone [facility] [place] Omar Reyes MD [address] [facility], [address] Research Only [place], [place] [address] Social History Tobacco Use Types [...] Outside Provider Comment: Expects Return Call at: [phone] documented in this encounter Plan of Treatment Not on filedocumented as of this encounter Visit Diagnoses Not on filedocumented in this encounter Care Teams Flight Steward Relationship Specialty Start Date End Date Provider, Outside PCP - General 03/13/09 10/22/18 [place] [address] documented as of this encounter
--- OUTSIDE RECORDS SUMMARY | 2022-06-20 12:59 | XMS_ITS | Encounter Summary ---
:1955 Author Organization [facility]Note 3[facility] Address [address] [place] [address] Phone Care Team Providers Name Role Phone Provider, Outside Primary Care Provider Unavailable Reason for Visit Reason Onset Date Comments Refill Request 09/05/2013 macrodantin Encounter Details Date Type Department Care Team Description 09/05/2013 Refill [facility] Urology Clinic Omar Savage MD Refill Request [facility] Only (macrodantin) [address], [address] [place], [place] [address] Social History Tobacco Use Types [...] Savage, med send to to co sign. K ENGINE ASSEMBLER documented in this encounter Plan of Treatment Not on filedocumented as of this encounter Visit Diagnoses Diagnosis Neurogenic bladder - Primary Neurogenic bladder, NOS documented in this encounter Care Teams Special Education Professional Relationship Specialty Start Date End Date Provider, Outside PCP - General 03/13/09 10/22/18 [place] [address] documented as of this encounter
--- OUTSIDE RECORDS SUMMARY | 2022-06-20 12:59 | XMS_ITS | Encounter Summary ---
:1955 Author Organization [facility] Address [address] [place], [place] [address], [place] [address] Phone Care Team Providers Name Role Phone Provider, Outside Primary Care Provider Unavailable Encounter Details Date Type Department Care Team Description 10/01/2010 Orders Only [facility] Omar Savage, Neurogenic bladder [address], [address] (Primary Dx) [place], [place] [address] Research Only [phone] Social History Tobacco Use Types Packs/Day Years [...] documented in this encounter Care Teams Signal Technician Relationship Specialty Start Date End Date Provider, Outside PCP - General 03/13/09 10/22/18 [place] [address] documented as of this encounter
--- OUTSIDE RECORDS SUMMARY | 2022-06-20 12:59 | XMS_ITS | Encounter Summary ---
:1955 Author Organization [facility] Address [address] [place] [address] Phone Care Team Providers Name Role Phone Provider, Outside Primary Care Provider Unavailable Reason for Visit Reason Onset Date Comments Refill Request 10/22/2014 Encounter Details Date Type Department Care Team Description 10/22/2014 Refill [facility] U[facility] Tree Vaughan, Refill Request [address] [facility] [facility], [address] [place], [place] [address] [address] [address] [place], [place] [address] (Wo rk) Social History Tobacco Use Types [...] NOS documented in this encounter Care Teams As400 Operator Relationship Specialty Start Date End Date Provider, Outside PCP - General 03/13/09 10/22/18 [place] [address] documented as of this encounter
--- OUTSIDE RECORDS SUMMARY | 2022-06-20 12:59 | XMS_ITS | Encounter Summary ---
:1955 Author Organization [facility] Address [address] [place] [address] Phone Care Team Providers Name Role Phone Provider, Outside Primary Care Provider Unavailable Encounter Details Date Type Department Care Team Description 02/05/2016 Orders Only [facility] [place] Monty Garcia, Neur ogenic bladder Yordy FALCON (Primary Dx) [address] [facility] [address] [place], [place] [phone] Social History Tobacco Use Types Packs/Day Years [...] NOS documented in this encounter Care Teams Cupola Patcher Helper Relationship Specialty Start Date End Date Provider, Outside PCP - General 03/13/09 10/22/18 [place] [address] documented as of this encounter
--- OUTSIDE RECORDS SUMMARY | 2022-06-20 12:59 | XMS_ITS | Encounter Summary ---
:1955 Author Organization [facility] Address [address] [place], [place] [address] [place] [address] Phone Care Team Providers Name Role Phone Provider, Outside Primary Care Provider Unavailable Reason for Visit Reason Comments Follow-up Encounter Details Date Type Department Care Team Description 06/06/2013 Office Visit [facility] Urology Clinic Omar Savage, Neurog enic bladder Yordy FALCON (Primary Dx) [address], [address] Research Only [address] [place], [place] [address] Social History Tobacco Use Types [...] Comments Blood Pressure 88/58 06/06/2013 11:33 AM ART MANAGER Pulse 79 06/06/2013 11:33 AM ART MANAGER Temperature 36.8 ??C (98.2 ??F) 06/06/2013 11:33 AM ART MANAGER Respiratory Rate - - Oxygen Saturation - - Inhaled Oxygen Concentration - - Weight - - Height - - Body Mass Index - - documented in this encounter Patient Instructions Patient InstructionsOmar Savage MD - 06/06/2013 11:42 AM CST [facility] result forwarded to us MANAGER documented in this encounter Progress Notes Omar Savage MD - 06/08/2013 8:[address] [facility] [address], [address] [place] [address] (fax) [facility]#: [id number] PATIENT: MICHEAL FLETCHER : 1955 DATE: 06/06/2013 [...] MD Staff Physician Surgery Service Received in Receivable Clerk: 06/08/2013 05:34 M: 06/08/2013 08:17 filiberto STEWART/filiberto Voice ID: [id number] Document ID: [id number] MANAGER Omar Savage MD - 06/08/2013 5:32 AM CST This office note has been dictated. MANAGER documented in this encounter Plan of Treatment Not on filedocumented as of this encounter Visit Diagnoses Diagnosis Neurogenic bladder - Primary Neurogenic bladder, NOS documented in this encounter Care Teams Rn Palliative Relationship Specialty Start Date End Date Provider, Outside PCP - General 03/13/09 10/22/18 [place] [address] documented as of this encounter
--- OUTSIDE RECORDS SUMMARY | 2022-06-20 12:59 | XMS_ITS | Encounter Summary ---
:1955 Author Organization [facility] Address [address] [place] [address] Phone Care Team Providers Name Role Phone Provider, Outside Primary Care Provider Unavailable Reason for Visit Reason Comments Other Encounter Details Date Type Department Care Team Description 02/05/2016 Refill [facility] Monty Morales MD Other [address] [facility], [address] [address] [place] [address] [phone] (Wo rk) Social History Tobacco Use Types [...] on filedocumented in this encounter Care Teams Property Specialist Relationship Specialty Start Date End Date Provider, Outside PCP - General 03/13/09 10/22/18 [place] [address] documented as of this encounter
--- OUTSIDE RECORDS SUMMARY | 2022-06-20 12:59 | XMS_ITS | Encounter Summary ---
:[address] [facility] Address [address] [place] [address] Phone Care Team Providers Name Role Phone Provider, Outside Primary Care Provider Unavailable Reason for Visit Reason Comments Other Encounter Details Date Type Department Care Team Description 05/22/2016 Refill [facility] U[facility] Clinic Monty Morales MD Other [address] [facility] [address] [place] [address] [phone] (Wo rk) Social History Tobacco Use Types [...] received in Urology Clinic from the pt's [facility], for propantheline and nitrofurantoin. [...] NOS documented in this encounter Care Teams Credit Rating Inspector Relationship Specialty Start Date End Date Provider, Outside PCP - General 03/13/09 10/22/18 [place] [address] documented as of this encounter
--- OUTSIDE RECORDS SUMMARY | 2022-06-20 12:59 | XMS_ITS | Encounter Summary ---
:1955 Author Organization [facility] Address [address] [place] [address] Phone Care Team Providers Name Role Phone Provider, Outside Primary Care Provider Unavailable Reason for Visit Reason Comments Follow-up Encounter Details Date Type Department Care Team Description 09/03/2012 Office Visit [facility] Pooja Krueger MD [address] [facility] [address] [place], [place] [id number] Neurogenic bladder Rogers Omar Savage MD Research Only (Primary Dx) [address], [address] [place], [place] [address] Social History Tobacco Use Types [...] Comments Blood Pressure 112/64 09/03/2012 1:52 PM SHIP FITTER Pulse 68 09/03/2012 1:52 PM SHIP FITTER Temperature - - Respiratory Rate - - Oxygen Saturation - - Inhaled Oxygen Concentration - - Weight - - Height - - Body Mass Index - - documented in this encounter Progress Notes Omar Savage MD - 09/04/2012 8:32 PM CST [facility] [address] [facility], [address] [place] [address] (fax) [facility]#: [id number] PATIENT: MICHEAL RENE : 1955 DATE: 09/03/2012 [...] MD Staff Physician Surgery Service Received in Commercial Airplane Pilot: 09/04/2012 12:20 M: 09/04/2012 20:32 [facility]/ Voice ID: [id number] Document ID: [id number] FITTER Omar Savage MD - 09/04/2012 12:19 PM CST This office note has been dictated. FITTER documented in this encounter Plan of Treatment Not on filedocumented as of this encounter Procedures Procedure Name Priority Date/Time Associated Diagnosis Comme nts URINE CULTURE Routine 09/03/2012 2:22 PM Neurogenic bladder Re sults for this SHIP FITTER procedure are i n the results section. URINALYSIS,TOTAL Routine 09/03/2012 2:22 PM Neurogenic bladder Results for this SHIP FITTER procedure are i n the results section. documented in this encounter Results URINE CULTURE (09/03/2012 2:22 PM SHIP FITTER) [facility] Method Time Signature Urine Cult [facility] ? PROCEDURE: MB Urine Culture ?SOURCE: Urine Midstream ?COLLECTED: 09/03/2012 14:22 ? BODY SITE: ?FREE TEXT SOURCE: ?STARTED: 09/03/2012 15:35 ? FINAL REPORT Final Report Verified:09/05/2012 13:06 50,000 - 100,000 organisms/ml Mixed gram positive arthur. No further work-up. Specimen Anatomical Collection Method Collection Time Receive d Time (Source) Location / / Volume Laterality Urine Midstream. 09/03/2012 2:22 PM 09/03 3:34 (Urine) SHIP FITTER PM SHIP FITTER Omar Savage MD LAB MICROBIOLOGY Performing Organization Address City/State/ZIP Code Phon e Number [facility] [place] [address] (ABNORMAL) URINALYSIS, TOTAL (09/03/2012 2:22 PM SHIP FITTER) athologist Signature Color YELLOW YELLOW [facility] Appearance CLEAR CLEAR [facility] Urine Glucose NEGATIVE NEGATIVE [facility] Bili UA NEGATIVE NEGATIVE [facility] Comment: Confirmatory test not available . Ketones NEGATIVE NEGATIVE [facility] Specific [place] 1.016 1.003 - 1.030 [facility] Blood Ur NEGATIVE Neg-Trace [facility] PH Urine 6.5 5.0 - 7.0 [facility] Protein Ur NEGATIVE Neg-Trace [facility] Urobilinogen 1.0 0.2 - 1.0 EU/dL [facility] Nitrite Ur NEGATIVE NEGATIVE [facility] Leuk Est SMALL (A) Neg-Trace [facility] WBC Ur 6-20 (A) 0 - 5 perHPF [facility] RBC Ur 0-5 0 - 5 perHPF [facility] SQ EPITH 2+ 1+ [facility] Specimen Anatomical Collection Method Collection Time Receive d Time (Source) Location / / Volume Laterality Urine 09/03/2012 2:22 PM 3 2:51 SHIP FITTER PM SHIP FITTER Omar Savage MD LABORATORY Performing Organization Address City/State/ZIP Code Phon e Number [facility] [place] [address] documented in this encounter Visit Diagnoses Diagnosis Neurogenic bladder - Primary Neurogenic bladder, NOS documented in this encounter Care Teams Rate Engineer Relationship Specialty Start Date End Date Provider, Outside PCP - General 03/13/09 10/22/18 [place] [address] documented as of this encounter
--- OUTSIDE RECORDS SUMMARY | 2022-06-20 12:59 | XMS_ITS | Encounter Summary ---
:1955 Author Organization [facility] Address [address] [place] [address] Phone Care Team Providers Name Role Phone Provider, Outside Primary Care Provider Unavailable Encounter Details Date Type Department Care Team Description 09/07/2012 Letters(Tab) [facility] Urology Clinic Omar Reyes MD [address] [place] [address], [address] Research Only [place], [place] [address] Social History Tobacco Use Types Packs/Day Years Used Date Smoking Tobacco: Former Cigarettes Cigars Smokeless Tobacco: Never Alcohol Use Standard Drinks/Week Comments Yes 3.3 (1 standard drink = 0.6 oz pure alco hol) once in while Sex Assigned at Date Recorded Not on file documented as of this encounter Progress Notes Omar Savage MD - 09/07/2012 7:45 AM CST [facility] [address] [place], [place] [address] September 07, 2012 TO: Micheal Fletcher [id number] [address] [address] RE:MICHEAL FLETCHER MR#:[id number] :1955 Dear Mr. Fletcher: From your recent Urology Clinic visit, your urine culture grew only mixed gram-positive organisms, which are not considered an infection. Please feel free to contact me for questions. Best wishes. Looking forward to seeing you at your next scheduled visit. Sincerely, Omar Savage MD Staff Physician Surgery Service Received in Pen Rider: 09/07/2012 07:32 M: 09/07/2012 07:45 cn CS/cn Voice ID: [id number] Document ID: [id number] cc:MICHEAL FLETCHER [id number] [place] [address] STOCK AGENT documented in this encounter Plan of Treatment Not on filedocumented as of this encounter Visit Diagnoses Not on filedocumented in this encounter Care Teams Endoscope Technician Relationship Specialty Start Date End Date Provider, Outside PCP - General 03/13/09 10/22/18 [place] [address] documented as of this encounter
--- OUTSIDE RECORDS SUMMARY | 2022-06-20 12:59 | XMS_ITS | Encounter Summary ---
:1955 Author Organization [facility] Address [address] [place] [address] Phone Care Team Providers Name Role Phone Provider, Outside Primary Care Provider Unavailable Encounter Details Date Type Department Care Team Description 11/15/2010 Office Visit [facility] Phys Med/Rehab Sameera Frances D ecubitus ulcer Clinic (Primary Dx) [address] [facility] [address] Mail Code [address] [place], [place] [address] [place], [place] [phone] (Wo rk) Social History Tobacco Use Types [...] Frances MD - 11/16/2010 10:42 [place] [address] MEDREC#: [id number] PATIENT: MICHEAL RENE : 1955 DATE: 11/15/2010 [...] Physical Medicine and Rehabilitation Service Received in Nurse Informatics Educator: 11/15/2010 12:55 M: 11/16/2010 02:37 bj CLR/bj Voice ID: [id number] Document ID: [id number] cc:[place] [address] Sameera Frances MD - 11/15/2010 12:44 PM CDT See dictation Sameera Frances MD, 11/15/2010 12:44 PM documented in this encounter Plan of Treatment Not on filedocumented as of this encounter Visit Diagnoses Diagnosis Decubitus ulcer - Primary Pressure ulcer, unspecified site documented in this encounter Care Teams Division Chief Relationship Specialty Start Date End Date Provider, Outside PCP - General 03/13/09 10/22/18 [place] [address] documented as of this encounter
--- OUTSIDE RECORDS SUMMARY | 2022-06-20 12:59 | XMS_ITS | Encounter Summary ---
:1955 Author Organization [facility] Address [address] [place] [address] Phone Care Team Providers Name Role Phone Provider, Outside Primary Care Provider Unavailable Encounter Details Date Type Department Care Team Description 10/19/2010 Refill HFA Urology Omar Savage MD [address] [facility], [address] Research Only [place], [place] [address] Social History Tobacco Use Types [...] Insurance: PCP: Outside Provider Comment: Please call [facility] pharmacy regarding getting an alternative for his medication Propantheline. Please call Ange Valdivia Return Call at: [phone] documented in this encounter Plan of Treatment Not on filedocumented as of this encounter Visit Diagnoses Diagnosis Neurogenic bladder - Primary Neurogenic bladder, NOS documented in this encounter Care Teams Supply Chain Technician Relationship Specialty Start Date End Date Provider, Outside PCP - General 03/13/09 10/22/18 [place] [address] documented as of this encounter
--- OUTSIDE RECORDS SUMMARY | 2022-06-20 12:59 | XMS_ITS | Encounter Summary ---
:1955 Author Organization [facility] Address [address] [facility] [place] [address] Phone Care Team Providers Name Role Phone Provider, Outside Primary Care Provider Unavailable Reason for Visit Reason Comments Neurologic Problem pmr Encounter Details Date Type Department Care Team Description 12/27/2010 Office Visit [facility] Phys Med/Rehab Abhinav Chavez MD NEED ADDRESS Ulcer () (Primary Clinic Sameera Frances MD [address] Mail Code [address] [place] [address] Dx) [address] [place], [place] [address] Social History Tobacco Use Types [...] site documented in this encounter Care Teams Visual Merchandiser Relationship Specialty Start Date End Date Provider, Outside PCP - General 03/13/09 10/22/18 [place] [address] documented as of this encounter
--- OUTSIDE RECORDS SUMMARY | 2022-06-20 12:59 | XMS_ITS | Encounter Summary ---
:1955 Author Organization [facility] Address [address] [place] [address] Phone Care Team Providers Name Role Phone Provider, Outside Primary Care Provider Unavailable Reason for Visit Reason Onset Date Comments Refill Request 12/17/2013 Propantheline Encounter Details Date Type Department Care Team Description 12/17/2013 Refill [facility] Urology Clinic Omar Savage MD Refill Request [facility] (Propantheline) [address] [facility], [address] [place], [place] [address] Social History Tobacco Use Types [...] filedocumented in this encounter Care Teams Machine Stoppage Frequency Checker Relationship Specialty Start Date End Date Provider, Outside PCP - General 03/13/09 10/22/18 [place] [address] documented as of this encounter
--- OUTSIDE RECORDS SUMMARY | 2022-06-20 13:00 | XMS_ITS | Encounter Summary ---
:1955 Author Organization [facility] Address [address] [place] [address] Phone Care Team Providers Name Role Phone Provider, Outside Primary Care Provider Unavailable Reason for Visit Reason Comments Follow-up [address] [facility] Dr Yvrose Mukherjee PM&R Clinic Dx C7 Spinal Cord Injury Encounter Details Date Type Department Care Team Description 03/13/2009 Office Visit HFA Neuromuscular Sameera Frances Don plegia () Clinic MD Valery (Primary Dx) [address], [address] [place] [address] Mail [address] [place], [place] [address] [place], [place] [phone] Social History Tobacco Use Types Packs/Day [...] visit with Dr Frances A PM[facility]R Clinic ([phone]) Rx/orders given to Micheal by Dr Frances for Wheelchair lumbar support and wheelchair repairs, bilateral arm rests, replace sling back Blanca Ziegler RN documented in this encounter Progress Notes Sameera Frances MD - 03/26/2009 10:04 AM CDT [facility] [address], [address] [place] [address] (fax) [facility] [id number] PATIENT: MICHEAL FLETCHER : 1955 DATE: 03/13/2009 NEUROMUSCULAR PHYSICAL MEDICINE NOTE HISTORY OF PRESENT ILLNESS: Micheal Fletcher is a 54-year-old gentleman with a C7 [place] Spinal Injury Association (AUDREY) B spinal cord [...] that eventually led to pacemaker placement at [facility]. He said that his angiogram did [...] discontinues that activity. He is using a Sedimapie wheelchair with a Joby cushion. It is [...] a slow healing coccyx ulcer at the [facility]. We have discussed whether he should go [...] that complication. Sameera Frances MD Received in Burrer Hand: 03/20/2009 12:28:50 (M: 03/24/2009 03:22:10 golden) HOMA/jlb Voice ID: [id number] Document ID: [id number] cc: Abida Pulliam DO, [facility], [address] [place] [address] Sameera Frances MD - 03/19/2009 6:44 PM CDT See dictation. documented in this encounter Nursing Notes 03/13/2009 8:00 AM CDT >> Blanca Ziegler RN MonMar 13, 2009 8:24 AM 19 months follow up visit with Dr Frances in Monday [facility] PM[facility]R Clinic. DX of C7 Spinal Cord Injury, Quadriplegia, Neurogenic Bladder. B/P 87/60 pulse 105, states runs lower blood pressure. Self caths PRN during the day. Blanca Ziegler RN documented in this encounter Plan of Treatment Not on filedocumented as of this encounter Visit Diagnoses Diagnosis Quadriplegia () - Primary Quadriplegia, unspecified documented in this encounter Care Teams Civil Engineering Design Draftsperson Relationship Specialty Start Date End Date Provider, Outside PCP - General 03/13/09 10/22/18 [place] [address] documented as of this encounter
--- OUTSIDE RECORDS SUMMARY | 2022-06-20 13:00 | XMS_ITS | Encounter Summary ---
:1955 Author Organization [facility] Address [address] [place] [address] Phone Care Team Providers Name Role Phone Provider, Outside Primary Care Provider Unavailable Encounter Details Date Type Department Care Team Description 09/13/2010 Notes/Trans HFA ALS Clinic Sameera Frances MD [address] [facility] Professional Mail Code [address] [address] [place] [address] [phone] Social History Tobacco Use Types Packs/Day Years Used Date Smoking Tobacco: Never Alcohol Use Standard Drinks/Week Comments Yes 3.3 (1 standard drink = 0.6 oz pure alco hol) Sex Assigned at Date Recorded Not on file documented as of this encounter Progress Notes Sameera Frances MD - 09/16/2010 12:35 [place] [address] [facility]#: [id number] PATIENT: MICHEAL RENE : 1955 DATE: 09/13/2010 [...] Physical Medicine and Rehabilitation Service Received in It Technical Architect: 09/13/2010 15:26 M: 09/14/2010 09:05 [facility] HOMA/srikanth Voice ID: [id number] Document ID: [id number] CTOR OF ARCHIVES documented in this encounter Plan of Treatment Not on filedocumented as of this encounter Visit Diagnoses Not on filedocumented in this encounter Care Teams Outreach Worker Relationship Specialty Start Date End Date Provider, Outside PCP - General 03/13/09 10/22/18 [place] [address] documented as of this encounter
--- OUTSIDE RECORDS SUMMARY | 2022-06-20 13:00 | XMS_ITS | Encounter Summary ---
:1955 Author Organization [facility] Address [address] [place] [address] Phone Care Team Providers Name Role Phone Provider, Outside Primary Care Provider Unavailable Reason for Visit Reason Onset Date Comments Refill Request 04/30/2010 Encounter Details Date Type Department Care Team Description 04/30/2010 Refill HFA Urology Omar Savage MD Refill Request [address] [facility], [address] Research Only [place], [place] [address] Social History Tobacco Use Types [...] NOS documented in this encounter Care Teams Industrial Court Magistrate Relationship Specialty Start Date End Date Provider, Outside PCP - General 03/13/09 10/22/18 [place] [address] documented as of this encounter
--- OUTSIDE RECORDS SUMMARY | 2022-06-20 13:00 | XMS_ITS | Encounter Summary ---
:1955 Author Organization [facility] Address [address] [place] [address] Phone Care Team Providers Name Role Phone Unavailable Primary Care Provider Unavailable Reason for Visit Reason Comments Follow-up Encounter Details Date Type Department Care Team Description 07/31/2007 Office Visit [facility] Phys Med/Rehab Sameera Frances Q uadriplegia (); Clinic Neurogenic Bowel; [address] [facility] [address] Mail [address] [place], [place] [address] [place], [place] [phone] (Wo rk) Social History Tobacco Use Types Packs/Day Years Used Date Smoking Tobacco: Never Alcohol Use Standard Drinks/Week Comments Yes 3.3 (1 standard drink = 0.6 oz pure alco hol) Sex Assigned at Date Recorded Not on file documented as of this encounter Last Filed Vital Signs Vital Sign Reading Time Taken Comments Blood Pressure 91/64 07/31/2007 3:21 PM NEUROLOGICAL PHYSIOTHERAPIST Pulse 81 07/31/2007 3:21 PM NEUROLOGICAL PHYSIOTHERAPIST Temperature - - Respiratory Rate - - Oxygen Saturation - - Inhaled Oxygen Concentration - - Weight - - Height 6 cm (2.36) 07/31/2007 3:21 PM NEUROLOGICAL PHYSIOTHERAPIST Body Mass Index - - documented in this encounter Progress Notes Sameera Frances MD - 08/15/2007 11:05 [place] [address] MEDREC#: [id number] PATIENT: MICHEAL RENE : 1955 DATE: 07/31/2007 PHYSICAL MEDICINE AND REHABILITATION NEUROLOGY CLINIC ADDENDUM: Again, under recommendations, I did talk to him that now he is 49 that he really should have an mechanic assistant who can coordinate his prophylactic care while he ages, in particular heart disease and prostate concerns. He is not interested and would just prefer to treat things as they come up, and declined my offers to arrange him with a Primary Care physician. Sameera Frances MD Staff Physician Physical Medicine and Rehabilitation Service Received in Gas Analyst: 08/02/2007 15:01:18 (M: 08/06/2007 11:31:55/dd:st) CLR/dd:st Voice ID: [id number] Document ID: [id number] cc: OLOGICAL PHYSIOTHERAPIST Sameera Frances MD - 08/15/2007 11:05 [place] [address] [facility]#: [id number] PATIENT: MICHEAL RENE : 1955 DATE: 07/31/2007 [...] father and a grandfather. He lives in [place] and just recently he has started to [...] He has just received a new manual Babelgumie wheelchair with a J-cushion and he is [...] he likes because of stability. ASSESSMENT: C7 [place] Spinal Injury Association (AUDREY) A chronic spinal [...] Physical Medicine and Rehabilitation Service Received in Gas Analyst: 08/02/2007 14:58:39 (M: 08/06/2007 11:12:53/dd:st) CLR/dd:st Voice ID: [id number] Document ID: [id number] cc: OLOGICAL PHYSIOTHERAPIST Sameera Frances MD - 08/02/2007 3:01 PM CST HPI ROS Physical Exam See my dictation for today. OLOGICAL PHYSIOTHERAPIST documented in this encounter Plan of Treatment Not on filedocumented as of this encounter Visit Diagnoses Diagnosis Quadriplegia () Quadriplegia, unspecified Neurogenic bowel Spastic Abnormal involuntary movements documented in this encounter
--- OUTSIDE RECORDS SUMMARY | 2022-06-20 13:00 | XMS_ITS | Encounter Summary ---
:1955 Author Organization [facility] Address [address] [place] [address] Phone Care Team Providers Name Role Phone Unavailable Primary Care Provider Unavailable Encounter Details Date Type Department Care Team Description 10/22/2007 Abstract HFA Multispecialty Abstract, Provider [address], [address] [place], [place] [address] Social History Tobacco Use Types [...]
--- OUTSIDE RECORDS SUMMARY | 2022-06-20 13:00 | XMS_ITS | Encounter Summary ---
:1955 Author Organization [facility] Address [address] [place] [address] Phone Care Team Providers Name Role Phone Pcp, No Primary Care Provider Unavailable Reason for Visit Reason Onset Date Comments Durable Medical Equipment 02/17/2009 Question about reordering equipment Check/Request Encounter Details Date Type Department Care Team Description 02/17/2009 Telephone HFA Physical Medicin e Reece Ziegler, Durable Medical [address] [facility] RN Equipment Check/Request M50 Multispecialty (Question about [place], [place] [address] Clinic reordering equipment) [phone] [place] [address] Social History Tobacco Use Types Packs/Day Years [...] refill of dourdrem?? Spelling? Pharmacy # is [phone] Pt. Name: Khanh Rene : 1955 (home) Insurance: PCP: No PCP Comment: Expects Return Call at: [phone] or cell [phone] Monday02/17/09 Copy of this phone message given to Dr Frances and she will call patient to check on equipment order needed. Reece Ziegler RN documented in this encounter Plan of Treatment Not on filedocumented as of this encounter Visit Diagnoses Not on filedocumented in this encounter Care Teams Crisis Specialist Relationship Specialty Start Date End Date Pcp, No PCP - General 01/24/08 03/12/09 [facility] [place] [address] documented as of this encounter
--- OUTSIDE RECORDS SUMMARY | 2022-06-20 13:00 | XMS_ITS | Encounter Summary ---
:1955 Author Organization [facility] Address [address] [place] [place] [address] Phone Care Team Providers Name Role Phone Provider, Outside Primary Care Provider Unavailable Encounter Details Date Type Department Care Team Description 09/17/2010 Hospital Encounter [facility] Arnold Vora [address]én[address] MD [place], [place] [address] [address] [facility] [phone] [place], [place] [id number] Social History Tobacco Use Types Packs/Day Years [...] () Results for this LAT HIP AM PUBLIC HOUSING INTERVIEWER procedure are i n the results section. documented in this encounter Results (ABNORMAL) XR PELVIS WITH BOTH LAT HIP (09/17/2010 10:28 AM PUBLIC HOUSING INTERVIEWER) Anatomical Region Laterality Modality Pelvis Computed Radiography Specimen (Source) Anatomical Collection Method Collection Time Re ceived Time Location / / Volume Laterality 09/17/2010 10:28 AM PUBLIC HOUSING INTERVIEWER Impressions 09/17/2010 10:35 AM PUBLIC HOUSING INTERVIEWER Impression: Severe osteoarthritis involving both hips with postsurgical fixation of a left hip fracture. There is no cortical irregularity to suggest osteomyelitis. This however lucency surrounding a fe moral IM nail. Three-phase bone scan may be beneficial to assess for infection surrounding the nail if clinically indicated. Reading Radiologist: Khanh Brunson Narrative 09/17/2010 10:35 AM PUBLIC HOUSING INTERVIEWER History: Rule out osteo. Comparison: None. Findings [...] unspecified documented in this encounter Care Teams Factory Machine Computer Operator Relationship Specialty Start Date End Date Provider, Outside PCP - General 03/13/09 10/22/18 [place] [address] documented as of this encounter
--- OUTSIDE RECORDS SUMMARY | 2022-06-20 13:00 | XMS_ITS | Encounter Summary ---
:1955 Author Organization [facility] Address [address] [place] [address] Phone Care Team Providers Name Role Phone Provider, Outside Primary Care Provider Unavailable Reason for Visit Reason Onset Date Comments Supplies 09/17/2010 Encounter Details Date Type Department Care Team Description 09/17/2010 Telephone [facility] Surgery Clinic Alka Jade RN Supplies [address] [place] [address] [place], [place] [address] Social History Tobacco Use Types [...] for supply list to be faxed to [facility] Shwetha Martin @ [phone]. Pt was seen today by Dr Tavarez and wet to dry dressing was ordered. Pt has a f/u appt scheduled on 09/24/[address] Tavarez. ET WORKER Telephone Encounter - Alka Jade RN [...] Provider Comment: Expects Return Call at: pt [phone] ET WORKER documented in this encounter Plan of Treatment Not on filedocumented as of this encounter Visit Diagnoses Not on filedocumented in this encounter Care Teams Scarf And Anneal Operator Relationship Specialty Start Date End Date Provider, Outside PCP - General 03/13/09 10/22/18 [place] [address] documented as of this encounter
--- OUTSIDE RECORDS SUMMARY | 2022-06-20 13:00 | XMS_ITS | Encounter Summary ---
:1955 Author Organization [facility] Address [address] [place], [place] [address]. [place] [address] Phone Care Team Providers Name Role Phone Provider, Outside Primary Care Provider Unavailable Encounter Details Date Type Department Care Team Description 05/13/2010 Hospital Encounter [facility] Ultrasound Omar Savage MD [address] Research Only [address] [place], [place] [address] Social History Tobacco Use Types [...] NOS documented in this encounter Care Teams Impregnating Tank Operator Relationship Specialty Start Date End Date Provider, Outside PCP - General 03/13/09 10/22/18 [place] [address] documented as of this encounter
--- OUTSIDE RECORDS SUMMARY | 2022-06-20 13:00 | XMS_ITS | Encounter Summary ---
:1955 Author Organization [facility] Address [address] [place] [address] Phone Care Team Providers Name Role Phone Pcp, No Primary Care Provider Unavailable Encounter Details Date Type Department Care Team Description 01/29/2008 Letters(Tab) [facility] Urology Clinic Omar Savage MD [facility] [address] [place] [address] [address] [place], [place] [address] Social History Tobacco Use Types Packs/Day Years Used Date Smoking Tobacco: Never Alcohol Use Standard Drinks/Week Comments Yes 3.3 (1 standard drink = 0.6 oz pure alco hol) Sex Assigned at Date Recorded Not on file documented as of this encounter Progress Notes Omar Savage MD - 01/30/2008 7:23 AM CDT [facility] [address] [place] [address] 01/29/2008 TO: Micheal Rene [address] [place] [address] RE: MICHEAL RENE MR#: [id number] Dear Mr. Rene: From your recent Urology Clinic visit, your laboratory values remain stable. Your serum creatinine remains low because of your low body mass. It is 0.29. Your prostate-specific antigen blood test is 2.38, with normal up to 4. We await your return visit in one year. Best wishes. Sincerely, Omar Savage MD Received in Dramatic Coach: 01/29/2008 16:28:05 (M: 01/30/2008 02:45:25 jlb) CS/golden Voice ID: [id number] Document ID: [id number] cc: Micheal Rene documented in this encounter Plan of Treatment Not on filedocumented as of this encounter Visit Diagnoses Not on filedocumented in this encounter Care Teams Endless Track Vehicle Supervisor Relationship Specialty Start Date End Date Pcp, No PCP - General 01/24/08 03/12/09 [facility] [place] [address] documented as of this encounter
--- OUTSIDE RECORDS SUMMARY | 2022-06-20 13:00 | XMS_ITS | Encounter Summary ---
:1955 [address] [facility] Address [address] [place] [address] Phone Care Team Providers Name Role Phone Pcp, No Primary Care Provider Unavailable Reason for Visit Reason Comments Follow-up med check-in Encounter Details Date Type Department Care Team Description 01/24/2008 Office Visit HFA Urology Omar Savage, Neurogenic Bladder [address] [facility] (Primary Dx) [address] Research Only [place], [place] [address] Social History Tobacco Use Types Packs/Day Years Used Date Smoking Tobacco: Never Alcohol Use Standard Drinks/Week Comments Yes 3.3 (1 standard drink = 0.6 oz pure alco hol) Sex Assigned at Date Recorded Not on file documented as of this encounter Progress Notes Omar Savage MD - 01/29/2008 2:47 PM CDT [facility] [address] [facility] [place] [address] (fax) MEDREC#: [id number] PATIENT: MICHEAL RENE : 1955 DATE: 01/24/2008 [...] this examination. Omar Savage MD Received in Medical Biller Coder: 01/24/2008 17:47:53 (M: 01/29/2008 08:19:42 aml) CS/aml Voice ID: [id number] Document ID: [id number] cc: Omar Savage MD - 01/24/2008 5:48 [...] eGFR, >60 mL/min/1.73 HFA LAB Non- m2 Estonian Specimen Anatomical Collection Method Collection Time Receive d Time (Source) Location / / Volume Laterality Blood 01/24/2008 4:05 PM 8 4:29 CDT PM CDT Omar Savage MD LABORATORY Performing Organization Address City/[facility]/ZIP Code Phon e Number HFA LAB GLOMERULAR FILTRATION RATE B (01/24/2008 4:05 PM CDT) P athologist Signature eGFR, >60 mL/min/1.73 HFA LAB Estonian m2 Comment: IDMS TRACEABLE CALIBRATION EFFECTIVE 08/16/2007 Specimen Anatomical Collection Method Collection Time Receive d Time (Source) Location / / Volume Laterality Blood 01/24/2008 4:05 PM 8 4:29 CDT PM CDT Omar Savage MD LABORATORY Performing Organization Address City/[facility]/ZIP Code Phon e Number HFA [...] NOS documented in this encounter Care Teams Film Processing Shift Supervisor Relationship Specialty Start Date End Date Pcp, No PCP - General 01/24/08 03/12/09 [facility] [place] [address] documented as of this encounter
--- OUTSIDE RECORDS SUMMARY | 2022-06-20 13:00 | XMS_ITS | Encounter Summary ---
:1955 Author Organization [facility] Address [address] [place] [address] Phone Care Team Providers Name Role Phone Provider, Outside Primary Care Provider Unavailable Encounter Details Date Type Department Care Team Description 05/17/2010 Letters(Tab) HFA Urology Omar Savage MD [address] [place] [address], [address] Research Only [place] [address] Social History Tobacco Use Types Packs/Day Years Used Date Smoking Tobacco: Never Alcohol Use Standard Drinks/Week Comments Yes 3.3 (1 standard drink = 0.6 oz pure alco hol) Sex Assigned at Date Recorded Not on file documented as of this encounter Progress Notes Omar Savage MD - 05/18/2010 6:15 AM CDT [facility] [address] [place] [address] May 17, 2010 TO: Micheal Rene [address] [facility] [address] RE:MICHEAL RENE MR#:[id number] :1955 Dear Mr. Rene: From your recent urology clinic visit, the renal ultrasound that was performed does not show any evidence of kidney abnormalities. There is no dilation, no hydronephrosis or stones noted. Best wishes. Look forward to seeing you in 1 year. Please feel free to contact me for questions. Sincerely, Omar Savage MD Staff Physician Surgery Service Received in Linoleum Installer: 05/17/2010 21:18 M: 05/18/2010 03:15 javon CS/javon Voice ID: [id number] Document ID: [id number] cc:Micheal Rene [address] [address] [address] documented in this encounter Plan of Treatment Not on filedocumented as of this encounter Visit Diagnoses Not on filedocumented in this encounter Care Teams Client Portfolio Manager Relationship Specialty Start Date End Date Provider, Outside PCP - General 03/13/09 10/22/18 [place] [address] documented as of this encounter
--- OUTSIDE RECORDS SUMMARY | 2022-06-20 13:00 | XMS_ITS | Encounter Summary ---
:1955 Author Organization [facility] [place] Address [address] [place] [address] [place] [address] Phone Care Team Providers Name Role Phone Provider, Outside Primary Care Provider Unavailable Encounter Details Date Type Department Care Team Description 04/07/2010 Telephone [facility]FA Urology Omar Savage MD [address] [facility], [address] Research Only [place], [place] [address] Social History Tobacco Use Types [...] BALL AT 11:30. PLEASE CALL HIM AT [phone] Pt. Name: Khanh Rene : 1955 (home) Insurance: PCP: Outside Provider Comment: Expects Return Call at: documented in this encounter Plan of Treatment Not on filedocumented as of this encounter Visit Diagnoses Not on filedocumented in this encounter Care Teams Fuel System Maintenance Supervisor Relationship Specialty Start Date End Date Provider, Outside PCP - General 03/13/09 10/22/18 [place] [address] documented as of this encounter
--- OUTSIDE RECORDS SUMMARY | 2022-06-20 13:00 | XMS_ITS | Encounter Summary ---
:1955 Author Organization [facility] Address [address] [place] [address] Phone Care Team Providers Name Role Phone [...] in this encounter Care Teams Physical Education Professor Relationship Specialty Start Date End Date Provider, Outside PCP - General 03/13/09 10/22/18 [place] [address] documented as of this encounter
--- OUTSIDE RECORDS SUMMARY | 2022-06-20 13:00 | XMS_ITS | Encounter Summary ---
:1955 Author Organization [facility] Address [address] [place] [address] Phone Care Team Providers Name Role Phone Provider, Outside Primary Care Provider Unavailable Reason for Visit Reason Comments Referral Consult/Test/Treat (Routine) - Closed Specialty Diagnoses / Procedures Referred By Contact Refer red To Contact Plastic Surgery / Diagnoses Ulcer Sameera Frances, PLASTIC SURGERY [address] Mail [address] [place], [place] [address] Referral ID Status Reason Start Date Expiration Date Visits Requ ested Visits Authorized [id number] Closed 09/13/2010 09/13/2011 1 1 Encounter Details Date Type Department Care Team Description 09/17/[address] [facility] Plastic Surg Bubba Loya () Sara Rasmussen MD (Primary Dx) [address] [place], [place] [address] [place], [place] [phone] [address] Social History Tobacco Use Types Packs/Day Years Used Date Smoking Tobacco: Never Smokeless Tobacco: Never Alcohol Use Standard Drinks/Week Comments Yes 3.3 (1 standard drink = 0.6 oz pure alco hol) once in while Sex Assigned at Date Recorded Not on file documented as of this encounter Last Filed Vital Signs Vital Sign Reading Time Taken Comments Blood Pressure 112/77 09/17/2010 8:59 AM SILVER CHASER Pulse 98 09/17/2010 8:59 AM SILVER CHASER Temperature 35.9 ??C (96.7 ??F) 09/17/2010 8:59 AM SILVER CHASER Respiratory Rate - - Oxygen Saturation - [...] P: As ordered by provider. Dr loya ER CHASER Arnold Mejía MD - 09/17/2010 9:45 AM [...] documented. Bubba Loya MD, 09/17/2010 11:39 AM ER CHASER documented in this encounter Plan of Treatment Not on filedocumented as of this encounter Procedures Procedure Name Priority Date/Time Associated Diagnosis Comme nts SED RATE (ESR) Routine 09/17/2010 9:44 AM Quadriplegia () Re sults for this SILVER CHASER procedure are i n the results section. CBC WITH PLATELET Routine 09/17/2010 9:44 AM Quadriplegia () Results for this SILVER CHASER procedure are i n the results section. documented in this encounter Results (ABNORMAL) XR PELVIS WITH BOTH LAT HIP (09/17/2010 10:28 AM SILVER CHASER) Anatomical Region Laterality Modality Pelvis Computed Radiography Specimen (Source) Anatomical Collection Method Collection Time Re ceived Time Location / / Volume Laterality 09/17/2010 10:28 AM SILVER CHASER Impressions 09/17/2010 10:35 AM SILVER CHASER Impression: Severe osteoarthritis involving both hips with postsurgical fixation of a left hip fracture. There is no cortical irregularity to suggest osteomyelitis. This however lucency surrounding a fe moral IM nail. Three-phase bone scan may be beneficial to assess for infection surrounding the nail if clinically indicated. Reading Radiologist: Khanh Brunson Narrative 09/17/2010 10:35 AM SILVER CHASER History: Rule out osteo. Comparison: None. Findings [...] (ABNORMAL) CBC WITH PLATELET (09/17/2010 9:44 AM SILVER CHASER) P athologist Signature WBC 5.3 4.0 - 10.[address] [facility] k/cmm RBC 4.03 (L) 4.60 - 6.[address] [facility] m/cmm Hgb 11.8 (L) 13.1 - 17.[address] [facility] g/dL Hematocrit 36.4 (L) 40.0 - 51.[address] [facility] % MCV 90.3 80.0 - [facility] 100.0 fL MCH 29.3 25.0 - 32.[address] [facility] pg MCHC 32.4 31.0 - 36.[address] [facility] g/dL RDW 12.8 11.5 - 14.[address] [facility] % Plt 308 150 - [address] [facility] k/cmm MPV 8.0 6.5 - 12.[address] [facility] fL NRBC .0 0.0 - 0.0 % [facility] Specimen Anatomical Collection Method Collection Time Receive d Time (Source) Location / / Volume Laterality Blood 09/17/2010 9:44 AM 1 9:44 SILVER CHASER AM SILVER CHASER Arnold Mejía MD LABORATORY Performing Organization Address City/[facility]/ZIP [facility] Phon e Number [facility] [place] [address] LAB (ABNORMAL) SED RATE (ESR) (09/17/2010 9:44 AM SILVER CHASER) P athologist Signature Sed Rate 51 (H) 0 - 10 mm/hr [facility] Specimen Anatomical Collection Method Collection Time Receive d Time (Source) Location / / Volume Laterality Blood 09/17/2010 9:44 AM 1 9:44 SILVER CHASER AM SILVER CHASER Arnold Mejía MD LABORATORY Performing Organization Address City/[facility] Phon e Number [facility] [place] [address] LAB documented in this encounter Visit Diagnoses Diagnosis Quadriplegia () - Primary Quadriplegia, unspecified Quadriplegia () Quadriplegia, unspecified documented in this encounter Care Teams Eggs Inspector Relationship Specialty Start Date End Date Provider, Outside PCP - General 03/13/09 10/22/18 [place] [address] documented as of this encounter
--- OUTSIDE RECORDS SUMMARY | 2022-06-20 13:00 | XMS_ITS | Encounter Summary ---
:1955 Author Organization [facility] Address [address] [place] [address] Phone Care Team Providers Name Role Phone Provider, Outside Primary Care Provider Unavailable Reason for Visit Reason Comments Follow-up 13 months follow up visit [facility] Dr Frances HFA Monday PM&R Clinic for DX of C7 Spinal Cord Injury Encounter Details Date Type Department Care Team Description 04/20/2010 Office Visit HFA Neuromuscular Sameera Frances Don plegia () Clinic MD Valery (Primary Dx) [address], [address] [place] [address] Mail [address] [place], [place] [address] [place], [place] [phone] Social History Tobacco Use Types Packs/Day Years [...] Frances for: 1) Wheelchair repair/s. Faxed to [facility] ([phone]) Referral to [facility] Rehab Dept([facility]) Formal Wheelchair and wheeled mobility clinic faxedto scheduling to call Micheal to get scheduled ([phone]) Blanca Ziegler RN documented in this encounter Progress Notes Sameera Frances MD - 05/13/2010 3:35 PM CDT [facility] [address] [facility], [address] [place] [address] (fax) MEDREC#: [id number] PATIENT: MICHEAL FLETCHER : 1955 DATE: 04/20/2010 NEUROMUSCULAR PHYSICAL MEDICINE NOTE HISTORY OF PRESENT ILLNESS: Micheal Fletcher is a 55-year-old gentleman with a C7 [employer] B spinal cord [...] be broken as far the spokes. The [id number] stability is poor. The back of the [...] his wheelchair and recommended he see the [facility] for a mapping of his buttocks and a more complete evaluation of his wheelchair. I do not think we need any changes in medications for spasticity. Sameera Frances MD Staff Physician Physical Medicine and Rehabilitation Service Received in Fitness Worker: 05/11/2010 20:55 M: 05/13/2010 10:09 ms CLR/ms Voice ID: [id number] Document ID: [id number] cc:[place] [address] Sameera Frances MD - 04/20/2010 11:01 AM [...] unspecified documented in this encounter Care Teams High Lift Operator Relationship Specialty Start Date End Date Provider, Outside PCP - General 03/13/09 10/22/18 [place] [address] documented as of this encounter
--- OUTSIDE RECORDS SUMMARY | 2022-06-20 13:00 | XMS_ITS | Encounter Summary ---
:1955 Author Organization [facility] Address [address] [place] [place] [address] Phone Care Team Providers Name Role Phone Provider, Outside Primary Care Provider Unavailable Reason for Referral Consult/Test/Treat (Routine) - Closed Specialty Diagnoses / Procedures Referred By Contact Refer red To Contact Plastic Surgery / Diagnoses Ulcer Sameera Frances, PLASTIC SURGERY MD [address] Mail Code [address] [place], [place] [address] Referral ID Status Reason Start Date Expiration Date Visits Requ ested Visits Authorized [id number] Closed 09/13/2010 09/13/2011 1 1 ETING SPECIALIST Encounter Details Date Type Department Care Team Description 09/13/2010 Orders Only [facility] Phys Med/Rehab Sameera Frances U lcer () (Primary Clinic MD Dx) [address] [place] [address] Mail [address] [place], [place] [address] [place], [place] [phone] (Wo rk) Social History Tobacco Use Types [...] site documented in this encounter Care Teams Build Automation Engineer Relationship Specialty Start Date End Date Provider, Outside PCP - General 03/13/09 10/22/18 [place] [address] documented as of this encounter
--- OUTSIDE RECORDS SUMMARY | 2022-06-20 13:00 | XMS_ITS | Encounter Summary ---
:1955 Author Organization [facility] Address [address] [place] [address] Phone Care Team Providers Name Role Phone Provider, Outside Primary Care Provider Unavailable Reason for Visit Reason Comments Follow-up Encounter Details Date Type Department Care Team Description 04/01/2010 Office Visit [facility] Urology Omar Savage, Neurogenic bladder; [address] [place] [address] Screening for prostate cancer [address] [place], [place] [address] Social History Tobacco Use Types [...] Savage MD - 04/05/2010 1:22 PM CDT [facility] [address] [facility], [address] [place] [address] (fax) [facility]#: [id number] PATIENT: MICHEAL FLETCHER : 1955 DATE: 04/01/2010 [...] MD Staff Physician Surgery Service Received in Uat Tester: 04/02/2010 14:55 M: 04/02/2010 22:48 kn CS/kn Voice ID: [id number] Document ID: [id number] Omar Savage MD - 04/02/2010 2:55 PM [...] NOS documented in this encounter Care Teams Criminal Researcher Relationship Specialty Start Date End Date Provider, Outside PCP - General 03/13/09 10/22/18 [place] [address] documented as of this encounter
--- OUTSIDE RECORDS SUMMARY | 2022-06-20 13:00 | XMS_ITS | Encounter Summary ---
:1955 Author Organization [facility] Address [address] [place] [address] Phone Care Team Providers Name Role Phone Pcp, No Primary Care Provider Unavailable Reason for Visit Reason Comments Follow-up neurogenic bladder Encounter Details Date Type Department Care Team Description 01/29/2009 Office Visit [facility] Urology Omar Savage, Neurogenic Bladder [address] [place] [address] (Primary Dx) [address] [place], [place] [address] Social History Tobacco Use Types [...] MULTISPECIALTY CLINIC [address] [facility], [address] [place] [address] (fax) MEDREC#: [id number] PATIENT: MICHEAL FLETCHER : 1955 DATE: 01/29/2009 [...] pinning. The pinning was performed at the [facility]. His pacemaker was placed at the [facility]. I will request laboratory values [...] 20 minutes. Omar Savage MD Received in Law Firm Administrator: 01/29/2009 18:41:26 (M: 02/02/2009 08:06:12 sharmila) CS/sjv Voice ID: [id number] Document ID: [id number] cc: Omar Savage MD - 01/29/2009 6:41 [...] documented in this encounter Care Teams Supervisor Twisting Department Relationship Specialty Start Date End Date Pcp, No PCP - General 01/24/08 03/12/09 [place] [place] [address] documented as of this encounter
--- OUTSIDE RECORDS SUMMARY | 2022-06-20 13:00 | XMS_ITS | Encounter Summary ---
:1955 Author Organization [facility] Address [address] [place] [address] Phone Care Team Providers Name Role Phone Provider, Outside Primary Care Provider Unavailable Reason for Visit Reason Onset Date Comments Call Back 09/30/2010 Encounter Details Date Type Department Care Team Description 09/30/2010 Nurse Triage [facility] [place] Quang Toscano, Call Back [facility] [address] [place] [address] Social History Tobacco Use Types Packs/Day [...] requests that she call back again at [phone]. R: routing to MING POOL SERVICE TECHNICIAN Telephone Encounter - Quang Toscano RN - 09/30/2010 4:24 PM SWIMMING POOL SERVICE TECHNICIAN Message copied by QUANG TOSCANO on [...] CHRISTIANO TINAJERO Phone number for return call: [phone] MING POOL SERVICE TECHNICIAN documented in this encounter Plan of Treatment Not on filedocumented as of this encounter Visit Diagnoses Not on filedocumented in this encounter Care Teams Field Artillery Basic Relationship Specialty Start Date End Date Provider, Outside PCP - General 03/13/09 10/22/18 [place] [address] documented as of this encounter
--- OUTSIDE RECORDS SUMMARY | 2022-06-20 13:00 | XMS_ITS | Encounter Summary ---
:1955 Author Organization [facility] Address [address] [place] [address] Phone Care Team Providers Name Role Phone Provider, Outside Primary Care Provider Unavailable Encounter Details Date Type Department Care Team Description 08/30/2010 Telephone [facility] Physical Therap y Reece Ziegler, [place] [address] [facility] [address] [place] [address] Social History Tobacco Use Types Packs/Day Years [...] 08/30/2010 11:12 AM To: Neurology Team Pool [facility] ----- Message ----- From: Nola Espino Sent: 08/27/2010 1:52 PM To: Neurology Router Tender Pool Patient: Khanh Rene : 1955 Called to schedule an appointment with provider:Dr. Frances No appointments available: with preferred provider.. Date and time requested: caryn Reason for visit: Pt has a pressure sore, and needs a FU appt Phone number for return call: [phone] Monday08/30/10. Khanh Rene will need to [facility] at [phone] to schedule a follow up visit with Dr Frances in her PM&R Clinic. We will call Khanh and inform him of this. Reece Ziegler RN LD RUNNER documented in this encounter Plan of Treatment Not on filedocumented as of this encounter Visit Diagnoses Not on filedocumented in this encounter Care Teams Waist Presser Relationship Specialty Start Date End Date Provider, Outside PCP - General 03/13/09 10/22/18 [place] [address] documented as of this encounter
--- OUTSIDE RECORDS SUMMARY | 2022-06-20 13:00 | XMS_ITS | Encounter Summary ---
:1955 Author Organization [facility] Address [address] [place] [address] Phone Care Team Providers Name Role Phone Provider, Outside Primary Care Provider Unavailable Reason for Visit Reason Onset Date Comments Call Back 09/06/2010 Encounter Details Date Type Department Care Team Description 09/06/2010 Telephone [facility] Neurology Clini c Vickie Odell RN Call Back [address] [facility] [address] [address] [place], [place] [address] Social History Tobacco Use Types [...] states that he does not have a c python developer in Count Includes [facility]. R: Patient quadriplegic states that he would like to speak directly with . Routing to PIECE EXPANSION MAKER HAND Telephone Encounter - Vickie Odell RN - 09/06/2010 1:59 PM CST Message copied by VICKIE ODELL on MonSep 06, 2010 1:59 PM ------ Message from: BRANDEE TALAMANTES Created: MonSep 06, 2010 1:52 PM 09/06/2010 1:53 PM Khanh Edgard @[email or web address]@ 1955 Questions regarding a referral for a pressure sore from Dr Frances. Best number to call patient back: [phone]. Best time of day to reach patient:anytime. PIECE EXPANSION MAKER HAND documented in this encounter Plan of Treatment Not on filedocumented as of this encounter Visit Diagnoses Not on filedocumented in this encounter Care Teams Reinsurance Analyst Relationship Specialty Start Date End Date Provider, Outside PCP - General 03/13/09 10/22/18 [place] [address] documented as of this encounter
--- OUTSIDE RECORDS SUMMARY | 2022-06-20 13:00 | XMS_ITS | Encounter Summary ---
:1955 Author Organization [facility] Address [address] [place] [address] Phone Care Team Providers Name Role Phone Pcp, No Primary Care Provider Unavailable Reason for Visit Reason Onset Date Comments Refill Request 09/02/2008 Encounter Details Date Type Department Care Team Description 09/02/2008 Refill [facility] Urology Omar Savage MD Refill Request [address] [facility], [address] Research Only [place], [place] [address] Social History Tobacco Use Types Packs/Day Years Used Date Smoking Tobacco: Never Alcohol Use Standard Drinks/Week Comments Yes 3.3 (1 standard drink = 0.6 oz pure alco hol) Sex Assigned at Date Recorded Not on file documented as of this encounter Plan of Treatment Not on filedocumented as of this encounter Visit Diagnoses Not on filedocumented in this encounter Care Teams Radio Officer Relationship Specialty Start Date End Date Pcp, No PCP - General 01/24/08 03/12/09 [facility] [place] [address] documented as of this encounter
--- OUTSIDE RECORDS SUMMARY | 2022-06-20 13:00 | XMS_ITS | Encounter Summary ---
:1955 Author Organization [facility] Address [address] [place] [address] Phone Care Team Providers Name Role Phone Provider, Outside Primary Care Provider Unavailable Reason for Visit Reason Onset Date Comments Supplies 09/20/2010 Encounter Details Date Type Department Care Team Description 09/20/2010 Telephone [facility] Surgery Clinic Alka Jade RN Supplies [address] [place] [address] [place], [place] [address] Social History Tobacco Use Types [...] - 09/20/2010 10:02 AM CST Verified that [facility] pharmacy received fax for supplies on 09/17/10. KNIFE FISH CHOPPER Telephone Encounter - Alka Jade RN - [...] 1955 (home) Insurance: PCP: Outside Provider Comment: [facility] pharmacy [phone] Prescribed supplies Expects Return Call at: home see above KNIFE FISH CHOPPER documented in this encounter Plan of Treatment Not on filedocumented as of this encounter Visit Diagnoses Not on filedocumented in this encounter Care Teams Head Of Mathematics Relationship Specialty Start Date End Date Provider, Outside PCP - General 03/13/09 10/22/18 [place] [address] documented as of this encounter
--- OUTSIDE RECORDS SUMMARY | 2022-06-20 13:00 | XMS_ITS | Encounter Summary ---
:1955 Author Organization [facility] Address [address] [place] [address] Phone Care Team Providers Name Role Phone [...] 09/23/2010 12:00 AM CSTAssociated Order(s): INFORMATION DISCLOSURE ET PLACER documented in this encounter Plan of Treatment Not on filedocumented as of this encounter Procedures Procedure Name Priority Date/Time Associated Comments Diagnosis INFORMATION 09/23/2010 5:22 PM Results f or this DISCLOSURE MAGNET PLACER procedure are i n the results section. documented in this encounter Results INFORMATION DISCLOSURE (09/23/2010 5:22 PM MAGNET PLACER) Narrative 09/23/2010 5:22 PM MAGNET PLACER Procedure Note Unknown, Provider - 09/23/2010 12:00 AM CST Provider Unknown SCANNED CONSENTS documented in this encounter Visit Diagnoses Not on filedocumented in this encounter Care Teams Survey Compiler Relationship Specialty Start Date End Date Provider, Outside PCP - General 03/13/09 10/22/18 [place] [address] documented as of this encounter
--- OUTSIDE RECORDS SUMMARY | 2022-06-20 13:00 | XMS_ITS | Encounter Summary ---
:1955 Author Organization [facility] Address [address] [place] [address] Phone Care Team Providers Name Role Phone Provider, Outside Primary Care Provider Unavailable Reason for Visit Reason Onset Date Comments Call Back 08/30/2010 Encounter Details Date Type Department Care Team Description 08/30/2010 Telephone [facility] Multispecialty Varsha Knight RN Call Back [address], [address] [place] [address] [phone] [place] [address] (Wo rk) Social History Tobacco Use Types Packs/Day Years Used Date Smoking Tobacco: Never Alcohol Use Standard Drinks/Week Comments Yes 3.3 (1 standard drink = 0.6 oz pure alco hol) Sex Assigned at Date Recorded Not on file documented as of this encounter Miscellaneous Notes Telephone Encounter - Varsha Knight RN - 08/30/2010 4:23 PM CLIMATOLOGIST Spoke with patient & let him know that Blanca Ziegler was working on this (see her telephone encounter from earlier today). Pt states he is using Duoderm for this pressure sore but thinks it may need other intervention. Let him know our office would be in touch soon regarding this appt. 08/31/10 830 AM. I called and talked to Khanh ([phone]) he is a Dr Frances Quadriplegia patient and he does have a open sore on his bottom, he did call scheduling at [facility] Neurology ([phone])and could not get in to see Dr Frances in her PM&R Clinic until September. I informed Khanh that I will route this phone message to Dr Frances plus I will page her to try to talk to her about Khanh. Blanca Ziegler RN ATOLOGIST documented in this encounter Plan of Treatment Not on filedocumented as of this encounter Visit Diagnoses Not on filedocumented in this encounter Care Teams Track Laying Equipment Operator Relationship Specialty Start Date End Date Provider, Outside PCP - General 03/13/09 10/22/18 [place] [address] documented as of this encounter
--- OUTSIDE RECORDS SUMMARY | 2022-06-20 13:00 | XMS_ITS | Encounter Summary ---
:1955 Author Organization [facility] Address [address] [place] [address] Phone Care Team Providers Name Role Phone Pcp, No Primary Care Provider Unavailable Reason for Visit Reason Onset Date Comments Refill Request 01/28/2008 Encounter Details Date Type Department Care Team Description 01/28/2008 Refill [facility] Urology Omar Savage MD Refill Request [address] [facility] Research Only [place], [place] [address] Social History Tobacco Use Types [...] on filedocumented in this encounter Care Teams Grip Wrapper Relationship Specialty Start Date End Date Pcp, No PCP - General 01/24/08 03/12/09 [facility] [place] [address] documented as of this encounter
--- OUTSIDE RECORDS SUMMARY | 2022-06-20 13:00 | XMS_ITS | Encounter Summary ---
:1955 Author Organization [facility] Address [address] [place] [address] Phone Care Team Providers Name Role Phone Provider, Outside Primary Care Provider Unavailable Reason for Visit Reason Comments Follow-up Encounter Details Date Type Department Care Team Description 09/24/[address] [facility] Plastic Surg DaysiBubba Veronica us ulcer, stage Clinic MD Valery IV () (Primary Dx) [address] [facility] P5.620 Mail Code P5 [place], [place] [address] [place], [place] [phone] Social History Tobacco Use Types Packs/Day Years Used Date Smoking Tobacco: Never Smokeless Tobacco: Never Alcohol Use Standard Drinks/Week Comments Yes 3.3 (1 standard drink = 0.6 oz pure alco hol) once in while Sex Assigned at Date Recorded Not on file documented as of this encounter Last Filed Vital Signs Vital Sign Reading Time Taken Comments Blood Pressure 107/73 09/24/2010 10:33 AM [facility] Pulse 87 09/24/2010 10:33 AM [facility] Temperature 36.8 ??C (98.2 ??F) 09/24/2010 10:33 AM [facility] Respiratory Rate - - Oxygen Saturation - [...] of infection, please contact the Surgery clinic [phone]: redness, warmth, swelling, drainage, pain, and/or fever over 100 degrees. [facility] documented in this encounter Progress Notes Mari Odell RN - 09/24/2010 2:45 PM CST Wound care D: Here for wound care. Location: coccyx A: Exam per provider. Wound cleansed with: technicare, H2O and rinsed. Dressing applied: and wet to dry with 1/2 packing and 2x2's with Island dressing. R: Patient tolerated procedure well. P: As ordered by provider. [facility] Syl Yanes MD - 09/24/2010 11:21 AM [...] has received the special cushion from the [facility] which is supposed to relieve pressure from that area. He does have another apptset up with Soumya at the [facility] to complete the mapping to ensure no [...] documented. Bubba Tavarez MD, 09/25/2010 9:26 AM [facility] documented in this encounter Plan of Treatment Not on filedocumented as of this encounter Visit Diagnoses Diagnosis Decubitus ulcer, stage IV () - Primary Pressure ulcer, unspecified site documented in this encounter Care Teams Fiscal Services Director Relationship Specialty Start Date End Date Provider, Outside PCP - General 03/13/09 10/22/18 [place] [address] documented as of this encounter
--- OUTSIDE RECORDS SUMMARY | 2022-06-20 13:00 | XMS_ITS | Encounter Summary ---
:1955 Author Organization [facility] Address [address] [place] [address] Phone Care Team Providers Name Role Phone Unavailable Primary Care Provider Unavailable Reason for Visit Reason Onset Date Comments Medication Refill 10/16/2007 Encounter Details Date Type Department Care Team Description 10/16/2007 Refill HFA Urology Omar Savage MD Medication Refill [address] [facility], [address] Research Only [place], [place] [address] Social History Tobacco Use Types [...]
--- OUTSIDE RECORDS SUMMARY | 2022-06-20 13:00 | XMS_ITS | Encounter Summary ---
:1955 Author Organization [facility] Address [address] [place] [address] Phone Care Team Providers Name Role Phone Pcp, No Primary Care Provider Unavailable Reason for Visit Reason Onset Date Comments Question 02/20/2009 Called with question Encounter Details Date Type Department Care Team Description 02/20/2009 Telephone HFA Physical Medicin e Reece Ziegler, Question (Called with [facility] [address], Suite RN question) [facility] [place] [address] Clinic [phone] [place] [address] Social History Tobacco Use Types Packs/Day Years [...] Created: MonFeb 19, 2009 3:38 PM Regarding: [facility] PMR TELEPHONE MESSAGE Taken by: Natalie Painting , 02/19/2009 3:38 PM Direct to: Problem: questions Pt. Name: Khanh Rene : 1955 (home) Insurance: PCP: No PCP Comment: Expects Return Call at: [phone] Monday02/20/09 at 930am, returned Khanh's phone call, had to leave phone message, Reece Ziegler RN 02/26/09 again returned Khanh's phone call woth no answer. Khanh is scheduled to see Dr Frances on Monday03/13/09 at [facility]. I has also given Dr Frances phone message from Khanh on his question on medical supply.Reece Ziegler RN documented in this encounter Plan of Treatment Not on filedocumented as of this encounter Visit Diagnoses Not on filedocumented in this encounter Care Teams Internal Controls Consultant Relationship Specialty Start Date End Date Pcp, No PCP - General 01/24/08 03/12/09 [facility] [place] [address] documented as of this encounter
--- OUTSIDE RECORDS SUMMARY | 2022-06-20 13:00 | XMS_ITS | Encounter Summary ---
:1955 Author Organization [facility] Address [address] [facility] [place] [address] Phone Care Team Providers Name Role Phone Provider, Outside Primary Care Provider Unavailable Reason for Visit Reason Onset Date Comments Question 09/22/2010 Encounter Details Date Type Department Care Team Description 09/22/2010 Telephone [facility] Blanca Marti, NILSA Question [address] [facility] [address] [address] [place], [place] [address] Social History Tobacco Use Types [...] discuss concerns with Dr. Loya. He agreed. O SPORTSCASTER Telephone Encounter - Blanca Marti RN - 09/22/2010 10:35 AM CST Pt calling in with frustrations Saw dr. loya who wants pt to see dr. bernstein again before coming back Dr. bernstein wants pt to be seen in [facility] Paperwork faxed to them and pt will call and schedule Pt having questions regarding his care of his wound after seeing dr. loya- felt his appt was so brief with dr. loya and is unsatisfied and would like to speak with nsg staff in surgery clinic Routed to surg clinic RNs Blanca Marti RN, 09/22/2010 10:35 AM O [employer]SC[employer]ER documented in this encounter Plan of Treatment Not on filedocumented as of this encounter Visit Diagnoses Not on filedocumented in this encounter Care Teams Trailer Tank Truck Driver Relationship Specialty Start Date End Date Provider, Outside PCP - General 03/13/09 10/22/18 [place] [address] documented as of this encounter
--- OUTSIDE RECORDS SUMMARY | 2022-06-20 13:00 | XMS_ITS | Encounter Summary ---
:1955 Author Organization [facility] Address [address] [place] [address] Phone Care Team Providers Name Role Phone Provider, Outside Primary Care Provider Unavailable Reason for Visit Reason Onset Date Comments Refill Request 10/21/2009 Encounter Details Date Type Department Care Team Description 10/21/2009 Refill HFA Urology Omar Savage MD Refill Request [address] [facility], [address] Research Only [place], [place] [address] Social History Tobacco Use Types [...] NOS documented in this encounter Care Teams Anthropology Instructor Relationship Specialty Start Date End Date Provider, Outside PCP - General 03/13/09 10/22/18 [place] [address] documented as of this encounter
--- OUTSIDE RECORDS SUMMARY | 2022-06-20 13:01 | XMS_ITS | Encounter Summary ---
:1955 Author Organization [facility] Address [address] [place] [address] Phone Care Team Providers Name Role Phone Unavailable Primary Care Provider Unavailable Encounter Details Date Type Department Care Team Description 05/10/2005 EWeb History [facility] EMG Sameera Frances MD [address] [facility] 701 [place], [place] [address] Mail Code P5 [place] [address] (Wo rk) Social History Tobacco Use Types Packs/Day Years Used Date Smoking Tobacco: Never Assessed Sex Assigned at Date Recorded Not on file documented as of this encounter Plan of Treatment Not on filedocumented as of this encounter Visit Diagnoses Not on filedocumented in this encounter
--- OUTSIDE RECORDS SUMMARY | 2022-06-20 13:01 | XMS_ITS | Encounter Summary ---
:1955 Author Organization [facility] Address [address] [place] [address] Phone Care Team Providers Name Role Phone Unavailable Primary Care Provider Unavailable Encounter Details Date Type Department Care Team Description 05/10/2005 Notes/Trans Unknown, Provider Social History Tobacco Use Types Packs/Day Years Used Date Smoking Tobacco: Never Assessed Sex Assigned at Date Recorded Not on file documented as of this encounter Progress Notes Interface, Desizing Pad Operator-In - 11/15/2005 12:30 AM CDT [facility] MEDREC#: [id number] [place] [address] PATIENT: MICHEAL FLETCHER : 1955 NARRATIVE NOTES [...] a father and a grandfather living in [place]. REVIEW OF SYSTEMS: A total of ten [...] depression. Equipment - he has a new [employer] wheelchair and a J cushion with extra [...] Physical Medicine and Rehabilitation Service Received in Desizing Pad Operator: 05/10/2005 17:00:07 (M: 05/12/2005 12:51:56/[facility]) [facility]/cme Voice ID: [id number] Document ID: [id number] cc: This document was electronically signed by Sameera Frances MD on 06/07/2005 14:43:43. documented in this encounter Plan of Treatment Not on filedocumented as of this encounter Visit Diagnoses Not on filedocumented in this encounter
--- OUTSIDE RECORDS SUMMARY | 2022-06-20 13:01 | XMS_ITS | Encounter Summary ---
:1955 Author Organization [facility] Address [address] [place] [address] Phone Care Team Providers Name Role Phone Unavailable Primary Care Provider Unavailable Encounter Details Date Type Department Care Team Description 08/18/2005 Notes/Trans Unknown, Provider Social History Tobacco Use Types Packs/Day Years Used Date Smoking Tobacco: Never Assessed Sex Assigned at Date Recorded Not on file documented as of this encounter Progress Notes Interface, [employer]-In - 11/15/2005 1:28 AM CDT [facility] [id number] [facility] PATIENT: MICHEAL FLETCHER [address] [facility] : 1955 [place] [address] DATE: 08/18/2005 Page (fax) The patient is [...] KEFLEX, SHELLFISH, AND AUGMENTIN. His primary care cemetery vault installer is Dr. Sameera Frances whom he sees [...] year's time. Omar Savage MD Received in [employer]: 08/22/2005 18:11:27 (M: 08/24/2005 17:01:36 cb) CS/cb Voice ID: [id number] Document ID: [id number] cc: This document was electronically signed by Omar Savage MD on 08/26/2005 10:47:02. ? documented in this encounter Plan of Treatment Not on filedocumented as of this encounter Visit Diagnoses Not on filedocumented in this encounter
--- OUTSIDE RECORDS SUMMARY | 2022-06-20 13:01 | XMS_ITS | Encounter Summary ---
:1955 Author Organization [facility] Address [address] [place] [address] Phone Care Team Providers Name Role Phone Unavailable Primary Care Provider Unavailable Encounter Details Date Type Department Care Team Description 09/02/2005 Letters(Tab) Unknown, Provider Social History Tobacco Use Types Packs/Day Years Used Date Smoking Tobacco: Never Assessed Sex Assigned at Date Recorded Not on file documented as of this encounter Progress Notes Interface, Toxicology Supervisor-In - 11/15/2005 1:36 AM CDT [facility] [address] [facility], [address] [place], [place] [address] September 02, 2005 Mr. Micheal Rene [address] [place] [address] RE: MICHEAL RENE MR#: [id number] Dear Mr. Rene: From your recent Urology Clinic visit, your prostate specific antigen value remains low at 2.6. We will communicate with you once your other screening studies and x-ray studies have been completed. Best wishes. Please feel free to contact me for questions. Sincerely, Omar Savage MD Received in Toxicology Supervisor: 09/02/2005 14:40:28 (M: 09/03/2005 06:57:04 dma) CS/fidelina Voice ID: [id number] Document ID: [id number] cc: This document was electronically signed by Omar Savage MD on 09/06/2005 18:13:45. documented in this encounter Plan of Treatment Not on filedocumented as of this encounter Visit Diagnoses Not on filedocumented in this encounter
--- OUTSIDE RECORDS SUMMARY | 2022-06-20 13:01 | XMS_ITS | Encounter Summary ---
:1955 Author Organization [facility] Address [address] [place] [address] Phone Care Team Providers Name Role Phone [...] 08/18/2005 12:00 AM R esults for this WAXER procedure are i n the results section. PSA-SCREENING(MT) Routine 08/18/2005 12:00 AM Res ults for this WAXER procedure are i n the results section. CREATININE, SERUM Routine 08/18/2005 12:00 AM Res ults for this WAXER procedure are i n the results section. documented in this encounter Results PSA-SCREENING(MT) (08/18/2005 12:00 AM WAXER) athologist Signature PSA Screen 2.6 0.00 - 4.00 HFA LAB NG/ML Specimen (Source) Anatomical Collection Method Collection Time Re ceived Time Location / / Volume Laterality Blood 08/18/2005 08/18/2005 5:07 PM WAXER Omar Savage MD LABORATORY Performing Organization Address City/State/ZIP Code Phon e Number HFA LAB BUN (UREA NITROGEN) (08/18/2005 12:00 AM WAXER) athologist Signature BUN 9 5 - 25 MG/DL HFA LAB Specimen (Source) Anatomical Collection Method Collection Time Re ceived Time Location / / Volume Laterality Blood 08/18/2005 08/18/2005 5:07 PM WAXER Omar Savage MD LABORATORY Performing Organization Address City/State/ZIP Code Phon e Number HFA LAB CREATININE, SERUM (08/18/2005 12:00 AM WAXER) P athologist Signature Creatinine <0.5 0.5 - 1.4 HFA LAB MG/DL Comment: REPEATED Specimen (Source) Anatomical Collection Method Collection Time Re ceived Time Location / / Volume Laterality Blood 08/18/2005 08/18/2005 5:07 PM WAXER Omar Savage MD LABORATORY Performing Organization Address City/State/ZIP Code Phon e Number HFA LAB documented in this encounter Visit Diagnoses Not on filedocumented in this encounter
--- OUTSIDE RECORDS SUMMARY | 2022-06-20 13:01 | XMS_ITS | Encounter Summary ---
:1955 Author Organization [facility] Address [address] [place] [address] Phone Care Team Providers Name Role Phone Unavailable Primary Care Provider Unavailable Encounter Details Date Type Department Care Team Description 09/02/2005 Orders Only [facility] XRAY [address] [place], [place] [address] Social History Tobacco Use Types Packs/Day Years Used Date Smoking Tobacco: Never Assessed Sex Assigned at Date Recorded Not on file documented as of this encounter Plan of Treatment Not on filedocumented as of this encounter Procedures Procedure Name Priority Date/Time Associated Diagnosis Comme nts ULT KIDNEYS Routine 09/02/2005 3:16 PM Results f or this COMPLETE HEALTHCARE SPECIALIST procedure are i n the results section. XR CHEST 2 VIEWS PA Routine 09/02/2005 3:03 PM Re sults for this + LAT* HEALTHCARE SPECIALIST procedure are i n the results section. documented in this encounter Results ULT KIDNEY COMPLETE (09/02/2005 3:16 PM HEALTHCARE SPECIALIST) Anatomical Region Laterality Modality Abdomen Ultrasound Specimen (Source) Anatomical Collection Method Collection Time Re ceived Time Location / / Volume Laterality 09/02/2005 3:16 PM HEALTHCARE SPECIALIST Impressions 09/05/2005 9:17 AM HEALTHCARE SPECIALIST : ??NO FOCAL MASS, STONE, OR [...] ( ) IMPRESSION Narrative 09/05/2005 9:17 AM HEALTHCARE SPECIALIST FABIOLA AVALOS M.D. - RESIDENT RADIOLOGIST Final Report EXAM: ?? RENAL US: CHITINA KIDNEYS ?? 04/2006 15:16 HISTORY: ??Neurogenic bladder. [...] RESIDENT RADIOLOGIST Final Report EXAM: RENAL US: CHITINA KIDNEYS 15:16 HISTORY: Neurogenic bladder. COMPARISON: 10/12/01. [...] () LEAD PAINTER: ( ) IMPRESSION Omar Savage MD ULT XR CHEST 2 VIEWS PA & LAT (09/02/2005 3:03 PM HEALTHCARE SPECIALIST) Anatomical Region Laterality Modality Chest Digital Radiography Specimen (Source) Anatomical Collection Method Collection Time Re ceived Time Location / / Volume Laterality 09/02/2005 3:03 PM HEALTHCARE SPECIALIST Impressions 09/02/2005 3:58 PM HEALTHCARE SPECIALIST : ??NO ACUTE PULMONARY INFILTRATE. ?? . . Read Date: Sep 02 2005 ??3:34P VIANCA COHEN M.D. - STAFF RADIOLOGIST - RESIDENT RADIOLOGIST RELEASE RESULTS: (Y) ASI END: END RESULT: DATE DICTATED: () LEAD PAINTER: ( ) IMPRESSION Narrative 09/02/2005 3:58 PM HEALTHCARE SPECIALIST - RESIDENT RADIOLOGIST Final Report EXAM: [...] () LEAD PAINTER: ( ) IMPRESSION Omar Savage MD X-RAY documented in this encounter Visit Diagnoses Not on filedocumented in this encounter
--- OUTSIDE RECORDS SUMMARY | 2022-06-20 13:01 | XMS_ITS | Encounter Summary ---
:1955 Author Organization [facility] Address [address] [place] [address] Phone Care Team Providers Name Role Phone Unavailable Primary Care Provider Unavailable Encounter Details Date Type Department Care Team Description 05/15/2003 EWeb History [facility] EMG Sameera Frances MD [address] [facility] [address] [place], [place] [address] Mail Code P5 [place] [address] (Wo rk) Social History Tobacco Use Types Packs/Day Years Used Date Smoking Tobacco: Never Assessed Sex Assigned at Date Recorded Not on file documented as of this encounter Plan of Treatment Not on filedocumented as of this encounter Visit Diagnoses Not on filedocumented in this encounter
--- OUTSIDE RECORDS SUMMARY | 2022-06-20 13:01 | XMS_ITS | Encounter Summary ---
:1955 Author Organization [facility] Address [address] [place] [address]. [place] [address] Phone Care Team Providers Name Role Phone Unavailable Primary Care Provider Unavailable Encounter Details Date Type Department Care Team Description 09/02/2005 Orders Only [facility] [place] [address] [place], [place] [address] Social History Tobacco Use Types Packs/Day Years Used Date Smoking Tobacco: Never Assessed Sex Assigned at Date Recorded Not on file documented as of this encounter Plan of Treatment Not on filedocumented as of this encounter Procedures Procedure Name Priority Date/Time Associated Diagnosis Comme nts ULT KIDNEYS Routine 09/02/2005 3:16 PM Results f or this COMPLETE POLICE DETECTIVE procedure are i n the results section. documented in this encounter Results ULT KIDNEY COMPLETE (09/02/2005 3:16 PM POLICE DETECTIVE) Anatomical Region Laterality Modality Abdomen Ultrasound Specimen (Source) Anatomical Collection Method Collection Time Re ceived Time Location / / Volume Laterality 09/02/2005 3:16 PM POLICE DETECTIVE Impressions 09/05/2005 9:17 AM POLICE DETECTIVE : ??NO FOCAL MASS, STONE, OR HYDRONEPHROSIS IDENTIFIED WITHIN EITHER KIDNEY. I have personally reviewed the image(s) and initial interpretation, and I agree with the findings. . . Read Date: Sep 02 2005 ??4:12P BENEDICT AU M.D. - STAFF RADIOLOGIST FABIOLA AVALOS M.D. - RESIDENT RADIOLOGIST RELEASE RESULTS: (Y) ASI END: END RESULT: DATE DICTATED: () WATCH CRYSTAL MOLDER: ( ) IMPRESSION Narrative 09/05/2005 9:17 AM POLICE DETECTIVE FABIOLA AVALOS M.D. - RESIDENT RADIOLOGIST Final Report EXAM: ?? RENAL US: KLUTI KAAH KIDNEYS ?? 04/2006 15:16 HISTORY: ??Neurogenic bladder. [...] RESIDENT RADIOLOGIST Final Report EXAM: RENAL US: KLUTI KAAH KIDNEYS 15:16 HISTORY: Neurogenic bladder. COMPARISON: 10/12/01. [...] ASI END: END RESULT: DATE DICTATED: () WATCH CRYSTAL MOLDER: ( ) IMPRESSION Omar HUMPHREYT documented in this encounter Visit Diagnoses Not on filedocumented in this encounter
--- OUTSIDE RECORDS SUMMARY | 2022-06-20 13:01 | XMS_ITS | Encounter Summary ---
:1955 Author Organization [facility][Note 3] Address [address] [place] [address] Phone Care Team Providers Name Role Phone [...]
--- OUTSIDE RECORDS SUMMARY | 2022-06-20 13:01 | XMS_ITS | Encounter Summary ---
:1955 Author Organization [facility] Address [address] [place] [address] Phone Care Team Providers Name Role Phone Unavailable Primary Care Provider Unavailable Encounter Details Date Type Department Care Team Description 09/29/2006 Letters(Tab) [facility] U[facility] Omar Savage MD [facility] [address] [facility] [address] [place], [place] [address] Social History Tobacco Use Types Packs/Day Years Used Date Smoking Tobacco: Never Assessed Sex Assigned at Date Recorded Not on file documented as of this encounter Progress Notes Omar Savage MD - 09/29/2006 4:34 PM CST [facility] [address] [place] [address] 09/29/2006 TO: Micheal Rene [address] [place], [place] [address] RE: MICHEAL RENE MR#: [id number] Dear Mr. Rene: From your recent Urology Clinic visit your prostate specific antigen value remains in a normal level and is 2.87. Best wishes and please feel free to contact us for questions. Sincerely, Omar Savage MD Received in Travel Agency Manager: 09/29/2006 12:33:54 (M: 09/29/2006 13:29:47 kms) CS/kms Voice ID: [id number] Document ID: [id number] cc: Micheal Rene [id number] [facility] [address] CARE LIAISON documented in this encounter Plan of Treatment Not on filedocumented as of this encounter Visit Diagnoses Not on filedocumented in this encounter
--- OUTSIDE RECORDS SUMMARY | 2022-06-20 13:02 | XMS_ITS | Encounter Summary ---
:1955 Author Organization [facility] Address [address] [place] [address] Phone Care Team Providers Name Role Phone [...]
--- OUTSIDE RECORDS SUMMARY | 2022-06-20 13:02 | XMS_ITS | Encounter Summary ---
:1955 Author Organization [facility] Address [address] [place], [place] [address] [address] Phone Care Team Providers Name Role Phone Unavailable Primary Care Provider Unavailable Encounter Details Date Type Department Care Team Description 04/03/1997 Orders Only [facility] Ultrasound [address] [place], [place] [address] Social History Tobacco Use Types Packs/Day Years [...] CDT Final Report EXAM: ?? RENAL US: TUNUNAK KIDNEYS ?- ??04/03/1997 01:10PM ?? EXAM: ??RENAL [...] - 03/10/2006 Final Report EXAM: RENAL US: TUNUNAK KIDNEYS - 997 01:10PM EXAM: RENAL ULTRASOUND [...]
--- OUTSIDE RECORDS SUMMARY | 2022-06-20 13:02 | XMS_ITS | Encounter Summary ---
:1955 Author Organization [facility] Address [address] [place] [address] Phone Care Team Providers Name Role Phone Unavailable Primary Care Provider Unavailable Encounter Details Date Type Department Care Team Description 07/03/1995 Orders Only [facility] [place] [address] [place], [place] [address] Social History Tobacco Use Types Packs/Day Years Used Date Smoking Tobacco: Never Assessed Sex Assigned at Date Recorded Not on file documented as of this encounter Plan of Treatment Not on filedocumented as of this encounter Procedures Procedure Name Priority Date/Time Associated Diagnosis Comme nts XR SACRUM AP & LAT Routine 07/03/1995 2:10 PM Res ults for this AMBULANCE ATTENDANT procedure are i n the results section. XR COCCYX AP & LAT Routine 07/03/1995 2:10 PM Res ults for this AMBULANCE ATTENDANT procedure are i n the results section. documented in this encounter Results XR COCCYX AP & LAT (07/03/1995 2:10 PM AMBULANCE ATTENDANT) Anatomical Region Laterality Modality Lumbar Spine Computed Radiography Specimen (Source) Anatomical Collection Method Collection Time Re ceived Time Location / / Volume Laterality 07/03/1995 2:10 PM AMBULANCE ATTENDANT Impressions 07/05/1995 12:33 PM AMBULANCE ATTENDANT : ??Please see Sacrum report dated 07/03/95 1410. ASI END: RELEASE RESULTS: (Y) END RESULT: IMPRESSION Narrative 07/05/1995 12:33 PM AMBULANCE ATTENDANT Final Report EXAM: ?? COCCYX AP & [...] SACRUM AP & LAT (07/03/1995 2:10 PM AMBULANCE ATTENDANT) Anatomical Region Laterality Modality Lumbar Spine Computed Radiography Specimen (Source) Anatomical Collection Method Collection Time Re ceived Time Location / / Volume Laterality 07/03/1995 2:10 PM AMBULANCE ATTENDANT Impressions 07/05/1995 12:33 PM AMBULANCE ATTENDANT : ??Evidence of bone loss or destruction [...] END RESULT: IMPRESSION Narrative 07/05/1995 12:33 PM AMBULANCE ATTENDANT Final Report EXAM: ?? SACRUM AP & [...]
--- OUTSIDE RECORDS SUMMARY | 2022-06-20 13:02 | XMS_ITS | Encounter Summary ---
:1955 Author Organization [facility] Address [address] [place], [place] [address] [place] [address] Phone Care Team Providers Name Role Phone Unavailable Primary Care Provider Unavailable Encounter Details Date Type Department Care Team Description 12/09/[address] [facility] [place] [address] [place], [place] [address] Social History Tobacco Use Types [...]
--- OUTSIDE RECORDS SUMMARY | 2022-06-20 13:02 | XMS_ITS | Encounter Summary ---
:1955 Author Organization [facility] Address [address] [place] [address] Phone Care Team Providers Name Role Phone Unavailable Primary Care Provider Unavailable Encounter Details Date Type Department Care Team Description 03/04/2003 EWeb History [facility] Bubba Tavarez MD [phone] Mail Code [address] [place], [place] [address] [address] [place] [address] [phone] (Wo rk) Social History Tobacco Use Types Packs/Day Years Used Date Smoking Tobacco: Never Assessed Sex Assigned at Date Recorded Not on file documented as of this encounter Plan of Treatment Not on filedocumented as of this encounter Visit Diagnoses Not on filedocumented in this encounter
--- OUTSIDE RECORDS SUMMARY | 2022-06-20 13:02 | XMS_ITS | Encounter Summary ---
:1955 Author Organization [facility] Address [address] [place] [phone] Phone Care Team Providers Name Role Phone [...]
--- OUTSIDE RECORDS SUMMARY | 2022-06-20 13:02 | XMS_ITS | Encounter Summary ---
:1955 Author Organization [facility] Address [address] [place] [address] Phone Care Team Providers Name Role Phone Unavailable Primary Care Provider Unavailable Encounter Details Date Type Department Care Team Description 10/12/2001 Orders Only [facility] [address] [place], [place] [address] Social History Tobacco Use Types Packs/Day Years Used Date Smoking Tobacco: Never Assessed Sex Assigned at Date Recorded Not on file documented as of this encounter Plan of Treatment Not on filedocumented as of this encounter Procedures Procedure Name Priority Date/Time Associated Diagnosis Comme nts XR CHEST 2 VIEWS PA Routine 10/12/2001 12:00 PM R esults for this + LAT* FIELD STAFF procedure are i n the results section. ULT KIDNEYS Routine 10/12/2001 11:22 AM Results for this COMPLETE FIELD STAFF procedure are i n the results section. documented in this encounter Results XR CHEST 2 VIEWS PA & LAT (10/12/2001 12:00 PM FIELD STAFF) Anatomical Region Laterality Modality Chest Digital Radiography Specimen (Source) Anatomical Collection Method Collection Time Re ceived Time Location / / Volume Laterality 10/12/2001 12:00 PM FIELD STAFF Impressions 10/14/2001 3:54 PM FIELD STAFF : 1. ??NO PULMONARY FIBROSIS OR AIR-SPACE INFILTRATE SEEN. 2. ??STABLE RIGHT LOWER LOBE PULMONARY N ODULE, LIKELY CALCIFIED. 3. ??INTERVAL MORE PROMINENT DENSITY OVE R THE MEDIAL ASPECT OF THE RIGHT APEX, OF UNCERTAIN CLINICAL SIGNIFICANCE . ??FURTHER EVALUATION WITH LORDOTIC VIEW MAY BE HELPFUL. ASI END: RELEASE RESULTS: (Y) END RESULT: IMPRESSION Narrative 10/14/2001 3:54 PM FIELD STAFF Final Report EXAM: ?? CHEST 2 VIEWS [...] X-RAY ULT KIDNEY COMPLETE (10/12/2001 11:22 AM FIELD STAFF) Anatomical Region Laterality Modality Abdomen Ultrasound Specimen (Source) Anatomical Collection Method Collection Time Re ceived Time Location / / Volume Laterality 10/12/2001 11:22 AM FIELD STAFF Impressions 10/15/2001 4:06 PM FIELD STAFF : 1. ??NO RENAL STONES IDENTIFIED. 2. ??MILD CORTICAL THINNING BILATERALLY. ??THIS MAY INDICATE MEDICAL RENAL DISEASE. I have personally reviewed the image(s) and initial interpretation, and I agree with the findings. ASI END: RELEASE RESULTS: (Y) END RESULT: IMPRESSION Narrative 10/15/2001 4:06 PM FIELD STAFF Final Report EXAM: ?? RENAL US: SHOSHONE-PAIUTE KIDNEYS ?- ??10/12/2001 11:22AM SUSPECTED PATHOLOGY: SYMPTOMS [...] the original. Final Report EXAM: RENAL US: SHOSHONE-PAIUTE KIDNEYS - 002 11:22AM SUSPECTED PATHOLOGY: SYMPTOMS [...]
--- OUTSIDE RECORDS SUMMARY | 2022-06-20 13:02 | XMS_ITS | Clinical Summary ---
:1955 Author Organization [employer] [place] [address] Care Team Providers Name Role Phone Ana Mayers Unavailable Alex Mata MD Primary Care Provider [phone] Allergies Active Allergy Reactions Severity Noted Date Comments Blood-Group Specific Other - Describe In 04/19/2021 Patient has Levi saucedo Substance Comment Field (Fya) antibody . Blood products may be delayed. Dra renee patient 24 hour s prior to transfusion. Fo r BioTheryX testing, draw o ne red top and [...] Encounters Date Type Specialty Care Team Description 06/15/2022 Lab Requisition Alex Mata MD 06/08/2022 Lab Requisition Alex Mata MD 06/01/2022 Lab Requisition Alex Mata MD 05/25/2022 Lab Requisition Alex Mata MD 05/18/2022 [...] Encounters Date Type Specialty Care Team Description 07/06/2022 Cardiac Device Check Health Maintenance Due Date [...] 12/26/2008, 09/01/2006 Medical Devices Implanted Type Area Cocoa Butter Filter Operator Device Shelf Model / Identifier Expiration Serial / Date Lot Standard Pacemaker-12/21/2012 Standard Medtronic [id number] / Implanted: 12/21/2012 by Judson Jenkins MD (Quantity not on file) Pacemaker [id number] / Procedures Procedure Name Priority Date/Time Associated Diagnosis Comme nts CBC WITH AUTO Routine 06/15/2022 1:20 Osteomyelitis of Results for this DIFFERENTIAL PM TECHNICAL PUBLICATIONS MANAGER vertebra, sacral and procedu re are in sacrococcygeal region the re sults (HC) section. Pressure ulcer of right buttock, stage 4 (HC) CREATININE Routine 06/15/2022 1:20 Osteomyelitis of Results for this PM TECHNICAL PUBLICATIONS MANAGER vertebra, sacral and procedu re are in sacrococcygeal region the re sults (HC) section. Pressure ulcer of right buttock, stage 4 (HC) C-REACTIVE PROTEIN Routine 06/15/2022 1:20 Osteomyelitis of Re sults for this PM TECHNICAL PUBLICATIONS MANAGER vertebra, sacral and procedu re are in sacrococcygeal region the re sults (HC) section. Pressure ulcer of right buttock, stage 4 (HC) BUN Routine 06/15/2022 1:20 Osteomyelitis of Results for this PM TECHNICAL PUBLICATIONS MANAGER vertebra, sacral and procedu re are in sacrococcygeal region the re sults (HC) section. Pressure ulcer of right buttock, stage 4 (HC) AST (SGOT) Routine 06/15/2022 1:20 Osteomyelitis of Results for this PM TECHNICAL PUBLICATIONS MANAGER vertebra, sacral and procedu re are in sacrococcygeal region the re sults (HC) section. Pressure ulcer of right buttock, stage 4 (HC) SEDIMENTATION RATE Routine 06/15/2022 1:20 Osteomyelitis of Re sults for this PM TECHNICAL PUBLICATIONS MANAGER vertebra, sacral and procedu re are in sacrococcygeal region the re sults (HC) section. Pressure ulcer of right buttock, stage 4 (HC) CBC WITH AUTO Routine 06/15/2022 1:20 Osteomyelitis of Results for this DIFFERENTIAL PM TECHNICAL PUBLICATIONS MANAGER vertebra, sacral and procedu re are in sacrococcygeal region the re sults (HC) section. Pressure ulcer of right buttock, stage 4 (HC) CBC WITH AUTO Routine 06/08/2022 12:00 Results fo r this DIFFERENTIAL PM TECHNICAL PUBLICATIONS MANAGER procedure are i n the results section. CREATININE Routine 06/08/2022 12:00 Results for this PM TECHNICAL PUBLICATIONS MANAGER procedure are i n the results section. C-REACTIVE PROTEIN Routine 06/08/2022 12:00 Resul ts for this PM TECHNICAL PUBLICATIONS MANAGER procedure are i n the results section. BUN Routine 06/08/2022 12:00 Results for this PM TECHNICAL PUBLICATIONS MANAGER procedure are i n the results section. AST (SGOT) Routine 06/08/2022 12:00 Results for this PM TECHNICAL PUBLICATIONS MANAGER procedure are i n the results section. SEDIMENTATION RATE Routine 06/08/2022 12:00 Resul ts for this PM TECHNICAL PUBLICATIONS MANAGER procedure are i n the results section. CBC WITH AUTO Routine 06/08/2022 12:00 Results fo r this DIFFERENTIAL PM TECHNICAL PUBLICATIONS MANAGER procedure are i n the results section. SEDIMENTATION RATE Routine 06/01/2022 1:15 Osteomyelitis of Re sults for this PM TECHNICAL PUBLICATIONS MANAGER vertebra, sacral and procedu re are in sacrococcygeal region the re sults (HC) section. Pressure ulcer of right buttock, stage 4 (HC) CBC WITH AUTO Routine 06/01/2022 1:15 Osteomyelitis of Results for this DIFFERENTIAL PM TECHNICAL PUBLICATIONS MANAGER vertebra, sacral and procedu re are in sacrococcygeal region the re sults (HC) section. Pressure ulcer of right buttock, stage 4 (HC) CREATININE Routine 06/01/2022 1:15 Osteomyelitis of Results for this PM TECHNICAL PUBLICATIONS MANAGER vertebra, sacral and procedu re are in sacrococcygeal region the re sults (HC) section. Pressure ulcer of right buttock, stage 4 (HC) C-REACTIVE PROTEIN Routine 06/01/2022 1:15 Osteomyelitis of Re sults for this PM TECHNICAL PUBLICATIONS MANAGER vertebra, sacral and procedu re are in sacrococcygeal region the re sults (HC) section. Pressure ulcer of right buttock, stage 4 (HC) BUN Routine 06/01/2022 1:15 Osteomyelitis of Results for this PM TECHNICAL PUBLICATIONS MANAGER vertebra, sacral and procedu re are in sacrococcygeal region the re sults (HC) section. Pressure ulcer of right buttock, stage 4 (HC) AST (SGOT) Routine 06/01/2022 1:15 Osteomyelitis of Results for this PM TECHNICAL PUBLICATIONS MANAGER vertebra, sacral and procedu re are in sacrococcygeal region the re sults (HC) section. Pressure ulcer of right buttock, stage 4 (HC) CBC WITH AUTO Routine 06/01/2022 1:15 Osteomyelitis of Results for this DIFFERENTIAL PM TECHNICAL PUBLICATIONS MANAGER vertebra, sacral and procedu re are in sacrococcygeal region the re sults (HC) section. Pressure ulcer of right buttock, stage 4 (HC) CREATININE Routine 05/25/2022 2:07 Osteomyelitis of Results [...] Last 3 Months Results (ABNORMAL) SEDIMENTATION RATE (06/15/2022 1:20 PM TECHNICAL PUBLICATIONS MANAGER)Only the most recent of4 resultswithin the time period is included. [facility] Method Time Signature SEDIMENTATION RATE 66 (H) <20 mm/hr 06/15/2022 [place] 2:03 PM [facility] LABOR[facility] Specimen Anatomical Collection Method Collection Time Receive d Time (Source) Location / / Volume Laterality Blood BLOOD SPECIMEN / Client Collect / 06/15/2022 1:20 PM 1 08/15/2021 1:43 Unknown Unknown TECHNICAL PUBLICATIONS MANAGER PM TECHNICAL PUBLICATIONS MANAGER Alex Mata MD HEMATOLOGY Performing Organization Address City/State/ZIP Code Phon e Number [facility] [address] [place], [place] [id number] (ABNORMAL) CBC WITH AUTO DIFFERENTIAL (06/15/2022 1:20 PM TECHNICAL PUBLICATIONS MANAGER)Only the most recent of4 resultswithin the time period is included. [facility] Method Time Signature WHITE BLOOD 5.9 4.5 - 06/15/2022 [place] COUNT 11.0 1:57 PM [facility] thou/cu LABORATORY mm RED BLOOD COUNT 3.32 (L) 4.30 - 06/15/2022 [place] 5.90 1:57 PM [facility] mil/cu mm LABORATORY HEMOGLOBIN 9.2 (L) 13.5 - 06/15/2022 [place] 17.5 g/dL 1:57 PM [facility] HEMATOCRIT 30.6 (L) 37.0 - 06/15/2022 [place] 53.0 % 1:57 PM [facility] MCV 92 80 - 100 06/15/2022 [place] fL 1:57 PM [facility] MCH 27.7 26.0 - 06/15/2022 [place] 34.0 pg 1:57 PM [facility] MCHC 30.1 (L) 32.0 - 06/15/2022 [place] 36.0 g/dL 1:57 PM [facility] RDW 13.6 11.5 - 06/15/2022 [place] 15.5 % 1:57 PM [facility] PLATELET COUNT 313 140 - 440 06/15/2022 [place] thou/cu 1:57 PM [facility] mm LABORATORY MPV 7.9 6.5 - 06/15/2022 [place] 11.0 fL 1:57 PM [facility] % NEUT 65.2 % 06/15/2022 [place] 1:57 PM [facility] % LYMPH 19.7 % 06/15/2022 [place] 1:57 PM [facility] % MONO 7.6 % 06/15/2022 [place] 1:57 PM [facility] % EOS 7.0 % 06/15/2022 [place] 1:57 PM [facility] % BASO 0.5 % 06/15/2022 [place] 1:57 PM [facility] ABSOLUTE 3.8 1.7 - 7.0 06/15/2022 [place] NEUTROPHILS thou/cu 1:57 PM [facility] mm LABORATORY ABSOLUTE 1.2 0.9 - 2.9 06/15/2022 [place] LYMPHOCYTES thou/cu 1:57 PM [facility] mm LABORATORY ABSOLUTE 0.5 <0.9 06/15/2022 [place] MONOCYTES thou/cu 1:57 PM [facility] mm LABORATORY ABSOLUTE 0.4 <0.5 06/15/2022 [place] EOSINOPHILS thou/cu 1:57 PM [facility] mm LABORATORY ABSOLUTE 0.0 <0.3 06/15/2022 [place] BASOPHILS thou/cu 1:57 PM [facility] mm LABORATORY Specimen Anatomical Collection Method Collection Time Receive d Time (Source) Location / / Volume Laterality Blood BLOOD SPECIMEN / Client Collect / 06/15/2022 1:20 PM 1 08/15/2021 1:43 Unknown Unknown TECHNICAL PUBLICATIONS MANAGER PM TECHNICAL PUBLICATIONS MANAGER Alex Mata MD HEMATOLOGY Performing Organization Address City/Va Hospital/ZIP [facility] Phon e [facility] LABORATORY [address] [place] [address] BUN (06/15/2022 1:20 PM TECHNICAL PUBLICATIONS MANAGER)Only the most recent of4 resultswithin the time period is included. athologist Signature BUN 16 8 - 25 [facility]2022 [facility] mg/dL 2:07 PM [facility] Specimen Anatomical Collection Method Collection Time Receive d Time (Source) Location / / Volume Laterality Blood BLOOD SPECIMEN / Client Collect / 06/15/2022 1:20 PM 1 08/15/2021 1:43 Unknown Unknown TECHNICAL PUBLICATIONS MANAGER PM TECHNICAL PUBLICATIONS MANAGER Alex Mata MD CHEMISTRY Performing Organization Address City/Va Hospital/[facility] Phon e [facility] LABORATORY [address] [place] [address] (ABNORMAL) CREATININE (06/15/2022 1:20 PM TECHNICAL PUBLICATIONS MANAGER)Only the most recent of4 results within the time period is included. athologist Signature CREATININE 0.46 (L) 0.72 - 06/15/2022 [facility] 1.25 mg/dL 2:07 PM [facility] eGFR >90 >90 06/15/2022 [place] mL/min/1.7 2:07 PM [facility] 3m2 LABORATORY Comment: As of 2021, [...] Blood BLOOD SPECIMEN / Client Collect / 06/15/2022 1:20 PM 1 08/15/2021 1:43 Unknown Unknown TECHNICAL PUBLICATIONS MANAGER PM TECHNICAL PUBLICATIONS MANAGER Alex Mata MD CHEMISTRY Performing Organization Address City/Va Hospital/ZIP Code Phon e Number [facility] [address] [place] [address] (ABNORMAL) C-REACTIVE PROTEIN (06/15/2022 1:20 PM TECHNICAL PUBLICATIONS MANAGER)Only the most recent of4 resultswithin the time period is included. Analysis Performed At Patho logist Time Signature C-REACTIVE 5.95 (H) <0.50 06/15/2022 [facility] PROTEIN mg/dL 2:06 PM [facility] Specimen Anatomical Collection Method Collection Time Receive d Time (Source) Location / / Volume Laterality Blood BLOOD SPECIMEN / Client Collect / 06/15/2022 1:20 PM 1 08/15/2021 1:43 Unknown Unknown TECHNICAL PUBLICATIONS MANAGER PM TECHNICAL PUBLICATIONS MANAGER Alex Mata MD CHEMISTRY Performing Organization Address City/Va Hospital/ZIP Code Phon e Number [facility] [address] [place] [address] AST (SGOT) (06/15/2022 1:20 PM TECHNICAL PUBLICATIONS MANAGER)Only the most recent of4 resultswithin the time period is included. P athologist Signature AST (SGOT) 17 2 - 40 IU/L 06/15/2022 [facility] 2:08 PM [facility] Specimen Anatomical Collection Method Collection Time Receive d Time (Source) Location / / Volume Laterality Blood BLOOD SPECIMEN / Client Collect / 06/15/2022 1:20 PM 1 08/15/2021 1:43 Unknown Unknown TECHNICAL PUBLICATIONS MANAGER PM TECHNICAL PUBLICATIONS MANAGER Alex Mata MD CHEMISTRY Performing Organization Address City/Va Hospital/ZIP Code Phon e Number [facility] [address] [place] [address] EXTRA TUBE RED (05/25/2022 2:07 PM CDT) Specimen Anatomical Collection Method Collection Time Receive d Time (Source) Location / / Volume Laterality Blood BLOOD SPECIMEN / Client Collect / 05/25/2022 2:07 PM 1 07/25/2021 2:49 Unknown Unknown CDT PM CDT Alex Mata MD LABORATORY Performing Organization Address [facility] Phon e Number [facility] [address] [place] [address] EXTRA TUBE LIGHT GREEN (05/25/2022 2:07 PM CDT) Specimen Anatomical Collection Method Collection Time Receive d Time (Source) Location / / Volume Laterality Blood BLOOD SPECIMEN / Client Collect / 05/25/2022 2:07 PM 1 07/25/2021 2:49 Unknown Unknown CDT PM CDT Alex Mata MD LABORATORY Performing Organization Address [facility] Code Phon e Number [facility] [address] [place] [address] EXTRA TUBE LAVENDER (05/25/2022 2:07 PM CDT) Specimen Anatomical Collection Method Collection Time Receive d Time (Source) Location / / Volume Laterality Blood BLOOD SPECIMEN / Client Collect / 05/25/2022 2:07 PM 1 07/25/2021 2:49 Unknown Unknown CDT PM CDT Alex Mata MD LABORATORY Performing Organization Address [facility] Phon e [facility] LABORATORY [address] [place] [address] LAB TRACKING EVENT (05/18/2022 4:15 PM CDT) Specimen Anatomical Collection Method Collection Time Receive d Time (Source) Location / / Volume Laterality Other (Other) Client Collect / 05/18/2022 4:15 PM 04/24 5:18 Unknown CDT PM CDT Jimena Fleming MD LAB BILL ONLY Performing Organization Address City/Va Hospital/ZIP Code Phon e Number [facility] [address] [place] [address] LABORATORY-CENTRAL 2000 LABORATORY PATH TISSUE EXAM (05/17/2022 4:15 PM CDT) Component Value Ref Test Analysis Performed At [facility] gist Range Method Time Signature Case Report Pathology Report ?Case: [id number] ? 05/20/2022 [facility] Authorizing Provider: ??Jimena Higgins MD ?Collected: ? 05/17/2022 1615 ? 11:49 AM HEALTH Ordering Location: ? [facility] CENTRAL LAB ?Received: ?05/18/2022 1847 ? CDT LA BORZAKIYA-C Pathologist: ? Sweetie Daily MD ? ENTRAL [...] entirely in 1 cassette after decalcification. 05/20/2022 [facility] Description 11:49 AM HEALTH JAL 05/18/2022 CDT LABORATORY-C ENTRAL LABORATORY Microscopic The final diagnosis is based on microscopic examination of appropriate sections of all specimens. 05/20/2022 TAMIKO MEDINA Description 11:49 AM [facility] CDT LABORATORY-C ENTRAL LABORATORY Additional 05/20/2022 [facility] Information Interpreted at [facility], Central Laboratory - [address], [place] [address] 11:49 AM [facility] CDT LABORATORY-C ENTRDC LABORATORY Specimen Anatomical Collection Method Collection Time Receive d Time (Source) Location / / Volume Laterality Other (Bone 05/17/2022 4:15 PM 6:47 Biopsy) CDT PM CDT Jimena Fleming MD PATHOLOGY/CYTOLOGY Performing Organization Address City/Va Hospital/[facility] Phon e Number [facility] [address] [place] [address] LABORATORY-CENTRAL 2000 LABORATORY (ABNORMAL) REFERRAL ID/SUSC,NONURINE (05/16/2022 9:56 PM CDT) [facility] gist Method Time Signature CULTURE RESULT (A) 05/21/2022 [facility] 11:43 AM CDT LABORATORY-CE NTRAL LABORATORY CULTURE Streptococcus 05/21/2022 [facility] anginosus 11:43 AM CDT LABORATORY-CE NTRAL LABORATORY [...] Organization Address City/State/ZIP Code Phon e Number [facility] [address] [place] [address] LABORATORY-CENTRAL 1999 LABORATORY (ABNORMAL) REFERRAL ID ONLY,NONURINE (05/16/2022 9:00 AM CDT) [facility] Method Time Signature CULTURE RESULT (A) [facility] LABORATORY-CE NTRAL LABORATORY CULTURE Streptococcus 05/19/2022 [facility] anginosus 3:00 PM CDT LABORATORY-CE NTRAL LABORATORY Specimen Anatomical Collection Method Collection Time Receive d Time (Source) Location / / Volume Laterality Other SPECIMEN FROM Client Collect / 05/16/2022 9:00 AM 04/24 WOUND / Unknown Unknown CDT 10:38 PM CDT Yamile Conway NP MICROBIOLOGY Performing Organization Address City/State/ZIP Code Phon e Number [facility] [address] [place] [address] LABORATORY-CENTRAL 1999 LABORATORY from Last 3 Months [...] 12 months since positive culture): resides in acute/long-term care, receiving hemodialysis, has chronic open wounds/skin damage, has long-te rm percutaneous indwelling medical devic es Exclusions for nares collection (if <12 months since positive culture) include all of the previous exclusions plus patients on antibiotics 7 days prior to collection Insurance Payer Benefit Plan / Subscriber ID Effective Dates Phone Addre ss Type Group WC WORKERS COMP WESTERN [id number] 1989-Prese C/O [employer] [address] [place] [address] WC WORKERS COMP WC WESTERN [id number] 1989-Prese C/O [employer] [address] [place] [address] MEDICARE PART A - MEDICARE PART [id number] 1991-Presen ATTN: CLAIMS HB USE ONLY A HB ONLY t [address] [place] [address] [facility] MR [id number] 2020-Presen [address] [address] [place] [address] [employer] Workers Comp Self 1955 [id number] [place] [id number] [employer] Workers Comp Self 1955 [id number] [employer] [place] [id number] Khan[employer] Rene Personal/Family Self 1955 [id number] [employer] [address] [place] [id number] Advance Directives Latest Code Status on File Code Status Date Activated Date Inactivated Comments Full Code 03/05/2020 6:59 AM 03/09/2020 8:07 PM Code Status Discussion: Not Discussed Full Code 04/25/2016 3:57 PM 05/10/2016 8:47 PM Full Code 2016 6:44 AM 03/14/2016 5:37 PM Full Code 12/16/2015 12:49 PM 12/25/2015 1:24 PM Full Code 12/15/2015 3:46 PM 12/16/2015 12:49 PM Care Teams Railroad Watchman Relationship Specialty Start Date End Date Alex Mata MD PCP - General Family Practice 02/04/201999 [place] [address] Ana Mayers Nurse Practitioner 03/02/[address] [place] [id number]
--- OUTSIDE RECORDS SUMMARY | 2022-06-20 13:02 | XMS_ITS ---
:1955 Author Care Team Providers Name Role Phone CHETNA MERAZ MD Primary Care Provider [phone] ANN MCLAININA Trading Specialist [phone] Allergies Code Code System Name Reaction Severity [...] MOUTH ONCE A DAY FOR 10 DAYS tudidxgg-akyaynglq-clkwdkhjq 3.5 mg-10,000 unit/mL-1 % ear d rops,susp [...] Name Performed by ? 09/27/2021 US, Kidney [facility] Radiology Department [address] [place] [address] (Work Place) Results Lab Results Date Name Specimen Result Interpretation Description Value Range Status Address ? 05/06/2021 Culture, BLDV ABNORMAL Final Report microbiology ? Final [place] [facility] results [facility] Lab: [address], [place] 05/06/2021 Urinalysis ? No ? ? ? , Dipstick observation recorded. 02/18/2021 Culture, UR ABNORMAL Final Report microbiology ? Final [place] U[place] results [facility] [place] Lab: [address], [place] ? Urinalysis ? Color-Status Yellow ? ? [...] ? ? ? Sp 1.015 ? ? [place]-Statu s ? ? ? Nitrates-Sta positive ? ? tus ? ? ? Blood-Status Trace ? Leuko-Status Large ? ? Past Encounters 09/27/2021 Neurogenic Bladder; Spinal Cord Injury; Spasm of Bladder; Recurrent Urinary Tract Infection Jono Pagan MD: [address] [place] [address], Ph. 05/06/2021 Abnormal Urine Jono Pagan MD: [address] [place] [address], Ph. 02/18/2021 Neurogenic Bladder; Spinal Cord Injury; Spasm of Bladder; Recurrent Urinary Tract Infection; Acute Urinary Tract Infection Jono Pagan MD: [address] [place] [address], Ph. Social History Tobacco Smoking Status Former [...]
--- OUTSIDE RECORDS SUMMARY | 2022-06-20 13:02 | XMS_ITS | Encounter Summary ---
:1955 Author Organization [facility] Address [address] [place] [address]. [place] [address] Phone Care Team Providers Name Role Phone Unavailable Primary Care Provider Unavailable Encounter Details Date Type Department Care Team Description 10/12/2001 Orders Only [facility] [place] [address] [place], [place] [address] Social History Tobacco Use Types Packs/Day Years Used Date Smoking Tobacco: Never Assessed Sex Assigned at Date Recorded Not on file documented as of this encounter Plan of Treatment Not on filedocumented as of this encounter Procedures Procedure Name Priority Date/Time Associated Diagnosis Comme nts ULT KIDNEYS Routine 10/12/2001 11:22 AM Results for this COMPLETE JAVA LEAD DEVELOPER procedure are i n the results section. documented in this encounter Results ULT KIDNEY COMPLETE (10/12/2001 11:22 AM JAVA LEAD DEVELOPER) Anatomical Region Laterality Modality Abdomen Ultrasound Specimen (Source) Anatomical Collection Method Collection Time Re ceived Time Location / / Volume Laterality 10/12/2001 11:22 AM JAVA LEAD DEVELOPER Impressions 10/15/2001 4:06 PM JAVA LEAD DEVELOPER : 1. ??NO RENAL STONES IDENTIFIED. 2. ??MILD CORTICAL THINNING BILATERALLY. ??THIS MAY INDICATE MEDICAL RENAL DISEASE. I have personally reviewed the image(s) and initial interpretation, and I agree with the findings. ASI END: RELEASE RESULTS: (Y) END RESULT: IMPRESSION Narrative 10/15/2001 4:06 PM JAVA LEAD DEVELOPER Final Report EXAM: ?? RENAL US: [place] KIDNEYS ?- ??10/12/2001 11:22AM SUSPECTED PATHOLOGY: SYMPTOMS [...] the original. Final Report EXAM: RENAL US: [place]IDNEYS - 002 11:22AM SUSPECTED PATHOLOGY: SYMPTOMS [...]
--- OUTSIDE RECORDS SUMMARY | 2022-06-20 13:02 | XMS_ITS | Encounter Summary ---
:1955 Author Organization [facility] Address [address] [facility] [place] [address] Phone Care Team Providers Name Role Phone Unavailable Primary Care Provider Unavailable Encounter Details Date Type Department Care Team Description 01/29/2001 Orders Only [facility] Sameera Frances MD [address] [facility] 701 [place], [place] [address] 0 Mail Code P5 [place] [address] (Wo rk) Social History Tobacco [...] Results URINE CX (01/29/2001 3:37 PM CDT) [facility] Method Time Signature Urine Cult [facility] Test Name ? Collected on --------- [...] PM 01/31 CDT 10:25 AM CDT Narrative [facility] - 01/31/2001 10:25 AM CDT Ordered by an unspecified provider. Provider Unknown LAB MICROBIOLOGY Performing Organization Address City/State/ZIP Code Phon e Number [facility] [place] [address] LAB URINALYSIS, TOTAL (01/29/2001 3:37 PM CDT) [facility] Method Time Signature Color YELLOW YELLOW [facility] Appearance CLEAR CLEAR [facility] Urine Glucose NEGATIVE NEGATIVE [facility] Bili UA NEGATIVE NEGATIVE [facility] Ketones NEGATIVE NEGATIVE [facility] Specific Theodore 1.010 1.003 - [facility] 1.030 Blood Ur TRACE Neg-Trace [facility] PH Urine 6.5 5.0 - 7.0 [facility] Protein Ur NEGATIVE NEGATIVE [facility] Urobilinogen 0.2 0.2 - 1.0 [facility] EU/dL Nitrite Ur NEGATIVE NEGATIVE [facility] Leuk Est TRACE Neg-Trace [facility] Microscopic [facility] WBC Ur 0 - 5 0 - 5 [facility] Trans Epith 1+ [facility] Sperm 1+ [facility] Specimen Anatomical Collection Method Collection Time Receive d Time (Source) Location / / Volume Laterality Urine 01/29/2001 3:37 PM 1 4:56 CDT PM CDT Narrative [facility] - 01/29/2001 4:56 PM CDT Ordered by an unspecified provider. Provider Unknown LABORATORY Performing Organization Address City/State/ZIP Code Phon e Number [facility] [place] [facility] [place] [address] LAB documented in this encounter Visit Diagnoses Not on filedocumented in this encounter
--- OUTSIDE RECORDS SUMMARY | 2022-06-20 13:02 | XMS_ITS | Encounter Summary ---
:1955 Author Organization [facility] Address [address] [place] [address] Phone Care Team Providers Name Role Phone [...] 09/19/2001 5:05 PM Re sults for this NIPPLE THREADER procedure are i n the results section. PSA Routine 09/19/2001 5:05 PM Results f or this DIAGNOSTIC(PROSTATE NIPPLE THREADER procedur e are in SPE AG the results section. CREATININE, SERUM Routine 09/19/2001 5:05 PM Resu lts for this NIPPLE THREADER procedure are i n the results section. documented in this encounter Results PSA DIAGNOSTIC(PROSTATE SPE AG (09/19/2001 5:05 PM NIPPLE THREADER) athologist Signature PSA Diagnostic 0.5 0.00 - 4.00 [facility] LAB NG/ML Specimen Anatomical Collection Method Collection Time Receive d Time (Source) Location / / Volume Laterality Blood 09/19/2001 5:05 PM 2 5:26 NIPPLE THREADER PM NIPPLE THREADER Omar Savage MD LABORATORY Performing Organization Address City/State/ZIP Code Phon e Number [facility] LAB BUN (UREA NITROGEN) (09/19/2001 5:05 PM NIPPLE THREADER) athologist Signature BUN 13 5 - 25 MG/DL [facility] Specimen Anatomical Collection Method Collection Time Receive d Time (Source) Location / / Volume Laterality Blood 09/19/2001 5:05 PM 2 5:26 NIPPLE THREADER PM NIPPLE THREADER Omar Savage MD LABORATORY Performing Organization Address City/State/ZIP Code Phon e Number [facility] LAB CREATININE, SERUM (09/19/2001 5:05 PM NIPPLE THREADER) P athologist Signature Creatinine 0.5 0.5 - 1.4 [facility] MG/DL Specimen Anatomical Collection Method Collection Time Receive d Time (Source) Location / / Volume Laterality Blood 09/19/2001 5:05 PM 2 5:26 NIPPLE THREADER PM NIPPLE THREADER Omar Savage MD LABORATORY Performing Organization Address City/State/ZIP Code Phon e Number [facility] LAB documented in this encounter Visit Diagnoses Not on filedocumented in this encounter
--- OUTSIDE RECORDS SUMMARY | 2022-06-20 13:02 | XMS_ITS | Encounter Summary ---
:1955 Author Organization [facility] Address [address] [place] [address] Phone Care Team Providers Name Role Phone Unavailable Primary Care Provider Unavailable Encounter Details Date Type Department Care Team Description 07/03/1995 Orders Only [facility] XRAY 701 [place], [place] [address] Social History Tobacco Use Types Packs/Day Years Used Date Smoking Tobacco: Never Assessed Sex Assigned at Date Recorded Not on file documented as of this encounter Plan of Treatment Not on filedocumented as of this encounter Procedures Procedure Name Priority Date/Time Associated Diagnosis Comme nts XR COCCYX AP & LAT Routine 07/03/1995 2:10 PM Res ults for this BUNGY JUMP MASTER procedure are i n the results section. documented in this encounter Results XR COCCYX AP & LAT (07/03/1995 2:10 PM BUNGY JUMP MASTER) Anatomical Region Laterality Modality Lumbar Spine Computed Radiography Specimen (Source) Anatomical Collection Method Collection Time Re ceived Time Location / / Volume Laterality 07/03/1995 2:10 PM BUNGY JUMP MASTER Impressions 07/05/1995 12:33 PM BUNGY JUMP MASTER : ??Please see Sacrum report dated 07/03/95 1410. ASI END: RELEASE RESULTS: (Y) END RESULT: IMPRESSION Narrative 07/05/1995 12:33 PM BUNGY JUMP MASTER Final Report EXAM: ?? COCCYX AP & [...]
--- OUTSIDE RECORDS SUMMARY | 2022-06-20 13:02 | XMS_ITS | Encounter Summary ---
:1955 Author Organization [facility] Address [address] [place] [address] Phone Care Team Providers Name Role Phone Unavailable Primary Care Provider Unavailable Encounter Details Date Type Department Care Team Description 04/03/1997 Orders Only [facility] [place] [place] [address] [place], [place] [address] Social History Tobacco Use Types [...]
== END 2022-06-20 12:57 | disposition home or self-care (01) ==
LOC: WOUND 12:56
PROVIDERS: PCP Family Medicine; Visit Provider Physician Assistant Surgical
DX: L89.514 Pressure ulcer of right ankle, stage 4 (principal); L89.894 Pressure ulcer of other site, stage 4; L89.154 Pressure ulcer of sacral region, stage 4; L89.893 Pressure ulcer of other site, stage 3; L89.519 Pressure ulcer of right ankle, unspecified stage; L89.614 Pressure ulcer of right heel, stage 4
CPT/HCPCS: 11042; 11043; 11044; 11046

== ENCOUNTER 2022-06-27 12:45 | Outpatient (CLI) | payer OTHER, MEDICARE, SELFPAY ==
--- OUTSIDE RECORDS SUMMARY | 2022-06-27 12:47 | XMS_ITS | Encounter Summary ---
:1955 Author Organization [facility] Address [address] [place] [address] Phone Care Team Providers Name Role Phone [...] on filedocumented in this encounter Care Teams Avionics Shop Supervisor Relationship Specialty Start Date End Date Lila Clay, PT Physical Therapist Physical Therapy 04/05/21 [address] [place] [address] documented as of this encounter
--- OUTSIDE RECORDS SUMMARY | 2022-06-27 12:47 | XMS_ITS | Clinical Summary ---
:1955 Author Organization [facility] Address [address] [place] [address] Phone Care Team Providers Name Role Phone Lila Clay PT Unavailable Source Comments [facility] [employer] is fully rolled out on [employer]. Last update 12/26/08.[facility] Allergies Active Allergy Reactions Severity Noted Date [...] Comments Blood Pressure 135/74 09/02/2021 8:12 AM INTERNAL CORROSION SPECIALIST Pulse 72 09/02/2021 8:12 AM INTERNAL CORROSION SPECIALIST Temperature 36.2 ??C (97.1 ??F) 09/15/2016 8:09 AM INTERNAL CORROSION SPECIALIST Respiratory Rate 14 04/20/2010 1:39 PM CDT [...] Phone Address Typ e / Group Dates [facility] [id number] 1990-Pre [phone] [address] Work Comp [employer] sent [address] [employer] [place] [address] [facility] COMPLETE [id number] 2020-Pres [address] [facility] (MEDICARE ent [id number] Managed Care ADVANTAGE) [place] [address] [id number] Workers Comp Employer 1955 % Cb ert (Home) [place] [id number] [address] S[address] [id number] Care Teams Filter Filler Relationship Specialty Start Date End Date Lila Clay, PT Physical Therapist Physical Therapy 04/05/21 [address] [place] [address]
--- OUTSIDE RECORDS SUMMARY | 2022-06-27 12:48 | XMS_ITS | Encounter Summary ---
:1955 Author Organization [facility] Address [address] [place] [address] Phone Care Team Providers Name Role Phone Provider, Outside Primary Care Provider Unavailable Reason for Visit Reason Onset Date Comments Refill Request 10/06/2016 re: Macrodantin Encounter Details Date Type Department Care Team Description 10/06/2016 Telephone [facility] Divya Avendano Refi ll Request (re: Yordy ASH Macrodantin) [address] , [address] [place], [place] [address] [place], [place] [phone] Social History Tobacco Use Types Packs/Day Years [...] on filedocumented in this encounter Care Teams Industrial Technologist Relationship Specialty Start Date End Date Provider, Outside PCP - General 03/13/09 10/22/18 [place] [address] documented as of this encounter
--- OUTSIDE RECORDS SUMMARY | 2022-06-27 12:48 | XMS_ITS | Encounter Summary ---
:[address] [facility] Address 1 [place] [address] Phone Care Team Providers Name Role Phone Unavailable Primary Care Provider Unavailable Reason for Visit Reason Comments Other Encounter Details Date Type Department Care Team Description 03/27/2020 Refill [facility] Monty Garcia MD Other Urology Clinic [address] [place] [id number] [place] [address] [phone] Social History Tobacco Use Types Packs/Day Years [...]
--- OUTSIDE RECORDS SUMMARY | 2022-06-27 12:48 | XMS_ITS | Encounter Summary ---
:1955 Author Organization [facility] Address [address] [place] [address] Phone Care Team Providers Name Role Phone Provider, Outside Primary Care Provider Unavailable Reason for Visit Reason Onset Date Comments Refill Request 07/05/2016 Encounter Details Date Type Department Care Team Description 07/05/2016 Refill [facility] [place] [facility] Divya Caraballo RN Refill Request [address] [facility] [place], [place] [address] 4 [place] [address] Social History Tobacco Use Types Packs/Day Years [...] NOS documented in this encounter Care Teams Ups Driver Relationship Specialty Start Date End Date Provider, Outside PCP - General 03/13/09 10/22/18 [place] [address] documented as of this encounter
--- OUTSIDE RECORDS SUMMARY | 2022-06-27 12:48 | XMS_ITS | Encounter Summary ---
:1955 Author Organization [facility] Address [address] [place] [address] Phone Care Team Providers Name Role Phone Hallie Clay PT Unavailable Reason for Referral Prior Authorization (Routine) - Closed Specialty Diagnoses / Procedures Referred By Contact Refer red To Contact Physical Therapy / Diagnoses Quadriplegia () At high risk for skin breakdown Impaired mobility Provider, Outside Hallie Clay, PHYSICAL MEDICINE AND Procedures PT TREATMENT PLAN OUTSIDE PROVIDER PT [facility] [place], [place] [id number] [place] [address] Phone: Fax: Referral ID Status Reason Start Date Expiration Date Visits Requ ested Visits Authorized [id number] Closed 05/05/2021 01/20/2022 12 12 OGRAPHIC PRESS OPERATOR APPRENTICE Reason for Visit Prior Authorization (Routine) - Closed Specialty Diagnoses / Procedures Referred By Contact Refer red To Contact Physical Therapy / Diagnoses Quadriplegia () At high risk for skin breakdown Impaired mobility Provider, Outside Hallie Clay, PHYSICAL MEDICINE AND Procedures PT TREATMENT PLAN OUTSIDE PROVIDER [facility] [place] [id number] [place] [address] Phone: Fax: Referral ID Status Reason Start Date Expiration Date Visits Requ ested Visits Authorized [id number] Closed 05/05/2021 01/20/2022 12 12 Encounter Details Date Type Department Care Team Description 07/14/2021 Hospital Encounter Clinic & Specialty Provider, [place] [address] Center Mechanical Systems Design Engineer apHallie Hopkins, PT [address] [address] Social History Tobacco Use Types [...] Signature: Date: 07/14/2021 Date: Please return to: [facility] Physical Therapy [address] [address] RECERTIFICATION SUMMARY New Recertification period: 07/14/21 to [...] Recent Hospitalization:??None?? Referring Provider:?? MD Yamile Alves, INTERSTATE BUS DRIVER ?? Current Precautions/Contraindications:?At high risk for skin breakdown, s/p flap surgery, currentpressure injuries on feet [facility] Export Clerk:?no ?? Patient gave two identifiers for Check 2 for Safety Total Treatment Time: 55 Min ?? Pain: No significant complaints during session ?? S: Pt presents to his PT session in his [facility], independently. Also present: Matthew Ricketts/[employer]. 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 ?? O: [Billable Units/Time] ?? (37075) Wheelchair Management: 55 min Pressure mapping completed [...] up with B UE's for having pressure glue reel operator placed over, completed with CGA) +Sitting [...] Recommend removing foam sole, and placing nonskid surface/qa automation engineer bottom instead (lowest height possible) 4) Inside [...] - thank you. Hallie Clay, PT ATP [phone] [email or web address] Printed above information for patient to bring with to his ad copy writer as well as to his Ortho MD [...] stabilizer? Hallie Clay, PT ATP [place] License: #[id number] Pager: [phone] Office: [phone] ? Recertification Assessment of need for continued skilled physical therapy interventions: Patient continues to make steady progress toward short term and usp goals which have been updated to reflect [...] Specific Question: Schedule with: Answer: HALLIE CLAY [[id number]] Order Specific Question: Number of Visits patient [...] Specific Question: Schedule with: Answer: HALLIE CLAY [[id number]] Order Specific Question: Number of Visits patient should be scheduled for? Answer: 1 Order Specific Question: Modalities and Procedures Answer: Procedures Order Specific Question: Procedure Answer: Functional Activities Order Specific Question: Procedure Answer: Neuromuscular Re-education Order Specific Question: Procedure Answer: Self Care/Home Management/ADL Order Specific Question: Procedure Answer: Wheelchair Management and Training Hallie Clay PT ATP Date [place] License: #[id number] Pager: [phone] Office: [phone] OGRAPHIC PRESS OPERATOR APPRENTICE documented in this encounter Plan of Treatment Not on filedocumented as of this encounter Visit Diagnoses Diagnosis Quadriplegia () Quadriplegia, unspecified At high risk for skin breakdown Other specified conditions influencing h ealth status Impaired mobility Other ill-defined conditions documented in this encounter Care Teams Land Checker Relationship Specialty Start Date End Date Hallie Clay PT Physical Therapist Physical Therapy 04/05/[address] [place] [address] documented as of this encounter
--- OUTSIDE RECORDS SUMMARY | 2022-06-27 12:48 | XMS_ITS | Encounter Summary ---
:1955 Author Organization [facility] Address 1 [place] [address] Phone Care Team Providers Name Role Phone Unavailable Primary Care Provider Unavailable Encounter Details Date Type Department Care Team Description 08/20/2020 Immunization [facility] Jonathan Chu MD [address] [address] COVID-19; [address] Nurse, [facility] Vaccine [address] [place] [address] Need for vaccination [place], [place] [address] Social History Tobacco Use Types [...] with No / Unsure 08/20/2020 3:15 PM STENOGRAPHER [employer] someone who was confirmed or suspected to have Coronavirus / COVID-19? documented as of this encounter Plan of Treatment Not on filedocumented as of this encounter Visit Diagnoses Diagnosis COVID-19 Need for vaccination Need for prophylactic vaccination and in oculation against unspecified single disease documented in this encounter
--- OUTSIDE RECORDS SUMMARY | 2022-06-27 12:48 | XMS_ITS | Encounter Summary ---
:1955 Author Organization [facility] Address [address] [place] [address] Phone Care Team Providers Name Role Phone Provider, Outside Primary Care Provider Unavailable Encounter Details Date Type Department Care Team Description 01/02/2018 Nurse Triage Clinic & Specialty Center Farida Dueñas, offshore diver Clinic [address] [address] [place], [place] [address] Social History Tobacco Use Types [...] filedocumented in this encounter Care Teams Automotive Production Worker Relationship Specialty Start Date End Date Provider, Outside PCP - General 03/13/09 10/22/18 [place] [address] documented as of this encounter
--- OUTSIDE RECORDS SUMMARY | 2022-06-27 12:48 | XMS_ITS | Encounter Summary ---
:1955 Author Organization [facility] Address [address] [place] [address] Phone Care Team Providers Name Role Phone Lila Clay PT Unavailable Reason for Visit Reason Onset Date Comments Prior Authorization For Medications 09/03/2021 Boto x (onabotulinumtoxinA) Encounter Details Date Type Department Care Team Description 09/03/2021 Pharmacy Prior [facility] P1 Pharmacy Sakshi Mcmanus, Authorization [address] [facility] PharmD [id number] 701 [place], [place] [address] [place], [place] [phone] Social History Tobacco Use Types Packs/Day Years [...] the patient has active primary coverage through [facility] MEDICARE ADVANTAGE ([facility]). [facility] does NOT require prior authorization for BOTOX when it is given in the clinic/infusion center and billed on the medical claim (buy and bill). IMPORTANT - READ BELOW However, [facility] reimburses BOTOX only for select designated ICD-10/Diagnosis Codes. Based on review of the patient's chart, please (continue to) use the following COVERED diagnosis code for the visits in which the patient will receive BOTOX: - G82.50 or G82.54 Quadriplegia Update 01/27/2022 - Unable to get response from [employer]. Per 10/21/2021 note appears patient was going [...] filedocumented in this encounter Care Teams Commercial Service Technician Relationship Specialty Start Date End Date Lila Clay, PT Physical Therapist Physical Therapy 04/05/[address] [place] [address] documented as of this encounter
--- OUTSIDE RECORDS SUMMARY | 2022-06-27 12:48 | XMS_ITS | Encounter Summary ---
:1955 Author Organization [facility] Address [address] [place] [address] Phone Care Team Providers Name Role Phone Provider, Outside Primary Care Provider Unavailable Reason for Visit Reason Comments Follow-up NEUROGENIC BLADDER Encounter Details Date Type Department Care Team Description 09/15/2016 Office Visit [facility] [place] [facility] Monty Garcia Neur ogenic bladder Yordy FALCON (Primary Dx) [address] [place] [address] [address] [place], [place] [address] [phone] Social History Tobacco Use Types Packs/Day Years [...] Comments Blood Pressure 129/74 09/15/2016 8:09 AM DRESS FITTER Pulse 75 09/15/2016 8:09 AM DRESS FITTER Temperature 36.2 ??C (97.1 ??F) 09/15/2016 8:09 AM DRESS FITTER Respiratory Rate - - Oxygen Saturation - [...] fevers. Patient has had several admissions at [facility] for decubitus ulcers in the last [...] MD, 09/15/2016 9:14 AM Urology Staff Pager: [phone] S FITTER documented in this encounter Plan of Treatment Not on filedocumented as of this encounter Visit Diagnoses Diagnosis Neurogenic bladder - Primary Neurogenic bladder, NOS documented in this encounter Care Teams Doll Surgeon Relationship Specialty Start Date End Date Provider, Outside PCP - General 03/13/09 10/22/18 [place] [address] documented as of this encounter
--- OUTSIDE RECORDS SUMMARY | 2022-06-27 12:48 | XMS_ITS | Encounter Summary ---
:1955 Author Organization [facility] Address 1 [place] [address] Phone Care Team Providers Name Role Phone Hallie Clay PT Unavailable Encounter Details Date Type Department Care Team Description 05/05/2021 Hospital Encounter Clinic & Specialty Alex Mata [address] [place] [address] [place] [address] Center Manager Family apy Hallie Clay, PT [address] [address] [address] Social History Tobacco Use Types [...] Provider: Dr. Alex Mata, MD Yamile Conway, LOSS PREVENTION LEADER Current Precautions/Contraindications: At high risk for skin breakdown, s/p flap surgery, current pressure injuries on feet [facility] Edge Trimmer: no DIAGNOSIS Patient Active Problem List Diagnosis [...] prefer to work is BLAN[employer]ITA [employer]. The vendor is not present during today's evaluation. 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 He has utilized a manual wheelchair as his primary means of mobility since then. He has a significant pressure injury history, including on his sacral area and feet. He received his current MWC through [employer] on 10/06/20. SUBJECTIVE Patient Complaints: I just [...] Function: Randy will cont to use his [facility] and rehab accessories to complete all MRADL's, [...] independently (with hand controls) while seated in [facility]) Does it fold/disassemble for transportation?: Yes Is [...] Flexion Elbow Extension Wrist Flexion Wrist Extension Professor Of Chemical Engineering Using BERNY hand dynamometer Lower Extremity Right MMT Left MMT WFL 0/5 0/5 Hip Flexion Hip Extension Hip Abduction Knee Flexion Knee Extension Dorsiflexion Inversion Eversion Plantar Flexion Great toe extension Normative wordpress developer strength values for Berny dynamometer for clinical [...] the wheelchair/mobility device?: Yes Wheelchair Management/Training (CPT 05108): 15 min during session(s) Pressure mapping completed [...] Specific Question: Schedule with: Answer: HALLIE CLAY [[id number]] Order Specific Question: Number of Visits patient [...] conditions documented in this encounter Care Teams Elementary Summer School Teacher Relationship Specialty Start Date End Date Hallie Clay, PT Physical Therapist Physical Therapy 04/05/21 [address] [place] [address] documented as of this encounter
--- OUTSIDE RECORDS SUMMARY | 2022-06-27 12:48 | XMS_ITS | Encounter Summary ---
:1955 Author Organization [facility] Address [address] [place] [address] Phone Care Team Providers Name Role Phone Provider, Outside Primary Care Provider Unavailable Reason for Visit Reason Comments Other Encounter Details Date Type Department Care Team Description 05/22/2016 Refill [facility] U[facility] Monty Morales MD Other [address] [facility] [address] 4 [place] [address] [phone] (Wo rk) Social History Tobacco Use Types [...] received in Urology Clinic from the pt's [facility], for propantheline and nitrofurantoin. Records [...] NOS documented in this encounter Care Teams Meat Slicer Relationship Specialty Start Date End Date Provider, Outside PCP - General 03/13/09 10/22/18 [place] [address] documented as of this encounter
--- OUTSIDE RECORDS SUMMARY | 2022-06-27 12:48 | XMS_ITS | Encounter Summary ---
:1955 Author Organization [facility] Address [address] [place] [address] Phone Care Team Providers Name Role Phone Provider, Outside Primary Care Provider Unavailable Reason for Visit Reason Onset Date Comments Medication Problem 01/10/2018 propantheline Encounter Details Date Type Department Care Team Description 01/10/2018 Nurse Triage Clinic & Specialty Monty Garcia, [facility] (propantheline) [address] [place] [address] [place] [address]40 4 [place], [place] [phone] [address] Social History Tobacco Use Types Packs/Day Years [...] to me for years A-upon review of [facility] is was found that Dr Garcia has [...] or severe? n/a Protocols used: MEDICATION QUESTION [id number] documented in this encounter Plan of Treatment Not on filedocumented as of this encounter Visit Diagnoses Not on filedocumented in this encounter Care Teams Yield Loss Inspector Relationship Specialty Start Date End Date Provider, Outside PCP - General 03/13/09 10/22/18 [place] [address] documented as of this encounter
--- OUTSIDE RECORDS SUMMARY | 2022-06-27 12:48 | XMS_ITS | Encounter Summary ---
:1955 Author Organization [facility] Address [address] [place] [address] Phone Care Team Providers Name Role Phone Lila Clay PT Unavailable Reason for Visit Prior Authorization (Routine) - Closed Specialty Diagnoses / Procedures Referred By Contact Refer red To Contact Physical Therapy / Diagnoses Quadriplegia () At high risk for skin breakdown Impaired mobility Provider, Outside Lila Clay, PHYSICAL MEDICINE AND Procedures PT TREATMENT PLAN OUTSIDE PROVIDER PT REHAB [address] [address] Phone: Fax: Referral ID Status Reason Start Date Expiration Date Visits Requ ested Visits Authorized [id number] Closed 05/05/2021 01/20/2022 12 12 Encounter Details Date Type Department Care Team Description 08/11/2021 Hospital Encounter Clinic & Specialty Provider, [place] [address] No Show Center Casino Investigator apy Lila Clay, PT [address] [place] [address]40 Social History Tobacco Use Types Packs/Day [...] request, with this therapist. Lila Clay PT [facility] License: #[id number] Pager: [phone] Office: [phone] ONNEL QUALITY ASSURANCE AUDITOR documented in this encounter Plan of Treatment Not on filedocumented as of this encounter Visit Diagnoses Not on filedocumented in this encounter Care Teams Broadcast Correspondent Relationship Specialty Start Date End Date Lila Clay, PT Physical Therapist Physical Therapy 04/05/21 [address] [place] [address] documented as of this encounter
--- OUTSIDE RECORDS SUMMARY | 2022-06-27 12:48 | XMS_ITS | Encounter Summary ---
:1955 Author Organization [facility] Address [address] [place] [address] Phone Care Team Providers Name Role Phone Provider, Outside Primary Care Provider Unavailable Reason for Visit Reason Onset Date Comments Refill Request 12/27/2017 propantheline Medication Refill 01/08/2018 propantheline Encounter Details Date Type Department Care Team Description 12/27/2017 Refill Clinic & Specialty Monty Garcia MD Refill Request Center Urology Clini c [address] [facility] P5 (propantheline); [address] Medication [place]ill [place], [place] [phone] (propantheline) [phone] (Wo rk) Social History Tobacco Use Types [...] generic message for pt to call the [facility] and ask for a RN. [...] chart- no MITCHELL on file. Wale Russell sql report writer does have message to pass along, but no MITCHELL in the chart and cannot share info due to HIPPA. Charlene Russell said she understood. She requested we call Khanh and let him know the response. Elementary School Registrar called Khanh and no answer. Left message [...] Center 02/01/2018 2:00 PM Monty Garcia MD [facility] UROLOGY [facility] Special documented in this encounter Plan of Treatment Not on filedocumented as of this encounter Visit Diagnoses Not on filedocumented in this encounter Care Teams Financial Sales Consultant Relationship Specialty Start Date End Date Provider, Outside PCP - General 03/13/09 10/22/18 [place] [address] documented as of this encounter
--- OUTSIDE RECORDS SUMMARY | 2022-06-27 12:48 | XMS_ITS | Encounter Summary ---
:1955 [address] [facility] Address [address] [place] [address] Phone Care Team Providers Name Role Phone Provider, Outside Primary Care Provider Unavailable Encounter Details Date Type Department Care Team Description 02/05/2016 Orders Only [facility] Urology Clinic Monty Garcia, Neur ogenic bladder Yordy FALCON (Primary Dx) [address], [address] [facility] P5 [address] [place], [place] [phone] Social History Tobacco Use Types Packs/Day Years [...] NOS documented in this encounter Care Teams Pants Cutter Relationship Specialty Start Date End Date Provider, Outside PCP - General 03/13/09 10/22/18 [place] [address] documented as of this encounter
--- OUTSIDE RECORDS SUMMARY | 2022-06-27 12:48 | XMS_ITS | Encounter Summary ---
:[address] [facility] Address [address] [place] [address] Phone Care Team Providers Name Role Phone [...] with No / Unsure 08/20/2020 3:15 PM CIPHER EXPERT someone who was confirmed or suspected to have Coronavirus / COVID-19? documented as of this encounter Plan of Treatment Not on filedocumented as of this encounter Visit Diagnoses Not on filedocumented in this encounter
--- OUTSIDE RECORDS SUMMARY | 2022-06-27 12:48 | XMS_ITS | Encounter Summary ---
:1955 Author Organization [facility] Address [address] [place] [address] Phone Care Team Providers Name Role Phone Lila Clay PT Unavailable Reason for Visit Reason Comments Referral Consult/Test/Treat (Routine) - Closed Specialty Diagnoses / Procedures Referred By Contact Refer red To Contact Physical Medicine and Diagnoses Paraplegia, unspecified paraplegia from previous in [place] 33 yrs James Nava Csc [facility] Re[facility] / PHYSICAL MD [place] [address] [place] [address] MEDICINE AND REHAB [address] [place] [phone] Fax: Referral ID Status Reason Start Date Expiration Date Visits V isits Requested Authorized [id number] Closed Created in 07/20/2021 07/20/2022 1 1 PAS Encounter Details Date Type Department Care Team Description 09/02/2021 Office Visit Clinic & Specialty Center Dariel Israel uadriplegia, C5-C7 incomplete () (Primary Dx); Physical Medicine & A, PA-C Muscle spasticity Rehabilitation Clini c [address] [place] [address]40 4 [phone] Social History Tobacco Use [...] Comments Blood Pressure 135/74 09/02/2021 8:12 AM DATA SME Pulse 72 09/02/2021 8:12 AM DATA SME Temperature - - Respiratory Rate - - Oxygen Saturation - - Inhaled Oxygen Concentration - - Weight - - Height - - Body Mass Index - - documented in this encounter Progress Notes Dariel Israel PA-C - 09/02/2021 8:00 AM CST [facility] Physical Medicine & Rehabilitation Clinic Khanh [...] is followed by a wound clinic in [place]. He just had a wheelchair evaluation in physical therapy here at [place]. He stated that around 2 to 3 [...] 5/5 EE 5/5 5/5 WE 4/5 4/5 Research Food Technologist 3/5 3/5 Strength bilateral lower extremities 0/5 [...] service, including pre-visit review of separatelyobtained history, [id number] interaction performing medically appropriate physical exam, patient counseling/education, interpretation of diagnostic results, care coordination and documentation was 46 minutes. Dictation Disclaimer: Notes are completed with voice-recognition dictation software. Errors are generally corrected in real time. Please contact me via [employer] staff message if you note any errors requiring clarification. SME documented in this encounter Plan of Treatment Scheduled Orders Name Type Priority Associated Diagnoses Order S chedule EMG - BOTOX EMG Routine Muscle spasticity Ordered: 0 09/02/2021 documented as of this encounter Procedures Procedure Name Priority Date/Time Associated Comments Diagnosis CARE EVERYWHERE 09/07/2021 11:04 Results for this AUTHORIZATION AM DATA SME procedure are in the results section. CARE EVERYWHERE 09/07/2021 11:04 Results for this AUTHORIZATION AM DATA SME procedure are in the results section. documented in this encounter Results CARE EVERYWHERE AUTHORIZATION (09/07/2021 11:04 AM DATA SME) Narrative This result has an attachment that is no t available. Him Provider SCANNED CONSENTS CARE EVERYWHERE AUTHORIZATION (09/07/2021 11:04 AM DATA SME) Narrative This result has an attachment that is no t available. Him Provider SCANNED CONSENTS documented in this encounter Visit Diagnoses Diagnosis Quadriplegia, C5-C7 incomplete () - Pr imary Quadriplegia, C5-C7, incomplete Muscle spasticity Spasm of muscle documented in this encounter Care Teams Carpenter Supervisor Wooden Ship Relationship Specialty Start Date End Date Lila Clay, PT Physical Therapist Physical Therapy 04/05/21 [address] [place] [address] documented as of this encounter
--- OUTSIDE RECORDS SUMMARY | 2022-06-27 12:48 | XMS_ITS | Encounter Summary ---
:1955 Author Organization [facility] Address [address] [place] [address] Phone Care Team Providers Name Role Phone Provider, Outside Primary Care Provider Unavailable Reason for Visit Reason Onset Date Comments Refill Request 01/12/2018 Encounter Details Date Type Department Care Team Description 01/12/2018 Refill Clinic & Specialty Center Monty Garcia MD Refill Request Urology Clinic [address] [place] [address] [address] [place], [place] [address] [phone] Social History Tobacco Use Types Packs/Day Years [...] on filedocumented in this encounter Care Teams Trans Router Relationship Specialty Start Date End Date Provider, Outside PCP - General 03/13/09 10/22/18 [place] [address] documented as of this encounter
--- OUTSIDE RECORDS SUMMARY | 2022-06-27 12:48 | XMS_ITS | Encounter Summary ---
:1955 Author Organization [facility] Address [address] [place] [address] Phone Care Team Providers Name Role Phone Provider, Outside Primary Care Provider Unavailable Reason for Visit Reason Onset Date Comments Medication Refill 11/11/2016 propantheline (PRO-B ANTHINE) Encounter Details Date Type Department Care Team Description 11/11/2016 Refill [facility] Urology Clinic Selena Garcia MD Medication Refill [place] 701 [facility] P5 (propantheline [address] [place], [place] (PRO-BANTHINE) ) [place], [place] [phone] (Wo rk) Social History Tobacco Use Types [...] [facility] [address] [place] [phone] - [phone] - [address] [place] [address] Phone number for return call: .[phone] Did caller contact the pharmacy? yes: pharmacy [...] on filedocumented in this encounter Care Teams Aircraft Sheet Metal Mechanic Relationship Specialty Start Date End Date Provider, Outside PCP - General 03/13/09 10/22/18 [place] [address] documented as of this encounter
--- OUTSIDE RECORDS SUMMARY | 2022-06-27 12:48 | XMS_ITS | Encounter Summary ---
:1955 Author Organization [facility] Address [address] [place] [address] Phone Care Team Providers Name Role Phone Unavailable Primary Care Provider Unavailable Encounter Details Date Type Department Care Team Description 09/14/2020 Immunization [facility] Viral Clinic Jonathan Chu MD [address] [phone] Need for vaccination [address] Nurse, [facility] Vaccine [address] [place] [address] (Primary Dx) [place], [place] [address] Social History Tobacco Use Types [...] with No / Unsure 08/20/2020 3:15 PM GAUGE CHECKER someone who was confirmed or suspected to have Coronavirus / COVID-19? documented as of this encounter Plan of Treatment Not on filedocumented as of this encounter Visit Diagnoses Diagnosis Need for vaccination - Primary Need for prophylactic vaccination and in oculation against unspecified single disease documented in this encounter
--- OUTSIDE RECORDS SUMMARY | 2022-06-27 12:48 | XMS_ITS | Encounter Summary ---
:1955 Author Organization [facility] Address [address] [place] [address] Phone Care Team Providers Name Role Phone Lila Clay PT Unavailable Reason for Visit Prior Authorization (Routine) - Auth Not Needed Specialty Diagnoses / Procedures Referred By Contact Refer red To Contact Physical Medicine and Diagnoses Quadriplegia, unspecified Quadriplegia, C5-C7 incomplete Muscle spasticity [M62.838] (Reminder letter sent 09/29/21 cl) Zev Alvarez MD Rehab / NEUROLOGY EMG Procedures EMG - BOTOX [address] [place] [address] [place] [address] Phone: Fax: Referral ID Status Reason Start Date Expiration Date Visits V isits Requested Authorized [id number] Auth Not 1 2 Needed Encounter Details Date Type Department Care Team Description 10/21/2021 Hospital Encounter Clinic & Specialty Zev Alvarez , Non Billable Center EMG [address] [place] [address]240 [address] [place], [place] [phone] (Wo rk) Social History Tobacco Use Types [...] Name: Khanh Rene : 1955 Medical Record: [id number] History of Present Illness: 66 year old [...] to his right leg on 07/08/2019 at [facility] (Administered as 100 BF, [...] and discussed with Dr. Kim Ash, PGY-5, [facility] Brain Injury Fellow Pager# [phone] Associated attestation - Zev Alvarez MD - [...] on filedocumented in this encounter Care Teams Real Estate Branch Manager Relationship Specialty Start Date End Date Lila Clay, PT Physical Therapist Physical Therapy 04/05/[address] [place] [address] documented as of this encounter
--- OUTSIDE RECORDS SUMMARY | 2022-06-27 12:48 | XMS_ITS | Encounter Summary ---
:1955 Author Organization [facility] Address [address] [place] [address] Phone Care Team Providers Name Role Phone Lila Clay PT Unavailable Reason for Visit Prior Authorization (Routine) - Closed Specialty Diagnoses / Procedures Referred By Contact Refer red To Contact Physical Therapy / Diagnoses Quadriplegia () At high risk for skin breakdown Impaired mobility Provider, Outside Lila Clay, PHYSICAL MEDICINE AND Procedures PT TREATMENT PLAN OUTSIDE PROVIDER PT REHAB [place] [id number] [place] [address] Phone: Fax: Referral ID Status Reason Start Date Expiration Date Visits Requ ested Visits Authorized [id number] Closed 05/05/2021 01/20/2022 12 12 Encounter Details Date Type Department Care Team Description 09/01/2021 Hospital Encounter Clinic & Specialty Lila Clay, No [facility] Customs Investigator apy PT [address] [place] [address] 4 [place], [place] [phone] Social History Tobacco Use Types Packs/Day Years [...] items have been addressed. Lila Clay PT [facility] License: #[id number] Pager: [phone] Office: [phone] TRICAL/INSTRUMENT TECHNICIAN documented in this encounter Plan of Treatment Not on filedocumented as of this encounter Visit Diagnoses Not on filedocumented in this encounter Care Teams Bulk Materials Handling Plant Operator Relationship Specialty Start Date End Date Lila Clay, PT Physical Therapist Physical Therapy 04/05/21 [address] [place] [address] documented as of this encounter
--- OUTSIDE RECORDS SUMMARY | 2022-06-27 12:48 | XMS_ITS | Encounter Summary ---
:1955 Author Organization [facility] Address [address] [place] [address] Phone Care Team Providers Name Role Phone Unavailable Primary Care Provider Unavailable Encounter Details Date Type Department Care Team Description 08/18/2020 Orders Only [facility] Viral Cl Jonathan Sierra MD COVID-19 76[address] [facility] N 701 [facility] G5 [place], [place] [address] [place], [place] [phone] (Wo rk) Social History Tobacco Use Types [...] with No / Unsure 08/20/2020 3:15 PM INTERNET APPLICATION DEVELOPER someone who was confirmed or suspected to have Coronavirus / COVID-19? documented as of this encounter Plan of Treatment Not on filedocumented as of this encounter Visit Diagnoses Diagnosis COVID-19 documented in this encounter
--- OUTSIDE RECORDS SUMMARY | 2022-06-27 12:48 | XMS_ITS | Encounter Summary ---
:1955 Author Organization [facility] Address [address] [place] [address] Phone Care Team Providers Name Role Phone Lila Clay PT Unavailable Reason for Visit Prior Authorization (Routine) - Closed Specialty Diagnoses / Procedures Referred By Contact Refer red To Contact Physical Therapy / Diagnoses Quadriplegia () At high risk for skin breakdown Impaired mobility Provider, Outside Lila Clay, PHYSICAL MEDICINE AND Procedures PT TREATMENT PLAN OUTSIDE PROVIDER PT REHAB [address] [address] Phone: Fax: Referral ID Status Reason Start Date Expiration Date Visits Requ ested Visits Authorized [id number] Closed 05/05/2021 01/20/2022 12 12 Encounter Details Date Type Department Care Team Description 06/02/2021 Hospital Encounter Clinic & Specialty Provider, Outside OUTSIDE PROVIDER [address] Bag Making Machine Tender apy Lila Clay, PT [address] [place] [address] Social History Tobacco Use Types Packs/Day [...] Hospitalization: None Referring Provider: MD Yamile Alves, PANELBEATER ?? Current Precautions/Contraindications: At high risk for skin breakdown, s/p flap surgery, current pressure injuries on feet [facility] Tea Tree Farmer: no Patient gave two identifiers for Check [...] additional changes as appropriate. O: [Billable Units/Time] (37612) Wheelchair Management: 60 min Transfer MWC/mat table [...] Clay, PT [employer] [place] License: #[id number] Pager: [phone] Office: [phone] P MACHINE TENDER documented in this encounter Plan of Treatment Not on filedocumented as of this encounter Visit Diagnoses Not on filedocumented in this encounter Care Teams Hadoop Application Developer Relationship Specialty Start Date End Date Lila Clay, PT Physical Therapist Physical Therapy 04/05/21 [address] [place] [address] documented as of this encounter
--- OUTSIDE RECORDS SUMMARY | 2022-06-27 12:48 | XMS_ITS | Encounter Summary ---
:1955 Author Organization [facility] Address [address] [place] [address] Phone Care Team Providers Name Role Phone Provider, Outside Primary Care Provider Unavailable Reason for Visit Reason Onset Date Comments Refill Request 09/05/2016 Encounter Details Date Type Department Care Team Description 09/05/2016 Refill [facility] Urology Clinic Divya Caraballo RN Refill Request [address] [facility] [place], [place] [address] 4 [place] [address] Social History Tobacco Use Types Packs/Day Years [...] NOS documented in this encounter Care Teams Shaker Screen Operator Relationship Specialty Start Date End Date Provider, Outside PCP - General 03/13/09 10/22/18 [place] [address] documented as of this encounter
--- OUTSIDE RECORDS SUMMARY | 2022-06-27 12:48 | XMS_ITS | Encounter Summary ---
:1955 Author Organization [facility] Address [address] [place] [address] Phone Care Team Providers Name Role Phone Provider, Outside Primary Care Provider Unavailable Reason for Visit Reason Onset Date Comments Refill Request 12/23/2016 Encounter Details Date Type Department Care Team Description 12/23/2016 Refill [facility] Urology Clinic Divya Caraballo RN Refill Request [address] [facility], [address] [place], [place] [address] 4 [place] [address] Social History Tobacco Use Types Packs/Day Years [...] on filedocumented in this encounter Care Teams Jinrikisha Driver Relationship Specialty Start Date End Date Provider, Outside PCP - General 03/13/09 10/22/18 [place] [address] documented as of this encounter
--- OUTSIDE RECORDS SUMMARY | 2022-06-27 12:48 | XMS_ITS | Encounter Summary ---
:1955 Author Organization [facility] Address [address] [place] [address] Phone Care Team Providers Name Role Phone Unavailable Primary Care Provider Unavailable Reason for Visit Reason Onset Date Comments Refill Request 03/22/2019 propanthelin Encounter Details Date Type Department Care Team Description 03/22/2019 Refill Clinic & Specialty Monty Garcia MD Refill Request Center Urology Clini c 701 [facility] P5 (propanthelin) [address] [phone] (Wo rk) Social History Tobacco Use Types [...] is due for follow up and Prescription Mneg Rojas RN, 03/26/2019 9:17 AM documented in this encounter Plan of Treatment Not on filedocumented as of this encounter Visit Diagnoses Not on filedocumented in this encounter
--- OUTSIDE RECORDS SUMMARY | 2022-06-27 12:48 | XMS_ITS | Encounter Summary ---
:1955 Author Organization [facility] Address [address] [place] [address] Phone Care Team Providers Name Role Phone Unavailable Primary Care Provider Unavailable Reason for Visit Reason Onset Date Comments Refill Request 04/03/2020 Encounter Details Date Type Department Care Team Description 04/03/2020 Refill Clinic & Specialty Center Monty Garcia MD Refill Request Urology Clinic [address] [place] [address] [place] [phone] Social History Tobacco Use Types Packs/Day Years [...]
--- OUTSIDE RECORDS SUMMARY | 2022-06-27 12:48 | XMS_ITS | Encounter Summary ---
:1955 Author Organization [facility] Address [address] [place] [address] Phone Care Team Providers Name Role Phone Provider, Outside Primary Care Provider Unavailable Encounter Details Date Type Department Care Team Description 10/07/2016 Hospital Encounter [facility] Ultrasound Monty Garcia MD [address] [place] [address] .250 [place], [place] [phone] (Wo rk) Social History Tobacco Use Types [...] documented in this encounter Care Teams Consulting Software Engineer Relationship Specialty Start Date End Date Provider, Outside PCP - General 03/13/09 10/22/18 [place] [address] documented as of this encounter
--- OUTSIDE RECORDS SUMMARY | 2022-06-27 12:48 | XMS_ITS | Encounter Summary ---
:1955 Author Organization [facility] Address [address] [place] [address] Phone Care Team Providers Name Role Phone Lila Clay PT Unavailable Reason for Visit Prior Authorization (Routine) - Closed Specialty Diagnoses / Procedures Referred By Contact Refer red To Contact Physical Therapy / Diagnoses Quadriplegia () At high risk for skin breakdown Impaired mobility Provider, Outside Lila Clay, PHYSICAL MEDICINE AND Procedures PT TREATMENT PLAN OUTSIDE PROVIDER PT REHAB [address] [address] Phone: Fax: Referral ID Status Reason Start Date Expiration Date Visits Requ ested Visits Authorized [id number] Closed 05/05/2021 01/20/2022 12 12 Encounter Details Date Type Department Care Team Description 06/09/2021 Hospital Encounter Clinic & Specialty Provider, Outside OUTSIDE PROVIDER [address] [place] Operator apy Lila Clay, PT [id number] [place] [address] Social History Tobacco Use Types Packs/Day [...] Hospitalization: None Referring Provider: MD Yamile Alves, RN TRANSFER ?? Current Precautions/Contraindications: At high risk for skin breakdown, s/p flap surgery, current pressure injuries on feet [facility] [place] Process Improvement: no Patient gave two identifiers for Check 2 for Safety Total Treatment Time: 70 Min Pain: No significant complaints during session S: Pt presents to his PT session in his MWC, independently. Also present: Matthew Ricketts/[employer]. Last 30 min of the session, patient's QRC (Raquel Gamino, RN, PHN, MA P: [phone], F: [phone]) No significant changes; still attends wound clinic for B foot injuries weekly - missed yesterday so will be seen later this week. Pt agreed that he would like to try to adjust 1-2 items at a time; assess tolerance, and then move forward with additional changes as appropriate. Noticed that additional 'dump' is 'different' but tolerable. O: [Billable Units/Time] (78900) Wheelchair Management: 70 min Pt remained in [...] by 2? *Will request a demo from [facility], as PT looked and did not [...] require a new back frame to the [facility], but would provide additional depth to the [...] to be able to transfer in/out of [facility] independently. At end of session, all agreed [...] date include: Increased posterior seat dump on [facility] this date and pt tolerated well - [...] be obtained before then? Lila Clay PT [facility] License: #[id number] Pager: [phone] Office: [phone] HIATRIC TECH documented in this encounter Plan of Treatment Not on filedocumented as of this encounter Visit Diagnoses Not on filedocumented in this encounter Care Teams Ground Transportation Operator Relationship Specialty Start Date End Date Lila Clay, PT Physical Therapist Physical Therapy 04/05/[address] [place] [address] documented as of this encounter
--- OUTSIDE RECORDS SUMMARY | 2022-06-27 12:48 | XMS_ITS | Encounter Summary ---
:1955 Author Organization [facility] Address [address] [place] [address] Phone Care Team Providers Name Role Phone Provider, Outside Primary Care Provider Unavailable Reason for Visit Reason Onset Date Comments Other 2018 Encounter Details Date Type Department Care Team Description 2018 Telephone Clinic & Specialty Monty Garcia MD Appointment Center Urology Clini c 701 [facility] P5 Cancellation [address] [phone] (Wo rk) Social History Tobacco Use Types [...] on filedocumented in this encounter Care Teams Electric Organ Assembler Relationship Specialty Start Date End Date Provider, Outside PCP - General 8/21/09 4/1/19 [place] [address] documented as of this encounter
--- OUTSIDE RECORDS SUMMARY | 2022-06-27 12:49 | XMS_ITS | Encounter Summary ---
:1955 Author Organization [facility] Address [address] [place] [address] Phone Care Team Providers Name Role Phone Provider, Outside Primary Care Provider Unavailable Encounter Details Date Type Department Care Team Description 09/13/2010 Notes/Trans [facility] Sameera Frances MD [address] 701 [facility] Professional Mail Code [address] [address] [place] [address] [phone] Social History Tobacco Use Types Packs/Day Years Used Date Smoking Tobacco: Never Alcohol Use Standard Drinks/Week Comments Yes 3.3 (1 standard drink = 0.6 oz pure alco hol) Sex Assigned at Date Recorded Not on file documented as of this encounter Progress Notes Sameera Frances MD - 09/16/2010 12:35 [place] [address] [facility]#: [id number] PATIENT: MICHEAL RENE : 1955 DATE: 09/13/2010 [...] Physical Medicine and Rehabilitation Service Received in Print Binding And Finishing Worker: 09/13/2010 15:26 M: 09/14/2010 09:05 [facility] HOMA/srikanth Voice ID: [id number] Document ID: [id number] TAL EDITOR documented in this encounter Plan of Treatment Not on filedocumented as of this encounter Visit Diagnoses Not on filedocumented in this encounter Care Teams Fish Agent Relationship Specialty Start Date End Date Provider, Outside PCP - General 03/13/09 10/22/18 [place] [address] documented as of this encounter
--- OUTSIDE RECORDS SUMMARY | 2022-06-27 12:49 | XMS_ITS | Encounter Summary ---
:1955 Author Organization [facility] Address [address] [place] [address] Phone Care Team Providers Name Role Phone Provider, Outside Primary Care Provider Unavailable Reason for Visit Reason Comments Follow-up Encounter Details Date Type Department Care Team Description 12/06/2010 Office Visit [facility] Phys Med/Rehab Sameera Frances U lcer () (Primary Clinic MD Dx) [address] 701 [facility] P5.200 Mail Code P5 [place], [place] [address] [place], [place] [phone] (Wo rk) Social History Tobacco Use Types [...] site documented in this encounter Care Teams Hand Ii Cutter Relationship Specialty Start Date End Date Provider, Outside PCP - General 03/13/09 10/22/18 [place] [address] documented as of this encounter
--- OUTSIDE RECORDS SUMMARY | 2022-06-27 12:49 | XMS_ITS | Encounter Summary ---
:1955 Author Organization [facility] Address [address] [place] [address] Phone Care Team Providers Name Role Phone Provider, Outside Primary Care Provider Unavailable Encounter Details Date Type Department Care Team Description 09/17/2010 Hospital Encounter [facility] Arnold Vora 701 Kay Méndez MD [place], [place] [address] 702 [facility] [phone] [place], [place] [id number] Social History Tobacco Use Types Packs/Day Years [...] () Results for this LAT HIP AM OPHTHALMIC MEDICAL ASSISTANT procedure are i n the results section. documented in this encounter Results (ABNORMAL) XR PELVIS WITH BOTH LAT HIP (09/17/2010 10:28 AM OPHTHALMIC MEDICAL ASSISTANT) Anatomical Region Laterality Modality Pelvis Computed Radiography Specimen (Source) Anatomical Collection Method Collection Time Re ceived Time Location / / Volume Laterality 09/17/2010 10:28 AM OPHTHALMIC MEDICAL ASSISTANT Impressions 09/17/2010 10:35 AM OPHTHALMIC MEDICAL ASSISTANT Impression: Severe osteoarthritis involving both hips with postsurgical fixation of a left hip fracture. There is no cortical irregularity to suggest osteomyelitis. This however lucency surrounding a fe moral IM nail. Three-phase bone scan may be beneficial to assess for infection surrounding the nail if clinically indicated. Reading Radiologist: Khanh Brunson Narrative 09/17/2010 10:35 AM OPHTHALMIC MEDICAL ASSISTANT History: Rule out osteo. Comparison: None. Findings [...] unspecified documented in this encounter Care Teams Content Strategist Relationship Specialty Start Date End Date Provider, Outside PCP - General 03/13/09 10/22/18 [place] [address] documented as of this encounter
--- OUTSIDE RECORDS SUMMARY | 2022-06-27 12:49 | XMS_ITS | Encounter Summary ---
:1955 Author Organization [facility]Note [facility] Address [address] [place] [address] Phone Care Team Providers Name Role Phone Provider, Outside Primary Care Provider Unavailable Reason for Visit Reason Comments Follow-up Encounter Details Date Type Department Care Team Description 02/14/2011 Office Visit [facility] Phys Med/Rehab Sameera Frances D ecubitus ulcer Clinic (Primary Dx) [address] 701 [facility] P5.200 Mail Code P5 [place], [place] [address] [place], [place] [phone] (Wo rk) Social History Tobacco Use Types [...] site documented in this encounter Care Teams Hospitality Ambassador Relationship Specialty Start Date End Date Provider, Outside PCP - General 03/13/09 10/22/18 [place] [address] documented as of this encounter
--- OUTSIDE RECORDS SUMMARY | 2022-06-27 12:49 | XMS_ITS | Encounter Summary ---
:[address] [facility] Address [address] [place], [place] [address], [place] [address] Phone Care Team Providers Name Role Phone Provider, Outside Primary Care Provider Unavailable Encounter Details Date Type Department Care Team Description 10/01/2010 Orders Only HFA Urology Omar Savage, Neurogenic bladder [address] (Primary Dx) [place], [place] [address] Research Only [phone] Social History Tobacco Use Types Packs/Day Years [...] NOS documented in this encounter Care Teams Cartridge Filler Relationship Specialty Start Date End Date Provider, Outside PCP - General 03/13/09 10/22/18 [place] [address] documented as of this encounter
--- OUTSIDE RECORDS SUMMARY | 2022-06-27 12:49 | XMS_ITS | Encounter Summary ---
:[address] [facility] Address [address] [place], [place] [address] [place] [address] Phone Care Team Providers Name Role Phone Provider, Outside Primary Care Provider Unavailable Reason for Visit Reason Comments Follow-up Encounter Details Date Type Department Care Team Description 06/06/2013 Office [place] [facility] [place] [facility] Omar Savage, Neurog enic bladder Yordy FALCON (Primary Dx) [address], [address] Research Only [address] [place], [place] [address] Social History Tobacco Use Types [...] Comments Blood Pressure 88/58 06/06/2013 11:33 AM DREDGE PIPE OPERATOR Pulse 79 06/06/2013 11:33 AM DREDGE PIPE OPERATOR Temperature 36.8 ??C (98.2 ??F) 06/06/2013 11:33 AM DREDGE PIPE OPERATOR Respiratory Rate - - Oxygen Saturation - - Inhaled Oxygen Concentration - - Weight - - Height - - Body Mass Index - - documented in this encounter Patient Instructions Patient InstructionsOmar Savage MD - 06/06/2013 11:42 AM CST [facility] us GE PIPE OPERATOR documented in this encounter Progress Notes Omar Savage MD - 06/08/2013 8:17 AM CST [facility] [address] [place] [address] (fax) [facility]#: [id number] PATIENT: MICHEAL FLETCHER : 1955 DATE: 06/06/2013 [...] MD Staff Physician Surgery Service Received in Green Meat Grader: 06/08/2013 05:34 M: 06/08/2013 08:17 filiberto STEWART/filiberto Voice ID: [id number] Document ID: [id number] GE PIPE OPERATOR Omar Savage MD - 06/08/2013 5:32 AM CST This office note has been dictated. GE PIPE OPERATOR documented in this encounter Plan of Treatment Not on filedocumented as of this encounter Visit Diagnoses Diagnosis Neurogenic bladder - Primary Neurogenic bladder, NOS documented in this encounter Care Teams Investment Trader Relationship Specialty Start Date End Date Provider, Outside PCP - General 03/13/09 10/22/18 [place] [address] documented as of this encounter
--- OUTSIDE RECORDS SUMMARY | 2022-06-27 12:49 | XMS_ITS | Encounter Summary ---
:1955 Author Organization [facility] Address [address] [place] [address] Phone Care Team Providers Name Role Phone Provider, Outside Primary Care Provider Unavailable Reason for Visit Reason Comments Other Encounter Details Date Type Department Care Team Description 01/17/2012 Telephone [facility] [place] Omar Reyes MD [address] [facility] [address] Research Only [place], [place] [address] Social History Tobacco Use Types [...] Outside Provider Comment: Expects Return Call at: [phone] documented in this encounter Plan of Treatment Not on filedocumented as of this encounter Visit Diagnoses Not on filedocumented in this encounter Care Teams Chargeback Specialist Relationship Specialty Start Date End Date Provider, Outside PCP - General 03/13/09 10/22/18 [place] [address] documented as of this encounter
--- OUTSIDE RECORDS SUMMARY | 2022-06-27 12:49 | XMS_ITS | Encounter Summary ---
:1955 Author Organization [facility] Address [address] [place] [address] Phone Care Team Providers Name Role Phone Provider, Outside Primary Care Provider Unavailable Reason for Referral Consult/Test/Treat (Routine) - Closed Specialty Diagnoses / Procedures Referred By Contact Refer red To Contact Physical Therapy Diagnoses Decubitus ulcer Sameera Frances MD [address] Mail Code P5 [place], [place] [address] Referral ID Status Reason Start Date Expiration Date Visits Requ ested Visits Authorized [id number] Closed 01/17/2011 01/18/2012 1 1 Reason for Visit Reason Comments Neurologic Problem Encounter Details Date Type Department Care Team Description 01/17/2011 Office Visit [facility] Phys Med/Rehab Sameera Frances D ecubitus ulcer Clinic (Primary Dx) [address] Mail Code P5 [place], [place] [address] [place], [place] [phone] (Wo rk) Social History Tobacco Use Types [...] site documented in this encounter Care Teams Director Of Admissions Relationship Specialty Start Date End Date Provider, Outside PCP - General 03/13/09 10/22/18 [place] [address] documented as of this encounter
--- OUTSIDE RECORDS SUMMARY | 2022-06-27 12:49 | XMS_ITS | Encounter Summary ---
:1955 Author Organization [facility] Address [address] [facility] [place] [address] Phone Care Team Providers Name Role Phone Provider, Outside Primary Care Provider Unavailable Reason for Visit Reason Comments Neurologic Problem pmr Encounter Details Date Type Department Care Team Description 12/27/2010 Office Visit [facility] [place] [place] Phys Med/Rehab Abhinav Chavez MD NEED ADDRESS Ulcer () (Primary Clinic Sameera Frances MD [address] Mail Code [address] [place] [address] Dx) [address] [place], [place] [address] Social History Tobacco Use [...] documented in this encounter Care Teams Manager Case Management Relationship Specialty Start Date End Date Provider, Outside PCP - General 03/13/09 10/22/18 [place] [address] documented as of this encounter
--- OUTSIDE RECORDS SUMMARY | 2022-06-27 12:49 | XMS_ITS | Encounter Summary ---
:1955 Author Organization [facility] Address [address] [place] [address] Phone Care Team Providers Name Role Phone Provider, Outside Primary Care Provider Unavailable Reason for Referral Consult/Test/Treat (Routine) - Closed Specialty Diagnoses / Procedures Referred By Contact Refer red To Contact Plastic Surgery / Diagnoses Ulcer Sameera Frances, PLASTIC SURGERY MD [address] Mail Code P[address] [place], [place] [address] Referral ID Status Reason Start Date Expiration Date Visits Requ ested Visits Authorized [id number] Closed 09/13/2010 09/13/2011 1 1 ER CLERK Encounter Details Date Type Department Care Team Description 09/13/2010 Orders Only [facility] Phys Med/Rehab Sameera Frances U lcer () (Primary Clinic MD Dx) [address] Mail Code P5 [place], [place] [address] [place], [place] [phone] (Wo rk) Social History Tobacco Use Types [...] site documented in this encounter Care Teams Evidence Technician Relationship Specialty Start Date End Date Provider, Outside PCP - General 03/13/09 10/22/18 [place] [address] documented as of this encounter
--- OUTSIDE RECORDS SUMMARY | 2022-06-27 12:49 | XMS_ITS | Encounter Summary ---
:1955 Author Organization [facility] Address [address] [place] [address] Phone Care Team Providers Name Role Phone Provider, Outside Primary Care Provider Unavailable Reason for Visit Reason Comments Bladder Problem Encounter Details Date Type Department Care Team Description 01/26/2015 Office Visit [facility] [place] Monty Garcia Neur ogenic bladder Yordy FALCON (Primary Dx) [address] [facility] [address] [place], [place] [phone] Social History Tobacco Use Types Packs/Day Years [...] - 01/26/2015 4:13 PM CDT [facility]Y CLINIC [facility] NEW PATIENT/CONSULT VISIT Khanh Rnee : 1955 Date of Visit: 01/26/2015 Primary [...] documented in this encounter Care Teams Digital Asset Coordinator Relationship Specialty Start Date End Date Provider, Outside PCP - General 03/13/09 10/22/18 [place] [address] documented as of this encounter
--- OUTSIDE RECORDS SUMMARY | 2022-06-27 12:49 | XMS_ITS | Encounter Summary ---
:1955 Author Organization [facility] Address [address] [place] [address] Phone Care Team Providers Name Role Phone Provider, Outside Primary Care Provider Unavailable Encounter Details Date Type Department Care Team Description 09/07/2012 Letters(Tab) [facility] [place] [place] Urology Clinic Omar Reyes MD [address] [place] [address], [address] Research [place], [place] [address] Social History Tobacco Use [...] 7:45 AM CST [facility] [address] [place], [place] [address] September 07, 2012 TO: Micheal Fletcher [id number] [address] [id number] RE:MICHEAL FLETCHER MR#:[id number] :1955 Dear Mr. Fletcher: From your recent Urology Clinic visit, your urine culture grew only mixed gram-positive organisms, which are not considered an infection. Please feel free to contact me for questions. Best wishes. Looking forward to seeing you at your next scheduled visit. Sincerely, Omar Savage MD Staff Physician Surgery Service Received in Respite Care Provider: 09/07/2012 07:32 M: 09/07/2012 07:45 cn CS/cn Voice ID: [id number] Document ID: [id number] cc:MICHEAL FLETCHER [id number] [place] [address] ERY EXAMINER documented in this encounter Plan of Treatment Not on filedocumented as of this encounter Visit Diagnoses Not on filedocumented in this encounter Care Teams Health Advisor Relationship Specialty Start Date End Date Provider, Outside PCP - General 03/13/09 10/22/18 [place] [address] documented as of this encounter
--- OUTSIDE RECORDS SUMMARY | 2022-06-27 12:49 | XMS_ITS | Encounter Summary ---
:1955 Author Organization [facility] Address [address] [facility] [address] [facility] [place] [place] [address] Phone Care Team Providers Name Role Phone Provider, Outside Primary Care Provider Unavailable Reason for Visit Reason Comments Referral Consult/Test/Treat (Routine) - Closed Specialty Diagnoses / Procedures Referred By Contact Refer red To Contact Plastic Surgery / Diagnoses Ulcer Sameera Frances, PLASTIC SURGERY [address] Mail Code [address]5 [place], [place] [address] Referral ID Status Reason Start Date Expiration Date Visits Requ ested Visits Authorized [id number] Closed 09/13/2010 09/13/2011 1 1 Encounter Details Date Type Department Care Team Description 09/17/2010 Office Visit [facility] Plastic Surg Bubba Loya () Sara Rasmussen MD (Primary Dx) [address] Mail Code [address] [place], [place] [address] [place], [place] [phone] Social History Tobacco Use Types Packs/Day Years Used Date Smoking Tobacco: Never Smokeless Tobacco: Never Alcohol Use Standard Drinks/Week Comments Yes 3.3 (1 standard drink = 0.6 oz pure alco hol) once in while Sex Assigned at Date Recorded Not on file documented as of this encounter Last Filed Vital Signs Vital Sign Reading Time Taken Comments Blood Pressure 112/77 09/17/2010 8:59 AM PHOTOFLASH POWDER MIXER Pulse 98 09/17/2010 8:59 AM PHOTOFLASH POWDER MIXER Temperature 35.9 ??C (96.7 ??F) 09/17/2010 8:59 AM PHOTOFLASH POWDER MIXER Respiratory Rate - - Oxygen Saturation [...] P: As ordered by provider. Dr loya OFLASH POWDER MIXER Arnold Mejía MD - 09/17/2010 9:45 AM [...] documented. Bubba Loya MD, 09/17/2010 11:39 AM OFLASH POWDER MIXER documented in this encounter Plan of Treatment Not on filedocumented as of this encounter Procedures Procedure Name Priority Date/Time Associated Diagnosis Comme nts SED RATE (ESR) Routine 09/17/2010 9:44 AM Quadriplegia () Re sults for this PHOTOFLASH POWDER MIXER procedure are i n the results section. CBC WITH PLATELET Routine 09/17/2010 9:44 AM Quadriplegia () Results for this PHOTOFLASH POWDER MIXER procedure are i n the results section. documented in this encounter Results (ABNORMAL) XR PELVIS WITH BOTH LAT HIP (09/17/2010 10:28 AM PHOTOFLASH POWDER MIXER) Anatomical Region Laterality Modality Pelvis Computed Radiography Specimen (Source) Anatomical Collection Method Collection Time Re ceived Time Location / / Volume Laterality 09/17/2010 10:28 AM PHOTOFLASH POWDER MIXER Impressions 09/17/2010 10:35 AM PHOTOFLASH POWDER MIXER Impression: Severe osteoarthritis involving both hips with postsurgical fixation of a left hip fracture. There is no cortical irregularity to suggest osteomyelitis. This however lucency surrounding a fe moral IM nail. Three-phase bone scan may be beneficial to assess for infection surrounding the nail if clinically indicated. Reading Radiologist: Khanh Brunson Narrative 09/17/2010 10:35 AM PHOTOFLASH POWDER MIXER History: Rule out osteo. Comparison: None. Findings [...] (ABNORMAL) CBC WITH PLATELET (09/17/2010 9:44 AM PHOTOFLASH POWDER MIXER) P athologist Signature WBC 5.3 4.0 - 10.0 [facility] k/cmm RBC 4.03 (L) 4.60 - 6.00 [facility] m/cmm Hgb 11.8 (L) 13.1 - 17.5 [facility] g/dL Hematocrit 36.4 (L) 40.0 - 51.0 [facility] [place] % MCV 90.3 80.0 - [facility] 100.0 fL MCH 29.3 25.0 - 32.0 [facility] pg MCHC 32.4 31.0 - 36.0 [facility] g/dL RDW 12.8 11.5 - 14.5 [facility] % Plt 308 150 - 400 [facility] [place] k/cmm MPV 8.0 6.5 - 12.5 [facility] fL NRBC .0 0.0 - 0.0 % [facility] Specimen Anatomical Collection Method Collection Time Receive d Time (Source) Location / / Volume Laterality Blood 09/17/2010 9:44 AM 1 9:44 PHOTOFLASH POWDER MIXER AM PHOTOFLASH POWDER MIXER Arnold Mejía MD LABORATORY Performing Organization Address City/[facility]/ZIP [facility] Phon e Number [facility] [place] [address] LAB (ABNORMAL) SED RATE (ESR) (09/17/2010 9:44 AM PHOTOFLASH POWDER MIXER) P athologist Signature Sed Rate 51 (H) 0 - 10 mm/hr [facility] Specimen Anatomical Collection Method Collection Time Receive d Time (Source) Location / / Volume Laterality Blood 09/17/2010 9:44 AM 1 9:44 PHOTOFLASH POWDER MIXER AM PHOTOFLASH POWDER MIXER Arnold Mejía MD LABORATORY Performing Organization Address City/[facility] Phon e Number [facility] [place] [address] LAB documented in this encounter Visit Diagnoses Diagnosis Quadriplegia () - Primary Quadriplegia, unspecified Quadriplegia () Quadriplegia, unspecified documented in this encounter Care Teams Privacy Manager Relationship Specialty Start Date End Date Provider, Outside PCP - General 03/13/09 10/22/18 [place] [address] documented as of this encounter
--- OUTSIDE RECORDS SUMMARY | 2022-06-27 12:49 | XMS_ITS | Encounter Summary ---
:1955 Author Organization [facility] Address [address] [place] [address] Phone Care Team Providers Name Role Phone Provider, Outside Primary Care Provider Unavailable Reason for Visit Reason Comments Follow-up Encounter Details Date Type Department Care Team Description 09/03/2012 Office Visit [facility] Urology Clinic Pooja Krueger MD [address] [facility] [address] [place], [place] [id number] Neurogenic bladder [facility] Omar Savage MD Research Only (Primary Dx) [address], [address] [place], [place] [address] Social History Tobacco Use Types [...] Comments Blood Pressure 112/64 09/03/2012 1:52 PM COMPANY PILOT Pulse 68 09/03/2012 1:52 PM COMPANY PILOT Temperature - - Respiratory Rate - - Oxygen Saturation - - Inhaled Oxygen Concentration - - Weight - - Height - - Body Mass Index - - documented in this encounter Progress Notes Omar Savage MD - 09/04/2012 8:32 PM CST [facility] [address] [facility], [address] [place] [address] (fax) [facility]#: [id number] PATIENT: MICHEAL RENE : 1955 DATE: 09/03/2012 [...] MD Staff Physician Surgery Service Received in Food Trades Assistants: 09/04/2012 12:20 M: 09/04/2012 20:32 [facility]/ Voice ID: [id number] Document ID: [id number] ANY PILOT Omar Savage MD - 09/04/2012 12:19 PM CST This office note has been dictated. ANY PILOT documented in this encounter Plan of Treatment Not on filedocumented as of this encounter Procedures Procedure Name Priority Date/Time Associated Diagnosis Comme nts URINE CULTURE Routine 09/03/2012 2:22 PM Neurogenic bladder Re sults for this COMPANY PILOT procedure are i n the results section. URINALYSIS,TOTAL Routine 09/03/2012 2:22 PM Neurogenic bladder Results for this COMPANY P[employer]OT procedure are i n the results section. documented in this encounter Results URINE CULTURE (09/03/2012 2:22 PM COMPANY PILOT) [facility] Method Time Signature Urine Cult [facility] ? PROCEDURE: MB Urine Culture ?SOURCE: Urine Midstream ?COLLECTED: 09/03/2012 14:22 ? BODY SITE: ?FREE TEXT SOURCE: ?STARTED: 09/03/2012 15:35 ? FINAL REPORT Final Report Verified:09/05/2012 13:06 50,000 - 100,000 organisms/ml Mixed gram positive arthur. No further work-up. Specimen Anatomical Collection Method Collection Time Receive d Time (Source) Location / / Volume Laterality Urine Midstream. 09/03/2012 2:22 PM 09/03 3:34 (Urine) COMPANY PILOT PM COMPANY PILOT Omar Savage MD LAB MICROBIOLOGY Performing Organization Address City/State/ZIP Code Phon e Number [facility] [place] [address] (ABNORMAL) URINALYSIS, TOTAL (09/03/2012 2:22 PM COMPANY PILOT) athologist Signature Color YELLOW YELLOW [facility] Appearance CLEAR CLEAR [facility] Urine Glucose NEGATIVE NEGATIVE [facility] Bili UA NEGATIVE NEGATIVE [facility] Comment: Confirmatory test not available . Ketones NEGATIVE NEGATIVE [facility] Specific Alexander 1.016 1.003 - 1.030 [facility] Blood Ur NEGATIVE Neg-Trace [facility] PH Urine 6.5 5.0 - 7.0 [facility] Protein Ur NEGATIVE Neg-Trace [facility] Urobilinogen 1.0 0.2 - 1.0 EU/dL [facility] Nitrite Ur NEGATIVE NEGATIVE [facility] Leuk Est SMALL (A) Neg-Trace [facility] WBC Ur 6-20 (A) 0 - 5 perHPF [facility] RBC Ur 0-5 0 - 5 perHPF [facility] SQ EPITH 2+ 1+ [facility] Specimen Anatomical Collection Method Collection Time Receive d Time (Source) Location / / Volume Laterality Urine 09/03/2012 2:22 PM 3 2:51 COMPANY PILOT PM COMPANY PILOT Omar Savage MD LABORATORY Performing Organization Address City/State/ZIP Code Phon e Number [facility] [place] [address] documented in this encounter Visit Diagnoses Diagnosis Neurogenic bladder - Primary Neurogenic bladder, NOS documented in this encounter Care Teams Plasterer Foreman Relationship Specialty Start Date End Date Provider, Outside PCP - General 03/13/09 10/22/18 [place] [address] documented as of this encounter
--- OUTSIDE RECORDS SUMMARY | 2022-06-27 12:49 | XMS_ITS | Encounter Summary ---
:1955 Author Organization [facility] Address [address] [facility] [place] [address] Phone Care Team Providers Name Role Phone Provider, Outside Primary Care Provider Unavailable Reason for Visit Reason Comments Follow-up Encounter Details Date Type Department Care Team Description 09/24/[address] [facility] [place] Surg DaysiBubba Veronica us ulcer, stage Clinic MD Valery IV () (Primary Dx) [address] [facility] [address] [facility] [address] Mail Code [address] [place], [place] [address] [place], [place] [phone] Social History Tobacco Use Types Packs/Day Years Used Date Smoking Tobacco: Never Smokeless Tobacco: Never Alcohol Use Standard Drinks/Week Comments Yes 3.3 (1 standard drink = 0.6 oz pure alco hol) once in while Sex Assigned at Date Recorded Not on file documented as of this encounter Last Filed Vital Signs Vital Sign Reading Time Taken Comments Blood Pressure 107/73 09/24/2010 10:33 AM SET UP MECHANIC STAMPING MACHINES Pulse 87 09/24/2010 10:33 AM SET UP MECHANIC STAMPING MACHINES Temperature 36.8 ??C (98.2 ??F) 09/24/2010 10:33 AM SET UP MECHANIC STAMPING MACHINES Respiratory Rate - - Oxygen Saturation - [...] of infection, please contact the Surgery clinic [phone]: redness, warmth, swelling, drainage, pain, and/or fever over 100 degrees. UP MECHANIC STAMPING MACHINES documented in this encounter Progress Notes Mari Odell RN - 09/24/2010 2:45 PM CST Wound care D: Here for wound care. Location: coccyx A: Exam per provider. Wound cleansed with: technicare, H2O and rinsed. Dressing applied: and wet to dry with 1/2 packing and 2x2's with Island dressing. R: Patient tolerated procedure well. P: As ordered by provider. UP MECHANIC STAMPING MACHINES Syl Yanes MD - 09/24/2010 11:21 AM [...] has received the special cushion from the [facility] which is supposed to relieve pressure from that area. He does have another apptset up with Soumya at the [facility] to complete the mapping to [...] documented. Bubba Tavarez MD, 09/25/2010 9:26 AM UP MECHANIC STAMPING MACHINES documented in this encounter Plan of Treatment Not on filedocumented as of this encounter Visit Diagnoses Diagnosis Decubitus ulcer, stage IV () - Primary Pressure ulcer, unspecified site documented in this encounter Care Teams Detention Officer Relationship Specialty Start Date End Date Provider, Outside PCP - General 03/13/09 10/22/18 [place] [address] documented as of this encounter
--- OUTSIDE RECORDS SUMMARY | 2022-06-27 12:49 | XMS_ITS | Encounter Summary ---
:1955 Author Organization [facility] Address [address] [facility] [place] [address] Phone Care Team Providers Name Role Phone Provider, Outside Primary Care Provider Unavailable Encounter Details Date Type Department Care Team Description 11/15/2010 Office Visit [facility] Phys Med/Rehab Sameera Frances D ecubitus ulcer Clinic (Primary Dx) [address] [facility] [address] Mail Code P5 [place], [place] [address] [place], [place] [phone] (Wo rk) Social History Tobacco Use Types [...] Frances MD - 11/16/2010 10:42 [place] [address] MEDREC#: [id number] PATIENT: MICHEAL RENE : 1955 DATE: 11/15/2010 [...] Medicine and Rehabilitation Service Received in Senior Mechanical Project Manager: 11/15/2010 12:55 M: 11/16/2010 02:37 bj CLR/bj Voice ID: [id number] Document ID: [id number] cc:[place] [address] Sameera Frances MD - 11/15/2010 12:44 PM CDT See dictation Sameera Frances MD, 11/15/2010 12:44 PM documented in this encounter Plan of Treatment Not on filedocumented as of this encounter Visit Diagnoses Diagnosis Decubitus ulcer - Primary Pressure ulcer, unspecified site documented in this encounter Care Teams Resource Conservation Specialist Relationship Specialty Start Date End Date Provider, Outside PCP - General 03/13/09 10/22/18 [place] [address] documented as of this encounter
--- OUTSIDE RECORDS SUMMARY | 2022-06-27 12:49 | XMS_ITS | Encounter Summary ---
:1955 Author Organization [facility] Address [address] [facility] [place] [address] Phone Care Team Providers Name Role Phone Provider, Outside Primary Care Provider Unavailable Reason for Visit Reason Onset Date Comments Call Back 11/08/2010 Encounter Details Date Type Department Care Team Description 11/08/2010 Telephone [facility] Neurology Clini c Vickie Odell RN Call Back [address] [facility] [address] [address] [place], [place] [address] Social History Tobacco Use Types [...] that was to call [employer] [phone] to order supplieslast after last visit 11-01-10. [...] Outside Provider Comment:na Expects Return Call at: [phone] documented in this encounter Plan of Treatment Not on filedocumented as of this encounter Visit Diagnoses Not on filedocumented in this encounter Care Teams Senior Physical Therapist Relationship Specialty Start Date End Date Provider, Outside PCP - General 03/13/09 10/22/18 [place] [address] documented as of this encounter
--- OUTSIDE RECORDS SUMMARY | 2022-06-27 12:49 | XMS_ITS | Encounter Summary ---
:1955 Author Organization [facility] Address [address] [place] [address] Phone Care Team Providers Name Role Phone Provider, Outside Primary Care Provider Unavailable Reason for Visit Reason Comments Other Encounter Details Date Type Department Care Team Description 02/20/2013 Telephone [facility] Urology Clinic Omar Reyes MD [address] [facility] Research Only [place], [place] [address] Social History Tobacco Use Types [...] VORB Notified [facility] pharmacy at [phone]. Telephone Encounter - Danna Alvarez RN - [...] verbal refill request for Propantheline. Please call [phone] Expects Return Call at: ------ documented in this encounter Plan of Treatment Not on filedocumented as of this encounter Visit Diagnoses Not on filedocumented in this encounter Care Teams Patent Examiner Relationship Specialty Start Date End Date Provider, Outside PCP - General 03/13/09 10/22/18 [place] [address] documented as of this encounter
--- OUTSIDE RECORDS SUMMARY | 2022-06-27 12:49 | XMS_ITS | Encounter Summary ---
:1955 Author Organization [facility] Address [address] [facility] [place] [address] Phone Care Team Providers Name Role Phone Provider, Outside Primary Care Provider Unavailable Reason for Visit Reason Onset Date Comments Call Back 09/06/2010 Encounter Details Date Type Department Care Team Description 09/06/2010 Telephone [facility] Neurology Clini c Vickie Odell RN Call Back [address] [facility] [address] [address] [place], [place] [address] Social History Tobacco Use Types [...] states that he does not have a plate setter in [facility]. R: Patient quadriplegic states that he would like to speak directly with . Routing to PARTS MANAGER Telephone Encounter - Vickie Odell RN - 09/06/2010 1:59 PM CST Message copied by VICKIE ODELL on MonSep 06, 2010 1:59 PM ------ Message from: BRANDEE TALAMANTES Created: MonSep 06, 2010 1:52 PM 09/06/2010 1:53 PM Khanh Edgard @[email or web address]@ 1955 Questions regarding a referral for a pressure sore from Dr Frances. Best number to call patient back: [phone]. Best time of day to reach patient:anytime. PARTS MANAGER documented in this encounter Plan of Treatment Not on filedocumented as of this encounter Visit Diagnoses Not on filedocumented in this encounter Care Teams Car Ferrier Relationship Specialty Start Date End Date Provider, Outside PCP - General 03/13/09 10/22/18 [place] [address] documented as of this encounter
--- OUTSIDE RECORDS SUMMARY | 2022-06-27 12:49 | XMS_ITS | Encounter Summary ---
:1955 Author Organization [facility] Address [address] [place] [address] Phone Care Team Providers Name Role Phone Provider, Outside Primary Care Provider Unavailable Encounter Details Date Type Department Care Team Description 10/21/2014 Telephone [facility] Urology Clinic Omar Reyes MD [address] Research Only [place], [place] [address] Social History Tobacco Use Types [...] on filedocumented in this encounter Care Teams Student Services Dean Relationship Specialty Start Date End Date Provider, Outside PCP - General 03/13/09 10/22/18 [place] [address] documented as of this encounter
--- OUTSIDE RECORDS SUMMARY | 2022-06-27 12:49 | XMS_ITS | Encounter Summary ---
:1955 Author Organization [facility] Address [address] [place] [address] Phone Care Team Providers Name Role Phone Provider, Outside Primary Care Provider Unavailable Reason for Visit Reason Onset Date Comments Supplies 09/20/2010 Encounter Details Date Type Department Care Team Description 09/20/2010 Telephone [facility] Alka Jade RN Supplies [address] [place] [address] [place], [place] [address] Social History Tobacco Use Types [...] - 09/20/2010 10:02 AM CST Verified that [facility] pharmacy received fax for supplies on 09/17/10. [employer] Telephone Encounter - Alka Jade RN - [...] Insurance: PCP: Outside Provider Comment: [facility] [phone] Prescribed supplies Expects Return Call at: home see above [employer] documented in this encounter Plan of Treatment Not on filedocumented as of this encounter Visit Diagnoses Not on filedocumented in this encounter Care Teams Court Manager Relationship Specialty Start Date End Date Provider, Outside PCP - General 03/13/09 10/22/18 [place] [address] documented as of this encounter
--- OUTSIDE RECORDS SUMMARY | 2022-06-27 12:49 | XMS_ITS | Encounter Summary ---
:1955 Author Organization [facility] Address [address] [place] [address] Phone Care Team Providers Name Role Phone Provider, Outside Primary Care Provider Unavailable Reason for Visit Reason Onset Date Comments Refill Request 09/05/2013 macrodantin Encounter Details Date Type Department Care Team Description 09/05/2013 Refill [facility] Omar Savage MD Refill Request [facility] Only (macrodantin) [address] [place], [place] [address] Social History Tobacco Use Types [...] Savage, med send to to co sign. UE LINING STITCHER documented in this encounter Plan of Treatment Not on filedocumented as of this encounter Visit Diagnoses Diagnosis Neurogenic bladder - Primary Neurogenic bladder, NOS documented in this encounter Care Teams Optical Instrument Assembly Supervisor Relationship Specialty Start Date End Date Provider, Outside PCP - General 03/13/09 10/22/18 [place] [address] documented as of this encounter
--- OUTSIDE RECORDS SUMMARY | 2022-06-27 12:49 | XMS_ITS | Encounter Summary ---
:1955 Author Organization [facility] Address [address] [place] [address] Phone Care Team Providers Name Role Phone Provider, Outside Primary Care Provider Unavailable Reason for Visit Reason Onset Date Comments Refill Request 10/22/2014 Encounter Details Date Type Department Care Team Description 10/22/2014 Refill [facility] Urology Clinic Tree Vaughan, Refill Request [address] [facility], [address] [place], [place] [address] [address] [address] [place], [place] [address] (Wo rk) Social History Tobacco Use Types [...] NOS documented in this encounter Care Teams Social Service Technician Relationship Specialty Start Date End Date Provider, Outside PCP - General 03/13/09 10/22/18 [place] [address] documented as of this encounter
--- OUTSIDE RECORDS SUMMARY | 2022-06-27 12:49 | XMS_ITS | Encounter Summary ---
:1955 Author Organization [facility] Address [address] [facility] [place] [address] Phone Care Team Providers Name Role Phone Provider, Outside Primary Care Provider Unavailable Reason for Visit Reason Comments Neurologic Problem pmr Encounter Details Date Type Department Care Team Description 11/01/2010 Office Visit [facility] Phys Med/Rehab Sameera Frances D ecubitus ulcer, Clinic MD mackey (Primary Dx) [address] [facility] [address]5.[address] Mail Code P5 [place], [place] [address] [place], [place] [phone] (Wo rk) Social History Tobacco Use Types [...] CDT Height - - Body Mass Index 74951.15 07/31/2007 3:21 PM LEAD OPERATOR documented in this encounter Patient Instructions Patient [...] 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
--- OUTSIDE RECORDS SUMMARY | 2022-06-27 12:49 | XMS_ITS | Encounter Summary ---
:1955 Author Organization [facility] Address [address] [place] [address] Phone Care Team Providers Name Role Phone Provider, Outside Primary Care Provider Unavailable Encounter Details Date Type Department Care Team Description 10/19/2010 Refill HFA Urology Omar Savage MD [address] [facility], [address] Research Only [place], [place] [address] Social History Tobacco Use Types [...] Outside Provider Comment: Please call [facility] pharmacy regarding getting an alternative for his medication Propantheline. Please call Ange Valdivia Return Call at: [phone] documented in this encounter Plan of Treatment Not on filedocumented as of this encounter Visit Diagnoses Diagnosis Neurogenic bladder - Primary Neurogenic bladder, NOS documented in this encounter Care Teams Corporate Representative Relationship Specialty Start Date End Date Provider, Outside PCP - General 03/13/09 10/22/18 [place] [address] documented as of this encounter
--- OUTSIDE RECORDS SUMMARY | 2022-06-27 12:49 | XMS_ITS | Encounter Summary ---
:1955 Author Organization [facility] Address [address] [place] [address] Phone Care Team Providers Name Role Phone Provider, Outside Primary Care Provider Unavailable Reason for Visit Reason Onset Date Comments Other 02/05/2016 Encounter Details Date Type Department Care Team Description 02/05/2016 Telephone [facility] U[facility] Selena Garcia MD plan of care Arrey [address] [address] [address] [facility], [address] [place] [address] [place], [place] [phone] Social History Tobacco Use Types Packs/Day Years [...] on filedocumented in this encounter Care Teams Shell Plater Relationship Specialty Start Date End Date Provider, Outside PCP - General 03/13/09 10/22/18 [place] [address] documented as of this encounter
--- OUTSIDE RECORDS SUMMARY | 2022-06-27 12:49 | XMS_ITS | Encounter Summary ---
:1955 Author Organization [facility] Address [address] [place] [address] Phone Care Team Providers Name Role Phone Provider, Outside Primary Care Provider Unavailable Reason for Visit Reason Comments Other Encounter Details Date Type Department Care Team Description 02/05/2016 Refill [facility] U[facility] Monty Morales MD Other [address] [facility], [address] [address] [address] [place] [address] [phone] (Wo rk) Social History Tobacco Use Types [...] on filedocumented in this encounter Care Teams Ordering Box Operator Relationship Specialty Start Date End Date Provider, Outside PCP - General 03/13/09 10/22/18 [place] [address] documented as of this encounter
--- OUTSIDE RECORDS SUMMARY | 2022-06-27 12:49 | XMS_ITS | Encounter Summary ---
:1955 Author Organization [facility] Address [address] [place] [address] Phone Care Team Providers Name Role Phone Provider, Outside Primary Care Provider Unavailable Reason for Visit Reason Onset Date Comments Question 09/22/2010 Encounter Details Date Type Department Care Team Description 09/22/2010 Telephone [facility] Neurology Clini c Blanca Marti, NILSA Question [address] [facility] [address] P5.200 [place], [place] [address] Social History Tobacco Use Types [...] discuss concerns with Dr. Loya. He agreed. LESOFT CONSULTANT Telephone Encounter - Blanca Marti RN - 09/22/2010 10:35 AM CST Pt calling in with frustrations Saw dr. loya who wants pt to see dr. bernstein again before coming back Dr. bernstein wants pt to be seen in [facility] Paperwork faxed to them and pt will call and schedule Pt having questions regarding his care of his wound after seeing dr. loya- felt his appt was so brief with dr. loya and is unsatisfied and would like to speak with nsg staff in surgery clinic Routed to surg clinic RNs Blanca Marti RN, 09/22/2010 10:35 AM LESOFT CONSULTANT documented in this encounter Plan of Treatment Not on filedocumented as of this encounter Visit Diagnoses Not on filedocumented in this encounter Care Teams Ambulatory Nurse Relationship Specialty Start Date End Date Provider, Outside PCP - General 03/13/09 10/22/18 [place] [address] documented as of this encounter
--- OUTSIDE RECORDS SUMMARY | 2022-06-27 12:49 | XMS_ITS | Encounter Summary ---
:1955 Author Organization [facility] Address [address] [place] [address] Phone Care Team Providers Name Role Phone Provider, Outside Primary Care Provider Unavailable Reason for Visit Reason Onset Date Comments Refill Request 12/17/2013 Propantheline Encounter Details Date Type Department Care Team Description 12/17/2013 Refill [facility] Omar Savage MD Refill Request [facility] (Propantheline) [address] [facility] [address], [address] [place], [place] [address] Social History Tobacco Use Types [...] filedocumented in this encounter Care Teams Air Traffic Control Specialist Relationship Specialty Start Date End Date Provider, Outside PCP - General 03/13/09 10/22/18 [place] [address] documented as of this encounter
--- OUTSIDE RECORDS SUMMARY | 2022-06-27 12:49 | XMS_ITS | Encounter Summary ---
:1955 Author Organization [facility] Address [address] [place] [address] Phone Care Team Providers Name Role Phone Provider, Outside Primary Care Provider Unavailable Reason for Visit Reason Onset Date Comments Call Back 09/30/2010 Encounter Details Date Type Department Care Team Description 09/30/2010 Nurse Triage [facility] Contact Center Quang Toscano, Call Back [facility] [id number] [place] [address] Social History Tobacco Use Types Packs/Day [...] requests that she call back again at [phone]. R: routing to ER FIXER Telephone Encounter - Quang Toscano RN - 09/30/2010 4:24 PM COMBER FIXER Message copied by QUANG TOSCANO on MonSep [...] CHRISTIANO TINAJERO Phone number for return call: [phone] ER FIXER documented in this encounter Plan of Treatment Not on filedocumented as of this encounter Visit Diagnoses Not on filedocumented in this encounter Care Teams Carbon Paper Machine Operator Relationship Specialty Start Date End Date Provider, Outside PCP - General 03/13/09 10/22/18 [place] [address] documented as of this encounter
--- OUTSIDE RECORDS SUMMARY | 2022-06-27 12:50 | XMS_ITS | Encounter Summary ---
:1955 Author Organization [facility] Address [address] [place] [address] Phone Care Team Providers Name Role Phone Pcp, No Primary Care Provider Unavailable Reason for Visit Reason Onset Date Comments Question 02/20/2009 Called with question Encounter Details Date Type Department Care Team Description 02/20/2009 Telephone HFA Physical Medicin e Reece Ziegler, Question (Called with [facility] [address], [address] RN question) [facility] [facility] [place] [address] Clinic [phone] [place] [address] Social History Tobacco Use Types Packs/Day Years [...] Created: MonFeb 19, 2009 3:38 PM Regarding: [facility] PMR TELEPHONE MESSAGE Taken by: Natalie Painting , 02/19/2009 3:38 PM Direct to: Problem: questions Pt. Name: Khanh Rene : 1955 (home) Insurance: PCP: No PCP Comment: Expects Return Call at: [phone] Monday02/20/09 at 930am, returned Khanh's phone call, had to leave phone message, Reece Ziegler RN 02/26/09 again returned Khanh's phone call woth no answer. Khanh is scheduled to see Dr Frances on Monday03/13/[address] [facility]. I has also given Dr Frances phone message from Khanh on his question on medical supply.Reece Ziegler RN documented in this encounter Plan of Treatment Not on filedocumented as of this encounter Visit Diagnoses Not on filedocumented in this encounter Care Teams Sterilization Specialist Relationship Specialty Start Date End Date Pcp, No PCP - General 01/24/08 03/12/09 [facility] [place] [address] documented as of this encounter
--- OUTSIDE RECORDS SUMMARY | 2022-06-27 12:50 | XMS_ITS | Encounter Summary ---
:1955 Author Organization [facility] Address [address] [place] [address] Phone Care Team Providers Name Role Phone Unavailable Primary Care Provider Unavailable Encounter Details Date Type Department Care Team Description 09/29/2006 Letters(Tab) [facility] [place] Omar Savage MD [facility] [address] [facility] P5.[address] [place], [place] [address] Social History Tobacco Use Types Packs/Day Years Used Date Smoking Tobacco: Never Assessed Sex Assigned at Date Recorded Not on file documented as of this encounter Progress Notes Omar Savaeg MD - 09/29/2006 4:34 PM CST [facility] [address] [place] [address] 09/29/2006 TO: Micheal Rene [address] [place], [place] [address] RE: MICHEAL RENE MR#: [id number] Dear Mr. Rene: From your recent Urology Clinic visit your prostate specific antigen value remains in a normal level and is 2.87. Best wishes and please feel free to contact us for questions. Sincerely, Omar Savage MD Received in [place]: 09/29/2006 12:33:54 (M: 09/29/2006 13:29:47 kms) CS/kms Voice ID: [id number] Document ID: [id number] cc: Micheal Rene [address] [facility] [address] TROLLER documented in this encounter Plan of Treatment Not on filedocumented as of this encounter Visit Diagnoses Not on filedocumented in this encounter
--- OUTSIDE RECORDS SUMMARY | 2022-06-27 12:50 | XMS_ITS | Encounter Summary ---
:[address] [facility] Address [address] [place] [address] Phone Care Team Providers Name Role Phone [...]
--- OUTSIDE RECORDS SUMMARY | 2022-06-27 12:50 | XMS_ITS | Encounter Summary ---
:1955 Author Organization [facility] Address [address] [place] [address] Phone Care Team Providers Name Role Phone [...] 12:00 AM CSTAssociated Order(s): INFORMATION DISCLOSURE GER SECURITY documented in this encounter Plan of Treatment Not on filedocumented as of this encounter Procedures Procedure Name Priority Date/Time Associated Comments Diagnosis INFORMATION 09/23/2010 5:22 PM Results f or this DISCLOSURE MANAGER SECURITY procedure are i n the results section. documented in this encounter Results INFORMATION DISCLOSURE (09/23/2010 5:22 PM MANAGER SECURITY) Narrative 09/23/2010 5:22 PM MANAGER SECURITY Procedure Note Unknown, Provider - 09/23/2010 12:00 AM CST Provider Unknown SCANNED CONSENTS documented in this encounter Visit Diagnoses Not on filedocumented in this encounter Care Teams Captain Of Guards Relationship Specialty Start Date End Date Provider, Outside PCP - General 03/13/09 10/22/18 [place] [address] documented as of this encounter
--- OUTSIDE RECORDS SUMMARY | 2022-06-27 12:50 | XMS_ITS | Encounter Summary ---
:1955 Author Organization [facility] Address [address] [place] [address] Phone Care Team Providers Name Role Phone Unavailable Primary Care Provider Unavailable Encounter Details Date Type Department Care Team Description 09/02/2005 Orders Only [facility] XRAY [address] [place], [place] [address] Social History Tobacco Use Types Packs/Day Years Used Date Smoking Tobacco: Never Assessed Sex Assigned at Date Recorded Not on file documented as of this encounter Plan of Treatment Not on filedocumented as of this encounter Procedures Procedure Name Priority Date/Time Associated Diagnosis Comme nts ULT KIDNEYS Routine 09/02/2005 3:16 PM Results f or this COMPLETE HEALTH AND FITNESS PROFESSOR procedure are i n the results section. XR CHEST 2 VIEWS PA Routine 09/02/2005 3:03 PM Re sults for this + LAT* HEALTH AND FITNESS PROFESSOR procedure are i n the results section. documented in this encounter Results ULT KIDNEY COMPLETE (09/02/2005 3:16 PM HEALTH AND FITNESS PROFESSOR) Anatomical Region Laterality Modality Abdomen Ultrasound Specimen (Source) Anatomical Collection Method Collection Time Re ceived Time Location / / Volume Laterality 09/02/2005 3:16 PM HEALTH AND FITNESS PROFESSOR Impressions 09/05/2005 9:17 AM HEALTH AND FITNESS PROFESSOR : ??NO FOCAL MASS, STONE, OR HYDRONEPHROSIS IDENTIFIED WITHIN EITHER KIDNEY. I have personally reviewed the image(s) and initial interpretation, and I agree with the findings. . . Read Date: Sep 02 2005 ??4:12P BENEDICT AU M.D. - STAFF RADIOLOGIST FABIOLA AVALOS M.D. - RESIDENT RADIOLOGIST RELEASE RESULTS: (Y) ASI END: END RESULT: DATE DICTATED: () CABIN OUTFITTER: ( ) IMPRESSION Narrative 09/05/2005 9:17 AM HEALTH AND FITNESS PROFESSOR FABIOLA AVALOS M.D. - RESIDENT RADIOLOGIST Final Report EXAM: ?? RENAL US: KING SALMON KIDNEYS ?? 04/2006 15:16 HISTORY: ??Neurogenic bladder. [...] RESIDENT RADIOLOGIST Final Report EXAM: RENAL US: KING SALMON KIDNEYS 15:16 HISTORY: Neurogenic bladder. COMPARISON: 10/12/01. [...] ASI END: END RESULT: DATE DICTATED: () CABIN OUTFITTER: ( ) IMPRESSION Omar Savage MD ULT XR CHEST 2 VIEWS PA & LAT (09/02/2005 3:03 PM HEALTH AND FITNESS PROFESSOR) Anatomical Region Laterality Modality Chest Digital Radiography Specimen (Source) Anatomical Collection Method Collection Time Re ceived Time Location / / Volume Laterality 09/02/2005 3:03 PM HEALTH AND FITNESS PROFESSOR Impressions 09/02/2005 3:58 PM HEALTH AND FITNESS PROFESSOR : ??NO ACUTE PULMONARY INFILTRATE. ?? . . Read Date: Sep 02 2005 ??3:34P VIANCA COHEN M.D. - STAFF RADIOLOGIST - RESIDENT RADIOLOGIST RELEASE RESULTS: (Y) ASI END: END RESULT: DATE DICTATED: () CABIN OUTFITTER: ( ) IMPRESSION Narrative 09/02/2005 3:58 PM HEALTH AND FITNESS PROFESSOR - RESIDENT RADIOLOGIST Final Report EXAM: ?? [...] ASI END: END RESULT: DATE DICTATED: () CABIN OUTFITTER: ( ) IMPRESSION Omar Savage MD X-RAY documented in this encounter Visit Diagnoses Not on filedocumented in this encounter
--- OUTSIDE RECORDS SUMMARY | 2022-06-27 12:50 | XMS_ITS | Encounter Summary ---
:1955 Author Organization [facility] Address [address] [place] [address] Phone Care Team Providers Name Role Phone Unavailable Primary Care Provider Unavailable Encounter Details Date Type Department Care Team Description 09/02/2005 Letters(Tab) Unknown, Provider Social History Tobacco Use Types Packs/Day Years Used Date Smoking Tobacco: Never Assessed Sex Assigned at Date Recorded Not on file documented as of this encounter Progress Notes Interface, [employer] Set Up Operator-In - 11/15/2005 1:36 AM CDT [facility] [address] [facility], [address] [place], [place] [address] September 02, 2005 Mr. Micheal Rene [address] [place] [address] RE: MICHEAL RENE MR#: [id number] Dear Mr. Rene: From your recent Urology Clinic visit, your prostate specific antigen value remains low at 2.6. We will communicate with you once your other screening studies and x-ray studies have been completed. Best wishes. Please feel free to contact me for questions. Sincerely, Omar Savage MD Received in [employer] Set Up Operator: 09/02/2005 14:40:28 (M: 09/03/2005 06:57:04 dma) CS/fidelina Voice ID: [id number] Document ID: [id number] cc: This document was electronically signed by Omar Savage MD on 09/06/2005 18:13:45. documented in this encounter Plan of Treatment Not on filedocumented as of this encounter Visit Diagnoses Not on filedocumented in this encounter
--- OUTSIDE RECORDS SUMMARY | 2022-06-27 12:50 | XMS_ITS | Encounter Summary ---
:1955 Author Organization [facility] Address [address] [place] [address] Phone Care Team Providers Name Role Phone Pcp, No Primary Care Provider Unavailable Reason for Visit Reason Onset Date Comments Durable Medical Equipment 02/17/2009 Question about reordering equipment Check/Request Encounter Details Date Type Department Care Team Description 02/17/2009 Telephone HFA Physical Medicin e Reece Ziegler, Durable Medical [address] [facility] [facility] RN Equipment Check/Request M50 Multispecialty (Question about [place], [place] [address] Clinic reordering equipment) [phone] [place] [address] Social History Tobacco Use Types Packs/Day Years [...] refill of dourdrem?? Spelling? Pharmacy # is [phone] Pt. Name: Khanh Rene : 1955 (home) Insurance: PCP: No PCP Comment: Expects Return Call at: [phone] or cell [phone] Monday02/17/09 Copy of this phone message given to Dr Frances and she will call patient to check on equipment order needed. Reece Ziegler RN documented in this encounter Plan of Treatment Not on filedocumented as of this encounter Visit Diagnoses Not on filedocumented in this encounter Care Teams Church Administrator Relationship Specialty Start Date End Date Pcp, No PCP - General 01/24/08 03/12/09 [facility] [place] [address] documented as of this encounter
--- OUTSIDE RECORDS SUMMARY | 2022-06-27 12:50 | XMS_ITS | Encounter Summary ---
:1955 Author Organization [facility] Address [address] [place] [address] Phone Care Team Providers Name Role Phone Unavailable Primary Care Provider Unavailable Encounter Details Date Type Department Care Team Description 10/22/2007 Abstract HFA Multispecialty Abstract, Provider [address] [place], [place] [address] Social History Tobacco Use Types [...]
--- OUTSIDE RECORDS SUMMARY | 2022-06-27 12:50 | XMS_ITS | Encounter Summary ---
:1955 Author Organization [facility] Address [address] [place] [address] Phone Care Team Providers Name Role Phone Unavailable Primary Care Provider Unavailable Reason for Visit Reason Onset Date Comments Medication Refill 10/16/2007 Encounter Details Date Type Department Care Team Description 10/16/2007 Refill HFA Urology Omar Savage MD Medication Refill [address] [facility], [address] Research Only [place], [place] [address] Social History Tobacco Use Types [...]
--- OUTSIDE RECORDS SUMMARY | 2022-06-27 12:50 | XMS_ITS | Encounter Summary ---
:1955 Author Organization [facility] Address [address] [place] [address] Phone Care Team Providers Name Role Phone Unavailable Primary Care Provider Unavailable Encounter Details Date Type Department Care Team Description 05/10/2005 EWeb History [facility] EMG Sameera Frances MD [address] [facility] [address] [place], [place] [address] Mail Code [address]5 [place] [address] (Wo rk) Social History Tobacco Use Types Packs/Day Years Used Date Smoking Tobacco: Never Assessed Sex Assigned at Date Recorded Not on file documented as of this encounter Plan of Treatment Not on filedocumented as of this encounter Visit Diagnoses Not on filedocumented in this encounter
--- OUTSIDE RECORDS SUMMARY | 2022-06-27 12:50 | XMS_ITS | Encounter Summary ---
:1955 Author Organization [facility] Address [address] [place] [address] Phone Care Team Providers Name Role Phone Pcp, No Primary Care Provider Unavailable Reason for Visit Reason Onset Date Comments Refill Request 09/02/2008 Encounter Details Date Type Department Care Team Description 09/02/2008 Refill HFA Urology Omar Savage MD Refill Request [address] [facility], [address] Research Only [place], [place] [address] Social [...] filedocumented in this encounter Care Teams Optical Laboratory Manager Relationship Specialty Start Date End Date Pcp, No PCP - General 01/24/08 03/12/09 [facility] [place] [place] [address] documented as of this encounter
--- OUTSIDE RECORDS SUMMARY | 2022-06-27 12:50 | XMS_ITS | Encounter Summary ---
:1955 Author Organization [facility] Address [address] [place] [address] Phone Care Team Providers Name Role Phone Provider, Outside Primary Care Provider Unavailable Reason for Visit Reason Onset Date Comments Call Back 08/30/2010 Encounter Details Date Type Department Care Team Description 08/30/2010 Telephone HFA Multispecialty Varsha Knight RN Call Back [address], [address] Multispecialty Clinic [place], [place] [address] [phone] [place] [address] (Wo rk) Social History Tobacco Use Types Packs/Day Years Used Date Smoking Tobacco: Never Alcohol Use Standard Drinks/Week Comments Yes 3.3 (1 standard drink = 0.6 oz pure alco hol) Sex Assigned at Date Recorded Not on file documented as of this encounter Miscellaneous Notes Telephone Encounter - Varsha Knight RN - 08/30/2010 4:23 PM TABLET MAKING MACHINE OPERATOR HELPER Spoke with patient & let him know that Blanca Ziegler was working on this (see her telephone encounter from earlier today). Pt states he is using Duoderm for this pressure sore but thinks it may need other intervention. Let him know our office would be in touch soon regarding this appt. 08/31/10 830 AM. I called and talked to Khanh ([phone]) he is a Dr Frances Quadriplegia patient and he does have a open sore on his bottom, he did call scheduling at [facility] ([phone])and could not get in to see Dr Frances in her [facility] Clinic until September. I informed Khanh that I will route this phone message to Dr Frances plus I will page her to try to talk to her about Khanh. Blanca Ziegler RN ET MAKING MACHINE OPERATOR HELPER documented in this encounter Plan of Treatment Not on filedocumented as of this encounter Visit Diagnoses Not on filedocumented in this encounter Care Teams Environmental Health Safety Engineer Relationship Specialty Start Date End Date Provider, Outside PCP - General 03/13/09 10/22/18 [place] [address] documented as of this encounter
--- OUTSIDE RECORDS SUMMARY | 2022-06-27 12:50 | XMS_ITS | Encounter Summary ---
:1955 Author Organization [facility] Address [address] [facility] [place] [address] Phone Care Team Providers Name Role Phone Provider, Outside Primary Care Provider Unavailable Reason for Visit Reason Comments Follow-up 19 months foolow up visit [facility] Dr Yvrose Mukherjee [facility] Dx C7 Spinal Cord Injury Encounter Details Date Type Department Care Team Description 03/13/2009 Office Visit HFA Neuromuscular Sameera Frances Don plegia () Clinic MD Valery (Primary Dx) [address], [address] [place] [address] Mail Code P5 [place], [place] [address] [place], [place] [phone] Social History Tobacco Use Types Packs/Day [...] visit with Dr Frances [facility] ([phone]) Rx/orders given to Micheal by Dr Frances for Wheelchair lumbar support and wheelchair repairs, bilateral arm rests, replace sling back Blanca Ziegler RN documented in this encounter Progress Notes Sameera Frances MD - 03/26/2009 10:04 AM CDT [facility] [address] [facility], [address] [place] [address] (fax) [facility]#: [id number] PATIENT: MICHEAL FLETCHER : 1955 DATE: 03/13/2009 NEUROMUSCULAR PHYSICAL MEDICINE NOTE HISTORY OF PRESENT ILLNESS: Micheal Fletcher is a 54-year-old gentleman with a C7 [place] [employer] (AUDREY) B spinal cord [...] to pacemaker placement at [facility]. He said that his angiogram did [...] discontinues that activity. He is using a SponsorHubie wheelchair with a Joby cushion. It is [...] a slow healing coccyx ulcer at the [facility]. We have discussed whether he [...] that complication. Sameera Frances MD Received in Molder Machine Tender: 03/20/2009 12:28:50 (M: 03/24/2009 03:22:10 golden) HOMA/jlb Voice ID: [id number] Document ID: [id number] cc: Abida Pulliam DO, [facility], [address] [place] [id number] Sameera Frances MD - 03/19/2009 6:44 PM CDT See dictation. documented in this encounter Nursing Notes 03/13/2009 8:00 AM CDT >> Blanca Ziegler RN MonMar 13, 2009 8:24 AM 19 months follow up visit with Dr Frances in Monday [facility]. DX of C7 Spinal Cord Injury, Quadriplegia, Neurogenic Bladder. B/P 87/60 pulse 105, states runs lower blood pressure. Self caths PRN during the day. Blanca Ziegler RN documented in this encounter Plan of Treatment Not on filedocumented as of this encounter Visit Diagnoses Diagnosis Quadriplegia () - Primary Quadriplegia, unspecified documented in this encounter Care Teams Perfume Compounder Relationship Specialty Start Date End Date Provider, Outside PCP - General 03/13/09 10/22/18 [place] [address] documented as of this encounter
--- OUTSIDE RECORDS SUMMARY | 2022-06-27 12:50 | XMS_ITS | Encounter Summary ---
:1955 Author Organization [facility] Address [address] [facility] [place] [address] Phone Care Team Providers Name Role Phone Unavailable Primary Care Provider Unavailable Encounter Details Date Type Department Care Team Description 01/29/2001 Orders Only [facility] Sameera Frances MD [address] [facility] [address] [place], [place] [address] Mail Code P5 [place] [address] (Wo rk) Social History Tobacco [...] Results URINE CX (01/29/2001 3:37 PM CDT) [facility] Method Time Signature Urine Cult [facility] Test Name ? Collected on --------- [...] PM 01/31 CDT 10:25 AM CDT Narrative [facility] - 01/31/2001 10:25 AM CDT Ordered by an unspecified provider. Provider Unknown LAB MICROBIOLOGY Performing Organization Address City/State/ZIP Code Phon e Number [facility] [place] [address] LAB URINALYSIS, TOTAL (01/29/2001 3:37 PM CDT) [facility] Method Time Signature Color YELLOW YELLOW [facility] Appearance CLEAR CLEAR [facility] Urine Glucose NEGATIVE NEGATIVE [facility] Bili UA NEGATIVE NEGATIVE [facility] Ketones NEGATIVE NEGATIVE [facility] Specific [place] 1.010 1.003 - [facility] 1.030 Blood Ur TRACE Neg-Trace [facility] PH Urine 6.5 5.0 - 7.0 [facility] Protein Ur NEGATIVE NEGATIVE [facility] Urobilinogen 0.2 0.2 - 1.0 [facility] EU/dL Nitrite Ur NEGATIVE NEGATIVE [facility] Leuk Est TRACE Neg-Trace [facility] Microscopic [facility] WBC Ur 0 - 5 0 - 5 [facility] Trans Epith 1+ [facility] Sperm 1+ [facility] Specimen Anatomical Collection Method Collection Time Receive d Time (Source) Location / / Volume Laterality Urine 01/29/2001 3:37 PM 1 4:56 CDT PM CDT Narrative [facility] - 01/29/2001 4:56 PM CDT Ordered by an unspecified provider. Provider Unknown LABORATORY Performing Organization Address City/State/ZIP Code Phon e Number [facility] [place] [address] LAB documented in this encounter Visit Diagnoses Not on filedocumented in this encounter
--- OUTSIDE RECORDS SUMMARY | 2022-06-27 12:50 | XMS_ITS | Encounter Summary ---
:1955 Author Organization [facility]Note 2] Address [address] [place] [address] Phone Care Team Providers Name Role Phone Unavailable Primary Care Provider Unavailable Encounter Details Date Type Department Care Team Description 10/12/2001 Orders Only [facility] [address] [place], [place] [address] Social History Tobacco Use Types Packs/Day Years Used Date Smoking Tobacco: Never Assessed Sex Assigned at Date Recorded Not on file documented as of this encounter Plan of Treatment Not on filedocumented as of this encounter Procedures Procedure Name Priority Date/Time Associated Diagnosis Comme nts XR CHEST 2 VIEWS PA Routine 10/12/2001 12:00 PM R esults for this + LAT* ROOM CLERK procedure are i n the results section. ULT KIDNEYS Routine 10/12/2001 11:22 AM Results for this COMPLETE ROOM CLERK procedure are i n the results section. documented in this encounter Results XR CHEST 2 VIEWS PA & LAT (10/12/2001 12:00 PM ROOM CLERK) Anatomical Region Laterality Modality Chest Digital Radiography Specimen (Source) Anatomical Collection Method Collection Time Re ceived Time Location / / Volume Laterality 10/12/2001 12:00 PM ROOM CLERK Impressions 10/14/2001 3:54 PM ROOM CLERK : 1. ??NO PULMONARY FIBROSIS OR AIR-SPACE INFILTRATE SEEN. 2. ??STABLE RIGHT LOWER LOBE PULMONARY N ODULE, LIKELY CALCIFIED. 3. ??INTERVAL MORE PROMINENT DENSITY OVE R THE MEDIAL ASPECT OF THE RIGHT APEX, OF UNCERTAIN CLINICAL SIGNIFICANCE . ??FURTHER EVALUATION WITH LORDOTIC VIEW MAY BE HELPFUL. ASI END: RELEASE RESULTS: (Y) END RESULT: IMPRESSION Narrative 10/14/2001 3:54 PM ROOM CLERK Final Report EXAM: ?? CHEST 2 VIEWS [...] X-RAY ULT KIDNEY COMPLETE (10/12/2001 11:22 AM ROOM CLERK) Anatomical Region Laterality Modality Abdomen Ultrasound Specimen (Source) Anatomical Collection Method Collection Time Re ceived Time Location / / Volume Laterality 10/12/2001 11:22 AM ROOM CLERK Impressions 10/15/2001 4:06 PM ROOM CLERK : 1. ??NO RENAL STONES IDENTIFIED. 2. ??MILD CORTICAL THINNING BILATERALLY. ??THIS MAY INDICATE MEDICAL RENAL DISEASE. I have personally reviewed the image(s) and initial interpretation, and I agree with the findings. ASI END: RELEASE RESULTS: (Y) END RESULT: IMPRESSION Narrative 10/15/2001 4:06 PM ROOM CLERK Final Report EXAM: ?? RENAL US: NAVAJO KIDNEYS ?- ??10/12/2001 11:22AM SUSPECTED PATHOLOGY: SYMPTOMS [...] the original. Final Report EXAM: RENAL US: NAVAJO KIDNEYS - 002 11:22AM SUSPECTED PATHOLOGY: SYMPTOMS [...]
--- OUTSIDE RECORDS SUMMARY | 2022-06-27 12:50 | XMS_ITS | Encounter Summary ---
:1955 Author Organization [facility] Address [address] [place], [place] [address]. [place] [address] Phone Care Team Providers Name Role Phone Unavailable Primary Care Provider Unavailable Encounter Details Date Type Department Care Team Description 12/09/1998 Orders Only [facility] G[address] [place], [place] [address] Social History Tobacco Use Types [...]
--- OUTSIDE RECORDS SUMMARY | 2022-06-27 12:50 | XMS_ITS | Encounter Summary ---
:1955 Author Organization [facility][Note 3] Address [address] [place] [address] Phone Care Team Providers Name Role Phone Unavailable Primary Care Provider Unavailable Encounter Details Date Type Department Care Team Description 05/15/2003 EWeb History [facility]G Sameera Frances MD [address] [facility] 701 [place], [place] [address] Mail Code P5 [place] [address] (Wo rk) Social History Tobacco Use Types Packs/Day Years Used Date Smoking Tobacco: Never Assessed Sex Assigned at Date Recorded Not on file documented as of this encounter Plan of Treatment Not on filedocumented as of this encounter Visit Diagnoses Not on filedocumented in this encounter
--- OUTSIDE RECORDS SUMMARY | 2022-06-27 12:50 | XMS_ITS | Encounter Summary ---
:1955 Author Organization [facility] Address [address] [place] [address] Phone Care Team Providers Name Role Phone Pcp, No Primary Care Provider Unavailable Reason for Visit Reason Onset Date Comments Refill Request 01/28/2008 Encounter Details Date Type Department Care Team Description 01/28/2008 Refill [facility]FA Urology Omar Savage MD Refill Request [address] [facility], [address] Research Only [place], [place] [address] Social History Tobacco Use Types [...] on filedocumented in this encounter Care Teams Lokie Engineer Relationship Specialty Start Date End Date Pcp, No PCP - General 01/24/08 03/12/09 [facility] [address] documented as of this encounter
--- OUTSIDE RECORDS SUMMARY | 2022-06-27 12:50 | XMS_ITS | Encounter Summary ---
:1955 Author Organization [facility] Address [address] [place] [address] Phone Care Team Providers Name Role Phone [...] 09/19/2001 5:05 PM Re sults for this FEED MIXER HELPER procedure are i n the results section. PSA Routine 09/19/2001 5:05 PM Results f or this DIAGNOSTIC(PROSTATE FEED MIXER HELPER procedur e are in SPE AG the results section. CREATININE, SERUM Routine 09/19/2001 5:05 PM Resu lts for this FEED MIXER HELPER procedure are i n the results section. documented in this encounter Results PSA DIAGNOSTIC(PROSTATE SPE AG (09/19/2001 5:05 PM FEED MIXER HELPER) athologist Signature PSA Diagnostic 0.5 0.00 - 4.00 [facility] LAB NG/ML Specimen Anatomical Collection Method Collection Time Receive d Time (Source) Location / / Volume Laterality Blood 09/19/2001 5:05 PM 2 5:26 FEED MIXER HELPER PM FEED MIXER HELPER Omar Savage MD LABORATORY Performing Organization Address City/State/ZIP Code Phon e Number [facility] LAB BUN (UREA NITROGEN) (09/19/2001 5:05 PM FEED MIXER HELPER) athologist Signature BUN 13 5 - 25 MG/DL [facility] Specimen Anatomical Collection Method Collection Time Receive d Time (Source) Location / / Volume Laterality Blood 09/19/2001 5:05 PM 2 5:26 FEED MIXER HELPER PM FEED MIXER HELPER Omar Savage MD LABORATORY Performing Organization Address City/State/ZIP Code Phon e Number [facility] CREATININE, SERUM (09/19/2001 5:05 PM FEED MIXER HELPER) P athologist Signature Creatinine 0.5 0.5 - 1.4 [facility] MG/DL Specimen Anatomical Collection Method Collection Time Receive d Time (Source) Location / / Volume Laterality Blood 09/19/2001 5:05 PM 2 5:26 FEED MIXER HELPER PM FEED MIXER HELPER Omar Savage MD LABORATORY Performing Organization Address City/State/ZIP Code Phon e Number [facility] LAB documented in this encounter Visit Diagnoses Not on filedocumented in this encounter
--- OUTSIDE RECORDS SUMMARY | 2022-06-27 12:50 | XMS_ITS | Encounter Summary ---
:1955 Author Organization [facility] Address [address] [place] [address] [place] [address] Phone Care Team Providers Name Role Phone Provider, Outside Primary Care Provider Unavailable Encounter Details Date Type Department Care Team Description 04/07/2010 Telephone [facility] Urology Omar Savage MD [address] [facility], [address] Research Only [place], [place] [address] Social History Tobacco Use Types [...] BALL AT 11:30. PLEASE CALL HIM AT [phone] Pt. Name: Khanh Rene : 1955 (home) Insurance: PCP: Outside Provider Comment: Expects Return Call at: documented in this encounter Plan of Treatment Not on filedocumented as of this encounter Visit Diagnoses Not on filedocumented in this encounter Care Teams Office Assistant Receptionist Relationship Specialty Start Date End Date Provider, Outside PCP - General 03/13/09 10/22/18 [place] [address] documented as of this encounter
--- OUTSIDE RECORDS SUMMARY | 2022-06-27 12:50 | XMS_ITS | Encounter Summary ---
:1955 Author Organization [facility] Address [address] [facility] [place] [address] Phone Care Team Providers Name Role Phone Unavailable Primary Care Provider Unavailable Encounter Details Date Type Department Care Team Description 03/04/2003 EWeb History [facility] Surgery Clinic Bubba Tavarez MD [address] Mail Code [address] [place], [place] [address] [place] [address] [phone] (Wo rk) Social History Tobacco Use Types Packs/Day Years Used Date Smoking Tobacco: Never Assessed Sex Assigned at Date Recorded Not on file documented as of this encounter Plan of Treatment Not on filedocumented as of this encounter Visit Diagnoses Not on filedocumented in this encounter
--- OUTSIDE RECORDS SUMMARY | 2022-06-27 12:50 | XMS_ITS | Encounter Summary ---
:1955 Author Organization [facility] Address [address] [place] [address]. [place] [address] Phone Care Team Providers Name Role Phone Unavailable Primary Care Provider Unavailable Encounter Details Date Type Department Care Team Description 09/02/2005 Orders Only [facility] [place] [address] [place], [place] [address] Social History Tobacco Use Types Packs/Day Years Used Date Smoking Tobacco: Never Assessed Sex Assigned at Date Recorded Not on file documented as of this encounter Plan of Treatment Not on filedocumented as of this encounter Procedures Procedure Name Priority Date/Time Associated Diagnosis Comme nts ULT KIDNEYS Routine 09/02/2005 3:16 PM Results f or this COMPLETE DISTRICT OR DISTRICT OFFICE DIRECTOR procedure are i n the results section. documented in this encounter Results ULT KIDNEY COMPLETE (09/02/2005 3:16 PM DISTRICT OR DISTRICT OFFICE DIRECTOR) Anatomical Region Laterality Modality Abdomen Ultrasound Specimen (Source) Anatomical Collection Method Collection Time Re ceived Time Location / / Volume Laterality 09/02/2005 3:16 PM DISTRICT OR DISTRICT OFFICE DIRECTOR Impressions 09/05/2005 9:17 AM DISTRICT OR DISTRICT OFFICE DIRECTOR : ??NO FOCAL MASS, STONE, OR HYDRONEPHROSIS IDENTIFIED WITHIN EITHER KIDNEY. I have personally reviewed the image(s) and initial interpretation, and I agree with the findings. . . Read Date: Sep 02 2005 ??4:12P BENEDICT AU M.D. - STAFF RADIOLOGIST FABIOLA AVALOS M.D. - RESIDENT RADIOLOGIST RELEASE RESULTS: (Y) ASI END: END RESULT: DATE DICTATED: () COMPRESSOR STATION ENGINEER: ( ) IMPRESSION Narrative 09/05/2005 9:17 AM DISTRICT OR DISTRICT OFFICE DIRECTOR FABIOLA AVALOS M.D. - RESIDENT RADIOLOGIST Final Report EXAM: ?? RENAL US: LOWER [place] KIDNEYS ?? 04/2006 15:16 HISTORY: ??Neurogenic bladder. [...] RESIDENT RADIOLOGIST Final Report EXAM: RENAL US: LOWER [place] KIDNEYS 15:16 HISTORY: Neurogenic bladder. COMPARISON: 10/12/01. [...] ASI END: END RESULT: DATE DICTATED: () COMPRESSOR STATION ENGINEER: ( ) IMPRESSION Omar HUMPHREYT documented in this encounter Visit Diagnoses Not on filedocumented in this encounter
--- OUTSIDE RECORDS SUMMARY | 2022-06-27 12:50 | XMS_ITS | Encounter Summary ---
:1955 Author Organization [facility] Address [address] [place] [address] Phone Care Team Providers Name Role Phone Pcp, No Primary Care Provider Unavailable Reason for Visit Reason Comments Follow-up neurogenic bladder Encounter Details Date Type Department Care Team Description 01/29/2009 Office Visit [facility] Urology Omar Savage, Neurogenic Bladder [address] [place] [address] (Primary Dx) [address] Research Only [place], [place] [address] Social History Tobacco Use Types Packs/Day Years Used Date Smoking Tobacco: Never Alcohol Use Standard Drinks/Week Comments Yes 3.3 (1 standard drink = 0.6 oz pure alco hol) Sex Assigned at Date Recorded Not on file documented as of this encounter Progress Notes Omar Savage MD - 02/02/2009 12:28 PM CDT [facility] [address] [facility], [address] [place] [address] (fax) MEDREC#: [id number] PATIENT: MICHEAL FLETCHER : 1955 DATE: 01/29/2009 [...] pinning. The pinning was performed at the [facility]. His pacemaker was placed at the [facility]. I will request laboratory values from both [...] 20 minutes. Omar Savage MD Received in Envelope Machine Adjuster: 01/29/2009 18:41:26 (M: 02/02/2009 08:06:12 sharmila) CS/sjv Voice ID: [id number] Document ID: [id number] cc: Omar Savage MD - 01/29/2009 6:41 [...] NOS documented in this encounter Care Teams Hplc Chemist Relationship Specialty Start Date End Date Pcp, No PCP - General 01/24/08 03/12/09 [place] [place] [address] documented as of this encounter
--- OUTSIDE RECORDS SUMMARY | 2022-06-27 12:50 | XMS_ITS | Encounter Summary ---
:1955 Author Organization [facility] Address [address] [place] [address] Phone Care Team Providers Name Role Phone [...] filedocumented in this encounter Care Teams Radio Adjuster Relationship Specialty Start Date End Date Provider, Outside PCP - General 03/13/09 10/22/18 [place] [address] documented as of this encounter
--- OUTSIDE RECORDS SUMMARY | 2022-06-27 12:50 | XMS_ITS | Encounter Summary ---
:1955 Author Organization [facility] Address [address] [place] [address]. [place] [address] Phone Care Team Providers Name Role Phone Unavailable Primary Care Provider Unavailable Encounter Details Date Type Department Care Team Description 10/12/2001 Orders Only [facility] Ultrasound [address] [place], [place] [address] Social History Tobacco Use Types Packs/Day Years Used Date Smoking Tobacco: Never Assessed Sex Assigned at Date Recorded Not on file documented as of this encounter Plan of Treatment Not on filedocumented as of this encounter Procedures Procedure Name Priority Date/Time Associated Diagnosis Comme nts ULT KIDNEYS Routine 10/12/2001 11:22 AM Results for this COMPLETE MORTGAGE OR LOAN UNDERWRITER procedure are i n the results section. documented in this encounter Results ULT KIDNEY COMPLETE (10/12/2001 11:22 AM MORTGAGE OR LOAN UNDERWRITER) Anatomical Region Laterality Modality Abdomen Ultrasound Specimen (Source) Anatomical Collection Method Collection Time Re ceived Time Location / / Volume Laterality 10/12/2001 11:22 AM MORTGAGE OR LOAN UNDERWRITER Impressions 10/15/2001 4:06 PM MORTGAGE OR LOAN UNDERWRITER : 1. ??NO RENAL STONES IDENTIFIED. 2. ??MILD CORTICAL THINNING BILATERALLY. ??THIS MAY INDICATE MEDICAL RENAL DISEASE. I have personally reviewed the image(s) and initial interpretation, and I agree with the findings. ASI END: RELEASE RESULTS: (Y) END RESULT: IMPRESSION Narrative 10/15/2001 4:06 PM MORTGAGE OR LOAN UNDERWRITER Final Report EXAM: ?? RENAL US: SAMISH KIDNEYS ?- ??10/12/2001 11:22AM SUSPECTED PATHOLOGY: SYMPTOMS [...] the original. Final Report EXAM: RENAL US: SAMISH KIDNEYS - 002 11:22AM SUSPECTED PATHOLOGY: SYMPTOMS [...]
--- OUTSIDE RECORDS SUMMARY | 2022-06-27 12:50 | XMS_ITS | Encounter Summary ---
:1955 Author Organization [facility] Address [address] [place], [place] [address]e. [place] [address] Phone Care Team Providers Name Role Phone Provider, Outside Primary Care Provider Unavailable Encounter Details Date Type Department Care Team Description 05/13/2010 Hospital Encounter [facility] [place] Omar Savage MD [address] Research Only [address] [place], [place] [address] Social History Tobacco Use Types [...] NOS documented in this encounter Care Teams Obstetrics/Gynecology Nurse Relationship Specialty Start Date End Date Provider, Outside PCP - General 03/13/09 10/22/18 [place] [address] documented as of this encounter
--- OUTSIDE RECORDS SUMMARY | 2022-06-27 12:50 | XMS_ITS | Encounter Summary ---
:1955 Author Organization [facility] Address [address] [place] [address] Phone Care Team Providers Name Role Phone Provider, Outside Primary Care Provider Unavailable Reason for Visit Reason Comments Follow-up Encounter Details Date Type Department Care Team Description 04/01/2010 Office Visit [facility] Urology Omar Savage, Neurogenic bladder; [address] [place] [address] Screening for prostate cancer [address] Research Only [place], [place] [address] Social History Tobacco Use Types Packs/Day Years [...] Savage MD - 04/05/2010 1:22 PM CDT [facility] [address] [facility], [address] [place] [address] (fax) [facility]#: [id number] PATIENT: MICHEAL FLETCHER : 1955 DATE: 04/01/2010 [...] MD Staff Physician Surgery Service Received in Psychiatric Aide Instructor: 04/02/2010 14:55 M: 04/02/2010 22:48 kn CS/kn Voice ID: [id number] Document ID: [id number] Omar Savage MD - 04/02/2010 2:55 PM [...] NOS documented in this encounter Care Teams Rubber Trimmer Relationship Specialty Start Date End Date Provider, Outside PCP - General 03/13/09 10/22/18 [place] [address] documented as of this encounter
--- OUTSIDE RECORDS SUMMARY | 2022-06-27 12:50 | XMS_ITS | Encounter Summary ---
:1955 Author Organization [facility] Address [address] [place] [address] Phone Care Team Providers Name Role Phone Pcp, No Primary Care Provider Unavailable Encounter Details Date Type Department Care Team Description 01/29/2008 Letters(Tab) [facility] U[facility] Clinic Omar Savage MD [facility] [address] [place] [address] P5.620 [place], [place] [address] Social History Tobacco Use Types Packs/Day Years Used Date Smoking Tobacco: Never Alcohol Use Standard Drinks/Week Comments Yes 3.3 (1 standard drink = 0.6 oz pure alco hol) Sex Assigned at Date Recorded Not on file documented as of this encounter Progress Notes Omar Savage MD - 01/30/2008 7:[address] [facility] [address] [place] [address] 01/29/2008 TO: Micheal Rene [address] [place] [address] RE: MICHEAL RENE MR#: [id number] Dear Mr. Rene: From your recent Urology Clinic visit, your laboratory values remain stable. Your serum creatinine remains low because of your low body mass. It is 0.29. Your prostate-specific antigen blood test is 2.38, with normal up to 4. We await your return visit in one year. Best wishes. Sincerely, Omar Savage MD Received in Instrument/Control Technician: 01/29/2008 16:28:05 (M: 01/30/2008 02:45:25 jlb) CS/golden Voice ID: [id number] Document ID: [id number] cc: Micheal Rene documented in this encounter Plan of Treatment Not on filedocumented as of this encounter Visit Diagnoses Not on filedocumented in this encounter Care Teams Olive Grader Relationship Specialty Start Date End Date Pcp, No PCP - General 01/24/08 03/12/09 [facility] [place] [address] documented as of this encounter
--- OUTSIDE RECORDS SUMMARY | 2022-06-27 12:50 | XMS_ITS | Encounter Summary ---
:1955 Author Organization [facility] Address [address] [place] [address] Phone Care Team Providers Name Role Phone Provider, Outside Primary Care Provider Unavailable Reason for Visit Reason Onset Date Comments Refill Request 04/30/2010 Encounter Details Date Type Department Care Team Description 04/30/2010 Refill HFA Urology Omar Savage MD Refill Request [address] [facility], [address] [place], [place] [address] Social History Tobacco Use Types [...] NOS documented in this encounter Care Teams Full Stack Net Developer Relationship Specialty Start Date End Date Provider, Outside PCP - General 03/13/09 10/22/18 [place] [address] documented as of this encounter
--- OUTSIDE RECORDS SUMMARY | 2022-06-27 12:50 | XMS_ITS | Encounter Summary ---
:1955 Author Organization [facility] Address [address] [place] [address] Phone Care Team Providers Name Role Phone Unavailable Primary Care Provider Unavailable Encounter Details Date Type Department Care Team Description 05/10/2005 Notes/Trans Unknown, Provider Social History Tobacco Use Types Packs/Day Years Used Date Smoking Tobacco: Never Assessed Sex Assigned at Date Recorded Not on file documented as of this encounter Progress Notes Interface, Library Media Specialist-In - 11/15/2005 12:30 AM CDT [facility] MEDREC#: [id number] [place] [address] PATIENT: MICHEAL FLETCHER : 1955 NARRATIVE NOTES [...] a father and a grandfather living in [place]. REVIEW OF SYSTEMS: A total of ten [...] depression. Equipment - he has a new UTILICASEie wheelchair and a J cushion with extra [...] Physical Medicine and Rehabilitation Service Received in Library Media Specialist: 05/10/2005 17:00:07 (M: 05/12/2005 12:51:56/[facility]) [facility]/cme Voice ID: [id number] Document ID: [id number] cc: This document was electronically signed by Sameera Frances MD on 06/07/2005 14:43:43. documented in this encounter Plan of Treatment Not on filedocumented as of this encounter Visit Diagnoses Not on filedocumented in this encounter
--- OUTSIDE RECORDS SUMMARY | 2022-06-27 12:50 | XMS_ITS | Encounter Summary ---
:1955 Author Organization [facility] Address [address] [place] [address] Phone Care Team Providers Name Role Phone Provider, Outside Primary Care Provider Unavailable Encounter Details Date Type Department Care Team Description 08/30/2010 Telephone [facility] Physical Therap y Reece Ziegler, [place] [address] [facility] [address] [place] [address] Social History Tobacco Use Types Packs/Day Years [...] 08/30/2010 11:12 AM To: Neurology Team Pool [facility] ----- Message ----- From: Nola Espino Sent: 08/27/2010 1:52 PM To: Neurology Safety And Health Consultant Pool Patient: Khanh Rene : 1955 Called to schedule an appointment with provider:Dr. Frances No appointments available: with preferred provider.. Date and time requested: caryn Reason for visit: Pt has a pressure sore, and needs a FU appt Phone number for return call: [phone] Monday08/30/10. Khanh Rene will need to [facility] at [phone] to schedule a follow up visit with Dr Frances in her PM&R Clinic. We will call Khanh and inform him of this. Reece Ziegler RN PMENT OPERATOR documented in this encounter Plan of Treatment Not on filedocumented as of this encounter Visit Diagnoses Not on filedocumented in this encounter Care Teams Frit Maker Relationship Specialty Start Date End Date Provider, Outside PCP - General 03/13/09 10/22/18 [place] [address] documented as of this encounter
--- OUTSIDE RECORDS SUMMARY | 2022-06-27 12:50 | XMS_ITS | Encounter Summary ---
:1955 Author Organization [facility] Address [address] [place] [address] Phone Care Team Providers Name Role Phone Provider, Outside Primary Care Provider Unavailable Encounter Details Date Type Department Care Team Description 05/17/2010 Letters(Tab) HFA Urology Omar Savage MD [address] [place] [address], [address] Research Only [place] [address] Social History Tobacco Use Types Packs/Day Years Used Date Smoking Tobacco: Never Alcohol Use Standard Drinks/Week Comments Yes 3.3 (1 standard drink = 0.6 oz pure alco hol) Sex Assigned at Date Recorded Not on file documented as of this encounter Progress Notes Omar Savage MD - 05/18/2010 6:[address] [facility] [address] [place] [address] May 17, 2010 TO: Micheal Rene [address] [facility] [place] [address] RE:MICHEAL RENE MR#:[id number] :1955 Dear Mr. Rene: From your recent urology clinic visit, the renal ultrasound that was performed does not show any evidence of kidney abnormalities. There is no dilation, no hydronephrosis or stones noted. Best wishes. Look forward to seeing you in 1 year. Please feel free to contact me for questions. Sincerely, Omar Savage MD Staff Physician Surgery Service Received in Jet Piercer Operator: 05/17/2010 21:18 M: 05/18/2010 03:15 javon CS/javon Voice ID: [id number] Document ID: [id number] cc:Micheal Rene [address] [place] Espino [id number] documented in this encounter Plan of Treatment Not on filedocumented as of this encounter Visit Diagnoses Not on filedocumented in this encounter Care Teams Carton Inspector Relationship Specialty Start Date End Date Provider, Outside PCP - General 03/13/09 10/22/18 [place] [address] documented as of this encounter
--- OUTSIDE RECORDS SUMMARY | 2022-06-27 12:50 | XMS_ITS | Encounter Summary ---
:1955 Author Organization [facility] Address [address] [place] [address] Phone Care Team Providers Name Role Phone Unavailable Primary Care Provider Unavailable Encounter Details Date Type Department Care Team Description 08/18/2005 Notes/Trans Unknown, Provider Social History Tobacco Use Types Packs/Day Years Used Date Smoking Tobacco: Never Assessed Sex Assigned at Date Recorded Not on file documented as of this encounter Progress Notes Interface, Insole Doubler-In - 11/15/2005 1:28 AM CDT [facility] [id number] [facility] PATIENT: MICHEAL FLETCHER [address] [facility] : 1955 [place] [address] DATE: 08/18/2005 Page (fax) The patient is [...] KEFLEX, SHELLFISH, AND AUGMENTIN. His primary care field traffic investigator is Dr. Sameera Frances whom he [...] year's time. Omar Savage MD Received in Insole Doubler: 08/22/2005 18:11:27 (M: 08/24/2005 17:01:36 cb) CS/cb Voice ID: [id number] Document ID: [id number] cc: This document was electronically signed by Omar Savage MD on 08/26/2005 10:47:02. ? documented in this encounter Plan of Treatment Not on filedocumented as of this encounter Visit Diagnoses Not on filedocumented in this encounter
--- OUTSIDE RECORDS SUMMARY | 2022-06-27 12:50 | XMS_ITS | Encounter Summary ---
:1955 Author Organization [facility] Address [address] [place] [address] Phone Care Team Providers Name Role Phone Provider, Outside Primary Care Provider Unavailable Reason for Visit Reason Onset Date Comments Refill Request 10/21/2009 Encounter Details Date Type Department Care Team Description 10/21/2009 Refill HFA Urology Omar Savage MD Refill Request [address] [facility], [address] Research [place], [place] [address] Social History Tobacco Use [...] NOS documented in this encounter Care Teams Large Animal Veterinarian Relationship Specialty Start Date End Date Provider, Outside PCP - General 03/13/09 10/22/18 [place] [address] documented as of this encounter
--- OUTSIDE RECORDS SUMMARY | 2022-06-27 12:50 | XMS_ITS | Encounter Summary ---
:1955 Author Organization [facility] Address [address] [place] [address] Phone Care Team Providers Name Role Phone Pcp, No Primary Care Provider Unavailable Reason for Visit Reason Comments Follow-up med check-in Encounter Details Date Type Department Care Team Description 01/24/2008 Office Visit HFA Urology Omar Savage, Neurogenic Bladder [address] [facility] (Primary Dx) [address] Research Only [place], [place] [address] Social History Tobacco Use Types Packs/Day Years Used Date Smoking Tobacco: Never Alcohol Use Standard Drinks/Week Comments Yes 3.3 (1 standard drink = 0.6 oz pure alco hol) Sex Assigned at Date Recorded Not on file documented as of this encounter Progress Notes Omar Savage MD - 01/29/2008 2:47 PM CDT [facility] [address] [facility] [place] [address] (fax) MEDREC#: [id number] PATIENT: MICHEAL RENE : 1955 DATE: 01/24/2008 [...] this examination. Omar Savage MD Received in Tow Motor Operator: 01/24/2008 17:47:53 (M: 01/29/2008 08:19:42 aml) CS/aml Voice ID: [id number] Document ID: [id number] cc: Omar Savage MD - 01/24/2008 5:48 [...] eGFR, >60 mL/min/1.73 HFA LAB Non- m2 Sudanese Specimen Anatomical Collection Method Collection Time Receive d Time (Source) Location / / Volume Laterality Blood 01/24/2008 4:05 PM 8 4:29 CDT PM CDT Omar Savage MD LABORATORY Performing Organization Address City/[facility]/ZIP Code Phon e Number HFA LAB GLOMERULAR FILTRATION RATE B (01/24/2008 4:05 PM CDT) P athologist Signature eGFR, >60 mL/min/1.73 HFA LAB Sudanese m2 Comment: IDMS TRACEABLE CALIBRATION EFFECTIVE 08/16/2007 Specimen Anatomical Collection Method Collection Time Receive d Time (Source) Location / / Volume Laterality Blood 01/24/2008 4:05 PM 8 4:29 CDT PM CDT Omar Savage MD LABORATORY Performing Organization Address City/[facility]/ZIP Code Phon e Number HFA LAB (ABNORMAL) [...] NOS documented in this encounter Care Teams Pneumatic Deicer Inspector Relationship Specialty Start Date End Date Pcp, No PCP - General 01/24/08 03/12/[address] [facility] [place] [address] documented as of this encounter
--- OUTSIDE RECORDS SUMMARY | 2022-06-27 12:50 | XMS_ITS | Encounter Summary ---
:1955 Author Organization [facility] Address [address] [place] [address] Phone Care Team Providers Name Role Phone Provider, Outside Primary Care Provider Unavailable Reason for Visit Reason Comments Follow-up 13 months follow up visit [facility] Dr Frances HFA Monday PM&R Clinic for DX of C7 Spinal Cord Injury Encounter Details Date Type Department Care Team Description 04/20/2010 Office Visit HFA Neuromuscular Sameera Frances Don plegia () Clinic MD [place] (Primary Dx) [address], [address] [place] [address] Mail Code P5 [place], [place] [address] [place], [place] [phone] Social History Tobacco Use Types Packs/Day Years [...] Frances for: 1) Wheelchair repair/s. Faxed to [facility] ([phone]) Referral to [facility]) Formal Wheelchair and wheeled mobility clinic faxedto scheduling to call Micheal to get scheduled ([phone]) Blanca Ziegler RN documented in this encounter Progress Notes Sameera Frances MD - 05/13/2010 3:35 PM CDT [facility] [address] [facility] [place] [address] (fax) MEDREC#: [id number] PATIENT: MICHEAL FLETCHER : 1955 DATE: 04/20/2010 NEUROMUSCULAR PHYSICAL MEDICINE NOTE HISTORY OF PRESENT ILLNESS: Micheal Fletcher is a 55-year-old gentleman with a C7 [place] Spinal Cord Injury Association B spinal cord [...] be broken as far the spokes. The [id number] stability is poor. The back of the [...] and recommended he see the [facility] for a mapping of his buttocks and a more complete evaluation of his wheelchair. I do not think we need any changes in medications for spasticity. Sameera Frances MD Staff Physician Physical Medicine and Rehabilitation Service Received in Case Resolution Specialist: 05/11/2010 20:55 M: 05/13/2010 10:09 ms CLR/ms Voice ID: [id number] Document ID: [id number] cc:[place] [address] Sameera Frances MD - 04/20/2010 11:01 AM [...] unspecified documented in this encounter Care Teams Slot Floor Person Relationship Specialty Start Date End Date Provider, Outside PCP - General 03/13/09 10/22/18 [place] [address] documented as of this encounter
--- OUTSIDE RECORDS SUMMARY | 2022-06-27 12:50 | XMS_ITS | Encounter Summary ---
:[address] [facility] Address [address] [place] [address] Phone Care Team Providers Name Role Phone Unavailable Primary Care Provider Unavailable Reason for Visit Reason Comments Follow-up Encounter Details Date Type Department Care Team Description 07/31/2007 Office Visit [facility] Phys Med/Rehab Sameera Frances Q uadriplegia (); Clinic Neurogenic Bowel; [address] [facility] P5.200 Mail Code P5 [place], [place] [address] [place], [place] [phone] (Wo rk) Social History Tobacco Use Types Packs/Day Years Used Date Smoking Tobacco: Never Alcohol Use Standard Drinks/Week Comments Yes 3.3 (1 standard drink = 0.6 oz pure alco hol) Sex Assigned at Date Recorded Not on file documented as of this encounter Last Filed Vital Signs Vital Sign Reading Time Taken Comments Blood Pressure 91/64 07/31/2007 3:21 PM STORE ADMINISTRATIVE ASSISTANT Pulse 81 07/31/2007 3:21 PM STORE ADMINISTRATIVE ASSISTANT Temperature - - Respiratory Rate - - Oxygen Saturation - - Inhaled Oxygen Concentration - - Weight - - Height 6 cm (2.36) 07/31/2007 3:21 PM STORE ADMINISTRATIVE ASSISTANT Body Mass Index - - documented in this encounter Progress Notes Sameera Frances MD - 08/15/2007 11:05 [place] [address] MEDREC#: [id number] PATIENT: MICHEAL RENE : 1955 DATE: 07/31/2007 PHYSICAL MEDICINE AND REHABILITATION NEUROLOGY CLINIC ADDENDUM: Again, under recommendations, I did talk to him that now he is 49 that he really should have an cadd drafter who can coordinate his prophylactic care while he ages, in particular heart disease and prostate concerns. He is not interested and would just prefer to treat things as they come up, and declined my offers to arrange him with a Primary Care physician. Sameera Frances MD Staff Physician Physical Medicine and Rehabilitation Service Received in Product Marketing Analyst: 08/02/2007 15:01:18 (M: 08/06/2007 11:31:55/dd:st) CLR/dd:st Voice ID: [id number] Document ID: [id number] cc: E ADMINISTRATIVE ASSISTANT Sameera Frances MD - 08/15/2007 11:05 [place] [address] [facility]#: [id number] PATIENT: MICHEAL RENE : 1955 DATE: 07/31/2007 [...] father and a grandfather. He lives in [place] and just recently he has started to [...] He has just received a new manual Volusionie wheelchair with a J-cushion and he is [...] he likes because of stability. ASSESSMENT: C7 [place] Spinal Injury Association (AUDREY) A chronic spinal [...] Physical Medicine and Rehabilitation Service Received in Product Marketing Analyst: 08/02/2007 14:58:39 (M: 08/06/2007 11:12:53/dd:st) CLR/dd:st Voice ID: [id number] Document ID: [id number] cc: E ADMINISTRATIVE ASSISTANT Sameera Frances MD - 08/02/2007 3:01 PM CST HPI ROS Physical Exam See my dictation for today. E ADMINISTRATIVE ASSISTANT documented in this encounter Plan of Treatment Not on filedocumented as of this encounter Visit Diagnoses Diagnosis Quadriplegia () Quadriplegia, unspecified Neurogenic bowel Spastic Abnormal involuntary movements documented in this encounter
--- OUTSIDE RECORDS SUMMARY | 2022-06-27 12:50 | XMS_ITS | Encounter Summary ---
:1955 Author Organization [facility] Address [address] [place] [address] Phone Care Team Providers Name Role Phone [...] 08/18/2005 12:00 AM R esults for this INFORMATION SYSTEMS COORDINATOR procedure are i n the results section. PSA-SCREENING(MT) Routine 08/18/2005 12:00 AM Res ults for this INFORMATION SYSTEMS COORDINATOR procedure are i n the results section. CREATININE, SERUM Routine 08/18/2005 12:00 AM Res ults for this INFORMATION SYSTEMS COORDINATOR procedure are i n the results section. documented in this encounter Results PSA-SCREENING(MT) (08/18/2005 12:00 AM INFORMATION SYSTEMS COORDINATOR) athologist Signature PSA Screen 2.6 0.00 - 4.00 HFA LAB NG/ML Specimen (Source) Anatomical Collection Method Collection Time Re ceived Time Location / / Volume Laterality Blood 08/18/2005 08/18/2005 5:07 PM INFORMATION SYSTEMS COORDINATOR Omar Savage MD LABORATORY Performing Organization Address City/State/ZIP Code Phon e Number HFA LAB BUN (UREA NITROGEN) (08/18/2005 12:00 AM INFORMATION SYSTEMS COORDINATOR) athologist Signature BUN 9 5 - 25 MG/DL HFA LAB Specimen (Source) Anatomical Collection Method Collection Time Re ceived Time Location / / Volume Laterality Blood 08/18/2005 08/18/2005 5:07 PM INFORMATION SYSTEMS COORDINATOR Omar Savage MD LABORATORY Performing Organization Address City/State/ZIP Code Phon e Number HFA LAB CREATININE, SERUM (08/18/2005 12:00 AM INFORMATION SYSTEMS COORDINATOR) P athologist Signature Creatinine <0.5 0.5 - 1.4 HFA LAB MG/DL Comment: REPEATED Specimen (Source) Anatomical Collection Method Collection Time Re ceived Time Location / / Volume Laterality Blood 08/18/2005 08/18/2005 5:07 PM INFORMATION SYSTEMS COORDINATOR Omar Savage MD LABORATORY Performing Organization Address City/State/ZIP Code Phon e Number HFA LAB documented in this encounter Visit Diagnoses Not on filedocumented in this encounter
--- OUTSIDE RECORDS SUMMARY | 2022-06-27 12:51 | XMS_ITS | Encounter Summary ---
:1955 Author Organization [facility] Address [address] [place] [address] Phone Care Team Providers Name Role Phone Unavailable Primary Care Provider Unavailable Encounter Details Date Type Department Care Team Description 07/03/1995 Orders Only [facility] XRAY [address] [place], [place] [address] Social History Tobacco Use Types Packs/Day Years Used Date Smoking Tobacco: Never Assessed Sex Assigned at Date Recorded Not on file documented as of this encounter Plan of Treatment Not on filedocumented as of this encounter Procedures Procedure Name Priority Date/Time Associated Diagnosis Comme nts XR COCCYX AP & LAT Routine 07/03/1995 2:10 PM Res ults for this LIFE SUPPORT TECHNICIAN procedure are i n the results section. documented in this encounter Results XR COCCYX AP & LAT (07/03/1995 2:10 PM LIFE SUPPORT TECHNICIAN) Anatomical Region Laterality Modality Lumbar Spine Computed Radiography Specimen (Source) Anatomical Collection Method Collection Time Re ceived Time Location / / Volume Laterality 07/03/1995 2:10 PM LIFE SUPPORT TECHNICIAN Impressions 07/05/1995 12:33 PM LIFE SUPPORT TECHNICIAN : ??Please see Sacrum report dated 07/03/95 1410. ASI END: RELEASE RESULTS: (Y) END RESULT: IMPRESSION Narrative 07/05/1995 12:33 PM LIFE SUPPORT TECHNICIAN Final Report EXAM: ?? COCCYX AP & [...]
--- OUTSIDE RECORDS SUMMARY | 2022-06-27 12:51 | XMS_ITS | Encounter Summary ---
:1955 Author Organization [facility] Address [address] [place] [address] Phone Care Team Providers Name Role Phone [...]
--- OUTSIDE RECORDS SUMMARY | 2022-06-27 12:51 | XMS_ITS | Encounter Summary ---
:1955 Author Organization [facility] Address [address] [place] [address] Phone Care Team Providers Name Role Phone [...]
--- OUTSIDE RECORDS SUMMARY | 2022-06-27 12:51 | XMS_ITS | Encounter Summary ---
:1955 Author Organization [facility] Address [address] [place] [address] Phone Care Team Providers Name Role Phone Unavailable Primary Care Provider Unavailable Encounter Details Date Type Department Care Team Description 04/03/1997 Orders Only [facility] XRAY [address] [place], [place] [address] Social History Tobacco Use Types [...]
--- OUTSIDE RECORDS SUMMARY | 2022-06-27 12:51 | XMS_ITS | Encounter Summary ---
:1955 Author Organization [facility] Address [address] [place], [place] [address] [place] [address] Phone Care Team Providers Name Role Phone Unavailable Primary Care Provider Unavailable Encounter Details Date Type Department Care Team Description 04/03/1997 Orders Only [facility] Ultrasound [address] [place], [place] [address] Social History Tobacco Use Types Packs/Day Years [...] CDT Final Report EXAM: ?? RENAL US: PECHANGA KIDNEYS ?- ??04/03/1997 01:10PM ?? EXAM: ??RENAL [...] - 03/10/2006 Final Report EXAM: RENAL US: PECHANGA KIDNEYS - 997 01:10PM EXAM: RENAL ULTRASOUND [...]
--- OUTSIDE RECORDS SUMMARY | 2022-06-27 12:51 | XMS_ITS | Encounter Summary ---
:1955 Author Organization [facility] Address [address] [place] [address] Phone Care Team Providers Name Role Phone Unavailable Primary Care Provider Unavailable Encounter Details Date Type Department Care Team Description 07/03/1995 Orders Only [facility] [address] [place], [place] [address] Social History Tobacco Use Types Packs/Day Years Used Date Smoking Tobacco: Never Assessed Sex Assigned at Date Recorded Not on file documented as of this encounter Plan of Treatment Not on filedocumented as of this encounter Procedures Procedure Name Priority Date/Time Associated Diagnosis Comme nts XR SACRUM AP & LAT Routine 07/03/1995 2:10 PM Res ults for this [employer] procedure are i n the results section. XR COCCYX AP & LAT Routine 07/03/1995 2:10 PM Res ults for this [employer] procedure are i n the results section. documented in this encounter Results XR COCCYX AP & LAT (07/03/1995 2:10 PM [employer]) Anatomical Region Laterality Modality Lumbar Spine Computed Radiography Specimen (Source) Anatomical Collection Method Collection Time Re ceived Time Location / / Volume Laterality 07/03/1995 2:10 PM [employer] Impressions 07/05/1995 12:33 PM [employer] : ??Please see Sacrum report dated 07/03/95 1410. ASI END: RELEASE RESULTS: (Y) END RESULT: IMPRESSION Narrative 07/05/1995 12:33 PM [employer] Final Report EXAM: ?? COCCYX AP & [...] SACRUM AP & LAT (07/03/1995 2:10 PM [employer]) Anatomical Region Laterality Modality Lumbar Spine Computed Radiography Specimen (Source) Anatomical Collection Method Collection Time Re ceived Time Location / / Volume Laterality 07/03/1995 2:10 PM [employer] Impressions 07/05/1995 12:33 PM [employer] : ??Evidence of bone loss or destruction [...] END RESULT: IMPRESSION Narrative 07/05/1995 12:33 PM [employer] Final Report EXAM: ?? SACRUM AP & [...]
--- OUTSIDE RECORDS SUMMARY | 2022-06-27 12:52 | XMS_ITS ---
:1955 Author Care Team Providers Name Role Phone CHETNA MERAZ MD Primary Care Provider [phone] ANN MCLAININA Training Instructor [phone] Allergies Code Code System Name Reaction Severity [...] MOUTH ONCE A DAY FOR 10 DAYS [id number]-[id number]-oyzyumcxd 3.5 mg-10,000 unit/mL-1 % ear d rops,susp [...] Name Performed by ? 09/27/2021 US, [facility] Radiology Department [address] [place] [address] (Work Place) Results Lab Results Date Name Specimen Result Interpretation Description Value Range Status Address ? 05/06/2021 Culture, BLDV ABNORMAL Final Report microbiology ? Final [place] U[place] results [facility] Lab: [address], [place] 05/06/2021 Urinalysis ? No ? ? ? , Dipstick observation recorded. 02/18/2021 Culture, UR ABNORMAL Final Report microbiology ? Final [place] Urine results [facility] [place] Lab: [address], [place] ? Urinalysis ? Color-Status Yellow ? [...] ? ? ? Sp 1.015 ? ? [place]-Statu s ? ? ? Nitrates-Sta positive ? ? tus ? ? ? Blood-Status Trace ? Leuko-Status Large ? ? Past Encounters Encounter Date Diagnosis Provider 09/27/2021 Neurogenic Bladder; Spinal Cord Jono Pagan MD: [address]; Spasm of Bladder; Recurrent [address], [place], [place] Urinary Tract Infection [id number], Ph. 05/06/2021 Abnormal Urine Jono Pagan MD: [address], [place] [address], Ph. 02/18/2021 Neurogenic Bladder; Spinal Cord Jono Pagan MD: [address] Injury; Spasm of Bladder; Recurrent [address], [place], [place] Urinary Tract Infection; Acute [phone], Ph. Urinary Tract Infection Social History Tobacco Smoking Status Former Smoker [...]
--- OUTSIDE RECORDS SUMMARY | 2022-06-27 12:52 | XMS_ITS | Clinical Summary ---
:1955 Author Organization [employer] [facility] [place] [address] Care Team Providers Name Role Phone Ana Mayers Unavailable Alex Mata MD Primary Care Provider [phone] Allergies Active Allergy Reactions Severity Noted Date Comments Blood-Group Specific Other - Describe In 04/19/2021 Patient has Levi saucedo Substance Comment Field (Fya) antibody . Blood products may be delayed. Dra renee patient 24 hour s prior to transfusion. Fo r [employer] testing, draw o ne red top and [...] Encounters Date Type Specialty Care Team Description 06/22/2022 Lab Requisition Alex Mata MD 06/15/2022 Lab Requisition Alex Mata MD 06/08/2022 [...] Care Team Description 07/06/2022 Cardiac Device Check 08/24/2022 Office Visit Dariel Modi MD [address] [place] [facility] [place] [address] (Wo rk) Health Maintenance Due Date Last Done Comments [...] 12/26/2008, 09/01/2006 Medical Devices Implanted Type Area Light Industrial Supervisor Device Shelf Model / Identifier Expiration Serial / Date Lot Standard Pacemaker-12/21/2012 Standard Medtronic [id number] / Implanted: 12/21/2012 by Judson Jenkins MD (Quantity not on file) Pacemaker [id number] / Procedures Procedure Name Priority Date/Time Associated Diagnosis Comme nts CBC WITH AUTO Routine 06/22/2022 12:15 Osteomyelitis of Result s for this DIFFERENTIAL PM RESEARCH MICROBIOLOGIST vertebra, sacral and procedu re are in sacrococcygeal region the re sults (HC) section. Pressure ulcer of right buttock, stage 4 (HC) CREATININE Routine 06/22/2022 12:15 Osteomyelitis of Results for this PM RESEARCH MICROBIOLOGIST vertebra, sacral and procedu re are in sacrococcygeal region the re sults (HC) section. Pressure ulcer of right buttock, stage 4 (HC) C-REACTIVE PROTEIN Routine 06/22/2022 12:15 Osteomyelitis of R esults for this PM RESEARCH MICROBIOLOGIST vertebra, sacral and procedu re are in sacrococcygeal region the re sults (HC) section. Pressure ulcer of right buttock, stage 4 (HC) BUN Routine 06/22/2022 12:15 Osteomyelitis of Results for this PM RESEARCH MICROBIOLOGIST vertebra, sacral and procedu re are in sacrococcygeal region the re sults (HC) section. Pressure ulcer of right buttock, stage 4 (HC) AST (SGOT) Routine 06/22/2022 12:15 Osteomyelitis of Results for this PM RESEARCH MICROBIOLOGIST vertebra, sacral and procedu re are in sacrococcygeal region the re sults (HC) section. Pressure ulcer of right buttock, stage 4 (HC) SEDIMENTATION RATE Routine 06/22/2022 12:15 Osteomyelitis of R esults for this PM RESEARCH MICROBIOLOGIST vertebra, sacral and procedu re are in sacrococcygeal region the re sults (HC) section. Pressure ulcer of right buttock, stage 4 (HC) CBC WITH AUTO Routine 06/22/2022 12:15 Osteomyelitis of Result s for this DIFFERENTIAL PM RESEARCH MICROBIOLOGIST vertebra, sacral and procedu re are in sacrococcygeal region the re sults (HC) section. Pressure ulcer of right buttock, stage 4 (HC) CBC WITH AUTO Routine 06/15/2022 1:20 Osteomyelitis of Results for this DIFFERENTIAL PM RESEARCH MICROBIOLOGIST vertebra, sacral and procedu re are in sacrococcygeal region the re sults (HC) section. Pressure ulcer of right buttock, stage 4 (HC) CREATININE Routine 06/15/2022 1:20 Osteomyelitis of Results for this PM RESEARCH MICROBIOLOGIST vertebra, sacral and procedu re are in sacrococcygeal region the re sults (HC) section. Pressure ulcer of right buttock, stage 4 (HC) C-REACTIVE PROTEIN Routine 06/15/2022 1:20 Osteomyelitis of Re sults for this PM RESEARCH MICROBIOLOGIST vertebra, sacral and procedu re are in sacrococcygeal region the re sults (HC) section. Pressure ulcer of right buttock, stage 4 (HC) BUN Routine 06/15/2022 1:20 Osteomyelitis of Results for this PM RESEARCH MICROBIOLOGIST vertebra, sacral and procedu re are in sacrococcygeal region the re sults (HC) section. Pressure ulcer of right buttock, stage 4 (HC) AST (SGOT) Routine 06/15/2022 1:20 Osteomyelitis of Results for this PM RESEARCH MICROBIOLOGIST vertebra, sacral and procedu re are in sacrococcygeal region the re sults (HC) section. Pressure ulcer of right buttock, stage 4 (HC) SEDIMENTATION RATE Routine 06/15/2022 1:20 Osteomyelitis of Re sults for this PM RESEARCH MICROBIOLOGIST vertebra, sacral and procedu re are in sacrococcygeal region the re sults (HC) section. Pressure ulcer of right buttock, stage 4 (HC) CBC WITH AUTO Routine 06/15/2022 1:20 Osteomyelitis of Results for this DIFFERENTIAL PM RESEARCH MICROBIOLOGIST vertebra, sacral and procedu re are in sacrococcygeal region the re sults (HC) section. Pressure ulcer of right buttock, stage 4 (HC) CBC WITH AUTO Routine 06/08/2022 12:00 Results fo r this DIFFERENTIAL PM RESEARCH MICROBIOLOGIST procedure are i n the results section. CREATININE Routine 06/08/2022 12:00 Results for this PM RESEARCH MICROBIOLOGIST procedure are i n the results section. C-REACTIVE PROTEIN Routine 06/08/2022 12:00 Resul ts for this PM RESEARCH MICROBIOLOGIST procedure are i n the results section. BUN Routine 06/08/2022 12:00 Results for this PM RESEARCH MICROBIOLOGIST procedure are i n the results section. AST (SGOT) Routine 06/08/2022 12:00 Results for this PM RESEARCH MICROBIOLOGIST procedure are i n the results section. SEDIMENTATION RATE Routine 06/08/2022 12:00 Resul ts for this PM RESEARCH MICROBIOLOGIST procedure are i n the results section. CBC WITH AUTO Routine 06/08/2022 12:00 Results fo r this DIFFERENTIAL PM RESEARCH MICROBIOLOGIST procedure are i n the results section. SEDIMENTATION RATE Routine 06/01/2022 1:15 Osteomyelitis of Re sults for this PM RESEARCH MICROBIOLOGIST vertebra, sacral and procedu re are in sacrococcygeal region the re sults (HC) section. Pressure ulcer of right buttock, stage 4 (HC) CBC WITH AUTO Routine 06/01/2022 1:15 Osteomyelitis of Results for this DIFFERENTIAL PM RESEARCH MICROBIOLOGIST vertebra, sacral and procedu re are in sacrococcygeal region the re sults (HC) section. Pressure ulcer of right buttock, stage 4 (HC) CREATININE Routine 06/01/2022 1:15 Osteomyelitis of Results for this PM RESEARCH MICROBIOLOGIST vertebra, sacral and procedu re are in sacrococcygeal region the re sults (HC) section. Pressure ulcer of right buttock, stage 4 (HC) C-REACTIVE PROTEIN Routine 06/01/2022 1:15 Osteomyelitis of Re sults for this PM RESEARCH MICROBIOLOGIST vertebra, sacral and procedu re are in sacrococcygeal region the re sults (HC) section. Pressure ulcer of right buttock, stage 4 (HC) BUN Routine 06/01/2022 1:15 Osteomyelitis of Results for this PM RESEARCH MICROBIOLOGIST vertebra, sacral and procedu re are in sacrococcygeal region the re sults (HC) section. Pressure ulcer of right buttock, stage 4 (HC) AST (SGOT) Routine 06/01/2022 1:15 Osteomyelitis of Results for this PM RESEARCH MICROBIOLOGIST vertebra, sacral and procedu re are in sacrococcygeal region the re sults (HC) section. Pressure ulcer of right buttock, stage 4 (HC) CBC WITH AUTO Routine 06/01/2022 1:15 Osteomyelitis of Results for this DIFFERENTIAL PM RESEARCH MICROBIOLOGIST vertebra, sacral and procedu re are in [...] Last 3 Months Results (ABNORMAL) SEDIMENTATION RATE (06/22/2022 12:15 PM RESEARCH MICROBIOLOGIST)Only the most recent of5 resultswithin the time period is included. [facility] Method Time Signature SEDIMENTATION 118 (H) <20 mm/hr 06/22/2022 [place] RATE 1:17 PM [facility] LABORATORY Specimen Anatomical Collection Method Collection Time Receive d Time (Source) Location / / Volume Laterality Blood BLOOD SPECIMEN / Client Collect / 06/22/2022 12:15 1:04 Unknown Unknown PM RESEARCH MICROBIOLOGIST PM RESEARCH MICROBIOLOGIST Alex Mata MD HEMATOLOGY Performing Organization Address City/State/ZIP Code Phon e Number [facility] [address] [place] [address] (ABNORMAL) CBC WITH AUTO DIFFERENTIAL (06/22/2022 12:15 PM RESEARCH MICROBIOLOGIST)Only the most recent of5 resultswithin the time period is included. [facility] Method Time Signature WHITE BLOOD 4.3 (L) 4.5 - 06/22/2022 [place] COUNT 11.0 1:11 PM [facility] thou/cu LABORATORY mm RED BLOOD COUNT 3.25 (L) 4.30 - 06/22/2022 [place] 5.90 1:11 PM [facility] mil/cu mm LABORATORY HEMOGLOBIN 9.3 (L) 13.5 - 06/22/2022 [place] 17.5 g/dL 1:11 PM [facility] LABORATORY HEMATOCRIT 30.1 (L) 37.0 - 06/22/2022 [place] 53.0 % 1:11 PM [facility] LABORATORY MCV 93 80 - 100 06/22/2022 [place] fL 1:11 PM [facility] LABORATORY MCH 28.6 26.0 - 06/22/2022 [place] 34.0 pg 1:11 PM [facility] LABORATORY MCHC 30.9 (L) 32.0 - 06/22/2022 [place] 36.0 g/dL 1:11 PM [facility] LABORATORY RDW 13.7 11.5 - 06/22/2022 [place] 15.5 % 1:11 PM [facility] LABORATORY PLATELET COUNT 317 140 - 440 06/22/2022 [place] thou/cu 1:11 PM [facility] mm LABORATORY MPV 7.7 6.5 - 06/22/2022 [place] 11.0 fL 1:11 PM [facility] LABORATORY % NEUT 52.8 % 06/22/2022 [place] 1:11 PM [facility] LABORATORY % LYMPH 26.9 % 06/22/2022 [place] 1:11 PM [facility] LABORATORY % MONO 10.7 % 06/22/2022 [place] 1:11 PM [facility] LABORATORY % EOS 9.1 % 06/22/2022 [place] 1:11 PM [facility] LABORATORY % BASO 0.5 % 06/22/2022 [place] 1:11 PM [facility] LABORATORY ABSOLUTE 2.3 1.7 - 7.0 06/22/2022 [place] NEUTROPHILS thou/cu 1:11 PM [facility] mm LABORATORY ABSOLUTE 1.2 0.9 - 2.9 06/22/2022 [place] LYMPHOCYTES thou/cu 1:11 PM [facility] mm LABORATORY ABSOLUTE 0.5 <0.9 06/22/2022 [place] MONOCYTES thou/cu 1:11 PM [facility] mm LABORATORY ABSOLUTE 0.4 <0.5 06/22/2022 [place] EOSINOPHILS thou/cu 1:11 PM [facility] mm LABORATORY ABSOLUTE 0.0 <0.3 06/22/2022 [place] BASOPHILS thou/cu 1:11 PM [facility] mm LABORATORY Specimen Anatomical Collection Method Collection Time Receive d Time (Source) Location / / Volume Laterality Blood BLOOD SPECIMEN / Client Collect / 06/22/2022 12:15 1:04 Unknown Unknown PM RESEARCH MICROBIOLOGIST PM RESEARCH MICROBIOLOGIST Alex Mata MD HEMATOLOGY Performing Organization Address [facility] Phon [facility] LABORATORY [address] [place] [address] BUN (06/22/2022 12:15 PM RESEARCH MICROBIOLOGIST)Only the most recent of5 resultswithin the time period is included. athologist Signature BUN 17 8 - 25 06/22/2022 [facility]/dL 1:30 PM [facility] LABORATORY Specimen Anatomical Collection Method Collection Time Receive d Time (Source) Location / / Volume Laterality Blood BLOOD SPECIMEN / Client Collect / 06/22/2022 12:15 1:04 Unknown Unknown PM RESEARCH MICROBIOLOGIST PM RESEARCH MICROBIOLOGIST Alex Mata MD CHEMISTRY Performing Organization Address City/[facility] LABORATORY [address] [place] [address] (ABNORMAL) CREATININE (06/22/2022 12:15 PM RESEARCH MICROBIOLOGIST)Only the most recent of5 results within the time period is included. athologist Signature CREATININE 0.49 (L) 0.72 - 06/22/2022 [place] 1.25 mg/dL 1:29 PM [facility] LABORATORY eGFR >90 >90 06/22/2022 [facility] mL/min/1.7 1:29 PM [facility] 3m2 LABORATORY Comment: As of 2021, [...] Blood BLOOD SPECIMEN / Client Collect / 06/22/2022 12:15 1:04 Unknown Unknown PM RESEARCH MICROBIOLOGIST PM RESEARCH MICROBIOLOGIST Alex Mata MD CHEMISTRY Performing Organization Address City/[facility]/ZIP Code Phon e Number [facility] [address] [place] [address] (ABNORMAL) C-REACTIVE PROTEIN (06/22/2022 12:15 PM RESEARCH MICROBIOLOGIST)Only the most recent of5 resultswithin the time period is included. Analysis Performed At Patho logist Time Signature C-REACTIVE 4.88 (H) <0.50 06/22/2022 [place] PROTEIN mg/dL 1:29 PM [facility] LABORATORY Specimen Anatomical Collection Method Collection Time Receive d Time (Source) Location / / Volume Laterality Blood BLOOD SPECIMEN / Client Collect / 06/22/2022 12:15 1:04 Unknown Unknown PM RESEARCH MICROBIOLOGIST PM RESEARCH MICROBIOLOGIST Alex Mata MD CHEMISTRY Performing Organization Address City/[facility] Code Phon e Number [facility] [address] [place] [address] AST (SGOT) (06/22/2022 12:15 PM RESEARCH MICROBIOLOGIST)Only the most recent of5 resultswithin the time period is included. P athologist Signature AST (SGOT) 16 2 - 40 IU/L 06/22/2022 [place] 1:31 PM [facility] LABORATORY Specimen Anatomical Collection Method Collection Time Receive d Time (Source) Location / / Volume Laterality Blood BLOOD SPECIMEN / Client Collect / 06/22/2022 12:15 1:04 Unknown Unknown PM RESEARCH MICROBIOLOGIST PM RESEARCH MICROBIOLOGIST Alex Mata MD CHEMISTRY Performing Organization Address City/[facility] Phon e Number [facility] [address] [place] [address] EXTRA TUBE RED (05/25/2022 2:07 PM CDT) Specimen Anatomical Collection Method Collection Time Receive d Time (Source) Location / / Volume Laterality Blood BLOOD SPECIMEN / Client Collect / 05/25/2022 2:07 PM 1 07/25/2021 2:49 Unknown Unknown CDT PM CDT Alex Mata MD LABORATORY Performing Organization Address City/[facility] Phon e Number [facility] [address] [place] [address] EXTRA TUBE LIGHT GREEN (05/25/2022 2:07 PM CDT) Specimen Anatomical Collection Method Collection Time Receive d Time (Source) Location / / Volume Laterality Blood BLOOD SPECIMEN / Client Collect / 05/25/2022 2:07 PM 1 07/25/2021 2:49 Unknown Unknown CDT PM CDT Alex Mata MD LABORATORY Performing Organization Address City/[facility]/ZIP Code Phon e Number [facility] [address] [place] [address] EXTRA TUBE LAVENDER (05/25/2022 2:07 PM CDT) Specimen Anatomical Collection Method Collection Time Receive d Time (Source) Location / / Volume Laterality Blood BLOOD SPECIMEN / Client Collect / 05/25/2022 2:07 PM 1 07/25/2021 2:49 Unknown Unknown CDT PM CDT Alex Mata MD LABORATORY Performing Organization Address City/[facility]/ZIP Code Phon e Number [facility] [address] [place] [address] LAB TRACKING EVENT (05/18/2022 4:15 PM CDT) Specimen Anatomical Collection Method Collection Time Receive d Time (Source) Location / / Volume Laterality Other (Other) Client Collect / 05/18/2022 4:15 PM 04/24 5:18 Unknown CDT PM CDT Jimena Fleming MD LAB BILL ONLY Performing Organization Address City/[facility]/ZIP Code Phon e Number [employer] [address] [place] [address] LABORATORY-CENTRAL 2000 LABORATORY PATH TISSUE EXAM (05/17/2022 4:15 PM CDT) Component Value Ref Test Analysis Performed At [facility] gist Range Method Time Signature Case Report Pathology Report ?Case: [id number] ? 05/20/2022 [facility] Authorizing Provider: ??Jimena Higgins MD ?Collected: ? 05/17/2022 1615 ? 11:49 AM HEALTH Ordering Location: ? [facility] LAB ?Received: ?05/18/2022 1847 ? CDT LA BORZAKIYA-C Pathologist: ? Sweetie Daily MD ? ENTRAL Specimen: ?Bone Biopsy, ISCHIUM ? LABORATORY Final A) BONE, ISCHIUM, BIOPSY: 05/20/2022 [facility] Electronically Diagnosis 1. Segment of bone with necr osis, acute osteomyelitis, and chronic osteomyelitis 11:49 AM [facility] signed by Abimbola, 2. No evidence of malignancy CDT L ABORATORY-Heidi Pitt MD on ENTRAL 05/20/2022 at LABORATORY 11:49 AM [...] specimens. 05/20/2022 [facility]AM[facility]INA Description 11:49 AM [facility] CDT LABORATORY-C ENTRAL LABORATORY Additional 05/20/2022 [facility] Information Interpreted at [facility], Central Laboratory - [address], [place] [address] 11:49 AM [facility] CDT LABORATORY-C ENTRAL LABORATORY Specimen Anatomical Collection Method Collection Time Receive d Time (Source) Location / / Volume Laterality Other (Bone 05/17/2022 4:15 PM 6:47 Biopsy) CDT PM CDT Jimena Fleming MD PATHOLOGY/CYTOLOGY Performing Organization Address City/[facility] Phon e Number [facility] [address] [place] [address] LABORATORY-CENTRAL 1999 LABORATORY (ABNORMAL) REFERRAL ID/SUSC,NONURINE (05/16/2022 9:56 PM CDT) [facility] gist Method Time Signature CULTURE RESULT (A) 05/21/2022 [facility] 11:43 AM CDT LABORATORY-CE NTRAL LABORATORY CULTURE Streptococcus 05/21/2022 [facility] anginosus 11:43 AM CDT LABORATORY-CE [...] Yamile Conway NP MICROBIOLOGY Performing Organization Address City/[facility] Phon e Number [facility] [address] [place] [address] LABORATORY-CENTRAL 1999 LABORATORY (ABNORMAL) REFERRAL ID ONLY,NONURINE (05/16/2022 9:00 AM CDT) [facility] Method Time Signature CULTURE RESULT (A) 05/19/2022 [employer] 3:00 PM CDT LABORATORY-CE NTRAL LABORATORY CULTURE Streptococcus 05/19/2022 [facility] marvsus 3:00 PM CDT LABORATORY-CE NTRAL LABORATORY Specimen Anatomical Collection Method Collection Time Receive d Time (Source) Location / / Volume Laterality Other SPECIMEN FROM Client Collect / 05/16/2022 9:00 AM 04/24 WOUND / Unknown Unknown CDT 10:38 PM CDT Yamile Conway NP MICROBIOLOGY Performing Organization Address City/State/ZIP Code Phon e Number [employer] [address] 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 care, receiving hemodialysis, has chronic open wounds/skin damage, has long-te rm percutaneous indwelling medical devic es Exclusions for nares collection (if <12 months since positive culture) include all of the previous exclusions plus patients on antibiotics 7 days prior to collection Insurance Payer Benefit Plan / Subscriber ID Effective Dates Phone Addre ss Type Group WC WORKERS COMP WC [place] [id number] 1989-Prese C/O [employer] [address] [place] [address] WC WORKERS COMP WC [place] [id number] 1989-Prese C/O [employer] [address] [place] [address] MEDICARE PART A - MEDICARE PART [id number] 1991-Presyu ATTN: CLAIMS HB USE ONLY A HB ONLY t [address] [place] [address] [facility] MR [id number] 2020-Presen [address] [address] [place] [address] [employer] Workers Comp Self 1955 [id number] [employer] [address] [place] [id number] [employer] Workers Comp Self 1955 [id number] [employer] [address]Home[address] [place] [id number] Khanh Rene Personal/Family Self 1955 1 [id number] [employer] [address]Home) [place] [id number] Advance Directives Latest Code Status on File Code Status Date Activated Date Inactivated Comments Full Code 03/05/2020 6:59 AM 03/09/2020 8:07 PM Code Status Discussion: Not Discussed Full Code 04/25/2016 3:57 PM 05/10/2016 8:47 PM Full Code 2016 6:44 AM 03/14/2016 5:37 PM Full Code 12/16/2015 12:49 PM 12/25/2015 1:24 PM Full Code 12/15/2015 3:46 PM 12/16/2015 12:49 PM Care Teams Death Clearance Coordinator Relationship Specialty Start Date End Date Alex Mata MD PCP - General Family Practice 02/04/201999 [place] [address] Ana Mayers Nurse Practitioner 03/02/[address] [place] [address]
== END 2022-06-27 12:46 | disposition home or self-care (01) ==
PROVIDERS: PCP Family Medicine; Visit Provider Nurse Practitioner Family
DX: L89.314 Pressure ulcer of right buttock, stage 4 (principal); L89.614 Pressure ulcer of right heel, stage 4; L89.899 Pressure ulcer of other site, unspecified stage; L89.514 Pressure ulcer of right ankle, stage 4; L89.894 Pressure ulcer of other site, stage 4; L89.893 Pressure ulcer of other site, stage 3; L89.890 Pressure ulcer of other site, unstageable
CPT/HCPCS: 11043; 11044; 11046; 11047; 97597; 97605

== ENCOUNTER 2022-07-04 12:45 | Outpatient (CLI) | payer OTHER, MEDICARE, SELFPAY ==
--- OUTSIDE RECORDS SUMMARY | 2022-07-04 12:47 | XMS_ITS | Encounter Summary ---
:1955 Author Organization [facility] Address [address] [place] [address] Phone Care Team Providers Name Role Phone Unavailable Primary Care Provider Unavailable Encounter Details Date Type Department Care Team Description 09/14/2020 Immunization [facility] Jonathan Chu MD [address] [phone] Need for vaccination [address] Nurse, [facility] Vaccine [address] [place] [address] (Primary Dx) [place], [place] [address] Social History Tobacco Use Types [...] with No / Unsure 08/20/2020 3:15 PM WIRE HANGER someone who was confirmed or suspected to have Coronavirus / COVID-19? documented as of this encounter Plan of Treatment Not on filedocumented as of this encounter Visit Diagnoses Diagnosis Need for vaccination - Primary Need for prophylactic vaccination and in oculation against unspecified single disease documented in this encounter
--- OUTSIDE RECORDS SUMMARY | 2022-07-04 12:47 | XMS_ITS | Clinical Summary ---
:1955 Author Organization [employer] Address [address] [place] [phone] Phone Care Team Providers Name Role Phone Lila Clay PT Unavailable Source Comments Lumatix is fully rolled out on [employer] Last update 12/26/08.[employer] Allergies Active Allergy Reactions Severity Noted Date [...] Comments Blood Pressure 135/74 09/02/2021 8:12 AM DRAG OUT WORKER Pulse 72 09/02/2021 8:12 AM DRAG OUT WORKER Temperature 36.2 ??C (97.1 ??F) 09/15/2016 8:09 AM DRAG OUT WORKER Respiratory Rate 14 04/20/2010 1:39 PM [...] Address Typ e / Group Dates [facility] [id number] 1990-Pre [phone] [address] Work Comp [employer] sent [employer] [place] [address] [facility] [id number] 2020-Pres [address] [facility] (MEDICARE ent [id number] Managed Care ADVANTAGE) [place] [address] [id number] Workers Comp Employer 1955 % [employer] [employer] (Home[place] [address] [place] [id number] Care Teams Family Health Nurse Practitioner Relationship Specialty Start Date End Date Lila Clay, PT Physical Therapist Physical Therapy 04/05/21 [address] [place] [address]
--- OUTSIDE RECORDS SUMMARY | 2022-07-04 12:47 | XMS_ITS | Encounter Summary ---
:1955 Author Organization [facility] Address [address] [place] [address] Phone Care Team Providers Name Role Phone Lila Clay PT Unavailable Reason for Visit Reason Comments Referral Consult/Test/Treat (Routine) - Closed Specialty Diagnoses / Procedures Referred By Contact Refer red To Contact Physical Medicine and Diagnoses Paraplegia, unspecified paraplegia from previous in [place] 33 yrs James Nava Csc Pm&R Cl Rehab / PHYSICAL MD Edou[place] [address] [place] [address] MEDICINE AND REHAB [address] [place] [phone] Fax: Referral ID Status Reason Start Date Expiration Date Visits V isits Requested Authorized [id number] Closed Created in 07/20/2021 07/20/2022 1 1 PAS Encounter Details Date Type Department Care Team Description 09/02/2021 Office Visit Clinic & Specialty Center Dariel Israel uadriplegia, C5-C7 incomplete () (Primary Dx); Physical Medicine & A, PA-C Muscle spasticity Rehabilitation Clini c [address] [place] [address] 5540 4 [phone] Social History Tobacco Use [...] Comments Blood Pressure 135/74 09/02/2021 8:12 AM FIRST AID OFFICER Pulse 72 09/02/2021 8:12 AM FIRST AID OFFICER Temperature - - Respiratory Rate - - Oxygen Saturation - - Inhaled Oxygen Concentration - - Weight - - Height - - Body Mass Index - - documented in this encounter Progress Notes Dariel Israel PA-C - 09/02/2021 8:[address] [facility] Physical Medicine & Rehabilitation Clinic Khanh [...] is followed by a wound clinic in [place]. He just had a wheelchair evaluation in physical therapy here at [place]. He stated that around 2 to 3 [...] 5/5 EE 5/5 5/5 WE 4/5 4/5 Clerk Rating 3/5 3/5 Strength bilateral lower extremities 0/5 [...] service, including pre-visit review of separatelyobtained history, cecu-vm-ootd interaction performing medically appropriate physical exam, patient counseling/education, interpretation of diagnostic results, care coordination and documentation was 46 minutes. Dictation Disclaimer: Notes are completed with voice-recognition dictation software. Errors are generally corrected in real time. Please contact me via [employer] staff message if you note any errors requiring clarification. T AID OFFICER documented in this encounter Plan of Treatment Scheduled Orders Name Type Priority Associated Diagnoses Order S chedule EMG - BOTOX EMG Routine Muscle spasticity Ordered: 0 09/02/2021 documented as of this encounter Procedures Procedure Name Priority Date/Time Associated Comments Diagnosis CARE EVERYWHERE 09/07/2021 11:04 Results for this AUTHORIZATION AM FIRST AID OFFICER procedure are in the results section. CARE EVERYWHERE 09/07/2021 11:04 Results for this AUTHORIZATION AM FIRST AID OFFICER procedure are in the results section. documented in this encounter Results CARE EVERYWHERE AUTHORIZATION (09/07/2021 11:04 AM FIRST AID OFFICER) Narrative This result has an attachment that is no t available. Him Provider SCANNED CONSENTS CARE EVERYWHERE AUTHORIZATION (09/07/2021 11:04 AM FIRST AID OFFICER) Narrative This result has an attachment that is no t available. Him Provider SCANNED CONSENTS documented in this encounter Visit Diagnoses Diagnosis Quadriplegia, C5-C7 incomplete () - Pr imary Quadriplegia, C5-C7, incomplete Muscle spasticity Spasm of muscle documented in this encounter Care Teams Wood Piler Relationship Specialty Start Date End Date Lila Clay, PT Physical Therapist Physical Therapy 04/05/21 [address] [place] [address] documented as of this encounter
--- OUTSIDE RECORDS SUMMARY | 2022-07-04 12:47 | XMS_ITS | Encounter Summary ---
:1955 Author Organization [facility] Address [address] [place] [address] Phone Care Team Providers Name Role Phone Unavailable Primary Care Provider Unavailable Reason for Visit Reason Onset Date Comments Refill Request 03/22/2019 propanthelin Encounter Details Date Type Department Care Team Description 03/22/2019 Refill Clinic & Specialty Monty Garcia MD Refill Request Center Urology Clini c 701 [facility] P5 (propanthelin) [address] [phone] (Wo rk) Social History Tobacco Use Types [...]
--- OUTSIDE RECORDS SUMMARY | 2022-07-04 12:47 | XMS_ITS | Encounter Summary ---
:[address] [facility] Address [address] [place] [address] Phone Care Team Providers Name Role Phone Lila Clay PT Unavailable Reason for Visit Prior Authorization (Routine) - Closed Specialty Diagnoses / Procedures Referred By Contact Refer red To Contact Physical Therapy / Diagnoses Quadriplegia () At high risk for skin breakdown Impaired mobility Provider, Outside Lila Clay, PHYSICAL MEDICINE AND Procedures PT TREATMENT PLAN OUTSIDE PROVIDER PT REHAB [address] [address] Phone: Fax: Referral ID Status Reason Start Date Expiration Date Visits Requ ested Visits Authorized [id number] Closed 05/05/2021 01/20/2022 12 12 Encounter Details Date Type Department Care Team Description 08/11/2021 Hospital Encounter Clinic & Specialty Provider, [place] [address] No Show Center Beading Sawyer apy Lila Clay, PT [address] [place] [address]40 Social History Tobacco Use Types Packs/Day [...] request, with this therapist. Lila Clay PT [facility] License: #[id number] Pager: [phone] Office: [phone] TS DIRECTOR documented in this encounter Plan of Treatment Not on filedocumented as of this encounter Visit Diagnoses Not on filedocumented in this encounter Care Teams Distance Education Faculty Liaison Relationship Specialty Start Date End Date Lila Clay, PT Physical Therapist Physical Therapy 04/05/21 [address] [place] [address] documented as of this encounter
--- OUTSIDE RECORDS SUMMARY | 2022-07-04 12:47 | XMS_ITS | Encounter Summary ---
:1955 Author Organization [facility] Address 1 [place] [address] Phone Care Team Providers Name Role Phone Lila Clay PT Unavailable Reason for Visit Prior Authorization (Routine) - Auth Not Needed Specialty Diagnoses / Procedures Referred By Contact Refer red To Contact Physical Medicine and Diagnoses Quadriplegia, unspecified Quadriplegia, C5-C7 incomplete Muscle spasticity [M62.838] (Reminder letter sent 09/29/21 cl) Zev Alvarez MD Rehab / NEUROLOGY EMG Procedures EMG - BOTOX [address] [address] [place] [address] Phone: Fax: Referral ID Status Reason Start Date Expiration Date Visits V isits Requested Authorized [id number] Auth Not 1 2 Needed Encounter Details Date Type Department Care Team Description 10/21/2021 Hospital Encounter Clinic & Specialty Zev Alvarez , Non Billable Center EMG [address] [place] [address] 3040 4 [place], [place] [phone] (Wo rk) Social History Tobacco Use Types [...] Name: Khanh Rene : 1955 Medical Record: [id number] History of Present Illness: 66 year old [...] to his right leg on 07/08/2019 at [facility] (Administered as 100 BF, 50 [...] and discussed with Dr. Kim Ash, PGY-5, [facility] Brain Injury Fellow Pager# [phone] Associated attestation - Zev Alvarez MD - [...] on filedocumented in this encounter Care Teams Formula Bottler Relationship Specialty Start Date End Date Lila Clay, PT Physical Therapist Physical Therapy 04/05/21 [address] [place] [address] documented as of this encounter
--- OUTSIDE RECORDS SUMMARY | 2022-07-04 12:47 | XMS_ITS | Encounter Summary ---
:1955 Author Organization [facility] Address [address] [place] [address] Phone Care Team Providers Name Role Phone [...] with No / Unsure 08/20/2020 3:15 PM BAND BUILDER someone who was confirmed or suspected to have Coronavirus / COVID-19? documented as of this encounter Plan of Treatment Not on filedocumented as of this encounter Visit Diagnoses Not on filedocumented in this encounter
--- OUTSIDE RECORDS SUMMARY | 2022-07-04 12:47 | XMS_ITS | Encounter Summary ---
:1955 Author Organization [facility] Address [address] [facility] [place] [address] Phone Care Team Providers Name Role Phone Lila Clay PT Unavailable Reason for Visit Reason Onset Date Comments Prior Authorization For Medications 09/03/2021 Boto x (onabotulinumtoxinA) Encounter Details Date Type Department Care Team Description 09/03/2021 Pharmacy Prior [facility] P1 Pharmacy Sakshi Mcmanus, Authorization [address] [facility] PharmD P1.630 701 [place], [place] [address] 5 [place], [place] [phone] Social History Tobacco Use Types Packs/Day Years [...] the patient has active primary coverage through [facility] MEDICARE ADVANTAGE ([facility]). [facility] does NOT require prior authorization for BOTOX when it is given in the clinic/infusion center and billed on the medical claim (buy and bill). IMPORTANT - READ BELOW However, [facility] reimburses BOTOX only for select designated ICD-10/Diagnosis Codes. Based on review of the patient's chart, please (continue to) use the following COVERED diagnosis code for the visits in which the patient will receive BOTOX: - G82.50 or G82.54 Quadriplegia Update 01/27/2022 - Unable to get response from [employer]. Per 10/21/2021 note appears patient was going [...] filedocumented in this encounter Care Teams Training Executive Relationship Specialty Start Date End Date Lila Clay, PT Physical Therapist Physical Therapy 04/05/21 [address] [place] [address] documented as of this encounter
--- OUTSIDE RECORDS SUMMARY | 2022-07-04 12:47 | XMS_ITS | Encounter Summary ---
:1955 Author Organization [facility] Address [address] [place] [address] Phone Care Team Providers Name Role Phone Unavailable Primary Care Provider Unavailable Reason for Visit Reason Onset Date Comments Refill Request 04/03/2020 Encounter Details Date Type Department Care Team Description 04/03/2020 Refill Clinic & Specialty Center Monty Garcia MD Refill Request Urology Clinic [address] [place] [address] [place] [address] 55 [phone] Social History Tobacco Use Types Packs/Day Years [...]
--- OUTSIDE RECORDS SUMMARY | 2022-07-04 12:47 | XMS_ITS | Encounter Summary ---
:1955 Author Organization [facility] [place] [facility] Address 1 [place] [address] Phone Care Team Providers Name Role Phone Unavailable Primary Care Provider Unavailable Reason for Visit Reason Comments Other Encounter Details Date Type Department Care Team Description 03/27/2020 Refill Clinic & Specialty Center Monty Garcia MD Other Urology Clinic [address] [phone] [place] [address] 55 [phone] Social History Tobacco Use Types Packs/Day Years [...]
--- OUTSIDE RECORDS SUMMARY | 2022-07-04 12:47 | XMS_ITS | Encounter Summary ---
:1955 Author Organization [facility] Address [address] [place] [address] Phone Care Team Providers Name Role Phone Lila Clay PT Unavailable Reason for Visit Prior Authorization (Routine) - Closed Specialty Diagnoses / Procedures Referred By Contact Refer red To Contact Physical Therapy / Diagnoses Quadriplegia () At high risk for skin breakdown Impaired mobility Provider, Outside Lila Clay, PHYSICAL MEDICINE AND Procedures PT TREATMENT PLAN OUTSIDE PROVIDER PT REHAB [address] [address] Phone: Fax: Referral ID Status Reason Start Date Expiration Date Visits Requ ested Visits Authorized [id number] Closed 05/05/2021 01/20/2022 12 12 Encounter Details Date Type Department Care Team Description 06/02/2021 Hospital Encounter Clinic & Specialty Provider, Outside OUTSIDE PROVIDER [address] Tenter Frame Operator apy Lila Clay, PT [address] [place] [address]40 Social History Tobacco Use Types Packs/Day [...] Hospitalization: None Referring Provider: MD Yamile Alves, ADOLESCENT COUNSELOR ?? Current Precautions/Contraindications: At high risk for skin breakdown, s/p flap surgery, current pressure injuries on feet [facility] Merchandise Execution Leader: no Patient gave two identifiers for [...] additional changes as appropriate. O: [Billable Units/Time] (60883) Wheelchair Management: 60 min Transfer MWC/mat table [...] passive IR/ER WNL. Adjustments made to patient's [facility] this date: +Increased posterior seat dump by 1 +lowered footplates B by approximately 1 Pt returned to sitting in [facility] at end of session, able to self [...] Clay, PT [facility] [place] License: #[id number] Pager: [phone] Office: [phone] AGE DETERMINER documented in this encounter Plan of Treatment Not on filedocumented as of this encounter Visit Diagnoses Not on filedocumented in this encounter Care Teams Lighting Technician Relationship Specialty Start Date End Date Lila Clay, PT Physical Therapist Physical Therapy 04/05/[address] [place] [address] documented as of this encounter
--- OUTSIDE RECORDS SUMMARY | 2022-07-04 12:47 | XMS_ITS | Encounter Summary ---
:1955 Author Organization [facility] Address [address] [place] [address] Phone Care Team Providers Name Role Phone Lila Clay PT Unavailable Reason for Visit Prior Authorization (Routine) - Closed Specialty Diagnoses / Procedures Referred By Contact Refer red To Contact Physical Therapy / Diagnoses Quadriplegia () At high risk for skin breakdown Impaired mobility Provider, Outside Lila Clay, PHYSICAL MEDICINE AND Procedures PT TREATMENT PLAN OUTSIDE PROVIDER PT REHAB [address] [address] Phone: Fax: Referral ID Status Reason Start Date Expiration Date Visits Requ ested Visits Authorized [id number] Closed 05/05/2021 01/20/2022 12 12 Encounter Details Date Type Department Care Team Description 06/09/2021 Hospital Encounter Clinic & Specialty Provider, Outside OUTSIDE PROVIDER [address] Service Delivery Manager apy Lila Clay, PT [id number] [place] [address]40 Social History Tobacco Use Types Packs/Day [...] Hospitalization: None Referring Provider: MD Yamile Alves, RESPIRATORY SUPERVISOR ?? Current Precautions/Contraindications: At high risk for skin breakdown, s/p flap surgery, current pressure injuries on feet [facility] Kelp Or Seagrass Gatherer: no Patient gave two identifiers for Check 2 for Safety Total Treatment Time: 70 Min Pain: No significant complaints during session S: Pt presents to his PT session in his MWC, independently. Also present: Matthew Ricketts/[employer]. Last 30 min of the session, patient's [facility] (Raquel Gamino, RN, PHN, [place] P: [phone], F: [phone]) No significant changes; still attends wound clinic for B foot injuries weekly - missed yesterday so will be seen later this week. Pt agreed that he would like to try to adjust 1-2 items at a time; assess tolerance, and then move forward with additional changes as appropriate. Noticed that additional 'dump' is 'different' but tolerable. O: [Billable Units/Time] (79182) Wheelchair Management: 70 min Pt remained in [...] by 2? *Will request a demo from [facility], as PT looked and did not [...] require a new back frame to the [facility], but would provide additional depth to the [...] to be able to transfer in/out of [facility] independently. At end of session, all agreed [...] date include: Increased posterior seat dump on [facility] this date and pt tolerated well - [...] be obtained before then? Lila Clay PT [facility] License: #[id number] Pager: [phone] Office: [phone] BORE OPERATOR documented in this encounter Plan of Treatment Not on filedocumented as of this encounter Visit Diagnoses Not on filedocumented in this encounter Care Teams Camp Coordinator Relationship Specialty Start Date End Date Lila Clay, PT Physical Therapist Physical Therapy 04/05/21 [address] [place] [address] documented as of this encounter
--- OUTSIDE RECORDS SUMMARY | 2022-07-04 12:47 | XMS_ITS | Encounter Summary ---
:1955 Author Organization [facility] Address [address] [place] [address] Phone Care Team Providers Name Role Phone Hallie Clay PT Unavailable Reason for Referral Prior Authorization (Routine) - Closed Specialty Diagnoses / Procedures Referred By Contact Refer red To Contact Physical Therapy / Diagnoses Quadriplegia () At high risk for skin breakdown Impaired mobility Provider, Outside Hallie Clay, PHYSICAL MEDICINE AND Procedures PT TREATMENT PLAN OUTSIDE PROVIDER PT REHAB [place], [place] [phone] [place] [address] Phone: Fax: Referral ID Status Reason Start Date Expiration Date Visits Requ ested Visits Authorized [id number] Closed 05/05/2021 01/20/2022 12 12 AL SUPERVISOR Reason for Visit Prior Authorization (Routine) - Closed Specialty Diagnoses / Procedures Referred By Contact Refer red To Contact Physical Therapy / Diagnoses Quadriplegia () At high risk for skin breakdown Impaired mobility Provider, Outside Hallie Clay, PHYSICAL MEDICINE AND Procedures PT TREATMENT PLAN OUTSIDE PROVIDER PT REHAB [place], [place] [id number] [place] [address] Phone: Fax: Referral ID Status Reason Start Date Expiration Date Visits Requ ested Visits Authorized [id number] Closed 05/05/2021 01/20/2022 12 12 Encounter Details Date Type Department Care Team Description 07/14/2021 Hospital Encounter Clinic & Specialty Provider, Outside [place] [address] Center Instructor Physical Education apHallie Hopkins, PT [address] [address]40 Social History Tobacco Use Types [...] [facility] Physical Therapy [address] [address] RECERTIFICATION SUMMARY New Recertification period: 07/14/21 to [...] Recent Hospitalization:??None?? Referring Provider:?? MD Yamile Alves, SPEECH LANGUAGE ASSISTANT ?? Current Precautions/Contraindications:?At high risk for skin breakdown, s/p flap surgery, currentpressure injuries on feet [facility] Wood Heel Back Liner:?no ?? Patient gave two identifiers for Check 2 for Safety Total Treatment Time: 55 Min ?? Pain: No significant complaints during session ?? S: Pt presents to his PT session in his [facility], independently. Also present: Matthew Ricketts/[employer]. Received his new off loading boots from Sales Exec Entertainment Reporter yesterday, started wearing them as of yesterday and is having difficulties with them (during transfers especially) due to the weight - also noted that they have elevated his knees which causes concern for increased pressure on IT's. ?? O: [Billable Units/Time] ?? (36629) Wheelchair Management: 55 min Pressure mapping completed [...] up with B UE's for having pressure debeaker placed over, completed with CGA) +Sitting on [...] Recommend removing foam sole, and placing nonskid surface/hearing consultant bottom instead (lowest height possible) 4) Inside [...] - thank you. Hallie Clay, PT [facility] [phone] [email or web address] Printed above information for patient to bring with to his scrum project manager as well as to his Ortho MD [...] stabilizer? Hallie Clay, PT [facility] [place] License: #[id number] Pager: [phone] Office: [phone] ? Recertification Assessment of need for continued skilled physical therapy interventions: Patient continues to make steady progress toward short term and fdc goals which have been updated to reflect [...] Specific Question: Schedule with: Answer: HALLIE CLAY [[id number]] Order Specific Question: Number of Visits patient [...] Specific Question: Schedule with: Answer: HALLIE CLAY [[id number]] Order Specific Question: Number of Visits patient should be scheduled for? Answer: 1 Order Specific Question: Modalities and Procedures Answer: Procedures Order Specific Question: Procedure Answer: Functional Activities Order Specific Question: Procedure Answer: Neuromuscular Re-education Order Specific Question: Procedure Answer: Self Care/Home Management/ADL Order Specific Question: Procedure Answer: Wheelchair Management and Training Hallie Clay PT ATP Date [place] License: #[id number] Pager: [phone] Office: [phone] AL SUPERVISOR documented in this encounter Plan of Treatment Not on filedocumented as of this encounter Visit Diagnoses Diagnosis Quadriplegia () Quadriplegia, unspecified At high risk for skin breakdown Other specified conditions influencing h ealth status Impaired mobility Other ill-defined conditions documented in this encounter Care Teams Fractionation Plant Supervisor Relationship Specialty Start Date End Date Hallie Clay PT Physical Therapist Physical Therapy 04/05/[address] [place] [address] documented as of this encounter
--- OUTSIDE RECORDS SUMMARY | 2022-07-04 12:47 | XMS_ITS | Encounter Summary ---
:1955 Author Organization [facility] Address 1 [place] [address] Phone Care Team Providers Name Role Phone Lila Clay PT Unavailable Reason for Visit Prior Authorization (Routine) - Closed Specialty Diagnoses / Procedures Referred By Contact Refer red To Contact Physical Therapy / Diagnoses Quadriplegia () At high risk for skin breakdown Impaired mobility Provider, Outside Lila Clay, PHYSICAL MEDICINE AND Procedures PT TREATMENT PLAN OUTSIDE PROVIDER PT REHAB [address] [place] [address] Phone: Fax: Referral ID Status Reason Start Date Expiration Date Visits Requ ested Visits Authorized [id number] Closed 05/05/2021 01/20/2022 12 12 Encounter Details Date Type Department Care Team Description 09/01/2021 Hospital Encounter Clinic & Specialty Lila Clay, No [facility] Uptwist Spinner apy PT [address] [place] [address] 5540 4 [place], [place] [phone] Social History Tobacco Use Types Packs/Day Years [...] items have been addressed. Lila Clay PT [facility] License: #[id number] Pager: [phone] Office: [phone] ERT SINGER documented in this encounter Plan of Treatment Not on filedocumented as of this encounter Visit Diagnoses Not on filedocumented in this encounter Care Teams Die Sinking Machine Operator Relationship Specialty Start Date End Date Lila Clay, PT Physical Therapist Physical Therapy 04/05/21 [address] [place] [address] documented as of this encounter
--- OUTSIDE RECORDS SUMMARY | 2022-07-04 12:47 | XMS_ITS | Encounter Summary ---
:1955 Author Organization [facility] Address [address] [place] [address] Phone Care Team Providers Name Role Phone [...] on filedocumented in this encounter Care Teams Ladle Car Operator Relationship Specialty Start Date End Date Lila Clay, PT Physical Therapist Physical Therapy 04/05/21 [address] [place] [address] documented as of this encounter
--- OUTSIDE RECORDS SUMMARY | 2022-07-04 12:47 | XMS_ITS | Encounter Summary ---
:1955 Author Organization [facility] Address 1 [place] [address] Phone Care Team Providers Name Role Phone Unavailable Primary Care Provider Unavailable Encounter Details Date Type Department Care Team Description 08/20/2020 Immunization [facility] Viral Clinic Jonathan Chu MD [address] [address] COVID-19; [address] Nurse, [facility] Vaccine 701 [place] [address] Need for vaccination [place], [place] [address] Social History Tobacco Use Types [...] with No / Unsure 08/20/2020 3:15 PM SECURITY RISK ANALYST someone who was confirmed or suspected to have Coronavirus / COVID-19? documented as of this encounter Plan of Treatment Not on filedocumented as of this encounter Visit Diagnoses Diagnosis COVID-19 Need for vaccination Need for prophylactic vaccination and in oculation against unspecified single disease documented in this encounter
--- OUTSIDE RECORDS SUMMARY | 2022-07-04 12:47 | XMS_ITS | Encounter Summary ---
:1955 Author Organization [facility] Address 1 [place] [address] Phone Care Team Providers Name Role Phone Hallie Clay PT Unavailable Encounter Details Date Type Department Care Team Description 05/05/2021 Hospital Encounter Clinic & Specialty Alex M[place] [address] [place] [address] [place] [address] Center Therapist Asst apy Hallie Clay, PT [address] [address] Social History Tobacco Use Types [...] Provider: Dr. 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 The vendor is not present during today's evaluation. 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 He has utilized a manual wheelchair as his primary means of mobility since then. He has a significant pressure injury history, including on his sacral area and feet. He received his current MWC through [employer] on 10/06/20. SUBJECTIVE Patient Complaints: I just [...] Function: Randy will cont to use his [facility] and rehab accessories to complete all MRADL's, [...] independently (with hand controls) while seated in [facility]) Does it fold/disassemble for transportation?: Yes Is [...] Flexion Elbow Extension Wrist Flexion Wrist Extension Coagulating Drying Supervisor Using BERNY hand dynamometer Lower Extremity Right MMT Left MMT WFL 0/5 0/5 Hip Flexion Hip Extension Hip Abduction Knee Flexion Knee Extension Dorsiflexion Inversion Eversion Plantar Flexion Great toe extension Normative rent and miscellaneous remittance clerk strength values for Berny dynamometer for clinical [...] the wheelchair/mobility device?: Yes Wheelchair Management/Training (CPT 51395): 15 min during session(s) Pressure mapping completed [...] Specific Question: Schedule with: Answer: HALLIE CLAY [[id number]] Order Specific Question: Number of Visits patient [...] conditions documented in this encounter Care Teams Software Support Technician Relationship Specialty Start Date End Date Hallie Clay, PT Physical Therapist Physical Therapy 04/05/21 [address] [place] [address] documented as of this encounter
--- OUTSIDE RECORDS SUMMARY | 2022-07-04 12:47 | XMS_ITS | Encounter Summary ---
:1955 Author Organization [facility] Address [address] [place] [address] Phone Care Team Providers Name Role Phone Unavailable Primary Care Provider Unavailable Encounter Details Date Type Department Care Team Description 08/18/2020 Orders Only [facility] Viral Cl Jonathan Sierra MD COVID-19 7650 [facility] [address] 701 [facility] G5 [place], [place] [address] [place], [place] [phone] (Wo rk) Social History Tobacco Use Types [...] with No / Unsure 08/20/2020 3:15 PM WASTE ELIMINATION someone who was confirmed or suspected to have Coronavirus / COVID-19? documented as of this encounter Plan of Treatment Not on filedocumented as of this encounter Visit Diagnoses Diagnosis COVID-19 documented in this encounter
--- OUTSIDE RECORDS SUMMARY | 2022-07-04 12:48 | XMS_ITS | Encounter Summary ---
:[address] [facility] Address [address] [place] [address] Phone Care Team Providers Name Role Phone Provider, Outside Primary Care Provider Unavailable Reason for Visit Reason Onset Date Comments Medication Problem 01/10/2018 propantheline Encounter Details Date Type Department Care Team Description 01/10/2018 Nurse Triage Clinic & Specialty Monty Garcia, [facility] Problem Center Urology Clini c (propantheline) [address] [place] [address] [place] [address] [address] [place], [place] [phone] [address] Social History Tobacco Use Types Packs/Day Years [...] to me for years A-upon review of [employer] is was found that Dr Garcia has [...] or severe? n/a Protocols used: MEDICATION QUESTION [id number] documented in this encounter Plan of Treatment Not on filedocumented as of this encounter Visit Diagnoses Not on filedocumented in this encounter Care Teams Air Quality Chemist Relationship Specialty Start Date End Date Provider, Outside PCP - General 03/13/09 10/22/18 [place] [address] documented as of this encounter
--- OUTSIDE RECORDS SUMMARY | 2022-07-04 12:48 | XMS_ITS | Encounter Summary ---
:1955 Author Organization [facility] Address [address] [place] [address] Phone Care Team Providers Name Role Phone Provider, Outside Primary Care Provider Unavailable Reason for Visit Reason Onset Date Comments Refill Request 10/06/2016 re: Macrodantin Encounter Details Date Type Department Care Team Description 10/06/2016 Telephone [facility] Divya Avendano Refi ll Request (re: Yordy ASH Macrodantin) [address] , [address] 701 [place], [place] [address] 4 [place], [place] [phone] Social History Tobacco Use Types Packs/Day Years [...] on filedocumented in this encounter Care Teams Aesthetician Relationship Specialty Start Date End Date Provider, Outside PCP - General 03/13/09 10/22/18 [place] [address] documented as of this encounter
--- OUTSIDE RECORDS SUMMARY | 2022-07-04 12:48 | XMS_ITS | Encounter Summary ---
:1955 Author Organization [facility] Address [address] [place] [address] Phone Care Team Providers Name Role Phone Provider, Outside Primary Care Provider Unavailable Reason for Visit Reason Onset Date Comments Refill Request 10/22/2014 Encounter Details Date Type Department Care Team Description 10/22/2014 Refill [facility] Urology Clinic Tree Vaughan, Refill Request [address] [facility], [address] [place], [place] [address] [address] [place] [address] [place], [place] [address] (Wo rk) Social History Tobacco Use Types [...] documented in this encounter Care Teams Medical Radiation Tech Relationship Specialty Start Date End Date Provider, Outside PCP - General 03/13/09 10/22/18 [place] [address] documented as of this encounter
--- OUTSIDE RECORDS SUMMARY | 2022-07-04 12:48 | XMS_ITS | Encounter Summary ---
:1955 Author Organization [facility] Address 1 [place] [address] Phone Care Team Providers Name Role Phone Provider, Outside Primary Care Provider Unavailable Reason for Visit Reason Onset Date Comments Other 2018 Encounter Details Date Type Department Care Team Description 2018 Telephone Clinic & Specialty Monty Garcia MD Appointment Center Urology Clini c 701 [facility] P5 Cancellation [address] [phone] (Wo rk) Social History Tobacco Use Types [...] filedocumented in this encounter Care Teams Senior Air Director Relationship Specialty Start Date End Date Provider, Outside PCP - General 8/21/09 4/1/19 [place] [address] documented as of this encounter
--- OUTSIDE RECORDS SUMMARY | 2022-07-04 12:48 | XMS_ITS | Encounter Summary ---
:1955 Author Organization [facility] Address [address] [place] [address] Phone Care Team Providers Name Role Phone Provider, Outside Primary Care Provider Unavailable Reason for Visit Reason Onset Date Comments Refill Request 07/05/2016 Encounter Details Date Type Department Care Team Description 07/05/2016 Refill [facility] Urology Clinic Divya Caraballo RN Refill Request [address] [facility], [address] 701 [place], [place] [address] 4 [place] [address] Social History Tobacco Use Types Packs/Day Years [...] NOS documented in this encounter Care Teams Knocker Out Relationship Specialty Start Date End Date Provider, Outside PCP - General 03/13/09 10/22/18 [place] [address] documented as of this encounter
--- OUTSIDE RECORDS SUMMARY | 2022-07-04 12:48 | XMS_ITS | Encounter Summary ---
:1955 Author Organization [facility] Address [address] [place] [address] Phone Care Team Providers Name Role Phone Provider, Outside Primary Care Provider Unavailable Reason for Visit Reason Onset Date Comments Refill Request 09/05/2013 macrodantin Encounter Details Date Type Department Care Team Description 09/05/2013 Refill [facility] Urology Clinic Omar Savage MD Refill Request [facility] Only (macrodantin) [address], [address] [place], [place] [address] Social History Tobacco Use Types [...] Savage, med send to to co sign. RUMENT MAKER APPRENTICE documented in this encounter Plan of Treatment Not on filedocumented as of this encounter Visit Diagnoses Diagnosis Neurogenic bladder - Primary Neurogenic bladder, NOS documented in this encounter Care Teams Financial Assistant Relationship Specialty Start Date End Date Provider, Outside PCP - General 03/13/09 10/22/18 [place] [address] documented as of this encounter
--- OUTSIDE RECORDS SUMMARY | 2022-07-04 12:48 | XMS_ITS | Encounter Summary ---
:1955 Author Organization [facility] Address [address] [place] [address] Phone Care Team Providers Name Role Phone Provider, Outside Primary Care Provider Unavailable Encounter Details Date Type Department Care Team Description 10/21/2014 Telephone [facility] [place] [facility] Clinic Omar Reyes MD [address] , [address] Research Only [place], [place] [address] Social History Tobacco Use Types [...] on filedocumented in this encounter Care Teams Society Editor Relationship Specialty Start Date End Date Provider, Outside PCP - General 03/13/09 10/22/18 [place] [address] documented as of this encounter
--- OUTSIDE RECORDS SUMMARY | 2022-07-04 12:48 | XMS_ITS | Encounter Summary ---
:1955 Author Organization [facility] Address 1 [place] [address] Phone Care Team Providers Name Role Phone Provider, Outside Primary Care Provider Unavailable Reason for Visit Reason Onset Date Comments Refill Request 12/23/2016 Encounter Details Date Type Department Care Team Description 12/23/2016 Refill [facility] Urology Clinic Divya Caraballo RN Refill Request [address] [facility], [address] [place], [place] [address] 4 [place] [address] Social History Tobacco Use Types Packs/Day Years [...] on filedocumented in this encounter Care Teams Silk Screen Printer Relationship Specialty Start Date End Date Provider, Outside PCP - General 03/13/09 10/22/18 [place] [address] documented as of this encounter
--- OUTSIDE RECORDS SUMMARY | 2022-07-04 12:48 | XMS_ITS | Encounter Summary ---
:1955 Author Organization [facility]Note 3[facility] Address [address] [place] [address] Phone Care Team Providers Name Role Phone Provider, Outside Primary Care Provider Unavailable Reason for Visit Reason Comments Other Encounter Details Date Type Department Care Team Description 02/20/2013 Telephone [facility] Omar Reyes MD [address] [facility], [address] Research [place], [place] [address] Social History Tobacco Use [...] Hussein Giron to refill Pro-Banthine. VORB Notified [facility] pharmacy at [phone]. Telephone Encounter - Danna Alvarez RN - [...] verbal refill request for Propantheline. Please call [phone] Expects Return Call at: ------ documented in this encounter Plan of Treatment Not on filedocumented as of this encounter Visit Diagnoses Not on filedocumented in this encounter Care Teams Pediatric Dermatologist Relationship Specialty Start Date End Date Provider, Outside PCP - General 03/13/09 10/22/18 [place] [address] documented as of this encounter
--- OUTSIDE RECORDS SUMMARY | 2022-07-04 12:48 | XMS_ITS | Encounter Summary ---
:1955 Author Organization [facility] Address [address] [place] [address] Phone Care Team Providers Name Role Phone Provider, Outside Primary Care Provider Unavailable Reason for Visit Reason Comments Other Encounter Details Date Type Department Care Team Description 05/22/2016 Refill [facility] Monty Morales MD Other [address] [facility], [address] 5540 4 [place] [address] [phone] (Wo rk) Social History Tobacco Use Types Packs/Day Years Used Date Smoking Tobacco: Former Cigarettes Cigars Smokeless Tobacco: Never Alcohol Use Standard Drinks/Week Comments Yes 3.3 (1 standard drink = 0.6 oz pure alco hol) once in while Sex Assigned at Date Recorded Not on file documented as of this encounter Miscellaneous Notes Telephone Encounter - Divya Avenadno RN - 05/23/2016 8:45 AM CDT An [...] sent to pt's home requesting a refill. Diyva Avendano, NILSA, 05/23/2016 8:46 AM documented in this encounter Plan of Treatment Not on filedocumented as of this encounter Visit Diagnoses Diagnosis Neurogenic bladder Neurogenic bladder, NOS documented in this encounter Care Teams Deep Submergence Vehicle Operator Relationship Specialty Start Date End Date Provider, Outside PCP - General 03/13/09 10/22/18 [place] [address] documented as of this encounter
--- OUTSIDE RECORDS SUMMARY | 2022-07-04 12:48 | XMS_ITS | Encounter Summary ---
:1955 Author Organization [facility] Address 1 [place] [address] Phone Care Team Providers Name Role Phone Provider, Outside Primary Care Provider Unavailable Reason for Visit Reason Onset Date Comments Refill Request 01/12/2018 Encounter Details Date Type Department Care Team Description 01/12/2018 Refill Clinic & Specialty Center Monty Garcia MD Refill Request Urology Clinic [address] [place] [address] [address] [place], [place] [address] [phone] Social History Tobacco Use Types Packs/Day Years [...] on filedocumented in this encounter Care Teams Buttonhole Maker Hand Relationship Specialty Start Date End Date Provider, Outside PCP - General 03/13/09 10/22/18 [place] [address] documented as of this encounter
--- OUTSIDE RECORDS SUMMARY | 2022-07-04 12:48 | XMS_ITS | Encounter Summary ---
:1955 Author Organization [facility] Address [address] [place] [address] Phone Care Team Providers Name Role Phone Provider, Outside Primary Care Provider Unavailable Reason for Visit Reason Onset Date Comments Medication Refill 11/11/2016 propantheline (PRO-B ANTHINE) Encounter Details Date Type Department Care Team Description 11/11/2016 Refill [facility] Urology Clinic Selena Garcia MD Medication Refill [place] 701 [facility] P5 (propantheline [address] [place], [place] (PRO-BANTHINE) ) [place], [place] [phone] (Wo rk) Social History Tobacco Use Types [...] mg oral tablet Pharmacy Name and Location: [facility] [address] [place] [phone] - [phone] - [address] [place] [address] Phone number for return call: .[phone] Did caller contact the pharmacy? yes: pharmacy [...] on filedocumented in this encounter Care Teams Interpreter And Translator Relationship Specialty Start Date End Date Provider, Outside PCP - General 03/13/09 10/22/18 [place] [address] documented as of this encounter
--- OUTSIDE RECORDS SUMMARY | 2022-07-04 12:48 | XMS_ITS | Encounter Summary ---
:1955 Author Organization [facility] Address [address] [place] [address] Phone Care Team Providers Name Role Phone Provider, Outside Primary Care Provider Unavailable Reason for Visit Reason Comments Follow-up NEUROGENIC BLADDER Encounter Details Date Type Department Care Team Description 09/15/2016 Office Visit [facility] Urology Clinic Monty Garcia Neur ogenic bladder Yordy FALCON (Primary Dx) [address] , [address] [place] [address] [address] [place], [place] [address] [phone] Social History Tobacco Use Types Packs/Day Years [...] Comments Blood Pressure 129/74 09/15/2016 8:09 AM VOCATIONAL TEACHER Pulse 75 09/15/2016 8:09 AM VOCATIONAL TEACHER Temperature 36.2 ??C (97.1 ??F) 09/15/2016 8:09 AM VOCATIONAL TEACHER Respiratory Rate - - Oxygen Saturation [...] fevers. Patient has had several admissions at [facility] for decubitus ulcers in the last [...] MD, 09/15/2016 9:14 AM Urology Staff Pager: [phone] TIONAL TEACHER documented in this encounter Plan of Treatment Not on filedocumented as of this encounter Visit Diagnoses Diagnosis Neurogenic bladder - Primary Neurogenic bladder, NOS documented in this encounter Care Teams Regulatory Lead Relationship Specialty Start Date End Date Provider, Outside PCP - General 03/13/09 10/22/18 [place] [address] documented as of this encounter
--- OUTSIDE RECORDS SUMMARY | 2022-07-04 12:48 | XMS_ITS | Encounter Summary ---
:1955 Author Organization [facility] Address [address] [place] [address] Phone Care Team Providers Name Role Phone Provider, Outside Primary Care Provider Unavailable Encounter Details Date Type Department Care Team Description 01/02/2018 Nurse Triage Clinic & Specialty Center Farida Dueñas, electrical hardware engineer Clinic [address] [address] [place], [place] [address] Social History Tobacco Use Types [...] on filedocumented in this encounter Care Teams Hazard Waste Handler Relationship Specialty Start Date End Date Provider, Outside PCP - General 03/13/09 10/22/18 [place] [address] documented as of this encounter
--- OUTSIDE RECORDS SUMMARY | 2022-07-04 12:48 | XMS_ITS | Encounter Summary ---
:1955 Author Organization [facility] Address [address] [place] [address] Phone Care Team Providers Name Role Phone Provider, Outside Primary Care Provider Unavailable Reason for Visit Reason Onset Date Comments Refill Request 12/27/2017 propantheline Medication Refill 01/08/2018 propantheline Encounter Details Date Type Department Care Team Description 12/27/2017 Refill Clinic & Specialty Monty Garcia MD Refill Request Center Urology Clini c 701 [facility] P5 (propantheline); [address] Medication Refill [place], [place] [phone] (propantheline) [phone] (Wo rk) Social History Tobacco Use Types [...] generic message for pt to call the [facility] and ask for a RN. A/P: [...] chart- no MITCHELL on file. Wale Russell telegraphic typewriter operator does have message to pass along, but no MITCHELL in the chart and cannot share info due to HIPPA. Charlene Russell said she understood. She requested we call [facility] and let him know the response. Water Filterer Helper called [facility] and no answer. Left message [...] Center 02/01/2018 2:00 PM Monty Garcia MD [facility] Special documented in this encounter Plan of Treatment Not on filedocumented as of this encounter Visit Diagnoses Not on filedocumented in this encounter Care Teams Electromechanical Inspector Relationship Specialty Start Date End Date Provider, Outside PCP - General 03/13/09 10/22/18 [place] [address] documented as of this encounter
--- OUTSIDE RECORDS SUMMARY | 2022-07-04 12:48 | XMS_ITS | Encounter Summary ---
:1955 Author Organization [facility] Address [address] [place] [address] Phone Care Team Providers Name Role Phone Provider, Outside Primary Care Provider Unavailable Encounter Details Date Type Department Care Team Description 10/07/2016 Hospital Encounter [facility] Ultrasound Monty Garcia MD [address] [place] [address] [place], [place] [phone] (Wo rk) Social History Tobacco Use Types [...] documented in this encounter Care Teams Tile Trimmer Relationship Specialty Start Date End Date Provider, Outside PCP - General 03/13/09 10/22/18 [place] [address] documented as of this encounter
--- OUTSIDE RECORDS SUMMARY | 2022-07-04 12:48 | XMS_ITS | Encounter Summary ---
:1955 Author Organization [facility] Address 1 [place] [address] Phone Care Team Providers Name Role Phone Provider, Outside Primary Care Provider Unavailable Reason for Visit Reason Onset Date Comments Refill Request 09/05/2016 Encounter Details Date Type Department Care Team Description 09/05/2016 Refill [facility] Urology Clinic Divya Caraballo RN Refill Request [address] [facility], [address] 701 [place], [place] [address] 4 [place] [address] Social History Tobacco Use Types Packs/Day Years [...] NOS documented in this encounter Care Teams Balance Wheel Hand Filer Relationship Specialty Start Date End Date Provider, Outside PCP - General 03/13/09 10/22/18 [place] [address] documented as of this encounter
--- OUTSIDE RECORDS SUMMARY | 2022-07-04 12:48 | XMS_ITS | Encounter Summary ---
:1955 Author Organization [facility][Note 3] Address [address] [place], [place] [address] [address] Phone Care Team Providers Name Role Phone Provider, Outside Primary Care Provider Unavailable Reason for Visit Reason Comments Follow-up Encounter Details Date Type Department Care Team Description 06/06/2013 Office Visit [facility] U[facility] Omar Savage, Neurog enic bladder Yordy FALCON (Primary Dx) [address], [address] [place], [place] [address] Social History Tobacco Use [...] Comments Blood Pressure 88/58 06/06/2013 11:33 AM MATERIAL PLANNING ANALYST Pulse 79 06/06/2013 11:33 AM MATERIAL PLANNING ANALYST Temperature 36.8 ??C (98.2 ??F) 06/06/2013 11:33 AM MATERIAL PLANNING ANALYST Respiratory Rate - - Oxygen Saturation - - Inhaled Oxygen Concentration - - Weight - - Height - - Body Mass Index - - documented in this encounter Patient Instructions Patient InstructionsOmar Savage MD - 06/06/2013 11:42 AM CST Patient may have renal ultrasound/bladder [facility] local [facility] with result forwarded to us RIAL PLANNING ANALYST documented in this encounter Progress Notes Omar Savage MD - 06/08/2013 8:17 AM CST [facility] [address], [address] [place] [address] (fax) [facility]#: [id number] PATIENT: MICHEAL FLETCHER : 1955 DATE: 06/06/2013 [...] MD Staff Physician Surgery Service Received in Bulldozer/Loader/Compactor/Scraper: 06/08/2013 05:34 M: 06/08/2013 08:17 filiberto STEWART/filiberto Voice ID: [id number] Document ID: [id number] RIAL PLANNING ANALYST Omar Savage MD - 06/08/2013 5:32 AM CST This office note has been dictated. RIAL PLANNING ANALYST documented in this encounter Plan of Treatment Not on filedocumented as of this encounter Visit Diagnoses Diagnosis Neurogenic bladder - Primary Neurogenic bladder, NOS documented in this encounter Care Teams Boatbuilder Wood Relationship Specialty Start Date End Date Provider, Outside PCP - General 03/13/09 10/22/18 [place] [address] documented as of this encounter
--- OUTSIDE RECORDS SUMMARY | 2022-07-04 12:48 | XMS_ITS | Encounter Summary ---
:1955 Author Organization [facility] Address [address] [place] [address] Phone Care Team Providers Name Role Phone Provider, Outside Primary Care Provider Unavailable Encounter Details Date Type Department Care Team Description 02/05/2016 Orders Only [facility] Monty Garcia, Neur ogenic bladder Yordy FALCON (Primary Dx) [address], [address] [facility] [address] [place], [place] [phone] Social History Tobacco Use Types Packs/Day Years [...] NOS documented in this encounter Care Teams Adjutant General Relationship Specialty Start Date End Date Provider, Outside PCP - General 03/13/09 10/22/18 [place] [address] documented as of this encounter
--- OUTSIDE RECORDS SUMMARY | 2022-07-04 12:48 | XMS_ITS | Encounter Summary ---
:1955 Author Organization [facility] Address [address] [place] [address] Phone Care Team Providers Name Role Phone Provider, Outside Primary Care Provider Unavailable Reason for Visit Reason Comments Other Encounter Details Date Type Department Care Team Description 02/05/2016 Refill [facility] Monty Morales MD Other [address] [facility], [address] [address] [place] [address] [phone] (Wo rk) Social History Tobacco Use Types [...] on filedocumented in this encounter Care Teams Service Electrician Relationship Specialty Start Date End Date Provider, Outside PCP - General 03/13/09 10/22/18 [place] [address] documented as of this encounter
--- OUTSIDE RECORDS SUMMARY | 2022-07-04 12:48 | XMS_ITS | Encounter Summary ---
:1955 Author Organization [facility] Address [address] [place] [address] Phone Care Team Providers Name Role Phone Provider, Outside Primary Care Provider Unavailable Reason for Visit Reason Onset Date Comments Refill Request 12/17/2013 Propantheline Encounter Details Date Type Department Care Team Description 12/17/2013 Refill [facility] Omar Savage MD Refill Request [facility] (Propantheline) [address] [facility], [address] [place], [place] [address] Social History Tobacco Use Types [...] in this encounter Care Teams Director Of Personnel Relationship Specialty Start Date End Date Provider, Outside PCP - General 03/13/09 10/22/18 [place] [address] documented as of this encounter
--- OUTSIDE RECORDS SUMMARY | 2022-07-04 12:48 | XMS_ITS | Encounter Summary ---
:1955 Author Organization [facility] Address [address] [place] [address] Phone Care Team Providers Name Role Phone Provider, Outside Primary Care Provider Unavailable Reason for Visit Reason Comments Bladder Problem Encounter Details Date Type Department Care Team Description 01/26/2015 Office Visit [facility] Urology Clinic Monty Garica Neur ogenic bladder Yordy FALCON (Primary Dx) [address] [facility] [address] [place], [place] [phone] Social History Tobacco Use Types Packs/Day Years [...] - 01/26/2015 4:13 PM CDT UROLOGY CLINIC [facility]: NEW PATIENT/CONSULT VISIT Khanh Rene : 1955 [...] in 1 year, or sooner PRN. Monty Gracia MD, 01/26/2015 4:13 PM documented in this encounter Plan of Treatment Not on filedocumented as of this encounter Visit Diagnoses Diagnosis Neurogenic bladder - Primary Neurogenic bladder, NOS documented in this encounter Care Teams Bsa Officer Relationship Specialty Start Date End Date Provider, Outside PCP - General 03/13/09 10/22/18 [place] [address] documented as of this encounter
--- OUTSIDE RECORDS SUMMARY | 2022-07-04 12:48 | XMS_ITS | Encounter Summary ---
:1955 Author Organization [facility] Address [address] [place] [address] Phone Care Team Providers Name Role Phone Provider, Outside Primary Care Provider Unavailable Reason for Visit Reason Onset Date Comments Other 02/05/2016 Encounter Details Date Type Department Care Team Description 02/05/2016 Telephone [facility] [place] [facility] Selena Garcia MD plan of care [place] [address] [place] [address] [address] [facility], [address] [place] [address] [place], [place] [address] [phone] Social History Tobacco Use Types Packs/Day Years [...] on filedocumented in this encounter Care Teams Spud Sorter Relationship Specialty Start Date End Date Provider, Outside PCP - General 03/13/09 10/22/18 [place] [address] documented as of this encounter
--- OUTSIDE RECORDS SUMMARY | 2022-07-04 12:49 | XMS_ITS | Encounter Summary ---
:1955 [address] [facility] Address [address] [place] [address] Phone Care Team Providers Name Role Phone Provider, Outside Primary Care Provider Unavailable Encounter Details Date Type Department Care Team Description 09/07/2012 Letters(Tab) [facility] Urology Clinic Omar Reyes MD [address] [place] [address], [address] [place], [place] [address] Social History Tobacco Use Types Packs/Day Years Used Date Smoking Tobacco: Former Cigarettes Cigars Smokeless Tobacco: Never Alcohol Use Standard Drinks/Week Comments Yes 3.3 (1 standard drink = 0.6 oz pure alco hol) once in while Sex Assigned at Date Recorded Not on file documented as of this encounter Progress Notes Omar Savage MD - 09/07/2012 7:45 AM CST [facility] [address] [place], [place] [address] September 07, 2012 TO: Micheal [place] [id number] [address] [address] RE:MICHEAL FLETCHER MR#:[id number] :1955 Dear Mr. Fletcher: From your recent Urology Clinic visit, your urine culture grew only mixed gram-positive organisms, which are not considered an infection. Please feel free to contact me for questions. Best wishes. Looking forward to seeing you at your next scheduled visit. Sincerely, Omar Savage MD Staff Physician Surgery Service Received in Tools Administrator: 09/07/2012 07:32 M: 09/07/2012 07:45 cn CS/cn Voice ID: [id number] Document ID: [id number] cc:MICHEAL FLETCHER [id number] [place] [address] ATOR MECHANIC APPRENTICE documented in this encounter Plan of Treatment Not on filedocumented as of this encounter Visit Diagnoses Not on filedocumented in this encounter Care Teams Electronics Recycler Relationship Specialty Start Date End Date Provider, Outside PCP - General 03/13/09 10/22/18 [place] [address] documented as of this encounter
--- OUTSIDE RECORDS SUMMARY | 2022-07-04 12:49 | XMS_ITS | Encounter Summary ---
:1955 Author Organization [facility] Address [address] [place] [address] Phone Care Team Providers Name Role Phone Provider, Outside Primary Care Provider Unavailable Encounter Details Date Type Department Care Team Description 10/19/2010 Refill [facility] Omar Savage MD [address] [facility], [address] Research Only [place], [place] [address] Social History Tobacco Use Types [...] Insurance: PCP: Outside Provider Comment: Please call [facility] pharmacy regarding getting an alternative for his medication Propantheline. Please call Ange Valdivia Return Call at: [phone] documented in this encounter Plan of Treatment Not on filedocumented as of this encounter Visit Diagnoses Diagnosis Neurogenic bladder - Primary Neurogenic bladder, NOS documented in this encounter Care Teams Salon Assistant Relationship Specialty Start Date End Date Provider, Outside PCP - General 03/13/09 10/22/18 [place] [address] documented as of this encounter
--- OUTSIDE RECORDS SUMMARY | 2022-07-04 12:49 | XMS_ITS | Encounter Summary ---
:1955 Author Organization [facility] Address [address] [place], [place] [address] [address] Phone Care Team Providers Name Role Phone Provider, Outside Primary Care Provider Unavailable Encounter Details Date Type Department Care Team Description 10/01/2010 Orders Only [facility] Omar Savage, Neurogenic bladder [address], [address] (Primary Dx) [place], [place] [address] [address] Only [phone] Social History Tobacco Use Types Packs/Day Years [...] NOS documented in this encounter Care Teams Editor Magazine Relationship Specialty Start Date End Date Provider, Outside PCP - General 03/13/09 10/22/18 [place] [address] documented as of this encounter
--- OUTSIDE RECORDS SUMMARY | 2022-07-04 12:49 | XMS_ITS | Encounter Summary ---
:1955 Author Organization [facility] Address [address] [facility] [address] Phone Care Team Providers Name Role Phone Provider, Outside Primary Care Provider Unavailable Reason for Visit Reason Comments Follow-up Encounter Details Date Type Department Care Team Description 12/06/2010 Office Visit [facility] Phys Med/Rehab Sameera Frances U lcer () (Primary Clinic MD Dx) [address] [facility] [address] [place], [place] [address] [place], [place] [phone] (Wo rk) Social History Tobacco Use Types [...] site documented in this encounter Care Teams High School Science Teacher Relationship Specialty Start Date End Date Provider, Outside PCP - General 03/13/09 10/22/18 [place] [address] documented as of this encounter
--- OUTSIDE RECORDS SUMMARY | 2022-07-04 12:49 | XMS_ITS | Encounter Summary ---
:1955 Author Organization [facility] Address [address] [place] [address] Phone Care Team Providers Name Role Phone Provider, Outside Primary Care Provider Unavailable Reason for Visit Reason Comments Other Encounter Details Date Type Department Care Team Description 01/17/2012 Telephone [facility] [place] Omar Reyes MD [address] [facility], [address] Research [place], [place] [address] Social History Tobacco Use Types [...] Outside Provider Comment: Expects Return Call at: [phone] documented in this encounter Plan of Treatment Not on filedocumented as of this encounter Visit Diagnoses Not on filedocumented in this encounter Care Teams Bureau Director Relationship Specialty Start Date End Date Provider, Outside PCP - General 03/13/09 10/22/18 [place] [address] documented as of this encounter
--- OUTSIDE RECORDS SUMMARY | 2022-07-04 12:49 | XMS_ITS | Encounter Summary ---
:1955 Author Organization [facility] Address [address] [place] [address] Phone Care Team Providers Name Role Phone Provider, Outside Primary Care Provider Unavailable Encounter Details Date Type Department Care Team Description 11/15/2010 Office Visit [facility] [place]/Rehab Sameera Frances D ecubitus ulcer Clinic (Primary Dx) [address] [facility] [address] [place], [place] [address] [place], [place] [phone] (Wo rk) Social History Tobacco Use Types [...] Frances MD - 11/16/2010 10:42 [place] [address] MEDREC#: [id number] PATIENT: MICHEAL RENE : 1955 DATE: 11/15/2010 [...] Medicine and Rehabilitation Service Received in Nuclear Technician: 11/15/2010 12:55 M: 11/16/2010 02:37 bj CLR/bj Voice ID: [id number] Document ID: [id number] cc:[place] [address] Sameera Frances MD - 11/15/2010 12:44 PM CDT See dictation Sameera Frances MD, 11/15/2010 12:44 PM documented in this encounter Plan of Treatment Not on filedocumented as of this encounter Visit Diagnoses Diagnosis Decubitus ulcer - Primary Pressure ulcer, unspecified site documented in this encounter Care Teams Snuff Grinder And Screener Relationship Specialty Start Date End Date Provider, Outside PCP - General 03/13/09 10/22/18 [place] [address] documented as of this encounter
--- OUTSIDE RECORDS SUMMARY | 2022-07-04 12:49 | XMS_ITS | Encounter Summary ---
:1955 Author Organization [facility] Address [address] [place] [address] Phone Care Team Providers Name Role Phone Provider, Outside Primary Care Provider Unavailable Reason for Visit Reason Comments Follow-up Encounter Details Date Type Department Care Team Description 09/03/2012 Office Visit [facility] [place] Pooja Krueger MD [address] [facility] [address] [place], [place] [id number] Neurogenic bladder [place] Omar Savage MD Research Only (Primary Dx) [address], [address] [place], [place] [address] Social History Tobacco Use Types [...] Comments Blood Pressure 112/64 09/03/2012 1:52 PM COMPLEX CARE NURSE Pulse 68 09/03/2012 1:52 PM COMPLEX CARE NURSE Temperature - - Respiratory Rate - - Oxygen Saturation - - Inhaled Oxygen Concentration - - Weight - - Height - - Body Mass Index - - documented in this encounter Progress Notes Omar Savage MD - 09/04/2012 8:32 PM CST [facility] [address] [facility], [address] [place] [address] (fax) [facility] [id number] PATIENT: MICHEAL RENE : 1955 DATE: 09/03/2012 [...] MD Staff Physician Surgery Service Received in Collar Cutter: 09/04/2012 12:20 M: 09/04/2012 20:32 [facility]/ Voice ID: [id number] Document ID: [id number] LEX CARE NURSE Omar Savage MD - 09/04/2012 12:19 PM CST This office note has been dictated. LEX CARE NURSE documented in this encounter Plan of Treatment Not on filedocumented as of this encounter Procedures Procedure Name Priority Date/Time Associated Diagnosis Comme nts URINE CULTURE Routine 09/03/2012 2:22 PM Neurogenic bladder Re sults for this COMPLEX CARE NURSE procedure are i n the results section. URINALYSIS,TOTAL Routine 09/03/2012 2:22 PM Neurogenic bladder Results for this COMPLEX CARE NURSE procedure are i n the results section. documented in this encounter Results URINE CULTURE (09/03/2012 2:22 PM COMPLEX CARE NURSE) [facility] Method Time Signature Urine Cult [facility] ? PROCEDURE: MB Urine Culture ?SOURCE: Urine Midstream ?COLLECTED: 09/03/2012 14:22 ? BODY SITE: ?FREE TEXT SOURCE: ?STARTED: 09/03/2012 15:35 ? FINAL REPORT Final Report Verified:09/05/2012 13:06 50,000 - 100,000 organisms/ml Mixed gram positive arthur. No further work-up. Specimen Anatomical Collection Method Collection Time Receive d Time (Source) Location / / Volume Laterality Urine Midstream. 09/03/2012 2:22 PM 09/03 3:34 (Urine) COMPLEX CARE NURSE PM COMPLEX CARE NURSE Omar Savage MD LAB MICROBIOLOGY Performing Organization Address City/State/ZIP Code Phon e Number [facility] [place] [address] (ABNORMAL) URINALYSIS, TOTAL (09/03/2012 2:22 PM COMPLEX CARE NURSE) athologist Signature Color YELLOW YELLOW [facility] Appearance CLEAR CLEAR [facility] Urine Glucose NEGATIVE NEGATIVE [facility] Bili UA NEGATIVE NEGATIVE [facility] Comment: Confirmatory test not available . Ketones NEGATIVE NEGATIVE [facility] Specific [place] 1.016 1.003 - 1.030 [facility] Blood Ur NEGATIVE Neg-Trace [facility] PH Urine 6.5 5.0 - 7.0 [facility] Protein Ur NEGATIVE Neg-Trace [facility] Urobilinogen 1.0 0.2 - 1.0 EU/dL [facility] Nitrite Ur NEGATIVE NEGATIVE [facility] Leuk Est SMALL (A) Neg-Trace [facility] WBC Ur 6-20 (A) 0 - 5 perHPF [facility] RBC Ur 0-5 0 - 5 perHPF [facility] SQ EPITH 2+ 1+ [facility] Specimen Anatomical Collection Method Collection Time Receive d Time (Source) Location / / Volume Laterality Urine 09/03/2012 2:22 PM 3 2:51 COMPLEX CARE NURSE PM COMPLEX CARE NURSE Omar Savage MD LABORATORY Performing Organization Address City/State/ZIP Code Phon e Number [facility] [place] [address] documented in this encounter Visit Diagnoses Diagnosis Neurogenic bladder - Primary Neurogenic bladder, NOS documented in this encounter Care Teams Professor Of Poultry Science Relationship Specialty Start Date End Date Provider, Outside PCP - General 03/13/09 10/22/18 [place] [address] documented as of this encounter
--- OUTSIDE RECORDS SUMMARY | 2022-07-04 12:49 | XMS_ITS | Encounter Summary ---
:1955 Author Organization [facility] Address [address] [facility] [place] [address] Phone Care Team Providers Name Role Phone Provider, Outside Primary Care Provider Unavailable Reason for Visit Reason Comments Follow-up Encounter Details Date Type Department Care Team Description 02/14/2011 Office Visit [facility] Phys Med/Rehab Sameera Frances D ecubitus ulcer Clinic (Primary Dx) [address] [facility] [address] [place], [place] [address] [place], [place] [phone] (Wo rk) Social History Tobacco Use Types [...] site documented in this encounter Care Teams Commercial Drafter Relationship Specialty Start Date End Date Provider, Outside PCP - General 03/13/09 10/22/18 [place] [address] documented as of this encounter
--- OUTSIDE RECORDS SUMMARY | 2022-07-04 12:49 | XMS_ITS | Encounter Summary ---
:1955 Author Organization [facility] Address [address] [place] [address] Phone Care Team Providers Name Role Phone Provider, Outside Primary Care Provider Unavailable Reason for Referral Consult/Test/Treat (Routine) - Closed Specialty Diagnoses / Procedures Referred By Contact Refer red To Contact Physical Therapy Diagnoses Decubitus ulcer Sameera Frances MD [address] [place], [place] [address] Referral ID Status Reason Start Date Expiration Date Visits Requ ested Visits Authorized [id number] Closed 01/17/2011 01/18/2012 1 1 Reason for Visit Reason Comments Neurologic Problem Encounter Details Date Type Department Care Team Description 01/17/2011 Office Visit [facility]/Rehab Sameera Frances D ecubitus ulcer Clinic (Primary Dx) [address] [place], [place] [address] [place], [place] [phone] (Wo rk) Social History Tobacco Use Types [...] site documented in this encounter Care Teams Electrician Yard Relationship Specialty Start Date End Date Provider, Outside PCP - General 03/13/09 10/22/18 [place] [address] documented as of this encounter
--- OUTSIDE RECORDS SUMMARY | 2022-07-04 12:49 | XMS_ITS | Encounter Summary ---
:1955 Author Organization [facility] Address [address] [facility] [place] [address] Phone Care Team Providers Name Role Phone Provider, Outside Primary Care Provider Unavailable Reason for Visit Reason Comments Neurologic Problem pmr Encounter Details Date Type Department Care Team Description 12/27/2010 Office Visit [facility] Phys Med/Rehab Abhinav Chavez MD NEED ADDRESS Ulcer () (Primary Clinic Sameera Frances MD [address] [place] [address] Dx) [address] [place], [place] [address] Social History Tobacco Use Types [...] documented in this encounter Care Teams Manager Care Relationship Specialty Start Date End Date Provider, Outside PCP - General 03/13/09 10/22/18 [place] [address] documented as of this encounter
--- OUTSIDE RECORDS SUMMARY | 2022-07-04 12:49 | XMS_ITS | Encounter Summary ---
:1955 Author Organization [facility] Address [address] [facility] [place] [address] Phone Care Team Providers Name Role Phone Provider, Outside Primary Care Provider Unavailable Reason for Visit Reason Onset Date Comments Call Back 11/08/2010 Encounter Details Date Type Department Care Team Description 11/08/2010 Telephone [facility] [place] Neurology Clini c Vickie Odell RN Call Back [address] [facility] [address] [address] [place], [place] [address] Social History Tobacco Use [...] that was to call [employer] [phone] to order supplieslast after last visit 11-01-10. [...] Outside Provider Comment:na Expects Return Call at: [phone] documented in this encounter Plan of Treatment Not on filedocumented as of this encounter Visit Diagnoses Not on filedocumented in this encounter Care Teams Catalyst Manufacturing Operator Relationship Specialty Start Date End Date Provider, Outside PCP - General 03/13/09 10/22/18 [place] [address] documented as of this encounter
--- OUTSIDE RECORDS SUMMARY | 2022-07-04 12:49 | XMS_ITS | Encounter Summary ---
:1955 Author Organization [facility] Address [address] [place] [address] Phone Care Team Providers Name Role Phone Provider, Outside Primary Care Provider Unavailable Reason for Visit Reason Comments Neurologic Problem pmr Encounter Details Date Type Department Care Team Description 11/01/2010 Office Visit [facility] Phys Med/Rehab Sameera Frances D ecubitus ulcer, Clinic MD mackey (Primary Dx) [address] [facility] [address]200 Mail Code P5 [place], [place] [address] [place], [place] [phone] (Wo rk) Social History Tobacco Use Types [...] CDT Height - - Body Mass Index 74047.15 07/31/2007 3:21 PM SIGNALS ANALYST documented in this encounter Patient Instructions Patient [...] 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
--- OUTSIDE RECORDS SUMMARY | 2022-07-04 12:50 | XMS_ITS | Encounter Summary ---
:1955 Author Organization [facility] Address [address] [place] [address] Phone Care Team Providers Name Role Phone Provider, Outside Primary Care Provider Unavailable Reason for Visit Reason Onset Date Comments Call Back 09/30/2010 Encounter Details Date Type Department Care Team Description 09/30/2010 Nurse Triage [facility] Contact Center Quang Toscano, Call Back [facility] [address] [place] [address] Social History Tobacco Use Types Packs/Day [...] requests that she call back again at [phone]. R: routing to ITAL INSURANCE REPRESENTATIVE Telephone Encounter - Quang Toscano RN - 09/30/2010 4:24 PM HOSPITAL INSURANCE REPRESENTATIVE Message copied by QUANG TOSCANO on MonSep [...] CHRISTIANO TINAJERO Phone number for return call: [phone] ITAL INSURANCE REPRESENTATIVE documented in this encounter Plan of Treatment Not on filedocumented as of this encounter Visit Diagnoses Not on filedocumented in this encounter Care Teams Bank Accountant Relationship Specialty Start Date End Date Provider, Outside PCP - General 03/13/09 10/22/18 [place] [address] documented as of this encounter
--- OUTSIDE RECORDS SUMMARY | 2022-07-04 12:50 | XMS_ITS | Encounter Summary ---
:1955 Author Organization [facility] Address [address] [place] [address] Phone Care Team Providers Name Role Phone Pcp, No Primary Care Provider Unavailable Reason for Visit Reason Comments Follow-up med check-in Encounter Details Date Type Department Care Team Description 01/24/2008 Office Visit [facility] Urology Omar Savage, Neurogenic Bladder [address] [facility] (Primary Dx) [address] [place], [place] [address] Social History Tobacco Use Types Packs/Day Years Used Date Smoking Tobacco: Never Alcohol Use Standard Drinks/Week Comments Yes 3.3 (1 standard drink = 0.6 oz pure alco hol) Sex Assigned at Date Recorded Not on file documented as of this encounter Progress Notes Omar Savage MD - 01/29/2008 2:47 PM CDT [facility] [address] [facility], [address] [place] [address] (fax) MEDREC#: [id number] PATIENT: MICHEAL RENE : 1955 DATE: 01/24/2008 [...] this examination. Omar Savage MD Received in Edge Plugger: 01/24/2008 17:47:53 (M: 01/29/2008 08:19:42 aml) CS/aml Voice ID: [id number] Document ID: [id number] cc: Omar Savage MD - 01/24/2008 5:48 [...] eGFR, >60 mL/min/1.73 HFA LAB Non- m2 Egyptian Specimen Anatomical Collection Method Collection Time Receive d Time (Source) Location / / Volume Laterality Blood 01/24/2008 4:05 PM 8 4:29 CDT PM CDT Omar Savage MD LABORATORY Performing Organization Address City/[facility]/ZIP Code Phon e Number HFA LAB GLOMERULAR FILTRATION RATE B (01/24/2008 4:05 PM CDT) P athologist Signature eGFR, >60 mL/min/1.73 HFA LAB Egyptian m2 Comment: IDMS TRACEABLE CALIBRATION EFFECTIVE 08/16/2007 Specimen Anatomical Collection Method Collection Time Receive d Time (Source) Location / / Volume Laterality Blood 01/24/2008 4:05 PM 8 4:29 CDT PM CDT Omar Savage MD LABORATORY Performing Organization Address City/[facility]/ZIP Code Phon e Number HFA LAB (ABNORMAL) [...] documented in this encounter Care Teams Senior Infrastructure Architect Relationship Specialty Start Date End Date Pcp, No PCP - General 01/24/08 03/12/09 [facility] [place] [address] documented as of this encounter
--- OUTSIDE RECORDS SUMMARY | 2022-07-04 12:50 | XMS_ITS | Encounter Summary ---
:1955 Author Organization [facility] Address [address] [place] [address] Phone Care Team Providers Name Role Phone Provider, Outside Primary Care Provider Unavailable Encounter Details Date Type Department Care Team Description 05/17/2010 Letters(Tab) HFA Urology Omar Savage MD [address] [place] [address], [address] Only [place] [address] Social History Tobacco Use Types Packs/Day Years Used Date Smoking Tobacco: Never Alcohol Use Standard Drinks/Week Comments Yes 3.3 (1 standard drink = 0.6 oz pure alco hol) Sex Assigned at Date Recorded Not on file documented as of this encounter Progress Notes Omar Savage MD - 05/18/2010 6:15 AM CDT [facility] [address] [place] [address] May 17, 2010 TO: Micheal Rene [address] [facility] [place] [address] RE:MICHEAL RENE MR#:[id number] :1955 Dear Mr. Rene: From your recent urology clinic visit, the renal ultrasound that was performed does not show any evidence of kidney abnormalities. There is no dilation, no hydronephrosis or stones noted. Best wishes. Look forward to seeing you in 1 year. Please feel free to contact me for questions. Sincerely, Omar Savage MD Staff Physician Surgery Service Received in Systems Applications Programming Lead: 05/17/2010 21:18 M: 05/18/2010 03:15 javon CS/javon Voice ID: [id number] Document ID: [id number] cc:Micheal Rene [id number] [address] [id number] documented in this encounter Plan of Treatment Not on filedocumented as of this encounter Visit Diagnoses Not on filedocumented in this encounter Care Teams Tape Duplicator Relationship Specialty Start Date End Date Provider, Outside PCP - General 03/13/09 10/22/18 [place] [address] documented as of this encounter
--- OUTSIDE RECORDS SUMMARY | 2022-07-04 12:50 | XMS_ITS | Encounter Summary ---
:1955 Author Organization [facility] Address [address] [place] [address] Phone Care Team Providers Name Role Phone Unavailable Primary Care Provider Unavailable Reason for Visit Reason Onset Date Comments Medication Refill 10/16/2007 Encounter Details Date Type Department Care Team Description 10/16/2007 Refill [facility] Urology Omar Savage MD Medication Refill [address] [facility], [address] [place], [place] [address] Social History Tobacco Use Types [...]
--- OUTSIDE RECORDS SUMMARY | 2022-07-04 12:50 | XMS_ITS | Encounter Summary ---
:1955 Author Organization [facility] Address [address] [place] [address] Phone Care Team Providers Name Role Phone Provider, Outside Primary Care Provider Unavailable Reason for Visit Reason Onset Date Comments Refill Request 04/30/2010 Encounter Details Date Type Department Care Team Description 04/30/2010 Refill HFA Urology Omar Savage MD Refill Request [address] [facility], [address] [place], [place] [address] Social History Tobacco Use Types [...] NOS documented in this encounter Care Teams Nurse Anesthesia Program Director Relationship Specialty Start Date End Date Provider, Outside PCP - General 03/13/09 10/22/18 [place] [address] documented as of this encounter
--- OUTSIDE RECORDS SUMMARY | 2022-07-04 12:50 | XMS_ITS | Encounter Summary ---
:1955 Author Organization [facility] Address [address] [place] [address] Phone Care Team Providers Name Role Phone [...]
--- OUTSIDE RECORDS SUMMARY | 2022-07-04 12:50 | XMS_ITS | Encounter Summary ---
:1955 Author Organization [facility] Address [address] [facility] [address] [place] [address] Phone Care Team Providers Name Role Phone Provider, Outside Primary Care Provider Unavailable Reason for Visit Reason Comments Follow-up 19 months foolow up visit [facility] Dr Yvrose Mukherjee [facility] Dx C7 Spinal Cord Injury Encounter Details Date Type Department Care Team Description 03/13/2009 Office Visit HFA Neuromuscular Sameera Frances Don plegia () Clinic MD Val[place] (Primary Dx) [address], [address] [place] [address] Mail Code P5 [place], [place] [address] [place], [place] [phone] [address] Social History Tobacco Use Types Packs/Day [...] visit with Dr Frances A [facility] ([phone]) Rx/orders given to Micheal by Dr Frances for Wheelchair lumbar support and wheelchair repairs, bilateral arm rests, replace sling back Blanca Ziegler RN documented in this encounter Progress Notes Sameera Frances MD - 03/26/2009 10:04 AM CDT [facility] [address] [facility], [address] [place] [address] (fax) [facility] [id number] PATIENT: MICHEAL FLETCHER : 1955 DATE: 03/13/2009 NEUROMUSCULAR PHYSICAL MEDICINE NOTE HISTORY OF PRESENT ILLNESS: Micheal Fletcher is a 54-year-old gentleman with a C7 [place] Spinal Injury [employer] (AUDREY) B spinal cord [...] that eventually led to pacemaker placement at [facility]. He said that his angiogram did [...] discontinues that activity. He is using a Graphiclyie wheelchair with a Joby cushion. It is [...] a slow healing coccyx ulcer at the [facility]. We have discussed whether he should [...] that complication. Sameera Frances MD Received in Welt Slasher: 03/20/2009 12:28:50 (M: 03/24/2009 03:22:10 golden) HOMA/jlb Voice ID: [id number] Document ID: [id number] cc: Abida Pulliam DO, [facility], [address] [place] [id number] Sameera Frances MD - 03/19/2009 6:44 PM CDT See dictation. documented in this encounter Nursing Notes 03/13/2009 8:00 AM CDT >> Blanca Ziegler RN MonMar 13, 2009 8:24 AM 19 months follow up visit with Dr Frances in Monday [facility]. DX of C7 Spinal Cord Injury, Quadriplegia, Neurogenic Bladder. B/P 87/60 pulse 105, states runs lower blood pressure. Self caths PRN during the day. Blanca Ziegler RN documented in this encounter Plan of Treatment Not on filedocumented as of this encounter Visit Diagnoses Diagnosis Quadriplegia () - Primary Quadriplegia, unspecified documented in this encounter Care Teams Inserting Machine Operator Relationship Specialty Start Date End Date Provider, Outside PCP - General 03/13/09 10/22/18 [place] [address] documented as of this encounter
--- OUTSIDE RECORDS SUMMARY | 2022-07-04 12:50 | XMS_ITS | Encounter Summary ---
:1955 Author Organization [facility] Address [address] [facility] [place] [address] Phone Care Team Providers Name Role Phone Provider, Outside Primary Care Provider Unavailable Reason for Visit Reason Comments Follow-up 13 months follow up visit [facility] Dr Frances [facility] Monday PM[facility]R [facility] for DX of C7 Spinal Cord Injury Encounter Details Date Type Department Care Team Description 04/20/2010 Office Visit HFA Neuromuscular Sameera Frances Don plegia () Clinic MD Valery (Primary Dx) [address], [address] [place] [address] Mail Code P5 [place], [place] [address] [place], [place] [phone] [address] Social History Tobacco Use Types Packs/Day Years [...] Frances for: 1) Wheelchair repair/s. Faxed to [facility] ([phone]) Referral to [facility]) Formal Wheelchair and wheeled mobility clinic faxedto scheduling to call Micheal to get scheduled ([phone]) Blanca Ziegler RN documented in this encounter Progress Notes Sameera Frances MD - 05/13/2010 3:35 PM CDT [facility] [address] [facility], [address] [place] [address] (fax) MEDREC#: [id number] PATIENT: MICHEAL FLETCHER : 1955 DATE: 04/20/2010 NEUROMUSCULAR PHYSICAL MEDICINE NOTE HISTORY OF PRESENT ILLNESS: Micheal Fletcher is a 55-year-old gentleman with a C7 [place] Spinal Cord Injury [employer] B spinal cord [...] be broken as far the spokes. The [id number] stability is poor. The back of the [...] his wheelchair and recommended he see the [facility] for a mapping of his buttocks and a more complete evaluation of his wheelchair. I do not think we need any changes in medications for spasticity. Sameera Frances MD Staff Physician Physical Medicine and Rehabilitation Service Received in Pan Greaser: 05/11/2010 20:55 M: 05/13/2010 10:09 ms CLR/ms Voice ID: [id number] Document ID: [id number] cc:[place] [address] Sameera Frances MD - 04/20/2010 11:01 AM CDT See dictation documented in this encounter Nursing Notes 04/20/2010 10:00 AM CDT >> Blanca Ziegler RN MonApr 23, 2010 1:47 PM 13 months follow up visit with Dr Frances [facility] for DX C7 Spinal Card injury that occurred 03/16/89. In manual wheelchair. Routine follow up visit with Dr Frances. Blanca Ziegler RN documented in this encounter Plan of Treatment Not on filedocumented as of this encounter Visit Diagnoses Diagnosis Quadriplegia () - Primary Quadriplegia, unspecified documented in this encounter Care Teams Counterintelligence/Humint Specialist Relationship Specialty Start Date End Date Provider, Outside PCP - General 03/13/09 10/22/18 [place] [address] documented as of this encounter
--- OUTSIDE RECORDS SUMMARY | 2022-07-04 12:50 | XMS_ITS | Encounter Summary ---
:1955 Author Organization [facility] Address [address] [place] [address] Phone Care Team Providers Name Role Phone Pcp, No Primary Care Provider Unavailable Reason for Visit Reason Onset Date Comments Refill Request 09/02/2008 Encounter Details Date Type Department Care Team Description 09/02/2008 Refill HFA Urology Omar Savage MD Refill Request [address] [facility], [address] [place], [place] [address] Social History Tobacco Use Types Packs/Day Years Used Date Smoking Tobacco: Never Alcohol Use Standard Drinks/Week Comments Yes 3.3 (1 standard drink = 0.6 oz pure alco hol) Sex Assigned at Date Recorded Not on file documented as of this encounter Plan of Treatment Not on filedocumented as of this encounter Visit Diagnoses Not on filedocumented in this encounter Care Teams Advisor Consultant Relationship Specialty Start Date End Date Pcp, No PCP - General 01/24/08 03/12/09 [facility] [address] documented as of this encounter
--- OUTSIDE RECORDS SUMMARY | 2022-07-04 12:50 | XMS_ITS | Encounter Summary ---
:1955 Author Organization [facility] Address [address] [place] [address] Phone Care Team Providers Name Role Phone Provider, Outside Primary Care Provider Unavailable Reason for Visit Reason Onset Date Comments Call Back 09/06/2010 Encounter Details Date Type Department Care Team Description 09/06/2010 Telephone [facility] Neurology Clini c Vickie Odell RN Call Back [address] [address] [address] [place], [place] [address] Social History Tobacco Use Types [...] states that he does not have a sales representative public utilities in [facility]. R: Patient quadriplegic states that he would like to speak directly with . Routing to TERINTELLIGENCE ANALYST Telephone Encounter - Vickie Odell RN - 09/06/2010 1:59 PM CST Message copied by VICKIE ODELL on MonSep 06, 2010 1:59 PM ------ Message from: BRANDEE TALAMANTES Created: MonSep 06, 2010 1:52 PM 09/06/2010 1:53 PM Khanh Edgard @[email or web address]@ 1955 Questions regarding a referral for a pressure sore from Dr Frances. Best number to call patient back: [phone]. Best time of day to reach patient:anytime. TERINTELLIGENCE ANALYST documented in this encounter Plan of Treatment Not on filedocumented as of this encounter Visit Diagnoses Not on filedocumented in this encounter Care Teams Hem Inspector Relationship Specialty Start Date End Date Provider, Outside PCP - General 03/13/09 10/22/18 [place] [address] documented as of this encounter
--- OUTSIDE RECORDS SUMMARY | 2022-07-04 12:50 | XMS_ITS | Encounter Summary ---
:1955 Author Organization [facility] Address [address] [place] [address] Phone Care Team Providers Name Role Phone [...] 09/23/2010 12:00 AM CSTAssociated Order(s): INFORMATION DISCLOSURE HOMETRICIAN documented in this encounter Plan of Treatment Not on filedocumented as of this encounter Procedures Procedure Name Priority Date/Time Associated Comments Diagnosis INFORMATION 09/23/2010 5:22 PM Results f or this DISCLOSURE PSYCHOMETRICIAN procedure are i n the results section. documented in this encounter Results INFORMATION DISCLOSURE (09/23/2010 5:22 PM PSYCHOMETRICIAN) Narrative 09/23/2010 5:22 PM PSYCHOMETRICIAN Procedure Note Unknown, Provider - 09/23/2010 12:00 AM CST Provider Unknown SCANNED CONSENTS documented in this encounter Visit Diagnoses Not on filedocumented in this encounter Care Teams Motor Vehicle Examiner Relationship Specialty Start Date End Date Provider, Outside PCP - General 03/13/09 10/22/18 [place] [address] documented as of this encounter
--- OUTSIDE RECORDS SUMMARY | 2022-07-04 12:50 | XMS_ITS | Encounter Summary ---
:1955 Author Organization [facility] Address [address] [place] [address] Phone Care Team Providers Name Role Phone Provider, Outside Primary Care Provider Unavailable Reason for Visit Reason Comments Referral Consult/Test/Treat (Routine) - Closed Specialty Diagnoses / Procedures Referred By Contact Refer red To Contact Plastic Surgery / Diagnoses Ulcer Sameera Frances, PLASTIC SURGERY [address] Mail Code [address] [place], [place] [address] Referral ID Status Reason Start Date Expiration Date Visits Requ ested Visits Authorized [id number] Closed 09/13/2010 09/13/2011 1 1 Encounter Details Date Type Department Care Team Description 09/17/2010 Office Visit [facility]astic Surg Bubba Loya () Sara Rasmussen MD (Primary Dx) [address] Mail Code [address] [place], [place] [address] [place], [place] [phone] Social History Tobacco Use Types Packs/Day Years Used Date Smoking Tobacco: Never Smokeless Tobacco: Never Alcohol Use Standard Drinks/Week Comments Yes 3.3 (1 standard drink = 0.6 oz pure alco hol) once in while Sex Assigned at Date Recorded Not on file documented as of this encounter Last Filed Vital Signs Vital Sign Reading Time Taken Comments Blood Pressure 112/77 09/17/2010 8:59 AM UTILIZATION SUPERVISOR Pulse 98 09/17/2010 8:59 AM UTILIZATION SUPERVISOR Temperature 35.9 ??C (96.7 ??F) 09/17/2010 8:59 AM UTILIZATION SUPERVISOR Respiratory Rate - - Oxygen Saturation [...] P: As ordered by provider. Dr loya IZATION SUPERVISOR Arnold Mejía MD - 09/17/2010 9:45 [...] documented. Bubba Loya MD, 09/17/2010 11:39 AM IZATION SUPERVISOR documented in this encounter Plan of Treatment Not on filedocumented as of this encounter Procedures Procedure Name Priority Date/Time Associated Diagnosis Comme nts SED RATE (ESR) Routine 09/17/2010 9:44 AM Quadriplegia () Re sults for this UTILIZATION SUPERVISOR procedure are i n the results section. CBC WITH PLATELET Routine 09/17/2010 9:44 AM Quadriplegia () Results for this UTILIZATION SUPERVISOR procedure are i n the results section. documented in this encounter Results (ABNORMAL) XR PELVIS WITH BOTH LAT HIP (09/17/2010 10:28 AM UTILIZATION SUPERVISOR) Anatomical Region Laterality Modality Pelvis Computed Radiography Specimen (Source) Anatomical Collection Method Collection Time Re ceived Time Location / / Volume Laterality 09/17/2010 10:28 AM UTILIZATION SUPERVISOR Impressions 09/17/2010 10:35 AM UTILIZATION SUPERVISOR Impression: Severe osteoarthritis involving both hips with postsurgical fixation of a left hip fracture. There is no cortical irregularity to suggest osteomyelitis. This however lucency surrounding a fe moral IM nail. Three-phase bone scan may be beneficial to assess for infection surrounding the nail if clinically indicated. Reading Radiologist: Khanh Brunson Narrative 09/17/2010 10:35 AM UTILIZATION SUPERVISOR History: Rule out osteo. Comparison: None. [...] (ABNORMAL) CBC WITH PLATELET (09/17/2010 9:44 AM UTILIZATION SUPERVISOR) P athologist Signature WBC 5.3 4.0 - 10.0 [facility] k/cmm RBC 4.03 (L) 4.60 - 6.00 [facility] m/cmm Hgb 11.8 (L) 13.1 - 17.5 [facility] g/dL Hematocrit 36.4 (L) 40.0 - 51.0 [facility] % MCV 90.3 80.0 - [facility] 100.0 fL MCH 29.3 25.0 - 32.0 [facility] pg MCHC 32.4 31.0 - 36.0 [facility] g/dL RDW 12.8 11.5 - 14.5 [facility] % Plt 308 150 - 400 [facility] k/cmm MPV 8.0 6.5 - 12.5 [facility] fL NRBC .0 0.0 - 0.0 % [facility] Specimen Anatomical Collection Method Collection Time Receive d Time (Source) Location / / Volume Laterality Blood 09/17/2010 9:44 AM 1 9:44 UTILIZATION SUPERVISOR AM UTILIZATION SUPERVISOR Arnold Mejía MD LABORATORY Performing Organization Address City/[facility]/ZIP [facility] Phon e Number [facility] [place] [address] LAB (ABNORMAL) SED RATE (ESR) (09/17/2010 9:44 AM UTILIZATION SUPERVISOR) P athologist Signature Sed Rate 51 (H) 0 - 10 mm/hr [facility] Specimen Anatomical Collection Method Collection Time Receive d Time (Source) Location / / Volume Laterality Blood 09/17/2010 9:44 AM 1 9:44 UTILIZATION SUPERVISOR AM UTILIZATION SUPERVISOR Arnold Mejía MD LABORATORY Performing Organization Address City/[facility] Phon e Number [facility] [place] [address] LAB documented in this encounter Visit Diagnoses Diagnosis Quadriplegia () - Primary Quadriplegia, unspecified Quadriplegia () Quadriplegia, unspecified documented in this encounter Care Teams Sealer Aircraft Relationship Specialty Start Date End Date Provider, Outside PCP - General 03/13/09 10/22/18 [place] [address] documented as of this encounter
--- OUTSIDE RECORDS SUMMARY | 2022-07-04 12:50 | XMS_ITS | Encounter Summary ---
:1955 Author Organization [facility] Address [address] [place] [address] Phone Care Team Providers Name Role Phone Provider, Outside Primary Care Provider Unavailable Encounter Details Date Type Department Care Team Description 08/30/2010 Telephone [facility] Physical Therap y Reece Ziegler, [place] [address] [facility] [address] [place] [address] Social History Tobacco Use Types Packs/Day Years [...] 08/30/2010 11:12 AM To: Neurology Team Pool [facility] ----- Message ----- From: Nola Espino Sent: 08/27/2010 1:52 PM To: Neurology Chiropractic Teacher Pool Patient: Khanh Rene : 1955 Called to schedule an appointment with provider:Dr. Frances No appointments available: with preferred provider.. Date and time requested: caryn Reason for visit: Pt has a pressure sore, and needs a FU appt Phone number for return call: [phone] Monday08/30/10. Khanh Rene will need to [facility] at [phone] to schedule a follow up visit with Dr Frances in her PM&R Clinic. We will call Khanh and inform him of this. Reece Ziegler RN E CQ DEVELOPER documented in this encounter Plan of Treatment Not on filedocumented as of this encounter Visit Diagnoses Not on filedocumented in this encounter Care Teams Ruling Machine Feeder Relationship Specialty Start Date End Date Provider, Outside PCP - General 03/13/09 10/22/18 [place] [address] documented as of this encounter
--- OUTSIDE RECORDS SUMMARY | 2022-07-04 12:50 | XMS_ITS | Encounter Summary ---
:1955 Author Organization [facility] Address [address] [place] [address] Phone Care Team Providers Name Role Phone Pcp, No Primary Care Provider Unavailable Reason for Visit Reason Onset Date Comments Question 02/20/2009 Called with question Encounter Details Date Type Department Care Team Description 02/20/2009 Telephone HFA Physical Medicin e Reece Ziegler, Question (Called with [facility] [address], [address] RN question) [facility] [place] [place] [address] [facility] [phone] [place] [address] Social History Tobacco Use Types Packs/Day Years [...] Created: MonFeb 19, 2009 3:38 PM Regarding: [facility] PMR TELEPHONE MESSAGE Taken by: Natalie Painting , 02/19/2009 3:38 PM Direct to: Problem: questions Pt. Name: Khanh Rene : 1955 (home) Insurance: PCP: No PCP Comment: Expects Return Call at: [phone] Monday02/20/09 at 930am, returned Khanh's phone call, had to leave phone message, Reece Ziegler RN 02/26/09 again returned Khanh's phone call woth no answer. Khanh is scheduled to see Dr Frances on Monday03/13/09 at [facility] PM[facility]R Clinic. I has also given Dr Frances phone message from Khanh on his question on medical supply.Reece Ziegler RN documented in this encounter Plan of Treatment Not on filedocumented as of this encounter Visit Diagnoses Not on filedocumented in this encounter Care Teams Manager Energy Relationship Specialty Start Date End Date Pcp, No PCP - General 01/24/08 03/12/09 [facility] [place] [address] documented as of this encounter
--- OUTSIDE RECORDS SUMMARY | 2022-07-04 12:50 | XMS_ITS | Encounter Summary ---
:1955 Author Organization [facility] Address [address] [place] [address] Phone Care Team Providers Name Role Phone Provider, Outside Primary Care Provider Unavailable Reason for Visit Reason Onset Date Comments Question 09/22/2010 Encounter Details Date Type Department Care Team Description 09/22/2010 Telephone [facility] Neurology Clini c Blanca Marti, NILSA Question [address] [address] [address] [place], [place] [address] Social History Tobacco Use Types Packs/Day Years Used Date Smoking Tobacco: Never Smokeless Tobacco: Never Alcohol Use Standard Drinks/Week Comments Yes 3.3 (1 standard drink = 0.6 oz pure alco hol) once in while Sex Assigned at Date Recorded Not on file documented as of this encounter Miscellaneous Notes Telephone Encounter - Angella Jeerz RN - 09/22/2010 4:49 PM CST Returned [...] discuss concerns with Dr. Loya. He agreed. VETERINARIAN Telephone Encounter - Blanca Marti RN - 09/22/2010 10:35 AM CST Pt calling in with frustrations Saw dr. loya who wants pt to see dr. bernstein again before coming back Dr. bernstein wants pt to be seen in [facility] Paperwork faxed to them and pt will call and schedule Pt having questions regarding his care of his wound after seeing dr. loya- felt his appt was so brief with dr. loya and is unsatisfied and would like to speak with nsg staff in surgery clinic Routed to surg clinic RNs Blanca Marti RN, 09/22/2010 10:35 AM VETERINARIAN documented in this encounter Plan of Treatment Not on filedocumented as of this encounter Visit Diagnoses Not on filedocumented in this encounter Care Teams Hospital Wellness Coordinator Relationship Specialty Start Date End Date Provider, Outside PCP - General 03/13/09 10/22/18 [place] [address] documented as of this encounter
--- OUTSIDE RECORDS SUMMARY | 2022-07-04 12:50 | XMS_ITS | Encounter Summary ---
:1955 Author Organization [facility] Address [address] [place] [address] Phone Care Team Providers Name Role Phone Unavailable Primary Care Provider Unavailable Reason for Visit Reason Comments Follow-up Encounter Details Date Type Department Care Team Description 07/31/2007 Office Visit [facility] Phys Med/Rehab Sameera Frances Q uadriplegia (); Clinic Neurogenic Bowel; [address] [facility] [address] Mail Code [address] [place], [place] [address] [place], [place] [phone] (Wo rk) Social History Tobacco Use Types Packs/Day Years Used Date Smoking Tobacco: Never Alcohol Use Standard Drinks/Week Comments Yes 3.3 (1 standard drink = 0.6 oz pure alco hol) Sex Assigned at Date Recorded Not on file documented as of this encounter Last Filed Vital Signs Vital Sign Reading Time Taken Comments Blood Pressure 91/64 07/31/2007 3:21 PM ASSESSOR Pulse 81 07/31/2007 3:21 PM ASSESSOR Temperature - - Respiratory Rate - - Oxygen Saturation - - Inhaled Oxygen Concentration - - Weight - - Height 6 cm (2.36) 07/31/2007 3:21 PM ASSESSOR Body Mass Index - - documented in this encounter Progress Notes Sameera Frances MD - 08/15/2007 11:05 [place] [address] MEDREC#: [id number] PATIENT: MICHEAL RENE : 1955 DATE: 07/31/2007 PHYSICAL MEDICINE AND REHABILITATION NEUROLOGY CLINIC ADDENDUM: Again, under recommendations, I did talk to him that now he is 49 that he really should have an group social worker who can coordinate his prophylactic care while he ages, in particular heart disease and prostate concerns. He is not interested and would just prefer to treat things as they come up, and declined my offers to arrange him with a Primary Care physician. Sameera Frances MD Staff Physician Physical Medicine and Rehabilitation Service Received in Clinical Application Manager: 08/02/2007 15:01:18 (M: 08/06/2007 11:31:55/dd:st) CLR/dd:st Voice ID: [id number] Document ID: [id number] cc: SSOR Sameera Frances MD - 08/15/2007 11:05 [place] [address] [facility]#: [id number] PATIENT: MICHEAL RNEE : 1955 DATE: 07/31/2007 PHYSICAL MEDICINE AND [...] father and a grandfather. He lives in [place] and just recently he has started to [...] He has just received a new manual [employer]ie wheelchair with a J-cushion and he is [...] he likes because of stability. ASSESSMENT: C7 [employer] (AUDREY) A chronic spinal [...] Physical Medicine and Rehabilitation Service Received in Clinical Application Manager: 08/02/2007 14:58:39 (M: 08/06/2007 11:12:53/dd:st) CLR/dd:st Voice ID: [id number] Document ID: [id number] cc: SSOR Sameera Frances MD - 08/02/2007 3:01 PM CST HPI ROS Physical Exam See my dictation for today. SSOR documented in this encounter Plan of Treatment Not on filedocumented as of this encounter Visit Diagnoses Diagnosis Quadriplegia () Quadriplegia, unspecified Neurogenic bowel Spastic Abnormal involuntary movements documented in this encounter
--- OUTSIDE RECORDS SUMMARY | 2022-07-04 12:50 | XMS_ITS | Encounter Summary ---
:1955 Author Organization [facility] Address [address] [place] [address] Phone Care Team Providers Name Role Phone Pcp, No Primary Care Provider Unavailable Reason for Visit Reason Comments Follow-up neurogenic bladder Encounter Details Date Type Department Care Team Description 01/29/2009 Office Visit [facility] Omar Savage, Neurogenic Bladder [address] [place] [address] (Primary Dx) [address] [place], [place] [address] Social History Tobacco Use Types Packs/Day Years Used Date Smoking Tobacco: Never Alcohol Use Standard Drinks/Week Comments Yes 3.3 (1 standard drink = 0.6 oz pure alco hol) Sex Assigned at Date Recorded Not on file documented as of this encounter Progress Notes Omar Savage MD - 02/02/2009 12:28 PM CDT [facility] [address] [facility], [address] [place] [address] (fax) MEDREC#: [id number] PATIENT: MICHEAL FLETCHER : 1955 DATE: 01/29/2009 [...] pinning. The pinning was performed at the [facility]. His pacemaker was placed at the [facility]. I will request laboratory values from [...] 20 minutes. Omar Savage MD Received in Admissions Nurse: 01/29/2009 18:41:26 (M: 02/02/2009 08:06:12 sharmila) CS/sjv Voice ID: [id number] Document ID: [id number] cc: Omar Savage MD - 01/29/2009 6:41 [...] NOS documented in this encounter Care Teams Surgical Processor Relationship Specialty Start Date End Date Pcp, No PCP - General 01/24/08 03/12/09 [place] [address] documented as of this encounter
--- OUTSIDE RECORDS SUMMARY | 2022-07-04 12:50 | XMS_ITS | Encounter Summary ---
:1955 Author Organization [facility] Address [address] [place] [address] Phone Care Team Providers Name Role Phone [...] on filedocumented in this encounter Care Teams Burn Nurse Relationship Specialty Start Date End Date Provider, Outside PCP - General 03/13/09 10/22/18 [place] [address] documented as of this encounter
--- OUTSIDE RECORDS SUMMARY | 2022-07-04 12:50 | XMS_ITS | Encounter Summary ---
:1955 Author Organization [facility] Address [address] [place], [place] [address]. [place] [address] Phone Care Team Providers Name Role Phone Provider, Outside Primary Care Provider Unavailable Encounter Details Date Type Department Care Team Description 05/13/2010 Hospital Encounter [facility] Ultrasound Omar Savage MD [address] Research Only [address] [place], [place] [address] Social History Tobacco Use Types [...] NOS documented in this encounter Care Teams Melter Clerk Relationship Specialty Start Date End Date Provider, Outside PCP - General 03/13/09 10/22/18 [place] [address] documented as of this encounter
--- OUTSIDE RECORDS SUMMARY | 2022-07-04 12:50 | XMS_ITS | Encounter Summary ---
:1955 Author Organization [facility] Address [address] [place] [address] [place] [address] Phone Care Team Providers Name Role Phone Provider, Outside Primary Care Provider Unavailable Encounter Details Date Type Department Care Team Description 04/07/2010 Telephone [facility]rology Omar Savage MD [address] [facility] Research Only [place], [place] [address] Social History Tobacco Use Types [...] BALL AT 11:30. PLEASE CALL HIM AT [phone] Pt. Name: Khanh Rene : 1955 (home) Insurance: PCP: Outside Provider Comment: Expects Return Call at: documented in this encounter Plan of Treatment Not on filedocumented as of this encounter Visit Diagnoses Not on filedocumented in this encounter Care Teams Agribusiness Internship Relationship Specialty Start Date End Date Provider, Outside PCP - General 03/13/09 10/22/18 [place] [address] documented as of this encounter
--- OUTSIDE RECORDS SUMMARY | 2022-07-04 12:50 | XMS_ITS | Encounter Summary ---
:1955 Author Organization [facility] Address [address] [place] [address] Phone Care Team Providers Name Role Phone Pcp, No Primary Care Provider Unavailable Reason for Visit Reason Onset Date Comments Refill Request 01/28/2008 Encounter Details Date Type Department Care Team Description 01/28/2008 Refill [facility] Urology Omar Savage MD Refill Request [address] [facility] Research [place], [place] [address] Social History Tobacco Use Types [...] filedocumented in this encounter Care Teams Court Orderly Relationship Specialty Start Date End Date Pcp, No PCP - General 01/24/08 03/12/09 [facility] [place] [address] documented as of this encounter
--- OUTSIDE RECORDS SUMMARY | 2022-07-04 12:50 | XMS_ITS | Encounter Summary ---
:1955 Author Organization [facility] Address [address] [place] [address] Phone Care Team Providers Name Role Phone Pcp, No Primary Care Provider Unavailable Reason for Visit Reason Onset Date Comments Durable Medical Equipment 02/17/2009 Question about reordering equipment Check/Request Encounter Details Date Type Department Care Team Description 02/17/2009 Telephone [facility]FA Physical Medicin e Reece Ziegler, Durable Medical [address] [facility] RN Equipment Check/Request M50 [facility] (Question about [place], [place] [address] Clinic reordering equipment) [phone] [place] [address] Social History Tobacco Use Types Packs/Day Years [...] refill of dourdrem?? Spelling? Pharmacy # is [phone] Pt. Name: Khanh Rene : 1955 (home) Insurance: PCP: No PCP Comment: Expects Return Call at: [phone] or cell [phone] Monday02/17/09 Copy of this phone message given to Dr Frances and she will call patient to check on equipment order needed. Reece Ziegler RN documented in this encounter Plan of Treatment Not on filedocumented as of this encounter Visit Diagnoses Not on filedocumented in this encounter Care Teams Rn House Supervisor Relationship Specialty Start Date End Date Pcp, No PCP - General 01/24/08 03/12/09 [facility] [place] [address] documented as of this encounter
--- OUTSIDE RECORDS SUMMARY | 2022-07-04 12:50 | XMS_ITS | Encounter Summary ---
:1955 Author Organization [facility] Address [address] [place] [address] Phone Care Team Providers Name Role Phone Provider, Outside Primary Care Provider Unavailable Encounter Details Date Type Department Care Team Description 09/13/2010 Notes/Trans [facility] ALS [facility] Sameera Frances MD [address] [facility] Professional Mail Code [address] [address] [place] [address] [phone] Social History Tobacco Use Types Packs/Day Years Used Date Smoking Tobacco: Never Alcohol Use Standard Drinks/Week Comments Yes 3.3 (1 standard drink = 0.6 oz pure alco hol) Sex Assigned at Date Recorded Not on file documented as of this encounter Progress Notes Sameera Frances MD - 09/16/2010 12:35 [place] [address] [facility]#: [id number] PATIENT: MICHEAL RENE : 1955 DATE: 09/13/2010 [...] Physical Medicine and Rehabilitation Service Received in Customer Training Specialist: 09/13/2010 15:26 M: 09/14/2010 09:05 [facility] HOMA/srikanth Voice ID: [id number] Document ID: [id number] SORTING SUPERVISOR documented in this encounter Plan of Treatment Not on filedocumented as of this encounter Visit Diagnoses Not on filedocumented in this encounter Care Teams Forest Management Teacher Relationship Specialty Start Date End Date Provider, Outside PCP - General 03/13/09 10/22/18 [place] [address] documented as of this encounter
--- OUTSIDE RECORDS SUMMARY | 2022-07-04 12:50 | XMS_ITS | Encounter Summary ---
:1955 [address] [facility] Address [address] [place] [address] Phone Care Team Providers Name Role Phone Provider, Outside Primary Care Provider Unavailable Reason for Visit Reason Onset Date Comments Refill Request 10/21/2009 Encounter Details Date Type Department Care Team Description 10/21/2009 Refill [facility] Urology Omar Savage MD Refill Request [address] [facility], [address] Research Only [place], [place] [address] Social History Tobacco Use Types [...] NOS documented in this encounter Care Teams Canary Breeder Relationship Specialty Start Date End Date Provider, Outside PCP - General 03/13/09 10/22/18 [place] [address] documented as of this encounter
--- OUTSIDE RECORDS SUMMARY | 2022-07-04 12:50 | XMS_ITS | Encounter Summary ---
:1955 Author Organization [facility] Address [address] [place] [address] Phone Care Team Providers Name Role Phone Provider, Outside Primary Care Provider Unavailable Reason for Visit Reason Comments Follow-up Encounter Details Date Type Department Care Team Description 09/24/2010 Office Visit [facility] Surg DaysiBubba Veronica us ulcer, stage Clinic MD Valery IV () (Primary Dx) [address] [facility] [facility] P5.[address] Mail Code P5 [place], [place] [address] [place], [place] [phone] Social History Tobacco Use Types Packs/Day Years Used Date Smoking Tobacco: Never Smokeless Tobacco: Never Alcohol Use Standard Drinks/Week Comments Yes 3.3 (1 standard drink = 0.6 oz pure alco hol) once in while Sex Assigned at Date Recorded Not on file documented as of this encounter Last Filed Vital Signs Vital Sign Reading Time Taken Comments Blood Pressure 107/73 09/24/2010 10:33 AM ENGINEERING SECRETARY Pulse 87 09/24/2010 10:33 AM ENGINEERING SECRETARY Temperature 36.8 ??C (98.2 ??F) 09/24/2010 10:33 AM ENGINEERING SECRETARY Respiratory Rate - - Oxygen Saturation - [...] of infection, please contact the Surgery clinic [phone]: redness, warmth, swelling, drainage, pain, and/or fever over 100 degrees. NEERING SECRETARY documented in this encounter Progress Notes Mari Odell RN - 09/24/2010 2:45 PM CST Wound care D: Here for wound care. Location: coccyx A: Exam per provider. Wound cleansed with: technicare, H2O and rinsed. Dressing applied: and wet to dry with 1/2 packing and 2x2's with Island dressing. R: Patient tolerated procedure well. P: As ordered by provider. NEERING SECRETARY Syl Yanes MD - 09/24/2010 11:21 AM CST SURGERY CLINIC NOTE -G3 Khanh Rene : 1955 Sex: male Date of Service: 09/17/2010 9:23 AM HPI: Khanh Rene is a 55 y.o. 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 Fracnes for a decubitus ulcer. Pt was seen [...] has received the special cushion from the [facility] which is supposed to relieve pressure from that area. He does have another apptset up with Soumya at the [facility] to complete the mapping to ensure [...] documented. Bubba Tavarez MD, 09/25/2010 9:26 AM NEERING SECRETARY documented in this encounter Plan of Treatment Not on filedocumented as of this encounter Visit Diagnoses Diagnosis Decubitus ulcer, stage IV () - Primary Pressure ulcer, unspecified site documented in this encounter Care Teams Lasting Machine Operator Relationship Specialty Start Date End Date Provider, Outside PCP - General 03/13/09 10/22/18 [place] [address] documented as of this encounter
--- OUTSIDE RECORDS SUMMARY | 2022-07-04 12:50 | XMS_ITS | Encounter Summary ---
:1955 Author Organization [facility] Address [address] [place] [address] Phone Care Team Providers Name Role Phone Unavailable Primary Care Provider Unavailable Encounter Details Date Type Department Care Team Description 09/29/2006 Letters(Tab) [facility] Urology Clinic Omar Savage MD [facility] [address] [facility] [address] [place], [place] [address] Social History Tobacco Use Types Packs/Day Years Used Date Smoking Tobacco: Never Assessed Sex Assigned at Date Recorded Not on file documented as of this encounter Progress Notes Omar Savage MD - 09/29/2006 4:34 PM CST [facility] [address] [place] [address] 09/29/2006 TO: Micheal Rene [address] [place], [place] [address] RE: MICHEAL RENE MR#: [id number] Dear Mr. Rene: From your recent Urology Clinic visit your prostate specific antigen value remains in a normal level and is 2.87. Best wishes and please feel free to contact us for questions. Sincerely, Omar Savage MD Received in Die Casting Machine Maintainer: 09/29/2006 12:33:54 (M: 09/29/2006 13:29:47 kms) CS/kms Voice ID: [id number] Document ID: [id number] cc: Micheal Rene [id number] [facility] [address] AGE WRAPPING MACHINE OPERATOR documented in this encounter Plan of Treatment Not on filedocumented as of this encounter Visit Diagnoses Not on filedocumented in this encounter
--- OUTSIDE RECORDS SUMMARY | 2022-07-04 12:50 | XMS_ITS | Encounter Summary ---
:1955 Author Organization [facility] Address [address] [place] [address] Phone Care Team Providers Name Role Phone Provider, Outside Primary Care Provider Unavailable Reason for Visit Reason Onset Date Comments Supplies 09/20/2010 Encounter Details Date Type Department Care Team Description 09/20/2010 Telephone [facility] [place] [facility] Alka Jade RN Supplies [address] [place] [address] [place], [place] [address] Social History Tobacco Use Types [...] 10:02 AM CST Verified that [facility] pharmacy received fax for supplies on 09/17/10. NG MACHINE OPERATOR Telephone Encounter - Alka Jade [...] 1955 (home) Insurance: PCP: Outside Provider Comment: [facility] [phone] Prescribed supplies Expects Return Call at: home see above NG MACHINE OPERATOR documented in this encounter Plan of Treatment Not on filedocumented as of this encounter Visit Diagnoses Not on filedocumented in this encounter Care Teams Electrician'S Assistant Relationship Specialty Start Date End Date Provider, Outside PCP - General 03/13/09 10/22/18 [place] [address] documented as of this encounter
--- OUTSIDE RECORDS SUMMARY | 2022-07-04 12:50 | XMS_ITS | Encounter Summary ---
:1955 Author Organization [facility] Address [address] [place] [address] Phone Care Team Providers Name Role Phone Provider, Outside Primary Care Provider Unavailable Reason for Referral Consult/Test/Treat (Routine) - Closed Specialty Diagnoses / Procedures Referred By Contact Refer red To Contact Plastic Surgery / Diagnoses Ulcer Sameera Frances, PLASTIC SURGERY MD [address] Mail Code P[address] [place], [place] [address] Referral ID Status Reason Start Date Expiration Date Visits Requ ested Visits Authorized [id number] Closed 09/13/2010 09/13/2011 1 1 ER REGISTRY MANAGER Encounter Details Date Type Department Care Team Description 09/13/2010 Orders Only [facility] Phys Med/Rehab Sameera Frances U lcer () (Primary Clinic MD Dx) [address] Mail Code P[address] [place], [place] [address] [place], [place] [phone] (Wo rk) Social History Tobacco Use Types [...] site documented in this encounter Care Teams Assistant Professor Of Dietetics Relationship Specialty Start Date End Date Provider, Outside PCP - General 03/13/09 10/22/18 [place] [address] documented as of this encounter
--- OUTSIDE RECORDS SUMMARY | 2022-07-04 12:50 | XMS_ITS | Encounter Summary ---
:1955 Author Organization [facility] Address [address] [place] [address] Phone Care Team Providers Name Role Phone Unavailable Primary Care Provider Unavailable Encounter Details Date Type Department Care Team Description 10/22/2007 Abstract [facility]FA Multispecialty Abstract, Provider [address] [place], [place] [address] Social History Tobacco Use Types [...]
--- OUTSIDE RECORDS SUMMARY | 2022-07-04 12:50 | XMS_ITS | Encounter Summary ---
:1955 Author Organization [facility] Address [address] [place] [address] Phone Care Team Providers Name Role Phone Pcp, No Primary Care Provider Unavailable Encounter Details Date Type Department Care Team Description 01/29/2008 Letters(Tab) [facility] U[facility] Omar Savage MD [facility] [address] [place] [address] [address]5.[address] [place], [place] [address] Social History Tobacco Use Types Packs/Day Years Used Date Smoking Tobacco: Never Alcohol Use Standard Drinks/Week Comments Yes 3.3 (1 standard drink = 0.6 oz pure alco hol) Sex Assigned at Date Recorded Not on file documented as of this encounter Progress Notes Omar Savage MD - 01/30/2008 7:23 AM CDT [facility] [address] [place] [address] 01/29/2008 TO: Micheal Rene [address] [place] [address] RE: MICHEAL RENE MR#: [id number] Dear Mr. Rene: From your recent Urology Clinic visit, your laboratory values remain stable. Your serum creatinine remains low because of your low body mass. It is 0.29. Your prostate-specific antigen blood test is 2.38, with normal up to 4. We await your return visit in one year. Best wishes. Sincerely, Omar Savage MD Received in Deaf Teacher: 01/29/2008 16:28:05 (M: 01/30/2008 02:45:25 jlb) CS/golden Voice ID: [id number] Document ID: [id number] cc: Micheal Rene documented in this encounter Plan of Treatment Not on filedocumented as of this encounter Visit Diagnoses Not on filedocumented in this encounter Care Teams Dimensional Engineer Relationship Specialty Start Date End Date Pcp, No PCP - General 01/24/08 03/12/09 [facility] [place] [address] documented as of this encounter
--- OUTSIDE RECORDS SUMMARY | 2022-07-04 12:50 | XMS_ITS | Encounter Summary ---
:1955 Author Organization [facility] Address [address] [place] [address] Phone Care Team Providers Name Role Phone Provider, Outside Primary Care Provider Unavailable Reason for Visit Reason Comments Follow-up Encounter Details Date Type Department Care Team Description 04/01/2010 Office Visit [facility] Urology Omar Savage, Neurogenic bladder; [address] [place] [address] Screening for prostate cancer [address] [place], [place] [address] Social History Tobacco Use Types Packs/Day Years [...] Savage MD - 04/05/2010 1:22 PM CDT [facility] [address] [facility] [place] [address] (fax) [facility]#: [id number] PATIENT: MICHEAL FLETCHER : 1955 DATE: 04/01/2010 [...] MD Staff Physician Surgery Service Received in Music Educator: 04/02/2010 14:55 M: 04/02/2010 22:48 kn CS/kn Voice ID: [id number] Document ID: [id number] Omar Savage MD - 04/02/2010 2:55 PM [...] NOS documented in this encounter Care Teams Aircrewman Relationship Specialty Start Date End Date Provider, Outside PCP - General 03/13/09 10/22/18 [place] [address] documented as of this encounter
--- OUTSIDE RECORDS SUMMARY | 2022-07-04 12:50 | XMS_ITS | Encounter Summary ---
:1955 Author Organization [facility] Address [address] [place] [address] Phone Care Team Providers Name Role Phone Provider, Outside Primary Care Provider Unavailable Reason for Visit Reason Onset Date Comments Call Back 08/30/2010 Encounter Details Date Type Department Care Team Description 08/30/2010 Telephone [facility] Multispecialty Varsha Knight RN Call Back [address], [address] [facility]is[facility]ialty [place], [place] [address] [phone] [place] [address] (Wo rk) Social History Tobacco Use Types Packs/Day Years Used Date Smoking Tobacco: Never Alcohol Use Standard Drinks/Week Comments Yes 3.3 (1 standard drink = 0.6 oz pure alco hol) Sex Assigned at Date Recorded Not on file documented as of this encounter Miscellaneous Notes Telephone Encounter - Varsha Knight RN - 08/30/2010 4:23 PM CHEMICAL STRENGTH TESTER Spoke with patient & let him know that Blanca Ziegler was working on this (see her telephone encounter from earlier today). Pt states he is using Duoderm for this pressure sore but thinks it may need other intervention. Let him know our office would be in touch soon regarding this appt. 08/31/10 830 AM. I called and talked to Khanh ([phone]) he is a Dr Frances Quadriplegia patient and he does have a open sore on his bottom, he did call scheduling at [facility] ([phone])and could not get in to see Dr Frances in her [facility] until September. I informed Khanh that I will route this phone message to Dr Frances plus I will page her to try to talk to her about Khanh. Blanca Ziegler RN ICAL STRENGTH TESTER documented in this encounter Plan of Treatment Not on filedocumented as of this encounter Visit Diagnoses Not on filedocumented in this encounter Care Teams Plant Chief Relationship Specialty Start Date End Date Provider, Outside PCP - General 03/13/09 10/22/18 [place] [address] documented as of this encounter
--- OUTSIDE RECORDS SUMMARY | 2022-07-04 12:50 | XMS_ITS | Encounter Summary ---
:1955 Author Organization [facility] Address [address] [place] [address] Phone Care Team Providers Name Role Phone Provider, Outside Primary Care Provider Unavailable Reason for Visit Reason Onset Date Comments Supplies 09/17/2010 Encounter Details Date Type Department Care Team Description 09/17/2010 Telephone [facility] Surgery Clinic Alka Jade RN Supplies [address] [place] [address] [place], [place] [address] Social History Tobacco Use Types [...] to [facility] Shwetha Martin @ [phone]. Pt was seen today by Dr Tavarez and wet to dry dressing was ordered. Pt has a f/u appt scheduled on 09/24/[address] Tavarez. AL HEALTH COORDINATOR Telephone Encounter - Alka Jade RN - [...] Provider Comment: Expects Return Call at: pt [phone] AL HEALTH COORDINATOR documented in this encounter Plan of Treatment Not on filedocumented as of this encounter Visit Diagnoses Not on filedocumented in this encounter Care Teams Gas Dispatcher Relationship Specialty Start Date End Date Provider, Outside PCP - General 03/13/09 10/22/18 [place] [address] documented as of this encounter
--- OUTSIDE RECORDS SUMMARY | 2022-07-04 12:50 | XMS_ITS | Encounter Summary ---
:1955 Author Organization [facility] Address [address] [facility] [place] [address] Phone Care Team Providers Name Role Phone Provider, Outside Primary Care Provider Unavailable Encounter Details Date Type Department Care Team Description 09/17/2010 Hospital Encounter [facility] Arnold Vora [address] Méndez MD [place], [place] [address] [address] [facility] [phone] [place], [place] [id number] Social History Tobacco Use Types Packs/Day Years [...] () Results for this LAT HIP AM ARMOR RECONNAISSANCE VEHICLE DRIVER procedure are i n the results section. documented in this encounter Results (ABNORMAL) XR PELVIS WITH BOTH LAT HIP (09/17/2010 10:28 AM ARMOR RECONNAISSANCE VEHICLE DRIVER) Anatomical Region Laterality Modality Pelvis Computed Radiography Specimen (Source) Anatomical Collection Method Collection Time Re ceived Time Location / / Volume Laterality 09/17/2010 10:28 AM ARMOR RECONNAISSANCE VEHICLE DRIVER Impressions 09/17/2010 10:35 AM ARMOR RECONNAISSANCE VEHICLE DRIVER Impression: Severe osteoarthritis involving both hips with postsurgical fixation of a left hip fracture. There is no cortical irregularity to suggest osteomyelitis. This however lucency surrounding a fe moral IM nail. Three-phase bone scan may be beneficial to assess for infection surrounding the nail if clinically indicated. Reading Radiologist: Khanh Brunson Narrative 09/17/2010 10:35 AM ARMOR RECONNAISSANCE VEHICLE DRIVER History: Rule out osteo. Comparison: None. Findings [...] unspecified documented in this encounter Care Teams Fudge Candy Maker Relationship Specialty Start Date End Date Provider, Outside PCP - General 03/13/09 10/22/18 [place] [address] documented as of this encounter
--- OUTSIDE RECORDS SUMMARY | 2022-07-04 12:51 | XMS_ITS | Encounter Summary ---
:1955 Author Organization [facility] Address [address] [place] [address] Phone Care Team Providers Name Role Phone Unavailable Primary Care Provider Unavailable Encounter Details Date Type Department Care Team Description 05/15/2003 EWeb History [facility] Sameera Frances MD [address] [facility] [address] [place], [place] [address] Mail Code [address]5 [place] [address] (Wo rk) Social History Tobacco Use Types Packs/Day Years Used Date Smoking Tobacco: Never Assessed Sex Assigned at Date Recorded Not on file documented as of this encounter Plan of Treatment Not on filedocumented as of this encounter Visit Diagnoses Not on filedocumented in this encounter
--- OUTSIDE RECORDS SUMMARY | 2022-07-04 12:51 | XMS_ITS | Encounter Summary ---
:1955 Author Organization [facility] Address [address] [place] [address] Phone Care Team Providers Name Role Phone Unavailable Primary Care Provider Unavailable Encounter Details Date Type Department Care Team Description 08/18/2005 Notes/Trans Unknown, Provider Social History Tobacco Use Types Packs/Day Years Used Date Smoking Tobacco: Never Assessed Sex Assigned at Date Recorded Not on file documented as of this encounter Progress Notes Interface, Tow Car Driver-In - 11/15/2005 1:28 AM CDT [facility] [id number] PATIENT: MICHEAL FLETCHER [address] [facility] : 1955 [place] [address] DATE: 08/18/2005 Page (fax) The patient is [...] KEFLEX, SHELLFISH, AND AUGMENTIN. His primary care stone breaker is Dr. Sameera Frances whom he sees [...] year's time. Omar Savage MD Received in Tow Car Driver: 08/22/2005 18:11:27 (M: 08/24/2005 17:01:36 cb) CS/cb Voice ID: [id number] Document ID: [id number] cc: This document was electronically signed by Omar Savage MD on 08/26/2005 10:47:02. ? documented in this encounter Plan of Treatment Not on filedocumented as of this encounter Visit Diagnoses Not on filedocumented in this encounter
--- OUTSIDE RECORDS SUMMARY | 2022-07-04 12:51 | XMS_ITS | Encounter Summary ---
:1955 Author Organization [facility] Address [address] [place] [address]. [place] [address] Phone Care Team Providers Name Role Phone Unavailable Primary Care Provider Unavailable Encounter Details Date Type Department Care Team Description 10/12/2001 Orders Only [facility] Ultrasound [address] [place], [place] [address] Social History Tobacco Use Types Packs/Day Years Used Date Smoking Tobacco: Never Assessed Sex Assigned at Date Recorded Not on file documented as of this encounter Plan of Treatment Not on filedocumented as of this encounter Procedures Procedure Name Priority Date/Time Associated Diagnosis Comme nts ULT KIDNEYS Routine 10/12/2001 11:22 AM Results for this COMPLETE PROJECT GEOLOGIST procedure are i n the results section. documented in this encounter Results ULT KIDNEY COMPLETE (10/12/2001 11:22 AM PROJECT GEOLOGIST) Anatomical Region Laterality Modality Abdomen Ultrasound Specimen (Source) Anatomical Collection Method Collection Time Re ceived Time Location / / Volume Laterality 10/12/2001 11:22 AM PROJECT GEOLOGIST Impressions 10/15/2001 4:06 PM PROJECT GEOLOGIST : 1. ??NO RENAL STONES IDENTIFIED. 2. ??MILD CORTICAL THINNING BILATERALLY. ??THIS MAY INDICATE MEDICAL RENAL DISEASE. I have personally reviewed the image(s) and initial interpretation, and I agree with the findings. ASI END: RELEASE RESULTS: (Y) END RESULT: IMPRESSION Narrative 10/15/2001 4:06 PM PROJECT GEOLOGIST Final Report EXAM: ?? RENAL US: TANANA KIDNEYS ?- ??10/12/2001 11:22AM SUSPECTED PATHOLOGY: SYMPTOMS [...] the original. Final Report EXAM: RENAL US: TANANA KIDNEYS - 002 11:22AM SUSPECTED PATHOLOGY: SYMPTOMS [...] (Y) END RESULT: IMPRESSION Omar Savaeg MD ULT documented in this encounter Visit Diagnoses Not on filedocumented in this encounter
--- OUTSIDE RECORDS SUMMARY | 2022-07-04 12:51 | XMS_ITS | Encounter Summary ---
:1955 Author Organization [facility] Address [address] [place] [address] Phone Care Team Providers Name Role Phone Unavailable Primary Care Provider Unavailable Encounter Details Date Type Department Care Team Description 05/10/2005 EWeb History [facility] Sameera Frances MD [address] [facility] [address] [place], [place] [address] Mail Code [address] [place] [address] (Wo rk) Social History Tobacco Use Types Packs/Day Years Used Date Smoking Tobacco: Never Assessed Sex Assigned at Date Recorded Not on file documented as of this encounter Plan of Treatment Not on filedocumented as of this encounter Visit Diagnoses Not on filedocumented in this encounter
--- OUTSIDE RECORDS SUMMARY | 2022-07-04 12:51 | XMS_ITS | Encounter Summary ---
:1955 Author Organization [facility] Address [address] [place] [address]. [place] [address] Phone Care Team Providers Name Role Phone Unavailable Primary Care Provider Unavailable Encounter Details Date Type Department Care Team Description 09/02/2005 Orders Only [facility] Ultrasound [address] [place], [place] [address] Social History Tobacco Use Types Packs/Day Years Used Date Smoking Tobacco: Never Assessed Sex Assigned at Date Recorded Not on file documented as of this encounter Plan of Treatment Not on filedocumented as of this encounter Procedures Procedure Name Priority Date/Time Associated Diagnosis Comme nts ULT KIDNEYS Routine 09/02/2005 3:16 PM Results f or this COMPLETE DIP DYER procedure are i n the results section. documented in this encounter Results ULT KIDNEY COMPLETE (09/02/2005 3:16 PM DIP DYER) Anatomical Region Laterality Modality Abdomen Ultrasound Specimen (Source) Anatomical Collection Method Collection Time Re ceived Time Location / / Volume Laterality 09/02/2005 3:16 PM DIP DYER Impressions 09/05/2005 9:17 AM DIP DYER : ??NO FOCAL MASS, STONE, OR HYDRONEPHROSIS IDENTIFIED WITHIN EITHER KIDNEY. I have personally reviewed the image(s) and initial interpretation, and I agree with the findings. . . Read Date: Sep 02 2005 ??4:12P BENEDICT AU M.D. - STAFF RADIOLOGIST FABIOLA AVALOS M.D. - RESIDENT RADIOLOGIST RELEASE RESULTS: (Y) ASI END: END RESULT: DATE DICTATED: () CEO NA: ( ) IMPRESSION Narrative 09/05/2005 9:17 AM DIP DYER FABIOLA AVALOS M.D. - RESIDENT RADIOLOGIST Final Report EXAM: ?? RENAL US: [place]-NA KIDNEYS ?? 04/2006 15:16 HISTORY: ??Neurogenic bladder. [...] RESIDENT RADIOLOGIST Final Report EXAM: RENAL US: [place]ESH-NA KIDNEYS 15:16 HISTORY: Neurogenic bladder. COMPARISON: 10/12/01. [...] ASI END: END RESULT: DATE DICTATED: () CEO NA: ( ) IMPRESSION Omar HUMPHREYT documented in this encounter Visit Diagnoses Not on filedocumented in this encounter
--- OUTSIDE RECORDS SUMMARY | 2022-07-04 12:51 | XMS_ITS | Encounter Summary ---
:1955 Author Organization [facility] Address [address] [place] [address] Phone Care Team Providers Name Role Phone Unavailable Primary Care Provider Unavailable Encounter Details Date Type Department Care Team Description 09/02/2005 Orders Only [facility] [address] [place], [place] [address] Social History Tobacco Use Types Packs/Day Years Used Date Smoking Tobacco: Never Assessed Sex Assigned at Date Recorded Not on file documented as of this encounter Plan of Treatment Not on filedocumented as of this encounter Procedures Procedure Name Priority Date/Time Associated Diagnosis Comme nts ULT KIDNEYS Routine 09/02/2005 3:16 PM Results f or this COMPLETE CUSTOMER RELATIONS COORDINATOR procedure are i n the results section. XR CHEST 2 VIEWS PA Routine 09/02/2005 3:03 PM Re sults for this + LAT* CUSTOMER RELATIONS COORDINATOR procedure are i n the results section. documented in this encounter Results ULT KIDNEY COMPLETE (09/02/2005 3:16 PM CUSTOMER RELATIONS COORDINATOR) Anatomical Region Laterality Modality Abdomen Ultrasound Specimen (Source) Anatomical Collection Method Collection Time Re ceived Time Location / / Volume Laterality 09/02/2005 3:16 PM CUSTOMER RELATIONS COORDINATOR Impressions 09/05/2005 9:17 AM CUSTOMER RELATIONS COORDINATOR : ??NO FOCAL MASS, STONE, OR HYDRONEPHROSIS IDENTIFIED WITHIN EITHER KIDNEY. I have personally reviewed the image(s) and initial interpretation, and I agree with the findings. . . Read Date: Sep 02 2005 ??4:12P BENEDICT AU M.D. - STAFF RADIOLOGIST FABIOLA AVALOS M.D. - RESIDENT RADIOLOGIST RELEASE RESULTS: (Y) ASI END: END RESULT: DATE DICTATED: () BUCKET WASH OPERATOR: ( ) IMPRESSION Narrative 09/05/2005 9:17 AM CUSTOMER RELATIONS COORDINATOR FABIOLA AVALOS M.D. - RESIDENT RADIOLOGIST Final Report EXAM: ?? RENAL US: [place] KIDNEYS ?? 04/2006 15:16 HISTORY: ??Neurogenic bladder. [...] might be different from the original. FABIOLA AVALSO M.D. - RESIDENT RADIOLOGIST Final Report EXAM: RENAL US: [place] KIDNEYS 15:16 HISTORY: Neurogenic bladder. COMPARISON: 10/12/01. [...] ASI END: END RESULT: DATE DICTATED: () BUCKET WASH OPERATOR: ( ) IMPRESSION Omar Savage MD ULT XR CHEST 2 VIEWS PA & LAT (09/02/2005 3:03 PM CUSTOMER RELATIONS COORDINATOR) Anatomical Region Laterality Modality Chest Digital Radiography Specimen (Source) Anatomical Collection Method Collection Time Re ceived Time Location / / Volume Laterality 09/02/2005 3:03 PM CUSTOMER RELATIONS COORDINATOR Impressions 09/02/2005 3:58 PM CUSTOMER RELATIONS COORDINATOR : ??NO ACUTE PULMONARY INFILTRATE. ?? . . Read Date: Sep 02 2005 ??3:34P VIANCA COHEN M.D. - STAFF RADIOLOGIST - RESIDENT RADIOLOGIST RELEASE RESULTS: (Y) ASI END: END RESULT: DATE DICTATED: () BUCKET WASH OPERATOR: ( ) IMPRESSION Narrative 09/02/2005 3:58 PM CUSTOMER RELATIONS COORDINATOR - RESIDENT RADIOLOGIST Final Report EXAM: ?? [...] ASI END: END RESULT: DATE DICTATED: () BUCKET WASH OPERATOR: ( ) IMPRESSION Omar Savage MD X-RAY documented in this encounter Visit Diagnoses Not on filedocumented in this encounter
--- OUTSIDE RECORDS SUMMARY | 2022-07-04 12:51 | XMS_ITS | Encounter Summary ---
:1955 Author Organization [facility] Address [address] [facility] [place] [address] Phone Care Team Providers Name Role Phone Unavailable Primary Care Provider Unavailable Encounter Details Date Type Department Care Team Description 03/04/2003 EWeb History [facility] Surgery Clinic Bbuba Tavarez MD [address] Mail Code [address] [place], [place] [address] [place] [address] [phone] (Wo rk) Social History Tobacco Use Types Packs/Day Years Used Date Smoking Tobacco: Never Assessed Sex Assigned at Date Recorded Not on file documented as of this encounter Plan of Treatment Not on filedocumented as of this encounter Visit Diagnoses Not on filedocumented in this encounter
--- OUTSIDE RECORDS SUMMARY | 2022-07-04 12:51 | XMS_ITS | Encounter Summary ---
:1955 Author Organization [facility] Address [address] [place] [address] Phone Care Team Providers Name Role Phone [...] 08/18/2005 12:00 AM R esults for this ABORIGINAL LIAISON OFFICER procedure are i n the results section. PSA-SCREENING(MT) Routine 08/18/2005 12:00 AM Res ults for this ABORIGINAL LIAISON OFFICER procedure are i n the results section. CREATININE, SERUM Routine 08/18/2005 12:00 AM Res ults for this ABORIGINAL LIAISON OFFICER procedure are i n the results section. documented in this encounter Results PSA-SCREENING(MT) (08/18/2005 12:00 AM ABORIGINAL LIAISON OFFICER) athologist Signature PSA Screen 2.6 0.00 - 4.00 H[facility] LAB NG/ML Specimen (Source) Anatomical Collection Method Collection Time Re ceived Time Location / / Volume Laterality Blood 08/18/2005 08/18/2005 5:07 PM ABORIGINAL LIAISON OFFICER Omar Savage MD LABORATORY Performing Organization Address City/State/ZIP Code Phon e Number HFA LAB BUN (UREA NITROGEN) (08/18/2005 12:00 AM ABORIGINAL LIAISON OFFICER) athologist Signature BUN 9 5 - 25 MG/DL HFA LAB Specimen (Source) Anatomical Collection Method Collection Time Re ceived Time Location / / Volume Laterality Blood 08/18/2005 08/18/2005 5:07 PM ABORIGINAL LIAISON OFFICER Omar Savage MD LABORATORY Performing Organization Address City/State/ZIP Code Phon e Number HFA LAB CREATININE, SERUM (08/18/2005 12:00 AM ABORIGINAL LIAISON OFFICER) P athologist Signature Creatinine <0.5 0.5 - 1.4 HFA LAB MG/DL Comment: REPEATED Specimen (Source) Anatomical Collection Method Collection Time Re ceived Time Location / / Volume Laterality Blood 08/18/2005 08/18/2005 5:07 PM ABORIGINAL LIAISON OFFICER Omar Savage MD LABORATORY Performing Organization Address City/State/ZIP Code Phon e Number HFA LAB documented in this encounter Visit Diagnoses Not on filedocumented in this encounter
--- OUTSIDE RECORDS SUMMARY | 2022-07-04 12:51 | XMS_ITS | Encounter Summary ---
:1955 Author Organization [facility] Address [address] [place] [address] Phone Care Team Providers Name Role Phone Unavailable Primary Care Provider Unavailable Encounter Details Date Type Department Care Team Description 09/02/2005 Letters(Tab) Unknown, Provider Social History Tobacco Use Types Packs/Day Years Used Date Smoking Tobacco: Never Assessed Sex Assigned at Date Recorded Not on file documented as of this encounter Progress Notes Interface, Airworthiness Safety Inspector-In - 11/15/2005 1:36 AM CDT [facility] [address] [facility] [place], [place] [address] September 02, 2005 Mr. Micheal Rene [address] [place] [address] RE: MICHEAL RENE MR#: [id number] Dear Mr. Rene: From your recent Urology Clinic visit, your prostate specific antigen value remains low at 2.6. We will communicate with you once your other screening studies and x-ray studies have been completed. Best wishes. Please feel free to contact me for questions. Sincerely, Omar Savage MD Received in Airworthiness Safety Inspector: 09/02/2005 14:40:28 (M: 09/03/2005 06:57:04 dma) CS/fidelina Voice ID: [id number] Document ID: [id number] cc: This document was electronically signed by Omar Savage MD on 09/06/2005 18:13:45. documented in this encounter Plan of Treatment Not on filedocumented as of this encounter Visit Diagnoses Not on filedocumented in this encounter
--- OUTSIDE RECORDS SUMMARY | 2022-07-04 12:51 | XMS_ITS | Encounter Summary ---
:1955 Author Organization [facility] Address [address] [place] [address] Phone Care Team Providers Name Role Phone Unavailable Primary Care Provider Unavailable Encounter Details Date Type Department Care Team Description 10/12/2001 Orders Only [facility] [address] [place], [place] [address] Social History Tobacco Use Types Packs/Day Years Used Date Smoking Tobacco: Never Assessed Sex Assigned at Date Recorded Not on file documented as of this encounter Plan of Treatment Not on filedocumented as of this encounter Procedures Procedure Name Priority Date/Time Associated Diagnosis Comme nts XR CHEST 2 VIEWS PA Routine 10/12/2001 12:00 PM R esults for this + LAT* PUBLIC HEALTH PROFESSOR procedure are i n the results section. [place] Routine 10/12/2001 11:22 AM Results for this COMPLETE PUBLIC HEALTH PROFESSOR procedure are i n the results section. documented in this encounter Results XR CHEST 2 VIEWS PA & LAT (10/12/2001 12:00 PM PUBLIC HEALTH PROFESSOR) Anatomical Region Laterality Modality Chest Digital Radiography Specimen (Source) Anatomical Collection Method Collection Time Re ceived Time Location / / Volume Laterality 10/12/2001 12:00 PM PUBLIC HEALTH PROFESSOR Impressions 10/14/2001 3:54 PM PUBLIC HEALTH PROFESSOR : 1. ??NO PULMONARY FIBROSIS OR AIR-SPACE INFILTRATE SEEN. 2. ??STABLE RIGHT LOWER LOBE PULMONARY N ODULE, LIKELY CALCIFIED. 3. ??INTERVAL MORE PROMINENT DENSITY OVE R THE MEDIAL ASPECT OF THE RIGHT APEX, OF UNCERTAIN CLINICAL SIGNIFICANCE . ??FURTHER EVALUATION WITH LORDOTIC VIEW MAY BE HELPFUL. ASI END: RELEASE RESULTS: (Y) END RESULT: IMPRESSION Narrative 10/14/2001 3:54 PM PUBLIC HEALTH PROFESSOR Final Report EXAM: ?? CHEST 2 VIEWS [...] X-RAY ULT KIDNEY COMPLETE (10/12/2001 11:22 AM PUBLIC HEALTH PROFESSOR) Anatomical Region Laterality Modality Abdomen Ultrasound Specimen (Source) Anatomical Collection Method Collection Time Re ceived Time Location / / Volume Laterality 10/12/2001 11:22 AM PUBLIC HEALTH PROFESSOR Impressions 10/15/2001 4:06 PM PUBLIC HEALTH PROFESSOR : 1. ??NO RENAL STONES IDENTIFIED. 2. ??MILD CORTICAL THINNING BILATERALLY. ??THIS MAY INDICATE MEDICAL RENAL DISEASE. I have personally reviewed the image(s) and initial interpretation, and I agree with the findings. ASI END: RELEASE RESULTS: (Y) END RESULT: IMPRESSION Narrative 10/15/2001 4:06 PM PUBLIC HEALTH PROFESSOR Final Report EXAM: ?? RENAL US: [place] ?- ??10/12/2001 11:22AM SUSPECTED PATHOLOGY: SYMPTOMS [...] the original. Final Report EXAM: RENAL US: [place] - 002 11:22AM SUSPECTED PATHOLOGY: SYMPTOMS [...]
--- OUTSIDE RECORDS SUMMARY | 2022-07-04 12:51 | XMS_ITS | Encounter Summary ---
:1955 Author Organization [facility] Address [address] [place] [address] Phone Care Team Providers Name Role Phone [...] 09/19/2001 5:05 PM Re sults for this CHEMIST ORGANIC procedure are i n the results section. PSA Routine 09/19/2001 5:05 PM Results f or this DIAGNOSTIC(PROSTATE CHEMIST ORGANIC procedur e are in SPE AG the results section. CREATININE, SERUM Routine 09/19/2001 5:05 PM Resu lts for this CHEMIST ORGANIC procedure are i n the results section. documented in this encounter Results PSA DIAGNOSTIC(PROSTATE SPE AG (09/19/2001 5:05 PM CHEMIST ORGANIC) athologist Signature PSA Diagnostic 0.5 0.00 - 4.00 HFA LAB NG/ML Specimen Anatomical Collection Method Collection Time Receive d Time (Source) Location / / Volume Laterality Blood 09/19/2001 5:05 PM 2 5:26 CHEMIST ORGANIC PM CHEMIST ORGANIC Omar Savage MD LABORATORY Performing Organization Address City/State/ZIP Code Phon e Number HFA LAB BUN (UREA NITROGEN) (09/19/2001 5:05 PM CHEMIST ORGANIC) athologist Signature BUN 13 5 - 25 MG/DL H[facility] LAB Specimen Anatomical Collection Method Collection Time Receive d Time (Source) Location / / Volume Laterality Blood 09/19/2001 5:05 PM 2 5:26 CHEMIST ORGANIC PM CHEMIST ORGANIC Omar Savage MD LABORATORY Performing Organization Address City/State/ZIP Code Phon e Number HFA LAB CREATININE, SERUM (09/19/2001 5:05 PM CHEMIST ORGANIC) P athologist Signature Creatinine 0.5 0.5 - 1.4 HFA LAB MG/DL Specimen Anatomical Collection Method Collection Time Receive d Time (Source) Location / / Volume Laterality Blood 09/19/2001 5:05 PM 2 5:26 CHEMIST ORGANIC PM CHEMIST ORGANIC Omar Savage MD LABORATORY Performing Organization Address City/State/ZIP Code Phon e Number HFA LAB documented in this encounter Visit Diagnoses Not on filedocumented in this encounter
--- OUTSIDE RECORDS SUMMARY | 2022-07-04 12:51 | XMS_ITS | Encounter Summary ---
:1955 Author Organization [facility] Address [address] [place] [address] Phone Care Team Providers Name Role Phone Unavailable Primary Care Provider Unavailable Encounter Details Date Type Department Care Team Description 05/10/2005 Notes/Trans Unknown, Provider Social History Tobacco Use Types Packs/Day Years Used Date Smoking Tobacco: Never Assessed Sex Assigned at Date Recorded Not on file documented as of this encounter Progress Notes Interface, Crime Scene Photographer-In - 11/15/2005 12:30 AM CDT [facility] MEDREC#: [id number] [place] [address] PATIENT: MICHEAL FLETCHER : 1955 NARRATIVE NOTES [...] a father and a grandfather living in [place]. REVIEW OF SYSTEMS: A total of ten [...] depression. Equipment - he has a new TriVascularie wheelchair and a J cushion with extra [...] Physical Medicine and Rehabilitation Service Received in Crime Scene Photographer: 05/10/2005 17:00:07 (M: 05/12/2005 12:51:56/[facility]) [facility]/cme Voice ID: [id number] Document ID: [id number] cc: This document was electronically signed by Sameera Frances MD on 06/07/2005 14:43:43. documented in this encounter Plan of Treatment Not on filedocumented as of this encounter Visit Diagnoses Not on filedocumented in this encounter
--- OUTSIDE RECORDS SUMMARY | 2022-07-04 12:52 | XMS_ITS | Encounter Summary ---
:1955 Author Organization [facility] Address [address] [place] [phone] Phone Care Team Providers Name Role Phone [...]
--- OUTSIDE RECORDS SUMMARY | 2022-07-04 12:52 | XMS_ITS ---
:1955 Author Care Team Providers Name Role Phone CHETNA MERAZ MD Primary Care Provider [phone] ANN MCLAININA Ballast Regulator Operator [phone] Allergies Code Code System Name Reaction Severity [...] MOUTH ONCE A DAY FOR 10 DAYS nldcdvsa-iwqqkwpex-pubyuqjoo 3.5 mg-10,000 unit/mL-1 % ear d rops,susp [...] Name Performed by ? 09/27/2021 US, Kidney [facility] Radiology Department [address] [place] [address] (Work Place) Results Lab Results Date Name Specimen Result Interpretation Description Value Range Status Address ? 05/06/2021 Culture, BLDV ABNORMAL Final Report microbiology ? Final [place] Urine results Urology [facility] Lab: [address] [facility] [address], [place] 05/06/2021 Urinalysis ? No ? ? ? , Dipstick observation recorded. 02/18/2021 Culture, UR ABNORMAL Final Report microbiology ? Final [place] Urine results [facility]rology - [place] Lab: [address], [place] ? Urinalysis ? Color-Status Yellow ? ? [...] ? ? ? Sp 1.015 ? ? [place]-Statu s ? ? ? Nitrates-Sta positive ? ? tus ? ? ? Blood-Status Trace ? Leuko-Status Large ? ? Past Encounters Encounter Date Diagnosis Provider 09/27/2021 Neurogenic Bladder; Spinal Cord Jono Pagan MD: [address] Injury; Spasm of Bladder; Recurrent [address], [place], [place] Urinary Tract Infection [phone], Ph. 05/06/2021 Abnormal Urine Jono Pagan MD: [address], [place] [address], Ph. [phone] 02/18/2021 Neurogenic Bladder; Spinal Cord Jono Pagan MD: [address] Injury; Spasm of Bladder; Recurrent [address], [place], [place] Urinary Tract Infection; Acute [phone], Ph. Urinary Tract Infection Social History [...]
--- OUTSIDE RECORDS SUMMARY | 2022-07-04 12:52 | XMS_ITS | Encounter Summary ---
:1955 Author Organization [facility] Address [address] [place] [address] Phone Care Team Providers Name Role Phone Unavailable Primary Care Provider Unavailable Encounter Details Date Type Department Care Team Description 07/03/1995 Orders Only [facility] X[facility] [address] [place], [place] [address] Social History Tobacco Use Types Packs/Day Years Used Date Smoking Tobacco: Never Assessed Sex Assigned at Date Recorded Not on file documented as of this encounter Plan of Treatment Not on filedocumented as of this encounter Procedures Procedure Name Priority Date/Time Associated Diagnosis Comme nts XR SACRUM AP & LAT Routine 07/03/1995 2:10 PM Res ults for this DRILL DOCTOR procedure are i n the results section. XR COCCYX AP & LAT Routine 07/03/1995 2:10 PM Res ults for this DRILL DOCTOR procedure are i n the results section. documented in this encounter Results XR COCCYX AP & LAT (07/03/1995 2:10 PM DRILL DOCTOR) Anatomical Region Laterality Modality Lumbar Spine Computed Radiography Specimen (Source) Anatomical Collection Method Collection Time Re ceived Time Location / / Volume Laterality 07/03/1995 2:10 PM DRILL DOCTOR Impressions 07/05/1995 12:33 PM DRILL DOCTOR : ??Please see Sacrum report dated 07/03/95 1410. ASI END: RELEASE RESULTS: (Y) END RESULT: IMPRESSION Narrative 07/05/1995 12:33 PM DRILL DOCTOR Final Report EXAM: ?? COCCYX AP & [...] SACRUM AP & LAT (07/03/1995 2:10 PM DRILL DOCTOR) Anatomical Region Laterality Modality Lumbar Spine Computed Radiography Specimen (Source) Anatomical Collection Method Collection Time Re ceived Time Location / / Volume Laterality 07/03/1995 2:10 PM DRILL DOCTOR Impressions 07/05/1995 12:33 PM DRILL DOCTOR : ??Evidence of bone loss or destruction [...] END RESULT: IMPRESSION Narrative 07/05/1995 12:33 PM DRILL DOCTOR Final Report EXAM: ?? SACRUM AP & [...]
--- OUTSIDE RECORDS SUMMARY | 2022-07-04 12:52 | XMS_ITS | Encounter Summary ---
:[address] [facility] Address [address] [place], [place] [address] [address] Phone Care Team Providers Name Role Phone Unavailable Primary Care Provider Unavailable Encounter Details Date Type Department Care Team Description 04/03/1997 Orders Only [facility] [place] [place] Ultrasound [address] [place], [place] [address] Social History Tobacco Use Types Packs/Day Years [...] CDT Final Report EXAM: ?? RENAL US: [place] ?- ??04/03/1997 01:10PM ?? EXAM: ??RENAL [...] - 03/10/2006 Final Report EXAM: RENAL US: [place] - 997 01:10PM EXAM: RENAL ULTRASOUND [...]
--- OUTSIDE RECORDS SUMMARY | 2022-07-04 12:52 | XMS_ITS | Clinical Summary ---
:1955 Author Organization [employer] [facility] [place] [address] Care Team Providers Name Role Phone Ana Mayers Unavailable Alex Mata MD Primary Care Provider [phone] Allergies Active Allergy Reactions Severity Noted Date Comments Blood-Group Specific Other - Describe In 04/19/2021 Patient has eLvi saucedo Substance Comment Field (Fya) antibody . Blood products may be delayed. Dra renee patient 24 hour s prior to transfusion. Fo r MCTX Properties testing, draw o ne red top and [...] Encounters Date Type Specialty Care Team Description 06/29/2022 Lab Requisition Alex Mata MD 06/22/2022 Lab Requisition Alex Mata MD 06/15/2022 [...] Packs/Day Years Used Date Smoking Tobacco: Former Cigars Quit : 12/24/1998 Smokeless Tobacco: Never Tobacco Cessation: Counseling Given: Yes Comments: occ [...] more drinks on one Never 12/11/2018 occasion? Sex Assigned at Date Recorded Not on [...] 08/24/2022 Office Visit Dariel Modi MD [address] [place] [address] [place] [address] [phone] (Wo rk) Health Maintenance Due [...] 12/26/2008, 09/01/2006 Medical Devices Implanted Type Area Supervisor [place] Device Shelf Model / Identifier Expiration Serial / Date Lot Standard Pacemaker-12/21/2012 Standard Medtronic [id number] / Implanted: 12/21/2012 by Judson Jenkins MD (Quantity not on file) Pacemaker [id number] / Procedures Procedure Name Priority Date/Time Associated Diagnosis Comme nts CBC WITH AUTO Routine 06/29/2022 11:50 Osteomyelitis of Result s for this DIFFERENTIAL AM DISABILITY INSURANCE HEARING OFFICER vertebra, sacral and procedu re are in sacrococcygeal region the re sults (HC) section. Pressure ulcer of right buttock, stage 4 (HC) CREATININE Routine 06/29/2022 11:50 Osteomyelitis of Results for this AM DISABILITY INSURANCE HEARING OFFICER vertebra, sacral and procedu re are in sacrococcygeal region the re sults (HC) section. Pressure ulcer of right buttock, stage 4 (HC) C-REACTIVE PROTEIN Routine 06/29/2022 11:50 Osteomyelitis of R esults for this AM DISABILITY INSURANCE HEARING OFFICER vertebra, sacral and procedu re are in sacrococcygeal region the re sults (HC) section. Pressure ulcer of right buttock, stage 4 (HC) BUN Routine 06/29/2022 11:50 Osteomyelitis of Results for this AM DISABILITY INSURANCE HEARING OFFICER vertebra, sacral and procedu re are in sacrococcygeal region the re sults (HC) section. Pressure ulcer of right buttock, stage 4 (HC) AST (SGOT) Routine 06/29/2022 11:50 Osteomyelitis of Results for this AM DISABILITY INSURANCE HEARING OFFICER vertebra, sacral and procedu re are in sacrococcygeal region the re sults (HC) section. Pressure ulcer of right buttock, stage 4 (HC) SEDIMENTATION RATE Routine 06/29/2022 11:50 Osteomyelitis of R esults for this AM DISABILITY INSURANCE HEARING OFFICER vertebra, sacral and procedu re are in sacrococcygeal region the re sults (HC) section. Pressure ulcer of right buttock, stage 4 (HC) CBC WITH AUTO Routine 06/29/2022 11:50 Osteomyelitis of Result s for this DIFFERENTIAL AM DISABILITY INSURANCE HEARING OFFICER vertebra, sacral and procedu re are in sacrococcygeal region the re sults (HC) section. Pressure ulcer of right buttock, stage 4 (HC) CBC WITH AUTO Routine 06/22/2022 12:15 Osteomyelitis of Result s for this DIFFERENTIAL PM DISABILITY INSURANCE HEARING OFFICER vertebra, sacral and procedu re are in sacrococcygeal region the re sults (HC) section. Pressure ulcer of right buttock, stage 4 (HC) CREATININE Routine 06/22/2022 12:15 Osteomyelitis of Results for this PM DISABILITY INSURANCE HEARING OFFICER vertebra, sacral and procedu re are in sacrococcygeal region the re sults (HC) section. Pressure ulcer of right buttock, stage 4 (HC) C-REACTIVE PROTEIN Routine 06/22/2022 12:15 Osteomyelitis of R esults for this PM DISABILITY INSURANCE HEARING OFFICER vertebra, sacral and procedu re are in sacrococcygeal region the re sults (HC) section. Pressure ulcer of right buttock, stage 4 (HC) BUN Routine 06/22/2022 12:15 Osteomyelitis of Results for this PM DISABILITY INSURANCE HEARING OFFICER vertebra, sacral and procedu re are in sacrococcygeal region the re sults (HC) section. Pressure ulcer of right buttock, stage 4 (HC) AST (SGOT) Routine 06/22/2022 12:15 Osteomyelitis of Results for this PM DISABILITY INSURANCE HEARING OFFICER vertebra, sacral and procedu re are in sacrococcygeal region the re sults (HC) section. Pressure ulcer of right buttock, stage 4 (HC) SEDIMENTATION RATE Routine 06/22/2022 12:15 Osteomyelitis of R esults for this PM DISABILITY INSURANCE HEARING OFFICER vertebra, sacral and procedu re are in sacrococcygeal region the re sults (HC) section. Pressure ulcer of right buttock, stage 4 (HC) CBC WITH AUTO Routine 06/22/2022 12:15 Osteomyelitis of Result s for this DIFFERENTIAL PM DISABILITY INSURANCE HEARING OFFICER vertebra, sacral and procedu re are in sacrococcygeal region the re sults (HC) section. Pressure ulcer of right buttock, stage 4 (HC) CBC WITH AUTO Routine 06/15/2022 1:20 Osteomyelitis of Results for this DIFFERENTIAL PM DISABILITY INSURANCE HEARING OFFICER vertebra, sacral and procedu re are in sacrococcygeal region the re sults (HC) section. Pressure ulcer of right buttock, stage 4 (HC) CREATININE Routine 06/15/2022 1:20 Osteomyelitis of Results for this PM DISABILITY INSURANCE HEARING OFFICER vertebra, sacral and procedu re are in sacrococcygeal region the re sults (HC) section. Pressure ulcer of right buttock, stage 4 (HC) C-REACTIVE PROTEIN Routine 06/15/2022 1:20 Osteomyelitis of Re sults for this PM DISABILITY INSURANCE HEARING OFFICER vertebra, sacral and procedu re are in sacrococcygeal region the re sults (HC) section. Pressure ulcer of right buttock, stage 4 (HC) BUN Routine 06/15/2022 1:20 Osteomyelitis of Results for this PM DISABILITY INSURANCE HEARING OFFICER vertebra, sacral and procedu re are in sacrococcygeal region the re sults (HC) section. Pressure ulcer of right buttock, stage 4 (HC) AST (SGOT) Routine 06/15/2022 1:20 Osteomyelitis of Results for this PM DISABILITY INSURANCE HEARING OFFICER vertebra, sacral and procedu re are in sacrococcygeal region the re sults (HC) section. Pressure ulcer of right buttock, stage 4 (HC) SEDIMENTATION RATE Routine 06/15/2022 1:20 Osteomyelitis of Re sults for this PM DISABILITY INSURANCE HEARING OFFICER vertebra, sacral and procedu re are in sacrococcygeal region the re sults (HC) section. Pressure ulcer of right buttock, stage 4 (HC) CBC WITH AUTO Routine 06/15/2022 1:20 Osteomyelitis of Results for this DIFFERENTIAL PM DISABILITY INSURANCE HEARING OFFICER vertebra, sacral and procedu re are in sacrococcygeal region the re sults (HC) section. Pressure ulcer of right buttock, stage 4 (HC) CBC WITH AUTO Routine 06/08/2022 12:00 Results fo r this DIFFERENTIAL PM DISABILITY INSURANCE HEARING OFFICER procedure are i n the results section. CREATININE Routine 06/08/2022 12:00 Results for this PM DISABILITY INSURANCE HEARING OFFICER procedure are i n the results section. C-REACTIVE PROTEIN Routine 06/08/2022 12:00 Resul ts for this PM DISABILITY INSURANCE HEARING OFFICER procedure are i n the results section. BUN Routine 06/08/2022 12:00 Results for this PM DISABILITY INSURANCE HEARING OFFICER procedure are i n the results section. AST (SGOT) Routine 06/08/2022 12:00 Results for this PM DISABILITY INSURANCE HEARING OFFICER procedure are i n the results section. SEDIMENTATION RATE Routine 06/08/2022 12:00 Resul ts for this PM DISABILITY INSURANCE HEARING OFFICER procedure are i n the results section. CBC WITH AUTO Routine 06/08/2022 12:00 Results fo r this DIFFERENTIAL PM DISABILITY INSURANCE HEARING OFFICER procedure are i n the results section. SEDIMENTATION RATE Routine 06/01/2022 1:15 Osteomyelitis of Re sults for this PM DISABILITY INSURANCE HEARING OFFICER vertebra, sacral and procedu re are in sacrococcygeal region the re sults (HC) section. Pressure ulcer of right buttock, stage 4 (HC) CBC WITH AUTO Routine 06/01/2022 1:15 Osteomyelitis of Results for this DIFFERENTIAL PM DISABILITY INSURANCE HEARING OFFICER vertebra, sacral and procedu re are in sacrococcygeal region the re sults (HC) section. Pressure ulcer of right buttock, stage 4 (HC) CREATININE Routine 06/01/2022 1:15 Osteomyelitis of Results for this PM DISABILITY INSURANCE HEARING OFFICER vertebra, sacral and procedu re are in sacrococcygeal region the re sults (HC) section. Pressure ulcer of right buttock, stage 4 (HC) C-REACTIVE PROTEIN Routine 06/01/2022 1:15 Osteomyelitis of Re sults for this PM DISABILITY INSURANCE HEARING OFFICER vertebra, sacral and procedu re are in sacrococcygeal region the re sults (HC) section. Pressure ulcer of right buttock, stage 4 (HC) BUN Routine 06/01/2022 1:15 Osteomyelitis of Results for this PM DISABILITY INSURANCE HEARING OFFICER vertebra, sacral and procedu re are in sacrococcygeal region the re sults (HC) section. Pressure ulcer of right buttock, stage 4 (HC) AST (SGOT) Routine 06/01/2022 1:15 Osteomyelitis of Results for this PM DISABILITY INSURANCE HEARING OFFICER vertebra, sacral and procedu re are in sacrococcygeal region the re sults (HC) section. Pressure ulcer of right buttock, stage 4 (HC) CBC WITH AUTO Routine 06/01/2022 1:15 Osteomyelitis of Results for this DIFFERENTIAL PM DISABILITY INSURANCE HEARING OFFICER vertebra, sacral and procedu re are in [...] Last 3 Months Results (ABNORMAL) SEDIMENTATION RATE (06/29/2022 11:50 AM DISABILITY INSURANCE HEARING OFFICER)Only the most recent of6 resultswithin the time period is included. [facility] Method Time Signature SEDIMENTATION RATE 62 (H) <20 mm/hr 06/29/2022 [place] 12:34 PM [facility] Specimen Anatomical Collection Method Collection Time Receive d Time (Source) Location / / Volume Laterality Blood BLOOD SPECIMEN / Client Collect / 06/29/2022 11:50 01/2022 Unknown Unknown AM DISABILITY INSURANCE HEARING OFFICER 12:26 PM DISABILITY INSURANCE HEARING OFFICER Alex Mata MD HEMATOLOGY Performing Organization Address City/State/ZIP Code Phon e Number [facility] [address] [place] [address] (ABNORMAL) CBC WITH AUTO DIFFERENTIAL (06/29/2022 11:50 AM DISABILITY INSURANCE HEARING OFFICER)Only the most recent of6 resultswithin the time period is included. [facility] Method Time Signature WHITE BLOOD 5.1 4.5 - 06/29/2022 [place] COUNT 11.0 12:32 PM [facility] thou/cu LABORATORY mm RED BLOOD COUNT 3.28 (L) 4.30 - 06/29/2022 [place] 5.90 12:32 PM [facility] mil/cu mm LABORATORY HEMOGLOBIN 9.4 (L) 13.5 - 06/29/2022 [place] 17.5 g/dL 12:32 PM [facility] HEMATOCRIT 30.5 (L) 37.0 - [facility] 53.0 % 12:32 PM [facility] MCV 93 80 - 100 06/29/2022 [place] fL 12:32 PM [facility] MCH 28.7 26.0 - 06/29/2022 [place] 34.0 pg 12:32 PM [facility] MCHC 30.8 (L) 32.0 - 06/29/2022 [place] 36.0 g/dL 12:32 PM [facility] RDW 14.0 11.5 - 06/29/2022 [place] 15.5 % 12:32 PM [facility] PLATELET COUNT 317 140 - 440 06/29/2022 [place] thou/cu 12:32 PM [facility] mm LABORATORY MPV 7.7 6.5 - 06/29/2022 [place] 11.0 fL 12:32 PM [facility] % NEUT 57.3 % 06/29/2022 [place] 12:32 PM [facility] % LYMPH 23.1 % 06/29/2022 [place] 12:32 PM [facility] % MONO 10.0 % 06/29/2022 [place] 12:32 PM [facility] % EOS 9.0 % 06/29/2022 [place] 12:32 PM [facility] % BASO 0.6 % 06/29/2022 [place] 12:32 PM [facility] ABSOLUTE 2.9 1.7 - 7.0 06/29/2022 [place] NEUTROPHILS thou/cu 12:32 PM [facility] mm LABORATORY ABSOLUTE 1.2 0.9 - 2.9 06/29/2022 [place] LYMPHOCYTES thou/cu 12:32 PM [facility] mm LABORATORY ABSOLUTE 0.5 <0.9 06/29/2022 [place] MONOCYTES thou/cu 12:32 PM [facility] mm LABORATORY ABSOLUTE 0.5 (H) <0.5 06/29/2022 [place] EOSINOPHILS thou/cu 12:32 PM [facility] mm LABORATORY ABSOLUTE 0.0 <0.3 06/29/2022 [place] BASOPHILS thou/cu 12:32 PM [facility] mm LABORATORY Specimen Anatomical Collection Method Collection Time Receive d Time (Source) Location / / Volume Laterality Blood BLOOD SPECIMEN / Client Collect / 06/29/2022 11:50 01/2022 Unknown Unknown AM DISABILITY INSURANCE HEARING OFFICER 12:26 PM DISABILITY INSURANCE HEARING OFFICER Alex Mata MD HEMATOLOGY Performing Organization Address City/[facility] Code Phon e Number [facility] [address] [place] [address] BUN (06/29/2022 11:50 AM DISABILITY INSURANCE HEARING OFFICER)Only the most recent of6 resultswithin the time period is included. athologist Signature BUN 15 8 - 25 06/29/2022 [place] mg/dL 12:44 PM [facility] Specimen Anatomical Collection Method Collection Time Receive d Time (Source) Location / / Volume Laterality Blood BLOOD SPECIMEN / Client Collect / 06/29/2022 11:50 01/2022 Unknown Unknown AM DISABILITY INSURANCE HEARING OFFICER 12:26 PM DISABILITY INSURANCE HEARING OFFICER Alex Mata MD CHEMISTRY Performing Organization Address [facility] Phon e Number [facility] [address] [place] [address] (ABNORMAL) CREATININE (06/29/2022 11:50 AM DISABILITY INSURANCE HEARING OFFICER)Only the most recent of6 results within the time period is included. athologist Signature CREATININE 0.48 (L) 0.72 - 06/29/2022 [place] 1.25 mg/dL 12:44 PM [facility] eGFR >90 >90 06/29/2022 [place] mL/min/1.7 12:44 PM [facility] 3m2 LABORATORY Comment: As of 2021, [...] Blood BLOOD SPECIMEN / Client Collect / 06/29/2022 11:50 01/2022 Unknown Unknown AM DISABILITY INSURANCE HEARING OFFICER 12:26 PM DISABILITY INSURANCE HEARING OFFICER Alex Mata MD CHEMISTRY Performing Organization Address City/[facility] Code Phon e Number [facility] [address] [place] [address] (ABNORMAL) C-REACTIVE PROTEIN (06/29/2022 11:50 AM DISABILITY INSURANCE HEARING OFFICER)Only the most recent of6 resultswithin the time period is included. Analysis Performed At Patho logist Time Signature C-REACTIVE 4.22 (H) <0.50 06/29/2022 [place] PROTEIN mg/dL 12:43 PM [facility] Specimen Anatomical Collection Method Collection Time Receive d Time (Source) Location / / Volume Laterality Blood BLOOD SPECIMEN / Client Collect / 06/29/2022 11:50 01/2022 Unknown Unknown AM DISABILITY INSURANCE HEARING OFFICER 12:26 PM DISABILITY INSURANCE HEARING OFFICER Alex Mata MD CHEMISTRY Performing Organization Address City/[facility] Code Phon e Number [facility] [address] [place] [address] AST (SGOT) (06/29/2022 11:50 AM DISABILITY INSURANCE HEARING OFFICER)Only the most recent of6 resultswithin the time period is included. P athologist Signature AST (SGOT) 15 2 - 40 IU/L 06/29/2022 [place] 12:45 PM [facility] Specimen Anatomical Collection Method Collection Time Receive d Time (Source) Location / / Volume Laterality Blood BLOOD SPECIMEN / Client Collect / 06/29/2022 11:50 01/2022 Unknown Unknown AM DISABILITY INSURANCE HEARING OFFICER 12:26 PM DISABILITY INSURANCE HEARING OFFICER Alex Mata MD CHEMISTRY Performing Organization Address City/[facility] Code Phon [facility] [address] [place] [address] EXTRA TUBE RED (05/25/2022 2:07 PM CDT) Specimen Anatomical Collection Method Collection Time Receive d Time (Source) Location / / Volume Laterality Blood BLOOD SPECIMEN / Client Collect / 05/25/2022 2:07 PM 1 07/25/2021 2:49 Unknown Unknown CDT PM CDT Alex Mata MD LABORATORY Performing Organization Address City/[facility]/ZIP Code Phon e [facility]ORATORY [address] [place] [id number] EXTRA TUBE LIGHT GREEN (05/25/2022 2:07 PM CDT) Specimen Anatomical Collection Method Collection Time Receive d Time (Source) Location / / Volume Laterality Blood BLOOD SPECIMEN / Client Collect / 05/25/2022 2:07 PM 1 07/25/2021 2:49 Unknown Unknown CDT PM CDT Alex Mata MD LABORATORY Performing Organization Address City/[facility]/ZIP Code Phon e Number [facility] [address] [place] [address] EXTRA TUBE LAVENDER (05/25/2022 2:07 PM CDT) Specimen Anatomical Collection Method Collection Time Receive d Time (Source) Location / / Volume Laterality Blood BLOOD SPECIMEN / Client Collect / 05/25/2022 2:07 PM 1 07/25/2021 2:49 Unknown Unknown CDT PM CDT Alex Mata MD LABORATORY Performing Organization Address City/[facility]/ZIP Code Phon e Number [facility] [address] [place] [address] LAB TRACKING EVENT (05/18/2022 4:15 PM CDT) Specimen Anatomical Collection Method Collection Time Receive d Time (Source) Location / / Volume Laterality Other (Other) Client Collect / 05/18/2022 4:15 PM 04/24 5:18 Unknown CDT PM CDT Jimena Fleming MD LAB BILL ONLY Performing Organization Address City/[facility]/ZIP Code Phon e Number [employer] [address] [place] [address] LABORATORY-CENTRAL 2000 LABORATORY PATH TISSUE EXAM (05/17/2022 4:15 PM CDT) Component Value Ref Test Analysis Performed At [facility] Range Method Time Signature Case Report Pathology Report ?Case: [id number] ? 05/20/2022 KATHLEEN Authorizing Provider: ??Jimena Higgins MD ?Collected: ? 05/17/2022 1615 ? 11:49 AM HEALTH Ordering Location: ? [facility] CENTRAL LAB ?Received: ?05/18/2022 1847 ? CDT LA BORZ[facility]-C Pathologist: ? Sweetie Daily MD ? ENTRAL Specimen: ?Bone Biopsy, ISCHIUM ? LABORATORY Final A) BONE, ISCHIUM, BIOPSY: 05/20/2022 [facility] Electronically Diagnosis 1. Segment of bone with necr osis, acute osteomyelitis, and chronic osteomyelitis 11:49 AM [facility] signed by Abimbola, 2. No evidence of malignancy CDT L ABORATORY-C MD Sweetie on ENTRAL 05/20/2022 at LABORATORY 11:49 AM Comment A) The 05/20/2022 [facility] interpretation of 11:49 [facility] these results is CDT LABORATORY-C based in part on ENTRAL the LABORATORY decalcification procedure performed. Clinical Osteomyelitis 05/20/2022 [facility] Information 11:49 [facility] CDT LABORATORY-C ENTRAL LABORATORY Gross A) Received in formalin, lab eled with the patient's name and ischial bone, is an aggregate of youngblood-pink cancellous bone fragments, measuring 1.2 x 0.2 x 1.0 cm in aggregate. ??Specimen is submitted entirely in 1 cassette after decalcification. 05/20/2022 [facility] Description 11:49 AM [facility] JAL 05/18/2022 CDT LABORATORY-C ENTRAL LABORATORY Microscopic The final diagnosis is based on microscopic examination of appropriate sections of all specimens. 05/20/2022 [facility] Description 11:49 [facility] CDT LABORATORY-C ENTRAL LABORATORY Additional 05/20/2022 [facility] Information Interpreted at [facility], Central Laboratory - [address], [place] [address] 11:49 AM HEALTH CDT LABORATORY-C ENTRAL LABORATORY Specimen Anatomical Collection Method Collection Time Receive d Time (Source) Location / / Volume Laterality Other (Bone 05/17/2022 4:15 PM 6:47 Biopsy) CDT PM CDT Jimena Fleming MD PATHOLOGY/CYTOLOGY Performing Organization Address [facility] Phon e Number [facility] [address] [place] [address] LABORATORY-CENTRAL 1999 LABORATORY (ABNORMAL) REFERRAL ID/SUSC,NONURINE (05/16/2022 9:56 PM CDT) [facility] Method Time Signature CULTURE RESULT (A) 05/21/2022 [facility] [employer] 11:43 AM CDT LABORATORY-CE NTRAL LABORATORY CULTURE Streptococcus 05/21/2022 [facility] [employer] anginosus 11:43 AM CDT LABORATORY-CE NTRAL LABORATORY [...] Yamile Conway NP MICROBIOLOGY Performing Organization Address City/[facility] Phon e Number S B [facility] [employer] [address] [place] [address] LABORATORY-CENTRAL 2000 LABORATORY (ABNORMAL) REFERRAL ID ONLY,NONURINE (05/16/2022 9:00 AM CDT) [facility] Method Time Signature CULTURE RESULT (A) 05/19/2022 [facility] [employer] 3:00 PM CDT LABORATORY-CE NTRAL LABORATORY CULTURE Streptococcus 05/19/2022 [facility] [employer] anginosus 3:00 PM CDT LABORATORY-CE NTRAL LABORATORY Specimen Anatomical Collection Method Collection Time Receive d Time (Source) Location / / Volume Laterality Other SPECIMEN FROM Client Collect / 05/16/2022 9:00 AM 04/24 WOUND / Unknown Unknown CDT 10:38 PM CDT Yamile Conway NP MICROBIOLOGY Performing Organization Address City/State/ZIP Code Phon e Number [facility]ATHLEEN [facility]ORDILL[facility] [address] [place] [address] LABORATORY-CENTRAL 2000 LABORATORY from Last 3 Months [...] months since positive culture): resides in acute/intermediate manager care, receiving hemodialysis, has chronic open wounds/skin damage, has long-te rm percutaneous indwelling medical devic es Exclusions for nares collection (if <12 months since positive culture) include all of the previous exclusions plus patients on antibiotics 7 days prior to collection Insurance Payer Benefit Plan / Subscriber ID Effective Dates Phone Addre ss Type Group WC WORKERS [employer] [facility] [id number] 1989-Prese C/O [employer] [address] [place] [address] WC WORKERS [employer] [facility] [id number] 1989-Prese C/O [employer] [address] [place] [address] MEDICARE PART A - MEDICARE PART [id number] 1991-Presen ATTN: CLAIMS HB USE ONLY A HB ONLY t [address] [place] [address] [facility] MR [id number] 2020-Presen [address] [address] [place] [address] [employer] Comp Self 1955 [id number] [place] [id number] [employer] Self 1955 [id number] [employer] [address] [place] [id number] [employer] Personal/Family Self 1955 [id number] [employer] [address] [place] [id number] Advance Directives Latest Code Status on File Code Status Date Activated Date Inactivated Comments Full Code 03/05/2020 6:59 AM 03/09/2020 8:07 PM Question Answer Comments Code Status Discussion: Not Discussed Code Status History Code Status Date Activated Date Inactivated Comments Full Code 04/25/2016 3:57 PM 05/10/2016 8:47 PM Full Code 2016 6:44 AM 03/14/2016 5:37 PM Full Code 12/16/2015 12:49 PM 12/25/2015 1:24 PM Full Code 12/15/2015 3:46 PM 12/16/2015 12:49 PM Care Teams Ethnographic Materials Conservator Relationship Specialty Start Date End Date Alex Mata MD PCP - General Family Practice 02/04/201999 [place] [address] Ana Mayers Nurse Practitioner 03/02/[address] [place] [address]
--- OUTSIDE RECORDS SUMMARY | 2022-07-04 12:52 | XMS_ITS | Encounter Summary ---
:1955 Author Organization [facility] Address [address] [place] [address] Phone Care Team Providers Name Role Phone Unavailable Primary Care Provider Unavailable Encounter Details Date Type Department Care Team Description 04/03/1997 Orders Only [facility] [address] [place], [place] [address] Social History Tobacco Use Types [...]
--- OUTSIDE RECORDS SUMMARY | 2022-07-04 12:52 | XMS_ITS | Encounter Summary ---
:1955 Author Organization [facility] Address [address] [place] [id number] Phone Care Team Providers Name Role Phone [...]
--- OUTSIDE RECORDS SUMMARY | 2022-07-04 12:52 | XMS_ITS | Encounter Summary ---
:[address] [facility] Address [address] [place], [place] [address] [place] [address] Phone Care Team Providers Name Role Phone Unavailable Primary Care Provider Unavailable Encounter Details Date Type Department Care Team Description 12/09/1998 Orders Only [facility] [place] G1 [address] [place], [place] [address] Social History Tobacco Use Types [...]
--- OUTSIDE RECORDS SUMMARY | 2022-07-04 12:52 | XMS_ITS | Encounter Summary ---
:1955 Author Organization [facility] Address [address] [place] [address] Phone Care Team Providers Name Role Phone Unavailable Primary Care Provider Unavailable Encounter Details Date Type Department Care Team Description 07/03/1995 Orders Only [facility] [address] [place], [place] [address] Social History Tobacco Use Types Packs/Day Years Used Date Smoking Tobacco: Never Assessed Sex Assigned at Date Recorded Not on file documented as of this encounter Plan of Treatment Not on filedocumented as of this encounter Procedures Procedure Name Priority Date/Time Associated Diagnosis Comme nts XR COCCYX AP & LAT Routine 07/03/1995 2:10 PM Res ults for this [employer]ER procedure are i n the results section. documented in this encounter Results XR COCCYX AP & LAT (07/03/1995 2:10 PM H[employer]) Anatomical Region Laterality Modality Lumbar Spine Computed Radiography Specimen (Source) Anatomical Collection Method Collection Time Re ceived Time Location / / Volume Laterality 07/03/1995 2:10 PM [employer] Impressions 07/05/1995 12:33 PM HIGH [employer]ER : ??Please see Sacrum report dated 07/03/95 1410. ASI END: RELEASE RESULTS: (Y) END RESULT: IMPRESSION Narrative 07/05/1995 12:33 PM H[employer]ER Final Report EXAM: ?? COCCYX AP & [...]
--- OUTSIDE RECORDS SUMMARY | 2022-07-04 12:52 | XMS_ITS | Encounter Summary ---
:1955 Author Organization [facility] Address [address] [place] [address] Phone Care Team Providers Name Role Phone Unavailable Primary Care Provider Unavailable Encounter Details Date Type Department Care Team Description 01/29/[address] [facility] Sameera Frances MD [address] [facility] [address] [place], [place] [address] 1 Mail Code [address] [place] [address] (Wo rk) Social History Tobacco [...] Results URINE CX (01/29/2001 3:37 PM CDT) [facility] Method Time Signature Urine Cult [facility] Test Name ? Collected on --------- [...] PM 01/31 CDT 10:[address] [facility] - 01/31/2001 10:25 AM CDT Ordered by an unspecified provider. Provider Unknown LAB MICROBIOLOGY Performing Organization Address City/State/ZIP Code Phon e Number [facility] [place] [address] LAB URINALYSIS, TOTAL (01/29/2001 3:37 PM CDT) [facility] Method Time Signature Color YELLOW YELLOW [facility] Appearance CLEAR CLEAR [facility] Urine Glucose NEGATIVE NEGATIVE [facility] Bili UA NEGATIVE NEGATIVE [facility] Ketones NEGATIVE NEGATIVE [facility] Specific [place] 1.010 1.003 - [facility] 1.030 Blood Ur TRACE Neg-Trace [facility] PH Urine 6.5 5.0 - 7.0 [facility] Protein Ur NEGATIVE NEGATIVE [facility] Urobilinogen 0.2 0.2 - 1.0 [facility] EU/dL Nitrite Ur NEGATIVE NEGATIVE [facility] Leuk Est TRACE Neg-Trace [facility] Microscopic [facility] WBC Ur 0 - 5 0 - 5 [facility] Trans Epith 1+ [facility] Sperm 1+ [facility] Specimen Anatomical Collection Method Collection Time Receive d Time (Source) Location / / Volume Laterality Urine 01/29/2001 3:37 PM 1 4:56 CDT [address] [facility] - 01/29/2001 4:56 PM CDT Ordered by an unspecified provider. Provider Unknown LABORATORY Performing Organization Address City/State/ZIP Code Phon e Number [facility] [place] [address] LAB documented in this encounter Visit Diagnoses Not on filedocumented in this encounter
== END 2022-07-04 12:46 | disposition home or self-care (01) ==
PROVIDERS: PCP Family Medicine; Visit Provider Nurse Practitioner Family
DX: L89.514 Pressure ulcer of right ankle, stage 4 (principal); L89.314 Pressure ulcer of right buttock, stage 4; L89.894 Pressure ulcer of other site, stage 4; L89.893 Pressure ulcer of other site, stage 3; L89.513 Pressure ulcer of right ankle, stage 3; L89.614 Pressure ulcer of right heel, stage 4
CPT/HCPCS: 11042; 11043; 11045; 11046; 97605

== ENCOUNTER 2022-07-11 12:13 | Outpatient (CLI) | payer OTHER, MEDICARE, SELFPAY | END 2022-07-11 12:14 | disposition home or self-care (01) | PROVIDERS: PCP Family Medicine; Visit Provider Nurse Practitioner Family | DX: L89.314 Pressure ulcer of right buttock, stage 4 (principal); L89.614 Pressure ulcer of right heel, stage 4; L89.894 Pressure ulcer of other site, stage 4; L89.514 Pressure ulcer of right ankle, stage 4; L89.513 Pressure ulcer of right ankle, stage 3; Z99.3 Dependence on wheelchair | CPT/HCPCS: 11042; 11043; 11045; 11046; 97605 ==

== ENCOUNTER 2022-07-19 07:53 | Outpatient (CLI) | payer OTHER, MEDICARE, SELFPAY | END 2022-07-19 07:54 | disposition home or self-care (01) | LOC: WOUND 07:53 | PROVIDERS: PCP Family Medicine; Visit Provider Nurse Practitioner Family | DX: L89.894 Pressure ulcer of other site, stage 4 (principal); L89.893 Pressure ulcer of other site, stage 3; L89.314 Pressure ulcer of right buttock, stage 4; L89.614 Pressure ulcer of right heel, stage 4; L89.514 Pressure ulcer of right ankle, stage 4; L89.513 Pressure ulcer of right ankle, stage 3; Z99.3 Dependence on wheelchair | CPT/HCPCS: 11043; 11046 ==

== ENCOUNTER 2022-07-26 08:03 | Outpatient (CLI) | payer OTHER, MEDICARE, SELFPAY | END 2022-07-26 08:04 | disposition home or self-care (01) | LOC: WOUND 08:04 | PROVIDERS: PCP Family Medicine; Visit Provider Nurse Practitioner Family | DX: L89.894 Pressure ulcer of other site, stage 4 (principal); L89.314 Pressure ulcer of right buttock, stage 4; L89.614 Pressure ulcer of right heel, stage 4; L89.513 Pressure ulcer of right ankle, stage 3; Z99.3 Dependence on wheelchair | CPT/HCPCS: 11042; 11045; 97597 ==

== ENCOUNTER 2022-08-01 08:45 | Outpatient (CLI) | payer OTHER, MEDICARE, SELFPAY | END 2022-08-01 08:46 | disposition home or self-care (01) | LOC: WOUND 08:45 | PROVIDERS: PCP Family Medicine; Visit Provider Nurse Practitioner Family | DX: L89.894 Pressure ulcer of other site, stage 4 (principal); L89.893 Pressure ulcer of other site, stage 3; L89.513 Pressure ulcer of right ankle, stage 3; L89.614 Pressure ulcer of right heel, stage 4 | CPT/HCPCS: 11042; 11045; 97597; 97598; 97605 ==

== ENCOUNTER 2022-08-04 15:12 | Outpatient (CLI) | payer OTHER, MEDICARE, SELFPAY | END 2022-08-04 15:13 | disposition home or self-care (01) | LOC: NFLDREF 08-10 11:06 | PROVIDERS: PCP Family Medicine; Visit Provider Family Medicine | DX: L89.314 Pressure ulcer of right buttock, stage 4 (principal); L89.614 Pressure ulcer of right heel, stage 4; L89.894 Pressure ulcer of other site, stage 4 | CPT/HCPCS: 87086; 87186 ==

== ENCOUNTER 2022-08-08 12:59 | Outpatient (CLI) | payer OTHER, MEDICARE, SELFPAY | END 2022-08-08 13:00 | disposition home or self-care (01) | LOC: WOUND 12:59 | PROVIDERS: PCP Family Medicine; Visit Provider Nurse Practitioner Family | DX: L89.894 Pressure ulcer of other site, stage 4 (principal); L89.314 Pressure ulcer of right buttock, stage 4; L89.893 Pressure ulcer of other site, stage 3; L89.614 Pressure ulcer of right heel, stage 4; I73.9 Peripheral vascular disease, unspecified; Z99.3 Dependence on wheelchair | CPT/HCPCS: 11042; 11043; 11046; 15271; 97597; 97605; Q4151 ==

== ENCOUNTER 2022-08-15 12:52 | Outpatient (CLI) | payer OTHER, MEDICARE, SELFPAY | END 2022-08-15 12:53 | disposition home or self-care (01) | LOC: WOUND 12:52 | PROVIDERS: PCP Family Medicine; Visit Provider Nurse Practitioner Family | DX: L89.894 Pressure ulcer of other site, stage 4 (principal); L89.314 Pressure ulcer of right buttock, stage 4; L89.893 Pressure ulcer of other site, stage 3; L89.514 Pressure ulcer of right ankle, stage 4 | CPT/HCPCS: 11042; 15271; 15272; 15275; 97597; 97605; Q4158 ==

== ENCOUNTER 2022-08-22 12:55 | Outpatient (CLI) | payer OTHER, MEDICARE, SELFPAY | END 2022-08-22 12:56 | disposition home or self-care (01) | LOC: WOUND 12:55 | PROVIDERS: PCP Family Medicine; Visit Provider Nurse Practitioner Family | DX: L89.894 Pressure ulcer of other site, stage 4 (principal); L89.314 Pressure ulcer of right buttock, stage 4; L89.514 Pressure ulcer of right ankle, stage 4; L89.893 Pressure ulcer of other site, stage 3; L89.614 Pressure ulcer of right heel, stage 4 | CPT/HCPCS: 11042; 11045; 97597 ==

== ENCOUNTER 2022-08-23 11:44 | Outpatient (CLI) | payer OTHER, MEDICARE, SELFPAY | END 2022-08-23 11:45 | disposition home or self-care (01) | PROVIDERS: PCP Family Medicine; Visit Provider Family Medicine | DX: N39.0 Urinary tract infection, site not specified (principal) | CPT/HCPCS: 87086 ==

== ENCOUNTER 2022-08-29 12:58 | Outpatient (CLI) | payer OTHER, MEDICARE, SELFPAY | END 2022-08-29 12:59 | disposition home or self-care (01) | LOC: WOUND 12:58 | PROVIDERS: PCP Family Medicine; Visit Provider Nurse Practitioner Family | DX: L89.894 Pressure ulcer of other site, stage 4 (principal); L89.893 Pressure ulcer of other site, stage 3; L89.514 Pressure ulcer of right ankle, stage 4; L89.614 Pressure ulcer of right heel, stage 4; L89.314 Pressure ulcer of right buttock, stage 4 | CPT/HCPCS: 11042; 11043; 11045; 15271; 97597; Q4158 ==

== ENCOUNTER 2022-09-05 08:44 | Outpatient (CLI) | payer OTHER, MEDICARE, SELFPAY | END 2022-09-05 08:45 | disposition home or self-care (01) | LOC: WOUND 08:44 | PROVIDERS: PCP Family Medicine; Visit Provider Nurse Practitioner Family | DX: L89.894 Pressure ulcer of other site, stage 4 (principal); L89.893 Pressure ulcer of other site, stage 3; L89.614 Pressure ulcer of right heel, stage 4; L89.314 Pressure ulcer of right buttock, stage 4; L89.514 Pressure ulcer of right ankle, stage 4 | CPT/HCPCS: 15271; 15272; 97597; 97598; Q4158 ==

== ENCOUNTER 2022-09-12 12:59 | Outpatient (CLI) | payer OTHER, MEDICARE, SELFPAY | END 2022-09-12 13:00 | disposition home or self-care (01) | LOC: WOUND 12:59 | PROVIDERS: PCP Family Medicine; Visit Provider Nurse Practitioner Family | DX: L89.894 Pressure ulcer of other site, stage 4 (principal); L89.314 Pressure ulcer of right buttock, stage 4; L89.614 Pressure ulcer of right heel, stage 4; L89.514 Pressure ulcer of right ankle, stage 4; L89.893 Pressure ulcer of other site, stage 3 | CPT/HCPCS: 11042; 11045; 97597 ==

== ENCOUNTER 2022-09-19 12:54 | Outpatient (CLI) | payer OTHER, MEDICARE, SELFPAY | END 2022-09-19 12:55 | disposition home or self-care (01) | LOC: WOUND 12:54 | PROVIDERS: PCP Family Medicine; Visit Provider Nurse Practitioner Family | DX: L89.314 Pressure ulcer of right buttock, stage 4 (principal); L89.894 Pressure ulcer of other site, stage 4; L89.893 Pressure ulcer of other site, stage 3; L89.514 Pressure ulcer of right ankle, stage 4; L89.614 Pressure ulcer of right heel, stage 4 | CPT/HCPCS: 11042; 11045; 97597 ==

== ENCOUNTER 2022-09-26 12:57 | Outpatient (CLI) | payer OTHER, MEDICARE, SELFPAY | END 2022-09-26 12:58 | disposition home or self-care (01) | LOC: WOUND 12:57 | PROVIDERS: PCP Family Medicine; Visit Provider Nurse Practitioner Family | DX: L89.894 Pressure ulcer of other site, stage 4 (principal); L89.314 Pressure ulcer of right buttock, stage 4; L89.514 Pressure ulcer of right ankle, stage 4; L89.614 Pressure ulcer of right heel, stage 4 | CPT/HCPCS: 11042; 11045 ==

== ENCOUNTER 2022-10-05 09:29 | Outpatient (CLI) | payer OTHER, MEDICARE, SELFPAY | END 2022-10-05 09:30 | disposition home or self-care (01) | LOC: WOUND 09:29 | PROVIDERS: PCP Family Medicine; Visit Provider Nurse Practitioner Family | DX: L89.314 Pressure ulcer of right buttock, stage 4 (principal); L89.614 Pressure ulcer of right heel, stage 4; L89.894 Pressure ulcer of other site, stage 4; L89.514 Pressure ulcer of right ankle, stage 4; I73.9 Peripheral vascular disease, unspecified; Z99.3 Dependence on wheelchair | CPT/HCPCS: 99215 ==

== ENCOUNTER 2022-10-10 12:58 | Outpatient (CLI) | payer OTHER, MEDICARE, SELFPAY | END 2022-10-10 12:59 | disposition home or self-care (01) | LOC: WOUND 12:58 | PROVIDERS: PCP Family Medicine; Visit Provider Physician Assistant Surgical | DX: L89.894 Pressure ulcer of other site, stage 4 (principal); L89.893 Pressure ulcer of other site, stage 3; L89.314 Pressure ulcer of right buttock, stage 4; L89.514 Pressure ulcer of right ankle, stage 4; L89.614 Pressure ulcer of right heel, stage 4; Z99.3 Dependence on wheelchair | CPT/HCPCS: 11042; 11043; 11046 ==

== ENCOUNTER 2022-10-17 13:02 | Outpatient (CLI) | payer OTHER, MEDICARE, SELFPAY | END 2022-10-17 13:03 | disposition home or self-care (01) | PROVIDERS: PCP Family Medicine; Visit Provider Nurse Practitioner Family | DX: L89.314 Pressure ulcer of right buttock, stage 4 (principal); L89.894 Pressure ulcer of other site, stage 4; L89.514 Pressure ulcer of right ankle, stage 4; L89.614 Pressure ulcer of right heel, stage 4 | CPT/HCPCS: 11042; 11043; 11046 ==

== ENCOUNTER 2022-10-24 12:57 | Outpatient (CLI) | payer OTHER, MEDICARE, SELFPAY | END 2022-10-24 12:58 | disposition home or self-care (01) | PROVIDERS: PCP Family Medicine; Visit Provider Nurse Practitioner Family | DX: L89.894 Pressure ulcer of other site, stage 4 (principal); L89.314 Pressure ulcer of right buttock, stage 4; L89.514 Pressure ulcer of right ankle, stage 4; L89.614 Pressure ulcer of right heel, stage 4; M86.671 Other chronic osteomyelitis, right ankle and foot; M86.68 Other chronic osteomyelitis, other site | CPT/HCPCS: 11042; 11045; 97597 ==

== ENCOUNTER 2022-10-24 14:18 | Outpatient (CLI) | payer OTHER, MEDICARE, SELFPAY ==
--- NOTE | 2022-10-24 14:15 | CRLHL7_ITS ---
For Patients: As a result of the Cures Act, medical imaging exams and procedure reports are released immediately into your electronic medical record. You may view this report before your referring provider. If you have questions, please contact your health care provider. Indication: non healing wound, probes to the joint Technique: Right ankle 3 views Comparison: None Findings: Postop changes of partial calcaneus resection. Osteopenia. Spurring at the dorsal talonavicular joint. Mild spurring at the tibiotalar joint. No joint effusion. No fracture. No periostitis or cortical destruction. Impression: No evidence of osteomyelitis or synovitis. Dictated by Alex Hong MD @ 10/24/2022 3:57:45 PM (Electronically Signed)
--- NOTE | 2022-10-24 14:15 | CRLHL7_ITS ---
For Patients: As a result of the Cures Act, medical imaging exams and procedure reports are released immediately into your electronic medical record. You may view this report before your referring provider. If you have questions, please contact your health care provider. Indication: non healing wound, probes to the joint Technique: Three views left 2nd toe Comparison: None Findings: Destructive changes are present involving the distal aspect of the 2nd toe proximal phalanx adjacent to the PIP joint. Overlying bandage material noted. Surrounding soft tissue swelling. Cannot exclude destructive changes to the dorsal base of the middle phalanx. Impression: Suspicion of osteomyelitis involving the distal aspect of the left 2nd toe proximal phalanx at the dorsal aspect. Cannot exclude additional osteomyelitis at the dorsal base of the 2nd toe middle phalanx. Dictated by Alex Hong MD @ 10/24/2022 3:59:33 PM (Electronically Signed)
--- NOTE | 2022-10-24 14:30 | CRLHL7_ITS ---
For Patients: As a result of the Cures Act, medical imaging exams and procedure reports are released immediately into your electronic medical record. You may view this report before your referring provider. If you have questions, please contact your health care provider. Indication: non healing wound, probes to the joint Technique: AP pelvis Comparison: 05/16/2022 Findings: Chronic changes to the inferior pubic rami/ischial tuberosities. Chronic healed fracture deformity of the left proximal femur with intact visualized hardware. Similar appearance of the hip joints with degenerative joint disease on the left. No acute destructive changes or acute fracture. Impression: No evidence of acute osteomyelitis. Dictated by Alex Hong MD @ 10/24/2022 4:01:14 PM (Electronically Signed)
== END 2022-10-24 14:19 | disposition home or self-care (01) ==
PROVIDERS: PCP Family Medicine; Visit Provider Nurse Practitioner Family
DX: M25.9 Joint disorder, unspecified (principal); S81.801A Unspecified open wound, right lower leg, initial encounter
CPT/HCPCS: 72170; 73610; 73660

== ENCOUNTER 2022-10-31 12:51 | Outpatient (CLI) | payer OTHER, MEDICARE, SELFPAY ==
[2022-10-31 14:30] LABS: White Blood Count* 5.36 K/uL (4.50-11.00)
[2022-10-31 14:31] LABS: Basophils Absolute Auto 0.03 K/uL (0.00-0.30); Basophils Percent Auto 0.6 % (0.0-3.0); Eosinophils Percent Auto 7.6 % (0.0-7.0); Hematocrit 32.2 % (37.0-53.0); Hemoglobin* 10.6 gm/dL (13.5-17.5); Lymphocytes Absolute Auto 1.34 K/uL (0.90-2.90); Mean Corpuscular HGB Conc 33 gm/dL (32-36); Mean Corpuscular Hemoglobin 29 pg (26-34); Mean Corpuscular Volume 89 fL (80-100); Monocytes Percent Auto 6.7 % (0.0-11.0); Neutrophils Absolute Auto 3.22 K/uL (1.7-7.0); Neutrophils Percent Auto 60.1 % (42.0-72.0); Platelet Count* 203 K/uL (140-440); RDW Coefficient of Variation % 12.9 % (11.5-15.5)
[2022-10-31 14:32] LABS: Slide Review Reflex No
[2022-10-31 14:42] LABS: Chloride* 108 mmol/L (96-114); Potassium* 3.9 mmol/L (3.6-5.1); Sodium* 137 mmol/L (135-149)
[2022-10-31 14:44] LABS: Creatinine* 0.4 mg/dL (0.5-1.5); Estimated Glomerular Filt Rate 119 ml/min
[2022-10-31 14:45] LABS: Carbon Dioxide* 25 mmol/L (20-32)
[2022-10-31 14:46] LABS: Blood Urea Nitrogen* 17 mg/dL (7-30); Calcium* 8.6 mg/dL (8.4-10.6); Glucose* 89 mg/dL (60-115)
[2022-10-31 14:49] LABS: C Reactive Protein* 2.2 mg/dL (0.5-1.0)
[2022-11-02 20:24] LABS: Prealbumin 18.2 mg/dL (20.0-40.0)
== END 2022-10-31 12:52 | disposition home or self-care (01) ==
PROVIDERS: PCP Family Medicine; Visit Provider Nurse Practitioner Family
DX: L89.314 Pressure ulcer of right buttock, stage 4 (principal); L89.894 Pressure ulcer of other site, stage 4; L89.514 Pressure ulcer of right ankle, stage 4; L89.614 Pressure ulcer of right heel, stage 4; M86.68 Other chronic osteomyelitis, other site; I73.9 Peripheral vascular disease, unspecified; Z99.3 Dependence on wheelchair
CPT/HCPCS: 11042; 36415; 80048; 84134; 85025; 86140; 97597; 97598

== ENCOUNTER 2022-11-07 12:55 | Outpatient (CLI) | payer OTHER, MEDICARE, SELFPAY | END 2022-11-07 12:56 | disposition home or self-care (01) | LOC: WOUND 12:55 | PROVIDERS: PCP Family Medicine; Visit Provider Nurse Practitioner Family | DX: L89.894 Pressure ulcer of other site, stage 4 (principal); L89.314 Pressure ulcer of right buttock, stage 4; L89.514 Pressure ulcer of right ankle, stage 4; L89.614 Pressure ulcer of right heel, stage 4; H61.21 Impacted cerumen, right ear; Z99.3 Dependence on wheelchair; R26.9 Unspecified abnormalities of gait and mobility | CPT/HCPCS: 11042; 11045; 69209; 69210 ==

== ENCOUNTER 2022-11-07 14:29 | Outpatient (CLI) | payer OTHER, MEDICARE, SELFPAY ==
--- NOTE | 2022-11-07 14:30 | CRLHL7_ITS ---
For Patients: As a result of the Century Cures Act, medical imaging exams and procedure reports are released immediately into your electronic medical record. You may view this report before your referring provider. If you have questions, please contact your health care provider. INDICATION: HBO Workup TECHNIQUE: Chest 2 views. COMPARISON: None FINDINGS: Cardiovascular and mediastinum: Heart size and vasculature are normal in caliber and appearance. Mediastinum is within normal limits. Subtle transvenous pacer device. Lungs and pleural spaces: Lungs are clear. No sign of infiltrate or mass. No sign of pleural effusion. No pneumothorax. Bones and soft tissues: No significant findings. IMPRESSION: Unremarkable chest. Dictated by Alex Ventura MD @ 11/07/2022 3:39:57 PM (Electronically Signed)
== END 2022-11-07 14:30 | disposition home or self-care (01) ==
LOC: RAD 14:30
PROVIDERS: PCP Family Medicine; Visit Provider Nurse Practitioner Family
DX: M86.68 Other chronic osteomyelitis, other site (principal)
CPT/HCPCS: 71046

== ENCOUNTER 2022-11-09 10:39 | Day surgery (SDC) | payer OTHER, SELFPAY ==
[2022-11-09 11:00] VITALS: BP 124/63; PULSE 79; RESP 16; TEMP 36.7; O2SAT 99
[2022-11-09 11:20] VITALS: BP 141/61; RESP 16; O2SAT 98
[2022-11-09 11:24] VITALS: BP 119/59; RESP 16; O2SAT 98
[2022-11-09 11:28] VITALS: BP 110/58; PULSE 79; RESP 16; TEMP 36.6; O2SAT 96
--- NOTE | 2022-11-09 11:58 | P.ENTPROC_ITS ---
Procedure Note Date of procedure: 11/09/22 Procedure: Preop diagnosis right eustachian tube dysfunction, hemotympanum serous otitis media, hearing loss, hyperbaric oxygen therapy Postoperative diagnosis same Procedure right myringotomy with tube The patient was brought to the operating room and prepped and draped in usual fashion. A strip of topical phenol was applied to the inferior right tympanic membrane. An incision was made with a [place] blade. Fluid was aspirated with a 5. Suction and a Wu tube placed without difficulty. Ciprodex drops were then placed. The patient procedure well. Blood loss 0. Surgeon: Robbi Huerta MD
== END 2022-11-09 11:44 | disposition home or self-care (01) ==
PROVIDERS: PCP Family Medicine; Visit Provider Otolaryngology
PROC: (CPT 69420; principal; 2022-11-09 12:00)
DX: H65.91 Unspecified nonsuppurative otitis media, right ear (principal); H91.90 Unspecified hearing loss, unspecified ear; H69.91 Unspecified Eustachian tube disorder, right ear
CPT/HCPCS: 69436; A9270

== ENCOUNTER 2022-11-09 14:35 | Outpatient (CLI) | payer OTHER, MEDICARE, SELFPAY | END 2022-11-09 14:36 | disposition home or self-care (01) | LOC: WOUND 14:35 | PROVIDERS: PCP Family Medicine; Visit Provider Surgery | DX: M86.68 Other chronic osteomyelitis, other site (principal); L89.894 Pressure ulcer of other site, stage 4; L89.314 Pressure ulcer of right buttock, stage 4; L89.893 Pressure ulcer of other site, stage 3; L89.514 Pressure ulcer of right ankle, stage 4; L89.614 Pressure ulcer of right heel, stage 4 | CPT/HCPCS: 99215 ==

== ENCOUNTER 2022-11-14 13:26 | Outpatient (CLI) | payer OTHER, SELFPAY | END 2022-11-14 13:27 | disposition home or self-care (01) | LOC: WOUND 13:26 | PROVIDERS: PCP Family Medicine; Visit Provider Physician Assistant Surgical | DX: M86.68 Other chronic osteomyelitis, other site (principal); L89.894 Pressure ulcer of other site, stage 4; L89.614 Pressure ulcer of right heel, stage 4; L89.314 Pressure ulcer of right buttock, stage 4; L89.514 Pressure ulcer of right ankle, stage 4 | CPT/HCPCS: 11042; 11043; 11046; G0277 ==

== ENCOUNTER 2022-11-18 07:50 | Outpatient (CLI) | payer OTHER, SELFPAY | END 2022-11-18 07:51 | disposition home or self-care (01) | LOC: WOUND 07:51 | PROVIDERS: PCP Family Medicine; Visit Provider Nurse Practitioner Family | DX: M86.68 Other chronic osteomyelitis, other site (principal); L89.314 Pressure ulcer of right buttock, stage 4; L89.614 Pressure ulcer of right heel, stage 4; L89.894 Pressure ulcer of other site, stage 4; L89.893 Pressure ulcer of other site, stage 3; L89.514 Pressure ulcer of right ankle, stage 4 | CPT/HCPCS: 99215; G0277 ==

== ENCOUNTER 2022-11-18 13:30 | Outpatient (RCR) | payer OTHER, MEDICARE, SELFPAY | END 2022-11-20 23:59 | disposition home or self-care (01) | LOC: WOUND 13:30 | PROVIDERS: PCP Family Medicine; Visit Provider Nurse Practitioner Family | DX: M86.68 Other chronic osteomyelitis, other site (principal); L89.614 Pressure ulcer of right heel, stage 4; L89.894 Pressure ulcer of other site, stage 4; L89.314 Pressure ulcer of right buttock, stage 4; L89.514 Pressure ulcer of right ankle, stage 4; L89.893 Pressure ulcer of other site, stage 3; I73.9 Peripheral vascular disease, unspecified; Z99.3 Dependence on wheelchair | CPT/HCPCS: G0277 ==

== ENCOUNTER 2022-11-21 12:21 | Outpatient (CLI) | payer OTHER, MEDICARE, SELFPAY | END 2022-11-21 12:22 | disposition home or self-care (01) | PROVIDERS: PCP Family Medicine; Visit Provider Nurse Practitioner Family | DX: M86.68 Other chronic osteomyelitis, other site (principal); L89.314 Pressure ulcer of right buttock, stage 4; L89.614 Pressure ulcer of right heel, stage 4; L89.894 Pressure ulcer of other site, stage 4; L89.893 Pressure ulcer of other site, stage 3; L89.514 Pressure ulcer of right ankle, stage 4; I73.9 Peripheral vascular disease, unspecified; Z99.3 Dependence on wheelchair | CPT/HCPCS: 11042; 11045; G0277 ==

== ENCOUNTER 2022-12-26 14:30 | Outpatient (CLI) | payer OTHER, SELFPAY | END 2022-12-26 14:31 | disposition home or self-care (01) | LOC: WOUND 14:30 | PROVIDERS: PCP Family Medicine; Visit Provider Nurse Practitioner Family | DX: L89.314 Pressure ulcer of right buttock, stage 4 (principal); L89.894 Pressure ulcer of other site, stage 4 | CPT/HCPCS: 11042; 11045 ==

== ENCOUNTER 2023-01-02 14:31 | Outpatient (CLI) | payer OTHER, SELFPAY | END 2023-01-02 14:32 | disposition home or self-care (01) | LOC: WOUND 14:31 | PROVIDERS: PCP Family Medicine; Visit Provider Nurse Practitioner Family | DX: M86.68 Other chronic osteomyelitis, other site (principal); L89.894 Pressure ulcer of other site, stage 4; L89.314 Pressure ulcer of right buttock, stage 4; Z99.3 Dependence on wheelchair | CPT/HCPCS: 11042; 11045 ==

== ENCOUNTER 2023-01-20 10:27 | Outpatient (CLI) | payer OTHER, SELFPAY | END 2023-01-20 10:28 | disposition home or self-care (01) | PROVIDERS: PCP Family Medicine; Visit Provider Nurse Practitioner Family | DX: L89.314 Pressure ulcer of right buttock, stage 4 (principal); L89.894 Pressure ulcer of other site, stage 4; M86.68 Other chronic osteomyelitis, other site; Z99.3 Dependence on wheelchair | CPT/HCPCS: 11042; 11045; 97597 ==

== ENCOUNTER 2023-01-30 14:30 | Outpatient (CLI) | payer OTHER, SELFPAY | END 2023-01-30 14:31 | disposition home or self-care (01) | LOC: WOUND 14:30 | PROVIDERS: PCP Family Medicine; Visit Provider Nurse Practitioner Family | DX: L89.314 Pressure ulcer of right buttock, stage 4 (principal); L89.514 Pressure ulcer of right ankle, stage 4 | CPT/HCPCS: 11042; 97597 ==

== ENCOUNTER 2023-02-06 14:28 | Outpatient (CLI) | payer OTHER, SELFPAY | END 2023-02-06 14:29 | disposition home or self-care (01) | LOC: WOUND 14:28 | PROVIDERS: PCP Family Medicine; Visit Provider Nurse Practitioner Family | DX: L89.314 Pressure ulcer of right buttock, stage 4 (principal); L89.514 Pressure ulcer of right ankle, stage 4; L89.894 Pressure ulcer of other site, stage 4 | CPT/HCPCS: 15271; 15272; 97602; Q4151 ==

== ENCOUNTER 2023-02-13 14:33 | Outpatient (CLI) | payer OTHER, MEDICARE, SELFPAY | END 2023-02-13 14:34 | disposition home or self-care (01) | LOC: WOUND 14:33 | PROVIDERS: PCP Family Medicine; Visit Provider Nurse Practitioner Family | DX: L89.894 Pressure ulcer of other site, stage 4 (principal); L89.314 Pressure ulcer of right buttock, stage 4 | CPT/HCPCS: 11042; 11045; 97597 ==

== ENCOUNTER 2023-02-27 11:03 | Outpatient (CLI) | payer OTHER, SELFPAY | END 2023-02-27 11:04 | disposition home or self-care (01) | LOC: WOUND 11:03 | PROVIDERS: PCP Family Medicine; Visit Provider Nurse Practitioner Family | DX: L89.894 Pressure ulcer of other site, stage 4 (principal); L89.314 Pressure ulcer of right buttock, stage 4 | CPT/HCPCS: 11042; 11045; 97597 ==

== ENCOUNTER 2023-03-13 11:00 | Outpatient (CLI) | payer OTHER, SELFPAY | END 2023-03-13 11:01 | disposition home or self-care (01) | LOC: WOUND 11:00 | PROVIDERS: PCP Family Medicine; Visit Provider Nurse Practitioner Family | DX: L89.314 Pressure ulcer of right buttock, stage 4 (principal); L89.514 Pressure ulcer of right ankle, stage 4; L89.894 Pressure ulcer of other site, stage 4; Z99.3 Dependence on wheelchair | CPT/HCPCS: 11042; 11045; 97597 ==

== ENCOUNTER 2023-04-10 11:05 | Outpatient (CLI) | payer OTHER, SELFPAY | END 2023-04-10 11:06 | disposition home or self-care (01) | LOC: WOUND 11:05 | PROVIDERS: PCP Family Medicine; Visit Provider Nurse Practitioner Family | DX: M86.68 Other chronic osteomyelitis, other site (principal); L89.314 Pressure ulcer of right buttock, stage 4; L89.894 Pressure ulcer of other site, stage 4; L89.514 Pressure ulcer of right ankle, stage 4 | CPT/HCPCS: 11042; 87070; 87186; 97602; 99212 ==

== ENCOUNTER 2023-04-24 14:56 | Outpatient (CLI) | payer OTHER, SELFPAY | END 2023-04-24 14:57 | disposition home or self-care (01) | LOC: WOUND 14:57 | PROVIDERS: PCP Family Medicine; Visit Provider Nurse Practitioner Family | DX: L89.894 Pressure ulcer of other site, stage 4 (principal); L89.314 Pressure ulcer of right buttock, stage 4; L89.514 Pressure ulcer of right ankle, stage 4 | CPT/HCPCS: 97597; 97598 ==

== ENCOUNTER 2023-05-08 14:57 | Outpatient (CLI) | payer OTHER, SELFPAY | END 2023-05-08 14:58 | disposition home or self-care (01) | LOC: WOUND 14:57 | PROVIDERS: PCP Family Medicine; Visit Provider Nurse Practitioner Family | DX: M86.68 Other chronic osteomyelitis, other site (principal); L89.314 Pressure ulcer of right buttock, stage 4; L89.894 Pressure ulcer of other site, stage 4; L89.514 Pressure ulcer of right ankle, stage 4; L89.613 Pressure ulcer of right heel, stage 3; S91.301A Unspecified open wound, right foot, initial encounter; Z99.3 Dependence on wheelchair | CPT/HCPCS: 97597; 97602 ==

== ENCOUNTER 2023-05-18 09:14 | Outpatient (CLI) | payer MEDICARE, SELFPAY | END 2023-05-18 09:15 | disposition home or self-care (01) | PROVIDERS: PCP Family Medicine; Visit Provider Family Medicine | DX: Z01.818 Encounter for other preprocedural examination (principal); Z12.5 Encounter for screening for malignant neoplasm of prostate; Z13.6 Encounter for screening for cardiovascular disorders | CPT/HCPCS: 80048; 80061; 84153; 85025 ==

== ENCOUNTER 2023-05-22 11:04 | Outpatient (CLI) | payer OTHER, SELFPAY | END 2023-05-22 11:05 | disposition home or self-care (01) | LOC: WOUND 11:04 | PROVIDERS: PCP Family Medicine; Visit Provider Nurse Practitioner Family | DX: M86.68 Other chronic osteomyelitis, other site (principal); L89.894 Pressure ulcer of other site, stage 4; Z99.3 Dependence on wheelchair | CPT/HCPCS: 11042 ==

== ENCOUNTER 2023-06-05 10:57 | Outpatient (CLI) | payer OTHER, SELFPAY | END 2023-06-05 10:58 | disposition home or self-care (01) | LOC: WOUND 10:57 | PROVIDERS: PCP Family Medicine; Visit Provider Family Medicine | DX: L89.314 Pressure ulcer of right buttock, stage 4 (principal); L89.894 Pressure ulcer of other site, stage 4; L89.514 Pressure ulcer of right ankle, stage 4; S91.301A Unspecified open wound, right foot, initial encounter; Z99.3 Dependence on wheelchair | CPT/HCPCS: 11042; 97597 ==

== ENCOUNTER 2023-06-19 08:01 | Outpatient (CLI) | payer OTHER, SELFPAY | END 2023-06-19 08:02 | disposition home or self-care (01) | PROVIDERS: PCP Family Medicine; Visit Provider Nurse Practitioner Family | DX: M86.68 Other chronic osteomyelitis, other site (principal); L89.894 Pressure ulcer of other site, stage 4; L89.514 Pressure ulcer of right ankle, stage 4; L89.613 Pressure ulcer of right heel, stage 3; L89.314 Pressure ulcer of right buttock, stage 4; S91.301A Unspecified open wound, right foot, initial encounter; Z99.3 Dependence on wheelchair | CPT/HCPCS: 11042; 97597; G0277 ==

== ENCOUNTER 2023-06-21 08:00 | Outpatient (RCR) | payer OTHER, SELFPAY | END 2023-06-22 23:59 | disposition home or self-care (01) | LOC: WOUND 08:00 | PROVIDERS: PCP Family Medicine; Visit Provider Nurse Practitioner Family | DX: M86.68 Other chronic osteomyelitis, other site (principal); L89.314 Pressure ulcer of right buttock, stage 4 | CPT/HCPCS: G0277 ==

== ENCOUNTER 2023-07-18 07:58 | Outpatient (CLI) | payer OTHER, SELFPAY | END 2023-07-18 07:59 | disposition home or self-care (01) | LOC: WOUND 07:58 | PROVIDERS: PCP Family Medicine; Visit Provider Family Medicine | DX: M86.68 Other chronic osteomyelitis, other site (principal); L89.894 Pressure ulcer of other site, stage 4; L89.314 Pressure ulcer of right buttock, stage 4; L89.514 Pressure ulcer of right ankle, stage 4; L89.613 Pressure ulcer of right heel, stage 3; S91.301A Unspecified open wound, right foot, initial encounter | CPT/HCPCS: 11042; 11045; G0277 ==

== ENCOUNTER 2023-07-21 08:00 | Outpatient (RCR) | payer OTHER, SELFPAY | END 2023-07-23 23:59 | disposition home or self-care (01) | LOC: WOUND 08:00 | PROVIDERS: PCP Family Medicine; Visit Provider Family Medicine | DX: M86.68 Other chronic osteomyelitis, other site (principal); L89.314 Pressure ulcer of right buttock, stage 4; Z99.3 Dependence on wheelchair | CPT/HCPCS: 99211; G0277 ==

== ENCOUNTER 2023-07-31 07:54 | Outpatient (CLI) | payer OTHER, SELFPAY | END 2023-07-31 07:55 | disposition home or self-care (01) | LOC: WOUND 07:54 | PROVIDERS: PCP Family Medicine; Visit Provider Nurse Practitioner Family | DX: M86.68 Other chronic osteomyelitis, other site (principal); L89.894 Pressure ulcer of other site, stage 4; L89.514 Pressure ulcer of right ankle, stage 4; L89.314 Pressure ulcer of right buttock, stage 4; L89.893 Pressure ulcer of other site, stage 3; S91.301A Unspecified open wound, right foot, initial encounter; Z99.3 Dependence on wheelchair | CPT/HCPCS: 97597; 97602; G0277 ==

== ENCOUNTER 2023-08-14 07:52 | Outpatient (CLI) | payer OTHER, SELFPAY ==
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
--- OUTSIDE RECORDS SUMMARY | 2023-08-14 07:54 | XMS_ITS | Data Portability ---
Author Name Unknown Address [address] [place] [address] Phone [phone] Organization [facility], [facility] Address [address] [place] [address] Care Team Providers Care Lead Radiologic Technologist Name Role Phone CHETNA MERAZ Primary Care Provider [phone] ANTHONY JUAREZ Roll Icer Assessment Encounter Date Assessment Date Assessment LastModified by Organization Details LastModified Time 02/18/2021 02/18/2021 65 yoM with history of neurogenic bladder secondary to spinal cord injury. Not available 02/18/2021 14:05:55 09/27/2021 09/27/2021 65 yoM with history of neurogenic bladder secondary to spinal cord injury. [email or web address] Not available 09/27/2021 12:51:04 09/28/2022 09/28/2022 67 yoM with history of neurogenic bladder secondary to spinal cord injury. Not available 09/28/2022 09:12:48 04/28/2023 04/28/2023 68 yoM with history of neurogenic bladder secondary to spinal cord injury. [email or web address] Not available 04/27/2023 11:18:34 Plan of Treatment Reminders Order Date Submit Date Provider Last Modified By Organization Details Last Modified Time Details Appointments ESTABLISH ED PHONE VISIT 15 2023 11:30A M Jono Pagan MD Not available Not available Not available Lab culture, urine 2020 021 [facility], [address], [address], [place], [address], 05/08/2021 07:39:35 urinalysi s, dipstick 2020 021 [email or web address] Not available 05/12/2021 11:34:22 urinalysi s, dipstick 2020 [email or web address] Not available 02/18/2021 14:48:24 culture, urine 2020 [facility], [address], [address], [place], [address], 02/20/2021 09:38:15 Referral None recorded. Procedures None recorded. Surgeries None recorded. Imaging US, kidney 2021 [facility], [address] [place], [address], 10/06/2021 09:00:29 Medication Orders oxybutyni n chloride ER 15 mg tablet,ex tended release 24 hr 2022 023 [facility][id number], [address] [facility], [place], [id number], 04/28/2023 12:15:06 methenami ne hippurate 1 gram tablet 2022 023 [facility] #[id number], [address] , [place], [place], [id number], 04/28/2023 12:31:06 nitrofura ntoin macrocrys tori 50 mg capsule 2022 023 [facility] #[id number], [address] , [place], [place], [id number], 09/28/2022 13:48:42 oxybutyni n chloride ER 15 mg tablet,ex tended release 24 hr 2021 022 [facility] #[id number], [address] [place], [place], [id number], 09/27/2021 12:53:22 nitrofura ntoin macrocrys tori 50 mg capsule 2021 022 [facility] #[id number], [address] , [place], [place], [id number], 09/27/2021 12:53:21 Bactrim DS 800 mg-160 mg tablet [address] [facility], [address] [place] [address], [id number], 09/27/2021 12:43:46 nitrofura ntoin macrocrys tori 50 mg capsule 2020 021 [facility], [address] [place] [address], [id number], 02/18/2021 15:02:39 Patient TargetsNo targets recorded. Patient InstructionsNo instructions recorded. Reason for Referral None Reported. Results Created Date Observation Date Name Description Value Unit Range Abnormal Flag LastModifiedBy Organization Detail LastModifiedTime 05/12/2021 urina lysis , dipst ick Color-Status Yellow Not Available [facility] [address], [place], [address], 05/12/2021 11:33:40 05/12/2021 urina lysis , dipst ick Clarity-Stat us Cloudy Not Available [facility] [address], [place], [address], 05/12/2021 11:33:40 05/12/2021 urina lysis , dipst ick pH-Status 7.5 Not Available [facility] [address], [place], [address], 05/12/2021 11:33:40 05/12/2021 urina lysis , dipst ick Nitrates-Sta tus positi ve Not Available [facility] [address], [place], [address], 05/12/2021 11:33:40 05/12/2021 urina lysis , dipst ick Blood-Status Small Not Available [facility] [address], [place], [address], 05/12/2021 11:33:40 05/12/2021 urina lysis , dipst ick Leuko-Status Large Not Available [facility] [address], [place], [address], 05/12/2021 11:33:40 02/18/2021 urina lysis , dipst ick Color-Status Straw Not Available [facility] [address], [place], [address], 02/18/2021 14:44:35 02/18/2021 urina lysis , dipst ick Clarity-Stat us Cloudy Not Available [facility] [address], [place], [address], 02/18/2021 14:44:35 02/18/2021 urina lysis , dipst ick Glucose-Stat us Negati ve Not Available [facility] [address], [place], [address], 02/18/2021 14:44:35 02/18/2021 urina lysis , dipst ick Bilirubin-St atus Negati ve Not Available [facility] [address], [place], [address], 02/18/2021 14:44:35 02/18/2021 urina lysis , dipst ick Ketones-Stat us Negati ve Not Available [facility] [address], [place], [address], 02/18/2021 14:44:35 02/18/2021 urina lysis , dipst ick Sp Simpson-Stat us 1.015 Not Available [facility] [address], [place], [address], 02/18/2021 14:44:35 02/18/2021 urina lysis , dipst ick Nitrates-Sta tus positi ve Not Available [facility] [address], [place], [address], 02/18/2021 14:44:35 02/18/2021 urina lysis , dipst ick Blood-Status Trace Not Available [facility] [address], [place], [address], 02/18/2021 14:44:35 02/18/2021 urina lysis , dipst ick Leuko-Status Large Not Available [facility] [address], [place], [address], 02/18/2021 14:44:35 02/19/20 21 02/18/2021 URINE CULTU RE final report microb iology result s abnormal Not Available [facility] [address], [place], [address], 02/20/2021 09:38:14 05/06/20 21 05/06/2021 URINE CULTU RE final report microb iology result s abnormal Not Available [facility] [address], [place], [address], 05/08/2021 07:39:35 10/07/19 22 10/05/2021 US, Varsha anthony ation record ed. [email or web address] [facility] [address] [place], [address], 09/28/2022 13:47:50 Result Notes None recorded. Procedures Surgical History Date Name Laterality Status Provider Name and Address Organization Details Recorded Time excision of pressure injury completed Jono Pagan MD [address] [facility],[address], [place], [address], [facility] 09/28/2022 11:00:08 Imaging Results Imaging Date Name Status LastModified by Organiz ation Details LastModified Time 10/05/2021 US, kidney completed [email or web address] [facility] [address] [place], [address], 09/28/2022 13:47:50 Procedure Notes None recorded. Medical Equipment None Reported. Allergies Allergen ID Allergen Name Allergen Category Reaction Reaction Severity Criticality Documentation Date Start Date Code Code System Note Provider Name and Address Organization Details Recorded Time 916228 Medicinal product containin g cephalosp pao and acting as antibacte rial agent (product) medicatio n Not available Not available Not available 09/27/2021 [id number] SNOMED Nasreen Maritza hwang [facility] 12:43:20 Medications Name Sig Start Date Stop Date Status Note LastModified by Organization Details LastModified Time propantheli ne 15 mg tablet TAKE 2 TABLETS BY MOUTH THREE TIMES DAILY 02/18 completed Not Available Not Available Not Available Santyl 250 unit/gram topical ointment APPLY TO RLE WOUNDS NEEDED 09/28 completed Not Available Not Available Not Available fluconazole 100 mg tablet TAKE 1 TABLET BY MOUTH EVERY DAY 09/28 completed Not Available Not Available Not Available nitrofurant oin macrocrysta l 50 mg capsule TAKE 1 CAPSULE BY MOUTH EVERY DAY active Not Available Not Available No t Available oxybutynin chloride ER 15 mg tablet,exte nded release 24 hr TAKE 1 TABLET BY MOUTH TWICE DAILY active Not Available Not Available No t Available doxycycline hyclate 100 mg capsule TAKE 1 CAPSULE BY MOUTH TWICE DAILY FOR 10 DAYS 02/18 completed Not Available Not Available Not Available oxybutynin chloride ER 10 mg tablet,exte nded release 24 hr TAKE 1 TABLET BY MOUTH ONCE DAILY 02/18 completed Not Available Not Available Not Available ampicillin 500 mg capsule TK 1 C PO TID TAT 02/18 completed Not Available Not Available Not Available clopidogrel 75 mg tablet TAKE 1 TABLET BY MOUTH ONCE DAILY 09/27 completed Not Available Not Available Not Available ciprofloxac in 500 mg tablet TAKE 1 TABLET BY MOUTH TWICE DAILY 04/28 completed Not Available Not Available Not Available sulfamethox azole 800 mg-trimetho prim 160 mg tablet TAKE 1 TABLET BY MOUTH EVERY 12 HOURS FOR 10 DAYS 09/27 completed Not Available Not Available Not Available hydrocodone 10 mg-acetamin ophen 325 mg tablet TAKE 1 TABLET BY MOUTH EVERY 6 HOURS NEEDED FOR PAIN 04/28 completed Not Available Not Available Not Available aspirin 81 mg tablet,peng yed release TAKE 1 TABLET BY MOUTH ONCE DAILY WITH A MEAL 09/27 completed Not Available Not Available Not Available methenamine hippurate 1 gram tablet TAKE 1 TABLET BY MOUTH TWICE DAILY FOR THE FIRST 3 DAYS OF EACH MONTH active Not Available Not Available No t Available amoxicillin 875 mg tablet TAKE 1 TABLET BY MOUTH TWICE DAILY FOR 10 DAYS 02/18 completed Not Available Not Available Not Available linezolid 600 mg tablet TAKE 1 TABLET BY MOUTH TWICE DAILY FOR 6 WEEKS 04/28 completed Not Available Not Available Not Available doxycycline monohydrate 100 mg capsule TAKE 1 CAPSULE BY MOUTH TWICE DAILY 09/28 completed Not Available Not Available Not Available diclofenac sodium 75 mg tablet,peng yed release TAKE 1 TABLET BY MOUTH TWICE DAILY NEEDED FOR MODERATE PAIN 04/28 completed Not Available Not Available Not Available lorazepam 1 mg tablet 04/28 completed Not Available Not Available Not Available levofloxaci n 500 mg tablet TAKE 1 TABLET BY MOUTH ONCE A DAY FOR 10 DAYS 09/27 completed Not Available Not Available Not Available doxycycline hyclate 100 mg tablet TAKE 1 TABLET BY MOUTH TWICE DAILY UNTIL GONE 04/28 completed Not Available Not Available Not Available amoxicillin 875 mg-potassiu m clavulanate 125 mg tablet TAKE 1 TABLET BY MOUTH TWICE DAILY 04/28 completed Not Available Not Available Not Available neomycin-po lymyxin-hyd rocort 3.5 mg-10,000 unit/mL-1 % ear drops,susp INSTILL 4 DROPS IN AFFECTED EAR(S) FOUR TIMES DAILY 02/18 completed Not Available Not Available Not Available Dakin's Solution 0.25 % 09/28 completed Not Available Not Available Not Available Vitals Date Recorded Body height Body mass index (BMI) Body weight Provider Name and Address Organization Details Last Updated DateTime 09/28/2022 182.88 cm 19.4 kg/m2 06766.71 g Veronika Begum [facility] 09/28/2022 10:55:01 Date Recorded Body height Body mass index (BMI) Body weight Provider Name and Address Organization Details Last Updated DateTime 04/28/2023 182.88 cm 19.4 kg/m2 31308.71 g Mindy Solitariodivyacarmen [facility] 04/28/2023 11:39:29 Date Recorded Body height Body mass index (BMI) Body weight Provider Name and Address Organization Details Last Updated DateTime 02/18/2021 182.88 cm 19.4 kg/m2 22492.71 g Atilio Caban [facility] 02/18/2021 14:51:29 Date Recorded Body height Body mass index (BMI) Body weight Provider Name and Address Organization Details Last Updated DateTime 05/06/2021 182.88 cm 19.4 kg/m2 07175.71 g Chelsea Joejacob [facility] 05/06/2021 12:47:45 Date Recorded Body height Body mass index (BMI) Body weight Provider Name and Address Organization Details Last Updated DateTime 09/27/2021 182.88 cm 19.4 kg/m2 20662.71 g Nasreen Salas [facility] 09/27/2021 12:43:07 Social History Question Answer Notes LastModified by Organizat ion Details LastModified Time Tobacco Smoking Status Former Smoker Atilio Adamepau [facility] 02/18/2021 14:55:09 What Is Your Level Of Alcohol Consumption? Occasional Information not available 02/18/2021 What Is Your Level Of Caffeine Consumption? Moderate Information not available 02/18/2021 When Did You Quit Smoking? 16+yearsyeni valderrama Information not available 02/18/2021 What Was The Date Of Your Most Recent Tobacco Screening? 04/28/2023 [email or web address] Information not available 04/28/2023 How Many Years Have You Smoked Tobacco? 33 Information not available 02/18/2021 Do You Or Have You Ever Used Any Other Forms Of Tobacco Or Nicotine? No Information not available 02/18/2021 Sex: Male Functional Status None recorded. Mental Status None recorded. Family History Relationship Description Onset Age of this Age Resolved Age Notes Mother Family history of ca rdiac disorder Mother Family history of Hypertension Brother Family history of ca rdiac disorder Father Family history of ca rdiac disorder Father Family history of Hypertension Medical History Condition Response Sexually Transmitted Infection N Diabetes N Other N Bleeding Disorder N High Blood Pressure N Kidney Stones N High Cholesterol N GERD/Acid Reflux N Heart Disease N Cancer N Lung Disease N Depression N Immunizations Vaccine Type Date Status Provider Name and Address Organization Details Recorded Time IPV 11/19/2004 completed Mindy hwang [facility] 04/28/2023 11:39:35 COVID-19, mRNA, LNP-S, PF, 30 mcg/0.3 mL dose 08/20/2020 completed Mindy hwang [facility] 04/28/2023 11:39:35 COVID-19, mRNA, LNP-S, PF, 30 mcg/0.3 mL dose 09/14/2020 completed Mindy hwang [facility] 04/28/2023 11:39:35 Pneumococcal conjugate PCV20, polysaccharide ITJ260 conjugate, adjuvant, PF 12/01/2022 completed Mindy hwang [facility] 04/28/2023 11:39:35 influenza, unspecified formulation 05/24/2006 completed Mindy hwang [facility] 04/28/2023 11:39:35 Tdap 09/01/2006 completed Mindy hwang [facility] 04/28/2023 11:39:35 Tdap 12/26/2008 completed Mindy hwang [facility] 04/28/2023 11:39:35 zoster live 01/29/2015 completed Mindy hwang [facility] 04/28/2023 11:39:35 Influenza, seasonal, injectable, preservative free 03/25/2011 completed Mindy hwang [facility] 04/28/2023 11:39:35 Influenza, seasonal, injectable, preservative free 05/24/2012 completed Mindy hwang [facility] 04/28/2023 11:39:35 Td (adult), 2 Lf tetanus toxoid, preservative free, adsorbed 03/21/1997 completed [facility] 04/28/2023 11:39:35 Hep B, adult 09/01/2006 completed Mindy Malone null, [facility] 04/28/2023 11:39:35 Hep B, adult 11/19/2004 completed Mindycarlos Solitariodivyaauer null, [facility] 04/28/2023 11:39:35 Hep B, adult 03/30/2007 completed Mindy Fariasauer null, [facility] 04/28/2023 11:39:35 Hep A, adult 09/30/2002 completed Mindy Osterbauer null, [facility] 04/28/2023 11:39:35 Hep A, adult 11/19/2004 completed Mindy Malone null, [facility] 04/28/2023 11:39:35 Hep A, adult 05/01/2003 completed Mindy Malone null, [facility] 04/28/2023 11:39:35 typhoid, ViCPs 09/01/2006 completed Mindy Malone null, [facility] 04/28/2023 11:39:35 typhoid, ViCPs 09/30/2002 completed Mindycarlos Solitarioalice null, [facility] 04/28/2023 11:39:35 Past Encounters Encounter ID Performer Location Encounter Start Date Encounter Closed Date Diagnosis/Indication [id number] MD [facility] [address] [place] [address] 02/18/2021 14:23:42 02/19/2021 12:13:21 Neurogenic bladder Spinal cord injury Spasm of bladder Recurrent urinary tract infection Acute urinary tract infection [id number] Marlene [facility]er [facility] [address] [place] [address] 05/06/2021 11:58:15 05/11/2021 03:52:30 Abnormal urine [id number] MD [facility] [address] [place] [address] 09/27/2021 12:37:54 10/27/2021 09:29:43 Neurogenic bladder Spinal cord injury Spasm of bladder Recurrent urinary tract infection [id number] MD [facility] [address] [place] [address] 09/28/2022 10:53:21 10/01/2022 11:26:52 Neurogenic bladder Spinal cord injury Spasm of bladder Recurrent urinary tract infection [id number] Jono Pagan MD [facility] [address] [place] [address] 04/28/2023 11:30:11 05/04/2023 11:13:13 Neurogenic bladder Spinal cord injury Spasm of bladder Recurrent urinary tract infection Health Concerns Section Related Observation LastModified by Organization Detai ls LastModified Time None Recorded Concern Status LastModified by Organization Details LastModified Time None Recorded Advance Directives Directive None Recorded Payers Encounter Date Sequence Insurance Name Policy Number Policy Quinones Covered Member ID Quinones Member ID Guarantor Name 04/28/2023 1 [facility] (MEDICARE REPLACEMENT/AD VANTAGE - PPO) [id number] Khanh Rene [id number] Khanh C Edgard 09/28/2022 [facility] [employer] [id number] [employer] Khanh C Edgard 09/27/2021 1 [facility] (MEDICARE REPLACEMENT/AD VANTAGE - PPO) [id number] Khanh C Edgard [id number] Khanh C Edgard 05/06/2021 [facility] [employer] [id number] [employer] Khanh C Edgard 02/18/2021 [facility] [employer] [id number] [facility] Khanh C Edgard Notes Date Note Type Note Provider Name and Address Organization Details Recorded Time 02/18/2021 text/html HPI Notes: 65 yo M with history of spinal cord injury and resultant neurogenic bladder managed with daily CIC regimen. Also utilizes anticholinergics to control bladder spasms. Here for follow up. Since his last visit he reports that he has overall been doing well; however has been struggling with recurrent urinary tract infections. He reports three infections in the last 6 months. He reports that he was maintained on suppressive nitrofurantoin in the past and would like to resume that if possible. His UTI symptoms consist of cloudy, foul-smelling urine, and occasional low grade fever. Jono Pagan MD [address] [facility],[address], [place], [address], [facility] 02/18/2021 22:42:35 05/06/2021 text/html HPI Notes: Pt he re for UA/UC due to low back ache, cloudy urine with sediment present X 1.5 weeks. pt given cipro 500mg BID pending culture. 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 Also utilizes anticholinergics to control bladder spasms. Here for follow up. Since his last visit he reports that he has overall been doing well; however has been struggling with recurrent urinary tract infections. He reports three infections in the last 6 months. He reports that he was maintained on suppressive nitrofurantoin in the past and would like to resume that if possible. His UTI symptoms consist of cloudy, foul-smelling urine, and occasional low grade fever. 09/27/2021: Here for follow up history of spinal cord injury and resultant neurogenic bladder managed with daily CIC regimen and anticholinergic. Issues with recurrent UTIs, on Nitrofurantoin ppx. Only one infection over last 7 months. Jono Pagan MD [address] [place] [address],[address], [place], [address], [facility] 09/27/2021 13:13:14 09/28/2022 text/html HPI Notes: 67 yo M with history of spinal cord injury and resultant neurogenic bladder managed with daily CIC regimen. Also utilizes anticholinergics to control bladder spasms. Here for follow up. Since his last visit he reports that he has overall been doing well; however has been struggling with recurrent urinary tract infections. He reports three infections in the last 6 months. He reports that he was maintained on suppressive nitrofurantoin in the past and would like to resume that if possible. His UTI symptoms consist of cloudy, foul-smelling urine, and occasional low grade fever. 09/27/2021: Here for follow up history of spinal cord injury and resultant neurogenic bladder managed with daily CIC regimen and anticholinergic. Issues with recurrent UTIs, on Nitrofurantoin ppx. Only one infection over last 7 months. 09/28/2022: Here for follow up history of spinal cord injury and resultant neurogenic bladder managed with daily CIC regimen and anticholinergic. Doing very well. One yeast UTI since last visit. Renal US reviewed with no upper tract abnormality. Jono Pagan MD [address] [facility],[address], [place], [address], [facility] 09/28/2022 13:48:55 04/28/2023 text/html HPI Notes: 68 yo M with history of spinal cord injury and resultant neurogenic bladder managed with daily CIC regimen. Also utilizes anticholinergics to control bladder spasms. Here for follow up. Since his last visit he reports that he has overall been doing well; however has been struggling with recurrent urinary tract infections. He reports three infections in the last 6 months. He reports that he was maintained on suppressive nitrofurantoin in the past and would like to resume that if possible. His UTI symptoms consist of cloudy, foul-smelling urine, and occasional low grade fever. 09/27/2021: Here for follow up history of spinal cord injury and resultant neurogenic bladder managed with daily CIC regimen and anticholinergic. Issues with recurrent UTIs, on Nitrofurantoin ppx. Only one infection over last 7 months. 09/28/2022: Here for follow up history of spinal cord injury and resultant neurogenic bladder managed with daily CIC regimen and anticholinergic. Doing very well. One yeast UTI since last visit. Renal US reviewed with no upper tract abnormality. 04/28/2023: Here for follow up history of spinal cord injury and resultant neurogenic bladder managed with daily CIC regimen and anticholinergic. Today reports overall he is doing well. He has had two UTIs since the summer. Jono Pagan MD [address] [facility],[address], [place], [address], [facility] 04/28/2023 12:27:52
== END 2023-08-14 07:53 | disposition home or self-care (01) ==
LOC: WOUND 07:52
PROVIDERS: PCP Family Medicine; Visit Provider Nurse Practitioner Family
DX: M86.68 Other chronic osteomyelitis, other site (principal); L89.314 Pressure ulcer of right buttock, stage 4; L89.614 Pressure ulcer of right heel, stage 4; L89.514 Pressure ulcer of right ankle, stage 4; L89.894 Pressure ulcer of other site, stage 4; L89.893 Pressure ulcer of other site, stage 3; Z99.3 Dependence on wheelchair
CPT/HCPCS: 11042; 97597; G0277

== ENCOUNTER 2023-08-15 10:51 | Outpatient (CLI) | payer MEDICARE, SELFPAY ==
--- OUTSIDE RECORDS SUMMARY | 2023-08-18 14:51 | XMS_ITS | Clinical Summary ---
Author Name Unknown Organization [facility] Address [place], [place] [address] Care Team Providers Care Machine Tool Rebuilder Name Role Phone Talib Ana Unavailable Alex Mata MD Primary Care Provider + Allergies Active Allergy Reactions Criticality Noted Date Comments Blood-Group Specific Substance Other - Describe In Comment Field 04/19/2021 Patient has Sims a (Fya) antibody. Blood products may be delayed. Draw patient 24 hours prior to transfusion. For Centro testing, draw one red top and two [...] Comments Blood Pressure 82/58 08/24/2022 10:22 AM COMPOUNDER HELPER Pulse 103 08/24/2022 10:22 AM COMPOUNDER HELPER Temperature 35.2 ??C (95.4 ??F) 04/19/2021 7:02 AM CD T Respiratory Rate 18 08/24/2022 10:22 AM COMPOUNDER HELPER Oxygen Saturation 100% 08/24/2022 10:22 AM COMPOUNDER HELPER Inhaled Oxygen Concentration - - Weight 62.6 [...] 12/26/2008, 09/01/2006 Medical Devices Implanted Type Area Whiting Can Worker Device Identifier Shelf Expiration Date Model / Serial / Lot Standard Pacemaker-12/21 Implanted:11/23 by Judson Jenkins MD (Quantity not on file) Standard Pacemaker Med[employer]onic [id number] / [id number] / Additional Health Concerns Infection Onset Date [...] 12 months since positive culture): resides in acute/correction care, receiving hemodialysis, has chronic open wounds/skin [...] 3:46 PM 12/16/2015 12:49 PM Care Teams Machine Tool Rebuilder Relationship Specialty Start Date End Date Alex Mata MD [address] [place] [address] PCP - General Family Practice 02/04/[address] [place] [address] Nurse Practitioner 03/02/11
--- OUTSIDE RECORDS SUMMARY | 2023-08-18 14:51 | XMS_ITS | Data Portability ---
Author Name Unknown Address [address] [place] [address] Phone [phone] Organization [facility], [facility] Address [address] [place] [address] Care Team Providers Care Guillotine Trimmer Name Role Phone CHETNA MERAZ Primary Care Provider ANTHONY JUAREZ Cracking Still Operator Assessment Encounter Date Assessment Date Assessment LastModified [...] Not available Lab culture, urine 2020 021 [facility], [address], [place], [address], 05/08/2021 07:39:35 urinalysi s, dipstick 2020 021 kneubert Not available 05/12/2021 11:34:22 urinalysi s, dipstick 2020 [email or web address] Not available 02/18/2021 14:48:24 culture, urine 2020 [facility], [address], [address], [place], [address], 02/20/2021 09:38:15 Referral None recorded. Procedures None recorded. Surgeries None recorded. Imaging US, kidney 2021 [facility], [address] [place], [address], 10/06/2021 09:00:29 Medication Orders oxybutyni n chloride ER 15 mg tablet,ex tended release 24 hr 2022 023 [id number], [address] [facility], [id number], 04/28/2023 12:15:06 methenami ne hippurate 1 gram tablet 2022 023 [facility] #51127, [address] , [place], [place], [id number], 04/28/2023 12:31:06 nitrofura ntoin macrocrys tori 50 mg capsule 2022 023 [facility] #30623, [address] , [place], [place], [id number], 09/28/2022 13:48:42 oxybutyni n chloride ER 15 mg tablet,ex tended release 24 hr 2021 022 [facility] #40739, [address] [place], [place], [id number], 09/27/2021 12:53:22 nitrofura ntoin macrocrys tori 50 mg capsule 2021 022 [facility] #48489, [address] , [place], [place], [id number], 09/27/2021 12:53:21 Bactrim DS 800 mg-160 mg tablet [address] [facility], [address] [place] [address], [address], 09/27/2021 12:43:46 nitrofura ntoin macrocrys tori 50 mg capsule 2020 021 [facility], [address] [place] [address], [address], 02/18/2021 15:02:39 Patient TargetsNo targets recorded. Patient InstructionsNo instructions recorded. Reason for Referral None Reported. Results Created Date Observation Date Name Description Value Unit Range Abnormal Flag LastModifiedBy Organization Detail LastModifiedTime 05/12/2021 urina lysis , dipst ick Color-Status Yellow Not Available [facility] [address], [place], [address], 05/12/2021 11:33:40 05/12/2021 urina lysis , dipst ick Clarity-Stat us Cloudy Not Available [facility] [address], [place], [address], 05/12/2021 11:33:40 05/12/2021 urina lysis , dipst ick pH-Status 7.5 Not Available [facility] [address], [place], [address], 05/12/2021 11:33:40 05/12/2021 urina lysis , dipst ick Nitrates-Sta tus positi ve Not Available [facility] [address], [place], [address], 05/12/2021 11:33:40 05/12/2021 urina lysis , dipst ick Blood-Status Small Not Available [facility] [address], [place], [address], 05/12/2021 11:33:40 05/12/2021 urina lysis , dipst ick Leuko-Status Large Not Available [facility] [address], [place], [address], 05/12/2021 11:33:40 02/18/2021 urina lysis , dipst ick Color-Status Straw Not Available [facility] [address], [place], [address], 02/18/2021 14:44:35 02/18/2021 urina lysis , dipst ick Clarity-Stat us Cloudy Not Available [facility] [address], [place], [address], 02/18/2021 14:44:35 02/18/2021 urina lysis , dipst ick Glucose-Stat us Negati ve Not Available [facility] [address], [place], [address], 02/18/2021 14:44:35 02/18/2021 urina lysis , dipst ick Bilirubin-St atus Negati ve Not Available [facility] [address], [place], [address], 02/18/2021 14:44:35 02/18/2021 urina lysis , dipst ick Ketones-Stat us Negati ve Not Available [facility] [address], [place], [address], 02/18/2021 14:44:35 02/18/2021 urina lysis , dipst ick Sp [place]-Stat us 1.015 Not Available [facility] [address], [place], [address], 02/18/2021 14:44:35 02/18/2021 urina lysis , dipst ick Nitrates-Sta tus positi ve Not Available [facility] [address], [place], [address], 02/18/2021 14:44:35 02/18/2021 urina lysis , dipst ick Blood-Status Trace Not Available [facility] [address], [place], [address], 02/18/2021 14:44:35 02/18/2021 urina lysis , dipst ick Leuko-Status Large Not Available [facility] [address], [place], [address], 02/18/2021 14:44:35 02/19/20 21 02/18/2021 URINE CULTU RE final report microb iology result s abnormal Not Available [facility] [address], [place], [address], 02/20/2021 09:38:14 05/06/20 21 05/06/2021 URINE CULTU RE final report microb iology result s abnormal Not Available [facility] [address], [place], [address], 05/08/2021 07:39:35 10/07/19 22 10/05/2021 US, Varsha anthony ation record ed. [email or web address] [facility] [address] [place], [address], 09/28/2022 13:47:50 Result Notes None recorded. Procedures Surgical History Date Name Laterality Status Provider Name and Address Organization Details Recorded Time excision of pressure injury completed Jono Pagan MD [address], [place], [address], [facility] 09/28/2022 11:00:08 Imaging Results Imaging Date Name Status LastModified by Organiz ation Details LastModified Time 10/05/2021 US, kidney completed [email or web address] [facility] [address] [place], [address], 09/28/2022 13:47:50 Procedure Notes None recorded. Medical Equipment None Reported. Allergies Allergen ID Allergen Name Allergen Category Reaction Reaction Severity Criticality Documentation Date Start Date Code Code System Note Provider Name and Address Organization Details Recorded Time 175526 Medicinal product containin g cephalosp pao and acting as antibacte rial agent (product) medicatio n Not available Not available Not available 09/27/2021 [id number] SNOMED Nasreen Maritza hwang [facility] 12:43:20 Medications Name Sig Start Date [...] Updated DateTime 09/28/2022 182.88 cm 19.4 kg/m2 36150.71 g Veronika Begum [facility] 09/28/2022 10:55:01 Date Recorded Body height Body mass index (BMI) Body weight Provider Name and Address Organization Details Last Updated DateTime 04/28/2023 182.88 cm 19.4 kg/m2 16923.71 g Mindy Solitariodivyacarmen [facility] 04/28/2023 11:39:29 Date Recorded Body height Body mass index (BMI) Body weight Provider Name and Address Organization Details Last Updated DateTime 02/18/2021 182.88 cm 19.4 kg/m2 44737.71 g Atilio Caban [facility] 02/18/2021 14:51:29 Date Recorded Body height Body mass index (BMI) Body weight Provider Name and Address Organization Details Last Updated DateTime 05/06/2021 182.88 cm 19.4 kg/m2 56009.71 g Chelsea Joejacob [facility] 05/06/2021 12:47:45 Date Recorded Body height Body mass index (BMI) Body weight Provider Name and Address Organization Details Last Updated DateTime 09/27/2021 182.88 cm 19.4 kg/m2 75450.71 g Nasreen Salas [facility] 09/27/2021 12:43:07 Social History Question Answer Notes LastModified by Organizat ion Details LastModified Time Tobacco Smoking Status Former Smoker Atilio Adamepau [facility] 02/18/2021 14:55:09 What Is Your Level [...] history of Hypertension Medical History Condition Response Other N High Blood Pressure N Kidney Stones N Lung Disease N Depression N GERD/Acid Reflux N Diabetes N Sexually Transmitted Infection N Bleeding Disorder N Cancer N High Cholesterol N Heart Disease N Immunizations Vaccine Type Date Status Provider Name and Address Organization Details Recorded Time IPV 11/19/2004 completed Mindy hwang [facility] 04/28/2023 11:39:35 COVID-19, mRNA, LNP-S, PF, 30 mcg/0.3 mL dose 08/20/2020 completed Mindy hwang [facility] 04/28/2023 11:39:35 COVID-19, mRNA, LNP-S, PF, 30 mcg/0.3 mL dose 09/14/2020 completed Mindy hwang [facility] 04/28/2023 11:39:35 Pneumococcal conjugate PCV20, polysaccharide [id number] conjugate, adjuvant, PF 12/01/2022 completed Mindy hwang [facility] 04/28/2023 11:39:35 influenza, unspecified formulation 05/24/2006 completed Mindy hwang [facility] 04/28/2023 11:39:35 Tdap 09/01/2006 completed Mindy hwang [facility] 04/28/2023 11:39:35 Tdap 12/26/2008 completed Mindy hwang [facility] 04/28/2023 11:39:35 zoster live 01/29/2015 completed Mindy hwang [facility] 04/28/2023 11:39:35 Influenza, seasonal, injectable, preservative free 03/25/2011 completed Mindy hwang [facility] 04/28/2023 11:39:35 Influenza, seasonal, injectable, preservative free 05/24/2012 completed Mindy hwang [facility] 04/28/2023 11:39:35 Td (adult), 2 Lf tetanus toxoid, preservative free, adsorbed 03/21/1997 [facility] 04/28/2023 11:39:35 Hep B, adult 09/01/2006 completed Mindy Malone null, [facility] 04/28/2023 11:39:35 Hep B, adult 11/19/2004 completed Mindycarlos Solitariodivyaauer null, [facility] 04/28/2023 11:39:35 Hep B, adult 03/30/2007 completed Mindy Fariasauer null, [facility] 04/28/2023 11:39:35 Hep A, adult 09/30/2002 completed Mindy Osterbauer null, [facility] 04/28/2023 11:39:35 Hep A, adult 11/19/2004 completed Mindy Malone null, [facility] 04/28/2023 11:39:35 Hep A, adult 05/01/2003 completed Mindy Malone null, [facility] 04/28/2023 11:39:35 typhoid, ViCPs 09/01/2006 completed Mindy Malone null, [facility] 04/28/2023 11:39:35 typhoid, ViCPs 09/30/2002 completed Mindycarlos Solitarioalice null, [facility] 04/28/2023 11:39:35 Past Encounters Encounter ID Performer Location Encounter Start Date Encounter Closed Date Diagnosis/Indication [id number] MD [facility]IKE [facility] [address] [place] [address] 02/18/2021 14:23:42 02/19/2021 12:13:21 Neurogenic bladder Spinal cord injury Spasm of bladder Recurrent urinary tract infection Acute urinary tract infection [id number] Marlene [facility]er [facility] [address] [place] [address] 05/06/2021 11:58:15 05/11/2021 03:52:30 Abnormal urine [id number] MD [facility] [address] [place] [address] 09/27/2021 12:37:54 10/27/2021 09:29:43 Neurogenic bladder Spinal cord injury Spasm of bladder Recurrent urinary tract infection [id number] MD [facility] [address] [place] [address] 09/28/2022 10:53:21 10/01/2022 11:26:52 Neurogenic bladder Spinal cord injury Spasm of bladder Recurrent urinary tract infection [id number] Jono Pagan MD [facility] [address] [place] [address] 04/28/2023 11:30:11 05/04/2023 11:13:13 Neurogenic bladder Spinal [...] Member ID Guarantor Name 04/28/2023 1 [facility] (MEDICARE REPLACEMENT/AD VANTAGE - PPO) [id number] Khanh Rene [id number] [facility] [place] 09/28/2022 [facility] [email or web address] [id number] Exepron [facility]h [facility] [place] 09/27/2021 1 [facility] (MEDICARE REPLACEMENT/AD VANTAGE - PPO) [id number] Khanh [facility] [place] [id number] [facility]h [facility] [place] 05/06/2021 [facility] [email or web address] [id number] Exepron Khanh [facility] [place] 02/18/2021 [facility] [email or web address] [id number] [facility] [employer] [facility] Khanh C [place] Notes Date Note Type [...] low grade fever. Jono Pagan MD [address], [place], [address], [facility] 02/18/2021 22:42:35 05/06/2021 text/html HPI Notes: Pt he re for UA/UC due to low back ache, cloudy urine with sediment present X 1.5 weeks. pt given cipro 500mg BID pending culture. KN, CLIENT HR MANAGER Marlene hwang [facility] 07/20/2021 14:23:40 09/27/2021 text/html HPI Notes: [...] over last 7 months. Jono Pagan MD [address] [place] [address],[address], [place], [address], [facility] 09/27/2021 13:13:14 09/28/2022 text/html HPI Notes: [...] upper tract abnormality. Jono Pagan MD [address], [place], [address], [facility] 09/28/2022 13:48:55 04/28/2023 text/html HPI Notes: [...] since the summer. Jono Pagan MD [address], [place], [address], [facility] 04/28/2023 12:27:52
== END 2023-08-15 10:52 | disposition home or self-care (01) ==
LOC: NFLDREF 08-18 14:49
PROVIDERS: PCP Family Medicine; Referring Provider Family Medicine; Visit Provider Family Medicine
DX: N39.0 Urinary tract infection, site not specified (principal); B96.5 Pseudomonas (aeruginosa) (mallei) (pseudomallei) as the cause of diseases classified elsewhere
CPT/HCPCS: 87086; 87186

== ENCOUNTER 2023-08-23 12:45 | Outpatient (RCR) | payer OTHER, SELFPAY | END 2023-08-23 23:59 | disposition home or self-care (01) | LOC: WOUND 12:45 | PROVIDERS: PCP Family Medicine; Visit Provider Nurse Practitioner Family | DX: M86.68 Other chronic osteomyelitis, other site (principal); L89.894 Pressure ulcer of other site, stage 4; L89.614 Pressure ulcer of right heel, stage 4; L89.314 Pressure ulcer of right buttock, stage 4; I73.9 Peripheral vascular disease, unspecified; N31.9 Neuromuscular dysfunction of bladder, unspecified; Z99.3 Dependence on wheelchair | CPT/HCPCS: 87070; 87086; 87186; G0277 ==

== ENCOUNTER 2023-08-28 10:53 | Outpatient (CLI) | payer OTHER, SELFPAY ==
--- OUTSIDE RECORDS SUMMARY | 2023-08-28 10:55 | XMS_ITS | Data Portability ---
Author Name Unknown Address [address] [place] [address] Phone [phone] Organization [facility], [facility] Address [address] [place] [address] Care Team Providers Care Electric Razor Assembler Name Role Phone CHETNA MERAZ Primary Care Provider ANTHONY JUAREZ Correctional Therapy Teacher [phone] Assessment Encounter Date Assessment Date Assessment LastModified [...] Not available Lab culture, urine 2020 021 [facility], [address], [place], [address], 05/08/2021 07:39:35 urinalysi s, dipstick 2020 021 kneubert Not available 05/12/2021 11:34:22 urinalysi s, dipstick 2020 bbeckers Not available 02/18/2021 14:48:24 culture, urine 2020 [facility], [address], [address], [place], [address], 02/20/2021 09:38:15 Referral None recorded. Procedures None recorded. Surgeries None recorded. Imaging US, kidney 2021 [facility], [address] [place], [address], 10/06/2021 09:00:29 Medication Orders oxybutyni n chloride ER 15 mg tablet,ex tended release 24 hr 2022 023 [facility] #[id number], [address] [facility], [place], [id number], 04/28/2023 12:15:06 methenami ne hippurate 1 gram tablet 2022 023 [facility] #[id number], [address] , [place], [place], [id number], 04/28/2023 12:31:06 nitrofura ntoin macrocrys tori 50 mg capsule 2022 023 [facility] #[id number], [address] , [place], [place], [id number], 09/28/2022 13:48:42 oxybutyni n chloride ER 15 mg tablet,ex tended release 24 hr 2021 022 [facility] #[id number], [address] [place], [place], [id number], 09/27/2021 12:53:22 nitrofura ntoin macrocrys tori 50 mg capsule 2021 022 [facility] #[id number], [address] , [place], [place], [id number], 09/27/2021 12:53:21 Bactrim DS 800 mg-160 mg tablet [address] [facility], [address] [place] [address], [address], 09/27/2021 12:43:46 nitrofura ntoin macrocrys tori 50 mg capsule 2020 021 [facility], [address] [place] [address], [address], 02/18/2021 15:02:39 Patient TargetsNo targets recorded. Patient InstructionsNo instructions recorded. Reason for Referral None Reported. Results Created Date Observation Date Name Description Value Unit Range Abnormal Flag LastModifiedBy Organization Detail LastModifiedTime 05/12/2021 urina lysis , dipst ick Color-Status Yellow Not Available [facility] [address], [place], [address], 05/12/2021 11:33:40 05/12/2021 urina lysis , dipst ick Clarity-Stat us Cloudy Not Available [facility] [address], [place], [address], 05/12/2021 11:33:40 05/12/2021 urina lysis , dipst ick pH-Status 7.5 Not Available [facility] [address], [place], [address], 05/12/2021 11:33:40 05/12/2021 urina lysis , dipst ick Nitrates-Sta tus positi ve Not Available [facility] [address], [place], [address], 05/12/2021 11:33:40 05/12/2021 urina lysis , dipst ick Blood-Status Small Not Available [facility] [address], [place], [address], 05/12/2021 11:33:40 05/12/2021 urina lysis , dipst ick Leuko-Status Large Not Available [facility] [address], [place], [address], 05/12/2021 11:33:40 02/18/2021 urina lysis , dipst ick Color-Status Straw Not Available [facility] [address], [place], [address], 02/18/2021 14:44:35 02/18/2021 urina lysis , dipst ick Clarity-Stat us Cloudy Not Available [facility] [address], [place], [address], 02/18/2021 14:44:35 02/18/2021 urina lysis , dipst ick Glucose-Stat us Negati ve Not Available [facility] [address], [place], [address], 02/18/2021 14:44:35 02/18/2021 urina lysis , dipst ick Bilirubin-St atus Negati ve Not Available [facility] [address], [place], [address], 02/18/2021 14:44:35 02/18/2021 urina lysis , dipst ick Ketones-Stat us Negati ve Not Available [facility] [address], [place], [address], 02/18/2021 14:44:35 02/18/2021 urina lysis , dipst ick Sp Bronson-Stat us 1.015 Not Available [facility] [address], [place], [address], 02/18/2021 14:44:35 02/18/2021 urina lysis , dipst ick Nitrates-Sta tus positi ve Not Available [facility] [address], [place], [address], 02/18/2021 14:44:35 02/18/2021 urina lysis , dipst ick Blood-Status Trace Not Available [facility] [address], [place], [address], 02/18/2021 14:44:35 02/18/2021 urina lysis , dipst ick Leuko-Status Large Not Available [facility] [address], [place], [address], 02/18/2021 14:44:35 02/19/20 21 02/18/2021 URINE CULTU RE final report microb iology result s abnormal Not Available [facility] [address], [place], [address], 02/20/2021 09:38:14 05/06/20 21 05/06/2021 URINE CULTU RE final report microb iology result s abnormal Not Available [facility] [address], [place], [address], 05/08/2021 07:39:35 10/07/19 22 10/05/2021 US, Varsha anthony ation record ed. [email or web address] [facility]iology Department [address] [place], [address], 09/28/2022 13:47:50 Result Notes None recorded. Procedures Surgical History Date Name Laterality Status Provider Name and Address Organization Details Recorded Time excision of pressure injury completed Jono Pagan MD [address], [place], [address], [facility] 09/28/2022 11:00:08 Imaging Results Imaging Date Name Status LastModified by Organiz ation Details LastModified Time 10/05/2021 US, kidney completed [email or web address] [facility] [address] [place], [address], 09/28/2022 13:47:50 Procedure Notes None recorded. Medical Equipment None Reported. Allergies Allergen ID Allergen Name Allergen Category Reaction Reaction Severity Criticality Documentation Date Start Date Code Code System Note Provider Name and Address Organization Details Recorded Time 685443 Medicinal product containin g cephalosp pao and acting as antibacte rial agent (product) medicatio n Not available Not available Not available 09/27/2021 15051 9009 SNOMED Nasreen Maritza hwang [facility] 12:43:20 Medications Name Sig Start Date [...] Updated DateTime 09/28/2022 182.88 cm 19.4 kg/m2 61302.[address] [facility] 09/28/2022 10:55:01 Date Recorded Body height Body mass index (BMI) Body weight Provider Name and Address Organization Details Last Updated DateTime 04/28/2023 182.88 cm 19.4 kg/m2 30882.[address] [facility] 04/28/2023 11:39:29 Date Recorded Body height Body mass index (BMI) Body weight Provider Name and Address Organization Details Last Updated DateTime 02/18/2021 182.88 cm 19.4 kg/m2 39958.[address] [facility] 02/18/2021 14:51:29 Date Recorded Body height Body mass index (BMI) Body weight Provider Name and Address Organization Details Last Updated DateTime 05/06/2021 182.88 cm 19.4 kg/m2 05707.[address] [facility] 05/06/2021 12:47:45 Date Recorded Body height Body mass index (BMI) Body weight Provider Name and Address Organization Details Last Updated DateTime 09/27/2021 182.88 cm 19.4 kg/m2 [address]1184.[address] [facility] 09/27/2021 12:43:07 Social History Question Answer Notes LastModified by Organizat ion Details LastModified Time Tobacco Smoking Status Former Smoker Atilio Adamepau [facility] 02/18/2021 14:55:09 What Is Your Level [...] history of Hypertension Medical History Condition Response Diabetes N Sexually Transmitted Infection N Bleeding Disorder N Other N High Blood Pressure N Kidney Stones N Cancer N Depression N Lung Disease N High Cholesterol N GERD/Acid Reflux N Heart Disease N Immunizations Vaccine Type Date Status Provider Name and Address Organization Details Recorded Time IPV 11/19/2004 completed Mindy hwang [facility] 04/28/2023 11:39:35 COVID-19, mRNA, LNP-S, PF, 30 mcg/0.3 mL dose 08/20/2020 completed Mindy hwang [facility] 04/28/2023 11:39:35 COVID-19, mRNA, LNP-S, PF, 30 mcg/0.3 mL dose 09/14/2020 completed Mindy hwang [facility] 04/28/2023 11:39:35 Pneumococcal conjugate PCV20, polysaccharide [id number] conjugate, adjuvant, PF 12/01/2022 completed Mindy hwang [facility] 04/28/2023 11:39:35 influenza, unspecified formulation 05/24/2006 completed Mindy hwang [facility] 04/28/2023 11:39:35 Tdap 09/01/2006 completed Mindy hwang [facility] 04/28/2023 11:39:35 Tdap 12/26/2008 completed Mindy hwang [facility] 04/28/2023 11:39:35 zoster live 01/29/2015 completed Mindy hwang [facility] 04/28/2023 11:39:35 Influenza, seasonal, injectable, preservative free 03/25/2011 completed Mindy hwang [facility] 04/28/2023 11:39:35 Influenza, seasonal, injectable, preservative free 05/24/2012 completed Mindy hwang [facility] 04/28/2023 11:39:35 Td (adult), 2 Lf tetanus toxoid, preservative free, adsorbed 03/21/1997 completed [facility] 04/28/2023 11:39:35 Hep B, adult 09/01/2006 completed Mindy Malone null, [facility] 04/28/2023 11:39:35 Hep B, adult 11/19/2004 completed Mindycarlos Solitariodivyaauer null, [facility] 04/28/2023 11:39:35 Hep B, adult 03/30/2007 completed Mindy Fariasauer null, [facility] 04/28/2023 11:39:35 Hep A, adult 09/30/2002 completed Mindy Osterbauer null, [facility] 04/28/2023 11:39:35 Hep A, adult 11/19/2004 completed Mindy Malone null, [facility] 04/28/2023 11:39:35 Hep A, adult 05/01/2003 completed Mindy Malone null, [facility] 04/28/2023 11:39:35 typhoid, ViCPs 09/01/2006 completed Mindy Malone null, [facility] 04/28/2023 11:39:35 typhoid, ViCPs 09/30/2002 completed Mindycarlos Solitarioalice null, [facility] 04/28/2023 11:39:35 Past Encounters Encounter ID Performer Location Encounter Start Date Encounter Closed Date Diagnosis/Indication [id number] MD KIKE [facility] [address] [place] [address] 02/18/2021 14:23:42 02/19/2021 12:13:21 Neurogenic bladder Spinal cord injury Spasm of bladder Recurrent urinary tract infection Acute urinary tract infection [id number] Marlene [facility]er [facility] [address] [place] [address] 05/06/2021 11:58:15 05/11/2021 03:52:30 Abnormal urine [id number] MD [facility] [address] [place] [address] 09/27/2021 12:37:54 10/27/2021 09:29:43 Neurogenic bladder Spinal cord injury Spasm of bladder Recurrent urinary tract infection [id number] MD [facility] [address] [place] [address] 09/28/2022 10:53:21 10/01/2022 11:26:52 Neurogenic bladder Spinal cord injury Spasm of bladder Recurrent urinary tract infection [id number] Jono Pagan MD [facility] [address] [place] [address] 04/28/2023 11:30:11 05/04/2023 11:13:13 Neurogenic bladder Spinal [...] Quinones Member ID Guarantor Name 04/28/2023 1 [facility] (MEDICARE REPLACEMENT/AD VANTAGE - PPO) [id number] Khanh Rene [id number] [employer] [facility] [place] 09/28/2022 [facility] [employer] [id number] [employer] Khanh C [place] 09/27/2021 1 [facility] (MEDICARE REPLACEMENT/AD VANTAGE - PPO) [id number] [employer]h [employer] [place] [id number] [employer] [place] 05/06/2021 [facility] [employer] [id number] [employer] [place] 02/18/2021 [facility] [employer] [id number] [facility] Khanh C [place] Notes Date Note Type [...] low grade fever. Jono Pagan MD [address], [place], [address], [facility] 02/18/2021 22:42:35 05/06/2021 text/html HPI Notes: Pt he re for UA/UC due to low back ache, cloudy urine with sediment present X 1.5 weeks. pt given cipro 500mg BID pending culture. 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 Jono Pagan MD [address] [place] [address],[address], [address], [facility] 09/27/2021 13:13:14 09/28/2022 text/html [...] upper tract abnormality. Jono Pagan MD [address], [place], [address], [facility] 09/28/2022 13:48:55 04/28/2023 text/html [...] since the summer. Jono Pagan MD [address], [place], [address], [facility] 04/28/2023 12:27:52
--- OUTSIDE RECORDS SUMMARY | 2023-08-28 10:55 | XMS_ITS | Clinical Summary ---
Author Name Unknown Organization [facility] Address [place], [place] [address] Care Team Providers Care Buffing Wheel Former Machine Name Role Phone Talib Ana Unavailable Alex Mata MD Primary Care Provider + Allergies Active Allergy Reactions Criticality Noted Date Comments Blood-Group Specific Substance Other - Describe In Comment Field 04/19/2021 Patient has Sims a (Fya) antibody. Blood products may be delayed. Draw patient 24 hours prior to transfusion. For Weebly testing, draw one red top and two [...] Comments Blood Pressure 82/58 08/24/2022 10:22 AM DORMITORY KEEPER Pulse 103 08/24/2022 10:22 AM DORMITORY KEEPER Temperature 35.2 ??C (95.4 ??F) 04/19/2021 7:02 AM CD T Respiratory Rate 18 08/24/2022 10:22 AM DORMITORY KEEPER Oxygen Saturation 100% 08/24/2022 10:22 AM DORMITORY KEEPER Inhaled Oxygen Concentration - - Weight 62.6 [...] 12/26/2008, 09/01/2006 Medical Devices Implanted Type Area Rn Psychiatric Device Identifier Shelf Expiration Date Model / Serial / Lot Standard Pacemaker-12/21 Implanted:11/23 by Judson Jenkins MD (Quantity not on file) Standard Pacemaker Med[employer]onic [id number] / [id number] / Additional Health Concerns Infection Onset Date [...] 12 months since positive culture): resides in acute/half-way care, receiving hemodialysis, has chronic open wounds/skin [...] 3:46 PM 12/16/2015 12:49 PM Care Teams Buffing Wheel Former Machine Relationship Specialty Start Date End Date Alex Mata MD [address] [place] [address] PCP - General Family Practice 02/04/20 Ana Mayers [address] [place] [id number] Nurse Practitioner 03/02/11
== END 2023-08-28 10:54 | disposition home or self-care (01) ==
LOC: WOUND 10:53
PROVIDERS: PCP Family Medicine; Visit Provider Nurse Practitioner Family
DX: M86.68 Other chronic osteomyelitis, other site (principal); L89.894 Pressure ulcer of other site, stage 4; L89.314 Pressure ulcer of right buttock, stage 4; L89.514 Pressure ulcer of right ankle, stage 4; L89.614 Pressure ulcer of right heel, stage 4; L89.893 Pressure ulcer of other site, stage 3; S80.811A Abrasion, right lower leg, initial encounter; Z99.3 Dependence on wheelchair
CPT/HCPCS: 97597; G0277; G0463; J0330; J2704

== ENCOUNTER 2023-09-11 07:56 | Outpatient (CLI) | payer OTHER, SELFPAY ==
--- OUTSIDE RECORDS SUMMARY | 2023-09-11 07:58 | XMS_ITS | Data Portability ---
Author Name Unknown Address [address] [place] [address] Phone [phone] Organization [facility], [facility] Address [address] [place] [address] Care Team Providers Care Endodontist Name Role Phone CHETNA MERAZ Primary Care Provider [phone] ANTHONY JUAREZ Body Artist [phone] Assessment Encounter Date Assessment Date Assessment LastModified [...] Not available Lab culture, urine 2020 021 [facility], [address], [place], [address], 05/08/2021 07:39:35 urinalysi s, dipstick 2020 021 kneubert Not available 05/12/2021 11:34:22 urinalysi s, dipstick 2020 bbeckers Not available 02/18/2021 14:48:24 culture, urine 2020 [facility], [address], [address], [place], [address], 02/20/2021 09:38:15 Referral None recorded. Procedures None recorded. Surgeries None recorded. Imaging US, kidney 2021 [facility], [address] [place], [address], 10/06/2021 09:00:29 Medication Orders oxybutyni n chloride ER 15 mg tablet,ex tended release 24 hr 2022 023 [facility]70345, [address] [facility], [id number], 04/28/2023 12:15:06 methenami ne hippurate 1 gram tablet 2022 023 [facility] #27824, [address] , [place], [place], [id number], 04/28/2023 12:31:06 nitrofura ntoin macrocrys tori 50 mg capsule 2022 023 [facility] #46179, [address] , [place], [place], [id number], 09/28/2022 13:48:42 oxybutyni n chloride ER 15 mg tablet,ex tended release 24 hr 2021 022 [facility] #96573, [address] [place], [place], [id number], 09/27/2021 12:53:22 nitrofura ntoin macrocrys tori 50 mg capsule 2021 022 [facility] #20805, [address] , [place], [place], [id number], 09/27/2021 12:53:21 Bactrim DS 800 mg-160 mg tablet [address] [facility], [address] [place] [address], [address], 09/27/2021 12:43:46 nitrofura ntoin macrocrys tori 50 mg capsule 2020 021 [facility], [address] [place] [address], [address], 02/18/2021 15:02:39 Patient TargetsNo targets recorded. Patient InstructionsNo instructions recorded. Reason for Referral None Reported. Results Created Date Observation Date Name Description Value Unit Range Abnormal Flag LastModifiedBy Organization Detail LastModifiedTime 05/12/2021 urina lysis , dipst ick Color-Status Yellow Not Available [facility] [address], [place], [address], 05/12/2021 11:33:40 05/12/2021 urina lysis , dipst ick Clarity-Stat us Cloudy Not Available [facility] [address], [place], [address], 05/12/2021 11:33:40 05/12/2021 urina lysis , dipst ick pH-Status 7.5 Not Available [facility] [address], [place], [address], 05/12/2021 11:33:40 05/12/2021 urina lysis , dipst ick Nitrates-Sta tus positi ve Not Available [facility] [address], [place], [address], 05/12/2021 11:33:40 05/12/2021 urina lysis , dipst ick Blood-Status Small Not Available [facility] [address], [place], [address], 05/12/2021 11:33:40 05/12/2021 urina lysis , dipst ick Leuko-Status Large Not Available [facility] [address], [place], [address], 05/12/2021 11:33:40 02/18/2021 urina lysis , dipst ick Color-Status Straw Not Available [facility] [address], [place], [address], 02/18/2021 14:44:35 02/18/2021 urina lysis , dipst ick Clarity-Stat us Cloudy Not Available [facility] [address], [place], [address], 02/18/2021 14:44:35 02/18/2021 urina lysis , dipst ick Glucose-Stat us Negati ve Not Available [facility] [address], [place], [address], 02/18/2021 14:44:35 02/18/2021 urina lysis , dipst ick Bilirubin-St atus Negati ve Not Available [facility] [address], [place], [address], 02/18/2021 14:44:35 02/18/2021 urina lysis , dipst ick Ketones-Stat us Negati ve Not Available [facility] [address], [place], [address], 02/18/2021 14:44:35 02/18/2021 urina lysis , dipst ick Sp Larwill-Stat us 1.015 Not Available [facility] [address], [place], [address], 02/18/2021 14:44:35 02/18/2021 urina lysis , dipst ick Nitrates-Sta tus positi ve Not Available [facility] [address], [place], [address], 02/18/2021 14:44:35 02/18/2021 urina lysis , dipst ick Blood-Status Trace Not Available [facility] [address], [place], [address], 02/18/2021 14:44:35 02/18/2021 urina lysis , dipst ick Leuko-Status Large Not Available [facility] [address], [place], [address], 02/18/2021 14:44:35 02/19/20 21 02/18/2021 URINE CULTU RE final report microb iology result s abnormal Not Available [facility] [address], [place], [address], 02/20/2021 09:38:14 05/06/20 21 05/06/2021 URINE CULTU RE final report microb iology result s abnormal Not Available [facility] [address], [place], [address], 05/08/2021 07:39:35 10/07/19 22 10/05/2021 US, Varsha anthony ation record ed. [email or web address] [facility] Rad[facility] Department [address] [place], [address], 09/28/2022 13:47:50 Result Notes None recorded. Procedures Surgical History Date Name Laterality Status Provider Name and Address Organization Details Recorded Time excision of pressure injury completed Jono Pagan MD [address],[address], [place], [address], [facility] 09/28/2022 11:00:08 Imaging Results Imaging Date Name Status LastModified by Organiz ation Details LastModified Time 10/05/2021 US, kidney completed [email or web address] [facility] Department [address] [place], [address], 09/28/2022 13:47:50 Procedure Notes None recorded. Medical Equipment None Reported. Allergies Allergen ID Allergen Name Allergen Category Reaction Reaction Severity Criticality Documentation Date Start Date Code Code System Note Provider Name and Address Organization Details Recorded Time 491041 Medicinal product containin g cephalosp pao and acting as antibacte rial agent (product) medicatio n Not available Not available Not available 09/27/2021 [id number] SNOMED Nasreen Maritza hwang [facility] 12:43:20 Medications Name Sig Start [...] Updated DateTime 09/28/2022 182.88 cm 19.4 kg/m2 07162.71 g Veronika Begum [facility] 09/28/2022 10:55:01 Date Recorded Body height Body mass index (BMI) Body weight Provider Name and Address Organization Details Last Updated DateTime 04/28/2023 182.88 cm 19.4 kg/m2 10113.71 g Mindy Solitariodivyacarmen [facility] 04/28/2023 11:39:29 Date Recorded Body height Body mass index (BMI) Body weight Provider Name and Address Organization Details Last Updated DateTime 02/18/2021 182.88 cm 19.4 kg/m2 82451.71 g Atilio Caban [facility] 02/18/2021 14:51:29 Date Recorded Body height Body mass index (BMI) Body weight Provider Name and Address Organization Details Last Updated DateTime 05/06/2021 182.88 cm 19.4 kg/m2 16394.71 g Chelsea Joejacob [facility] 05/06/2021 12:47:45 Date Recorded Body height Body mass index (BMI) Body weight Provider Name and Address Organization Details Last Updated DateTime 09/27/2021 182.88 cm 19.4 kg/m2 40340.71 g Nasreen Salas [facility] 09/27/2021 12:43:07 Social History Question Answer Notes LastModified by Organizat ion Details LastModified Time Tobacco Smoking Status Former Smoker Atilio Adamepau [facility] 02/18/2021 14:55:09 What Is Your Level Of [...] Response Diabetes N Sexually Transmitted Infection N Other N Bleeding Disorder N High Blood Pressure N Kidney Stones N High Cholesterol N GERD/Acid Reflux N Heart Disease N Cancer N Lung Disease N Depression N Immunizations Vaccine Type Date Status Provider Name and Address Organization Details Recorded Time IPV 11/19/2004 completed Mindy hwang [facility] 04/28/2023 11:39:35 COVID-19, mRNA, LNP-S, PF, 30 mcg/0.3 mL dose 08/20/2020 completed Mindy hwang [facility] 04/28/2023 11:39:35 COVID-19, mRNA, LNP-S, PF, 30 mcg/0.3 mL dose 09/14/2020 completed Mindy hwang [facility] 04/28/2023 11:39:35 Pneumococcal conjugate PCV20, polysaccharide [id number] conjugate, adjuvant, PF 12/01/2022 completed Mindy hwang [facility] 04/28/2023 11:39:35 influenza, unspecified formulation 05/24/2006 completed Mindy hwang [facility] 04/28/2023 11:39:35 Tdap 09/01/2006 completed Mindy hwang [facility] 04/28/2023 11:39:35 Tdap 12/26/2008 completed Mindy hwang [facility] 04/28/2023 11:39:35 zoster live 01/29/2015 completed Mindy hwang [facility] 04/28/2023 11:39:35 Influenza, seasonal, injectable, preservative free 03/25/2011 completed Mindy hwang [facility] 04/28/2023 11:39:35 Influenza, seasonal, injectable, preservative free 05/24/2012 completed Mindy hwang [facility] 04/28/2023 11:39:35 Td (adult), 2 Lf tetanus toxoid, preservative free, adsorbed 03/21/1997 [facility] 04/28/2023 11:39:35 Hep B, adult 09/01/2006 completed Mindy Malone null, [facility] 04/28/2023 11:39:35 Hep B, adult 11/19/2004 completed Mindycarlos Solitariodivyaauer null, [facility] 04/28/2023 11:39:35 Hep B, adult 03/30/2007 completed Mindy Fariasauer null, [facility] 04/28/2023 11:39:35 Hep A, adult 09/30/2002 completed Mindy Osterbauer null, [facility] 04/28/2023 11:39:35 Hep A, adult 11/19/2004 completed Mindy Malone null, [facility] 04/28/2023 11:39:35 Hep A, adult 05/01/2003 completed Mindy Malone null, [facility] 04/28/2023 11:39:35 typhoid, ViCPs 09/01/2006 completed Mindy Malone null, [facility] 04/28/2023 11:39:35 typhoid, ViCPs 09/30/2002 completed Mindycarlos Solitarioalice null, [facility] 04/28/2023 11:39:35 Past Encounters Encounter ID Performer Location Encounter Start Date Encounter Closed Date Diagnosis/Indication [id number] MD KIKE [facility] [address] [place] [address] 02/18/2021 14:23:42 02/19/2021 12:13:21 Neurogenic bladder Spinal cord injury Spasm of bladder Recurrent urinary tract infection Acute urinary tract infection [id number] Marlene [facility]er [facility] [address] [place] [address] 05/06/2021 11:58:15 05/11/2021 03:52:30 Abnormal urine [id number] MD [facility] [address] [place] [address] 09/27/2021 12:37:54 10/27/2021 09:29:43 Neurogenic bladder Spinal cord injury Spasm of bladder Recurrent urinary tract infection [id number] MD [facility] [address] [place] [address] 09/28/2022 10:53:21 10/01/2022 11:26:52 Neurogenic bladder Spinal cord injury Spasm of bladder Recurrent urinary tract infection [id number] Jono Pagan MD [facility] [address] [place] [address] 04/28/2023 11:30:11 05/04/2023 11:13:13 Neurogenic bladder Spinal [...] Quinones Member ID Guarantor Name 04/28/2023 1 [facility] (MEDICARE REPLACEMENT/AD VANTAGE - PPO) [id number] Khanh Rene [id number] [employer] [facility] [place] 09/28/2022 [facility] [employer] [id number] [employer]h [employer] [place] 09/27/2021 1 [facility] (MEDICARE REPLACEMENT/AD VANTAGE - PPO) [id number] [employer]h [employer] [place] [id number] [employer] [place] 05/06/2021 [facility] [facility] [employer] [id number] [employer] [place] 02/18/2021 [facility] [employer] [id number] [facility] [employer] [facility] Khanh C [place] Notes Date Note [...] grade fever. Jono Pagan MD [address] [facility],[address], [place], [address], [facility] 02/18/2021 22:42:35 05/06/2021 text/html HPI Notes: Pt he re for UA/UC due to low back ache, cloudy urine with sediment present X 1.5 weeks. pt given cipro 500mg BID pending culture. 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 Jono Pagan MD [address] [place] [address],[address], [address], [facility] 09/27/2021 13:13:14 09/28/2022 text/html HPI Notes: [...] tract abnormality. Jono Pagan MD [address] [facility],[address], [place], [address], [facility] 09/28/2022 13:48:55 04/28/2023 text/html HPI Notes: [...] the summer. Jono Pagan MD [address],[address], [place], [address], [facility] 04/28/2023 12:27:52
--- OUTSIDE RECORDS SUMMARY | 2023-09-11 07:58 | XMS_ITS | Clinical Summary ---
Author Name Unknown Organization [facility] Address [place], [place] [address] Care Team Providers Care Highway Construction Inspector Name Role Phone Talib Ana Unavailable Alex Mata MD Primary Care Provider + Allergies Active Allergy Reactions Criticality Noted Date Comments Blood-Group Specific Substance Other - Describe In Comment Field 04/19/2021 Patient has Sims a (Fya) antibody. Blood products may be delayed. Draw patient 24 hours prior to transfusion. 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[employer]IC Pulse 103 08/24/2022 10:22 AM [employer]KL[employer]CH[employer] Temperature 35.2 ??C (95.4 ??F) 04/19/2021 7:02 AM CD T Respiratory Rate 18 08/24/2022 10:22 AM [employer] TR[employer] MECH[employer]IC Oxygen Saturation 100% 08/24/2022 10:22 AM [employer] TR[employer] MECH[employer]IC Inhaled Oxygen Concentration - - Weight 62.6 [...] 18 Tetanus booster 12/26/2018 12/26/2008, 03/2007, 03/21/1997 Medicare Wellness for age 65+ 2019 Pneumococcal series for age 65+ (1 of 1 - PCV) 2019 COVID-19 vaccine series (3 - season) 2023 09/14/2020, 08/20/2020 Influenza for age 65+ 03/24/2023 03/25/2011, 006 Tdap Completed 12/26/2008, 09/01/2006 Medical Devices Implanted Type Area Technical Translator Device Identifier Shelf Expiration Date Model / Serial / Lot Standard Pacemaker-12/21 Implanted:11/23 by Judson Jenkins MD (Quantity not on file) Standard Pacemaker Medtronic [id number] / [id number] / Additional Health Concerns Infection Onset Date [...] 12 months since positive culture): resides in acute/senior living care, receiving hemodialysis, has chronic open wounds/skin [...] 3:46 PM 12/16/2015 12:[address] Construction Inspector Relationship Specialty Start Date End Date Alex Mata MD [address] [place] [address] PCP - General Family Practice 02/04/[address] Mayers [address] [place] [address] Nurse Practitioner 03/02/11
[2023-09-11 12:50] LABS: Basophils Absolute Auto 0.02 K/uL (0.00-0.30); Basophils Percent Auto 0.3 % (0.0-3.0); Eosinophils Absolute Auto 0.21 K/uL (0.00-0.50); Hematocrit 36.8 % (37.0-53.0); Hemoglobin* 11.2 gm/dL (13.5-17.5); Immature Granulocytes Abs Auto 0.02 K/uL (0.00-0.30); Immature Granulocytes Pct Auto 0.3 %; Lymphocytes Absolute Auto 1.57 K/uL (0.90-2.90); Lymphocytes Percent Auto 22.8 % (20-44); Mean Corpuscular HGB Conc 30 gm/dL (32-36); Mean Corpuscular Hemoglobin 28 pg (26-34); Mean Corpuscular Volume 93 fL (80-100); Monocytes Percent Auto 7.3 % (0.0-11.0); Neutrophils Absolute Auto 4.57 K/uL (1.7-7.0); Neutrophils Percent Auto 66.3 % (42.0-72.0); Platelet Count* 258 K/uL (140-440); Red Blood Count 3.96 m/uL (4.30-5.90); White Blood Count* 6.89 K/uL (4.50-11.00)
[2023-09-11 13:03] LABS: Slide Review Reflex No
[2023-09-11 13:06] LABS: Albumin* 3.8 g/dL (3.3-5.0); Chloride* 103 mmol/L (96-114); Sodium* 139 mmol/L (135-149)
[2023-09-11 13:09] LABS: Creatinine* 0.5 mg/dL (0.5-1.5); Estimated Glomerular Filt Rate 110 ml/min
[2023-09-11 13:10] LABS: Anion Gap 6 mEq/L (7-15); Blood Urea Nitrogen* 19 mg/dL (7-30); Calcium* 9.3 mg/dL (8.4-10.6); Carbon Dioxide* 30 mmol/L (20-32); Glucose* 100 mg/dL (60-115)
[2023-09-11 13:13] LABS: C Reactive Protein* 1.8 mg/dL (0.5-1.0)
[2023-09-11 13:44] LABS: Erythrocyte SedimentationRate* 83 mm/hr (2-15)
[2023-09-12 13:44] LABS: Prealbumin 13.3 mg/dL (20.0-40.0)
== END 2023-09-11 07:57 | disposition home or self-care (01) ==
LOC: WOUND 07:56
PROVIDERS: PCP Family Medicine; Visit Provider Nurse Practitioner Family
DX: M86.68 Other chronic osteomyelitis, other site (principal); L89.314 Pressure ulcer of right buttock, stage 4; L89.894 Pressure ulcer of other site, stage 4; L89.613 Pressure ulcer of right heel, stage 3; L89.893 Pressure ulcer of other site, stage 3; I73.9 Peripheral vascular disease, unspecified; Z99.3 Dependence on wheelchair
CPT/HCPCS: 11042; 36415; 80048; 82040; 84134; 85025; 85651; 86140; 97597; G0277; G0463

== ENCOUNTER 2023-09-13 13:00 | Outpatient (RCR) | payer OTHER, SELFPAY | END 2023-09-21 23:59 | disposition home or self-care (01) | LOC: WOUND 13:00 | PROVIDERS: PCP Family Medicine; Visit Provider Nurse Practitioner Family | DX: M86.68 Other chronic osteomyelitis, other site (principal); L89.314 Pressure ulcer of right buttock, stage 4; L89.894 Pressure ulcer of other site, stage 4; L89.614 Pressure ulcer of right heel, stage 4; I73.9 Peripheral vascular disease, unspecified; Z99.3 Dependence on wheelchair | CPT/HCPCS: G0277 ==

== ENCOUNTER 2023-09-20 13:58 | Outpatient (CLI) | payer OTHER, SELFPAY ==
--- NOTE | 2023-09-20 14:00 | US_ITS ---
Patient: MICHEAL FLETCHER Facility:?[facility] Patient ID:?[id number] Site Patient ID:?[id number]. Site :?[id number] Study:?US-Extremity Bilateral arterial study-09/20/2023 3:48:41 PM Ordering Physician:HORTENCIA Final Report: INDICATION: Nonhealing wounds right leg; quadriplegia. Comparison: None. TECHNIQUE: Duplex ultrasound evaluation arterial system both lower extremities; color Doppler duplex assessment. FINDINGS: Right leg: Diffuse calcific atheromatous changes throughout the arterial system right lower extremity. Monophasic waveforms throughout the arterial system including the common femoral artery indicating significant inflow disease. Peroneal artery is not visualized. No focal significant narrowing identified within the right lower extremity arterial system. Left leg: Biphasic waveforms identified in the left common femoral artery and monophasic waveforms elsewhere including the SFA and runoff vessels. The flow is better in the left leg ,however still compromised and still indicating significant inflow disease. Diffuse calcific atheromatous changes throughout. IMPRESSION: 1. Monophasic waveforms throughout the arterial system right lower extremity with low velocities throughout indicating significant inflow disease. 2. Biphasic waveforms in the left common femoral artery and monophasic waveforms throughout the rest of the left lower extremity arterial system again indicating inflow disease. 3. Suggest obtaining either a CT angio or MR angio of the abdominal aorta and iliac arteries for further assessment. Dictated by Waldo Kothari MD @ 09/21/2023 9:20:26 AM Signed by:?Waldo Kothari MD @09/21/2023 9:20:26 AM (Electronic Signature)
== END 2023-09-20 13:59 | disposition home or self-care (01) ==
LOC: US 14:00
PROVIDERS: PCP Family Medicine; Visit Provider Nurse Practitioner Family
DX: I73.9 Peripheral vascular disease, unspecified (principal); L89.614 Pressure ulcer of right heel, stage 4
CPT/HCPCS: 93926

== ENCOUNTER 2023-09-25 10:59 | Outpatient (CLI) | payer OTHER, SELFPAY | END 2023-09-25 11:00 | disposition home or self-care (01) | LOC: WOUND 10:59 | PROVIDERS: PCP Family Medicine; Visit Provider Nurse Practitioner Family | DX: M86.68 Other chronic osteomyelitis, other site (principal); L89.314 Pressure ulcer of right buttock, stage 4; L89.894 Pressure ulcer of other site, stage 4; L89.514 Pressure ulcer of right ankle, stage 4; L89.613 Pressure ulcer of right heel, stage 3; L89.893 Pressure ulcer of other site, stage 3 | CPT/HCPCS: 11042; 97597 ==

== ENCOUNTER 2023-09-25 14:20 | Outpatient (CLI) | payer OTHER, MEDICARE, SELFPAY | END 2023-09-25 14:21 | disposition home or self-care (01) | PROVIDERS: PCP Family Medicine; Visit Provider Family Medicine | DX: L89.614 Pressure ulcer of right heel, stage 4 (principal); M86.68 Other chronic osteomyelitis, other site; L89.314 Pressure ulcer of right buttock, stage 4 | CPT/HCPCS: 82607; 82728; 82746; 83540; 83550; 84681; 85025 ==

== ENCOUNTER 2023-10-05 11:10 | Outpatient (CLI) | payer OTHER, SELFPAY ==
--- NOTE | 2023-10-05 11:15 | NM_ITS ---
Patient: MICHEAL FLETCHER Facility:?[facility] Patient ID:?[id number] Site Patient ID:?[id number]. Site :?[id number] Study:?NM-Extremity Procedure 3-Phase Bone Scan-10/05/2023 3:53:00 PM Ordering Physician:?EVA VELA Final Report: INDICATION: Evaluate osteomyelitis in the right calcaneus as well as the ischium and coccyx. TECHNIQUE: 24.9 mCi Tc-99m labeled MDP administered. A three-phase bone scan of the feet was performed. Delayed images were also acquired of the pelvis, hips, and lower extremities. COMPARISON : None. No correlative images either. FINDINGS: Positive three-phase bone scan of the right calcaneus. Specifically there is increased flow to the right calcaneus and less so the remainder of the right foot. Blood pool activity demonstrates asymmetric tracer accumulation in the region of the right calcaneus and less so along the right 1st MTP joint. Delayed imaging demonstrates persistent activity in the region of the right calcaneus and right 1st MTP joint and DIP of the right great toe. Delayed imaging demonstrates nonspecific activity in the expected location of the right and left acetabula, right ischium, as well as the proximal right tibia soft tissues along the lateral right calf. IMPRESSION: 1. Positive 3 phase bone scan of the right calcaneus. Clinical correlation recommended. Infection/inflammation/osteomyelitis is in the differential. More acute fracture deformities could not be excluded. Please correlate with any plain radiographs. 2. Delayed imaging of the pelvis and lower extremities demonstrates activity in the acetabuli, less so the right ischium, proximal right tibia and presumably within the soft tissues of the posterior lateral right calf. These latter foci are nonspecific. Dictated by Abhinav Rolon MD @ 10/06/2023 9:37:04 AM Signed by:?Abhinav Rolon MD @10/06/2023 9:37:04 AM (Electronic Signature)
== END 2023-10-05 11:11 | disposition home or self-care (01) ==
LOC: NM 11:11
PROVIDERS: PCP Family Medicine; Visit Provider Nurse Practitioner Family
DX: M86.68 Other chronic osteomyelitis, other site (principal); L89.314 Pressure ulcer of right buttock, stage 4
CPT/HCPCS: 78315; A9503

== ENCOUNTER 2023-10-09 10:52 | Outpatient (CLI) | payer OTHER, SELFPAY | END 2023-10-09 10:53 | disposition home or self-care (01) | LOC: WOUND 10:53 | PROVIDERS: PCP Family Medicine; Visit Provider Nurse Practitioner Family | DX: M86.68 Other chronic osteomyelitis, other site (principal); L89.894 Pressure ulcer of other site, stage 4; L89.314 Pressure ulcer of right buttock, stage 4; L89.514 Pressure ulcer of right ankle, stage 4; L89.893 Pressure ulcer of other site, stage 3; L89.614 Pressure ulcer of right heel, stage 4; Z99.3 Dependence on wheelchair | CPT/HCPCS: 11042; 97597 ==

== ENCOUNTER 2023-10-23 10:57 | Outpatient (CLI) | payer OTHER, SELFPAY | END 2023-10-23 10:58 | disposition home or self-care (01) | LOC: WOUND 10:57 | PROVIDERS: PCP Family Medicine; Visit Provider Nurse Practitioner Family | DX: L89.314 Pressure ulcer of right buttock, stage 4 (principal); L89.514 Pressure ulcer of right ankle, stage 4; L89.894 Pressure ulcer of other site, stage 4; L89.613 Pressure ulcer of right heel, stage 3; L89.893 Pressure ulcer of other site, stage 3; Z99.3 Dependence on wheelchair | CPT/HCPCS: 11042; 87070; 87186; 97597 ==

== ENCOUNTER 2023-11-06 08:55 | Outpatient (CLI) | payer OTHER, SELFPAY ==
--- OUTSIDE RECORDS SUMMARY | 2023-11-06 08:58 | XMS_ITS | Clinical Summary ---
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 TIER) Narrative Doretha Kolb INCOMING FREIGHT CLERK - 09/29/2023 2:38 PM BUNDLE TIER Doretha Kolb CRNA ? 09/29/2023 ??2:39 PM Procedure: Supraglottic Patient location during procedure: OR Supraglottic Airway Properties Mask Ventilation: easy Type: unique Tube Size: 4 Placement Verification: auscultation and CO2 detection Assessment Assessment: atraumatic Airway Intervention: repositioned Cuff Volume: 5 Veronika Lozano MD ANESTHESIA PX N OTE ORDERABLES * (ABNORMAL) CBC with Platelets no Differential (09/29/2023 12:17 PM BUNDLE TIER) Pathologist [facility] WHITE BLOOD COUNT 5.7 4.5 - 11.0 thou/cu mm 09/29/2023 12:30 PM [facility] RED BLOOD COUNT 3.53(L) 4.30 - 5.90 mil/cu mm 09/29/2023 12:30 PM [facility] HEMOGLOBIN 10.0(L) 13.5 - 17.5 g/dL 09/29/2023 12:30 PM [facility] HEMATOCRIT 31.5(L) 37.0 - 53.0 % 09/29/2023 12:30 PM [facility] MCV 89 80 - 100 fL 09/29/2023 12:30 PM [facility] MCH 28.3 26.0 - 34.0 pg 09/29/2023 12:30 PM BUNDLE TIER [facility] MCHC 31.7(L) 32.0 - 36.0 g/dL 09/29/2023 12:30 PM [facility] RDW 13.2 11.5 - 15.5 % 09/29/2023 12:30 PM [facility] PLATELET COUNT 232 140 - 440 thou/cu mm 09/29/2023 12:30 PM [facility] MPV 7.9 6.5 - 11.0 fL 09/29/2023 12:30 PM [facility] NRBC 0.0 % 09/29/2023 12:30 PM [facility] ABS NRBC 0.0 thou /cu mm 09/29/2023 12:30 PM [facility] Blood BLOOD SPECIMEN / Unknown Non-Lab Venipuncture / Unknown 09/29/2023 12:17 PM BUNDLE TIER 09/29/2023 12:23 PM BUNDLE TIER Rosa Elena Sahu MD HEMATOLOGY [facility] [address] [place] [address], * (ABNORMAL) Basic Metabolic Panel (09/29/2023 12:16 PM BUNDLE TIER) SODIUM 139 136 - 145 mmol/L 09/29/2023 12:51 PM [facility] POTASSIUM 4.4 3.5 - 5.1 mmol/L 09/29/2023 12:51 PM [facility] CHLORIDE 106 98 - 107 mmol/L 09/29/2023 12:51 PM [facility] CO2,TOTAL 23 22 - 29 mmol/L 09/29/2023 12:51 PM [facility] ANION GAP 10 5 - 18 09/29/2023 12:51 PM [facility] GLUCOSE 103(H) 70 - 99 mg/dL 09/29/2023 12:51 PM [facility] CALCIUM 9.0 8.8 - 10.2 mg/dL 09/29/2023 12:51 PM [facility] BUN 21 8 - 23 mg/dL 09/29/2023 12:51 PM [facility] CREATININE 0.47(L) 0.70 - 1.20 mg/dL 09/29/2023 12:51 PM [facility] BUN/CREAT RATIO 45(H) 10 - 20 12:51 PM [facility] eGFR >90 >90 mL/min/1.7 3m2 09/29/2023 12:51 PM [facility] Comment:As of 2021, eG FR is calculated by the CKD-EPI creatinine equation without race adjustment. ??eGFR can be influenced by muscle mass, exercise, and diet. ??The reported eGFR is an estimation only and is only applicable if the renal function is stable. Blood BLOOD SPECIMEN / Unknown Non-Lab Venipuncture / Unknown 09/29/2023 12:16 PM BUNDLE TIER 09/29/2023 12:23 PM BUNDLE TIER Rosa Elena Sahu MD [facility] [address] [place] [address], * SCAN-CARDIAC STRIP (09/29/2023 12:00 AM BUNDLE TIER) Narrative 09/29/2023 12:00 AM BUNDLE TIER Ordered by an unspecified provider. Other Clinical Staff OTHER * SCAN-ULTRASOUND REPORT (09/20/2023 12:00 AM BUNDLE TIER) Anatomical Region Laterality Modality Other Scanner OTHER * IR VENOGRAM UPPER EXTREMITY LEFT (09/19/2023 11:18 AM BUNDLE TIER) Anatomical Region Laterality Modality ARM L X-Ray Angiograph y Narrative 09/19/2023 1:33 PM BUNDLE TIER Examination: Left upper extremity venogram. Indication: Lead placement/revision, evaluate for central stenoses/occlusions. Comparison: None available. Technique: The nurse obtain an IV in the arm of interest, and fluoroscopic images during a central venogram was obtained. Fluoroscopy time: 0.1 min Reference Air Kerma: 21 mGy Contrast: 20 mL Findings: A left-sided pacemaker is in place. ??There is an approximately moderate to severe chronic appearing stenosis of the central left brachiocephalic vein. 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 ??The SVC is patent. ??The axillary vein on the left appears patent. 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 Please contact me with questions. Tremayne Kathleen MD Vascular & Interventional Radiology [facility] Pager: [phone] [phone] [employer] Rosa Elena Sahu MD IR * Lipid Panel - In AM (07/14/2008 3:00 AM BUNDLE TIER) CHOLESTEROL,TOTAL 141 110 - 199 mg/dL [facility] TRIGLYCERIDES 41 40 - 149 mg/dL [facility] HDL CHOLESTEROL 45 >40 mg/dL [facility] CHOL/HDL RATIO 3.13 <4.51 [facility] LDL CHOLESTEROL 88 <131 mg/dL [facility] PATIENT STATUS Fasting [facility] Blood specimen (specimen) BLOOD SPECIMEN / Unknown 07/14/2008 3:00 AM BUNDLE TIER 07/14/2008 1:52 AM BUNDLE TIER Phyllis Sánchez MD CHEMISTRY [facility] [place] ZIP [address] [address] from Last 3 Months or Most Recently Relevant to Health Maintenance Additional Health Concerns Infection Onset Date Last [...] 12 months since positive culture): 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, receiving hemodialysis, has chronic open wounds/skin damage, has long-term percutaneous indwelling medical devices Exclusions for nares collection (if <12 months since positive culture) include all of the previous exclusions plus patients on antibiotics 7 days prior to collection 12/17/2015 12/17/2015 Advance Directives * Full Code (Latest Code Status on File) Date Activated Date Inactivated Comments 09/29/2023 3:56 PM 09/29/2023 9:33 PM Question Answer Comments Code Status Discussion: Other * Full Code Date Activated Date Inactivated Comments 03/05/2020 6:59 AM 03/09/2020 8:07 PM Question Answer Comments Code Status Discussion: Not Discussed * Full Code Date Activated Date Inactivated Comments 04/25/2016 3:57 PM 05/10/2016 8:47 PM * Full Code Date Activated Date Inactivated Comments 2016 6:44 AM 03/14/2016 5:37 PM * Full Code Date Activated Date Inactivated Comments 12/16/2015 12:49 PM 12/25/2015 1:24 PM Care Teams Shape Brick Molder Relationship Specialty Start Date End Date Alex Mata MD [address] [place] [address] PCP - General Family Practice 02/04/[address] Mayers [address] [place] [address] Nurse Practitioner 03/02/11 Jak Keys NP [address] [place] [address] Nurse Practitioner Nurse Practitioner - Adult 10/30/23
--- OUTSIDE RECORDS SUMMARY | 2023-11-06 08:58 | XMS_ITS | Continuity of Care Document ---
Author Name Unknown Address [address] [place] [address] Phone [phone] Organization [facility] Address [address] [place] [address] Care Team Providers Care Esthetician Makeup Artist Name Role Phone CHETNA MERAZ Primary Care Provider [phone] RAHUL OCONNOR Leather Flesher Assessment Encounter Date Assessment Date Assessment LastModified by Organization Details LastModified Time 11/01/2023 11/01/2023 68 yoM with history of neurogenic bladder secondary to spinal cord injury. [email or web address] Not available 10/30/2023 17:24:07 Plan of Treatment Reminders Order Date Submit Date Provider Last Modified By Organization Details Last Modified Time Details Appointments None recorded. Lab None recorded. Referral None recorded. Procedures None recorded. Surgeries None recorded. Imaging None recorded. Medication Orders methenamine hippurate 1 gram tablet 2023 [id number] [address] [place], [place], [phone], 23:05:37 oxybutynin chloride ER 15 mg tablet,exte nded release 24 hr 2023 024 [facility] #46780, [address] [place], [place], [phone], 23:04:50 Patient TargetsNo targets recorded. Patient InstructionsNo instructions recorded. Reason for Referral None Reported. Procedures Surgical History Date Name Laterality Status Provider Name and Address Organization Details Recorded Time 04/10/202 4 COMPLEX VISIT completed Jono Pagan MD [address] [facility],[address], [place], [address], [facility] 11/01/2023 08:09:54 excision of pressure injury completed Jono Pagan MD [address] [facility],[address], [place], [address], [facility] 09/28/2022 11:00:08 maintenance procedure for cardiac pacemaker system completed Veronika hwang [facility] 11/01/2023 11:05:10 Imaging Results None recorded. Procedure Notes None recorded. Medical Equipment None Reported. Allergies Allergen ID Allergen Name Allergen Category Reaction Reaction Severity Criticality Documentation Date Start Date Code Code System Note Provider Name and Address Organization Details Recorded Time 462770 Medicinal product containin g cephalosp pao and acting as antibacte rial agent (product) medicatio n Not available Not available Not available 09/27/2021 41526 9009 SNOMED Nasreen Maritza eri [facility] 2 12:43:20 662327 shellfish derived food,medi cation Not available Not available Not available 11/01/2023 Veronika hwang [facility] 4 11:03:08 Medications Name Sig Start Date Stop Date [...] TAKE 1 CAPSULE BY MOUTH EVERY DAY 10/31 completed Not Available Not Available Not Available oxybutynin chloride ER 15 mg tablet,exte nded release 24 hr TAKE 1 TABLET BY MOUTH TWICE DAILY 2023 active Not Available Not Available Not Avai lable doxycycline hyclate 100 mg capsule TAKE 1 [...] Not Available Not Available Not Available hydrocodone 5 mg-acetamin ophen 325 mg tablet 10/31 completed Not Available Not Available Not Available clopidogrel 75 mg tablet TAKE 1 TABLET BY MOUTH ONCE DAILY 09/27 completed Not Available Not Available Not Available ciprofloxac in 250 mg tablet TAKE 1 TABLET BY MOUTH TWICE DAILY 10/31 completed Not Available Not Available Not Available [...] Not Available methenamine hippurate 1 gram tablet Take 1 tab PO Twice daily for the first 3 days of each months 2023 active Not Available Not Available Not Avai lable amoxicillin 875 mg tablet TAKE 1 TABLET BY MOUTH TWICE DAILY FOR 10 DAYS 02/18 completed Not Available Not Available Not Available linezolid 600 mg tablet TAKE 1 TABLET BY MOUTH TWICE DAILY FOR 6 WEEKS 04/28 completed Not Available Not Available Not Available doxycycline monohydrate 100 mg capsule TAKE 1 CAPSULE BY MOUTH TWICE DAILY 10/31 completed Not Available Not Available Not Available [...] Not Available Not Available No t Available neomycin-po lymyxin-hyd rocort 3.5 mg-10,000 unit/mL-1 % ear drops,susp INSTILL 4 DROPS IN AFFECTED EAR(S) FOUR TIMES DAILY 02/18 completed Not Available Not Available Not Available [employer] 0.25 % 09/28 completed Not Available Not Available Not Available Vitals Date Recorded Body height Body mass index (BMI) Body weight Provider Name and Address Organization Details Last Updated DateTime 11/01/2023 182.88 cm 18.7 kg/m2 63446.75 g Veronika hwang [facility] 11/01/2023 11:02:57 Social History Question Answer Notes LastModified by Organizat ion Details LastModified Time Tobacco Smoking Status Former Smoker Atilio hwang [facility] 02/18/2021 14:55:09 What Is Your Level Of Alcohol Consumption? Occasional Information not available 02/18/2021 What Is Your Level Of Caffeine Consumption? Moderate Information not available 02/18/2021 When Did You Quit Smoking? 16+yearssincel astcigarette Information not available 02/18/2021 What Was The Date Of Your Most Recent Tobacco Screening? 11/01/2023 Information not available 11/01/2023 Have You Ever Been Counseled For Unhealthy Alcohol Use? No Information not available 11/01/2023 Do You Use Any Illicit Or Recreational Drugs? No Information not available 11/01/2023 How Many Years Have You Smoked Tobacco? 33 Information not available 02/18/2021 Do You Or Have You Ever Used Any Other Forms Of Tobacco Or Nicotine? No Information not available 02/18/2021 How Many Days In The Past Year Have You Consumed 5 Or More Drinks? 0 Information no t available 11/01/2023 Sex: Male Functional Status None recorded. Mental [...] Disease N Depression N GERD/Acid Reflux N Sexually Transmitted Infection N Cancer N High Cholesterol N Diabetes N Bleeding Disorder N Heart Disease N Immunizations Vaccine Type Date Status Provider Name and Address Organization Details Recorded Time IPV 11/19/2004 completed Mindy hwang [facility] 04/28/2023 11:39:35 COVID-19, mRNA, LNP-S, PF, 30 mcg/0.3 mL dose 08/20/2020 completed Mindy hwang [facility] 04/28/2023 11:39:35 COVID-19, mRNA, LNP-S, PF, 30 mcg/0.3 mL dose 09/14/2020 completed Mindy hwang [facility] 04/28/2023 11:39:35 Pneumococcal conjugate PCV20, polysaccharide [id number] conjugate, adjuvant, PF 12/01/2022 completed Mindy hwang [facility] 04/28/2023 11:39:35 influenza, unspecified formulation 05/24/2006 completed Mindy hwang [facility] 04/28/2023 11:39:35 Tdap 09/01/2006 completed Mindy hwang [facility] 04/28/2023 11:39:35 [facility]26[facility] 11:39:35 zoster live 01/29/2015 [facility] 11:39:35 Influenza, seasonal, injectable, preservative free 03/25/2011 completed Mindy hwang [facility] 04/28/2023 11:39:35 Influenza, seasonal, injectable, preservative free 05/24/2012 [facility] 11:39:35 Td (adult), 2 Lf tetanus toxoid, preservative free, adsorbed [facility]21/1997 [facility] 11:39:35 Hep B, adult 09/01/2006 completed Mindy hwang [facility] 04/28/2023 11:39:35 Hep B, adult 11/19/2004 completed Mindy Solitarioalice eri [facility] 04/28/2023 11:39:35 Hep B, adult 03/30/2007 completed Mindy Solitarioalice eri, [facility] 04/28/2023 11:39:35 Hep A, adult 09/30/2002 completed Mindy Solitarioalice eri [facility] 04/28/2023 11:39:35 Hep A, adult 11/19/2004 completed Mindy Solitarioalice eri, [facility] 04/28/2023 11:39:35 Hep A, adult 05/01/2003 completed Mindy Solitarioalice eri [facility] 04/28/2023 11:39:35 typhoid, ViCPs 09/01/2006 completed Mindy Solitarioalice eri [facility] 04/28/2023 11:39:35 typhoid, ViCPs 09/30/2002 completed Mindy Solitarioalice eri [facility] 04/28/2023 11:39:35 Past Encounters Encounter ID Performer Location Encounter Start Date Encounter Closed Date Diagnosis/Indication Diagnosis SNOMED-CT Code [id number] Jono Pagan MD [facility] [address] [id number] 11/01/2023 10:52:02 11/02/2023 14:01:41 Neurogenic bladder 513840866 Spinal cord injury 85913 004 Spasm of bladder 5522346 06 Recurrent urinary tract infection 407087193 Health Concerns Section Related Observation LastModified by Organization Detai ls LastModified Time None Recorded Concern Status LastModified by Organization Details LastModified Time None Recorded Payers Encounter Date Sequence Insurance Name Policy Number Policy Quinones Covered Member ID Quinones Member ID Guarantor Name 11/01/2023 [facility] [id number] Levar Rene Notes Date Note Type Note Provider Name and Address Organization Details Recorded Time 11/01/2023 text/html HPI Notes: 68 yo M with [...] has had two UTIs since the summer. 11/01/2023: Here for follow up history of spinal cord injury and resultant neurogenic bladder managed with daily CIC regimen and anticholinergic. Continues to do well. Reports 2 UTIs in last year. Occasional incontinence but rare. Interested in condom catheter when traveling. Jono Pagan MD [address] [facility],[address], [place], [address], [facility] 11/01/2023 23:05:58
--- OUTSIDE RECORDS SUMMARY | 2023-11-06 08:58 | XMS_ITS | Data Portability ---
Author Name Unknown Address [address] [place] [address] Phone [phone] Organization [facility], [facility] Address [address] [place] [address] Care Team Providers Care Travel Physical Therapist Name Role Phone CHETNA MERAZ Primary Care Provider [phone] RAHUL OCONNOR [employer] Assessment Encounter Date Assessment Date Assessment LastModified by Organization Details LastModified Time 02/18/2021 02/18/2021 65 yoM with history of neurogenic bladder secondary to spinal cord injury. Not available 02/18/2021 14:05:55 09/27/2021 09/27/2021 65 yoM with history of neurogenic bladder secondary to spinal cord injury. Not available 09/27/2021 12:51:04 09/28/2022 09/28/2022 67 yoM with history of neurogenic bladder secondary to spinal cord injury. [email or web address] Not available 09/28/2022 09:12:48 04/28/2023 04/28/2023 68 yoM with history of neurogenic bladder secondary to spinal cord injury. [email or web address] Not available 04/27/2023 11:18:34 11/01/2023 11/01/2023 68 yoM with history of neurogenic bladder secondary to spinal cord injury. [email or web address] Not available 10/30/2023 17:24:07 Plan of Treatment Reminders Order Date Submit Date Provider Last Modified By Organization Details Last Modified Time Details Appointments None recorded. Lab culture, urine [address] [facility], [address], [place], [address], 07:39:35 urinalysis, dipstick 2020 021 [email or web address] Not available 11:34:22 urinalysis, dipstick 2020 021 [email or web address] Not available 14:48:24 culture, urine [address] [facility], [address], [place], [address], 09:38:15 Referral None recorded. Procedures None recorded. Surgeries None recorded. Imaging US, kidney 2021 022 [facility], [address] [place], [address], 2 09:00:29 Medication Orders methenamine hippurate 1 gram tablet [address] [facility][id number], [address] [place], [place], [id number], 4 23:05:37 oxybutynin chloride ER 15 mg tablet,exte nded release [address] [facility] #61903, [address] [place], [place], [id number], 4 23:04:50 oxybutynin chloride ER 15 mg tablet,exte nded release [address] [facility] #67106, [address] [place], [place], [id number], 3 12:15:06 methenamine hippurate 1 gram tablet [address] [facility]96731, [address] [facility] [place], [id number], 4 23:05:30 nitrofurant oin macrocrysta l 50 mg capsule [address] [facility] #52983, [address] [facility] [place], [id number], 4 08:10:56 oxybutynin chloride ER 15 mg tablet,exte nded release 24 hr 2021 022 JO[facility] #36360, [address] [facility] [place], [id number], 2 12:53:22 nitrofurant oin macrocrysta l 50 mg capsule [address] [facility] #04008, [address] [place], [place] [address], [id number], 4 08:10:56 Bactrim DS 800 mg-160 mg tablet [address] [facility], [address] [place] [address], [address], 2 12:43:46 nitrofurant oin macrocrysta l 50 mg capsule [address] [facility], [address] [place] [address], [address], 4 08:10:56 Patient TargetsNo targets recorded. Patient InstructionsNo instructions recorded. Reason for Referral None Reported. Results Created Date Observation Date Name Description Value Unit Range Abnormal Flag LastModifiedBy Organization Detail LastModifiedTime 05/12/2021 urina lysis , dipst ick Color-Status Yellow Not Available [facility] [address], [place], [address], 05/12/2021 11:33:40 05/12/2021 urina lysis , dipst ick Clarity-Stat us Cloudy Not Available [facility] [address], [place], [address], 05/12/2021 11:33:40 05/12/2021 urina lysis , dipst ick pH-Status 7.5 Not Available [facility] [address], [place], [address], 05/12/2021 11:33:40 05/12/2021 urina lysis , dipst ick Nitrates-Sta tus positi ve Not Available [facility] [address], [place], [address], 05/12/2021 11:33:40 05/12/2021 urina lysis , dipst ick Blood-Status Small Not Available [facility] [address], [place], [address], 05/12/2021 11:33:40 05/12/2021 urina lysis , dipst ick Leuko-Status Large Not Available [facility] [address], [place], [address], 05/12/2021 11:33:40 02/18/2021 urina lysis , dipst ick Color-Status Straw Not Available [facility] [address], [place], [address], 02/18/2021 14:44:35 02/18/2021 urina lysis , dipst ick Clarity-Stat us Cloudy Not Available [facility] [address], [place], [address], 02/18/2021 14:44:35 02/18/2021 urina lysis , dipst ick Glucose-Stat us Negati ve Not Available [facility] [address], [place], [address], 02/18/2021 14:44:35 02/18/2021 urina lysis , dipst ick Bilirubin-St atus Negati ve Not Available [facility] [address], [place], [address], 02/18/2021 14:44:35 02/18/2021 urina lysis , dipst ick Ketones-Stat us Negati ve Not Available [facility] [address], [place], [address], 02/18/2021 14:44:35 02/18/2021 urina lysis , dipst ick Sp [place]-Stat us 1.015 Not Available [facility] [address], [place], [address], 02/18/2021 14:44:35 02/18/2021 urina lysis , dipst ick Nitrates-Sta tus positi ve Not Available [facility] [address], [place], [address], 02/18/2021 14:44:35 02/18/2021 urina lysis , dipst ick Blood-Status Trace Not Available [facility] [address], [place], [address], 02/18/2021 14:44:35 02/18/2021 urina lysis , dipst ick Leuko-Status Large Not Available [facility] [address], [place], [address], 02/18/2021 14:44:35 02/19/20 21 02/18/2021 URINE CULTU RE final report microb iology result s abnormal Not Available [facility] [address], [place], [address], 02/20/2021 09:38:14 05/06/20 21 05/06/2021 URINE CULTU RE final report microb iology result s abnormal Not Available [facility] [address] [facility] [address] [address], [place], [address], 05/08/2021 07:39:35 10/07/19 22 10/05/2021 US, aaliyah zimmerman No observ ation record ed. [address] Radiology Department [address] [place], [address], 09/28/2022 13:47:50 Result Notes None recorded. Procedures Surgical History Date Name Laterality Status Provider Name and Address Organization Details Recorded Time COMPLEX VISIT completed Jono Pagan MD [address] [facility],[address], [place], [address], [facility] 11/01/2023 08:09:54 excision of pressure injury completed Jono Pagan MD [address] [facility],[address], [place], [address], [facility] 09/28/2022 11:00:08 maintenance procedure for cardiac pacemaker system completed Veronika hwang [facility] 11/01/2023 11:05:10 Imaging Results Imaging Date Name Status LastModified by Organiz ation Details LastModified Time 10/05/2021 US, kidney completed [address] Radiology Department [address] [place], [address], 09/28/2022 13:47:50 Procedure Notes None recorded. Medical Equipment None Reported. Allergies Allergen ID Allergen Name Allergen Category Reaction Reaction Severity Criticality Documentation Date Start Date Code Code System Note Provider Name and Address Organization Details Recorded Time 987649 Medicinal product containin g cephalosp pao and acting as antibacte rial agent (product) medicatio n Not available Not available Not available 09/27/2021 26346 9009 SNOMED Nasreen Maritza hwang [facility] 2 12:43:20 457506 shellfish derived food,medi cation Not available Not available Not available 11/01/2023 Veronika hwang [facility] 4 11:03:08 Medications Name Sig Start Date [...] Updated DateTime 09/28/2022 182.88 cm 19.4 kg/m2 00102.71 g Veronika hwang [facility] 09/28/2022 10:55:01 Date Recorded Body height Body mass index (BMI) Body weight Provider Name and Address Organization Details Last Updated DateTime 04/28/2023 182.88 cm 19.4 kg/m2 57425.71 g Mindy hwang [facility] 04/28/2023 11:39:29 Date Recorded Body height Body mass index (BMI) Body weight Provider Name and Address Organization Details Last Updated DateTime 10/12/2023 182.88 cm 19.4 kg/m2 47015.71 g Veronika Stromquist [facility] 10/12/2023 12:26:19 Date Recorded Body height Body mass index (BMI) Body weight Provider Name and Address Organization Details Last Updated DateTime 11/01/2023 182.88 cm 18.7 kg/m2 43546.75 g Veronika Begum [facility] 11/01/2023 11:02:57 Date Recorded Body height Body mass index (BMI) Body weight Provider Name and Address Organization Details Last Updated DateTime 02/18/2021 182.88 cm 19.4 kg/m2 03804.71 g Atilio Caban [facility] 02/18/2021 14:51:29 Date Recorded Body height Body mass index (BMI) Body weight Provider Name and Address Organization Details Last Updated DateTime 05/06/2021 182.88 cm 19.4 kg/m2 39085.71 g Chelsea Medrano [facility] 05/06/2021 12:47:45 Date Recorded Body height Body mass index (BMI) Body weight Provider Name and Address Organization Details Last Updated DateTime 09/27/2021 182.88 cm 19.4 kg/m2 46640.71 g Nasreen Salas [facility] 09/27/2021 12:43:07 Social History Question Answer Notes LastModified by Organizat ion Details LastModified Time Tobacco Smoking Status Former Smoker Atilio Caban [facility] 02/18/2021 14:55:09 What Is Your Level Of Alcohol Consumption? Occasional Information not available 02/18/2021 What Is Your Level Of Caffeine Consumption? Moderate Information not available 02/18/2021 When Did You Quit Smoking? 16+yearssincel astcisandraette Information not available 02/18/2021 What Was The [...] High Blood Pressure N Kidney Stones N Depression N Lung Disease N GERD/Acid Reflux N Diabetes N Sexually Transmitted Infection N Bleeding Disorder N Cancer N High Cholesterol N Heart Disease N Immunizations Vaccine Type Date Status Provider Name and Address Organization Details Recorded Time IPV 11/19/2004 completed Mindy hwang [facility] 04/28/2023 11:39:35 COVID-19, mRNA, LNP-S, PF, 30 mcg/0.3 mL dose 08/20/2020 completed [facility] 04/28/2023 11:39:35 COVID-19, mRNA, LNP-S, PF, 30 mcg/0.3 mL dose 09/14/2020 completed Mindy hwang [facility] 04/28/2023 11:39:35 Pneumococcal conjugate PCV20, polysaccharide UXY161 conjugate, adjuvant, PF 12/01/2022 completed Mindy hwang [facility] 04/28/2023 11:39:35 influenza, unspecified formulation 05/24/2006 maki hwang [facility] 04/28/2023 11:39:35 Tdap 09/01/2006 maki hwang [facility] 04/28/2023 11:39:35 Tdap 12/26/2008 maki hwang [facility] 04/28/2023 11:39:35 zoster live 01/29/2015 completed Mindy hwang [facility] 04/28/2023 11:39:35 Influenza, seasonal, injectable, preservative free 03/25/2011 amki hwang [facility] 04/28/2023 11:39:35 Influenza, seasonal, injectable, preservative free 05/24/2012 completed Mindy hwang [facility] 04/28/2023 11:39:35 Td (adult), 2 Lf tetanus toxoid, preservative free, adsorbed 03/21/1997 completed Mindy hwang [facility] 04/28/2023 11:39:35 Hep B, adult 09/01/2006 completed Mindy hwang, [facility] 04/28/2023 11:39:35 Hep B, adult 11/19/2004 completed Mindy hwang, [facility] 04/28/2023 11:39:35 Hep B, adult 03/30/2007 completed Mindy hwang, [facility] 04/28/2023 11:39:35 Hep A, adult 09/30/2002 completed Mindy hwang [facility] 04/28/2023 11:39:35 Hep A, adult 11/19/2004 completed Mindy hwang, [facility] 04/28/2023 11:39:35 Hep A, adult 05/01/2003 completed Mindy hwang [facility] 04/28/2023 11:39:35 typhoid, ViCPs 09/01/2006 completed Mindy hwang [facility] 04/28/2023 11:39:35 typhoid, ViCPs 09/30/2002 completed Mindy hwang [facility] 04/28/2023 11:39:35 Past Encounters Encounter ID Performer Location Encounter Start Date Encounter Closed Date Diagnosis/Indication Diagnosis SNOMED-CT Code [id number] MD KIKE [facility] [address] [place] [id number] 02/18/2021 14:23:42 02/19/2021 12:13:21 Neurogenic bladder 866129165 Spinal cord injury 74192 004 Spasm of bladder 9560541 06 Recurrent urinary tract infection 868626553 Acute urin estefany tract infection [id number] Marlene [facility] [address] [place] [id number] 05/06/2021 11:58:15 05/11/2021 03:52:30 Abnormal urine [id number] Jono Pagan MD [facility] [address] [place] [address] 09/27/2021 12:37:54 10/27/2021 09:29:43 Neurogenic bladder 475107098 Spinal cord injury 71656 004 Spasm of bladder 8179501 06 Recurrent urinary tract infection [id number] MD KIKE [facility] [address] [place] [id number] 09/28/2022 10:53:21 10/01/2022 11:26:52 Neurogenic bladder 544317532 Spinal cord injury 32814 004 Spasm of bladder 7616906 06 Recurrent urinary tract infection [id number] MD KIKE [facility] [address] [place] [id number] 04/28/2023 11:30:11 05/04/2023 11:13:13 Neurogenic bladder 996385382 Spinal cord injury 10286 004 Spasm of bladder 7165603 06 Recurrent urinary tract infection [id number] MD KIKE [facility] [address] [place] [address] 11/01/2023 10:52:02 11/02/2023 14:01:41 Neurogenic bladder 953351825 Spinal cord injury 31033 004 Spasm of bladder 9760084 06 Recurrent urinary tract infection Health Concerns Section Related Observation LastModified by Organization Detai ls LastModified Time None Recorded Concern Status LastModified by Organization Details LastModified Time None Recorded Advance Directives Directive None Recorded Payers Encounter Date Sequence Insurance Name Policy Number Policy Quinones Covered Member ID Quinones Member ID Guarantor Name 11/01/2023 [facility] [employer] [id number] Levar Rios [facility] Khanh Rene 04/28/2023 1 [facility] (MEDICARE REPLACEMENT/AD VANTAGE - PPO) [id number] Khanh Rene [id number] Khanh Rene 09/28/2022 [facility] [employer] [id number] Levar Rios [facility] Khanh Rene 09/27/2021 1 [facility] (MEDICARE REPLACEMENT/AD VANTAGE - PPO) [id number] Khanh Rene [id number] Khanh Rene 05/06/2021 [facility] [employer] [facility] [id number] Levar Rene 02/18/2021 [facility] [employer] [facility] [id number] Levar Rios [facility] Khanh Rene Notes Date Note Type Note Provider [...] low grade fever. Jono Pagan MD [address] [facility],[address], [place], [address] 02/18/2021 22:42:35 05/06/2021 text/html HPI Notes: Pt he re for UA/UC due to low back ache, cloudy urine with sediment present X 1.5 weeks. pt given cipro 500mg BID pending culture. CLIFF PEREZ [facility] 07/20/2021 14:23:40 09/27/2021 text/html HPI Notes: [...] over last 7 months. Jono Pagan MD [address] [facility],[address], [place], [address], [facility] 09/27/2021 13:13:14 09/28/2022 text/html HPI [...] no upper tract abnormality. Jono Pagan MD [address] [place] [address],[address], [place], [address], [facility] 09/28/2022 13:48:55 04/28/2023 text/html HPI [...] UTIs since the summer. Jono Pagan MD [address] [place] [address],[address], [place], [address], [facility] 04/28/2023 12:27:52 11/01/2023 text/html HPI Notes: 68 yo M [...] catheter when traveling. Jono Pagan MD [address] [facility],[address], [place], [address], [facility] 11/01/2023 23:05:58
== END 2023-11-06 08:56 | disposition home or self-care (01) ==
LOC: WOUND 08:56
PROVIDERS: PCP Family Medicine; Visit Provider Nurse Practitioner Family
DX: L89.894 Pressure ulcer of other site, stage 4 (principal); L89.314 Pressure ulcer of right buttock, stage 4; L89.514 Pressure ulcer of right ankle, stage 4; L89.614 Pressure ulcer of right heel, stage 4; Z99.3 Dependence on wheelchair
CPT/HCPCS: 11042; 11043; 73630; 97597

== ENCOUNTER 2023-11-13 10:47 | Outpatient (CLI) | payer OTHER, SELFPAY ==
--- OUTSIDE RECORDS SUMMARY | 2023-11-13 10:49 | XMS_ITS | Data Portability ---
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 Lab culture, urine 2020 021 [facility], [address], [place], [address], 07:39:35 urinalysis, dipstick 2020 021 kneubert Not available 11:34:22 urinalysis, dipstick 2020 021 bbeckers Not available 14:48:24 culture, urine 2020 021 [facility], [address], [place], [address], 09:38:15 Referral None recorded. Procedures None recorded. Surgeries None recorded. Imaging US, kidney 2021 022 [facility] Radiology Department, [address] [place], [address], 2 09:00:29 Medication Orders methenamine hippurate 1 gram tablet 2023 024 [facility] #61083, [address] [place], [place], [id number], 4 23:05:37 oxybutynin chloride ER 15 mg tablet,exte nded release 24 hr 2023 024 [facility] #35747, [address] [place], [place], [id number], 4 23:04:50 oxybutynin chloride ER 15 mg tablet,exte nded release 24 hr 2022 023 [facility] #75430, [address] [place], [place], [id number], 3 12:15:06 methenamine hippurate 1 gram tablet [address] [facility] #15645, [address] [facility] [place], [id number], 4 23:05:30 nitrofurant oin macrocrysta l 50 mg capsule [address] [facility] #70622, [address] [facility] [place], [id number], 4 08:10:56 oxybutynin chloride ER 15 mg tablet,exte nded release 24 hr 2021 022 [facility] #92980, [address] [facility] [place], [id number], 2 12:53:22 nitrofurant oin macrocrysta l 50 mg capsule [address] [facility] #81304, [address] [place] [address] [place], [id number], 4 08:10:56 Bactrim DS 800 mg-160 mg tablet [address] [facility], [address] [place] [address], [address], 2 12:43:46 nitrofurant oin macrocrysta l 50 mg capsule [address] [facility], [address] [place] [address], [address], 4 08:10:56 Patient TargetsNo targets recorded. Patient InstructionsNo instructions recorded. Reason for Referral None Reported. Results Created Date Observation Date Name Description Value Unit Range Abnormal Flag LastModifiedBy Organization Detail LastModifiedTime 05/12/2021 urina lysis , dipst ick Color-Status Yellow Not Available [facility] [address], [place], [address], 05/12/2021 11:33:40 05/12/2021 urina lysis , dipst ick Clarity-Stat us Cloudy Not Available [facility] [address], [place], [address], 05/12/2021 11:33:40 05/12/2021 urina lysis , dipst ick pH-Status 7.5 Not Available [facility] [address], [place], [address], 05/12/2021 11:33:40 05/12/2021 urina lysis , dipst ick Nitrates-Sta tus positi ve Not Available [facility] [address], [place], [address], 05/12/2021 11:33:40 05/12/2021 urina lysis , dipst ick Blood-Status Small Not Available [facility] [address], [place], [address], 05/12/2021 11:33:40 05/12/2021 urina lysis , dipst ick Leuko-Status Large Not Available [facility] [address], [place], [address], 05/12/2021 11:33:40 02/18/2021 urina lysis , dipst ick Color-Status Straw Not Available [facility] [address], [place], [address], 02/18/2021 14:44:35 02/18/2021 urina lysis , dipst ick Clarity-Stat us Cloudy Not Available [facility] [address], [place], [address], 02/18/2021 14:44:35 02/18/2021 urina lysis , dipst ick Glucose-Stat us Negati ve Not Available [facility] [address], [place], [address], 02/18/2021 14:44:35 02/18/2021 urina lysis , dipst ick Bilirubin-St atus Negati ve Not Available [facility] [address], [place], [address], 02/18/2021 14:44:35 02/18/2021 urina lysis , dipst ick Ketones-Stat us Negati ve Not Available [facility] [address], [place], [address], 02/18/2021 14:44:35 02/18/2021 urina lysis , dipst ick Sp [place]-Stat us 1.015 Not Available [facility] [address], [place], [address], 02/18/2021 14:44:35 02/18/2021 urina lysis , dipst ick Nitrates-Sta tus positi ve Not Available [facility] [address], [place], [address], 02/18/2021 14:44:35 02/18/2021 urina lysis , dipst ick Blood-Status Trace Not Available [facility] [address], [place], [address], 02/18/2021 14:44:35 02/18/2021 urina lysis , dipst ick Leuko-Status Large Not Available [facility] [address], [place], [address], 02/18/2021 14:44:35 02/19/20 21 02/18/2021 URINE CULTU RE final report microb iology result s abnormal Not Available [facility] [address], [place], [address], 02/20/2021 09:38:14 05/06/20 21 05/06/2021 URINE CULTU RE final report microb iology result s abnormal Not Available [facility] [address] [facility] [address], [place], [address], 05/08/2021 07:39:35 10/07/19 22 10/05/2021 US, aaliyah zimmerman No observ ation record ed. [address] Radiology Department [address] [place], [address], 09/28/2022 13:47:50 Result Notes None recorded. Procedures Surgical History Date Name Laterality Status Provider Name and Address Organization Details Recorded Time COMPLEX VISIT completed Jono Pagan MD [address] [facility] [address],[address], [place], [address], [facility] 11/01/2023 08:09:54 excision of pressure injury completed Jono Pagan MD [address] [facility] [address], [place], [address], [facility] 09/28/2022 11:00:08 maintenance procedure for cardiac pacemaker system completed Veronika hwang [facility] 11/01/2023 11:05:10 Imaging Results Imaging Date Name Status LastModified by Organiz ation Details LastModified Time 10/05/2021 US, kidney completed [address] Radiology Department [address] [place], [address], 09/28/2022 13:47:50 Procedure Notes None recorded. Medical Equipment None Reported. Allergies Allergen ID Allergen Name Allergen Category Reaction Reaction Severity Criticality Documentation Date Start Date Code Code System Note Provider Name and Address Organization Details Recorded Time 808965 Medicinal product containin g cephalosp pao and acting as antibacte rial agent (product) medicatio n Not available Not available Not available 09/27/2021 79713 9009 SNOMED Nasreen Maritza hwang [facility] 2 12:43:20 840593 shellfish derived food,medi cation Not available Not available Not available 11/01/2023 Veronika hwang [facility] 4 11:03:08 Medications Name Sig Start [...] Updated DateTime 09/28/2022 182.88 cm 19.4 kg/m2 92920.71 g Veronika hwang [facility] 09/28/2022 10:55:01 Date Recorded Body height Body mass index (BMI) Body weight Provider Name and Address Organization Details Last Updated DateTime 04/28/2023 182.88 cm 19.4 kg/m2 66889.71 g Mindy hwang [facility] 04/28/2023 11:39:29 Date Recorded Body height Body mass index (BMI) Body weight Provider Name and Address Organization Details Last Updated DateTime 10/12/2023 182.88 cm 19.4 kg/m2 20179.71 g Veronika hwang [place] [facility] 10/12/2023 12:26:19 Date Recorded Body height Body mass index (BMI) Body weight Provider Name and Address Organization Details Last Updated DateTime 11/01/2023 182.88 cm 18.7 kg/m2 98127.75 g Veronika Begum [facility] 11/01/2023 11:02:57 Date Recorded Body height Body mass index (BMI) Body weight Provider Name and Address Organization Details Last Updated DateTime 02/18/2021 182.88 cm 19.4 kg/m2 91928.71 g Atilio Caban [facility] 02/18/2021 14:51:29 Date Recorded Body height Body mass index (BMI) Body weight Provider Name and Address Organization Details Last Updated DateTime 05/06/2021 182.88 cm 19.4 kg/m2 41363.71 g Chelsea Medrano [facility] 05/06/2021 12:47:45 Date Recorded Body height Body mass index (BMI) Body weight Provider Name and Address Organization Details Last Updated DateTime 09/27/2021 182.88 cm 19.4 kg/m2 20316.71 g Nasreen Salas [facility] 09/27/2021 12:43:07 Social History Question Answer Notes LastModified by Organizat ion Details LastModified Time Tobacco Smoking Status Former Smoker Atilio Caban [facility] 02/18/2021 14:55:09 What Is Your Level [...] Pressure N Kidney Stones N Depression N Sexually Transmitted Infection N Cancer N Bleeding Disorder N Lung Disease N GERD/Acid Reflux N High Cholesterol N Diabetes N Heart Disease N Immunizations Vaccine Type Date Status Provider Name and Address Organization Details Recorded Time IPV 11/19/2004 maki hwang [facility] 04/28/2023 11:39:35 COVID-19, mRNA, LNP-S, PF, 30 mcg/0.3 mL dose 08/20/2020 maki hwang [facility] 04/28/2023 11:39:35 COVID-19, mRNA, LNP-S, PF, 30 mcg/0.3 mL dose 09/14/2020 maki hwang [facility] 04/28/2023 11:39:35 Pneumococcal conjugate PCV20, polysaccharide ETN828 conjugate, adjuvant, PF 12/01/2022 completed Mindy hwang [facility] 04/28/2023 11:39:35 influenza, unspecified formulation 05/24/2006 maki hwang [facility] 04/28/2023 11:39:35 Tdap 09/01/2006 maki hwang [facility] 04/28/2023 11:39:35 Tdap 12/26/2008 maki hwang [facility] 04/28/2023 11:39:35 zoster live 01/29/2015 completed Mindy hwang [facility] 04/28/2023 11:39:35 Influenza, seasonal, injectable, preservative free 03/25/2011 maki hwang [facility] 04/28/2023 11:39:35 Influenza, seasonal, injectable, preservative free 05/24/2012 completed Mindy hwang [facility] 04/28/2023 11:39:35 Td (adult), 2 Lf tetanus toxoid, preservative free, adsorbed 03/21/1997 completed Mindy hwang [facility] 04/28/2023 11:39:35 Hep B, adult 09/01/2006 completed Mindy hwang, [facility] 04/28/2023 11:39:35 Hep B, adult 11/19/2004 completed Mindy hwang, [facility] 04/28/2023 11:39:35 Hep B, adult 03/30/2007 completed Mindy hwang, [facility] 04/28/2023 11:39:35 Hep A, adult 09/30/2002 completed Mindy hwang [facility] 04/28/2023 11:39:35 Hep A, adult 11/19/2004 completed Mindy hwang [facility] 04/28/2023 11:39:35 Hep A, adult 05/01/2003 completed Mindy hwang [facility] 04/28/2023 11:39:35 typhoid, ViCPs 09/01/2006 completed Mindy hwang [facility] 04/28/2023 11:39:35 typhoid, ViCPs 09/30/2002 completed Mindy hwang [facility] 04/28/2023 11:39:35 Past Encounters Encounter ID Performer Location Encounter Start Date Encounter Closed Date Diagnosis/Indication Diagnosis SNOMED-CT Code [id number] MD KIKE [facility] [address] [place] [id number] 02/18/2021 14:23:42 02/19/2021 12:13:21 Neurogenic bladder 854079626 Spinal cord injury 57145 004 Spasm of bladder 9490597 06 Recurrent urinary tract infection 506135300 Acute urin estefany tract infection [id number] Marlene Greer [facility] [address] [place] [id number] 05/06/2021 11:58:15 05/11/2021 03:52:30 Abnormal urine 844471379 [id number] MD [facility] [address] [place] [id number] 09/27/2021 12:37:54 10/27/2021 09:29:43 Neurogenic bladder 852309443 Spinal cord injury 52156 004 Spasm of bladder 5398321 06 Recurrent urinary tract infection [id number] MD [facility]IKE [facility] [address] [place] [id number] 09/28/2022 10:53:21 10/01/2022 11:26:52 Neurogenic bladder 806836076 Spinal cord injury 62618 004 Spasm of bladder 8022806 06 Recurrent urinary tract infection [id number] MD [facility]KE [facility] [address] [place] [id number] 04/28/2023 11:30:11 05/04/2023 11:13:13 Neurogenic bladder 899416062 Spinal cord injury 79470 004 Spasm of bladder 6125716 06 Recurrent urinary tract infection [id number] MD [facility]IKE [facility] [address] [place] [id number] 11/01/2023 10:52:02 11/02/2023 14:01:41 Neurogenic bladder 832420104 Spinal cord injury 55319 004 Spasm of bladder 7866380 06 Recurrent urinary tract infection 392081540 Health Concerns Section Related Observation LastModified by Organization Detai ls LastModified Time None Recorded Concern Status LastModified by Organization Details LastModified Time None Recorded Advance Directives Directive None Recorded Payers Encounter Date Sequence Insurance Name Policy Number Policy Quinones Covered Member ID Quinones Member ID Guarantor Name 11/01/2023 [facility] [employer] [id number] Levar Rios [facility] Khanh Rene 04/28/2023 1 [facility] (MEDICARE REPLACEMENT/AD VANTAGE - PPO) [id number] Khanh Rene [id number] Khanh Rene 09/28/2022 [facility] [employer] [id number] Levar Rios [facility] Khanh Rene 09/27/2021 1 [facility] (MEDICARE REPLACEMENT/AD VANTAGE - PPO) [id number] Khanh Rene [id number] Khanh Rene 05/06/2021 [facility] [id number] Levar Rios [facility] Khanh Rene 02/18/2021 [facility] [id number] Levar Rios [facility] Khanh Rene Notes Date Note Type [...] occasional low grade fever. Jono Pagan MD [address] [place] [address],[address], [place], [address] 02/18/2021 22:42:35 05/06/2021 text/html HPI Notes: Pt he re for UA/UC due to low back ache, cloudy urine with sediment present X 1.5 weeks. pt given cipro 500mg BID pending culture. CLIFF PEREZ [facility] 07/20/2021 14:23:40 09/27/2021 text/html HPI [...] last 7 months. Jono Pagan MD [address] [facility], [place], [address], [facility] 09/27/2021 13:13:14 09/28/2022 text/html HPI Notes: [...] upper tract abnormality. Jono Pagan MD [address] [facility],[address], [place], [address], [facility] 09/28/2022 13:48:55 04/28/2023 text/html HPI Notes: [...] UTIs since the summer. Jono Pagan MD [address] [place] [address],[address], [place], [address], [facility] 04/28/2023 12:27:52 11/01/2023 text/html HPI Notes: [...] catheter when traveling. Jono Pagan MD [address] [facility],[address], [place], [address], [facility] 11/01/2023 23:05:58
--- OUTSIDE RECORDS SUMMARY | 2023-11-13 10:49 | XMS_ITS | Clinical Summary ---
Author Name Unknown Organization [employer] Address [place], [place] [address] Care Team Providers Care Senior Industrial Engineer Name Role Phone Talib Ana Unavailable Alex Mata MD Primary Care Provider + Jak Keys SUPERVISOR DRILLING AND SHOOTING Unavailable [phone] Allergies Active Allergy Reactions Criticality Noted Date Comments Blood-Group Specific Substance Other - Describe In Comment Field 04/19/2021 Patient has Sims a (Fya) antibody. Blood products may be delayed. Draw patient 24 hours prior to transfusion. For [employer] testing, draw one red top and two [...] Encounters Date Type Department Care Team Description 11/09/2023 9:45 AM CDT Office Visit [facility] [address] [place] [address] Consult 11/09/2023 Travel 11/01/2023 Telephone [facility] [place] [address] [facility] [address] [place] [phone] Cardiology, Anw Follow Up 10/31/2023 Transcribe Orders [facility] [address] [place] [address] Alex Mata MD 10/30/2023 9:15 AM CDT Office Visit [facility] [address] [place] [address] Jak Keys NP Consult 10/30/2023 Travel 10/26/2023 Telephone [facility] [place] [address] [place] [address] Ramya Savage, RN Device Check 10/05/2023 Orders Only [facility] Scanner 1 scan: (1-Ord) [facility], NUCLEAR MEDICINE, 10/05/2023 10/01/2023 Travel 09/29/2023 2:20 PM SALES SECRETARY Anesthesia Event [facility] [address] [place] [address] Veronika Lozano MD Bakke, Amber N, CHANNEL MARKETING MANAGER 09/29/2023 11:14 AM SALES SECRETARY - 09/29/2023 7:10 PM SALES SECRETARY Hospital Encounter [facility] [address] [place] [address] Rosa Elena Sahu MD Zakaib, Abhinav Guerra MD [facility], [facility] dual chamber permanent pacemaker generator change on 12/21/2012 (Primary Dx); Displacement of atrial pacemaker leads, subsequent encounter Discharge Disposition: Home Self Care 09/29/2023 Travel 09/28/2023 Telephone [facility] [address] [place] [address] Olinda Nichols RN Appointment 09/20/2023 Orders Only [facility] Scanner 1 scan: (1-Ord) [facility], ARTERIAL DUPLEX LE BI, 09/20/2023 09/20/2023 Orders Only [facility] Scanner 1 scan: (1-Ord) [facility], ARTERIAL DUPLEX LE BI, 09/20/2023 09/19/2023 9:53 AM SALES SECRETARY - 09/19/2023 11:59 PM SALES SECRETARY Hospital Encounter [facility] Medical Imaging [address] [place] [address] Rosa Elena Sahu MD Pacemaker lead failure, initial encounter; Preop testing 09/19/2023 Travel 09/15/2023 Telephone [facility] [address] [place] [address] Olinda Nichols RN Appointment 09/14/2023 Travel from [...] Sign Reading Time Taken Comments Blood Pressure 85/52 11/09/2023 9:45 AM CDT RECHECK 131/68 Pulse 95 11/09/2023 9:45 AM CDT Temperature 36.6 ??C (97.8 ??F) 11/09/2023 9 :45 AM CDT Respiratory Rate 14 09/29/2023 7:00 PM SALES SECRETARY Oxygen Saturation 100% 11/09/2023 9:4 5 AM CDT Inhaled Oxygen Concentration - - Weight 60.7 kg (133 lb 14.4 oz) 09/29/2023 12:13 PM SALES SECRETARY Height 182.9 cm (6') 09/29/2023 12:13 PM SALES SECRETARY Body Mass Index 18.16 09/29/2023 12:13 PM SALES SECRETARY Plan of Treatment Upcoming Encounters Date Type Department Care Team (Late st Contact Info) Description 11/17/2023 11:00 AM CDT Office Visit [facility] [address] [place] [address] 11/17/2023 11:15 AM CDT Office Visit [facility] [address] [place] [address] Jak Keys, HILARIO [address] [place] [address] 11/27/2023 1:00 PM CDT Office Visit [facility] [address] [place] [address] Angy Israel, [facility] [address] [place] [address] 11/28/2023 12:30 PM CDT Office Visit [facility] [address] [place] [address] Clarissa Murray, [facility] [address] [place] [address] 01/03/2024 2:30 PM CDT Cardiac Device Check [facility] [address] [place] [address] Health Maintenance Due Date Last Done Comments Hepatitis C screening for age 18-79 1972 Colonoscopy through age 75 1999 Lipids for age 45-75 07/14/2013 07/14/2008 Zoster (shingles) series for age 50+ (2 of 3) 03/26/2015 01/29/2015 Depression screening for age 12+ 08/15/2018 08/15/19 18 Tetanus booster 12/26/2018 12/26/2008, 02/0 03/2007, 03/21/1997 AAA screening age 65-74 2019 Medicare Wellness for age 65+ 2019 Pneumococcal series for age 65+ (1 of 1 - PCV) 2019 COVID-19 vaccine series (3 - season) 2023 09/14/2020, 08/20/2020 Influenza for age 65+ 03/24/2024 03/25/2011, 006 Tdap Completed 12/26/2008, 09/01/2006 Medical Devices Implanted Type Area Personal Health Coach Device Identifier Shelf Expiration Date Model / Serial / Lot Standard Pacemaker-12/21 Implanted:11/23 by Judson Jenkins MD (Quantity not on file) Standard Pacemaker Medtronic [id number] / [id number] / Procedures Procedure Name Priority Date/Time Associated Diagnosis Comments SCAN-NUCLEAR MEDICINE 10/05/2023 12:00 AM CDT EKG 12 LEAD Routine 09/29/2023 6:34 PM SALES SECRETARY XR CHEST 2 VIEWS PA AND LATERAL SHOLA 09/29/2023 6:14 PM SALES SECRETARY CV PROCEDURE TO BE PERFORMED Routine 09/29/2023 3:56 PM SALES SECRETARY EP PPM Routine 09/29/2023 2:54 PM SALES SECRETARY SUPRAGLOTTIC-LMA Routine 09/29/2023 2:38 PM SALES SECRETARY EKG 12 LEAD Preop 09/29/2023 12:22 PM SALES SECRETARY CBC W PLT NO DIFF Preop 09/29/2023 12: 17 PM SALES SECRETARY BASIC METABOLIC PANEL Preop 09/29/2023 12:16 PM SALES SECRETARY SCAN-CARDIAC STRIP 09/29/2023 12 :00 AM SALES SECRETARY SCAN-ULTRASOUND REPORT 09/20/2023 12:00 AM SALES SECRETARY SCAN-ULTRASOUND REPORT 09/20/2023 12:00 AM SALES SECRETARY IR VENOGRAM UPPER EXTREMITY LEFT Routine 09/19/2023 11:18 AM SALES SECRETARY Pacemaker lead failure, initial encounter Preop testing LIPID PANEL Early AM 07/14/2008 3:00 AM SALES SECRETARY from Last 3 Months or Most Recently Relevant to Health Maintenance Results * SCAN-NUCLEAR MEDICINE (10/05/2023 12:00 AM CDT) Anatomical Region Laterality Modality Other Scanner OTHER * EKG 12 LEAD (09/29/2023 6:34 PM SALES SECRETARY) Only the most recent of2 resultswithin the [...] NOW QTc 525 ms BEYOND NOW P [place] 82 degrees BEYOND NOW R [place] 94 degrees BEYOND NOW T [place] 48 degrees BEYOND NOW 09/29/2023 6:34 PM SALES SECRETARY 09/30/2023 7:15 PM SALES SECRETARY Narrative BEYOND NOW - 09/30/2023 7:15 PM SALES SECRETARY Test Indication: POST Johanny Betancourt NP EKG ORD BEYOND NOW [place], [place] * XR Chest PA and Lateral (09/29/2023 6:14 PM SALES SECRETARY) Anatomical Region Laterality Modality CHEST, THORAX, Lung, HEART Digit al Radiography Impressions 09/29/2023 6:32 PM SALES SECRETARY Comparison exam February 09, 2012. Interval placement [...] normal No pneumothorax. Narrative 09/29/2023 6:32 PM SALES SECRETARY INDICATION Pacemaker placement TECHNIQUE 2 views of the chest COMPARISON 02/09/2012. Johanny Betancourt [facility] * EP Procedure to be Performed (09/29/2023 3:56 PM SALES SECRETARY) Narrative Rosa Elena Sahu MD - 09/29/2023 3:56 PM SALES SECRETARY Rosa Elena Sahu MD ? 09/29/2023 ??4:08 PM [facility] DUAL CHAMBER PACEMAKER IMPLANTATION PROCEDURE NOTE Micheal Rene [id number] Date: 09/29/2023 Age: 68 y.o. Birthdate: 1955 Sex: male Referring Physician: ??Alex Mata MD Cordwainer/Police Service Technician: Rosa Elena Sahu MD Assistants: None Indications [...] Dr. Modi. Full report to follow in [facility] Rosa Elena Sahu MD Electrophysiology Staff Pager: [phone] 09/29/2023 3:57 PM Rosa Elena Sahu MD I O PSYCHOLOGIST OR D * EP PPM (09/29/2023 2:54 PM SALES SECRETARY) Anatomical Region Laterality Modality X-Ray Angiograph y, X-Ray Angiography 09/29/2023 2:54 PM SALES SECRETARY Narrative Transcriptions Rosa Elena Sahu MD - 09/29/2023 4:26 PM CST [facility] Electrophysiology Implant Report Name: MICHEAL RENE Event Date: 09/29/2023 [employer] ID #: [id number] Date: 1955 Gender: Male Age: 68 [facility] #: [id number] Procedure Performed By: ROSA ELENA SAHU [facility] Referring Physician: Dr. Dariel Modi Implant Procedure [...] denies fevers, chills or rigors. Consent & Riverside Protocol Riverside protocol was followed. TIME OUT conducted just [...] Pulse Generator Detail Implanted Status Pocket Location Personal Health Coach Model Serial Number 09/29/2023 Implanted Left Pectoral [employer] Lydia XT DR BUSTAMANTE [id number] 12/21/2012 Explanted Left Pectoral [employer] Adapta L [id number] 07/14/2008 Explanted Left Pectoral [employer] EnRhythm [id number] [id number] Lead Detail Implanted Status Chamber Location Personal Health Coach Model Serial Number 07/14/2008 Chronic Right Ventricle Septum [employer]onic[employer]. CapSureFix [id number] 07/14/2008 Capped Right Atrium Right Appendage [employer]onic[employer] Inc. CapSureFixNovus [id number] 09/29/2023 Implanted Right Atrium Right Appendage [employer]onic[employer] Inc. CapSureFixNovus [id number] Measurement Patient Accounting Representative P/R Wave (mV) Threshold (V) Pulse Width [...] Shelly Galeana RN Nurse Raymond Hendrix CVT Scrub Noel Marroquin EPT Business Process Specialist Buck, Yelitza EPT Business Process Specialist Medications Ordered and Administered Start Time Stop [...] of Final Rosa Elena Sahu MD Implanting Cordwainer [facility] [address] [place] [address] (p) [phone](f) Rosa Elena Sahu MD CV IMAGING * HCHG MASK PR5 (09/29/2023 2:38 PM SALES SECRETARY) Narrative Doretha Kolb CRNA - 09/29/2023 2:38 PM SALES SECRETARY Doretha Kolb CRNA ? 09/29/2023 ??2:39 PM Procedure: Supraglottic Patient location during procedure: OR Supraglottic Airway Properties Mask Ventilation: easy Type: unique Tube Size: 4 Placement Verification: auscultation and CO2 detection Assessment Assessment: atraumatic Airway Intervention: repositioned Cuff Volume: 5 Veronika Lozano MD ANESTHESIA PX N OTE ORDERABLES * (ABNORMAL) CBC with Platelets no Differential (09/29/2023 12:17 PM SALES SECRETARY) WHITE BLOOD COUNT 5.7 4.5 - 11.0 thou/cu mm 09/29/2023 12:30 PM SALES SECRETARY [facility] RED BLOOD COUNT 3.53(L) 4.30 - 5.90 mil/cu mm 09/29/2023 12:30 PM [facility] HEMOGLOBIN 10.0(L) 13.5 - 17.5 g/dL 09/29/2023 12:30 PM [facility] HEMATOCRIT 31.5(L) 37.0 - 53.0 % 09/29/2023 12:30 PM [facility] MCV 89 80 - 100 fL 09/29/2023 12:30 PM [facility] MCH 28.3 26.0 - 34.0 pg 09/29/2023 12:30 PM [facility] MCHC 31.7(L) 32.0 - 36.0 g/dL 09/29/2023 12:30 PM [facility] RDW 13.2 11.5 - 15.5 % 09/29/2023 12:30 PM [facility] PLATELET COUNT 232 140 - 440 thou/cu mm 09/29/2023 12:30 PM [facility] MPV 7.9 6.5 - 11.0 fL 09/29/2023 12:30 PM [facility] NRBC 0.0 % 09/29/2023 12:30 PM [facility] ABS NRBC 0.0 thou /cu mm 09/29/2023 12:30 PM [facility] Blood BLOOD SPECIMEN / Unknown Non-Lab Venipuncture / Unknown 09/29/2023 12:17 PM SALES SECRETARY 09/29/2023 12:23 PM SALES SECRETARY Rosa Elena Sahu MD HEMATOLOGY [facility] [address] [place] [address], * (ABNORMAL) Basic Metabolic Panel (09/29/2023 12:16 PM SALES SECRETARY) SODIUM 139 136 - 145 mmol/L 09/29/2023 12:51 PM [facility] POTASSIUM 4.4 3.5 - 5.1 mmol/L 09/29/2023 12:51 PM [facility] CHLORIDE 106 98 - 107 mmol/L 09/29/2023 12:51 PM [facility] CO2,TOTAL 23 22 - 29 mmol/L 09/29/2023 12:51 PM [facility] ANION GAP 10 5 - 18 09/29/2023 12:51 PM [facility] GLUCOSE 103(H) 70 - 99 mg/dL 09/29/2023 12:51 PM [facility] CALCIUM 9.0 8.8 - 10.2 mg/dL 09/29/2023 12:51 PM [facility] BUN 21 8 - 23 mg/dL 09/29/2023 12:51 PM [facility] CREATININE 0.47(L) 0.70 - 1.20 mg/dL 09/29/2023 12:51 PM [facility] BUN/CREAT RATIO 45(H) 10 - 20 12:51 PM [facility] eGFR >90 >90 mL/min/1.7 3m2 09/29/2023 12:51 PM [facility] Comment:As of 2021, eG FR is calculated by the CKD-EPI creatinine equation without race adjustment. ??eGFR can be influenced by muscle mass, exercise, and diet. ??The reported eGFR is an estimation only and is only applicable if the renal function is stable. Blood BLOOD SPECIMEN / Unknown Non-Lab Venipuncture / Unknown 09/29/2023 12:16 PM SALES SECRETARY 09/29/2023 12:23 PM [facility] Rosa Elena Sahu MD [facility] [address] [place] [address], [place] * SCAN-CARDIAC STRIP (09/29/2023 12:00 AM SALES SECRETARY) Narrative 09/29/2023 12:00 AM SALES SECRETARY Ordered by an unspecified provider. Other Clinical Staff OTHER * SCAN-ULTRASOUND REPORT (09/20/2023 12:00 AM SALES SECRETARY) Only the most recent of2 resultswithin the time period is included. Anatomical Region Laterality Modality Other Scanner OTHER * IR VENOGRAM UPPER EXTREMITY LEFT (09/19/2023 11:18 AM SALES SECRETARY) Anatomical Region Laterality Modality ARM L X-Ray Angiograph y Narrative 09/19/2023 1:33 PM SALES SECRETARY Examination: Left upper extremity venogram. Indication: Lead [...] Tremayne Kathleen MD Vascular & Interventional Radiology [facility] Pager: [phone] [phone] [employer] Rosa Elena Sahu MD IR * Lipid Panel - In AM (07/14/2008 3:00 AM SALES SECRETARY) CHOLESTEROL,TOTAL 141 110 - 199 mg/dL [facility] TRIGLYCERIDES 41 40 - 149 mg/dL [facility] HDL CHOLESTEROL 45 >40 mg/dL [facility] CHOL/HDL RATIO 3.13 <4.51 [facility] LDL CHOLESTEROL 88 <131 mg/dL [facility] PATIENT STATUS Fasting [facility] Blood specimen (specimen) BLOOD SPECIMEN / Unknown 07/14/2008 3:00 AM SALES SECRETARY 07/14/2008 1:52 AM SALES SECRETARY Phyllis Sánchez MD CHEMISTRY [facility] [place]NAL ZIP [id number] [place] [address] from Last 3 Months or Most Recently [...] 12 months since positive culture): resides in acute/skilled nursing care, receiving hemodialysis, has chronic open wounds/skin [...] 12:49 PM 12/25/2015 1:24 PM Care Teams Senior Industrial Engineer Relationship Specialty Start Date End Date Alex Mata MD [address] [place] [address] PCP - General Family Practice 02/04/20 Ana Mayers [address] [place] [address] Nurse Practitioner 03/02/11 Jak Keys NP [facility] [address] [place] [address] Nurse Practitioner Nurse Practitioner - Adult 10/30/23
--- OUTSIDE RECORDS SUMMARY | 2023-11-13 10:49 | XMS_ITS | Continuity of Care Document ---
Author Name Unknown Address [address] [place] [address] Phone [phone] Organization [facility] Address [address] [place] [address] Care Team Providers Care Chemical Treatment Operator Name Role Phone CHETNA MERAZ Primary Care Provider RAHUL OCONNOR Canal Lock Tender Chief Operator Assessment Encounter Date Assessment Date Assessment [...] Orders methenamine hippurate 1 gram tablet 2023 [id number] [address] [place], [place], [phone], 23:05:37 oxybutynin chloride ER 15 mg tablet,exte nded release 24 hr 2023 024 [facility] #[id number], [address] [place], [place], [phone], 23:04:50 Patient TargetsNo targets recorded. Patient InstructionsNo instructions recorded. Reason for Referral None Reported. Procedures Surgical History Date Name Laterality Status Provider Name and Address Organization Details Recorded Time 04/10/202 4 COMPLEX VISIT completed Jono Pagan MD [address] [facility],[address], [place], [address], [facility] 11/01/2023 08:09:54 excision of pressure injury completed Jono Pagan MD [address] [facility],[address], [place], [address], [facility] 09/28/2022 11:00:08 maintenance procedure for cardiac pacemaker system completed Veronika hwang [facility] 11/01/2023 11:05:10 Imaging Results None recorded. Procedure Notes None recorded. Medical Equipment None Reported. Allergies Allergen ID Allergen Name Allergen Category Reaction Reaction Severity Criticality Documentation Date Start Date Code Code System Note Provider Name and Address Organization Details Recorded Time 019940 Medicinal product containin g cephalosp pao and acting as antibacte rial agent (product) medicatio n Not available Not available Not available 09/27/2021 03127 9009 SNOMED Nasreen Maritza eri [facility] 2 12:43:20 720151 shellfish derived food,medi cation Not available Not available Not available 11/01/2023 Veronika hwang [facility] 4 11:03:08 Medications Name Sig Start Date [...] Updated DateTime 11/01/2023 182.88 cm 18.7 kg/m2 95273.75 g Veronika Begum [facility] 11/01/2023 11:02:57 Social History Question Answer Notes LastModified by Organizat ion Details LastModified Time Tobacco Smoking Status Former Smoker Atilio Mee hwang [facility] 02/18/2021 14:55:09 What Is Your Level [...] Recorded Time IPV 11/19/2004 completed Mindy hwang [facility] 04/28/2023 11:39:35 COVID-19, mRNA, LNP-S, PF, 30 mcg/0.3 mL dose 08/20/2020 completed Mindy hwang [facility] 04/28/2023 11:39:35 COVID-19, mRNA, LNP-S, PF, 30 mcg/0.3 mL dose 09/14/2020 completed Mindy hwang [facility] 04/28/2023 11:39:35 Pneumococcal conjugate PCV20, polysaccharide CPG727 conjugate, adjuvant, PF 12/01/2022 completed iMndy hwang [facility] 04/28/2023 11:39:35 influenza, unspecified formulation 05/24/2006 completed Mindy hwang [facility] 04/28/2023 11:39:35 Tdap 09/01/2006 completed Mindy hwang [facility] 04/28/2023 11:39:35 Tdap 12/26/2008 completed Mindy hwang [facility] 04/28/2023 11:39:35 zoster live 01/29/2015 completed Mindy hwang [facility] 04/28/2023 11:39:35 Influenza, seasonal, injectable, preservative free 03/25/2011 completed Mindy hwang [facility] 04/28/2023 11:39:35 Influenza, seasonal, injectable, preservative free 05/24/2012 completed Mindy hwang [facility] 04/28/2023 11:39:35 Td (adult), 2 Lf tetanus toxoid, preservative free, adsorbed 03/21/1997 completed Mindy hwang [facility] 04/28/2023 11:39:35 Hep B, adult 09/01/2006 completed Mindy hwang [facility] 04/28/2023 11:39:35 Hep B, adult 11/19/2004 completed Mindy Solitarioalice eri [facility] 04/28/2023 11:39:35 Hep B, adult 03/30/2007 completed Mindy Solitarioalice eri [facility] 04/28/2023 11:39:35 Hep A, adult 09/30/2002 completed Mindy Kassialice hwang [facility] 04/28/2023 11:39:35 Hep A, adult 11/19/2004 completed Mindy Solitarioalice eri, [facility] 04/28/2023 11:39:35 Hep A, adult 05/01/2003 completed Mindy Kira hwang [facility] 04/28/2023 11:39:35 typhoid, ViCPs 09/01/2006 completed Mindycarlos Solitarioalice hwang [facility] 04/28/2023 11:39:35 typhoid, ViCPs 09/30/2002 completed Mindy Solitarioalice hwang [facility] 04/28/2023 11:39:35 Past Encounters Encounter ID Performer Location Encounter Start Date Encounter Closed Date Diagnosis/Indication Diagnosis SNOMED-CT Code [id number] Jono Pagan MD [facility] [address] [place] [id number] 11/01/2023 10:52:02 11/02/2023 14:01:41 Neurogenic bladder 767735192 Spinal cord injury 64442 004 Spasm of bladder 6085422 06 Recurrent urinary tract infection 736204820 Health Concerns Section Related Observation LastModified by Organization Detai ls LastModified Time None Recorded Concern Status LastModified by Organization Details LastModified Time None Recorded Payers Encounter Date Sequence Insurance Name Policy Number Policy Quinones Covered Member ID Quinones Member ID Guarantor Name 11/01/2023 [facility] [id number] Levar Rene Notes Date Note Type Note [...] catheter when traveling. Jono Pagan MD [address] [facility],[address], [place], [address], [facility] 11/01/2023 23:05:58
== END 2023-11-13 10:48 | disposition home or self-care (01) ==
LOC: WOUND 10:47
PROVIDERS: PCP Family Medicine; Visit Provider Nurse Practitioner Family
DX: L89.894 Pressure ulcer of other site, stage 4 (principal); L89.514 Pressure ulcer of right ankle, stage 4; L89.314 Pressure ulcer of right buttock, stage 4; L89.613 Pressure ulcer of right heel, stage 3; L89.893 Pressure ulcer of other site, stage 3; Z99.3 Dependence on wheelchair
CPT/HCPCS: 11042; 97597

== ENCOUNTER 2023-11-20 11:00 | Outpatient (CLI) | payer OTHER, SELFPAY ==
--- OUTSIDE RECORDS SUMMARY | 2023-11-20 11:03 | XMS_ITS | Data Portability ---
Author Name Unknown Address [address] [place] [address] Phone [phone] Organization 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 Lab culture, urine 2020 021 [facility], [address], [place], [address], 07:39:35 urinalysis, dipstick 2020 021 kneubert Not available 11:34:22 urinalysis, dipstick 2020 021 bbeckers Not available 14:48:24 culture, urine 2020 021 [facility], [address], [address], [place], [address], 09:38:15 Referral None recorded. Procedures None recorded. Surgeries None recorded. Imaging US, kidney 2021 022 [facility], [address] [place], [address], 2 09:00:29 Medication Orders methenamine hippurate 1 gram tablet 2023 024 [facility]51891, [address] [place], [place], [id number], 4 23:05:37 oxybutynin chloride ER 15 mg tablet,exte nded release 24 hr 2023 024 [facility] #54627, [address] [place], [place], [id number], 4 23:04:50 oxybutynin chloride ER 15 mg tablet,exte nded release 24 hr 2022 023 [facility] #06142, [address] [place], [place], [id number], 3 12:15:06 methenamine hippurate 1 gram tablet [address] [facility]32672, [address] [facility] [place], [id number], 4 23:05:30 nitrofurant oin macrocrysta l 50 mg capsule [address] [facility]17271, [address] [facility] [place], [id number], 4 08:10:56 oxybutynin chloride ER 15 mg tablet,exte nded release 24 hr 2021 022 [facility] #36241, [address] [facility] [place], [id number], 2 12:53:22 nitrofurant oin macrocrysta l 50 mg capsule [address] [facility] #39328, [address] [place], [place] [address], [id number], 4 08:10:56 Bactrim DS 800 mg-160 mg tablet [address] [facility], [address] [place] [address], [address], 2 12:43:46 nitrofurant oin macrocrysta l 50 mg capsule [address] [facility], [address] [place] [address], [address], 4 08:10:56 Patient TargetsNo targets recorded. Patient InstructionsNo instructions recorded. Reason for Referral None Reported. Results Created Date Observation Date Name Description Value Unit Range Abnormal Flag LastModifiedBy Organization Detail LastModifiedTime 05/12/2021 urina lysis , dipst ick Color-Status Yellow Not Available [facility] [address], [place], [address], 05/12/2021 11:33:40 05/12/2021 urina lysis , dipst ick Clarity-Stat us Cloudy Not Available [facility] [address], [place], [address], 05/12/2021 11:33:40 05/12/2021 urina lysis , dipst ick pH-Status 7.5 Not Available [facility] [address], [place], [address], 05/12/2021 11:33:40 05/12/2021 urina lysis , dipst ick Nitrates-Sta tus positi ve Not Available [facility] [address], [place], [address], 05/12/2021 11:33:40 05/12/2021 urina lysis , dipst ick Blood-Status Small Not Available [facility] [address], [place], [address], 05/12/2021 11:33:40 05/12/2021 urina lysis , dipst ick Leuko-Status Large Not Available [facility] [address], [place], [address], 05/12/2021 11:33:40 02/18/2021 urina lysis , dipst ick Color-Status Straw Not Available [facility] [address], [place], [address], 02/18/2021 14:44:35 02/18/2021 urina lysis , dipst ick Clarity-Stat us Cloudy Not Available [facility] [address], [place], [address], 02/18/2021 14:44:35 02/18/2021 urina lysis , dipst ick Glucose-Stat us Negati ve Not Available [facility] [address], [place], [address], 02/18/2021 14:44:35 02/18/2021 urina lysis , dipst ick Bilirubin-St atus Negati ve Not Available [facility] [address], [place], [address], 02/18/2021 14:44:35 02/18/2021 urina lysis , dipst ick Ketones-Stat us Negati ve Not Available [facility] [address], [place], [address], 02/18/2021 14:44:35 02/18/2021 urina lysis , dipst ick Sp [place]-Stat us 1.015 Not Available [facility] [address], [place], [address], 02/18/2021 14:44:35 02/18/2021 urina lysis , dipst ick Nitrates-Sta tus positi ve Not Available [facility] [address], [place], [address], 02/18/2021 14:44:35 02/18/2021 urina lysis , dipst ick Blood-Status Trace Not Available [facility] [address], [place], [address], 02/18/2021 14:44:35 02/18/2021 urina lysis , dipst ick Leuko-Status Large Not Available [facility] [address], [place], [address], 02/18/2021 14:44:35 02/19/20 21 02/18/2021 URINE CULTU RE final report microb iology result s abnormal Not Available [facility] [address], [place], [address], 02/20/2021 09:38:14 05/06/20 21 05/06/2021 URINE CULTU RE final report microb iology result s abnormal Not Available [facility] [address] [facility] [address], [place], [address], 05/08/2021 07:39:35 10/07/19 22 10/05/2021 US, aaliyah zimmerman No observ ation record ed. [address] Radiology Department [address] [place], [address], 09/28/2022 13:47:50 Result Notes None recorded. Procedures Surgical History Date Name Laterality Status Provider Name and Address Organization Details Recorded Time COMPLEX VISIT completed Jono Pagan MD [address] [facility],[address], [place], [address], [facility] 11/01/2023 08:09:54 excision of pressure injury completed Jono Pagan MD [address] [facility],[address], [place], [address], [facility] 09/28/2022 11:00:08 maintenance procedure for cardiac pacemaker system completed Veronika hwang [facility] 11/01/2023 11:05:10 Imaging Results Imaging Date Name Status LastModified by Organiz ation Details LastModified Time 10/05/2021 US, kidney completed [address] Radiology Department [address] [place], [address], 09/28/2022 13:47:50 Procedure Notes None recorded. Medical Equipment None Reported. Allergies Allergen ID Allergen Name Allergen Category Reaction Reaction Severity Criticality Documentation Date Start Date Code Code System Note Provider Name and Address Organization Details Recorded Time 275894 Medicinal product containin g cephalosp pao and acting as antibacte rial agent (product) medicatio n Not available Not available Not available 09/27/2021 38363 9009 SNOMED [address] h[address] [facility] 2 12:43:20 714209 shellfish derived food,medi cation Not available Not available Not available 11/01/[address] [facility] 4 11:03:08 Medications Name [...] Updated DateTime 09/28/2022 182.88 cm 19.4 kg/m2 45584.[address] [facility] 09/28/2022 10:55:01 Date Recorded Body height Body mass index (BMI) Body weight Provider Name and Address Organization Details Last Updated DateTime 04/28/2023 182.88 cm 19.4 kg/m2 [address]390.[address] [facility] 04/28/2023 11:39:29 Date Recorded Body height Body mass index (BMI) Body weight Provider Name and Address Organization Details Last Updated DateTime 10/12/2023 182.88 cm 19.4 kg/m2 18468.71 g Veronika hwang [place] [facility] 10/12/2023 12:26:19 Date Recorded Body height Body mass index (BMI) Body weight Provider Name and Address Organization Details Last Updated DateTime 11/01/2023 182.88 cm 18.7 kg/m2 01864.[address] [facility] 11/01/2023 11:02:57 Date Recorded Body height Body mass index (BMI) Body weight Provider Name and Address Organization Details Last Updated DateTime 02/18/2021 182.88 cm 19.4 kg/m2 57583.[address] [facility] 02/18/2021 14:51:29 Date Recorded Body height Body mass index (BMI) Body weight Provider Name and Address Organization Details Last Updated DateTime 05/06/2021 182.88 cm 19.4 kg/m2 79779.[address] [facility] 05/06/2021 12:47:45 Date Recorded Body height Body mass index (BMI) Body weight Provider Name and Address Organization Details Last Updated DateTime 09/27/2021 182.88 cm 19.4 kg/m2 [address]4475.[address] [facility] 09/27/2021 12:43:07 Social History Question Answer Notes LastModified by Organizat ion Details LastModified Time Tobacco Smoking Status Former Smoker Atilio Caban [facility] 02/18/2021 14:55:09 What Is Your Level [...] Pressure N Kidney Stones N Cancer N Lung Disease N Depression N High Cholesterol N GERD/Acid Reflux N Heart Disease N Immunizations Vaccine Type Date Status Provider Name and Address Organization Details Recorded Time IPV 11/19/2004 maki hwang [facility] 04/28/2023 11:39:35 COVID-19, mRNA, LNP-S, PF, 30 mcg/0.3 mL dose 08/20/2020 maki hwang [facility] 04/28/2023 11:39:35 COVID-19, mRNA, LNP-S, PF, 30 mcg/0.3 mL dose 09/14/[address] [facility] 04/28/2023 11:39:35 Pneumococcal conjugate PCV20, polysaccharide [id number] conjugate, adjuvant, PF 12/01/[address] [facility] 04/28/2023 11:39:35 influenza, unspecified formulation 05/24/[address] [facility] 04/28/2023 11:39:35 Tdap 09/01/2006 maki hwang [facility] 04/28/2023 11:39:35 Tdap 12/26/[address] [facility] 04/28/2023 11:39:35 zoster live 01/29/2015 completed Mindy hwang [facility] 04/28/2023 11:39:35 Influenza, seasonal, injectable, preservative free 03/25/[address] [facility] 04/28/2023 11:39:35 Influenza, seasonal, injectable, preservative free 05/24/[address] [facility] 04/28/2023 11:39:35 Td (adult), 2 Lf tetanus toxoid, preservative free, adsorbed 03/21/[address] [facility] 04/28/2023 11:39:35 Hep B, adult 09/01/2006 completed Mindy hwang, [facility] 04/28/2023 11:39:35 Hep B, adult 11/19/2004 completed Mindy hwang, [facility] 04/28/2023 11:39:35 Hep B, adult 03/30/2007 completed Mindy hwang, [facility] 04/28/2023 11:39:35 Hep A, adult 09/30/[address] [facility] 04/28/2023 11:39:35 Hep A, adult 11/19/[address] [facility] 04/28/2023 11:39:35 Hep A, adult 05/01/[address] [facility] 04/28/2023 11:39:35 typhoid, ViCPs 09/01/[address] [facility] 04/28/2023 11:39:35 typhoid, ViCPs 09/30/[address] [facility] 04/28/2023 11:39:35 Past Encounters Encounter ID Performer Location Encounter Start Date Encounter Closed Date Diagnosis/Indication Diagnosis SNOMED-CT Code [id number] MD KIKE [facility] [address] [place] [id number] 02/18/2021 14:23:42 02/19/2021 12:13:21 Neurogenic bladder 206992947 Spinal cord injury 35938 004 Spasm of bladder 5653535 06 Recurrent urinary tract infection 342452649 Acute urin estefany tract infection [id number] Marlene Greer [facility] [address] [place] [id number] 05/06/2021 11:58:15 05/11/2021 03:52:30 Abnormal urine [id number] MD [facility]IKE [facility] [address] [place] [id number] 09/27/2021 12:37:54 10/27/2021 09:29:43 Neurogenic bladder 605653308 Spinal cord injury 31625 004 Spasm of bladder 7914841 06 Recurrent urinary tract infection [id number] MD KIKE [facility] [address] [place] [address] 09/28/2022 10:53:21 10/01/2022 11:26:52 Neurogenic bladder 120337691 Spinal cord injury 57031 004 Spasm of bladder 5681849 06 Recurrent urinary tract infection [id number] MD KIKE [facility] [address] [place] [id number] 04/28/2023 11:30:11 05/04/2023 11:13:13 Neurogenic bladder 723579857 Spinal cord injury 68068 004 Spasm of bladder 5415548 06 Recurrent urinary tract infection [id number] MD KIKE [facility] [address] [place] [id number] 11/01/2023 10:52:02 11/02/2023 14:01:41 Neurogenic bladder 921544647 Spinal cord injury 87375 004 Spasm of bladder 1914637 06 Recurrent urinary tract infection 127392042 Health Concerns Section Related Observation LastModified by Organization Detai ls LastModified Time None Recorded Concern Status LastModified by Organization Details LastModified Time None Recorded Advance Directives Directive None Recorded Payers Encounter Date Sequence Insurance Name Policy Number Policy Quinones Covered Member ID Quinones Member ID Guarantor Name 11/01/2023 [facility] [employer] [id number] Levar Rios [facility] Khanh Rene 04/28/2023 1 [facility] (MEDICARE REPLACEMENT/AD VANTAGE - PPO) [id number] Khanh Rene [id number] Khanh Rene 09/28/2022 [facility] [employer] [id number] Levar Rios [facility] Khanh Rene 09/27/2021 1 [facility] (MEDICARE REPLACEMENT/AD VANTAGE - PPO) [id number] Khanh Rene [id number] Khanh Rene 05/06/2021 [facility] [id number] Levar Rios [facility] Khanh Rene 02/18/2021 [facility] [id number] Levar Rios [facility] Khanh Rene Notes Date Note Type Note [...] occasional low grade fever. Jono Pagan MD [address] [place] [address],[address], [place], [address] 02/18/2021 22:42:35 05/06/2021 text/html HPI Notes: Pt he re for UA/UC due to low back ache, cloudy urine with sediment present X 1.5 weeks. pt given cipro 500mg BID pending culture. CLIFF PEREZ [facility] 07/20/2021 14:23:40 09/27/2021 text/html [...] last 7 months. Jono Pagan MD [address] [facility],[address], [place], [address], [facility] 09/27/2021 13:13:14 09/28/2022 text/html HPI [...] tract abnormality. Jono Pagan MD [address] [facility],[address], [place], [address], [facility] 09/28/2022 13:48:55 04/28/2023 text/html HPI [...] UTIs since the summer. Jono Pagan MD [address] [place] [address],[address], [place], [address], [facility] 04/28/2023 12:27:52 11/01/2023 text/html HPI [...] catheter when traveling. Jono Pagan MD [address] [facility],[address], [place], [address], [facility] 11/01/2023 23:05:58
--- OUTSIDE RECORDS SUMMARY | 2023-11-20 11:03 | XMS_ITS | Clinical Summary ---
Author Name Unknown Organization [employer] Address [place], [place] [address] Care Team Providers Care Water Tester Name Role Phone Talib Ana Unavailable Alex Mata MD Primary Care Provider + Jak Keys MILK TRUCK DRIVER Unavailable [phone] Allergies Active Allergy Reactions Criticality Noted Date Comments Blood-Group Specific Substance Other - Describe In Comment Field 04/19/2021 Patient has Sims a (Fya) antibody. Blood products may be delayed. Draw patient 24 hours prior to transfusion. For [employer] testing, draw one red top and two [...] 325 mg by mouth once daily. Active HYDROcodone-aceta minophen (5-325 mg/tablet)Indicat ions:S/P cardiac pacemaker procedure,Displac ement of atrial pacemaker leads, subsequent encounter Take 1 Tablet by mouth every 6 hours if needed for Pain (For moderate to severe pain.). Max acetaminophen dose: 4000 mg in 24 hrs. 10 Tablet 09/29/2023 Discontinue d(*Patient states no longer taking) acetaminophen (TYLENOL) 325 mg tabletIndications :S/P cardiac pacemaker procedure,Displac ement of atrial pacemaker leads, subsequent encounter Take 2 Tablets (650 mg) by mouth every 6 hours if needed for Pain, Headache or Temp > (Specify) (For mild pain.). Max acetaminophen dose: 4000mg in 24 hrs. 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 , stage 4 10/30/2023 Pressure injury of right leg, stage 4 10/30/2023 Pressure injury of right heel, stage 4 BMI less than 19,adult 10/30/2023 Pressure injury of right medial foot, unstageabl e 10/30/2023 PAD (peripheral artery disease) 10/30/2023 Overview: 09/20/23 bilateral lower extremity arterial ultrasound ([facility]) S/P flap graft 03/06/2020 Neurogenic orthostatic hypotension 05/08/2016 Normocytic anemia 05/03/2016 [...] 12/24/2019 02/25/2020 Open wound of left heel 12/24/201910/2019 Pressure injury of sacral region, stage 4 12/02/2019 11/17/2023 Pressure ulcer of ischial area, stage 4 12/15/2015 02/25/2020 Stage III pressure ulcer of left heel 12/01/2015 01/29/2016 Stage III pressure ulcer of left buttock 11/19/2015 01/29/2016 Decubitus ulcer of right ankle, stage 3 10/02/2014 01/29/2016 Stage IV pressure ulcer of hip 11/15/2011 11/19/2015 Overview: Underwent flap closure of left IT pressure ulcer by Dr. Bubba Jerez 06/13/11. Pressure ulcer stage IV 11/15/2011/02/2016 Overview: Coccyx - first noted 10/02. Osteomyelitis, [...] Encounters Date Type Department Care Team Description 11/17/2023 11:15 AM CDT Office Visit [facility] [address] [place] [address] Jak Keys, HILARIO Wound Check 11/17/2023 11:00 AM CDT Office Visit [facility] [address] [place] [address] Arrived 11/17/2023 Orders Only [facility] [address] [place] [address] Sarah Rodriguez PA <No scans attached> 11/17/2023 Travel 11/09/2023 9:45 AM CDT Office Visit [facility] [address] [place] [address] Consult 11/09/2023 Travel 11/01/2023 Telephone [facility] [address] [facility] [address] [place] [phone] Cardiology, Anw Follow Up 10/31/2023 Transcribe Orders [address] [address] Alex Mata MD 10/30/2023 9:15 AM CDT Office Visit [facility] [address] [place] [address] Jak Keys NP Consult 10/30/2023 Travel 10/26/2023 Telephone [facility] [address] [phone] Ramya Savage, RN Device Check 10/05/2023 Orders Only [facility] Scanner 1 scan: (1-Ord) [facility], NUCLEAR MEDICINE, 10/05/2023 10/01/2023 Travel 09/29/2023 2:20 PM AUTOMOTIVE PARTS COORDINATOR Anesthesia Event [facility] [address] [place] [address] Veronika Lozano MD Bakke, Amber N, JEWELRY DRILL OPERATOR 09/29/2023 11:14 AM AUTOMOTIVE PARTS COORDINATOR - 09/29/2023 7:10 PM AUTOMOTIVE PARTS COORDINATOR Hospital Encounter [facility] [address] [place] [address] Rosa Elena Sahu MD Zakaib, Abhinav Guerra MD [place], [place] [facility] [place] S/P dual chamber permanent pacemaker generator change on 12/21/2012 (Primary Dx); Displacement of atrial pacemaker leads, subsequent encounter Discharge Disposition: Home Self Care 09/29/2023 Travel 09/28/2023 Telephone [facility] [address] [place] [address] Olinda Nichols RN Appointment 09/20/2023 Orders Only [facility] Scanner 1 scan: (1-Ord) [facility], ARTERIAL DUPLEX LE BI, 09/20/2023 09/20/2023 Orders Only [facility] Scanner 1 scan: (1-Ord) [facility], ARTERIAL DUPLEX LE BI, 09/20/2023 09/19/2023 9:53 AM AUTOMOTIVE PARTS COORDINATOR - 09/19/2023 11:59 PM AUTOMOTIVE PARTS COORDINATOR Hospital Encounter [facility] [address] [place] [address] Rosa Elena Sahu MD Pacemaker lead failure, initial encounter; Preop testing 09/19/2023 Travel 09/15/2023 Telephone [facility] [address] [place] [address] Olinda Nichols RN Appointment 09/14/2023 Travel from [...] 11/09/2023 9:45 AM CDT RECHECK 131/68 Pulse 74 11/17/2023 11:21 AM CDT Temperature 36.4 ??C (97.6 ??F) 11/17/2023 1 1:21 AM CDT Respiratory Rate 16 11/17/2023 11:2 1 AM CDT Oxygen Saturation 97% 11/17/2023 11: 21 AM CDT Inhaled Oxygen Concentration - - Weight 60.7 kg (133 lb 14.4 oz) 09/29/2023 12:13 PM AUTOMOTIVE PARTS COORDINATOR Height 182.9 cm (6') 09/29/2023 12:13 PM AUTOMOTIVE PARTS COORDINATOR Body Mass Index 18.16 09/29/2023 12:13 PM AUTOMOTIVE PARTS COORDINATOR Plan of Treatment Upcoming Encounters Date Type Department Care Team (Late st Contact Info) Description 11/27/2023 1:00 PM CDT Office Visit [facility] [address] [place] [address] Lindy Angy, AuD [address] [place] [address] 11/28/2023 12:30 PM CDT Office Visit [facility] [address] [place] [address] Clarissa Murray, AuD [address] [place] [address] 01/03/2024 2:30 PM CDT Cardiac Device Check [facility] [place] [address] Health Maintenance Due Date Last Done Comments Hepatitis C screening for age 18-79 1972 Colonoscopy through age 75 1999 Lipids for age 45-75 07/14/2013 07/14/2008 Zoster (shingles) series for age 50+ (2 of 3) 03/26/2015 01/29/2015 Depression screening for age 12+ 08/15/2018 08/15/19 18 Tetanus booster 12/26/2018 12/26/2008, /03/2007, 03/21/1997 AAA screening age 65-74 2019 Medicare Wellness for age 65+ 2019 Pneumococcal series for age 65+ (1 of 1 - PCV) 2019 COVID-19 vaccine series (3 - season) 2023 09/14/2020, 08/20/2020 Influenza for age 65+ 03/24/2024 03/25/2011, 006 Tdap Completed 12/26/2008, 09/01/2006 Medical Devices Implanted Type Area Executive Creative Director Device Identifier Shelf Expiration Date Model / Serial / Lot Standard Pacemaker-12/21 Implanted:11/23 by Judson Jenkins MD (Quantity not on file) Standard Pacemaker Medtronic [id number] / [id number] / Procedures Procedure Name Priority Date/Time Associated Diagnosis Comments SCAN-NUCLEAR MEDICINE 10/05/2023 12:00 AM CDT EKG 12 LEAD Routine 09/29/2023 6:34 PM AUTOMOTIVE PARTS COORDINATOR XR CHEST 2 VIEWS PA AND LATERAL SHOLA 09/29/2023 6:14 PM AUTOMOTIVE PARTS COORDINATOR CV PROCEDURE TO BE PERFORMED Routine 09/29/2023 3:56 PM AUTOMOTIVE PARTS COORDINATOR EP PPM Routine 09/29/2023 2:54 PM AUTOMOTIVE PARTS COORDINATOR SUPRAGLOTTIC-LMA Routine 09/29/2023 2:38 PM AUTOMOTIVE PARTS COORDINATOR EKG 12 LEAD Preop 09/29/2023 12:22 PM AUTOMOTIVE PARTS COORDINATOR CBC W PLT NO DIFF Preop 09/29/2023 12: 17 PM AUTOMOTIVE PARTS COORDINATOR BASIC METABOLIC PANEL Preop 09/29/2023 12:16 PM AUTOMOTIVE PARTS COORDINATOR SCAN-CARDIAC STRIP 09/29/2023 12 :00 AM AUTOMOTIVE PARTS COORDINATOR SCAN-ULTRASOUND REPORT 09/20/2023 12:00 AM AUTOMOTIVE PARTS COORDINATOR SCAN-ULTRASOUND REPORT 09/20/2023 12:00 AM AUTOMOTIVE PARTS COORDINATOR IR VENOGRAM UPPER EXTREMITY LEFT Routine 09/19/2023 11:18 AM AUTOMOTIVE PARTS COORDINATOR Pacemaker lead failure, initial encounter Preop testing LIPID PANEL Early AM 07/14/2008 3:00 AM AUTOMOTIVE PARTS COORDINATOR from Last 3 Months or Most Recently Relevant to Health Maintenance Results * SCAN-NUCLEAR MEDICINE (10/05/2023 12:00 AM CDT) Anatomical Region Laterality Modality Other Scanner OTHER * EKG 12 LEAD (09/29/2023 6:34 PM AUTOMOTIVE PARTS COORDINATOR) Only the most recent of2 resultswithin the [...] NOW QTc 525 ms BEYOND NOW P Mesa 82 degrees BEYOND NOW R Mesa 94 degrees BEYOND NOW T Mesa 48 degrees BEYOND NOW 09/29/2023 6:34 PM AUTOMOTIVE PARTS COORDINATOR 09/30/2023 7:15 PM AUTOMOTIVE PARTS COORDINATOR Narrative BEYOND NOW - 09/30/2023 7:15 PM AUTOMOTIVE PARTS COORDINATOR Test Indication: POST Johanny Betancourt NP EKG ORD BEYOND NOW [place], [place] * XR Chest PA and Lateral (09/29/2023 6:14 PM AUTOMOTIVE PARTS COORDINATOR) Anatomical Region Laterality Modality CHEST, THORAX, Lung, HEART Digit al Radiography Impressions 09/29/2023 6:32 PM AUTOMOTIVE PARTS COORDINATOR Comparison exam February 09, 2012. Interval placement [...] normal No pneumothorax. Narrative 09/29/2023 6:32 PM AUTOMOTIVE PARTS COORDINATOR INDICATION Pacemaker placement TECHNIQUE 2 views of the chest COMPARISON 02/09/2012. Johanny Betancourt NP GENERAL IMAGING * EP Procedure to be Performed (09/29/2023 3:56 PM AUTOMOTIVE PARTS COORDINATOR) Narrative Rosa Elena Sahu MD - 09/29/2023 3:56 PM AUTOMOTIVE PARTS COORDINATOR Rosa Elena Sahu MD ? 09/29/2023 ??4:08 PM [facility] DUAL CHAMBER PACEMAKER IMPLANTATION PROCEDURE NOTE Mciheal Rene [id number] Date: 09/29/2023 Age: 68 y.o. Birthdate: 1955 Sex: male Referring Physician: ??Alex Mata MD Recycling Sorter/Alteration Tailor Apprentice: Rosa Elena Sahu MD Assistants: None Indications [...] Dr. Modi. Full report to follow in [facility] Rosa Elena Sahu MD Electrophysiology Staff Pager: [phone] 09/29/2023 3:57 PM Rosa Elena Sahu MD TERRAZZO TILE MAKER OR D * EP PPM (09/29/2023 2:54 PM AUTOMOTIVE PARTS COORDINATOR) Anatomical Region Laterality Modality X-Ray Angiograph y, X-Ray Angiography 09/29/2023 2:54 PM AUTOMOTIVE PARTS COORDINATOR Narrative Transcriptions Rosa Elena Sahu MD - 09/29/2023 4:26 PM CST [facility] [place] [facility] Electrophysiology Implant Report Name: MICHEAL RENE Event Date: 09/29/2023 Excell[employer] ID #: [id number] Date: 1955 Gender: Male Age: 68 [facility] #: [id number] Procedure Performed By: ROSA ELENA SAHU [facility] Referring Physician: Dr. Dariel Modi Implant Procedure [...] had a dual chamber pacemaker implanted in nd had his last generator change was in [...] denies fevers, chills or rigors. Consent & Charleston Protocol [place] protocol was followed. TIME OUT conducted just [...] Pulse Generator Detail Implanted Status Pocket Location Executive Creative Director Model Serial Number 09/29/2023 Implanted Left Pectoral [employer] Daisy XT DR BUSTAMANTE [id number] 12/21/2012 Explanted Left Pectoral [employer]. Chada Valery STOVALL [id number] 07/14/2008 Explanted Left Pectoral [employer]. EnRhythm [id number] Lead Detail Implanted Status Chamber Location Executive Creative Director Model Serial Number 07/14/2008 Chronic Right Ventricle Septum [employer]onic[employer] Inc. CapSureFix [id number] 07/14/2008 Capped Right Atrium Right Appendage Medtronic[employer] Inc. CapSureFixNovus [id number] 09/29/2023 Implanted Right Atrium Right Appendage [employer]onic[employer] Inc. CapSureFixNovus [id number] Measurement Club Former P/R Wave (mV) Threshold (V) Pulse Width [...] Raymond Hendrix CVT Scrub Noel Marroquin EPT Wood Floor Refinisher Yelitza Jane EPT Wood Floor Refinisher Medications Ordered and Administered Start Time Stop [...] of Final Rosa Elena Sahu MD Implanting Recycling Sorter [facility] [address] [place] [address] [place] [address] (p) [phone](f) Rosa Elena Sahu MD CV IMAGING * HCHG MASK PR5 (09/29/2023 2:38 PM AUTOMOTIVE PARTS COORDINATOR) Narrative Doretha Kolb, JEWELRY DRILL OPERATOR - 09/29/2023 2:38 PM AUTOMOTIVE PARTS COORDINATOR Doretha Kolb, JEWELRY DRILL OPERATOR ? 09/29/2023 ??2:39 PM Procedure: Supraglottic Patient location during procedure: OR Supraglottic Airway Properties Mask Ventilation: easy Type: unique Tube Size: 4 Placement Verification: auscultation and CO2 detection Assessment Assessment: atraumatic Airway Intervention: repositioned Cuff Volume: 5 Veronika Lozano MD ANESTHESIA PX N OTE ORDERABLES * (ABNORMAL) CBC with Platelets no Differential (09/29/2023 12:17 PM AUTOMOTIVE PARTS COORDINATOR) [facility] WHITE BLOOD COUNT 5.7 4.5 - 11.0 thou/cu mm 09/29/2023 12:30 PM [facility] RED BLOOD COUNT 3.53(L) 4.30 - 5.90 mil/cu mm 09/29/2023 12:30 PM [facility] HEMOGLOBIN 10.0(L) 13.5 - 17.5 g/dL 09/29/2023 12:30 PM [facility] HEMATOCRIT 31.5(L) 37.0 - 53.0 % 09/29/2023 12:30 PM [facility] MCV 89 80 - 100 fL 09/29/2023 12:30 PM [facility] MCH 28.3 26.0 - 34.0 pg 09/29/2023 12:30 PM [facility] MCHC 31.7(L) 32.0 - 36.0 g/dL 09/29/2023 12:30 PM [facility] RDW 13.2 11.5 - 15.5 % 09/29/2023 12:30 PM [facility] PLATELET COUNT 232 140 - 440 thou/cu mm 09/29/2023 12:30 PM [facility] MPV 7.9 6.5 - 11.0 fL 09/29/2023 12:30 PM [facility] NRBC 0.0 % 09/29/2023 12:30 PM [facility] ABS NRBC 0.0 thou /cu mm 09/29/2023 12:30 PM [facility] Blood BLOOD SPECIMEN / Unknown Non-Lab Venipuncture / Unknown 09/29/2023 12:17 PM AUTOMOTIVE PARTS COORDINATOR 09/29/2023 12:23 PM AUTOMOTIVE PARTS COORDINATOR Rosa Elena Sahu MD HEMATOLOGY [facility] [address] [place] [address], * (ABNORMAL) Basic Metabolic Panel (09/29/2023 12:16 PM AUTOMOTIVE PARTS COORDINATOR) SODIUM 139 136 - 145 mmol/L 09/29/2023 12:51 PM [facility] POTASSIUM 4.4 3.5 - 5.1 mmol/L 09/29/2023 12:51 PM [facility] CHLORIDE 106 98 - 107 mmol/L 09/29/2023 12:51 PM [facility] CO2,TOTAL 23 22 - 29 mmol/L 09/29/2023 12:51 PM [facility] ANION GAP 10 5 - 18 09/29/2023 12:51 PM [facility] GLUCOSE 103(H) 70 - 99 mg/dL 09/29/2023 12:51 PM [facility] CALCIUM 9.0 8.8 - 10.2 mg/dL 09/29/2023 12:51 PM [facility] BUN 21 8 - 23 mg/dL 09/29/2023 12:51 PM [facility] CREATININE 0.47(L) 0.70 - 1.20 mg/dL 09/29/2023 12:51 PM [facility] BUN/CREAT RATIO 45(H) 10 - 20 12:51 PM [facility] eGFR >90 >90 mL/min/1.7 3m2 09/29/2023 12:51 PM AUTOMOTIVE PARTS COORDINATOR [facility] Comment:As of 2021, eG FR is calculated by the CKD-EPI creatinine equation without race adjustment. ??eGFR can be influenced by muscle mass, exercise, and diet. ??The reported eGFR is an estimation only and is only applicable if the renal function is stable. Blood BLOOD SPECIMEN / Unknown Non-Lab Venipuncture / Unknown 09/29/2023 12:16 PM AUTOMOTIVE PARTS COORDINATOR 09/29/2023 12:23 PM AUTOMOTIVE PARTS COORDINATOR Rosa Eelna Sahu MD CHEMISTRY [facility] [address] [place] [address], * SCAN-CARDIAC STRIP (09/29/2023 12:00 AM AUTOMOTIVE PARTS COORDINATOR) Narrative 09/29/2023 12:00 AM AUTOMOTIVE PARTS COORDINATOR Ordered by an unspecified provider. Other Clinical Staff OTHER * SCAN-ULTRASOUND REPORT (09/20/2023 12:00 AM AUTOMOTIVE PARTS COORDINATOR) Only the most recent of2 resultswithin the time period is included. Anatomical Region Laterality Modality Other Scanner OTHER * IR VENOGRAM UPPER EXTREMITY LEFT (09/19/2023 11:18 AM AUTOMOTIVE PARTS COORDINATOR) Anatomical Region Laterality Modality ARM L X-Ray Angiograph y Narrative 09/19/2023 1:33 PM AUTOMOTIVE PARTS COORDINATOR Examination: Left upper extremity venogram. Indication: Lead [...] Tremayne Kathleen MD Vascular & Interventional Radiology [facility] Pager: [phone] [phone] [employer] Rosa Elena Sahu MD IR * Lipid Panel - In AM (07/14/2008 3:00 AM AUTOMOTIVE PARTS COORDINATOR) CHOLESTEROL,TOTAL 141 110 - 199 mg/dL [facility] TRIGLYCERIDES 41 40 - 149 mg/dL [facility] HDL CHOLESTEROL 45 >40 mg/dL [facility] CHOL/HDL RATIO 3.13 <4.51 [facility] LDL CHOLESTEROL 88 <131 mg/dL [facility] PATIENT STATUS Fasting [facility] Blood specimen (specimen) BLOOD SPECIMEN / Unknown 07/14/2008 3:00 AM AUTOMOTIVE PARTS COORDINATOR 07/14/2008 1:52 AM AUTOMOTIVE PARTS COORDINATOR Phyllis Sánchez MD CHEMISTRY [facility] INTERNAL ZIP [address] [place] [address] from Last 3 Months or Most Recently [...] months since positive culture): resides in acute/senior care care, receiving hemodialysis, has chronic open wounds/skin [...] 12:49 PM 12/25/2015 1:24 PM Care Teams Water Tester Relationship Specialty Start Date End Date Alex Mata MD [address] [place] [address] PCP - General Family Practice 02/04/20 Ana Mayers [address] [place] [address] Nurse Practitioner 03/02/11 Jak Keys NP [facility] [address], [place] [address] Nurse Practitioner Nurse Practitioner - Adult 10/30/23
--- OUTSIDE RECORDS SUMMARY | 2023-11-20 11:03 | XMS_ITS | Continuity of Care Document ---
Author Name Unknown Address [address] [place] [address] Phone [phone] Organization [facility] Address [address] [place] [address] Care Team Providers Care Laboratory Phlebotomist Name Role Phone CHETNA MERAZ Primary Care Provider [phone] RAHUL OCONNOR Band Saw Operator Cake Cutting [phone] Assessment Encounter Date Assessment Date Assessment LastModified [...] Orders methenamine hippurate 1 gram tablet 2023 [facility], [address] [place], [place], [id number], 23:05:37 oxybutynin chloride ER 15 mg tablet,exte nded release 24 hr 2023 024 [facility] [address]484, [address] [place], [place], [phone], 23:04:50 Patient TargetsNo targets recorded. Patient InstructionsNo instructions recorded. Reason for Referral None Reported. Procedures Surgical History Date Name Laterality Status Provider Name and Address Organization Details Recorded Time 04/10/202 4 COMPLEX VISIT completed Jono Pagan MD [address] [facility],[address], [place], [address], [facility] [place] 11/01/2023 08:09:54 excision of pressure injury completed Jono Pagan MD [address] [facility],[address], [place], [address], [facility] 09/28/2022 11:00:08 maintenance procedure for cardiac pacemaker system completed Veronika hwang [facility] 11/01/2023 11:05:10 Imaging Results None recorded. Procedure Notes None recorded. Medical Equipment None Reported. Allergies Allergen ID Allergen Name Allergen Category Reaction Reaction Severity Criticality Documentation Date Start Date Code Code System Note Provider Name and Address Organization Details Recorded Time 706487 Medicinal product containin g cephalosp pao and acting as antibacte rial agent (product) medicatio n Not available Not available Not available 09/27/2021 05144 9009 SNOMED Nasreen Maritza eri [facility] 2 12:43:20 392013 shellfish derived food,medi cation Not available Not available Not available 11/01/2023 Veronika hwang [facility] 4 11:03:08 Medications Name Sig Start Date [...] Updated DateTime 11/01/2023 182.88 cm 18.7 kg/m2 65546.75 g Veronika Begum [facility] 11/01/2023 11:02:57 Social History Question Answer Notes LastModified by Organizat ion Details LastModified Time Tobacco Smoking Status Former Smoker Atilio Mee hwang [facility] 02/18/2021 14:55:09 What Is Your Level [...] Recorded Time IPV 11/19/2004 completed Mindy hwang [facility] 04/28/2023 11:39:35 COVID-19, mRNA, LNP-S, PF, 30 mcg/0.3 mL dose 08/20/2020 completed Mindy hwang [facility] 04/28/2023 11:39:35 COVID-19, mRNA, LNP-S, PF, 30 mcg/0.3 mL dose 09/14/2020 completed Mindy hwang [facility] 04/28/2023 11:39:35 Pneumococcal conjugate PCV20, polysaccharide MZR126 conjugate, adjuvant, PF 12/01/2022 completed Mindy hwang [facility] 04/28/2023 11:39:35 influenza, unspecified formulation 05/24/2006 completed Mindy hwang [facility] 04/28/2023 11:39:35 Tdap 09/01/2006 completed Mindy hwang [facility] 04/28/2023 11:39:35 Tdap 12/26/2008 completed Mindy hwang [facility] 04/28/2023 11:39:35 zoster live 01/29/2015 completed Mindy hwang [facility] 04/28/2023 11:39:35 Influenza, seasonal, injectable, preservative free 03/25/2011 completed Mindy hwang [facility] 04/28/2023 11:39:35 Influenza, seasonal, injectable, preservative free 05/24/2012 completed Mindy hwang [facility] 04/28/2023 11:39:35 Td (adult), 2 Lf tetanus toxoid, preservative free, adsorbed 03/21/1997 completed Mindy hwang [facility] 04/28/2023 11:39:35 Hep B, adult 09/01/2006 completed Mindy hwang [facility] 04/28/2023 11:39:35 Hep B, adult 11/19/2004 completed Mindy Solitarioalice eri [facility] 04/28/2023 11:39:35 Hep B, adult 03/30/2007 completed Mindy Solitarioalice eri [facility] 04/28/2023 11:39:35 Hep A, adult 09/30/2002 completed Mindy Kassialice hwang [facility] 04/28/2023 11:39:35 Hep A, adult 11/19/2004 completed Mindy Solitarioalice eri, [facility] 04/28/2023 11:39:35 Hep A, adult 05/01/2003 completed Mindy Kira hwang [facility] 04/28/2023 11:39:35 typhoid, ViCPs 09/01/2006 completed Mindycarlos Solitarioalice hwang [facility] 04/28/2023 11:39:35 typhoid, ViCPs 09/30/2002 completed Mindy Solitarioalice hwang [facility] 04/28/2023 11:39:35 Past Encounters Encounter ID Performer Location Encounter Start Date Encounter Closed Date Diagnosis/Indication Diagnosis SNOMED-CT Code [id number] Jono Pagan MD [facility] [address] [place] [id number] 11/01/2023 10:52:02 11/02/2023 14:01:41 Neurogenic bladder 488468958 Spinal cord injury 12485 004 Spasm of bladder 7417244 06 Recurrent urinary tract infection [id number] Health Concerns Section Related Observation LastModified by Organization Detai ls LastModified Time None Recorded Concern Status LastModified by Organization Details LastModified Time None Recorded Payers Encounter Date Sequence Insurance Name Policy Number Policy Quinones Covered Member ID Quinones Member ID Guarantor Name 11/01/2023 [facility] [id number] Levar Rene Notes Date Note Type Note [...] catheter when traveling. Jono Pagan MD [address] [facility] [facility],[address], [place], [address], [facility] 11/01/2023 23:05:58
== END 2023-11-20 11:01 | disposition home or self-care (01) ==
LOC: WOUND 11:00
PROVIDERS: PCP Family Medicine; Visit Provider Nurse Practitioner Family
DX: L89.314 Pressure ulcer of right buttock, stage 4 (principal); L89.514 Pressure ulcer of right ankle, stage 4; L89.893 Pressure ulcer of other site, stage 3; L89.614 Pressure ulcer of right heel, stage 4; L89.894 Pressure ulcer of other site, stage 4; Z99.3 Dependence on wheelchair
CPT/HCPCS: 11042; 11043; 88307; 88311; 97597; 97602

== ENCOUNTER 2023-12-04 11:06 | Outpatient (CLI) | payer OTHER, SELFPAY ==
--- OUTSIDE RECORDS SUMMARY | 2023-12-04 11:08 | XMS_ITS | Data Portability ---
Author Name Unknown Address [address] [place] [address] Phone [phone] Organization [facility], [facility] Address [address] [place] [address] Care Team Providers Care Children'S Tutor Name Role Phone CHETNA MERAZ Primary Care Provider RAHUL OCONNOR Elder Counselor Assessment Encounter Date Assessment Date Assessment LastModified [...] None recorded. Lab culture, urine 2020 021 [facility], [address], [place], [address], 07:39:35 urinalysis, dipstick 2020 021 [email or web address] Not available 11:34:22 urinalysis, dipstick 2020 021 bbeckers Not available 14:48:24 culture, urine 2020 021 [facility], [address], [place], [address], 09:38:15 Referral None recorded. Procedures None recorded. Surgeries None recorded. Imaging US, kidney 2021 022 [facility] Rad[facility], [address] [place], [address], 2 09:00:29 Medication Orders methenamine hippurate 1 gram tablet 2023 024 [facility]40572, [address] [place], [place], [id number], 4 23:05:37 oxybutynin chloride ER 15 mg tablet,exte nded release 24 hr 2023 024 [facility] #45272, [address] [place], [place], [id number], 4 23:04:50 oxybutynin chloride ER 15 mg tablet,exte nded release 24 hr 2022 023 [facility] #39167, [address] [place], [place], [id number], 3 12:15:06 methenamine hippurate 1 gram tablet [address] [facility]67514, [address] [facility] [place], [id number], 4 23:05:30 nitrofurant oin macrocrysta l 50 mg capsule [address] [facility]33303, [address] [facility] [place], [id number], 4 08:10:56 oxybutynin chloride ER 15 mg tablet,exte nded release 24 hr 2021 022 [facility] #98571, [address] [facility] [place], [id number], 2 12:53:22 nitrofurant oin macrocrysta l 50 mg capsule [address] [facility] #94306, [address] [place], [place] [address] [place], [id number], 4 08:10:56 Bactrim DS 800 mg-160 mg tablet [address] [facility], [address] [place] [address], [address], 2 12:43:46 nitrofurant oin macrocrysta l 50 mg capsule [address] [facility], [address] [place] [address], [address], 4 08:10:56 Patient TargetsNo targets recorded. Patient InstructionsNo instructions recorded. Reason for Referral None Reported. Results Created Date Observation Date Name Description Value Unit Range Abnormal Flag LastModifiedBy Organization Detail LastModifiedTime 05/12/2021 urina lysis , dipst ick Color-Status Yellow Not Available [facility] [address], [place], [address], 05/12/2021 11:33:40 05/12/2021 urina lysis , dipst ick Clarity-Stat us Cloudy Not Available [facility] [address], [place], [address], 05/12/2021 11:33:40 05/12/2021 urina lysis , dipst ick pH-Status 7.5 Not Available [facility] [address], [place], [address], 05/12/2021 11:33:40 05/12/2021 urina lysis , dipst ick Nitrates-Sta tus positi ve Not Available [facility] [address], [place], [address], 05/12/2021 11:33:40 05/12/2021 urina lysis , dipst ick Blood-Status Small Not Available [facility] [address], [place], [address], 05/12/2021 11:33:40 05/12/2021 urina lysis , dipst ick Leuko-Status Large Not Available [facility] [address], [place], [address], 05/12/2021 11:33:40 02/18/2021 urina lysis , dipst ick Color-Status Straw Not Available [facility] [address], [place], [address], 02/18/2021 14:44:35 02/18/2021 urina lysis , dipst ick Clarity-Stat us Cloudy Not Available [facility] [address], [place], [address], 02/18/2021 14:44:35 02/18/2021 urina lysis , dipst ick Glucose-Stat us Negati ve Not Available [facility] [address], [place], [address], 02/18/2021 14:44:35 02/18/2021 urina lysis , dipst ick Bilirubin-St atus Negati ve Not Available [facility] [address], [place], [address], 02/18/2021 14:44:35 02/18/2021 urina lysis , dipst ick Ketones-Stat us Negati ve Not Available [facility] [address], [place], [address], 02/18/2021 14:44:35 02/18/2021 urina lysis , dipst ick Sp Orient-Stat us 1.015 Not Available [facility] [address], [place], [address], 02/18/2021 14:44:35 02/18/2021 urina lysis , dipst ick Nitrates-Sta tus positi ve Not Available [facility] [address], [place], [address], 02/18/2021 14:44:35 02/18/2021 urina lysis , dipst ick Blood-Status Trace Not Available [facility] [address], [place], [address], 02/18/2021 14:44:35 02/18/2021 urina lysis , dipst ick Leuko-Status Large Not Available [facility] [address], [place], [address], 02/18/2021 14:44:35 02/19/20 21 02/18/2021 URINE CULTU RE final report microb iology result s abnormal Not Available [facility] [address], [place], [address], 02/20/2021 09:38:14 05/06/20 21 05/06/2021 URINE CULTU RE final report microb iology result s abnormal Not Available [facility] [address] [facility] [address], [place], [address], 05/08/2021 07:39:35 10/07/19 22 10/05/2021 US, aaliyah zimmerman No observ ation record ed. [address] Radiology Department [address] [place], [address], 09/28/2022 13:47:50 Result Notes None recorded. Procedures Surgical History Date Name Laterality Status Provider Name and Address Organization Details Recorded Time COMPLEX VISIT completed Jono Pagan MD [address] [facility], [place], [address], [facility] 11/01/2023 08:09:54 excision of pressure injury completed Jono Pagan MD [address], [place], [address], [facility] 09/28/2022 11:00:08 maintenance procedure for cardiac pacemaker system completed Veronika hwang [facility] 11/01/2023 11:05:10 Imaging Results Imaging Date Name Status LastModified by Organiz ation Details LastModified Time 10/05/2021 US, kidney completed [address] Radiology Department [address] [place], [address], 09/28/2022 13:47:50 Procedure Notes None recorded. Medical Equipment None Reported. Allergies Allergen ID Allergen Name Allergen Category Reaction Reaction Severity Criticality Documentation Date Start Date Code Code System Note Provider Name and Address Organization Details Recorded Time 369891 Medicinal product containin g cephalosp pao and acting as antibacte rial agent (product) medicatio n Not available Not available Not available 09/27/2021 35672 9009 SN[address] h[address] [facility] 2 12:43:20 039482 shellfish derived food,medi cation Not available Not available Not available 11/01/[address] [facility] 4 11:03:08 Medications Name Sig [...] Updated DateTime 09/28/2022 182.88 cm 19.4 kg/m2 77297.[address] [facility] 09/28/2022 10:55:01 Date Recorded Body height Body mass index (BMI) Body weight Provider Name and Address Organization Details Last Updated DateTime 04/28/2023 182.88 cm 19.4 kg/m2 [address]79.[address] [facility] 04/28/2023 11:39:29 Date Recorded Body height Body mass index (BMI) Body weight Provider Name and Address Organization Details Last Updated DateTime 10/12/2023 182.88 cm 19.4 kg/m2 70398.[address] [facility] 10/12/2023 12:26:19 Date Recorded Body height Body mass index (BMI) Body weight Provider Name and Address Organization Details Last Updated DateTime 11/01/2023 182.88 cm 18.7 kg/m2 31199.75 g Veronika Kotharijacqueline [facility] 11/01/2023 11:02:57 Date Recorded Body height Body mass index (BMI) Body weight Provider Name and Address Organization Details Last Updated DateTime 02/18/2021 182.88 cm 19.4 kg/m2 98923.71 g Atilio Caban [facility] 02/18/2021 14:51:29 Date Recorded Body height Body mass index (BMI) Body weight Provider Name and Address Organization Details Last Updated DateTime 05/06/2021 182.88 cm 19.4 kg/m2 75736.71 g Chelsea Medrano [facility] 05/06/2021 12:47:45 Date Recorded Body height Body mass index (BMI) Body weight Provider Name and Address Organization Details Last Updated DateTime 09/27/2021 182.88 cm 19.4 kg/m2 64319.71 g Nasreen Salas [facility] 09/27/2021 12:43:07 Social History Question Answer Notes LastModified by Organizat ion Details LastModified Time Tobacco Smoking Status Former Smoker Atilio Caban [facility] 02/18/2021 14:55:09 What Is Your Level [...] Recorded Time IPV 11/19/2004 completed Mindy hwang [facility] 04/28/2023 11:39:35 COVID-19, mRNA, LNP-S, PF, 30 mcg/0.3 mL dose 08/20/2020 completed Mindy hwang [facility] 04/28/2023 11:39:35 COVID-19, mRNA, LNP-S, PF, 30 mcg/0.3 mL dose 09/14/2020 completed Mindy hwang [facility] 04/28/2023 11:39:35 Pneumococcal conjugate PCV20, polysaccharide [id number] conjugate, adjuvant, PF 12/01/2022 completed Mindy hwang [facility] 04/28/2023 11:39:35 influenza, unspecified formulation 05/24/[address] [facility] 04/28/2023 11:39:35 Tdap 09/01/2006 maki hwang [facility] 04/28/2023 11:39:35 Tdap 12/26/2008 [facility] 04/28/2023 11:39:35 zoster live 01/29/[address] [facility] 04/28/2023 11:39:35 Influenza, seasonal, injectable, preservative free 03/25/[address] [facility] 04/28/2023 11:39:35 Influenza, seasonal, injectable, preservative free 05/24/2012 completed Mindy hwang, [facility] 04/28/2023 11:39:35 Td (adult), 2 Lf tetanus toxoid, preservative free, adsorbed 03/21/1997 completed Mindy hwang, [facility] 04/28/2023 11:39:35 Hep B, adult 09/01/2006 completed Mindy hwang, [facility] 04/28/2023 11:39:35 Hep B, adult 11/19/2004 completed Mindy hwang, [facility] 04/28/2023 11:39:35 Hep B, adult 03/30/2007 completed Mindy hwang, [facility] 04/28/2023 11:39:35 Hep A, adult 09/30/2002 completed Mindy hwang, [facility] 04/28/2023 11:39:35 Hep A, adult 11/19/2004 completed Mindy hwang, [facility] 04/28/2023 11:39:35 Hep A, adult 05/01/2003 completed Mindy hwang, [facility] 04/28/2023 11:39:35 typhoid, ViCPs 09/01/2006 completed Mindy hwang, [facility] 04/28/2023 11:39:35 typhoid, ViCPs 09/30/2002 completed Mindy hwang, [facility] 04/28/2023 11:39:35 Past Encounters Encounter ID Performer Location Encounter Start Date Encounter Closed Date Diagnosis/Indication Diagnosis SNOMED-CT Code [id number] MD KIKE [facility] [address] [place] [id number] 02/18/2021 14:23:42 02/19/2021 12:13:21 Neurogenic bladder 899202374 Spinal cord injury 71080 004 Spasm of bladder 9515853 06 Recurrent urinary tract infection 343113121 Acute urin estefany tract infection [id number] Marlene Greer [facility] [address] [place] [id number] 05/06/2021 11:58:15 05/11/2021 03:52:30 Abnormal urine 101365392 [id number] MD [facility]IKE [facility] [address] [place] [id number] 09/27/2021 12:37:54 10/27/2021 09:29:43 Neurogenic bladder 881829888 Spinal cord injury 31764 004 Spasm of bladder 1138320 06 Recurrent urinary tract infection [id number] MD KIKE [facility] [address] [place] [id number] 09/28/2022 10:53:21 10/01/2022 11:26:52 Neurogenic bladder 548002565 Spinal cord injury 47261 004 Spasm of bladder 0795456 06 Recurrent urinary tract infection [id number] MD KIKE [facility] [address] [place] [address] 04/28/2023 11:30:11 05/04/2023 11:13:13 Neurogenic bladder 185072259 Spinal cord injury 49457 004 Spasm of bladder 9129943 06 Recurrent urinary tract infection [id number] MD KIKE [facility] [address] [place] [address] 11/01/2023 10:52:02 11/02/2023 14:01:41 Neurogenic bladder 324209478 Spinal cord injury 59900 004 Spasm of bladder 8165476 06 Recurrent urinary tract infection Health Concerns Section Related Observation LastModified by Organization Detai ls LastModified Time None Recorded Concern Status LastModified by Organization Details LastModified Time None Recorded Advance Directives Directive None Recorded Payers Encounter Date Sequence Insurance Name Policy Number Policy Quinones Covered Member ID Quinones Member ID Guarantor Name 11/01/2023 [facility] [id number] Levar Rios [facility] Khanh Rene 04/28/2023 1 [facility] (MEDICARE REPLACEMENT/AD VANTAGE - PPO) [id number] Khanh Rene [id number] Khanh Rene 09/28/2022 [facility] [employer] [id number] Levar Rios [facility] Khanh Rene 09/27/2021 1 [facility] (MEDICARE REPLACEMENT/AD VANTAGE - PPO) [id number] Khanh Rene [id number] Khanh Rene 05/06/2021 [facility] [id number] Levar Rios [facility] Khanh Rene 02/18/2021 [facility] [id number] Levar Rios [facility] Khanh Rene Notes Date Note Type [...] occasional low grade fever. Jono Pagan MD [address] [place] [address],[address], [address], [facility] 02/18/2021 22:42:35 05/06/2021 text/html HPI Notes: Pt he re for UA/UC due to low back ache, cloudy urine with sediment present X 1.5 weeks. pt given cipro 500mg BID pending culture. KN, CLIFF hwang [facility] 07/20/2021 14:23:40 09/27/2021 text/html HPI [...] over last 7 months. Jono Pagan MD [address] [place] [address],[address], [place], [address], [facility] 09/27/2021 13:13:14 09/28/2022 text/html [...] upper tract abnormality. Jono Pagan MD [address] [facility], [place], [address], [facility] 09/28/2022 13:48:55 04/28/2023 text/html [...] since the summer. Jono Pagan MD [address] [facility] [address], [place], [address], [facility] 04/28/2023 12:27:52 11/01/2023 text/html HPI Notes: [...] catheter when traveling. Jono Pagan MD [address] [facility] [address] [address], [place], [address], [facility] 11/01/2023 23:05:58
--- OUTSIDE RECORDS SUMMARY | 2023-12-04 11:08 | XMS_ITS | Clinical Summary ---
Author Name Unknown Organization [email or web address] Address [place], [place] [address] Care Team Providers Care Specification Manager Name Role Phone Talib Ana Unavailable Alex Mata MD Primary Care Provider + Jak Keys PATIENT INTAKE COORDINATOR Unavailable [phone] Allergies Active Allergy Reactions Criticality Noted Date Comments Blood-Group Specific Substance Other - Describe In Comment Field 04/19/2021 Patient has Sims a (Fya) antibody. Blood products may be delayed. Draw patient 24 hours prior to transfusion. For Promedior testing, draw one red top and two [...] 325 mg by mouth once daily. Active Active Problems Problem Noted Date Diagnosed Date Asymmetrical sensorineural hearing loss 11/30/19 24 Anemia, chronic disease 11/17/2023 Bilateral cataracts 11/17/2023 [...] Overview: 09/20/23 bilateral lower extremity arterial ultrasound ([facility]) S/P flap graft 03/06/2020 Neurogenic [...] knee surgery 10/30/2023 10/30/2023 History of appendectomy 10/30/2023 040 02/2024 Acute osteomyelitis of right ankle or foot 10/30/2023 10/30/2023 Leg wound, right 12/24/2019 02/25/2020 Open wound of left heel 12/24/2019 0810/2019 Pressure injury of sacral region, stage 4 [...] Encounters Date Type Department Care Team Description 11/28/2023 12:30 PM CDT Office Visit [facility] [address] [place] [address] Clarissa Murray AuD Hearing Aid (consult) 11/27/2023 1:00 PM CDT Office Visit [facility] [address] [place] [address] Angy Israel AuD Hearing Problem (Hearing test) 11/27/2023 Travel 11/23/2023 Travel 11/20/2023 Lab Requisition [facility] [phone] Unknown, Doctor 11/17/2023 11:15 AM CDT Office Visit [facility] [address] [place] [address] Jak Keys NP Wound Check 11/17/2023 11:00 AM CDT Office Visit [facility] [address] [place] [address] 11/17/2023 Orders Only [facility] [address] [place] [address] Sarah Rodriguez PA <No scans attached> 11/17/2023 Travel 11/09/2023 9:45 AM CDT Office Visit [facility] [address] [place] [address] Consult 11/09/2023 Travel 11/01/2023 [place] [facility] [place] [address] [phone] Cardiology, Anw Follow Up 10/31/[address] [facility] [address] [place] [address] Alex Mata MD 10/30/2023 9:15 AM CDT Office Visit [facility] [address] [address] Jak Keys NP Consult 10/30/2023 Travel 10/26/2023 Telephone [facility] [place] [address] [phone] Ramya Savage, RN Device Check 10/05/2023 Orders Only [facility] Scanner 1 scan: (1-Ord) [facility], NUCLEAR MEDICINE, 10/05/2023 10/01/2023 Travel 09/29/2023 2:20 PM COMPANION Anesthesia Event [facility] [address] [place] [address] Veronika Lozano MD Bakke, Amber N, BOG WORKER 09/29/2023 11:14 AM COMPANION - 09/29/2023 7:10 PM COMPANION Hospital Encounter [facility] [address] [place] [address] Rosa Elena Sahu MD Zakaib, Abhinav Guerra MD [facility], [facility] [place] S/P dual chamber permanent pacemaker generator change on 12/21/2012 (Primary Dx); Displacement of atrial pacemaker leads, subsequent encounter Discharge Disposition: Home Self Care 09/29/2023 Travel 09/28/2023 Telephone [facility] [address] [place] [address] Olinda Nichols, RN Appointment 09/20/[address] [facility] Scanner 1 scan: (1-Ord) [facility], ARTERIAL DUPLEX LE BI, 09/20/2023 09/20/2023 Orders Only [facility] Scanner 1 scan: (1-Ord) [facility], ARTERIAL DUPLEX LE BI, 09/20/2023 09/19/2023 9:53 AM COMPANION - 09/19/2023 11:59 PM COMPANION Hospital Encounter [facility] Medical Imaging [address] [place] [address] Rosa Elena Sahu MD Pacemaker lead failure, initial encounter; Preop testing 09/19/2023 Travel 09/15/2023 Telephone [facility] [address] [place] [address] Olinda Nichols RN Appointment 09/14/2023 Travel from [...] (133 lb 14.4 oz) 09/29/2023 12:13 PM COMPANION Height 182.9 cm (6') 09/29/2023 12:13 PM COMPANION Body Mass Index 18.16 09/29/2023 12:13 PM COMPANION Plan of Treatment Upcoming Encounters Date Type Department Care Team (Late st Contact Info) Description 12/13/2023 9:30 AM CDT Appointment [facility] [address] [place] [address] 12/13/2023 11:00 AM CDT Appointment [facility] [address] [place] [address] 01/02/2024 8:30 AM CDT Cardiac Device Check [facility] [place] [facility] [address] [place] [phone] 01/17/2024 8:00 AM CDT Office Visit [facility] [address] [place] [address] Maria Guadalupe Leong MD [address] [place] [address] Health Maintenance Due Date Last Done Comments [...] 12/26/2008, 09/01/2006 Medical Devices Implanted Type Area Resident Care Spec Device Identifier Shelf Expiration Date Model / Serial / Lot Standard Pacemaker-12/21 Implanted:11/23 by Judson Jenkins MD (Quantity not on file) Standard Pacemaker Medtronic [id number] / [id number] / Procedures Procedure Name Priority Date/Time Associated Diagnosis Comments LAB TRACKING EVENT Routine 11/20/2023 11 :37 AM CDT PATH TISSUE EXAM Routine 11/20/2023 11:3 7 AM CDT SCAN-NUCLEAR MEDICINE 10/05/2023 12:00 AM CDT EKG 12 LEAD Routine 09/29/2023 6:34 PM COMPANION XR CHEST 2 VIEWS PA AND LATERAL SHOLA 09/29/2023 6:14 PM COMPANION CV PROCEDURE TO BE PERFORMED Routine 09/29/2023 3:56 PM COMPANION EP PPM Routine 09/29/2023 2:54 PM COMPANION SUPRAGLOTTIC-LMA Routine 09/29/2023 2:38 PM COMPANION EKG 12 LEAD Preop 09/29/2023 12:22 PM COMPANION CBC W PLT NO DIFF Preop 09/29/2023 12: 17 PM COMPANION BASIC METABOLIC PANEL Preop 09/29/2023 12:16 PM COMPANION SCAN-CARDIAC STRIP 09/29/2023 12 :00 AM COMPANION SCAN-ULTRASOUND REPORT 09/20/2023 12:00 AM COMPANION SCAN-ULTRASOUND REPORT 09/20/2023 12:00 AM COMPANION IR VENOGRAM UPPER EXTREMITY LEFT Routine 09/19/2023 11:18 AM COMPANION Pacemaker lead failure, initial encounter Preop testing LIPID PANEL Early AM 07/14/2008 3:00 AM COMPANION from Last 3 Months or Most Recently Relevant to Health Maintenance Results * LAB TRACKING EVENT (11/20/2023 11:37 AM CDT) Other (Other) Client Collect / Unknown 11/20/2023 11:37 AM CDT 11/20/2023 9:52 PM CDT Doctor Unknown LAB BILL ONLY [facility] [address] [place] [address], * PATH TISSUE EXAM (11/20/2023 11:37 AM CDT) Case Report Pathology Report ?Case: [id number] ? Authorizing Provider: ??Unknown, Doctor ?Collected: ? 11/20/2023 1137 ? Ordering Location: ? [facility] ?Received: ?11/21/2023 0637 ? Pathologist: ? Francia Aguirre MD ? Specimen: ?Right Heel, R Calcaneus ? 11/24/2023 8:28 AM [facility] Final Diagnosis A) BONE, RIGHT HEEL, BIOPSY: Positive for acute osteomyelitis and chondritis 11/24/2023 8:28 AM [facility] Clinical Information Right heel bone, assess for necrotic tissue and osteomyelitis. 11/24/2023 8:28 AM [facility] Gross Description A) Received in formalin, labeled with the patient's name and date of , is a 1.0 x 0.8 x 0.1 cm aggregate of youngblood-white bone fragments and possible soft tissue. ??The specimen is entirely submitted in 1 cassette following decalcification. KMNhung 11/22/2023 11/24/2023 8:28 AM [facility] Microscopic Description The final diagnosis is based on microscopic examination of appropriate sections of all specimens. 11/24/2023 8:28 AM [facility] Additional Information Interpreted at [facility] Central Laboratory - [address], [place] [address] 11/24/2023 8:28 AM CDT [facility] Other (Right Heel) 11/20/2023 11:37 AM CDT 11/21/2023 6:37 AM CDT Doctor Unknown PATHOLOGY/CYTOLOGY Performing Organization Address [facility] Co de Phone Number [facility] [address] [place] [address], * SCAN-NUCLEAR MEDICINE (10/05/2023 12:00 AM CDT) Anatomical Region Laterality Modality Other Scanner OTHER * EKG 12 LEAD (09/29/2023 6:34 PM COMPANION) Only the most recent of2 resultswithin the [...] NOW QTc 525 ms BEYOND NOW P Crum 82 degrees BEYOND NOW R Crum 94 degrees BEYOND NOW T Crum 48 degrees BEYOND NOW 09/29/2023 6:34 PM COMPANION 09/30/2023 7:15 PM COMPANION Narrative BEYOND NOW - 09/30/2023 7:15 PM COMPANION Test Indication: POST Johanny Betancourt PATIENT INTAKE COORDINATOR EKG ORD Performing Organization Address [facility] Co de Phone Number [facility]YOND NOW [place], [place] * XR Chest PA and Lateral (09/29/2023 6:14 PM COMPANION) Anatomical Region Laterality Modality CHEST, THORAX, Lung, HEART Digit al Radiography Impressions 09/29/2023 6:32 PM COMPANION Comparison exam February 09, 2012. Interval placement [...] normal No pneumothorax. Narrative 09/29/2023 6:32 PM COMPANION INDICATION Pacemaker placement TECHNIQUE 2 views of the chest COMPARISON 02/09/2012. Johanny Betancourt NP GENERAL IMAGING * EP Procedure to be Performed (09/29/2023 3:56 PM COMPANION) Narrative Rosa Elena Sahu MD - 09/29/2023 3:56 PM COMPANION Rosa Elena Sahu MD ? 09/29/2023 ??4:[address] [facility] DUAL CHAMBER PACEMAKER IMPLANTATION PROCEDURE NOTE Micheal Rene [id number] Date: 09/29/2023 Age: 68 y.o. Birthdate: 1955 Sex: male Referring Physician: ??Alex Mata MD Nuclear Chemistry Technician/Unisaw Operator: Rosa Elena Sahu MD Assistants: None Indications [...] Dr. Modi. Full report to follow in [facility] Rosa Elena Sahu MD Electrophysiology Staff Pager: [phone] 09/29/2023 3:57 PM Ros aElena Sahu MD SHOE STITCHER OR D * EP PPM (09/29/2023 2:54 PM COMPANION) Anatomical Region Laterality Modality X-Ray Angiograph y, X-Ray Angiography 09/29/2023 2:54 PM COMPANION Narrative Transcriptions Rosa Elena Sahu MD - 09/29/2023 4:26 PM CST [facility] Electrophysiology Implant Report Name: MICHEAL RENE Event Date: 09/29/2023 Excellian ID #: [id number] Date: 1955 Gender: Male Age: 68 [facility] #: [id number] Procedure Performed By: ROSA ELENA SAHU [facility] [...] denies fevers, chills or rigors. Consent & Lew[place] Protocol [place] protocol was followed. TIME OUT conducted just [...] Pulse Generator Detail Implanted Status Pocket Location Resident Care Spec Model Serial Number 09/29/2023 Implanted Left Pectoral [employer] Lydia XT DR BUSTAMANTE [id number] 12/21/2012 Explanted Left Pectoral [employer] Adapta L [id number] 07/14/2008 Explanted Left Pectoral [employer] EnRhythm P1501 [id number] Lead Detail Implanted Status Chamber Location Resident Care Spec Model Serial Number 07/14/2008 Chronic Right Ventricle Septum [employer]. CapSureFix [id number] 07/14/2008 Capped Right Atrium Right Appendage [employer]onic[employer] Inc. CapSureFixNovus 5076-45 [id number] 09/29/2023 Implanted Right Atrium Right Appendage [employer]. CapSureFixNovus 5076-65 [id number] Measurement Physician Office Assistant P/R Wave (mV) Threshold (V) Pulse Width [...] Raymond Hendrix CVT Scrub Noel Marroquin EPT Automation Machine Operator Yelitza Jane EPT Automation Machine Operator Medications Ordered and Administered Start Time [...] of Final Rosa Elena Sahu MD Implanting Nuclear Chemistry Technician [facility] [address] [facility] [address] [place] [address] (p) [phone](f) Rosa Elena Sahu MD CV IMAGING * HCHG MASK PR5 (09/29/2023 2:38 PM COMPANION) Narrative Doretha Kolb CRNA - 09/29/2023 2:38 PM COMPANION Doretha Kolb CRNA ? 09/29/2023 ??2:39 PM Procedure: Supraglottic Patient location during procedure: OR Supraglottic Airway Properties Mask Ventilation: easy Type: unique Tube Size: 4 Placement Verification: auscultation and CO2 detection Assessment Assessment: atraumatic Airway Intervention: repositioned Cuff Volume: 5 Veronika Lozano MD ANESTHESIA PX N OTE ORDERABLES * (ABNORMAL) CBC with Platelets no Differential (09/29/2023 12:17 PM COMPANION) Pathologist [facility] WHITE BLOOD COUNT 5.7 4.5 - 11.0 thou/cu mm 09/29/2023 12:30 PM COMPANION [facility] RED BLOOD COUNT 3.53(L) 4.30 - 5.90 mil/cu mm 09/29/2023 12:30 PM [facility] HEMOGLOBIN 10.0(L) 13.5 - 17.5 g/dL 09/29/2023 12:30 PM [facility] HEMATOCRIT 31.5(L) 37.0 - 53.0 % 09/29/2023 12:30 PM COMPANION [facility] MCV 89 80 - 100 fL 09/29/2023 12:30 PM [facility] MCH 28.3 26.0 - 34.0 pg 09/29/2023 12:30 PM [facility] MCHC 31.7(L) 32.0 - 36.0 g/dL 09/29/2023 12:30 PM [facility] RDW 13.2 11.5 - 15.5 % 09/29/2023 12:30 PM [facility] PLATELET COUNT 232 140 - 440 thou/cu mm 09/29/2023 12:30 PM [facility] MPV 7.9 6.5 - 11.0 fL 09/29/2023 12:30 PM COMPANION [facility] NRBC 0.0 % 09/29/2023 12:30 PM [facility] ABS NRBC 0.0 thou /cu mm 09/29/2023 12:30 PM [facility] Blood BLOOD SPECIMEN / Unknown Non-Lab Venipuncture / Unknown 09/29/2023 12:17 PM COMPANION 09/29/2023 12:23 PM COMPANION Rosa Elena Sahu MD HEMATOLOGY [facility] [address] [place] [address] * (ABNORMAL) Basic Metabolic Panel (09/29/2023 12:16 PM COMPANION) SODIUM 139 136 - 145 mmol/L 09/29/2023 12:51 PM [facility] POTASSIUM 4.4 3.5 - 5.1 mmol/L 09/29/2023 12:51 PM [facility] CHLORIDE 106 98 - 107 mmol/L 09/29/2023 12:51 PM [facility] CO2,TOTAL 23 22 - 29 mmol/L 09/29/2023 12:51 PM [facility] ANION GAP 10 5 - 18 09/29/2023 12:51 PM [facility] GLUCOSE 103(H) 70 - 99 mg/dL 09/29/2023 12:51 PM [facility] CALCIUM 9.0 8.8 - 10.2 mg/dL 09/29/2023 12:51 PM [facility] BUN 21 8 - 23 mg/dL 09/29/2023 12:51 PM [facility] CREATININE 0.47(L) 0.70 - 1.20 mg/dL 09/29/2023 12:51 PM [facility] BUN/CREAT RATIO 45(H) 10 - 20 12:51 PM [facility] eGFR >90 >90 mL/min/1.7 3m2 09/29/2023 12:51 PM [facility] Comment:As of 2021, eG FR is calculated by the CKD-EPI creatinine equation without race adjustment. ??eGFR can be influenced by muscle mass, exercise, and diet. ??The reported eGFR is an estimation only and is only applicable if the renal function is stable. Blood BLOOD SPECIMEN / Unknown Non-Lab Venipuncture / Unknown 09/29/2023 12:16 PM COMPANION 09/29/2023 12:23 PM [facility] Rosa Elena Sahu MD CHEMISTRY [facility] [address] [place] [address], * SCAN-CARDIAC STRIP (09/29/2023 12:00 AM COMPANION) Narrative 09/29/2023 12:00 AM COMPANION Ordered by an unspecified provider. Other Clinical Staff OTHER * SCAN-ULTRASOUND REPORT (09/20/2023 12:00 AM COMPANION) Only the most recent of2 resultswithin the time period is included. Anatomical Region Laterality Modality Other Scanner OTHER * IR VENOGRAM UPPER EXTREMITY LEFT (09/19/2023 11:18 AM COMPANION) Anatomical Region Laterality Modality ARM L X-Ray Angiograph y Narrative 09/19/2023 1:33 PM COMPANION Examination: Left upper extremity venogram. Indication: Lead [...] Tremayne Kathleen MD Vascular & Interventional Radiology [facility] Pager: [phone] [phone] [employer] Rosa Elena Sahu MD IR * Lipid Panel - In AM (07/14/2008 3:00 AM COMPANION) [facility] Signature CHOLESTEROL,TOTAL 141 110 - 199 mg/dL [facility] TRIGLYCERIDES 41 40 - 149 mg/dL [facility] HDL CHOLESTEROL 45 >40 mg/dL [facility] CHOL/HDL RATIO 3.13 <4.51 [facility] LDL CHOLESTEROL 88 <131 mg/dL [facility] PATIENT STATUS Fasting [facility] Blood specimen (specimen) BLOOD SPECIMEN / Unknown 07/14/2008 3:00 AM COMPANION 07/14/2008 1:52 AM COMPANION Phyllis Sánchez MD CHEMISTRY [facility] [place] ZIP [address] [place] [address] from Last 3 Months or Most Recently [...] 12 months since positive culture): resides in acute/[facility] care, receiving hemodialysis, has chronic open wounds/skin [...] 12:49 PM 12/25/2015 1:24 PM Care Teams Specification Manager Relationship Specialty Start Date End Date Alex Mata MD [address] [place] [address] PCP - General Family Practice 02/04/20 Ana Mayers [address] [place] [address] Nurse Practitioner 03/02/11 Jak Keys NP [facility] [address] [place] [address] Nurse Practitioner Nurse Practitioner - Adult 10/30/23
--- OUTSIDE RECORDS SUMMARY | 2023-12-04 11:08 | XMS_ITS | Continuity of Care Document ---
Author Name Unknown Address [address] [place] [address] Phone [phone] Organization [facility] Address [address] [place] [address] Care Team Providers Care Ballet Teacher Name Role Phone CHETNA MERAZ Primary Care Provider [phone] RAHUL OCONNOR Iron Erector Assessment Encounter Date Assessment Date Assessment LastModified [...] Orders methenamine hippurate 1 gram tablet [facility]23 [id number] [address] [place], [place], [phone], 23:05:37 oxybutynin chloride ER 15 mg tablet,exte nded release 24 hr 2023 024 [facility] #[id number], [address] [place], [place], [phone], 23:04:50 Patient TargetsNo targets recorded. Patient InstructionsNo instructions recorded. Reason for Referral None Reported. Procedures Surgical History Date Name Laterality Status Provider Name and Address Organization Details Recorded Time 04/10/202 4 COMPLEX VISIT completed Jono Pagan MD [address] [facility],[address], [place], [address], [facility] 11/01/2023 08:09:54 excision of pressure injury completed Jono Pagan MD [address] [facility],[address], [place], [address], [facility] 09/28/2022 11:00:08 maintenance procedure for cardiac pacemaker system completed Veronika hwang [facility] 11/01/2023 11:05:10 Imaging Results None recorded. Procedure Notes None recorded. Medical Equipment None Reported. Allergies Allergen ID Allergen Name Allergen Category Reaction Reaction Severity Criticality Documentation Date Start Date Code Code System Note Provider Name and Address Organization Details Recorded Time 449126 Medicinal product containin g cephalosp pao and acting as antibacte rial agent (product) medicatio n Not available Not available Not available 09/27/2021 91117 9009 SNOMED Nasreen Maritza eri [facility] 2 12:43:20 218604 shellfish derived food,medi cation Not available Not available Not available 11/01/2023 Veronika hwang [facility] 4 11:03:08 Medications Name Sig [...] Updated DateTime 11/01/2023 182.88 cm 18.7 kg/m2 78377.75 g Veronika Shy [facility] 11/01/2023 11:02:57 Social History Question Answer Notes LastModified by Organizat ion Details LastModified Time Tobacco Smoking Status [facility] 02/18/2021 14:55:09 What Is Your Level [...] N Lung Disease N GERD/Acid Reflux N Sexually Transmitted Infection N Cancer N High Cholesterol N Diabetes N Bleeding Disorder N Heart Disease N Immunizations Vaccine Type Date Status Provider Name and Address Organization Details Recorded Time IPV 11/19/2004 completed Mindy hwang [facility] 04/28/2023 11:39:35 COVID-19, mRNA, LNP-S, PF, 30 mcg/0.3 mL dose 08/20/2020 completed Mindy hwang [facility] 04/28/2023 11:39:35 COVID-19, mRNA, LNP-S, PF, 30 mcg/0.3 mL dose 09/14/2020 completed Mindy hwang [facility] 04/28/2023 11:39:35 Pneumococcal conjugate PCV20, polysaccharide QEQ760 conjugate, adjuvant, PF 12/01/2022 completed Mindy hwang [facility] 04/28/2023 11:39:35 influenza, unspecified formulation 05/24/2006 completed Mindy hwang [facility] 04/28/2023 11:39:35 Tdap 09/01/2006 completed Mindy hwang [facility] 04/28/2023 11:39:35 Tdap 12/26/2008 completed [facility] [facility] 04/28/2023 11:39:35 zoster live 01/29/2015 completed Mindy hwang [facility] 04/28/2023 11:39:35 Influenza, seasonal, injectable, preservative free 03/25/2011 [facility] 04/28/2023 11:39:35 Influenza, seasonal, injectable, preservative free 05/24/2012 completed Mindy hwang [facility] 04/28/2023 11:39:35 Td (adult), 2 Lf tetanus toxoid, preservative free, adsorbed 03/21/1997 completed Mindy hwang [facility] 04/28/2023 11:39:35 Hep B, adult 09/01/2006 completed Mindy hwang [facility] 04/28/2023 11:39:35 Hep B, adult 11/19/2004 completed Mindy Solitarioalice eri, [facility] 04/28/2023 11:39:35 Hep B, adult 03/30/2007 completed Mindy Solitarioalice eri, [facility] 04/28/2023 11:39:35 Hep A, adult 09/30/2002 completed Mindycarlos Solitarioalice eri [facility] 04/28/2023 11:39:35 Hep A, adult 11/19/2004 completed Mindy Soliatrioalice eri, [facility] 04/28/2023 11:39:35 Hep A, adult 05/01/2003 completed Mindy Solitarioalice eri, [facility] 04/28/2023 11:39:35 typhoid, ViCPs 09/01/2006 completed Mindy Solitarioalice eri [facility] 04/28/2023 11:39:35 typhoid, ViCPs 09/30/2002 completed Mindy Solitarioalice hwang [facility] 04/28/2023 11:39:35 Past Encounters Encounter ID Performer Location Encounter Start Date Encounter Closed Date Diagnosis/Indication Diagnosis SNOMED-CT Code [id number] Jono Pagan MD [facility] [address] [place] [id number] 11/01/2023 10:52:02 11/02/2023 14:01:41 Neurogenic bladder [id number] Spinal cord injury 76009 004 Spasm of bladder 8662305 06 Recurrent urinary tract infection [id number] Health Concerns Section Related Observation LastModified by Organization Detai ls LastModified Time None Recorded Concern Status LastModified by Organization Details LastModified Time None Recorded Payers Encounter Date Sequence Insurance Name Policy Number Policy Quinones Covered Member ID Quinones Member ID Guarantor Name 11/01/2023 [facility] [id number] Levar Rene Notes Date Note Type Note [...] [facility], [place], [address], [facility] 11/01/2023 23:05:58
== END 2023-12-04 11:07 | disposition home or self-care (01) ==
LOC: WOUND 11:06
PROVIDERS: PCP Family Medicine; Visit Provider Nurse Practitioner Family
DX: L89.314 Pressure ulcer of right buttock, stage 4 (principal); L89.894 Pressure ulcer of other site, stage 4; L89.514 Pressure ulcer of right ankle, stage 4; L89.613 Pressure ulcer of right heel, stage 3; L89.893 Pressure ulcer of other site, stage 3; Z99.3 Dependence on wheelchair
CPT/HCPCS: 11042; 97602

== ENCOUNTER 2023-12-11 11:00 | Outpatient (CLI) | payer OTHER, SELFPAY ==
--- OUTSIDE RECORDS SUMMARY | 2023-12-11 11:02 | XMS_ITS | Clinical Summary ---
Author Name Unknown Organization [employer] [facility] [employer] [facility] Address [place], [place] [address] Care Team Providers Care Rivet Driver Name Role Phone Talib Ana Unavailable Alex Mata MD Primary Care Provider + Jak Keys OPTOMETRIST OWNER Unavailable [phone] Allergies Active Allergy Reactions Criticality Noted Date Comments Blood-Group Specific Substance Other - Describe In Comment Field 04/19/2021 Patient has Sims a (Fya) antibody. Blood products may be delayed. Draw patient 24 hours prior to transfusion. For Whole Optics testing, draw one red top and two [...] Overview: 09/20/23 bilateral lower extremity arterial ultrasound ([facility]) S/P flap graft 03/06/2020 Neurogenic orthostatic [...] Description 11/28/2023 12:30 PM CDT Office Visit [facility] [address] [place] [phone] Clarissa Murray AuD Hearing Aid (consult) 11/27/2023 1:00 PM CDT Office Visit [facility] [address] [place] [address] Angy Israel AuD Hearing Problem (Hearing test) 11/27/2023 Travel 11/23/2023 Travel 11/20/2023 Lab Requisition [facility] [phone] Unknown, Doctor 11/17/2023 11:15 AM CDT Office Visit [facility] [address] [place] [address] Jak Keys NP Wound Check 11/17/2023 11:00 AM CDT Office Visit [facility] [address] [place] [address] 11/17/2023 Orders Only [facility] [address] [place] [address] Sarah Rodriguez PA <No scans attached> 11/17/2023 Travel 11/09/2023 9:45 AM CDT Office Visit [facility] [address] [place] [address] Consult 11/09/2023 Travel 11/01/2023 Telephone [facility] [address] [phone] Cardiology, Anw Follow Up 10/31/2023 Transcribe Orders [facility] [address] [place] [address] Alex Mata MD 10/30/2023 9:15 AM CDT Office Visit [facility] [address], [place] [address] Jak Keys NP Consult 10/30/2023 Travel 10/26/2023 Telephone [facility] [address] [phone] Ramya Savage, RN Device Check 10/05/2023 Orders Only [facility] SERVICES Scanner 1 scan: (1-Ord) [facility], NUCLEAR MEDICINE, 10/05/2023 10/01/2023 Travel 09/29/2023 2:20 PM FINAL CLEANER Anesthesia Event [facility] [address] [place] [address] Veronika Lozano MD Bakke, Amber N, HAIR DRESSER 09/29/2023 11:14 AM FINAL CLEANER - 09/29/2023 7:10 PM FINAL CLEANER Hospital Encounter [facility] [address] [place] [address] Rosa Elena Sahu MD Zakaib, Abhinav Guerra MD [place], [place] [facility] [place] S/P dual chamber permanent pacemaker generator change on 12/21/2012 (Primary Dx); Displacement of atrial pacemaker leads, subsequent encounter Discharge Disposition: Home Self Care 09/29/2023 Travel 09/28/2023 Telephone [facility] [address] [place] [address] Olinda Nichols, RN Appointment 09/20/2023 Orders Only [facility] SERVICES Scanner 1 scan: (1-Ord) [facility], ARTERIAL DUPLEX LE BI, 09/20/2023 09/20/2023 Orders Only [facility] HIM SERVICES Scanner 1 scan: (1-Ord) [facility], ARTERIAL DUPLEX LE BI, 09/20/2023 09/19/2023 9:53 AM FINAL CLEANER - 09/19/2023 11:59 PM FINAL CLEANER Hospital Encounter [facility] [address] [place] [address] Rosa Elena Sahu MD Pacemaker lead failure, initial encounter; Preop testing 09/19/2023 Travel 09/15/2023 Telephone [facility] [address] [place] [address] Olinda Nichols RN Appointment 09/14/2023 Travel from [...] (133 lb 14.4 oz) 09/29/2023 12:13 PM FINAL CLEANER Height 182.9 cm (6') 09/29/2023 12:13 PM FINAL CLEANER Body Mass Index 18.16 09/29/2023 12:13 PM FINAL CLEANER Plan of Treatment Upcoming Encounters Date Type Department Care Team (Late st Contact Info) Description 12/13/2023 9:30 AM CDT Hospital Encounter [facility] [address] [place] [address] Sarah Rodriguez PA [address] [place] [address] 12/13/2023 11:00 AM CDT Appointment [facility] [address] [place] [address] 01/02/2024 8:30 AM CDT Cardiac Device Check [facility] [address] [place] [phone] 01/17/2024 8:00 AM CDT Office Visit [facility] at [address] [phone] Maria Guadalupe Leong MD [address] [place] [address] 02/01/2024 8:15 AM CDT Office Visit [facility] [address] [place] [phone] Raquel Multani MD [address] [place], [place] [phone] Health Maintenance Due Date Last Done Comments [...] 12/26/2008, 09/01/2006 Medical Devices Implanted Type Area Disintegrator Device Identifier Shelf Expiration Date Model / Serial / Lot Standard Pacemaker-12/21 Implanted:11/23 by Judson Jenkins MD (Quantity not on file) Standard Pacemaker Medtronic [id number] / [id number] / Procedures Procedure Name Priority Date/Time Associated Diagnosis Comments LAB TRACKING EVENT Routine 11/20/2023 11 :37 AM CDT PATH TISSUE EXAM Routine 11/20/2023 11:3 7 AM CDT SCAN-NUCLEAR MEDICINE 10/05/2023 12:00 AM CDT EKG 12 LEAD Routine 09/29/2023 6:34 PM FINAL CLEANER XR CHEST 2 VIEWS PA AND LATERAL SHOLA 09/29/2023 6:14 PM FINAL CLEANER CV PROCEDURE TO BE PERFORMED Routine 09/29/2023 3:56 PM FINAL CLEANER EP PPM Routine 09/29/2023 2:54 PM FINAL CLEANER SUPRAGLOTTIC-LMA Routine 09/29/2023 2:38 PM FINAL CLEANER EKG 12 LEAD Preop 09/29/2023 12:22 PM FINAL CLEANER CBC W PLT NO DIFF Preop 09/29/2023 12: 17 PM FINAL CLEANER BASIC METABOLIC PANEL Preop 09/29/2023 12:16 PM FINAL CLEANER SCAN-CARDIAC STRIP 09/29/2023 12 :00 AM FINAL CLEANER SCAN-ULTRASOUND REPORT 09/20/2023 12:00 AM FINAL CLEANER SCAN-ULTRASOUND REPORT 09/20/2023 12:00 AM FINAL CLEANER IR VENOGRAM UPPER EXTREMITY LEFT Routine 09/19/2023 11:18 AM FINAL CLEANER Pacemaker lead failure, initial encounter Preop testing LIPID PANEL Early AM 07/14/2008 3:00 AM FINAL CLEANER from Last 3 Months or Most Recently Relevant to Health Maintenance Results * LAB TRACKING EVENT (11/20/2023 11:37 AM CDT) Other (Other) Client Collect / Unknown 11/20/2023 11:37 AM CDT 11/20/2023 9:52 PM CDT Doctor Unknown LAB BILL ONLY [facility] [address] [place] [address], [place] * PATH TISSUE EXAM (11/20/2023 11:37 AM CDT) Case Report Pathology Report ?Case: [id number] ? Authorizing Provider: ??Unknown, Doctor ?Collected: ? 11/20/2023 1137 ? Ordering Location: ? [facility] ?Received: ?11/21/2023 0637 ? Pathologist: ? Francia Aguirre MD ? Specimen: ?Right Heel, R Calcaneus ? 11/24/2023 8:28 AM CDT [email or web address] Final Diagnosis A) BONE, RIGHT HEEL, BIOPSY: Positive for acute osteomyelitis and chondritis 11/24/2023 8:28 AM CDT [email or web address] Clinical Information Right heel bone, assess for necrotic tissue and osteomyelitis. 11/24/2023 8:28 AM CDT [email or web address] Gross Description A) Received in formalin, labeled with the patient's name and date of , is a 1.0 x 0.8 x 0.1 cm aggregate of youngblood-white bone fragments and possible soft tissue. ??The specimen is entirely submitted in 1 cassette following decalcification. KMNhung 11/22/2023 11/24/2023 8:28 AM CDT [facility] Microscopic Description The final diagnosis is based on microscopic examination of appropriate sections of all specimens. 11/24/2023 8:28 AM CDT [facility] Additional Information Interpreted at [facility] - [address], [place] [address] 11/24/2023 8:28 AM CDT [facility] Other (Right Heel) 11/20/2023 11:37 AM CDT 11/21/2023 6:37 AM CDT Doctor Unknown PATHOLOGY/CYTOLOGY Performing Organization Address City/State/[facility] Co de Phone Number [facility] [address] [place] [address], * SCAN-NUCLEAR MEDICINE (10/05/2023 12:00 AM CDT) Anatomical Region Laterality Modality Other Scanner OTHER * EKG 12 LEAD (09/29/2023 6:34 PM FINAL CLEANER) Only the most recent of2 resultswithin the [...] NOW QTc 525 ms BEYOND NOW P Shonto 82 degrees BEYOND NOW R Shonto 94 degrees BEYOND NOW T Shonto 48 degrees BEYOND NOW 09/29/2023 6:34 PM FINAL CLEANER 09/30/2023 7:15 PM FINAL CLEANER Narrative BEYOND NOW - 09/30/2023 7:15 PM FINAL CLEANER Test Indication: POST Johanny Betancourt NP EKG ORD BEYOND NOW [place], [place] * XR Chest PA and Lateral (09/29/2023 6:14 PM FINAL CLEANER) Anatomical Region Laterality Modality CHEST, THORAX, Lung, HEART Digit al Radiography Impressions 09/29/2023 6:32 PM FINAL CLEANER Comparison exam February 09, 2012. Interval placement [...] normal No pneumothorax. Narrative 09/29/2023 6:32 PM FINAL CLEANER INDICATION Pacemaker placement TECHNIQUE 2 views of the chest COMPARISON 02/09/2012. Johanny Betancourt NP GENERAL IMAGING * EP Procedure to be Performed (09/29/2023 3:56 PM FINAL CLEANER) Narrative Rosa Elena Sahu MD - 09/29/2023 3:56 PM FINAL CLEANER Rosa Elena Sahu MD ? 09/29/2023 ??4:08 PM [facility] DUAL CHAMBER PACEMAKER IMPLANTATION PROCEDURE NOTE Micheal Rene [id number] Date: 09/29/2023 Age: 68 y.o. Birthdate: 1955 Sex: male Referring Physician: ??Alex Mata MD Nursing Home Assistant Administrator/Pens And Pencils Repairer: Rosa Elena Sahu MD Assistants: None Indications [...] Dr. Modi. Full report to follow in [facility] Rosa Elena Sahu MD Electrophysiology Staff Pager: [phone] 09/29/2023 3:57 PM Rosa Elena Sahu MD POT FEEDER OR D * EP PPM (09/29/2023 2:54 PM FINAL CLEANER) Anatomical Region Laterality Modality X-Ray Angiograph y, X-Ray Angiography 09/29/2023 2:54 PM FINAL CLEANER Narrative Transcriptions Rosa Elena Sahu MD - 09/29/2023 4:26 PM CST [facility] Electrophysiology Implant Report Name: MICHEAL RENE Event Date: 09/29/2023 [employer] ID #: [id number] Date: 1955 Gender: Male Age: 68 [facility] #: [id number] Procedure Performed By: ROSA ELENA SAHU Formerly Named [facility] Referring Physician: Dr. Dariel Modi Implant [...] denies fevers, chills or rigors. Consent & Orbisonia Protocol Orbisonia protocol was followed. TIME OUT conducted just [...] Pulse Generator Detail Implanted Status Pocket Location Disintegrator Model Serial Number 09/29/2023 Implanted Left Pectoral [employer]. Lydia XT DR BUSTAMANTE [id number] 12/21/2012 Explanted Left Pectoral [employer] Inc. Palak Rasmussen DR [id number] 07/14/2008 Explanted Left Pectoral [employer] Inc. EnRhythm [id number] Lead Detail Implanted Status Chamber Location Disintegrator Model Serial Number 07/14/2008 Chronic Right Ventricle Septum Medtronic, Inc. CapSureFix [id number] 07/14/2008 Capped Right Atrium Right Appendage Medtronic, Inc. CapSureFixNovus [id number] 09/29/2023 Implanted Right Atrium Right Appendage [employer]onic, Inc. CapSureFixNovus 5076-65 [id number] Measurement Journeyman Electrician Pv Installer P/R Wave (mV) Threshold (V) Pulse Width [...] Raymond Hendrix CVT Scrub Noel Marroquin EPT Basket Bottom Machine Operator Yelitza Jane EPT Basket Bottom Machine Operator Medications Ordered and Administered Start [...] of Final Rosa Elena Sahu MD Implanting Nursing Home Assistant Administrator [facility] [address] [facility] [address] [place] [address] (p) [phone](f) Rosa Elena Sahu MD CV IMAGING * HCHG MASK PR5 (09/29/2023 2:38 PM FINAL CLEANER) Narrative Doretha Kolb CRNA - 09/29/2023 2:38 PM FINAL CLEANER Doretha Kolb, HAIR DRESSER ? 09/29/2023 ??2:39 PM Procedure: Supraglottic Patient location during procedure: OR Supraglottic Airway Properties Mask Ventilation: easy Type: unique Tube Size: 4 Placement Verification: auscultation and CO2 detection Assessment Assessment: atraumatic Airway Intervention: repositioned Cuff Volume: 5 Veronika Lozano MD ANESTHESIA PX N OTE ORDERABLES * (ABNORMAL) CBC with Platelets no Differential (09/29/2023 12:17 PM FINAL CLEANER) [facility] WHITE BLOOD COUNT 5.7 4.5 - 11.0 thou/cu mm 09/29/2023 12:30 PM [facility] RED BLOOD COUNT 3.53(L) 4.30 - 5.90 mil/cu mm 09/29/2023 12:30 PM [facility] HEMOGLOBIN 10.0(L) 13.5 - 17.5 g/dL 09/29/2023 12:30 PM [facility] HEMATOCRIT 31.5(L) 37.0 - 53.0 % 09/29/2023 12:30 PM [facility] MCV 89 80 - 100 fL 09/29/2023 12:30 PM [facility] MCH 28.3 26.0 - 34.0 pg 09/29/2023 12:30 PM [facility] MCHC 31.7(L) 32.0 - 36.0 g/dL 09/29/2023 12:30 PM [facility] RDW 13.2 11.5 - 15.5 % 09/29/2023 12:30 PM [facility] PLATELET COUNT 232 140 - 440 thou/cu mm 09/29/2023 12:30 PM [facility] MPV 7.9 6.5 - 11.0 fL 09/29/2023 12:30 PM [facility] NRBC 0.0 % 09/29/2023 12:30 PM [facility] ABS NRBC 0.0 thou /cu mm 09/29/2023 12:30 PM [facility] Blood BLOOD SPECIMEN / Unknown Non-Lab Venipuncture / Unknown 09/29/2023 12:17 PM FINAL CLEANER 09/29/2023 12:23 PM FINAL CLEANER Rosa Elena Sahu MD HEMATOLOGY [facility] [address] [place] [address], * (ABNORMAL) Basic Metabolic Panel (09/29/2023 12:16 PM FINAL CLEANER) SODIUM 139 136 - 145 mmol/L 09/29/2023 12:51 PM [facility] POTASSIUM 4.4 3.5 - 5.1 mmol/L 09/29/2023 12:51 PM [facility] CHLORIDE 106 98 - 107 mmol/L 09/29/2023 12:51 PM [facility] CO2,TOTAL 23 22 - 29 mmol/L 09/29/2023 12:51 PM [facility] ANION GAP 10 5 - 18 09/29/2023 12:51 PM [facility] GLUCOSE 103(H) 70 - 99 mg/dL 09/29/2023 12:51 PM [facility] CALCIUM 9.0 8.8 - 10.2 mg/dL 09/29/2023 12:51 PM [facility] BUN 21 8 - 23 mg/dL 09/29/2023 12:51 PM [facility] CREATININE 0.47(L) 0.70 - 1.20 mg/dL 09/29/2023 12:51 PM [facility] BUN/CREAT RATIO 45(H) 10 - 20 12:51 PM [facility] eGFR >90 >90 mL/min/1.7 3m2 09/29/2023 12:51 PM FINAL CLEANER [facility] Comment:As of 2021, eG FR is calculated by the CKD-EPI creatinine equation without race adjustment. ??eGFR can be influenced by muscle mass, exercise, and diet. ??The reported eGFR is an estimation only and is only applicable if the renal function is stable. Blood BLOOD SPECIMEN / Unknown Non-Lab Venipuncture / Unknown 09/29/2023 12:16 PM FINAL CLEANER 09/29/2023 12:23 PM FINAL CLEANER Rosa Elena Sahu MD CHEMISTRY [facility] [address] [place] [address], * SCAN-CARDIAC STRIP (09/29/2023 12:00 AM FINAL CLEANER) Narrative 09/29/2023 12:00 AM FINAL CLEANER Ordered by an unspecified provider. Other Clinical Staff OTHER * SCAN-ULTRASOUND REPORT (09/20/2023 12:00 AM FINAL CLEANER) Only the most recent of2 resultswithin the time period is included. Anatomical Region Laterality Modality Other Scanner OTHER * IR VENOGRAM UPPER EXTREMITY LEFT (09/19/2023 11:18 AM FINAL CLEANER) Anatomical Region Laterality Modality ARM L X-Ray Angiograph y Narrative 09/19/2023 1:33 PM FINAL CLEANER Examination: Left upper extremity venogram. Indication: Lead [...] Tremayne Kathleen MD Vascular & Interventional Radiology [facility] Pager: [phone] [phone] [employer] Rosa Elena Sahu MD IR * Lipid Panel - In AM (07/14/2008 3:00 AM FINAL CLEANER) CHOLESTEROL,TOTAL 141 110 - 199 mg/dL [facility] TRIGLYCERIDES 41 40 - 149 mg/dL [facility] HDL CHOLESTEROL 45 >40 mg/dL [facility] CHOL/HDL RATIO 3.13 <4.51 [facility] LDL CHOLESTEROL 88 <131 mg/dL [facility] PATIENT STATUS Fasting [facility] Blood specimen (specimen) BLOOD SPECIMEN / Unknown 07/14/2008 3:00 AM FINAL CLEANER 07/14/2008 1:52 AM FINAL CLEANER Phyllis Sánchez MD CHEMISTRY [facility] INTERNAL ZIP [phone] [place] [address] from Last 3 Months or Most Recently [...] 12 months since positive culture): resides in acute/assisted care, receiving hemodialysis, has chronic open wounds/skin [...] 12:49 PM 12/25/2015 1:24 PM Care Teams Rivet Driver Relationship Specialty Start Date End Date Alex Mata MD [address] [place] [address] PCP - General Family Practice 02/04/20 Ana [facility] [place] [address] Nurse Practitioner 03/02/11 Jak Keys NP [address], [place] [address] Nurse Practitioner Nurse Practitioner - Adult 10/30/23
== END 2023-12-11 11:01 | disposition home or self-care (01) ==
LOC: WOUND 11:00
PROVIDERS: PCP Family Medicine; Visit Provider Nurse Practitioner Family
DX: L89.314 Pressure ulcer of right buttock, stage 4 (principal); L89.894 Pressure ulcer of other site, stage 4; L89.514 Pressure ulcer of right ankle, stage 4; L89.614 Pressure ulcer of right heel, stage 4; L89.893 Pressure ulcer of other site, stage 3; Z99.3 Dependence on wheelchair
CPT/HCPCS: 11042; 11043; 11046; 97597

== ENCOUNTER 2023-12-21 12:35 | Outpatient (CLI) | payer OTHER, SELFPAY ==
--- OUTSIDE RECORDS SUMMARY | 2023-12-21 12:37 | XMS_ITS | Clinical Summary ---
Author Organization [facility] Address [place], [place] [address] Care Team Providers Care Sandstone Inspector Repairer Name Role Phone Goyoluis aAna Unavailable Alex Mata MD Primary Care Provider + Jak Keys ENTERPRISE APPLICATIONS MANAGER Unavailable [phone] Allergies Active Allergy Reactions Criticality Noted Date Comments Blood-Group Specific Substance Other - Describe In Comment Field 04/19/2021 Patient has Sims a (Fya) antibody. Blood products may be delayed. Draw patient 24 hours prior to transfusion. For JoopLoop testing, draw one red top and two [...] Overview: 09/20/23 bilateral lower extremity arterial ultrasound ([facility]) S/P flap graft 03/06/2020 Neurogenic orthostatic hypotension [...] Encounters Date Type Department Care Team Description 12/13/2023 11:23 AM CDT - 12/13/2023 11:59 PM CDT Hospital Encounter [facility] [address] [place] [address] Sasha Rodriguez PA PAD (peripheral artery disease) (HC) 12/13/2023 Travel 11/28/2023 12:30 PM CDT Office Visit [facility] [address] [place] [address] Terri, Adalberto Pettit Hearing Aid (consult) 11/27/2023 1:00 PM CDT Office Visit [facility] [address] [place] [address] Angy Israel AuD Hearing Problem (Hearing test) 11/27/2023 Travel 11/23/2023 Travel 11/20/2023 Lab Requisition [facility] [phone] Unknown, Doctor 11/17/2023 11:15 AM CDT Office Visit [facility] [address] [place] [address] Jak Keys NP Wound Check 11/17/2023 11:00 AM CDT Office Visit [facility] [address] [place] [address] 11/17/2023 Orders Only [facility] [address] [place] [address] Sasha Rodriguez PA <No scans attached> 11/17/2023 Travel 11/09/2023 9:45 AM CDT Office Visit [facility] [address], [place] [address] Consult 11/09/2023 Travel 11/01/2023 Telephone [facility] [address] [address] Cardiology, Anw Follow Up 10/31/2023 Transcribe Orders [facility] [address] [place] [address] Alex Mata MD 10/30/2023 9:15 AM CDT Office Visit [facility] [address], [place] [address] Jak Keys NP Consult 10/30/2023 Travel 10/26/2023 Telephone [facility] [address] [address] Ramya Savage, RN Device Check 10/05/2023 Orders Only [facility] Scanner 1 scan: (1-Ord) [employer], NUCLEAR MEDICINE, 10/05/2023 10/01/2023 Travel 09/29/2023 2:20 PM VICE PRESIDENT DIGITAL STRATEGIST Anesthesia Event [facility] [address], [place] [address] Veronika Lozano MD Bakke, Amber N, RODENT CONTROL WORKER 09/29/2023 11:14 AM VICE PRESIDENT DIGITAL STRATEGIST - 09/29/2023 7:10 PM VICE PRESIDENT DIGITAL STRATEGIST Hospital Encounter [facility] [address], [place] [address] Rosa Elena Sahu MD Zakaib, MD Jaleesa Rodriguezw, [place] [facility] [place] S/P dual chamber permanent pacemaker generator change on 12/21/2012 (Primary Dx); Displacement of atrial pacemaker leads, subsequent encounter Discharge Disposition: Home Self Care 09/29/2023 Travel 09/28/2023 Telephone [facility] [address] [place] [address] Olinda Nichols RN Appointment from Last 3 Months Immunizations Name Administration [...] (133 lb 14.4 oz) 09/29/2023 12:13 PM VICE PRESIDENT DIGITAL STRATEGIST Height 182.9 cm (6') 09/29/2023 12:13 PM VICE PRESIDENT DIGITAL STRATEGIST Body Mass Index 18.16 09/29/2023 12:13 PM VICE PRESIDENT DIGITAL STRATEGIST Plan of Treatment Upcoming Encounters Date Type Department Care Team (Late st Contact Info) Description 01/02/2024 8:30 AM CDT Cardiac Device Check [facility] [address] [place] [address] 01/17/2024 8:00 AM CDT Office Visit [facility] at [address] [address] Maria Guadalupe Leong MD [address] [place] [address] 02/01/2024 8:15 AM CDT Office Visit [address] [address] Raquel Multani MD [address] [facility] [address] [place] [address] Health Maintenance Due Date Last Done Comments [...] 12/26/2008, 09/01/2006 Medical Devices Implanted Type Area Playground Monitor Device Identifier Shelf Expiration Date Model / Serial / Lot Standard Pacemaker-12/21 Implanted:11/23 by Judson Jenkins MD (Quantity not on file) Standard Pacemaker Medtronic [id number] / [id number] / Procedures Procedure Name Priority Date/Time Associated Diagnosis Comments US ANKLE BRACHIAL INDEX BILATERAL Routine 12/13/2023 12:19 PM CDT PAD (peripheral artery disease) (HC) CT ANGIO ABD PELVIS LOWER EXTREM RUNOFF - DUAL READ Routine 12/13/2023 11:14 AM CDT PAD (peripheral artery disease) (HC) CREATININE,ISTAT Routine 12/13/2023 9:54 AM CDT LAB TRACKING EVENT Routine 11/20/2023 11 :37 AM CDT PATH TISSUE EXAM Routine 11/20/2023 11:3 7 AM CDT SCAN-NUCLEAR MEDICINE 10/05/2023 12:00 AM CDT EKG 12 LEAD Routine 09/29/2023 6:34 PM VICE PRESIDENT DIGITAL STRATEGIST XR CHEST 2 VIEWS PA AND LATERAL SHOLA 09/29/2023 6:14 PM VICE PRESIDENT DIGITAL STRATEGIST CV PROCEDURE TO BE PERFORMED Routine 09/29/2023 3:56 PM VICE PRESIDENT DIGITAL STRATEGIST EP PPM Routine 09/29/2023 2:54 PM VICE PRESIDENT DIGITAL STRATEGIST SUPRAGLOTTIC-LMA Routine 09/29/2023 2:38 PM VICE PRESIDENT DIGITAL STRATEGIST EKG 12 LEAD Preop 09/29/2023 12:22 PM VICE PRESIDENT DIGITAL STRATEGIST CBC W PLT NO DIFF Preop 09/29/2023 12: 17 PM VICE PRESIDENT DIGITAL STRATEGIST BASIC METABOLIC PANEL Preop 09/29/2023 12:16 PM VICE PRESIDENT DIGITAL STRATEGIST SCAN-CARDIAC STRIP 09/29/2023 12 :00 AM VICE PRESIDENT DIGITAL STRATEGIST LIPID PANEL Early AM 07/14/2008 3:00 AM VICE PRESIDENT DIGITAL STRATEGIST from Last 3 Months or Most Recently Relevant to Health Maintenance Results * US ANKLE BRACHIAL INDEX BILATERAL (12/13/2023 12:19 PM CDT) Anatomical Region Laterality Modality ANKLES, ANKLE L, ANKLE R Ultraso und 12/13/2023 11:2 8 AM CDT Narrative 12/13/2023 2:27 PM CDT VASCULAR ULTRASOUND REPORT MICHEAL RENE Accession#: ?? [id number] : ?1955 ??Study Date: ?? 12/13/2023 11:28:00 AM Age: ?68 years ?? Tech: ? MAD Gender: M ?Referring MD: SASHA RODRIGUEZ Site: [facility] Center Study performed: ?Lower extremity segmental pressures, resting NHUNG, TBI, ?(bilateral). Indication for study: Follow-up known PAD Study Quality: ?Good TECHNIQUE: Lower/upper extremity arteries were examined per exam protocol by duplex ultrasound, color-flow and spectral Doppler. Peak systolic velocities (PSV), Doppler waveform quality, velocity ratios and vessel size in cm, were documented at protocol specific sites. Physiologic data including segmental pressures, ankle/brachial index (NHUNG), digit PPG recordings, laser Doppler flowmetry, transcutaneous oximetry, and digit temperatures were documented at sites per exam protocol and test requirements. IMPRESSION: 1. Toe-brachial index is severely reduced on the right at 0.34 and toe-brachial index is moderately reduced on the left at 0.66. COMPARISON: Compared to prior study 03/15/2021, RT TBI is now considered severely reduced at .34. previously .54. FINDINGS: Unable to find pulse for bilateral COLOR SPRAYER and DPA pressures. Right toe/brachial index indicates severe range. Left toe/brachial index indicates moderate range. Pressures +-----+ +--------+ +-----+ ? RIGHT (mmHg) ? LEFT (mmHg) ? +-----+ +--------+ +-----+ Index ? 82 ? Brachial ?119 ? Index +-----+ +--------+ +-----+ 0.34 ? 40 ? Digit 1 ?78 ? 0.66 +-----+ +--------+ +-----+ Judah Rodriguez MD. Electronically signed on 12/13/2023 2:27:46 PM This study was performed and interpreted by a service accredited by the Intersocietal Accreditation Commission (IAC/Vascular), [email or web address] Report generated by [employer]. ??Final ?? Procedure Note Judah Rodriguez MD - 12/13/2023 VASCULAR ULTRASOUND REPORT MICHEAL RENE : 1955 Study Date: 12/13/2023 11:28:00 AM Age: 68 years Tech: MAD Gender: M Referring MD: SASHA RODRIGUEZ Site: [facility] Center Study performed: Lower extremity segmental pressures, resting NHUNG,TBI, (bilateral). Indication for study: Follow-up known PAD Study Quality: Good TECHNIQUE: Lower/upper extremity arteries were examined per exam protocol by duplexultrasound, color-flow and spectral Doppler. Peak systolic velocities(PSV), Doppler waveform quality, velocity ratios and vessel size in cm,were documented at protocol specific sites. Physiologic data includingsegmental pressures, ankle/brachial index (NHUNG), digit PPG recordings,laser Doppler flowmetry, transcutaneous oximetry, and digit temperatureswere documented at sites per exam protocol and test requirements. IMPRESSION: 1. Toe-brachial index is severely reduced on the right at 0.34 andtoe-brachial index is moderately reduced on the left at 0.66. COMPARISON: Compared to prior study 03/15/2021, RT TBI is now considered severelyreduced at .34. previously .54. FINDINGS: Unable to find pulse for bilateral COLOR SPRAYER and DPA pressures. Right toe/brachial index indicates severe range. Left toe/brachial index indicates moderate range. Pressures +-----+ +--------+ +-----+ RIGHT (mmHg) LEFT (mmHg) +-----+ +--------+ +-----+ Index 82 Brachial 119 Index +-----+ +--------+ +-----+ 0.34 40 Digit 1 78 0.66 +-----+ +--------+ +-----+ Judah Rodriguez MD. Electronically signed on 12/13/2023 2:27:46 PM This study was performed and interpreted by a service accredited by theIntersocietal Accreditation Commission (IAC/Vascular),[email or web address] Report generated by [employer]. Final Sasha Blanca ANDERSON US * CT ANGIO ABD PELVIS LOWER EXTREM RUNOFF - DUAL READ (12/13/2023 11:14 AM CDT) Anatomical Region Laterality Modality Abdomen, Pelvis Computed Tomogra phy Impressions 12/14/2023 7:10 AM CDT ?? 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 External and internal iliac arteries fed via abdominal wall collaterals. Patent left common iliac artery stent. Diffuse nonobstructive superficial femoral artery disease bilaterally. Three-vessel runoff bilaterally. FINDINGS: SUPRACELIAC ABDOMINAL AORTA: Mild atherosclerosis. ?? INFRARENAL ABDOMINAL AORTA: Diffuse aortic atherosclerosis with a maximum dimension of 2.3 x 2.3 cm. CELIAC ARTERY: Patent, with a patent common hepatic, splenic, and left gastric artery. ?? SUPERIOR MESENTERIC: Patent. RENAL ARTERIES: Right renal artery is solitary and patent. Left renal artery is solitary and patent. RIGHT SIDE: Common Iliac: Common iliac artery stent totally occluded. Internal Iliac/External Iliac: Internal and external iliac arteries are fed via abdominal wall collaterals. External iliac artery fills well. Common Femoral: Patent. Deep Femoral: Patent. Superficial Femoral Artery: Diffuse plaque throughout but is patent. Popliteal: Patent. Infrapopliteal Arteries: Anterior Tibial: Patent. Tibioperoneal Artery: Patent. Peroneal: Patent. LEFT SIDE: Common Iliac: Common iliac artery stent widely patent. Internal Iliac: Patent. External Iliac: Patent. Common Femoral: There is a moderate stenosis. Deep Femoral: Patent. Superficial Femoral: Diffuse plaque throughout, moderate stenoses. Tibioperoneal Artery: Patent. Suprapopliteal Artery: Moderate stenosis. Popliteal Artery: Patent. Infrapopliteal Arteries: Anterior Tibial: Patent. Peroneal: Patent. Posterior Tibial: Patent. MD MARIANA Oden/samira For Patients: As a result of the Cures Act, medical imaging exams and procedure reports are released immediately into your electronic medical record. ??You may view this report before your referring provider. ?? If you have questions, please contact your health care provider. OVER-READ ? OVER-READ ?OVER-READ OVER-READ: DETAILED RADIOLOGY EXTRACARDIAC OVER-READ OF CARDIAC CT 12/13/2023 CLINICAL HISTORY: Peripheral arterial disease. Cardiac over-read. TECHNIQUE: Please refer to separately dictated report for details of technique. 100 cc Omnipaque 350. This exam is being performed in conjunction with the services provided by the [facility] ([facility]). FINDINGS: Lower Chest: Calcified right pleural plaques. No focal airspace opacities or pleural effusions. Abdomen/Pelvis: Liver: Unremarkable. Gallbladder: Unremarkable. Spleen: 2.8 cm upper pole cyst. Adrenal glands: Unremarkable. Kidneys: Enhance symmetrically without hydronephrosis. 5 mm right lower pole renal cyst. Pancreas: Unremarkable. Lymph nodes: No retroperitoneal, mesenteric, inguinal, or pelvic adenopathy by CT criteria. Bowel: No bowel obstruction. Left lower quadrant colostomy. Urinary bladder: Limited evaluation due to underdistention. No gross pathology. Reproductive structures: Unremarkable for patient`s age. No abdominal/pelvis ascites or free intraperitoneal air. 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 Status post left hip arthroplasty. Visualized osseous structures demonstrate extensive degenerative changes. Chronic appearing fracture deformity at the distal right tibia with incomplete healing. IMPRESSION: 1. No acute nonvascular findings in the abdomen, pelvis, and bilateral lower extremities. 2. Calcified right pleural plaques which may reflect asbestos related pleural disease versus sequelae of prior infection/trauma. 3. Please refer to separately dictated report for evaluation of cardiovascular structures. Please note that all CT scans at this facility use dose modulation, iterative reconstruction, and/or weight-based dosing when appropriate to reduce radiation dose to as low as reasonably achievable. Dictated by Frank Williamson MD @ 12/13/2023 7:37:54 PM Narrative 12/14/2023 7:10 AM CDT Results are automatically released to your JoopLoop ([employer]) account once available, in compliance with federal regulations. ??This means that you may see your results before your provider has had a chance to review them. ??Please allow 2-3 business days for your provider to comment on the results. STUDY: ABDOMINAL AND PELVIC AORTIC CTA WITH RUNOFF, 12/13/2023 STUDY PARAMETERS: Contrast used: Omnipaque 350, 100 mL; 244 DLP; Siemens SOMATOM Force [address] INDICATIONS: Claudication, history of prior intervention, evaluate. ?? SCAN QUALITY: Good. Sasha ANDERSON CT * (ABNORMAL) CREATININE,ISTAT (12/13/2023 9:54 AM CDT) [facility] CREATININE, POCT 0.50(L) 0.57 - 1.11 mg/dL 12/13/2023 12:34 PM CDT [facility] Comment:Caution: Patients ta camila Hydroxyurea have falsely increased iStat Creatinine results. Verify creatinine results ordering a Creatinine (47903.2) eGFR >90 >90 mL/min/1.7 3m2 12/13/2023 12:34 PM CDT [facility] Comment:As of 2021, eG FR is calculated by the CKD-EPI creatinine equation without race adjustment. eGFR can be influenced by muscle mass, exercise, and diet. The reported eGFR is an estimation only and is only applicable if the renal function is stable. Blood BLOOD SPECIMEN / Unknown 12/13/2023 9:54 AM CDT 12/13/2023 12:34 PM CDT Sasha ANDERSON CHEMISTRY Performing Organization Address City/[facility]/ZIP Co de Phone Number [facility] [address] [address], [place] * LAB TRACKING EVENT (11/20/2023 11:37 AM CDT) Other (Other) Client Collect / Unknown 11/20/2023 11:37 AM CDT 11/20/2023 9:52 PM CDT Doctor Unknown LAB BILL ONLY Performing Organization Address City/[facility]/ZIP Co de Phone Number [facility] [employer] [facility] [address] [address], [place] * PATH TISSUE EXAM (11/20/2023 11:37 AM CDT) Case Report Pathology Report ?Case: [id number] ? Authorizing Provider: ??Unknown, Doctor ?Collected: ? 11/20/2023 1137 ? Ordering Location: ? [facility] ?Received: ?11/21/2023 0637 ? Pathologist: ? Francia Aguirre MD ? Specimen: ?Right Heel, R Calcaneus ? 11/24/2023 8:28 AM CDT [employer] [facility]AL [facility]ORATORY Final Diagnosis A) BONE, RIGHT HEEL, BIOPSY: Positive for acute osteomyelitis and chondritis 11/24/2023 8:28 AM CDT [employer] [facility] Clinical Information Right heel bone, assess for necrotic tissue and osteomyelitis. 11/24/2023 8:28 AM CDT [employer] Gross Description A) Received in formalin, labeled with the patient's name and date of , is a 1.0 x 0.8 x 0.1 cm aggregate of youngblood-white bone fragments and possible soft tissue. ??The specimen is entirely submitted in 1 cassette following decalcification. [place] 11/22/2023 11/24/2023 8:28 AM CDT [facility]- [facility] Microscopic Description The final diagnosis is based on microscopic examination of appropriate sections of all specimens. 11/24/2023 8:28 AM CDT [facility]- [facility] Additional Information Interpreted at [facility] - [address] [facility] [address], [place] [address] 11/24/2023 8:28 AM CDT [facility] Other (Right Heel) 11/20/2023 11:37 AM CDT 11/21/2023 6:37 AM CDT Doctor Unknown PATHOLOGY/CYTOLOGY Performing Organization Address City/[facility] Co de Phone Number [facility] [address] [place] [address], * SCAN-NUCLEAR MEDICINE (10/05/2023 12:00 AM CDT) Anatomical Region Laterality Modality Other Scanner OTHER * EKG 12 LEAD (09/29/2023 6:34 PM VICE PRESIDENT DIGITAL STRATEGIST) Only the most recent of2 resultswithin the [...] NOW QTc 525 ms BEYOND NOW P [place] 82 degrees BEYOND NOW R [place] 94 degrees BEYOND NOW T [place] 48 degrees BEYOND NOW 09/29/2023 6:34 PM VICE PRESIDENT DIGITAL STRATEGIST 09/30/2023 7:15 PM VICE PRESIDENT DIGITAL STRATEGIST Narrative BEYOND NOW - 09/30/2023 7:15 PM VICE PRESIDENT DIGITAL STRATEGIST Test Indication: POST Johanny Betancourt ENTERPRISE APPLICATIONS MANAGER EKG ORD BEYOND NOW [place], [place] * XR Chest PA and Lateral (09/29/2023 6:14 PM VICE PRESIDENT DIGITAL STRATEGIST) Anatomical Region Laterality Modality CHEST, THORAX, Lung, HEART Digit al Radiography Impressions 09/29/2023 6:32 PM VICE PRESIDENT DIGITAL STRATEGIST Comparison exam February 09, 2012. Interval placement [...] normal No pneumothorax. Narrative 09/29/2023 6:32 PM VICE PRESIDENT DIGITAL STRATEGIST INDICATION Pacemaker placement TECHNIQUE 2 views of the chest COMPARISON 02/09/2012. Johanny Betancourt NP GENERAL IMAGING * EP Procedure to be Performed (09/29/2023 3:56 PM VICE PRESIDENT DIGITAL STRATEGIST) Narrative Rosa Elena Sahu MD - 09/29/2023 3:56 PM VICE PRESIDENT DIGITAL STRATEGIST Rosa Elena Sahu MD ? 09/29/2023 ??4:08 PM [facility] DUAL CHAMBER PACEMAKER IMPLANTATION PROCEDURE NOTE Micheal Rene [id number] Date: 09/29/2023 Age: 68 y.o. Birthdate: 1955 Sex: male Referring Physician: ??Alex Mata MD Breastfeeding Peer Counselor/Can Filler: Rosa Elena Sahu MD Assistants: None Indications [...] Dr. Modi. Full report to follow in [facility] Rosa Elena Sahu MD Electrophysiology Staff Pager: [phone] 09/29/2023 3:57 PM Rosa Elena Sahu MD SALES PORTER OR D * EP PPM (09/29/2023 2:54 PM VICE PRESIDENT DIGITAL STRATEGIST) Anatomical Region Laterality Modality X-Ray Angiograph y, X-Ray Angiography 09/29/2023 2:54 PM VICE PRESIDENT DIGITAL STRATEGIST Narrative Transcriptions Rosa Elena Sahu MD - 09/29/2023 4:26 PM CST [facility] Electrophysiology Implant Report Name: MICHEAL RENE Event Date: 09/29/2023 [employer] ID #: [id number] Date: 1955 Gender: Male Age: 68 [facility] #: [id number] Procedure Performed By: ROSA ELENA SAHU [facility] Referring Physician: Dr. Dariel Modi Implant Procedure [...] denies fevers, chills or rigors. Consent & Avery Protocol Avery protocol was followed. TIME OUT conducted just [...] Pulse Generator Detail Implanted Status Pocket Location Playground Monitor Model Serial Number 09/29/2023 Implanted Left Pectoral [employer]. Lydia XT DR BUSTAMANTE [id number] 12/21/2012 Explanted Left Pectoral [employer] Inc. Palak Rasmussen DR [id number] 07/14/2008 Explanted Left Pectoral [employer]. EnRhythm [id number] Lead Detail Implanted Status Chamber Location Playground Monitor Model Serial Number 07/14/2008 Chronic Right Ventricle Septum Med[employer]onic[employer] Inc. CapSureFix [id number] 07/14/2008 Capped Right Atrium Right Appendage Medtronic, Inc. CapSureFixNovus 5076-45 [id number] 09/29/2023 Implanted Right Atrium Right Appendage Med[employer]onic, Inc. CapSureFixNovus 5076-65 [id number] Measurement Grounds/Maintenance Specialist P/R Wave (mV) Threshold (V) Pulse Width [...] Raymond Hendrix CVT Scrub Noel Marroquin EPT Side Laster Staple Yelitza Jane EPT Side Laster Staple Medications Ordered and Administered Start Time Stop [...] of Final Rosa Elena Sahu MD Implanting Breastfeeding Peer Counselor [facility] [address] [place] [address] [place] [address] (p) [phone](f) Rosa Elena Sahu MD CV IMAGING * HCHG MASK PR5 (09/29/2023 2:38 PM VICE PRESIDENT DIGITAL STRATEGIST) Narrative Doretha Kolb CRNA - 09/29/2023 2:38 PM VICE PRESIDENT DIGITAL STRATEGIST Kennedi, Doretha N, RODENT CONTROL WORKER ? 09/29/2023 ??2:39 PM Procedure: Supraglottic Patient location during procedure: OR Supraglottic Airway Properties Mask Ventilation: easy Type: unique Tube Size: 4 Placement Verification: auscultation and CO2 detection Assessment Assessment: atraumatic Airway Intervention: repositioned Cuff Volume: 5 Veronika Lozano MD ANESTHESIA PX N OTE ORDERABLES * (ABNORMAL) CBC with Platelets no Differential (09/29/2023 12:17 PM VICE PRESIDENT DIGITAL STRATEGIST) WHITE BLOOD COUNT 5.7 4.5 - 11.0 thou/cu mm 09/29/2023 12:30 PM VICE PRESIDENT DIGITAL STRATEGIST [facility] RED BLOOD COUNT 3.53(L) 4.30 - 5.90 mil/cu mm 09/29/2023 12:30 PM [facility] HEMOGLOBIN 10.0(L) 13.5 - 17.5 g/dL 09/29/2023 12:30 PM [facility] HEMATOCRIT 31.5(L) 37.0 - 53.0 % 09/29/2023 12:30 PM [facility] MCV 89 80 - 100 fL 09/29/2023 12:30 PM [facility] MCH 28.3 26.0 - 34.0 pg 09/29/2023 12:30 PM [facility] MCHC 31.7(L) 32.0 - 36.0 g/dL 09/29/2023 12:30 PM [facility] RDW 13.2 11.5 - 15.5 % 09/29/2023 12:30 PM [facility] PLATELET COUNT 232 140 - 440 thou/cu mm 09/29/2023 12:30 PM [facility] MPV 7.9 6.5 - 11.0 fL 09/29/2023 12:30 PM [facility] NRBC 0.0 % 09/29/2023 12:30 PM [facility] ABS NRBC 0.0 thou /cu mm 09/29/2023 12:30 PM [facility] Blood BLOOD SPECIMEN / Unknown Non-Lab Venipuncture / Unknown 09/29/2023 12:17 PM VICE PRESIDENT DIGITAL STRATEGIST 09/29/2023 12:23 PM VICE PRESIDENT DIGITAL STRATEGIST Rosa Elena Sahu MD HEMATOLOGY [facility] [address] [place] [id number], * (ABNORMAL) Basic Metabolic Panel (09/29/2023 12:16 PM VICE PRESIDENT DIGITAL STRATEGIST) SODIUM 139 136 - 145 mmol/L 09/29/2023 12:51 PM [facility] POTASSIUM 4.4 3.5 - 5.1 mmol/L 09/29/2023 12:51 PM [facility] CHLORIDE 106 98 - 107 mmol/L 09/29/2023 12:51 PM [facility] CO2,TOTAL 23 22 - 29 mmol/L 09/29/2023 12:51 PM [facility] ANION GAP 10 5 - 18 09/29/2023 12:51 PM [facility] GLUCOSE 103(H) 70 - 99 mg/dL 09/29/2023 12:51 PM [facility] CALCIUM 9.0 8.8 - 10.2 mg/dL 09/29/2023 12:51 PM [facility] BUN 21 8 - 23 mg/dL 09/29/2023 12:51 PM [facility] CREATININE 0.47(L) 0.70 - 1.20 mg/dL 09/29/2023 12:51 PM [facility] BUN/CREAT RATIO 45(H) 10 - 20 12:51 PM [facility] eGFR >90 >90 mL/min/1.7 3m2 09/29/2023 12:51 PM [facility] Comment:As of 2021, eG FR is calculated by the CKD-EPI creatinine equation without race adjustment. ??eGFR can be influenced by muscle mass, exercise, and diet. ??The reported eGFR is an estimation only and is only applicable if the renal function is stable. Blood BLOOD SPECIMEN / Unknown Non-Lab Venipuncture / Unknown 09/29/2023 12:16 PM VICE PRESIDENT DIGITAL STRATEGIST 09/29/2023 12:23 PM VICE PRESIDENT DIGITAL STRATEGIST Rosa Elena Sahu MD CHEMISTRY [facility] [address] [address], * SCAN-CARDIAC STRIP (09/29/2023 12:00 AM VICE PRESIDENT DIGITAL STRATEGIST) Narrative 09/29/2023 12:00 AM VICE PRESIDENT DIGITAL STRATEGIST Ordered by an unspecified provider. Other Clinical Staff OTHER * Lipid Panel - In AM (07/14/2008 3:00 AM VICE PRESIDENT DIGITAL STRATEGIST) CHOLESTEROL,TOTAL 141 110 - 199 mg/dL [facility] TRIGLYCERIDES 41 40 - 149 mg/dL [facility] HDL CHOLESTEROL 45 >40 mg/dL [facility] CHOL/HDL RATIO 3.13 <4.51 [facility] LDL CHOLESTEROL 88 <131 mg/dL [facility] PATIENT STATUS Fasting [facility] Blood specimen (specimen) BLOOD SPECIMEN / Unknown 07/14/2008 3:00 AM VICE PRESIDENT DIGITAL STRATEGIST 07/14/2008 1:52 AM VICE PRESIDENT DIGITAL STRATEGIST Phyllis Sánchez MD CHEMISTRY [facility] INTERNAL ZIP [address] [address] from Last 3 Months or Most Recently [...] 12 months since positive culture): 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
--- OUTSIDE RECORDS SUMMARY | 2023-12-21 12:37 | XMS_ITS | Continuity of Care Document ---
Author Organization [facility], [facility] Address [address] [place] [address] Care Team Providers Care Steel Unloader Name Role Phone CHETNA MERAZ Primary Care Provider RAHUL OCONNOR Patient Transport Orderly Assessment Encounter Date Assessment Date Assessment LastModified [...] Orders methenamine hippurate 1 gram tablet 2023 [id number], [address] [place], [place], [id number], 23:05:37 oxybutynin chloride ER 15 mg tablet,exte nded release 24 hr [facility]23 [id number], [address] [place], [place], [phone], 23:04:50 Patient TargetsNo targets recorded. Patient InstructionsNo instructions recorded. Reason for Referral None Reported. Procedures Surgical History Date Name Laterality Status Provider Name and Address Organization Details Recorded Time COMPLEX VISIT completed oJno Pagan MD [address] [facility],[address], [place], [address], [facility] 11/01/2023 08:09:54 excision of pressure injury completed Jono Pagan MD [address] [facility],[address], [place], [address], [facility] 09/28/2022 11:00:08 maintenance procedure for cardiac pacemaker system completed Veronika Kotharijacqueline [facility] 11/01/2023 11:05:10 Imaging Results None recorded. Procedure Notes None recorded. Medical Equipment None Reported. Allergies Allergen ID Allergen Name Allergen Category Reaction Reaction Severity Criticality Documentation Date Start Date Code Code System Note Provider Name and Address Organization Details Recorded Time 474450 Medicinal product containin g cephalosp pao and acting as antibacte rial agent (product) medicatio n Not available Not available Not available 09/27/2021 62474 9009 SNOMED Nasreen Salas [facility] 2 12:43:20 347694 shellfish derived food,medi cation Not available Not available Not available 11/01/2023 Veronika aguila [facility] 4 11:03:08 Medications Name Sig Start [...] Updated DateTime 11/01/2023 182.88 cm 18.7 kg/m2 76740.75 g Veronika Shy [facility] 11/01/2023 11:02:57 Social History Question Answer Notes LastModified by Organizat ion Details LastModified Time Tobacco Smoking Status [facility] 02/18/2021 14:55:09 What Is Your Level [...] Recorded Time IPV 11/19/2004 completed Mindy hwang [facility] 04/28/2023 11:39:35 COVID-19, mRNA, LNP-S, PF, 30 mcg/0.3 mL dose 08/20/2020 completed Mindy hwang [facility] 04/28/2023 11:39:35 COVID-19, mRNA, LNP-S, PF, 30 mcg/0.3 mL dose 09/14/2020 completed Mindy hwang [facility] 04/28/2023 11:39:35 Pneumococcal conjugate PCV20, polysaccharide [id number] conjugate, adjuvant, PF 12/01/2022 completed Mindy hwang [facility] 04/28/2023 11:39:35 influenza, unspecified formulation 05/24/2006 completed Mindy hwang [facility] 04/28/2023 11:39:35 Tdap 09/01/2006 completed Mindy hwang [facility] 04/28/2023 11:39:35 Tdap 12/26/2008 completed Mindy hwang [facility] 04/28/2023 11:39:35 zoster live 01/29/2015 completed Mindy hwang [facility] 04/28/2023 11:39:35 Influenza, seasonal, injectable, preservative free 03/25/2011 completed Mindy hwang [facility] 04/28/2023 11:39:35 Influenza, seasonal, injectable, preservative free 05/24/2012 completed Mindy hwang [facility] 04/28/2023 11:39:35 Td (adult), 2 Lf tetanus toxoid, preservative free, adsorbed 03/21/1997 completed Mindy hwang [facility] 04/28/2023 11:39:35 Hep B, adult 09/01/[address] [facility] 04/28/2023 11:39:35 Hep B, adult 11/19/2004 completed Mindy Malone eri [facility] 04/28/2023 11:39:35 Hep B, adult 03/30/2007 completed Mindy Solitarioalice eri [facility] 04/28/2023 11:39:35 Hep A, adult 09/30/2002 completed Mindy Solitarioalice eri [facility] 04/28/2023 11:39:35 Hep A, adult 11/19/2004 completed Mindy Solitarioalice eri [facility] 04/28/2023 11:39:35 Hep A, adult 05/01/2003 completed Mindy Solitarioalice eri, [facility] 04/28/2023 11:39:35 typhoid, ViCPs 09/01/2006 completed Mindy Solitarioalice eri [facility] 04/28/2023 11:39:35 typhoid, ViCPs 09/30/2002 completed Mindy Solitarioalice eri [facility] 04/28/2023 11:39:35 Past Encounters Encounter ID Performer Location Encounter Start Date Encounter Closed Date Diagnosis/Indication Diagnosis SNOMED-CT Code [id number] Jono Pagan MD [facility] [address] [place] [address] 11/01/2023 10:52:02 11/02/2023 14:01:41 Neurogenic bladder 096592094 Spinal cord injury 51139 004 Spasm of bladder 9039994 06 Recurrent urinary tract infection 933121047 Health Concerns Section Related Observation LastModified by Organization Detai ls LastModified Time None Recorded Concern Status LastModified by Organization Details LastModified Time None Recorded Payers Encounter Date Sequence Insurance Name Policy Number Policy Quinones Covered Member ID Quinones Member ID Guarantor Name 11/01/2023 [facility] [id number] Levar Rene Notes Date Note Type Note [...] condom catheter when traveling. Jono Pagan MD [address] [facility],[address], [place], [address], [place] [facility] [place] [facility] 11/01/2023 23:05:58
== END 2023-12-21 12:36 | disposition home or self-care (01) ==
LOC: WOUND 12:35
PROVIDERS: PCP Family Medicine; Visit Provider Nurse Practitioner Family
DX: M86.171 Other acute osteomyelitis, right ankle and foot (principal); L89.614 Pressure ulcer of right heel, stage 4; L89.894 Pressure ulcer of other site, stage 4; L89.514 Pressure ulcer of right ankle, stage 4; L89.893 Pressure ulcer of other site, stage 3; L89.314 Pressure ulcer of right buttock, stage 4; Z99.3 Dependence on wheelchair
CPT/HCPCS: 11042; 11043; 11046; 96372; 97597; J0696

== ENCOUNTER 2023-12-25 10:33 | Outpatient (CLI) | payer OTHER, SELFPAY ==
--- OUTSIDE RECORDS SUMMARY | 2023-12-25 10:37 | XMS_ITS | Clinical Summary ---
Author Organization [employer] [facility] Address [place], [place] [address] Care Team Providers Care Primary Teacher Name Role Phone Goyoluis aAna Unavailable Alex Mata MD Primary Care Provider + Jak Keys BEAM SEALER Unavailable [phone] Allergies Active Allergy Reactions Criticality Noted Date Comments Blood-Group Specific Substance Other - Describe In Comment Field 04/19/2021 Patient has Sims a (Fya) antibody. Blood products may be delayed. Draw patient 24 hours prior to transfusion. For Simperium testing, draw one red top and two [...] Overview: 09/20/23 bilateral lower extremity arterial ultrasound ([facility]) S/P flap graft 03/06/2020 Neurogenic orthostatic hypotension [...] Encounters Date Type Department Care Team Description 12/22/2023 Telephone [facility] [address] [place] [address] Paul Bishop MD Referral 12/13/2023 11:23 AM CDT - 12/13/2023 11:59 PM CDT Hospital Encounter [facility] [address] [place] [address] Sasha Rodriguez PA PAD (peripheral artery disease) (HC) 12/13/2023 Travel 11/28/2023 12:30 PM CDT Office Visit [facility] [address] [place] [address] Clarissa Murray AuD Hearing Aid (consult) 11/27/2023 1:00 PM CDT Office Visit [facility] [address] [address] Tuttle-Brown, Angy, AuD Hearing Problem (Hearing test) 11/27/2023 Travel 11/23/2023 Travel 11/20/2023 Lab Requisition [facility] [phone] Unknown, Doctor 11/17/2023 11:15 AM CDT Office Visit [facility] [address] [place] [address] Jak Keys NP Wound Check 11/17/2023 11:00 AM CDT Office Visit [facility] [address] [place] [address] 11/17/2023 Orders Only [facility] [address] [place] [address] Sasha Rodriguez PA <No scans attached> 11/17/2023 Travel 11/09/2023 9:45 AM CDT Office Visit [facility] [address] [place] [address] Consult 11/09/2023 Travel 11/01/[address] [facility] [address] [address] Cardiology, Anw Follow Up 10/31/2023 Transcribe Orders [address] [phone] Alex Mata MD 10/30/2023 9:15 AM CDT Office Visit [facility] [address] [place] [address] Jak Keys NP Consult 10/30/2023 Travel 10/26/[address] [facility] [address] [address] Ramya Savage, RN Device Check 10/05/2023 Orders Only [facility] Scanner 1 scan: (1-Ord) [facility], NUCLEAR MEDICINE, 10/05/2023 10/01/2023 Travel 09/29/2023 2:20 PM MANAGER OF BUSINESS OPERATIONS Anesthesia Event [facility] [address] [address] Veronika Lozano MD Bakke, Amber N, FRONT OFFICE DIRECTOR 09/29/2023 11:14 AM MANAGER OF BUSINESS OPERATIONS - 09/29/2023 7:10 PM MANAGER OF BUSINESS OPERATIONS Hospital Encounter [facility] [address] [place] [address] Rosa Elena Sahu MD Zakaib, Abhinav Guerra MD [place], [place] [facility] [place] S/P dual chamber permanent pacemaker generator change on 12/21/2012 (Primary Dx); Displacement of atrial pacemaker leads, subsequent encounter Discharge Disposition: Home Self Care 09/29/2023 Travel 09/28/2023 Telephone [facility] [address] [place] [address] Olinda Nichols RN Appointment from Last 3 [...] (133 lb 14.4 oz) 09/29/2023 12:13 PM MANAGER OF BUSINESS OPERATIONS Height 182.9 cm (6') 09/29/2023 12:13 PM MANAGER OF BUSINESS OPERATIONS Body Mass Index 18.16 09/29/2023 12:13 PM MANAGER OF BUSINESS OPERATIONS Plan of Treatment Upcoming Encounters Date Type Department Care Team (Late st Contact Info) Description 01/02/2024 8:30 AM CDT Cardiac Device Check [facility] [address] [place] [address] 01/17/2024 8:00 AM CDT Office Visit [address] [phone] Maria Guadalupe Leong MD [address] [place] [address] 02/01/2024 8:15 AM CDT Office Visit [address] [phone] Raquel Multani MD [address] [facility] [address] [place], [place] [id number] Health Maintenance Due Date Last Done Comments [...] 12/26/2008, 09/01/2006 Medical Devices Implanted Type Area Shank Scourer Device Identifier Shelf Expiration Date Model / Serial / Lot Standard Pacemaker-12/21 Implanted:11/23 by Judson Jenkins MD (Quantity not on file) Standard Pacemaker Medtronic [id number] / [id number] / Procedures Procedure Name Priority Date/Time Associated [...] EKG 12 LEAD Routine 09/29/2023 6:34 PM MANAGER OF BUSINESS OPERATIONS XR CHEST 2 VIEWS PA AND LATERAL SHOLA 09/29/2023 6:14 PM MANAGER OF BUSINESS OPERATIONS CV PROCEDURE TO BE PERFORMED Routine 09/29/2023 3:56 PM MANAGER OF BUSINESS OPERATIONS EP PPM Routine 09/29/2023 2:54 PM MANAGER OF BUSINESS OPERATIONS SUPRAGLOTTIC-LMA Routine 09/29/2023 2:38 PM MANAGER OF BUSINESS OPERATIONS EKG 12 LEAD Preop 09/29/2023 12:22 PM MANAGER OF BUSINESS OPERATIONS CBC W PLT NO DIFF Preop 09/29/2023 12: 17 PM MANAGER OF BUSINESS OPERATIONS BASIC METABOLIC PANEL Preop 09/29/2023 12:16 PM MANAGER OF BUSINESS OPERATIONS SCAN-CARDIAC STRIP 09/29/2023 12 :00 AM MANAGER OF BUSINESS OPERATIONS LIPID PANEL Early AM 07/14/2008 3:00 AM MANAGER OF BUSINESS OPERATIONS from Last 3 Months or Most Recently Relevant to Health Maintenance Results * US ANKLE BRACHIAL INDEX BILATERAL (12/13/2023 12:19 PM CDT) Anatomical Region Laterality Modality ANKLES, ANKLE L, ANKLE R Ultraso und 12/13/2023 11:2 8 AM CDT Narrative 12/13/2023 2:27 PM CDT VASCULAR ULTRASOUND REPORT MICHEAL RENE Accession#: ?? [id number] : ?1955 ??Study Date: ?? 12/13/2023 11:28:00 AM Age: ?68 years ?? Tech: ? MAD Gender: M ?Referring MD: SASHA RODRIGUEZ Site: [facility] [place] [facility] Study performed: ?Lower extremity segmental [...] FINDINGS: Unable to find pulse for bilateral WINDOW AND SIDING CRAFTSMAN and DPA pressures. Right toe/brachial index indicates [...] Accreditation Commission (IAC/Vascular), www.intersocietal.org/vascular Report generated by ReSnap. ??Final ?? Procedure Note Judah Rodriguez MD - 12/13/2023 VASCULAR ULTRASOUND REPORT MICHEAL RENE : 1955 Study Date: 12/13/2023 11:28:00 AM Age: 68 years Tech: MAD Gender: M Referring MD: SASHA RODRIGUEZ Site: [facility] [place] [facility] Study performed: Lower extremity segmental [...] FINDINGS: Unable to find pulse for bilateral WINDOW AND SIDING CRAFTSMAN and DPA pressures. Right toe/brachial index indicates [...] theIntersocietal Accreditation Commission (IAC/Vascular),[email or web address]/vascular Report generated by ReSnap. Final Sasha ANDERSON US * CT ANGIO ABD PELVIS [...] Tibial: Patent. Peroneal: Patent. Posterior Tibial: Patent. Abhinav Burciaga MD JRL/car For Patients: As a result of the Century Cures Act, medical imaging exams and procedure [...] conjunction with the services provided by the [facility] ([facility]). FINDINGS: Lower Chest: Calcified right pleural plaques. [...] CDT Results are automatically released to your [employer] ([employer]) account once available, in compliance with federal [...] * (ABNORMAL) CREATININE,ISTAT (12/13/2023 9:54 AM CDT) [facility] CREATININE, POCT 0.50(L) 0.57 - 1.11 mg/dL 12/13/2023 12:34 PM CDT [facility] Comment:Caution: Patients ta camila Hydroxyurea have falsely increased iStat Creatinine results. Verify creatinine results ordering a Creatinine (38291.2) eGFR >90 >90 mL/min/1.7 3m2 12/13/2023 12:34 PM CDT [facility] Comment:As of 2021, eG FR is calculated by the CKD-EPI creatinine equation without race adjustment. eGFR can be influenced by muscle mass, exercise, and diet. The reported eGFR is an estimation only and is only applicable if the renal function is stable. Blood BLOOD SPECIMEN / Unknown 12/13/2023 9:54 AM CDT 12/13/2023 12:34 PM CDT Sasha ANDERSON CHEMISTRY [facility] [address] [place] [address], * LAB TRACKING EVENT (11/20/2023 11:37 AM CDT) Other (Other) Client Collect / Unknown 11/20/2023 11:37 AM CDT 11/20/2023 9:52 PM CDT Doctor Unknown LAB BILL ONLY [facility] [address] [place] [address], * PATH TISSUE EXAM (11/20/2023 11:37 AM CDT) Case Report Pathology Report ?Case: [id number] ? Authorizing Provider: ??Unknown, Doctor ?Collected: ? 11/20/2023 1137 ? Ordering Location: ? [facility] ?Received: ?11/21/2023 0637 ? Pathologist: ? Francia Aguirre MD ? Specimen: ?Right Heel, R Calcaneus ? 11/24/2023 8:28 AM CDT [facility] Final Diagnosis A) BONE, RIGHT HEEL, BIOPSY: Positive for acute osteomyelitis and chondritis 11/24/2023 8:28 AM CDT [facility] Clinical Information Right heel bone, assess for necrotic tissue and osteomyelitis. 11/24/2023 8:28 AM CDT [facility] Gross Description A) Received in formalin, labeled with the patient's name and date of , is a 1.0 x 0.8 x 0.1 cm aggregate of youngblood-white bone fragments and possible soft tissue. ??The specimen is entirely submitted in 1 cassette following decalcification. [place] 11/22/2023 11/24/2023 8:28 AM CDT [facility] Microscopic Description The final diagnosis is based on microscopic examination of appropriate sections of all specimens. 11/24/2023 8:28 AM CDT [facility] Additional Information Interpreted at [facility] [employer] [facility], Central [facility] - [address] [place] [address] 11/24/2023 8:28 AM CDT [facility] Other (Right Heel) 11/20/2023 11:37 AM CDT 11/21/2023 6:37 AM CDT Doctor Unknown PATHOLOGY/CYTOLOGY [facility] [address] [place] [address], * SCAN-NUCLEAR MEDICINE (10/05/2023 12:00 AM CDT) Anatomical Region Laterality Modality Other Scanner OTHER * EKG 12 LEAD (09/29/2023 6:34 PM MANAGER OF BUSINESS OPERATIONS) Only the most recent of2 resultswithin the [...] NOW QTc 525 ms BEYOND NOW P Paige 82 degrees BEYOND NOW R Paige 94 degrees BEYOND NOW T Paige 48 degrees BEYOND NOW 09/29/2023 6:34 PM MANAGER OF BUSINESS OPERATIONS 09/30/2023 7:15 PM MANAGER OF BUSINESS OPERATIONS Narrative BEYOND NOW - 09/30/2023 7:15 PM MANAGER OF BUSINESS OPERATIONS Test Indication: POST Johanny Betancourt NP EKG ORD BEYOND NOW [place], [place] * XR Chest PA and Lateral (09/29/2023 6:14 PM MANAGER OF BUSINESS OPERATIONS) Anatomical Region Laterality Modality CHEST, THORAX, Lung, HEART Digit al Radiography Impressions 09/29/2023 6:32 PM MANAGER OF BUSINESS OPERATIONS Comparison exam February 09, 2012. Interval placement [...] normal No pneumothorax. Narrative 09/29/2023 6:32 PM MANAGER OF BUSINESS OPERATIONS INDICATION Pacemaker placement TECHNIQUE 2 views of the chest COMPARISON 02/09/2012. Johanny Betancourt NP GENERAL IMAGING * EP Procedure to be Performed (09/29/2023 3:56 PM MANAGER OF BUSINESS OPERATIONS) Narrative Rosa Elena Sahu MD - 09/29/2023 3:56 PM MANAGER OF BUSINESS OPERATIONS Rosa Elena Sahu MD ? 09/29/2023 ??4:08 PM [facility] DUAL CHAMBER PACEMAKER IMPLANTATION PROCEDURE NOTE Micheal Rene [id number] Date: 09/29/2023 Age: 68 y.o. Birthdate: 1955 Sex: male Referring Physician: ??Alex Mata MD Transmitter Engineer In Charge/Dinkey Operator Slag: Rosa Elena Sahu MD Assistants: None Indications [...] Dr. Modi. Full report to follow in [facility] Rosa Elena Sahu MD Electrophysiology Staff Pager: [phone] 09/29/2023 3:57 PM Rosa Elena Sahu MD [employer] OR D * EP PPM (09/29/2023 2:54 PM MANAGER OF BUSINESS OPERATIONS) Anatomical Region Laterality Modality X-Ray Angiograph y, X-Ray Angiography 09/29/2023 2:54 PM MANAGER OF BUSINESS OPERATIONS Narrative Transcriptions Rosa Elena Sahu MD - 09/29/2023 4:26 PM CST [facility] Electrophysiology Implant Report Name: MICHEAL RENE Event Date: 09/29/2023 [facility] ID #: [id number] Date: 1955 Gender: Male Age: [address] [facility] #: [id number] Procedure Performed By: ROSA ELENA SAHU [facility] Referring Physician: Dr. Dariel Modi [...] denies fevers, chills or rigors. Consent & Toledo Protocol Toledo protocol was followed. TIME OUT conducted just [...] Pulse Generator Detail Implanted Status Pocket Location Shank Scourer Model Serial Number 09/29/2023 Implanted Left Pectoral [employer]. Lucan XT DR BUSTAMANTE [id number] 12/21/2012 Explanted Left Pectoral [employer] Inc. Palak Rasmussen DR [id number] 07/14/2008 Explanted Left Pectoral [employer]onic[employer] Inc. EnRhythm [id number] Lead Detail Implanted Status Chamber Location Shank Scourer Model Serial Number 07/14/2008 Chronic Right Ventricle Septum Medtronic, Inc. CapSureFix [id number] 07/14/2008 Capped Right Atrium Right Appendage Medtronic, Inc. FlorentinoFieulaliaNovus [id number] [id number] 09/29/2023 Implanted Right Atrium Right Appendage Medtronic[employer] Inc. CapSureFixNovus 5076-65 [id number] Measurement Transcription Coordinator P/R Wave (mV) Threshold (V) Pulse Width (msec) Resistance (ohms) High Output Stim Result RA 2 5 0.4 664 No Stimulation @ 10 V RV 0 0.75 0.4 418 Not Tested for Stimulation Device Settings Mode Lower Rate (bpm) Upper Rate (bpm) DDD 60 130 GGAAN Delay: 150 msec PAV Delay: 180 msec [...] Raymond Hendrix CVT Scrub Noel Marroquin EPT Deputy City Clerk Yelitza Jane EPT Deputy City Clerk Medications Ordered and Administered Start Time Stop [...] of Final Rosa Elena Sahu MD Implanting Transmitter Engineer In Charge [facility] [address] [place] [address] [place] [address] (p) [phone](f) Rosa Elena Sahu MD CV IMAGING * HCHG MASK PR5 (09/29/2023 2:38 PM MANAGER OF BUSINESS OPERATIONS) Narrative Doretha Kolb FRONT OFFICE DIRECTOR - 09/29/2023 2:38 PM MANAGER OF BUSINESS OPERATIONS Doretha Kolb CRNA ? 09/29/2023 ??2:39 PM Procedure: Supraglottic Patient location during procedure: OR Supraglottic Airway Properties Mask Ventilation: easy Type: unique Tube Size: 4 Placement Verification: auscultation and CO2 detection Assessment Assessment: atraumatic Airway Intervention: repositioned Cuff Volume: 5 Veronika Lozano MD ANESTHESIA PX N OTE ORDERABLES * (ABNORMAL) CBC with Platelets no Differential (09/29/2023 12:17 PM MANAGER OF BUSINESS OPERATIONS) WHITE BLOOD COUNT 5.7 4.5 - 11.0 thou/cu mm 09/29/2023 12:30 PM [facility] RED BLOOD COUNT 3.53(L) 4.30 - 5.90 mil/cu mm 09/29/2023 12:30 PM [facility] HEMOGLOBIN 10.0(L) 13.5 - 17.5 g/dL 09/29/2023 12:30 PM [facility] HEMATOCRIT 31.5(L) 37.0 - 53.0 % 09/29/2023 12:30 PM [facility] MCV 89 80 - 100 fL 09/29/2023 12:30 PM [facility] MCH 28.3 26.0 - 34.0 pg 09/29/2023 12:30 PM [facility] MCHC 31.7(L) 32.0 - 36.0 g/dL 09/29/2023 12:30 PM [facility] RDW 13.2 11.5 - 15.5 % 09/29/2023 12:30 PM [facility] PLATELET COUNT 232 140 - 440 thou/cu mm 09/29/2023 12:30 PM [facility] MPV 7.9 6.5 - 11.0 fL 09/29/2023 12:30 PM [facility] NRBC 0.0 % 09/29/2023 12:30 PM [facility] ABS NRBC 0.0 thou /cu mm 09/29/2023 12:30 PM [facility] Blood BLOOD SPECIMEN / Unknown Non-Lab Venipuncture / Unknown 09/29/2023 12:17 PM MANAGER OF BUSINESS OPERATIONS 09/29/2023 12:23 PM [facility] Rosa Elena Sahu MD HEMATOLOGY [facility] [address] [place] [address], * (ABNORMAL) Basic Metabolic Panel (09/29/2023 12:16 PM MANAGER OF BUSINESS OPERATIONS) SODIUM 139 136 - 145 mmol/L 09/29/2023 12:51 PM [facility] POTASSIUM 4.4 3.5 - 5.1 mmol/L 09/29/2023 12:51 PM [facility] CHLORIDE 106 98 - 107 mmol/L 09/29/2023 12:51 PM [facility] CO2,TOTAL 23 22 - 29 mmol/L 09/29/2023 12:51 PM [facility] ANION GAP 10 5 - 18 09/29/2023 12:51 PM [facility] GLUCOSE 103(H) 70 - 99 mg/dL 09/29/2023 12:51 PM [facility] CALCIUM 9.0 8.8 - 10.2 mg/dL 09/29/2023 12:51 PM [facility] BUN 21 8 - 23 mg/dL 09/29/2023 12:51 PM [facility] CREATININE 0.47(L) 0.70 - 1.20 mg/dL 09/29/2023 12:51 PM [facility] BUN/CREAT RATIO 45(H) 10 - 20 12:51 PM [facility] eGFR >90 >90 mL/min/1.7 3m2 09/29/2023 12:51 PM MANAGER OF BUSINESS OPERATIONS [facility] Comment:As of 2021, eG FR is calculated by the CKD-EPI creatinine equation without race adjustment. ??eGFR can be influenced by muscle mass, exercise, and diet. ??The reported eGFR is an estimation only and is only applicable if the renal function is stable. Blood BLOOD SPECIMEN / Unknown Non-Lab Venipuncture / Unknown 09/29/2023 12:16 PM MANAGER OF BUSINESS OPERATIONS 09/29/2023 12:23 PM MANAGER OF BUSINESS OPERATIONS Rosa Elena Sahu MD CHEMISTRY Performing Organization Address City/[facility]/ZIP Co de Phone Number [facility] [address] [place] [address], * SCAN-CARDIAC STRIP (09/29/2023 12:00 AM MANAGER OF BUSINESS OPERATIONS) Narrative 09/29/2023 12:00 AM MANAGER OF BUSINESS OPERATIONS Ordered by an unspecified provider. Other Clinical Staff OTHER * Lipid Panel - In AM (07/14/2008 3:00 AM MANAGER OF BUSINESS OPERATIONS) CHOLESTEROL,TOTAL 141 110 - 199 mg/dL [facility] TRIGLYCERIDES 41 40 - 149 mg/dL [facility] HDL CHOLESTEROL 45 >40 mg/dL [facility] CHOL/HDL RATIO 3.13 <4.51 [facility] LDL CHOLESTEROL 88 <131 mg/dL [facility] PATIENT STATUS Fasting [facility] Blood specimen (specimen) BLOOD SPECIMEN / Unknown 07/14/2008 3:00 AM MANAGER OF BUSINESS OPERATIONS 07/14/2008 1:52 AM MANAGER OF BUSINESS OPERATIONS Phyllis Sánchez MD CHEMISTRY Performing Organization Address City/[facility]/ZIP Co de Phone Number [facility] INTERNAL ZIP [address] [place] [phone] from Last 3 Months or Most Recently [...] 12 months since positive culture): resides in acute/terminal clerk care, receiving hemodialysis, has chronic open wounds/skin [...] 12:49 PM 12/25/2015 1:24 PM Care Teams Primary Teacher Relationship Specialty Start Date End Date Alex Mata MD [address] [place] [address] PCP - General Family Practice 02/04/20 Ana Mayers [address] [place] [address] Nurse Practitioner 03/02/11 Jak Keys NP [facility] [address] [place] [address] Nurse Practitioner Nurse Practitioner - Adult 10/30/23
== END 2023-12-25 10:34 | disposition home or self-care (01) ==
LOC: WOUND 10:33
PROVIDERS: PCP Family Medicine; Visit Provider Nurse Practitioner Family
DX: M86.171 Other acute osteomyelitis, right ankle and foot (principal); L89.614 Pressure ulcer of right heel, stage 4; L89.893 Pressure ulcer of other site, stage 3; L89.314 Pressure ulcer of right buttock, stage 4; L89.894 Pressure ulcer of other site, stage 4; L89.514 Pressure ulcer of right ankle, stage 4
CPT/HCPCS: 11042; 11043; 11046; 96372; 97597; J0696

== ENCOUNTER 2024-01-01 10:57 | Outpatient (CLI) | payer OTHER, SELFPAY ==
--- OUTSIDE RECORDS SUMMARY | 2024-01-01 10:59 | XMS_ITS | Continuity of Care Document ---
Author Organization [facility] Address [address] [place] [address] Care Team Providers Care Precinct Police Sergeant Name Role Phone CHETNA MERAZ Primary Care Provider RAHUL OCONNOR Bronc Breaker Assessment Encounter Date Assessment Date Assessment LastModified [...] Orders methenamine hippurate 1 gram tablet 2023 [facility][id number], [address] [place], [place], [phone], 23:05:37 oxybutynin chloride ER 15 mg tablet,exte nded release 24 hr 2023 [facility] #[id number], [address] [place], [place], [phone], 23:04:50 Patient TargetsNo targets recorded. Patient InstructionsNo instructions recorded. Reason for Referral None Reported. Procedures Surgical History Date Name Laterality Status Provider Name and Address Organization Details Recorded Time COMPLEX VISIT completed Jono Pagan MD [address], [place], [address], [facility] 11/01/2023 08:09:54 excision of pressure injury completed Jono Pagan MD [address], [place], [address], [facility] 09/28/2022 11:00:08 maintenance procedure for cardiac pacemaker system completed Veronika Kotharijacqueline [facility] 11/01/2023 11:05:10 Imaging Results None recorded. Procedure Notes None recorded. Medical Equipment None Reported. Allergies Allergen ID Allergen Name Allergen Category Reaction Reaction Severity Criticality Documentation Date Start Date Code Code System Note Provider Name and Address Organization Details Recorded Time 044516 Medicinal product containin g cephalosp pao and acting as antibacte rial agent (product) medicatio n Not available Not available Not available 09/27/2021 30435 9009 SNOMED Nasreen Salas [facility] 2 12:43:20 518455 shellfish derived food,medi cation Not available Not available Not available 11/01/2023 Veronika aguila [facility] 4 11:03:08 Medications Name Sig Start Date [...] Updated DateTime 11/01/2023 182.88 cm 18.7 kg/m2 14689.[address] [facility] 11/01/2023 11:02:57 Social History Question Answer Notes LastModified by Organizat ion Details LastModified Time Tobacco Smoking Status [facility]18[facility]21 14:55:09 What Is Your Level [...] Recorded Time IPV 11/19/2004 completed Mindy hwang [facility] 04/28/2023 11:39:35 COVID-19, mRNA, LNP-S, PF, 30 mcg/0.3 mL dose 08/20/2020 completed Mindy hwang [facility] 04/28/2023 11:39:35 COVID-19, mRNA, LNP-S, PF, 30 mcg/0.3 mL dose 09/14/2020 [facility] 11:39:35 Pneumococcal conjugate PCV20, polysaccharide JTG237 conjugate, adjuvant, PF 12/01/2022 [facility] 11:39:35 influenza, unspecified formulation 05/24/2006 completed Mindy hwang [facility] 04/28/2023 11:39:35 Tdap 09/01/2006 [facility]2023 11:39:35 Tdap 12/26/2008 [facility]2023 11:39:35 zoster live 01/29/2015 [facility]2023 11:39:35 Influenza, split virus, trivalent, PF 03/25/2011 [facility]23 11:39:35 Influenza, split virus, trivalent, PF 05/24/2012 [facility]2023 11:39:35 Td (adult), 2 Lf tetanus toxoid, preservative free, adsorbed 03/21/1997 [facility]23 11:39:35 Hep B, adult 09/01/2006 [facility] 11:39:35 Hep B, adult 11/19/2004 completed Mindy Malone eri [facility] 04/28/2023 11:39:35 Hep B, adult 03/30/2007 completed Mindy Solitarioalice eri [facility] 04/28/2023 11:39:35 Hep A, adult 09/30/2002 completed Mindy Solitarioalice eri [facility] 04/28/2023 11:39:35 Hep A, adult 11/19/2004 completed Mindy Solitarioalice eri [facility] 04/28/2023 11:39:35 Hep A, adult 05/01/2003 completed Mindy Solitarioalice eri, [facility] 04/28/2023 11:39:35 typhoid, ViCPs 09/01/2006 completed Mindy Solitarioalice eri [facility] 04/28/2023 11:39:35 typhoid, ViCPs 09/30/2002 completed Mindy Solitarioalice eri [facility] 04/28/2023 11:39:35 Past Encounters Encounter ID Performer Location Encounter Start Date Encounter Closed Date Diagnosis/Indication Diagnosis SNOMED-CT Code [id number] Jono Pagan MD [facility] [address] [place] [address] 11/01/2023 10:52:02 11/02/2023 14:01:41 Neurogenic bladder 448227528 Spinal cord injury 88119 004 Spasm of bladder 3622607 06 Recurrent urinary tract infection [id number] Health Concerns Section Related Observation LastModified by Organization Detai ls LastModified Time None Recorded Concern Status LastModified by Organization Details LastModified Time None Recorded Payers Encounter Date Sequence Insurance Name Policy Number Policy Quinones Covered Member ID Quinones Member ID Guarantor Name 11/01/2023 [facility] [id number] Levar Rene Notes Date Note Type Note [...] condom catheter when traveling. Jono Pagan MD [address], [place], [address], [place] [facility] 11/01/2023 23:05:58
--- OUTSIDE RECORDS SUMMARY | 2024-01-01 10:59 | XMS_ITS | Clinical Summary ---
Author Organization [facility] Address [place], [place] [address] Care Team Providers Care Automotive Parts Clerk Name Role Phone Goyoluis aAna Unavailable Alex Mata MD Primary Care Provider + Jak Keys FEATHER EDGER Unavailable [phone] Allergies Active Allergy Reactions Criticality Noted Date Comments Blood-Group Specific Substance Other - Describe In Comment Field 04/19/2021 Patient has Sims a (Fya) antibody. Blood products may be delayed. Draw patient 24 hours prior to transfusion. For [employer] testing, draw one red top and two [...] 09/20/23 bilateral lower extremity arterial ultrasound ([facility]) S/P flap graft 03/06/2020 Neurogenic orthostatic [...] Type Department Care Team Description 12/22/2023 Telephone [facility] [address] [place] [address] Paul Bishop MD Referral 12/13/2023 11:23 AM CDT - 12/13/2023 11:59 PM CDT Hospital Encounter [facility] [address] [place] [address] Sasha Rodriguez PA PAD (peripheral artery disease) (HC) 12/13/2023 Travel 11/28/2023 12:30 PM CDT Office Visit [facility] [address] [place] [address] Clarissa Murray AuD Hearing Aid (consult) 11/27/2023 1:00 PM CDT Office Visit [facility] [address] [place] [address] Tuttle-Brown, Angy, AuD Hearing Problem (Hearing test) 11/27/2023 Travel 11/23/2023 Travel 11/20/2023 Lab Requisition [facility] [phone] Unknown, Doctor 11/17/2023 11:15 AM CDT Office Visit [facility] [address] [place] [address] Jak Keys NP Wound Check 11/17/2023 11:00 AM CDT Office Visit [facility] [address] [place] [address] 11/17/2023 Orders Only [facility] [address] [place] [address] Sasha Rodriguez PA <No scans attached> 11/17/2023 Travel 11/09/2023 9:45 AM CDT Office Visit [facility] [address] [place] [address] Consult 11/09/2023 Travel 11/01/2023 Telephone [facility] [address] [address] Cardiology, Anw Follow Up 10/31/2023 Transcribe Orders [address] [phone] Alex Mata MD 10/30/2023 9:15 AM CDT Office Visit [facility] [address] [place] [address] Jak Keys NP Consult 10/30/2023 Travel 10/26/2023 Telephone [facility] [address] [facility] [address] [place] [phone] Ramya Savage, RN Device Check 10/05/2023 Orders Only [facility] Scanner 1 scan: (1-Ord) [facility], NUCLEAR MEDICINE, 10/05/2023 10/01/2023 Travel from Last 3 Months Immunizations Name [...] (133 lb 14.4 oz) 09/29/2023 12:13 PM [employer] REPORT DEVELOPER Height 182.9 cm (6') 09/29/2023 12:13 PM COGNOS REPORT DEVELOPER Body Mass Index 18.16 09/29/2023 12:13 PM COGNOS REPORT DEVELOPER Plan of Treatment Upcoming Encounters Date Type Department Care Team (Late st Contact Info) Description 01/02/2024 8:30 AM CDT Cardiac Device Check [facility] [address] [place] [address] 01/17/2024 8:00 AM CDT Office Visit [facility] [address] [phone] Maria Guadalupe Leong MD [address] [place] [address] 02/01/2024 8:15 AM CDT Office Visit [facility] [address] [place] [phone] Raquel Multani MD [address] [facility] [address] [place], [place] [phone] Health Maintenance Due Date Last Done Comments [...] 12/26/2008, 09/01/2006 Medical Devices Implanted Type Area Aircraft Painter Apprentice Device Identifier Shelf Expiration Date Model / Serial / Lot Standard Pacemaker-12/21 Implanted:11/23 by Judson Jenkins MD (Quantity not on file) Standard Pacemaker Medtronic [id number] / [id number] / Procedures Procedure Name Priority Date/Time Associated [...] CDT SCAN-NUCLEAR MEDICINE 10/05/2023 12:00 AM CDT LIPID PANEL Early AM 07/14/2008 3:00 AM [employer] REPORT DEVELOPER from Last 3 Months or Most Recently Relevant to Health Maintenance Results * US ANKLE BRACHIAL INDEX BILATERAL (12/13/2023 12:19 PM CDT) Anatomical Region Laterality Modality ANKLES, ANKLE L, ANKLE R Ultraso und 12/13/2023 11:2 8 AM CDT Narrative 12/13/2023 2:27 PM CDT VASCULAR ULTRASOUND REPORT MICHEAL RENE Accession#: ?? [id number] : ?1955 ??Study Date: ?? 12/13/2023 11:28:00 AM Age: ?68 years ?? Tech: ? MAD Gender: M ?Referring MD: SASHA RODRIGUEZ Site: [facility] Study performed: ?Lower extremity segmental [...] FINDINGS: Unable to find pulse for bilateral CRYPTANALYST and DPA pressures. Right toe/brachial index indicates [...] Accreditation Commission (IAC/Vascular), www.intersocietal.org/vascular Report generated by [employer]. ??Final ?? Procedure Note Judah Rodriguez MD - 12/13/2023 VASCULAR ULTRASOUND REPORT MICHEAL RENE : 1955 Study Date: 12/13/2023 11:28:00 AM Age: 68 years Tech: AREN Gender: M Referring MD: SASHA RODRIGUEZ Site: [facility] Study performed: Lower extremity segmental [...] FINDINGS: Unable to find pulse for bilateral CRYPTANALYST and DPA pressures. Right toe/brachial index indicates [...] theIntersocietal Accreditation Commission (IAC/Vascular),www.intersocietal.org/vascular Report generated by [employer]. Final Sasha ANDERSON US * CT ANGIO [...] conjunction with the services provided by the [facility] [place] ([facility]). FINDINGS: Lower Chest: Calcified right pleural plaques. [...] CDT Results are automatically released to your [employer] ([employer]) account once available, in compliance with federal [...] * (ABNORMAL) CREATININE,ISTAT (12/13/2023 9:54 AM CDT) CREATININE, POCT 0.50(L) 0.57 - 1.11 mg/dL 12/13/2023 12:34 PM CDT [facility] Comment:Caution: Patients ta camila Hydroxyurea have falsely increased iStat Creatinine results. Verify creatinine results ordering a Creatinine (55547.2) eGFR >90 >90 mL/min/1.7 3m2 12/13/2023 12:34 PM CDT [facility] Comment:As of 2021, eG FR is calculated by the CKD-EPI creatinine equation without race adjustment. eGFR can be influenced by muscle mass, exercise, and diet. The reported eGFR is an estimation only and is only applicable if the renal function is stable. Blood BLOOD SPECIMEN / Unknown 12/13/2023 9:54 AM CDT 12/13/2023 12:34 PM CDT Sasha ANDERSON CHEMISTRY [facility] [address] [place] [address], * LAB TRACKING EVENT (11/20/2023 11:37 AM CDT) Other (Other) Client Collect / Unknown 11/20/2023 11:37 AM CDT 11/20/2023 9:52 PM CDT Doctor Unknown LAB BILL ONLY [facility] [address] [place] [address], * PATH TISSUE EXAM (11/20/2023 11:37 AM CDT) Case Report Pathology Report ?Case: [id number] ? Authorizing Provider: ??Unknown, Doctor ?Collected: ? 11/20/2023 1137 ? Ordering Location: ? [facility] ?Received: ?11/21/2023 0637 ? Pathologist: ? Francia Aguirre MD ? Specimen: ?Right Heel, R Calcaneus ? 11/24/2023 8:28 AM CDT [facility] Final Diagnosis A) BONE, RIGHT HEEL, BIOPSY: Positive for acute osteomyelitis and chondritis 11/24/2023 8:28 AM CDT [facility] Clinical Information Right heel bone, assess for necrotic tissue and osteomyelitis. 11/24/2023 8:28 AM CDT [facility] Gross Description A) Received in formalin, labeled with the patient's name and date of , is a 1.0 x 0.8 x 0.1 cm aggregate of youngblood-white bone fragments and possible soft tissue. ??The specimen is entirely submitted in 1 cassette following decalcification. [place] 11/22/2023 11/24/2023 8:28 AM CDT [facility] Microscopic Description The final diagnosis is based on microscopic examination of appropriate sections of all specimens. 11/24/2023 8:28 AM CDT [facility] Additional Information Interpreted at [facility] - [address] [place] [address] 11/24/2023 8:28 AM CDT [facility] Other (Right Heel) 11/20/2023 11:37 AM CDT 11/21/2023 6:37 AM CDT Doctor Unknown PATHOLOGY/CYTOLOGY [facility] [address] [place] [address], * SCAN-NUCLEAR MEDICINE (10/05/2023 12:00 AM CDT) Anatomical Region Laterality Modality Other Scanner OTHER * Lipid Panel - In AM (07/14/2008 3:00 AM [employer] REPORT DEVELOPER) CHOLESTEROL,TOTAL 141 110 - 199 mg/dL [facility] TRIGLYCERIDES 41 40 - 149 mg/dL [facility] HDL CHOLESTEROL 45 >40 mg/dL [facility] CHOL/HDL RATIO 3.13 <4.51 [facility] LDL CHOLESTEROL 88 <131 mg/dL [facility] PATIENT STATUS Fasting [facility] Blood specimen (specimen) BLOOD SPECIMEN / Unknown 07/14/2008 3:00 AM [employer] REPORT DEVELOPER 07/14/2008 1:52 AM [employer] REPORT DEVELOPER Phyllis Sánchez MD CHEMISTRY [facility] INTERNAL ZIP [address] [address] from Last 3 Months or Most Recently [...] 12 months since positive culture): resides in acute/penitentiary care, receiving hemodialysis, has chronic open wounds/skin [...] 12:49 PM 12/25/2015 1:24 PM Care Teams Automotive Parts Clerk Relationship Specialty Start Date End Date Alex Mata MD [address] [place] [address] PCP - General Family Practice 02/04/20 Ana Mayers [address] [place] [address] Nurse Practitioner 03/02/11 Jak Keys NP [facility] [address], [place] [address] Nurse Practitioner Nurse Practitioner - Adult 10/30/23
--- OUTSIDE RECORDS SUMMARY | 2024-01-01 10:59 | XMS_ITS | Data Portability ---
Author Organization [facility], [facility] Address [address] [place] [address] Care Team Providers Care Latin American Studies Professor Name Role Phone CHETNA MERAZ Primary Care Provider RAHUL OCONNOR Pattern Scratcher Assessment Encounter Date Assessment Date Assessment LastModified by Organization Details LastModified Time 02/18/2021 02/18/2021 65 yoM with history of neurogenic bladder secondary to spinal cord injury. [email or web address] Not available 02/18/2021 14:05:55 09/27/2021 09/27/2021 65 [...] None recorded. Lab culture, urine 2020 021 [facility], [address], [place], [address], 07:39:35 urinalysis, dipstick 2020 021 [email or web address] Not available 11:34:22 urinalysis, dipstick 2020 021 [email or web address] Not available 14:48:24 culture, urine 2020 021 [facility], [address], [address], [place], [address], 09:38:15 Referral None recorded. Procedures None recorded. Surgeries None recorded. Imaging US, kidney 2021 022 [facility], [address] [place], [address], 2 09:00:29 Medication Orders methenamine hippurate 1 gram tablet 2023 024 [facility]41991, [address], [place], [place], [id number], 4 23:05:37 oxybutynin chloride ER 15 mg tablet,exte nded release 24 hr 2023 024 [facility] #83972, [address], [place], [place], [id number], 4 23:04:50 oxybutynin chloride ER 15 mg tablet,exte nded release 24 hr 2022 023 [facility] #03461, [address], [place], [place], [id number], 3 12:15:06 methenamine hippurate 1 gram tablet [email or web address] [place] [address] [facility]65339, [address], [place], [place], [id number], 4 23:05:30 nitrofurant oin macrocrysta l 50 mg capsule [address] [facility]87405, [address] [facility], [place], [id number], 4 08:10:56 oxybutynin chloride ER 15 mg tablet,exte nded release 24 hr 2021 022 [facility] #69886, [address] [facility], [place], [place], [id number], 2 12:53:22 nitrofurant oin macrocrysta l 50 mg capsule [address] [facility]18143, [address] [place], [id number], 4 08:10:56 Bactrim DS 800 mg-160 mg tablet [address] [facility], [address] [place] [address], [address], 2 12:43:46 nitrofurant oin macrocrysta l 50 mg capsule [address] [facility], [address] [place] [address], [address], 4 08:10:56 Patient TargetsNo targets recorded. Patient InstructionsNo instructions recorded. Reason for Referral None Reported. Results Created Date Observation Date Name Description Value Unit Range Abnormal Flag LastModifiedBy Organization Detail LastModifiedTime 05/12/2021 urina lysis , dipst ick Color-Status Yellow Not Available [facility] [address], [place], [address], 05/12/2021 11:33:40 05/12/2021 urina lysis , dipst ick Clarity-Stat us Cloudy Not Available [facility] [address], [place], [address], 05/12/2021 11:33:40 05/12/2021 urina lysis , dipst ick pH-Status 7.5 Not Available [facility] [address], [place], [address], 05/12/2021 11:33:40 05/12/2021 urina lysis , dipst ick Nitrates-Sta tus positi ve Not Available [facility] [address], [place], [address], 05/12/2021 11:33:40 05/12/2021 urina lysis , dipst ick Blood-Status Small Not Available [facility] [address], [place], [address], 05/12/2021 11:33:40 05/12/2021 urina lysis , dipst ick Leuko-Status Large Not Available [facility] [address], [place], [address], 05/12/2021 11:33:40 02/18/2021 urina lysis , dipst ick Color-Status Straw Not Available [facility] [address], [place], [address], 02/18/2021 14:44:35 02/18/2021 urina lysis , dipst ick Clarity-Stat us Cloudy Not Available [facility] [address], [place], [address], 02/18/2021 14:44:35 02/18/2021 urina lysis , dipst ick Glucose-Stat us Negati ve Not Available [facility] [address], [place], [address], 02/18/2021 14:44:35 02/18/2021 urina lysis , dipst ick Bilirubin-St atus Negati ve Not Available [facility] [address], [place], [address], 02/18/2021 14:44:35 02/18/2021 urina lysis , dipst ick Ketones-Stat us Negati ve Not Available [facility] [address], [place], [address], 02/18/2021 14:44:35 02/18/2021 urina lysis , dipst ick Sp Lancing-Stat us 1.015 Not Available [facility] [address], [place], [address], 02/18/2021 14:44:35 02/18/2021 urina lysis , dipst ick Nitrates-Sta tus positi ve Not Available [facility] [address], [place], [address], 02/18/2021 14:44:35 02/18/2021 urina lysis , dipst ick Blood-Status Trace Not Available [facility] [address], [place], [address], 02/18/2021 14:44:35 02/18/2021 urina lysis , dipst ick Leuko-Status Large Not Available [facility] [address], [place], [address], 02/18/2021 14:44:35 02/19/20 21 02/18/2021 URINE CULTU RE final report Microb iology result s abnormal Not Available [facility] [address], [place], [address], 02/20/2021 09:38:14 05/06/20 21 05/06/2021 URINE CULTU RE final report MICROB IOLOGY RESULT S abnormal Not Available [facility] [address], [place], [address], 05/08/2021 07:39:35 10/07/19 22 10/05/2021 US, aaliyah zimmerman No observ ation record ed. [address] Radiology Department [address] [place], [address], 09/28/2022 13:47:50 Result Notes None recorded. Procedures Surgical History Date Name Laterality Status Provider Name and Address Organization Details Recorded Time COMPLEX VISIT completed Jono Pagan MD [address] [facility] [address], [place], [address], [place] [facility] 11/01/2023 08:09:54 excision of pressure injury completed Jono Pagan MD [address] [facility] [facility] [address], [place], [address], [place] [facility] 09/28/2022 11:00:08 maintenance procedure for cardiac pacemaker system completed Veronika hwang [facility] 11/01/2023 11:05:10 Imaging Results Imaging Date Name Status LastModified by Organiz ation Details LastModified Time 10/05/2021 US, kidney completed [address] Radiology Department [address] [place], [address], 09/28/2022 13:47:50 Procedure Notes None recorded. Medical Equipment None Reported. Allergies Allergen ID Allergen Name Allergen Category Reaction Reaction Severity Criticality Documentation Date Start Date Code Code System Note Provider Name and Address Organization Details Recorded Time 218421 Medicinal product containin g cephalosp pao and acting as antibacte rial agent (product) medicatio n Not available Not available Not available 09/27/2021 72278 9009 SNOMED Nasreen Maritza hwang [facility] 2 12:43:20 660872 shellfish derived food,medi cation Not available Not available Not available 11/01/2023 Veronika hwang [facility] 4 11:03:08 Medications Name Sig Start Date [...] Updated DateTime 09/28/2022 182.88 cm 19.4 kg/m2 48644.71 g Veronika Begum [facility] 09/28/2022 10:55:01 Date Recorded Body height Body mass index (BMI) Body weight Provider Name and Address Organization Details Last Updated DateTime 04/28/2023 182.88 cm 19.4 kg/m2 85357.71 g Mindy Malone [facility] 04/28/2023 11:39:29 Date Recorded Body height Body mass index (BMI) Body weight Provider Name and Address Organization Details Last Updated DateTime 10/12/2023 182.88 cm 19.4 kg/m2 04105.71 g Veronika Begum [facility] 10/12/2023 12:26:19 Date Recorded Body height Body mass index (BMI) Body weight Provider Name and Address Organization Details Last Updated DateTime 11/01/2023 182.88 cm 18.7 kg/m2 35240.75 g Veronika Begum [facility] 11/01/2023 11:02:57 Date Recorded Body height Body mass index (BMI) Body weight Provider Name and Address Organization Details Last Updated DateTime 02/18/2021 182.88 cm 19.4 kg/m2 02511.71 g Atilio Caban [facility] 02/18/2021 14:51:29 Date Recorded Body height Body mass index (BMI) Body weight Provider Name and Address Organization Details Last Updated DateTime 05/06/2021 182.88 cm 19.4 kg/m2 32411.71 g Chelsea Medrano [facility] 05/06/2021 12:47:45 Date Recorded Body height Body mass index (BMI) Body weight Provider Name and Address Organization Details Last Updated DateTime 09/27/2021 182.88 cm 19.4 kg/m2 56622.71 g Nasreen Salas [facility] 09/27/2021 12:43:07 Social History Question Answer Notes LastModified by Organizat ion Details LastModified Time Tobacco Smoking Status Former Smoker Atilio Caban [facility] 02/18/2021 14:55:09 What Is Your Level Of [...] Recorded Time IPV 11/19/2004 completed Mindy hwang [facility] 04/28/2023 11:39:35 COVID-19, mRNA, LNP-S, PF, 30 mcg/0.3 mL dose 08/20/2020 completed Mindy hwang [facility] 04/28/2023 11:39:35 COVID-19, mRNA, LNP-S, PF, 30 mcg/0.3 mL dose 09/14/2020 completed Mindy hwang [facility] 04/28/2023 11:39:35 Pneumococcal conjugate PCV20, polysaccharide [id number] conjugate, adjuvant, PF 12/01/2022 completed Mindy hwang [facility] 04/28/2023 11:39:35 influenza, unspecified formulation 05/24/2006 completed Mindy hwang [facility] 04/28/2023 11:39:35 Tdap 09/01/2006 completed Mindy hwang [facility] 04/28/2023 11:39:35 Tdap 12/26/2008 completed Mindy hwang [facility] 04/28/2023 11:39:35 zoster live 01/29/2015 completed Mindy hwang [facility] 04/28/2023 11:39:35 Influenza, split virus, trivalent, PF 03/25/2011 completed Mindy hwang [facility] 04/28/2023 11:39:35 Influenza, split virus, trivalent, PF 05/24/2012 completed Mindy hwang [facility] 04/28/2023 11:39:35 Td (adult), 2 Lf tetanus toxoid, preservative free, adsorbed 03/21/1997 completed Mindy hwang [facility] 04/28/2023 11:39:35 Hep B, adult 09/01/2006 completed Mindy hwang, [facility] 04/28/2023 11:39:35 Hep B, adult 11/19/2004 completed Mindy hwang, [facility] 04/28/2023 11:39:35 Hep B, adult 03/30/2007 completed Mindy hwang, [facility] 04/28/2023 11:39:35 Hep A, adult 09/30/2002 completed Mindy hwang, [facility] 04/28/2023 11:39:35 Hep A, adult 11/19/2004 completed Mindy hwang, [facility] 04/28/2023 11:39:35 Hep A, adult 05/01/2003 completed Mindy hwang [facility] 04/28/2023 11:39:35 typhoid, ViCPs 09/01/2006 completed Mindy hwang, [facility] 04/28/2023 11:39:35 typhoid, ViCPs 09/30/2002 completed Mindy hwang, [facility] 04/28/2023 11:39:35 Past Encounters Encounter ID Performer Location Encounter Start Date Encounter Closed Date Diagnosis/Indication Diagnosis SNOMED-CT Code [id number] MD Gage Villareal [address] [place] [address] 02/18/2021 14:23:42 02/19/2021 12:13:21 Neurogenic bladder 294412060 Spinal cord injury 67095 004 Spasm of bladder 6592981 06 Recurrent urinary tract infection 742096607 Acute urin estefany tract infection [id number] Marlene Greer [facility] [address] [place] [address] 05/06/2021 11:58:15 05/11/2021 03:52:30 Abnormal urine [id number] MD Gage Villareal [address] [place] [address] 09/27/2021 12:37:54 10/27/2021 09:29:43 Neurogenic bladder 972253388 Spinal cord injury 37669 004 Spasm of bladder 2386621 06 Recurrent urinary tract infection [id number] Jono Pagan MD [facility] [address] [place] [address] 09/28/2022 10:53:21 10/01/2022 11:26:52 Neurogenic bladder 339738673 Spinal cord injury 13093 004 Spasm of bladder 1881548 06 Recurrent urinary tract infection [id number] MD [facility]IKE [facility] [address] [place] [address] 04/28/2023 11:30:11 05/04/2023 11:13:13 Neurogenic bladder 233137425 Spinal cord injury 47758 004 Spasm of bladder 4614884 06 Recurrent urinary tract infection [id number] [facility] [address] [place] [address] 11/01/2023 10:52:02 11/02/2023 14:01:41 Neurogenic bladder 553991038 Spinal cord injury 47988 004 Spasm of bladder 3320151 06 Recurrent urinary tract infection Health Concerns Section Related Observation LastModified by Organization Detai ls LastModified Time None Recorded Concern Status LastModified by Organization Details LastModified Time None Recorded Advance Directives Directive None Recorded Payers Encounter Date Sequence Insurance Name Policy Number Policy Quinones Covered Member ID Quinones Member ID Guarantor Name 11/01/2023 [facility] [employer] [id number] Levar Rios [facility] Khanh C [place] 04/28/2023 1 [facility] (MEDICARE REPLACEMENT/AD VANTAGE - PPO) [id number] Khanh Rene [id number] Khanh Rene 09/28/2022 [facility] [employer] [id number] Levar Rios [facility] Khanh C [place] 09/27/2021 1 [facility] (MEDICARE REPLACEMENT/AD VANTAGE - PPO) [id number] Khanh Rene [id number] Khanh Rene 05/06/2021 [facility] [employer] [id number] Levar Rene 02/18/2021 [facility] [id number] Levar Rene Notes Date Note Type Note [...] occasional low grade fever. Jono Pagan MD [address] [place] [address],[address], [address], [facility] 02/18/2021 22:42:35 05/06/2021 text/html HPI Notes: Pt he re for UA/UC due to low back ache, cloudy urine with sediment present X 1.5 weeks. pt given cipro 500mg BID pending culture. 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 Jono Pagan MD [address] [place] [address],[address], [place], [address], [facility] 09/27/2021 13:13:14 09/28/2022 text/html HPI [...] no upper tract abnormality. Jono Pagan MD [address] [place] [address],[address], [address], [facility] 09/28/2022 13:48:55 04/28/2023 text/html HPI [...] since the summer. Jono Pagan MD [address] [facility] [address], [place], [address], [facility] 04/28/2023 12:27:52 11/01/2023 text/html HPI [...] catheter when traveling. Jono Pagan MD [address] [facility] [address], [place], [address], [facility] 11/01/2023 23:05:58
== END 2024-01-01 10:58 | disposition home or self-care (01) ==
LOC: WOUND 10:57
PROVIDERS: PCP Family Medicine; Visit Provider Nurse Practitioner Family
DX: M86.171 Other acute osteomyelitis, right ankle and foot (principal); L89.614 Pressure ulcer of right heel, stage 4; L89.893 Pressure ulcer of other site, stage 3; L89.314 Pressure ulcer of right buttock, stage 4; L89.514 Pressure ulcer of right ankle, stage 4; L89.894 Pressure ulcer of other site, stage 4; G82.20 Paraplegia, unspecified; S14.155S Other incomplete lesion at C5 level of cervical spinal cord, sequela; Z99.3 Dependence on wheelchair
CPT/HCPCS: 11043; 11046; 96372; 97597; 97602; J0696

== ENCOUNTER 2024-01-15 10:56 | Outpatient (CLI) | payer OTHER, SELFPAY ==
--- OUTSIDE RECORDS SUMMARY | 2024-01-15 10:58 | XMS_ITS | Clinical Summary ---
Author Organization [employer] Address [place], [place] [address] Care Team Providers Care Gore Cutter Name Role Phone Goyoluis aAna Unavailable Alex Mata MD Primary Care Provider + Jak Keys AUTOMOBILE SERVICE STATION MECHANIC Unavailable [phone] Allergies Active Allergy Reactions Criticality Noted Date Comments Blood-Group Specific Substance Other - Describe In Comment Field 04/19/2021 Patient has Sims a (Fya) antibody. Blood products may be delayed. Draw patient 24 hours prior to transfusion. For Kalido testing, draw one red top and two [...] Overview: 09/20/23 bilateral lower extremity arterial ultrasound ([facility]) S/P flap graft 03/06/2020 Neurogenic orthostatic hypotension [...] Encounters Date Type Department Care Team Description 01/02/2024 Travel 12/22/2023 Telephone [facility] [address] [place] [address] Paul Bishop MD Referral 12/13/2023 11:23 AM CDT - 12/13/2023 11:59 PM CDT Hospital Encounter [facility] [address] [place] [address] Sasha Rodriguez PA PAD (peripheral artery disease) (HC) 12/13/2023 Travel 11/28/2023 12:30 PM CDT Office Visit [facility] [address] [facility] [place] [address] Clarissa Murray AuD Hearing Aid (consult) 11/27/2023 1:00 PM CDT Office Visit [facility] [address] [place] [address] Angy Israel AuD Hearing Problem (Hearing test) 11/27/2023 Travel 11/23/2023 Travel 11/20/2023 Lab Requisition [facility] CENTRAL LAB [phone] Unknown, Doctor 11/17/2023 11:15 AM CDT Office Visit [facility] [address] [place] [address] Jak Keys NP Wound Check 11/17/2023 11:00 AM CDT Office Visit [facility] [address] [place] [address] 11/17/2023 Orders Only [facility] [address] [address] Sasha Rodriguez PA <No scans attached> 11/17/2023 Travel 11/09/2023 9:45 AM CDT Office Visit [facility] [address] [address] Consult 11/09/2023 Travel 11/01/2023 Telephone [facility] [address] [address] Cardiology, Anw Follow Up 10/31/2023 Transcribe Orders [facility] [address] [place] [address] Alex Mata MD 10/30/2023 9:15 AM CDT Office Visit [facility] [address], [place] [address] Jak Keys NP Consult 10/30/2023 Travel 10/26/2023 Telephone [facility] [address] [address] Ramya Savage, RN Device Check from Last 3 Months Immunizations Name Administration [...] (133 lb 14.4 oz) 09/29/2023 12:13 PM AIR AND HYDRONIC BALANCING TECHNICIAN Height 182.9 cm (6') 09/29/2023 12:13 PM AIR AND HYDRONIC BALANCING TECHNICIAN Body Mass Index 18.16 09/29/2023 12:13 PM AIR AND HYDRONIC BALANCING TECHNICIAN Plan of Treatment Upcoming Encounters Date Type Department Care Team (Late st Contact Info) Description 01/17/2024 8:00 AM CDT Office Visit [facility] [address] [place] [address] Maria Guadalupe Leong MD [address] [place] [address] 02/01/2024 8:15 AM CDT Office Visit [facility] [address] [place] [address] Raquel Multani MD [address] [place], [place] [id number] 05/03/2024 Cardiac Device Check [facility] [phone] Health Maintenance Due Date Last Done Comments [...] 12/26/2008, 09/01/2006 Medical Devices Implanted Type Area Safety Lead Device Identifier Shelf Expiration Date Model / Serial / Lot Standard Pacemaker-12/21 Implanted:11/23 by Judson Jenkins MD (Quantity not on file) Standard Pacemaker Medtronic ADDRL1 / [id number] / Procedures Procedure Name Priority Date/Time Associated [...] EXAM Routine 11/20/2023 11:3 7 AM CDT LIPID PANEL Early AM 07/14/2008 3:00 AM AIR AND HYDRONIC BALANCING TECHNICIAN from Last 3 Months or Most Recently Relevant to Health Maintenance Results * US ANKLE BRACHIAL INDEX BILATERAL (12/13/2023 12:19 PM CDT) Anatomical Region Laterality Modality ANKLES, ANKLE L, ANKLE R Ultraso und 12/13/2023 11:2 8 AM CDT Narrative 12/13/2023 2:27 PM CDT VASCULAR ULTRASOUND REPORT MICHEAL RENE Accession#: ?? [id number] : ?1955 ??Study Date: ?? 12/13/2023 11:28:00 AM Age: ?68 years ?? Tech: ? MAD Gender: M ?Referring MD: SASHA RODRIGUEZ Site: [facility] Study performed: ?Lower extremity segmental [...] FINDINGS: Unable to find pulse for bilateral ENVIRONMENTAL PROTECTION ECONOMIST and DPA pressures. Right toe/brachial index indicates [...] Accreditation Commission (IAC/Vascular), www.intersocietal.org/vascular Report generated by [employer]. ??Final ?? Procedure Note Judah Rodriguez MD - 12/13/2023 VASCULAR ULTRASOUND REPORT MICHEAL RENE : 1955 Study Date: 12/13/2023 11:28:00 AM Age: 68 years Tech: AREN Gender: M Referring MD: SASHA RODRIGUEZ Site: [facility] Study performed: Lower extremity segmental [...] FINDINGS: Unable to find pulse for bilateral ENVIRONMENTAL PROTECTION ECONOMIST and DPA pressures. Right toe/brachial index indicates [...] theIntersocietal Accreditation Commission (IAC/Vascular),www.intersocietal.org/vascular Report generated by [employer]ev[employer]. Final Sasha ANDERSON US * CT ANGIO [...] conjunction with the services provided by the [facility] [place] ([facility]). FINDINGS: Lower Chest: Calcified right pleural plaques. [...] CDT Results are automatically released to your Kalido (TheFriendMail) account once available, in compliance with federal [...] * (ABNORMAL) CREATININE,ISTAT (12/13/2023 9:54 AM CDT) [facility] CREATININE, POCT 0.50(L) 0.57 - 1.11 mg/dL 12/13/2023 12:34 PM CDT [facility] Comment:Caution: Patients ta camila Hydroxyurea have falsely increased iStat Creatinine results. Verify creatinine results ordering a Creatinine (70000.2) eGFR >90 >90 mL/min/1.7 3m2 12/13/2023 12:34 PM CDT [facility] Comment:As of [...] CDT Sasha ANDERSON CHEMISTRY Performing Organization Address City/[facility]/ZIP Co de Phone Number [facility] LABORATORY [address] [address], [place] * LAB TRACKING EVENT (11/20/2023 11:37 AM CDT) Other (Other) Client Collect / Unknown 11/20/2023 11:37 AM CDT 11/20/2023 9:52 PM CDT Doctor Unknown LAB BILL ONLY Performing Organization Address City/[facility]/ZIP Co de Phone Number [facility] [address] [address], [place] * PATH TISSUE EXAM (11/20/2023 11:37 AM CDT) Case Report Pathology Report ?Case: [id number] ? Authorizing Provider: ??Unknown, Doctor ?Collected: ? 11/20/2023 1137 ? Ordering Location: ? [facility] ?Received: ?11/21/2023 0637 ? Pathologist: ? Francia Aguirre MD ? Specimen: ?Right Heel, R Calcaneus ? 11/24/2023 8:28 AM CDT [facility] LABORAT[facility]-C ENTRAL LABORATORY Final Diagnosis A) BONE, RIGHT HEEL, BIOPSY: Positive for acute osteomyelitis and chondritis 11/24/2023 8:28 AM CDT [facility] ENTRAL LABORAT[facility] Clinical Information Right heel bone, assess for necrotic tissue and osteomyelitis. 11/24/2023 8:28 AM CDT [facility] LABORAT[facility] Gross Description A) Received in formalin, labeled with the patient's name and date of , is a 1.0 x 0.8 x 0.1 cm aggregate of youngblood-white bone fragments and possible soft tissue. ??The specimen is entirely submitted in 1 cassette following decalcification. KMN 11/22/2023 11/24/2023 8:28 AM CDT [facility] LABORATORY-C ENTRAL LABORATORY Microscopic Description The final diagnosis is based on microscopic examination of appropriate sections of all specimens. 11/24/2023 8:28 AM CDT [facility] LABORATORY-C ENTRAL LABORATORY Additional Information Interpreted at [facility], Central Laboratory - [address], [place] [address] 11/24/2023 8:28 AM CDT [facility] ENTRAR LABORATORY Other (Right Heel) 11/20/2023 11:37 AM CDT 11/21/2023 6:37 AM CDT Doctor Unknown PATHOLOGY/CYTOLOGY [facility] [address] [place] [address], * Lipid Panel - In AM (07/14/2008 3:00 AM AIR AND HYDRONIC BALANCING TECHNICIAN) CHOLESTEROL,TOTAL 141 110 - 199 mg/dL [facility] TRIGLYCERIDES 41 40 - 149 mg/dL [facility] HDL CHOLESTEROL 45 >40 mg/dL [facility] CHOL/HDL RATIO 3.[address] [facility] LDL CHOLESTEROL 88 <131 mg/dL [facility] PATIENT STATUS Fasting [facility] Blood specimen (specimen) BLOOD SPECIMEN / Unknown 07/14/2008 3:00 AM AIR AND HYDRONIC BALANCING TECHNICIAN 07/14/2008 1:52 AM AIR AND HYDRONIC BALANCING TECHNICIAN Phyllis Sánchez MD CHEMISTRY [facility] LABORATORY INTERNAL ZIP [address] [place] [address] from Last 3 Months or Most Recently [...] 12:49 PM 12/25/2015 1:24 PM Care Teams Gore Cutter Relationship Specialty Start Date End Date Alex Mata MD [address] [place] [address] PCP - General Family Practice 02/04/20 Ana Mayers [address] [place] [address] Nurse Practitioner 03/02/11 Jak Keys NP [facility] [address], [place] [address] Nurse Practitioner Nurse Practitioner - Adult 10/30/23
== END 2024-01-15 10:57 | disposition home or self-care (01) ==
LOC: WOUND 10:56
PROVIDERS: PCP Family Medicine; Visit Provider Nurse Practitioner Family
DX: M86.171 Other acute osteomyelitis, right ankle and foot (principal); L89.614 Pressure ulcer of right heel, stage 4; L89.894 Pressure ulcer of other site, stage 4; L89.314 Pressure ulcer of right buttock, stage 4; L89.514 Pressure ulcer of right ankle, stage 4; L89.893 Pressure ulcer of other site, stage 3; Z99.3 Dependence on wheelchair
CPT/HCPCS: 11043; 96372; 97597; 97598; 97602; J0696

== ENCOUNTER 2024-01-22 14:36 | Outpatient (CLI) | payer OTHER, SELFPAY ==
--- OUTSIDE RECORDS SUMMARY | 2024-01-22 14:44 | XMS_ITS | Clinical Summary ---
Author Organization [employer] [facility] Address [place], [place] [address] Care Team Providers Care Roll Capper Name Role Phone Goyoluis aAna Unavailable Alex Mata MD Primary Care Provider + Jak Keys PRINTER HELPER Unavailable [phone] Allergies Active Allergy Reactions Criticality Noted Date Comments Blood-Group Specific Substance Other - Describe In Comment Field 04/19/2021 Patient has Sims a (Fya) antibody. Blood products may be delayed. Draw patient 24 hours prior to transfusion. For PlasmaSi testing, draw one red top and two [...] 325 mg by mouth once daily. Active aspirin chewable 81 mg chewable tabletIndications:PAD (peripheral artery disease) (HC) Chew 1 Tablet (81 mg) by mouth once daily with a meal. 01/17/2024 Active atorvastatin (LIPITOR) 20 mg tabletIndications:PAD (peripheral artery disease) (HC) Take 1 Tablet (20 mg) by mouth once daily. 30 Tablet 01/17/2024 Active Active Problems Problem Noted Date Diagnosed Date Asymmetrical sensorineural hearing loss 11/30/19 Anemia, chronic disease 11/17/2023 Bilateral cataracts 11/17/2023 [...] Overview: 09/20/23 bilateral lower extremity arterial ultrasound ([facility]) S/P flap graft 03/06/2020 Neurogenic orthostatic [...] surgery 10/30/2023 10/30/2023 History of appendectomy 10/30/2023 04/0 02/2024 Acute osteomyelitis of right ankle or foot 10/30/2023 10/30/2023 Leg wound, right 12/24/2019 02/25/2020 Open wound of left heel 12/24/2019 08/0 10/2019 Pressure injury of sacral region, stage 4 [...] Encounters Date Type Department Care Team Description 01/19/2024 Telephone [facility] [address] [place] [address] Maria Guadalupe Leong MD Surgery Scheduled 01/17/2024 8:00 AM CDT Office Visit [facility] at [address] [address] Maria Guadalupe Leong MD Consult (blood flow in the right leg, wounds wont heal, stints in hip 3 yrs ago. blood flow is about 1/2 now) 01/17/2024 Travel 01/02/2024 Travel 12/22/2023 Telephone [facility] [address] [place] [address] Paul Bishop MD Referral 12/13/2023 11:23 AM CDT - 12/13/2023 11:59 PM CDT Hospital Encounter [facility] [address] [place] [address] Sasha Rodriguez PA PAD (peripheral artery disease) (HC) 12/13/2023 Travel 11/28/2023 12:30 PM CDT Office Visit [facility] [address] [place] [address] Clarissa Murray AuD Hearing Aid (consult) 11/27/2023 1:00 PM CDT Office Visit [facility] [address] [place] [address] Angy Israel AuD Hearing Problem (Hearing test) 11/27/2023 Travel 11/23/2023 Travel 11/20/2023 Lab Requisition [facility] CENTRAL LAB [phone] Unknown, Doctor 11/17/2023 11:15 AM CDT Office Visit [facility] [address] [place] [address] Jak Keys NP Wound Check 11/17/2023 11:00 AM CDT Office Visit [facility] [address], [place] [address] 11/17/2023 Orders Only [facility] [address] [place] [address] Sasha Rodriguez PA <No scans attached> 11/17/2023 Travel 11/09/2023 9:45 AM CDT Office Visit [facility] [address], [place] [address] Consult 11/09/2023 Travel 11/01/2023 Telephone [facility] [address] [facility] [address] [place] [address] Cardiology, Anw Follow Up 10/31/2023 Transcribe Orders [facility] [address] [place] [address] Alex Mata MD 10/30/2023 9:15 AM CDT Office Visit [facility] [address] [place] [address] Jak Keys, HILARIO Consult 10/30/2023 Travel 10/26/[address] [facility] [address] [place] [address] Ramya Savage, RN Device Check from Last [...] Sign Reading Time Taken Comments Blood Pressure 94/56 01/17/2024 8:12 AM CDT Pulse 97 01/17/2024 8:12 AM CDT Temperature 36.4 ??C (97.6 ??F) 11/17/2023 1 1:21 AM CDT Respiratory Rate 16 11/17/2023 11:2 1 AM CDT Oxygen Saturation 98% 01/17/2024 8:12 AM CDT Inhaled Oxygen Concentration - - Weight 60.7 kg (133 lb 14.4 oz) 024 12:13 PM SOLE SCRAPER Height 182.9 cm (6') 09/29/2023 12:13 PM SOLE SCRAPER Body Mass Index 18.16 09/29/2023 12:13 PM SOLE SCRAPER Plan of Treatment Upcoming Encounters Date Type Department Care Team (Late st Contact Info) Description 02/01/2024 8:15 AM CDT Office Visit [address] [address] Raquel Multani MD [address] [facility] [address] [address] 02/02/2024 12:30 PM CDT Appointment [facility] [address] [place] [address] Maria Guadalupe Leong MD [address] [place] [address] 03/12/2024 12:30 PM CDT Appointment [facility] [address] [place] [address] 03/12/2024 2:00 PM CDT Office Visit [facility] [address] [place] [address] Maria Guadalupe Leong MD [address], [place] [address] 05/03/[address] [facility] [phone] Health Maintenance Due Date Last Done Comments [...] 12/26/2008, 09/01/2006 Medical Devices Implanted Type Area Pharmacology Teacher Device Identifier Shelf Expiration Date Model / Serial / Lot Standard Pacemaker-12/21 Implanted:11/23 by Judson Jenkins MD (Quantity not on file) Standard Pacemaker Medtronic ADDRL1 / [id number] / Procedures Procedure Name Priority Date/Time Associated [...] LIPID PANEL Early AM 07/14/2008 3:00 AM SOLE SCRAPER from Last 3 Months or Most Recently Relevant to Health Maintenance Results * US ANKLE BRACHIAL INDEX BILATERAL (12/13/2023 12:19 PM CDT) Anatomical Region Laterality Modality ANKLES, ANKLE L, ANKLE R Ultraso und 12/13/2023 11:2 8 AM CDT Narrative 12/13/2023 2:27 PM CDT VASCULAR ULTRASOUND REPORT MICHEAL RENE Accession#: ?? [id number] : ?1955 ??Study Date: ?? 12/13/2023 11:28:00 AM Age: ?68 years ?? Tech: ? MAD Gender: M ?Referring MD: SASHA RODRIGUEZ Site: [facility] Study performed: ?Lower extremity segmental pressures, resting [...] FINDINGS: Unable to find pulse for bilateral PIER RUNNER and DPA pressures. Right toe/brachial index indicates [...] Accreditation Commission (IAC/Vascular), www.intersocietal.org/vascular Report generated by [employer]. ??Final ?? Procedure Note Judah Rodriguez MD - 12/13/2023 VASCULAR ULTRASOUND REPORT MICHEAL RENE : 1955 Study Date: 12/13/2023 11:28:00 AM Age: 68 years Tech: [facility] Gender: M Referring MD: SASHA RODRIGUEZ Site: [facility] Study performed: Lower extremity segmental [...] FINDINGS: Unable to find pulse for bilateral PIER RUNNER and DPA pressures. Right toe/brachial index indicates [...] theIntersocietal Accreditation Commission (IAC/Vascular),www.intersocietal.org/vascular Report generated by [employer]. Final Sasha ANDERSON US * CT ANGIO [...] Patent. Posterior Tibial: Patent. Abhinav Burciaga MD JRL/samira For Patients: As a result of the [...] conjunction with the services provided by the [facility]. [facility] ([facility]). FINDINGS: Lower Chest: Calcified right pleural plaques. [...] CDT Results are automatically released to your PlasmaSi ([employer]) account once available, in compliance with federal [...] - 1.11 mg/dL 12/13/2023 12:34 PM CDT [facility]ORAT[facility] TRAL LABORATORY Comment:Caution: Patients ta camila Hydroxyurea have falsely increased iStat Creatinine results. Verify creatinine results ordering a Creatinine (08537.2) eGFR >90 >90 mL/min/1.7 3m2 12/13/2023 12:34 PM CDT [facility] TRAL LABORATORY Comment:As of 2021, eG FR is calculated by the CKD-EPI creatinine equation without race adjustment. eGFR can be influenced by muscle mass, exercise, and diet. The reported eGFR is an estimation only and is only applicable if the renal function is stable. Blood BLOOD SPECIMEN / Unknown 12/13/2023 9:54 AM CDT 12/13/2023 12:34 PM CDT Sasha Rodriguez PA CHEMISTRY Performing Organization Address [facility] de Phone Number [facility]OR[facility]-CENTRAL LABORATORY [address] [place] [address], [place] * LAB TRACKING EVENT (11/20/2023 11:37 AM CDT) Other (Other) Client Collect / Unknown 11/20/2023 11:37 AM CDT 11/20/2023 9:52 PM CDT Doctor Unknown LAB BILL ONLY Performing Organization Address [facility] Co de Phone Number [facility]-CENTRAL LABORATORY [address] [place] [address], * PATH TISSUE EXAM (11/20/2023 11:37 AM CDT) Case Report Pathology Report ?Case: [id number] ? Authorizing Provider: ??Unknown, Doctor ?Collected: ? 11/20/2023 1137 ? Ordering Location: ? [facility] CENTRAL LAB ?Received: ?11/21/2023 0637 ? Pathologist: ? Francia Aguirre MD ? Specimen: ?Right Heel, R Calcaneus ? 11/24/2023 8:28 AM [facility] ENTRAL LABORATORY Final Diagnosis A) BONE, RIGHT HEEL, BIOPSY: Positive for acute osteomyelitis and chondritis 11/24/2023 8:28 AM [facility] LABORATORY Clinical Information Right heel bone, assess for necrotic tissue and osteomyelitis. 11/24/2023 8:28 AM [facility] ENTRMO LABORATORY Gross Description A) Received in formalin, labeled with the patient's name and date of , is a 1.0 x 0.8 x 0.1 cm aggregate of youngblood-white bone fragments and possible soft tissue. ??The specimen is entirely submitted in 1 cassette following decalcification. KMN 11/22/2023 11/24/2023 8:28 AM [facility] LABORATORY Microscopic Description The final diagnosis is based on microscopic examination of appropriate sections of all specimens. 11/24/2023 8:28 AM [facility] LABORAT[facility] Additional Information Interpreted at [facility], Central Laboratory - [address] [facility] [address], [place] [address] 11/24/2023 8:28 AM [facility] LABORAT[facility] Other (Right Heel) 11/20/2023 11:37 AM CDT 11/21/2023 6:37 AM CDT Doctor Unknown PATHOLOGY/CYTOLOGY [facility] LABORATORY-CENTRAL LABORATORY [address] [place] [address], * Lipid Panel - In AM (07/14/2008 3:00 AM SOLE SCRAPER) CHOLESTEROL,TOTAL 141 110 - 199 mg/dL [facility] TRIGLYCERIDES 41 40 - 149 mg/dL [facility] HDL CHOLESTEROL 45 >40 mg/dL [facility] CHOL/HDL RATIO 3.13 <4.51 [facility] LDL CHOLESTEROL 88 <131 mg/dL [facility] PATIENT STATUS Fasting [facility] Blood specimen (specimen) BLOOD SPECIMEN / Unknown 07/14/2008 3:00 AM SOLE SCRAPER 07/14/2008 1:52 AM SOLE SCRAPER Phyllis Sánchez MD CHEMISTRY Performing Organization Address City/[facility]/ZIP Co de Phone Number [facility] INTERNAL ZIP [address] [place] [phone] from Last 3 Months or Most Recently [...] 12 months since positive culture): [place] [facility], receiving hemodialysis, has chronic open wounds/skin [...] 12:49 PM 12/25/2015 1:24 PM Care Teams Roll Capper Relationship Specialty Start Date End Date Alex Mata MD [address] [place] [address] PCP - General Family Practice 02/04/20 Ana Mayers [address] [place] [address] Nurse Practitioner 03/02/11 Jak Keys NP [address], [place] [address] Nurse Practitioner Nurse Practitioner - Adult 10/30/23
== END 2024-01-22 14:37 | disposition home or self-care (01) ==
LOC: WOUND 14:36
PROVIDERS: PCP Family Medicine; Visit Provider Nurse Practitioner Family
DX: M86.171 Other acute osteomyelitis, right ankle and foot (principal); L89.314 Pressure ulcer of right buttock, stage 4; L89.614 Pressure ulcer of right heel, stage 4; L89.894 Pressure ulcer of other site, stage 4; L89.893 Pressure ulcer of other site, stage 3; L89.514 Pressure ulcer of right ankle, stage 4; Z99.3 Dependence on wheelchair
CPT/HCPCS: 11042; 11043; 97597

== ENCOUNTER 2024-01-23 11:26 | Outpatient (CLI) | payer OTHER, SELFPAY ==
--- OUTSIDE RECORDS SUMMARY | 2024-01-23 11:28 | XMS_ITS | Clinical Summary ---
Author Organization [facility] Address [place], [place] [address] Care Team Providers Care Gym Teacher Name Role Phone Goyoluis aAna Unavailable Alex Mata MD Primary Care Provider + Jak Keys SALESPERSON HOSIERY Unavailable [phone] Allergies Active Allergy Reactions Criticality Noted Date Comments Blood-Group Specific Substance Other - Describe In Comment Field 04/19/2021 Patient has Sims a (Fya) antibody. Blood products may be delayed. Draw patient 24 hours prior to transfusion. For [employer] testing, draw one red top and two [...] Overview: 09/20/23 bilateral lower extremity arterial ultrasound ([facility]) S/P flap graft 03/06/2020 Neurogenic orthostatic hypotension [...] Type Department Care Team Description 01/19/2024 Telephone [facility] [address] [place] [address] Maria Guadalupe Leong MD Surgery Scheduled 01/17/2024 8:00 AM CDT Office Visit [facility] at [address] [address] Maria Guadalupe Leong MD Consult (blood flow in the right leg, wounds wont heal, stints in hip 3 yrs ago. blood flow is about 1/2 now) 01/17/2024 Travel 01/02/2024 Travel 12/22/2023 Telephone [facility] [address] [place] [address] Paul Bishop MD Referral 12/13/2023 11:23 AM CDT - 12/13/2023 11:59 PM CDT Hospital Encounter [facility] [address] [place] [address] Sasha Rodriguez PA PAD (peripheral artery disease) (HC) 12/13/2023 Travel 11/28/2023 12:30 PM CDT Office Visit [facility] [address] [place] [address] Clarissa Murray AuD Hearing Aid (consult) 11/27/2023 1:00 PM CDT Office Visit [facility] [address] [place] [address] Angy Israel AuD Hearing Problem (Hearing test) 11/27/2023 Travel 11/23/2023 Travel 11/20/2023 Lab Requisition [facility] [phone] Unknown, Doctor 11/17/2023 11:15 AM CDT Office Visit [facility] [address] [place] [address] Jak Keys NP Wound Check 11/17/2023 11:00 AM CDT Office Visit [facility] [address] [address] 11/17/2023 Orders Only [facility] [address] [place] [address] Sasha Rodriguez PA <No scans attached> 11/17/2023 Travel 11/09/2023 9:45 AM CDT Office Visit [facility] [address] [address] Consult 11/09/2023 Travel 11/01/2023 Telephone [facility] [address] [facility] [address] [place] [address] Cardiology, Anw Follow Up 10/31/2023 Transcribe Orders [facility] [address] [place] [address] Alex Mata MD 10/30/2023 9:15 AM CDT Office Visit [facility] [address] [place] [address] Jak Keys, HILARIO Consult 10/30/2023 Travel 10/26/2023 Telephone [facility] [address] [place] [address] Ramya Savage, RN Device Check [...] (133 lb 14.4 oz) 024 12:13 PM ELECTRICAL PROSPECTOR Height 182.9 cm (6') 09/29/2023 12:13 PM ELECTRICAL PROSPECTOR Body Mass Index 18.16 09/29/2023 12:13 PM ELECTRICAL PROSPECTOR Plan of Treatment Upcoming Encounters Date Type Department Care Team (Late st Contact Info) Description 02/01/2024 8:15 AM CDT Office Visit [address] [address] Raquel Multani MD [address] [facility] [address] [address] 02/02/2024 12:30 PM CDT Appointment [facility] [address] [place] [address] Maria Guadalupe Leong MD [address] [place] [address] 03/12/2024 12:30 PM CDT Appointment [facility] [address] [place] [address] 03/12/2024 2:00 PM CDT Office Visit [facility] [address] [place] [address] Maria Guadalupe Leong MD [address] [address] 05/03/2024 Cardiac Device Check [facility] [phone] Health Maintenance Due Date Last Done Comments [...] 12/26/2008, 09/01/2006 Medical Devices Implanted Type Area Smoking Pipe Liner Device Identifier Shelf Expiration Date Model / Serial / Lot Standard Pacemaker-12/21 Implanted:11/23 by Judson Jenkins MD (Quantity not on file) Standard Pacemaker Medtronic [id number] / [id number] / Procedures Procedure Name Priority Date/Time Associated [...] LIPID PANEL Early AM 07/14/2008 3:00 AM ELECTRICAL PROSPECTOR from Last 3 Months or Most Recently Relevant to Health Maintenance Results * US ANKLE BRACHIAL INDEX BILATERAL (12/13/2023 12:19 PM CDT) Anatomical Region Laterality Modality ANKLES, ANKLE L, ANKLE R Ultraso und 12/13/2023 11:2 8 AM CDT Narrative 12/13/2023 2:27 PM CDT VASCULAR ULTRASOUND REPORT MICHEAL RENE Accession#: ?? [id number] : ?1955 ??Study Date: ?? 12/13/2023 11:28:00 AM Age: ?68 years ?? Tech: ? MAD Gender: M ?Referring MD: SASHA RODRIGUEZ Site: [facility] Study performed: ?Lower extremity segmental pressures, [...] FINDINGS: Unable to find pulse for bilateral MINIATURE SET DESIGNER and DPA pressures. Right toe/brachial index indicates [...] Accreditation Commission (IAC/Vascular), www.intersocietal.org/vascular Report generated by [employer]. ??Final ?? Procedure Note Judah Rodriguez MD - 12/13/2023 VASCULAR ULTRASOUND REPORT MICHEAL RENE : 1955 Study Date: 12/13/2023 11:28:00 AM Age: 68 years Tech: [facility] Gender: M Referring MD: SASHA RODRIGUEZ Site: [facility] Study performed: Lower extremity [...] FINDINGS: Unable to find pulse for bilateral MINIATURE SET DESIGNER and DPA pressures. Right toe/brachial index indicates [...] theIntersocietal Accreditation Commission (IAC/Vascular),www.[email or web address].org/vascular Report generated by [employer]. Final Sasha ANDERSON US * CT ANGIO [...] Patent. Posterior Tibial: Patent. Abhinav Burciaga MD JRL/smaira For Patients: As a result of the [...] conjunction with the services provided by the [facility]. [facility] ([facility]). FINDINGS: Lower Chest: Calcified right pleural [...] CDT Results are automatically released to your [employer] (Sounder) account once available, in compliance with federal [...] - 1.11 mg/dL 12/13/2023 12:34 PM CDT [facility] Comment:Caution: Patients ta camila Hydroxyurea have falsely increased iStat Creatinine results. Verify creatinine results ordering a Creatinine (40072.2) eGFR >90 >90 mL/min/1.7 3m2 12/13/2023 12:34 PM CDT [facility] Comment:As of 2021, eG [...] Sasha Rodriguez PA CHEMISTRY Performing Organization Address [facility] de Phone Number [facility] [address] [place] [address], [place] * LAB TRACKING EVENT (11/20/2023 11:37 AM CDT) Other (Other) Client Collect / Unknown 11/20/2023 11:37 AM CDT 11/20/2023 9:52 PM CDT Doctor Unknown LAB BILL ONLY Performing Organization Address [facility] Co de Phone Number [facility] [address] [place] [address], * PATH TISSUE EXAM (11/20/2023 11:37 AM CDT) Case Report Pathology Report ?Case: [id number] ? Authorizing Provider: ??Unknown, Doctor ?Collected: ? 11/20/2023 1137 ? Ordering Location: ? [facility] ?Received: ?11/21/2023 0637 ? Pathologist: ? Francia Aguirre MD ? Specimen: ?Right Heel, R Calcaneus ? 11/24/2023 8:28 AM [facility] Final Diagnosis A) BONE, RIGHT HEEL, BIOPSY: Positive for acute osteomyelitis and chondritis 11/24/2023 8:28 AM [facility] Clinical Information Right heel bone, assess for necrotic tissue and osteomyelitis. 11/24/2023 8:28 AM [facility] Gross Description A) Received in formalin, [...] MEDICAL CENTER [facility] Additional Information Interpreted at [facility] - [address] [facility] [address], [place] [address] 11/24/2023 8:28 AM [facility] Other (Right Heel) 11/20/2023 11:37 AM CDT 11/21/2023 6:37 AM CDT Doctor Unknown PATHOLOGY/CYTOLOGY [facility] [address] [place] [id number], * Lipid Panel - In AM (07/14/2008 3:00 AM ELECTRICAL PROSPECTOR) CHOLESTEROL,TOTAL 141 110 - 199 mg/dL [facility] TRIGLYCERIDES 41 40 - 149 mg/dL [facility] HDL CHOLESTEROL 45 >40 mg/dL [facility] CHOL/HDL RATIO 3.13 <4.51 [facility] LDL CHOLESTEROL 88 <131 mg/dL [facility] PATIENT STATUS Fasting [facility] Blood specimen (specimen) BLOOD SPECIMEN / Unknown 07/14/2008 3:00 AM ELECTRICAL PROSPECTOR 07/14/2008 1:52 AM ELECTRICAL PROSPECTOR Phyllis Sánchez MD CHEMISTRY Performing Organization Address City/[facility]/ZIP Co de Phone Number [facility] INTERNAL ZIP [id number] [place] [id number] from Last 3 Months or Most Recently [...] 12 months since positive culture): resides in acute/residential care, receiving hemodialysis, has chronic open wounds/skin [...] 12:49 PM 12/25/2015 1:24 PM Care Teams Gym Teacher Relationship Specialty Start Date End Date Alex Mata MD [address] [place] [address] PCP - General Family Practice 02/04/20 Ana Mayers [address] [place] [address] Nurse Practitioner 03/02/11 Jak Keys NP [address] [address] Nurse Practitioner Nurse Practitioner - Adult 10/30/23
== END 2024-01-23 11:27 | disposition home or self-care (01) ==
LOC: FBOREF 11:26
PROVIDERS: PCP Family Medicine; Visit Provider Family Medicine
DX: Z13.228 Encounter for screening for other metabolic disorders (principal); Z13.0 Encounter for screening for diseases of the blood and blood-forming organs and certain disorders involving the immune mechanism
CPT/HCPCS: 80048; 85025

== ENCOUNTER 2024-01-29 10:55 | Outpatient (CLI) | payer OTHER, SELFPAY ==
--- OUTSIDE RECORDS SUMMARY | 2024-01-29 10:56 | XMS_ITS | Continuity of Care Document ---
Author Organization [facility] Address [address] [place] [address] Care Team Providers Care Spent Grain Dryer Name Role Phone CHETNA MERAZ Primary Care Provider RAHUL OCONNOR Contact Manager Assessment Encounter Date Assessment Date Assessment LastModified [...] Orders methenamine hippurate 1 gram tablet 2023 [id number], [address] [place], [place], [phone], 23:05:37 oxybutynin chloride ER 15 mg tablet,exte nded release 24 hr 2023 [id number], [address] [place], [place], [phone], 23:04:50 Patient TargetsNo targets recorded. Patient InstructionsNo instructions recorded. Reason for Referral None Reported. Procedures Surgical History Date Name Laterality Status Provider Name and Address Organization Details Recorded Time COMPLEX VISIT completed Jono Pagan MD [address], [place], [address], [facility] 11/01/2023 08:09:54 excision of pressure injury completed Jono Pagan MD [address], [place], [address], [facility] 09/28/2022 11:00:08 maintenance procedure for cardiac pacemaker system completed Veronika Kotharijacqueline [employer] 11/01/2023 11:05:10 Imaging Results None recorded. Procedure Notes None recorded. Medical Equipment None Reported. Allergies Allergen ID Allergen Name Allergen Category Reaction Reaction Severity Criticality Documentation Date Start Date Code Code System Note Provider Name and Address Organization Details Recorded Time 050169 Medicinal product containin g cephalosp pao and acting as antibacte rial agent (product) medicatio n Not available Not available Not available 09/27/2021 76415 9009 SNOMED Nasreen Salas [employer] [facility] 2 12:43:20 269284 shellfish derived food,medi cation Not available Not available Not available 11/01/2023 Veronika aguila [employer] 4 11:03:08 Medications Name Sig Start Date [...] Updated DateTime 11/01/2023 182.88 cm 18.7 kg/m2 38536.75 g Veronika Shy [facility] 11/01/2023 11:02:57 Social History Question Answer Notes LastModified by Organizat ion Details LastModified Time Tobacco Smoking Status [facility] 14:55:09 What Is Your [...] 0 Information no t available 11/01/2023 Sex: Unknown Functional Status None recorded. Mental Status None [...] Recorded Time IPV 11/19/2004 completed Mindy hwang [facility] 04/28/2023 11:39:35 COVID-19, mRNA, LNP-S, PF, 30 mcg/0.3 mL dose 08/20/2020 completed Mindy hwang [facility] 04/28/2023 11:39:35 COVID-19, mRNA, LNP-S, PF, 30 mcg/0.3 mL dose 09/14/2020 [facility] 11:39:35 Pneumococcal conjugate PCV20, polysaccharide PAQ252 conjugate, adjuvant, PF 12/01/2022 [facility]2023 11:39:35 influenza, unspecified formulation 05/24/2006 completed Mindy hwang [facility] 04/28/2023 11:39:35 Tdap 09/01/2006 [facility] 04/28/2023 11:39:35 Tdap 12/26/2008 [facility] 04/28/2023 11:39:35 zoster live 01/29/2015 [facility] 04/28/2023 11:39:35 Influenza, split virus, trivalent, PF 03/25/2011 [facility] 04/[facility]/2023 11:39:35 Influenza, split virus, trivalent, PF 05/24/2012 [facility] 04/28/2023 11:39:35 Td (adult), 2 Lf tetanus toxoid, preservative free, adsorbed 03/21/1997 [facility] 04/[facility]2023 11:39:35 Hep B, adult 09/01/2006 [facility] 11:39:35 Hep B, adult 11/19/2004 completed Mindy Malone eri [facility] 04/28/2023 11:39:35 Hep B, adult 03/30/2007 completed Mindy Solitarioalice eri [facility] 04/28/2023 11:39:35 Hep A, adult 09/30/2002 completed Mindy Solitarioalice eri [facility] 04/28/2023 11:39:35 Hep A, adult 11/19/2004 completed Mindy Solitarioalice eri [facility] 04/28/2023 11:39:35 Hep A, adult 05/01/2003 completed Mindy Solitarioalice eri, [facility] 04/28/2023 11:39:35 typhoid, ViCPs 09/01/2006 completed Mindy Solitarioalice eri [facility] 04/28/2023 11:39:35 typhoid, ViCPs 09/30/2002 completed Mindy Solitarioalice eri [facility] 04/28/2023 11:39:35 Past Encounters Encounter ID Performer Location Encounter Start Date Encounter Closed Date Diagnosis/Indication Diagnosis SNOMED-CT Code [id number] Jono Pagan MD [facility] [address] [place] [address] 11/01/2023 10:52:02 11/02/2023 14:01:41 Neurogenic urinary bladder 341233852 Spinal cord injury 63216 004 Spasm of u rinary bladder 053101623 Recurrent urinary tract infection 300123868 Health Concerns Section Related Observation LastModified by Organization Detai ls LastModified Time None Recorded Concern Status LastModified by Organization Details LastModified Time None Recorded Payers Encounter Date Sequence Insurance Name Policy Number Policy Quinones Covered Member ID Quinones Member ID Guarantor Name 11/01/2023 [facility] [id number] Levar Rene Notes Date Note Type Note [...] catheter when traveling. Jono Pagan MD [address], [place], [address], [place] [facility] 11/01/2023 23:05:58
--- OUTSIDE RECORDS SUMMARY | 2024-01-29 10:56 | XMS_ITS | Clinical Summary ---
Author Organization [employer] [facility] Address [place], [place] [address] Care Team Providers Care Package Checker Name Role Phone Goyoluis aAna Unavailable Alex Mata MD Primary Care Provider + Jak Keys CULLET WASHER Unavailable [phone] Allergies Active Allergy Reactions Criticality Noted Date Comments Blood-Group Specific Substance Other - Describe In Comment Field 04/19/2021 Patient has Sims a (Fya) antibody. Blood products may be delayed. Draw patient 24 hours prior to transfusion. For [employer] testing, draw one red top and two [...] Overview: 09/20/23 bilateral lower extremity arterial ultrasound ([facility]) S/P flap graft 03/06/2020 Neurogenic [...] Type Department Care Team Description 01/19/2024 Telephone [facility] [place] [facility] [place] [address] [place] [address] Maria Guadalupe Leong MD Surgery Scheduled 01/17/2024 8:00 AM CDT Office Visit [facility] [place] at [address] [address] Maria Guadalupe Leong MD Consult (blood flow in the right leg, wounds wont heal, stints in hip 3 yrs ago. blood flow is about 1/2 now) 01/17/2024 Travel 01/02/2024 Travel 12/22/2023 Telephone [facility] [address] [place] [address] Paul Bishop MD Referral 12/13/2023 11:23 AM CDT - 12/13/2023 11:59 PM CDT Hospital Encounter [facility] [address] [place] [address] Sasha Rodriguez PA PAD (peripheral artery disease) (HC) 12/13/2023 Travel 11/28/2023 12:30 PM CDT Office Visit [facility] [address] [place] [address] Clarissa Murray AuD Hearing Aid (consult) 11/27/2023 1:00 PM CDT Office Visit [facility] [address] [place] [address] Angy Israel AuD Hearing Problem (Hearing test) 11/27/2023 Travel 11/23/2023 Travel 11/20/2023 Lab Requisition [facility] [phone] Unknown, Doctor 11/17/2023 11:15 AM CDT Office Visit [facility] [address] [place] [address] Jak Keys NP Wound Check 11/17/2023 11:00 AM CDT Office Visit [facility] [address], [place] [address] 11/17/2023 Orders Only [facility] [address] [place] [address] Sasha Rodriguez PA <No scans attached> 11/17/2023 Travel 11/09/2023 9:45 AM CDT Office Visit [facility] [address], [place] [address] Consult 11/09/2023 Travel 11/01/2023 Telephone [facility] [address] [facility] [address] [place] [address] Cardiology, Anw Follow Up 10/31/2023 Transcribe Orders [facility] [address] [place] [address] Alex Mata MD 10/30/2023 9:15 AM CDT Office Visit [facility] [address] [place] [address] Jak Keys, CULLET WASHER Consult 10/30/2023 Travel from Last 3 Months Immunizations Name [...] (133 lb 14.4 oz) 024 12:13 PM OPERATIONS PROJECT MANAGER Height 182.9 cm (6') 09/29/2023 12:13 PM OPERATIONS PROJECT MANAGER Body Mass Index 18.16 09/29/2023 12:13 PM OPERATIONS PROJECT MANAGER Plan of Treatment Upcoming Encounters Date Type Department Care Team (Late st Contact Info) Description 02/01/2024 8:15 AM CDT Office Visit [address] [address] Raquel Multani MD [address] [facility] 100 [place] [address] 02/02/2024 12:30 PM CDT Appointment [facility] [address] [place] [address] Maria Guadalupe Leong MD [address] [place] [address] 03/12/2024 12:30 PM CDT Appointment [facility] [address] [place] [address] 03/12/2024 2:00 PM CDT Office Visit [facility] [address] [place] [address] Maria Guadalupe Leong MD [address], [place] [address] 05/03/2024 Cardiac Device Check [facility] [phone] Health Maintenance Due Date Last Done Comments [...] 12/26/2008, 09/01/2006 Medical Devices Implanted Type Area Research Clerk Device Identifier Shelf Expiration Date Model / Serial / Lot Standard Pacemaker-12/21 Implanted:11/23 by Judson Jenkins MD (Quantity not on file) Standard Pacemaker Medtronic [id number] / [id number] / Procedures Procedure Name Priority Date/Time Associated [...] LIPID PANEL Early AM 07/14/2008 3:00 AM OPERATIONS PROJECT MANAGER from Last 3 Months or Most Recently Relevant to Health Maintenance Results * US ANKLE BRACHIAL INDEX BILATERAL (12/13/2023 12:19 PM CDT) Anatomical Region Laterality Modality ANKLES, ANKLE L, ANKLE R Ultraso und 12/13/2023 11:2 8 AM CDT Narrative 12/13/2023 2:27 PM CDT VASCULAR ULTRASOUND REPORT MICHEAL RENE Accession#: ?? [id number] : ?1955 ??Study Date: ?? 12/13/2023 11:28:00 AM Age: ?68 years ?? Tech: ? MAD Gender: M ?Referring MD: SASHA RODRIGUEZ Site: [facility] Study performed: ?Lower extremity [...] FINDINGS: Unable to find pulse for bilateral AERONAUTICAL DRAFTER and DPA pressures. Right toe/brachial index indicates [...] Accreditation Commission (IAC/Vascular), www.intersocietal.org/vascular Report generated by [employer]. ??Final ?? Procedure Note Judah Rodriguez MD - 12/13/2023 VASCULAR ULTRASOUND REPORT MICHEAL RENE : 1955 Study Date: 12/13/2023 11:28:00 AM Age: 68 years Tech: [facility] Gender: M Referring MD: SASHA RODRIGUEZ Site: [facility] V[facility] Study performed: Lower extremity [...] FINDINGS: Unable to find pulse for bilateral AERONAUTICAL DRAFTER and DPA pressures. Right toe/brachial index indicates [...] theIntersocietal Accreditation Commission (IAC/Vascular),www.intersocietal.org/vascular Report generated by Netpulse. Final Sasha ANDERSON * CT ANGIO ABD PELVIS LOWER EXTREM [...] conjunction with the services provided by the [facility] [place] ([facility]). FINDINGS: Lower Chest: Calcified right [...] CDT Results are automatically released to your [employer] ([employer]) account once available, in compliance with federal [...] - 1.11 mg/dL 12/13/2023 12:34 PM CDT [facility] Comment:Caution: Patients ta camila Hydroxyurea have falsely increased iStat Creatinine results. Verify creatinine results ordering a Creatinine (13344.2) eGFR >90 >90 mL/min/1.7 3m2 12/13/2023 12:34 PM CDT [facility] Comment:As of 2021, eG [...] Sasha Rodriguez PA CHEMISTRY Performing Organization Address [facility] de Phone Number [facility] [employer] [facility] [address] [place] [address], * LAB TRACKING EVENT (11/20/2023 11:37 AM CDT) Other (Other) Client Collect / Unknown 11/20/2023 11:37 AM CDT 11/20/2023 9:52 PM CDT Doctor Unknown LAB BILL ONLY Performing Organization Address [facility] de Phone Number [facility] [address] [place] [address], * PATH TISSUE EXAM (11/20/2023 11:37 AM CDT) Case Report Pathology Report ?Case: [id number] ? Authorizing Provider: ??Unknown, Doctor ?Collected: ? 11/20/2023 1137 ? Ordering Location: ? [facility] ?Received: ?11/21/2023 0637 ? Pathologist: ? Francia Aguirre MD ? Specimen: ?Right Heel, R Calcaneus ? 11/24/2023 8:28 AM CDT [facility] ENTRAL LABORAT[facility] Final Diagnosis A) BONE, RIGHT HEEL, BIOPSY: Positive for acute osteomyelitis and chondritis 11/24/2023 8:[address] [facility] Clinical Information Right heel bone, assess for necrotic tissue and osteomyelitis. 11/24/2023 8:[address] [facility] Gross Description A) Received in formalin, labeled with the patient's name and date of , is a 1.0 x 0.8 x 0.1 cm aggregate of youngblood-white bone fragments and possible soft tissue. ??The specimen is entirely submitted in 1 cassette following decalcification. FELICITY 11/22/2023 11/24/2023 8:28 AM CDT [facility] [employer] [facility] ENTRAL LABORATORY Microscopic Description The final diagnosis is based on microscopic examination of appropriate sections of all specimens. 11/24/2023 8:[address] [facility] Additional Information Interpreted at [facility] Central Laboratory - [address], [place] [address] 11/24/2023 8:28 AM T [facility] [employer] [facility] ENTRAL LABORATORY Other (Right Heel) 11/20/2023 11:37 AM CDT 11/21/2023 6:37 AM CDT Doctor Unknown PATHOLOGY/CYTOLOGY [facility]-CENTRAL LABORATORY [address] [address], * Lipid Panel - In AM (07/14/2008 3:00 AM OPERATIONS PROJECT MANAGER) CHOLESTEROL,TOTAL 141 110 - 199 mg/dL [facility] TRIGLYCERIDES 41 40 - 149 mg/dL [facility] HDL CHOLESTEROL 45 >40 mg/dL 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
--- OUTSIDE RECORDS SUMMARY | 2024-01-29 10:56 | XMS_ITS | Data Portability ---
Author Organization [facility], [facility] Address [address] [facility] [address] [place] [address] Care Team Providers [employer] Vice Principal Name Role Phone CHETNA MERAZ Primary Care Provider [phone] RAHUL OCONNOR Oracle Database Administrator [phone] Assessment Encounter Date Assessment Date Assessment LastModified by Organization Details LastModified Time 09/27/2021 09/27/2021 65 yoM with history of [...] None recorded. Lab culture, urine 2020 021 [facility], [address], [place], [address], 07:39:35 urinalysis, dipstick 2020 021 marie Not available 10/20/202 1 11:34:22 Referral None recorded. Procedures None recorded. Surgeries None recorded. Imaging US, kidney 2021 022 [facility] Radiology Department, [address] [place], [address], 2 09:00:29 Medication Orders oxybutynin chloride ER 15 mg tablet,exte nded release 24 hr 2021 022 [facility]20, [address], [place], [place], [id number], 2 12:53:22 nitrofurant oin macrocrysta l 50 mg capsule [address] [facility]89, [address], [place], [place], [id number], 4 08:10:56 nitrofurant oin macrocrysta l 50 mg capsule [address] [facility]47586, [address], [place], [place], [id number], 4 08:10:56 oxybutynin chloride ER 15 mg tablet,exte nded release 24 hr 2022 023 [facility] #68293, [address] , [place], [place], [id number], 3 12:15:06 methenamine hippurate 1 gram tablet [address] [facility]08901, [address] , [place], [place], [id number], 4 23:05:30 methenamine hippurate 1 gram tablet 2023 024 [facility] #11970, [address] , [place], [place], [id number], 4 23:05:37 oxybutynin chloride ER 15 mg tablet,exte nded release 24 hr 2023 024 [facility]35, [address] , [place], [id number], 4 23:04:50 Patient TargetsNo targets recorded. Patient InstructionsNo instructions recorded. Reason for Referral None Reported. Results Created Date Observation Date Name Description Value Unit Range Abnormal Flag LastModifiedBy Organization Detail LastModifiedTime 05/12/2021 urina lysis , dipst ick Color-Status Yellow Not Available [facility] [address], [place], [address], 05/12/2021 11:33:40 05/12/2021 urina lysis , dipst ick Clarity-Stat us Cloudy Not Available [facility] [address], [place], [address], 05/12/2021 11:33:40 05/12/2021 urina lysis , dipst ick pH-Status 7.5 Not Available [facility] [address], [place], [address], 05/12/2021 11:33:40 05/12/2021 urina lysis , dipst ick Nitrates-Sta tus positi ve Not Available [facility] [address], [place], [address], 05/12/2021 11:33:40 05/12/2021 urina lysis , dipst ick Blood-Status Small Not Available [facility] [address], [place], [address], 05/12/2021 11:33:40 05/12/2021 urina lysis , dipst ick Leuko-Status Large Not Available [facility] [address], [place], [address], 05/12/2021 11:33:40 05/06/20 21 05/06/2021 URINE CULTU RE final report MICROB IOLOGY RESULT S abnormal Not Available [facility] [address] [facility] [address], [place], [address], 05/08/2021 07:39:35 10/07/19 22 10/05/2021 US, kidne y No observ ation record ed. [address] Radiology Department [address] [place], [address], 09/28/2022 13:47:50 Result Notes None recorded. Procedures Surgical History Date Name Laterality Status Provider Name and Address Organization Details Recorded Time 4 COMPLEX VISIT completed Jono Pagan MD [address] [facility], [place], [address], [place] [facility] 11/01/2023 08:09:54 excision of pressure injury completed Jono Pagan MD [address] [facility],[address], [place], [address], [place] [facility] 09/28/2022 11:00:08 maintenance procedure for cardiac pacemaker system completed Veronika hwang [facility] 11/01/2023 11:05:10 Imaging Results Imaging Date Name Status LastModified by Organiz ation Details LastModified Time 10/05/2021 US, kidney completed [address] Radiology Department [address] [place], [address], 09/28/2022 13:47:50 Procedure Notes None recorded. Medical Equipment None Reported. Allergies Allergen ID Allergen Name Allergen Category Reaction Reaction Severity Criticality Documentation Date Start Date Code Code System Note Provider Name and Address Organization Details Recorded Time 993956 Medicinal product containin g cephalosp pao and acting as antibacte rial agent (product) medicatio n Not available Not available Not available 09/27/2021 75585 9009 SNOMED Nasreen Maritza hwang [facility] 2 12:43:20 360979 shellfish derived food,medi cation Not available Not available Not available 11/01/2023 Veronika Arianna hwang, [place] [facility] 4 11:03:08 Medications Name Sig Start [...] Updated DateTime 09/28/2022 182.88 cm 19.4 kg/m2 11447.71 g Veronika Begum [facility] 09/28/2022 10:55:01 Date Recorded Body height Body mass index (BMI) Body weight Provider Name and Address Organization Details Last Updated DateTime 04/28/2023 182.88 cm 19.4 kg/m2 02146.71 g Mindy Malone [facility] 04/28/2023 11:39:29 Date Recorded Body height Body mass index (BMI) Body weight Provider Name and Address Organization Details Last Updated DateTime 10/12/2023 182.88 cm 19.4 kg/m2 83947.71 g Veronika Begum [facility] 10/12/2023 12:26:19 Date Recorded Body height Body mass index (BMI) Body weight Provider Name and Address Organization Details Last Updated DateTime 11/01/2023 182.88 cm 18.7 kg/m2 83903.75 g Veronika Begum [facility] 11/01/2023 11:02:57 Date Recorded Body height Body mass index (BMI) Body weight Provider Name and Address Organization Details Last Updated DateTime 05/06/2021 182.88 cm 19.4 kg/m2 22223.71 g Chelsea Medrano [facility] 05/06/2021 12:47:45 Date Recorded Body height Body mass index (BMI) Body weight Provider Name and Address Organization Details Last Updated DateTime 09/27/2021 182.88 cm 19.4 kg/m2 02961.71 g Nasreen Salas [facility] 09/27/2021 12:43:07 Social History Question Answer Notes LastModified by Organizat ion Details LastModified Time Tobacco Smoking Status [facility]/18[facility] 14:55:09 What Is Your Level Of Alcohol Consumption? Occasional Information not available 02/18/2021 What Is Your Level Of Caffeine Consumption? Moderate Information not available 02/18/2021 When Did You Quit Smoking? 16+yearssincel astcisaranya Information not available 02/18/2021 What Was The [...] Recorded Time IPV 11/19/2004 completed Mindy hwang [facility] 04/28/2023 11:39:35 COVID-19, mRNA, LNP-S, PF, 30 mcg/0.3 mL dose 08/20/2020 completed Mindy hwang [facility] 04/28/2023 11:39:35 COVID-19, mRNA, LNP-S, PF, 30 mcg/0.3 mL dose 09/14/2020 completed Mindy hwang [facility] 04/28/2023 11:39:35 Pneumococcal conjugate PCV20, polysaccharide [id number] conjugate, adjuvant, PF 12/01/2022 completed Mindy hwang [facility] 04/28/2023 11:39:35 influenza, unspecified formulation 05/24/2006 completed Mindy hwang [facility] 04/28/2023 11:39:35 Tdap 09/01/2006 completed Mindy hwang [facility] 04/28/2023 11:39:35 Tdap 12/26/2008 [facility] 04/28/2023 11:39:35 zoster live 01/29/2015 completed Mindy hwang [facility] 04/28/2023 11:39:35 Influenza, split virus, trivalent, PF 03/25/2011 completed Mindy hwang [facility] 04/28/2023 11:39:35 Influenza, split virus, trivalent, PF 05/24/2012 [facility]/28[facility]2023 11:39:35 Td (adult), 2 Lf tetanus toxoid, preservative free, adsorbed 03/21/1997 completed Mindy hwang [facility] 04/28/2023 11:39:35 Hep B, adult 09/01/2006 completed Mindy hwang, [facility] 04/28/2023 11:39:35 Hep B, adult 11/19/2004 completed Mindy hwang, [facility] 04/28/2023 11:39:35 Hep B, adult 03/30/2007 completed Mindy hwang, [facility] 04/28/2023 11:39:35 Hep A, adult 09/30/2002 completed Mindy hwang, [facility] 04/28/2023 11:39:35 Hep A, adult 11/19/2004 completed Mindy hwang [facility] 04/28/2023 11:39:35 Hep A, adult 05/01/2003 completed Mindy hwang [facility] 04/28/2023 11:39:35 typhoid, ViCPs 09/01/2006 completed Mindy hwang [facility] 04/28/2023 11:39:35 typhoid, ViCPs 09/30/2002 completed Mindy hwang [facility] 04/28/2023 11:39:35 Past Encounters Encounter ID Performer Location Encounter Start Date Encounter Closed Date Diagnosis/Indication Diagnosis SNOMED-CT Code [id number] MD KIKE [facility] [address] [place] [address] 02/18/2021 14:23:42 02/19/2021 12:13:21 Neurogenic urinary bladder 014755307 Spinal cord injury 25220 004 Spasm of u rinary bladder 495282503 Recurrent urinary tract infection 701436277 Acute urin estefany tract infection [id number] Marlene Greer [facility] [address] [place] [address] 05/06/2021 11:58:15 05/11/2021 03:52:30 Abnormal urine [id number] Jono Pagan MD [facility] [address] [place] [address] 09/27/2021 12:37:54 10/27/2021 09:29:43 Neurogenic urinary bladder 513418403 Spinal cord injury 49197 004 Spasm of u rinary bladder 259441934 Recurrent urinary tract infection [id number] [facility]agan [facility] [address] [place] [address] 09/28/2022 10:53:21 10/01/2022 11:26:52 Neurogenic urinary bladder 075264023 Spinal cord injury 77658 004 Spasm of u rinary bladder 086691557 Recurrent urinary tract infection [id number] Jono Pagan MD [facility] [address] [place] [address] 04/28/2023 11:30:11 05/04/2023 11:13:13 Neurogenic urinary bladder 121432952 Spinal cord injury 79282 004 Spasm of u rinary bladder 075354215 Recurrent urinary tract infection [id number] Jono Pagan MD [facility] [address] [place] [address] 11/01/2023 10:52:02 11/02/2023 14:01:41 Neurogenic urinary bladder 343450694 Spinal cord injury 85185 004 Spasm of u rinary bladder 109249315 Recurrent urinary tract infection 801346866 Health Concerns Section Related Observation LastModified by Organization Detai ls LastModified Time None Recorded Concern Status LastModified by Organization Details LastModified Time None Recorded Advance Directives Directive None Recorded Payers Encounter Date Sequence Insurance Name Policy Number Policy Quinones Covered Member ID Quinones Member ID Guarantor Name 05/06/2021 [facility] [employer] [id number] Levar Rios [facility] Khanh Rene 09/27/2021 1 [facility] (MEDICARE REPLACEMENT/AD VANTAGE - PPO) [id number] Khanh Rene [id number] Khanh Rene 09/28/2022 [facility] [employer] [id number] Levar Rios [facility] Khanh Rene 04/28/2023 1 [facility] (MEDICARE REPLACEMENT/AD VANTAGE - PPO) [id number] Khanh Rene [id number] Khanh Rene 11/01/2023 [facility] [id number] Levar Rios [facility] Khanh Gordon Edgard Notes Date Note Type Note Provider Name and Address Organization Details Recorded Time 05/06/2021 text/html HPI Notes: Pt he re for UA/UC due to low back ache, cloudy urine with sediment present X 1.5 weeks. pt given cipro 500mg BID pending culture. 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 Jono Pagan MD [address] [place] [address],[address], [place], [address], [facility] 09/27/2021 13:13:14 09/28/2022 text/html HPI [...] upper tract abnormality. Jono Pagan MD [address] [facility],[address], [place], [address], [facility] 09/28/2022 13:48:55 04/28/2023 text/html HPI [...] Jono Pagan MD [address] [facility],[address], [place], [address], [facility] 04/28/2023 12:27:52 11/01/2023 text/html HPI [...] Jono Pagan MD [address] [facility],[address], [place], [address], [facility] 11/01/2023 23:05:58
== END 2024-01-29 10:56 | disposition home or self-care (01) ==
LOC: WOUND 10:55
PROVIDERS: PCP Family Medicine; Visit Provider Nurse Practitioner Family
DX: M86.171 Other acute osteomyelitis, right ankle and foot (principal); L89.614 Pressure ulcer of right heel, stage 4; L89.894 Pressure ulcer of other site, stage 4; L89.314 Pressure ulcer of right buttock, stage 4; L89.893 Pressure ulcer of other site, stage 3; L89.514 Pressure ulcer of right ankle, stage 4; Z99.3 Dependence on wheelchair
CPT/HCPCS: 11042; 97597

== ENCOUNTER 2024-02-05 10:56 | Outpatient (CLI) | payer OTHER, SELFPAY ==
--- OUTSIDE RECORDS SUMMARY | 2024-02-05 11:00 | XMS_ITS | Clinical Summary ---
Author Organization [facility] Address [place], [place] [address] Care Team Providers Care Line Production Cook Name Role Phone Goyoluis aAna Unavailable Alex Mata MD Primary Care Provider + Jak Keys HAND MODEL Unavailable Allergies Active Allergy Reactions Criticality Noted Date Comments Blood-Group Specific Substance Other - Describe In Comment Field 04/19/2021 Patient has Sims a (Fya) antibody. Blood products may be delayed. Draw patient 24 hours prior to transfusion. For [employer] testing, draw one red top and two purple top tubes for all Type and Screen orders. Cephalexin Diarrhea,Vomiting 01/02/2007 11/19/15: pt states not a true allergy Shellfish Containing Products Diarrhea,Nausea And Vomiting 09/09/2010 Iodine in products Medications Medication Sig Dispensed Refills Start Date End Date Status oxybutynin (DITROPAN XL) 15 mg CR tablet Take 15 mg by mouth two times daily. 05/13/2020 Active ferrous sulfate 325 mg delayed release tablet Take 325 mg by mouth once daily with evening meal. Active aspirin chewable 81 mg chewable tabletIndications:P AD (peripheral artery disease) (HC) Chew 1 Tablet (81 mg) by mouth once daily with a meal. 01/17/2024 Active atorvastatin (LIPITOR) 20 mg tabletIndications:P AD (peripheral artery disease) (HC) Take 1 Tablet (20 mg) by mouth once daily. 30 Tablet 01/17/2024 Active methenamine hippurate (HIPREX) 1 gram tablet Take 1 g by mouth. TWICE DAILY ON DAY 1-3 OF EACH MONTH Active nitrofurantoin macrocrystaL (MACRODANTIN) 50 mg capsule Take 50 mg by mouth once daily. 02/01/2024 Discontinued (*Med complete/Reg imen complete/Lev el of care change) Active Problems Problem Noted Date Diagnosed Date [...] Overview: 09/20/23 bilateral lower extremity arterial ultrasound ([facility]) S/P flap graft 03/06/2020 Neurogenic orthostatic [...] Encounters Date Type Department Care Team Description 02/02/2024 1:04 PM CDT Anesthesia Event [facility] [address] [place] [address] Enrico Perez MD Beulke, Steven William, CRNA 02/02/2024 10:01 AM CDT - 02/03/2024 1:05 PM CDT Hospital Encounter [facility] [address] [place] [address] Maria Guadalupe Leong MD Taylor, MD Jorgito Escobar, Howard Méndez CRNA Discharge Disposition: Home Self Care 02/01/2024 8:53 AM CDT - 02/01/2024 11:59 PM CDT Hospital Encounter [facility] [address] [place] [address] PAD (peripheral artery disease) (HC) 02/01/2024 8:15 AM CDT Office Visit [facility] [address] [place] [address] Raquel Multani MD [facility] (1989 injury//Mixed conductive and sensorineural hearing loss of left ear with restricted hearing of right ear//Bilateral hearing loss, unspecified hearing loss type//Sensorineural hearing loss (SNHL) of right ear with restricted hearing of left ear) 02/01/2024 Travel 01/19/2024 Telephone [facility] [address], [place] [address] Maria Guadalupe Leong MD Surgery Scheduled 01/17/2024 8:00 AM CDT Office Visit [facility] [address] [place] [address] Maria Guadalupe Leong MD Consult (blood flow in the right leg, wounds wont heal, stints in hip 3 yrs ago. blood flow is about 1/2 now) 01/17/2024 Travel 01/02/2024 Travel 12/22/2023 Telephone [facility] [address], [place] [address] Paul Bishop MD Referral 12/13/2023 11:23 AM CDT - 12/13/2023 11:59 PM CDT Hospital Encounter [facility] [address] [place] [address] Sasha Rodriguez PA PAD (peripheral artery disease) (HC) 12/13/2023 Travel 11/28/2023 12:30 PM CDT Office Visit [facility] [address] [place] [address] Terri, Clarissa Adalberto Rasmussen Hearing Aid (consult) 11/27/2023 1:00 PM CDT Office Visit [facility] [address] [place] [address] Angy Israel, Adalberto Hearing Problem (Hearing test) 11/27/2023 Travel 11/23/2023 Travel 11/20/2023 Lab Requisition [facility] [phone] Unknown, Doctor 11/17/2023 11:15 AM CDT Office Visit [facility] [address] [place] [address] Jak Keys NP Wound Check 11/17/2023 11:00 AM CDT Office Visit [facility] [address] [place] [address] 11/17/2023 Orders Only [facility] [address], [place] [address] Sasha Rodriguez PA <No scans attached> 11/17/2023 Travel 11/09/2023 9:45 AM CDT Office Visit [facility] [address] [place] [address] Consult 11/09/2023 Travel from Last 3 Months Immunizations Name [...] Sign Reading Time Taken Comments Blood Pressure 133/70 02/03/2024 8:05 AM CDT Pulse 70 02/03/2024 8:05 AM CDT Temperature 36.4 ??C (97.5 ??F) 02/03/2024 8:05 AM CD T Respiratory Rate 16 02/03/2024 8:05 AM CDT Oxygen Saturation 97% 02/03/2024 8:05 AM CDT Inhaled Oxygen Concentration - - Weight 61.2 kg (135 lb) 02/02/2024 11:10 AM CDT Height 182.9 cm (6') 02/02/2024 11:10 AM CDT Body Mass Index 18.31 02/02/2024 11:10 AM CDT Plan of Treatment Upcoming Encounters Date Type Department Care Team (Late st Contact Info) Description 03/12/2024 12:30 PM CDT Appointment [facility] [address] [place], [place] [phone] 03/12/2024 2:00 PM CDT Office Visit [facility] [address] [place] [address] Maria Guadalupe Leong MD [address] [place] [address] 05/03/2024 Cardiac Device Check [facility] [phone] Health Maintenance Due Date Last Done Comments [...] 12/26/2008, 09/01/2006 Medical Devices Implanted Type Area Oval Or Circular Glass Cutter Device Identifier Shelf Expiration Date Model / Serial / Lot Standard Pacemaker-12/21 Implanted:11/23 by Judson Jenkins MD (Quantity not on file) Standard Pacemaker Medtronic [id number] / [id number] / Procedures Procedure Name Priority Date/Time Associated Diagnosis Comments BASIC METABOLIC PANEL Early AM 02/03/2024 10:42 AM CDT CBC W PLT NO DIFF Early AM 02/03/2024 10: 42 AM CDT SCAN-CARDIAC STRIP 02/03/2024 10 :26 AM CDT SCAN-CARDIAC STRIP 02/03/2024 3: 02 AM CDT ARTERIAL LINE Routine 02/02/2024 2:16 PM CDT ARTERIAL LINE Routine 02/02/2024 2:16 PM CDT ARTERIAL LINE Routine 02/02/2024 2:16 PM CDT ARTERIAL LINE Routine 02/02/2024 2:16 PM CDT ARTERIAL LINE Routine 02/02/2024 2:16 PM CDT ARTERIAL LINE Routine 02/02/2024 2:16 PM CDT HCHG ACTIVATED CLOTTING TM CV Timed 02/02/2024 1:59 PM CDT ENDOTRACHEAL TUBE Routine 02/02/2024 1:3 3 PM CDT ENDOTRACHEAL TUBE Routine 02/02/2024 1:3 3 PM CDT ENDOTRACHEAL TUBE Routine 02/02/2024 1:3 3 PM CDT CBC W PLT NO DIFF Preop 02/02/2024 10: 59 AM CDT BASIC METABOLIC PANEL Preop 02/02/2024 10:59 AM CDT EXTRA TUBE GOLD/SST Today 02/02/2024 1 0:57 AM CDT RBC W/O TYPE & SCREEN STAT 02/02/2024 10:27 AM CDT DONOR ANTIGEN STAT 02/02/2024 10:22 AM CDT RED BLOOD CELLS EA UNIT STAT 02/02/20 10:22 AM CDT RED BLOOD CELLS EA UNIT STAT 02/02/20 10:22 AM CDT RED BLOOD CELLS EA UNIT STAT 02/02/20 10:22 AM CDT RED BLOOD CELLS EA UNIT STAT 02/02/20 10:22 AM CDT ANTIBODY IDENTIFICATION EACH PANEL Today 02/01/2024 9:14 AM CDT ANTIBODY IDENTIFICATION LAB USE ONLY Timed 02/01/2024 9:14 AM CDT PAD (peripheral artery disease) (HC) TYPE & SCREEN Today 02/01/2024 9:14 AM CDT PAD (peripheral artery disease) (HC) SCAN CORRESP-LABORATORY RESULTS 02/01/2024 9:09 AM CDT US ANKLE BRACHIAL INDEX BILATERAL Routine 12/13/2023 [...] LIPID PANEL Early AM 07/14/2008 3:00 AM [employer] from Last 3 Months or Most Recently Relevant to Health Maintenance Results * (ABNORMAL) CBC (02/03/2024 10:42 AM CDT) Only the most recent of2 resultswithin the time period is included. WHITE BLOOD COUNT 5.9 4.5 - 11.0 thou/cu mm 02/03/2024 11:20 AM CDT [facility] RED BLOOD COUNT 3.57(L) 4.30 - 5.90 mil/cu mm 02/03/2024 11:20 AM CDT [facility] HEMOGLOBIN 9.5(L) 13.5 - 17.5 g/dL 02/03/2024 11:20 AM CDT [facility] HEMATOCRIT 30.9(L) 37.0 - 53.0 % 02/03/2024 11:20 AM CDT [facility] MCV 87 80 - 100 fL 02/03/2024 11:20 AM CDT [facility] MCH 26.6 26.0 - 34.0 pg 02/03/2024 11:20 AM CDT [facility] MCHC 30.7(L) 32.0 - 36.0 g/dL 02/03/2024 11:20 AM CDT [facility] RDW 13.5 11.5 - 15.5 % 02/03/2024 11:20 AM CDT [facility] PLATELET COUNT 211 140 - 440 thou/cu mm 02/03/2024 11:20 AM CDT [facility] MPV 8.3 6.5 - 11.0 fL 02/03/2024 11:20 AM CDT [facility] NRBC 0.0 % 02/03/2024 11:20 AM CDT [facility] ABS NRBC 0.0 thou /cu mm 02/03/2024 11:20 AM CDT [facility] Blood BLOOD SPECIMEN / Unknown Venipuncture / Unknown 02/03/2024 10:42 AM CDT 02/03/2024 10:56 AM CDT [facility] LABORATORY - 02/03/2024 11:20 AM CDT Call if Hemoglobin less than 10. Dary Carlos DO HEMATOLOGY [facility] [address] [place] [address], * (ABNORMAL) Basic Metabolic Panel (02/03/2024 10:42 AM CDT) Only the most recent of2 resultswithin the time period is included. SODIUM 139 136 - 145 mmol/L 02/03/2024 11:35 AM CDT [facility] POTASSIUM 4.7 3.5 - 5.1 mmol/L 02/03/2024 11:35 AM CDT [facility] CHLORIDE 107 98 - 107 mmol/L 02/03/2024 11:35 AM CDT [facility] CO2,TOTAL 26 22 - 29 mmol/L 02/03/2024 11:35 AM CDT [facility] ANION GAP 6 5 - 18 02/03/2024 11:35 AM CDT [facility] GLUCOSE 139(H) 70 - 99 mg/dL 02/03/2024 11:35 AM CDT [facility] CALCIUM 8.3(L) 8.8 - 10.2 mg/dL 02/03/2024 11:35 AM CDT [facility] BUN 14 8 - 23 mg/dL 02/03/2024 11:35 AM T [facility] CREATININE 0.42(L) 0.70 - 1.20 mg/dL 02/03/2024 11:35 AM T [facility] BUN/CREAT RATIO 33(H) 10 - 20 11:35 AM T [facility] eGFR >90 >90 mL/min/1.7 3m2 02/03/2024 11:35 AM T [facility] Comment:As of 2021, eG FR is calculated by the CKD-EPI creatinine equation without race adjustment. ??eGFR can be influenced by muscle mass, exercise, and diet. ??The reported eGFR is an estimation only and is only applicable if the renal function is stable. Blood BLOOD SPECIMEN / Unknown Venipuncture / Unknown 02/03/2024 10:42 AM CDT 02/03/2024 10:56 AM CDT Dary Carlos DO [facility] [address] [place] [address], * SCAN-CARDIAC STRIP (02/03/2024 10:26 AM CDT) Scanner OTHER * SCAN-CARDIAC STRIP (02/03/2024 3:02 AM CDT) Scanner OTHER * HCHG CATH PR5, HCHG TUBING PR1, HCHG TUBING PR20, HCHG DRSG PR1, HCHG DRSG PR5, HCHG KIT PR5 (02/02/2024 2:16 PM CDT) Narrative Enrico Perez MD - 02/02/2024 2:16 PM CDT Enrico Perez MD ? 02/02/2024 ??2:17 PM Arterial Line Patient location during procedure: OR Start time: 02/02/2024 1:16 PM Indications: lab sampling and monitoring Staffing Preanesthetic Checklist Completed: patient identified, risks and benefits discussed, consent obtained and timeout performed Arterial Line Patient position: supine. ??Comment:. Laterality: right Site: radial Local Anesthetic: lidocaine 1%. Securement/dressing: Biopatch applied, dressing applied. ??Comment: Vessel Tutor Coordinator Additional supplies used to locate vessel: no Needle Catheter size: 20 G. ??Comment:. Catheter length: 4.5 cm. ??Comment: Events: no complications. Enrico Perez MD ANESTHESIA PX N OTE ORDERABLES * (ABNORMAL) ACTIVATED CLOTTING TIME [id number] ACT (02/02/2024 1:59 PM CDT) ACTIVATED CLOTTING TIME, POCT 308(H) 74 - 125 sec 02/02/2024 3:45 PM CDT [facility] Blood BLOOD SPECIMEN / Unknown 02/02/2024 1:59 PM CDT 02/02/2024 3:45 PM CDT Maria Guadalupe Leong MD [facility] [address] [place] [address], * HCHG TUBE PR1, HCHG STYLET PR1, HCHG MOUTHPIECE PR1 (02/02/2024 1:33 PM CDT) Narrative Howard Bull CRNA - 02/02/2024 1:33 PM CDT Howard Bull CRNA ? 02/02/2024 ??1:34 PM Procedure: ETT Patient location during procedure: OR ETT Properties Mask Ventilation: easy and oral airway Final Technique: direct laryngoscopy Type: straight Location: oral Tube Size: 7.5 mm Stylet: yes Laryngoscope Blade: Treviño Blade Size: 2 Cormack-Lehane Grade View: 1 Insertion Attempts: 1 Placement Verification: auscultation Assessment: pharynx clear and atraumatic Secured at: 23 Measured From: lips Tooth guard used and removed: yes Difficulty: 0 (not difficult) Howard Bull PRINCIPAL MILITARY ANALYST ANESTHESIA PX NOTE ORDERABLES * EXTRA TUBE GOLD/SST (02/02/2024 10:57 AM CDT) Blood BLOOD SPECIMEN / Unknown Extra Tube / Unknown 02/02/2024 10:57 AM CDT 02/02/2024 12:40 PM CDT Maria Guadalupe Leong MD LABORATORY Performing Organization Address City/[facility]/ZIP Co de Phone Number [facility] [address] [place] [address], [place] * RBC W/O TYPE & SCREEN (02/02/2024 10:27 AM CDT) QUANTITY 4 02/02/2024 10:27 AM CDT [facility]-CENTRAL LAB BLOOD BANK Blood BLOOD SPECIMEN / Unknown 02/02/2024 10:22 AM CDT Jono Malone NP BLOOD BANK Performing Organization Address City/[facility] Co de Phone Number [facility] LAB-CENTRAL LAB BLOOD BANK [address] [place] [address], [place] [phone] * DONOR ANTIGEN (02/02/2024 10:22 AM CDT) QUANTITY 4 [facility]-CENTRAL LAB BLOOD BANK DONOR ANTIGEN TYPE Donor Antigen Type [facility] LAB BLOOD BANK Jono Malone NP BLOOD BANK Performing Organization Address City/[facility]/ZIP Co de Phone Number [facility] LAB BLOOD BANK [address] [place] [address], [place] [phone] * RED BLOOD CELLS EA UNIT (02/02/2024 10:22 AM CDT) Only the most recent of4 resultswithin the time period is included. Pathologist Jay CROSSMATCH Compatible Compatible [facility] [employer] LAB-CENTRAL LAB BLOOD BANK PRODUCT BLOOD TYPE A Rh Positive [facility] [employer] LAB-CENTRAL LAB BLOOD BANK PRODUCT ID NUMBER [id number] [facility] LAB BLOOD BANK PRODUCT STATUS /Relea sed [facility] BLOOD BANK PRODUCT DESCRIPTION RBC -1 LR [facility] LAB BLOOD BANK PRODUCT CODE [id number] [facility] BLOOD BANK Jono Malone NP BLOOD BANK [facility] BLOOD BANK [address] [place] [address], * (ABNORMAL) TYPE & SCREEN (02/01/2024 9:14 AM CDT) Pathologist Jay ABORH A Rh Positive 02/01/2024 1:43 PM CDT [facility] BLOOD BANK Comment:Comment: Performed b y Central Laboratory - [facility], [address] [place] [address], [place] [address] ANTIBODY SCREEN Positive(A) Negative 02/01/2024 1:43 PM CDT [facility] BLOOD BANK Comment:Comment: Performed b y [facility], [address] [place] [address] [address] [address] SPECIMEN EXPIRATION DATE/TIME 02/04/24 23:59 02/01/2024 1:43 PM CDT [facility] BLOOD BANK Blood BLOOD SPECIMEN / Unknown Venipuncture / Unknown 02/01/2024 9:14 AM CDT 02/01/2024 9:21 AM CDT Maria Guadalupe Leong MD BLOOD BANK [facility] BLOOD BANK [address] [place] [address] * (ABNORMAL) ANTIBODY IDENTIFICATION LAB USE ONLY (02/01/2024 9:14 AM CDT) [facility] ANTIBODY IDENTIFICATION Anti-Duff y a(A) 02/01/2024 2:49 PM CDT [facility] BLOOD BANK Comment:Comment: Performed b y [facility] Laboratory - [facility], [address] [place] [address] S [address], [place] [address] Blood BLOOD SPECIMEN / Unknown Venipuncture / Unknown 02/01/2024 9:14 AM CDT 02/01/2024 9:21 AM CDT Narrative [facility] BLOOD BANK - 02/01/2024 2:49 PM CDT Blood products may be delayed. Draw patient 24 hours prior to transfusion. Draw one red top and two purple top tubes for all Type and Screen orders. This patient's serological work-up may have included protocols and/or reagents that have not been cleared or approved by the U.S. Food and Drug Administration. If specific information is required, please contact the performing laboratory Maria Guadalupe Leong MD BLOOD BANK [facility] BLOOD BANK [address] [place] [address] * ANTIBODY IDENTIFICATION EACH PANEL (02/01/2024 9:14 AM CDT) [facility] QUANTITY 1 [facility] BLOOD BANK PANEL JOSÉ MIGUEL ID Panel Antibody ID [facility] BLOOD BANK Maria Guadalupe Leong MD BLOOD BANK [facility] BLOOD BANK [address] [place] [address] * SCAN CORRESP-LABORATORY RESULTS (02/01/2024 9:09 AM CDT) Narrative 02/01/2024 9:09 AM CDT Ordered by an unspecified provider. Other Clinical Staff OTHER * US ANKLE BRACHIAL INDEX BILATERAL (12/13/2023 12:19 PM CDT) Anatomical Region Laterality Modality ANKLES, ANKLE L, ANKLE R Ultraso und 12/13/2023 11:2 8 AM CDT Narrative 12/13/2023 2:27 PM CDT VASCULAR ULTRASOUND REPORT MICHEAL RENE Accession#: ?? [id number] : ?1955 ??Study Date: ?? 12/13/2023 11:28:00 AM Age: ?68 years ?? Tech: ? 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 Right toe/brachial index indicates [...] Accreditation Commission (IAC/Vascular), [email or web address] Report generated by [email or web address]. ??Final ?? 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 Right toe/brachial index indicates [...] theIntersocietal Accreditation Commission (IAC/Vascular),[email or web address] Report generated by [employer]. Final Sasha ANDERSON US * CT ANGIO [...] the [facility] Heart [place] (I). FINDINGS: Lower Chest: Calcified right pleural [...] CDT Results are automatically released to your [employer] account once available, in compliance with federal [...] - 1.11 mg/dL 12/13/2023 12:34 PM CDT [facility] Comment:Caution: Patients ta camila Hydroxyurea have falsely increased iStat Creatinine results. Verify creatinine results ordering a Creatinine (91849.2) eGFR >90 >90 mL/min/1.7 3m2 12/13/2023 12:34 PM CDT [facility] Comment:As of [...] Sasha Rodriguez PA CHEMISTRY Performing Organization Address [facility] de Phone Number [facility]-CENTRAL LABORATORY [address] [place] [address], * LAB TRACKING EVENT (11/20/2023 11:37 AM CDT) Other (Other) Client Collect / Unknown 11/20/2023 11:37 AM CDT 11/20/2023 9:52 PM CDT Doctor Unknown LAB BILL ONLY Performing Organization Address [facility] de Phone Number [facility] [address] [place] [address], * PATH TISSUE EXAM (11/20/2023 11:37 AM CDT) Case Report Pathology Report ?Case: [id number] ? Authorizing Provider: ??Unknown, Doctor ?Collected: ? 11/20/2023 1137 ? Ordering Location: ? [facility] ?Received: ?11/21/2023 0637 ? Pathologist: ? Francia Aguirre MD ? Specimen: ?Right Heel, R Calcaneus ? 11/24/2023 8:28 AM T [facility] ENTRAL LABORATORY Final Diagnosis A) BONE, RIGHT HEEL, BIOPSY: Positive for acute osteomyelitis and chondritis 11/24/2023 8:28 AM T [facility] Clinical Information Right heel bone, assess for necrotic tissue and osteomyelitis. 11/24/2023 8:28 AM T [facility] ENTRAL LABORATORY Gross Description A) Received in formalin, labeled with the patient's name and date of , is a 1.0 x 0.8 x 0.1 cm aggregate of youngblood-white bone fragments and possible soft tissue. ??The specimen is entirely submitted in 1 cassette following decalcification. FELICITY 11/22/2023 11/24/2023 8:28 AM T [facility] Microscopic Description The final diagnosis is based on microscopic examination of appropriate sections of all specimens. 11/24/2023 8:28 AM T [facility] ENTRPA LABORATORY Additional Information Interpreted at [facility], Central Laboratory - [address], [place] [address] 11/24/2023 8:28 AM T [facility] Other (Right Heel) 11/20/2023 11:37 AM CDT 11/21/2023 6:37 AM CDT Doctor Unknown PATHOLOGY/CYTOLOGY Performing Organization Address City/State/[facility] Co de Phone Number [facility]-C[facility]AL LABORATORY [address] [place] [address], * Lipid Panel - In AM (07/14/2008 3:00 AM [employer]) CHOLESTEROL,TOTAL 141 110 - 199 mg/dL [facility] TRIGLYCERIDES 41 40 - 149 mg/dL [facility] HDL CHOLESTEROL 45 >40 mg/dL [facility] CHOL/HDL RATIO 3.13 <4.51 [facility] LDL CHOLESTEROL 88 <131 mg/dL [facility] PATIENT STATUS Fasting [facility] Blood specimen (specimen) BLOOD SPECIMEN / Unknown 07/14/2008 3:00 AM [employer] 07/14/2008 1:52 AM [employer] Phyllis Sánchez MD CHEMISTRY [facility] LABORATORY [place]NAL ZIP [address] [place] [address] from Last 3 Months or Most Recently Relevant to Health Maintenance Additional Health Concerns Infection Onset Date Last Indicated MRSA Comment:Order contact precautions. 02/02/24 pt has wound ineligible for screening cultures due to chronic wounds Nares surveillance cultures needed to clear patient if <12 months since positive culture. If >12 months since positive culture, precautions can be discontinued if patient has no MRSA risk factors. 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, receiving hemodialysis, has chronic open wounds/skin damage, has long-term percutaneous indwelling medical devices Exclusions for nares collection (if <12 months since positive culture) include all of the previous exclusions plus patients on antibiotics 7 days prior to collection 12/17/2015 12/17/2015 Advance Directives * Full Code (Latest Code Status on File) Date Activated Date Inactivated Comments 02/02/2024 2:35 PM 02/03/2024 3:15 PM Question Answer Comments Code Status Discussion: Unable to Assess Preferences, Provider to review later * Full Code Date Activated Date Inactivated Comments 09/29/2023 3:56 [...] Comments 2016 6:44 AM 03/14/2016 5:37 PM Care Teams Line Production Cook Relationship Specialty Start Date End Date Alex Mata MD [address] [place] [address] PCP - General Family Practice 02/04/20 Ana Mayers [address] [place] [address] Nurse Practitioner 03/02/11 Jak Keys NP [address] [place] [address] Nurse Practitioner Nurse Practitioner - Adult 10/30/23
--- OUTSIDE RECORDS SUMMARY | 2024-02-05 11:00 | XMS_ITS | Data Portability ---
Author Organization [facility], [facility] Address [address] [place] [address] Care Team Providers Care Document Processing Specialist Name Role Phone CHETNA MERAZ Primary Care Provider [phone] RAHUL OCONNOR Welder Repair Assessment Encounter Date Assessment Date Assessment LastModified [...] None recorded. Lab culture, urine 2020 021 [facility], [address], [place], [address], 07:39:35 urinalysis, dipstick 2020 021 marie Not available 10/20/202 1 11:34:22 Referral None recorded. Procedures None recorded. Surgeries None recorded. Imaging US, kidney 2021 022 [facility] Radiology Department, [address] [facility], [address], 2 09:00:29 Medication Orders oxybutynin chloride ER 15 mg tablet,exte nded release 24 hr 2021 022 [id number], [address], [place], [place], [id number], 2 12:53:22 nitrofurant oin macrocrysta l 50 mg capsule [address] [facility]38666, [address], [place], [place], [id number], 4 08:10:56 nitrofurant oin macrocrysta l 50 mg capsule [address] [facility] [address] [facility]16524, [address], [place], [place], [id number], 4 08:10:56 oxybutynin chloride ER 15 mg tablet,exte nded release 24 hr 2022 023 [facility] #93967, [address] , [place], [place], [id number], 3 12:15:06 methenamine hippurate 1 gram tablet [address] [facility] [address] [facility]91352, [address] , [place], [place], [id number], 4 23:05:30 methenamine hippurate 1 gram tablet 2023 024 [facility] #45112, [address] , [place], [place], [id number], 4 23:05:37 oxybutynin chloride ER 15 mg tablet,exte nded release 24 hr 2023 024 [facility], [address] , [place], [id number], 4 23:04:50 Patient TargetsNo targets recorded. Patient InstructionsNo instructions recorded. Reason for Referral None Reported. Results Created Date Observation Date Name Description Value Unit Range Abnormal Flag LastModifiedBy Organization Detail LastModifiedTime 05/12/2021 urina lysis , dipst ick Color-Status Yellow Not Available [facility] [address], [place], [address], 05/12/2021 11:33:40 05/12/2021 urina lysis , dipst ick Clarity-Stat us Cloudy Not Available [facility] [address], [place], [address], 05/12/2021 11:33:40 05/12/2021 urina lysis , dipst ick pH-Status 7.5 Not Available [facility] [address], [place], [address], 05/12/2021 11:33:40 05/12/2021 urina lysis , dipst ick Nitrates-Sta tus positi ve Not Available [facility] [address], [place], [address], 05/12/2021 11:33:40 05/12/2021 urina lysis , dipst ick Blood-Status Small Not Available [facility] [address], [place], [address], 05/12/2021 11:33:40 05/12/2021 urina lysis , dipst ick Leuko-Status Large Not Available [facility] [address], [place], [address], 05/12/2021 11:33:40 05/06/20 21 05/06/2021 URINE CULTU RE final report MICROB IOLOGY RESULT S abnormal Not Available [facility] [address] [facility], [place], [address], 05/08/2021 07:39:35 10/07/19 22 10/05/2021 US, kidne y No observ ation record ed. [address] Radiology Department [address] [place], [address], 09/28/2022 13:47:50 Result Notes None recorded. Procedures Surgical History Date Name Laterality Status Provider Name and Address Organization Details Recorded Time 4 COMPLEX VISIT completed Jono Pagan MD [address], [place], [address], [place] [facility] 11/01/2023 08:09:54 excision of pressure injury completed Jono Pagan MD [address], [place], [address], [place] [facility] 09/28/2022 11:00:08 maintenance procedure for cardiac pacemaker system completed Veronika hwang [facility] 11/01/2023 11:05:10 Imaging Results Imaging Date Name Status LastModified by Organiz ation Details LastModified Time 10/05/2021 US, kidney completed [address] Radiology Department [address] [place], [address], 09/28/2022 13:47:50 Procedure Notes None recorded. Medical Equipment None Reported. Allergies Allergen ID Allergen Name Allergen Category Reaction Reaction Severity Criticality Documentation Date Start Date Code Code System Note Provider Name and Address Organization Details Recorded Time 431221 Medicinal product containin g cephalosp pao and acting as antibacte rial agent (product) medicatio n Not available Not available Not available 09/27/2021 56952 9009 SNOMED Nasreen Maritza hwang [facility] 2 12:43:20 816932 shellfish derived food,medi cation Not available Not available Not available 11/01/2023 Veronika Arianna hwang, [place] [facility] 4 11:03:08 Medications Name Sig Start [...] Updated DateTime 09/28/2022 182.88 cm 19.4 kg/m2 28105.71 g Veronika Begum [facility] 09/28/2022 10:55:01 Date Recorded Body height Body mass index (BMI) Body weight Provider Name and Address Organization Details Last Updated DateTime 04/28/2023 182.88 cm 19.4 kg/m2 30007.71 g Mindy Malone [facility] 04/28/2023 11:39:29 Date Recorded Body height Body mass index (BMI) Body weight Provider Name and Address Organization Details Last Updated DateTime 10/12/2023 182.88 cm 19.4 kg/m2 29926.71 g Veronika Begum [facility] 10/12/2023 12:26:19 Date Recorded Body height Body mass index (BMI) Body weight Provider Name and Address Organization Details Last Updated DateTime 11/01/2023 182.88 cm 18.7 kg/m2 29392.75 g Veronika Begum [facility] 11/01/2023 11:02:57 Date Recorded Body height Body mass index (BMI) Body weight Provider Name and Address Organization Details Last Updated DateTime 05/06/2021 182.88 cm 19.4 kg/m2 54656.71 g Chelsea Medrano [facility] 05/06/2021 12:47:45 Date Recorded Body height Body mass index (BMI) Body weight Provider Name and Address Organization Details Last Updated DateTime 09/27/2021 182.88 cm 19.4 kg/m2 26774.71 g Nasreen Salas [facility] 09/27/2021 12:43:07 Social History Question Answer Notes LastModified by Organizat ion Details LastModified Time Tobacco Smoking Status [facility] 14:55:09 What Is Your [...] Recorded Time IPV 11/19/2004 completed Mindy hwang [facility] 04/28/2023 11:39:35 COVID-19, mRNA, LNP-S, PF, 30 mcg/0.3 mL dose 08/20/2020 completed Mindy hwang [facility] 04/28/2023 11:39:35 COVID-19, mRNA, LNP-S, PF, 30 mcg/0.3 mL dose 09/14/2020 completed Mindy hwang [facility] 04/28/2023 11:39:35 Pneumococcal conjugate PCV20, polysaccharide TCJ355 conjugate, adjuvant, PF 12/01/2022 completed Mindy hwang [facility] 04/28/2023 11:39:35 influenza, unspecified formulation 05/24/2006 completed Mindy hwang [facility] 04/28/2023 11:39:35 Tdap 09/01/2006 completed Mindy hwang [facility] 04/28/2023 11:39:35 Tdap 12/26/2008 [facility] 04/28[facility]2023 11:39:35 zoster live 01/29/2015 completed Mindy hwang [facility] 04/28/2023 11:39:35 Influenza, split virus, trivalent, PF 03/25/2011 completed Mindy hwang [facility] 04/28/2023 11:39:35 Influenza, split virus, trivalent, PF 05/24/2012 [facility] 04/28/2023 11:39:35 Td (adult), 2 [...] Hep A, adult 11/19/2004 completed Mindy hwang [facility] 04/28/2023 11:39:35 Hep A, adult 05/01/2003 completed Mindy hwang [facility] 04/28/2023 11:39:35 typhoid, ViCPs 09/01/2006 completed Mindy hwang [facility] 04/28/2023 11:39:35 typhoid, ViCPs 09/30/2002 completed Mindy hwang [facility] 04/28/2023 11:39:35 Past Encounters Encounter ID Performer Location Encounter Start Date Encounter Closed Date Diagnosis/Indication Diagnosis SNOMED-CT Code [id number] MD KIKE [facility] [address] [place] [address] 02/18/2021 14:23:42 02/19/2021 12:13:21 Neurogenic urinary bladder 807792475 Spinal cord injury 59124 004 Spasm of u rinary bladder 996087733 Recurrent urinary tract infection 037337206 Acute urin estefany tract infection 991394569 [id number] Marlene Greer [facility] [address] [place] [address] 05/06/2021 11:58:15 05/11/2021 03:52:30 Abnormal urine [id number] Jono Pagan MD [facility] [address] [place] [address] 09/27/2021 12:37:54 10/27/2021 09:29:43 Neurogenic urinary bladder 713571104 Spinal cord injury 28023 004 Spasm of u rinary bladder 282199373 Recurrent urinary tract infection 231577548 [id number] [facility] [address] [place] [address] 09/28/2022 10:53:21 10/01/2022 11:26:52 Neurogenic urinary bladder 423425264 Spinal cord injury 54686 004 Spasm of u rinary bladder 395341417 Recurrent urinary tract infection [id number] Jono Pagan MD [facility] [address] [place] [address] 04/28/2023 11:30:11 05/04/2023 11:13:13 Neurogenic urinary bladder 217284752 Spinal cord injury 11270 004 Spasm of u rinary bladder 643753960 Recurrent urinary tract infection [id number] [facility] [address] [place] [address] 11/01/2023 10:52:02 11/02/2023 14:01:41 Neurogenic urinary bladder 972751366 Spinal cord injury 01318 004 Spasm of u rinary bladder 867959954 Recurrent urinary tract infection 751754793 Health Concerns Section Related Observation LastModified by Organization Detai ls LastModified Time None Recorded Concern Status LastModified by Organization Details LastModified Time None Recorded Advance Directives Directive None Recorded Payers Encounter Date Sequence Insurance Name Policy Number Policy Quinones Covered Member ID Quinones Member ID Guarantor Name 05/06/2021 [facility] [employer] [id number] Levar Rios [facility] Khanh Rene 09/27/2021 1 [facility] (MEDICARE REPLACEMENT/AD VANTAGE - PPO) [id number] Khanh Rene [id number] Khanh Rene 09/28/2022 [facility] [employer] [id number] Levar Rios [facility] Khanh Rene 04/28/2023 1 [facility] (MEDICARE REPLACEMENT/AD VANTAGE - PPO) [id number] Khanh Rene [id number] Khanh Rene 11/01/2023 [facility] [id number] Levar Rios [facility] Khanh Gordon [place] Notes Date Note Type Note Provider Name and Address Organization Details Recorded Time 05/06/2021 text/html HPI Notes: Pt he re for UA/UC due to low back ache, cloudy urine with sediment present X 1.5 weeks. pt given cipro 500mg BID pending culture. 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 Jono Pagan MD [address] [place] [address],[address], [address], [facility] 09/27/2021 13:13:14 09/28/2022 text/html [...] upper tract abnormality. Jono Pagan MD [address], [place], [address], [facility] 09/28/2022 13:48:55 04/28/2023 text/html [...] since the summer. Jono Pagan MD [address], [place], [address], [facility] 04/28/2023 12:27:52 11/01/2023 text/html [...] catheter when traveling. Jono Pagan MD [address], [place], [address], [facility] 11/01/2023 23:05:58
== END 2024-02-05 10:57 | disposition home or self-care (01) ==
LOC: WOUND 10:57
PROVIDERS: PCP Family Medicine; Visit Provider Physician Assistant Surgical
DX: M86.171 Other acute osteomyelitis, right ankle and foot (principal); L89.614 Pressure ulcer of right heel, stage 4; L89.894 Pressure ulcer of other site, stage 4; L89.893 Pressure ulcer of other site, stage 3; L89.314 Pressure ulcer of right buttock, stage 4; L89.514 Pressure ulcer of right ankle, stage 4; Z99.3 Dependence on wheelchair
CPT/HCPCS: 11042; 11043; 11046

== ENCOUNTER 2024-02-12 10:59 | Outpatient (CLI) | payer OTHER, SELFPAY ==
--- OUTSIDE RECORDS SUMMARY | 2024-02-12 11:01 | XMS_ITS | Data Portability ---
Author Organization [facility], [facility] Address [address] [place] [address] Care Team Providers Care Industrial Relations Analyst Name Role Phone CHETNA MERAZ Primary Care Provider RAHUL OCONNOR Government Operations Consultant Assessment Encounter Date Assessment Date Assessment LastModified [...] None recorded. Lab culture, urine 2020 021 [facility], [address], [place], [address], 07:39:35 urinalysis, dipstick 2020 021 marie Not available 10/20/202 1 11:34:22 Referral None recorded. Procedures None recorded. Surgeries None recorded. Imaging US, kidney 2021 022 [facility] Radiology Department, [address] [place], [address], 2 09:00:29 Medication Orders oxybutynin chloride ER 15 mg tablet,exte nded release 24 hr 2021 022 [facility]25759, [address], [place], [place], [id number], 2 12:53:22 nitrofurant oin macrocrysta l 50 mg capsule [address] [facility]8872, [address], [place], [place], [id number], 4 08:10:56 nitrofurant oin macrocrysta l 50 mg capsule [address] [facility]35252, [address], [place], [place], [id number], 4 08:10:56 oxybutynin chloride ER 15 mg tablet,exte nded release 24 hr 2022 023 [facility] #69986, [address] , [place], [place], [id number], 3 12:15:06 methenamine hippurate 1 gram tablet [address] [facility]97686, [address] , [place], [place], [id number], 4 23:05:30 methenamine hippurate 1 gram tablet 2023 024 [facility] #13819, [address] , [place], [place], [id number], 4 23:05:37 oxybutynin chloride ER 15 mg tablet,exte nded release 24 hr 2023 024 [facility], [address] , [place], [id number], 4 23:04:50 Patient TargetsNo targets recorded. Patient InstructionsNo instructions recorded. Reason for Referral None Reported. Results Created Date Observation Date Name Description Value Unit Range Abnormal Flag LastModifiedBy Organization Detail LastModifiedTime 05/12/2021 urina lysis , dipst ick Color-Status Yellow Not Available [facility] [address], [place], [address], 05/12/2021 11:33:40 05/12/2021 urina lysis , dipst ick Clarity-Stat us Cloudy Not Available [facility] [address], [place], [address], 05/12/2021 11:33:40 05/12/2021 urina lysis , dipst ick pH-Status 7.5 Not Available [facility] [address], [place], [address], 05/12/2021 11:33:40 05/12/2021 urina lysis , dipst ick Nitrates-Sta tus positi ve Not Available [facility] [address], [place], [address], 05/12/2021 11:33:40 05/12/2021 urina lysis , dipst ick Blood-Status Small Not Available [facility] [address], [place], [address], 05/12/2021 11:33:40 05/12/2021 urina lysis , dipst ick Leuko-Status Large Not Available [facility] [address], [place], [address], 05/12/2021 11:33:40 05/06/20 21 05/06/2021 URINE CULTU RE final report MICROB IOLOGY RESULT S abnormal Not Available [facility] [address], [place], [address], 05/08/2021 07:39:35 10/07/19 22 10/05/2021 US, kidne y No observ ation record ed. [address] Radiology Department [address] [place], [address], 09/28/2022 13:47:50 Result Notes None recorded. Procedures Surgical History Date Name Laterality Status Provider Name and Address Organization Details Recorded Time 4 COMPLEX VISIT completed Jono Pagan MD [address] [facility],[address], [place], [address], [place] [facility] 11/01/2023 08:09:54 excision of pressure injury completed Jono Pagan MD [address] [facility],[address], [place], [address], [place] [facility] 09/28/2022 11:00:08 maintenance procedure for cardiac pacemaker system completed Veronika hwang [facility] 11/01/2023 11:05:10 Imaging Results Imaging Date Name Status LastModified by Organiz ation Details LastModified Time 10/05/2021 US, kidney completed [address] Radiology Department [address] [place], [address], 09/28/2022 13:47:50 Procedure Notes None recorded. Medical Equipment None Reported. Allergies Allergen ID Allergen Name Allergen Category Reaction Reaction Severity Criticality Documentation Date Start Date Code Code System Note Provider Name and Address Organization Details Recorded Time 586027 Medicinal product containin g cephalosp pao and acting as antibacte rial agent (product) medicatio n Not available Not available Not available 09/27/2021 40450 9009 SNOMED Nasreen Maritza hwang [facility] 2 12:43:20 381846 shellfish derived food,medi cation Not available Not available Not available 11/01/2023 Veronika Arianna hwang, [place] - [facility] 4 11:03:08 Medications Name [...] Updated DateTime 09/28/2022 182.88 cm 19.4 kg/m2 41981.71 g Veronika Begum [facility] 09/28/2022 10:55:01 Date Recorded Body height Body mass index (BMI) Body weight Provider Name and Address Organization Details Last Updated DateTime 04/28/2023 182.88 cm 19.4 kg/m2 66200.71 g Mindy Malone [facility] 04/28/2023 11:39:29 Date Recorded Body height Body mass index (BMI) Body weight Provider Name and Address Organization Details Last Updated DateTime 10/12/2023 182.88 cm 19.4 kg/m2 27967.71 g Veronika Begum [facility] 10/12/2023 12:26:19 Date Recorded Body height Body mass index (BMI) Body weight Provider Name and Address Organization Details Last Updated DateTime 11/01/2023 182.88 cm 18.7 kg/m2 01114.75 g Veronika Begum [facility] 11/01/2023 11:02:57 Date Recorded Body height Body mass index (BMI) Body weight Provider Name and Address Organization Details Last Updated DateTime 05/06/2021 182.88 cm 19.4 kg/m2 36416.71 g Chelsea Medrano [facility] 05/06/2021 12:47:45 Date Recorded Body height Body mass index (BMI) Body weight Provider Name and Address Organization Details Last Updated DateTime 09/27/2021 182.88 cm 19.4 kg/m2 70694.71 g Nasreen Salas [facility] 09/27/2021 12:43:07 Social History Question Answer Notes LastModified by Organizat ion Details LastModified Time Tobacco Sm[facility] Status [facility] 14:55:09 What Is Your Level Of [...] Recorded Time IPV 11/19/2004 completed Mindy hwang [facility] 04/28/2023 11:39:35 COVID-19, mRNA, LNP-S, PF, 30 mcg/0.3 mL dose 08/20/2020 completed Mindy hwang [facility] 04/28/2023 11:39:35 COVID-19, mRNA, LNP-S, PF, 30 mcg/0.3 mL dose 09/14/2020 completed Mindy hwang [facility] 04/28/2023 11:39:35 Pneumococcal conjugate PCV20, polysaccharide OAE358 conjugate, adjuvant, PF 12/01/2022 completed Mindy hwang [facility] 04/28/2023 11:39:35 influenza, unspecified formulation 05/24/2006 completed Mindy hwang [facility] 04/28/2023 11:39:35 Tdap 09/01/2006 completed Mindy hwang [facility] 04/28/2023 11:39:35 Tdap 12/26/2008 [facility]23 11:39:35 zoster live 01/29/2015 completed Mindy hwang [facility] 04/28/2023 11:39:35 Influenza, split virus, trivalent, PF 03/25/2011 completed Mindy hwang [facility] 04/28/2023 11:39:35 Influenza, split virus, trivalent, PF 05/24/2012 [facility] 11:39:35 Td (adult), 2 Lf tetanus toxoid, preservative free, adsorbed 03/21/1997 completed Mindy hwang [facility] 04/28/2023 11:39:35 Hep B, adult 09/01/2006 completed Mindy hwang, [facility] 04/28/2023 11:39:35 Hep B, adult 11/19/2004 completed Mindy hwang, [facility] 04/28/2023 11:39:35 Hep B, adult 03/30/2007 completed Mindy hwang, [facility] 04/28/2023 11:39:35 Hep A, adult 09/30/2002 completed Mindy hwang, [facility] 04/28/2023 11:39:35 Hep A, adult 11/19/2004 completed Mindy hwang [facility] 04/28/2023 11:39:35 Hep A, adult 05/01/2003 completed Mindy hwang [facility] 04/28/2023 11:39:35 typhoid, ViCPs 09/01/2006 completed Mindy hwang [facility] 04/28/2023 11:39:35 typhoid, ViCPs 09/30/2002 completed Mindy hwang [facility] 04/28/2023 11:39:35 Past Encounters Encounter ID Performer Location Encounter Start Date Encounter Closed Date Diagnosis/Indication Diagnosis SNOMED-CT Code [id number] MD [facility]IKE [facility] [address] [place] [address] 02/18/2021 14:23:42 02/19/2021 12:13:21 Neurogenic urinary bladder 432930183 Spinal cord injury 79513 004 Spasm of u rinary bladder 489453547 Recurrent urinary tract infection 789904117 Acute urin estefany tract infection [id number] Marlene Greer [facility] [address] [place] [address] 05/06/2021 11:58:15 05/11/2021 03:52:30 Abnormal urine [id number] Jono Pagan MD [facility] [address] [place] [address] 09/27/2021 12:37:54 10/27/2021 09:29:43 Neurogenic urinary bladder 088519036 Spinal cord injury 68967 004 Spasm of u rinary bladder 309436881 Recurrent urinary tract infection 226359841 [id number] [facility] [address] [place] [address] 09/28/2022 10:53:21 10/01/2022 11:26:52 Neurogenic urinary bladder 332402032 Spinal cord injury 57152 004 Spasm of u rinary bladder 449367028 Recurrent urinary tract infection [id number] Jono Pagan MD [facility] [address] [place] [address] 04/28/2023 11:30:11 05/04/2023 11:13:13 Neurogenic urinary bladder 491608398 Spinal cord injury 58714 004 Spasm of u rinary bladder 208161142 Recurrent urinary tract infection [id number] [facility] [address] [place] [address] 11/01/2023 10:52:02 11/02/2023 14:01:41 Neurogenic urinary bladder 447801885 Spinal cord injury 21851 004 Spasm of u rinary bladder 612311751 Recurrent urinary tract infection 606258839 Health Concerns Section Related Observation LastModified by Organization Detai ls LastModified Time None Recorded Concern Status LastModified by Organization Details LastModified Time None Recorded Advance Directives Directive None Recorded Payers Encounter Date Sequence Insurance Name Policy Number Policy Quinones Covered Member ID Quinones Member ID Guarantor Name 05/06/2021 [facility] [employer] [id number] Levar Rios [facility] Khanh Rene 09/27/2021 1 [facility] (MEDICARE REPLACEMENT/AD VANTAGE - PPO) [id number] Khanh Rene [id number] Khanh Rene 09/28/2022 [facility] [employer] [id number] Levar Rios [facility] Khanh Rene 04/28/2023 1 [facility] (MEDICARE REPLACEMENT/AD VANTAGE - PPO) [id number] Khanh Rene [id number] Khanh Rene 11/01/2023 [facility] [id number] Levar Rios [facility] Khanh Gordon [place] Notes Date Note Type Note Provider Name and Address Organization Details Recorded Time 05/06/2021 text/html HPI Notes: Pt he re for UA/UC due to low back ache, cloudy urine with sediment present X 1.5 weeks. pt given cipro 500mg BID pending culture. 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 Jono Pagan MD [address] [place] [address],[address], [place], [address], [facility] 09/27/2021 13:13:14 09/28/2022 text/html [...] abnormality. Jono Pagan MD [address] [facility],[address], [place], [address], [facility] 09/28/2022 13:48:55 04/28/2023 text/html [...] since the summer. Jono Pagan MD [address] [facility],[address], [place], [address], [facility] 04/28/2023 12:27:52 11/01/2023 text/html [...] traveling. Jono Pagan MD [address] [facility],[address], [place], [address], [facility] 11/01/2023 23:05:58
--- OUTSIDE RECORDS SUMMARY | 2024-02-12 11:01 | XMS_ITS | Clinical Summary ---
Author Organization [employer] Address [place], [place] [address] Care Team Providers Care Ends Breakage Clerk Name Role Phone Goyoluis aAna Unavailable Aelx Mata MD Primary Care Provider + Jak Keys FINANCE VICE PRESIDENT Unavailable [phone] Allergies Active Allergy Reactions Criticality Noted Date Comments Blood-Group Specific Substance Other - Describe In Comment Field 04/19/2021 Patient has Sims a (Fya) antibody. Blood products may be delayed. Draw patient 24 hours prior to transfusion. For STARFACE testing, draw one red top and two [...] Overview: 09/20/23 bilateral lower extremity arterial ultrasound ([facility]) S/P flap graft 03/06/2020 Neurogenic orthostatic [...] Description 02/02/2024 1:04 PM CDT Anesthesia Event [facility] [address] [place] [address] Enrico Perez MD Beulke, Steven William, CRNA 02/02/2024 10:01 AM CDT - 02/03/2024 1:05 PM CDT Hospital Encounter [facility] [address] [place] [address] Maria Guadalupe Leong MD Taylor, MD Jorgito Escobar, Howard Mnédez CRNA Discharge Disposition: Home Self Care 02/01/2024 8:53 AM CDT - 02/01/2024 11:59 PM CDT Hospital Encounter [facility] [address] [place] [address] PAD (peripheral artery disease) (HC) 02/01/2024 8:15 AM CDT Office Visit [facility] [address] [place] [address] Raquel Multani MD [facility] (1989 injury//Mixed conductive and sensorineural hearing loss of left ear with restricted hearing of right ear//Bilateral hearing loss, unspecified hearing loss type//Sensorineural hearing loss (SNHL) of right ear with restricted hearing of left ear) 02/01/2024 Travel 01/19/2024 Telephone [facility] [address] [address] Maria Guadalupe Leong MD Surgery Scheduled 01/17/2024 8:00 AM CDT [facility] [address] [place] [address] Maria Guadalupe Leong MD Consult (blood flow in the right leg, wounds wont heal, stints in hip 3 yrs ago. blood flow is about 1/2 now) 01/17/2024 Travel 01/02/2024 Travel 12/22/2023 Telephone [facility] [address] [address] Paul Bishop MD Referral 12/13/2023 11:23 AM CDT - 12/13/2023 11:59 PM CDT Hospital Encounter [facility] [address] [place] [address] Sasha Rodriguez PA PAD (peripheral artery disease) (HC) 12/13/2023 Travel 11/28/2023 12:30 PM CDT Office Visit [facility] [address] [phone] Terri, Clarissa RasmussenAdalberto Hearing Aid (consult) 11/27/2023 1:00 PM CDT Office Visit [facility] [address] [place] [address] Angy Israel, Adalberto Hearing Problem (Hearing test) 11/27/2023 Travel 11/23/2023 Travel 11/20/2023 Lab Requisition [facility] [phone] Unknown, Doctor 11/17/2023 11:15 AM CDT Office Visit [facility] [address] [place] [address] Jak Keys NP Wound Check 11/17/2023 11:00 AM CDT Office Visit [facility] [address] [place] [address] 11/17/2023 Orders Only [facility] [address] [place] [address] Sasha Rodriguez PA <No scans attached> 11/17/2023 Travel from Last 3 Months Immunizations Name [...] Description 03/12/2024 12:30 PM CDT Appointment [facility] [address] [place] [address] 03/12/2024 2:00 PM CDT Office Visit [facility] [address] [place] [address] Maria Guadalupe Leong MD [address] [place] [address] 05/03/2024 Cardiac Device Check [facility] [phone] Health Maintenance Due Date Last Done Comments [...] 12/26/2008, 09/01/2006 Medical Devices Implanted Type Area Career Representative Device Identifier Shelf Expiration Date Model / Serial / Lot Standard Pacemaker-12/21 Implanted:11/23 by Judson Jenkins MD (Quantity not on file) Standard Pacemaker Medtronic [id number] / [id number] / Procedures Procedure Name Priority Date/Time Associated [...] EA UNIT STAT 02/02/20 10:22 AM CDT SCAN-CARDIAC STRIP 02/02/2024 12 :00 AM CDT ANTIBODY IDENTIFICATION EACH PANEL Today [...] LIPID PANEL Early AM 07/14/2008 3:00 AM CLINICAL PROJECT LEADER from Last 3 Months or Most Recently Relevant to Health Maintenance Results * (ABNORMAL) CBC (02/03/2024 10:42 AM CDT) Only the most recent of2 resultswithin the time period is included. WHITE BLOOD COUNT 5.9 4.5 - 11.0 thou/cu mm 02/03/2024 11:20 AM CDT [facility] TRAL LABORATORY RED BLOOD COUNT 3.57(L) 4.30 - 5.90 mil/cu mm 02/03/2024 11:20 AM CDT [facility] HEMOGLOBIN 9.5(L) 13.5 - 17.5 g/dL 02/03/2024 11:20 AM CDT [facility] TRAL LABORATORY HEMATOCRIT 30.9(L) 37.0 - 53.0 % 02/03/2024 11:20 AM CDT [facility] TRAL LABORATORY MCV 87 80 - 100 fL 02/03/2024 11:20 AM CDT [facility] TRAL LABORATORY MCH 26.6 26.0 - 34.0 pg 02/03/2024 11:20 AM CDT [facility] TRAL LABORATORY MCHC 30.7(L) 32.0 - 36.0 g/dL 02/03/2024 11:20 AM CDT [facility] TRAL LABOR[facility] RDW 13.5 11.5 - 15.5 % 02/03/2024 11:20 AM CDT [facility] TRAL LAB[facility] PLATELET COUNT 211 140 - 440 thou/cu mm 02/03/2024 11:20 AM CDT [facility] TRAL LAB[facility] MPV 8.3 6.5 - 11.0 fL 02/03/2024 11:20 AM CDT [facility] TRAL LABORATORY NRBC 0.0 % 02/03/2024 11:20 AM CDT [facility] TRAL LAB[facility] ABS NRBC 0.0 thou /cu mm 02/03/2024 11:20 AM CDT [facility] TRAL LABORATORY Blood BLOOD SPECIMEN / Unknown Venipuncture / Unknown 02/03/2024 10:42 AM CDT 02/03/2024 10:56 AM CDT [facility] LABORATORY - 02/03/2024 11:20 AM CDT Call if Hemoglobin less than 10. Dary Carlos DO HEMATOLOGY [facility] [address] [place] [address], * (ABNORMAL) Basic Metabolic Panel (02/03/2024 10:42 AM CDT) Only the most recent of2 resultswithin the time period is included. SODIUM 139 136 - 145 mmol/L 02/03/2024 11:35 AM CDT [facility] TRAL LABORATORY POTASSIUM 4.7 3.5 - 5.1 mmol/L 02/03/2024 11:35 AM CDT [facility] TRAL LABOR[facility] CHLORIDE 107 98 - 107 mmol/L 02/03/2024 11:35 AM CDT [facility] TRAL LAB[facility] CO2,TOTAL 26 22 - 29 mmol/L 02/03/2024 11:35 AM CDT [facility] TRAL LAB[facility] ANION GAP 6 5 - 18 02/03/2024 11:35 AM CDT [facility] TR[facility] LAB[facility] GLUCOSE 139(H) 70 - 99 mg/dL 02/03/2024 11:35 AM CDT [facility] TR[facility] LAB[facility] CALCIUM 8.3(L) 8.8 - 10.2 mg/dL 02/03/2024 11:35 AM CDT [facility] TR[facility] LAB[facility] BUN 14 8 - 23 mg/dL 02/03/2024 11:35 AM T [facility] TRAL LABORATORY CREATININE 0.42(L) 0.70 - 1.20 mg/dL 02/03/2024 11:35 AM T [facility] TRAL LABORATORY BUN/CREAT RATIO 33(H) 10 - 20 11:35 AM T [facility] TRAL LABORATORY eGFR >90 >90 mL/min/1.7 3m2 02/03/2024 11:35 AM T [facility] TRAL LABORATORY Comment:As of 2021, [...] 10:56 AM CDT Dary Carlos DO [facility] [address] [place] [address], * SCAN-CARDIAC STRIP (02/03/2024 10:26 AM CDT) [...] Securement/dressing: Biopatch applied, dressing applied. ??Comment: Vessel Slide Fasteners Inspector Additional supplies used to locate vessel: no Needle Catheter size: 20 G. ??Comment:. Catheter length: 4.5 cm. ??Comment: Events: no complications. Enrico Perez MD ANESTHESIA PX N OTE ORDERABLES * (ABNORMAL) ACTIVATED CLOTTING TIME [id number] ACT (02/02/2024 1:59 PM CDT) [facility] ACTIVATED CLOTTING TIME, POCT 308(H) 74 - 125 sec 02/02/2024 3:45 PM CDT [facility] Blood BLOOD SPECIMEN / Unknown 02/02/2024 1:59 PM CDT 02/02/2024 3:45 PM CDT Maria Guadalupe Leong MD HEMATOLOGY [facility]-CENTRAL LABORATORY [address] [place] [address], * HCHG TUBE PR1, HCHG STYLET PR1, [...] yes Difficulty: 0 (not difficult) Howard Bull CASEWORK SPECIALIST ANESTHESIA PX NOTE ORDERABLES * EXTRA TUBE GOLD/SST (02/02/2024 10:57 AM CDT) Blood BLOOD SPECIMEN / Unknown Extra Tube / Unknown 02/02/2024 10:57 AM CDT 02/02/2024 12:40 PM CDT Maria Guadalupe Leong MD LABORATORY [facility]-CEN[facility]AL LABORATORY [address] [place] [address], [place] * RBC W/O TYPE & SCREEN (02/02/2024 10:27 AM CDT) QUANTITY 4 02/02/2024 10:27 AM CDT [facility] Blood BLOOD SPECIMEN / Unknown 02/02/2024 10:22 AM CDT Jono Malone NP BLOOD BANK Performing Organization Address City/[facility] Co de Phone Number [facility] LAB-CENTRAL LAB BLOOD BANK [address] [place] [address], [place] [phone] * DONOR ANTIGEN (02/02/2024 10:22 AM CDT) QUANTITY 4 [facility] LAB-CENTRAL LAB BLOOD BANK DONOR ANTIGEN TYPE Donor Antigen Type [facility] LAB-CENTRAL LAB BLOOD BANK Jono Malone NP BLOOD BANK Performing Organization Address City/[facility] Co de Phone Number [facility]-CENTRAL LAB BLOOD BANK [address] [place] [address], [place] [phone] * RED BLOOD CELLS EA UNIT (02/02/2024 10:22 AM CDT) Only the most recent of4 resultswithin the time period is included. CROSSMATCH Compatible Compatible [facility] BLOOD BANK PRODUCT BLOOD TYPE A Rh Positive [facility] [employer] LAB-CENTRAL LAB BLOOD BANK PRODUCT ID NUMBER [id number] [facility] LAB-CENTRAL LAB BLOOD BANK PRODUCT STATUS /Relea sed [facility] BLOOD BANK PRODUCT DESCRIPTION RBC -1 LR [facility] [employer] LAB-CENTRAL LAB BLOOD BANK PRODUCT CODE [id number] [facility] BLOOD BANK Jono Malone NP BLOOD BANK [facility] LAB-CENTRAL LAB BLOOD BANK [address] [place] [address], * SCAN-CARDIAC STRIP (02/02/2024 12:00 AM CDT) Narrative 02/02/2024 12:00 AM CDT Ordered by an unspecified provider. Other Clinical Staff OTHER * (ABNORMAL) TYPE & SCREEN (02/01/2024 9:14 AM CDT) Pathologist [facility] ABORH A Rh Positive 02/01/2024 1:43 PM CDT [facility] BLOOD BANK Comment:Comment: Performed b y Central Laboratory - [facility], [address] [place] [phone] ANTIBODY SCREEN Positive(A) Negative 02/01/2024 1:43 PM CDT [facility] BLOOD BANK Comment:Comment: Performed b y Central Laboratory - [facility], [address] [place] [phone] SPECIMEN EXPIRATION DATE/TIME 02/04/24 23:59 02/01/2024 1:43 PM CDT [facility] BLOOD BANK Blood BLOOD SPECIMEN / Unknown Venipuncture / Unknown 02/01/2024 9:14 AM CDT 02/01/2024 9:21 AM CDT Maria Guadalupe Leong MD BLOOD BANK [facility] BLOOD BANK [address] [place] [address] * (ABNORMAL) ANTIBODY IDENTIFICATION LAB USE ONLY (02/01/2024 9:14 AM CDT) [facility] ANTIBODY IDENTIFICATION Anti-Duff y a(A) 02/01/2024 2:49 PM CDT [facility] BLOOD BANK Comment:Comment: Performed b y Central Laboratory - [facility], [address] [place] [address] S [address], [place] [address] Blood BLOOD SPECIMEN / Unknown Venipuncture / Unknown 02/01/2024 9:14 AM CDT 02/01/2024 9:21 AM CDT Narrative [facility] BLOOD BANK - 02/01/2024 2:49 PM [...] laboratory Maria Guadalupe Leong MD BLOOD BANK Performing Organization Address [facility] Co de Phone Number [facility] BLOOD BANK [address] [place] [address] * ANTIBODY IDENTIFICATION EACH PANEL (02/01/2024 9:14 AM CDT) [facility] QUANTITY 1 [facility] BLOOD BANK PANEL JOSÉ MIGUEL ID Panel Antibody ID [facility] BLOOD BANK Maria Guadalupe Leong MD BLOOD BANK Performing Organization Address [facility]/ZIP Co de Phone Number [facility] LAB[facility] BLOOD BANK [address] [place] [address] * SCAN CORRESP-LABORATORY RESULTS (02/01/2024 9:09 AM CDT) Narrative 02/01/2024 9:09 AM CDT Ordered by an unspecified provider. Other Clinical Staff OTHER * US ANKLE BRACHIAL INDEX BILATERAL (12/13/2023 12:19 PM CDT) Anatomical Region Laterality Modality ANKLES, ANKLE L, ANKLE R Ultraso und 12/13/2023 11:2 8 AM CDT Narrative 12/13/2023 2:27 PM CDT VASCULAR ULTRASOUND REPORT MICHEAL RENE Accession#: ?? [id number] : ?1955 ??Study Date: ?? 12/13/2023 11:28:00 AM Age: ?68 years ?? Tech: ? 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 Right toe/brachial index indicates [...] Accreditation Commission (IAC/Vascular), www.intersocietal.org/vascular Report generated by iZettle. ??Final ?? 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 Right toe/brachial index indicates [...] theIntersocietal Accreditation Commission (IAC/Vascular),[email or web address].org/vascular Report generated by iZettle. Final Sasha ANDERSON US * CT ANGIO [...] For Patients: As a result of the 21st Century Cures Act, medical imaging exams and [...] conjunction with the services provided by the [facility] (I). FINDINGS: Lower Chest: Calcified right pleural [...] CDT Results are automatically released to your STARFACE ([employer]) account once available, in compliance with federal [...] - 1.11 mg/dL 12/13/2023 12:34 PM CDT [facility] TR[facility]ATORY Comment:Caution: Patients ta camila Hydroxyurea have falsely increased iStat Creatinine results. Verify creatinine results ordering a Creatinine (39895.2) eGFR >90 >90 mL/min/1.7 3m2 12/13/2023 12:34 PM CDT [facility] TRAL LABORATORY Comment:As of 2021, [...] Sasha Rodriguez PA CHEMISTRY Performing Organization Address [facility] de Phone Number [facility] [address] [place] [address], * LAB TRACKING EVENT (11/20/2023 11:37 AM CDT) Other (Other) Client Collect / Unknown 11/20/2023 11:37 AM CDT 11/20/2023 9:52 PM CDT Doctor Unknown LAB BILL ONLY Performing Organization Address [facility] de Phone Number [facility] [address] [place] [address], * PATH TISSUE EXAM (11/20/2023 11:37 AM CDT) Case Report Pathology Report ?Case: [id number] ? Authorizing Provider: ??Unknown, Doctor ?Collected: ? 11/20/2023 1137 ? Ordering Location: ? [facility] ?Received: ?11/21/2023 0637 ? Pathologist: ? Francia Aguirre MD ? Specimen: ?Right Heel, R Calcaneus ? 11/24/2023 8:28 AM T [facility] ENTRAL LABORATORY Final Diagnosis A) BONE, RIGHT HEEL, BIOPSY: Positive for acute osteomyelitis and chondritis 11/24/2023 8:28 AM [facility] ENTRAL LABORATORY Clinical Information Right heel bone, assess for necrotic tissue and osteomyelitis. 11/24/2023 8:28 AM T [facility] Gross Description A) Received in formalin, labeled with the patient's name and date of , is a 1.0 x 0.8 x 0.1 cm aggregate of youngblood-white bone fragments and possible soft tissue. ??The specimen is entirely submitted in 1 cassette following decalcification. FELICITY 11/22/2023 11/24/2023 8:28 AM T [facility] ENTRAL LABORATORY Microscopic Description The final diagnosis is based on microscopic examination of appropriate sections of all specimens. 11/24/2023 8:28 AM T [facility] ENTRAL LABORATORY Additional Information Interpreted at [facility], Central Laboratory - [address], [place] [address] 11/24/2023 8:28 AM [facility] ENTRAL LABORATORY Other (Right Heel) 11/20/2023 11:37 AM CDT 11/21/2023 6:37 AM CDT Doctor Unknown PATHOLOGY/CYTOLOGY [facility] LABORATORY-CENTRAL LABORATORY [address] [place] [address], * Lipid Panel - In AM (07/14/2008 3:00 AM CLINICAL PROJECT LEADER) CHOLESTEROL,TOTAL 141 110 - 199 mg/dL [facility] TRIGLYCERIDES 41 40 - 149 mg/dL [facility] HDL CHOLESTEROL 45 >40 mg/dL [facility] CHOL/HDL RATIO 3.13 <4.51 [facility] LDL CHOLESTEROL 88 <131 mg/dL [facility] PATIENT STATUS Fasting [facility] Blood specimen (specimen) BLOOD SPECIMEN / Unknown 07/14/2008 3:00 AM CLINICAL PROJECT LEADER 07/14/2008 1:52 AM CLINICAL PROJECT LEADER Phyllis Sánchez MD CHEMISTRY [facility] LABORATORY INTERNAL ZIP [address] [place] [address] from Last 3 Months or Most Recently [...] 6:44 AM 03/14/2016 5:37 PM Care Teams Ends Breakage Clerk Relationship Specialty Start Date End Date Alex Mata MD [address] [place] [address] PCP - General Family Practice 02/04/20 Ana Mayers [address] [place] [address] Nurse Practitioner 03/02/11 Jak Keys NP [address] [address] Nurse Practitioner Nurse Practitioner - Adult 10/30/23
== END 2024-02-12 11:00 | disposition home or self-care (01) ==
LOC: WOUND 10:59
PROVIDERS: PCP Family Medicine; Visit Provider Nurse Practitioner Family
DX: M86.171 Other acute osteomyelitis, right ankle and foot (principal); L89.614 Pressure ulcer of right heel, stage 4; L89.894 Pressure ulcer of other site, stage 4; L89.893 Pressure ulcer of other site, stage 3; L89.314 Pressure ulcer of right buttock, stage 4; L89.514 Pressure ulcer of right ankle, stage 4; Z99.3 Dependence on wheelchair
CPT/HCPCS: 11042; 97597

== ENCOUNTER 2024-02-19 10:54 | Outpatient (CLI) | payer OTHER, SELFPAY ==
--- OUTSIDE RECORDS SUMMARY | 2024-02-19 10:57 | XMS_ITS | Data Portability ---
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 Lab culture, urine 2020 021 [facility] [place] [facility], [address], [place], [address], 07:39:35 urinalysis, dipstick 2020 021 marie Not available 10/20/202 1 11:34:22 Referral None recorded. Procedures None recorded. Surgeries None recorded. Imaging US, kidney 2021 022 [facility] Radiology Department, [address] [facility] [place], [address], 2 09:00:29 Medication Orders oxybutynin chloride ER 15 mg tablet,exte nded release 24 hr 2021 022 [facility] #[id number], [address], [place], [place], [id number], 2 12:53:22 nitrofurant oin macrocrysta l 50 mg capsule [address] [facility]36732, [address], [place], [place], [id number], 4 08:10:56 nitrofurant oin macrocrysta l 50 mg capsule [address] [facility] #56660, [address], [place], [place], [id number], 4 08:10:56 oxybutynin chloride ER 15 mg tablet,exte nded release 24 hr 2022 023 [facility] #06963, [address] , [place], [place], [id number], 3 12:15:06 methenamine hippurate 1 gram tablet [address] [facility]54219, [address] , [place], [place], [id number], 4 23:05:30 methenamine hippurate 1 gram tablet 2023 024 [facility] #08800, [address] , [place], [place], [id number], 4 23:05:37 oxybutynin chloride ER 15 mg tablet,exte nded release 24 hr 2023 024 [facility]35, [address] , [place], [id number], 4 23:04:50 Patient TargetsNo targets recorded. Patient InstructionsNo instructions recorded. Reason for Referral None Reported. Results Created Date Observation Date Name Description Value Unit Range Abnormal Flag LastModifiedBy Organization Detail LastModifiedTime 05/12/2021 urina lysis , dipst ick Color-Status Yellow Not Available [facility] [address], [place], [address], 05/12/2021 11:33:40 05/12/2021 urina lysis , dipst ick Clarity-Stat us Cloudy Not Available [facility] [address], [place], [address], 05/12/2021 11:33:40 05/12/2021 urina lysis , dipst ick pH-Status 7.5 Not Available [facility] [address], [place], [address], 05/12/2021 11:33:40 05/12/2021 urina lysis , dipst ick Nitrates-Sta tus positi ve Not Available [facility] [address], [place], [address], 05/12/2021 11:33:40 05/12/2021 urina lysis , dipst ick Blood-Status Small Not Available [facility] [address], [place], [address], 05/12/2021 11:33:40 05/12/2021 urina lysis , dipst ick Leuko-Status Large Not Available [facility] [address], [place], [address], 05/12/2021 11:33:40 05/06/20 21 05/06/2021 URINE CULTU RE final report MICROB IOLOGY RESULT S abnormal Not Available [facility] [place] [address] [facility] [address], [place], [address], 05/08/2021 07:39:35 10/07/19 22 10/05/2021 US, kidne y No observ ation record ed. [address] Radiology Department [address] [place], [address], 09/28/2022 13:47:50 Result Notes None recorded. Procedures Surgical History Date Name Laterality Status Provider Name and Address Organization Details Recorded Time 4 COMPLEX VISIT completed Jono Pagan MD [address] [facility],[address], [place], [address], [place] [facility] 11/01/2023 08:09:54 excision of pressure injury completed Jono Pagan MD [address] [facility],[address], [place], [address], [place] [facility] 09/28/2022 11:00:08 maintenance procedure for cardiac pacemaker system completed Veronika hwang [facility] 11/01/2023 11:05:10 Imaging Results Imaging Date Name Status LastModified by Organiz ation Details LastModified Time 10/05/2021 US, kidney completed [address] Radiology Department [address] [place], [address], 09/28/2022 13:47:50 Procedure Notes None recorded. Medical Equipment None Reported. Allergies Allergen ID Allergen Name Allergen Category Reaction Reaction Severity Criticality Documentation Date Start Date Code Code System Note Provider Name and Address Organization Details Recorded Time 308577 Medicinal product containin g cephalosp pao and acting as antibacte rial agent (product) medicatio n Not available Not available Not available 09/27/2021 73022 9009 SNOMED Nasreen Maritza hwang [facility] 2 12:43:20 852551 shellfish derived food,medi cation Not available Not available Not available 11/01/2023 Veronika Arianna hwang, [place] - [facility] 4 11:03:08 Medications Name Sig Start [...] Updated DateTime 09/28/2022 182.88 cm 19.4 kg/m2 30371.71 g Veronika Begum [facility] 09/28/2022 10:55:01 Date Recorded Body height Body mass index (BMI) Body weight Provider Name and Address Organization Details Last Updated DateTime 04/28/2023 182.88 cm 19.4 kg/m2 05428.71 g Mindy Malone [facility] 04/28/2023 11:39:29 Date Recorded Body height Body mass index (BMI) Body weight Provider Name and Address Organization Details Last Updated DateTime 10/12/2023 182.88 cm 19.4 kg/m2 81366.71 g Veronika Begum [facility] 10/12/2023 12:26:19 Date Recorded Body height Body mass index (BMI) Body weight Provider Name and Address Organization Details Last Updated DateTime 11/01/2023 182.88 cm 18.7 kg/m2 76808.75 g Veronika Begum [facility] 11/01/2023 11:02:57 Date Recorded Body height Body mass index (BMI) Body weight Provider Name and Address Organization Details Last Updated DateTime 05/06/2021 182.88 cm 19.4 kg/m2 47505.71 g Chelsea Medrano [facility] 05/06/2021 12:47:45 Date Recorded Body height Body mass index (BMI) Body weight Provider Name and Address Organization Details Last Updated DateTime 09/27/2021 182.88 cm 19.4 kg/m2 34499.71 g Nasreen Salas [facility] 09/27/2021 12:43:07 Social History Question Answer Notes LastModified by Organizat ion Details LastModified Time Tobacco Smoking Status [facility] 14:55:09 What Is Your [...] Recorded Time IPV 11/19/2004 completed Mindy hwang [facility] 04/28/2023 11:39:35 COVID-19, mRNA, LNP-S, PF, 30 mcg/0.3 mL dose 08/20/2020 completed Mindy hwang [facility] 04/28/2023 11:39:35 COVID-19, mRNA, LNP-S, PF, 30 mcg/0.3 mL dose 09/14/2020 completed Mindy hwang [facility] 04/28/2023 11:39:35 Pneumococcal conjugate PCV20, polysaccharide SKQ390 conjugate, adjuvant, PF 12/01/2022 completed Mindy hwang [facility] 04/28/2023 11:39:35 influenza, unspecified formulation 05/24/2006 completed Mindy hwang [facility] 04/28/2023 11:39:35 Tdap 09/01/2006 completed Mindy hwang [facility] 04/28/2023 11:39:35 [facility]26[facility] 11:39:35 zoster live 01/29/2015 completed Mindy hwang [facility] 04/28/2023 11:39:35 Influenza, split virus, trivalent, PF 03/25/2011 completed Mindy hwang [facility] 04/28/2023 11:39:35 Influenza, split virus, trivalent, PF [facility]24[facility] 11:39:35 Td (adult), 2 Lf tetanus toxoid, preservative free, adsorbed 03/21/1997 completed Mindy hwang [facility] 04/28/2023 11:39:35 Hep B, adult 09/01/2006 completed Mindy hwang, [facility] 04/28/2023 11:39:35 Hep B, adult 11/19/2004 completed Mindy hwang, [facility] 04/28/2023 11:39:35 Hep B, adult 03/30/2007 completed Mindy hwang, [facility] 04/28/2023 11:39:35 Hep A, adult 09/30/2002 completed Mindy hwang, [facility] 04/28/2023 11:39:35 Hep A, adult 11/19/2004 completed Mindy hwang [facility] 04/28/2023 11:39:35 Hep A, adult 05/01/2003 completed Mindy hwang [facility] 04/28/2023 11:39:35 typhoid, ViCPs 09/01/2006 completed Mindy hwang [facility] 04/28/2023 11:39:35 typhoid, ViCPs 09/30/2002 completed Mindy hwang [facility] 04/28/2023 11:39:35 Past Encounters Encounter ID Performer Location Encounter Start Date Encounter Closed Date Diagnosis/Indication Diagnosis SNOMED-CT Code [id number] MD KIKE [facility] [address] [place] [address] 02/18/2021 14:23:42 02/19/2021 12:13:21 Neurogenic urinary bladder 846364898 Spinal cord injury 84309 004 Spasm of u rinary bladder 505820533 Recurrent urinary tract infection 427843839 Acute urin estefany tract infection [id number] Marlene Greer [facility] [address] [place] [address] 05/06/2021 11:58:15 05/11/2021 03:52:30 Abnormal urine [id number] Jono Pagna MD [facility] [address] [place] [address] 09/27/2021 12:37:54 10/27/2021 09:29:43 Neurogenic urinary bladder 915526559 Spinal cord injury 81726 004 Spasm of u rinary bladder 317217943 Recurrent urinary tract infection 854223743 [id number] [facility] [address] [place] [address] 09/28/2022 10:53:21 10/01/2022 11:26:52 Neurogenic urinary bladder 480560864 Spinal cord injury 50381 004 Spasm of u rinary bladder 497903738 Recurrent urinary tract infection [id number] Jono Pgaan MD [facility] [address] [place] [address] 04/28/2023 11:30:11 05/04/2023 11:13:13 Neurogenic urinary bladder 943509386 Spinal cord injury 73340 004 Spasm of u rinary bladder 073700939 Recurrent urinary tract infection [id number] [facility] [address] [place] [address] 11/01/2023 10:52:02 11/02/2023 14:01:41 Neurogenic urinary bladder 203730912 Spinal cord injury 32772 004 Spasm of u rinary bladder 977976532 Recurrent urinary tract infection 611112201 Health Concerns Section Related Observation LastModified by Organization Detai ls LastModified Time None Recorded Concern Status LastModified by Organization Details LastModified Time None Recorded Advance Directives Directive None Recorded Payers Encounter Date Sequence Insurance Name Policy Number Policy Quinones Covered Member ID Quinones Member ID Guarantor Name 05/06/2021 [facility] [employer] [id number] Levar Rios [facility] Khanh Rene 09/27/2021 1 [facility] (MEDICARE REPLACEMENT/AD VANTAGE - PPO) [id number] Khanh Rene [id number] Khanh Rene 09/28/2022 [facility] [employer] [id number] Levar Rios [facility] Khanh Rene 04/28/2023 1 [facility] (MEDICARE REPLACEMENT/AD VANTAGE - PPO) [id number] Khanh Rene [id number] Khanh Rene 11/01/2023 [facility] [id number] Levar Rios [facility] Khanh Gordon Edgard Notes Date Note Type Note Provider Name and Address Organization Details Recorded Time 05/06/2021 text/html HPI Notes: Pt he re for UA/UC due to low back ache, cloudy urine with sediment present X 1.5 weeks. pt given cipro 500mg BID pending culture. 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 Jono Pagan MD [address] [place] [address],[address], [address], [facility] 09/27/2021 13:13:14 [...] upper tract abnormality. Jono Pagan MD [address] [facility],[address], [place], [address], [facility] 09/28/2022 13:48:55 [...] since the summer. Jono Pagan MD [address] [facility],[address], [place], [address], [facility] 04/28/2023 12:27:52 [...] catheter when traveling. Jono Pagan MD [address] [facility],[address], [place], [address], [facility] 11/01/2023 23:05:58
--- OUTSIDE RECORDS SUMMARY | 2024-02-19 10:57 | XMS_ITS | Clinical Summary ---
Author Organization [facility] Address [place], [place] [address] Care Team Providers Care Certified Income Tax Preparer Name Role Phone TalibAna Unavailable Alex Mata MD Primary Care Provider + Jak Keys WATER SUPPLY TECHNICIAN Unavailable [phone] Allergies Active Allergy Reactions Criticality Noted Date Comments Blood-Group Specific Substance Other - Describe In Comment Field 04/19/2021 Patient has Sims a (Fya) antibody. Blood products may be delayed. Draw patient 24 hours prior to transfusion. For [facility] testing, draw one red top and two [...] once daily with a meal. 01/17/2024 Active methenamine hippurate (HIPREX) 1 gram tablet Take 1 g by mouth. TWICE DAILY ON DAY 1-3 OF EACH MONTH Active atorvastatin (LIPITOR) 20 mg tabletIndications:P AD (peripheral artery disease) (HC) Take 1 Tablet (20 mg) by mouth once daily. 90 Tablet 02/13/2024 Active nitrofurantoin macrocrystaL (MACRODANTIN) 50 mg capsule Take 50 mg by mouth once daily. 02/01/2024 Discontinued (*Med complete/Reg imen complete/Lev el of care change) atorvastatin (LIPITOR) 20 mg tabletIndications:P AD (peripheral artery disease) (HC) Take 1 Tablet (20 mg) by mouth once daily. 30 Tablet 01/17/2024 02/13/2024 Discontinued (Reorder (E-cancel not sent)) Active Problems Problem Noted Date Diagnosed Date [...] Encounters Date Type Department Care Team Description 02/13/2024 Refill CookBrite Count Includes [facility] [place] [facility] [place] [address] [place] [address] Maria Guadalupe Leong MD Refill Request 02/02/2024 1:04 PM CDT Anesthesia Event [facility] [address] [place] [address] Enrico Perez MD Beulke, Steven William, MARLEN 02/02/2024 10:01 AM CDT - 02/03/2024 1:05 PM CDT Hospital Encounter [facility] [address] [place] [address] Maria Guadalupe Leong MD Taylor, Phillip Norman, MD Erickson, Andrew Richard, MARLEN Discharge Disposition: Home Self Care 02/01/2024 8:53 AM CDT - 02/01/2024 11:59 PM CDT Hospital Encounter [facility] [address] [place] [address] PAD (peripheral artery disease) (HC) 02/01/2024 8:15 AM CDT Office Visit [facility] [address] [place] [address] Raquel Multani MD [facility] (1989 injury//Mixed conductive and sensorineural hearing loss of left ear with restricted hearing of right ear//Bilateral hearing loss, unspecified hearing loss type//Sensorineural hearing loss (SNHL) of right ear with restricted hearing of left ear) 02/01/2024 Travel 01/19/2024 Telephone [facility] [address] [place] [address] Maria Guadalupe Leong MD Surgery Scheduled 01/17/2024 8:00 AM CDT Office Visit [facility] [address] [place] [address] Maria Guadalupe Leong MD Consult (blood flow in the right leg, wounds wont heal, stints in hip 3 yrs ago. blood flow is about 1/2 now) 01/17/2024 Travel 01/02/2024 Travel 12/22/2023 Telephone [facility] [address] [place] [address] Paul Bishop MD Referral 12/13/2023 11:23 AM CDT - 12/13/2023 11:59 PM CDT Hospital Encounter [facility] [address] [place] [address] Sasha Rodriguez PA PAD (peripheral artery disease) (HC) 12/13/2023 Travel 11/28/2023 12:30 PM CDT Office Visit [facility] [address] [place] [address] Clarissa Murray AuD Hearing Aid (consult) 11/27/2023 1:00 PM CDT Office Visit [facility] [address] [place] [address] Angy Israel AuD Hearing Problem (Hearing test) 11/27/2023 Travel 11/23/2023 Travel 11/20/[address] [facility] [phone] Unknown, Doctor from Last 3 Months Immunizations Name Administration [...] Info) Description 03/12/2024 12:30 PM CDT Appointment [facility] [address] [place] [address] 03/12/2024 2:00 PM CDT Office Visit [facility] [address] [place] [address] Maria Guadalupe Leong MD [address] [place] [address] 05/03/2024 Cardiac Device Check [facility] [phone] Health Maintenance Due Date Last Done Comments [...] 12/26/2008, 09/01/2006 Medical Devices Implanted Type Area Heavy Forging Machine Operator Device Identifier Shelf Expiration Date Model / Serial / Lot Standard Pacemaker-12/21 Implanted:11/23 by Judson Jenkins MD (Quantity not on file) Standard Pacemaker Medtronic [id number] / [id number] / Procedures Procedure Name Priority Date/Time Associated [...] RED BLOOD CELLS EA UNIT STAT 02/02/20 24 10:22 AM CDT RED BLOOD CELLS EA UNIT STAT 02/02/20 24 10:22 AM CDT RED BLOOD CELLS EA UNIT STAT 02/02/20 24 10:22 AM CDT RED BLOOD CELLS EA [...] LIPID PANEL Early AM 07/14/2008 3:00 AM KINDER TEACHER from Last 3 Months or Most Recently Relevant to Health Maintenance Results * (ABNORMAL) CBC (02/03/2024 10:42 AM CDT) Only the most recent of2 resultswithin the time period is included. WHITE BLOOD COUNT 5.9 4.5 - 11.0 thou/cu mm 02/03/2024 11:20 AM CDT [facility] RED BLOOD COUNT 3.57(L) 4.30 - 5.90 mil/cu mm 02/03/2024 11:20 AM CDT [facility] HEMOGLOBIN 9.5(L) 13.5 - 17.5 g/dL 02/03/2024 11:20 AM CDT [facility] HEMATOCRIT 30.9(L) 37.0 - 53.0 % 02/03/2024 11:20 AM CDT [facility] MCV 87 80 - 100 fL 02/03/2024 11:20 AM CDT [facility] MCH 26.6 26.0 - 34.0 pg 02/03/2024 11:20 AM CDT [facility] MCHC 30.7(L) 32.0 - 36.0 g/dL 02/03/2024 11:20 AM CDT [facility] RDW 13.5 11.5 - 15.5 % 02/03/2024 11:20 AM CDT [facility] PLATELET COUNT 211 140 - 440 thou/cu mm 02/03/2024 11:20 AM CDT [facility] MPV 8.3 6.5 - 11.0 fL 02/03/2024 11:20 AM CDT [facility] NRBC 0.0 % 02/03/2024 11:20 AM CDT [facility] ABS NRBC 0.0 thou /cu mm 02/03/2024 11:20 AM T [facility] Blood BLOOD SPECIMEN / Unknown Venipuncture / Unknown 02/03/2024 10:42 AM CDT 02/03/2024 10:56 AM CDT [facility] 02/03/2024 11:20 AM CDT Call if Hemoglobin less than 10. Dary Carlos DO HEMATOLOGY [facility] [address] [place] [address], * (ABNORMAL) Basic Metabolic Panel (02/03/2024 10:42 AM CDT) Only the most recent of2 resultswithin the time period is included. SODIUM 139 136 - 145 mmol/L 02/03/2024 11:35 AM CDT [facility] POTASSIUM 4.7 3.5 - 5.1 mmol/L 02/03/2024 11:35 AM CDT [facility] CHLORIDE 107 98 - 107 mmol/L 02/03/2024 11:35 AM CDT [facility] CO2,TOTAL 26 22 - 29 mmol/L 02/03/2024 11:35 AM CDT [facility] ANION GAP 6 5 - 18 02/03/2024 11:35 AM CDT [facility] GLUCOSE 139(H) 70 - 99 mg/dL 02/03/2024 11:35 AM CDT [facility] CALCIUM 8.3(L) 8.8 - 10.2 mg/dL 02/03/2024 11:35 AM CDT [facility] BUN 14 8 - 23 mg/dL 02/03/2024 11:35 AM CDT [facility] CREATININE 0.42(L) 0.70 - 1.20 mg/dL 02/03/2024 11:35 AM CDT [facility] BUN/CREAT RATIO 33(H) 10 - 20 11:35 AM CDT [facility] eGFR >90 >90 mL/min/1.7 3m2 02/03/2024 11:35 AM CDT [facility] Comment:As of [...] 10:56 AM CDT Dary Carlos DO [facility] [address] [place] [address], * SCAN-CARDIAC STRIP (02/03/2024 10:26 AM CDT) [...] Securement/dressing: Biopatch applied, dressing applied. ??Comment: Vessel Pharmacist Technician Additional supplies used to locate vessel: no Needle Catheter size: 20 G. ??Comment:. Catheter length: 4.5 cm. ??Comment: Events: no complications. Enrico Perez MD ANESTHESIA PX N OTE ORDERABLES * (ABNORMAL) ACTIVATED CLOTTING TIME [id number] ACT (02/02/2024 1:59 PM CDT) ACTIVATED CLOTTING TIME, POCT 308(H) 74 - 125 sec 02/02/2024 3:45 PM CDT [facility] Blood BLOOD SPECIMEN / Unknown 02/02/2024 1:59 PM CDT 02/02/2024 3:45 PM CDT Maria Guadalupe Leong MD [facility] [address] 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 [place] [address], * RBC W/O TYPE & SCREEN (02/02/2024 10:27 AM CDT) Pathologist [facility] QUANTITY 4 02/02/2024 10:27 AM CDT [facility] B[facility]OD [facility] Blood BLOOD SPECIMEN / Unknown 02/02/2024 10:22 AM CDT Jono Malone NP BLOOD BANK Performing Organization Address [facility] Co de Phone Number [facility] [address] [place] [address], * DONOR ANTIGEN (02/02/2024 10:22 AM CDT) Pathologist [facility] QUANTITY 4 [facility] BLOOD BANK DONOR ANTIGEN TYPE Donor Antigen Type [facility] BLOOD BANK Jono Malone NP BLOOD BANK Performing Organization Address [facility] Co de Phone Number [facility] [address] [place] [address], * RED BLOOD CELLS EA UNIT (02/02/2024 10:22 AM CDT) Only the most recent of4 resultswithin the time period is included. Pathologist [facility] CROSSMATCH Compatible Compatible [facility] BLOOD [facility] PRODUCT BLOOD TYPE A Rh Positive [facility] BLOOD [facility] PRODUCT ID NUMBER [id number] [facility] B[facility]OD [facility] PRODUCT STATUS /Relea sed [facility] B[facility]OD [facility] PRODUCT DESCRIPTION RBC -1 LR [facility] BLOOD [facility] PRODUCT CODE [id number] [facility] BLOOD BANK Jono Malone NP BLOOD BANK [facility] BLOOD BANK [address] [place] [address], * SCAN-CARDIAC STRIP (02/02/2024 12:00 AM CDT) Narrative 02/02/2024 12:00 AM CDT Ordered by an unspecified provider. Other Clinical Staff OTHER * (ABNORMAL) TYPE & SCREEN (02/01/2024 9:14 AM CDT) ABORH A Rh Positive 02/01/2024 1:43 PM CDT [facility] Comment:Comment: Performed b y [facility] - [facility], [facility] [place] [phone] ANTIBODY SCREEN Positive(A) Negative 02/01/2024 1:43 PM CDT [facility] Comment:Comment: Performed b y [facility], [address] [place] [phone] SPECIMEN EXPIRATION DATE/TIME 02/04/24 23:59 02/01/2024 1:43 PM CDT [facility] Blood BLOOD SPECIMEN / Unknown Venipuncture / Unknown 02/01/2024 9:14 AM CDT 02/01/2024 9:21 AM CDT Maria Guadalupe Leong MD BLOOD BANK Performing Organization Address City/[facility]/ZIP Co de Phone Number [facility] [address] [place] [address] * (ABNORMAL) ANTIBODY IDENTIFICATION LAB USE ONLY (02/01/2024 9:14 AM CDT) [facility] ANTIBODY IDENTIFICATION Anti-Duff y a(A) 02/01/2024 2:49 PM CDT [facility] Comment:Comment: Performed b y Central Laboratory - [facility], [address] [place] [address] S [address], [place] [address] Blood BLOOD SPECIMEN / Unknown Venipuncture / Unknown 02/01/2024 9:14 AM CDT 02/01/2024 9:21 AM CDT Narrative [facility] - 02/01/2024 2:49 [...] laboratory Maria Guadalupe Leong MD BLOOD BANK [facility] [address] [place] [address] * ANTIBODY IDENTIFICATION EACH PANEL (02/01/2024 9:14 AM CDT) [facility] QUANTITY 1 [facility] PANEL JOSÉ MIGUEL ID Panel Antibody ID [facility] Maria Guadalupe Leong MD BLOOD BANK [facility] [address] [place] [address] * SCAN CORRESP-LABORATORY RESULTS (02/01/2024 9:09 AM CDT) Narrative 02/01/2024 9:09 AM CDT Ordered by an unspecified provider. Other Clinical Staff OTHER * US ANKLE BRACHIAL INDEX BILATERAL (12/13/2023 12:19 PM CDT) Anatomical Region Laterality Modality ANKLES, ANKLE L, ANKLE R Ultraso und 12/13/2023 11:2 8 AM CDT Narrative 12/13/2023 2:27 PM CDT VASCULAR ULTRASOUND REPORT MICHEAL RENE Accession#: ?? [id number] : ?1955 ??Study Date: ?? 12/13/2023 11:28:00 AM Age: ?68 years ?? Tech: ? MAD Gender: M ?Referring MD: SASHA RODRIGUEZ Site: [facility] Vascular [place] Study performed: ?Lower extremity segmental pressures, resting [...] FINDINGS: Unable to find pulse for bilateral EMBEDDED SYSTEMS SOFTWARE ENGINEER and DPA pressures. Right toe/brachial index indicates [...] Accreditation Commission (IAC/Vascular), [email or web address]/vascular Report generated by [employer]. ??Final ?? Procedure Note Judah Rodriguez MD - 12/13/2023 VASCULAR ULTRASOUND REPORT MICHEAL RENE : 1955 Study Date: 12/13/2023 11:28:00 AM Age: 68 years Tech: [facility] Gender: M Referring MD: SASHA RODRIGUEZ Site: [facility] Vascular Center Study performed: Lower extremity [...] FINDINGS: Unable to find pulse for bilateral EMBEDDED SYSTEMS SOFTWARE ENGINEER and DPA pressures. Right toe/brachial index indicates [...] theIntersocietal Accreditation Commission (IAC/Vascular),[email or web address] Report generated by [employer]. Final Sasha ANDERSON US * CT ANGIO [...] conjunction with the services provided by the [facility] [place] (I). FINDINGS: Lower Chest: Calcified right pleural [...] as low as reasonably achievable. Dictated by rFank Williamson MD @ 12/13/2023 7:37:54 PM Narrative 12/14/2023 7:10 AM CDT Results are automatically released to your [facility] ([employer]) account once available, in compliance with federal [...] - 1.11 mg/dL 12/13/2023 12:34 PM CDT [facility] Comment:Caution: Patients ta camila Hydroxyurea have falsely increased iStat Creatinine results. Verify creatinine results ordering a Creatinine (11433.2) eGFR >90 >90 mL/min/1.7 3m2 12/13/2023 12:34 PM CDT [facility] Comment:As of 2021, eG [...] Sasha Rodriguez PA CHEMISTRY Performing Organization Address [facility] de Phone Number [facility] [address] [place] [address], * LAB TRACKING EVENT (11/20/2023 11:37 AM CDT) Other (Other) Client Collect / Unknown 11/20/2023 11:37 AM CDT 11/20/2023 9:52 PM CDT Doctor Unknown LAB BILL ONLY Performing Organization Address [facility] de Phone Number [facility] [address] [place] [address], * PATH TISSUE EXAM (11/20/2023 11:37 AM CDT) Case Report Pathology Report ?Case: [id number] ? Authorizing Provider: ??Unknown, Doctor ?Collected: ? 11/20/2023 1137 ? Ordering Location: ? [facility] ?Received: ?11/21/2023 0637 ? Pathologist: ? Francia Aguirre MD ? Specimen: ?Right Heel, R Calcaneus ? 11/24/2023 8:28 AM CDT [facility] [employer] LABORATORY-C ENTRAL LABORATORY Final Diagnosis A) BONE, RIGHT HEEL, BIOPSY: Positive for acute osteomyelitis and chondritis 11/24/2023 8:28 AM CDT [facility] Clinical Information Right heel bone, assess for necrotic tissue and osteomyelitis. 11/24/2023 8:28 AM CDT [facility] [employer] LABORATORY-C ENTRAL LABORATORY Gross Description A) Received in formalin, labeled with the patient's name and date of , is a 1.0 x 0.8 x 0.1 cm aggregate of youngblood-white bone fragments and possible soft tissue. ??The specimen is entirely submitted in 1 cassette following decalcification. FELICITY 11/22/2023 11/24/2023 8:28 AM CDT [facility]ORY Microscopic Description The final diagnosis is based on microscopic examination of appropriate sections of all specimens. 11/24/2023 8:28 AM CDT [facility] [employer] LABORATORY-C ENTRAL LABORATORY Additional Information Interpreted at [facility], Central Laboratory - [address] [address] 11/24/2023 8:28 AM CDT [facility] Other (Right Heel) 11/20/2023 11:37 AM CDT 11/21/2023 6:37 AM CDT Doctor Unknown PATHOLOGY/CYTOLOGY [facility] [address] [address], * Lipid Panel - In AM (07/14/2008 3:00 AM KINDER TEACHER) CHOLESTEROL,TOTAL 141 110 - 199 mg/dL [facility] TRIGLYCERIDES 41 40 - 149 mg/dL [facility] HDL CHOLESTEROL 45 >40 mg/dL [facility] CHOL/HDL RATIO 3.13 <4.51 [facility] LDL CHOLESTEROL 88 <131 mg/dL [facility] PATIENT STATUS Fasting [facility] Blood specimen (specimen) BLOOD SPECIMEN / Unknown 07/14/2008 3:00 AM KINDER TEACHER 07/14/2008 1:52 AM KINDER TEACHER Phyllis Sánchez MD CHEMISTRY [facility] LABORATORY INTERNAL ZIP [address] [address] from Last 3 Months or Most Recently [...] 12 months since positive culture): resides in acute/halfway care, receiving hemodialysis, has chronic open wounds/skin [...] 6:44 AM 03/14/2016 5:37 PM Care Teams Certified Income Tax Preparer Relationship Specialty Start Date End Date Alex Mata MD [address] [place] [address] PCP - General Family Practice 02/04/20 Ana Mayers [address] [place] [address] Nurse Practitioner 03/02/11 Jak Keys NP [address] [place] [address] Nurse Practitioner Nurse Practitioner - Adult 10/30/23
--- NOTE | 2024-02-19 12:30 | CRLHL7_ITS ---
For Patients: As a result of the Century Cures Act, medical imaging exams and procedure reports are released immediately into your electronic medical record. You may view this report before your referring provider. If you have questions, please contact your health care provider. INDICATION: HBO Clearance TECHNIQUE: Chest 2 views COMPARISON: 11/07/2022 FINDINGS: Cardiovascular and mediastinum: Cardiac silhouette is mildly prominent. Lungs and pleural spaces: Bibasilar scarring with changes of chronic bronchitis. No acute infiltrate. No pulmonary edema or pleural effusion. Bones and soft tissues: Degenerative changes. IMPRESSION: No acute findings. Dictated by Alex Hong MD @ 02/20/2024 8:17:37 AM (Electronically Signed)
== END 2024-02-19 10:55 | disposition home or self-care (01) ==
PROVIDERS: PCP Family Medicine; Visit Provider Family Medicine
DX: M86.671 Other chronic osteomyelitis, right ankle and foot (principal); L89.894 Pressure ulcer of other site, stage 4; L89.614 Pressure ulcer of right heel, stage 4; L89.514 Pressure ulcer of right ankle, stage 4; L89.314 Pressure ulcer of right buttock, stage 4; L89.893 Pressure ulcer of other site, stage 3; Z95.0 Presence of cardiac pacemaker
CPT/HCPCS: 11042; 11045; 71046; G0463

== ENCOUNTER 2024-02-21 08:00 | Outpatient (RCR) | payer OTHER, SELFPAY | END 2024-02-21 23:59 | disposition home or self-care (01) | LOC: WOUND 08:00 | PROVIDERS: PCP Family Medicine; Visit Provider Surgery | DX: M86.671 Other chronic osteomyelitis, right ankle and foot (principal); L89.614 Pressure ulcer of right heel, stage 4; L89.894 Pressure ulcer of other site, stage 4; L89.314 Pressure ulcer of right buttock, stage 4; L89.893 Pressure ulcer of other site, stage 3; Z99.3 Dependence on wheelchair; H60.311 Diffuse otitis externa, right ear | CPT/HCPCS: G0277 ==

== ENCOUNTER 2024-02-26 10:30 | Outpatient (CLI) | payer OTHER, SELFPAY ==
--- OUTSIDE RECORDS SUMMARY | 2024-02-27 12:30 | XMS_ITS | Data Portability ---
Author Organization [facility], [facility] Address [address] [place] [address] Care Team Providers Care Drill Press Set Up Operator Name Role Phone CHETNA MERAZ Primary Care Provider [phone] RAHUL OCONNOR Machine Lead Burner [phone] Assessment Encounter Date Assessment Date Assessment LastModified [...] None recorded. Lab culture, urine 2020 021 [facility], [address], [place], [address], 07:39:35 urinalysis, dipstick 2020 021 marie Not available 10/20/202 1 11:34:22 Referral None recorded. Procedures None recorded. Surgeries None recorded. Imaging US, kidney 2021 022 [facility], [address] [facility] [place], [address], 2 09:00:29 Medication Orders oxybutynin chloride ER 15 mg tablet,exte nded release 24 hr 2021 022 [facility]70861, [address], [place], [place], [id number], 2 12:53:22 nitrofurant oin macrocrysta l 50 mg capsule [address] [facility]89013, [address], [place], [place], [id number], 4 08:10:56 nitrofurant oin macrocrysta l 50 mg capsule [address] [facility]93529, [address], [place], [place], [id number], 4 08:10:56 oxybutynin chloride ER 15 mg tablet,exte nded release 24 hr 2022 023 [facility] #79572, [address] , [place], [place], [id number], 3 12:15:06 methenamine hippurate 1 gram tablet [address] [facility]42003, [address] , [place], [place], [id number], 4 23:05:30 methenamine hippurate 1 gram tablet 2023 024 [facility] #16380, [address] , [place], [place], [id number], 4 23:05:37 oxybutynin chloride ER 15 mg tablet,exte nded release 24 hr 2023 024 [facility]009, [address] , [place], [id number], 4 23:04:50 Patient TargetsNo targets recorded. Patient InstructionsNo instructions recorded. Reason for Referral None Reported. Results Created Date Observation Date Name Description Value Unit Range Abnormal Flag LastModifiedBy Organization Detail LastModifiedTime 05/12/2021 urina lysis , dipst ick Color-Status Yellow Not Available [facility] [address], [place], [address], 05/12/2021 11:33:40 05/12/2021 urina lysis , dipst ick Clarity-Stat us Cloudy Not Available [facility] [address], [place], [address], 05/12/2021 11:33:40 05/12/2021 urina lysis , dipst ick pH-Status 7.5 Not Available [facility] [address], [place], [address], 05/12/2021 11:33:40 05/12/2021 urina lysis , dipst ick Nitrates-Sta tus positi ve Not Available [facility] [address], [place], [address], 05/12/2021 11:33:40 05/12/2021 urina lysis , dipst ick Blood-Status Small Not Available [facility] [address], [place], [address], 05/12/2021 11:33:40 05/12/2021 urina lysis , dipst ick Leuko-Status Large Not Available [facility] [address], [place], [address], 05/12/2021 11:33:40 05/06/20 21 05/06/2021 URINE CULTU RE final report MICROB IOLOGY RESULT S abnormal Not Available [facility] [address] [facility] [address], [place], [address], 05/08/2021 07:39:35 10/07/19 22 10/05/2021 US, kidne y No observ ation record ed. [address] Radiology Department [address] [place], [address], 09/28/2022 13:47:50 Result Notes None recorded. Procedures Surgical History Date Name Laterality Status Provider Name and Address Organization Details Recorded Time 4 COMPLEX VISIT completed Jono Pagna MD [address] [facility],[address], [place], [address], [place] [facility] 11/01/2023 08:09:54 excision of pressure injury completed Jono Pagan MD [address] [facility],[address], [place], [address], [place] [facility] 09/28/2022 11:00:08 maintenance procedure for cardiac pacemaker system completed Veronika hwang [facility] 11/01/2023 11:05:10 Imaging Results Imaging Date Name Status LastModified by Organiz ation Details LastModified Time 10/05/2021 US, kidney completed [address] Radiology Department [address] [place], [address], 09/28/2022 13:47:50 Procedure Notes None recorded. Medical Equipment None Reported. Allergies Allergen ID Allergen Name Allergen Category Reaction Reaction Severity Criticality Documentation Date Start Date Code Code System Note Provider Name and Address Organization Details Recorded Time 237120 Medicinal product containin g cephalosp pao and acting as antibacte rial agent (product) medicatio n Not available Not available Not available 09/27/2021 16576 9009 SNOMED Nasreen Maritza hwang [facility] 2 12:43:20 158499 shellfish derived food,medi cation Not available Not available Not available 11/01/2023 Veronika Arianna hwang, [place] - [facility] 4 11:03:08 Medications Name Sig Start [...] Updated DateTime 09/28/2022 182.88 cm 19.4 kg/m2 41425.71 g Veronika Begum [facility] 09/28/2022 10:55:01 Date Recorded Body height Body mass index (BMI) Body weight Provider Name and Address Organization Details Last Updated DateTime 04/28/2023 182.88 cm 19.4 kg/m2 92093.71 g Mindy Malone [facility] 04/28/2023 11:39:29 Date Recorded Body height Body mass index (BMI) Body weight Provider Name and Address Organization Details Last Updated DateTime 10/12/2023 182.88 cm 19.4 kg/m2 29111.71 g Veronika Begum [facility] 10/12/2023 12:26:19 Date Recorded Body height Body mass index (BMI) Body weight Provider Name and Address Organization Details Last Updated DateTime 11/01/2023 182.88 cm 18.7 kg/m2 90425.75 g Veronika Begum [facility] 11/01/2023 11:02:57 Date Recorded Body height Body mass index (BMI) Body weight Provider Name and Address Organization Details Last Updated DateTime 05/06/2021 182.88 cm 19.4 kg/m2 47042.71 g Chelsea Medrano [facility] 05/06/2021 12:47:45 Date Recorded Body height Body mass index (BMI) Body weight Provider Name and Address Organization Details Last Updated DateTime 09/27/2021 182.88 cm 19.4 kg/m2 60400.71 g Nasreen Salas [facility] 09/27/2021 12:43:07 Social History Question Answer Notes LastModified by Organizat ion Details LastModified Time Tobacco Sm[facility] Status [facility] 14:55:09 What Is Your Level [...] Recorded Time IPV 11/19/2004 completed Mindy hwang [facility] 04/28/2023 11:39:35 COVID-19, mRNA, LNP-S, PF, 30 mcg/0.3 mL dose 08/20/2020 completed Mindy hwang [facility] 04/28/2023 11:39:35 COVID-19, mRNA, LNP-S, PF, 30 mcg/0.3 mL dose 09/14/2020 completed Mindy hwang [facility] 04/28/2023 11:39:35 Pneumococcal conjugate PCV20, polysaccharide SHA622 conjugate, adjuvant, PF 12/01/2022 completed Mindy hwang [facility] 04/28/2023 11:39:35 influenza, unspecified formulation 05/24/2006 completed Mindy hwang [facility] 04/28/2023 11:39:35 Tdap 09/01/2006 completed Mindy hwang [facility] 04/28/2023 11:39:35 Tdap 12/26/2008 [facility] 11:39:35 zoster live 01/29/2015 completed Mindy hwang [facility] 04/28/2023 11:39:35 Influenza, split virus, trivalent, PF 03/25/2011 completed Mindy hwang [facility] 04/28/2023 11:39:35 Influenza, split virus, trivalent, PF 05/24/2012 [facility] 11:39:35 Td (adult), 2 Lf tetanus toxoid, preservative free, adsorbed 03/21/1997 completed Mindy hwang [facility] 04/28/2023 11:39:35 Hep B, adult 09/01/2006 completed Mindy hwang, [facility] 04/28/2023 11:39:35 Hep B, adult 11/19/2004 completed Mindy hwang, [facility] 04/28/2023 11:39:35 Hep B, adult 03/30/2007 completed Mindy hwang, [facility] 04/28/2023 11:39:35 Hep A, adult 09/30/2002 completed Mindy hwang, [facility] 04/28/2023 11:39:35 Hep A, adult 11/19/2004 completed Mindy hwang [facility] 04/28/2023 11:39:35 Hep A, adult 05/01/2003 completed Mindy hwang [facility] 04/28/2023 11:39:35 typhoid, ViCPs 09/01/2006 completed Mindy hwang [facility] 04/28/2023 11:39:35 typhoid, ViCPs 09/30/2002 completed Mindy hwang [facility] 04/28/2023 11:39:35 Past Encounters Encounter ID Performer Location Encounter Start Date Encounter Closed Date Diagnosis/Indication Diagnosis SNOMED-CT Code [id number] MD KIKE [facility] [address] [place] [address] 02/18/2021 14:23:42 02/19/2021 12:13:21 Neurogenic urinary bladder 578346115 Spinal cord injury 74572 004 Spasm of u rinary bladder 385281737 Recurrent urinary tract infection 544925969 Acute urin estefany tract infection [id number] Marlene Greer [facility] [address] [place] [address] 05/06/2021 11:58:15 05/11/2021 03:52:30 Abnormal urine [id number] Jono Pagan MD [facility] [address] [place] [address] 09/27/2021 12:37:54 10/27/2021 09:29:43 Neurogenic urinary bladder 348328743 Spinal cord injury 45275 004 Spasm of u rinary bladder 410548570 Recurrent urinary tract infection 040660146 [id number] [facility] [address] [place] [address] 09/28/2022 10:53:21 10/01/2022 11:26:52 Neurogenic urinary bladder 299752620 Spinal cord injury 65773 004 Spasm of u rinary bladder 240082530 Recurrent urinary tract infection [id number] Jono Pagan MD [facility] [address] [place] [address] 04/28/2023 11:30:11 05/04/2023 11:13:13 Neurogenic urinary bladder 908626823 Spinal cord injury 81441 004 Spasm of u rinary bladder 147107188 Recurrent urinary tract infection [id number] [facility] [address] [place] [address] 11/01/2023 10:52:02 11/02/2023 14:01:41 Neurogenic urinary bladder 399467907 Spinal cord injury 21824 004 Spasm of u rinary bladder 891596676 Recurrent urinary tract infection 568969187 Health Concerns Section Related Observation LastModified by Organization Detai ls LastModified Time None Recorded Concern Status LastModified by Organization Details LastModified Time None Recorded Advance Directives Directive None Recorded Payers Encounter Date Sequence Insurance Name Policy Number Policy Quinones Covered Member ID Quinones Member ID Guarantor Name 05/06/2021 [facility] [employer] [id number] Levar Rios [facility] Khanh Rene 09/27/2021 1 [facility] (MEDICARE REPLACEMENT/AD VANTAGE - PPO) [id number] Khanh Rene [id number] Khanh Rene 09/28/2022 [employer] [employer] [id number] Levar Rios [facility] Khanh Rene 04/28/2023 1 [facility] (MEDICARE REPLACEMENT/AD VANTAGE - PPO) [id number] Khanh Rene [id number] Khanh Rene 11/01/2023 [facility] [id number] Levar Rios [facility] Khanh Gordon [place] Notes Date Note Type Note Provider Name and Address Organization Details Recorded Time 05/06/2021 text/html HPI Notes: Pt he re for UA/UC due to low back ache, cloudy urine with sediment present X 1.5 weeks. pt given cipro 500mg BID pending culture. 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 Jono Pagan MD [address] [place] [address],[address], [address], [facility] 09/27/2021 13:13:14 09/28/2022 text/html [...] tract abnormality. Jono Pagan MD [address] [facility],[address], [place], [address], [facility] 09/28/2022 13:48:55 04/28/2023 text/html [...] the summer. Jono Pagan MD [address] [facility],[address], [place], [address], [facility] 04/28/2023 12:27:52 11/01/2023 text/html [...] when traveling. Jono Pagan MD [address] [facility],[address], [place], [address], [facility] 11/01/2023 23:05:58
--- OUTSIDE RECORDS SUMMARY | 2024-02-27 12:30 | XMS_ITS | Clinical Summary ---
Author Organization [facility] Address [place], [place] [address] Care Team Providers Care Clerical Aide Name Role Phone TalibAna Unavailable Alex Mata MD Primary Care Provider + Jak Keys [address] [facility] Unavailable [phone] Allergies Active Allergy Reactions Criticality Noted Date Comments Blood-Group Specific Substance Other - Describe In Comment Field 04/19/2021 Patient has Sims a (Fya) antibody. Blood products may be delayed. Draw patient 24 hours prior to transfusion. For [employer] testing, draw one red top and two [...] Overview: 09/20/23 bilateral lower extremity arterial ultrasound ([facility]) S/P flap graft 03/06/2020 Neurogenic [...] Type Department Care Team Description 02/13/2024 Refill [facility] [place] [facility] [place] [address] [place] [address] Maria Guadalupe Leong MD Refill Request 02/02/2024 1:04 PM CDT Anesthesia Event [facility] [address] [place] [address] Enrico Perez MD Beulke, Steven William, MARLEN 02/02/2024 10:01 AM CDT - 02/03/2024 1:05 PM CDT Hospital Encounter [facility] [address] [place] [address] Maria Guadalupe Leong MD Taylor, Phillip Norman, MD Erickson, Andrew Richard, MARLEN Discharge Disposition: Home Self Care 02/01/2024 8:53 AM CDT - 02/01/2024 11:59 PM CDT Hospital Encounter [facility] [address] [place] [address] PAD (peripheral artery disease) (HC) 02/01/2024 8:15 AM CDT Office Visit [facility] [address] [place] [address] Raquel Multani MD [facility] (1989 injury//Mixed conductive and sensorineural hearing loss of left ear with restricted hearing of right ear//Bilateral hearing loss, unspecified hearing loss type//Sensorineural hearing loss (SNHL) of right ear with restricted hearing of left ear) 02/01/2024 Travel 01/19/[address] [facility] [address] [place] [address] Maria Guadalupe Leong MD Surgery Scheduled 01/17/2024 8:00 AM CDT Office Visit [facility] [address] [place] [address] Maria Guadalupe Leong MD Consult (blood flow in the right leg, wounds wont heal, stints in hip 3 yrs ago. blood flow is about 1/2 now) 01/17/2024 Travel 01/02/2024 Travel 12/22/[address] [facility] [place] [facility] [address] [place] [address] Paul Bishop MD Referral 12/13/2023 11:23 AM CDT - 12/13/2023 11:59 PM CDT Hospital Encounter [facility] [address] [place] [address] Sasha Rodriguez PA PAD (peripheral artery disease) (HC) 12/13/2023 Travel 11/28/2023 12:30 PM CDT Office Visit [facility] [address] [place] [address] Terri, Adalberto Pettit Hearing Aid (consult) 11/27/2023 1:00 PM CDT Office Visit [facility] [address] [place] [address] Angy Israel AuD Hearing Problem (Hearing test) 11/27/2023 Travel from Last 3 Months Immunizations Name [...] Info) Description 03/12/2024 12:30 PM CDT Appointment [facility] [address] [place] [address] 03/12/2024 2:00 PM CDT Office Visit [facility] [address] [place] [address] Maria Guadalupe Leong MD [address] [place] [address] 05/03/[address] [facility] [phone] Health Maintenance Due Date Last Done Comments [...] 12/26/2008, 09/01/2006 Medical Devices Implanted Type Area Propeller Mechanic Device Identifier Shelf Expiration Date Model / Serial / Lot Standard Pacemaker-12/21 Implanted:11/23 by Judson Jenkins MD (Quantity not on file) Standard Pacemaker Medtronic [id number] / [id number] / Procedures Procedure Name Priority Date/Time Associated [...] UNIT STAT 02/02/20 24 10:22 AM CDT SCAN-CARDIAC STRIP 02/02/2024 12 [...] (HC) CREATININE,ISTAT Routine 12/13/2023 9:54 AM CDT LIPID PANEL Early AM 07/14/2008 3:00 AM INTEGRATED CIRCUITS INSPECTOR from Last 3 Months or Most Recently Relevant to Health Maintenance Results * (ABNORMAL) CBC (02/03/2024 10:42 AM CDT) Only the most recent of2 resultswithin the time period is included. WHITE BLOOD COUNT 5.9 4.5 - 11.0 thou/cu mm 02/03/2024 11:20 AM CDT [facility] RED BLOOD COUNT 3.57(L) 4.30 - 5.90 mil/cu mm 02/03/2024 11:20 AM CDT [facility] HEMOGLOBIN 9.5(L) 13.5 - 17.5 g/dL 02/03/2024 11:20 AM CDT [facility] HEMATOCRIT 30.9(L) 37.0 - 53.0 % 02/03/2024 11:20 AM CDT [facility] MCV 87 80 - 100 fL 02/03/2024 11:20 AM CDT [facility] MCH 26.6 26.0 - 34.0 pg 02/03/2024 11:20 AM CDT [facility] MCHC 30.7(L) 32.0 - 36.0 g/dL 02/03/2024 11:20 AM CDT [facility] RDW 13.5 11.5 - 15.5 % 02/03/2024 11:20 AM CDT [facility] PLATELET COUNT 211 140 - 440 thou/cu mm 02/03/2024 11:20 AM CDT [facility] MPV 8.3 6.5 - 11.0 fL 02/03/2024 11:20 AM CDT [facility] NRBC 0.0 % 02/03/2024 11:20 AM CDT [facility] ABS NRBC 0.0 thou /cu mm 02/03/2024 11:20 AM CDT [facility] Blood BLOOD SPECIMEN / Unknown Venipuncture / Unknown 02/03/2024 10:42 AM CDT 02/03/2024 10:56 AM CDT [facility] - 02/03/2024 11:20 AM CDT Call if Hemoglobin less than 10. Dary Carlos MD HEMATOLOGY [facility] [address] [place] [id number], * (ABNORMAL) Basic Metabolic Panel (02/03/2024 10:42 AM CDT) Only the most recent of2 resultswithin the time period is included. SODIUM 139 136 - 145 mmol/L 02/03/2024 11:35 AM CDT [facility] POTASSIUM 4.7 3.5 - 5.1 mmol/L 02/03/2024 11:35 AM CDT [facility] CHLORIDE 107 98 - 107 mmol/L 02/03/2024 11:35 AM CDT [facility] CO2,TOTAL 26 22 - 29 mmol/L 02/03/2024 11:35 AM CDT [facility] ANION GAP 6 5 - 18 02/03/2024 11:35 AM CDT [facility] GLUCOSE 139(H) 70 - 99 mg/dL 02/03/2024 11:35 AM CDT [facility] CALCIUM 8.3(L) 8.8 - 10.2 mg/dL 02/03/2024 11:35 AM CDT [facility] BUN 14 8 - 23 mg/dL 02/03/2024 11:35 AM CDT [facility] CREATININE 0.42(L) 0.70 - 1.20 mg/dL 02/03/2024 11:35 AM CDT [facility] BUN/CREAT RATIO 33(H) 10 - 20 11:35 AM CDT [facility] eGFR >90 >90 mL/min/1.7 3m2 02/03/2024 11:35 AM CDT [facility] Comment:As of 2021, eG FR is calculated by the CKD-EPI creatinine equation without race adjustment. ??eGFR can be influenced by muscle mass, exercise, and diet. ??The reported eGFR is an estimation only and is only applicable if the renal function is stable. Blood BLOOD SPECIMEN / Unknown Venipuncture / Unknown 02/03/2024 10:42 AM CDT 02/03/2024 10:56 AM CDT Dary Carlos MD CHEMISTRY [facility] [address] [place] [address], * SCAN-CARDIAC STRIP (02/03/2024 10:26 AM CDT) [...] Securement/dressing: Biopatch applied, dressing applied. ??Comment: Vessel Supervisor Painting Department Additional supplies used to locate vessel: no Needle Catheter size: 20 G. ??Comment:. Catheter length: 4.5 cm. ??Comment: Events: no complications. Enrico Perez MD ANESTHESIA PX N OTE ORDERABLES * (ABNORMAL) ACTIVATED CLOTTING TIME [id number] ACT (02/02/2024 1:59 PM CDT) [facility] Signature ACTIVATED CLOTTING TIME, POCT 308(H) 74 - 125 sec 02/02/2024 3:45 PM CDT [facility] Blood BLOOD SPECIMEN / Unknown 02/02/2024 1:59 PM CDT 02/02/2024 3:45 PM CDT Maria Guadalupe Leong MD HEMATOLOGY [facility] [address] [place] [address], * HCHG TUBE PR1, HCHG STYLET PR1, [...] yes Difficulty: 0 (not difficult) Howard Bull CRNA ANESTHESIA PX NOTE ORDERABLES * EXTRA TUBE GOLD/SST (02/02/2024 10:57 AM CDT) Blood BLOOD SPECIMEN / Unknown Extra Tube / Unknown 02/02/2024 10:57 AM CDT 02/02/2024 12:40 PM CDT Maria Guadalupe Leong MD LABORATORY [facility] [address] [place] [address], * RBC W/O TYPE & SCREEN (02/02/2024 10:27 AM CDT) QUANTITY 4 02/02/2024 10:27 AM CDT [facility] [employer]-CENTRAL LAB BLOOD BANK Blood BLOOD SPECIMEN / Unknown 02/02/2024 10:22 AM CDT Jono Malone NP BLOOD BANK Performing Organization Address [facility]/ZIP Co de Phone Number [facility]-CENTRAL LAB BLOOD BANK [address] [place] [address], * DONOR ANTIGEN (02/02/2024 10:22 AM CDT) Pathologist [facility] QUANTITY 4 [facility] LAB-CENTRAL LAB BLOOD BANK DONOR ANTIGEN TYPE Donor Antigen Type [facility]-C[facility]AL LAB BLOOD BANK Jono Malone NP BLOOD BANK Performing Organization Address [facility] Co de Phone Number [facility] LAB-CENTRAL LAB BLOOD BANK [address] [place] [address], [place] [phone] * RED BLOOD CELLS EA UNIT (02/02/2024 10:22 AM CDT) Only the most recent of4 resultswithin the time period is included. Pathologist [facility] CROSSMATCH Compatible Compatible [facility] PRODUCT BLOOD TYPE A Rh Positive [facility] PRODUCT ID NUMBER [id number] [facility] [employer]-CENTRAL LAB BLOOD BANK PRODUCT STATUS /Relea sed [facility]-CENTRAL LAB BLOOD BANK PRODUCT DESCRIPTION RBC -1 LR [facility]-CENTRAL LAB BLOOD BANK PRODUCT CODE [id number] [facility] LAB-CENTRAL LAB BLOOD BANK Jono Malone NP BLOOD BANK [facility] LAB-CENTRAL LAB BLOOD BANK [address] [place] [address], * SCAN-CARDIAC STRIP (02/02/2024 12:00 AM CDT) Narrative 02/02/2024 12:00 AM CDT Ordered by an unspecified provider. Other Clinical Staff OTHER * (ABNORMAL) TYPE & SCREEN (02/01/2024 9:14 AM CDT) [facility] ABORH A Rh Positive 02/01/2024 1:43 PM CDT [facility] BLOOD BANK Comment:Comment: Performed b y Central Laboratory - [facility], [address] [place] [address], [place] [address] ANTIBODY SCREEN Positive(A) Negative 02/01/2024 1:43 PM CDT [facility] BLOOD BANK Comment:Comment: Performed b y Central Laboratory - [facility], [address] [place] [address] [address], [place] [address] SPECIMEN EXPIRATION DATE/TIME 02/04/24 23:59 02/01/2024 1:43 PM CDT [facility] BLOOD BANK Blood BLOOD SPECIMEN / Unknown Venipuncture / Unknown 02/01/2024 9:14 AM CDT 02/01/2024 9:21 AM CDT Maria Guadalupe Leong MD BLOOD BANK [facility] BLOOD BANK [address] [place] [address] * (ABNORMAL) ANTIBODY IDENTIFICATION LAB USE ONLY (02/01/2024 9:14 AM CDT) [facility] ANTIBODY IDENTIFICATION Anti-Duff y a(A) 02/01/2024 2:49 PM CDT [facility] BLOOD BANK Comment:Comment: Performed b y Central Laboratory - [facility], [address] [place] [address] S [address], [place] [address] Blood BLOOD SPECIMEN / Unknown Venipuncture / Unknown 02/01/2024 9:14 AM CDT 02/01/2024 9:21 AM CDT Narrative [facility] BLOOD BANK - 02/01/2024 2:49 PM [...] laboratory Maria Guadalupe Leong MD BLOOD BANK [facility] BLOOD BANK [address] [place] [address] * ANTIBODY IDENTIFICATION EACH PANEL (02/01/2024 9:14 AM CDT) QUANTITY 1 [facility] BLOOD BANK PANEL JOSÉ MIGUEL ID Panel Antibody ID [facility] BLOOD BANK Maria Guadalupe Leong MD BLOOD BANK [facility] BLOOD BANK [address] [place] [address] * SCAN CORRESP-LABORATORY RESULTS (02/01/2024 9:09 AM CDT) Narrative 02/01/2024 9:09 AM CDT Ordered by an unspecified provider. Other Clinical Staff OTHER * US ANKLE BRACHIAL INDEX BILATERAL (12/13/2023 12:19 PM CDT) Anatomical Region Laterality Modality ANKLES, ANKLE L, ANKLE R Ultraso und 12/13/2023 11:2 8 AM CDT Narrative 12/13/2023 2:27 PM CDT VASCULAR ULTRASOUND REPORT MICHEAL RENE Accession#: ?? [id number] : ?1955 ??Study Date: ?? 12/13/2023 11:28:00 AM Age: ?68 years ?? Tech: ? MAD Gender: M ?Referring MD: SASHA RODRIGUEZ Site: [facility] Study performed: ?Lower extremity segmental pressures, [...] FINDINGS: Unable to find pulse for bilateral CONSUMER CREDIT COUNSELOR and DPA pressures. Right toe/brachial index indicates [...] Accreditation Commission (IAC/Vascular), [email or web address] Report generated by [employer]. ??Final ?? Procedure Note Judah Rodriguez MD - 12/13/2023 VASCULAR ULTRASOUND REPORT MICHEAL RENE : 1955 Study Date: 12/13/2023 11:28:00 AM Age: 68 years Tech: AREN Gender: M Referring MD: SASHA RODRIGUEZ Site: [facility] Vascular Center Study performed: Lower extremity segmental [...] FINDINGS: Unable to find pulse for bilateral CONSUMER CREDIT COUNSELOR and DPA pressures. Right toe/brachial index indicates [...] theIntersocietal Accreditation Commission (IAC/Vascular),[email or web address] Report generated by [employer]. Final Sasha ANDERSON US * CT ANGIO [...] the [facility] [place] ([facility]). FINDINGS: Lower Chest: Calcified right pleural [...] CDT Results are automatically released to your [employer] account once available, in compliance with federal [...] - 1.11 mg/dL 12/13/2023 12:34 PM CDT [facility] Comment:Caution: Patients ta camila Hydroxyurea have falsely increased iStat Creatinine results. Verify creatinine results ordering a Creatinine (76937.2) eGFR >90 >90 mL/min/1.7 3m2 12/13/2023 12:34 PM CDT [facility] Comment:As of 2021, eG FR is calculated by the CKD-EPI creatinine equation without race adjustment. eGFR can be influenced by muscle mass, exercise, and diet. The reported eGFR is an estimation only and is only applicable if the renal function is stable. Blood BLOOD SPECIMEN / Unknown 12/13/2023 9:54 AM CDT 12/13/2023 12:34 PM CDT Sasha ANDERSON CHEMISTRY [facility]ORY-C[facility]AL LABORATORY [address] [address], * Lipid Panel - In AM (07/14/2008 3:00 AM INTEGRATED CIRCUITS INSPECTOR) CHOLESTEROL,TOTAL 141 110 - 199 mg/dL [facility] TRIGLYCERIDES 41 40 - 149 mg/dL [facility] HDL CHOLESTEROL 45 >40 mg/dL [facility] CHOL/HDL RATIO 3.13 <4.51 [facility] LDL CHOLESTEROL 88 <131 mg/dL [facility] PATIENT STATUS Fasting [facility] Blood specimen (specimen) BLOOD SPECIMEN / Unknown 07/14/2008 3:00 AM INTEGRATED CIRCUITS INSPECTOR 07/14/2008 1:52 AM INTEGRATED CIRCUITS INSPECTOR Phyllis Sánchez MD CHEMISTRY [facility] INTERNAL ZIP [address] [place] [address] from Last 3 Months or Most Recently [...] 6:44 AM 03/14/2016 5:37 PM Care Teams Clerical Aide Relationship Specialty Start Date End Date Alex Mata MD [address] [place] [address] PCP - General Family Practice 02/04/20 Ana Mayers [address] [place] [address] Nurse Practitioner 03/02/11 Jak Keys NP [address] [place] [address] Nurse Practitioner Nurse Practitioner - Adult 10/30/23
== END 2024-02-26 10:31 | disposition home or self-care (01) ==
LOC: WOUND 02-27 12:28
PROVIDERS: PCP Family Medicine; Visit Provider Nurse Practitioner Family
DX: M86.671 Other chronic osteomyelitis, right ankle and foot (principal); L89.514 Pressure ulcer of right ankle, stage 4; L89.614 Pressure ulcer of right heel, stage 4; L89.894 Pressure ulcer of other site, stage 4; L89.893 Pressure ulcer of other site, stage 3; L89.314 Pressure ulcer of right buttock, stage 4; H60.311 Diffuse otitis externa, right ear; T70.0XXA Otitic barotrauma, initial encounter; Z99.3 Dependence on wheelchair
CPT/HCPCS: 97597; 97598; G0463

== ENCOUNTER 2024-03-01 06:06 | Day surgery (SDC) | payer OTHER, SELFPAY ==
--- OUTSIDE RECORDS SUMMARY | 2024-03-01 06:10 | XMS_ITS | Clinical Summary ---
Author Organization [employer] [facility] Address [place], [place] [address] Care Team Providers Care Plastics Plater Name Role Phone TalibAna Unavailable Alex Mata MD Primary Care Provider + Jak Keys PIPE WASHER Unavailable [phone] Allergies Active Allergy Reactions Criticality Noted Date Comments Blood-Group Specific Substance Other - Describe In Comment Field 04/19/2021 Patient has Sims a (Fya) antibody. Blood products may be delayed. Draw patient 24 hours prior to transfusion. For IEV testing, draw one red top and two [...] Overview: 09/20/23 bilateral lower extremity arterial ultrasound ([facility]) S/P flap graft 03/06/2020 Neurogenic [...] Type Department Care Team Description 02/13/2024 Refill untapt Counts Include 234 Beds At [facility] [place] [address] [place] [address] Maria Guadalupe Leong MD Refill Request 02/02/2024 1:04 PM CDT Anesthesia Event [facility] [address] [place] [address] Enrico Perez MD Beulke, Steven William, MARLEN 02/02/2024 10:01 AM CDT - 02/03/2024 1:05 PM CDT Hospital Encounter [facility] [address] [place] [address] Maria Guadalupe Leong MD Taylor, Phillip Norman, MD Erickson, Andrew Richard, MARLEN Discharge Disposition: Home Self Care 02/01/2024 8:53 AM CDT - 02/01/2024 11:59 PM CDT Hospital Encounter [facility] [address] [place] [address] PAD (peripheral artery disease) (HC) 02/01/2024 8:15 AM CDT Office Visit [facility] [address] [place] [address] Raquel Multani MD [facility] (1989 injury//Mixed conductive and sensorineural hearing loss of left ear with restricted hearing of right ear//Bilateral hearing loss, unspecified hearing loss type//Sensorineural hearing loss (SNHL) of right ear with restricted hearing of left ear) 02/01/2024 Travel 01/19/2024 Telephone [facility] [address] [place] [address] Maria Guadalupe Leong MD Surgery Scheduled 01/17/2024 8:00 AM CDT Office Visit [facility] [address] [place] [address] Maria Guadalupe Leong MD Consult (blood flow in the right leg, wounds wont heal, stints in hip 3 yrs ago. blood flow is about 1/2 now) 01/17/2024 Travel 01/02/2024 Travel 12/22/2023 Telephone [facility] [address] [place] [address] Paul Bishop MD Referral 12/13/2023 11:23 AM CDT - 12/13/2023 11:59 PM CDT Hospital Encounter [facility] [address] [place] [address] Sasha Rodriguez PA PAD (peripheral artery disease) (HC) 12/13/2023 Travel from Last 3 Months Immunizations Name [...] Info) Description 03/12/2024 12:30 PM CDT Appointment [facility] [address] [place] [address] 03/12/2024 2:00 PM CDT Office Visit [facility] [address] [place] [address] Maria Guadalupe Leong MD [address] [place] [address] 05/03/2024 Cardiac Device Check [facility] [phone] Health Maintenance Due Date Last Done Comments Hepatitis C screening for age 18-79 1972 Colonoscopy through age 75 1999 Lipids for age 45-75 07/14/2013 07/14/2008 Zoster (shingles) series for age 50+ (2 of 3) 03/26/2015 01/29/2015 Depression screening for age 12+ 08/15/2018 08/15/19 18 Tetanus booster 12/26/2018 12/26/2008, 0203/2007, 03/21/1997 AAA screening age 65-74 2019 Medicare Wellness for age 65+ 2019 Pneumococcal series for age 65+ (1 of 1 - PCV) 2019 COVID-19 vaccine series (3 - season) 2023 09/14/2020, 08/20/2020 Influenza for age 65+ 03/24/2024 03/25/2011, 006 Tdap Completed 12/26/2008, 09/01/2006 Medical Devices Implanted Type Area Panelboard Tank Pumper Device Identifier Shelf Expiration Date Model / Serial / Lot Standard Pacemaker-12/21 Implanted:11/23 by Judson Jenkins MD (Quantity not on file) Standard Pacemaker [employer]onic [id number] / [id number] / Procedures Procedure Name Priority Date/Time Associated [...] LIPID PANEL Early AM 07/14/2008 3:00 AM PORTER LUGGAGE from Last 3 Months or Most Recently Relevant to Health Maintenance Results * (ABNORMAL) CBC (02/03/2024 10:42 AM CDT) Only the most recent of2 resultswithin the time period is included. WHITE BLOOD COUNT 5.9 4.5 - 11.0 thou/cu mm 02/03/2024 11:20 AM CDT [facility] RED BLOOD COUNT 3.57(L) 4.30 - 5.90 mil/cu mm 02/03/2024 11:20 AM CDT [facility] HEMOGLOBIN 9.5(L) 13.5 - 17.5 g/dL 02/03/2024 11:20 AM CDT [facility] HEMATOCRIT 30.9(L) 37.0 - 53.0 % 02/03/2024 11:20 AM CDT [facility] MCV 87 80 - 100 fL 02/03/2024 11:20 AM CDT [facility] MCH 26.6 26.0 - 34.0 pg 02/03/2024 11:20 AM CDT [facility] MCHC 30.7(L) 32.0 - 36.0 g/dL 02/03/2024 11:20 AM CDT [facility] RDW 13.5 11.5 - 15.5 % 02/03/2024 11:20 AM CDT [facility] PLATELET COUNT 211 140 - 440 thou/cu mm 02/03/2024 11:20 AM CDT [facility] MPV 8.3 6.5 - 11.0 fL 02/03/2024 11:20 AM CDT [facility] NRBC 0.0 % 02/03/2024 11:20 AM CDT [facility] ABS NRBC 0.0 thou /cu mm 02/03/2024 11:20 AM T [facility] Blood BLOOD SPECIMEN / Unknown Venipuncture / Unknown 02/03/2024 10:42 AM CDT 02/03/2024 10:56 AM CDT [facility] - 02/03/2024 11:20 AM CDT Call if Hemoglobin less than 10. Dary Carlos MD HEMATOLOGY [facility] [address] [place] [address], * (ABNORMAL) Basic Metabolic Panel (02/03/2024 10:42 AM CDT) Only the most recent of2 resultswithin the time period is included. SODIUM 139 136 - 145 mmol/L 02/03/2024 11:35 AM CDT [facility] POTASSIUM 4.7 3.5 - 5.1 mmol/L 02/03/2024 11:35 AM T [facility] CHLORIDE 107 98 - 107 mmol/L 02/03/2024 11:35 AM T [facility] CO2,TOTAL 26 22 - 29 mmol/L 02/03/2024 11:35 AM T [facility] ANION GAP 6 5 - 18 02/03/2024 11:35 AM T [facility] GLUCOSE 139(H) 70 - 99 mg/dL 02/03/2024 11:35 AM T [facility] CALCIUM 8.3(L) 8.8 - 10.2 mg/dL 02/03/2024 11:35 AM T [facility] BUN 14 8 - 23 mg/dL 02/03/2024 11:35 AM T [facility] CREATININE 0.42(L) 0.70 - 1.20 mg/dL 02/03/2024 11:35 AM T [facility] BUN/CREAT RATIO 33(H) 10 - 20 11:35 AM T [facility] eGFR >90 >90 mL/min/1.7 3m2 02/03/2024 11:35 AM CDT [facility] Comment:As of 2021, eG [...] 10:56 AM CDT Dary Carlos MD CHEMISTRY [facility] [address] [place] [address], * SCAN-CARDIAC STRIP (02/03/2024 10:26 AM CDT) [...] Securement/dressing: Biopatch applied, dressing applied. ??Comment: Vessel Software Support Analyst Additional supplies used to locate vessel: no Needle Catheter size: 20 G. ??Comment:. Catheter length: 4.5 cm. ??Comment: Events: no complications. Enrioc Perez MD ANESTHESIA PX N OTE ORDERABLES * (ABNORMAL) ACTIVATED CLOTTING TIME [id number] ACT (02/02/2024 1:59 PM CDT) ACTIVATED CLOTTING TIME, POCT 308(H) 74 - 125 sec 02/02/2024 3:45 PM CDT [facility] Blood BLOOD SPECIMEN / Unknown 02/02/2024 1:59 PM CDT 02/02/2024 3:45 PM CDT Maria Guadalupe Leong MD HEMATOLOGY Performing Organization Address City/[facility]/ZIP Co de Phone Number [facility] [address] [place] [address], * HCHG TUBE PR1, HCHG STYLET PR1, [...] Guadalupe Leong MD LABORATORY Performing Organization Address City/[facility]/ZIP Co de Phone Number [facility] [address] [place] [address], [place] * RBC W/O TYPE & SCREEN (02/02/2024 10:27 AM CDT) QUANTITY 4 02/02/2024 10:27 AM CDT [facility] LAB BLOOD BANK Blood BLOOD SPECIMEN / Unknown 02/02/2024 10:22 AM CDT Jono Malone NP BLOOD BANK Performing Organization Address [facility]/ZIP Co de Phone Number [facility] LAB-C[facility]TRAL LAB BLOOD BANK [address] [place] [address], * DONOR ANTIGEN (02/02/2024 10:22 AM CDT) Pathologist [facility] QUANTITY [address] [facility] LAB-CENTRAL LAB BLOOD BANK DONOR ANTIGEN TYPE Donor Antigen Type [facility] LAB BLOOD BANK Jono Malone NP BLOOD BANK Performing Organization Address [facility] de Phone Number [facility] [employer]-CENTRAL LAB BLOOD BANK [address] [place] [address], [place] [phone] * RED BLOOD CELLS EA UNIT (02/02/2024 10:22 AM CDT) Only the most recent of4 resultswithin the time period is included. Pathologist [facility] CROSSMATCH Compatible Compatible [facility] LAB BLOOD BANK PRODUCT BLOOD TYPE A Rh Positive [facility] [employer] LAB-CENTRAL LAB BLOOD BANK PRODUCT ID NUMBER [id number] [facility] LAB BLOOD BANK PRODUCT STATUS /Relea sed [facility] LAB-[facility] LAB BLOOD BANK PRODUCT DESCRIPTION RBC -1 LR [facility] [employer] LAB-CENTRAL LAB BLOOD BANK PRODUCT CODE [id number] [facility] [employer]-CENTRAL LAB BLOOD BANK Jono Malone NP BLOOD BANK Performing Organization Address [facility] Co de Phone Number [facility] [employer]-CENTRAL LAB BLOOD BANK [address] [place] [address], [place] [phone] * SCAN-CARDIAC STRIP (02/02/2024 12:00 AM CDT) Narrative 02/02/2024 12:00 AM CDT Ordered by an unspecified provider. Other Clinical Staff OTHER * (ABNORMAL) TYPE & SCREEN (02/01/2024 9:14 AM CDT) Pathologist [facility] ABORH A Rh Positive 02/01/2024 1:43 PM CDT [facility] BLOOD BANK Comment:Comment: Performed b y [facility], [address] [place] [address] [address], [place] [address] ANTIBODY SCREEN Positive(A) Negative 02/01/2024 1:43 PM CDT [facility] BLOOD BANK Comment:Comment: Performed b y [facility], [address] [place] [address] [address], [place] [address] SPECIMEN EXPIRATION DATE/TIME 02/04/24 23:59 02/01/2024 1:43 PM CDT [facility] BLOOD BANK Blood BLOOD SPECIMEN / Unknown Venipuncture / Unknown 02/01/2024 9:14 AM CDT 02/01/2024 9:21 AM CDT Maria Guadalupe Leong MD BLOOD BANK [facility] BLOOD BANK [address] [place] [address] * (ABNORMAL) ANTIBODY IDENTIFICATION LAB USE ONLY (02/01/2024 9:14 AM CDT) [facility] ANTIBODY IDENTIFICATION Anti-Duff y a(A) 02/01/2024 2:49 PM CDT [facility] BLOOD BANK Comment:Comment: Performed b y [facility], [address] [place] [address] [address], [place] [address] Blood BLOOD SPECIMEN / Unknown Venipuncture / Unknown 02/01/2024 9:14 AM CDT 02/01/2024 9:21 AM CDT Narrative [facility] BLOOD BANK - 02/01/2024 2:49 [...] Leong MD BLOOD BANK Performing Organization Address City/[facility]/ZIP Co de Phone Number [facility] BLOOD BANK [address] [place] [address] * ANTIBODY IDENTIFICATION EACH PANEL (02/01/2024 9:14 AM CDT) QUANTITY 1 [facility] BLOOD BANK PANEL JOSÉ MIGUEL ID Panel Antibody ID [facility] BLOOD BANK Maria Guadalupe Leong MD BLOOD BANK Performing Organization Address [facility] Co de Phone Number [facility] BLOOD BANK [address] [place] [address] * SCAN CORRESP-LABORATORY RESULTS (02/01/2024 9:09 AM CDT) Narrative 02/01/2024 9:09 AM CDT Ordered by an unspecified provider. Other Clinical Staff OTHER * US ANKLE BRACHIAL INDEX BILATERAL (12/13/2023 12:19 PM CDT) Anatomical Region Laterality Modality ANKLES, ANKLE L, ANKLE R Ultraso und 12/13/2023 11:2 8 AM CDT Narrative 12/13/2023 2:27 PM CDT VASCULAR ULTRASOUND REPORT MICHEAL RENE Accession#: ?? [id number] : ?1955 ??Study Date: ?? 12/13/2023 11:28:00 AM Age: ?68 years ?? Tech: ? MAD Gender: M ?Referring MD: SASHA RODRIGUEZ [facility] Study performed: ?Lower extremity segmental [...] FINDINGS: Unable to find pulse for bilateral OVERHEAD FOREMAN and DPA pressures. Right toe/brachial index indicates [...] Accreditation Commission (IAC/Vascular), [email or web address] Report generated by [employer]. ??Final ?? Procedure Note Judah Rodriguez MD - 12/13/2023 VASCULAR ULTRASOUND REPORT MICHEAL RENE : 1955 Study Date: 12/13/2023 11:28:00 AM Age: 68 years Tech: AREN Gender: M Referring MD: SASHA RODRIGUEZ Site: [facility] V[facility] Center Study performed: Lower extremity [...] FINDINGS: Unable to find pulse for bilateral OVERHEAD FOREMAN and DPA pressures. Right toe/brachial index indicates [...] theIntersocietal Accreditation Commission (IAC/Vascular),[email or web address] Report generated by [employer]. Final Sasha ANDERSON US * CT ANGIO [...] conjunction with the services provided by the [facility] ([facility]). FINDINGS: Lower Chest: Calcified right pleural [...] CDT Results are automatically released to your IEV ([employer]) account once available, in compliance with federal [...] * (ABNORMAL) CREATININE,ISTAT (12/13/2023 9:54 AM CDT) [facility] CREATININE, POCT 0.50(L) 0.57 - 1.11 mg/dL 12/13/2023 12:34 PM CDT [facility] Comment:Caution: Patients ta camila Hydroxyurea have falsely increased iStat Creatinine results. Verify creatinine results ordering a Creatinine (09501.2) eGFR >90 >90 mL/min/1.7 3m2 12/13/2023 12:34 PM CDT [facility] [facility] Comment:As of 2021, eG FR is calculated by the CKD-EPI creatinine equation without race adjustment. eGFR can be influenced by muscle mass, exercise, and diet. The reported eGFR is an estimation only and is only applicable if the renal function is stable. Blood BLOOD SPECIMEN / Unknown 12/13/2023 9:54 AM CDT 12/13/2023 12:34 PM CDT aSsha ANDERSON CHEMISTRY [facility]-CENTRAL LABORATORY [address] [place] [address], * Lipid Panel - In AM (07/14/2008 3:00 AM PORTER LUGGAGE) CHOLESTEROL,TOTAL 141 110 - 199 mg/dL [facility] TRIGLYCERIDES 41 40 - 149 mg/dL [facility] HDL CHOLESTEROL 45 >40 mg/dL [facility] CHOL/HDL RATIO 3.13 <4.51 [facility] LDL CHOLESTEROL 88 <131 mg/dL [facility] PATIENT STATUS Fasting [facility] Blood specimen (specimen) BLOOD SPECIMEN / Unknown 07/14/2008 3:00 AM PORTER LUGGAGE 07/14/2008 1:52 AM [facility] [place] Sudeep Sánchez MD CHEMISTRY [facility] INTERNAL ZIP [address] [place] [address] from Last 3 Months or Most Recently [...] 12 months since positive culture): 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
--- OUTSIDE RECORDS SUMMARY | 2024-03-01 06:10 | XMS_ITS | Data Portability ---
Author Organization [facility], [facility] Address [address] [place] [address] Care Team Providers Care Sql Manager Name Role Phone CHETNA MERAZ Primary Care Provider [phone] RAHUL OCONNOR Treating Engineer Helper Assessment Encounter Date Assessment Date Assessment LastModified [...] None recorded. Lab culture, urine 2020 021 [facility], [address], [place], [address], 07:39:35 urinalysis, dipstick 2020 021 marie Not available 10/20/202 1 11:34:22 Referral None recorded. Procedures None recorded. Surgeries None recorded. Imaging US, kidney 2021 022 [facility] Radiology Department, [address] [place], [address], 2 09:00:29 Medication Orders oxybutynin chloride ER 15 mg tablet,exte nded release 24 hr 2021 022 [id number], [address], [place], [place], [id number], 2 12:53:22 nitrofurant oin macrocrysta l 50 mg capsule [address] [facility]28944, [address], [place], [place], [id number], 4 08:10:56 nitrofurant oin macrocrysta l 50 mg capsule [address] [facility]40625, [address], [place], [place], [id number], 4 08:10:56 oxybutynin chloride ER 15 mg tablet,exte nded release 24 hr 2022 023 [facility] #35002, [address] , [place], [place], [id number], 3 12:15:06 methenamine hippurate 1 gram tablet [address] [facility]65304, [address] , [place], [place], [id number], 4 23:05:30 methenamine hippurate 1 gram tablet 2023 024 [facility] #57538, [address] , [place], [place], [id number], 4 23:05:37 oxybutynin chloride ER 15 mg tablet,exte nded release 24 hr 2023 024 [facility], [address] , [place], [id number], 4 23:04:50 Patient TargetsNo targets recorded. Patient InstructionsNo instructions recorded. Reason for Referral None Reported. Results Created Date Observation Date Name Description Value Unit Range Abnormal Flag LastModifiedBy Organization Detail LastModifiedTime 05/12/2021 urina lysis , dipst ick Color-Status Yellow Not Available [facility] [address], [place], [address], 05/12/2021 11:33:40 05/12/2021 urina lysis , dipst ick Clarity-Stat us Cloudy Not Available [facility] [address], [place], [address], 05/12/2021 11:33:40 05/12/2021 urina lysis , dipst ick pH-Status 7.5 Not Available [facility] [address], [place], [address], 05/12/2021 11:33:40 05/12/2021 urina lysis , dipst ick Nitrates-Sta tus positi ve Not Available [facility] [address], [place], [address], 05/12/2021 11:33:40 05/12/2021 urina lysis , dipst ick Blood-Status Small Not Available [facility] [address], [place], [address], 05/12/2021 11:33:40 05/12/2021 urina lysis , dipst ick Leuko-Status Large Not Available [facility] [address], [place], [address], 05/12/2021 11:33:40 05/06/20 21 05/06/2021 URINE CULTU RE final report MICROB IOLOGY RESULT S abnormal Not Available [facility] [address] [facility], [place], [address], 05/08/2021 07:39:35 10/07/19 22 10/05/2021 US, kidne y No observ ation record ed. [address] Radiology Department [address] [place], [address], 09/28/2022 13:47:50 Result Notes None recorded. Procedures Surgical History Date Name Laterality Status Provider Name and Address Organization Details Recorded Time 4 COMPLEX VISIT completed Jono Pagan MD [address] [facility],[address], [place], [address], [place] [facility] 11/01/2023 08:09:54 excision of pressure injury completed Jono Pagan MD [address] [facility],[address], [place], [address], [place] [facility] 09/28/2022 11:00:08 maintenance procedure for cardiac pacemaker system completed Veronika hwang [facility] 11/01/2023 11:05:10 Imaging Results Imaging Date Name Status LastModified by Organiz ation Details LastModified Time 10/05/2021 US, kidney completed [address] Radiology Department [address] [place], [address], 09/28/2022 13:47:50 Procedure Notes None recorded. Medical Equipment None Reported. Allergies Allergen ID Allergen Name Allergen Category Reaction Reaction Severity Criticality Documentation Date Start Date Code Code System Note Provider Name and Address Organization Details Recorded Time 337576 Medicinal product containin g cephalosp pao and acting as antibacte rial agent (product) medicatio n Not available Not available Not available 09/27/2021 92268 9[address] [facility] 2 12:43:20 397405 shellfish derived food,medi cation Not available Not available Not available 11/01/2023 Veronika Arianna hwang, [place] - [facility] 4 11:03:08 Medications Name Sig Start [...] Updated DateTime 09/28/2022 182.88 cm 19.4 kg/m2 86497.[address] [facility] 09/28/2022 10:55:01 Date Recorded Body height Body mass index (BMI) Body weight Provider Name and Address Organization Details Last Updated DateTime 04/28/2023 182.88 cm 19.4 kg/m2 27557.[address] [facility] 04/28/2023 11:39:29 Date Recorded Body height Body mass index (BMI) Body weight Provider Name and Address Organization Details Last Updated DateTime 10/12/2023 182.88 cm 19.4 kg/m2 49053.71 g Veronika Begum [facility] 10/12/2023 12:26:19 Date Recorded Body height Body mass index (BMI) Body weight Provider Name and Address Organization Details Last Updated DateTime 11/01/2023 182.88 cm 18.7 kg/m2 79177.75 g Veronika Begum [facility] 11/01/2023 11:02:57 Date Recorded Body height Body mass index (BMI) Body weight Provider Name and Address Organization Details Last Updated DateTime 05/06/2021 182.88 cm 19.4 kg/m2 97394.71 g Chelsea Medrano [facility] 05/06/2021 12:47:45 Date Recorded Body height Body mass index (BMI) Body weight Provider Name and Address Organization Details Last Updated DateTime 09/27/2021 182.88 cm 19.4 kg/m2 [address]798.[address] [facility] 09/27/2021 12:43:07 Social History Question Answer Notes LastModified by Organizat ion Details LastModified Time Tobacco Smoking Status [facility] 14:55:09 What Is Your Level [...] Reflux N Heart Disease N Cancer N Depression N Lung Disease N Immunizations Vaccine Type Date Status Provider Name and Address Organization Details Recorded Time IPV 11/19/2004 completed Mindy hwang [facility] 04/28/2023 11:39:35 COVID-19, mRNA, LNP-S, PF, 30 mcg/0.3 mL dose 08/20/2020 completed Mindy hwang [facility] 04/28/2023 11:39:35 COVID-19, mRNA, LNP-S, PF, 30 mcg/0.3 mL dose 09/14/2020 completed Mindy hwang [facility] 04/28/2023 11:39:35 Pneumococcal conjugate PCV20, polysaccharide [id number] conjugate, adjuvant, PF 12/01/2022 completed Mindy hwang [facility] 04/28/2023 11:39:35 influenza, unspecified formulation 05/24/2006 completed Mindy hwang [facility] 04/28/2023 11:39:35 Tdap 09/01/2006 completed Mindy hwang [facility] 04/28/2023 11:39:35 Tdap 12/26/2008 [facility]/28/2023 11:39:35 zoster live 01/29/2015 completed Mindy hwang [facility] 04/28/2023 11:39:35 Influenza, split virus, trivalent, PF 03/25/[address] [facility] 04/28/2023 11:39:35 Influenza, split virus, trivalent, PF 05[facility]24/[facility]23 11:39:35 Td (adult), 2 Lf tetanus toxoid, preservative free, adsorbed 03/21/[address] [facility] 04/28/2023 11:39:35 Hep B, adult 09/01/2006 completed Mindy hwang, [facility] 04/28/2023 11:39:35 Hep B, adult 11/19/2004 completed Mindy hwang, [facility] 04/28/2023 11:39:35 Hep B, adult 03/30/2007 completed Mindy hwang, [facility] 04/28/2023 11:39:35 Hep A, adult 09/30/2002 completed Mindy hwang, [facility] 04/28/2023 11:39:35 Hep A, adult 11/19/[address] [facility] 04/28/2023 11:39:35 Hep A, adult 05/01/[address] [facility] 04/28/2023 11:39:35 typhoid, ViCPs 09/01/[address] [facility] 04/28/2023 11:39:35 typhoid, ViCPs 09/30/[address] [facility] 04/28/2023 11:39:35 Past Encounters Encounter ID Performer Location Encounter Start Date Encounter Closed Date Diagnosis/Indication Diagnosis SNOMED-CT Code [id number] MD KIKE [facility] [address] [place] [address] 02/18/2021 14:23:42 02/19/2021 12:13:21 Neurogenic urinary bladder 851713193 Spinal cord injury 51379 004 Spasm of u rinary bladder 837904532 Recurrent urinary tract infection 406114262 Acute urin estefany tract infection [id number] Marlene Greer [facility] [address] [place] [address] 05/06/2021 11:58:15 05/11/2021 03:52:30 Abnormal urine [id number] Jono Pagan MD [facility] [address] [place] [address] 09/27/2021 12:37:54 10/27/2021 09:29:43 Neurogenic urinary bladder 869162666 Spinal cord injury 30584 004 Spasm of u rinary bladder 047799949 Recurrent urinary tract infection 737598394 [id number] [facility] [address] [place] [address] 09/28/2022 10:53:21 10/01/2022 11:26:52 Neurogenic urinary bladder 575835129 Spinal cord injury 73146 004 Spasm of u rinary bladder 415176962 Recurrent urinary tract infection [id number] Jono Pagan MD [facility] [address] [place] [address] 04/28/2023 11:30:11 05/04/2023 11:13:13 Neurogenic urinary bladder 937248343 Spinal cord injury 94736 004 Spasm of u rinary bladder 439008633 Recurrent urinary tract infection [id number] [facility] [address] [place] [address] 11/01/2023 10:52:02 11/02/2023 14:01:41 Neurogenic urinary bladder 800586773 Spinal cord injury 93944 004 Spasm of u rinary bladder 714908897 Recurrent urinary tract infection [id number] Health Concerns Section Related Observation LastModified by Organization Detai ls LastModified Time None Recorded Concern Status LastModified by Organization Details LastModified Time None Recorded Advance Directives Directive None Recorded Payers Encounter Date Sequence Insurance Name Policy Number Policy Quinones Covered Member ID Quinones Member ID Guarantor Name 05/06/2021 [facility] [employer] [id number] [facility] Khanh Rene 09/27/2021 1 [facility] (MEDICARE REPLACEMENT/AD VANTAGE - PPO) [id number] Khanh Rene [id number] Khanh Rene 09/28/2022 [facility] [employer] [id number] [facility] Khanh Rene 04/28/2023 1 [facility] (MEDICARE REPLACEMENT/AD VANTAGE - PPO) [id number] Khanh Rene [id number] Khanh Rene 11/01/2023 [facility] [id number] [facility] Khanh Gordon [place] Notes Date Note Type Note Provider Name and Address Organization Details Recorded Time 05/06/2021 text/html HPI Notes: Pt he re for UA/UC due to low back ache, cloudy urine with sediment present X 1.5 weeks. pt given cipro 500mg BID pending culture. K[employer], [employer] Marlene hwang [facility] 07/20/2021 14:23:40 09/27/2021 text/html [...] over last 7 months. Jono Pagan MD [address] [place] [address],[address], [address], [facility] 09/27/2021 13:13:14 09/28/2022 text/html [...] upper tract abnormality. Jono Pagan MD [address] [facility] [facility],[address], [place], [address], [facility] 09/28/2022 13:48:55 04/28/2023 text/html [...] since the summer. Jono Pagan MD [address] [facility],[address], [place], [address], [facility] 04/28/2023 12:27:52 11/01/2023 text/html [...] catheter when traveling. Jono Pagan MD [address] [facility],[address], [place], [address], [facility] 11/01/2023 23:05:58
[2024-03-01 06:30] VITALS: BP 95/52; PULSE 78; RESP 18; TEMP 36.8; O2SAT 99
[2024-03-01 07:22] VITALS: BP 118/59; PULSE 66; RESP 20; O2SAT 97
[2024-03-01] MEDS: CIPROFLOX/DEXAMETH OTIC (nc) 4 DROP EAR-RIGHT (07:22)
[2024-03-01 07:25] VITALS: PULSE 62; RESP 20; O2SAT 99
[2024-03-01 07:30] VITALS: BP 108/74; PULSE 66; RESP 18; O2SAT 98
[2024-03-01] MEDS: phenoL 29.57 ML LIQUID TOPICAL (07:32)
[2024-03-01 07:33] VITALS: TEMP 36.3
--- NOTE | 2024-03-01 11:47 | W.PM.ENTPROC ---
Procedure Note Date of procedure: 03/01/24 Procedure: Preop diagnosis right serous otitis media, hyperbaric oxygen patient Postoperative diagnosis same Procedure right myringotomy and tube placement Patient was brought to the operating room and prepped and draped usual fashion. A strip of phenol was applied topically in an inferior radial strip on the tympanic membrane. A myringotomy was made and a large amount of serous and mucoid fluid was aspirated. A Duravent tube was placed without difficulty followed by Ciprodex drops. The patient procedure well was taken to recovery in satisfactory condition blood loss was 0. Surgeon: Robbi Huerta MD
== END 2024-03-01 07:53 | disposition home or self-care (01) ==
LOC: OR 06:08
PROVIDERS: PCP Family Medicine; Visit Provider Otolaryngology
PROC: (CPT 69420; principal; 2024-03-01 07:15)
DX: H65.01 Acute serous otitis media, right ear (principal)
CPT/HCPCS: 69436; A9270

== ENCOUNTER 2024-03-04 08:03 | Outpatient (CLI) | payer OTHER, SELFPAY ==
--- OUTSIDE RECORDS SUMMARY | 2024-03-04 08:05 | XMS_ITS | Clinical Summary ---
Author Organization [facility] Address [place], [place] [address] Care Team Providers Care Recreation Therapy Aides Teacher Name Role Phone Goyoluis aAna Unavailable Alex Mata MD Primary Care Provider + Jak Keys RECREATIONAL AIDE Unavailable [phone] Allergies Active Allergy Reactions Criticality Noted Date Comments Blood-Group Specific Substance Other - Describe In Comment Field 04/19/2021 Patient has Sims a (Fya) antibody. Blood products may be delayed. Draw patient 24 hours prior to transfusion. For [employer] testing, draw one red top and two [...] meal. Active aspirin chewable 81 mg chewable tabletIndications :PAD (peripheral artery disease) (HC) Chew 1 Tablet (81 mg) by mouth once daily with a meal. 01/17/2024 Active methenamine hippurate (HIPREX) 1 gram tablet Take 1 g by mouth. TWICE DAILY ON DAY 1-3 OF EACH MONTH Active atorvastatin (LIPITOR) 20 mg tabletIndications :PAD (peripheral artery disease) (HC) Take 1 Tablet (20 mg) by mouth once daily. 90 Tablet 02/13/2024 Active atorvastatin (LIPITOR) 20 mg tabletIndications :PAD (peripheral artery disease) (HC) Take 1 Tablet [...] Type Department Care Team Description 02/13/2024 Refill [facility] [place] [facility] [place] [address] [place] [address] Maria Guadalupe Leong MD Refill Request 02/02/2024 1:04 PM CDT Anesthesia Event [facility] [address] [place] [address] Enrico Perez MD Beulke, Steven William, CRNA 02/02/2024 10:01 AM CDT - 02/03/2024 1:05 PM CDT Hospital Encounter [facility] [address] [place] [address] Maria Guadalupe Leong MD Taylor, Phillip Norman, MD Erickson, Andrew Richard, CRNA Discharge Disposition: Home Self Care 02/01/2024 8:53 AM CDT - 02/01/2024 11:59 PM CDT Hospital Encounter [facility] [address] [place] [address] PAD (peripheral artery disease) (HC) 02/01/2024 8:15 AM CDT Office Visit [facility] [address] [place] [address] Raquel Multani MD [facility] (1990 injury//Mixed conductive and sensorineural hearing loss of left ear with restricted hearing of right ear//Bilateral hearing loss, unspecified hearing loss type//Sensorineural hearing loss (SNHL) of right ear with restricted hearing of left ear) 02/01/2024 Travel 01/19/2024 Telephone [facility] [address] [place] [id number] Maria Guadalupe Leong MD Surgery Scheduled 01/17/2024 8:00 AM CDT Office Visit [facility] [address] [place] [address] Maria Guadalupe Leong MD Consult (blood flow in the right leg, wounds wont heal, stints in hip 3 yrs ago. blood flow is about 1/2 now) 01/17/2024 Travel 01/02/2024 Travel 12/22/2023 Telephone [facility] [address] [place] [address] Paul Bishop MD Referral 12/13/2023 11:23 AM CDT - 12/13/2023 11:59 PM CDT Hospital Encounter [facility] [address] [place] [address] Sasha Rodriguez PA PAD (peripheral artery disease) [...] Info) Description 03/12/2024 12:30 PM CDT Appointment [facility] [address] [place] [address] 03/12/2024 2:00 PM CDT Office Visit [facility] [address] [place] [address] Maria Guadalupe Leong MD [address] [place] [address] 05/03/2024 Cardiac Device Check [facility] [phone] Health Maintenance Due Date Last Done Comments [...] 12/26/2008, 09/01/2006 Medical Devices Implanted Type Area Computer Systems Integrator Device Identifier Shelf Expiration Date Model / Serial / Lot Standard Pacemaker-12/21 Implanted:11/23 by Judson Jenkins MD (Quantity not on file) Standard Pacemaker Med[employer]onic [id number] / [id number] / Procedures Procedure Name Priority Date/Time Associated [...] LIPID PANEL Early AM 07/14/2008 3:00 AM ASSISTED SALES REPRESENTATIVE from Last 3 Months or Most Recently Relevant to Health Maintenance Results * (ABNORMAL) CBC (02/03/2024 10:42 AM CDT) Only the most recent of2 resultswithin the time period is included. WHITE BLOOD COUNT 5.9 4.5 - 11.0 thou/cu mm 02/03/2024 11:20 AM [facility] RED BLOOD COUNT 3.57(L) 4.30 - 5.90 mil/cu mm 02/03/2024 11:20 AM [facility] HEMOGLOBIN 9.5(L) 13.5 - 17.5 g/dL 02/03/2024 11:20 AM [facility] HEMATOCRIT 30.9(L) 37.0 - 53.0 % 02/03/2024 11:20 AM [facility] MCV 87 80 - 100 fL 02/03/2024 11:20 AM [facility] MCH 26.6 26.0 - 34.0 pg 02/03/2024 11:20 AM [facility] MCHC 30.7(L) 32.0 - 36.0 g/dL 02/03/2024 11:20 AM [facility] RDW 13.5 11.5 - 15.5 % 02/03/2024 11:20 AM [facility] PLATELET COUNT 211 140 - 440 thou/cu mm 02/03/2024 11:20 AM [facility] MPV 8.3 6.5 - 11.0 fL 02/03/2024 11:20 AM [facility] NRBC 0.0 % 02/03/2024 11:20 AM [facility] ABS NRBC 0.0 thou /cu mm 02/03/2024 11:20 AM [facility] Blood BLOOD SPECIMEN / Unknown Venipuncture / Unknown 02/03/2024 10:42 AM CDT 02/03/2024 10:56 AM CDT [facility] - 02/03/2024 11:20 AM CDT Call if Hemoglobin less than 10. Dary Carlos MD HEMATOLOGY [facility] [address] [place] [address], * (ABNORMAL) Basic Metabolic Panel (02/03/2024 10:42 AM CDT) Only the most recent of2 resultswithin the time period is included. SODIUM 139 136 - 145 mmol/L 02/03/2024 11:35 AM CDT [facility] POTASSIUM 4.7 3.5 - 5.1 mmol/L 02/03/2024 11:35 AM T [facility] CHLORIDE 107 98 - 107 mmol/L 02/03/2024 11:35 AM T [facility] CO2,TOTAL 26 22 - 29 mmol/L 02/03/2024 11:35 AM T [facility] ANION GAP 6 5 - 18 02/03/2024 11:35 AM CDT [facility] GLUCOSE 139(H) 70 - 99 mg/dL 02/03/2024 11:35 AM T [facility] CALCIUM 8.3(L) 8.8 - 10.2 mg/dL 02/03/2024 11:35 AM T [facility] BUN 14 8 - 23 mg/dL 02/03/2024 11:35 AM T [facility] CREATININE 0.42(L) 0.70 - 1.20 mg/dL 02/03/2024 11:35 AM T [facility] BUN/CREAT RATIO 33(H) 10 - 20 11:35 AM T [facility] eGFR >90 >90 mL/min/1.7 3m2 02/03/2024 11:35 AM T [facility] Comment:As of 2021, eG [...] 10:56 AM CDT Dary Carlos MD CHEMISTRY [facility] [address] [place] [address], * SCAN-CARDIAC STRIP (02/03/2024 10:26 AM CDT) [...] Securement/dressing: Biopatch applied, dressing applied. ??Comment: Vessel Scoop Filler Additional supplies used to locate vessel: no Needle Catheter size: 20 G. ??Comment:. Catheter length: 4.5 cm. ??Comment: Events: no complications. Enrico Perez MD ANESTHESIA PX N OTE ORDERABLES * (ABNORMAL) ACTIVATED CLOTTING TIME [id number] ACT (02/02/2024 1:59 PM CDT) [facility] ACTIVATED CLOTTING TIME, POCT 308(H) 74 - 125 sec 02/02/2024 3:45 PM CDT [facility] Blood BLOOD SPECIMEN / Unknown 02/02/2024 1:59 PM CDT 02/02/2024 3:45 PM CDT Maria Guadalupe Leong MD HEMATOLOGY Performing Organization Address City/[facility] Co de Phone Number [facility] [address] [place] [address], * HCHG TUBE PR1, HCHG STYLET PR1, HCHG MOUTHPIECE PR1 (02/02/2024 1:33 PM CDT) Narrative Howard Bull CRNA - 02/02/2024 1:33 PM CDT Howard Bull CRNA ? 02/02/2024 ??1:34 PM Procedure: ETT Patient location during procedure: OR ETT Properties Mask Ventilation: easy and oral airway Final Technique: direct laryngoscopy Type: straight Location: oral Tube Size: 7.5 mm Stylet: yes Laryngoscope Blade: Trevioñ Blade Size: 2 Cormack-Lehane Grade View: 1 [...] Guadalupe Leong MD LABORATORY Performing Organization Address City/[facility]/ZIP Co de Phone Number [facility] [address] [place] [address], * RBC W/O TYPE & SCREEN (02/02/2024 10:27 AM CDT) QUANTITY 4 02/02/2024 10:27 AM CDT [facility] B[facility]OD BANK Blood BLOOD SPECIMEN / Unknown 02/02/2024 10:22 AM CDT Jono Malone NP BLOOD BANK Performing Organization Address [facility] Co de Phone Number [facility] [employer]-[facility] BLOOD BANK [address] [place] [address], * DONOR ANTIGEN (02/02/2024 10:22 AM CDT) QUANTITY 4 [facility] BLOOD BANK DONOR ANTIGEN TYPE Donor Antigen Type [facility] Jono Malone NP BLOOD BANK Performing Organization Address [facility] de Phone Number [facility] LimitlesslaneCENTRAL LAB BLOOD BANK [address] [place] [address], [place] [phone] * RED BLOOD CELLS EA UNIT (02/02/2024 10:22 AM CDT) Only the most recent of4 resultswithin the time period is included. CROSSMATCH Compatible Compatible [facility]Hello[facility] B[facility] B[facility] PRODUCT BLOOD TYPE A Rh Positive [facility] [employer]-C[facility]TRAL [facility] BLOOD BANK PRODUCT ID NUMBER [id number] [facility] [employer]-[facility]TRAL LAB BLOOD BANK PRODUCT STATUS /Relea sed [facility] [employer]-[facility] BLOOD BANK PRODUCT DESCRIPTION RBC -1 LR [facility] [employer]-[facility] LAB BLOOD BANK PRODUCT CODE [id number] [facility] Codon DevicesCENTRAL LAB BLOOD BANK Jono Malone NP BLOOD BANK Performing Organization Address [facility] Co de Phone Number [facility] Codon DevicesCENTRAL LAB BLOOD BANK [address] [place] [address], [place] [phone] * SCAN-CARDIAC STRIP (02/02/2024 12:00 AM CDT) Narrative 02/02/2024 12:00 AM CDT Ordered by an unspecified provider. Other Clinical Staff OTHER * (ABNORMAL) TYPE & SCREEN (02/01/2024 9:14 AM CDT) Pathologist [facility] ABORH A Rh Positive 02/01/2024 1:43 PM CDT [facility] BLOOD BANK Comment:Comment: Performed b y Central Laboratory - [facility], [address] [place] [address], [place] [address] ANTIBODY SCREEN Positive(A) Negative 02/01/2024 1:43 PM CDT [facility] BLOOD BANK Comment:Comment: Performed b y [facility], [address] [place] [address] [address], [place] [address] SPECIMEN EXPIRATION DATE/TIME 02/04/24 23:59 02/01/2024 1:43 PM CDT [facility] BLOOD BANK Blood BLOOD SPECIMEN / Unknown Venipuncture / Unknown 02/01/2024 9:14 AM CDT 02/01/2024 9:21 AM CDT Maria Guadalupe Leong MD BLOOD BANK Performing Organization Address City/State/[facility] Co de Phone Number [facility] BLOOD BANK [address] [place] [address] * (ABNORMAL) ANTIBODY IDENTIFICATION LAB USE ONLY (02/01/2024 9:14 AM CDT) [facility] ANTIBODY IDENTIFICATION Anti-Duff y a(A) 02/01/2024 2:49 PM CDT [facility] BLOOD BANK Comment:Comment: Performed b y [facility], [address] [place] [address] [address], [place] [address] Blood BLOOD SPECIMEN / Unknown Venipuncture / Unknown 02/01/2024 9:14 AM CDT 02/01/2024 9:21 AM CDT Narrative [facility] BLOOD BANK - 02/01/2024 2:49 PM [...] Leong MD BLOOD BANK Performing Organization Address City/[facility]/ZIP Co de Phone Number [facility] BLOOD BANK [address] [place] [address] * ANTIBODY IDENTIFICATION EACH PANEL (02/01/2024 9:14 AM CDT) QUANTITY 1 [facility] BLOOD BANK PANEL JOSÉ MIGUEL ID Panel Antibody ID [facility] BLOOD BANK Maria Guadalupe Leong MD BLOOD BANK Performing Organization Address City/[facility]/ZIP Co de Phone Number [facility] BLOOD BANK [address] [place] [address] * SCAN CORRESP-LABORATORY RESULTS (02/01/2024 9:09 AM CDT) Narrative 02/01/2024 9:09 AM CDT Ordered by an unspecified provider. Other Clinical Staff OTHER * US ANKLE BRACHIAL INDEX BILATERAL (12/13/2023 12:19 PM CDT) Anatomical Region Laterality Modality ANKLES, ANKLE L, ANKLE R Ultraso und 12/13/2023 11:2 8 AM CDT Narrative 12/13/2023 2:27 PM CDT VASCULAR ULTRASOUND REPORT MICHEAL RENE Accession#: ?? [id number] : ?1955 ??Study Date: ?? 12/13/2023 11:28:00 AM Age: ?68 years ?? Tech: ? MAD Gender: M ?Referring MD: SASHA RODRIGUEZ Site: [facility] Study performed: ?Lower extremity [...] FINDINGS: Unable to find pulse for bilateral HOSPITALITY HOST and DPA pressures. Right toe/brachial index indicates [...] Accreditation Commission (IAC/Vascular), [email or web address] Report generated by [employer]. ??Final ?? Procedure Note Judah Rodriguez MD - 12/13/2023 VASCULAR ULTRASOUND REPORT MICHEAL RENE : 1955 Study Date: 12/13/2023 11:28:00 AM Age: 68 years Tech: MAD Gender: M Referring MD: SASHA RODRIGUEZ Site: [facility] V[facility] Center Study performed: Lower extremity [...] FINDINGS: Unable to find pulse for bilateral HOSPITALITY HOST and DPA pressures. Right toe/brachial index indicates [...] theIntersocietal Accreditation Commission (IAC/Vascular),[email or web address] Report generated by [employer]. Final Sasha ANDERSON US * CT ANGIO [...] conjunction with the services provided by the [facility] [place] ([facility]). FINDINGS: Lower Chest: Calcified right pleural [...] CDT Results are automatically released to your [employer] account once available, in compliance with [...] - 1.11 mg/dL 12/13/2023 12:34 PM CDT [facility] Comment:Caution: Patients ta camila Hydroxyurea have falsely increased iStat Creatinine results. Verify creatinine results ordering a Creatinine (18018.2) eGFR >90 >90 mL/min/1.7 3m2 12/13/2023 12:34 PM CDT [facility] Comment:As of 2021, eG FR is calculated by the CKD-EPI creatinine equation without race adjustment. eGFR can be influenced by muscle mass, exercise, and diet. The reported eGFR is an estimation only and is only applicable if the renal function is stable. Blood BLOOD SPECIMEN / Unknown 12/13/2023 9:54 AM CDT 12/13/2023 12:34 PM CDT Sasha ANDERSON CHEMISTRY [facility] [address] [place] [address], * Lipid Panel - In AM (07/14/2008 3:00 AM ASSISTED SALES REPRESENTATIVE) CHOLESTEROL,TOTAL 141 110 - 199 mg/dL [facility] TRIGLYCERIDES 41 40 - 149 mg/dL [facility] HDL CHOLESTEROL 45 >40 mg/dL [facility] CHOL/HDL RATIO 3.13 <4.51 [facility] LDL CHOLESTEROL 88 <131 mg/dL [facility] PATIENT STATUS Fasting [facility] Blood specimen (specimen) BLOOD SPECIMEN / Unknown 07/14/2008 3:00 AM ASSISTED SALES REPRESENTATIVE 07/14/2008 1:52 AM ASSISTED SALES REPRESENTATIVE Phyllis Sánchez MD CHEMISTRY [facility] INTERNAL ZIP [address] [place] [phone] from Last 3 Months or Most Recently [...] 12 months since positive culture): resides in acute/prison care, receiving hemodialysis, has chronic open wounds/skin [...] 6:44 AM 03/14/2016 5:37 PM Care Teams Recreation Therapy Aides Teacher Relationship Specialty Start Date End Date Alex Mata MD [address] [place] [address] PCP - General Family Practice 02/04/20 Ana Mayers [address] [place] [address] Nurse Practitioner 03/02/11 Jak Keys NP [facility] [address] [place] [address] Nurse Practitioner Nurse Practitioner - Adult 10/30/23
== END 2024-03-04 08:04 | disposition home or self-care (01) ==
PROVIDERS: PCP Family Medicine; Visit Provider Nurse Practitioner Family
DX: L89.314 Pressure ulcer of right buttock, stage 4 (principal); M86.671 Other chronic osteomyelitis, right ankle and foot; L89.894 Pressure ulcer of other site, stage 4; L89.893 Pressure ulcer of other site, stage 3; L89.514 Pressure ulcer of right ankle, stage 4; L89.614 Pressure ulcer of right heel, stage 4; Z99.3 Dependence on wheelchair
CPT/HCPCS: 11042; 97597; G0277

== ENCOUNTER 2024-03-11 07:56 | Outpatient (CLI) | payer OTHER, SELFPAY ==
--- OUTSIDE RECORDS SUMMARY | 2024-03-11 07:57 | XMS_ITS | Clinical Summary ---
Author Organization [facility] Address [place], [place] [address] Care Team Providers Care Editor Department Name Role Phone Goyoluis aAna Unavailable Alex Mata MD Primary Care Provider + Jak Keys CONTOUR SANDER Unavailable [phone] Allergies Active Allergy Reactions Criticality Noted Date Comments Blood-Group Specific Substance Other - Describe In Comment Field 04/19/2021 Patient has Sims a (Fya) antibody. Blood products may be delayed. Draw patient 24 hours prior to transfusion. For Flurry testing, draw one red top and two [...] Overview: 09/20/23 bilateral lower extremity arterial ultrasound ([facility]) S/P flap graft 03/06/2020 Neurogenic orthostatic [...] Type Department Care Team Description 02/13/2024 Refill [facility] [place] [address] [place] [address] Maria Guadalupe Leong MD Refill Request 02/02/2024 1:04 PM CDT Anesthesia Event [facility] [address] [place] [address] Enrico Perez MD Beulke, Steven William, CRNA 02/02/2024 10:01 AM CDT - 02/03/2024 1:05 PM CDT Hospital Encounter [facility] [address] [place] [address] Maria Guadalupe Leong MD Taylor, Phillip Norman, MD Erickson, Andrew Richard, CRNA Discharge Disposition: Home Self Care 02/01/2024 8:53 AM CDT - 02/01/2024 11:59 PM CDT Hospital Encounter [facility] [address] [place] [address] PAD (peripheral artery disease) (HC) 02/01/2024 8:15 AM CDT Office Visit [facility] [address] [place] [address] Raquel Multani MD [facility] (1989 injury//Mixed conductive and sensorineural hearing loss of left ear with restricted hearing of right ear//Bilateral hearing loss, unspecified hearing loss type//Sensorineural hearing loss (SNHL) of right ear with restricted hearing of left ear) 02/01/2024 Travel 01/19/2024 Telephone [facility] [address] [place] [address] Maria Guadalupe Leong MD Surgery Scheduled 01/17/2024 8:00 AM CDT Office Visit [facility] [address] [place] [address] Maria Guadalupe Leong MD Consult (blood flow in the right leg, wounds wont heal, stints in hip 3 yrs ago. blood flow is about 1/2 now) 01/17/2024 Travel 01/02/2024 Travel 12/22/2023 Telephone [facility] [place] [address] [place] [address] Paul Bishop MD Referral 12/13/2023 11:23 AM CDT - 12/13/2023 11:59 PM CDT Hospital Encounter [facility] [address] [place] [address] Sasha Rodriguez PA PAD (peripheral artery disease) [...] Info) Description 03/12/2024 12:30 PM CDT Appointment [facility] [address] [place] [address] 03/12/2024 2:00 PM CDT [place] [facility] [address] [place] [address] Maria Guadalupe Leong MD [address] [place] [address] 05/03/2024 Cardiac Device Check [facility] [place] [facility] [phone] Health Maintenance Due Date Last Done Comments [...] 12/26/2008, 09/01/2006 Medical Devices Implanted Type Area Underwater Roboticist Device Identifier Shelf Expiration Date Model / Serial / Lot Standard Pacemaker-12/21 Implanted:11/23 by Judson Jenkins MD (Quantity not on file) Standard Pacemaker Med[employer]onic [id number] / [id number] / Procedures Procedure Name Priority Date/Time Associated [...] LIPID PANEL Early AM 07/14/2008 3:00 AM HOUSEPERSON from Last 3 Months or Most Recently Relevant to Health Maintenance Results * (ABNORMAL) CBC (02/03/2024 10:42 AM CDT) Only the most recent of2 resultswithin the time period is included. WHITE BLOOD COUNT 5.9 4.5 - 11.0 thou/cu mm 02/03/2024 11:20 AM [facility] RED BLOOD COUNT 3.57(L) 4.30 - 5.90 mil/cu mm 02/03/2024 11:20 AM [facility] HEMOGLOBIN 9.5(L) 13.5 - 17.5 g/dL 02/03/2024 11:20 AM [facility] HEMATOCRIT 30.9(L) 37.0 - 53.0 % 02/03/2024 11:20 AM [facility] MCV 87 80 - 100 fL 02/03/2024 11:20 AM [facility] MCH 26.6 26.0 - 34.0 pg 02/03/2024 11:20 AM [facility] MCHC 30.7(L) 32.0 - 36.0 g/dL 02/03/2024 11:20 AM [facility] RDW 13.5 11.5 - 15.5 % 02/03/2024 11:20 AM [facility] PLATELET COUNT 211 140 - 440 thou/cu mm 02/03/2024 11:20 AM [facility] MPV 8.3 6.5 - 11.0 fL 02/03/2024 11:20 AM [facility] NRBC 0.0 % 02/03/2024 11:20 AM [facility] ABS NRBC 0.0 thou /cu mm 02/03/2024 11:20 AM [facility] Blood BLOOD SPECIMEN / Unknown Venipuncture / Unknown 02/03/2024 10:42 AM CDT 02/03/2024 10:56 AM CDT [facility] - 02/03/2024 11:20 AM CDT Call if Hemoglobin less than 10. Dary Carlos MD HEMATOLOGY [facility] [address] [place] [address], * (ABNORMAL) Basic Metabolic Panel (02/03/2024 10:42 AM CDT) Only the most recent of2 resultswithin the time period is included. SODIUM 139 136 - 145 mmol/L 02/03/2024 11:35 AM CDT [facility] POTASSIUM 4.7 3.5 - 5.1 mmol/L 02/03/2024 11:35 AM T [facility] CHLORIDE 107 98 - 107 mmol/L 02/03/2024 11:35 AM T [facility] CO2,TOTAL 26 22 - 29 mmol/L 02/03/2024 11:35 AM T [facility] ANION GAP 6 5 - 18 02/03/2024 11:35 AM CDT [facility] GLUCOSE 139(H) 70 - 99 mg/dL 02/03/2024 11:35 AM T [facility] CALCIUM 8.3(L) 8.8 - 10.2 mg/dL 02/03/2024 11:35 AM T [facility] BUN 14 8 - 23 mg/dL 02/03/2024 11:35 AM T [facility] CREATININE 0.42(L) 0.70 - 1.20 mg/dL 02/03/2024 11:35 AM T [facility] BUN/CREAT RATIO 33(H) 10 - 20 11:35 AM T [facility] eGFR >90 >90 mL/min/1.7 3m2 02/03/2024 11:35 AM T [facility] Comment:As of 2021, [...] 10:56 AM CDT Dary Carlos MD CHEMISTRY [facility] [address] [place] [address], * SCAN-CARDIAC STRIP (02/03/2024 10:26 AM CDT) [...] Securement/dressing: Biopatch applied, dressing applied. ??Comment: [place] Letter Carrier Additional supplies used to locate vessel: no Needle Catheter size: 20 G. ??Comment:. Catheter length: 4.5 cm. ??Comment: Events: no complications. Enrico Perez MD ANESTHESIA PX N OTE ORDERABLES * (ABNORMAL) ACTIVATED CLOTTING TIME [id number] ACT (02/02/2024 1:59 PM CDT) [facility] ACTIVATED CLOTTING TIME, POCT 308(H) 74 - 125 sec 02/02/2024 3:45 PM CDT [facility] Blood BLOOD SPECIMEN / Unknown 02/02/2024 1:59 PM CDT 02/02/2024 3:45 PM CDT Maria Guadalupe Leong MD HEMATOLOGY Performing Organization Address City/[facility] Co de Phone Number [facility] [address] [place] [address], * HCHG TUBE PR1, HCHG STYLET PR1, [...] Guadalupe Leong MD LABORATORY Performing Organization Address City/[facility]/ZIP Co de Phone Number [facility] [address] [place] [address], * RBC W/O TYPE & SCREEN (02/02/2024 10:27 AM CDT) QUANTITY 4 02/02/2024 10:27 AM CDT [facility] Blood BLOOD SPECIMEN / Unknown 02/02/2024 10:22 AM CDT Jono Malone NP BLOOD BANK Performing Organization Address [facility] Co de Phone Number [facility] [employer]-[facility] BLOOD BANK [address] [place] [address], * DONOR ANTIGEN (02/02/2024 10:22 AM CDT) QUANTITY 4 [facility] BLOOD BANK DONOR ANTIGEN TYPE Donor Antigen Type [facility] Jono Malone NP BLOOD BANK Performing Organization Address [facility] de Phone Number [facility] Innovashop.tvCENTRAL [facility] BLOOD BANK [address] [place] [address], [place] [phone] * RED BLOOD CELLS EA UNIT (02/02/2024 10:22 AM CDT) Only the most recent of4 resultswithin the time period is included. CROSSMATCH Compatible Compatible [facility]ak-[facility] B[facility] PRODUCT BLOOD TYPE A Rh Positive [facility] The[employer]edge[employer]org-C[facility]AL [facility] BLOOD BANK PRODUCT ID NUMBER [id number] [facility] [employer]-[facility]AL [facility] BLOOD BANK PRODUCT STATUS /Relea sed [facility] [employer]-[facility]AL [facility] BLOOD BANK PRODUCT DESCRIPTION RBC -1 LR [facility] [employer]-[facility] BLOOD [facility]ANK PRODUCT CODE [id number] [facility] TravelKnowledgeCENTRAL LAB BLOOD BANK Jono Malone NP BLOOD BANK Performing Organization Address [facility] Co de Phone Number [facility] TravelKnowledgeCENTRAL LAB BLOOD BANK [address] [place] [address], [place] [phone] * SCAN-CARDIAC STRIP (02/02/2024 12:00 AM CDT) Narrative 02/02/2024 12:00 AM CDT Ordered by an unspecified provider. Other Clinical Staff OTHER * (ABNORMAL) TYPE & SCREEN (02/01/2024 9:14 AM CDT) Pathologist [facility] ABORH A Rh Positive 02/01/2024 1:43 PM CDT [facility] BLOOD BANK Comment:Comment: Performed b y Central Laboratory - [facility], [address] [place] [address], [place] [address] ANTIBODY SCREEN Positive(A) Negative 02/01/2024 1:43 PM CDT [facility] BLOOD BANK Comment:Comment: Performed b y [facility] Laboratory - [facility], [address] [place] [address], [place] [address] SPECIMEN EXPIRATION DATE/TIME 02/04/24 23:59 02/01/2024 1:43 PM CDT [facility] BLOOD BANK Blood BLOOD SPECIMEN / Unknown Venipuncture / Unknown 02/01/2024 9:14 AM CDT 02/01/2024 9:21 AM CDT Maria Guadalupe Leong MD BLOOD BANK Performing Organization Address City/State/[facility] Co de Phone Number [facility] BLOOD BANK [address] [place] [address] * (ABNORMAL) ANTIBODY IDENTIFICATION LAB USE ONLY (02/01/2024 9:14 AM CDT) [facility] ANTIBODY IDENTIFICATION Anti-Duff y a(A) 02/01/2024 2:49 PM CDT [facility] BLOOD BANK Comment:Comment: Performed b y Central Laboratory - [facility], [address] [place] [address] [address], [place] [address] Blood BLOOD SPECIMEN / Unknown Venipuncture / Unknown 02/01/2024 9:14 AM CDT 02/01/2024 9:21 AM CDT Narrative [facility] B[facility]OD BANK - 02/01/2024 2:49 [...] Leong MD BLOOD BANK Performing Organization Address City/[facility]/ZIP Co de Phone Number [facility] BLOOD BANK [address] [place] [address] * ANTIBODY IDENTIFICATION EACH PANEL (02/01/2024 9:14 AM CDT) QUANTITY 1 [facility] BLOOD BANK PANEL JOSÉ MIGUEL ID Panel Antibody ID [facility] BLOOD BANK Maria Guadalupe Leong MD BLOOD BANK Performing Organization Address City/[facility]/ZIP Co de Phone Number [facility] BLOOD BANK [address] [place] [address] * SCAN CORRESP-LABORATORY RESULTS (02/01/2024 9:09 AM CDT) Narrative 02/01/2024 9:09 AM CDT Ordered by an unspecified provider. Other Clinical Staff OTHER * US ANKLE BRACHIAL INDEX BILATERAL (12/13/2023 12:19 PM CDT) Anatomical Region Laterality Modality ANKLES, ANKLE L, ANKLE R Ultraso und 12/13/2023 11:2 8 AM CDT Narrative 12/13/2023 2:27 PM CDT VASCULAR ULTRASOUND REPORT MICHEAL RENE Accession#: ?? [id number] : ?[id number] ??Study Date: ?? 12/13/2023 11:28:00 [...] FINDINGS: Unable to find pulse for bilateral BEHAVIORAL THERAPIST and DPA pressures. Right toe/brachial index indicates [...] FINDINGS: Unable to find pulse for bilateral BEHAVIORAL THERAPIST and DPA pressures. Right toe/brachial index indicates [...] theIntersocietal Accreditation Commission (IAC/Vascular),[email or web address] Report generated by [employer]. Final Sasha ANDERSON US * CT ANGIO [...] with the services provided by the [facility] ([facility]). FINDINGS: Lower Chest: Calcified right pleural plaques. [...] CDT Results are automatically released to your Flurry ([employer]) account once available, in compliance with federal [...] - 1.11 mg/dL 12/13/2023 12:34 PM CDT [facility] Comment:Caution: Patients ta camila Hydroxyurea have falsely increased iStat Creatinine results. Verify creatinine results ordering a Creatinine (15981.2) eGFR >90 >90 mL/min/1.7 3m2 12/13/2023 12:34 PM CDT [facility] Comment:As of 2021, eG FR is calculated by the CKD-EPI creatinine equation without race adjustment. eGFR can be influenced by muscle mass, exercise, and diet. The reported eGFR is an estimation only and is only applicable if the renal function is stable. Blood BLOOD SPECIMEN / Unknown 12/13/2023 9:54 AM CDT 12/13/2023 12:34 PM CDT Sasha ANDERSON CHEMISTRY [facility] [address] [place] [address], * Lipid Panel - In AM (07/14/2008 3:00 AM HOUSEPERSON) CHOLESTEROL,TOTAL 141 110 - 199 mg/dL [facility] TRIGLYCERIDES 41 40 - 149 mg/dL [facility] HDL CHOLESTEROL 45 >40 mg/dL [facility] CHOL/HDL RATIO 3.13 <4.51 [facility] LDL CHOLESTEROL 88 <131 mg/dL [facility] PATIENT STATUS Fasting [facility] Blood specimen (specimen) BLOOD SPECIMEN / Unknown 07/14/2008 3:00 AM HOUSEPERSON 07/14/2008 1:52 AM HOUSEPERSON Phyllis Sánchez MD CHEMISTRY [facility] INTERNAL ZIP [address] [place] [address] from Last 3 Months or Most Recently [...] 12 months since positive culture): resides in acute/care home care, receiving hemodialysis, has chronic open wounds/skin [...] 6:44 AM 03/14/2016 5:37 PM Care Teams Editor Department Relationship Specialty Start Date End Date Alex Mata MD [address] [place] [address] PCP - General Family Practice 02/04/20 Ana Mayers [address] [place] [address] Nurse Practitioner 03/02/11 Jak Keys NP [facility] [place] [address] [place] [address] Nurse Practitioner Nurse Practitioner - Adult 10/30/23
== END 2024-03-11 07:57 | disposition home or self-care (01) ==
LOC: WOUND 07:56
PROVIDERS: PCP Family Medicine; Visit Provider Nurse Practitioner Family
DX: M86.671 Other chronic osteomyelitis, right ankle and foot (principal); L89.614 Pressure ulcer of right heel, stage 4; L89.314 Pressure ulcer of right buttock, stage 4; L89.893 Pressure ulcer of other site, stage 3; L89.894 Pressure ulcer of other site, stage 4; L89.514 Pressure ulcer of right ankle, stage 4; I73.9 Peripheral vascular disease, unspecified; Z99.3 Dependence on wheelchair
CPT/HCPCS: 11043; 97597; G0277

== ENCOUNTER 2024-03-18 07:55 | Outpatient (CLI) | payer OTHER, SELFPAY ==
--- OUTSIDE RECORDS SUMMARY | 2024-03-18 07:57 | XMS_ITS | Clinical Summary ---
Author Organization [facility] Address [place], [place] [address] Care Team Providers Care Bar Attendant Name Role Phone Goyoluis aAna Unavailable Alex Mata MD Primary Care Provider + Jak Keys SOA INTEGRATION DEVELOPER Unavailable [phone] Allergies Active Allergy Reactions Criticality Noted Date Comments Blood-Group Specific Substance Other - Describe In Comment Field 04/19/2021 Patient has Sims a (Fya) antibody. Blood products may be delayed. Draw patient 24 hours prior to transfusion. For Skipola testing, draw one red top and two [...] 1-3 OF EACH MONTH Active atorvastatin (LIPITOR) 40 mg tabletIndications :PAD (peripheral artery disease) (HC) Take 1 Tablet (40 mg) by mouth once daily. 90 Tablet 3 03/12/2024 Active atorvastatin (LIPITOR) 20 mg tabletIndications :PAD (peripheral artery disease) (HC) Take 1 Tablet (20 mg) by mouth once daily. 90 Tablet 02/13/2024 03/12/2024 Discontinued (*Medication adjustment) Active Problems Problem Noted Date Diagnosed Date [...] Overview: 09/20/23 bilateral lower extremity arterial ultrasound ([facility]) S/P flap graft 03/06/2020 Neurogenic [...] Encounters Date Type Department Care Team Description 03/12/2024 2:00 PM CDT Office Visit [facility] [address] [place] [address] Maria Guadalupe Smith MD CV Vascular Est (4 week follow up; PAD with non-healing RLE wounds. U/S scheduled prior) 03/12/2024 12:24 PM CDT - 03/12/2024 11:59 PM CDT Hospital Encounter [facility] [address], [place] [address] Maria Guadalupe Smith MD Leistner[facility] PAD (peripheral artery disease) (HC) 03/12/2024 Travel 02/13/2024 Refill [facility] [address] [place] [address] Maria Guadalupe Smith MD Refill Request 02/02/2024 1:04 PM CDT Anesthesia Event [facility] [address] [place] [address] Enrico Perez MD Beulke, Steven William, MARLEN 02/02/2024 10:01 AM CDT - 02/03/2024 1:05 PM CDT Hospital Encounter [facility] [address] [place] [address] Maria Guadalupe Smith MD Taylor, Phillip Norman, MD Erickson, Andrew Richard, MARLEN Discharge Disposition: Home Self Care 02/01/2024 8:53 AM CDT - 02/01/2024 11:59 PM CDT Hospital Encounter [facility] [address] [place] [address] PAD (peripheral artery disease) (HC) 02/01/2024 8:15 AM CDT Office Visit [facility] [address] [place] [address] Raqeul Multani MD [facility] (1989 injury//Mixed conductive and sensorineural hearing loss of left ear with restricted hearing of right ear//Bilateral hearing loss, unspecified hearing loss type//Sensorineural hearing loss (SNHL) of right ear with restricted hearing of left ear) 02/01/2024 Travel 01/19/2024 Telephone [facility] [address] [place] [address] Maria Guadalupe Smith MD Surgery Scheduled 01/17/2024 8:00 AM CDT Office Visit [facility] [address] [place] [address] Maria Guadalupe Smiht MD Consult (blood flow in the right leg, wounds wont heal, stints in hip 3 yrs ago. blood flow is about 1/2 now) 01/17/2024 Travel 01/02/2024 Travel 12/22/2023 Telephone [facility] [address] [place] [address] Paul Bishop MD Referral from Last 3 Months Immunizations Name Administration [...] Sign Reading Time Taken Comments Blood Pressure 122/70 03/12/2024 1:08 PM CDT Pulse 60 03/12/2024 1:08 PM CDT Temperature 36.4 ??C (97.5 ??F) 02/03/2024 8:05 AM CD T Respiratory Rate 16 03/12/2024 1:08 PM CDT Oxygen Saturation 95% 03/12/2024 1:08 PM CDT Inhaled Oxygen Concentration - - Weight 61.2 kg (135 lb) 02/02/2024 11:10 AM CDT Height 182.9 cm (6') 02/02/2024 11:10 AM CDT Body Mass Index 18.31 02/02/2024 11:10 AM CDT Plan of Treatment Upcoming Encounters Date Type Department Care Team (Late st Contact Info) Description 05/03/2024 [phone] Health Maintenance Due Date Last Done Comments [...] 12/26/2008, 09/01/2006 Medical Devices Implanted Type Area Diversity Specialist Device Identifier Shelf Expiration Date Model / Serial / Lot Standard Pacemaker-12/21 Implanted:11/23 by uJdson Jenkins MD (Quantity not on file) Standard Pacemaker Medtronic [id number] / [id number] / Procedures Procedure Name Priority Date/Time Associated Diagnosis Comments US ARTERIAL LOWER EXTREMITY W NHUNG BILATERAL Routine 03/12/2024 1:15 PM CDT PAD (peripheral artery disease) (HC) BASIC METABOLIC PANEL Early AM 02/03/2024 10:42 [...] SCAN CORRESP-LABORATORY RESULTS 02/01/2024 9:09 AM CDT LIPID PANEL Early AM 07/14/2008 3:00 AM SKI TOPPER from Last 3 Months or Most Recently Relevant to Health Maintenance Results * US ARTERIAL LOWER EXTREMITY W NHUNG BILATERAL (03/12/2024 1:15 PM CDT) Anatomical Region Laterality Modality LEGS Ultrasound 03/12/2024 12:3 4 PM CDT Narrative 03/12/2024 5:38 PM CDT VASCULAR ULTRASOUND REPORT MICHEAL RENE Accession#: ?? [id number] : ?1955 ??Study Date: ?? 03/12/2024 12:34:00 PM Age: ?69 years ?? Tech: ? JSL Gender: M ?Referring MD: MARIA GUADALUPE SMITH Site: [facility] Study performed: ?Lower extremity (bilateral), resting NHUNG, TBI, duplex US. Indication for study: Non-healing wound in LE Study Quality: ?Good TECHNIQUE: Lower/upper extremity arteries [...] exam protocol and test requirements. IMPRESSION: 1. Resting ankle-brachial index is borderline on the right at 0.94 and is mildly reduced on the left at 0.87. 2. Toe-brachial index is mildly reduced on the right at 0.63 and toe-brachial index is mildly reduced on the left at 0.69. 3. Multiphasic flow in right leg with transition to monophasicity in distal popliteal artery. 4. Mulitphasic flow in left leg. COMPARISON: Compared to prior study 12/13/2023, Increased rightTBI. FINDINGS: Borderline right NHUNG and mild left NHUNG. Mild bilateral TBI. No stenosis detected bilaterally. Right toe/brachial index indicates mild range. Left toe/brachial index indicates mild range. +--------+ + + RIGHT ?? Velocity cm/s Phasicity ?? +--------+ + + PROCESS AREA SUPERVISOR PRX ? 125 ? multiphasic +--------+ + + PROCESS AREA SUPERVISOR DST ? 148 ? multiphasic +--------+ + + PFA ? 124 ? multiphasic +--------+ + + SFA PRX ? 126 ? multiphasic +--------+ + + SFA MID ? 147 ? multiphasic +--------+ + + SFA DST ? 157 ? multiphasic +--------+ + + RUSLAN PRX ? 60 ? multiphasic +--------+ + + RUSLAN DST ? 80 ? monophasic +--------+ + + RETINAL ANGIOGRAPHER DST ? 58 ? monophasic +--------+ + + DPA ? 49 ? monophasic +--------+ + + +--------+ + + LEFT ? Velocity cm/s Phasicity ?? +--------+ + + PROCESS AREA SUPERVISOR PRX ? 94 ? multiphasic +--------+ + + PROCESS AREA SUPERVISOR DST ? 171 ? multiphasic +--------+ + + PFA ? 110 ? multiphasic +--------+ + + SFA PRX ? 116 ? multiphasic +--------+ + + SFA MID ? 81 ? multiphasic +--------+ + + SFA DST ? 55 ? multiphasic +--------+ + + RUSLAN PRX ? 64 ? multiphasic +--------+ + + RUSLAN DST ? 55 ? multiphasic +--------+ + + RETINAL ANGIOGRAPHER DST ? 37 ? multiphasic +--------+ + + DPA ? 75 ? multiphasic +--------+ + + Criteria: Stenosis ?V. Ratio Mild ?<50% ?<2.0 Moderate ?? 50-74% ?> or = 2.0 Severe ? 75-99% ?> or = 4.0 Occluded ?100% ?? no detectable flow Pressures +-----+ +--------+ +-----+ ? RIGHT (mmHg) ? LEFT (mmHg) ? +-----+ +--------+ +-----+ Index ?124 ? Brachial ?127 ? Index +-----+ +--------+ +-----+ 0.80 ?102 ?RETINAL ANGIOGRAPHER ?90 ? 0.71 +-----+ +--------+ +-----+ 0.94 ?120 ?DPA ?110 ? 0.87 +-----+ +--------+ +-----+ 0.63 ? 80 ? Digit 1 ?87 ? 0.69 +-----+ +--------+ +-----+ Paul Bishop MD. Electronically signed on 03/12/2024 5:38:31 PM This study was performed and interpreted by a service accredited by the Intersocietal Accreditation Commission (IAC/Vascular), [email or web address] Report generated by [employer]. ??Final ?? Procedure Note Paul Bishop MD - 03/12/2024 VASCULAR ULTRASOUND REPORT MICHEAL RENE : 1955 Study Date: 03/12/2024 12:34:00 PM Age: 69 years Tech: ALEXIS Gender: M Referring MD: MARIA GUADALUPE SMITH Site: [facility] Study performed: Lower extremity (bilateral), resting NHUNG, TBI,duplex US. Indication for study: Non-healing wound in LE Study Quality: Good TECHNIQUE: Lower/upper extremity arteries [...] exam protocol and test requirements. IMPRESSION: 1. Resting ankle-brachial index is borderline on the right at 0.94 and ismildly reduced on the left at 0.87. 2. Toe-brachial index is mildly reduced on the right at 0.63 andtoe-brachial index is mildly reduced on the left at 0.69. 3. Multiphasic flow in right leg with transition to monophasicity indistal popliteal artery. 4. Mulitphasic flow in left leg. COMPARISON: Compared to prior study 12/13/2023, Increased rightTBI. FINDINGS: Borderline right NHUNG and mild left NHUNG. Mild bilateral TBI. No stenosis detected bilaterally. Right toe/brachial index indicates mild range. Left toe/brachial index indicates mild range. +--------+ + + RIGHT Velocity cm/s Phasicity +--------+ + + PROCESS AREA SUPERVISOR PRX 125 multiphasic +--------+ + + PROCESS AREA SUPERVISOR DST 148 multiphasic +--------+ + + PFA 124 multiphasic +--------+ + + SFA PRX 126 multiphasic +--------+ + + SFA MID 147 multiphasic +--------+ + + SFA DST 157 multiphasic +--------+ + + RUSLAN PRX 60 multiphasic +--------+ + + RUSLAN DST 80 monophasic +--------+ + + RETINAL ANGIOGRAPHER DST 58 monophasic +--------+ + + DPA 49 monophasic +--------+ + + +--------+ + + LEFT Velocity cm/s Phasicity +--------+ + + PROCESS AREA SUPERVISOR PRX 94 multiphasic +--------+ + + PROCESS AREA SUPERVISOR DST 171 multiphasic +--------+ + + PFA 110 multiphasic +--------+ + + SFA PRX 116 multiphasic +--------+ + + SFA MID 81 multiphasic +--------+ + + SFA DST 55 multiphasic +--------+ + + RUSLAN PRX 64 multiphasic +--------+ + + RUSLAN DST 55 multiphasic +--------+ + + RETINAL ANGIOGRAPHER DST 37 multiphasic +--------+ + + DPA 75 multiphasic +--------+ + + Criteria: Stenosis V. Ratio Mild <50% <2.0 Moderate 50-74% > or = 2.0 Severe 75-99% > or = 4.0 Occluded 100% no detectable flow Pressures +-----+ +--------+ +-----+ RIGHT (mmHg) LEFT (mmHg) +-----+ +--------+ +-----+ Index 124 Brachial 127 Index +-----+ +--------+ +-----+ 0.80 102 RETINAL ANGIOGRAPHER 90 0.71 +-----+ +--------+ +-----+ 0.94 120 DPA 110 0.87 +-----+ +--------+ +-----+ 0.63 80 Digit 1 87 0.69 +-----+ +--------+ +-----+ Paul Bishop MD. Electronically signed on 03/12/2024 5:38:31 PM This study was performed and interpreted by a service accredited by theIntersocietal Accreditation Commission (IAC/Vascular),[email or web address] Report generated by [employer]. Final Maria Guadalupe Smith MD US * (ABNORMAL) CBC (02/03/2024 10:42 AM CDT) Only the most recent of2 resultswithin the time period is included. WHITE BLOOD COUNT 5.9 4.5 - 11.0 thou/cu mm 02/03/2024 11:20 AM CDT [facility] RED BLOOD COUNT 3.57(L) 4.30 - 5.90 mil/cu mm 02/03/2024 11:20 AM CDT [facility] HEMOGLOBIN 9.5(L) 13.5 - 17.5 g/dL 02/03/2024 11:20 AM CDT [facility] HEMATOCRIT 30.9(L) 37.0 - 53.0 % 02/03/2024 11:20 AM CDT [facility] MCV 87 80 - 100 fL 02/03/2024 11:20 AM CDT [facility] MCH 26.6 26.0 - 34.0 pg 02/03/2024 11:20 AM CDT [facility] MCHC 30.7(L) 32.0 - 36.0 g/dL 02/03/2024 11:20 AM CDT [facility] RDW 13.5 11.5 - 15.5 % 02/03/2024 11:20 AM CDT [facility] PLATELET COUNT 211 140 - 440 thou/cu mm 02/03/2024 11:20 AM CDT [facility] MPV 8.3 6.5 - 11.0 fL 02/03/2024 11:20 AM CDT [facility] NRBC 0.0 % 02/03/2024 11:20 AM CDT [facility] ABS NRBC 0.0 thou /cu mm 02/03/2024 11:20 AM CDT [facility] Blood BLOOD SPECIMEN / Unknown Venipuncture / Unknown 02/03/2024 10:42 AM CDT 02/03/2024 10:56 AM CDT [facility] LABORATORY - 02/03/2024 11:20 AM CDT Call if Hemoglobin less than 10. Dary Carlos MD HEMATOLOGY [facility] [address] [place] [address], * (ABNORMAL) Basic Metabolic Panel (02/03/2024 10:42 AM CDT) Only the most recent of2 resultswithin the time period is included. SODIUM 139 136 - 145 mmol/L 02/03/2024 11:35 AM [facility] POTASSIUM 4.7 3.5 - 5.1 mmol/L 02/03/2024 11:35 AM [facility] CHLORIDE 107 98 - 107 mmol/L 02/03/2024 11:35 AM [facility] CO2,TOTAL 26 22 - 29 mmol/L 02/03/2024 11:35 AM [facility] ANION GAP 6 5 - 18 02/03/2024 11:35 AM [facility] GLUCOSE 139(H) 70 - 99 mg/dL 02/03/2024 11:35 AM [facility] CALCIUM 8.3(L) 8.8 - 10.2 mg/dL 02/03/2024 11:35 AM [facility] BUN 14 8 - 23 mg/dL 02/03/2024 11:35 AM [facility] CREATININE 0.42(L) 0.70 - 1.20 mg/dL 02/03/2024 11:35 AM [facility] BUN/CREAT RATIO 33(H) 10 - 20 11:35 AM [facility] eGFR >90 >90 mL/min/1.7 3m2 02/03/2024 11:35 AM CDT [facility] Comment:As of [...] 10:56 AM CDT Dary Carlos MD CHEMISTRY [facility]ORY-C[facility]AL LABORATORY [address] [place] [address], * SCAN-CARDIAC STRIP (02/03/2024 10:26 AM CDT) [...] Securement/dressing: Biopatch applied, dressing applied. ??Comment: Vessel Post Doctoral Fellow Additional supplies used to locate vessel: no Needle Catheter size: 20 G. ??Comment:. Catheter length: 4.5 cm. ??Comment: Events: no complications. Enrico Perez MD ANESTHESIA PX N OTE ORDERABLES * (ABNORMAL) ACTIVATED CLOTTING TIME [id number] ACT (02/02/2024 1:59 PM CDT) Pathologist [facility] ACTIVATED CLOTTING TIME, POCT 308(H) 74 - 125 sec 02/02/2024 3:45 PM CDT [facility] Blood BLOOD SPECIMEN / Unknown 02/02/2024 1:59 PM CDT 02/02/2024 3:45 PM CDT Maria Guadalupe Simth MD HEMATOLOGY Performing Organization Address City/[facility]/ZIP Co de Phone Number [facility] [address] [place] [address], * HCHG TUBE PR1, HCHG STYLET PR1, [...] CDT 02/02/2024 12:40 PM CDT Maria Guadalupe Smith MD LABORATORY Performing Organization Address City/[facility] Co de Phone Number [facility] [address] [place] [address], [place] * RBC W/O TYPE & SCREEN (02/02/2024 10:27 AM CDT) Pathologist [facility] QUANTITY 4 02/02/2024 10:27 AM CDT [facility] LAB-CENTRAL LAB BLOOD BANK Blood BLOOD SPECIMEN / Unknown 02/02/2024 10:22 AM CDT Jono Malone NP BLOOD BANK Performing Organization Address [facility] Co de Phone Number [facility] avox-CENTRAL LAB BLOOD BANK [address] [place] [phone], * DONOR ANTIGEN (02/02/2024 10:22 AM CDT) Pathologist [facility] QUANTITY 4 [facility] LAB-CENTRAL LAB BLOOD BANK DONOR ANTIGEN TYPE Donor Antigen Type [facility]-CENTRAL LAB BLOOD BANK Jono Malone NP BLOOD BANK Performing Organization Address [facility] de Phone Number [facility] avox-CENTRAL LAB BLOOD BANK [address] [place] [address], [place] [phone] * RED BLOOD CELLS EA UNIT (02/02/2024 10:22 AM CDT) Only the most recent of4 resultswithin the time period is included. [facility] CROSSMATCH Compatible Compatible [facility] [employer]-CENTRAL LAB BLOOD BANK PRODUCT BLOOD TYPE A Rh Positive [facility]-CENTRAL LAB BLOOD BANK PRODUCT ID NUMBER [id number] [facility]-CENTRAL LAB BLOOD BANK PRODUCT STATUS /Relea sed [facility]-CENTRAL LAB BLOOD BANK PRODUCT DESCRIPTION RBC -1 LR [facility]-CENTRAL LAB BLOOD BANK PRODUCT CODE [id number] [facility] avox-CENTRAL LAB BLOOD BANK Jono Malone NP BLOOD BANK Performing Organization Address [facility] Co de Phone Number [facility] avox-CENTRAL LAB BLOOD BANK [address] [place] [address], [place] [phone] * SCAN-CARDIAC STRIP (02/02/2024 12:00 AM CDT) Narrative 02/02/2024 12:00 AM CDT Ordered by an unspecified provider. Other Clinical Staff OTHER * (ABNORMAL) TYPE & SCREEN (02/01/2024 9:14 AM CDT) Pathologist [facility] ABORH A Rh Positive 02/01/2024 1:43 PM CDT [facility] BLOOD BANK Comment:Comment: Performed b y [facility] [employer] [facility], [address] [place] [address] [address], [place] [address] ANTIBODY SCREEN Positive(A) Negative 02/01/2024 1:43 PM CDT [facility] BLOOD BANK Comment:Comment: Performed b y [facility], [address] [place] [address] [address], [place] [address] SPECIMEN EXPIRATION DATE/TIME 02/04/24 23:59 02/01/2024 1:43 PM CDT [facility] BLOOD BANK Blood BLOOD SPECIMEN / Unknown Venipuncture / Unknown 02/01/2024 9:14 AM CDT 02/01/2024 9:21 AM CDT Maria Guadalupe Smith MD BLOOD BANK [facility] BLOOD BANK [address] [place] [address] * (ABNORMAL) ANTIBODY IDENTIFICATION LAB USE ONLY (02/01/2024 9:14 AM CDT) [facility] ANTIBODY IDENTIFICATION Anti-Duff y a(A) 02/01/2024 2:49 PM CDT [facility] BLOOD BANK Comment:Comment: Performed b y [facility] [employer] [facility], [address] [place] [address] [address], [place] [address] Blood BLOOD SPECIMEN / Unknown Venipuncture / Unknown 02/01/2024 9:14 AM CDT 02/01/2024 9:21 AM CDT Narrative [facility] BLOOD BANK - 02/01/2024 2:49 [...] please contact the performing laboratory Maria Guadalupe Smith MD BLOOD BANK [facility] BLOOD BANK [address] [place] [address] * ANTIBODY IDENTIFICATION EACH PANEL (02/01/2024 9:14 AM CDT) Pathologist [facility] QUANTITY 1 [facility] BLOOD BANK PANEL JOSÉ MIGUEL ID Panel Antibody ID [facility] BLOOD BANK Maria Guadalupe Smith MD BLOOD BANK Performing Organization Address [facility]/ZIP Co de Phone Number [facility] BLOOD BANK [address] [place] [address] * SCAN CORRESP-LABORATORY RESULTS (02/01/2024 9:09 AM CDT) Narrative 02/01/2024 9:09 AM CDT Ordered by an unspecified provider. Other Clinical Staff OTHER * Lipid Panel - In AM (07/14/2008 3:00 AM SKI TOPPER) [facility] CHOLESTEROL,TOTAL 141 110 - 199 mg/dL [facility] TRIGLYCERIDES 41 40 - 149 mg/dL [facility] HDL CHOLESTEROL 45 >40 mg/dL [facility] CHOL/HDL RATIO 3.13 <4.51 [facility] LDL CHOLESTEROL 88 <131 mg/dL [facility] PATIENT STATUS Fasting [facility] Blood specimen (specimen) BLOOD SPECIMEN / Unknown 07/14/2008 3:00 AM SKI TOPPER 07/14/2008 1:52 AM SKI TOPPER Phyllis Sánchez MD CHEMISTRY [facility] INTERNAL ZIP [phone] [address] from Last 3 Months or Most Recently [...] 12 months since positive culture): resides in acute/piper installer care, receiving hemodialysis, has chronic open wounds/skin [...] 6:44 AM 03/14/2016 5:37 PM Care Teams Bar Attendant Relationship Specialty Start Date End Date Alex Mata MD [address] [place] [address] PCP - General Family Practice 02/04/20 Ana Mayers [address] [place] [id number] Nurse Practitioner 03/02/11 Jak Keys NP [address] [place] [address] Nurse Practitioner Nurse Practitioner - Adult 10/30/23
--- OUTSIDE RECORDS SUMMARY | 2024-03-18 07:57 | XMS_ITS | Data Portability ---
Author Organization [facility], [facility] Address [address] [place] [address] Care Team Providers Care Electrician'S Assistant Name Role Phone CHETNA MERAZ Primary Care Provider [phone] RAHUL OCONNOR Briar Wood Sorter Assessment Encounter Date Assessment Date Assessment LastModified [...] None recorded. Lab culture, urine 2020 021 [facility], [address], [place], [address], 07:39:35 urinalysis, dipstick 2020 021 marie Not available 10/20/202 1 11:34:22 Referral None recorded. Procedures None recorded. Surgeries None recorded. Imaging US, kidney 2021 022 [facility], [address] [place], [address], 2 09:00:29 Medication Orders oxybutynin chloride ER 15 mg tablet,exte nded release 24 hr 2021 022 [facility][id number], [address], [place], [place], [id number], 2 12:53:22 nitrofurant oin macrocrysta l 50 mg capsule [address] [facility]85868, [address], [place], [place], [id number], 4 08:10:56 nitrofurant oin macrocrysta l 50 mg capsule [address] [facility]88308, [address], [place], [place], [id number], 4 08:10:56 oxybutynin chloride ER 15 mg tablet,exte nded release 24 hr 2022 023 [facility] #45923, [address] , [place], [place], [id number], 3 12:15:06 methenamine hippurate 1 gram tablet [address] [facility]86781, [address] , [place], [place], [id number], 4 23:05:30 methenamine hippurate 1 gram tablet 2023 024 [facility] #82544, [address] , [place], [place], [id number], 4 23:05:37 oxybutynin chloride ER 15 mg tablet,exte nded release 24 hr 2023 024 [facility]396, [address] , [place], [id number], 4 23:04:50 Patient TargetsNo targets recorded. Patient InstructionsNo instructions recorded. Reason for Referral None Reported. Results Created Date Observation Date Name Description Value Unit Range Abnormal Flag LastModifiedBy Organization Detail LastModifiedTime 05/12/2021 urina lysis , dipst ick Color-Status Yellow Not Available [facility] [address], [place], [address], 05/12/2021 11:33:40 05/12/2021 urina lysis , dipst ick Clarity-Stat us Cloudy Not Available [facility] [address], [place], [address], 05/12/2021 11:33:40 05/12/2021 urina lysis , dipst ick pH-Status 7.5 Not Available [facility] [address], [place], [address], 05/12/2021 11:33:40 05/12/2021 urina lysis , dipst ick Nitrates-Sta tus positi ve Not Available [facility] [address], [place], [address], 05/12/2021 11:33:40 05/12/2021 urina lysis , dipst ick Blood-Status Small Not Available [facility] [address], [place], [address], 05/12/2021 11:33:40 05/12/2021 urina lysis , dipst ick Leuko-Status Large Not Available [facility] [address], [place], [address], 05/12/2021 11:33:40 05/06/20 21 05/06/2021 URINE CULTU RE final report MICROB IOLOGY RESULT S abnormal Not Available [facility] [address] [facility], [place], [address], 05/08/2021 07:39:35 10/07/19 22 10/05/2021 US, kidne y No observ ation record ed. [address] Radiology Department [address] [place], [address], 09/28/2022 13:47:50 Result Notes None recorded. Procedures Surgical History Date Name Laterality Status Provider Name and Address Organization Details Recorded Time 4 COMPLEX VISIT completed Jono Pagan MD [address], [place], [address], [place] [facility] 11/01/2023 08:09:54 excision of pressure injury completed Jono Pagan MD [address] [facility] [address] [facility],[address], [place], [address], [place] [facility] 09/28/2022 11:00:08 maintenance procedure for cardiac pacemaker system completed Veronika hwang [facility] 11/01/2023 11:05:10 Imaging Results Imaging Date Name Status LastModified by Organiz ation Details LastModified Time 10/05/2021 US, kidney completed [address] Radiology Department [address] [place], [address], 09/28/2022 13:47:50 Procedure Notes None recorded. Medical Equipment None Reported. Allergies Allergen ID Allergen Name Allergen Category Reaction Reaction Severity Criticality Documentation Date Start Date Code Code System Note Provider Name and Address Organization Details Recorded Time 800250 Medicinal product containin g cephalosp pao and acting as antibacte rial agent (product) medicatio n Not available Not available Not available 09/27/2021 28350 9009 SNOMED Nasreen Maritza hwang [facility] 2 12:43:20 [id number] shellfish derived food,medi cation Not available Not available Not available 11/01/2023 Veronika Arianna hwang, [place] - [facility] 4 11:03:08 Medications Name [...] Updated DateTime 09/28/2022 182.88 cm 19.4 kg/m2 06570.71 g Veronika Begum [facility] 09/28/2022 10:55:01 Date Recorded Body height Body mass index (BMI) Body weight Provider Name and Address Organization Details Last Updated DateTime 04/28/2023 182.88 cm 19.4 kg/m2 07764.71 g Mindy Malone [facility] 04/28/2023 11:39:29 Date Recorded Body height Body mass index (BMI) Body weight Provider Name and Address Organization Details Last Updated DateTime 10/12/2023 182.88 cm 19.4 kg/m2 84188.71 g Veronika Begum [facility] 10/12/2023 12:26:19 Date Recorded Body height Body mass index (BMI) Body weight Provider Name and Address Organization Details Last Updated DateTime 11/01/2023 182.88 cm 18.7 kg/m2 16011.75 g Veronika Begum [facility] 11/01/2023 11:02:57 Date Recorded Body height Body mass index (BMI) Body weight Provider Name and Address Organization Details Last Updated DateTime 05/06/2021 182.88 cm 19.4 kg/m2 62482.71 g Chelsea Medrano [facility] 05/06/2021 12:47:45 Date Recorded Body height Body mass index (BMI) Body weight Provider Name and Address Organization Details Last Updated DateTime 09/27/2021 182.88 cm 19.4 kg/m2 68578.71 g Nasreen Salas [facility] 09/27/2021 12:43:07 Social History Question Answer Notes LastModified by Organizat ion Details LastModified Time Tobacco Smoking Status [facility] 14:55:09 What Is Your Level Of [...] mcg/0.3 mL dose 09/14/2020 completed Mindy hwang [facility] 04/28/2023 11:39:35 Pneumococcal conjugate PCV20, polysaccharide DVO700 conjugate, adjuvant, PF 12/01/2022 completed Mindy hwang [facility] 04/28/2023 11:39:35 influenza, unspecified formulation 05/24/2006 completed Mindy hwang [facility] 04/28/2023 11:39:35 Tdap 09/01/2006 completed Mindy hwang [facility] 04/28/2023 11:39:35 Tdap 12/26/2008 [facility]2023 11:39:35 zoster live 01/29/2015 completed Mindy hwang [facility] 04/28/2023 11:39:35 Influenza, split virus, trivalent, PF 03/25/2011 completed Mindy hwagn [facility] 04/28/2023 11:39:35 Influenza, split virus, trivalent, PF 05/24/2012 [facility] 11:39:35 Td (adult), 2 Lf tetanus toxoid, preservative free, adsorbed 03/21/1997 completed Mindy hwang [facility] 04/28/2023 11:39:35 Hep B, adult 09/01/2006 completed Mindy hwang, [facility] 04/28/2023 11:39:35 Hep B, adult 11/19/2004 completed Mindy hwang, [facility] 04/28/2023 11:39:35 Hep B, adult 03/30/2007 completed Mindy hwang, [facility] 04/28/2023 11:39:35 Hep A, adult 09/30/2002 completed Mindy hwang, [facility] 04/28/2023 11:39:35 Hep A, adult 11/19/2004 completed Mindy hwang [facility] 04/28/2023 11:39:35 Hep A, adult 05/01/2003 completed Mindy hwang [facility] 04/28/2023 11:39:35 typhoid, ViCPs 09/01/2006 completed Mindy hwang [facility] 04/28/2023 11:39:35 typhoid, ViCPs 09/30/2002 completed Mindy hwang [facility] 04/28/2023 11:39:35 Past Encounters Encounter ID Performer Location Encounter Start Date Encounter Closed Date Diagnosis/Indication Diagnosis SNOMED-CT Code [id number] MD KIKE [facility] [address] [place] [address] 02/18/2021 14:23:42 02/19/2021 12:13:21 Neurogenic urinary bladder 771204982 Spinal cord injury 25920 004 Spasm of u rinary bladder 494355058 Recurrent urinary tract infection 518517297 Acute urin estefany tract infection 742968244 [id number] Marlene Greer [facility] [address] [place] [address] 05/06/2021 11:58:15 05/11/2021 03:52:30 Abnormal urine [id number] Jono Pagan MD [facility] [address] [place] [address] 09/27/2021 12:37:54 10/27/2021 09:29:43 Neurogenic urinary bladder 825568214 Spinal cord injury 44291 004 Spasm of u rinary bladder 058061137 Recurrent urinary tract infection 491330315 [id number] [facility] [address] [place] [address] 09/28/2022 10:53:21 10/01/2022 11:26:52 Neurogenic urinary bladder 298166888 Spinal cord injury 88929 004 Spasm of u rinary bladder 785135965 Recurrent urinary tract infection [id number] Jono Pagan MD [facility] [address] [place] [address] 04/28/2023 11:30:11 05/04/2023 11:13:13 Neurogenic urinary bladder 410098451 Spinal cord injury 13187 004 Spasm of u rinary bladder 034336253 Recurrent urinary tract infection [id number] [facility] [address] [place] [address] 11/01/2023 10:52:02 11/02/2023 14:01:41 Neurogenic urinary bladder 956610963 Spinal cord injury 14930 004 Spasm of u rinary bladder 636015311 Recurrent urinary tract infection 636264383 Health Concerns Section Related Observation LastModified by Organization Detai ls LastModified Time None Recorded Concern Status LastModified by Organization Details LastModified Time None Recorded Advance Directives Directive None Recorded Payers Encounter Date Sequence Insurance Name Policy Number Policy Quinones Covered Member ID Quinones Member ID Guarantor Name 05/06/2021 [facility] [employer] [id number] Levar Rios [facility] Khanh Rene 09/27/2021 1 [facility] (MEDICARE REPLACEMENT/AD VANTAGE - PPO) [id number] Khanh Rene [id number] Khanh Rene 09/28/2022 [facility] [employer] [id number] Levar Rios [facility] Khanh Rene 04/28/2023 1 [facility] (MEDICARE REPLACEMENT/AD VANTAGE - PPO) [id number] Khanh Rene [id number] Khanh Rene 11/01/2023 [facility] [id number] Levar Rios [facility] Khanh Gordon [place] Notes Date Note Type Note Provider Name and Address Organization Details Recorded Time 05/06/2021 text/html HPI Notes: Pt he re for UA/UC due to low back ache, cloudy urine with sediment present X 1.5 weeks. pt given cipro 500mg BID pending culture. 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 Jono Pagan MD [address] [place] [address],[address], [place], [address], [facility] [...] MD [address] [facility],[address], [place], [address], [facility] [...] the summer. Jono Pagan MD [address] [address] [facility],[address], [place], [address], [facility] [...] MD [address], [place], [address], [facility] 11/01/2023 23:05:58
== END 2024-03-18 07:56 | disposition home or self-care (01) ==
LOC: WOUND 07:55
PROVIDERS: PCP Family Medicine; Visit Provider Physician Assistant Surgical
DX: M86.671 Other chronic osteomyelitis, right ankle and foot (principal); L89.614 Pressure ulcer of right heel, stage 4; L89.893 Pressure ulcer of other site, stage 3; L89.314 Pressure ulcer of right buttock, stage 4; L89.514 Pressure ulcer of right ankle, stage 4; L89.894 Pressure ulcer of other site, stage 4; I73.9 Peripheral vascular disease, unspecified; Z99.3 Dependence on wheelchair
CPT/HCPCS: 11042; 11043; 11044; G0277

== ENCOUNTER 2024-03-20 08:00 | Outpatient (RCR) | payer OTHER, SELFPAY | END 2024-03-23 23:59 | disposition home or self-care (01) | LOC: WOUND 08:00 | PROVIDERS: PCP Family Medicine; Visit Provider Nurse Practitioner Family | DX: M86.671 Other chronic osteomyelitis, right ankle and foot (principal); L89.614 Pressure ulcer of right heel, stage 4; L89.894 Pressure ulcer of other site, stage 4; L89.893 Pressure ulcer of other site, stage 3; L89.314 Pressure ulcer of right buttock, stage 4; I73.9 Peripheral vascular disease, unspecified; H60.311 Diffuse otitis externa, right ear; Z99.3 Dependence on wheelchair | CPT/HCPCS: G0277 ==

== ENCOUNTER 2024-03-26 07:54 | Outpatient (CLI) | payer OTHER, SELFPAY ==
--- OUTSIDE RECORDS SUMMARY | 2024-03-26 07:58 | XMS_ITS | Data Portability ---
Author Organization [facility], [facility] Address [address] [place] [address] Care Team Providers Care Container Filler Name Role Phone CHETNA MERAZ Primary Care Provider RAHUL OCONNOR Repairer Welding Equipment Assessment Encounter Date Assessment Date Assessment LastModified [...] None recorded. Lab culture, urine 2020 021 [facility], [address], [place], [address], 07:39:35 urinalysis, dipstick 2020 021 marie Not available 10/20/202 1 11:34:22 Referral None recorded. Procedures None recorded. Surgeries None recorded. Imaging US, kidney 2021 022 [facility] Radiology Department, [address] [facility] [place], [address], 2 09:00:29 Medication Orders oxybutynin chloride ER 15 mg tablet,exte nded release [address] [facility]30, [address], [place], [place], [id number], 2 12:53:22 nitrofurant oin macrocrysta l 50 mg capsule [address] [facility]80, [address], [place], [place], [id number], 4 08:10:56 nitrofurant oin macrocrysta l 50 mg capsule [address] [facility]96003, [address], [place], [place], [id number], 4 08:10:56 oxybutynin chloride ER 15 mg tablet,exte nded release [address] [facility] #55290, [address] , [place], [place], [id number], 3 12:15:06 methenamine hippurate 1 gram tablet [address] [facility]67729, [address] , [place], [place], [id number], 4 23:05:30 methenamine hippurate 1 gram tablet [address] [facility] #63319, [address] , [place], [place], [id number], 4 23:05:37 oxybutynin chloride ER 15 mg tablet,exte nded release 24 hr 2023 024 [facility], [address] , [place], [id number], 4 23:04:50 Patient TargetsNo targets recorded. Patient InstructionsNo instructions recorded. Reason for Referral None Reported. Results Created Date Observation Date Name Description Value Unit Range Abnormal Flag Note LastModifiedBy Organization Detail LastModifiedTime 05/12/2021 urina lysis , dipst ick Color-Status Yellow Not Available [facility] [address], [place], [address], 05/12/2021 11:33:40 05/12/2021 urina lysis , dipst ick Clarity-Stat us Cloudy Not Available [facility] [address], [place], [address], 05/12/2021 11:33:40 05/12/2021 urina lysis , dipst ick pH-Status 7.5 Not Available [facility] [address], [place], [address], 05/12/2021 11:33:40 05/12/2021 urina lysis , dipst ick Nitrates-Sta tus positi ve Not Available [facility] [address], [place], [address], 05/12/2021 11:33:40 05/12/2021 urina lysis , dipst ick Blood-Status Small Not Available [facility] [address], [place], [address], 05/12/2021 11:33:40 05/12/2021 urina lysis , dipst ick Leuko-Status Large Not Available [facility] [address], [place], [address], 05/12/2021 11:33:40 05/06/20 21 05/06/2021 URINE CULTU RE final report MICROB IOLOGY RESULT S abnormal SOURC E Void KNOWN ALLER GIFAIZAN nkda TREAT MENT n/a MEDIA PLATE D AT: Media plate d on 05/06 @ 4:57 PM COLON Y COUNT >100, 000 cfu/m l RESUL T Prote us vulga ris (Isol ate 1) RESUL T Prote us vulga ris (Isol ate 2)-Di ffere nt Morph ologi c and Sensi tivit y Type Sensi tivit y Coleen sis Swink te 1 Swink te 2 ----- ----- ----- ----- ----- ----- ----- - ----- ----- ----- - AMOX/ K CLAV <=8/4 *S <=8/4 *S AMP/S ULBAC UMANA <=8/4 *S <=8/4 *S AMPIC ILLIN >16 R >16 R AZTRE ONAM <=4*S <=4*S CEFTA ZIDIM E <=1*S <=1*S CEFTR IAXON E 32 R <=1*S CEFUR OXIME >16 R >16 R CIPRO FLOXA RYAN <=1*S <=1*S LEVOF LOXAC IN <=2*S <=2*S NITRO FURAN TOIN >64 R >64 R PIP/T AZO <=16* S <=16* S TETRA CYCLI NE <=4 R <=4 R TRIME TH/LIM LFA <=2/3 8*S <=2/3 8*S TRIME THOPR IM <=8*S <=8*S Orga nisms that are susce ptibl e to tetra cycli ne are gener ally also susce ptibl e to doxyc yclin e and minoc yclin e. Any subst ituti on of drugs which have not been teste d for sensi tivit y shoul d be consi dered based on appro yun usage of the drugs . Infor matjuli n on doxyc yclin e and minoc yclin e can be found in the Physi elle' s Desk Refer ence or from the [facility] actur er. S= Susce ptibl e;I= Inter media te;R= Resis tant; ESBL= Resis tance due to confi rmed ESBL Not Available [facility] [address], [place], [address], 05/08/2021 07:39:35 10/07/19 22 10/05/2021 US, kidne y No observ ation record ed. [address] Radiology Department [address] [place], [address], 09/28/2022 13:47:50 Result Notes None recorded. Procedures Surgical History Date Name Laterality Status Provider Name and Address Organization Details Recorded Time 4 COMPLEX VISIT completed Jono Pagan MD [address], [place], [address], [place] [facility] 11/01/2023 08:09:54 excision of pressure injury completed Jono Pagan MD [address], [place], [address], [place] [facility] 09/28/2022 11:00:08 maintenance procedure for cardiac pacemaker system completed Veronika hwang [facility] 11/01/2023 11:05:10 Imaging Results Imaging Date Name Status LastModified by Organiz ation Details LastModified Time 10/05/2021 US, kidney completed [address] Radiology Department [address] [place], [address], 09/28/2022 13:47:50 Procedure Notes None recorded. Medical Equipment None Reported. Allergies Allergen ID Allergen Name Allergen Category Reaction Reaction Severity Criticality Documentation Date Start Date Code Code System Note Provider Name and Address Organization Details Recorded Time 300303 Medicinal product containin g cephalosp pao and acting as antibacte rial agent (product) medicatio n Not available Not available Not available 09/27/2021 40562 9009 SNOMED Nasreenerasmo hwang [facility] 2 12:43:20 [id number] shellfish derived food,medi cation Not available Not available Not available 11/01/2023 Veronika hwang [place] [facility] 4 11:03:08 Medications Name Sig Start [...] Updated DateTime 09/28/2022 182.88 cm 19.4 kg/m2 22538.71 g Veronika Begum [facility] 09/28/2022 10:55:01 Date Recorded Body height Body mass index (BMI) Body weight Provider Name and Address Organization Details Last Updated DateTime 04/28/2023 182.88 cm 19.4 kg/m2 75697.71 g Mindy Malone [facility] 04/28/2023 11:39:29 Date Recorded Body height Body mass index (BMI) Body weight Provider Name and Address Organization Details Last Updated DateTime 10/12/2023 182.88 cm 19.4 kg/m2 58342.71 g Veronika Begum [facility] 10/12/2023 12:26:19 Date Recorded Body height Body mass index (BMI) Body weight Provider Name and Address Organization Details Last Updated DateTime 11/01/2023 182.88 cm 18.7 kg/m2 25834.75 g Veronika Begum [facility] 11/01/2023 11:02:57 Date Recorded Body height Body mass index (BMI) Body weight Provider Name and Address Organization Details Last Updated DateTime 05/06/2021 182.88 cm 19.4 kg/m2 35491.71 g Chelsea Medrano [facility] 05/06/2021 12:47:45 Date Recorded Body height Body mass index (BMI) Body weight Provider Name and Address Organization Details Last Updated DateTime 09/27/2021 182.88 cm 19.4 kg/m2 09975.71 g Nasreen Salas [facility] 09/27/2021 12:43:07 Social History Question Answer Notes LastModified by Organizat ion Details LastModified Time Tobacco Smoking Status [facility] 14:55:09 What Is Your Level Of Alcohol Consumption? Occasional Information not available 02/18/2021 What Is Your Level Of Caffeine Consumption? Moderate Information not available 02/18/2021 When Did You Quit Smoking? 16+yearssincel karla Information not available 02/18/2021 What Was The [...] Recorded Time IPV 11/19/2004 completed Mindy hwang [facility] 04/28/2023 11:39:35 COVID-19, mRNA, LNP-S, PF, 30 mcg/0.3 mL dose 08/20/2020 completed Mindy hwang [facility] 04/28/2023 11:39:35 COVID-19, mRNA, LNP-S, PF, 30 mcg/0.3 mL dose 09/14/2020 completed Mindy hwang [facility] 04/28/2023 11:39:35 Pneumococcal conjugate PCV20, polysaccharide [id number] conjugate, adjuvant, PF 12/01/2022 completed Mindy hwang [facility] 04/28/2023 11:39:35 influenza, unspecified formulation 05/24/2006 maki hwang [facility] 04/28/2023 11:39:35 Tdap 09/01/2006 completed Mindy hwang [facility] 04/28/2023 11:39:35 Tdap 12/26/2008 completed Mindy hwang [facility] 04/28/2023 11:39:35 zoster live 01/29/2015 completed Mindy hwang [facility] 04/28/2023 11:39:35 Influenza, split virus, trivalent, PF 03/25/2011 completed Mindy hwang [facility] 04/28/2023 11:39:35 Influenza, split virus, trivalent, PF 05/24/2012 completed Mindy hwang, [facility] 04/28/2023 11:39:35 Td (adult), 2 Lf tetanus toxoid, preservative free, adsorbed 03/21/1997 completed Mindy hwang, [facility] 04/28/2023 11:39:35 Hep B, adult 09/01/2006 completed Mindy hwang, [facility] 04/28/2023 11:39:35 Hep B, adult 11/19/2004 completed Mindy hwang, [facility] 04/28/2023 11:39:35 Hep B, adult 03/30/2007 completed Mindy hwang, [facility] 04/28/2023 11:39:35 Hep A, adult 09/30/2002 completed Mnidy hwang, [facility] 04/28/2023 11:39:35 Hep A, adult 11/19/2004 completed Mindy hwang, [facility] 04/28/2023 11:39:35 Hep A, adult 05/01/2003 completed Mindy hwang, [facility] 04/28/2023 11:39:35 typhoid, ViCPs 09/01/2006 completed Mindy hwang, [facility] 04/28/2023 11:39:35 typhoid, ViCPs 09/30/2002 completed Mindy hwang, [facility] 04/28/2023 11:39:35 Past Encounters Encounter ID Performer Location Encounter Start Date Encounter Closed Date Diagnosis/Indication Diagnosis SNOMED-CT Code Diagnosis ICD10 Code [id number] MD KIKE [facility] [address] [place] [address] 02/18/2021 14:23:42 02/19/2021 12:13:21 Neurogenic urinary bladder 904044556 N31.9 Spinal cord injury 64769 004 G95.89 Spasm of u rinary bladder 688937662 N32.89 Recurrent urinary tract infection 434525045 N39.0 Acute urin estefany tract infection 426645668 N39.0 [id number] Marlene Greer [facility] [address] [place] [address] 05/06/2021 11:58:15 05/11/2021 03:52:30 Abnormal urine 665935613 R82.90 [id number] Jono Pagan MD [address] [place] [address] 09/27/2021 12:37:54 10/27/2021 09:29:43 Neurogenic urinary bladder 637224765 N31.9 Spinal cord injury 27782 004 G95.89 Spasm of u rinary bladder 384401533 N32.89 Recurrent urinary tract infection 147990908 N39.0 [id number] Jono Pagan MD [facility] [address] [place] [address] 09/28/2022 10:53:21 10/01/2022 11:26:52 Neurogenic urinary bladder 490861929 N31.9 Spinal cord injury 39157 004 G95.89 Spasm of u rinary bladder 052622282 N32.89 Recurrent urinary tract infection 819641149 N39.0 [id number] Jono Pagan MD [address] [place] [address] 04/28/2023 11:30:11 05/04/2023 11:13:13 Neurogenic urinary bladder 996020852 N31.9 Spinal cord injury 65400 004 G95.89 Spasm of u rinary bladder 897610967 N32.89 Recurrent urinary tract infection 668447692 N39.0 [id number] Jono Pagan MD [facility] [address] [place] [address] 11/01/2023 10:52:02 11/02/2023 14:01:41 Neurogenic urinary bladder 452037366 N31.9 Spinal cord injury 64184 004 G95.89 Spasm of u rinary bladder 015121457 N32.89 Recurrent urinary tract infection 097556141 N39.0 Health Concerns Section Related Observation LastModified by Organization Detai ls LastModified Time None Recorded Concern Status LastModified by Organization Details LastModified Time None Recorded Advance Directives Directive None Recorded Payers Encounter Date Sequence Insurance Name Policy Number Policy Quinones Covered Member ID Quinones Member ID Guarantor Name 05/06/2021 [facility] [id number] Levar Rios [facility] Khanh Rene 09/27/2021 1 [facility] (MEDICARE REPLACEMENT/AD VANTAGE - PPO) [id number] Khanh Rene [id number] Khanh Rene 09/28/2022 [facility] [id number] Levar Rios [facility] Khanh Rene 04/28/2023 1 [facility] (MEDICARE REPLACEMENT/AD VANTAGE - PPO) [id number] Khanh Rene [id number] Khanh Rene 11/01/2023 [facility] [id number] [facility] Khanh Rene Notes Date Note Type Note Provider Name and Address Organization Details Recorded Time 05/06/2021 text/html HPI Notes: Pt he re for UA/UC due to low back ache, cloudy urine with sediment present X 1.5 weeks. pt given cipro 500mg BID pending culture. CHRIS, CLIFF hwang [facility] 07/20/2021 14:23:40 09/27/2021 text/html HPI Notes: [...] last 7 months. Jono Pagan MD [address], [place], [address], [facility] 09/27/2021 13:13:14 09/28/2022 text/html HPI Notes: [...] reviewed with no upper tract abnormality. Jono Pgaan MD [address], [address], [facility] 09/28/2022 13:48:55 04/28/2023 text/html HPI Notes: [...] since the summer. Jono Pagan MD [address], [place], [address], [facility] 04/28/2023 12:27:52 11/01/2023 text/html HPI Notes: [...] condom catheter when traveling. Jono Pagan MD [address], [place], [address], [facility] 11/01/2023 23:05:58
--- OUTSIDE RECORDS SUMMARY | 2024-03-26 07:58 | XMS_ITS | Clinical Summary ---
Author Organization [facility] Address [place], [place] [address] Care Team Providers Care Dress Cutter Name Role Phone Goyoluis aAna Unavailable Alex Mata MD Primary Care Provider + Jak Keys ELIGIBILITY SUPERVISOR Unavailable Allergies Active Allergy Reactions Criticality Noted Date Comments Blood-Group Specific Substance Other - Describe In Comment Field 04/19/2021 Patient has Sims a (Fya) antibody. Blood products may be delayed. Draw patient 24 hours prior to transfusion. For [employer] testing, draw one red top and two [...] Overview: 09/20/23 bilateral lower extremity arterial ultrasound ([facility]) S/P flap graft 03/06/2020 Neurogenic orthostatic [...] Description 03/12/2024 2:00 PM CDT Office Visit [facility] [address] [place] [address] Maria Guadalupe Smith MD CV Vascular Est (4 week follow up; PAD with non-healing RLE wounds. U/S scheduled prior) 03/12/2024 12:24 PM CDT - 03/12/2024 11:59 PM CDT Hospital Encounter [facility] [address] [address] Maria Guadalupe Smith MD Leistner, Joseph S[facility]. [facility] PAD (peripheral artery disease) (HC) 03/12/2024 Travel 02/13/2024 Refill [facility] [address] [place] [address] Maria Guadalupe Smith MD Refill Request 02/02/2024 1:04 PM CDT Anesthesia Event [facility] [address] [place] [phone] Enrico Perez MD Beulke, Steven William, MARLEN 02/02/2024 10:01 AM CDT - 02/03/2024 1:05 PM CDT Hospital Encounter [facility] [address] [place] [address] Maria Guadalupe Smith MD Taylor, Phillip Norman, MD Erickson, Andrew Richard, MARLEN Discharge Disposition: Home Self Care 02/01/2024 8:53 AM CDT - 02/01/2024 11:59 PM CDT Hospital Encounter [facility] [address] [place] [address] PAD (peripheral artery disease) (HC) 02/01/2024 8:15 AM CDT Office Visit [facility] [address] [place] [address] Raquel Multani MD [facility] (1989 injury//Mixed conductive and sensorineural hearing loss of left ear with restricted hearing of right ear//Bilateral hearing loss, unspecified hearing loss type//Sensorineural hearing loss (SNHL) of right ear with restricted hearing of left ear) 02/01/2024 Travel 01/19/2024 Telephone [facility] [address] [place] [address] Maria Guadalupe Smith MD Surgery Scheduled 01/17/2024 8:00 AM CDT Office Visit [facility] [address] [place] [address] Maria Guadalupe Smith MD Consult (blood flow in the right leg, wounds wont heal, stints in hip 3 yrs ago. blood flow is about 1/2 now) 01/17/2024 Travel 01/02/2024 Travel from Last 3 Months Immunizations Name [...] Contact Info) Description 05/03/2024 Cardiac Device Check [facility] [phone] Health Maintenance Due Date Last Done Comments [...] 2019 COVID-19 vaccine series (3 - season) 2024 09/14/2020, 08/20/2020 Influenza for age 65+ 03/24/2024 03/25/2011, 006 Tdap Completed 12/26/2008, 09/01/2006 Medical Devices Implanted Type Area Earth Observations Chief Scientist Device Identifier Shelf Expiration Date Model / Serial / Lot Standard Pacemaker-12/21 Implanted:11/23 by Judson Jenkins MD (Quantity not on file) Standard Pacemaker Med[employer] [id number] / [id number] / Procedures Procedure Name Priority Date/Time Associated [...] LIPID PANEL Early AM 07/14/2008 3:00 AM MRI TECHNOLOGIST from Last 3 Months or Most Recently Relevant to Health Maintenance Results * US ARTERIAL LOWER EXTREMITY W NHUNG BILATERAL (03/12/2024 1:15 PM CDT) Anatomical Region Laterality Modality LEGS Ultrasound 03/12/2024 12:3 4 PM CDT Narrative 03/12/2024 5:38 PM CDT VASCULAR ULTRASOUND REPORT MICHEAL Gordon JUSTINE Accession#: ?? [id number] : ?1955 ??Study Date: ?? 03/12/2024 12:34:00 PM Age: ?69 years ?? Tech: ? JSL Gender: M ?Referring MD: MARIA GUADALUPE SMITH Site: [facility] Vascular [place] Study performed: ?Lower extremity (bilateral), resting NHUNG, [...] Velocity cm/s Phasicity ?? +--------+ + + EMERGENCY DEPARTMENT DIRECTOR PRX ? 125 ? multiphasic +--------+ + + EMERGENCY DEPARTMENT DIRECTOR DST ? 148 ? multiphasic +--------+ + + PFA ? 124 ? multiphasic +--------+ + + SFA PRX ? 126 ? multiphasic +--------+ + + SFA MID ? 147 ? multiphasic +--------+ + + SFA DST ? 157 ? multiphasic +--------+ + + RUSLAN PRX ? 60 ? multiphasic +--------+ + + RUSLAN DST ? 80 ? monophasic +--------+ + + STONE PLANER DST ? 58 ? monophasic +--------+ + + DPA ? 49 ? monophasic +--------+ + + +--------+ + + LEFT ? Velocity cm/s Phasicity ?? +--------+ + + EMERGENCY DEPARTMENT DIRECTOR PRX ? 94 ? multiphasic +--------+ + + EMERGENCY DEPARTMENT DIRECTOR DST ? 171 ? multiphasic +--------+ + + PFA ? 110 ? multiphasic +--------+ + + SFA PRX ? 116 ? multiphasic +--------+ + + SFA MID ? 81 ? multiphasic +--------+ + + SFA DST ? 55 ? multiphasic +--------+ + + RUSLAN PRX ? 64 ? multiphasic +--------+ + + RUSLAN DST ? 55 ? multiphasic +--------+ + + STONE PLANER DST ? 37 ? multiphasic +--------+ + [...] ? Index +-----+ +--------+ +-----+ 0.80 ?102 ?STONE PLANER ?90 ? 0.71 +-----+ +--------+ +-----+ 0.94 ?120 ?DPA ?110 ? 0.87 +-----+ +--------+ +-----+ 0.63 ? 80 ? Digit 1 ?87 ? 0.69 +-----+ +--------+ +-----+ Paul Bishop MD. Electronically signed on 03/12/2024 5:38:31 PM This study was performed and interpreted by a service accredited by the Intersocietal Accreditation Commission (IAC/Vascular), [email or web address] Report generated by [employer]. ??Final ?? Procedure Note Paul Bishop MD - 03/12/2024 VASCULAR ULTRASOUND REPORT MICHEAL RENE : 1955 Study Date: 03/12/2024 12:34:00 PM Age: 69 years Tech: ALEXIS Gender: M Referring MD: MARIA GUADALUPE SMITH Site: [facility] V[facility] Center Study performed: Lower extremity (bilateral), [...] RIGHT Velocity cm/s Phasicity +--------+ + + EMERGENCY DEPARTMENT DIRECTOR PRX 125 multiphasic +--------+ + + EMERGENCY DEPARTMENT DIRECTOR DST 148 multiphasic +--------+ + + PFA 124 multiphasic +--------+ + + SFA PRX 126 multiphasic +--------+ + + SFA MID 147 multiphasic +--------+ + + SFA DST 157 multiphasic +--------+ + + RUSLAN PRX 60 multiphasic +--------+ + + RUSLAN DST 80 monophasic +--------+ + + STONE PLANER DST 58 monophasic +--------+ + + DPA 49 monophasic +--------+ + + +--------+ + + LEFT Velocity cm/s Phasicity +--------+ + + EMERGENCY DEPARTMENT DIRECTOR PRX 94 multiphasic +--------+ + + EMERGENCY DEPARTMENT DIRECTOR DST 171 multiphasic +--------+ + + PFA 110 multiphasic +--------+ + + SFA PRX 116 multiphasic +--------+ + + SFA MID 81 multiphasic +--------+ + + SFA DST 55 multiphasic +--------+ + + RUSLAN PRX 64 multiphasic +--------+ + + RUSLAN DST 55 multiphasic +--------+ + + STONE PLANER DST 37 multiphasic +--------+ + + DPA 75 multiphasic +--------+ + + Criteria: Stenosis V. Ratio Mild <50% <2.0 Moderate 50-74% > or = 2.0 Severe 75-99% > or = 4.0 Occluded 100% no detectable flow Pressures +-----+ +--------+ +-----+ RIGHT (mmHg) LEFT (mmHg) +-----+ +--------+ +-----+ Index 124 Brachial 127 Index +-----+ +--------+ +-----+ 0.80 102 STONE PLANER 90 0.71 +-----+ +--------+ +-----+ 0.94 120 DPA 110 0.87 +-----+ +--------+ +-----+ 0.63 80 Digit 1 87 0.69 +-----+ +--------+ +-----+ Paul Bishop MD. Electronically signed on 03/12/2024 5:38:31 PM This study was performed and interpreted by a service accredited by theIntersocietal Accreditation Commission (IAC/Vascular),[email or web address] Report generated by [employer]. Final Maria Guadalupe Smith MD US * (ABNORMAL) CBC (02/03/2024 10:42 AM CDT) Only the most recent of2 resultswithin the time period is included. WHITE BLOOD COUNT 5.9 4.5 - 11.0 thou/cu mm 02/03/2024 11:20 AM [facility] RED BLOOD COUNT 3.57(L) 4.30 - 5.90 mil/cu mm 02/03/2024 11:20 AM T [facility] HEMOGLOBIN 9.5(L) 13.5 - 17.5 g/dL 02/03/2024 11:20 AM T [facility] HEMATOCRIT 30.9(L) 37.0 - 53.0 % 02/03/2024 11:20 AM [facility] MCV 87 80 - 100 fL 02/03/2024 11:20 AM [facility] MCH 26.6 26.0 - 34.0 pg 02/03/2024 11:20 AM T [facility] MCHC 30.7(L) 32.0 - 36.0 [...] 10:42 AM CDT 02/03/2024 10:[address] [facility] [place] [facility] - 02/03/2024 11:20 AM CDT Call if Hemoglobin less than 10. Dary Carlos MD HEMATOLOGY [facility] [address] [place] [address], * (ABNORMAL) Basic Metabolic Panel (02/03/2024 10:42 AM CDT) Only the most recent of2 resultswithin the time period is included. SODIUM 139 136 - 145 mmol/L 02/03/2024 11:35 AM CDT [facility] POTASSIUM 4.7 3.5 - 5.1 mmol/L 02/03/2024 11:35 AM T [facility] CHLORIDE 107 98 - 107 mmol/L 02/03/2024 11:35 AM T [facility] CO2,TOTAL 26 22 - 29 mmol/L 02/03/2024 11:35 AM T [facility] ANION GAP 6 5 - 18 02/03/2024 11:35 AM T [facility] GLUCOSE 139(H) 70 - 99 mg/dL 02/03/2024 11:35 AM T [facility] CALCIUM 8.3(L) 8.8 - 10.2 mg/dL 02/03/2024 11:35 AM [facility] BUN 14 8 - 23 mg/dL 02/03/2024 11:35 AM [facility] CREATININE 0.42(L) 0.70 - 1.20 mg/dL 02/03/2024 11:35 AM [facility] BUN/CREAT RATIO 33(H) 10 - 20 11:35 AM T [facility] eGFR >90 >90 mL/min/1.7 3m2 02/03/2024 11:35 AM T [facility] Comment:As of 2021, eG FR [...] 10:56 AM CDT Dary Carlos MD CHEMISTRY [facility] [address] [address], * SCAN-CARDIAC STRIP (02/03/2024 10:26 AM CDT) [...] Securement/dressing: Biopatch applied, dressing applied. ??Comment: Vessel Instrument Repair Supervisor Additional supplies used to locate vessel: no Needle Catheter size: 20 G. ??Comment:. Catheter length: 4.5 cm. ??Comment: Events: no complications. Enrico Perez MD ANESTHESIA PX N OTE ORDERABLES * (ABNORMAL) ACTIVATED CLOTTING TIME [id number] ACT (02/02/2024 1:59 PM CDT) ACTIVATED CLOTTING TIME, POCT 308(H) 74 - 125 sec 02/02/2024 3:45 PM CDT [facility] Blood BLOOD SPECIMEN / Unknown 02/02/2024 1:59 PM CDT 02/02/2024 3:45 PM CDT Maria Guadalupe Smith MD HEMATOLOGY Performing Organization Address [facility] Co de Phone Number [facility] [address] [place] [address], * HCHG TUBE PR1, HCHG STYLET PR1, [...] Guadalupe Smith MD LABORATORY Performing Organization Address [facility] Co de Phone Number [facility] [address] [place] [address], * RBC W/O TYPE & SCREEN (02/02/2024 10:27 AM CDT) QUANTITY 4 02/02/2024 10:27 AM CDT [facility] BLOOD BANK Blood BLOOD SPECIMEN / Unknown 02/02/2024 10:22 AM CDT Jono Malone NP BLOOD BANK Performing Organization Address [facility] Co de Phone Number [facility] [address] [place] [address], * DONOR ANTIGEN (02/02/2024 10:22 AM CDT) Pathologist [facility] 4 [facility] BLOOD BANK DONOR ANTIGEN TYPE Donor Antigen Type [facility] BLOOD BANK Jono Malone ELIGIBILITY SUPERVISOR BLOOD BANK Performing Organization Address [facility] Co de Phone Number [facility] [address] [place] [phone], * RED BLOOD CELLS EA UNIT (02/02/2024 10:22 AM CDT) Only the most recent of4 resultswithin the time period is included. [facility] [employer] Compatible Compatible [facility] PRODUCT BLOOD TYPE A Rh Positive [facility] [email or web address] LAB BLOOD BANK PRODUCT ID NUMBER [id number] [facility] [employer] BLOOD BANK PRODUCT STATUS /Relea sed [facility] [employer] BLOOD BANK PRODUCT DESCRIPTION RBC -1 LR [facility] [employer] BLOOD BANK PRODUCT CODE [id number] [facility] [employer] BLOOD BANK Jono Malone NP BLOOD BANK Performing Organization Address [facility]/ZIP Co de Phone Number [facility] BLOOD BANK [address] [place] [phone], * SCAN-CARDIAC STRIP (02/02/2024 12:00 AM CDT) Narrative 02/02/2024 12:00 AM CDT Ordered by an unspecified provider. Other Clinical Staff OTHER * (ABNORMAL) TYPE & SCREEN (02/01/2024 9:14 AM CDT) [facility] A Rh Positive 02/01/2024 1:[address] [facility] BLOOD BANK Comment:Comment: Performed b y Central Laboratory - [facility] Laboratory, [address] [place] [address], [place] [address] ANTIBODY SCREEN Positive(A) Negative 02/01/2024 1:[address] [facility] BLOOD BANK Comment:Comment: Performed b y Central Laboratory - [facility], [address] [place] [address], [place] [address] SPECIMEN EXPIRATION DATE/TIME 02/04/24 23:59 02/01/2024 1:[address] [facility] BLOOD BANK Blood BLOOD SPECIMEN / Unknown Venipuncture / Unknown 02/01/2024 9:14 AM CDT 02/01/2024 9:21 AM CDT Maria Guadalupe Smtih MD BLOOD BANK Performing Organization Address City/[facility] de Phone Number [facility] BLOOD BANK [address] [place] [address] * (ABNORMAL) ANTIBODY IDENTIFICATION LAB USE ONLY (02/01/2024 9:14 AM CDT) [facility] ANTIBODY IDENTIFICATION Anti-Duff y a(A) 02/01/2024 2:[address] [facility] BLOOD BANK Comment:Comment: Performed b y [facility], [address] [place] [address], [place] [address] Blood BLOOD SPECIMEN / Unknown Venipuncture / Unknown 02/01/2024 9:14 AM CDT 02/01/2024 9:[address] [facility] BLOOD BANK - 02/01/2024 2:49 PM [...] laboratory Maria Guadalupe Smith MD BLOOD BANK [facility] BLOOD BANK [address] [place] [address] * ANTIBODY IDENTIFICATION EACH PANEL (02/01/2024 9:14 AM CDT) QUANTITY [address] [facility] BLOOD BANK PANEL JOSÉ MIGUEL ID Panel Antibody ID [facility] BLOOD BANK Maria Guadalupe Smith MD BLOOD BANK [facility] BLOOD BANK [address] [place] [address] * SCAN CORRESP-LABORATORY RESULTS (02/01/2024 9:09 AM CDT) Narrative 02/01/2024 9:09 AM CDT Ordered by an unspecified provider. Other Clinical Staff OTHER * Lipid Panel - In AM (07/14/2008 3:00 AM MRI TECHNOLOGIST) CHOLESTEROL,TOTAL 141 110 - 199 mg/dL [facility] TRIGLYCERIDES 41 40 - 149 mg/dL [facility] HDL CHOLESTEROL 45 >40 mg/dL [facility] CHOL/HDL RATIO 3.13 <4.51 [facility] LDL CHOLESTEROL 88 <131 mg/dL [facility] PATIENT STATUS Fasting [facility] Blood specimen (specimen) BLOOD SPECIMEN / Unknown 07/14/2008 3:00 AM MRI TECHNOLOGIST 07/14/2008 1:52 AM MRI TECHNOLOGIST Phyllis Sánchez MD CHEMISTRY [facility] INTERNAL ZIP [address] [place] [address] from Last 3 Months or Most Recently [...] 12 months since positive culture): resides in acute/custodial care, receiving hemodialysis, has chronic open wounds/skin [...] 6:44 AM 03/14/2016 5:37 PM Care Teams Dress Cutter Relationship Specialty Start Date End Date Alex Mata MD [address] [place] [id number] PCP - General Family Practice 02/04/20 Ana Mayers [address] [place] [address] Nurse Practitioner 03/02/11 Jak Keys NP [facility] [address] [place] [address] Nurse Practitioner Nurse Practitioner - Adult 10/30/23
== END 2024-03-26 07:55 | disposition home or self-care (01) ==
LOC: WOUND 07:54
PROVIDERS: PCP Family Medicine; Visit Provider Nurse Practitioner Family
DX: M86.671 Other chronic osteomyelitis, right ankle and foot (principal); L89.614 Pressure ulcer of right heel, stage 4; L89.894 Pressure ulcer of other site, stage 4; L89.893 Pressure ulcer of other site, stage 3; L89.314 Pressure ulcer of right buttock, stage 4; L89.514 Pressure ulcer of right ankle, stage 4; Z99.3 Dependence on wheelchair
CPT/HCPCS: 11043; 97597; G0277

== ENCOUNTER 2024-04-02 08:07 | Outpatient (CLI) | payer OTHER, SELFPAY ==
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
== END 2024-04-02 08:08 | disposition home or self-care (01) ==
LOC: WOUND 08:07
PROVIDERS: PCP Family Medicine; Visit Provider Nurse Practitioner Family
DX: M86.671 Other chronic osteomyelitis, right ankle and foot (principal); L89.614 Pressure ulcer of right heel, stage 4; L89.894 Pressure ulcer of other site, stage 4; L89.314 Pressure ulcer of right buttock, stage 4; L89.893 Pressure ulcer of other site, stage 3; G82.20 Paraplegia, unspecified; S14.155S Other incomplete lesion at C5 level of cervical spinal cord, sequela; Z99.3 Dependence on wheelchair
CPT/HCPCS: 11042; 97597; G0277

== ENCOUNTER 2024-04-08 08:02 | Outpatient (CLI) | payer OTHER, SELFPAY ==
--- OUTSIDE RECORDS SUMMARY | 2024-04-08 08:05 | XMS_ITS | Data Portability ---
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 Lab culture, urine 2020 021 [facility], [address], [place], [address], 07:39:35 urinalysis, dipstick 2020 021 marie Not available 10/20/202 1 11:34:22 Referral None recorded. Procedures None recorded. Surgeries None recorded. Imaging US, kidney 2021 022 [facility], [address] [place], [address], 2 09:00:29 Medication Orders oxybutynin chloride ER 15 mg tablet,exte nded release 24 hr 2021 022 [facility][id number], [address], [place], [place], [id number], 2 12:53:22 nitrofurant oin macrocrysta l 50 mg capsule [address] [facility]04108, [address], [place], [place], [id number], 4 08:10:56 nitrofurant oin macrocrysta l 50 mg capsule [address] [facility]35111, [address], [place], [place], [id number], 4 08:10:56 oxybutynin chloride ER 15 mg tablet,exte nded release 24 hr 2022 023 [facility] #60769, [address] , [place], [place], [id number], 3 12:15:06 methenamine hippurate 1 gram tablet [address] [facility]46845, [address] , [place], [place], [id number], 4 23:05:30 methenamine hippurate 1 gram tablet 2023 024 [facility] #04630, [address] , [place], [place], [id number], 4 23:05:37 oxybutynin chloride ER 15 mg tablet,exte nded release 24 hr 2023 024 [facility]95, [address] , [place], [id number], 4 23:04:50 Patient TargetsNo targets recorded. Patient InstructionsNo instructions recorded. Reason for Referral None Reported. Results Created Date Observation Date Name Description Value Unit Range Abnormal Flag Note LastModifiedBy Organization Detail LastModifiedTime 05/12/2021 urina lysis , dipst ick Color-Status Yellow Not Available [facility] [address], [place], [address], 05/12/2021 11:33:40 05/12/2021 urina lysis , dipst ick Clarity-Stat us Cloudy Not Available [facility] [address], [place], [address], 05/12/2021 11:33:40 05/12/2021 urina lysis , dipst ick pH-Status 7.5 Not Available [facility] [address], [place], [address], 05/12/2021 11:33:40 05/12/2021 urina lysis , dipst ick Nitrates-Sta tus positi ve Not Available [facility] [address], [place], [address], 05/12/2021 11:33:40 05/12/2021 urina lysis , dipst ick Blood-Status Small Not Available [facility] [address], [place], [address], 05/12/2021 11:33:40 05/12/2021 urina lysis , dipst ick Leuko-Status Large Not Available [facility] [address], [place], [address], 05/12/2021 11:33:40 05/06/20 21 05/06/2021 URINE CULTU [...] y Type Sensi tivit y Coleen sis Proctor te 1 Proctor te 2 ----- ----- ----- ----- ----- [...] s Desk Refer ence or from the [facility] actur er. S= Susce ptibl e;I= Inter media te;R= Resis tant; ESBL= Resis tance due to confi rmed ESBL Not Available [facility] [address], [place], [address], 05/08/2021 07:39:35 10/07/19 22 10/05/2021 US, kidne y No observ ation record ed. [address] Radiology Department [address] [place], [address], 09/28/2022 13:47:50 Result Notes None recorded. Procedures Surgical History Date Name Laterality Status Provider Name and Address Organization Details Recorded Time 4 COMPLEX VISIT completed Jono Pagan MD [address], [place], [address], [place] [facility] 11/01/2023 08:09:54 excision of pressure injury completed Jono Pagan MD [address], [place], [address], [place] [facility] 09/28/2022 11:00:08 maintenance procedure for cardiac pacemaker system completed Veronika hwang [facility] 11/01/2023 11:05:10 Imaging Results Imaging Date Name Status LastModified by Organiz ation Details LastModified Time 10/05/2021 US, kidney completed [address] Radiology Department [address] [place], [address], 09/28/2022 13:47:50 Procedure Notes None recorded. Medical Equipment None Reported. Allergies Allergen ID Allergen Name Allergen Category Reaction Reaction Severity Criticality Documentation Date Start Date Code Code System Note Provider Name and Address Organization Details Recorded Time 682067 Medicinal product containin g cephalosp pao and acting as antibacte rial agent (product) medicatio n Not available Not available Not available 09/27/2021 00072 9009 SNOMED Nasreenerasmo hwang [facility] 2 12:43:20 358112 shellfish derived food,medi cation Not available Not available Not available 11/01/2023 Veronika hwang [place] [facility] 4 11:03:08 Medications Name Sig Start [...] Updated DateTime 09/28/2022 182.88 cm 19.4 kg/m2 13425.71 g Veronika Begum [facility] 09/28/2022 10:55:01 Date Recorded Body height Body mass index (BMI) Body weight Provider Name and Address Organization Details Last Updated DateTime 04/28/2023 182.88 cm 19.4 kg/m2 50574.71 g Mindy Malone [facility] 04/28/2023 11:39:29 Date Recorded Body height Body mass index (BMI) Body weight Provider Name and Address Organization Details Last Updated DateTime 10/12/2023 182.88 cm 19.4 kg/m2 95477.71 g Veronika Begum [facility] 10/12/2023 12:26:19 Date Recorded Body height Body mass index (BMI) Body weight Provider Name and Address Organization Details Last Updated DateTime 11/01/2023 182.88 cm 18.7 kg/m2 69555.75 g Veronika Begum [facility] 11/01/2023 11:02:57 Date Recorded Body height Body mass index (BMI) Body weight Provider Name and Address Organization Details Last Updated DateTime 05/06/2021 182.88 cm 19.4 kg/m2 71802.71 g Chelsea Medrano [facility] 05/06/2021 12:47:45 Date Recorded Body height Body mass index (BMI) Body weight Provider Name and Address Organization Details Last Updated DateTime 09/27/2021 182.88 cm 19.4 kg/m2 69402.71 g Nasreen Salas [facility] 09/27/2021 12:43:07 Social History Question Answer Notes LastModified by Organizat ion Details LastModified Time Tobacco Smoking Status [facility] 14:55:09 What Is Your [...] Recorded Time IPV 11/19/2004 completed Mindy hwang [facility] 04/28/2023 11:39:35 COVID-19, mRNA, LNP-S, PF, 30 mcg/0.3 mL dose 08/20/2020 completed Mindy hwang [facility] 04/28/2023 11:39:35 COVID-19, mRNA, LNP-S, PF, 30 mcg/0.3 mL dose 09/14/2020 completed Mindy hwang [facility] 04/28/2023 11:39:35 Pneumococcal conjugate PCV20, polysaccharide ZTP244 conjugate, adjuvant, PF 12/01/2022 completed Minyd hwang [facility] 04/28/2023 11:39:35 influenza, unspecified formulation 05/24/2006 maki hwang [facility] 04/28/2023 11:39:35 Tdap 09/01/2006 completed Mindy hwang [facility] 04/28/2023 11:39:35 Tdap 12/26/2008 completed Mindy hwang [facility] 04/28/2023 11:39:35 zoster live 01/29/2015 completed Mindy hwang [facility] 04/28/2023 11:39:35 Influenza, split virus, trivalent, PF 03/25/2011 completed Mindy hwang [facility] 04/28/2023 11:39:35 Influenza, split virus, trivalent, PF 05/24/2012 completed Mindy hawng, [facility] 04/28/2023 11:39:35 Td (adult), 2 Lf tetanus toxoid, preservative free, adsorbed 03/21/1997 completed Mindy hwang, [facility] 04/28/2023 11:39:35 Hep B, adult 09/01/2006 completed Mindy hwang, [facility] 04/28/2023 11:39:35 Hep B, adult 11/19/2004 completed Mindy hwang, [facility] 04/28/2023 11:39:35 Hep B, adult 03/30/2007 completed Mindy hwang, [facility] 04/28/2023 11:39:35 Hep A, adult 09/30/2002 completed Mindy hwang, [facility] 04/28/2023 11:39:35 Hep A, adult 11/19/2004 completed Mindy hwang, [facility] 04/28/2023 11:39:35 Hep A, adult 05/01/2003 completed Mindy hwnag, [facility] 04/28/2023 11:39:35 typhoid, ViCPs 09/01/2006 completed Mindy hwang, [facility] 04/28/2023 11:39:35 typhoid, ViCPs 09/30/2002 completed Mindy hwang, [facility] 04/28/2023 11:39:35 Past Encounters Encounter ID Performer Location Encounter Start Date Encounter Closed Date Diagnosis/Indication Diagnosis SNOMED-CT Code Diagnosis ICD10 Code [id number] MD KIKE [facility] [address] [place] [address] 02/18/2021 14:23:42 02/19/2021 12:13:21 Neurogenic urinary bladder 362974596 N31.9 Spinal cord injury 31728 004 G95.89 Spasm of u rinary bladder 296931592 N32.89 Recurrent urinary tract infection 510866543 N39.0 Acute urin estefany tract infection 189785981 N39.0 [id number] Marlene Greer [facility] [address] [place] [address] 05/06/2021 11:58:15 05/11/2021 03:52:30 Abnormal urine 305487997 R82.90 [id number] Jono Pagan MD [address] [place] [address] 09/27/2021 12:37:54 10/27/2021 09:29:43 Neurogenic urinary bladder 392521098 N31.9 Spinal cord injury 19945 004 G95.89 Spasm of u rinary bladder 504195429 N32.89 Recurrent urinary tract infection 374332271 N39.0 [id number] Jono Pagan MD [facility] [address] [place] [address] 09/28/2022 10:53:21 10/01/2022 11:26:52 Neurogenic urinary bladder 306214196 N31.9 Spinal cord injury 69443 004 G95.89 Spasm of u rinary bladder 200601213 N32.89 Recurrent urinary tract infection 503714640 N39.0 [id number] Jono Pagan MD [address] [place] [address] 04/28/2023 11:30:11 05/04/2023 11:13:13 Neurogenic urinary bladder 735354515 N31.9 Spinal cord injury 97597 004 G95.89 Spasm of u rinary bladder 632683457 N32.89 Recurrent urinary tract infection 201364748 N39.0 [id number] Jono Pagan MD [facility] [address] [place] [address] 11/01/2023 10:52:02 11/02/2023 14:01:41 Neurogenic urinary bladder 249560483 N31.9 Spinal cord injury 70982 004 G95.89 Spasm of u rinary bladder 061845167 N32.89 Recurrent urinary tract infection 648749206 N39.0 Health Concerns Section Related Observation LastModified by Organization Detai ls LastModified Time None Recorded Concern Status LastModified by Organization Details LastModified Time None Recorded Advance Directives Directive None Recorded Payers Encounter Date Sequence Insurance Name Policy Number Policy Quinones Covered Member ID Quinones Member ID Guarantor Name 05/06/2021 [facility] [id number] Levar Rios [facility] [place] 09/27/2021 1 [facility] (MEDICARE REPLACEMENT/AD VANTAGE - PPO) [id number] Khanh Rene [id number] Khanh Rene 09/28/2022 [facility] [id number] Levar Rios [facility] [employer] Rene 04/28/2023 1 [facility] (MEDICARE REPLACEMENT/AD VANTAGE - PPO) [id number] Khanh Rene [id number] Khanh Rene 11/01/2023 [facility] [id number] [facility] Khanh Rene Notes Date Note Type Note Provider Name and Address Organization Details Recorded Time 05/06/2021 text/html HPI Notes: Pt he re for UA/UC due to low back ache, cloudy urine with sediment present X 1.5 weeks. pt given cipro 500mg BID pending culture. CHRIS, CLIFF hwang [facility] 07/20/2021 14:23:40 09/27/2021 text/html [...] last 7 months. Jono Pagan MD [address], [place], [address], [facility] 09/27/2021 13:13:14 09/28/2022 text/html [...] upper tract abnormality. Jono Pagan MD [address], [address], [facility] 09/28/2022 13:48:55 04/28/2023 text/html [...] since the summer. Jono Pagan MD [address], [place], [address], [facility] 04/28/2023 12:27:52 11/01/2023 text/html [...] condom catheter when traveling. Jono Pagan MD [address], [place], [address], [facility] 11/01/2023 23:05:58
--- OUTSIDE RECORDS SUMMARY | 2024-04-08 08:05 | XMS_ITS | Clinical Summary ---
Author Organization [facility] [facility] Address [place], [place] [address] Care Team Providers Care International Marketing Executive Name Role Phone TalibAna Unavailable Alex Mata MD Primary Care Provider + Jak Keys CERTIFIED WELLNESS PROGRAM COORDINATOR Unavailable [phone] Allergies Active Allergy Reactions Criticality Noted Date Comments Blood-Group Specific Substance Other - Describe In Comment Field 04/19/2021 Patient has Sims a (Fya) antibody. Blood products may be delayed. Draw patient 24 hours prior to transfusion. For [employer] testing, draw one red top and two [...] (11/17/2023): 09/20/23 bilateral lower extremity arterial ultrasound ([facility]) S/P flap graft 03/06/2020 Neurogenic orthostatic hypotension [...] Description 03/12/2024 2:00 PM CDT [place] [facility] [address] [place] [address] Maria Guadalupe Smith MD CV Vascular Est (4 week follow up; PAD with non-healing RLE wounds. U/S scheduled prior) 03/12/2024 12:24 PM CDT - 03/12/2024 11:59 PM CDT Hospital Encounter [facility] [address] [place] [address] Maria Guadalupe Smith MD Leistner, Joseph S, R.T. (ARRT) PAD (peripheral artery disease) (HC) 03/12/2024 Travel 02/13/2024 Refill [facility] [address] [place] [address] Maria Guadalupe Smith MD Refill Request 02/02/2024 1:04 PM CDT Anesthesia Event [facility] [address] [place] [address] Enrico Perez MD Beulke, Steven William, CRNA 02/02/2024 10:01 AM CDT - 02/03/2024 1:05 PM CDT Hospital Encounter [facility] [address] [place] [address] Maria Guadalupe Smith MD Taylor, Phillip Norman, MD Erickson, Andrew Richard, CRNA Discharge Disposition: Home Self Care 02/01/2024 8:53 AM CDT - 02/01/2024 11:59 PM CDT Hospital Encounter [facility] [address] [place] [address] PAD (peripheral artery disease) (HC) 02/01/2024 8:15 AM CDT Office Visit [facility] [address] [place] [address] Raquel Multani MD [facility] (1989 injury//Mixed conductive and sensorineural hearing loss of left ear with restricted hearing of right ear//Bilateral hearing loss, unspecified hearing loss type//Sensorineural hearing loss (SNHL) of right ear with restricted hearing of left ear) 02/01/2024 Travel 01/19/2024 Telephone [facility] [address] [place] [address] Maria Guadalupe Smith MD Surgery Scheduled 01/17/2024 8:00 AM CDT Office Visit [facility] [address] [place] [address] Maria Guadalupe Smith MD Consult (blood flow in the right leg, wounds wont heal, stints in hip 3 yrs ago. blood flow is about 1/2 now) 01/17/2024 Travel from Last 3 Months Immunizations Name [...] Contact Info) Description 05/03/2024 Cardiac Device Check [employer] [facility] [phone] Health Maintenance Due Date Last Done Comments [...] 12/26/2008, 09/01/2006 Medical Devices Implanted Type Area Bending Machine Operator Device Identifier Shelf Expiration Date Model / Serial / Lot Standard Pacemaker-12/21 Implanted:11/23 by Judson Jenkins MD (Quantity not on file) Standard Pacemaker [employer]onic [id number] / [id number] / Procedures Procedure Name Priority Date/Time Associated [...] LIPID PANEL Early AM 07/14/2008 3:00 AM MEDICAL SECRETARY RECEPTIONIST from Last 3 Months or Most Recently Relevant to Health Maintenance Results * US ARTERIAL LOWER EXTREMITY W NHUNG BILATERAL (03/12/2024 1:15 PM CDT) Anatomical Region Laterality Modality LEGS Ultrasound 03/12/2024 12:3 4 PM CDT Narrative 03/12/2024 5:38 PM CDT VASCULAR ULTRASOUND REPORT MICHEAL RENE Accession#: ?? [id number] : ?1955 ??Study Date: ?? 03/12/2024 12:34:00 PM Age: ?69 years ?? Tech: ? JSL Gender: M ?Referring MD: MARIA GUADALUPE SMITH Site: [facility] Study performed: ?Lower extremity (bilateral), resting NHUNG, [...] Velocity cm/s Phasicity ?? +--------+ + + EDUCATOR SENIOR CLINICAL PRX ? 125 ? multiphasic +--------+ + + EDUCATOR SENIOR CLINICAL DST ? 148 ? multiphasic +--------+ + + PFA ? 124 ? multiphasic +--------+ + + SFA PRX ? 126 ? multiphasic +--------+ + + SFA MID ? 147 ? multiphasic +--------+ + + SFA DST ? 157 ? multiphasic +--------+ + + RUSLAN PRX ? 60 ? multiphasic +--------+ + + RUSLAN DST ? 80 ? monophasic +--------+ + + OCCUPATIONAL THERAPIST'S ASSISTANT DST ? 58 ? monophasic +--------+ + + DPA ? 49 ? monophasic +--------+ + + +--------+ + + LEFT ? Velocity cm/s Phasicity ?? +--------+ + + EDUCATOR SENIOR CLINICAL PRX ? 94 ? multiphasic +--------+ + + EDUCATOR SENIOR CLINICAL DST ? 171 ? multiphasic +--------+ + + PFA ? 110 ? multiphasic +--------+ + + SFA PRX ? 116 ? multiphasic +--------+ + + SFA MID ? 81 ? multiphasic +--------+ + + SFA DST ? 55 ? multiphasic +--------+ + + RUSLAN PRX ? 64 ? multiphasic +--------+ + + RUSLAN DST ? 55 ? multiphasic +--------+ + + OCCUPATIONAL THERAPIST'S ASSISTANT DST ? 37 ? multiphasic +--------+ + [...] ? Index +-----+ +--------+ +-----+ 0.80 ?102 ?OCCUPATIONAL THERAPIST'S ASSISTANT ?90 ? 0.71 +-----+ +--------+ +-----+ 0.94 ?120 ?DPA ?110 ? 0.87 +-----+ +--------+ +-----+ 0.63 ? 80 ? Digit 1 ?87 ? 0.69 +-----+ +--------+ +-----+ Paul Bishop MD. Electronically signed on 03/12/2024 5:38:31 PM This study was performed and interpreted by a service accredited by the Intersocietal Accreditation Commission (IAC/Vascular), [email or web address] Report generated by [employer]. ??Final ?? Procedure Note Paul Bishop MD - 03/12/2024 VASCULAR ULTRASOUND REPORT MICHEAL RENE : 1955 Study Date: 03/12/2024 12:34:00 PM Age: 69 years Tech: ALEXIS Gender: M Referring MD: MARIA GUADALUPE SMITH Site: [facility] Study performed: Lower extremity [...] RIGHT Velocity cm/s Phasicity +--------+ + + EDUCATOR SENIOR CLINICAL PRX 125 multiphasic +--------+ + + EDUCATOR SENIOR CLINICAL DST 148 multiphasic +--------+ + + PFA 124 multiphasic +--------+ + + SFA PRX 126 multiphasic +--------+ + + SFA MID 147 multiphasic +--------+ + + SFA DST 157 multiphasic +--------+ + + RUSLAN PRX 60 multiphasic +--------+ + + RUSLAN DST 80 monophasic +--------+ + + OCCUPATIONAL THERAPIST'S ASSISTANT DST 58 monophasic +--------+ + + DPA 49 monophasic +--------+ + + +--------+ + + LEFT Velocity cm/s Phasicity +--------+ + + EDUCATOR SENIOR CLINICAL PRX 94 multiphasic +--------+ + + EDUCATOR SENIOR CLINICAL DST 171 multiphasic +--------+ + + PFA 110 multiphasic +--------+ + + SFA PRX 116 multiphasic +--------+ + + SFA MID 81 multiphasic +--------+ + + SFA DST 55 multiphasic +--------+ + + RUSLAN PRX 64 multiphasic +--------+ + + RUSLAN DST 55 multiphasic +--------+ + + OCCUPATIONAL THERAPIST'S ASSISTANT DST 37 multiphasic +--------+ + + DPA 75 multiphasic +--------+ + + Criteria: Stenosis V. Ratio Mild <50% <2.0 Moderate 50-74% > or = 2.0 Severe 75-99% > or = 4.0 Occluded 100% no detectable flow Pressures +-----+ +--------+ +-----+ RIGHT (mmHg) LEFT (mmHg) +-----+ +--------+ +-----+ Index 124 Brachial 127 Index +-----+ +--------+ +-----+ 0.80 102 OCCUPATIONAL THERAPIST'S ASSISTANT 90 0.71 +-----+ +--------+ +-----+ 0.94 120 DPA 110 0.87 +-----+ +--------+ +-----+ 0.63 80 Digit 1 87 0.69 +-----+ +--------+ +-----+ Paul Bishop MD. Electronically signed on 03/12/2024 5:38:31 PM This study was performed and interpreted by a service accredited by theIntersocietal Accreditation Commission (IAC/Vascular),[email or web address]/vascular Report generated by [employer]. Final Maria Guadalupe Smith MD US * (ABNORMAL) CBC (02/03/2024 10:42 AM CDT) Only the most recent of2 resultswithin the time period is included. WHITE BLOOD COUNT 5.9 4.5 - 11.0 thou/cu mm 02/03/2024 11:20 AM CDT [facility] RED BLOOD COUNT 3.57(L) 4.30 - 5.90 mil/cu mm 02/03/2024 11:20 AM CDT [facility] HEMOGLOBIN 9.5(L) 13.5 - 17.5 g/dL 02/03/2024 11:20 AM CDT [facility] HEMATOCRIT 30.9(L) 37.0 - 53.0 % 02/03/2024 11:20 AM CDT [facility] MCV 87 80 - 100 fL 02/03/2024 11:20 AM CDT [facility] MCH 26.6 26.0 - 34.0 pg 02/03/2024 11:20 AM CDT [facility] MCHC 30.7(L) 32.0 - 36.0 g/dL 02/03/2024 11:20 AM CDT [facility] RDW 13.5 11.5 - 15.5 % 02/03/2024 11:20 AM CDT [facility] PLATELET COUNT 211 140 - 440 thou/cu mm 02/03/2024 11:20 AM CDT [facility] MPV 8.3 6.5 - 11.0 fL 02/03/2024 11:20 AM CDT [facility] NRBC 0.0 % 02/03/2024 11:20 AM CDT [facility] ABS NRBC 0.0 thou /cu mm 02/03/2024 11:20 AM T [facility] Blood BLOOD SPECIMEN / Unknown Venipuncture / Unknown 02/03/2024 10:42 AM CDT 02/03/2024 10:56 AM CDT Narrative [facility] - 02/03/2024 11:20 AM CDT Call if Hemoglobin less than 10. Dary Carlos MD HEMATOLOGY [facility] [address] [place] [address], * (ABNORMAL) Basic Metabolic Panel (02/03/2024 10:42 AM CDT) Only the most recent of2 resultswithin the time period is included. SODIUM 139 136 - 145 mmol/L 02/03/2024 11:35 AM T [facility] POTASSIUM 4.7 3.5 - 5.1 mmol/L 02/03/2024 11:35 AM [facility] CHLORIDE 107 98 - 107 mmol/L 02/03/2024 11:35 AM T [facility] CO2,TOTAL 26 22 - 29 mmol/L 02/03/2024 11:35 AM T [facility] ANION GAP 6 5 - 18 02/03/2024 11:35 AM T [facility] GLUCOSE 139(H) 70 - 99 mg/dL 02/03/2024 11:35 AM T [facility] CALCIUM 8.3(L) 8.8 - 10.2 mg/dL 02/03/2024 11:35 AM T [facility] BUN 14 8 - 23 mg/dL 02/03/2024 11:35 AM T [facility] CREATININE 0.42(L) 0.70 - 1.20 mg/dL 02/03/2024 11:35 AM T [facility] BUN/CREAT RATIO 33(H) 10 - 20 11:35 AM CDT [facility] eGFR >90 >90 mL/min/1.7 3m2 02/03/2024 11:35 AM CDT [facility] Comment:As of 2021, eG [...] 10:56 AM CDT Dary Carlos MD [facility] [address] [place] [address], * SCAN-CARDIAC STRIP (02/03/2024 10:26 AM CDT) [...] Securement/dressing: Biopatch applied, dressing applied. ??Comment: Vessel Linux Architect Additional supplies used to locate vessel: no Needle Catheter size: 20 G. ??Comment:. Catheter length: 4.5 cm. ??Comment: Events: no complications. Enrico Perez MD ANESTHESIA PX N OTE ORDERABLES * (ABNORMAL) ACTIVATED CLOTTING TIME [id number] ACT (02/02/2024 1:59 PM CDT) ACTIVATED CLOTTING TIME, POCT 308(H) 74 - 125 sec 02/02/2024 3:45 PM CDT [facility] Blood BLOOD SPECIMEN / Unknown 02/02/2024 1:59 PM CDT 02/02/2024 3:45 PM CDT Maria Guadalupe Smith MD HEMATOLOGY Performing Organization Address City/[facility]/ZIP Co de Phone Number [facility] [address] [place], [place] [id number], * HCHG TUBE PR1, HCHG STYLET PR1, [...] Guadalupe Smith MD LABORATORY Performing Organization Address City/[facility]/ZIP Co de Phone Number [facility] [address] [place] [phone], [place] * RBC W/O TYPE & SCREEN (02/02/2024 10:27 AM CDT) QUANTITY 4 02/02/2024 10:27 AM CDT [facility] [employer] BLOOD BANK Blood BLOOD SPECIMEN / Unknown 02/02/2024 10:22 AM CDT Jono Malone NP BLOOD BANK Performing Organization Address [facility]/ZIP Co de Phone Number [facility] [employer] BLOOD BANK [address] [place] [address], * DONOR ANTIGEN (02/02/2024 10:22 AM CDT) Pathologist [facility] LAB BLOOD BANK DONOR ANTIGEN TYPE Donor Antigen Type [facility] BLOOD BANK Jono Malone NP BLOOD BANK Performing Organization Address [facility] Co de Phone Number [facility] [employer] BLOOD BANK [address] [place] [address], [place] [phone] * RED BLOOD CELLS EA UNIT (02/02/2024 10:22 AM CDT) Only the most recent of4 resultswithin the time period is included. [facility] [employer] Compatible Compatible [employer] LAB-CENTRAL LAB BLOOD BANK PRODUCT BLOOD TYPE A Rh Positive [employer]-[facility] BLOOD BANK PRODUCT ID NUMBER [id number] [facility] [employer] BLOOD BANK PRODUCT STATUS /Relea sed [employer] LAB-C[facility]TRAL LAB BLOOD BANK PRODUCT DESCRIPTION RBC -1 LR [employer] [facility]-C[facility]TRAL LAB BLOOD BANK PRODUCT CODE [id number] [facility] [employer] BLOOD BANK Jono Malone NP BLOOD BANK Performing Organization Address [facility] Co de Phone Number [facility] [employer] BLOOD BANK [address] [place] [address], * SCAN-CARDIAC STRIP (02/02/2024 12:00 AM CDT) Narrative 02/02/2024 12:00 AM CDT Ordered by an unspecified provider. Other Clinical Staff OTHER * (ABNORMAL) TYPE & SCREEN (02/01/2024 9:14 AM CDT) Pathologist [facility] ABORH A Rh Positive 02/01/2024 1:43 PM CDT [facility] BLOOD BANK Comment:Comment: Performed b y [facility], [address] [place] [address] [address], [place] [address] ANTIBODY SCREEN Positive(A) Negative 02/01/2024 1:43 PM CDT [facility] BLOOD BANK Comment:Comment: Performed b y Central Laboratory - [facility], [address] [place] [address] [address], [place] [address] SPECIMEN EXPIRATION DATE/TIME 02/04/24 23:59 02/01/2024 1:43 PM CDT [facility] BLOOD BANK Blood BLOOD SPECIMEN / Unknown Venipuncture / Unknown 02/01/2024 9:14 AM CDT 02/01/2024 9:21 AM CDT Maria Guadalupe Smith MD BLOOD BANK [facility] BLOOD BANK [address] [place] [address] * (ABNORMAL) ANTIBODY IDENTIFICATION LAB USE ONLY (02/01/2024 9:14 AM CDT) [facility] ANTIBODY IDENTIFICATION Anti-Duff y a(A) 02/01/2024 2:49 PM CDT [facility] BLOOD BANK Comment:Comment: Performed b y [facility], [address] [place] [address] [address], [place] [address] Blood BLOOD SPECIMEN / Unknown Venipuncture / Unknown 02/01/2024 9:14 AM CDT 02/01/2024 9:21 AM CDT Narrative [facility] BLOOD BANK - 02/01/2024 [...] Smith MD BLOOD BANK Performing Organization Address City/[facility]/ZIP Co de Phone Number [facility] BLOOD BANK [address] [place] [address] * ANTIBODY IDENTIFICATION EACH PANEL (02/01/2024 9:14 AM CDT) [facility] QUANTITY 1 [facility] BLOOD BANK PANEL JOSÉ MIGUEL ID Panel Antibody ID [facility] BLOOD BANK Maria Guadalupe Smith MD BLOOD BANK Performing Organization Address [facility] Co de Phone Number [facility] BLOOD BANK [address] [place] [address] * SCAN CORRESP-LABORATORY RESULTS (02/01/2024 9:09 AM CDT) Narrative 02/01/2024 9:09 AM CDT Ordered by an unspecified provider. Other Clinical Staff OTHER * Lipid Panel - In AM (07/14/2008 3:00 AM MEDICAL SECRETARY RECEPTIONIST) [facility] CHOLESTEROL,TOTAL 141 110 - 199 mg/dL [facility] TRIGLYCERIDES 41 40 - 149 mg/dL [facility] HDL CHOLESTEROL 45 >40 mg/dL [facility] CHOL/HDL RATIO 3.13 <4.51 [facility] LDL CHOLESTEROL 88 <131 mg/dL [facility] PATIENT STATUS Fasting [facility] Blood specimen (specimen) BLOOD SPECIMEN / Unknown 07/14/2008 3:00 AM MEDICAL SECRETARY RECEPTIONIST 07/14/2008 1:52 AM MEDICAL SECRETARY RECEPTIONIST Phyllis Sánchez MD CHEMISTRY [facility] INTERNAL ZIP [phone] [address] from Last 3 Months or Most Recently [...] 6:44 AM 03/14/2016 5:37 PM Care Teams International Marketing Executive Relationship Specialty Start Date End Date Alex Mata MD [address] [place] [address] PCP - General Family Practice 02/04/20 Ana Mayers [address] [place] [address] Nurse Practitioner 03/02/11 Jak Keys NP [address] [place] [address] Nurse Practitioner Nurse Practitioner - Adult 10/30/23
== END 2024-04-08 08:03 | disposition home or self-care (01) ==
LOC: WOUND 08:03
PROVIDERS: PCP Family Medicine; Visit Provider Nurse Practitioner Family
DX: M86.671 Other chronic osteomyelitis, right ankle and foot (principal); L89.614 Pressure ulcer of right heel, stage 4; L89.894 Pressure ulcer of other site, stage 4; L89.893 Pressure ulcer of other site, stage 3; L89.314 Pressure ulcer of right buttock, stage 4; S14.155S Other incomplete lesion at C5 level of cervical spinal cord, sequela; Z99.3 Dependence on wheelchair
CPT/HCPCS: 15271; 97597; 97598; G0277; Q4201

== ENCOUNTER 2024-04-15 08:00 | Outpatient (CLI) | payer OTHER, SELFPAY ==
--- OUTSIDE RECORDS SUMMARY | 2024-04-15 08:04 | XMS_ITS | Clinical Summary ---
Author Organization [employer] [facility] Address [place], [place] [address] Care Team Providers Care Register In Chancery Name Role Phone Goyoluis aAna Unavailable Alex Mata MD Primary Care Provider + Jak Keys [employer] Unavailable [phone] Allergies Active Allergy Reactions Criticality Noted Date Comments Blood-Group Specific Substance Other - Describe In Comment Field 04/19/2021 Patient has Sims a (Fya) antibody. Blood products may be delayed. Draw patient 24 hours prior to transfusion. For Invaluable testing, draw one red top and two [...] meal. Active aspirin chewable 81 mg chewable tabletIndications:PAD (peripheral artery disease) (HC) Chew 1 Tablet (81 mg) by mouth once daily with a meal. 01/17/2024 Active methenamine hippurate (HIPREX) 1 gram tablet Take 1 g by mouth. TWICE DAILY ON DAY 1-3 OF EACH MONTH Active atorvastatin (LIPITOR) 40 mg tabletIndications:PAD (peripheral artery disease) (HC) Take 1 Tablet (40 mg) by mouth once daily. 90 Tablet 3 03/12/2024 Active Active Problems Problem Noted Date Diagnosed Date Asymmetrical sensorineural hearing loss 05/09/20 24 Anemia, chronic disease 11/17/2023 Bilateral cataracts [...] (11/17/2023): 09/20/23 bilateral lower extremity arterial ultrasound ([facility]) S/P flap graft 03/06/2020 Neurogenic orthostatic [...] Description 03/12/2024 2:00 PM CDT Office Visit [facility] [address] [place] [address] Maria Guadalupe Smith MD CV Vascular Est (4 week follow up; PAD with non-healing RLE wounds. U/S scheduled prior) 03/12/2024 12:24 PM CDT - 03/12/2024 11:59 PM CDT Hospital Encounter [facility] [address] [place] [address] Maria Guadalupe Smith MD Leistner, Joseph S, R.T. (ARRT) PAD (peripheral artery disease) (HC) 03/12/2024 Travel 02/13/2024 Refill [facility] [address], [place] [address] Maria Guadalupe Smith MD Refill Request 02/02/2024 1:04 PM CDT Anesthesia Event [facility] [address] [place] [address] Enrico Perez MD Beulke, Steven William, CRNA 02/02/2024 10:01 AM CDT - 02/03/2024 1:05 PM CDT Hospital Encounter [facility] [address] [place] [address] Maria Guadalupe Smith MD Taylor, Phillip Norman, MD Erickson, Andrew Richard, CRNA Discharge Disposition: Home Self Care 02/01/2024 8:53 AM CDT - 02/01/2024 11:59 PM CDT Hospital Encounter [facility] [address] [place] [address] PAD (peripheral artery disease) (HC) 02/01/2024 8:15 AM CDT Office Visit [facility] [address] [place] [address] Raquel Multani MD [facility] (1989 injury//Mixed conductive and sensorineural hearing loss of left ear with restricted hearing of right ear//Bilateral hearing loss, unspecified hearing loss type//Sensorineural hearing loss (SNHL) of right ear with restricted hearing of left ear) 02/01/2024 Travel 01/19/2024 Telephone [facility] [address] [place] [address] Maria Guadalupe Smith MD Surgery Scheduled 01/17/2024 8:00 AM CDT Office Visit [facility] [place] [address] [facility] [place] [address] Maria Guadalupe Smith MD Consult (blood flow [...] Contact Info) Description 05/03/2024 Cardiac Device Check Invaluable [facility] [phone] Health Maintenance Due Date Last Done Comments [...] 12/26/2008, 09/01/2006 Medical Devices Implanted Type Area Rug Designer Device Identifier Shelf Expiration Date Model / Serial / Lot Standard Pacemaker-12/21 Implanted:11/23 by Judson Jenkins MD (Quantity not on file) Standard Pacemaker Medtronic [id number] / [id number] / Procedures Procedure Name Priority Date/Time Associated [...] LIPID PANEL Early AM 07/14/2008 3:00 AM 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 [id number] : ?[id number] ??Study Date: ?? 03/12/2024 12:34:00 PM Age: ?69 years ?? Tech: ? JSL Gender: M ?Referring MD: MARIA GUADALUPE SMITH Site: [facility] V[facility] Center Study performed: ?Lower extremity (bilateral), [...] Velocity cm/s Phasicity ?? +--------+ + + WEBSITE ADMIN PRX ? 125 ? multiphasic +--------+ + + WEBSITE ADMIN DST ? 148 ? multiphasic +--------+ + + PFA ? 124 ? multiphasic +--------+ + + SFA PRX ? 126 ? multiphasic +--------+ + + SFA MID ? 147 ? multiphasic +--------+ + + SFA DST ? 157 ? multiphasic +--------+ + + RUSLAN PRX ? 60 ? multiphasic +--------+ + + RUSLAN DST ? 80 ? monophasic +--------+ + + CONVERTING SUPERVISOR DST ? 58 ? monophasic +--------+ + + DPA ? 49 ? monophasic +--------+ + + +--------+ + + LEFT ? Velocity cm/s Phasicity ?? +--------+ + + WEBSITE ADMIN PRX ? 94 ? multiphasic +--------+ + + WEBSITE ADMIN DST ? 171 ? multiphasic +--------+ + + PFA ? 110 ? multiphasic +--------+ + + SFA PRX ? 116 ? multiphasic +--------+ + + SFA MID ? 81 ? multiphasic +--------+ + + SFA DST ? 55 ? multiphasic +--------+ + + RUSLAN PRX ? 64 ? multiphasic +--------+ + + RUSLAN DST ? 55 ? multiphasic +--------+ + + CONVERTING SUPERVISOR DST ? 37 ? multiphasic +--------+ + [...] ? Index +-----+ +--------+ +-----+ 0.80 ?102 ?CONVERTING SUPERVISOR ?90 ? 0.71 +-----+ +--------+ +-----+ 0.94 ?120 ?DPA ?110 ? 0.87 +-----+ +--------+ +-----+ 0.63 ? 80 ? Digit 1 ?87 ? 0.69 +-----+ +--------+ +-----+ Paul Bishop MD. Electronically signed on 03/12/2024 5:38:31 PM This study was performed and interpreted by a service accredited by the Intersocietal Accreditation Commission (IAC/Vascular), [email or web address] Report generated by [employer]. ??Final ?? Procedure Note Paul Bishop MD [...] RIGHT Velocity cm/s Phasicity +--------+ + + WEBSITE ADMIN PRX 125 multiphasic +--------+ + + WEBSITE ADMIN DST 148 multiphasic +--------+ + + PFA 124 multiphasic +--------+ + + SFA PRX 126 multiphasic +--------+ + + SFA MID 147 multiphasic +--------+ + + SFA DST 157 multiphasic +--------+ + + RUSLAN PRX 60 multiphasic +--------+ + + RUSLAN DST 80 monophasic +--------+ + + CONVERTING SUPERVISOR DST 58 monophasic +--------+ + + DPA 49 monophasic +--------+ + + +--------+ + + LEFT Velocity cm/s Phasicity +--------+ + + WEBSITE ADMIN PRX 94 multiphasic +--------+ + + WEBSITE ADMIN DST 171 multiphasic +--------+ + + PFA 110 multiphasic +--------+ + + SFA PRX 116 multiphasic +--------+ + + SFA MID 81 multiphasic +--------+ + + SFA DST 55 multiphasic +--------+ + + RUSLAN PRX 64 multiphasic +--------+ + + RUSLAN DST 55 multiphasic +--------+ + + CONVERTING SUPERVISOR DST 37 multiphasic +--------+ + + DPA 75 multiphasic +--------+ + + Criteria: Stenosis V. Ratio Mild <50% <2.0 Moderate 50-74% > or = 2.0 Severe 75-99% > or = 4.0 Occluded 100% no detectable flow Pressures +-----+ +--------+ +-----+ RIGHT (mmHg) LEFT (mmHg) +-----+ +--------+ +-----+ Index 124 Brachial 127 Index +-----+ +--------+ +-----+ 0.80 102 CONVERTING SUPERVISOR 90 0.71 +-----+ +--------+ +-----+ 0.94 120 DPA 110 0.87 +-----+ +--------+ +-----+ 0.63 80 Digit 1 87 0.69 +-----+ +--------+ +-----+ Paul Bishop MD. Electronically signed on 03/12/2024 5:38:31 PM This study was performed and interpreted by a service accredited by theIntersocietal Accreditation Commission (IAC/Vascular),[email or web address] Report generated by [employer]. Final Maria Guadalupe Smith MD US * (ABNORMAL) CBC (02/03/2024 10:42 AM CDT) Only the most recent of2 resultswithin the time period is included. WHITE BLOOD COUNT 5.9 4.5 - 11.0 thou/cu mm 02/03/2024 11:20 AM CDT [facility] RED BLOOD COUNT 3.57(L) 4.30 - 5.90 mil/cu mm 02/03/2024 11:20 AM CDT [facility] HEMOGLOBIN 9.5(L) 13.5 - 17.5 g/dL 02/03/2024 11:20 AM T [facility] HEMATOCRIT 30.9(L) 37.0 - 53.0 % 02/03/2024 11:20 AM CDT [facility] MCV 87 80 - 100 fL 02/03/2024 11:20 AM T [facility] MCH 26.6 26.0 - 34.0 pg 02/03/2024 11:20 AM T [facility] MCHC 30.7(L) 32.0 - 36.0 g/dL 02/03/2024 11:20 AM T [facility] RDW 13.5 11.5 - 15.5 % 02/03/2024 11:20 AM T [facility] PLATELET COUNT 211 140 - 440 thou/cu mm 02/03/2024 11:20 AM T [facility] MPV 8.3 6.5 - 11.0 fL 02/03/2024 11:20 AM CDT [facility] NRBC 0.0 % 02/03/2024 11:20 AM CDT [facility] ABS NRBC 0.0 thou /cu mm 02/03/2024 11:20 AM [facility] Blood BLOOD SPECIMEN / Unknown Venipuncture / Unknown 02/03/2024 10:42 AM CDT 02/03/2024 10:56 AM CDT [facility] - 02/03/2024 11:20 AM CDT Call if Hemoglobin less than 10. Dary Carlos MD HEMATOLOGY [facility] [address] [place] [address], * (ABNORMAL) Basic Metabolic Panel (02/03/2024 10:42 AM CDT) Only the most recent of2 resultswithin the time period is included. SODIUM 139 136 - 145 mmol/L 02/03/2024 11:35 AM CDT [facility] POTASSIUM 4.7 3.5 - 5.1 mmol/L 02/03/2024 11:35 AM T [facility] CHLORIDE 107 98 - 107 mmol/L 02/03/2024 11:35 AM T [facility] CO2,TOTAL 26 22 - 29 mmol/L 02/03/2024 11:35 AM T [facility] ANION GAP 6 5 - 18 02/03/2024 11:35 AM T [facility] GLUCOSE 139(H) 70 - 99 mg/dL 02/03/2024 11:35 AM T [facility] CALCIUM 8.3(L) 8.8 - 10.2 mg/dL 02/03/2024 11:35 AM T [facility] BUN 14 8 - 23 mg/dL 02/03/2024 11:35 AM T [facility] CREATININE 0.42(L) 0.70 - 1.20 mg/dL 02/03/2024 11:35 AM T [facility] BUN/CREAT RATIO 33(H) 10 - 20 11:35 AM T [facility] eGFR >90 >90 mL/min/1.7 3m2 02/03/2024 11:35 AM T [facility] Comment:As of 2021, eG [...] 10:56 AM CDT Dary Carlos MD CHEMISTRY [facility] [address] [place] [address], * SCAN-CARDIAC STRIP (02/03/2024 10:26 AM CDT) [...] Securement/dressing: Biopatch applied, dressing applied. ??Comment: Vessel Director Patient Additional supplies used to locate vessel: no Needle Catheter size: 20 G. ??Comment:. Catheter length: 4.5 cm. ??Comment: Events: no complications. Enrico Perez MD ANESTHESIA PX N OTE ORDERABLES * (ABNORMAL) ACTIVATED CLOTTING TIME [id number] ACT (02/02/2024 1:59 PM CDT) ACTIVATED CLOTTING TIME, POCT 308(H) 74 - 125 sec 02/02/2024 3:45 PM CDT [facility] Blood BLOOD SPECIMEN / Unknown 02/02/2024 1:59 PM CDT 02/02/2024 3:45 PM CDT Maria Guadalupe Smith MD HEMATOLOGY Performing Organization Address [facility] Co de Phone Number [facility] [address] [place] [address], * HCHG TUBE PR1, HCHG STYLET PR1, [...] Guadalupe Smith MD LABORATORY Performing Organization Address [facility] Co de Phone Number [facility] [address] [place] [address], * RBC W/O TYPE & SCREEN (02/02/2024 10:27 AM CDT) Pathologist [facility] QUANTITY 4 02/02/2024 10:27 AM CDT [facility] Blood BLOOD SPECIMEN / Unknown 02/02/2024 10:22 AM CDT Jono Malone NP BLOOD BANK Performing Organization Address [facility]/ZIP Co de Phone Number [facility] Emb[facility]CENTRAL LAB BLOOD BANK [address] [place] [address], [place] [phone] * DONOR ANTIGEN (02/02/2024 10:22 AM CDT) QUANTITY 4 [facility] LAB-CENTRAL LAB BLOOD BANK DONOR ANTIGEN TYPE Donor Antigen Type [facility] Jono Malone NP BLOOD BANK Performing Organization Address [facility] Co de Phone Number [facility]VoiceBunnyCENTRAL [facility] BLOOD BANK [address] [place] [address], [place] [phone] * RED BLOOD CELLS EA UNIT (02/02/2024 10:22 AM CDT) Only the most recent of4 resultswithin the time period is included. CROSSMATCH Compatible Compatible [facility] [employer] [place] Punkt[facility]TRAL LAB BLOOD BANK PRODUCT BLOOD TYPE A Rh Positive [facility] LAB BLOOD B[facility] PRODUCT ID NUMBER [id number] [facility]VoiceBunnyCENTRAL LAB BLOOD BANK PRODUCT STATUS /Relea sed [facility] BLOOD BANK PRODUCT DESCRIPTION RBC -1 LR [facility] [employer] [place] PunktCENTRAL LAB BLOOD BANK PRODUCT CODE [id number] [facility]ITAL[facility]om[facility] LAB BLOOD BANK Jono Malone NP BLOOD BANK Performing Organization Address [facility]/ZIP Co de Phone Number [facility] EmbueCENTRAL LAB BLOOD BANK [address] [place] [address], [place] [phone] * SCAN-CARDIAC STRIP (02/02/2024 12:00 AM CDT) Narrative 02/02/2024 12:00 AM CDT Ordered by an unspecified provider. Other Clinical Staff OTHER * (ABNORMAL) TYPE & SCREEN (02/01/2024 9:14 AM CDT) Pathologist [facility] ABORH A Rh Positive 02/01/2024 1:43 PM CDT [facility] BLOOD BANK Comment:Comment: Performed b y [facility] - [facility], [address] [place] [address] S [address], [place] [address] ANTIBODY SCREEN Positive(A) Negative 02/01/2024 1:43 PM CDT [facility] BLOOD BANK Comment:Comment: Performed b y [facility], [address] [place] [address] [address], [place] [address] SPECIMEN EXPIRATION DATE/TIME 02/04/24 23:59 02/01/2024 1:43 PM CDT [facility] BLOOD BANK Blood BLOOD SPECIMEN / Unknown Venipuncture / Unknown 02/01/2024 9:14 AM CDT 02/01/2024 9:21 AM CDT Maria Guadalupe Smith MD BLOOD BANK [facility] BLOOD BANK [address] [place] [address] * (ABNORMAL) ANTIBODY IDENTIFICATION LAB USE ONLY (02/01/2024 9:14 AM CDT) [facility] ANTIBODY IDENTIFICATION Anti-Duff y a(A) 02/01/2024 2:49 PM CDT [facility] BLOOD BANK Comment:Comment: Performed b y [facility] - [facility], [address] [place] [address] [address], [place] [address] Blood BLOOD SPECIMEN / Unknown Venipuncture / Unknown 02/01/2024 9:14 AM CDT 02/01/2024 9:21 AM CDT Narrative [facility] BLOOD BANK - 02/01/2024 [...] required, please contact the performing laboratory Maria Guadaulpe Smith MD BLOOD BANK [facility] BLOOD BANK [address] [place] [address] * ANTIBODY IDENTIFICATION EACH PANEL (02/01/2024 9:14 AM CDT) QUANTITY 1 [facility] BLOOD BANK PANEL JOSÉ MIGUEL ID Panel Antibody ID [facility] BLOOD BANK Maria Guadalupe Smith MD BLOOD BANK Performing Organization Address [facility]/ZIP Co de Phone Number [facility] BLOOD BANK [address] [place] [address] * SCAN CORRESP-LABORATORY RESULTS (02/01/2024 9:09 AM CDT) Narrative 02/01/2024 9:09 AM CDT Ordered by an unspecified provider. 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 OPERATOR) CHOLESTEROL,TOTAL 141 110 - 199 mg/dL [facility] TRIGLYCERIDES 41 40 - 149 mg/dL [facility] HDL CHOLESTEROL 45 >40 mg/dL [facility] CHOL/HDL RATIO 3.13 <4.51 [facility] LDL CHOLESTEROL 88 <131 mg/dL [facility] PATIENT STATUS Fasting [facility] Blood specimen (specimen) BLOOD SPECIMEN / Unknown 07/14/2008 3:00 AM MULTIPLE SPINDLE SCREW MACHINE OPERATOR 07/14/2008 1:52 AM MULTIPLE SPINDLE SCREW MACHINE OPERATOR Phyllis Sánchez MD CHEMISTRY [facility] INTERNAL ZIP [phone] [address] from Last 3 Months or Most Recently [...] 12 months since positive culture): resides in acute[facility], receiving hemodialysis, has chronic open wounds/skin [...] 6:44 AM 03/14/2016 5:37 PM Care Teams Register In Chancery Relationship Specialty Start Date End Date Alex Mata MD [address] [place] [address] PCP - General Family Practice 02/04/20 Ana Mayers [address] [place] [address] Nurse Practitioner 03/02/11 Jak Keys NP [facility] [address] [address] Nurse Practitioner Nurse Practitioner - Adult 10/30/23
== END 2024-04-15 08:01 | disposition home or self-care (01) ==
LOC: WOUND 08:00
PROVIDERS: PCP Family Medicine; Visit Provider Nurse Practitioner Family
DX: M86.671 Other chronic osteomyelitis, right ankle and foot (principal); L89.614 Pressure ulcer of right heel, stage 4; L89.894 Pressure ulcer of other site, stage 4; L89.314 Pressure ulcer of right buttock, stage 4; L89.893 Pressure ulcer of other site, stage 3; L30.4 Erythema intertrigo; S14.155S Other incomplete lesion at C5 level of cervical spinal cord, sequela; Z99.3 Dependence on wheelchair
CPT/HCPCS: 11042; 11045; 15271; 15275; 97597; 97602; G0277; Q4201

== ENCOUNTER 2024-04-18 08:00 | Outpatient (RCR) | payer OTHER, SELFPAY | END 2024-04-22 23:59 | disposition home or self-care (01) | LOC: WOUND 08:00 | PROVIDERS: PCP Family Medicine; Visit Provider Nurse Practitioner Family | DX: M86.671 Other chronic osteomyelitis, right ankle and foot (principal); L89.614 Pressure ulcer of right heel, stage 4; L89.894 Pressure ulcer of other site, stage 4; L89.893 Pressure ulcer of other site, stage 3; L89.314 Pressure ulcer of right buttock, stage 4; I73.9 Peripheral vascular disease, unspecified; S14.155S Other incomplete lesion at C5 level of cervical spinal cord, sequela; Z99.3 Dependence on wheelchair | CPT/HCPCS: G0277 ==

== ENCOUNTER 2024-04-22 08:04 | Outpatient (CLI) | payer OTHER, SELFPAY ==
--- OUTSIDE RECORDS SUMMARY | 2024-04-22 08:09 | XMS_ITS | Data Portability ---
Author Organization [facility], [facility] Address [address] [place] [address] Care Team Providers Care Hall Supervisor Name Role Phone CHETNA MERAZ Primary Care Provider RAHUL OCONNOR Department Manager Assessment Encounter Date Assessment Date Assessment [...] None recorded. Lab culture, urine 2020 021 [facility], [address], [place], [address], 07:39:35 urinalysis, dipstick 2020 021 marie Not available 10/20/202 1 11:34:22 Referral None recorded. Procedures None recorded. Surgeries None recorded. Imaging US, kidney 2021 022 [facility] Radiology Department, [address] [place], [address], 2 09:00:29 Medication Orders oxybutynin chloride ER 15 mg tablet,exte nded release 24 hr 2021 022 [facility][id number], [address], [place], [place], [id number], 2 12:53:22 nitrofurant oin macrocrysta l 50 mg capsule [address] [facility]51030, [address], [place], [place], [id number], 4 08:10:56 nitrofurant oin macrocrysta l 50 mg capsule [address] [facility]65558, [address], [place], [place], [id number], 4 08:10:56 oxybutynin chloride ER 15 mg tablet,exte nded release 24 hr 2022 023 [facility] #55283, [address] , [place], [place], [id number], 3 12:15:06 methenamine hippurate 1 gram tablet [address] [facility]57679, [address] , [place], [place], [id number], 4 23:05:30 methenamine hippurate 1 gram tablet 2023 024 [facility] #61307, [address] , [place], [place], [id number], 4 23:05:37 oxybutynin chloride ER 15 mg tablet,exte nded release 24 hr 2023 024 [facility]302, [address] , [place], [id number], 4 23:04:50 Patient TargetsNo targets recorded. Patient InstructionsNo instructions recorded. Reason for Referral None Reported. Results Created Date Observation Date Name Description Value Unit Range Abnormal Flag Note LastModifiedBy Organization Detail LastModifiedTime 05/12/2021 urina lysis , dipst ick Color-Status Yellow Not Available [facility] [address], [place], [address], 05/12/2021 11:33:40 05/12/2021 urina lysis , dipst ick Clarity-Stat us Cloudy Not Available [facility] [address], [place], [address], 05/12/2021 11:33:40 05/12/2021 urina lysis , dipst ick pH-Status 7.5 Not Available [facility] [address], [place], [address], 05/12/2021 11:33:40 05/12/2021 urina lysis , dipst ick Nitrates-Sta tus positi ve Not Available [facility] [address], [place], [address], 05/12/2021 11:33:40 05/12/2021 urina lysis , dipst ick Blood-Status Small Not Available [facility] [address], [place], [address], 05/12/2021 11:33:40 05/12/2021 urina lysis , dipst ick Leuko-Status Large Not Available [facility] [address], [place], [address], 05/12/2021 11:33:40 05/06/20 21 05/06/2021 URINE CULTU [...] y Type Sensi tivit y [place] sis [place] te 1 [place] te 2 ----- ----- ----- ----- ----- [...] s Desk [facility]er [facility]ce [facility]. S= Susce ptibl e;I= Inter media te;R= Resis tant; ESBL= Resis tance due to confi rmed ESBL Not Available [facility] [address], [place], [address], 05/08/2021 07:39:35 10/07/19 22 10/05/2021 US, kidne y No observ ation record ed. [address] Radiology Department [address] [place], [address], 09/28/2022 13:47:50 Result Notes None recorded. Procedures Surgical History Date Name Laterality Status Provider Name and Address Organization Details Recorded Time 11/01/19 24 COMPLEX VISIT completed Jono Pagan MD [address], [place], [address], [facility] 11/01/2023 08:09:54 excision of pressure injury completed Jono Pagan MD [address], [place], [address], [facility] 09/28/2022 11:00:08 maintenance procedure for cardiac pacemaker system completed Veronika Begum [facility] 11/01/2023 11:05:10 Imaging Results Imaging Date Name Status LastModified by Organiz ation Details LastModified Time 10/05/2021 US, kidney completed [address] Radiology Department [address] [place], [address], 09/28/2022 13:47:50 Procedure Notes None recorded. Medical Equipment None Reported. Allergies Allergen ID Allergen Name Allergen Category Reaction Reaction Severity Criticality Documentation Date Start Date Code Code System Note Provider Name and Address Organization Details Recorded Time 429165 Medicinal product containin g cephalosp pao and acting as antibacte rial agent (product) medicatio n Not available Not available Not available 09/27/2021 70791 9009 SNOMED Nasreen hwang [facility] 12:43:20 229186 shellfish derived food,medi cation Not available Not available Not available 11/01/2023 [place] [facility] 11:03:08 Medications Name Sig Start Date Stop [...] Updated DateTime 09/28/2022 182.88 cm 19.4 kg/m2 19384.71 g Veronika Begum [facility] 09/28/2022 10:55:01 Date Recorded Body height Body mass index (BMI) Body weight Provider Name and Address Organization Details Last Updated DateTime 04/28/2023 182.88 cm 19.4 kg/m2 20950.71 g Mindy Malone [facility] 04/28/2023 11:39:29 Date Recorded Body height Body mass index (BMI) Body weight Provider Name and Address Organization Details Last Updated DateTime 10/12/2023 182.88 cm 19.4 kg/m2 22217.71 g Veronika Begum [facility] 10/12/2023 12:26:19 Date Recorded Body height Body mass index (BMI) Body weight Provider Name and Address Organization Details Last Updated DateTime 11/01/2023 182.88 cm 18.7 kg/m2 07780.75 g Veronika Begum [facility] 11/01/2023 11:02:57 Date Recorded Body height Body mass index (BMI) Body weight Provider Name and Address Organization Details Last Updated DateTime 05/06/2021 182.88 cm 19.4 kg/m2 31647.71 g Chelsea Medrano [facility] 05/06/2021 12:47:45 Date Recorded Body height Body mass index (BMI) Body weight Provider Name and Address Organization Details Last Updated DateTime 09/27/2021 182.88 cm 19.4 kg/m2 56597.71 g Nasreen Salas [facility] 09/27/2021 12:43:07 Social History Question Answer Notes LastModified by Organizat ion Details LastModified Time Tobacco Smoking Status [facility] 14:55:09 What Is Your Level [...] Age of this Age Resolved Age Notes LastModified by Organization Details LastModified Time Mother Family history of cardiac disorder [email or web address] Not available 09/27 12:44:19 Mother Family history of Hypertension [email or web address] Not available 12:44:28 Brother Family history of cardiac disorder [email or web address] Not available 09/27 12:44:19 Father Family history of cardiac disorder [email or web address] Not available 09/27 12:44:19 Father Family history of Hypertension [email or web address] Not available 12:44:28 Medical History Condition Response Sexually Transmitted Infection N Diabetes N Bleeding Disorder N Other N High [...] mL dose 08/20/2020 completed [facility] 04/28/2023 11:39:35 COVID-19, mRNA, LNP-S, PF, 30 mcg/0.3 mL dose 09/14/2020 completed Mindy hwang [facility] 04/28/2023 11:39:35 Pneumococcal conjugate PCV20, polysaccharide QNX262 conjugate, adjuvant, PF 12/01/2022 completed Mindy hwang [facility] 04/28/2023 11:39:35 influenza, unspecified formulation 05/24/2006 maki hwang [facility] 04/28/2023 11:39:35 Tdap 09/01/2006 maki hwang [facility] 04/28/2023 11:39:35 Tdap 12/26/2008 completed Mindy hwang [facility] 04/28/2023 11:39:35 zoster live 01/29/2015 completed Mindy hwang, [facility] 04/28/2023 11:39:35 Influenza, split virus, trivalent, PF 03/25/2011 completed Mindy Malone null, [facility] 04/28/2023 11:39:35 Influenza, split [...] Hep A, adult 09/30/2002 completed Mindy hwang, [facility] 04/28/2023 11:39:35 Hep A, adult 11/19/2004 completed Mindy hwang, [facility] 04/28/2023 11:39:35 Hep A, adult 05/01/2003 completed Mindy hwang [facility] 04/28/2023 11:39:35 typhoid, ViCPs 09/01/2006 completed Mindy hwang, [facility] 04/28/2023 11:39:35 typhoid, ViCPs 09/30/2002 completed Mindy hwang, [facility] 04/28/2023 11:39:35 Past Encounters Encounter ID Performer Location Encounter Start Date Encounter Closed Date Diagnosis/Indication Diagnosis SNOMED-CT Code Diagnosis ICD10 Code [id number] Jono Pagan MD [facility] [address] [place] [address] 02/18/2021 14:23:42 02/19/2021 12:13:21 Neurogenic urinary bladder 843480986 N31.9 Spinal cord injury 75315 004 G95.89 Spasm of u rinary bladder 876264872 N32.89 Recurrent urinary tract infection 671631319 N39.0 Acute urin estefany tract infection 223211851 N39.0 [id number] Marlene Greer [facility] [address] [place] [address] 05/06/2021 11:58:15 05/11/2021 03:52:30 Abnormal urine 060568993 R82.90 [id number] Jono Pagan MD [facility] [address] [place] [address] 09/27/2021 12:37:54 10/27/2021 09:29:43 Neurogenic urinary bladder 838564479 N31.9 Spinal cord injury 57394 004 G95.89 Spasm of u rinary bladder 254897591 N32.89 Recurrent urinary tract infection 743167788 N39.0 [id number] Jono Pagan MD [facility] [address] [place] [address] 09/28/2022 10:53:21 10/01/2022 11:26:52 Neurogenic urinary bladder 711785254 N31.9 Spinal cord injury 12425 004 G95.89 Spasm of u rinary bladder 282831784 N32.89 Recurrent urinary tract infection 717757393 N39.0 [id number] Jono Pagan MD [facility] [address] [place] [address] 04/28/2023 11:30:11 05/04/2023 11:13:13 Neurogenic urinary bladder 875789363 N31.9 Spinal cord injury 84646 004 G95.89 Spasm of u rinary bladder 448394050 N32.89 Recurrent urinary tract infection 281916845 N39.0 [id number] Jono Pagan MD [facility] [address] [place] [address] 11/01/2023 10:52:02 11/02/2023 14:01:41 Neurogenic urinary bladder 042876610 N31.9 Spinal cord injury 84265 004 G95.89 Spasm of u rinary bladder 511289671 N32.89 Recurrent urinary tract infection 595830279 N39.0 Health Concerns Section Related Observation LastModified by Organization Detai ls LastModified Time None Recorded Concern Status LastModified by Organization Details LastModified Time None Recorded Advance Directives Directive None Recorded Payers Encounter Date Sequence Insurance Name Policy Number Policy Quinones Covered Member ID Quinones Member ID Guarantor Name 05/06/2021 [facility] fresh[employer] INS[employer] [facility] [id number] Happy [employer] Khanh [place] 09/27/2021 1 [facility] (MEDICARE REPLACEMENT/AD VANTAGE - PPO) [id number] Khan[employer] [place] [id number] Khan[employer] [place] 09/28/2022 [employer] [facility] [employer] [id number] Happy [employer]as Khan[place] 04/28/2023 1 [facility] (MEDICARE REPLACEMENT/AD VANTAGE - PPO) [id number] Khanh [place] [id number] Khan[employer] [place] 11/01/2023 [facility] fresh[employer] INS[employer] [facility] [id number] Happy [employer] Khanh Rene Notes Date Note Type Note Provider Name and Address Organization Details Recorded Time 05/06/2021 text/html HPI Notes: Pt he re for UA/UC due to low back ache, cloudy urine with sediment present X 1.5 weeks. pt given cipro 500mg BID pending culture. 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 Jono Pagan MD [address], [place], [address], [facility] 09/27/2021 13:13:14 09/28/2022 text/html HPI [...] US reviewed with no upper tract abnormality. Joon Pagan MD [address], [place], [address], [facility] 09/28/2022 13:48:55 04/28/2023 text/html HPI [...] since the summer. Jono Pagan MD [address], [place], [address], [facility] 04/28/2023 12:27:52 11/01/2023 text/html HPI [...] traveling. Jono Pagan MD [address], [place], [address], [facility] 11/01/2023 23:05:58
--- OUTSIDE RECORDS SUMMARY | 2024-04-22 08:09 | XMS_ITS | Clinical Summary ---
Author Organization [facility] Address [place], [place] [address] Care Team Providers Care Cut To Length Operator Name Role Phone Goyoluis aAna Unavailable Alex Mata MD Primary Care Provider + Jak Keys FLUID JET CUTTER OPERATOR Unavailable [phone] Allergies Active Allergy Reactions Criticality Noted Date Comments Blood-Group Specific Substance Other - Describe In Comment Field 04/19/2021 Patient has Sims a (Fya) antibody. Blood products may be delayed. Draw patient 24 hours prior to transfusion. For [place] testing, draw one red top and two [...] (11/17/2023): 09/20/23 bilateral lower extremity arterial ultrasound ([place] [...] Description 03/12/2024 2:00 PM CDT Office Visit [facility] [address] [place] [address] Maria Guadalupe Smith MD CV Vascular Est (4 week follow up; PAD with non-healing RLE wounds. U/S scheduled prior) 03/12/2024 12:24 PM CDT - 03/12/2024 11:59 PM CDT Hospital Encounter [facility] [address] [place] [address] Maria Guadalupe Smith MD Leistner, Joseph S, R.T. (ARRT) PAD (peripheral artery disease) (HC) 03/12/2024 Travel 02/13/[address] [facility] [address] [address] Maria Guadalupe Smith MD Refill Request 02/02/2024 1:04 PM CDT Anesthesia Event [facility] [address] [place] [address] Enrico Perez MD Beulke, Steven William, CRNA 02/02/2024 10:01 AM CDT - 02/03/2024 1:05 PM CDT Hospital Encounter [facility] [address] [place] [address] Maria Guadalupe Smith MD Taylor, Phillip Norman, MD Erickson, Andrew Richard, CRNA Discharge Disposition: Home Self Care 02/01/2024 8:53 AM CDT - 02/01/2024 11:59 PM CDT Hospital Encounter [facility] [address] [place] [address] PAD (peripheral artery disease) (HC) 02/01/2024 8:15 AM CDT Office Visit [facility] [address] [place] [address] Raquel Multani MD [facility] (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 loss of left ear with restricted hearing of right ear//Bilateral hearing loss, unspecified hearing loss type//Sensorineural hearing loss (SNHL) of right ear with restricted hearing of left ear) 02/01/2024 Travel from Last 3 Months Immunizations Name [...] Contact Info) Description 05/03/2024 Cardiac Device Check [facility] [phone] Health Maintenance Due Date Last Done Comments Hepatitis C screening for age 18-79 1972 Colonoscopy through age 75 1999 Lipids for age 45-75 07/14/2013 07/14/2008 Zoster (shingles) series for age 50+ (2 of 3) 03/26/2015 01/29/2015 Depression screening for age 12+ 08/15/2018 08/15/19 Tetanus booster 12/26/2018 12/26/2008, 03/2007, 03/21/1997 AAA screening age 65-74 2019 Medicare Wellness for age 65+ 2019 Pneumococcal series for age 65+ (1 of 1 - PCV) 2019 COVID-19 vaccine series (3 - season) 2024 09/14/2020, 08/20/2020 Influenza for age 65+ 03/24/2024 03/25/2011, 006 Tdap Completed 12/26/2008, 09/01/2006 Medical Devices Implanted Type Area Import Specialist Device Identifier Shelf Expiration Date Model / Serial / Lot Standard Pacemaker-12/21 Implanted:11/23 by Judson Jenkins MD (Quantity not on file) Standard Pacemaker Medtronic [id number] / [id number] / Procedures Procedure Name Priority Date/Time Associated [...] LIPID PANEL Early AM 07/14/2008 3:00 AM BATCH STILL OPERATOR from Last 3 Months or Most Recently Relevant to Health Maintenance Results * US ARTERIAL LOWER EXTREMITY W NHUNG BILATERAL (03/12/2024 1:15 PM CDT) Anatomical Region Laterality Modality LEGS Ultrasound 03/12/2024 12:3 4 PM CDT Narrative 03/12/2024 5:38 PM CDT VASCULAR ULTRASOUND REPORT MICHEAL RENE Accession#: ?? [id number] : ?1955 ??Study Date: ?? 03/12/2024 12:34:00 PM Age: ?69 years ?? Tech: ? JSL Gender: M ?Referring MD: MARIA GUADALUPE SMITH Site: [facility] Vascular Center Study performed: ?Lower extremity (bilateral), [...] Velocity cm/s Phasicity ?? +--------+ + + AUTO INSPECTOR PRX ? 125 ? multiphasic +--------+ + + AUTO INSPECTOR DST ? 148 ? multiphasic +--------+ + + PFA ? 124 ? multiphasic +--------+ + + SFA PRX ? 126 ? multiphasic +--------+ + + SFA MID ? 147 ? multiphasic +--------+ + + SFA DST ? 157 ? multiphasic +--------+ + + RUSLAN PRX ? 60 ? multiphasic +--------+ + + RUSLAN DST ? 80 ? monophasic +--------+ + + UROLOGIC SURGEON DST ? 58 ? monophasic +--------+ + + DPA ? 49 ? monophasic +--------+ + + +--------+ + + LEFT ? Velocity cm/s Phasicity ?? +--------+ + + AUTO INSPECTOR PRX ? 94 ? multiphasic +--------+ + + AUTO INSPECTOR DST ? 171 ? multiphasic +--------+ + + PFA ? 110 ? multiphasic +--------+ + + SFA PRX ? 116 ? multiphasic +--------+ + + SFA MID ? 81 ? multiphasic +--------+ + + SFA DST ? 55 ? multiphasic +--------+ + + RUSLAN PRX ? 64 ? multiphasic +--------+ + + RUSLAN DST ? 55 ? multiphasic +--------+ + + UROLOGIC SURGEON DST ? 37 ? multiphasic +--------+ + [...] ? Index +-----+ +--------+ +-----+ 0.80 ?102 ?UROLOGIC SURGEON ?90 ? 0.71 +-----+ +--------+ +-----+ 0.94 ?120 ?DPA ?110 ? 0.87 +-----+ +--------+ +-----+ 0.63 ? 80 ? Digit 1 ?87 ? 0.69 +-----+ +--------+ +-----+ Paul Bishop MD. Electronically signed on 03/12/2024 5:38:31 PM This study was performed and interpreted by a service accredited by the Intersocietal Accreditation Commission (IAC/Vascular), [email or web address] Report generated by [employer]. ??Final ?? Procedure Note Paul Bishop MD - 03/12/2024 VASCULAR ULTRASOUND REPORT MICHEAL RENE : 1955 Study Date: 03/12/2024 12:34:00 PM Age: 69 years Tech: ALEXIS Gender: M Referring MD: MARIA GUADALUPE SMITH Site: [facility] Vascular Center Study performed: Lower extremity (bilateral), [...] RIGHT Velocity cm/s Phasicity +--------+ + + AUTO INSPECTOR PRX 125 multiphasic +--------+ + + AUTO INSPECTOR DST 148 multiphasic +--------+ + + PFA 124 multiphasic +--------+ + + SFA PRX 126 multiphasic +--------+ + + SFA MID 147 multiphasic +--------+ + + SFA DST 157 multiphasic +--------+ + + RUSLAN PRX 60 multiphasic +--------+ + + RUSLAN DST 80 monophasic +--------+ + + UROLOGIC SURGEON DST 58 monophasic +--------+ + + DPA 49 monophasic +--------+ + + +--------+ + + LEFT Velocity cm/s Phasicity +--------+ + + AUTO INSPECTOR PRX 94 multiphasic +--------+ + + AUTO INSPECTOR DST 171 multiphasic +--------+ + + PFA 110 multiphasic +--------+ + + SFA PRX 116 multiphasic +--------+ + + SFA MID 81 multiphasic +--------+ + + SFA DST 55 multiphasic +--------+ + + RUSLAN PRX 64 multiphasic +--------+ + + RUSLAN DST 55 multiphasic +--------+ + + UROLOGIC SURGEON DST 37 multiphasic +--------+ + + DPA 75 multiphasic +--------+ + + Criteria: Stenosis V. Ratio Mild <50% <2.0 Moderate 50-74% > or = 2.0 Severe 75-99% > or = 4.0 Occluded 100% no detectable flow Pressures +-----+ +--------+ +-----+ RIGHT (mmHg) LEFT (mmHg) +-----+ +--------+ +-----+ Index 124 Brachial 127 Index +-----+ +--------+ +-----+ 0.80 102 UROLOGIC SURGEON 90 0.71 +-----+ +--------+ +-----+ 0.94 120 DPA 110 0.87 +-----+ +--------+ +-----+ 0.63 80 Digit 1 87 0.69 +-----+ +--------+ +-----+ Paul Bishop MD. Electronically signed on 03/12/2024 5:38:31 PM This study was performed and interpreted by a service accredited by theIntersocietal Accreditation Commission (IAC/Vascular),[email or web address] Report generated by [employer]. Final Maria Guadalupe Smith MD US * (ABNORMAL) CBC (02/03/2024 10:42 AM CDT) Only the most recent of2 resultswithin the time period is included. WHITE BLOOD COUNT 5.9 4.5 - 11.0 thou/cu mm 02/03/2024 11:20 AM CDT [facility] RED BLOOD COUNT 3.57(L) 4.30 - 5.90 mil/cu mm 02/03/2024 11:20 AM CDT [facility] HEMOGLOBIN 9.5(L) 13.5 - 17.5 g/dL 02/03/2024 11:20 AM CDT [facility] LAB[facility] HEMATOCRIT 30.9(L) 37.0 - 53.0 % 02/03/2024 11:20 AM CDT [facility] MCV 87 80 - 100 fL 02/03/2024 11:20 AM CDT [facility] MCH 26.6 26.0 - 34.0 pg 02/03/2024 11:20 AM CDT [facility] MCHC 30.7(L) 32.0 - 36.0 g/dL 02/03/2024 11:20 AM CDT [facility] RDW 13.5 11.5 - 15.5 % 02/03/2024 11:20 AM CDT [facility] PLATELET COUNT 211 140 - 440 thou/cu mm 02/03/2024 11:20 AM CDT [facility] MPV 8.3 6.5 - 11.0 fL 02/03/2024 11:20 AM CDT [facility] NRBC 0.0 % 02/03/2024 11:20 AM CDT [facility] ABS NRBC 0.0 thou /cu mm 02/03/2024 11:20 AM CDT [facility] Blood BLOOD SPECIMEN / Unknown Venipuncture / Unknown 02/03/2024 10:42 AM CDT 02/03/2024 10:[address] [facility] LABORATORY - 02/03/2024 11:20 AM CDT Call if Hemoglobin less than 10. Dary Carlos MD HEMATOLOGY [facility] [address] [place] [address], * (ABNORMAL) Basic Metabolic Panel (02/03/2024 10:42 AM CDT) Only the most recent of2 resultswithin the time period is included. SODIUM 139 136 - 145 mmol/L 02/03/2024 11:35 AM T [facility] POTASSIUM 4.7 3.5 - 5.1 mmol/L 02/03/2024 11:[address] [facility] CHLORIDE 107 98 - 107 mmol/L 02/03/2024 11:[address] [facility] CO2,TOTAL 26 22 - 29 mmol/L 02/03/2024 11:[address] [facility] ANION GAP 6 5 - 18 02/03/2024 11:35 AM T [facility] GLUCOSE 139(H) 70 - 99 mg/dL 02/03/2024 11:[address] [facility] CALCIUM 8.3(L) 8.8 - 10.2 mg/dL 02/03/2024 11:[address] [facility] BUN 14 8 - 23 mg/dL 02/03/2024 11:[address] [facility] CREATININE 0.42(L) 0.70 - 1.20 mg/dL 02/03/2024 11:[address] [facility] BUN/CREAT RATIO 33(H) 10 - 20 11:[address] [facility] eGFR >90 >90 mL/min/1.7 3m2 02/03/2024 11:[address] [facility] Comment:As of 2021, eG FR is calculated by the CKD-EPI creatinine equation without race adjustment. ??eGFR can be influenced by muscle mass, exercise, and diet. ??The reported eGFR is an estimation only and is only applicable if the renal function is stable. Blood BLOOD SPECIMEN / Unknown Venipuncture / Unknown 02/03/2024 10:42 AM CDT 02/03/2024 10:56 AM T Dary Carlos MD CHEMISTRY [facility] [address] [place] [address], * SCAN-CARDIAC STRIP (02/03/2024 10:26 AM CDT) [...] Securement/dressing: Biopatch applied, dressing applied. ??Comment: Vessel Legal Billing Analyst Additional supplies used to locate vessel: no Needle Catheter size: 20 G. ??Comment:. Catheter length: 4.5 cm. ??Comment: Events: no complications. Enrico Perez MD ANESTHESIA PX N OTE ORDERABLES * (ABNORMAL) ACTIVATED CLOTTING TIME [id number] ACT (02/02/2024 1:59 PM CDT) [facility] ACTIVATED CLOTTING TIME, POCT 308(H) 74 - 125 sec 02/02/2024 3:[address] [facility] Blood BLOOD SPECIMEN / Unknown 02/02/2024 1:59 PM CDT 02/02/2024 3:45 PM CDT Maria Guadalupe Smith MD HEMATOLOGY [facility] [address] [place] [address], * HCHG TUBE PR1, HCHG STYLET PR1, [...] PM CDT Maria Guadalupe Smith MD LABORATORY [facility]AL LABORATORY [address] [place] [address], * RBC W/O TYPE & SCREEN (02/02/2024 10:27 AM CDT) QUANTITY 4 02/02/2024 10:27 AM CDT [facility] Blood BLOOD SPECIMEN / Unknown 02/02/2024 10:22 AM CDT Jono Malone NP BLOOD BANK [facility]-C[facility]TRAL LAB BLOOD BANK [address] [place] [address], * DONOR ANTIGEN (02/02/2024 10:22 AM CDT) QUANTITY 4 [facility] LAB-CENTRAL LAB BLOOD BANK DONOR ANTIGEN TYPE Donor Antigen Type [facility] LAB BLOOD BANK Jono Malone NP BLOOD BANK Performing Organization Address [facility]/ZIP Co de Phone Number [facility] [employer]-CENTRAL LAB BLOOD BANK [address] [place] [address], [place] [phone] * RED BLOOD CELLS EA UNIT (02/02/2024 10:22 AM CDT) Only the most recent of4 resultswithin the time period is included. Pathologist [facility] [employer]ATCH Compatible Compatible [facility]-CENTRAL LAB BLOOD BANK PRODUCT BLOOD TYPE A Rh Positive [facility] LAB BLOOD BANK PRODUCT ID NUMBER [id number] [facility] [employer]-CENTRAL LAB BLOOD BANK PRODUCT STATUS /Relea sed [facility]TRAL LAB BLOOD BANK PRODUCT DESCRIPTION RBC -1 LR [facility]AL LAB BLOOD BANK PRODUCT CODE [id number] [facility] [employer] SystemsCENTRAL LAB BLOOD BANK Jono Malone NP BLOOD BANK Performing Organization Address [facility] Co de Phone Number [facility] [employer] SystemsCENTRAL LAB BLOOD BANK [address] [place] [address], [place] [phone] * SCAN-CARDIAC STRIP (02/02/2024 12:00 AM CDT) Narrative 02/02/2024 12:00 AM CDT Ordered by an unspecified provider. Other Clinical Staff OTHER * (ABNORMAL) TYPE & SCREEN (02/01/2024 9:14 AM CDT) Pathologist [facility] ABORH A Rh Positive 02/01/2024 1:43 PM CDT [facility] BLOOD BANK Comment:Comment: Performed b y [facility], [address] [place] [address], [place] [address] ANTIBODY SCREEN Positive(A) Negative 02/01/2024 1:43 PM CDT [facility] BLOOD BANK Comment:Comment: Performed b y [facility], [address] [place] [address], [place] [address] SPECIMEN EXPIRATION DATE/TIME 02/04/24 23:59 02/01/2024 1:43 PM CDT [facility] BLOOD BANK Blood BLOOD SPECIMEN / Unknown Venipuncture / Unknown 02/01/2024 9:14 AM CDT 02/01/2024 9:21 AM CDT Maria Guadalupe Smith MD BLOOD BANK [facility] BLOOD BANK [address] [place] [address] * (ABNORMAL) ANTIBODY IDENTIFICATION LAB USE ONLY (02/01/2024 9:14 AM CDT) Pathologist [facility] ANTIBODY IDENTIFICATION Anti-Duff y a(A) 02/01/2024 2:49 PM CDT [facility] BLOOD BANK Comment:Comment: Performed b y Central Laboratory - [facility], [address], [place] [address] Blood BLOOD SPECIMEN / Unknown Venipuncture / Unknown 02/01/2024 9:14 AM CDT 02/01/2024 9:21 AM CDT Narrative [facility] BLOOD BANK - 02/01/2024 2:49 [...] laboratory Maria Guadalupe Smith MD BLOOD BANK [facility] BLOOD BANK [address] [place] [address] * ANTIBODY IDENTIFICATION EACH PANEL (02/01/2024 9:14 AM CDT) Pathologist [facility] QUANTITY 1 [facility] BLOOD BANK PANEL JOSÉ MIGUEL ID Panel Antibody ID [facility] BLOOD BANK Maria Guadalupe Smith MD BLOOD BANK [facility] BLOOD BANK [address] [place] [address] * SCAN CORRESP-LABORATORY RESULTS (02/01/2024 9:09 AM CDT) Narrative 02/01/2024 9:09 AM CDT Ordered by an unspecified provider. Other Clinical Staff OTHER * Lipid Panel - In AM (07/14/2008 3:00 AM BATCH STILL OPERATOR) [facility] CHOLESTEROL,TOTAL 141 110 - 199 mg/dL [facility] TRIGLYCERIDES 41 40 - 149 mg/dL [facility] HDL CHOLESTEROL 45 >40 mg/dL [facility] CHOL/HDL RATIO 3.13 <4.51 [facility] LDL CHOLESTEROL 88 <131 mg/dL [facility] PATIENT STATUS Fasting [facility] Blood specimen (specimen) BLOOD SPECIMEN / Unknown 07/14/2008 3:00 AM BATCH STILL OPERATOR 07/14/2008 1:52 AM BATCH STILL OPERATOR Phyllis Sánchez MD CHEMISTRY [facility] LABORATORY INTERNAL ZIP [address] [place] [id number] from Last 3 Months or Most Recently [...] 12 months since positive culture): resides in acute/alf care, receiving hemodialysis, has chronic open wounds/skin [...] 6:44 AM 03/14/2016 5:37 PM Care Teams Cut To Length Operator Relationship Specialty Start Date End Date Alex Mata MD [address] [place] [address] PCP - General Family Practice 02/04/20 Ana Mayers [address] [place] [address] Nurse Practitioner 03/02/11 Jak Keys NP [facility] [address] [place] [address] Nurse Practitioner Nurse Practitioner - Adult 10/30/23
== END 2024-04-22 08:05 | disposition home or self-care (01) ==
LOC: WOUND 08:04
PROVIDERS: PCP Family Medicine; Visit Provider Nurse Practitioner Family
DX: M86.671 Other chronic osteomyelitis, right ankle and foot (principal); L89.614 Pressure ulcer of right heel, stage 4; L89.894 Pressure ulcer of other site, stage 4; L89.314 Pressure ulcer of right buttock, stage 4; L89.893 Pressure ulcer of other site, stage 3; S14.155S Other incomplete lesion at C5 level of cervical spinal cord, sequela; Z99.3 Dependence on wheelchair
CPT/HCPCS: 11042; 11045; 97597; G0277

== ENCOUNTER 2024-04-29 10:25 | Outpatient (CLI) | payer OTHER, SELFPAY ==
--- OUTSIDE RECORDS SUMMARY | 2024-04-29 10:29 | XMS_ITS | Data Portability ---
Author Organization [facility], [facility] Address [address] [place] [address] Care Team Providers Care Plater [employer] Pan[employer] Name Role Phone CHETNA MERAZ Primary Care Provider RAHUL OCONNOR Subscription Agent Assessment Encounter Date Assessment Date Assessment LastModified [...] None recorded. Lab culture, urine 2020 021 [facility], [address], [place], [address], 07:39:35 urinalysis, dipstick 2020 021 marie Not available 10/20/202 1 11:34:22 Referral None recorded. Procedures None recorded. Surgeries None recorded. Imaging US, kidney 2021 022 [facility], [address] [place], [address], 2 09:00:29 Medication Orders oxybutynin chloride ER 15 mg tablet,exte nded release 24 hr 2021 022 [id number], [address], [place], [place], [id number], 2 12:53:22 nitrofurant oin macrocrysta l 50 mg capsule [address] [facility]56290, [address], [place], [place], [id number], 4 08:10:56 nitrofurant oin macrocrysta l 50 mg capsule [address] [facility]45077, [address], [place], [place], [id number], 4 08:10:56 oxybutynin chloride ER 15 mg tablet,exte nded release 24 hr 2022 023 [facility] #17263, [address] , [place], [place], [id number], 3 12:15:06 methenamine hippurate 1 gram tablet [address] [facility]09909, [address] , [place], [place], [id number], 4 23:05:30 methenamine hippurate 1 gram tablet 2023 024 [facility] #45930, [address] , [place], [place], [id number], 4 23:05:37 oxybutynin chloride ER 15 mg tablet,exte nded release 24 hr 2023 024 [facility], [address] , [place], [id number], 4 23:04:50 Patient TargetsNo targets recorded. Patient InstructionsNo instructions recorded. Reason for Referral None Reported. Results Created Date Observation Date Name Description Value Unit Range Abnormal Flag Note LastModifiedBy Organization Detail LastModifiedTime 05/12/2021 urina lysis , dipst ick Color-Status Yellow Not Available [facility] [address], [place], [address], 05/12/2021 11:33:40 05/12/2021 urina lysis , dipst ick Clarity-Stat us Cloudy Not Available [facility] [address], [place], [address], 05/12/2021 11:33:40 05/12/2021 urina lysis , dipst ick pH-Status 7.5 Not Available [facility] [address], [place], [address], 05/12/2021 11:33:40 05/12/2021 urina lysis , dipst ick Nitrates-Sta tus positi ve Not Available [facility] [address], [place], [address], 05/12/2021 11:33:40 05/12/2021 urina lysis , dipst ick Blood-Status Small Not Available [facility] [address], [place], [address], 05/12/2021 11:33:40 05/12/2021 urina lysis , dipst ick Leuko-Status Large Not Available [facility] [address], [place], [address], 05/12/2021 11:33:40 05/06/20 21 05/06/2021 URINE CULTU [...] y Type Sensi tivit y [place]en sis [place] [facility] [place] 2 ----- ----- ----- ----- ----- [...] s Desk Ref[facility]. S= Susce ptibl e;I= Inter media te;R= Resis tant; ESBL= Resis tance due to confi rmed ESBL Not Available [facility] [address], [place], [address], 05/08/2021 07:39:35 10/07/19 22 10/05/2021 US, kidne y No observ ation record ed. [address] Radiology Department [address] [place], [address], 09/28/2022 13:47:50 Result Notes None recorded. Procedures Surgical History Date Name Laterality Status Provider Name and Address Organization Details Recorded Time 11/01/19 24 COMPLEX VISIT completed Jono Pagan MD [address], [place], [address], [facility] 11/01/2023 08:09:54 excision of pressure injury completed Jono Pagan MD [address], [place], [address], [facility] 09/28/2022 11:00:08 maintenance procedure for cardiac pacemaker system completed Veronika Begum [facility] 11/01/2023 11:05:10 Imaging Results Imaging Date Name Status LastModified by Organiz ation Details LastModified Time 10/05/2021 US, kidney completed [address] Radiology Department [address] [place], [address], 09/28/2022 13:47:50 Procedure Notes None recorded. Medical Equipment None Reported. Allergies Allergen ID Allergen Name Allergen Category Reaction Reaction Severity Criticality Documentation Date Start Date Code Code System Note Provider Name and Address Organization Details Recorded Time 698683 Medicinal product containin g cephalosp pao and acting as antibacte rial agent (product) medicatio n Not available Not available Not available 09/27/2021 08843 9009 SNOMED Nasreen hwang [facility] 12:43:20 684381 shellfish derived food,medi cation Not available Not available Not available 11/01/2023 [place] [facility] 11:03:08 Medications Name [...] Updated DateTime 09/28/2022 182.88 cm 19.4 kg/m2 18182.71 g Veronika Begum [facility] 09/28/2022 10:55:01 Date Recorded Body height Body mass index (BMI) Body weight Provider Name and Address Organization Details Last Updated DateTime 04/28/2023 182.88 cm 19.4 kg/m2 66763.71 g Mindy Malone [facility] 04/28/2023 11:39:29 Date Recorded Body height Body mass index (BMI) Body weight Provider Name and Address Organization Details Last Updated DateTime 10/12/2023 182.88 cm 19.4 kg/m2 74762.71 g Veronika Begum [facility] 10/12/2023 12:26:19 Date Recorded Body height Body mass index (BMI) Body weight Provider Name and Address Organization Details Last Updated DateTime 11/01/2023 182.88 cm 18.7 kg/m2 07543.75 g Veronika Begum [facility] 11/01/2023 11:02:57 Date Recorded Body height Body mass index (BMI) Body weight Provider Name and Address Organization Details Last Updated DateTime 05/06/2021 182.88 cm 19.4 kg/m2 29149.71 g Chelsea Medrano [facility] 05/06/2021 12:47:45 Date Recorded Body height Body mass index (BMI) Body weight Provider Name and Address Organization Details Last Updated DateTime 09/27/2021 182.88 cm 19.4 kg/m2 77312.71 g Nasreen Salas [facility] 09/27/2021 12:43:07 Social History Question Answer Notes LastModified by Organizat ion Details LastModified Time Tobacco Smoking Status [facility] [place] [facility] 14:55:09 What Is Your Level Of [...] Hospital 04/28/2023 11:39:35 Pneumococcal conjugate PCV20, polysaccharide RGQ200 conjugate, adjuvant, PF 12/01/2022 completed Mindy hwang [facility] 04/28/2023 11:39:35 influenza, unspecified formulation 05/24/2006 maki hwang [facility] 04/28/2023 11:39:35 Tdap 09/01/2006 [facility] 04/28/2023 11:39:35 Tdap 12/26/2008 [facility] 04/28/2023 11:39:35 zoster live 01/29/2015 completed Mindy hwang, [facility] 04/28/2023 11:39:35 Influenza, split virus, trivalent, PF 03/25/2011 completed Mindy Malone null, [facility] 04/28/2023 11:39:35 Influenza, split virus, trivalent, PF 05/24/2012 completed Mindy hwang, [facility] 04/28/2023 11:39:35 Td (adult), 2 Lf tetanus toxoid, preservative free, adsorbed 03/21/1997 completed Mindy hwang, [facility] 04/28/2023 11:39:35 Hep B, adult 09/01/2006 completed Mindy hwang, [facility] 04/28/2023 11:39:35 Hep B, adult 11/19/2004 completed Mindy hwang, [facility] 04/28/2023 11:39:35 Hep B, adult 03/30/2007 completed Mindy hwang, [facility] 04/28/2023 11:39:35 Hep A, adult 09/30/2002 completed Mindy hwang, [facility] 04/28/2023 11:39:35 Hep A, adult 11/19/2004 completed Mindy hwang, [facility] 04/28/2023 11:39:35 Hep A, adult 05/01/2003 completed Mindy hwang [facility] 04/28/2023 11:39:35 typhoid, ViCPs 09/01/2006 completed Mindy hwang, [facility] 04/28/2023 11:39:35 typhoid, ViCPs 09/30/2002 completed Mindy hwang, [facility] 04/28/2023 11:39:35 Past Encounters Encounter ID Performer Location Encounter Start Date Encounter Closed Date Diagnosis/Indication Diagnosis SNOMED-CT Code Diagnosis ICD10 Code [id number] Jono Pagan MD [facility] [address] [place] [address] 02/18/2021 14:23:42 02/19/2021 12:13:21 Neurogenic urinary bladder 434598011 N31.9 Spinal cord injury 19412 004 G95.89 Spasm of u rinary bladder 549848764 N32.89 Recurrent urinary tract infection 844084031 N39.0 Acute urin estefany tract infection 731403689 N39.0 [id number] Marlene Greer [facility] [address] [place] [address] 05/06/2021 11:58:15 05/11/2021 03:52:30 Abnormal urine 469524345 R82.90 [id number] Jono Pagan MD [facility] [address] [place] [address] 09/27/2021 12:37:54 10/27/2021 09:29:43 Neurogenic urinary bladder 903018977 N31.9 Spinal cord injury 10938 004 G95.89 Spasm of u rinary bladder 692449218 N32.89 Recurrent urinary tract infection 066137893 N39.0 [id number] Jono Pagan MD [facility] [address] [place] [address] 09/28/2022 10:53:21 10/01/2022 11:26:52 Neurogenic urinary bladder 254548481 N31.9 Spinal cord injury 77583 004 G95.89 Spasm of u rinary bladder 118333246 N32.89 Recurrent urinary tract infection 727303639 N39.0 [id number] Jono Pagan MD [facility] [address] [place] [address] 04/28/2023 11:30:11 05/04/2023 11:13:13 Neurogenic urinary bladder 118818079 N31.9 Spinal cord injury 62763 004 G95.89 Spasm of u rinary bladder 795923546 N32.89 Recurrent urinary tract infection 068039795 N39.0 [id number] Jono Pagan MD [facility] [address] [place] [address] 11/01/2023 10:52:02 11/02/2023 14:01:41 Neurogenic urinary bladder 097972901 N31.9 Spinal cord injury 53270 004 G95.89 Spasm of u rinary bladder 648120040 N32.89 Recurrent urinary tract infection 628478013 N39.0 Health Concerns Section Related Observation LastModified by Organization Detai ls LastModified Time None Recorded Concern Status LastModified by Organization Details LastModified Time None Recorded Advance Directives Directive None Recorded Payers Encounter Date Sequence Insurance Name Policy Number Policy Quinones Covered Member ID Quinones Member ID Guarantor Name 05/06/2021 [facility] [employer] INS[employer] [facility] [id number] [employer] Khanh C [place] 09/27/2021 1 [facility] (MEDICARE REPLACEMENT/AD VANTAGE - PPO) [id number] Khanh C [place] [id number] Khanh C [place] 09/28/2022 [facility] [employer] [id number] [employer] Khanh C [place] 04/28/2023 1 [facility] (MEDICARE REPLACEMENT/AD VANTAGE - PPO) [id number] Khanh C [place] [id number] Khanh C [place] 11/01/2023 [facility] [employer] INS[employer] [facility] [id number] [employer] Khanh Rene Notes Date Note Type Note Provider Name and Address Organization Details Recorded Time 05/06/2021 text/html HPI Notes: Pt he re for UA/UC due to low back ache, cloudy urine with sediment present X 1.5 weeks. pt given cipro 500mg BID pending culture. 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 Jono Pagan MD [address], [place], [address], [facility] 09/27/2021 13:13:14 [...] tract abnormality. Jono Pagan MD [address], [place], [address], [facility] 09/28/2022 13:48:55 [...] the summer. Jono Pagan MD [address], [place], [address], [facility] 04/28/2023 12:27:52 11/01/2023 text/html HPI Notes: [...] when traveling. Jono Pagan MD [address], [place], [address], [facility] 11/01/2023 23:05:58
--- OUTSIDE RECORDS SUMMARY | 2024-04-29 10:29 | XMS_ITS | Clinical Summary ---
Author Organization [employer] [facility] Address [place], [place] [address] Care Team Providers Care Railroad Brake Operator Name Role Phone Goyoluis aAna Unavailable Alex Mata MD Primary Care Provider + Jak Keys ASSISTANT PROFESSOR OF BIOLOGY Unavailable [phone] Allergies Active Allergy Reactions Criticality Noted Date Comments Blood-Group Specific Substance Other - Describe In Comment Field 04/19/2021 Patient has Sims a (Fya) antibody. Blood products may be delayed. Draw patient 24 hours prior to transfusion. For Loot! testing, draw one red top and two [...] (11/17/2023): 09/20/23 bilateral lower extremity arterial ultrasound (North [...] Description 03/12/2024 2:00 PM CDT Office Visit [facility] [address] [place] [address] Maria Guadalupe Smith MD CV Vascular Est (4 week follow up; PAD with non-healing RLE wounds. U/S scheduled prior) 03/12/2024 12:24 PM CDT - 03/12/2024 11:59 PM CDT Hospital Encounter [facility] [address] [place] [address] Maria Guadalupe Smith MD Leistner, Joseph S, R.T. (ARRT) PAD (peripheral artery disease) (HC) 03/12/2024 Travel 02/13/2024 Refill [facility] [address] [address] Maria Guadalupe Smith MD Refill Request 02/02/2024 1:04 PM CDT Anesthesia Event [facility] [address] [place] [address] Enrico Perez MD Beulke, Steven William, CRNA 02/02/2024 10:01 AM CDT - 02/03/2024 1:05 PM CDT Hospital Encounter [facility] [address] [place] [address] Maria Guadalupe Smith MD Taylor, Phillip Norman, MD Erickson, Andrew Richard, CRNA Discharge Disposition: Home Self Care 02/01/2024 8:53 AM CDT - 02/01/2024 11:59 PM CDT Hospital Encounter [facility] [address] [place] [address] PAD (peripheral artery disease) (HC) 02/01/2024 8:15 AM CDT Office Visit [facility] [address] [place] [address] Rqauel Multani MD [facility] (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 loss [...] Contact Info) Description 05/03/2024 Cardiac Device Check [facility] [phone] Health Maintenance Due Date Last Done Comments [...] 12/26/2008, 09/01/2006 Medical Devices Implanted Type Area Scaffolder Device Identifier Shelf Expiration Date Model / Serial / Lot Standard Pacemaker-12/21 Implanted:11/23 by Judson Jenkins MD (Quantity not on file) Standard Pacemaker Medtronic [id number] / [id number] / Procedures Procedure Name Priority Date/Time Associated [...] LIPID PANEL Early AM 07/14/2008 3:[address] MAGISTRATE from Last 3 Months or Most Recently Relevant to Health Maintenance Results * US ARTERIAL LOWER EXTREMITY W NHUNG BILATERAL (03/12/2024 1:15 PM CDT) Anatomical Region Laterality Modality LEGS Ultrasound 03/12/2024 12:3 4 PM CDT Narrative 03/12/2024 5:38 PM CDT VASCULAR ULTRASOUND REPORT MICHEAL RENE Accession#: ?? [id number] : ?1955 ??Study Date: ?? 03/12/2024 12:34:00 PM Age: ?69 years ?? Tech: ? JSL Gender: M ?Referring MD: MARIA GUADALUPE SMITH Site: [facility] Study performed: ?Lower extremity [...] Velocity cm/s Phasicity ?? +--------+ + + DIESEL ENGINE II PIPE FITTER PRX ? 125 ? multiphasic +--------+ + + DIESEL ENGINE II PIPE FITTER DST ? 148 ? multiphasic +--------+ + + PFA ? 124 ? multiphasic +--------+ + + SFA PRX ? 126 ? multiphasic +--------+ + + SFA MID ? 147 ? multiphasic +--------+ + + SFA DST ? 157 ? multiphasic +--------+ + + RUSLAN PRX ? 60 ? multiphasic +--------+ + + RUSLAN DST ? 80 ? monophasic +--------+ + + SEAFOOD TECHNOLOGY SPECIALIST DST ? 58 ? monophasic +--------+ + + DPA ? 49 ? monophasic +--------+ + + +--------+ + + LEFT ? Velocity cm/s Phasicity ?? +--------+ + + DIESEL ENGINE II PIPE FITTER PRX ? 94 ? multiphasic +--------+ + + DIESEL ENGINE II PIPE FITTER DST ? 171 ? multiphasic +--------+ + + PFA ? 110 ? multiphasic +--------+ + + SFA PRX ? 116 ? multiphasic +--------+ + + SFA MID ? 81 ? multiphasic +--------+ + + SFA DST ? 55 ? multiphasic +--------+ + + RUSLAN PRX ? 64 ? multiphasic +--------+ + + RUSLAN DST ? 55 ? multiphasic +--------+ + + SEAFOOD TECHNOLOGY SPECIALIST DST ? 37 ? multiphasic +--------+ + [...] ? Index +-----+ +--------+ +-----+ 0.80 ?102 ?SEAFOOD TECHNOLOGY SPECIALIST ?90 ? 0.71 +-----+ +--------+ +-----+ 0.94 ?120 ?DPA ?110 ? 0.87 +-----+ +--------+ +-----+ 0.63 ? 80 ? Digit 1 ?87 ? 0.69 +-----+ +--------+ +-----+ Paul Bishop MD. Electronically signed on 03/12/2024 5:38:31 PM This study was performed and interpreted by a service accredited by the Intersocietal Accreditation Commission (IAC/Vascular), [email or web address] Report generated by [employer]. ??Final ?? Procedure Note Paul Bishop MD [...] RIGHT Velocity cm/s Phasicity +--------+ + + DIESEL ENGINE II PIPE FITTER PRX 125 multiphasic +--------+ + + DIESEL ENGINE II PIPE FITTER DST 148 multiphasic +--------+ + + PFA 124 multiphasic +--------+ + + SFA PRX 126 multiphasic +--------+ + + SFA MID 147 multiphasic +--------+ + + SFA DST 157 multiphasic +--------+ + + RUSLAN PRX 60 multiphasic +--------+ + + RUSLAN DST 80 monophasic +--------+ + + SEAFOOD TECHNOLOGY SPECIALIST DST 58 monophasic +--------+ + + DPA 49 monophasic +--------+ + + +--------+ + + LEFT Velocity cm/s Phasicity +--------+ + + DIESEL ENGINE II PIPE FITTER PRX 94 multiphasic +--------+ + + DIESEL ENGINE II PIPE FITTER DST 171 multiphasic +--------+ + + PFA 110 multiphasic +--------+ + + SFA PRX 116 multiphasic +--------+ + + SFA MID 81 multiphasic +--------+ + + SFA DST 55 multiphasic +--------+ + + RUSLAN PRX 64 multiphasic +--------+ + + URSLAN DST 55 multiphasic +--------+ + + SEAFOOD TECHNOLOGY SPECIALIST DST 37 multiphasic +--------+ + + DPA 75 multiphasic +--------+ + + Criteria: Stenosis V. Ratio Mild <50% <2.0 Moderate 50-74% > or = 2.0 Severe 75-99% > or = 4.0 Occluded 100% no detectable flow Pressures +-----+ +--------+ +-----+ RIGHT (mmHg) LEFT (mmHg) +-----+ +--------+ +-----+ Index 124 Brachial 127 Index +-----+ +--------+ +-----+ 0.80 102 SEAFOOD TECHNOLOGY SPECIALIST 90 0.71 +-----+ +--------+ +-----+ 0.94 120 DPA 110 0.87 +-----+ +--------+ +-----+ 0.63 80 Digit 1 87 0.69 +-----+ +--------+ +-----+ Paul Bishop MD. Electronically signed on 03/12/2024 5:38:31 PM This study was performed and interpreted by a service accredited by theIntersocietal Accreditation Commission (IAC/Vascular),[email or web address] Report generated by [employer]. Final Maria Guadalupe Smith MD US * (ABNORMAL) CBC (02/03/2024 10:42 AM CDT) Only the most recent of2 resultswithin the time period is included. WHITE BLOOD COUNT 5.9 4.5 - 11.0 thou/cu mm 02/03/2024 11:20 AM CDT [facility] RED BLOOD COUNT 3.57(L) 4.30 - 5.90 mil/cu mm 02/03/2024 11:20 AM CDT [facility] HEMOGLOBIN 9.5(L) 13.5 - 17.5 g/dL 02/03/2024 11:20 AM CDT [facility] HEMATOCRIT 30.9(L) 37.0 - 53.0 % 02/03/2024 11:20 AM CDT [facility] MCV 87 80 - 100 fL 02/03/2024 11:20 AM CDT [facility] MCH 26.6 26.0 - 34.0 pg 02/03/2024 11:20 AM CDT [facility] MCHC 30.7(L) 32.0 - 36.0 g/dL 02/03/2024 11:20 AM CDT [facility] RDW 13.5 11.5 - 15.5 % 02/03/2024 11:20 AM CDT [facility] PLATELET COUNT 211 140 - 440 thou/cu mm 02/03/2024 11:20 AM CDT [facility] MPV 8.3 6.5 - 11.0 fL 02/03/2024 11:20 AM CDT [facility] NRBC 0.0 % 02/03/2024 11:20 AM CDT [facility] ABS NRBC 0.0 thou /cu mm 02/03/2024 11:20 AM CDT [facility] Blood BLOOD SPECIMEN / Unknown Venipuncture / Unknown 02/03/2024 10:42 AM CDT 02/03/2024 10:56 AM CDT [facility] - 02/03/2024 11:20 AM CDT Call if Hemoglobin less than 10. Dary Carlos MD HEMATOLOGY [facility] [address] [place] [address], * (ABNORMAL) Basic Metabolic Panel (02/03/2024 10:42 AM CDT) Only the most recent of2 resultswithin the time period is included. SODIUM 139 136 - 145 mmol/L 02/03/2024 11:35 AM T [facility] POTASSIUM 4.7 3.5 - 5.1 mmol/L 02/03/2024 11:35 AM [facility] CHLORIDE 107 98 - 107 mmol/L 02/03/2024 11:35 AM [facility] CO2,TOTAL 26 22 - 29 mmol/L 02/03/2024 11:35 AM [facility] ANION GAP 6 5 - 18 02/03/2024 11:35 AM T [facility] GLUCOSE 139(H) 70 - 99 mg/dL 02/03/2024 11:35 AM [facility] CALCIUM 8.3(L) 8.8 - 10.2 mg/dL 02/03/2024 11:35 AM [facility] BUN 14 8 - 23 mg/dL 02/03/2024 11:35 AM [facility] CREATININE 0.42(L) 0.70 - 1.20 mg/dL 02/03/2024 11:35 AM [facility] BUN/CREAT RATIO 33(H) 10 - 20 11:35 AM [facility] eGFR >90 >90 mL/min/1.7 3m2 02/03/2024 11:35 AM [facility] Comment:As of 2021, [...] 10:56 AM T Dary Carlos MD CHEMISTRY [facility] [address] [place] [address], * SCAN-CARDIAC STRIP (02/03/2024 10:26 AM CDT) [...] Securement/dressing: Biopatch applied, dressing applied. ??Comment: Vessel Contract Lead Additional supplies used to locate vessel: no Needle Catheter size: 20 G. ??Comment:. Catheter length: 4.5 cm. ??Comment: Events: no complications. Enrico Perez MD ANESTHESIA PX N OTE ORDERABLES * (ABNORMAL) ACTIVATED CLOTTING TIME [id number] ACT (02/02/2024 1:59 PM CDT) [facility] ACTIV[facility] CLOTTING [facility], POCT 308(H) 74 - 125 sec 02/02/2024 3:45 PM CDT [facility] Blood BLOOD SPECIMEN / Unknown 02/02/2024 1:59 PM CDT 02/02/2024 3:45 PM CDT Maria Guadalupe Smith MD HEMATOLOGY [facility] [address] [place] [address], * HCHG TUBE PR1, HCHG STYLET PR1, [...] PM CDT Maria Guadalupe Smith MD LABORATORY [facility] [address] [place] [address], * RBC W/O TYPE & SCREEN (02/02/2024 10:27 AM CDT) QUANTITY 4 02/02/2024 10:27 AM CDT [facility] Blood BLOOD SPECIMEN / Unknown 02/02/2024 10:22 AM CDT Jono Malone NP BLOOD BANK [facility]AL LAB BLOOD BANK [address] [place] [address], * DONOR ANTIGEN (02/02/2024 10:22 AM CDT) QUANTITY 4 [facility] BLOOD BANK DONOR ANTIGEN TYPE Donor Antigen Type [facility] BLOOD BANK Jono Malone NP BLOOD BANK Performing Organization Address [facility]/ZIP Co de Phone Number [facility] B[facility] BANK [address] [place] [address], [place] [phone] * RED BLOOD CELLS EA UNIT (02/02/2024 10:22 AM CDT) Only the most recent of4 resultswithin the time period is included. Pathologist [facility] CROSSMATCH Compatible Compatible [facility] BLOOD BANK PRODUCT BLOOD TYPE A Rh Positive [facility] BLOOD BANK PRODUCT ID NUMBER [id number] [facility] BLO[facility] PRODUCT STATUS /Relea sed [facility] LAB BLOOD BANK PRODUCT DESCRIPTION RBC -1 LR [facility] LAB BLOOD BANK PRODUCT CODE [id number] [facility] BLOOD BANK Jono Malone NP BLOOD BANK Performing Organization Address [facility] Co de Phone Number [facility] BLOOD BANK [address] [place] [address], [place] [phone] * SCAN-CARDIAC STRIP (02/02/2024 12:00 AM CDT) Narrative 02/02/2024 12:00 AM CDT Ordered by an unspecified provider. Other Clinical Staff OTHER * (ABNORMAL) TYPE & SCREEN (02/01/2024 9:14 AM CDT) Pathologist [facility] ABORH A Rh Positive 02/01/2024 1:43 PM CDT [facility] BLOOD BANK Comment:Comment: Performed b y [facility], [address] [place] [address] [address], [place] [address] ANTIBODY SCREEN Positive(A) Negative 02/01/2024 1:43 PM CDT [facility] BLOOD BANK Comment:Comment: Performed b y [facility], [address] [place] [address] [address] SPECIMEN EXPIRATION DATE/TIME 02/04/24 23:59 02/01/2024 1:43 PM CDT [facility] BLOOD BANK Blood BLOOD SPECIMEN / Unknown Venipuncture / Unknown 02/01/2024 9:14 AM CDT 02/01/2024 9:21 AM CDT Maria Guadalupe Smith MD BLOOD BANK [facility] BLOOD BANK [address] [place] [address] * (ABNORMAL) ANTIBODY IDENTIFICATION LAB USE ONLY (02/01/2024 9:14 AM CDT) Pathologist [facility] ANTIBODY IDENTIFICATION Anti-Duff y a(A) 02/01/2024 2:49 PM CDT [facility] BLOOD BANK Comment:Comment: Performed b y [facility], [address], [place] [address] Blood BLOOD SPECIMEN / Unknown Venipuncture / Unknown 02/01/2024 9:14 AM CDT 02/01/2024 9:21 AM CDT Narrative [facility] BLOOD BANK - 02/01/2024 [...] Maria Guadalupe Smith MD BLOOD BANK [facility] BLOOD BANK [address] [place] [address] * ANTIBODY IDENTIFICATION EACH PANEL (02/01/2024 9:14 AM CDT) Pathologist [facility] QUANTITY 1 [facility] BLOOD BANK PANEL JOSÉ MIGUEL ID Panel Antibody ID [facility] BLOOD BANK Maria Guadalupe Smith MD BLOOD BANK [facility] BLOOD BANK [address] [place] [address] * SCAN CORRESP-LABORATORY RESULTS (02/01/2024 9:09 AM CDT) Narrative 02/01/2024 9:09 AM CDT Ordered by an unspecified provider. Other Clinical Staff OTHER * Lipid Panel - In AM (07/14/2008 3:[address] MAGISTRATE) [facility] CHOLESTEROL,TOTAL 141 110 - 199 mg/dL [facility] TRIGLYCERIDES 41 40 - 149 mg/dL [facility] HDL CHOLESTEROL 45 >40 mg/dL [facility] CHOL/HDL RATIO 3.13 <4.51 [facility] LDL CHOLESTEROL 88 <131 mg/dL [facility] PATIENT STATUS Fasting [facility] Blood specimen (specimen) BLOOD SPECIMEN / Unknown 07/14/2008 3:[address] MAGISTRATE 07/14/2008 1:[address] MAGISTRATE Phyllis Sánchez MD CHEMISTRY [facility] INTERNAL ZIP [address] [place] [id number] from Last 3 Months or Most Recently [...] 6:44 AM 03/14/2016 5:37 PM Care Teams Railroad Brake Operator Relationship Specialty Start Date End Date Alex Mata MD [address] [place] [address] PCP - General Family Practice 02/04/20 Ana Mayers [address] [place] [address] Nurse Practitioner 03/02/11 Jak Keys NP [facility] [address] [place] [address] Nurse Practitioner Nurse Practitioner - Adult 10/30/23
== END 2024-04-29 10:26 | disposition home or self-care (01) ==
LOC: WOUND 10:25
PROVIDERS: PCP Family Medicine; Visit Provider Nurse Practitioner Family
DX: M86.671 Other chronic osteomyelitis, right ankle and foot (principal); L89.614 Pressure ulcer of right heel, stage 4; L89.893 Pressure ulcer of other site, stage 3; L89.892 Pressure ulcer of other site, stage 2; L89.894 Pressure ulcer of other site, stage 4; L89.314 Pressure ulcer of right buttock, stage 4; L30.4 Erythema intertrigo; S14.155S Other incomplete lesion at C5 level of cervical spinal cord, sequela; Z99.3 Dependence on wheelchair
CPT/HCPCS: 11042; 11045

== ENCOUNTER 2024-04-30 10:34 | Outpatient (CLI) | payer OTHER, SELFPAY ==
[2024-04-30 11:29] LABS: Creatinine* 0.7 mg/dL (0.5-1.5); Estimated Glomerular Filt Rate 99 ml/min
--- OUTSIDE RECORDS SUMMARY | 2024-04-30 11:34 | XMS_ITS | Clinical Summary ---
Author Organization [facility] Address [place], [place] [address] Care Team Providers Care Hvac Technician Name Role Phone Goyoluis aAna Unavailable Alex Mata MD Primary Care Provider + Jak Keys CREPE BOX TENDER Unavailable [phone] Allergies Active Allergy Reactions Criticality Noted Date Comments Blood-Group Specific Substance Other - Describe In Comment Field 04/19/2021 Patient has Sims a (Fya) antibody. Blood products may be delayed. Draw patient 24 hours prior to transfusion. For [facility] testing, draw one red top and two [...] (11/17/2023): 09/20/23 bilateral lower extremity arterial ultrasound ([facility]) S/P flap graft 03/06/2020 Neurogenic orthostatic hypotension [...] 2:00 PM CDT Office Visit [facility] [address] [place] [address] Maria Guadalupe Smith MD CV Vascular Est (4 week follow up; PAD with non-healing RLE wounds. U/S scheduled prior) 03/12/2024 12:24 PM CDT - 03/12/2024 11:59 PM CDT Hospital Encounter [facility] [address] [place] [address] Maria Guadalupe Smith MD Leistner, Joseph S, R.T. (ARRT) PAD (peripheral artery disease) (HC) 03/12/2024 Travel 02/13/2024 Refill [facility] [address] [address] Maria Guadalupe Smith MD Refill Request 02/02/2024 1:04 PM CDT Anesthesia Event [facility] [address] [place] [address] Enrico Perez MD Beulke, Steven William, CRNA 02/02/2024 10:01 AM CDT - 02/03/2024 1:05 PM CDT Hospital Encounter [facility] [address] [place] [address] Maria Guadalupe Smith MD Taylor, Phillip Norman, MD Erickson, Andrew Richard, CRNA Discharge Disposition: Home Self Care 02/01/2024 8:53 AM CDT - 02/01/2024 11:59 PM CDT Hospital Encounter [facility] [address] [place] [address] PAD (peripheral artery disease) (HC) 02/01/2024 8:15 AM CDT Office Visit [facility] [address] [place] [address] [facility] (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 loss [...] Device Check [facility] [phone] Health Maintenance Due Date Last Done Comments [...] 12/26/2008, 09/01/2006 Medical Devices Implanted Type Area Clinical Research Director Device Identifier Shelf Expiration Date Model / Serial / Lot Standard Pacemaker-12/21 Implanted:11/23 by Judson Jenkins MD (Quantity not on file) Standard Pacemaker Medtronic [id number] / [id number] / Procedures Procedure Name Priority Date/Time Associated [...] LIPID PANEL Early AM 07/14/2008 3:00 AM PRECISION AGRONOMIST from Last 3 Months or Most Recently Relevant to Health Maintenance Results * US ARTERIAL LOWER EXTREMITY W NHUNG BILATERAL (03/12/2024 1:15 PM CDT) Anatomical Region Laterality Modality LEGS Ultrasound 03/12/2024 12:3 4 PM CDT Narrative 03/12/2024 5:38 PM CDT VASCULAR ULTRASOUND REPORT MICHEAL RENE Accession#: ?? [id number] : ?1955 ??Study Date: ?? 03/12/2024 12:34:00 PM Age: ?69 years ?? Tech: ? JSL Gender: M ?Referring MD: MARIA GUADALUPE SMITH Site: [facility] Vascular Center Study performed: ?Lower extremity (bilateral), [...] Velocity cm/s Phasicity ?? +--------+ + + FIREWORKS ASSEMBLY SUPERVISOR PRX ? 125 ? multiphasic +--------+ + + FIREWORKS ASSEMBLY SUPERVISOR DST ? 148 ? multiphasic +--------+ + + PFA ? 124 ? multiphasic +--------+ + + SFA PRX ? 126 ? multiphasic +--------+ + + SFA MID ? 147 ? multiphasic +--------+ + + SFA DST ? 157 ? multiphasic +--------+ + + RUSLAN PRX ? 60 ? multiphasic +--------+ + + RUSLAN DST ? 80 ? monophasic +--------+ + + SUPERVISOR MOLD YARD DST ? 58 ? monophasic +--------+ + + DPA ? 49 ? monophasic +--------+ + + +--------+ + + LEFT ? Velocity cm/s Phasicity ?? +--------+ + + FIREWORKS ASSEMBLY SUPERVISOR PRX ? 94 ? multiphasic +--------+ + + FIREWORKS ASSEMBLY SUPERVISOR DST ? 171 ? multiphasic +--------+ + + PFA ? 110 ? multiphasic +--------+ + + SFA PRX ? 116 ? multiphasic +--------+ + + SFA MID ? 81 ? multiphasic +--------+ + + SFA DST ? 55 ? multiphasic +--------+ + + RUSLAN PRX ? 64 ? multiphasic +--------+ + + RUSLAN DST ? 55 ? multiphasic +--------+ + + SUPERVISOR MOLD YARD DST ? 37 ? multiphasic +--------+ + [...] ? Index +-----+ +--------+ +-----+ 0.80 ?102 ?SUPERVISOR MOLD YARD ?90 ? 0.71 +-----+ +--------+ +-----+ 0.94 ?120 ?DPA ?110 ? 0.87 +-----+ +--------+ +-----+ 0.63 ? 80 ? Digit 1 ?87 ? 0.69 +-----+ +--------+ +-----+ Paul Bishop MD. Electronically signed on 03/12/2024 5:38:31 PM This study was performed and interpreted by a service accredited by the Intersocietal Accreditation Commission (IAC/Vascular), [email or web address] Report generated by [employer]. ??Final ?? Procedure Note Paul Bishop MD - 03/12/2024 VASCULAR ULTRASOUND REPORT MICHEAL RENE : 1955 Study Date: 03/12/2024 12:34:00 PM Age: 69 years Tech: ALEXIS Gender: M Referring MD: MARIA GUADALUPE SMITH Site: [facility] Vascular Center Study performed: Lower extremity (bilateral), [...] RIGHT Velocity cm/s Phasicity +--------+ + + FIREWORKS ASSEMBLY SUPERVISOR PRX 125 multiphasic +--------+ + + FIREWORKS ASSEMBLY SUPERVISOR DST 148 multiphasic +--------+ + + PFA 124 multiphasic +--------+ + + SFA PRX 126 multiphasic +--------+ + + SFA MID 147 multiphasic +--------+ + + SFA DST 157 multiphasic +--------+ + + RUSLAN PRX 60 multiphasic +--------+ + + RUSLAN DST 80 monophasic +--------+ + + SUPERVISOR MOLD YARD DST 58 monophasic +--------+ + + DPA 49 monophasic +--------+ + + +--------+ + + LEFT Velocity cm/s Phasicity +--------+ + + FIREWORKS ASSEMBLY SUPERVISOR PRX 94 multiphasic +--------+ + + FIREWORKS ASSEMBLY SUPERVISOR DST 171 multiphasic +--------+ + + PFA 110 multiphasic +--------+ + + SFA PRX 116 multiphasic +--------+ + + SFA MID 81 multiphasic +--------+ + + SFA DST 55 multiphasic +--------+ + + RUSLAN PRX 64 multiphasic +--------+ + + RUSLAN DST 55 multiphasic +--------+ + + SUPERVISOR MOLD YARD DST 37 multiphasic +--------+ + + DPA 75 multiphasic +--------+ + + Criteria: Stenosis V. Ratio Mild <50% <2.0 Moderate 50-74% > or = 2.0 Severe 75-99% > or = 4.0 Occluded 100% no detectable flow Pressures +-----+ +--------+ +-----+ RIGHT (mmHg) LEFT (mmHg) +-----+ +--------+ +-----+ Index 124 Brachial 127 Index +-----+ +--------+ +-----+ 0.80 102 SUPERVISOR MOLD YARD 90 0.71 +-----+ +--------+ +-----+ 0.94 120 DPA 110 0.87 +-----+ +--------+ +-----+ 0.63 80 Digit 1 87 0.69 +-----+ +--------+ +-----+ Paul Bishop MD. Electronically signed on 03/12/2024 5:38:31 PM This study was performed and interpreted by a service accredited by theIntersocietal Accreditation Commission (IAC/Vascular),[email or web address] Report generated by [employer]. Final Maria Guadalupe Smith MD US * (ABNORMAL) CBC (02/03/2024 10:42 AM CDT) Only the most recent of2 resultswithin the time period is included. WHITE BLOOD COUNT 5.9 4.5 - 11.0 thou/cu mm 02/03/2024 11:20 AM CDT [facility] RED BLOOD COUNT 3.57(L) 4.30 - 5.90 mil/cu mm 02/03/2024 11:20 AM CDT [facility] HEMOGLOBIN 9.5(L) 13.5 - [...] thou /cu mm 02/03/2024 11:20 AM CDT [facility] Blood BLOOD SPECIMEN / Unknown Venipuncture / Unknown 02/03/2024 10:42 AM CDT 02/03/2024 10:56 AM CDT [facility] LABORATORY - 02/03/2024 11:20 AM CDT Call if Hemoglobin less than 10. Dary Carlos MD HEMATOLOGY [facility] [address] [place] [address], * (ABNORMAL) Basic Metabolic Panel (02/03/2024 10:42 AM CDT) Only the most recent of2 resultswithin the time period is included. SODIUM 139 136 - 145 mmol/L 02/03/2024 11:35 AM T [facility] POTASSIUM 4.7 3.5 - 5.1 mmol/L 02/03/2024 11:35 AM [facility] CHLORIDE 107 98 - 107 mmol/L 02/03/2024 11:35 AM [facility] CO2,TOTAL 26 22 - 29 mmol/L 02/03/2024 11:35 AM [facility] ANION GAP 6 5 - 18 02/03/2024 11:35 AM T [facility] GLUCOSE 139(H) 70 - 99 mg/dL 02/03/2024 11:35 AM [facility] CALCIUM 8.3(L) 8.8 - 10.2 mg/dL 02/03/2024 11:35 AM [facility] BUN 14 8 - 23 mg/dL 02/03/2024 11:35 AM [facility] CREATININE 0.42(L) 0.70 - 1.20 mg/dL 02/03/2024 11:35 AM [facility] BUN/CREAT RATIO 33(H) 10 - 20 11:35 AM [facility] eGFR >90 >90 mL/min/1.7 3m2 02/03/2024 11:35 AM [facility] Comment:As of 2021, [...] 10:56 AM T Dary Carlos MD CHEMISTRY [facility] [address] [place] [address], * SCAN-CARDIAC STRIP (02/03/2024 10:26 AM CDT) [...] Securement/dressing: Biopatch applied, dressing applied. ??Comment: Vessel Etl Informatica Developer Additional supplies used to locate vessel: no Needle Catheter size: 20 G. ??Comment:. Catheter length: 4.5 cm. ??Comment: Events: no complications. Enrico Perez MD ANESTHESIA PX N OTE ORDERABLES * (ABNORMAL) ACTIVATED CLOTTING TIME [id number] ACT (02/02/2024 1:59 PM CDT) [facility] ACTIVATED CLOTTING TIME, POCT 308(H) 74 - 125 sec 02/02/2024 3:45 PM CDT [facility] Blood BLOOD SPECIMEN / Unknown 02/02/2024 1:59 PM CDT 02/02/2024 3:45 PM CDT Maria Guadalupe Smith MD HEMATOLOGY [facility] [address] [place] [address], * HCHG TUBE PR1, HCHG STYLET PR1, [...] PM CDT Maria Guadalupe Smith MD LABORATORY [facility] [address] [place] [address], * RBC W/O TYPE & SCREEN (02/02/2024 10:27 AM CDT) QUANTITY 4 02/02/2024 10:27 AM CDT [facility] Blood BLOOD SPECIMEN / Unknown 02/02/2024 10:22 AM CDT Jono Malone NP BLOOD BANK [facility]-CENTRAL LAB BLOOD BANK [address] [place] [address], * DONOR ANTIGEN (02/02/2024 10:22 AM CDT) QUANTITY 4 [facility] LAB-CENTRAL LAB BLOOD BANK DONOR ANTIGEN TYPE Donor Antigen Type [facility]ANK Jono Malone NP BLOOD BANK Performing Organization Address [facility]/ZIP Co de Phone Number [facility] ([email or web address])-CENTRAL LAB BLOOD BANK [address] [place] [address], [place] [phone] * RED BLOOD CELLS EA UNIT (02/02/2024 10:22 AM CDT) Only the most recent of4 resultswithin the time period is included. Pathologist [facility] CROSSMATCH Compatible Compatible [facility]AL LAB BLOOD BANK PRODUCT BLOOD TYPE A Rh Positive [facility] LAB BLOOD BANK PRODUCT ID NUMBER [id number] [facility] ([email or web address])-CENTRAL LAB BLOOD BANK PRODUCT STATUS /Relea sed [facility] LAB BLOOD BANK PRODUCT DESCRIPTION RBC -1 LR [facility] LAB BLOOD BANK PRODUCT CODE [id number] [facility] BLOOD BANK Jono Malone NP BLOOD BANK Performing Organization Address [facility] Co de Phone Number [facility] BLOOD BANK [address] [place] [address], [place] [phone] * SCAN-CARDIAC STRIP (02/02/2024 12:00 AM CDT) Narrative 02/02/2024 12:00 AM CDT Ordered by an unspecified provider. Other Clinical Staff OTHER * (ABNORMAL) TYPE & SCREEN (02/01/2024 9:14 AM CDT) Pathologist [facility] ABORH A Rh Positive 02/01/2024 1:43 PM CDT [facility] BLOOD BANK Comment:Comment: Performed b y [facility], [address] [place] [address], [place] [address] ANTIBODY SCREEN Positive(A) Negative 02/01/2024 1:43 PM CDT [facility] BLOOD BANK Comment:Comment: Performed b y [facility], [address] [place] [address], [place] [address] SPECIMEN EXPIRATION DATE/TIME 02/04/24 23:59 02/01/2024 1:43 PM CDT [facility] BLOOD BANK Blood BLOOD SPECIMEN / Unknown Venipuncture / Unknown 02/01/2024 9:14 AM CDT 02/01/2024 9:21 AM CDT Maria Guadalupe Smith MD BLOOD BANK [facility] BLOOD BANK [address] [place] [address] * (ABNORMAL) ANTIBODY IDENTIFICATION LAB USE ONLY (02/01/2024 9:14 AM CDT) Pathologist [facility] ANTIBODY IDENTIFICATION Anti-Duff y a(A) 02/01/2024 2:49 PM CDT [facility] BLOOD BANK Comment:Comment: Performed b y Central Laboratory - [facility], [address], [place] [address] Blood BLOOD SPECIMEN / Unknown Venipuncture / Unknown 02/01/2024 9:14 AM CDT 02/01/2024 9:21 AM CDT Narrative [facility] BLOOD BANK - 02/01/2024 2:49 [...] laboratory Maria Guadalupe Smith MD BLOOD BANK [facility] BLOOD BANK [address] [place] [address] * ANTIBODY IDENTIFICATION EACH PANEL (02/01/2024 9:14 AM CDT) Pathologist [facility] QUANTITY 1 [facility] BLOOD BANK PANEL JOSÉ MIGUEL ID Panel Antibody ID [facility] BLOOD BANK Maria Guadalupe Smith MD BLOOD BANK [facility] BLOOD BANK [address] [place] [address] * SCAN CORRESP-LABORATORY RESULTS (02/01/2024 9:09 AM CDT) Narrative 02/01/2024 9:09 AM CDT Ordered by an unspecified provider. Other Clinical Staff OTHER * Lipid Panel - In AM (07/14/2008 3:00 AM PRECISION AGRONOMIST) [facility] CHOLESTEROL,TOTAL 141 110 - 199 mg/dL [facility] TRIGLYCERIDES 41 40 - 149 mg/dL [facility] HDL CHOLESTEROL 45 >40 mg/dL [facility] CHOL/HDL RATIO 3.13 <4.51 [facility] LDL CHOLESTEROL 88 <131 mg/dL [facility] PATIENT STATUS Fasting [facility] Blood specimen (specimen) BLOOD SPECIMEN / Unknown 07/14/2008 3:00 AM PRECISION AGRONOMIST 07/14/2008 1:52 AM PRECISION AGRONOMIST Phyllis Sánchez MD CHEMISTRY [facility] INTERNAL ZIP [address] [place] [id number] from Last 3 Months or Most Recently [...] 6:44 AM 03/14/2016 5:37 PM Care Teams Hvac Technician Relationship Specialty Start Date End Date Alex Mata MD [address] [place] [address] PCP - General Family Practice 02/04/20 Ana Mayers [address] [place] [address] Nurse Practitioner 03/02/11 Jak Keys NP [facility] [address] [place] [address] Nurse Practitioner Nurse Practitioner - Adult 10/30/23
--- NOTE | 2024-04-30 14:00 | CRLHL7_ITS ---
For Patients: As a result of the Century Cures Act, medical imaging exams and procedure reports are released immediately into your electronic medical record. You may view this report before your referring provider. If you have questions, please contact your health care provider. Indication: NON HEALING PRESSURE ULCER OF SACRAL REGION Technique: CT Pelvis WITH 68 CC ISOVUE [address] Please note that all CT scans at this facility use dose modulation, iterative reconstruction, and/or weight-based dosing when appropriate to reduce radiation dose to as low as reasonably achievable. Comparison: Radiographs 10/24/2022, CT 12/13/2023 Findings: Right posterior ischial soft tissue ulceration extending to the underlying bone. Chronic sclerotic changes of the right posterior ischium with chronic deformity. No acute periostitis or fracture. Chronic changes to the left posterior ischial bone. Postop changes of partial resection of the sacrum again noted. Postop changes left proximal femur. Bladder incompletely distended. Bilateral iliac stents. Impression: Chronic osteomyelitis involving the posterior ischial bone bilaterally with chronic right posterior ischial soft tissue ulcer. No evidence of acute osteomyelitis. Please note that all CT scans at this facility use dose modulation, iterative reconstruction, and/or weight-based dosing when appropriate to reduce radiation dose to as low as reasonably achievable. Dictated by Alex Hong MD @ 05/01/2024 10:03:35 AM (Electronically Signed)
== END 2024-04-30 10:35 | disposition home or self-care (01) ==
LOC: CT 10:35
PROVIDERS: PCP Family Medicine; Visit Provider Nurse Practitioner Family
DX: L89.314 Pressure ulcer of right buttock, stage 4 (principal); M86.8X8 Other osteomyelitis, other site
CPT/HCPCS: 36415; 72193; 82565; G0277; Q9967

== ENCOUNTER 2024-04-30 12:28 | Outpatient (CLI) | payer OTHER, SELFPAY ==
--- OUTSIDE RECORDS SUMMARY | 2024-04-30 12:32 | XMS_ITS | Clinical Summary ---
Author Organization [employer] [facility] Address [place], [place] [address] Care Team Providers Care Tempering Machine Operator Name Role Phone Goyoluis aAna Unavailable Alex Mata MD Primary Care Provider + Jak Keys SELF PROPELLED DREDGE OPERATOR Unavailable [phone] Allergies Active Allergy Reactions Criticality Noted Date Comments Blood-Group Specific Substance Other - Describe In Comment Field 04/19/2021 Patient has Sims a (Fya) antibody. Blood products may be delayed. Draw patient 24 hours prior to transfusion. For LOG607 testing, draw one red top and two [...] (11/17/2023): 09/20/23 bilateral lower extremity arterial ultrasound ([facility]) S/P flap graft 03/06/2020 Neurogenic orthostatic hypotension [...] Description 03/12/2024 2:00 PM CDT Office Visit [facility] [address] [place] [address] Maria Guadalupe Smith MD CV Vascular Est (4 week follow up; PAD with non-healing RLE wounds. U/S scheduled prior) 03/12/2024 12:24 PM CDT - 03/12/2024 11:59 PM CDT Hospital Encounter [facility] [address] [place] [address] Maria Guadalupe Smith MD Leistner, Joseph S, R.T. (ARRT) PAD (peripheral artery disease) (HC) 03/12/2024 Travel 02/13/2024 Refill [facility] [address], [place] [address] Maria Guadalupe Smith MD Refill Request 02/02/2024 1:04 PM CDT Anesthesia Event [facility] [address] [place] [address] Enrico Perez MD Beulke, Steven William, CRNA 02/02/2024 10:01 AM CDT - 02/03/2024 1:05 PM CDT Hospital Encounter [facility] [address] [place] [address] Maria Guadalupe Smith MD Taylor, Phillip Norman, MD Erickson, Andrew Richard, CRNA Discharge Disposition: Home Self Care 02/01/2024 8:53 AM CDT - 02/01/2024 11:59 PM CDT Hospital Encounter [facility] [address] [place] [address] PAD (peripheral artery disease) (HC) 02/01/2024 8:15 AM CDT Office Visit [facility] [address] [place] [address] Raquel Multani MD [facility] (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 [...] Contact Info) Description 05/03/2024 Cardiac Device Check [facility] [phone] Health Maintenance Due Date Last Done Comments [...] 12/26/2008, 09/01/2006 Medical Devices Implanted Type Area Energy Infrastructure Engineer Device Identifier Shelf Expiration Date Model / Serial / Lot Standard Pacemaker-12/21 Implanted:11/23 by Judson Jenkins MD (Quantity not on file) Standard Pacemaker Medtronic [id number] / [id number] / Procedures Procedure Name Priority Date/Time Associated [...] LIPID PANEL Early AM 07/14/2008 3:00 AM CRIPPLE CHASER from Last 3 Months or Most Recently Relevant to Health Maintenance Results * US ARTERIAL LOWER EXTREMITY W NHUNG BILATERAL (03/12/2024 1:15 PM CDT) Anatomical Region Laterality Modality LEGS Ultrasound 03/12/2024 12:3 4 PM CDT Narrative 03/12/2024 5:38 PM CDT VASCULAR ULTRASOUND REPORT MICHEAL RENE Accession#: ?? [id number] : ?1955 ??Study Date: ?? 03/12/2024 12:34:00 PM Age: ?69 years ?? Tech: ? JSL Gender: M ?Referring MD: MARIA GUADALUPE SMITH Site: [facility] Vascular Center Study performed: ?Lower extremity (bilateral), [...] Velocity cm/s Phasicity ?? +--------+ + + SUTURE WINDER HAND PRX ? 125 ? multiphasic +--------+ + + SUTURE WINDER HAND DST ? 148 ? multiphasic +--------+ + + PFA ? 124 ? multiphasic +--------+ + + SFA PRX ? 126 ? multiphasic +--------+ + + SFA MID ? 147 ? multiphasic +--------+ + + SFA DST ? 157 ? multiphasic +--------+ + + RUSLAN PRX ? 60 ? multiphasic +--------+ + + RUSLAN DST ? 80 ? monophasic +--------+ + + FABRICATION AND ASSEMBLY SUPERVISOR DST ? 58 ? monophasic +--------+ + + DPA ? 49 ? monophasic +--------+ + + +--------+ + + LEFT ? Velocity cm/s Phasicity ?? +--------+ + + SUTURE WINDER HAND PRX ? 94 ? multiphasic +--------+ + + SUTURE WINDER HAND DST ? 171 ? multiphasic +--------+ + + PFA ? 110 ? multiphasic +--------+ + + SFA PRX ? 116 ? multiphasic +--------+ + + SFA MID ? 81 ? multiphasic +--------+ + + SFA DST ? 55 ? multiphasic +--------+ + + RUSLAN PRX ? 64 ? multiphasic +--------+ + + RUSLAN DST ? 55 ? multiphasic +--------+ + + FABRICATION AND ASSEMBLY SUPERVISOR DST ? 37 ? multiphasic +--------+ [...] ? Index +-----+ +--------+ +-----+ 0.80 ?102 ?FABRICATION AND ASSEMBLY SUPERVISOR ?90 ? 0.71 +-----+ +--------+ +-----+ 0.94 ?120 ?DPA ?110 ? 0.87 +-----+ +--------+ +-----+ 0.63 ? 80 ? Digit 1 ?87 ? 0.69 +-----+ +--------+ +-----+ Paul Bishop MD. Electronically signed on 03/12/2024 5:38:31 PM This study was performed and interpreted by a service accredited by the Intersocietal Accreditation Commission (IAC/Vascular), [email or web address] Report generated by [employer]. ??Final ?? Procedure Note Paul Bishop MD - 03/12/2024 VASCULAR ULTRASOUND REPORT MICHEAL RENE : 1955 Study Date: 03/12/2024 12:34:00 PM Age: 69 years Tech: ALEXIS Gender: M Referring MD: MARIA GUADALUPE SMITH Site: [facility] Vascular Center Study performed: Lower extremity (bilateral), [...] RIGHT Velocity cm/s Phasicity +--------+ + + SUTURE WINDER HAND PRX 125 multiphasic +--------+ + + SUTURE WINDER HAND DST 148 multiphasic +--------+ + + PFA 124 multiphasic +--------+ + + SFA PRX 126 multiphasic +--------+ + + SFA MID 147 multiphasic +--------+ + + SFA DST 157 multiphasic +--------+ + + RUSLAN PRX 60 multiphasic +--------+ + + RUSLAN DST 80 monophasic +--------+ + + FABRICATION AND ASSEMBLY SUPERVISOR DST 58 monophasic +--------+ + + DPA 49 monophasic +--------+ + + +--------+ + + LEFT Velocity cm/s Phasicity +--------+ + + SUTURE WINDER HAND PRX 94 multiphasic +--------+ + + SUTURE WINDER HAND DST 171 multiphasic +--------+ + + PFA 110 multiphasic +--------+ + + SFA PRX 116 multiphasic +--------+ + + SFA MID 81 multiphasic +--------+ + + SFA DST 55 multiphasic +--------+ + + RUSLAN PRX 64 multiphasic +--------+ + + RUSLAN DST 55 multiphasic +--------+ + + FABRICATION AND ASSEMBLY SUPERVISOR DST 37 multiphasic +--------+ + + DPA 75 multiphasic +--------+ + + Criteria: Stenosis V. Ratio Mild <50% <2.0 Moderate 50-74% > or = 2.0 Severe 75-99% > or = 4.0 Occluded 100% no detectable flow Pressures +-----+ +--------+ +-----+ RIGHT (mmHg) LEFT (mmHg) +-----+ +--------+ +-----+ Index 124 Brachial 127 Index +-----+ +--------+ +-----+ 0.80 102 FABRICATION AND ASSEMBLY SUPERVISOR 90 0.71 +-----+ +--------+ +-----+ 0.94 120 DPA 110 0.87 +-----+ +--------+ +-----+ 0.63 80 Digit 1 87 0.69 +-----+ +--------+ +-----+ Paul Bishop MD. Electronically signed on 03/12/2024 5:38:31 PM This study was performed and interpreted by a service accredited by theIntersocietal Accreditation Commission (IAC/Vascular),[email or web address] Report generated by [employer]. Final Maria Guadalupe Smith MD US * (ABNORMAL) CBC (02/03/2024 10:42 AM CDT) Only the most recent of2 resultswithin the time period is included. WHITE BLOOD COUNT 5.9 4.5 - 11.0 thou/cu mm 02/03/2024 11:20 AM CDT [facility] RED BLOOD COUNT 3.57(L) 4.30 - 5.90 mil/cu mm 02/03/2024 11:20 AM CDT [facility] HEMOGLOBIN 9.5(L) 13.5 - 17.5 g/dL 02/03/2024 11:20 AM CDT [facility] HEMATOCRIT 30.9(L) 37.0 - 53.0 % 02/03/2024 11:20 AM CDT [facility] MCV 87 80 - 100 fL 02/03/2024 11:20 AM CDT [facility] MCH 26.6 26.0 - 34.0 pg 02/03/2024 11:20 AM CDT [facility] MCHC 30.7(L) 32.0 - 36.0 g/dL 02/03/2024 11:20 AM CDT [facility] RDW 13.5 11.5 - 15.5 % 02/03/2024 11:20 AM CDT [facility] PLATELET COUNT 211 140 - 440 thou/cu mm 02/03/2024 11:20 AM CDT [facility] MPV 8.3 6.5 - 11.0 fL 02/03/2024 11:20 AM CDT [facility] NRBC 0.0 % 02/03/2024 11:20 AM CDT [facility] ABS NRBC 0.0 thou /cu mm 02/03/2024 11:20 AM CDT [facility] Blood BLOOD SPECIMEN / Unknown Venipuncture / Unknown 02/03/2024 10:42 AM CDT 02/03/2024 10:56 AM CDT [facility] - 02/03/2024 11:20 AM CDT Call if Hemoglobin less than 10. Dary Carlos MD HEMATOLOGY [facility] [address] [place] [address], * (ABNORMAL) Basic Metabolic Panel (02/03/2024 10:42 AM CDT) Only the most recent of2 resultswithin the time period is included. SODIUM 139 136 - 145 mmol/L 02/03/2024 11:35 AM T [facility] POTASSIUM 4.7 3.5 - 5.1 mmol/L 02/03/2024 11:35 AM [facility] CHLORIDE 107 98 - 107 mmol/L 02/03/2024 11:35 AM [facility] CO2,TOTAL 26 22 - 29 mmol/L 02/03/2024 11:35 AM [facility] ANION GAP 6 5 - 18 02/03/2024 11:35 AM T [facility] GLUCOSE 139(H) 70 - 99 mg/dL 02/03/2024 11:35 AM [facility] CALCIUM 8.3(L) 8.8 - 10.2 mg/dL 02/03/2024 11:35 AM [facility] BUN 14 8 - 23 mg/dL 02/03/2024 11:35 AM [facility] CREATININE 0.42(L) 0.70 - 1.20 mg/dL 02/03/2024 11:35 AM [facility] BUN/CREAT RATIO 33(H) 10 - 20 11:35 AM [facility] eGFR >90 >90 mL/min/1.7 3m2 02/03/2024 11:35 AM [facility] Comment:As of 2021, eG [...] 10:56 AM T Dary Carlos MD CHEMISTRY [facility] [address] [place] [address], * SCAN-CARDIAC STRIP (02/03/2024 10:26 AM CDT) [...] Securement/dressing: Biopatch applied, dressing applied. ??Comment: Vessel Hand Stone Polisher Additional supplies used to locate vessel: no Needle Catheter size: 20 G. ??Comment:. Catheter length: 4.5 cm. ??Comment: Events: no complications. Enrico Perez MD ANESTHESIA PX N OTE ORDERABLES * (ABNORMAL) ACTIVATED CLOTTING TIME [id number] ACT (02/02/2024 1:59 PM CDT) [facility] ACTIVATED CLOTTING TIME, POCT 308(H) 74 - 125 sec 02/02/2024 3:45 PM CDT [facility] Blood BLOOD SPECIMEN / Unknown 02/02/2024 1:59 PM CDT 02/02/2024 3:45 PM CDT Maria Guadalupe Smith MD HEMATOLOGY [facility] [address] [place] [address], * HCHG TUBE PR1, HCHG STYLET PR1, [...] PM CDT Maria Guadalupe Smith MD LABORATORY [facility] [address] [place] [address], * RBC W/O TYPE & SCREEN (02/02/2024 10:27 AM CDT) QUANTITY 4 02/02/2024 10:27 AM CDT [facility] Blood BLOOD SPECIMEN / Unknown 02/02/2024 10:22 AM CDT Jono Malone NP BLOOD BANK [facility] BLOOD BANK [address] [place] [address], * DONOR ANTIGEN (02/02/2024 10:22 AM CDT) QUANTITY 4 [facility] BLOOD BANK DONOR ANTIGEN TYPE Donor Antigen Type [facility] Jono Malone NP BLOOD BANK Performing Organization Address [facility]/ZIP Co de Phone Number [facility] [employer]-CENTRAL LAB BLOOD BANK [address] [place] [address], [place] [phone] * RED BLOOD CELLS EA UNIT (02/02/2024 10:22 AM CDT) Only the most recent of4 resultswithin the time period is included. Pathologist [facility] CROSSMATCH Compatible Compatible [facility] B[facility] B[facility] PRODUCT BLOOD TYPE A Rh Positive [facility] B[facility] BANK PRODUCT ID NUMBER [id number] [facility] [employer]-CENTRAL LAB BLOOD BANK PRODUCT STATUS /Relea sed [facility] BLOOD B[facility] PRODUCT DESCRIPTION RBC -1 LR [facility] B[facility] B[facility] PRODUCT CODE [id number] [facility] TOT[employer] SolutionsCENTRAL LAB BLOOD BANK Jono Malone NP BLOOD BANK Performing Organization Address [facility] Co de Phone Number [facility] Solutions[facility]ENTRAL LAB BLOOD BANK [address] [place] [address], [place] [phone] * SCAN-CARDIAC STRIP (02/02/2024 12:00 AM CDT) Narrative 02/02/2024 12:00 AM CDT Ordered by an unspecified provider. Other Clinical Staff OTHER * (ABNORMAL) TYPE & SCREEN (02/01/2024 9:14 AM CDT) Pathologist [facility] ABORH A Rh Positive 02/01/2024 1:43 PM CDT [facility] BLOOD BANK Comment:Comment: Performed b y [facility], [address] [place] [address], [place] [address] ANTIBODY SCREEN Positive(A) Negative 02/01/2024 1:43 PM CDT [facility] BLOOD BANK Comment:Comment: Performed b y [facility], [address] [place] [address] [address] [address] SPECIMEN EXPIRATION DATE/TIME 02/04/24 23:59 02/01/2024 1:43 PM CDT [facility] BLOOD BANK Blood BLOOD SPECIMEN / Unknown Venipuncture / Unknown 02/01/2024 9:14 AM CDT 02/01/2024 9:21 AM CDT Maria Guadalupe Smith MD BLOOD BANK [facility] BLOOD BANK [address] [place] [address] * (ABNORMAL) ANTIBODY IDENTIFICATION LAB USE ONLY (02/01/2024 9:14 AM CDT) Pathologist [facility] ANTIBODY IDENTIFICATION Anti-Duff y a(A) 02/01/2024 2:49 PM CDT [facility] BLOOD BANK Comment:Comment: Performed b y [facility] Laboratory - [facility], [address], [place] [address] Blood BLOOD SPECIMEN / Unknown Venipuncture / Unknown 02/01/2024 9:14 AM CDT 02/01/2024 9:21 AM CDT Narrative [facility] BLOOD BANK - 02/01/2024 [...] laboratory Maria Guadalupe Smith MD BLOOD BANK [facility] BLOOD BANK [address] [place] [address] * ANTIBODY IDENTIFICATION EACH PANEL (02/01/2024 9:14 AM CDT) Pathologist [facility] QUANTITY 1 [facility] BLOOD BANK PANEL JOSÉ MIGUEL ID Panel Antibody ID [facility] BLOOD BANK Maria Guadalupe Smith MD BLOOD BANK [facility] BLOOD BANK [address] [place] [address] * SCAN CORRESP-LABORATORY RESULTS (02/01/2024 9:09 AM CDT) Narrative 02/01/2024 9:09 AM CDT Ordered by an unspecified provider. Other Clinical Staff OTHER * Lipid Panel - In AM (07/14/2008 3:00 AM CRIPPLE CHASER) [facility] CHOLESTEROL,TOTAL 141 110 - 199 mg/dL [facility] TRIGLYCERIDES 41 40 - 149 mg/dL [facility] HDL CHOLESTEROL 45 >40 mg/dL [facility] CHOL/HDL RATIO 3.13 <4.51 [facility] LDL CHOLESTEROL 88 <131 mg/dL [facility] PATIENT STATUS Fasting [facility] Blood specimen (specimen) BLOOD SPECIMEN / Unknown 07/14/2008 3:00 AM CRIPPLE CHASER 07/14/2008 1:52 AM CRIPPLE CHASER Phyllis Sánchez MD CHEMISTRY [facility] INTERNAL ZIP [address] [place] [id number] from Last 3 Months or Most Recently [...] 12 months since positive culture): resides in acute/fpc care, receiving hemodialysis, has chronic open wounds/skin [...] 6:44 AM 03/14/2016 5:37 PM Care Teams Tempering Machine Operator Relationship Specialty Start Date End Date Alex Mata MD [address] [place] [address] PCP - General Family Practice 02/04/20 Ana Mayers [address] [place] [address] Nurse Practitioner 03/02/[address] [facility] [address] [place] [address] Nurse Practitioner Nurse Practitioner - Adult 10/30/23
== END 2024-04-30 12:29 | disposition home or self-care (01) ==
LOC: WOUND 12:29
PROVIDERS: PCP Family Medicine; Visit Provider Nurse Practitioner Family
DX: M86.671 Other chronic osteomyelitis, right ankle and foot (principal); L89.614 Pressure ulcer of right heel, stage 4; L89.314 Pressure ulcer of right buttock, stage 4; L89.622 Pressure ulcer of left heel, stage 2; L89.893 Pressure ulcer of other site, stage 3; L89.894 Pressure ulcer of other site, stage 4; L30.4 Erythema intertrigo; S14.155S Other incomplete lesion at C5 level of cervical spinal cord, sequela; Z99.3 Dependence on wheelchair; G82.20 Paraplegia, unspecified
CPT/HCPCS: G0277; G0463

== ENCOUNTER 2024-05-06 08:01 | Outpatient (CLI) | payer OTHER, SELFPAY ==
--- OUTSIDE RECORDS SUMMARY | 2024-05-06 08:04 | XMS_ITS | Data Portability ---
Author Organization [facility], [facility] Address [address] [place] [address] Care Team Providers Care Drama Teacher Name Role Phone CHETNA MERAZ Primary Care Provider RAHUL OCONNOR Tape Recorder Repairer Assessment Encounter Date Assessment Date Assessment LastModified [...] None recorded. Lab culture, urine 2020 021 [facility], [address], [place], [address], 07:39:35 urinalysis, dipstick 2020 021 marie Not available 10/20/202 1 11:34:22 Referral None recorded. Procedures None recorded. Surgeries None recorded. Imaging US, kidney 2021 022 [facility] Radiology Department, [address] [place], [address], 2 09:00:29 Medication Orders oxybutynin chloride ER 15 mg tablet,exte nded release 24 hr 2021 022 [id number], [address], [place], [place], [id number], 2 12:53:22 nitrofurant oin macrocrysta l 50 mg capsule [address] [facility]78136, [address], [place], [place], [id number], 4 08:10:56 nitrofurant oin macrocrysta l 50 mg capsule [address] [facility]55277, [address], [place], [place], [id number], 4 08:10:56 oxybutynin chloride ER 15 mg tablet,exte nded release 24 hr 2022 023 [facility] #48607, [address] , [place], [place], [id number], 3 12:15:06 methenamine hippurate 1 gram tablet [address] [facility]19798, [address] , [place], [place], [id number], 4 23:05:30 methenamine hippurate 1 gram tablet 2023 024 [facility] #27488, [address] , [place], [place], [id number], 4 23:05:37 oxybutynin chloride ER 15 mg tablet,exte nded release 24 hr 2023 024 [facility]9935, [address] , [place], [id number], 4 23:04:50 Patient TargetsNo targets recorded. Patient InstructionsNo instructions recorded. Reason for Referral None Reported. Results Created Date Observation Date Name Description Value Unit Range Abnormal Flag Note LastModifiedBy Organization Detail LastModifiedTime 05/12/2021 urina lysis , dipst ick Color-Status Yellow Not Available [facility] [address], [place], [address], 05/12/2021 11:33:40 05/12/2021 urina lysis , dipst ick Clarity-Stat us Cloudy Not Available [facility] [address], [place], [address], 05/12/2021 11:33:40 05/12/2021 urina lysis , dipst ick pH-Status 7.5 Not Available [facility] [address], [place], [address], 05/12/2021 11:33:40 05/12/2021 urina lysis , dipst ick Nitrates-Sta tus positi ve Not Available [facility] [address], [place], [address], 05/12/2021 11:33:40 05/12/2021 urina lysis , dipst ick Blood-Status Small Not Available [facility] [address], [place], [address], 05/12/2021 11:33:40 05/12/2021 urina lysis , dipst ick Leuko-Status Large Not Available [facility] [address], [place], [address], 05/12/2021 11:33:40 05/06/20 21 05/06/2021 URINE CULTU [...] y Type Sensi tivit y [place] sis [place] te 1 [place] te 2 ----- ----- ----- ----- ----- [...] s Desk Refer ence or from the [facility] actur er. S= Susce ptibl e;I= Inter media te;R= Resis tant; ESBL= Resis tance due to confi rmed ESBL Not Available [facility] [address], [place], [address], 05/08/2021 07:39:35 10/07/19 22 10/05/2021 US, kidne y No observ ation record ed. [address] Radiology Department [address] [place], [address], 09/28/2022 13:47:50 Result Notes None recorded. Procedures Surgical History Date Name Laterality Status Provider Name and Address Organization Details Recorded Time 11/01/19 24 COMPLEX VISIT completed Jono Pagan MD [address], [place], [address], [facility] 11/01/2023 08:09:54 excision of pressure injury completed Jono Pagan MD [address], [place], [address], [facility] 09/28/2022 11:00:08 maintenance procedure for cardiac pacemaker system completed Veronika Begum [facility] 11/01/2023 11:05:10 Imaging Results Imaging Date Name Status LastModified by Organiz ation Details LastModified Time 10/05/2021 US, kidney completed [address] Radiology Department [address] [place], [address], 09/28/2022 13:47:50 Procedure Notes None recorded. Medical Equipment None Reported. Allergies Allergen ID Allergen Name Allergen Category Reaction Reaction Severity Criticality Documentation Date Start Date Code Code System Note Provider Name and Address Organization Details Recorded Time 791639 Medicinal product containin g cephalosp pao and acting as antibacte rial agent (product) medicatio n Not available Not available Not available 09/27/2021 46513 9009 SNOMED Nasreen hwang [facility] 12:43:20 714362 shellfish derived food,medi cation Not available Not available Not available 11/01/2023 [place] [facility] 11:03:08 Medications Name Sig Start Date [...] Updated DateTime 09/28/2022 182.88 cm 19.4 kg/m2 37908.71 g Veronika Begum [facility] 09/28/2022 10:55:01 Date Recorded Body height Body mass index (BMI) Body weight Provider Name and Address Organization Details Last Updated DateTime 04/28/2023 182.88 cm 19.4 kg/m2 30805.71 g Mindy Malone [facility] 04/28/2023 11:39:29 Date Recorded Body height Body mass index (BMI) Body weight Provider Name and Address Organization Details Last Updated DateTime 10/12/2023 182.88 cm 19.4 kg/m2 78989.71 g Veronika Begum [facility] 10/12/2023 12:26:19 Date Recorded Body height Body mass index (BMI) Body weight Provider Name and Address Organization Details Last Updated DateTime 11/01/2023 182.88 cm 18.7 kg/m2 96390.75 g Veronika Begum [facility] 11/01/2023 11:02:57 Date Recorded Body height Body mass index (BMI) Body weight Provider Name and Address Organization Details Last Updated DateTime 05/06/2021 182.88 cm 19.4 kg/m2 84187.71 g Chelsea Medrano [facility] 05/06/2021 12:47:45 Date Recorded Body height Body mass index (BMI) Body weight Provider Name and Address Organization Details Last Updated DateTime 09/27/2021 182.88 cm 19.4 kg/m2 42929.71 g Nasreen Salas [facility] 09/27/2021 12:43:07 Social History Question Answer Notes LastModified by Organizat ion Details LastModified Time Tobacco Smoking Status [facility] 14:55:09 What Is Your Level [...] Not available 12:44:28 Medical History Condition Response Diabetes N Sexually Transmitted Infection N Bleeding Disorder N Other N High Blood Pressure N Kidney Stones N High Cholesterol N GERD/Acid Reflux N Heart Disease N Cancer N Depression N Lung Disease N Immunizations Vaccine Type Date Status Provider Name and Address Organization Details Recorded Time IPV 11/19/2004 completed Mindy hwang [facility] 04/28/2023 11:39:35 COVID-19, mRNA, LNP-S, PF, 30 mcg/0.3 mL dose 08/20/[address] [facility] 04/28/2023 11:39:35 COVID-19, mRNA, LNP-S, PF, 30 mcg/0.3 mL dose 09/14/2020 completed Mindy hwang [facility] 04/28/2023 11:39:35 Pneumococcal conjugate PCV20, polysaccharide TUR244 conjugate, adjuvant, PF 12/01/2022 completed Mindy hwang [facility] 04/28/2023 11:39:35 influenza, unspecified formulation 05/24/2006 maki hwang [facility] 04/28/2023 11:39:35 Tdap 09/01/[address] [facility] 04/28/2023 11:39:35 Tdap 12/26/[address] [facility] 04/28/2023 11:39:35 zoster live 01/29/2015 [...] Diagnosis/Indication Diagnosis SNOMED-CT Code Diagnosis ICD10 Code [id number] Jono Pagan MD [facility] [address] [place] [address] 02/18/2021 14:23:42 02/19/2021 12:13:21 Neurogenic urinary bladder 534079456 N31.9 Spinal cord injury 22880 004 G95.89 Spasm of u rinary bladder 439189026 N32.89 Recurrent urinary tract infection 089840049 N39.0 Acute urin estefany tract infection 716712097 N39.0 [id number] Marlene Greer [facility] [address] [place] [address] 05/06/2021 11:58:15 05/11/2021 03:52:30 Abnormal urine 728088141 R82.90 [id number] Jono Pagan MD [facility] [address] [place] [address] 09/27/2021 12:37:54 10/27/2021 09:29:43 Neurogenic urinary bladder 889978480 N31.9 Spinal cord injury 09266 004 G95.89 Spasm of u rinary bladder 045583134 N32.89 Recurrent urinary tract infection 733477188 N39.0 [id number] Jono Pagan MD [facility] [address] [place] [address] 09/28/2022 10:53:21 10/01/2022 11:26:52 Neurogenic urinary bladder 667721224 N31.9 Spinal cord injury 46235 004 G95.89 Spasm of u rinary bladder 721692822 N32.89 Recurrent urinary tract infection 415902063 N39.0 [id number] Jono Pagan MD [facility] [address] [place] [address] 04/28/2023 11:30:11 05/04/2023 11:13:13 Neurogenic urinary bladder 727384847 N31.9 Spinal cord injury 56567 004 G95.89 Spasm of u rinary bladder 556495280 N32.89 Recurrent urinary tract infection 547058390 N39.0 [id number] Jono Pagan MD [facility] [address] [place] [address] 11/01/2023 10:52:02 11/02/2023 14:01:41 Neurogenic urinary bladder 988625581 N31.9 Spinal cord injury 46390 004 G95.89 Spasm of u rinary bladder 167824894 N32.89 Recurrent urinary tract infection 830534228 N39.0 Health Concerns Section Related Observation LastModified by Organization Detai ls LastModified Time None Recorded Concern Status LastModified by Organization Details LastModified Time None Recorded Advance Directives Directive None Recorded Payers Encounter Date Sequence Insurance Name Policy Number Policy Quinones Covered Member ID Quinones Member ID Guarantor Name 05/06/2021 [facility] [employer] [facility] [id number] [employer]y Khanh [place] 09/27/2021 1 [facility] (MEDICARE REPLACEMENT/AD VANTAGE - PPO) [id number] Khanh C [place] [id number] Khanh C [place] 09/28/2022 [facility] [employer] [id number] [employer] Khanh [place] 04/28/2023 1 [facility] (MEDICARE REPLACEMENT/AD VANTAGE - PPO) [id number] Khanh C [place] [id number] Khanh C [place] 11/01/2023 [facility] [employer] [facility] [id number] Rent[employer] Khanh Rene Notes Date Note Type Note Provider Name and Address Organization Details Recorded Time 05/06/2021 text/html HPI Notes: Pt he re for UA/UC due to low back ache, cloudy urine with sediment present X 1.5 weeks. pt given cipro 500mg BID pending culture. 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 Jono Pagan MD [address], [place], [address], [facility] 09/27/2021 13:13:14 09/28/2022 text/html HPI [...] upper tract abnormality. Jono Pagan MD [address], [place], [address], [facility] 09/28/2022 13:48:55 04/28/2023 text/html HPI [...] since the summer. Jono Pagan MD [address], [place], [address], [facility] 04/28/2023 12:27:52 11/01/2023 text/html HPI [...] catheter when traveling. Jono Pagan MD [address], [place], [address], [facility] 11/01/2023 23:05:58
== END 2024-05-06 08:02 | disposition home or self-care (01) ==
LOC: WOUND 08:02
PROVIDERS: PCP Family Medicine; Visit Provider Nurse Practitioner Family
DX: M86.671 Other chronic osteomyelitis, right ankle and foot (principal); L89.614 Pressure ulcer of right heel, stage 4; L89.894 Pressure ulcer of other site, stage 4; L89.893 Pressure ulcer of other site, stage 3; L89.314 Pressure ulcer of right buttock, stage 4; L30.4 Erythema intertrigo; S14.155S Other incomplete lesion at C5 level of cervical spinal cord, sequela; Z99.3 Dependence on wheelchair
CPT/HCPCS: 15271; 15275; 15276; 97597; G0277; Q4201

== ENCOUNTER 2024-05-13 07:59 | Outpatient (CLI) | payer OTHER, SELFPAY ==
--- OUTSIDE RECORDS SUMMARY | 2024-05-13 08:02 | XMS_ITS | Data Portability ---
Author Organization [facility], [facility] Address [address] [place] [address] Care Team Providers Care Windows Architect Name Role Phone CHETNA MERAZ Primary Care Provider RAHUL OCONNOR Food Products Tester Assessment Encounter Date Assessment Date Assessment LastModified [...] None recorded. Lab culture, urine 2020 021 [facility], [address], [place], [address], 07:39:35 urinalysis, dipstick 2020 021 marie Not available 10/20/202 1 11:34:22 Referral None recorded. Procedures None recorded. Surgeries None recorded. Imaging US, kidney 2021 022 [facility] Radiology Department, [address] [place], [address], 2 09:00:29 Medication Orders oxybutynin chloride ER 15 mg tablet,exte nded release 24 hr [address] [facility] #00554, [address], [place], [place], [id number], 2 12:53:22 nitrofurant oin macrocrysta l 50 mg capsule [address] [facility]37469, [address], [place], [place], [id number], 4 08:10:56 nitrofurant oin macrocrysta l 50 mg capsule [address] [facility] #25210, [address], [place], [place], [id number], 4 08:10:56 oxybutynin chloride ER 15 mg tablet,exte nded release 24 hr [address] [facility] #41968, [address] , [place], [place], [id number], 3 12:15:06 methenamine hippurate 1 gram tablet [address] [facility] #19695, [address] , [place], [place], [id number], 4 23:05:30 methenamine hippurate 1 gram tablet [address] [facility] #11074, [address] , [place], [place], [id number], 4 23:05:37 oxybutynin chloride ER 15 mg tablet,exte nded release 24 hr 2023 024 [facility]08185, [address] , [place], [id number], 4 23:04:50 Patient TargetsNo targets recorded. Patient InstructionsNo instructions recorded. Reason for Referral None Reported. Results Created Date Observation Date Name Description Value Unit Range Abnormal Flag Note LastModifiedBy Organization Detail LastModifiedTime 05/12/2021 urina lysis , dipst ick Color-Status Yellow Not Available [facility] [address], [place], [address], 05/12/2021 11:33:40 05/12/2021 urina lysis , dipst ick Clarity-Stat us Cloudy Not Available [facility] [address], [place], [address], 05/12/2021 11:33:40 05/12/2021 urina lysis , dipst ick pH-Status 7.5 Not Available [facility] [address], [place], [address], 05/12/2021 11:33:40 05/12/2021 urina lysis , dipst ick Nitrates-Sta tus positi ve Not Available [facility] [address], [place], [address], 05/12/2021 11:33:40 05/12/2021 urina lysis , dipst ick Blood-Status Small Not Available [facility] [address], [place], [address], 05/12/2021 11:33:40 05/12/2021 urina lysis , dipst ick Leuko-Status Large Not Available [facility] [address], [place], [address], 05/12/2021 11:33:40 05/06/20 21 05/06/2021 URINE CULTU [...] y Type Sensi tivit y [place] sis [place] te 1 [place] te 2 ----- ----- ----- ----- ----- [...] s Desk Refer ence or from the [facility] actur er. S= Susce ptibl e;I= Inter media te;R= Resis tant; ESBL= Resis tance due to confi rmed ESBL Not Available [facility] [address] [facility] [address], [place], [address], 05/08/2021 07:39:35 10/07/19 22 10/05/2021 US, kidne y No observ ation record ed. [address] Radiology Department [address] [place], [address], 09/28/2022 13:47:50 Result Notes None recorded. Procedures Surgical History Date Name Laterality Status Provider Name and Address Organization Details Recorded Time 11/01/19 24 COMPLEX VISIT completed Jono Pagan MD [address], [place], [address], [facility] 11/01/2023 08:09:54 excision of pressure injury completed Jono Pagan MD [address], [place], [address], [facility] 09/28/2022 11:00:08 maintenance procedure for cardiac pacemaker system completed Veronika Begum [facility] 11/01/2023 11:05:10 Imaging Results Imaging Date Name Status LastModified by Organiz ation Details LastModified Time 10/05/2021 US, kidney completed [address] Radiology Department [address] [place], [address], 09/28/2022 13:47:50 Procedure Notes None recorded. Medical Equipment None Reported. Allergies Allergen ID Allergen Name Allergen Category Reaction Reaction Severity Criticality Documentation Date Start Date Code Code System Note Provider Name and Address Organization Details Recorded Time 564272 Medicinal product containin g cephalosp pao and acting as antibacte rial agent (product) medicatio n Not available Not available Not available 09/27/2021 35900 9009 SNOMED Nasreen hwang [facility] 12:43:20 576174 shellfish derived food,medi cation Not available Not available Not available 11/01/2023 Veronika h[place], [place] - [facility] 11:03:08 Medications Name Sig Start Date [...] Updated DateTime 09/28/2022 182.88 cm 19.4 kg/m2 33766.71 g Veronika Begum [facility] 09/28/2022 10:55:01 Date Recorded Body height Body mass index (BMI) Body weight Provider Name and Address Organization Details Last Updated DateTime 04/28/2023 182.88 cm 19.4 kg/m2 63457.71 g Mindy Malone [facility] 04/28/2023 11:39:29 Date Recorded Body height Body mass index (BMI) Body weight Provider Name and Address Organization Details Last Updated DateTime 10/12/2023 182.88 cm 19.4 kg/m2 81599.71 g Veronika Begum [facility] 10/12/2023 12:26:19 Date Recorded Body height Body mass index (BMI) Body weight Provider Name and Address Organization Details Last Updated DateTime 11/01/2023 182.88 cm 18.7 kg/m2 56220.75 g Veronika Begum [facility] 11/01/2023 11:02:57 Date Recorded Body height Body mass index (BMI) Body weight Provider Name and Address Organization Details Last Updated DateTime 05/06/2021 182.88 cm 19.4 kg/m2 59777.71 g Chelsea Medrano [facility] 05/06/2021 12:47:45 Date Recorded Body height Body mass index (BMI) Body weight Provider Name and Address Organization Details Last Updated DateTime 09/27/2021 182.88 cm 19.4 kg/m2 41885.71 g Nasreen Salas [facility] 09/27/2021 12:43:07 Social History Question Answer Notes LastModified by Organizat ion Details LastModified Time Tobacco Smoking Status [facility] 14:55:09 What Is Your Level [...] Recorded Time IPV 11/19/2004 completed Mindy hwang [facility] 04/28/2023 11:39:35 COVID-19, mRNA, LNP-S, PF, 30 mcg/0.3 mL dose 08/20/2020 completed [facility] 04/28/2023 11:39:35 COVID-19, mRNA, LNP-S, PF, 30 mcg/0.3 mL dose 09/14/2020 completed Mindy hwang [facility] 04/28/2023 11:39:35 Pneumococcal conjugate PCV20, polysaccharide RUN745 conjugate, adjuvant, PF 12/01/2022 completed Mindy hwang [facility] 04/28/2023 11:39:35 influenza, unspecified formulation 05/24/2006 maki hwang [facility] 04/28/2023 11:39:35 Tdap 09/01/2006 maki hwang [facility] 04/28/2023 11:39:35 Tdap 12/26/2008 completed Mindy hwang [facility] 04/28/2023 11:39:35 zoster live 01/29/2015 completed Mindy hwang, [facility] 04/28/2023 11:39:35 Influenza, split virus, trivalent, PF 03/25/2011 completed Mindy Malone null, [facility] 04/28/2023 11:39:35 Influenza, split virus, trivalent, PF 05/24/2012 completed Mindy hwang, [facility] 04/28/2023 11:39:35 Td (adult), 2 Lf tetanus toxoid, preservative free, adsorbed 03/21/1997 completed Mindy hwang, [facility] 04/28/2023 11:39:35 Hep B, adult 09/01/2006 completed Mindy hwang, [facility] 04/28/2023 11:39:35 Hep B, adult 11/19/2004 completed Mindy hwang, [facility] 04/28/2023 11:39:35 Hep B, adult 03/30/2007 completed Mindy hwang, [facility] 04/28/2023 11:39:35 Hep A, adult 09/30/2002 completed Mindy hwang, [facility] 04/28/2023 11:39:35 Hep A, adult 11/19/2004 completed Mindy hwang, [facility] 04/28/2023 11:39:35 Hep A, adult 05/01/2003 completed Mindy hwang [facility] 04/28/2023 11:39:35 typhoid, ViCPs 09/01/2006 completed Mindy hwang, [facility] 04/28/2023 11:39:35 typhoid, ViCPs 09/30/2002 completed Mindy hwang, [facility] 04/28/2023 11:39:35 Past Encounters Encounter ID Performer Location Encounter Start Date Encounter Closed Date Diagnosis/Indication Diagnosis SNOMED-CT Code Diagnosis ICD10 Code [id number] Jono Pagan MD [facility] [address] [place] [address] 02/18/2021 14:23:42 02/19/2021 12:13:21 Neurogenic urinary bladder 321889070 N31.9 Spinal cord injury 70252 004 G95.89 Spasm of u rinary bladder 662230490 N32.89 Recurrent urinary tract infection 682284462 N39.0 Acute urin estefany tract infection 666520978 N39.0 [id number] Marlene Greer [facility] [address] [place] [address] 05/06/2021 11:58:15 05/11/2021 03:52:30 Abnormal urine 322638324 R82.90 [id number] Jono Pagan MD [facility] [address] [place] [address] 09/27/2021 12:37:54 10/27/2021 09:29:43 Neurogenic urinary bladder 932552890 N31.9 Spinal cord injury 79670 004 G95.89 Spasm of u rinary bladder 346285935 N32.89 Recurrent urinary tract infection 736340376 N39.0 [id number] Jono Pagan MD [facility] [address] [place] [address] 09/28/2022 10:53:21 10/01/2022 11:26:52 Neurogenic urinary bladder 832602593 N31.9 Spinal cord injury 88751 004 G95.89 Spasm of u rinary bladder 027028836 N32.89 Recurrent urinary tract infection 169940435 N39.0 [id number] Jono Pagan MD [facility] [address] [place] [address] 04/28/2023 11:30:11 05/04/2023 11:13:13 Neurogenic urinary bladder 623399489 N31.9 Spinal cord injury 15329 004 G95.89 Spasm of u rinary bladder 989056733 N32.89 Recurrent urinary tract infection 284442076 N39.0 [id number] Jono Pagan MD [facility] [address] [place] [address] 11/01/2023 10:52:02 11/02/2023 14:01:41 Neurogenic urinary bladder 620740689 N31.9 Spinal cord injury 50819 004 G95.89 Spasm of u rinary bladder 147015573 N32.89 Recurrent urinary tract infection 259047306 N39.0 Health Concerns Section Related Observation LastModified by Organization Detai ls LastModified Time None Recorded Concern Status LastModified by Organization Details LastModified Time None Recorded Advance Directives Directive None Recorded Payers Encounter Date Sequence Insurance Name Policy Number Policy Quinones Covered Member ID Quinones Member ID Guarantor Name 05/06/2021 [facility] [employer]ANCE [facility] [id number] Runa Khanh C [place] 09/27/2021 1 [employer] (MEDICARE REPLACEMENT/AD VANTAGE - PPO) [id number] Khanh C [place]gard [id number] Khanh C [place] 09/28/2022 [facility] [employer] [id number] Runa Khanh C [place] 04/28/2023 1 [employer] (MEDICARE REPLACEMENT/AD VANTAGE - PPO) [id number] Khanh C [place] [id number] Khanh C [place] 11/01/2023 [facility] [employer] INS[employer] [facility] [id number] Runa Khanh Rene Notes Date Note Type Note Provider Name and Address Organization Details Recorded Time 05/06/2021 text/html HPI Notes: Pt he re for UA/UC due to low back ache, cloudy urine with sediment present X 1.5 weeks. pt given cipro 500mg BID pending culture. 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 Jono Pagan MD [address], [place], [address], [facility] 09/27/2021 13:13:14 09/28/2022 text/html [...] upper tract abnormality. Jono Pagan MD [address], [place], [address], [facility] 09/28/2022 13:48:55 04/28/2023 text/html [...] since the summer. Jono Pagan MD [address], [place], [address], [facility] 04/28/2023 12:27:52 11/01/2023 text/html [...] catheter when traveling. Jono Pagan MD [address], [place], [address], [facility] 11/01/2023 23:05:58
--- OUTSIDE RECORDS SUMMARY | 2024-05-13 08:02 | XMS_ITS | Clinical Summary ---
Author Organization [facility] Address [place], [place] [address] Care Team Providers Care Senior Principal Process Engineer Name Role Phone Goyoluis aAna Unavailable Alex Mata MD Primary Care Provider + Jak Keys HIRED HELP Unavailable [phone] Allergies Active Allergy Reactions Criticality Noted Date Comments Blood-Group Specific Substance Other - Describe In Comment Field 04/19/2021 Patient has Sims a (Fya) antibody. Blood products may be delayed. Draw patient 24 hours prior to transfusion. For 1RP Media testing, draw one red top and [...] (11/17/2023): 09/20/23 bilateral lower extremity arterial ultrasound ([facility]) S/P flap graft 03/06/2020 Neurogenic [...] Encounters Date Type Department Care Team Description 05/03/2024 Telephone [address] [facility] [address] [facility] [address] [place] [address] Adan Santos RN 03/12/2024 2:00 PM CDT Office Visit [facility] [address] [place] [address] Maria Guadalupe Smith MD CV Vascular Est (4 week follow up; PAD with non-healing RLE wounds. U/S scheduled prior) 03/12/2024 12:24 PM CDT - 03/12/2024 11:59 PM CDT Hospital Encounter [facility] [address] [place] [address] Maria Guadalupe Smith MD Leistner, Joseph S, R.TEdwin (ARRT) PAD (peripheral artery disease) (HC) 03/12/2024 Travel 02/13/2024 Refill [facility] [address] [place] [address] Maria Guadalupe Smith MD Refill Request from Last 3 Months Immunizations Name Administration [...] 02/02/2024 11:10 AM CDT Plan of Treatment Health Maintenance [...] 12/26/2008, 09/01/2006 Medical Devices Implanted Type Area Hotel Security Officer Device Identifier Shelf Expiration Date Model / Serial / Lot Standard Pacemaker-12/21 Implanted:11/23 by Judson Jenkins MD (Quantity not on file) Standard Pacemaker Med[employer]onic [id number] / [id number] / Procedures Procedure Name Priority Date/Time Associated Diagnosis Comments US ARTERIAL LOWER EXTREMITY W NHUNG BILATERAL Routine 03/12/2024 1:15 PM CDT PAD (peripheral artery disease) (HC) LIPID PANEL Early AM 07/14/2008 3:00 AM RADIAL ARM SAW OPERATOR from Last 3 Months or Most Recently Relevant to Health Maintenance Results * US ARTERIAL LOWER EXTREMITY W NHUNG BILATERAL (03/12/2024 1:15 PM CDT) Anatomical Region Laterality Modality LEGS Ultrasound 03/12/2024 12:3 4 PM CDT Narrative 03/12/2024 5:38 PM CDT VASCULAR ULTRASOUND REPORT MICHEAL FLETCHER Accession#: ?? [id number] : ?1955 ??Study Date: ?? 03/12/2024 12:34:00 PM Age: ?69 years ?? Tech: ? JSL Gender: M ?Referring MD: MARIA GUADALUPE SMITH Site: [facility] Study performed: ?Lower extremity (bilateral), [...] Velocity cm/s Phasicity ?? +--------+ + + BRANCH BILLING PAYROLL CLERK PRX ? 125 ? multiphasic +--------+ + + BRANCH BILLING PAYROLL CLERK DST ? 148 ? multiphasic +--------+ + + PFA ? 124 ? multiphasic +--------+ + + SFA PRX ? 126 ? multiphasic +--------+ + + SFA MID ? 147 ? multiphasic +--------+ + + SFA DST ? 157 ? multiphasic +--------+ + + RUSLAN PRX ? 60 ? multiphasic +--------+ + + RUSLAN DST ? 80 ? monophasic +--------+ + + BOOK REVIEWER DST ? 58 ? monophasic +--------+ + + DPA ? 49 ? monophasic +--------+ + + +--------+ + + LEFT ? Velocity cm/s Phasicity ?? +--------+ + + BRANCH BILLING PAYROLL CLERK PRX ? 94 ? multiphasic +--------+ + + BRANCH BILLING PAYROLL CLERK DST ? 171 ? multiphasic +--------+ + + PFA ? 110 ? multiphasic +--------+ + + SFA PRX ? 116 ? multiphasic +--------+ + + SFA MID ? 81 ? multiphasic +--------+ + + SFA DST ? 55 ? multiphasic +--------+ + + RUSLAN PRX ? 64 ? multiphasic +--------+ + + RUSLAN DST ? 55 ? multiphasic +--------+ + + BOOK REVIEWER DST ? 37 ? multiphasic +--------+ + [...] ? Index +-----+ +--------+ +-----+ 0.80 ?102 ?BOOK REVIEWER ?90 ? 0.71 +-----+ +--------+ +-----+ 0.94 ?120 ?DPA ?110 ? 0.87 +-----+ +--------+ +-----+ 0.63 ? 80 ? Digit 1 ?87 ? 0.69 +-----+ +--------+ +-----+ Paul Bishop MD. Electronically signed on 03/12/2024 5:38:31 PM This study was performed and interpreted by a service accredited by the Intersocietal Accreditation Commission (IAC/Vascular), [email or web address].org/vascular Report generated by [employer]ue. ??Final ?? Procedure Note Paul Bishop MD - 03/12/2024 VASCULAR ULTRASOUND REPORT MICHEAL FLETCHER : 1955 Study Date: 03/12/2024 12:34:00 PM Age: 69 years Tech: ALEXIS Gender: M Referring MD: MARIA GUADALUPE SMITH Site: [facility] Study performed: Lower extremity (bilateral), [...] RIGHT Velocity cm/s Phasicity +--------+ + + BRANCH BILLING PAYROLL CLERK PRX 125 multiphasic +--------+ + + BRANCH BILLING PAYROLL CLERK DST 148 multiphasic +--------+ + + PFA 124 multiphasic +--------+ + + SFA PRX 126 multiphasic +--------+ + + SFA MID 147 multiphasic +--------+ + + SFA DST 157 multiphasic +--------+ + + RUSLAN PRX 60 multiphasic +--------+ + + RUSLAN DST 80 monophasic +--------+ + + BOOK REVIEWER DST 58 monophasic +--------+ + + DPA 49 monophasic +--------+ + + +--------+ + + LEFT Velocity cm/s Phasicity +--------+ + + BRANCH BILLING PAYROLL CLERK PRX 94 multiphasic +--------+ + + BRANCH BILLING PAYROLL CLERK DST 171 multiphasic +--------+ + + PFA 110 multiphasic +--------+ + + SFA PRX 116 multiphasic +--------+ + + SFA MID 81 multiphasic +--------+ + + SFA DST 55 multiphasic +--------+ + + RUSLAN PRX 64 multiphasic +--------+ + + RUSLAN DST 55 multiphasic +--------+ + + BOOK REVIEWER DST 37 multiphasic +--------+ + + DPA 75 multiphasic +--------+ + + Criteria: Stenosis V. Ratio Mild <50% <2.0 Moderate 50-74% > or = 2.0 Severe 75-99% > or = 4.0 Occluded 100% no detectable flow Pressures +-----+ +--------+ +-----+ RIGHT (mmHg) LEFT (mmHg) +-----+ +--------+ +-----+ Index 124 Brachial 127 Index +-----+ +--------+ +-----+ 0.80 102 BOOK REVIEWER 90 0.71 +-----+ +--------+ +-----+ 0.94 120 DPA 110 0.87 +-----+ +--------+ +-----+ 0.63 80 Digit 1 87 0.69 +-----+ +--------+ +-----+ Paul Bishop MD. Electronically signed on 03/12/2024 5:38:31 PM This study was performed and interpreted by a service accredited by theIntersocietal Accreditation Commission (IAC/Vascular),www.intersocietal.org/vascular Report generated by DocVue. Final Maria Guadalupe Smith MD US * Lipid Panel - In AM (07/14/2008 3:00 AM RADIAL ARM SAW OPERATOR) CHOLESTEROL,TOTAL 141 110 - 199 mg/dL [facility] TRIGLYCERIDES 41 40 - 149 mg/dL [facility] HDL CHOLESTEROL 45 >40 mg/dL [facility] CHOL/HDL RATIO 3.13 <4.51 [facility] LDL CHOLESTEROL 88 <131 mg/dL [facility] PATIENT STATUS Fasting [facility] Blood specimen (specimen) BLOOD SPECIMEN / Unknown 07/14/2008 3:00 AM RADIAL ARM SAW OPERATOR 07/14/2008 1:52 AM RADIAL ARM SAW OPERATOR Phyllis Sánchez MD CHEMISTRY [facility] INTERNAL ZIP [phone] [address] from Last 3 Months or Most Recently [...] 12 months since positive culture): resides in acute/fci care, receiving hemodialysis, has chronic open wounds/skin [...] 6:44 AM 03/14/2016 5:37 PM Care Teams Senior Principal Process Engineer Relationship Specialty Start Date End Date Alex Mata MD [address] [place] [address] PCP - General Family Practice 02/04/20 Ana Mayers [address] [place] [address] Nurse Practitioner 03/02/11 Jak Keys NP [address] [place] [address] Nurse Practitioner Nurse Practitioner - Adult 10/30/23
== END 2024-05-13 08:00 | disposition home or self-care (01) ==
LOC: WOUND 07:59
PROVIDERS: PCP Family Medicine; Visit Provider Nurse Practitioner Family
DX: L89.894 Pressure ulcer of other site, stage 4 (principal); L89.314 Pressure ulcer of right buttock, stage 4; M86.671 Other chronic osteomyelitis, right ankle and foot; L89.614 Pressure ulcer of right heel, stage 4; L89.893 Pressure ulcer of other site, stage 3; S14.155S Other incomplete lesion at C5 level of cervical spinal cord, sequela; Z99.3 Dependence on wheelchair
CPT/HCPCS: 11042; 97597; G0277

== ENCOUNTER 2024-05-20 07:58 | Outpatient (CLI) | payer OTHER, SELFPAY ==
--- OUTSIDE RECORDS SUMMARY | 2024-05-20 08:00 | XMS_ITS | Data Portability ---
Author Organization [facility], [facility] Address [address] [facility] [address] [facility] [address] [place] [address] Care Team Providers Care Plastics Spreading Machine Operator Name Role Phone CHETNA MERAZ Primary Care Provider RAHUL OCONNOR Website Developer Assessment Encounter Date Assessment Date Assessment LastModified [...] None recorded. Lab culture, urine 2020 021 [facility], [address], [place], [address], 07:39:35 urinalysis, dipstick 2020 021 marie Not available 10/20/202 1 11:34:22 Referral None recorded. Procedures None recorded. Surgeries None recorded. Imaging US, kidney 2021 022 [facility], [address] [facility] [place], [address], 2 09:00:29 Medication Orders oxybutynin chloride ER 15 mg tablet,exte nded release 24 hr 2021 022 [facility] #05840, [address], [place], [place], [id number], 2 12:53:22 nitrofurant oin macrocrysta l 50 mg capsule [address] [facility]67669, [address], [place], [place], [id number], 4 08:10:56 nitrofurant oin macrocrysta l 50 mg capsule [address] [facility] #06170, [address], [place], [place], [id number], 4 08:10:56 oxybutynin chloride ER 15 mg tablet,exte nded release 24 hr 2022 023 [facility] #66999, [address] , [place], [place], [id number], 3 12:15:06 methenamine hippurate 1 gram tablet [address] [facility]14744, [address] , [place], [place], [id number], 4 23:05:30 methenamine hippurate 1 gram tablet 2023 024 [facility] #29374, [address] , [place], [place], [id number], 4 23:05:37 oxybutynin chloride ER 15 mg tablet,exte nded release 24 hr 2023 024 [facility]42, [address] , [place], [id number], 4 23:04:50 Patient TargetsNo targets recorded. Patient InstructionsNo instructions recorded. Reason for Referral None Reported. Results Created Date Observation Date Name Description Value Unit Range Abnormal Flag Note LastModifiedBy Organization Detail LastModifiedTime 05/12/2021 urina lysis , dipst ick Color-Status Yellow Not Available [facility] [address], [place], [address], 05/12/2021 11:33:40 05/12/2021 urina lysis , dipst ick Clarity-Stat us Cloudy Not Available [facility] [address], [place], [address], 05/12/2021 11:33:40 05/12/2021 urina lysis , dipst ick pH-Status 7.5 Not Available [facility] [address], [place], [address], 05/12/2021 11:33:40 05/12/2021 urina lysis , dipst ick Nitrates-Sta tus positi ve Not Available [facility] [address], [place], [address], 05/12/2021 11:33:40 05/12/2021 urina lysis , dipst ick Blood-Status Small Not Available [facility] [address], [place], [address], 05/12/2021 11:33:40 05/12/2021 urina lysis , dipst ick Leuko-Status Large Not Available [facility] [address], [place], [address], 05/12/2021 11:33:40 05/06/20 21 05/06/2021 URINE CULTU [...] y Type Sensi tivit y Coleen sis Ayden te 1 Ayden te 2 ----- ----- ----- ----- ----- [...] s Desk Refer ence or from the [facility] actur er. S= Susce ptibl e;I= Inter media te;R= Resis tant; ESBL= Resis tance due to confi rmed ESBL Not Available [facility] [address], [place], [address], 05/08/2021 07:39:35 10/07/19 22 10/05/2021 US, kidne y No observ ation record ed. [address] Radiology Department [address] [place], [address], 09/28/2022 13:47:50 Result Notes None recorded. Procedures Surgical History Date Name Laterality Status Provider Name and Address Organization Details Recorded Time 11/01/19 24 COMPLEX VISIT completed Jono Pagan MD [address], [place], [address], [facility] 11/01/2023 08:09:54 excision of pressure injury completed Jono Pagan MD [address], [place], [address], [facility] 09/28/2022 11:00:08 maintenance procedure for cardiac pacemaker system completed Veronika Begum [facility] 11/01/2023 11:05:10 Imaging Results Imaging Date Name Status LastModified by Organiz ation Details LastModified Time 10/05/2021 US, kidney completed [address] Radiology Department [address] [place], [address], 09/28/2022 13:47:50 Procedure Notes None recorded. Medical Equipment None Reported. Allergies Allergen ID Allergen Name Allergen Category Reaction Reaction Severity Criticality Documentation Date Start Date Code Code System Note Provider Name and Address Organization Details Recorded Time 321730 Medicinal product containin g cephalosp pao and acting as antibacte rial agent (product) medicatio n Not available Not available Not available 09/27/2021 71461 9009 SNOMED Nasreen hwang [facility] 12:43:20 562178 shellfish derived food,medi cation Not available Not available Not available 11/01/2023 [place] [facility] 11:03:08 Medications Name [...] Updated DateTime 09/28/2022 182.88 cm 19.4 kg/m2 44584.71 g Veronika Begum [facility] 09/28/2022 10:55:01 Date Recorded Body height Body mass index (BMI) Body weight Provider Name and Address Organization Details Last Updated DateTime 04/28/2023 182.88 cm 19.4 kg/m2 79288.71 g Mindy Malone [facility] 04/28/2023 11:39:29 Date Recorded Body height Body mass index (BMI) Body weight Provider Name and Address Organization Details Last Updated DateTime 10/12/2023 182.88 cm 19.4 kg/m2 75684.[address] [facility] 10/12/2023 12:26:19 Date Recorded Body height Body mass index (BMI) Body weight Provider Name and Address Organization Details Last Updated DateTime 11/01/2023 182.88 cm 18.7 kg/m2 [address]202.[address] [facility] 11/01/2023 11:02:57 Date Recorded Body height Body mass index (BMI) Body weight Provider Name and Address Organization Details Last Updated DateTime 05/06/2021 182.88 cm 19.4 kg/m2 [address]8435.[address] [facility] 05/06/2021 12:47:45 Date Recorded Body height Body mass index (BMI) Body weight Provider Name and Address Organization Details Last Updated DateTime 09/27/2021 182.88 cm 19.4 kg/m2 86469.71 g Nasreen Salas [facility] 09/27/2021 12:43:07 Social History Question Answer Notes LastModified by Organizat ion Details LastModified Time Tobacco Smoking Status [facility] 14:55:09 What Is [...] Not available 12:44:28 Medical History Condition Response Other N High Blood Pressure N Kidney Stones N Depression N Lung Disease N GERD/Acid Reflux N Sexually Transmitted Infection N Cancer N High Cholesterol N Diabetes N Bleeding Disorder N Heart Disease N Immunizations Vaccine Type Date Status Provider Name and Address Organization Details Recorded Time IPV 11/19/[address] [facility] 04/28/2023 11:39:35 COVID-19, mRNA, LNP-S, PF, 30 mcg/0.3 mL dose 08/20/2020 [facility] 04/28/2023 11:39:35 COVID-19, mRNA, LNP-S, PF, 30 mcg/0.3 mL dose 09/14/[address] [facility] 04/28/2023 11:39:35 Pneumococcal conjugate PCV20, polysaccharide [id number] conjugate, adjuvant, PF 12/01/2022 completed Mindy hwang [facility] 04/28/2023 11:39:35 influenza, unspecified formulation 05/24/2006 maki hwang [facility] 04/28/2023 11:39:35 Tdap 09/01/2006 [facility]aki [facility]wang [facility] 04/28/2023 11:39:35 Tdap 12/26/2008 [facility]aki [facility]wang [facility] 04/28/2023 11:39:35 zoster live 01/29/2015 completed Mindy hwang, [facility] 04/28/2023 11:39:35 Influenza, split virus, trivalent, PF 03/25/2011 completed Mindy Malone null, [facility] 04/28/2023 11:39:35 Influenza, split virus, trivalent, PF 05/24/2012 completed Mindy hwang, [facility] 04/28/2023 11:39:35 Td (adult), 2 Lf tetanus toxoid, preservative free, adsorbed 03/21/1997 completed Mindy hwang, [facility] 04/28/2023 11:39:35 Hep B, adult 09/01/2006 completed Mindy hwang, [facility] 04/28/2023 11:39:35 Hep B, adult 11/19/2004 completed Mindy hwang, [facility] 04/28/2023 11:39:35 Hep B, adult 03/30/2007 completed Mindy hwang, [facility] 04/28/2023 11:39:35 Hep A, adult 09/30/2002 completed Mindy hwang, [facility] 04/28/2023 11:39:35 Hep A, adult 11/19/2004 completed Mindy hwang, [facility] 04/28/2023 11:39:35 Hep A, adult 05/01/2003 completed Mindy hwang [facility] 04/28/2023 11:39:35 typhoid, ViCPs 09/01/2006 completed Mindy hwang, [facility] 04/28/2023 11:39:35 typhoid, ViCPs 09/30/2002 completed Mindy hwang, [facility] 04/28/2023 11:39:35 Past Encounters Encounter ID Performer Location Encounter Start Date Encounter Closed Date Diagnosis/Indication Diagnosis SNOMED-CT Code Diagnosis ICD10 Code [id number] Jono Pagan MD [facility] [address] [place] [address] 02/18/2021 14:23:42 02/19/2021 12:13:21 Neurogenic urinary bladder 457235781 N31.9 Spinal cord injury 89646 004 G95.89 Spasm of u rinary bladder 585587526 N32.89 Recurrent urinary tract infection 456001491 N39.0 Acute urin estefany tract infection 735582295 N39.0 [id number] Marlene Greer [facility] [address] [place] [address] 05/06/2021 11:58:15 05/11/2021 03:52:30 Abnormal urine 266043564 R82.90 [id number] Jono Pagan MD [facility] [address] [place] [address] 09/27/2021 12:37:54 10/27/2021 09:29:43 Neurogenic urinary bladder 100570956 N31.9 Spinal cord injury 46107 004 G95.89 Spasm of u rinary bladder 297423572 N32.89 Recurrent urinary tract infection 811556275 N39.0 [id number] Jono Pagan MD [facility] [address] [place] [address] 09/28/2022 10:53:21 10/01/2022 11:26:52 Neurogenic urinary bladder 809868708 N31.9 Spinal cord injury 65350 004 G95.89 Spasm of u rinary bladder 591309075 N32.89 Recurrent urinary tract infection 640638473 N39.0 [id number] Jono Pagan MD [facility] [address] [place] [address] 04/28/2023 11:30:11 05/04/2023 11:13:13 Neurogenic urinary bladder 379171396 N31.9 Spinal cord injury 16749 004 G95.89 Spasm of u rinary bladder 060743175 N32.89 Recurrent urinary tract infection 101825375 N39.0 [id number] Jono Pagan MD [facility] [address] [place] [address] 11/01/2023 10:52:02 11/02/2023 14:01:41 Neurogenic urinary bladder 157508542 N31.9 Spinal cord injury 41004 004 G95.89 Spasm of u rinary bladder 650078820 N32.89 Recurrent urinary tract infection 798549948 N39.0 Health Concerns Section Related Observation LastModified by Organization Detai ls LastModified Time None Recorded Concern Status LastModified by Organization Details LastModified Time None Recorded Advance Directives Directive None Recorded Payers Encounter Date Sequence Insurance Name Policy Number Policy Quinones Covered Member ID Quinones Member ID Guarantor Name 05/06/2021 [facility] [employer] [facility] [id number] GLO Khanh C [place] 09/27/2021 1 [facility] (MEDICARE REPLACEMENT/AD VANTAGE - PPO) [id number] Khanh C [place] [id number] Khanh C [place] 09/28/2022 [facility] [employer] [id number] GLO Khanh C [place] 04/28/2023 1 [facility] (MEDICARE REPLACEMENT/AD VANTAGE - PPO) [id number] Khanh C [place] [id number] Khanh C [place] 11/01/2023 [facility] [employer] [facility] [id number] GLO Khanh Rene Notes Date Note Type Note Provider Name and Address Organization Details Recorded Time 05/06/2021 text/html HPI Notes: Pt he re for UA/UC due to low back ache, cloudy urine with sediment present X 1.5 weeks. pt given cipro 500mg BID pending culture. 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 Jono Pagan MD [address], [place], [address], [facility] 09/27/2021 13:13:14 09/28/2022 text/html [...] upper tract abnormality. Jono Pagan MD [address], [place], [address], [facility] 09/28/2022 13:48:55 04/28/2023 text/html [...] since the summer. Jono Pagan MD [address] [facility], [place], [address], [facility] 04/28/2023 12:27:52 11/01/2023 text/html [...] catheter when traveling. Jono Pagan MD [address], [place], [address], [facility] 11/01/2023 23:05:58
--- OUTSIDE RECORDS SUMMARY | 2024-05-20 08:00 | XMS_ITS | Clinical Summary ---
Author Organization [employer] [facility] Address [place], [place] [address] Care Team Providers Care Flight Surgeon Name Role Phone Goyoluis aAna Unavailable Alex Mata MD Primary Care Provider + Jak Keys VOICE STUDIES DIRECTOR Unavailable Allergies Active Allergy Reactions Criticality Noted Date Comments Blood-Group Specific Substance Other - Describe In Comment Field 04/19/2021 Patient has Sims a (Fya) antibody. Blood products may be delayed. Draw patient 24 hours prior to transfusion. For Therapeutic Monitoring Services testing, draw one red top and two [...] (11/17/2023): 09/20/23 bilateral lower extremity arterial ultrasound (New [...] Type Department Care Team Description 05/03/2024 Telephone Therapeutic Monitoring Services [facility] [address] [facility] [address] [place] [address] Adan Santos RN 03/12/2024 2:00 PM CDT Office Visit [facility] [place] [address] [place] [address] Maria Guadalupe Smith MD CV Vascular Est (4 week follow up; PAD with non-healing RLE wounds. U/S scheduled prior) 03/12/2024 12:24 PM CDT - 03/12/2024 11:59 PM CDT Hospital Encounter [facility] [address] [place] [address] Maria Guadalupe Smith MD Leistner, Joseph S, R.T. (ARRT) PAD (peripheral artery disease) (HC) 03/12/2024 Travel from Last 3 Months Immunizations Name [...] 09/01/2006 Medical Devices Implanted Type Area Supervisor [employer] Device Identifier Shelf Expiration Date Model / Serial / Lot Standard Pacemaker-12/21 Implanted:/07/2012 by Judson Jenkins MD (Quantity not on file) Standard Pacemaker Medtronic [id number] / [id number] / Procedures Procedure Name Priority Date/Time Associated Diagnosis Comments US ARTERIAL LOWER EXTREMITY W NHUNG BILATERAL Routine 03/12/2024 1:15 PM CDT PAD (peripheral artery disease) (HC) LIPID PANEL Early AM 07/14/2008 3:00 AM LOADING MACHINE OPERATOR HELPER from Last 3 Months or Most Recently Relevant to Health Maintenance Results * US ARTERIAL LOWER EXTREMITY W NHUNG BILATERAL (03/12/2024 1:15 PM CDT) Anatomical Region Laterality Modality LEGS Ultrasound 03/12/2024 12:3 4 PM CDT Narrative 03/12/2024 5:38 PM CDT VASCULAR ULTRASOUND REPORT MICHEAL FLETCHER Accession#: ?? [id number] : ?1955 ??Study Date: ?? 03/12/2024 12:34:00 PM Age: ?69 years ?? Tech: ? JSL Gender: M ?Referring MD: MARIA GUADALUPE SMITH Site: [facility] Study performed: ?Lower extremity (bilateral), [...] study 12/13/2023, Increased rightTBI. FINDINGS: Borderline right NHNUG and mild left NHUNG. Mild bilateral TBI. No stenosis detected bilaterally. Right toe/brachial index indicates mild range. Left toe/brachial index indicates mild range. +--------+ + + RIGHT ?? Velocity cm/s Phasicity ?? +--------+ + + PLOW MECHANIC PRX ? 125 ? multiphasic +--------+ + + PLOW MECHANIC DST ? 148 ? multiphasic +--------+ + + PFA ? 124 ? multiphasic +--------+ + + SFA PRX ? 126 ? multiphasic +--------+ + + SFA MID ? 147 ? multiphasic +--------+ + + SFA DST ? 157 ? multiphasic +--------+ + + RUSLAN PRX ? 60 ? multiphasic +--------+ + + RUSLAN DST ? 80 ? monophasic +--------+ + + SHOULDER SAWYER DST ? 58 ? monophasic +--------+ + + DPA ? 49 ? monophasic +--------+ + + +--------+ + + LEFT ? Velocity cm/s Phasicity ?? +--------+ + + PLOW MECHANIC PRX ? 94 ? multiphasic +--------+ + + PLOW MECHANIC DST ? 171 ? multiphasic +--------+ + + PFA ? 110 ? multiphasic +--------+ + + SFA PRX ? 116 ? multiphasic +--------+ + + SFA MID ? 81 ? multiphasic +--------+ + + SFA DST ? 55 ? multiphasic +--------+ + + RUSLAN PRX ? 64 ? multiphasic +--------+ + + RUSLAN DST ? 55 ? multiphasic +--------+ + + SHOULDER SAWYER DST ? 37 ? multiphasic +--------+ + [...] ? Index +-----+ +--------+ +-----+ 0.80 ?102 ?SHOULDER SAWYER ?90 ? 0.71 +-----+ +--------+ +-----+ 0.94 ?120 ?DPA ?110 ? 0.87 +-----+ +--------+ +-----+ 0.63 ? 80 ? Digit 1 ?87 ? 0.69 +-----+ +--------+ +-----+ Paul Bishop MD. Electronically signed on 03/12/2024 5:38:31 PM This study was performed and interpreted by a service accredited by the Intersocietal Accreditation Commission (IAC/Vascular), [email or web address]/vascular Report generated by [facility]. ??Final ?? Procedure Note Paul Bishop MD - 03/12/2024 VASCULAR ULTRASOUND REPORT MICHEAL FLETCHER : 1955 Study Date: 03/12/2024 12:34:00 PM Age: 69 years Tech: ALEXIS Gender: M Referring MD: MARIA GUADALUPE SMITH Site: [facility] Study performed: Lower extremity (bilateral), [...] RIGHT Velocity cm/s Phasicity +--------+ + + PLOW MECHANIC PRX 125 multiphasic +--------+ + + PLOW MECHANIC DST 148 multiphasic +--------+ + + PFA 124 multiphasic +--------+ + + SFA PRX 126 multiphasic +--------+ + + SFA MID 147 multiphasic +--------+ + + SFA DST 157 multiphasic +--------+ + + RUSLAN PRX 60 multiphasic +--------+ + + RUSLAN DST 80 monophasic +--------+ + + SHOULDER SAWYER DST 58 monophasic +--------+ + + DPA 49 monophasic +--------+ + + +--------+ + + LEFT Velocity cm/s Phasicity +--------+ + + PLOW MECHANIC PRX 94 multiphasic +--------+ + + PLOW MECHANIC DST 171 multiphasic +--------+ + + PFA 110 multiphasic +--------+ + + SFA PRX 116 multiphasic +--------+ + + SFA MID 81 multiphasic +--------+ + + SFA DST 55 multiphasic +--------+ + + RUSLAN PRX 64 multiphasic +--------+ + + RUSLAN DST 55 multiphasic +--------+ + + SHOULDER SAWYER DST 37 multiphasic +--------+ + + DPA 75 multiphasic +--------+ + + Criteria: Stenosis V. Ratio Mild <50% <2.0 Moderate 50-74% > or = 2.0 Severe 75-99% > or = 4.0 Occluded 100% no detectable flow Pressures +-----+ +--------+ +-----+ RIGHT (mmHg) LEFT (mmHg) +-----+ +--------+ +-----+ Index 124 Brachial 127 Index +-----+ +--------+ +-----+ 0.80 102 SHOULDER SAWYER 90 0.71 +-----+ +--------+ +-----+ 0.94 120 DPA 110 0.87 +-----+ +--------+ +-----+ 0.63 80 Digit 1 87 0.69 +-----+ +--------+ +-----+ Paul Bishop MD. Electronically signed on 03/12/2024 5:38:31 PM This study was performed and interpreted by a service accredited by theIntersocietal Accreditation Commission (IAC/Vascular),[email or web address]/vascular Report generated by [facility]. Final Maria Guadalupe Smith MD US * Lipid Panel - In AM (07/14/2008 3:00 AM LOADING MACHINE OPERATOR HELPER) CHOLESTEROL,TOTAL 141 110 - 199 mg/dL [facility] TRIGLYCERIDES 41 40 - 149 mg/dL [facility] HDL CHOLESTEROL 45 >40 mg/dL [facility] CHOL/HDL RATIO 3.13 <4.51 [facility] LDL CHOLESTEROL 88 <131 mg/dL [facility] PATIENT STATUS Fasting [facility] Blood specimen (specimen) BLOOD SPECIMEN / Unknown 07/14/2008 3:00 AM LOADING MACHINE OPERATOR HELPER 07/14/2008 1:52 AM LOADING MACHINE OPERATOR HELPER Phyllis Sánchez MD CHEMISTRY [facility] INTERNAL ZIP [phone] [address] from Last 3 Months or Most Recently [...] 6:44 AM 03/14/2016 5:37 PM Care Teams Flight Surgeon Relationship Specialty Start Date End Date Alex Mata MD [address] [place] [address] PCP - General Family Practice 02/04/20 Ana Mayers [address] [place] [id number] Nurse Practitioner 03/02/11 Jak Keys NP [facility] [address] [address] Nurse Practitioner Nurse Practitioner - Adult 10/30/23
== END 2024-05-20 07:59 | disposition home or self-care (01) ==
LOC: WOUND 07:58
PROVIDERS: PCP Family Medicine; Visit Provider Nurse Practitioner Family
DX: M86.671 Other chronic osteomyelitis, right ankle and foot (principal); L89.614 Pressure ulcer of right heel, stage 4; L89.623 Pressure ulcer of left heel, stage 3; L89.894 Pressure ulcer of other site, stage 4; L89.314 Pressure ulcer of right buttock, stage 4; L30.4 Erythema intertrigo; S14.155S Other incomplete lesion at C5 level of cervical spinal cord, sequela; Z99.3 Dependence on wheelchair
CPT/HCPCS: 11042; 11045; 15271; 97597; G0277; Q4201

== ENCOUNTER 2024-05-23 08:00 | Outpatient (RCR) | payer OTHER, SELFPAY | END 2024-05-23 23:59 | disposition home or self-care (01) | LOC: WOUND 08:00 | PROVIDERS: PCP Family Medicine; Visit Provider Nurse Practitioner Family | DX: M86.671 Other chronic osteomyelitis, right ankle and foot (principal); L89.614 Pressure ulcer of right heel, stage 4; L89.894 Pressure ulcer of other site, stage 4; L89.314 Pressure ulcer of right buttock, stage 4; L89.893 Pressure ulcer of other site, stage 3; L89.623 Pressure ulcer of left heel, stage 3; S14.155S Other incomplete lesion at C5 level of cervical spinal cord, sequela; I73.9 Peripheral vascular disease, unspecified; L30.4 Erythema intertrigo; Z99.3 Dependence on wheelchair | CPT/HCPCS: G0277 ==

== ENCOUNTER 2024-05-27 07:56 | Outpatient (CLI) | payer OTHER, SELFPAY ==
--- OUTSIDE RECORDS SUMMARY | 2024-05-27 07:58 | XMS_ITS | Clinical Summary ---
Author Organization [employer] [facility] Address [place], [place] [address] Care Team Providers Care Renewals Specialist Name Role Phone Goyoluis aAna Unavailable Alex Mata MD Primary Care Provider + Jak Keys ACTIVITY ASSISTANT Unavailable [phone] Allergies Active Allergy Reactions Criticality Noted Date Comments Blood-Group Specific Substance Other - Describe In Comment Field 04/19/2021 Patient has Sims a (Fya) antibody. Blood products may be delayed. Draw patient 24 hours prior to transfusion. For Wally testing, draw one red top and two [...] (11/17/2023): 09/20/23 bilateral lower extremity arterial ultrasound ([facility]) S/P flap graft 03/06/2020 Neurogenic orthostatic [...] Type Department Care Team Description 05/03/2024 Telephone Wally [facility] [address] [facility] [address] [place] [address] Adan Santos RN 03/12/2024 2:00 PM CDT Office Visit [facility] [address] [place] [address] Maria Guadalupe Smith MD CV Vascular Est (4 week follow up; PAD with non-healing RLE wounds. U/S scheduled prior) 03/12/2024 12:24 PM CDT - 03/12/2024 11:59 PM CDT Hospital Encounter [facility] [address] [place] [address] Maria Guadalupe Smith MD Leistner, Joseph S, [...] 12/26/2008, 09/01/2006 Medical Devices Implanted Type Area Casting Assistant Device Identifier Shelf Expiration Date Model / Serial / Lot Standard Pacemaker-12/21 Implanted:/07/2012 by Judson Jenkins MD (Quantity not on file) Standard Pacemaker Medtronic [id number] / [id number] / Procedures Procedure Name Priority Date/Time Associated Diagnosis Comments US ARTERIAL LOWER EXTREMITY W NHUNG BILATERAL Routine 03/12/2024 1:15 PM CDT PAD (peripheral artery disease) (HC) LIPID PANEL Early AM 07/14/2008 3:00 AM MANAGER CAMP from Last 3 Months or Most Recently Relevant to Health Maintenance Results * US ARTERIAL LOWER EXTREMITY W NHUNG BILATERAL (03/12/2024 1:15 PM CDT) Anatomical Region Laterality Modality LEGS Ultrasound 03/12/2024 12:3 4 PM CDT Narrative 03/12/2024 5:38 PM CDT VASCULAR ULTRASOUND REPORT MICHEAL FLETCHER Accession#: ?? [id number] : ?[id number] ??Study Date: ?? 03/12/2024 12:34:00 PM Age: ?69 years ?? Tech: ? JSL Gender: M ?Referring MD: MARIA GUADALUPE SMITH Site: [facility] Study performed: ?Lower extremity (bilateral), [...] Velocity cm/s Phasicity ?? +--------+ + + ELECTRIC BATH ATTENDANT PRX ? 125 ? multiphasic +--------+ + + ELECTRIC BATH ATTENDANT DST ? 148 ? multiphasic +--------+ + + PFA ? 124 ? multiphasic +--------+ + + SFA PRX ? 126 ? multiphasic +--------+ + + SFA MID ? 147 ? multiphasic +--------+ + + SFA DST ? 157 ? multiphasic +--------+ + + RUSLAN PRX ? 60 ? multiphasic +--------+ + + RUSLAN DST ? 80 ? monophasic +--------+ + + WORKDAY MANAGER DST ? 58 ? monophasic +--------+ + + DPA ? 49 ? monophasic +--------+ + + +--------+ + + LEFT ? Velocity cm/s Phasicity ?? +--------+ + + ELECTRIC BATH ATTENDANT PRX ? 94 ? multiphasic +--------+ + + ELECTRIC BATH ATTENDANT DST ? 171 ? multiphasic +--------+ + + PFA ? 110 ? multiphasic +--------+ + + SFA PRX ? 116 ? multiphasic +--------+ + + SFA MID ? 81 ? multiphasic +--------+ + + SFA DST ? 55 ? multiphasic +--------+ + + RUSLAN PRX ? 64 ? multiphasic +--------+ + + RUSLAN DST ? 55 ? multiphasic +--------+ + + WORKDAY MANAGER DST ? 37 ? multiphasic +--------+ + [...] ? Index +-----+ +--------+ +-----+ 0.80 ?102 ?WORKDAY MANAGER ?90 ? 0.71 +-----+ +--------+ +-----+ 0.94 ?120 ?DPA ?110 ? 0.87 +-----+ +--------+ +-----+ 0.63 ? 80 ? Digit 1 ?87 ? 0.69 +-----+ +--------+ +-----+ Paul Bishop MD. Electronically signed on 03/12/2024 5:38:31 PM This study was performed and interpreted by a service accredited by the Intersocietal Accreditation Commission (IAC/Vascular), [email or web address] Report generated by [employer]. ??Final ?? Procedure Note Paul Bishop MD - 03/12/2024 VASCULAR ULTRASOUND REPORT MICHEAL FLETCHER : 1955 Study Date: 03/12/2024 12:34:00 PM Age: 69 years Tech: ALEXIS Gender: M Referring MD: MARIA GUADALUPE SMITH Site: [facility] Vascular Center Study performed: Lower extremity (bilateral), [...] RIGHT Velocity cm/s Phasicity +--------+ + + ELECTRIC BATH ATTENDANT PRX 125 multiphasic +--------+ + + ELECTRIC BATH ATTENDANT DST 148 multiphasic +--------+ + + PFA 124 multiphasic +--------+ + + SFA PRX 126 multiphasic +--------+ + + SFA MID 147 multiphasic +--------+ + + SFA DST 157 multiphasic +--------+ + + RUSLAN PRX 60 multiphasic +--------+ + + RUSLAN DST 80 monophasic +--------+ + + WORKDAY MANAGER DST 58 monophasic +--------+ + + DPA 49 monophasic +--------+ + + +--------+ + + LEFT Velocity cm/s Phasicity +--------+ + + ELECTRIC BATH ATTENDANT PRX 94 multiphasic +--------+ + + ELECTRIC BATH ATTENDANT DST 171 multiphasic +--------+ + + PFA 110 multiphasic +--------+ + + SFA PRX 116 multiphasic +--------+ + + SFA MID 81 multiphasic +--------+ + + SFA DST 55 multiphasic +--------+ + + RUSLAN PRX 64 multiphasic +--------+ + + RUSLAN DST 55 multiphasic +--------+ + + WORKDAY MANAGER DST 37 multiphasic +--------+ + + DPA 75 multiphasic +--------+ + + Criteria: Stenosis V. Ratio Mild <50% <2.0 Moderate 50-74% > or = 2.0 Severe 75-99% > or = 4.0 Occluded 100% no detectable flow Pressures +-----+ +--------+ +-----+ RIGHT (mmHg) LEFT (mmHg) +-----+ +--------+ +-----+ Index 124 Brachial 127 Index +-----+ +--------+ +-----+ 0.80 102 WORKDAY MANAGER 90 0.71 +-----+ +--------+ +-----+ 0.94 120 DPA 110 0.87 +-----+ +--------+ +-----+ 0.63 80 Digit 1 87 0.69 +-----+ +--------+ +-----+ Paul Bishop MD. Electronically signed on 03/12/2024 5:38:31 PM This study was performed and interpreted by a service accredited by theIntersocietal Accreditation Commission (IAC/Vascular),[email or web address] Report generated by [employer]. Final Maria Guadalupe Smith MD US * Lipid Panel - In AM (07/14/2008 3:00 AM MANAGER CAMP) CHOLESTEROL,TOTAL 141 110 - 199 mg/dL [facility] TRIGLYCERIDES 41 40 - 149 mg/dL [facility] HDL CHOLESTEROL 45 >40 mg/dL [facility] CHOL/HDL RATIO 3.13 <4.51 [facility] LDL CHOLESTEROL 88 <131 mg/dL [facility] PATIENT STATUS Fasting [facility] Blood specimen (specimen) BLOOD SPECIMEN / Unknown 07/14/2008 3:00 AM MANAGER CAMP 07/14/2008 1:52 AM MANAGER CAMP Phyllis Sánchez MD CHEMISTRY [facility] INTERNAL ZIP [id number] [address] from Last 3 Months or Most Recently [...] 6:44 AM 03/14/2016 5:37 PM Care Teams Renewals Specialist Relationship Specialty Start Date End Date Alex Mata MD [address] [place] [address] PCP - General Family Practice 02/04/20 Ana Mayers [address] [place] [address] Nurse Practitioner 03/02/11 Jak Keys NP [facility] [address] [address] Nurse Practitioner Nurse Practitioner - Adult 10/30/23
== END 2024-05-27 07:57 | disposition home or self-care (01) ==
LOC: WOUND 07:56
PROVIDERS: PCP Family Medicine; Visit Provider Family Medicine
DX: M86.671 Other chronic osteomyelitis, right ankle and foot (principal); L89.614 Pressure ulcer of right heel, stage 4; L89.893 Pressure ulcer of other site, stage 3; L89.314 Pressure ulcer of right buttock, stage 4; L89.899 Pressure ulcer of other site, unspecified stage; S14.155S Other incomplete lesion at C5 level of cervical spinal cord, sequela; Z99.3 Dependence on wheelchair
CPT/HCPCS: 11042; 11045; G0277

== ENCOUNTER 2024-06-11 13:25 | Outpatient (CLI) | payer MEDICARE, SELFPAY ==
--- OUTSIDE RECORDS SUMMARY | 2024-06-14 14:24 | XMS_ITS | Clinical Summary ---
Author Organization [employer] [facility] Address [place], [place] [address] Care Team Providers Care Clearing Inspector Name Role Phone Goyoluis aAna Unavailable Alex Mata MD Primary Care Provider + Jak Keys HONING MACHINE OPERATOR SEMIAUTOMATIC Unavailable [phone] Allergies Active Allergy Reactions Criticality Noted Date Comments Blood-Group Specific Substance Other - Describe In Comment Field 04/19/2021 Patient has Sims a (Fya) antibody. Blood products may be delayed. Draw patient 24 hours prior to transfusion. For Vator testing, draw one red top and two [...] (11/17/2023): 09/20/23 bilateral lower extremity arterial ultrasound ([facility]) S/P flap graft 03/06/2020 Neurogenic [...] Type Department Care Team Description 05/03/2024 Telephone [facility] [address] [facility] [address] [place] [address] Adan Santos RN from Last 3 Months Immunizations Name Administration [...] 60 03/12/2024 1:08 PM CDT Temperature 36.4 C (97.5 F) 02/03/2024 8:05 AM CDT Respiratory Rate 16 03/12/2024 1:08 PM CDT [...] 12/26/2008, 09/01/2006 Medical Devices Implanted Type Area Mid Level Game Designer Device Identifier Shelf Expiration Date Model / Serial / Lot Standard Pacemaker-12/21 Implanted:11/23 by Judson Jenkins MD (Quantity not on file) Standard Pacemaker Medtronic ADDRL1 / [id number] / Procedures Procedure Name Priority Date/Time Associated Diagnosis Comments LIPID PANEL Early AM 07/14/2008 3:00 AM TRACK PRODUCTION ENGINEER from Last 3 Months or Most Recently Relevant to Health Maintenance Results * Lipid Panel - In AM (07/14/2008 3:00 AM TRACK PRODUCTION ENGINEER) CHOLESTEROL,TOTAL 141 110 - 199 mg/dL [facility] TRIGLYCERIDES 41 40 - 149 mg/dL [facility] HDL CHOLESTEROL 45 >40 mg/dL [facility] CHOL/HDL RATIO 3.13 <4.51 [facility] LDL CHOLESTEROL 88 <131 mg/dL [facility] PATIENT STATUS Fasting [facility] Blood specimen (specimen) BLOOD SPECIMEN / Unknown 07/14/2008 3:00 AM TRACK PRODUCTION ENGINEER 07/14/2008 1:52 AM TRACK PRODUCTION ENGINEER Phyllis Sánchez MD CHEMISTRY [facility] INTERNAL ZIP [phone] [address] from Last 3 Months or Most Recently [...] 6:44 AM 03/14/2016 5:37 PM Care Teams Clearing Inspector Relationship Specialty Start Date End Date Alex Mata MD [address] [place] [address] PCP - General Family Practice 02/04/20 Ana Mayers [address] [place] [address] Nurse Practitioner 03/02/11 Jak Keys NP [address] [place] [address] Nurse Practitioner Nurse Practitioner - Adult 10/30/23
--- OUTSIDE RECORDS SUMMARY | 2024-06-14 14:25 | XMS_ITS | Data Portability ---
Author Organization [facility], [facility] Address [address] [place] [address] Care Team Providers Care Front End Manager Name Role Phone RAHUL OCONNOR Screener Operator [phone] Assessment Encounter Date Assessment Date Assessment LastModified by Organization Details LastModified Time 09/27/2021 09/27/2021 65 yoM with history of neurogenic bladder secondary to spinal cord injury. carole Not available 09/27/2021 12:51:04 09/28/2022 09/28/2022 67 yoM with history of neurogenic bladder secondary to spinal cord injury. carole Not available 09/28/2022 09:12:48 04/28/2023 04/28/2023 68 yoM with history of neurogenic bladder secondary to spinal cord injury. jay Not available 04/27/2023 11:18:34 11/01/2023 11/01/2023 68 yoM with history of neurogenic bladder secondary to spinal cord injury. rstromquist Not available 10/30/2023 17:24:07 Plan of Treatment Reminders Order Date Submit Date Provider Last Modified By Organization Details Last Modified Time Details Appointments ESTABLISH ED 10 2024 02:50P M Jono Pagan MD Not available Not available Not available Lab culture, urine 2020 021 [facility], [address], [place], [address], 05/08/2021 07:39:35 urinalysi s, dipstick 2020 021 marie Not available 05/12/2021 11:34:22 Referral None recorded. Procedures None recorded. Surgeries None recorded. Imaging US, kidney 2021 022 [facility], [address] [place], [address], 10/06/2021 09:00:29 Medication Orders oxybutyni n chloride ER 15 mg tablet,ex tended release 24 hr 2021 022 [facility], [address] , [place], [place], [id number], 09/27/2021 12:53:22 nitrofura ntoin macrocrys tori 50 mg capsule [address] [facility]65, [address] , [place], [place], [id number], 11/01/2023 08:10:56 nitrofura ntoin macrocrys tori 50 mg capsule [address] [facility]10502, [address] , [place], [place], [id number], 11/01/2023 08:10:56 oxybutyni n chloride ER 15 mg tablet,ex tended release 24 hr 2022 023 [facility] #66193, [address] [facility], [place], [place], [id number], 04/28/2023 12:15:06 methenami ne hippurate 1 gram tablet [address] [facility]17792, [address] [place], [place], [id number], 11/01/2023 23:05:30 methenami ne hippurate 1 gram tablet 2023 024 [facility] #52960, [address] [place] [address], [id number], 11/01/2023 23:05:37 oxybutyni n chloride ER 15 mg tablet,ex tended release 24 hr 2023 024 [facility]958, [address], [place], [place], [id number], 11/01/2023 23:04:50 Patient TargetsNo targets recorded. Patient InstructionsNo instructions recorded. Reason for Referral None Reported. Results Created Date Observation Date Name Description Value Unit Range Abnormal Flag Note LastModifiedBy Organization Detail LastModifiedTime 05/12/2021 urina lysis , dipst ick Color-Status Yellow Not Available [facility] [address], [place], [address], 05/12/2021 11:33:40 05/12/2021 urina lysis , dipst ick Clarity-Stat us Cloudy Not Available [facility] [address], [place], [address], 05/12/2021 11:33:40 05/12/2021 urina lysis , dipst ick pH-Status 7.5 Not Available [facility] [address], [place], [address], 05/12/2021 11:33:40 05/12/2021 urina lysis , dipst ick Nitrates-Sta tus positi ve Not Available [facility] [address], [place], [address], 05/12/2021 11:33:40 05/12/2021 urina lysis , dipst ick Blood-Status Small Not Available [facility] [address], [place], [address], 05/12/2021 11:33:40 05/12/2021 urina lysis , dipst ick Leuko-Status Large Not Available [facility] [address], [place], [address], 05/12/2021 11:33:40 05/06/20 21 05/06/2021 URINE CULTU RE final report MICROB IOLOGY RESULT S abnormal SOURC E Void KNOWN ALLER GIES nkda TREAT MENT n/a MEDIA PLATE D AT: Media plate d on 05/06 @ 4:57 PM COLON Y COUNT >100, 000 cfu/m l RESUL T Prote us vulga ris (Isol ate 1) RESUL T Prote us vulga ris (Isol ate 2)-Di ffere nt Morph ologi c and Sensi tivit y Type Sensi tivit y [place] sis [place] te 1 [place] te 2 ----- ----- ----- ----- ----- [...] yun usage of the drugs . Infor rah n on doxyc yclin e and minoc yclin e can be found in the Physi elle' s Desk Refer ence or from the [facility] actur er. S= Susce ptibl e;I= Inter media te;R= Resis tant; ESBL= Resis tance due to confi rmed ESBL Not Available [facility] [address] [facility] [address], [place], [address], 05/08/2021 07:39:35 10/07/19 22 10/05/2021 US, kidne y No observ ation record ed. [address] Radiology Department [address] [place], [address], 09/28/2022 13:47:50 Result Notes None recorded. Procedures Surgical History Date Name Laterality Status Provider Name and Address Organization Details Recorded Time 11/01/19 24 COMPLEX VISIT completed Jono Pagan MD [address] [facility],[address], [place], [address], [facility] 11/01/2023 08:09:54 excision of pressure injury completed Jono Pagan MD [address] [facility],[address], [place], [address], [facility] 09/28/2022 11:00:08 maintenance procedure for cardiac pacemaker system completed Veronika Begum [facility] 11/01/2023 11:05:10 Imaging Results Imaging Date Name Status LastModified by Organiz ation Details LastModified Time 10/05/2021 US, kidney completed [address] Radiology Department [address] [place], [address], 09/28/2022 13:47:50 Procedure Notes None recorded. Medical Equipment None Reported. Allergies Allergen ID Allergen Name Allergen Category Reaction Reaction Severity Criticality Documentation Date Start Date Code Code System Note Provider Name and Address Organization Details Recorded Time 743330 Medicinal product containin g cephalosp pao and acting as antibacte rial agent (product) medicatio n Not available Not available Not available 09/27/2021 48350 9009 SNOMED Nasreen hwang [facility] 12:43:20 428440 shellfish derived food,medi cation Not available Not available Not available 11/01/2023 61077 UNK Veronika Kotharilorettadean ayla hwang [place] [facility] [place] [facility] 4 11:03:08 Medications Name Sig Start [...] Updated DateTime 09/28/2022 182.88 cm 19.4 kg/m2 32674.71 g Veronika Begum [facility] 09/28/2022 10:55:01 Date Recorded Body height Body mass index (BMI) Body weight Provider Name and Address Organization Details Last Updated DateTime 04/28/2023 182.88 cm 19.4 kg/m2 29600.71 g Mindy Malone [facility] 04/28/2023 11:39:29 Date Recorded Body height Body mass index (BMI) Body weight Provider Name and Address Organization Details Last Updated DateTime 10/12/2023 182.88 cm 19.4 kg/m2 53837.71 g Veronika Begum [facility] 10/12/2023 12:26:19 Date Recorded Body height Body mass index (BMI) Body weight Provider Name and Address Organization Details Last Updated DateTime 11/01/2023 182.88 cm 18.7 kg/m2 09433.75 g Veronika Begum [facility] 11/01/2023 11:02:57 Date Recorded Body height Body mass index (BMI) Body weight Provider Name and Address Organization Details Last Updated DateTime 05/06/2021 182.88 cm 19.4 kg/m2 43225.71 g Chelsea Medrano [facility] 05/06/2021 12:47:45 Date Recorded Body height Body mass index (BMI) Body weight Provider Name and Address Organization Details Last Updated DateTime 09/27/2021 182.88 cm 19.4 kg/m2 36728.71 g Nasreen Salas [facility] 09/27/2021 12:43:07 Social History Question Answer Notes LastModified by Organizat ion Details LastModified Time Tobacco Smoking Status [facility] 14:55:09 What Is Your [...] Time Mother Family history of cardiac disorder [email or web address] Not available 09/27 12:44:19 Mother Family history [...] Recorded Time IPV 11/19/2004 completed Mindy hwang [facility] 04/28/2023 11:39:35 COVID-19, mRNA, LNP-S, PF, 30 mcg/0.3 mL dose 08/20/2020 completed Mindy hwang [facility] 04/28/2023 11:39:35 COVID-19, mRNA, LNP-S, PF, 30 mcg/0.3 mL dose 09/14/2020 completed Mindy hwang [facility] 04/28/2023 11:39:35 Pneumococcal conjugate PCV20, polysaccharide MFR804 conjugate, adjuvant, PF 12/01/2022 completed Mindy hwang [facility] 04/28/2023 11:39:35 influenza, unspecified formulation 05/24/2006 maki hwang [facility] 04/28/2023 11:39:35 Tdap 09/01/2006 completed Mindy hwang [facility] 04/28/2023 11:39:35 Tdap 12/26/2008 maki hwang [facility] 04/28/2023 11:39:35 zoster live 01/29/2015 completed Mindy Malone null, [facility] 04/28/2023 11:39:35 Influenza, split virus, trivalent, PF 03/25/2011 completed Mindy Malone null, [facility] 04/28/2023 11:39:35 Influenza, split virus, trivalent, PF 05/24/2012 completed Mindy Malone null, [facility] 04/28/2023 11:39:35 Td (adult), 2 Lf tetanus toxoid, preservative free, adsorbed 03/21/1997 completed Mindy Malone null, [facility] 04/28/2023 11:39:35 Hep B, adult 09/01/2006 completed Mindy hwang, [facility] 04/28/2023 11:39:35 Hep B, adult 11/19/2004 completed Mindy hwang, [facility] 04/28/2023 11:39:35 Hep B, adult 03/30/2007 completed Mindy hwang, [facility] 04/28/2023 11:39:35 Hep A, adult 09/30/2002 completed Mindy hwang, [facility] 04/28/2023 11:39:35 Hep A, adult 11/19/2004 completed Mindy hwang, [facility] 04/28/2023 11:39:35 Hep A, adult 05/01/2003 completed Mindy hwang, [facility] 04/28/2023 11:39:35 typhoid, ViCPs 09/01/2006 completed Mindy hwang, [facility] 04/28/2023 11:39:35 typhoid, ViCPs 09/30/2002 completed Mindy hwang, [facility] 04/28/2023 11:39:35 Past Encounters Encounter ID Performer Location Encounter Start Date Encounter Closed Date Diagnosis/Indication Diagnosis SNOMED-CT Code Diagnosis ICD10 Code [id number] Jono Pagan MD [facility] [address] [place] [address] 02/18/2021 14:23:42 02/19/2021 12:13:21 Neurogenic urinary bladder 017758036 N31.9 Spinal cord injury 46973 004 G95.89 Spasm of u rinary bladder 672040546 N32.89 Recurrent urinary tract infection 199887795 N39.0 Acute urin estefany tract infection 888698663 N39.0 [id number] Marlene Greer [facility] [address] [place] [address] 05/06/2021 11:58:15 05/11/2021 03:52:30 Abnormal urine 082674816 R82.90 [id number] Jono Pagan MD [facility] [address] [place] [address] 09/27/2021 12:37:54 10/27/2021 09:29:43 Neurogenic urinary bladder 301608213 N31.9 Spinal cord injury 24917 004 G95.89 Spasm of u rinary bladder 072124501 N32.89 Recurrent urinary tract infection 680518374 N39.0 [id number] Jono Pagan MD [facility] [address] [place] [address] 09/28/2022 10:53:21 10/01/2022 11:26:52 Neurogenic urinary bladder 789488698 N31.9 Spinal cord injury 33166 004 G95.89 Spasm of u rinary bladder 741547282 N32.89 Recurrent urinary tract infection 622210806 N39.0 [id number] Jono Pagan MD [facility] [address] [place] [address] 04/28/2023 11:30:11 05/04/2023 11:13:13 Neurogenic urinary bladder 283691250 N31.9 Spinal cord injury 00630 004 G95.89 Spasm of u rinary bladder 064184290 N32.89 Recurrent urinary tract infection 236295141 N39.0 [id number] Jono Pagan MD [facility] [address] [place] [address] 11/01/2023 10:52:02 11/02/2023 14:01:41 Neurogenic urinary bladder 113664572 N31.9 Spinal cord injury 91283 004 G95.89 Spasm of u rinary bladder 498162417 N32.89 Recurrent urinary tract infection 779617840 N39.0 Health Concerns Section Related Observation LastModified by Organization Detai ls LastModified Time None Recorded Concern Status LastModified by Organization Details LastModified Time None Recorded Advance Directives Directive None Recorded Payers Encounter Date Sequence Insurance Name Policy Number Policy Quinones Covered Member ID Quinones Member ID Guarantor Name 05/06/2021 [facility] [employer] [facility] [id number] [email or web address] Khanh Rene 09/27/2021 1 [facility] (MEDICARE REPLACEMENT/AD VANTAGE - PPO) [id number] Khanh C Edgard [id number] Khanh C Edgard 09/28/2022 [facility] [employer] [id number] [email or web address] Khanh C Edgard 04/28/2023 1 [facility] (MEDICARE REPLACEMENT/AD VANTAGE - PPO) [id number] Khanh Rene [id number] Khanh Rene 11/01/2023 [facility] [employer]ANCE [facility] [id number] [email or web address] Khanh Rene Notes Date Note Type Note Provider Name and Address Organization Details Recorded Time 05/06/2021 text/html Pt here for UA/U C due to low back ache, cloudy urine with sediment present X 1.5 weeks. pt given cipro 500mg BID pending culture. KN, [employer] IN[employer] Marlene Greer [facility] [place] [facility] [place] [facility] 07/20/2021 14:23:40 09/27/2021 text/html 66 yoM with hist ory of spinal cord injury and resultant neurogenic [...] foul-smelling urine, and occasional low grade fever. 09/27/2021:Here for follow up history of spinal cord injury and resultant neurogenic bladder managed with daily CIC regimen and anticholinergic. Issues with recurrent UTIs, on Nitrofurantoin ppx. Only one infection over last 7 months. Jono Pagan MD [address] [facility],[address], [place], [address], [facility] 09/27/2021 13:13:14 09/28/2022 text/html 67 yoM with hist ory of spinal cord injury and resultant neurogenic [...] foul-smelling urine, and occasional low grade fever. 09/27/2021:Here for follow up history of spinal cord injury and resultant neurogenic bladder managed with daily CIC regimen and anticholinergic. Issues with recurrent UTIs, on Nitrofurantoin ppx. Only one infection over last 7 months. 09/28/2022:Here for follow up history of spinal cord injury and resultant neurogenic bladder managed with daily CIC regimen and anticholinergic. Doing very well. One yeast UTI since last visit. Renal US reviewed with no upper tract abnormality. Jono Pagan MD [address] [place] [address],[address], [place], [address], [facility] 09/28/2022 13:48:55 04/28/2023 text/html 68 yoM with hist ory of spinal cord injury and resultant neurogenic [...] foul-smelling urine, and occasional low grade fever. 09/27/2021:Here for follow up history of spinal cord injury and resultant neurogenic bladder managed with daily CIC regimen and anticholinergic. Issues with recurrent UTIs, on Nitrofurantoin ppx. Only one infection over last 7 months. 09/28/2022:Here for follow up history of spinal cord injury and resultant neurogenic bladder managed with daily CIC regimen and anticholinergic. Doing very well. One yeast UTI since last visit. Renal US reviewed with no upper tract abnormality. 04/28/2023:Here for follow up history of spinal cord injury and resultant neurogenic bladder managed with daily CIC regimen and anticholinergic. Today reports overall he is doing well. He has had two UTIs since the summer. Jono Pagan MD [address] [facility],[address], [place], [address], [facility] 04/28/2023 12:27:52 11/01/2023 text/html 68 yoM with hist ory of spinal cord injury and resultant neurogenic [...] foul-smelling urine, and occasional low grade fever. 09/27/2021:Here for follow up history of spinal cord injury and resultant neurogenic bladder managed with daily CIC regimen and anticholinergic. Issues with recurrent UTIs, on Nitrofurantoin ppx. Only one infection over last 7 months. 09/28/2022:Here for follow up history of spinal cord injury and resultant neurogenic bladder managed with daily CIC regimen and anticholinergic. Doing very well. One yeast UTI since last visit. Renal US reviewed with no upper tract abnormality. 04/28/2023:Here for follow up history of spinal cord injury and resultant neurogenic bladder managed with daily CIC regimen and anticholinergic. Today reports overall he is doing well. He has had two UTIs since the summer. 11/01/2023:Here for follow up history of spinal cord injury and resultant neurogenic bladder managed with daily CIC regimen and anticholinergic. Continues to do well. Reports 2 UTIs in last year. Occasional incontinence but rare. Interested in condom catheter when traveling. Jono Pagan MD [address] [facility],[address], [place], [address], [facility] 11/01/2023 23:05:58
== END 2024-06-11 13:26 | disposition home or self-care (01) ==
LOC: NFLDREF 06-14 14:22
PROVIDERS: PCP Family Medicine; Visit Provider Family Medicine
DX: N39.0 Urinary tract infection, site not specified (principal); G82.54 Quadriplegia, C5-C7 incomplete
CPT/HCPCS: 87086; 87186

== ENCOUNTER 2024-06-17 08:00 | Outpatient (CLI) | payer OTHER, SELFPAY ==
--- OUTSIDE RECORDS SUMMARY | 2024-06-17 08:02 | XMS_ITS | Clinical Summary ---
Author Organization [employer] [facility] Address [place], [place] [address] Care Team Providers Care Assistant Printer Floor Covering Name Role Phone Goyoluis aAna Unavailable Alex Mata MD Primary Care Provider + Jak Keys CATERING COORDINATOR Unavailable [phone] Allergies Active Allergy Reactions Criticality Noted Date Comments Blood-Group Specific Substance Other - Describe In Comment Field 04/19/2021 Patient has Sims a (Fya) antibody. Blood products may be delayed. Draw patient 24 hours prior to transfusion. For Parantez testing, draw one red top and two [...] (11/17/2023): 09/20/23 bilateral lower extremity arterial ultrasound ([facility]) S/P flap graft 03/06/2020 Neurogenic orthostatic [...] Type Department Care Team Description 05/03/2024 Telephone Parantez [facility] [address] [facility] [address] [place] [address] Adan Santos RN from Last [...] 12/26/2008, 09/01/2006 Medical Devices Implanted Type Area Cnc Technician Device Identifier Shelf Expiration Date Model / Serial / Lot Standard Pacemaker-12/21 Implanted:11/23 by Judson Jenkins MD (Quantity not on file) Standard Pacemaker [employer] [id number] / [id number] / Procedures Procedure Name Priority Date/Time Associated Diagnosis Comments LIPID PANEL Early AM 07/14/2008 3:00 AM SENIOR ASSOCIATE from Last 3 Months or Most Recently Relevant to Health Maintenance Results * Lipid Panel - In AM (07/14/2008 3:00 AM SENIOR ASSOCIATE) CHOLESTEROL,TOTAL 141 110 - 199 mg/dL [facility] TRIGLYCERIDES 41 40 - 149 mg/dL [facility] HDL CHOLESTEROL 45 >40 mg/dL [facility] CHOL/HDL RATIO 3.13 <4.51 [facility] LDL CHOLESTEROL 88 <131 mg/dL [facility] PATIENT STATUS Fasting [facility] Blood specimen (specimen) BLOOD SPECIMEN / Unknown 07/14/2008 3:00 AM SENIOR ASSOCIATE 07/14/2008 1:52 AM SENIOR ASSOCIATE Phyllis Sánchez MD CHEMISTRY [facility] INTERNAL ZIP [address] [address] from Last 3 Months or Most Recently [...] 6:44 AM 03/14/2016 5:37 PM Care Teams Assistant Printer Floor Covering Relationship Specialty Start Date End Date Alex Mata MD [address] [place] [address] PCP - General Family Practice 02/04/20 Ana Mayers [address] [place] [address] Nurse Practitioner 03/02/11 Jak Keys NP [address] [place] [address] Nurse Practitioner Nurse Practitioner - Adult 10/30/23
--- OUTSIDE RECORDS SUMMARY | 2024-06-17 08:02 | XMS_ITS | Data Portability ---
Author Organization [facility], [facility] Address [address] [place] [address] Care Team Providers Care Sharples Machine Operator Name Role Phone RAHUL OCONNOR Operations Intern [phone] Assessment Encounter Date Assessment Date Assessment LastModified [...] [facility], [address], [place], [address], 05/08/2021 07:39:35 urinalysi s, dipstick 2020 021 marie Not available 05/12/2021 11:34:22 Referral None recorded. Procedures None recorded. Surgeries None recorded. Imaging US, kidney 2021 022 [facility] Radiology Department, [address] [place], [address], 10/06/2021 09:00:29 Medication Orders oxybutyni n chloride ER 15 mg tablet,ex tended release 24 hr 2021 022 [facility]80675, [address] , [place], [place], [id number], 09/27/2021 12:53:22 nitrofura ntoin macrocrys tori 50 mg capsule [address] [facility]28621, [address] , [place], [place], [id number], 11/01/2023 08:10:56 nitrofura ntoin macrocrys tori 50 mg capsule [address] [facility]87106, [address] , [place], [place], [id number], 11/01/2023 08:10:56 oxybutyni n chloride ER 15 mg tablet,ex tended release 24 hr 2022 023 [facility] #37679, [address] [facility], [place], [place], [id number], 04/28/2023 12:15:06 methenami ne hippurate 1 gram tablet [address] [facility]90251, [address] [place], [place], [id number], 11/01/2023 23:05:30 methenami ne hippurate 1 gram tablet 2023 024 [facility] #13667, [address] [place] [address], [id number], 11/01/2023 23:05:37 oxybutyni n chloride ER 15 mg tablet,ex tended release 24 hr 2023 024 [facility]24, [address], [place], [place], [id number], 11/01/2023 23:04:50 Patient TargetsNo targets recorded. Patient InstructionsNo instructions recorded. Reason for Referral None Reported. Results Created Date Observation Date Name Description Value Unit Range Abnormal Flag Note LastModifiedBy Organization Detail LastModifiedTime 05/12/2021 urina lysis , dipst ick Color-Status Yellow Not Available [facility] [address], [place], [address], 05/12/2021 11:33:40 05/12/2021 urina lysis , dipst ick Clarity-Stat us Cloudy Not Available [facility] [address], [place], [address], 05/12/2021 11:33:40 05/12/2021 urina lysis , dipst ick pH-Status 7.5 Not Available [facility] [address], [place], [address], 05/12/2021 11:33:40 05/12/2021 urina lysis , dipst ick Nitrates-Sta tus positi ve Not Available [facility] [address], [place], [address], 05/12/2021 11:33:40 05/12/2021 urina lysis , dipst ick Blood-Status Small Not Available [facility] [address], [place], [address], 05/12/2021 11:33:40 05/12/2021 urina lysis , dipst ick Leuko-Status Large Not Available [facility] [address], [place], [address], 05/12/2021 11:33:40 05/06/20 21 05/06/2021 URINE CULTU [...] y Type Sensi tivit y Coleen sis Drury te 1 Drury te 2 ----- ----- ----- ----- ----- [...] s Desk Refer ence or from the [facility] actur er. S= Susce ptibl e;I= Inter media te;R= Resis tant; ESBL= Resis tance due to confi rmed ESBL Not Available [facility] [address] [facility] [address], [place], [address], 05/08/2021 07:39:35 10/07/19 22 10/05/2021 US, kidne y No observ ation record ed. [address] Radiology Department [address] [place], [address], 09/28/2022 13:47:50 Result Notes None recorded. Procedures Surgical History Date Name Laterality Status Provider Name and Address Organization Details Recorded Time 11/01/19 24 COMPLEX VISIT completed Jono Pagan MD [address], [place], [address], [facility] 11/01/2023 08:09:54 excision of pressure injury completed Jono Pagan MD [address], [place], [address], [facility] 09/28/2022 11:00:08 maintenance procedure for cardiac pacemaker system completed Veronika Begum [facility] 11/01/2023 11:05:10 Imaging Results Imaging Date Name Status LastModified by Organiz ation Details LastModified Time 10/05/2021 US, kidney completed [address] Radiology Department [address] [place], [address], 09/28/2022 13:47:50 Procedure Notes None recorded. Medical Equipment None Reported. Allergies Allergen ID Allergen Name Allergen Category Reaction Reaction Severity Criticality Documentation Date Start Date Code Code System Note Provider Name and Address Organization Details Recorded Time 904518 Medicinal product containin g cephalosp pao and acting as antibacte rial agent (product) medicatio n Not available Not available Not available 09/27/2021 85001 9009 SNOMED Nasreen hwang [facility] 12:43:20 809037 shellfish derived food,medi cation Not available Not available Not available 11/01/2023 65901 UNK Veronika Kotharilorettadean ayla hwang [place] - [facility] 4 11:03:08 Medications Name Sig Start [...] Updated DateTime 09/28/2022 182.88 cm 19.4 kg/m2 58410.71 g Veronika Begum [facility] 09/28/2022 10:55:01 Date Recorded Body height Body mass index (BMI) Body weight Provider Name and Address Organization Details Last Updated DateTime 04/28/2023 182.88 cm 19.4 kg/m2 25357.71 g Mindy Malone [facility] 04/28/2023 11:39:29 Date Recorded Body height Body mass index (BMI) Body weight Provider Name and Address Organization Details Last Updated DateTime 10/12/2023 182.88 cm 19.4 kg/m2 71873.71 g Veronika Begum [facility] 10/12/2023 12:26:19 Date Recorded Body height Body mass index (BMI) Body weight Provider Name and Address Organization Details Last Updated DateTime 11/01/2023 182.88 cm 18.7 kg/m2 88898.75 g Veronika Begum [facility] 11/01/2023 11:02:57 Date Recorded Body height Body mass index (BMI) Body weight Provider Name and Address Organization Details Last Updated DateTime 05/06/2021 182.88 cm 19.4 kg/m2 81386.71 g Chelsea Medrano [facility] 05/06/2021 12:47:45 Date Recorded Body height Body mass index (BMI) Body weight Provider Name and Address Organization Details Last Updated DateTime 09/27/2021 182.88 cm 19.4 kg/m2 05591.71 g Nasreen Salas [facility] 09/27/2021 12:43:07 Social History Question Answer Notes LastModified by Organizat ion Details LastModified Time Tobacco Smoking Status [facility]18[facility] 14:55:09 What Is Your Level [...] Recorded Time IPV 11/19/2004 completed Mindy hwang [facility] 04/28/2023 11:39:35 COVID-19, mRNA, LNP-S, PF, 30 mcg/0.3 mL dose 08/20/2020 completed Mindy hwang [facility] 04/28/2023 11:39:35 COVID-19, mRNA, LNP-S, PF, 30 mcg/0.3 mL dose 09/14/2020 completed [facility] 04/28/2023 11:39:35 Pneumococcal conjugate PCV20, polysaccharide WKY709 conjugate, adjuvant, PF 12/01/2022 completed Mindy hwang [facility] 04/28/2023 11:39:35 influenza, unspecified formulation 05/24/2006 maki hwang [facility] 04/28/2023 11:39:35 Tdap 09/01/2006 maki hwang [facility] 04/28/2023 11:39:35 Tdap 12/26/2008 maki hwang [facility] 04/28/2023 11:39:35 zoster live 01/29/2015 completed Mindy Malone null, [facility] 04/28/2023 11:39:35 Influenza, split virus, trivalent, PF 03/25/2011 completed Mindy Malone null, [facility] 04/28/2023 11:39:35 Influenza, split virus, trivalent, PF 05/24/2012 completed Mindy Malone null, [facility] 04/28/2023 11:39:35 Td (adult), 2 Lf tetanus toxoid, preservative free, adsorbed 03/21/1997 completed Mindy Malone null, [facility] 04/28/2023 11:39:35 Hep B, adult 09/01/2006 completed Mindy hwang, [facility] 04/28/2023 11:39:35 Hep B, adult 11/19/2004 completed Mindy hwang, [facility] 04/28/2023 11:39:35 Hep B, adult 03/30/2007 completed Mindy hwang, [facility] 04/28/2023 11:39:35 Hep A, adult 09/30/2002 completed Mindy hwang, [facility] 04/28/2023 11:39:35 Hep A, adult 11/19/2004 completed Mindy hwang, [facility] 04/28/2023 11:39:35 Hep A, adult 05/01/2003 completed Mindy hwang, [facility] 04/28/2023 11:39:35 typhoid, ViCPs 09/01/2006 completed Mindy hwang, [facility] 04/28/2023 11:39:35 typhoid, ViCPs 09/30/2002 completed Mindy hwang, [facility] 04/28/2023 11:39:35 Past Encounters Encounter ID Performer Location Encounter Start Date Encounter Closed Date Diagnosis/Indication Diagnosis SNOMED-CT Code Diagnosis ICD10 Code [id number] Jono Pagan MD [facility] [address] [place] [address] 02/18/2021 14:23:42 02/19/2021 12:13:21 Neurogenic urinary bladder 765051266 N31.9 Spinal cord injury 98539 004 G95.89 Spasm of u rinary bladder 628421064 N32.89 Recurrent urinary tract infection 263683082 N39.0 Acute urin estefany tract infection 774711324 N39.0 [id number] Marlene Greer [facility] [address] [place] [address] 05/06/2021 11:58:15 05/11/2021 03:52:30 Abnormal urine 528838304 R82.90 [id number] Jono Pagan MD [facility] [address] [place] [address] 09/27/2021 12:37:54 10/27/2021 09:29:43 Neurogenic urinary bladder 903631635 N31.9 Spinal cord injury 74524 004 G95.89 Spasm of u rinary bladder 898469284 N32.89 Recurrent urinary tract infection 260437063 N39.0 [id number] Jono Pagan MD [facility] [address] [place] [address] 09/28/2022 10:53:21 10/01/2022 11:26:52 Neurogenic urinary bladder 520559706 N31.9 Spinal cord injury 31629 004 G95.89 Spasm of u rinary bladder 675961164 N32.89 Recurrent urinary tract infection 679193683 N39.0 [id number] Jono Pagan MD [facility] [address] [place] [address] 04/28/2023 11:30:11 05/04/2023 11:13:13 Neurogenic urinary bladder 269159463 N31.9 Spinal cord injury 33951 004 G95.89 Spasm of u rinary bladder 592334735 N32.89 Recurrent urinary tract infection 501541963 N39.0 [id number] Jono Pagan MD [facility] [address] [place] [address] 11/01/2023 10:52:02 11/02/2023 14:01:41 Neurogenic urinary bladder 607584593 N31.9 Spinal cord injury 72897 004 G95.89 Spasm of u rinary bladder 147847399 N32.89 Recurrent urinary tract infection 497885374 N39.0 Health Concerns Section Related Observation LastModified by Organization Detai ls LastModified Time None Recorded Concern Status LastModified by Organization Details LastModified Time None Recorded Advance Directives Directive None Recorded Payers Encounter Date Sequence Insurance Name Policy Number Policy Quinones Covered Member ID Quinones Member ID Guarantor Name 05/06/2021 [facility] [employer] [facility] [id number] [employer] Khanh eRne 09/27/2021 1 [facility] (MEDICARE REPLACEMENT/AD VANTAGE - PPO) [id number] Khanh C Edgard [id number] Khanh C Edgard 09/28/2022 [facility] [employer] [id number] [employer] Khanh C Edgard 04/28/2023 1 [facility] (MEDICARE REPLACEMENT/AD VANTAGE - PPO) [id number] Khanh Rene [id number] Khanh Rene 11/01/2023 [facility] [employer] [facility] [id number] [employer] Khanh Rene Notes Date Note Type Note Provider Name and Address Organization Details Recorded Time 05/06/2021 text/html Pt here for UA/U C due to low back ache, cloudy urine with sediment present X 1.5 weeks. pt given cipro 500mg BID pending culture. KN, [employer]ER Marlene Greer [place] - [facility] 07/20/2021 14:23:40 09/27/2021 text/html 66 yoM [...] Pagan MD [address], [place], [address], [facility] 09/27/2021 13:13:14 09/28/2022 text/html 67 yoM [...] no upper tract abnormality. Jono Pagan MD [address] [place] [address],[address], [place], [address], [facility] 09/28/2022 13:48:55 04/28/2023 text/html 68 yoM [...] Pagan MD [address], [place], [address], [facility] 04/28/2023 12:27:52 11/01/2023 text/html 68 yoM [...] catheter when traveling. Jono Pagan MD [address], [place], [address], [facility] 11/01/2023 23:05:58
== END 2024-06-17 08:01 | disposition home or self-care (01) ==
LOC: WOUND 08:01
PROVIDERS: PCP Family Medicine; Visit Provider Nurse Practitioner Family
DX: L89.314 Pressure ulcer of right buttock, stage 4 (principal); M86.671 Other chronic osteomyelitis, right ankle and foot; L89.614 Pressure ulcer of right heel, stage 4; L89.894 Pressure ulcer of other site, stage 4; L89.623 Pressure ulcer of left heel, stage 3; L89.893 Pressure ulcer of other site, stage 3; Z99.3 Dependence on wheelchair
CPT/HCPCS: 97597; 97602; G0277

== ENCOUNTER 2024-06-21 08:00 | Outpatient (RCR) | payer OTHER, SELFPAY | END 2024-06-22 23:59 | disposition home or self-care (01) | LOC: WOUND 08:00 | PROVIDERS: PCP Family Medicine; Visit Provider Nurse Practitioner Family | DX: M86.671 Other chronic osteomyelitis, right ankle and foot (principal); I73.9 Peripheral vascular disease, unspecified; L89.614 Pressure ulcer of right heel, stage 4; L89.894 Pressure ulcer of other site, stage 4; L89.893 Pressure ulcer of other site, stage 3; L89.314 Pressure ulcer of right buttock, stage 4; L89.623 Pressure ulcer of left heel, stage 3; L30.4 Erythema intertrigo; S14.155S Other incomplete lesion at C5 level of cervical spinal cord, sequela; Z99.3 Dependence on wheelchair | CPT/HCPCS: G0277 ==

== ENCOUNTER 2024-06-24 08:03 | Outpatient (CLI) | payer OTHER, SELFPAY ==
--- OUTSIDE RECORDS SUMMARY | 2024-06-24 08:05 | XMS_ITS | Clinical Summary ---
Author Organization [facility] Address [place], [place] [address] Care Team Providers Care Endorsement Clerk Name Role Phone Goyoluis aAna Unavailable Alex Mata MD Primary Care Provider + Jak Keys CHILD STUDY TEAM DIRECTOR Unavailable [phone] Allergies Active Allergy Reactions Criticality Noted Date Comments Blood-Group Specific Substance Other - Describe In Comment Field 04/19/2021 Patient has Sims a (Fya) antibody. Blood products may be delayed. Draw patient 24 hours prior to transfusion. For Goko testing, draw one red top and two [...] Type Department Care Team Description 05/03/2024 Telephone [facility] [address] [facility] [address] [place] [address] Adan Santos RN from Last [...] 12/26/2008, 09/01/2006 Medical Devices Implanted Type Area Solvent Station Attendant Device Identifier Shelf Expiration Date Model / Serial / Lot Standard Pacemaker-12/21 Implanted:11/23 by Judson Jenkins MD (Quantity not on file) Standard Pacemaker Medtronic [id number] / [id number] / Procedures Procedure Name Priority Date/Time Associated Diagnosis Comments LIPID PANEL Early AM 07/14/2008 3:00 AM LABEL OPERATOR from Last 3 Months or Most Recently Relevant to Health Maintenance Results * Lipid Panel - In AM (07/14/2008 3:00 AM LABEL OPERATOR) CHOLESTEROL,TOTAL 141 110 - 199 mg/dL [facility] TRIGLYCERIDES 41 40 - 149 mg/dL [facility] HDL CHOLESTEROL 45 >40 mg/dL [facility] CHOL/HDL RATIO 3.13 <4.51 [facility] LDL CHOLESTEROL 88 <131 mg/dL [facility] PATIENT STATUS Fasting [facility] Blood specimen (specimen) BLOOD SPECIMEN / Unknown 07/14/2008 3:00 AM LABEL OPERATOR 07/14/2008 1:52 AM LABEL OPERATOR Phyllis Sánchez MD CHEMISTRY [facility] INTERNAL ZIP [address] [address] from Last 3 Months or Most Recently [...] 6:44 AM 03/14/2016 5:37 PM Care Teams Endorsement Clerk Relationship Specialty Start Date End Date Alex Mata MD [address] [place] [address] PCP - General Family Practice 02/04/20 Ana Mayers [address] [place] [address] Nurse Practitioner 03/02/11 Jak Keys NP [address] [place] [address] Nurse Practitioner Nurse Practitioner - Adult 10/30/23
== END 2024-06-24 08:04 | disposition home or self-care (01) ==
LOC: WOUND 08:03
PROVIDERS: PCP Family Medicine; Visit Provider Nurse Practitioner Family
DX: L89.314 Pressure ulcer of right buttock, stage 4 (principal); M86.671 Other chronic osteomyelitis, right ankle and foot; L89.614 Pressure ulcer of right heel, stage 4; L89.894 Pressure ulcer of other site, stage 4; L89.893 Pressure ulcer of other site, stage 3; L89.623 Pressure ulcer of left heel, stage 3; L30.4 Erythema intertrigo; S14.155S Other incomplete lesion at C5 level of cervical spinal cord, sequela; Z99.3 Dependence on wheelchair
CPT/HCPCS: 15271; 87070; 87081; 97597; 97602; G0277; Q4201

== ENCOUNTER 2024-06-27 11:06 | Outpatient (CLI) | payer OTHER, SELFPAY ==
--- OUTSIDE RECORDS SUMMARY | 2024-07-02 06:22 | XMS_ITS | Clinical Summary ---
Author Organization [facility] Address [place], [place] [address] Care Team Providers Care Wet Mix Operator Name Role Phone Goyoluis aAna Unavailable Alex Mata MD Primary Care Provider + Jak Keys RESIDENTIAL TREATMENT COUNSELOR Unavailable [phone] Allergies Active Allergy Reactions Criticality Noted Date Comments Blood-Group Specific Substance Other - Describe In Comment Field 04/19/2021 Patient has Sims a (Fya) antibody. Blood products may be delayed. Draw patient 24 hours prior to transfusion. For Tabblo testing, draw one red top and two [...] Type Department Care Team Description 05/03/2024 Telephone [facility] [address] [facility] [address] [place] [address] Adan Santos RN from Last [...] on file Legal Sex Male 5:58 AM FINANCE LEAD Gender Identity Not on file Sexual Orientation Not on file Occupation Industry Job Start Date Job End Date [employer] Not on file Not on file [...] Health Maintenance Due Date Last Done Comments Pneumococcal series for age 65+ (1 of 2 - PCV) 1960 Hepatitis C screening for age 18-79 1972 [...] 2019 Medicare Wellness for age 65+ 2019 COVID-19 vaccine series ( season) 2024 09/14/2020, 08/20/2020 Influenza for age 65+ 03/24/2024 03/25/2011, 006 Tdap Completed 12/26/2008, 09/01/2006 Medical Devices Implanted Type Area Lunch Wagon Operator Device Identifier Shelf Expiration Date Model / Serial / Lot Standard Pacemaker-12/21 Implanted:11/23 by Judson Jenkins MD (Quantity not on file) Standard Pacemaker [employer] [id number] / [id number] / Procedures Procedure Name Priority Date/Time Associated Diagnosis Comments LIPID PANEL Early AM 07/14/2008 3:00 AM FINANCE LEAD from Last 3 Months or Most Recently Relevant to Health Maintenance Results * Lipid Panel - In AM (07/14/2008 3:00 AM FINANCE LEAD) [facility] CHOLESTEROL,TOTAL 141 110 - 199 mg/dL [facility] TRIGLYCERIDES 41 40 - 149 mg/dL [facility] HDL CHOLESTEROL 45 >40 mg/dL [facility] CHOL/HDL RATIO 3.[address] [facility] LDL CHOLESTEROL 88 <131 mg/dL [facility] PATIENT STATUS Fasting 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 MEDICARE PART A HB ONLY [facility] Advance Directives * Full Code (Latest [...] 6:44 AM 03/14/2016 5:37 PM Care Teams Wet Mix Operator Relationship Specialty Start Date End Date Alex Mata MD [address] [place] [address] PCP - General Family Practice 02/04/20 Ana Mayers [address] [place] [id number] Nurse Practitioner 03/02/11 Jak Keys NP [address] [place] [address] Nurse Practitioner Nurse Practitioner - Adult 10/30/23
== END 2024-06-27 11:07 | disposition home or self-care (01) ==
LOC: NFLDREF 07-02 06:21
PROVIDERS: PCP Family Medicine; Referring Provider Family Medicine; Visit Provider Family Medicine
DX: N39.0 Urinary tract infection, site not specified (principal)
CPT/HCPCS: 87086

== ENCOUNTER 2024-07-01 10:30 | Outpatient (CLI) | payer OTHER, SELFPAY ==
--- OUTSIDE RECORDS SUMMARY | 2024-07-01 10:31 | XMS_ITS | Clinical Summary ---
Author Organization [facility] Address [place], [place] [address] Care Team Providers Care Leguillon Debeader Name Role Phone Goyoluis aAna Unavailable Alex Mata MD Primary Care Provider + Jak Keys CONFERENCE PLANNER Unavailable [phone] Allergies Active Allergy Reactions Criticality Noted Date Comments Blood-Group Specific Substance Other - Describe In Comment Field 04/19/2021 Patient has Sims a (Fya) antibody. Blood products may be delayed. Draw patient 24 hours prior to transfusion. For Mi-Pay testing, draw one red top and two purple top tubes for all Type and Screen orders. Cephalexin Diarrhea,Vomiting 01/02/2007 11/19/15: pt states not a true allergy Shellfish Containing Products Diarrhea,Nausea And Vomiting 09/09/2010 Iodine in products Medications oxybutynin (DITROPAN XL) 15 mg CR tablet Take 15 mg by mouth two times daily. 05/13/2020 Active ferrous sulfate 325 mg delayed release tablet Take 325 mg by mouth once daily with evening meal. Active aspirin chewable 81 mg chewable tabletIndicatio ns:PAD (peripheral artery disease) (HC) Chew 1 Tablet (81 mg) by mouth once daily with a meal. 01/17/2024 Active methenamine hippurate (HIPREX) 1 gram tablet Take 1 g by mouth. TWICE DAILY ON DAY 1-3 OF EACH MONTH Active atorvastatin (LIPITOR) 40 mg tabletIndicatio ns:PAD (peripheral artery disease) (HC) Take 1 Tablet [...] (11/17/2023): 09/20/23 bilateral lower extremity arterial ultrasound ([facility]) S/P flap graft 03/06/2020 Neurogenic orthostatic [...] of left heel 12/24/2019 080 10/2019 Pressure injury of sacral region, stage [...] Type Department Care Team Description 05/03/2024 Telephone [facility] [address] [facility] [address] [place] [address] Adan Santos RN from Last [...] Recorded Sex Assigned at Not on file Legal Sex Male 5:58 AM POCKET BUILDER Gender Identity Not on file Sexual Orientation Not on file Occupation Industry Job Start Date Job End Date [employer] Not on file Not on file Not on file [employer] Not on file Not on file Not on file Obstetrics History Last Filed [...] 1999 Lipids for age 45-75 07/14/2013 07/14/2008 RSV vaccine for adults or pr egnancy (1 - Risk 60-74 years 1-dose series) 2014 Zoster (shingles) series for age 50+ (2 [...] 12/26/2008, 09/01/2006 Medical Devices Implanted Type Area Cylinder Machine Operator Device Identifier Shelf Expiration Date Model / Serial / Lot Standard Pacemaker-12/21 Implanted:11/23 by Judson Jenkins MD (Quantity not on file) Standard Pacemaker Medtronic [id number] / [id number] / Procedures Procedure Name Priority Date/Time Associated Diagnosis Comments LIPID PANEL Early AM 07/14/2008 3:00 AM POCKET BUILDER from Last 3 Months or Most Recently Relevant to Health Maintenance Results * Lipid Panel - In AM (07/14/2008 3:00 AM POCKET BUILDER) [facility] CHOLESTEROL,TOTAL 141 110 - 199 mg/dL [facility] TRIGLYCERIDES 41 40 - 149 mg/dL [facility] HDL CHOLESTEROL 45 >40 mg/dL [facility] CHOL/HDL RATIO 3.13 <4.51 [facility] LDL CHOLESTEROL 88 <131 mg/dL [facility] PATIENT STATUS Fasting [facility] Blood specimen (specimen) BLOOD SPECIMEN / Unknown 07/14/2008 3:00 AM POCKET BUILDER 07/14/2008 1:52 AM POCKET BUILDER [facility] Sudeep Sánchez MD CHEMISTRY Final Result [facility] INTERNAL ZIP [address] [address] from Last 3 Months or Most Recently [...] 12 months since positive culture): resides in acute/buttermaker continuous churn care, receiving hemodialysis, has chronic open wounds/skin damage, has long-term percutaneous indwelling medical devices Exclusions for nares collection (if <12 months since positive culture) include all of the previous exclusions plus patients on antibiotics 7 days prior to collection 12/17/2015 12/17/2015 Insurance MEDICARE PART A HB ONLY [facility] MEDICARE PART A HB ONLY [facility] Advance Directives * Full Code (Latest Code [...] 6:44 AM 03/14/2016 5:37 PM Care Teams Leguillon Debeader Relationship Specialty Start Date End Date Alex Mata MD [address] [place] [address] PCP - General Family Practice 02/04/20 Ana Mayers [address] [place] [address] Nurse Practitioner 03/02/11 Jak Keys NP [address] [place] [address] Nurse Practitioner Nurse Practitioner - Adult 10/30/23
--- OUTSIDE RECORDS SUMMARY | 2024-07-01 10:32 | XMS_ITS | Data Portability ---
Author Organization [facility], [facility] Address [address] [place] [address] Care Team Providers Care Manager Of Business Operations Name Role Phone RAHUL OCONNOR Delivery Room Supervisor Assessment Encounter Date Assessment Date Assessment LastModified [...] Not available Lab culture, urine 2020 021 [facility], [address], [place], [address], 05/08/2021 07:39:35 urinalysi s, dipstick 2020 021 marie Not available 05/12/2021 11:34:22 Referral None recorded. Procedures None recorded. Surgeries None recorded. Imaging US, kidney 2021 022 [facility] Radiology Department, [address] [place], [address], 10/06/2021 09:00:29 Medication Orders oxybutyni n chloride ER 15 mg tablet,ex tended release 24 hr 2021 022 [facility], [address] , [place], [place], [id number], 09/27/2021 12:53:22 nitrofura ntoin macrocrys tori 50 mg capsule [address] [facility]34579, [address] , [place], [place], [id number], 11/01/2023 08:10:56 nitrofura ntoin macrocrys tori 50 mg capsule [address] [facility]65482, [address] , [place], [place], [id number], 11/01/2023 08:10:56 oxybutyni n chloride ER 15 mg tablet,ex tended release 24 hr 2022 023 [facility] #74280, [address] [facility], [place], [place], [id number], 04/28/2023 12:15:06 methenami ne hippurate 1 gram tablet [address] [facility]55188, [address] [place], [place], [id number], 11/01/2023 23:05:30 methenami ne hippurate 1 gram tablet 2023 024 [facility] #55040, [address] [place] [address], [id number], 11/01/2023 23:05:37 oxybutyni n chloride ER 15 mg tablet,ex tended release 24 hr 2023 024 [facility]16552, [address], [place], [place], [id number], 11/01/2023 23:04:50 Patient TargetsNo targets recorded. Patient InstructionsNo instructions recorded. Reason for Referral None Reported. Results Created Date Observation Date Name Description Value Unit Range Abnormal Flag Note LastModifiedBy Organization Detail LastModifiedTime 05/12/2021 urina lysis , dipst ick Color-Status Yellow Not Available [facility] [address], [place], [address], 05/12/2021 11:33:40 05/12/2021 urina lysis , dipst ick Clarity-Stat us Cloudy Not Available [facility] [address], [place], [address], 05/12/2021 11:33:40 05/12/2021 urina lysis , dipst ick pH-Status 7.5 Not Available [facility] [address], [place], [address], 05/12/2021 11:33:40 05/12/2021 urina lysis , dipst ick Nitrates-Sta tus positi ve Not Available [facility] [address], [place], [address], 05/12/2021 11:33:40 05/12/2021 urina lysis , dipst ick Blood-Status Small Not Available [facility] [address], [place], [address], 05/12/2021 11:33:40 05/12/2021 urina lysis , dipst ick Leuko-Status Large Not Available [facility] [address], [place], [address], 05/12/2021 11:33:40 05/06/20 21 05/06/2021 URINE CULTU [...] y Type Sensi tivit y Coleen sis Durand te 1 Durand te 2 ----- ----- ----- ----- ----- [...] Refer ence or from the [facility] act[facility] er. S= Susce ptibl e;I= Inter media te;R= Resis tant; ESBL= Resis tance due to confi rmed ESBL Not Available [facility] [address] [facility] [address], [place], [address], 05/08/2021 07:39:35 10/07/19 22 10/05/2021 US, kidne y No observ ation record ed. [address] Radiology Department [address] [place], [address], 09/28/2022 13:47:50 Result Notes None recorded. Procedures Surgical History Date Name Laterality Status Provider Name and Address Organization Details Recorded Time 11/01/19 24 COMPLEX VISIT completed Jono Pagan MD [address] [facility] [address] [facility],[address], [place], [address], [facility] 11/01/2023 08:09:54 excision of pressure injury completed Jono aPgan MD [address] [facility],[address], [place], [address], [facility] 09/28/2022 11:00:08 maintenance procedure for cardiac pacemaker system completed Veronika Begum [facility] 11/01/2023 11:05:10 Imaging Results Imaging Date Name Status LastModified by Organiz ation Details LastModified Time 10/05/2021 US, kidney completed [address] Radiology Department [address] [place], [address], 09/28/2022 13:47:50 Procedure Notes None recorded. Medical Equipment None Reported. Allergies Allergen ID Allergen Name Allergen Category Reaction Reaction Severity Criticality Documentation Date Start Date Code Code System Note Provider Name and Address Organization Details Recorded Time [id number] 4309716g5 2824e Medicinal product containin g cephalosp pao and acting as antibacte rial agent (product) medicatio n Not available Not available Not available 09/27/2021 19741 9009 SNOMED Not Available Not Available Not Available [id number] 2568801h1 2824e shellfish derived food,medi cation Not available Not available Not available 11/01/2023 28522 UNK Not Available Not Available Not Available Medications Name Sig Start Date Stop Date [...] Updated DateTime 09/28/2022 182.88 cm 19.4 kg/m2 85787.71 g Veronika Begum [facility] 09/28/2022 10:55:01 Date Recorded Body height Body mass index (BMI) Body weight Provider Name and Address Organization Details Last Updated DateTime 04/28/2023 182.88 cm 19.4 kg/m2 23862.71 g Mindy Malone [facility] 04/28/2023 11:39:29 Date Recorded Body height Body mass index (BMI) Body weight Provider Name and Address Organization Details Last Updated DateTime 10/12/2023 182.88 cm 19.4 kg/m2 72962.71 g Veronika Begum [facility] 10/12/2023 12:26:19 Date Recorded Body height Body mass index (BMI) Body weight Provider Name and Address Organization Details Last Updated DateTime 11/01/2023 182.88 cm 18.7 kg/m2 44841.75 g Veronika Begum [facility] 11/01/2023 11:02:57 Date Recorded Body height Body mass index (BMI) Body weight Provider Name and Address Organization Details Last Updated DateTime 05/06/2021 182.88 cm 19.4 kg/m2 41039.71 g Chelsea Medrano [facility] 05/06/2021 12:47:45 Date Recorded Body height Body mass index (BMI) Body weight Provider Name and Address Organization Details Last Updated DateTime 09/27/2021 182.88 cm 19.4 kg/m2 49091.71 g Nasreen Salas [facility] 09/27/2021 12:43:07 Social History Question Answer Notes LastModified by Organizat ion Details LastModified Time Tobacco Smoking Status [facility]/18[facility]21 14:55:09 What Is Your [...] Recorded Time IPV 11/19/2004 completed Mindy hwang [facility] 04/28/2023 11:39:35 COVID-19, mRNA, LNP-S, PF, 30 mcg/0.3 mL dose 08/20/2020 completed Mindy hwang [facility] 04/28/2023 11:39:35 COVID-19, mRNA, LNP-S, PF, 30 mcg/0.3 mL dose 09/14/2020 completed Mindy hwang [facility] 04/28/2023 11:39:35 Pneumococcal conjugate PCV20, polysaccharide SQC323 conjugate, adjuvant, PF 12/01/2022 completed Mindy hwang [facility] 04/28/2023 11:39:35 influenza, unspecified formulation 05/24/2006 [facility] 04/28/2023 11:39:35 Tdap 09/01/2006 maki hwang [facility] 04/28/2023 11:39:35 Tdap 12/26/2008 completed Mindy hwang [facility] 04/28/2023 11:39:35 zoster live 01/29/2015 completed Mindy hwang, [facility] 04/28/2023 11:39:35 Influenza, split virus, trivalent, PF 03/25/2011 completed Mindy Malone null, [facility] 04/28/2023 11:39:35 Influenza, split virus, trivalent, PF 05/24/2012 completed Mindy hwang, [facility] 04/28/2023 11:39:35 Td (adult), 2 Lf tetanus toxoid, preservative free, adsorbed 03/21/1997 completed Mindy hwang, [facility] 04/28/2023 11:39:35 Hep B, adult 09/01/2006 completed Mindy hwang, [facility] 04/28/2023 11:39:35 Hep B, adult 11/19/2004 completed Mindy hwang, [facility] 04/28/2023 11:39:35 Hep B, adult 03/30/2007 completed Mindy hwang, [facility] 04/28/2023 11:39:35 Hep A, adult 09/30/2002 completed Mindy hwang, [facility] 04/28/2023 11:39:35 Hep A, adult 11/19/2004 completed Mindy hwang, [facility] 04/28/2023 11:39:35 Hep A, adult 05/01/2003 completed Mindy hwang [facility] 04/28/2023 11:39:35 typhoid, ViCPs 09/01/2006 completed Mindy hwang, [facility] 04/28/2023 11:39:35 typhoid, ViCPs 09/30/2002 completed Mindy hwang, [facility] 04/28/2023 11:39:35 Past Encounters Encounter ID Performer Location Encounter Start Date Encounter Closed Date Diagnosis/Indication Diagnosis SNOMED-CT Code Diagnosis ICD10 Code [id number] Jono Pagan MD [facility] [address] [place] [address] 02/18/2021 14:23:42 02/19/2021 12:13:21 Neurogenic urinary bladder 434668510 N31.9 Spinal cord injury 88173 004 G95.89 Spasm of u rinary bladder 769701256 N32.89 Recurrent urinary tract infection 769179571 N39.0 Acute urin estefany tract infection 261752350 N39.0 [id number] Marlene Greer [facility] [address] [place] [address] 05/06/2021 11:58:15 05/11/2021 03:52:30 Abnormal urine 231050013 R82.90 [id number] Jono Pagan MD [facility] [address] [place] [address] 09/27/2021 12:37:54 10/27/2021 09:29:43 Neurogenic urinary bladder 020307817 N31.9 Spinal cord injury 04398 004 G95.89 Spasm of u rinary bladder 984421605 N32.89 Recurrent urinary tract infection 835501689 N39.0 [id number] Jono Pagan MD [facility] [address] [place] [address] 09/28/2022 10:53:21 10/01/2022 11:26:52 Neurogenic urinary bladder 839747874 N31.9 Spinal cord injury 44624 004 G95.89 Spasm of u rinary bladder 093024050 N32.89 Recurrent urinary tract infection 283966317 N39.0 [id number] Jono Pagan MD [facility] [address] [place] [address] 04/28/2023 11:30:11 05/04/2023 11:13:13 Neurogenic urinary bladder 038472878 N31.9 Spinal cord injury 16158 004 G95.89 Spasm of u rinary bladder 201548359 N32.89 Recurrent urinary tract infection 718434258 N39.0 [id number] Jono Pagan MD [facility] [address] [place] [address] 11/01/2023 10:52:02 11/02/2023 14:01:41 Neurogenic urinary bladder 167331812 N31.9 Spinal cord injury 13184 004 G95.89 Spasm of u rinary bladder 519191760 N32.89 Recurrent urinary tract infection 758736367 N39.0 Health Concerns Section Related Observation LastModified by Organization Detai ls LastModified Time None Recorded Concern Status LastModified by Organization Details LastModified Time None Recorded Advance Directives Directive None Recorded Payers Encounter Date Sequence Insurance Name Policy Number Policy Quinones Covered Member ID Quinones Member ID Guarantor Name 05/06/2021 [facility] MiName INSURANCE [facility] [id number] Exabeam Khanh C [place] 09/27/2021 1 [facility] (MEDICARE REPLACEMENT/AD VANTAGE - PPO) [id number] Khanh C [place]gard [id number] Khanh C [place] 09/28/2022 [facility] MiName [employer] [id number] Exabeam Khanh C [place] 04/28/2023 1 [facility] (MEDICARE REPLACEMENT/AD VANTAGE - PPO) [id number] Khanh C [place] [id number] Khanh C [place] 11/01/2023 [facility] MiName INSURANCE [facility] [id number] Exabeam Khanh Rene Notes Date Note Type Note Provider Name and Address Organization Details Recorded Time 05/06/2021 text/html Pt here for UA/U C due to low back ache, cloudy urine with sediment present X 1.5 weeks. pt given cipro 500mg BID pending culture. 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 Jono Pagan MD [address] [facility] [address], [place], [address], [facility] 09/27/2021 13:13:14 09/28/2022 text/html 67 yoM [...] no upper tract abnormality. Jono Pagan MD [address] [place] [address],[address], [place], [address], [facility] 09/28/2022 13:48:55 04/28/2023 text/html 68 yoM [...] since the summer. Jono Pagan MD [address] [facility],[address], [place], [address], [facility] 04/28/2023 12:27:52 11/01/2023 text/html 68 yoM [...] catheter when traveling. Jono Pagan MD [address] [facility] [address], [place], [address], [facility] 11/01/2023 23:05:58
== END 2024-07-01 10:31 | disposition home or self-care (01) ==
LOC: WOUND 10:30
PROVIDERS: PCP Family Medicine; Visit Provider Nurse Practitioner Family
DX: M86.671 Other chronic osteomyelitis, right ankle and foot (principal); L89.614 Pressure ulcer of right heel, stage 4; L89.894 Pressure ulcer of other site, stage 4; L89.314 Pressure ulcer of right buttock, stage 4; S14.155S Other incomplete lesion at C5 level of cervical spinal cord, sequela; Z99.3 Dependence on wheelchair
CPT/HCPCS: 87070; 87081; 87186; 97597; G0463

== ENCOUNTER 2024-07-08 10:25 | Outpatient (CLI) | payer OTHER, SELFPAY | END 2024-07-08 10:26 | disposition home or self-care (01) | LOC: WOUND 10:25 | PROVIDERS: PCP Family Medicine; Visit Provider Nurse Practitioner Family | DX: L89.314 Pressure ulcer of right buttock, stage 4 (principal); M86.671 Other chronic osteomyelitis, right ankle and foot; L89.614 Pressure ulcer of right heel, stage 4; L89.894 Pressure ulcer of other site, stage 4; L89.893 Pressure ulcer of other site, stage 3; S14.155S Other incomplete lesion at C5 level of cervical spinal cord, sequela; Z99.3 Dependence on wheelchair | CPT/HCPCS: 15271; 97602; Q4201 ==

== ENCOUNTER 2024-07-15 10:23 | Outpatient (CLI) | payer OTHER, SELFPAY ==
--- OUTSIDE RECORDS SUMMARY | 2024-07-09 14:35 | XMS_ITS | Data Portability ---
Author Organization [facility], [facility] Address [address] 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 Procedures None recorded. Surgeries None recorded. Imaging US, kidney 2021 022 [facility] Radiology Department, [address] [place], [address], 10/06/2021 09:00:29 Medication Orders oxybutyni n chloride ER 15 mg tablet,ex tended release 24 hr 2021 022 [facility][id number], [address] , [place], [place], [id number], 09/27/2021 12:53:22 nitrofura ntoin macrocrys tori 50 mg capsule [address] [facility]75426, [address] , [place], [place], [id number], 11/01/2023 08:10:56 nitrofura ntoin macrocrys tori 50 mg capsule [address] [facility]49504, [address] , [place], [place], [id number], 11/01/2023 08:10:56 oxybutyni n chloride ER 15 mg tablet,ex tended release 24 hr 2022 023 [facility] #26904, [address] [facility], [place], [place], [id number], 04/28/2023 12:15:06 methenami ne hippurate 1 gram tablet [address] [facility]69004, [address] [place], [place], [id number], 11/01/2023 23:05:30 methenami ne hippurate 1 gram tablet 2023 024 [facility] #81881, [address] [place] [address], [id number], 11/01/2023 23:05:37 oxybutyni n chloride ER 15 mg tablet,ex tended release 24 hr 2023 024 [facility]43929, [address], [place], [place], [id number], 11/01/2023 23:04:50 Patient TargetsNo targets recorded. Patient InstructionsNo instructions recorded. Reason for Referral None Reported. Results Created Date Observation Date Name Description Value Unit Range Abnormal Flag Note LastModifiedBy Organization Detail LastModifiedTime 05/12/2021 urina lysis , dipst ick Color-Status Yellow Not Available [facility] [address], [place], [address], 05/12/2021 11:33:40 05/12/2021 urina lysis , dipst ick Clarity-Stat us Cloudy Not Available [facility] [address], [place], [address], 05/12/2021 11:33:40 05/12/2021 urina lysis , dipst ick pH-Status 7.5 Not Available [facility] [address], [place], [address], 05/12/2021 11:33:40 05/12/2021 urina lysis , dipst ick Nitrates-Sta tus positi ve Not Available [facility] [address], [place], [address], 05/12/2021 11:33:40 05/12/2021 urina lysis , dipst ick Blood-Status Small Not Available [facility] [address], [place], [address], 05/12/2021 11:33:40 05/12/2021 urina lysis , dipst ick Leuko-Status Large Not Available [facility] [address], [place], [address], 05/12/2021 11:33:40 05/06/20 21 05/06/2021 URINE CULTU [...] y Type Sensi tivit y Coleen sis [place] te 1 [place] te 2 ----- ----- ----- ----- ----- [...] s Desk Refer ence or from the [facility] er. S= Susce ptibl e;I= Inter media te;R= Resis tant; ESBL= Resis tance due to confi rmed ESBL Not Available [facility] [address] [facility] [address], [place], [address], 05/08/2021 07:39:35 10/07/19 22 10/05/2021 US, kidne y No observ ation record ed. [address] Radiology Department [address] [place], [address], 09/28/2022 13:47:50 Result Notes None recorded. Procedures Surgical History Date Name Laterality Status Provider Name and Address Organization Details Recorded Time 11/01/19 24 COMPLEX VISIT completed Jono Pagan MD [address] [facility],[address], [place], [address], [facility] 11/01/2023 08:09:54 excision of pressure injury completed Jono Pagan MD [address] [facility],[address], [place], [address], [facility] 09/28/2022 11:00:08 maintenance procedure for cardiac pacemaker system completed Veronika Begum [facility] 11/01/2023 11:05:10 Imaging Results Imaging Date Name Status LastModified by Organiz ation Details LastModified Time 10/05/2021 US, kidney completed [address] Radiology Department [address] [place], [address], 09/28/2022 13:47:50 Procedure Notes None recorded. Medical Equipment None Reported. Allergies Allergen ID Allergen Name Allergen Category Reaction Reaction Severity Criticality Documentation Date Start Date Code Code System Note Provider Name and Address Organization Details Recorded Time [id number] 2824e Medicinal product containin g cephalosp pao and acting as antibacte rial agent (product) medicatio n Not available Not available Not available 09/27/2021 13167 9009 SNOMED Not Available Not Available Not Available [id number] [id number] 2824e shellfish derived food,medi cation Not available Not available Not available 11/01/2023 74960 UNK Not Available Not Available Not Available [...] Updated DateTime 09/28/2022 182.88 cm 19.4 kg/m2 77997.[address] [facility] 09/28/2022 10:55:01 Date Recorded Body height Body mass index (BMI) Body weight Provider Name and Address Organization Details Last Updated DateTime 04/28/2023 182.88 cm 19.4 kg/m2 80360.[address] [facility] 04/28/2023 11:39:29 Date Recorded Body height Body mass index (BMI) Body weight Provider Name and Address Organization Details Last Updated DateTime 10/12/2023 182.88 cm 19.4 kg/m2 93631.71 g Veronika Begum [facility] 10/12/2023 12:26:19 Date Recorded Body height Body mass index (BMI) Body weight Provider Name and Address Organization Details Last Updated DateTime 11/01/2023 182.88 cm 18.7 kg/m2 52501.75 g Veronika Begum [facility] 11/01/2023 11:02:57 Date Recorded Body height Body mass index (BMI) Body weight Provider Name and Address Organization Details Last Updated DateTime 05/06/2021 182.88 cm 19.4 kg/m2 56808.71 g Chelsea Medrano [facility] 05/06/2021 12:47:45 Date Recorded Body height Body mass index (BMI) Body weight Provider Name and Address Organization Details Last Updated DateTime 09/27/2021 182.88 cm 19.4 kg/m2 25202.71 g Nasreen Salas [facility] 09/27/2021 12:43:07 Social History Question Answer Notes LastModified by Organizat ion Details LastModified Time Tobacco Smoking Status [facility] 14:55:09 What Is Your [...] Depression N Immunizations Vaccine Type Date Status Note Provider Nam e and Address Organization Details Recorded Time IPV 5 completed Mindy hwang [facility] 04/28/2023 11:39:35 COVID-19, mRNA, LNP-S, PF, 30 mcg/0.3 mL dose 1 completed Mindy hwang [facility] 04/28/2023 11:39:35 COVID-19, mRNA, LNP-S, PF, 30 mcg/0.3 mL dose 1 [facility] 04/28/2023 11:39:35 Pneumococcal conjugate PCV20, polysaccharide [id number] conjugate, adjuvant, PF 3 completed [facility] 04/28/2023 11:39:35 influenza, unspecified formulation 6 completed Mindy hwang [facility] 04/28/2023 11:39:35 Tdap 7 completed Mindy hwang [facility] 04/28/2023 11:39:35 Tdap 9 completed Mindy hwang [facility] 04/28/2023 11:39:35 zoster live 5 completed Mindy Osterbauer null, [facility] 04/28/2023 11:39:35 Influenza, split virus, trivalent, PF 1 completed Mindy Osterbauer null, [facility] 04/28/2023 11:39:35 Influenza, split virus, trivalent, PF 2 completed Mindy Osterbauer null, [facility] 04/28/2023 11:39:35 Td (adult), 2 Lf tetanus toxoid, preservative free, adsorbed 7 completed Mindy Osterbauer null, [facility] 04/28/2023 11:39:35 Hep B, adult 7 completed Mindy Osterbauer null, [facility] 04/28/2023 11:39:35 Hep B, adult 5 completed Mindy Osterbauer null, [facility] 04/28/2023 11:39:35 Hep B, adult 7 completed Mindy Osterbauer null, [facility] 04/28/2023 11:39:35 Hep A, adult 3 completed Mindy Osterbauer null, [facility] 04/28/2023 11:39:35 Hep A, adult 5 completed Mindy Osterbauer null, [facility] 04/28/2023 11:39:35 Hep A, adult 3 completed Mindy Osterbauer null, [facility] 04/28/2023 11:39:35 typhoid, ViCPs 7 completed Mindy Osterbauer null, [facility] 04/28/2023 11:39:35 typhoid, ViCPs 3 completed Mindy Osterbauer null, [facility] 04/28/2023 11:39:35 Past Encounters Encounter ID Performer Location Encounter Start Date Encounter Closed Date Diagnosis/Indication Diagnosis SNOMED-CT Code Diagnosis ICD10 Code [id number] Jono Pagan MD [facility] [address] [place] [address] 02/18/2021 14:23:42 02/19/2021 12:13:21 Neurogenic urinary bladder 348247348 N31.9 Spinal cord injury 05333 004 G95.89 Spasm of u rinary bladder 161507191 N32.89 Recurrent urinary tract infection 072995570 N39.0 Acute urin estefany tract infection 900806259 N39.0 [id number] Marlene Greer [facility] [address] [place] [address] 05/06/2021 11:58:15 05/11/2021 03:52:30 Abnormal urine 497276757 R82.90 [id number] Jono Pagan MD [facility] [address] [place] [address] 09/27/2021 12:37:54 10/27/2021 09:29:43 Neurogenic urinary bladder 303670056 N31.9 Spinal cord injury 18186 004 G95.89 Spasm of u rinary bladder 899472724 N32.89 Recurrent urinary tract infection 677669019 N39.0 [id number] Jono Pagan MD [facility] [address] [place] [address] 09/28/2022 10:53:21 10/01/2022 11:26:52 Neurogenic urinary bladder 892972029 N31.9 Spinal cord injury 10007 004 G95.89 Spasm of u rinary bladder 147116233 N32.89 Recurrent urinary tract infection 182500631 N39.0 [id number] Jono Pagan MD [facility] [address] [place] [address] 04/28/2023 11:30:11 05/04/2023 11:13:13 Neurogenic urinary bladder 880972994 N31.9 Spinal cord injury 89290 004 G95.89 Spasm of u rinary bladder 622171959 N32.89 Recurrent urinary tract infection 974114055 N39.0 [id number] Jono Pagan MD [facility] [address] [place] [address] 11/01/2023 10:52:02 11/02/2023 14:01:41 Neurogenic urinary bladder 604082757 N31.9 Spinal cord injury 35674 004 G95.89 Spasm of u rinary bladder 732750629 N32.89 Recurrent urinary tract infection 088119036 N39.0 Health Concerns Section Related Observation LastModified by Organization Detai ls LastModified Time None Recorded Concern Status LastModified by Organization Details LastModified Time None Recorded Advance Directives Directive None Recorded Payers Encounter Date Sequence Insurance Name Policy Number Policy Quinones Covered Member ID Quinones Member ID Guarantor Name 05/06/2021 [facility] [employer] [id number] [employer] Khanh C [place] 09/27/2021 1 [facility] (MEDICARE REPLACEMENT/AD VANTAGE - PPO) [id number] Khanh C Edgard [id number] Khanh C [employer] 09/28/2022 [facility] [employer] [id number] [employer] Khanh C [place] 04/28/2023 1 [place] [employer] (MEDICARE REPLACEMENT/AD VANTAGE - PPO) [id number] Khanh C Edgard [id number] Khanh C Edgard 11/01/2023 [facility] [employer] [id number] [employer] Khanh Rene Notes Date Note Type Note Provider Name and Address Organization Details Recorded Time 05/06/2021 text/html Pt here for UA/U C due to low back ache, cloudy urine with sediment present X 1.5 weeks. pt given cipro 500mg BID pending culture. KN, CLIFF Greer [place], [place] - [facility] 07/20/2021 14:23:40 09/27/2021 text/html 66 yoM [...] over last 7 months. Jono Pagan MD [address] [place] [address],[address], [place], [address], [facility] 09/27/2021 13:13:14 09/28/2022 text/html 67 yoM [...] no upper tract abnormality. Jono Pagan MD [address] [place] [address],[address], [place], [address], [facility] 09/28/2022 13:48:55 04/28/2023 text/html 68 yoM [...] UTIs since the summer. Jono Pagan MD [address] [place] [address],[address], [place], [address], [facility] 04/28/2023 12:27:52 11/01/2023 text/html 68 yoM [...] Pagan MD [address] [facility],[address], [place], [address], [facility] 11/01/2023 23:05:58
== END 2024-07-15 10:24 | disposition home or self-care (01) ==
PROVIDERS: PCP Family Medicine; Visit Provider Family Medicine
DX: L89.314 Pressure ulcer of right buttock, stage 4 (principal); L89.894 Pressure ulcer of other site, stage 4; S14.155S Other incomplete lesion at C5 level of cervical spinal cord, sequela; Z99.3 Dependence on wheelchair
CPT/HCPCS: 11042

== ENCOUNTER 2024-07-22 10:25 | Outpatient (CLI) | payer OTHER, SELFPAY | END 2024-07-22 10:26 | disposition home or self-care (01) | LOC: WOUND 10:26 | PROVIDERS: PCP Family Medicine; Visit Provider Physician Assistant Surgical | DX: L89.314 Pressure ulcer of right buttock, stage 4 (principal); M86.671 Other chronic osteomyelitis, right ankle and foot; L89.614 Pressure ulcer of right heel, stage 4; L89.894 Pressure ulcer of other site, stage 4; Z99.3 Dependence on wheelchair | CPT/HCPCS: 11042; 15271; Q4201 ==

== ENCOUNTER 2024-07-29 10:27 | Outpatient (CLI) | payer OTHER, SELFPAY | END 2024-07-29 10:28 | disposition home or self-care (01) | LOC: WOUND 10:28 | PROVIDERS: PCP Family Medicine; Visit Provider Nurse Practitioner Family | DX: L89.314 Pressure ulcer of right buttock, stage 4 (principal); I73.9 Peripheral vascular disease, unspecified; G82.22 Paraplegia, incomplete; S14.155S Other incomplete lesion at C5 level of cervical spinal cord, sequela; Z99.3 Dependence on wheelchair | CPT/HCPCS: 97597 ==

== ENCOUNTER 2024-08-14 12:58 | Outpatient (CLI) | payer OTHER, SELFPAY | END 2024-08-14 12:59 | disposition home or self-care (01) | PROVIDERS: PCP Family Medicine; Visit Provider Surgery | DX: M86.671 Other chronic osteomyelitis, right ankle and foot (principal); L89.614 Pressure ulcer of right heel, stage 4; L89.314 Pressure ulcer of right buttock, stage 4; L89.894 Pressure ulcer of other site, stage 4; I73.9 Peripheral vascular disease, unspecified; S14.155S Other incomplete lesion at C5 level of cervical spinal cord, sequela; Z99.3 Dependence on wheelchair | CPT/HCPCS: G0463 ==

== ENCOUNTER 2024-08-19 10:22 | Outpatient (CLI) | payer OTHER, SELFPAY | END 2024-08-19 10:23 | disposition home or self-care (01) | LOC: WOUND 10:22 | PROVIDERS: PCP Family Medicine; Visit Provider Nurse Practitioner Family | DX: L89.314 Pressure ulcer of right buttock, stage 4 (principal) | CPT/HCPCS: 97597 ==

== ENCOUNTER 2024-08-26 08:26 | Outpatient (CLI) | payer OTHER, SELFPAY | END 2024-08-26 09:00 | disposition home or self-care (01) | LOC: WOUND 09-03 10:44 | PROVIDERS: PCP Family Medicine; Visit Provider Nurse Practitioner Family | DX: L89.314 Pressure ulcer of right buttock, stage 4 (principal); Z99.3 Dependence on wheelchair | CPT/HCPCS: 97597 ==

== ENCOUNTER 2024-09-09 10:27 | Outpatient (CLI) | payer OTHER, SELFPAY | END 2024-09-09 10:28 | disposition home or self-care (01) | LOC: WOUND 10:27 | PROVIDERS: PCP Family Medicine; Visit Provider Nurse Practitioner Family | DX: L89.314 Pressure ulcer of right buttock, stage 4 (principal); L89.614 Pressure ulcer of right heel, stage 4; S91.311A Laceration without foreign body, right foot, initial encounter; W23.2XXA Caught, crushed, jammed or pinched between a moving and stationary object, initial encounter; I73.9 Peripheral vascular disease, unspecified; Z99.3 Dependence on wheelchair | CPT/HCPCS: 11042; 15271; 97597; G0463; Q4201 ==

== ENCOUNTER 2024-09-16 10:27 | Outpatient (CLI) | payer OTHER, SELFPAY | END 2024-09-16 10:28 | disposition home or self-care (01) | PROVIDERS: PCP Family Medicine; Visit Provider Nurse Practitioner Family | DX: L89.314 Pressure ulcer of right buttock, stage 4 (principal); L89.614 Pressure ulcer of right heel, stage 4; S91.311A Laceration without foreign body, right foot, initial encounter; Z99.3 Dependence on wheelchair | CPT/HCPCS: 97597; 97602 ==

== ENCOUNTER 2024-09-23 10:20 | Outpatient (CLI) | payer OTHER, SELFPAY | END 2024-09-23 10:21 | disposition home or self-care (01) | LOC: WOUND 10:20 | PROVIDERS: PCP Family Medicine; Visit Provider Nurse Practitioner Family | DX: L89.314 Pressure ulcer of right buttock, stage 4 (principal); L89.614 Pressure ulcer of right heel, stage 4; S91.311A Laceration without foreign body, right foot, initial encounter; Z99.3 Dependence on wheelchair; I73.9 Peripheral vascular disease, unspecified | CPT/HCPCS: 97597 ==

== ENCOUNTER 2024-09-30 10:23 | Outpatient (CLI) | payer OTHER, SELFPAY | END 2024-09-30 10:24 | disposition home or self-care (01) | LOC: WOUND 10:23 | PROVIDERS: PCP Family Medicine; Visit Provider Nurse Practitioner Family | DX: L89.314 Pressure ulcer of right buttock, stage 4 (principal); L89.614 Pressure ulcer of right heel, stage 4 | CPT/HCPCS: 97597 ==

== ENCOUNTER 2024-10-07 10:23 | Outpatient (CLI) | payer OTHER, SELFPAY | END 2024-10-07 10:24 | disposition home or self-care (01) | LOC: WOUND 10:24 | PROVIDERS: PCP Family Medicine; Visit Provider Nurse Practitioner Family | DX: L89.314 Pressure ulcer of right buttock, stage 4 (principal); L89.614 Pressure ulcer of right heel, stage 4; I73.9 Peripheral vascular disease, unspecified; S14.155S Other incomplete lesion at C5 level of cervical spinal cord, sequela; Z99.3 Dependence on wheelchair | CPT/HCPCS: 15271; 97597; Q4201 ==

== ENCOUNTER 2024-10-14 10:23 | Outpatient (CLI) | payer OTHER, SELFPAY | END 2024-10-14 10:24 | disposition home or self-care (01) | LOC: WOUND 10:23 | PROVIDERS: PCP Family Medicine; Visit Provider Nurse Practitioner Family | DX: L89.314 Pressure ulcer of right buttock, stage 4 (principal); L89.614 Pressure ulcer of right heel, stage 4; I73.9 Peripheral vascular disease, unspecified; Z99.3 Dependence on wheelchair | CPT/HCPCS: 97602; G0463 ==

== ENCOUNTER 2024-10-21 10:22 | Outpatient (CLI) | payer OTHER, SELFPAY | END 2024-10-21 10:23 | disposition home or self-care (01) | LOC: WOUND 10:22 | PROVIDERS: PCP Family Medicine; Visit Provider Nurse Practitioner Family | DX: L89.314 Pressure ulcer of right buttock, stage 4 (principal); S14.155S Other incomplete lesion at C5 level of cervical spinal cord, sequela; R26.9 Unspecified abnormalities of gait and mobility; Z99.3 Dependence on wheelchair | CPT/HCPCS: 97597 ==

== ENCOUNTER 2024-10-28 10:29 | Outpatient (CLI) | payer OTHER, SELFPAY | END 2024-10-28 10:30 | disposition home or self-care (01) | PROVIDERS: PCP Family Medicine; Visit Provider Surgery | DX: L89.314 Pressure ulcer of right buttock, stage 4 (principal); L89.614 Pressure ulcer of right heel, stage 4; I73.9 Peripheral vascular disease, unspecified; Z99.3 Dependence on wheelchair | CPT/HCPCS: G0463 ==

== ENCOUNTER 2024-11-04 14:46 | Outpatient (CLI) | payer OTHER, SELFPAY | END 2024-11-04 14:47 | disposition home or self-care (01) | LOC: WOUND 14:46 | PROVIDERS: PCP Family Medicine; Visit Provider Physician Assistant Surgical | DX: L89.314 Pressure ulcer of right buttock, stage 4 (principal); I73.9 Peripheral vascular disease, unspecified; Z99.3 Dependence on wheelchair | CPT/HCPCS: 11042 ==

== ENCOUNTER 2024-11-11 10:15 | Outpatient (CLI) | payer OTHER, SELFPAY | END 2024-11-11 10:16 | disposition home or self-care (01) | LOC: WOUND 10:15 | PROVIDERS: PCP Family Medicine; Visit Provider Nurse Practitioner Family | DX: L89.314 Pressure ulcer of right buttock, stage 4 (principal); I73.9 Peripheral vascular disease, unspecified; R26.9 Unspecified abnormalities of gait and mobility; S14.155S Other incomplete lesion at C5 level of cervical spinal cord, sequela; Z99.3 Dependence on wheelchair; G82.20 Paraplegia, unspecified | CPT/HCPCS: 15271; Q4201 ==

== ENCOUNTER 2024-11-18 10:28 | Outpatient (CLI) | payer OTHER, SELFPAY | END 2024-11-18 10:29 | disposition home or self-care (01) | LOC: WOUND 10:28 | PROVIDERS: PCP Family Medicine; Visit Provider Nurse Practitioner Family | DX: L89.314 Pressure ulcer of right buttock, stage 4 (principal); I73.9 Peripheral vascular disease, unspecified; Z99.3 Dependence on wheelchair; G82.20 Paraplegia, unspecified | CPT/HCPCS: G0463 ==

== ENCOUNTER 2024-11-25 14:56 | Outpatient (CLI) | payer OTHER, SELFPAY | END 2024-11-25 14:57 | disposition home or self-care (01) | PROVIDERS: PCP Family Medicine; Visit Provider Physician Assistant Surgical | DX: L89.314 Pressure ulcer of right buttock, stage 4 (principal); I73.9 Peripheral vascular disease, unspecified; G82.20 Paraplegia, unspecified; Z99.3 Dependence on wheelchair | CPT/HCPCS: 15271; Q4201 ==

== ENCOUNTER 2024-12-02 10:25 | Outpatient (CLI) | payer OTHER, SELFPAY | END 2024-12-02 10:26 | disposition home or self-care (01) | LOC: WOUND 10:25 | PROVIDERS: PCP Family Medicine; Visit Provider Nurse Practitioner Family | DX: I73.9 Peripheral vascular disease, unspecified (principal); G82.20 Paraplegia, unspecified; Z99.3 Dependence on wheelchair; L89.314 Pressure ulcer of right buttock, stage 4 | CPT/HCPCS: 97597 ==

== ENCOUNTER 2024-12-17 10:25 | Outpatient (CLI) | payer OTHER, SELFPAY | END 2024-12-17 10:26 | disposition home or self-care (01) | LOC: WOUND 10:26 | PROVIDERS: PCP Family Medicine; Visit Provider Family Medicine | DX: L89.314 Pressure ulcer of right buttock, stage 4 (principal); I73.9 Peripheral vascular disease, unspecified; R26.9 Unspecified abnormalities of gait and mobility; Z99.3 Dependence on wheelchair | CPT/HCPCS: 11042 ==

== ENCOUNTER 2024-12-23 10:27 | Outpatient (CLI) | payer OTHER, SELFPAY | END 2024-12-23 10:28 | disposition home or self-care (01) | PROVIDERS: PCP Family Medicine; Visit Provider Physician Assistant | DX: L89.314 Pressure ulcer of right buttock, stage 4 (principal); I73.9 Peripheral vascular disease, unspecified; S14.155S Other incomplete lesion at C5 level of cervical spinal cord, sequela; G82.20 Paraplegia, unspecified; R26.9 Unspecified abnormalities of gait and mobility; Z99.3 Dependence on wheelchair | CPT/HCPCS: 97597 ==

== ENCOUNTER 2024-12-30 10:24 | Outpatient (CLI) | payer OTHER, SELFPAY | END 2024-12-30 10:25 | disposition home or self-care (01) | LOC: WOUND 10:25 | PROVIDERS: PCP Family Medicine; Visit Provider Physician Assistant | DX: L89.314 Pressure ulcer of right buttock, stage 4 (principal); I73.9 Peripheral vascular disease, unspecified; S14.155S Other incomplete lesion at C5 level of cervical spinal cord, sequela; Z99.3 Dependence on wheelchair; G82.20 Paraplegia, unspecified | CPT/HCPCS: 97597 ==

== ENCOUNTER 2025-01-06 10:31 | Outpatient (CLI) | payer OTHER, SELFPAY | END 2025-01-06 10:32 | disposition home or self-care (01) | LOC: WOUND 10:31 | PROVIDERS: PCP Family Medicine; Visit Provider Family Medicine | DX: L89.314 Pressure ulcer of right buttock, stage 4 (principal); L89.623 Pressure ulcer of left heel, stage 3; S14.155S Other incomplete lesion at C5 level of cervical spinal cord, sequela; I73.9 Peripheral vascular disease, unspecified; Z99.3 Dependence on wheelchair | CPT/HCPCS: 11042 ==

== ENCOUNTER 2025-01-13 08:17 | Outpatient (CLI) | payer OTHER, SELFPAY | END 2025-01-13 08:18 | disposition home or self-care (01) | LOC: WOUND 08:17 | PROVIDERS: PCP Family Medicine; Visit Provider Physician Assistant | DX: L89.314 Pressure ulcer of right buttock, stage 4 (principal); L89.613 Pressure ulcer of right heel, stage 3; I73.9 Peripheral vascular disease, unspecified; Z99.3 Dependence on wheelchair | CPT/HCPCS: 97597 ==

== ENCOUNTER 2025-01-20 10:24 | Outpatient (CLI) | payer OTHER, SELFPAY | END 2025-01-20 10:25 | disposition home or self-care (01) | LOC: WOUND 10:25 | PROVIDERS: PCP Family Medicine; Visit Provider Physician Assistant | DX: L89.314 Pressure ulcer of right buttock, stage 4 (principal); L89.613 Pressure ulcer of right heel, stage 3; I73.9 Peripheral vascular disease, unspecified; Z99.3 Dependence on wheelchair | CPT/HCPCS: 97597 ==

== ENCOUNTER 2025-01-27 10:23 | Outpatient (CLI) | payer OTHER, SELFPAY | END 2025-01-27 10:24 | disposition home or self-care (01) | LOC: WOUND 10:24 | PROVIDERS: PCP Family Medicine; Visit Provider Family Medicine | DX: L89.314 Pressure ulcer of right buttock, stage 4 (principal); L89.614 Pressure ulcer of right heel, stage 4; I73.9 Peripheral vascular disease, unspecified; R26.9 Unspecified abnormalities of gait and mobility; Z99.3 Dependence on wheelchair | CPT/HCPCS: 11042 ==

== ENCOUNTER 2025-02-03 10:21 | Outpatient (CLI) | payer OTHER, SELFPAY | END 2025-02-03 10:22 | disposition home or self-care (01) | LOC: WOUND 10:21 | PROVIDERS: PCP Family Medicine; Visit Provider Family Medicine | DX: L89.314 Pressure ulcer of right buttock, stage 4 (principal); L89.613 Pressure ulcer of right heel, stage 3; I73.9 Peripheral vascular disease, unspecified; R26.9 Unspecified abnormalities of gait and mobility; S14.155S Other incomplete lesion at C5 level of cervical spinal cord, sequela; Z99.3 Dependence on wheelchair | CPT/HCPCS: 97597 ==

== ENCOUNTER 2025-02-04 15:05 | Outpatient (CLI) | payer OTHER, SELFPAY ==
[2025-02-04 22:11] LABS: Appearance Urine Cloudy (Clear)
== END 2025-02-04 15:06 | disposition home or self-care (01) ==
LOC: NPINS 15:10
PROVIDERS: PCP Family Medicine; Visit Provider Physician Assistant
DX: N39.0 Urinary tract infection, site not specified (principal)
CPT/HCPCS: 81001; 81003; 87077; 87086; 87186

== ENCOUNTER 2025-02-07 08:06 | Outpatient (CLI) | payer OTHER, SELFPAY | END 2025-02-07 08:07 | disposition home or self-care (01) | LOC: WOUND 08:06 | PROVIDERS: PCP Family Medicine; Visit Provider Nurse Practitioner Family | DX: L89.613 Pressure ulcer of right heel, stage 3 (principal); L89.314 Pressure ulcer of right buttock, stage 4; L89.614 Pressure ulcer of right heel, stage 4; I73.9 Peripheral vascular disease, unspecified; S31.30XA Unspecified open wound of scrotum and testes, initial encounter | CPT/HCPCS: 97597; G0463 ==

== ENCOUNTER 2025-02-14 08:00 | Outpatient (CLI) | payer OTHER, SELFPAY | END 2025-02-14 08:01 | disposition home or self-care (01) | LOC: WOUND 08:00 | PROVIDERS: PCP Family Medicine; Visit Provider Nurse Practitioner Family | DX: L89.614 Pressure ulcer of right heel, stage 4 (principal); I73.9 Peripheral vascular disease, unspecified; L89.314 Pressure ulcer of right buttock, stage 4; S14.155S Other incomplete lesion at C5 level of cervical spinal cord, sequela; Z99.3 Dependence on wheelchair | CPT/HCPCS: 97597 ==

== ENCOUNTER 2025-02-21 07:59 | Outpatient (CLI) | payer OTHER, SELFPAY | END 2025-02-21 08:00 | disposition home or self-care (01) | PROVIDERS: PCP Family Medicine; Visit Provider Nurse Practitioner Family | DX: L89.613 Pressure ulcer of right heel, stage 3 (principal); L89.614 Pressure ulcer of right heel, stage 4; L89.314 Pressure ulcer of right buttock, stage 4; I73.9 Peripheral vascular disease, unspecified; S14.155S Other incomplete lesion at C5 level of cervical spinal cord, sequela; G82.20 Paraplegia, unspecified; Z99.3 Dependence on wheelchair | CPT/HCPCS: 15275; Q4158 ==

== ENCOUNTER 2025-02-28 07:56 | Outpatient (CLI) | payer OTHER, SELFPAY | END 2025-02-28 07:57 | disposition home or self-care (01) | LOC: WOUND 07:57 | PROVIDERS: PCP Family Medicine; Visit Provider Nurse Practitioner Family | DX: L89.314 Pressure ulcer of right buttock, stage 4 (principal); M86.68 Other chronic osteomyelitis, other site; L89.613 Pressure ulcer of right heel, stage 3; I73.9 Peripheral vascular disease, unspecified; S14.155S Other incomplete lesion at C5 level of cervical spinal cord, sequela; R26.9 Unspecified abnormalities of gait and mobility; Z99.3 Dependence on wheelchair | CPT/HCPCS: G0463 ==

== ENCOUNTER 2025-03-07 07:54 | Outpatient (CLI) | payer OTHER, SELFPAY | END 2025-03-07 07:55 | disposition home or self-care (01) | LOC: WOUND 07:55 | PROVIDERS: PCP Family Medicine; Visit Provider Nurse Practitioner Family | DX: L89.314 Pressure ulcer of right buttock, stage 4 (principal); L89.614 Pressure ulcer of right heel, stage 4; L89.613 Pressure ulcer of right heel, stage 3; S14.155S Other incomplete lesion at C5 level of cervical spinal cord, sequela; R26.9 Unspecified abnormalities of gait and mobility; Z99.3 Dependence on wheelchair | CPT/HCPCS: 15271; 15275; Q4158 ==

== ENCOUNTER 2025-03-14 08:54 | Outpatient (CLI) | payer OTHER, SELFPAY | END 2025-03-14 08:55 | disposition home or self-care (01) | LOC: WOUND 08:54 | PROVIDERS: PCP Family Medicine; Visit Provider Nurse Practitioner Family | DX: L89.314 Pressure ulcer of right buttock, stage 4 (principal); L89.614 Pressure ulcer of right heel, stage 4; L89.613 Pressure ulcer of right heel, stage 3; S91.301A Unspecified open wound, right foot, initial encounter; S14.155S Other incomplete lesion at C5 level of cervical spinal cord, sequela; Z99.3 Dependence on wheelchair; M86.68 Other chronic osteomyelitis, other site; G82.20 Paraplegia, unspecified | CPT/HCPCS: G0463 ==

== ENCOUNTER 2025-03-21 08:00 | Outpatient (CLI) | payer OTHER, SELFPAY | END 2025-03-21 08:01 | disposition home or self-care (01) | LOC: WOUND 08:00 | PROVIDERS: PCP Family Medicine; Visit Provider Nurse Practitioner Family | DX: L89.614 Pressure ulcer of right heel, stage 4 (principal); S91.302A Unspecified open wound, left foot, initial encounter; W22.8XXA Striking against or struck by other objects, initial encounter | CPT/HCPCS: 11042 ==

== ENCOUNTER 2025-03-28 09:03 | Outpatient (CLI) | payer OTHER, SELFPAY | END 2025-03-28 09:04 | disposition home or self-care (01) | PROVIDERS: PCP Family Medicine; Visit Provider Nurse Practitioner Family | DX: L89.314 Pressure ulcer of right buttock, stage 4 (principal); L89.613 Pressure ulcer of right heel, stage 3; L89.614 Pressure ulcer of right heel, stage 4; S99.822A Other specified injuries of left foot, initial encounter; I73.9 Peripheral vascular disease, unspecified; R26.9 Unspecified abnormalities of gait and mobility; Z99.3 Dependence on wheelchair | CPT/HCPCS: 11042; 15271; 15275; Q4158 ==

== ENCOUNTER 2025-04-04 08:02 | Outpatient (CLI) | payer OTHER, SELFPAY | END 2025-04-04 08:03 | disposition home or self-care (01) | LOC: WOUND 08:02 | PROVIDERS: PCP Family Medicine; Visit Provider Nurse Practitioner Family | DX: S99.822A Other specified injuries of left foot, initial encounter (principal); I73.9 Peripheral vascular disease, unspecified; R26.9 Unspecified abnormalities of gait and mobility; Z99.3 Dependence on wheelchair; L89.314 Pressure ulcer of right buttock, stage 4 | CPT/HCPCS: 11042 ==

== ENCOUNTER 2025-04-11 08:03 | Outpatient (CLI) | payer OTHER, SELFPAY | END 2025-04-11 08:04 | disposition home or self-care (01) | LOC: WOUND 08:03 | PROVIDERS: PCP Family Medicine; Visit Provider Nurse Practitioner Family | DX: L89.314 Pressure ulcer of right buttock, stage 4 (principal); L89.613 Pressure ulcer of right heel, stage 3; L89.614 Pressure ulcer of right heel, stage 4; S91.302A Unspecified open wound, left foot, initial encounter; I73.9 Peripheral vascular disease, unspecified; R26.9 Unspecified abnormalities of gait and mobility; G82.20 Paraplegia, unspecified; S14.155S Other incomplete lesion at C5 level of cervical spinal cord, sequela; Z99.3 Dependence on wheelchair | CPT/HCPCS: 11042; 15271; 15275; Q4158 ==

== ENCOUNTER 2025-04-18 07:55 | Outpatient (CLI) | payer OTHER, SELFPAY | END 2025-04-18 07:56 | disposition home or self-care (01) | LOC: WOUND 07:55 | PROVIDERS: PCP Family Medicine; Visit Provider Nurse Practitioner Family | DX: L89.620 Pressure ulcer of left heel, unstageable (principal); I73.9 Peripheral vascular disease, unspecified; R26.9 Unspecified abnormalities of gait and mobility; Z99.3 Dependence on wheelchair | CPT/HCPCS: 11042 ==

== ENCOUNTER 2025-04-23 08:26 | Outpatient (CLI) | payer OTHER, SELFPAY | END 2025-04-23 08:27 | disposition home or self-care (01) | LOC: WOUND 08:26 | PROVIDERS: PCP Family Medicine; Visit Provider Nurse Practitioner Family | DX: L89.314 Pressure ulcer of right buttock, stage 4 (principal); L89.623 Pressure ulcer of left heel, stage 3; L89.613 Pressure ulcer of right heel, stage 3; S81.811A Laceration without foreign body, right lower leg, initial encounter; I73.9 Peripheral vascular disease, unspecified; Z99.3 Dependence on wheelchair; R26.9 Unspecified abnormalities of gait and mobility | CPT/HCPCS: 15271; 15275; Q4158 ==

== ENCOUNTER 2025-05-01 14:48 | Outpatient (CLI) | payer OTHER, SELFPAY | END 2025-05-01 14:49 | disposition home or self-care (01) | LOC: WOUND 14:48 | PROVIDERS: PCP Family Medicine; Visit Provider Nurse Practitioner Family | DX: S81.811A Laceration without foreign body, right lower leg, initial encounter (principal); I73.9 Peripheral vascular disease, unspecified; Z99.3 Dependence on wheelchair; R26.9 Unspecified abnormalities of gait and mobility | CPT/HCPCS: 97597 ==

== ENCOUNTER 2025-05-06 13:55 | Outpatient (CLI) | payer OTHER, SELFPAY | END 2025-05-06 13:56 | disposition home or self-care (01) | LOC: WOUND 13:55 | PROVIDERS: PCP Family Medicine; Visit Provider Nurse Practitioner Family | DX: L89.314 Pressure ulcer of right buttock, stage 4 (principal); L89.623 Pressure ulcer of left heel, stage 3; L89.613 Pressure ulcer of right heel, stage 3; S81.811A Laceration without foreign body, right lower leg, initial encounter; I73.9 Peripheral vascular disease, unspecified; Z99.3 Dependence on wheelchair; R26.9 Unspecified abnormalities of gait and mobility | CPT/HCPCS: 11042; 15271; 15275; Q4158 ==

== ENCOUNTER 2025-05-16 07:52 | Outpatient (CLI) | payer OTHER, SELFPAY | END 2025-05-16 07:53 | disposition home or self-care (01) | LOC: WOUND 07:52 | PROVIDERS: PCP Family Medicine; Visit Provider Nurse Practitioner Family | DX: S81.811A Laceration without foreign body, right lower leg, initial encounter (principal); I73.9 Peripheral vascular disease, unspecified; Z99.3 Dependence on wheelchair; R26.9 Unspecified abnormalities of gait and mobility | CPT/HCPCS: 97597 ==

== ENCOUNTER 2025-05-23 08:06 | Outpatient (CLI) | payer OTHER, SELFPAY | END 2025-05-23 08:07 | disposition home or self-care (01) | LOC: WOUND 08:06 | PROVIDERS: PCP Family Medicine; Visit Provider Nurse Practitioner Family | DX: L89.314 Pressure ulcer of right buttock, stage 4 (principal); L89.623 Pressure ulcer of left heel, stage 3; L89.613 Pressure ulcer of right heel, stage 3; L89.893 Pressure ulcer of other site, stage 3; I73.9 Peripheral vascular disease, unspecified; Z99.3 Dependence on wheelchair; R26.9 Unspecified abnormalities of gait and mobility | CPT/HCPCS: 11042; 15271; 15275; Q4158 ==

== ENCOUNTER 2025-05-30 08:05 | Outpatient (CLI) | payer OTHER, SELFPAY | END 2025-05-30 08:06 | disposition home or self-care (01) | LOC: WOUND 08:05 | PROVIDERS: PCP Family Medicine; Visit Provider Nurse Practitioner Family | DX: L89.314 Pressure ulcer of right buttock, stage 4 (principal); L89.623 Pressure ulcer of left heel, stage 3; L89.613 Pressure ulcer of right heel, stage 3; L89.893 Pressure ulcer of other site, stage 3; I73.9 Peripheral vascular disease, unspecified; Z99.3 Dependence on wheelchair; R26.9 Unspecified abnormalities of gait and mobility | CPT/HCPCS: G0463 ==

== ENCOUNTER 2025-06-06 08:03 | Outpatient (CLI) | payer OTHER, SELFPAY | END 2025-06-06 08:04 | disposition home or self-care (01) | LOC: WOUND 08:03 | PROVIDERS: PCP Family Medicine; Visit Provider Nurse Practitioner Family | DX: L89.613 Pressure ulcer of right heel, stage 3 (principal); L89.893 Pressure ulcer of other site, stage 3; L89.314 Pressure ulcer of right buttock, stage 4; I73.9 Peripheral vascular disease, unspecified; G82.20 Paraplegia, unspecified; S14.155S Other incomplete lesion at C5 level of cervical spinal cord, sequela; Z99.3 Dependence on wheelchair | CPT/HCPCS: 11042 ==

== ENCOUNTER 2025-06-13 07:53 | Outpatient (CLI) | payer OTHER, SELFPAY | END 2025-06-13 07:54 | disposition home or self-care (01) | LOC: WOUND 07:53 | PROVIDERS: PCP Family Medicine; Visit Provider Nurse Practitioner Family | DX: L89.314 Pressure ulcer of right buttock, stage 4 (principal); L89.613 Pressure ulcer of right heel, stage 3; L89.893 Pressure ulcer of other site, stage 3; I73.9 Peripheral vascular disease, unspecified; S14.155S Other incomplete lesion at C5 level of cervical spinal cord, sequela; Z99.3 Dependence on wheelchair | CPT/HCPCS: 15271; 15275; Q4158 ==

== ENCOUNTER 2025-06-20 08:09 | Outpatient (CLI) | payer OTHER, SELFPAY | END 2025-06-20 08:10 | disposition home or self-care (01) | LOC: WOUND 08:09 | PROVIDERS: PCP Family Medicine; Visit Provider Physician Assistant | DX: L89.314 Pressure ulcer of right buttock, stage 4 (principal); L89.893 Pressure ulcer of other site, stage 3; L89.613 Pressure ulcer of right heel, stage 3; I73.9 Peripheral vascular disease, unspecified; R26.9 Unspecified abnormalities of gait and mobility; G82.20 Paraplegia, unspecified; S14.155S Other incomplete lesion at C5 level of cervical spinal cord, sequela; Z99.3 Dependence on wheelchair | CPT/HCPCS: G0463 ==

== ENCOUNTER 2025-06-27 12:54 | Outpatient (CLI) | payer OTHER, SELFPAY | END 2025-06-27 12:55 | disposition home or self-care (01) | LOC: WOUND 12:54 | PROVIDERS: PCP Family Medicine; Visit Provider Nurse Practitioner Family | DX: L89.314 Pressure ulcer of right buttock, stage 4 (principal); L89.613 Pressure ulcer of right heel, stage 3; L89.893 Pressure ulcer of other site, stage 3; I73.9 Peripheral vascular disease, unspecified; R26.9 Unspecified abnormalities of gait and mobility; S14.155S Other incomplete lesion at C5 level of cervical spinal cord, sequela; G82.20 Paraplegia, unspecified; Z99.3 Dependence on wheelchair | CPT/HCPCS: 15271; 15275; Q4158 ==